=== PATIENT | male | born 1955 | race Caucasian/White ===

== ENCOUNTER 2018-03-31 14:35 | Inpatient (IN) | payer BC ==
[~2018-03-31] VITALS: Ht 160 cm; Wt 63.6 kg
[~2018-03-31 14:35] MED LIST: CARV6.2579 NGT; FLORANEX PO; FOLI-49 PO; FURO20TA3 PO; LOSA25TA2 PO; METR500T PO; MULTI PO; PANT40TA4 PO; SPIR25TA PO; THIA100T56 PO
--- NOTE | 2018-03-31 14:47 | ERD ---
ER Documentation Chief Complaint Chief Complaint HPI This is a 62-year-old bedbound trach to vent dependent full code male that prese nts to the emergency department by EMS from [facility]. Upon review of patient's previous medical records he was admitted to [facility] on March 08, 2018 for signs of alcohol withdrawal syndrome and anoxic brain injury. He was also treated that time for pneumonia. The medical records that I reviewed from the hospital indicated the patient has cardiomyopathy chronic ethanol abuse. [facility]. Just prior to arrival EMS was called as the patient appeared to have a significant amount of blood present within the oropharynx. Nurses after attempted suctioning with no improvement of his symptoms. Nursing staff did indicate that the patient has been picking at the inside of his mouth which they felt had started the bleeding. There is no coughing choking or gagging episode. The patient has not had any recent fever shaking or chills. ROS All systems reviewed and are negative except as per history of present illness. Medications Home Meds Reported Medications Cran/Vitc/Mannose/Inulin/Brom (Uti-Stat Liquid) 3,875 Mg/30 Ml Liquid, 3875 MG GTB DAILY 03/31/18 Ascorbic Acid* (Vitamin C*) 500 Mg Capsule.sa, 500 MG GTB DAILY, CAP 03/31/18 Zinc Sulfate* (Zinc Sulfate*) 220 Mg Tablet, 220 MG GTB DAILY, TAB 03/31/18 Acetaminophen* (Acetaminophen*) 650 Mg Tablet, 650 MG GTB Q4 PRN for MILD PAIN LEVEL 1-3, #30 TAB AND FEVER 03/31/18 Acetaminophen* (Acetaminophen*) 500 MG Extra Strength Tablet, 1000 MG GTB Q4 PRN for MODERATE PAIN LEVEL 4-6, TAB 03/31/18 Acetaminophen* (Acetaminophen*) 325 Mg Tablet, 650 MG GTB TRACH CHANGE PRN for PAIN, #30 TAB GIVE 30 MIN PRIOR TO CHANGE 03/31/18 Spironolactone* (Aldactone*) 25 Mg Tablet, 25 MG GTB DAILY, #30 TAB 03/31/18 Multivit/Ca Carb/B Cmplx/Fa* (Sofy-Sandoval*) 1 Tab Tab, 1 TAB GTB DAILY, TAB 03/31/18 Hydrocodone/Acetaminophen ([place] 5-325 Tablet) 1 Each Tablet, 1 EACH GTB BID, TAB 03/31/18 Midodrine* (Midodrine*) 5 Mg Tablet, 5 MG GTB BID, TAB HOLD FOR SBP ABOVE 110 03/31/18 Na Phos,M-B/Na Phos,Di-Ba (ENEMA [id number]) 133 Ml Enema, 133 ML RC EVERY TWO DAYS PRN for CONSTIPATION, ENEMA 03/31/18 Bisacodyl (Dulcolax) 10 Mg Supp.rect, 10 MG RC DAILY PRN for CONSTIPATION, SUPP.RECT 03/31/18 Carvedilol* (Carvedilol*) 25 Mg Tablet, 25 MG GTB BID, #60 TAB HOLD FOR SBP BELOW 100 OR HR BELOW 50 03/31/18 Albuterol Sulfate* (Albuterol Sulfate* Neb) 0.083%-3 Ml Neb, 2.5 MG NEB Q6 PRN for WHEEZING AND SOB, #30 VIAL 03/31/18 Albuterol Sulfate* (Albuterol Sulfate* Neb) 0.083%-3 Ml Neb, 2.5 MG NEB Q3H PRN for WHEEZING AND SOB, #30 VIAL 03/31/18 Lactobacillus Acidophilus/Pect (Acidophilus-Pectin Capsule) 1 Each Capsule, 1 EACH GTB DAILY, CAP 03/31/18 Discontinued Scripts Folic Acid* (Folic Acid*) 1 Mg Tablet, 1 MG PO DAILY for 30 Days, TAB 3 Refills Prov:GUILLERMO LUNDBERG 09/24/15 Multivitamins* (Theragran*) 1 Tab Tab, 1 TAB PO DAILY for 30 Days, TAB 3 Refills Prov:GUILLERMO LUNDBERG 09/24/15 Thiamine* (Vitamin B-1*) 100 Mg Tablet, 100 MG PO DAILY for 30 Days, TAB 3 Refills Prov:GUILLERMO LUNDBERG 09/24/15 Spironolactone* (Aldactone*) 25 Mg Tablet, 25 MG PO DAILY for 30 Days, TAB 3 Refills Prov:GUILLERMO LUNDBERG 09/24/15 Pantoprazole* (Pantoprazole*) 40 Mg Tablet.dr, 40 MG PO DAILY@06 for 30 Days Prov:GUILLERMO LUNDBERG 09/24/15 Metronidazole* (Flagyl*) 500 Mg Tablet, 500 MG PO Q8 for 8 Days, TAB Prov:GUILLERMO LUNDBERG 09/24/15 Losartan Potassium* (Cozaar*) 25 Mg Tablet, 25 MG PO BID for 30 Days, TAB 3 Refills Prov:GUILLERMO LUNDBERG 09/24/15 Lactobacillus Acidoph/Bulgaricus* (Floranex*) 1 Tab Chew, 1 TAB PO BID for 30 Days, TAB 3 Refills Prov:GUILLERMO LUNDBERG 09/24/15 Furosemide* (Furosemide*) 20 Mg Tablet, 20 MG PO DAILY for 30 Days, TAB 3 Refills Prov:GUILLERMO LUNDBERG 09/24/15 Carvedilol* (Carvedilol*) 6.25 Mg Tablet, 6.25 MG NGT BID for 30 Days, TAB 3 Refills Prov:GUILLERMO LUNDBERG 09/24/15 Allergies Allergies: Coded Allergies: No Known Allergy (Unverified , 03/31/18) PMhx/Soc History of Surgery: No Anesthesia Reaction: No Hx Neurological Disorder: No Hx Respiratory Disorders: No Hx Cardiac Disorders: Yes (htn) Hx Psychiatric Problems: No Hx Miscellaneous Medical Probl: Yes (see eval note) Hx Alcohol Use: Yes Hx Substance Use: Yes Hx Tobacco Use: No Physical Exam Vitals Vital Signs Date Temp Pulse Resp B/P (MAP) Pulse Ox O2 O2 Flow FiO2 Time Delivery Rate 03/31/18 122 31 160/87 100 17:48 (111) 03/31/18 115 30 100 50 17:32 03/31/18 123 26 100 50 15:29 03/31/18 98.9 106 18 94/63 (73) 98 14:38 Physical Exam Constitutional:Well-developed. Well-nourished. HEENT:Normocephalic. Atraumatic.Pupils were equal round reactive to light. Significant amount of bright red blood present within the oropharynx. Chapped lips that were actively bleeding..No tonsillar exudates. Neck: No nuchal rigidity. No lymphadenopathy. No posterior cervical spine tenderness or step-offs. Tracheostomy site clean dry and intact with no surrounding erythremia fluctuance or induration. Respiratory: Not using accessory muscles of respiration.Lungs were clear to auscultation bilaterally. No rhonchi. No rales. No wheezing. Cardiovascular: Regular rate regular rhythm.No murmurs. No rubs were appreciated.S1, S2 normal. Distal pulses are palpable 2+ bilaterally. GI: Abdomen was soft. Nontender. Non Distended. No pulsatile abdominal masses or bruits. No rebound. No guarding. Bowel sounds were present and normal. Muscle skeletal: Muscle atrophy of the bilateral lower extremities. Patient has limited range of motion of the right upper and lower extremity but was able to flex extend at the elbow and lift his right upper extremity against gravity. Patient has no movement of the bilateral lower extremities Skin: No petechia, no purpura. No lesions on the palms or the soles of the feet. No maculopapular rash. NEURO: Patient was alert. With open eyes in response to pain. Does not follow verbal command. Nonverbal and bedbound. Result Diagram: 03/31/18 1526 03/31/18 1526 Results 24 hrs Laboratory Tests Test 03/31/18 15:26 03/31/18 15:29 White Blood Count 9.7 10^3/ul Red Blood Count 2.59 10^6/ul Hemoglobin 7.3 g/dl Hematocrit 22.8 % Mean Corpuscular Volume 88.0 fl Mean Corpuscular Hemoglobin 28.2 pg Mean Corpuscular Hemoglobin Concent 32.0 g/dl Red Cell Distribution Width 14.7 % Platelet Count 255 10^3/UL Mean Platelet Volume 10.4 fl Immature Granulocytes % 1.000 % Neutrophils % 76.7 % Lymphocytes % 3.5 % Monocytes % 11.2 % Eosinophils % 7.3 % Basophils % 0.3 % Nucleated Red Blood Cells % 0.0 /100WBC Immature Granulocytes # 0.100 10^3/ul Neutrophils # 7.4 10^3/ul Lymphocytes # 0.3 10^3/ul Monocytes # 1.1 10^3/ul Eosinophils # 0.7 10^3/ul Basophils # 0.0 10^3/ul Nucleated Red Blood Cells # 0.0 10^3/ul Prothrombin Time 15.1 Sec Prothrombin Time Ratio 1.2 INR International Normalized Ratio 1.18 Activated Partial Thromboplast Time 41.1 Sec Sodium Level 136 mmol/L Potassium Level 5.0 mmol/L Chloride Level 106 mmol/L Carbon Dioxide Level 18 mmol/L Anion Gap 12 Blood Urea Nitrogen 85 mg/dl Creatinine 1.41 mg/dl Est Glomerular Filtrat Rate mL/min 51 mL/min Glucose Level 95 mg/dl Calcium Level 8.7 mg/dl Total Bilirubin 0.0 mg/dl Direct Bilirubin 0.00 mg/dl Indirect Bilirubin 0.0 mg/dl Aspartate Amino Transf (AST/SGOT) 60 IU/L Alanine Aminotransferase (ALT/SGPT) 13 IU/L Alkaline Phosphatase 90 IU/L Troponin I < 0.012 ng/ml Total Protein 8.2 g/dl Albumin 3.5 g/dl Globulin 4.70 g/dl Albumin/Globulin Ratio 0.74 Amylase Level 720 U/L Lipase 4891 U/L POC Venous Lactate 1.1 mmol/L Current Medications Medications Dose Sig/Epi Start Time Status Last (Trade) Ordered Route PRN Stop Time Admin Dose Reason Admin Lorazepam 1 mg ONCE ONCE 03/31/18 DC 03/31/18 (Ativan) IV 17:00 03/31/18 16:56 17:01 Lorazepam 2 mg ONCE ONCE 03/31/18 DC 03/31/18 (Ativan) IV 18:00 03/31/18 17:57 18:01 Sodium 1,000 ml @ Q1H STAT 03/31/18 DC 03/31/18 Chloride 1,000 mls/hr IV 17:51 03/31/18 18:03 18:50 Ondansetron 4 mg ER BRIDGE 03/31/18 HCl (Zofran PRN IV 18:00 04/01/18 Inj) NAUSEA AND/OR 17:59 VOMITING 650 mg ER BRIDGE 03/31/18 Acetaminophen PRN PO MILD 18:00 04/01/18 (Tylenol PAIN(1-3)OR 17:59 Tab) ELEVATED TEMP Sodium 1,000 ml @ Q1H STAT 03/31/18 DC Chloride 1,000 mls/hr IV 17:58 03/31/18 18:57 1,000 mg Q4 PRN PO 03/31/18 Acetaminophen MODERATE PAIN 18:00 (Tylenol LEVEL 4-6 Tab) 650 mg Q4 PRN 03/31/18 Acetaminophen GTB MILD 18:00 (Tylenol PAIN LEVEL Tab) 1-3 Albuterol 2.5 mg Q3H PRN 03/31/18 (Proventil NEB WHEEZING 18:00 0.083% (Neb)) AND SOB Albuterol 2.5 mg Q6 PRN 03/31/18 (Proventil NEB WHEEZING 18:00 0.083% (Neb)) AND SOB Ascorbic 500 mg DAILY GTB 04/01/18 Acid 09:00 (Vitamin C) Bisacodyl 10 mg DAILY PRN 03/31/18 (Dulcolax AL 18:00 Supp) CONSTIPATION Carvedilol 25 mg BID GTB 03/31/18 (Coreg) 21:00 Midodrine 5 mg BID GTB 03/31/18 (Proamatine) 21:00 Multivit/Ca 1 tab DAILY GTB 04/01/18 Carb/ B 09:00 Cmplx/FA/Pren at (Sofy-Sandoval) Zinc 220 mg DAILY GTB 04/01/18 Sulfate 09:00 (Zinc Sulfate) 1,000 ml @ Q24H IV 03/31/18 Dextrose/Sodi 40 mls/hr 18:01 um Chloride IV Flush 3 ml PER 03/31/18 (NS 3 ml) PROTOCOL IV 18:30 Ondansetron 4 mg Q6H PRN 03/31/18 HCl (Zofran IV NAUSEA 18:30 Inj) AND/OR VOMITING 650 mg Q6H PRN 03/31/18 Acetaminophen PO PAIN 18:30 (Tylenol LEVEL 1-3 OR Tab) FEVER 650 mg Q6H PRN 03/31/18 Acetaminophen [place] PAIN 18:30 (Tylenol LEVEL 1-3 OR Supp) FEVER Docusate 100 mg Q12H PRN 03/31/18 Sodium PO 18:30 (Colace) CONSTIPATION 40 mg DAILY@06 04/01/18 Pantoprazole IV 06:00 (Protonix Iv) Procedures/MDM This is a 8-year-old male with anoxic brain injury trach to vent dependent. The patient presented to the emergency department with a significant amount of blood present within the oropharynx. The patient had partial dentures that were removed on the lower aspect of the mouth by myself. It appeared that the metal had cut the lower gingiva mucosa over the region of his molars. After significant suctioning the bleeding had subsided. The patient however had multiple comorbidities with acute on chronic kidney failure. He showed signs of severe clinical dehydration was hypotensive. He received a total of 2 L boluses of normal saline and his blood pressure had significantly improved. The patient appeared very agitated did receive IV Ativan. This improved his tachycardia. The patient did not appear to have an infectious process at this time is chest radiograph was normal. However I did obtain blood cultures and urine cultures the patient has an indwelling Schwartz. He is receiving antibiotics intravenously through his right upper extremity PICC line at [facility] and the family states this was to treat a pneumonia. The patient will be admitted in serious condition under the care of Dr. Live. Dr. Darden kindly stated he would be willing to be consulted and see the patient upon admission if there is any further development of further bleeding of his gingival mucosa. Critical Care: Time: 40 minutes Treatments/Evaluations: Close monitoring and treatment of unstable vital signs, cardiorespiratory, and neurologic status, while maintaining tight balance of fluid, respiratory, and cardiac interventions. Time does not include performing any of the above billable procedures. Departure Diagnosis: Primary Impression: Active bleeding Additional Impressions: CKD (chronic kidney disease) Chronic kidney disease stage: unspecified stage Qualified Codes: N18.9 - Chronic kidney disease, unspecified Acute prerenal azotemia Condition: Serious YULIYA BEASLEY MD Mar 31, 2018 14:47
[2018-03-31] MEDS ORDERED: LACT1CAP4 GTB (16:35)
[2018-03-31] MEDS ORDERED: ALBU2.5V3 NEB ×2 (16:36)
[2018-03-31] MEDS ORDERED: BISA10SU55 RC (16:38)
[2018-03-31] MEDS ORDERED: CARV25TA79 GTB (16:38)
[2018-03-31] MEDS ORDERED: NA P133E10 RC (16:39)
[2018-03-31] MEDS ORDERED: MIDO5TAB GTB (16:40)
[2018-03-31] MEDS ORDERED: NEPH GTB (16:41)
[2018-03-31] MEDS ORDERED: HYDR-4011 GTB (16:41)
[2018-03-31] MEDS ORDERED: SPIR25TA GTB (16:42)
[2018-03-31] MEDS ORDERED: ACET-2047 GTB (16:45)
[2018-03-31] MEDS ORDERED: ACET325T45 GTB (16:45)
[2018-03-31] MEDS ORDERED: ACET-141 GTB (16:45)
[2018-03-31] MEDS ORDERED: ZINC220T GTB (16:46)
[2018-03-31] MEDS ORDERED: ASCO500C7 GTB (16:46)
[2018-03-31] MEDS ORDERED: CRAN3875 GTB (16:47)
[2018-03-31] MEDS ORDERED: LORAZEPAM 2 MG INJ IV ONE ×2 (17:00→18:00)
[2018-03-31] MEDS ORDERED: SOD CHLORIDE 0.9% 1,000 ML IV STA ×2 (17:51→17:58)
[2018-03-31] MEDS ORDERED: ALBUTEROL 0.083% (NEB) 2.5 MG/3 ML AMP NEB PRN (18:00)
[2018-03-31] MEDS ORDERED: ONDANSETRON 4 MG INJ IV PRN ×2 (18:00→18:30)
[2018-03-31] MEDS ORDERED: ACETAMINOPHEN 325 MG TAB PO PRN (18:00)
[2018-03-31] MEDS ORDERED: BISACODYL 10 MG SUPP PR PRN (18:00)
--- NOTE | 2018-03-31 18:06 | QN ---
Documentation Comment A/P VDRF ANEMIA CAREY MOUTH BLEEDING LOW EF NICMP PLAN PER ORDER GARFIELD MOREAU MD Mar 31, 2018 18:06
[2018-03-31] MEDS ORDERED: NACL 0.9% 3 ML SYG IV SCH (18:30)
[2018-03-31] MEDS ORDERED: DOCUSATE SODIUM 100 MG CAP PO PRN (18:30)
[2018-03-31] MEDS ORDERED: ACETAMINOPHEN 650 MG SUPP PR ONE (19:30)
[2018-03-31] MEDS ORDERED: MIDAZOLAM 1 MG/ML 2 ML INJ IV ONE (19:30)
--- NOTE | 2018-03-31 23:01 | HP ---
Date/Time of Note Date/Time of Note DATE: 03/31/18 TIME: 22:52 Assessment/Plan VTE Prophylaxis SCD applied (from Nsg): Yes SCD contraindicated: other Pharmacological prophylaxis: other Lines/Catheters IV Catheter Type (from Nrsg): Mid Line Assessment/Plan Hospital Course VDRF ANEMIA' CKD DILATED CARDIOMYOPATHY S/P MOUTH BLEEDING HX ALCOHOL ABUSE PLAN PRBC PER ORDER Result Diagram: 03/31/18 1526 03/31/18 1526 Results 24hrs Laboratory Tests Test 03/31/18 15:26 03/31/18 15:29 White Blood Count 9.7 # Red Blood Count 2.59 #L Hemoglobin 7.3 L Hematocrit 22.8 L Mean Corpuscular Volume 88.0 Mean Corpuscular Hemoglobin 28.2 L Mean Corpuscular Hemoglobin Concent 32.0 Red Cell Distribution Width 14.7 #H Platelet Count 255 Mean Platelet Volume 10.4 # Immature Granulocytes % 1.000 H Neutrophils % 76.7 Lymphocytes % 3.5 L Monocytes % 11.2 H Eosinophils % 7.3 H Basophils % 0.3 Nucleated Red Blood Cells % 0.0 Immature Granulocytes # 0.100 H Neutrophils # 7.4 Lymphocytes # 0.3 L Monocytes # 1.1 H Eosinophils # 0.7 H Basophils # 0.0 Nucleated Red Blood Cells # 0.0 Prothrombin Time 15.1 H Prothrombin Time Ratio 1.2 INR International Normalized Ratio 1.18 Activated Partial Thromboplast Time 41.1 H Sodium Level 136 Potassium Level 5.0 Chloride Level 106 Carbon Dioxide Level 18 L Anion Gap 12 Blood Urea Nitrogen 85 H Creatinine 1.41 H Est Glomerular Filtrat Rate mL/min 51 L Glucose Level 95 Calcium Level 8.7 Total Bilirubin 0.0 L Direct Bilirubin 0.00 Indirect Bilirubin 0.0 Aspartate Amino Transf (AST/SGOT) 60 H Alanine Aminotransferase (ALT/SGPT) 13 Alkaline Phosphatase 90 Troponin I < 0.012 Total Protein 8.2 H Albumin 3.5 Globulin 4.70 H Albumin/Globulin Ratio 0.74 Amylase Level 720 H Lipase 4891 H POC Venous Lactate 1.1 HPI/ROS Admit Date/Time Admit Date/Time Hx of Present Illness VENT DEPENDENT RES FAILURE SENT IN FOR MOUTH BLEEDING D./W FAMILY PT ENCEPHALOPATHIC ROS Subjective hx not possible: pt non-verbal PMH/Family/Social Past Medical History Medical History: congestive heart failure, coronary artery disease, hypertension, renal disease, other Medications Current Medications Ondansetron HCl (Zofran Inj) 4 mg ER BRIDGE PRN IV NAUSEA AND/OR VOMITING; Start 03/31/18 at 18:00; Stop 04/01/18 at 17:59 Acetaminophen (Tylenol Tab) 650 mg ER BRIDGE PRN PO MILD PAIN(1-3)OR ELEVATED TEMP; Start 03/31/18 at 18:00; Stop 04/01/18 at 17:59 Acetaminophen (Tylenol Tab) 1,000 mg Q4 PRN PO MODERATE PAIN LEVEL 4-6; Start 03/31/18 at 18:00 Acetaminophen (Tylenol Tab) 650 mg Q4 PRN GTB MILD PAIN LEVEL 1-3; Start 03/31/18 at 18:00 Albuterol (Proventil 0.083% (Neb)) 2.5 mg Q3H PRN NEB WHEEZING AND SOB; Start 03/31/18 at 18:00 Albuterol (Proventil 0.083% (Neb)) 2.5 mg Q6 PRN NEB WHEEZING AND SOB; Start 03/31/18 at 18:00 Ascorbic Acid (Vitamin C) 500 mg DAILY GTB ; Start 04/01/18 at 09:00 Bisacodyl (Dulcolax Supp) 10 mg DAILY PRN [place] CONSTIPATION; Start 03/31/18 at 18:00 Carvedilol (Coreg) 25 mg BID GTB ; Start 03/31/18 at 21:00 Midodrine (Proamatine) 5 mg BID GTB ; Start 03/31/18 at 21:00 Multivit/Ca Carb/ B Cmplx/FA/Prenat (Sofy-Sandoval) 1 tab DAILY GTB ; Start 04/01/18 at 09:00 Zinc Sulfate (Zinc Sulfate) 220 mg DAILY GTB ; Start 04/01/18 at 09:00 Dextrose/Sodium Chloride 1,000 ml @ 40 mls/hr Q24H IV ; Start 03/31/18 at 18:01 IV Flush (NS 3 ml) 3 ml PER PROTOCOL IV ; Start 03/31/18 at 18:30 Ondansetron HCl (Zofran Inj) 4 mg Q6H PRN IV NAUSEA AND/OR VOMITING; Start 03/31/18 at 18:30 Acetaminophen (Tylenol Tab) 650 mg Q6H PRN PO PAIN LEVEL 1-3 OR FEVER; Start 03/31/18 at 18:30 Acetaminophen (Tylenol Supp) 650 mg Q6H PRN [place] PAIN LEVEL 1-3 OR FEVER; Start 03/31/18 at 18:30 Docusate Sodium (Colace) 100 mg Q12H PRN PO CONSTIPATION; Start 03/31/18 at 18:30 Pantoprazole (Protonix Iv) 40 mg DAILY@06 IV ; Start 04/01/18 at 06:00 Coded Allergies: No Known Allergy (Unverified , 03/31/18) Past Surgical History Past Surgical Hx: no surgical history, other (PEG AND TRACHEOSTOMY) Family History Significant Family History: no pertinent family hx Social History Alcohol Use: other (HX) Smoking Status: Never smoker Exam/Review of Systems Vital Signs Vitals Vital Signs Date Temp Pulse Resp B/P (MAP) Pulse Ox O2 O2 Flow FiO2 Time Delivery Rate 03/31/18 117 30 100 40 21:11 03/31/18 147/90 [place] 20:46 (109) l Ventilato r 03/31/18 102.5 19:27 Exam Constitutional: non-verbal, other (MOUTH REDNESS+) Head: normocephalic Eyes: nl conjunctiva, EOMI Neck: supple, non-tender; No jvd, No masses, No thyromegaly Respiratory: clear to auscultation, normal air movement; No diminished breath sounds, No intercostal retraction Cardiovascular: regular rate and rhythm Gastrointestinal: soft, nl liver, spleen, non-tender, bowel sounds (+) Musculoskeletal: muscle weakness Extremities: cyanosis; No calf tenderness, No clubbing, No edema, No pitting pedal edema, No tenderness Neurological: lethargic GARFIELD MOREAU MD Mar 31, 2018 23:01
[2018-03-31] MEDS: ACETAMINOPHEN 325 MG TAB GTB PRN (23:41)
[2018-04-01] VITALS (32 sets, daily range): BP systolic 78–114; BP diastolic 50–85; PULSE 78–116; RESP 17–36; Ht 160 cm; Wt 63.6 kg
[2018-04-01] MEDS: MIDODRINE 5 MG TAB GTB SCH ×3 (01:04→21:42)
[2018-04-01] MEDS ORDERED: VANCOMYCIN 1 GM in SOD CHLORIDE 0.9% 250 ML IVPB ONE (01:30)
[2018-04-01] MEDS ORDERED: VANCOMYCIN 1 GM in 250 ML IVPB ONE (02:30)
[2018-04-01] MEDS: PANTOPRAZOLE 40 MG INJ IV SCH (05:46)
[2018-04-01] MEDS: DEXTROSE 5%-0.45% NACL 1,000 ML IV SCH ×3 (05:46→21:50)
[2018-04-01] MEDS ORDERED: CEFTRIAXONE 1 GM/50 ML (PMX) 50 ML IVPB SCH (09:00)
[2018-04-01] MEDS: MULTIVIT/CA CARB/B CMPLX/FA TAB GTB SCH (09:45)
[2018-04-01] MEDS: ZINC SULFATE 220 MG CAP GTB SCH (09:45)
[2018-04-01] MEDS ORDERED: INFLUENZA VIRUS VACCINE 0.5 ML (DISPENSING) IM* ONE (10:00)
[2018-04-01] MEDS: ASCORBIC ACID 500 MG TAB GTB SCH (10:30)
[2018-04-01] MEDS ORDERED: SOD CHLORIDE 0.9% 250 ML IV* ONE (12:45)
[2018-04-01] MEDS ORDERED: VANCOMYCIN IV PER PHARMACY XX SCH (13:00)
[2018-04-01] MEDS ORDERED: NA POLYST SULFON 15 GM/60 ML BTL PO ONE (13:00)
--- NOTE | 2018-04-01 13:05 | PN ---
Date/Time of Note Date/Time of Note DATE: 04/01/18 TIME: 12:58 Assessment/Plan VTE Prophylaxis [place] [facility] risk: 8 [place]CD [place] [facility] Yes Pharmacological prophylaxis: NA/contraindicated Pharm contraindication: low risk/ambulating Lines/Catheters [facility] PICC Line Central line still needed: Yes Urinary Cath still in place: Yes Reason Cath still needed: urinary retention Assessment/Plan Hospital Course 62 y/o with # Oral bleeding # Fevers with hx Pneumonia +UTI and ? Pancreatitis # Blood loss anemia due to #1 # VDRF # CKD #DILATED CARDIOMYOPATHY # HX ALCOHOL ABUSE Plan - prbc - panculture - iv abx with vanco/cefepime - PICC line infection? - id consult - dr jimenez ENT CALLED - pul consult> vent management - no blood thinners - npo/iv fluids - kayexate Result Diagram: 04/01/18 0555 04/01/18 0555 Results 24hrs Laboratory Tests Test 03/31/18 15:26 03/31/18 15:29 04/01/18 01:42 04/01/18 05:55 White Blood Count 9.7 # 11.4 H Red Blood Count 2.59 #L 2.45 L Hemoglobin 7.3 L 6.9 *L Hematocrit 22.8 L 21.8 L Mean Corpuscular 88.0 89.0 Volume Mean Corpuscular 28.2 L 28.2 L Hemoglobin Mean Corpuscular 32.0 31.7 L Hemoglobin Concent Red Cell 14.7 #H 14.6 H Distribution Width Platelet Count 255 238 Mean Platelet 10.4 # 10.3 Volume Immature 1.000 H 1.600 H Granulocytes % Neutrophils % 76.7 85.7 H Lymphocytes % 3.5 L 2.8 L Monocytes % 11.2 H 5.8 Eosinophils % 7.3 H 3.9 Basophils % 0.3 0.2 Nucleated Red 0.0 0.0 Blood Cells % Immature 0.100 H 0.180 H Granulocytes # Neutrophils # 7.4 9.8 H Lymphocytes # 0.3 L 0.3 L Monocytes # 1.1 H 0.7 Eosinophils # 0.7 H 0.4 Basophils # 0.0 0.0 Nucleated Red 0.0 0.0 Blood Cells # Prothrombin Time 15.1 H Prothrombin Time 1.2 Ratio INR International 1.18 Normalized Ratio Activated 41.[address] Time Sodium Level 136 139 Potassium Level 5.0 5.7 H Chloride Level 106 115 H Carbon Dioxide 18 L 16 L Level Anion Gap 12 8 Blood Urea 85 H 77 H Nitrogen Creatinine 1.41 H 1.29 H Est Glomerular 51 L 57 L Filtrat Rate mL/min Glucose Level 95 102 Calcium Level 8.7 8.5 Total Bilirubin 0.0 L 0.0 L Direct Bilirubin 0.00 0.00 Indirect Bilirubin 0.0 0.0 Aspartate Amino 60 H 63 H Transf (AST/SGOT) Alanine 13 13 Aminotransferase ( ALT/SGPT) Alkaline 90 83 Phosphatase Troponin I < 0.012 Total Protein 8.2 H 7.9 Albumin 3.5 3.3 Globulin 4.70 H 4.60 H Albumin/Globulin 0.74 0.71 Ratio Amylase Level 720 H Lipase 4891 H POC Venous Lactate 1.1 Urine Color YELLOW Urine Clarity SLIGHTLY CLOUDY A Urine pH 5.0 Urine Specific 1.011 [place] Urine Ketones NEGATIVE Urine Nitrite NEGATIVE Urine Bilirubin NEGATIVE Urine Urobilinogen NEGATIVE Urine Leukocyte NEGATIVE Esterase Urine Microscopic > 182 H RBC Urine Microscopic 17 H WBC Urine Bacteria FEW A Urine Mucus FEW A Urine Yeast MODERATE A (Budding) Urine Hemoglobin 3+ H Urine Glucose NEGATIVE Urine Total 1+ H Protein Segmented 74 Neutrophils % (Manual) Band Neutrophils % 17 H (Manual) Lymphocytes % 2 L (Manual) Monocytes % 2 (Manual) Eosinophils % 4 (Manual) Metamyelocytes % 1 H (manual) Neutrophils # 8.7 H (Manual) Band Neutrophils # 1.9 H Lymphocytes 0.2 L (Manual) Monocytes # 0.2 L (Manual) Metamyelocytes # 0.1 H Platelet Estimate NORMAL Giant Platelets 1 H Polychromasia 1+ Anisocytosis 1+ Microcytosis 1+ Spherocytes 1+ Hemoglobin A1c 5.9 Subjective 24 Hr Interval Summary Free Text/Dictation Pt is tachynic noted to have bloody drainage still from mouth fevers Exam/Review of Systems Vital Signs Vitals Vital Signs Date Temp Pulse Resp B/P (MAP) Pulse Ox O2 O2 Flow FiO2 Time Delivery Rate 04/01/18 100 12:56 04/01/18 98.3 27 114/75 100 11:19 (88) 04/01/18 30 11:15 04/01/18 Mechanical 02:45 Ventilator Intake and Output 03/31/18 03/31/18 04/01/18 1414:59 22:59 06:59 IntakeIntake Total 330 ml BalanceBalance 330 ml Exam Constitutional:Well-developed. Well-nourished., tachpnic HEENT:Normocephalic. Atraumatic.Pupils were equal round reactive to light. Significant amount of bright red blood present within the oropharynx. Chapped lips that were actively bleeding..+old dried blood around lips Neck: . Tracheostomy site clean dry and intact Respiratory: lungs clear Cardiovascular: tachycardic GI: Abdomen was soft. Nontender. Non Distended. No pulsatile abdominal masses or bruits. No rebound. No guarding. Bowel sounds were present and normal. Muscle skeletal: Muscle atrophy of the bilateral lower extremities. Patient has limited range of motion of the right upper and lower extremity but was able to flex extend at the elbow and lift his right upper extremity against gravity. Patient has no movement of the bilateral lower extremities Medications Medications Current Medications Ondansetron HCl (Zofran Inj) 4 mg ER BRIDGE PRN IV NAUSEA AND/OR VOMITING; Start 03/31/18 at 18:00; Stop 04/01/18 at 17:59 Acetaminophen (Tylenol Tab) 650 mg ER BRIDGE PRN PO MILD PAIN(1-3)OR ELEVATED TEMP; Start 03/31/18 at 18:00; Stop 04/01/18 at 17:59 Acetaminophen (Tylenol Tab) 1,000 mg Q4 PRN PO MODERATE PAIN LEVEL 4-6; Start 03/31/18 at 18:00 Acetaminophen (Tylenol Tab) 650 mg Q4 PRN GTB MILD PAIN LEVEL 1-3 Last administered on 03/31/18at 23:41; Admin Dose 650 MG; Start 03/31/18 at 18:00 Albuterol (Proventil 0.083% (Neb)) 2.5 mg Q3H PRN NEB WHEEZING AND SOB; Start 03/31/18 at 18:00 Albuterol (Proventil 0.083% (Neb)) 2.5 mg Q6 PRN NEB WHEEZING AND SOB; Start 03/31/18 at 18:00 Ascorbic Acid (Vitamin C) 500 mg DAILY GTB Last administered on 04/01/18at 10:30; Admin Dose 500 MG; Start 04/01/18 at 09:00 Bisacodyl (Dulcolax Supp) 10 mg DAILY PRN [place] CONSTIPATION; Start 03/31/18 at 18:00 Carvedilol (Coreg) 25 mg BID GTB Last administered on 04/01/18 09:46; Admin Dose 25 MG; Start 03/31/18 at 21:00 Midodrine (Proamatine) 5 mg BID GTB Last administered on 04/01/18 09:46; Admin Dose 5 MG; Start 03/31/18 at 21:00 Multivit/Ca Carb/ B Cmplx/FA/Prenat (Sofy-Sandoval) 1 tab DAILY GTB Last administered on 04/01/18 09:45; Admin Dose 1 TAB; Start 04/01/18 at 09:00 Zinc Sulfate (Zinc Sulfate) 220 mg DAILY GTB Last administered on 04/01/18at 09:45; Admin Dose 220 MG; Start 04/01/18 at 09:00 Dextrose/Sodium Chloride 1,000 ml @ 40 mls/hr Q24H IV Last administered on 04/01/18 05:46; Admin Dose 40 MLS/HR; Start 03/31/18 at 18:01 IV Flush (NS 3 ml) 3 ml PER PROTOCOL IV ; Start 03/31/18 at 18:30 Ondansetron HCl (Zofran Inj) 4 mg Q6H PRN IV NAUSEA AND/OR VOMITING; Start 03/31/18 at 18:30 Acetaminophen (Tylenol Tab) 650 mg Q6H PRN PO PAIN LEVEL 1-3 OR FEVER; Start 03/31/18 at 18:30 Acetaminophen (Tylenol Supp) 650 mg Q6H PRN [place] PAIN LEVEL 1-3 OR FEVER; Start 03/31/18 at 18:30 Docusate Sodium (Colace) 100 mg Q12H PRN [place] CONSTIPATION; Start 03/31/18 at 18:30 Pantoprazole (Protonix Iv) 40 mg DAILY@06 IV Last administered on 04/01/18at 05:46; Admin Dose 40 MG; Start 04/01/18 at 06:00 Vancomycin HCl (Vanco Iv Per Pharmacy) VANCOMYCIN PER PHARMACY PER PROTOCOL XX ; Start 04/01/18 at 13:00 Cefepime HCl 50 ml @ 100 mls/hr Q12 IVPB ; Start 04/01/18 at 21:00 Sodium Polystyrene Sulfonate (Kayexalate) 30 gm ONCE ONCE PO ; Start 04/01/18 at 13:00; Stop 04/01/18 at 13:01; Status TAMARA HUMPHREY MD Apr 01, 2018 13:05
[2018-04-01] MEDS ORDERED: ACETAMINOPHEN 325 MG TAB GTB ONE (13:30)
--- NOTE | 2018-04-01 14:59 | CONS ---
DATE OF ADMISSION: 03/31/2018 DATE OF CONSULTATION: 04/01/2018 TYPE OF CONSULTATION: Infectious disease. REASON FOR CONSULTATION: Antibiotic management. HISTORY OF PRESENT ILLNESS: Juan Manuel Penn is a 62-year-old male who comes in with numerous problem s and is being seen for antibiotic management. Past problems include: 1. Ventilator-dependent respiratory failure. 2. Status post tracheostomy. 3. The patient was admitted to [facility] on 03/08 for alcohol withdrawal syndrome. 4. Anoxic brain injury. 5. Pneumonia. 6. Cardiomyopathy. Patient is residing in [facility]. Patient appeared to have a sig nificant amount of blood present within the oropharynx and therefore he was sent to the Emergency [facility]. He has not had fever or chills. Nursing staff indicated that the patient had been picking of the inside of his mouth which they felt may have started the bleeding. On admission, white count 9.7, H and H 7.3 and 22.8, platelet count 255,000. BUN and creatinine 85/1 .4. PAST MEDICAL HISTORY: OPERATIONS: Status post tracheostomy. FAMILY HISTORY: Noncontributory. SOCIAL HISTORY: He does not smoke, drink or abused drugs although in the past he had alcohol abuse, substance abuse, but he does not smoke. ALLERGIES: None to penicillin, sulfa or foods. MEDICATIONS: Per chart. REVIEW OF SYSTEMS: Noncontributory. PHYSICAL EXAMINATION: GENERAL: The patient is well-developed, well-nourished male who is essentially nonverbal, in no acut e distress. VITAL SIGNS: Stable. He is afebrile. SKIN: Without generalized rash. HEENT: Within normal limits. NECK: Tracheostomy in place. Site is clean and dry. Lymph nodes, none palpable. CHEST: Decreased breath sounds at the bases. HEART: Without murmur or gallop. ABDOMEN: Soft and nontender, without organosplenomegaly or masses. EXTREMITIES: Without cyanosis, clubbing, or edema. He has muscle atrophy in lower extremities bilat erally. RECTAL AND GENITAL: Deferred. NEUROLOGIC: No focal neurological abnormality. The patient is nonverbal, does not follow verbal com mands and is bedbound. IMPRESSION AND PLAN: The patient is a 62-year-old male with anoxic brain damage and is ventilator de pendent. He had partial dentures that were removed from the lower aspect of the mouth. The metal massey d cut to the lower gingival mucosa over the region of his molars, bleeding subsided after suctioning; however, he has acute on chronic renal failure. He has clinical dehydration and hypotension. He r eceived 2 liters of normal saline. His chest x-ray was normal. Blood cultures were done. Urine cul tures were done. He is receiving antibiotics through a PICC line to treat the pneumonia. His chest x-ray currently is relatively clear. He has had fevers though currently he is afebrile. He has urin irena catheter in place for urinary retention. He was pancultured. He is placed on IV antibiotics wit h vancomycin and cefepime. His blood cultures are pending. White count is 11.4 today. We will awai t the results of his blood cultures, continue him on vancomycin and cefepime as per Dr. Rebollar. I wi ll dictate my findings to Dr. Moreau and Dr. Rebollar. We will await culture reports. Dictated By: FRANCK LOZANO MD, JD/MELISA Conf#: [id number] DID#: [id number] CC: GARFIELD MOREAU MD;*EndCC*
[2018-04-01] MEDS ORDERED: TOBRAMYCIN 80 MG INJ IV ONE (18:00)
[2018-04-01] MEDS ORDERED: SOD CHLORIDE 0.9% 250 ML IV ONE (18:00)
[2018-04-01] MEDS ORDERED: SOD CHLORIDE 0.9% 500 ML IV ONE (19:30)
[2018-04-01] MEDS ORDERED: NORepinephrine 8MG/250 ML (PMX 250 ML ONE (19:49)
[2018-04-01] MEDS ORDERED: TOBRAMYCIN 100 MG in SOD CHLORIDE 0.9% 50 ML IVPB SCH (20:00)
[2018-04-01] MEDS ORDERED: NORepinephrine 8MG/250 ML (PMX 250 ML IV SCH (21:00)
[2018-04-01] MEDS: LORAZEPAM 4 MG/ML VIAL IV PRN (21:44)
[2018-04-01] MEDS: ACETAMINOPHEN 650 MG SUPP PR PRN (21:44)
[2018-04-01] MEDS: CEFEPIME 1GM/50 ML (PMX) 50 ML IVPB SCH (21:44)
[2018-04-02] VITALS (41 sets, daily range): BP systolic 84–150; BP diastolic 62–98; PULSE 68–140; RESP 13–37
[2018-04-02] MEDS ORDERED: VANCOMYCIN 1.25 GM in SOD CHLORIDE 0.9% 250 ML IVPB SCH ×2
--- NOTE | 2018-04-02 00:03 | CONS ---
DATE OF ADMISSION: 03/31/2018 DATE OF CONSULTATION: 04/01/2018 SERVICE: Otolaryngology. REASON FOR CONSULTATION: Oral bleeding. CONSULTING PHYSICIAN: Dr. Reblolar. CHIEF COMPLAINT: Oral bleeding. HISTORY OF PRESENT ILLNESS: This is a 62-year-old gentleman status post tracheotomy with history of anoxic brain injury, pneumonia, and cardiomyopathy who has recently been treated for alcohol withdrawal syndrome and resides in [facility]. The patient was noted to have bleeding from the mouth and was sent to the emergency room for further assessment. In discussion with the family, they report that procedures were being done in regards to his dentures, and the lower partials produced a cut of the gingival mucosa. The bleeding has subsequently subsided. There is concern due to some bloody secretions in the tracheostomy that require further evaluation. Prior to my evaluation this evening, the patient was transferred to the intensive care unit due to hypotension. The patient is otherwise nonverbal and details are gathered in the patient's electronic medical record. PAST MEDICAL HISTORY: 1. Ventilator-dependent respiratory failure. 2. Anoxic brain injury. 3. Cardiomyopathy. 4. Pneumonia. 5. Chronic kidney disease. 6. Anemia. 7. History of alcohol abuse. PAST SURGICAL HISTORY: Tracheotomy. FAMILY HISTORY: No pertinent family history of head and neck carcinoma. SOCIAL HISTORY: Never smoked. Alcohol use. ALLERGIES: NO KNOWN ALLERGIES. MEDICATIONS: 1. Vancomycin. 2. Cefepime. 3. Norepinephrine. 4. Lorazepam. 5. Morphine. 6. Tobramycin 7. Pantoprazole 8. Carvedilol. 9. Midodrine. 10. Zofran. 11. Tylenol. 12. Colace. 13. Albuterol. 14. Bisacodyl. REVIEW OF SYSTEMS: Cannot be completed, non-verbal. PHYSICAL EXAMINATION: The patient underwent a physical examination as described below. The pertinent positive and negative findings are summarized after the description of the examination. Constitutional: The patient's developmental and nutritional status were assessed. The patient's voice quality was assessed. Head and Face: The head and face were inspected for deformities. The salivary glands were palpated. Facial strength was assessed bilaterally. Eyes: Extraocular movements and primary gaze alignment were assessed. Ears, Nose, Mouth & Throat: The external auditory canals and pinnae were examined. The nasal septum, mucosa, and turbinates were inspected by anterior rhinoscopy. The lips, teeth, and gums were examined for abnormalities. The oral mucosa, tongue, palate, tonsils, lateral and posterior pharynx were inspected for the presence of asymmetry or mucosal lesions. Neck: The tracheal position was noted, and the neck was palpated to determine if there were any asymmetries, abnormal neck masses, or thyromegaly. Respiratory: The nature of the breathing and chest expansion/symmetry was observed. Cardiovascular: The patient was examined to determine the presence of any edema or jugular venous distension. Abdomen: The contour of the abdomen was noted. Lymphatic: The patient was examined for supraclavicular lymphadenopathy. Musculoskeletal: The patient was inspected for the presence of skeletal deformities. Extremities: The extremities were examined for any clubbing or cyanosis. Skin: The skin was examined for inflammatory or neoplastic conditions. Neurologic: The patient's orientation, mood, and affect were noted. The cranial nerve functions were examined (II-VII, IX-XII) Pertinent positive and negative findings on physical examination: EARS: AU pinnae within normal limits. No otorrhea. External auditory canals clear. Tympanic membranes intact. NOSE: Grossly normal external appearance. Normal mucosa. No epistaxis or rhinorrhea. ORAL CAVITY/OROPHARYNX: Dry crusted blood mostly along the lower lip with a small amount along the upper lip and lower teeth. Poor dentition. Moist mucous membranes. Tongue midline. Uvula midline. No palate deviation. No mucosal lesions observed. NECK: Tracheostomy tube secured with soft ties and connected to the ventilator circuit. No obvious swelling or adenopathy. LABORATORY DATA: WBC 11.4, hemoglobin 6.9, hematocrit 21.8, platelet 238. Other lab values reviewed. DIAGNOSTIC IMAGING: Chest x-ray, 03/31/2018. Cardiomegaly, otherwise unremarkable chest x-ray. PROCEDURE: Tracheobronchoscopy through established tracheostomy. INDICATIONS: Tracheostomy dependence; bloody tracheostomy secretions. PROCEDURAL DETAIL: A fiberoptic bronchoscope was passed through the tracheotomy into the trachea. Abnormalities were noted. The kathy was visualized, followed by further insertion of the scope to the main stem bronchus level to evaluate the bronchi as well as the orifices of the subsegmental bronchi. Having completed this, the operation was completed and the scope withdrawn atraumatically. SURGEON: Meet Leon MD, S. ENDOSCOPIC FINDINGS: TRACHEOSTOMA: Well maintained, clean, dry, no granulation tissue. TRACHEA: Patent, no granulation tissue, trace bloody secretions. KATHY: Sharp, no lesion, minimal secretions. MAIN STEM BRONCHI: Free of obstruction, minimal secretions. COMPLICATIONS: None. ESTIMATED BLOOD LOSS: None. PROCEDURE NOTE: INDICATIONS: Bleeding from mouth, assess for occult bleeding source. PROCEDURAL DETAIL: The nasal cavity was decongested with 1% phenylephrine, and anesthesia was obtained with 2% topical tetracaine. A fiberoptic endoscope was introduced transnasally. The endoscope was later withdrawn and the patient tolerated the procedure well. SURGEON: Meet Leon MD, S PROCEDURE: Fiberoptic laryngoscopy. ENDOSCOPIC FINDINGS: NASOPHARYNX: Eustachian tube orifices clear. Nasopharynx clear. No bleeding. OROPHARYNX: Base of tongue, vallecula, and pharyngeal pool clear. HYPOPHARYNX: Post-cricoid, piriform sinuses, and posterior pharyngeal wall without apparent lesion. Moderate amount of secretions. No bleeding noted. SUPRAGLOTTIS: Arytenoid, A-E folds, and epiglottis with moderate amount of secretions. GLOTTIS: View was obstructed due to secretions in the supraglottis. COMPLICATIONS: None. ESTIMATED BLOOD LOSS: None. ASSESSMENT AND PLAN: This is a 62-year-old gentleman with history of tracheostomy dependence. He had recent bleeding from the mouth, which seems to be related to manipulation of his dentures. At the time of my evaluation, the bleeding has ceased. There is dried blood along the lip which can be slowly removed with topical ointment. Endoscopy is notable for trace bloody secretions in the trachea without any active bleeding. This is expected to clear with routine tracheostomy care and suctioning. I do not anticipate that surgical intervention will be required. Thank you for this consult. Please call with any questions or concerns. Dictated By: MEET LEON MD AF/NTS Conf#: [id number] DID#: [id number] CC: GARFIELD MOREAU MD;*EndCC* MTDD
[2018-04-02] MEDS: ALTEPLASE (CATHFLO) 2 MG INJ CATHETER PRN (03:01)
[2018-04-02] MEDS: PANTOPRAZOLE 40 MG INJ IV SCH (05:59)
[2018-04-02] MEDS: CEFEPIME 1GM/50 ML (PMX) 50 ML IVPB SCH ×2 (08:21→20:39)
[2018-04-02] MEDS: MIDODRINE 5 MG TAB GTB SCH ×2 (08:21→20:39)
[2018-04-02] MEDS: MULTIVIT/CA CARB/B CMPLX/FA TAB GTB SCH (08:21)
[2018-04-02] MEDS: ZINC SULFATE 220 MG CAP GTB SCH (08:21)
[2018-04-02] MEDS: ASCORBIC ACID 500 MG TAB GTB SCH (08:21)
--- NOTE | 2018-04-02 09:09 | CONS ---
Date/Time of Note Date/Time of Note DATE: 04/02/18 TIME: 09:04 Assessment/Plan Assessment/Plan Assessment/Plan Chest x-ray showing cardiomegaly with very minimal pulmonary vascular congestion. Ventilator setting; AC of 20, tidal volume 500, PEEP of 5, 30% FiO2. Assessment and recommendations; 1. Patient with history of cardiomyopathy admitted with hypotension. Possibly related to underlying cardia myopathy. Patient however started on empiric antimicrobial coverage. 2. Anemia. 3. History of alcohol abuse. 4. Mild UTI. 5. Chronic renal insufficiency. 6. Gingival bleeding with interval resolution. No active bleeding seen. 7. Metabolic acidosis. Likely compounded by chronic renal insufficiency with interval worsening. Continue current supportive care. Monitor for any active bleeding. Monitor H&H. Obtain follow-up chest x-ray 24 hours. Monitor renal function. 40 minutes of critical care time was spent evaluating the patient. Result Diagram: 04/02/18 0444 04/02/18 0444 Results 24hrs Laboratory Tests Test 04/01/18 13:00 04/01/18 18:05 04/02/18 04:44 04/02/18 04:49 Blood Gas Blood arterial Specimen Source Arterial Blood 04/01/2018 1:10:26 Date Drawn PM Arterial Blood 7.402 pH (Temp corrected) Arterial Blood 20.6 L pCO2 (Temp correct) Arterial Blood 117.4 H pO2 (Temp corrected) Arterial Blood 12.5 L HCO3 Arterial Blood -10.8 L Base Excess Arterial Blood 98.0 Oxygen Saturatio n Brain Test ACCEPTAB Arterial Blood Left Radial Gas Puncture Site Arterial 0.3 Blood Carboxyhem oglobin Arterial Blood 0.5 Methemoglobin Blood Gas A-a O2 72.3 H Differential Oxyhemoglobin 97.2 Percent Blood Gas 37.0 Temperature Blood Gas 20.0 Respiration Rate Blood Gas Actual 36 Respiration Rate Blood Gas VENT - AC Modality FiO2 30.0 Blood Gas Tidal 500.0 Volume Blood Gas Low 5.0 PEEP Setting Blood Gas TM Notified Whom Blood Gas 04/01/2018 1:20:04 Notified Time PM Lactic Acid 1.0 Level White Blood 12.8 H Count Red Blood Count 2.98 #L Hemoglobin 8.5 #L Hematocrit 27.0 #L Mean Corpuscular 90.6 Volume Mean Corpuscular 28.5 L Hemoglobin Mean Corpuscular 31.5 L Hemoglobin Lisset nt Red Cell 14.9 H Distribution Width Platelet Count 225 Mean Platelet 10.7 H Volume Immature 1.800 H Granulocytes % Neutrophils % 76.3 Lymphocytes % 5.8 L Monocytes % 12.2 H Eosinophils % 3.5 Basophils % 0.4 Nucleated Red 0.0 Blood Cells % Immature 0.230 H Granulocytes # Neutrophils # 9.8 H Lymphocytes # 0.7 L Monocytes # 1.6 H Eosinophils # 0.5 Basophils # 0.1 Nucleated Red 0.0 Blood Cells # Sodium Level 141 Potassium Level 5.2 H Chloride Level 116 H Carbon Dioxide 13 L Level Anion Gap 12 Blood Urea 98 H Nitrogen Creatinine 2.47 #H Est Glomerular 27 L Filtrat Rate mL/min Glucose Level 106 Calcium Level 8.2 L Phosphorus Level 4.8 Magnesium Level 2.2 Total Bilirubin 0.0 L Direct Bilirubin 0.00 Indirect 0.0 Bilirubin Aspartate Amino 61 H Transf (AST/SGOT ) Alanine 14 Aminotransferase (ALT/SGPT) Alkaline 75 Phosphatase Total Protein 7.2 Albumin 3.1 L Globulin 4.10 H Albumin/Globulin 0.75 Ratio Lab Scanned BLOOD TRANSFUSIO Report N Test 04/02/18 07:00 Blood Gas Blood arterial Specimen Source Arterial Blood 04/02/2018 7:10:48 Date Drawn AM Arterial Blood 7.335 L pH (Temp corrected) Arterial Blood 26.1 L pCO2 (Temp correct) Arterial Blood 114.5 H pO2 (Temp corrected) Arterial Blood 13.6 L HCO3 Arterial Blood -11.0 L Base Excess Arterial Blood 97.7 Oxygen Saturatio n Brain Test ACCEPTAB Arterial Blood Right Radial Gas Puncture Site Arterial 0.3 Blood Carboxyhem oglobin Arterial Blood 0.5 Methemoglobin Blood Gas A-a O2 68.7 H Differential Oxyhemoglobin 96.9 Percent Blood Gas 37.0 Temperature Blood Gas 20.0 Respiration Rate Blood Gas Actual 27 Respiration Rate Blood Gas VENT - AC Modality FiO2 30.0 Blood Gas Tidal 500.0 Volume Blood Gas Low 5.0 PEEP Setting Blood Gas TM Notified Whom Blood Gas 04/02/2018 7:34:28 Notified Time AM Consultation Date/Type/Reason Admit Date/Time Date of Consultation: Apr 02, 2018 Type of Consult Pulmonary/critical care History of presenting illness; Patient is a 62-year-old male who was admitted to the hospital with hypotension from assisted. Patient has history of advanced encephalopathy and VDR F and was unable to give any history by himself whatsoever. However after being fluid resuscitated patient's hemodynamics improved and patient did not require any pressor support. By the time I saw him in ICU, patient is on ventilator via tracheostomy and is unresponsive. Patient also did not appear to be in any distress. Past medical history; 1. Dilated cardiomyopathy. 2. Chronic encephalopathy. 3. VDR F. 4. G-tube placement. 5. Anemia. 6. History of alcohol abuse. 7. Renal insufficiency. Medications; reviewed. Allergies; none. Social history; patient has been a non-smoker. History of alcohol abuse. Family history, occupational history not available. Review of systems; unable to be obtained. General exam; elderly male, on ventilator via tracheostomy, unresponsive, currently in no distress. Past Medical History Medical History: congestive heart failure, coronary artery disease, hypertension, renal disease, other Medications Current Medications Acetaminophen (Tylenol Tab) 1,000 mg Q4 PRN PO MODERATE PAIN LEVEL 4-6; Start 03/31/18 at 18:00 Acetaminophen (Tylenol Tab) 650 mg Q4 PRN GTB MILD PAIN LEVEL 1-3 Last administered on 03/31/18at 23:41; Admin Dose 650 MG; Start 03/31/18 at 18:00 Albuterol (Proventil 0.083% (Neb)) 2.5 mg Q3H PRN NEB WHEEZING AND SOB; Start 03/31/18 at 18:00 Albuterol (Proventil 0.083% (Neb)) 2.5 mg Q6 PRN NEB WHEEZING AND SOB; Start 03/31/18 at 18:00 Ascorbic Acid (Vitamin C) 500 mg DAILY GTB Last administered on 04/02/18at 08:21; Admin Dose 500 MG; Start 04/01/18 at 09:00 Bisacodyl (Dulcolax Supp) 10 mg DAILY PRN ME CONSTIPATION; Start 03/31/18 at 18:00 Carvedilol (Coreg) 25 mg BID GTB Last administered on 04/01/18at 09:46; Admin Dose 25 MG; Start 03/31/18 at 21:00 Midodrine (Proamatine) 5 mg BID GTB Last administered on 04/02/18at 08:21; Admin Dose 5 MG; Start 03/31/18 at 21:00 Multivit/Ca Carb/ B Cmplx/FA/Prenat (Sofy-Sandoval) 1 tab DAILY GTB Last administered on 04/02/18 08:21; Admin Dose 1 TAB; Start 04/01/18 at 09:00 Zinc Sulfate (Zinc Sulfate) 220 mg DAILY GTB Last administered on 04/02/18 08:21; Admin Dose 220 MG; Start 04/01/18 at 09:00 Dextrose/Sodium Chloride 1,000 ml @ 70 mls/hr [id number] IV Last administered on 04/01/18 21:50; Admin Dose 70 MLS/HR; Start 03/31/18 at 18:01 IV Flush (NS 3 ml) 3 ml PER PROTOCOL IV ; Start 03/31/18 at 18:30 Ondansetron HCl (Zofran Inj) 4 mg Q6H PRN IV NAUSEA AND/OR VOMITING; Start 03/31/18 at 18:30 Acetaminophen (Tylenol Tab) 650 mg Q6H PRN PO PAIN LEVEL 1-3 OR FEVER; Start 03/31/18 at 18:30 Acetaminophen (Tylenol Supp) 650 mg Q6H PRN ME PAIN LEVEL 1-3 OR FEVER Last administered on 04/01/18at 21:44; Admin Dose 650 MG; Start 03/31/18 at 18:30 Docusate Sodium (Colace) 100 mg Q12H PRN PO CONSTIPATION; Start 03/31/18 at 18:30 Pantoprazole (Protonix Iv) 40 mg DAILY@06 IV Last administered on 04/02/18 05:59; Admin Dose 40 MG; Start 04/01/18 at 06:00 Vancomycin HCl (Vanco Iv Per Pharmacy) VANCOMYCIN PER PHARMACY PER PROTOCOL XX ; Start 04/01/18 at 13:00 Cefepime HCl 50 ml @ 100 mls/hr Q12 IVPB Last administered on 04/02/18 08:21; Admin Dose 100 MLS/HR; Start 04/01/18 at 21:00 Vancomycin HCl 1.25 gm/Sodium Chloride 250 ml @ 83.333 mls/ hr Q24H IVPB Last administered on 04/01/18at 23:59; Admin Dose 83.333 MLS/HR; Start 04/02/18 at 00:00 Norepinephrine 250 ml @ 1.875 mls/ hr TITRATE IV ; Start 04/01/18 at 21:00 Lorazepam (Ativan) 1 mg Q4H PRN IV restless, agitation, anxiety Last administered on 04/01/18at 21:44; Admin Dose 1 MG; Start 04/01/18 at 21:00 Morphine Sulfate (morphine SULFATE (PF)) 2 mg Q4H PRN IV PAIN LEVEL 6-10; Start 04/01/18 at 21:00 Alteplase, Recombinant (Cathflo (Activase)) 2 mg MAY REPEAT X1 PRN CATHETER IF CATHETER REMAINS OCCULUDED Last administered on 04/02/18at 03:01; Admin Dose 2 MG; Start 04/01/18 at 21:00 Allergies: Coded Allergies: No Known Allergy (Unverified , 03/31/18) Past Surgical History Past Surgical Hx: no surgical history, other (PEG AND TRACHEOSTOMY) Social History Alcohol Use: other (HX) Smoking Status: Never smoker Exam/Review of Systems Vital Signs Vitals Vital Signs Date Temp Pulse Resp B/P (MAP) Pulse Ox O2 O2 Flow FiO2 Time Delivery Rate 04/02/18 30 08:01 04/02/18 78 08:00 04/02/18 98.6 18 105/71 100 Mechanical 08:00 (82) Ventilator Intake and Output 04/01/18 04/01/18 04/02/18 1515:00 23:00 07:00 IntakeIntake Total 825 ml 740 ml OutputOutput Total 250 ml 675 ml BalanceBalance 575 ml 65 ml Exam H EENT exam; supple neck, positive JVD. No lymphadenopathy. Midline trachea. Tracheostomy in place. Insertion site is clean. Patient has fair dentition. There is excoriation involving right lower lip. No active bleeding seen. Pupils are small bilaterally. No neck masses. Chest exam; diminished but clear breath sounds. S1-S2 audible, no murmurs. Regular rhythm. Abdomen exam; soft, G-tube in place. Bowel sounds audible. No organomegaly. Extremity exam; no peripheral edema. CHIEF OF STAFF DOCTOR exam; patient remains unresponsive. Medications Medications Current Medications Acetaminophen (Tylenol Tab) 1,000 mg Q4 PRN PO MODERATE PAIN LEVEL 4-6; Start 03/31/18 at 18:00 Acetaminophen (Tylenol Tab) 650 mg Q4 PRN GTB MILD PAIN LEVEL 1-3 Last administered on 03/31/18 23:41; Admin Dose 650 MG; Start 03/31/18 at 18:00 Albuterol (Proventil 0.083% (Neb)) 2.5 mg Q3H PRN NEB WHEEZING AND SOB; Start 03/31/18 at 18:00 Albuterol (Proventil 0.083% (Neb)) 2.5 mg Q6 PRN NEB WHEEZING AND SOB; Start 03/31/18 at 18:00 Ascorbic Acid (Vitamin C) 500 mg DAILY GTB Last administered on 04/02/18 08:21; Admin Dose 500 MG; Start 04/01/18 at 09:00 Bisacodyl (Dulcolax Supp) 10 mg DAILY PRN ME CONSTIPATION; Start 03/31/18 at 18: 00 Carvedilol (Coreg) 25 mg BID GTB Last administered on 04/01/18 09:46; Admin Dose 25 MG; Start 03/31/18 at 21:00 Midodrine (Proamatine) 5 mg BID GTB Last administered on 04/02/18 08:21; Admin Dose 5 MG; Start 03/31/18 at 21:00 Multivit/Ca Carb/ B Cmplx/FA/Prenat (Sofy-Sandoval) 1 tab DAILY GTB Last a dministered on 04/02/18 08:21; Admin Dose 1 TAB; Start 04/01/18 at 09:00 Zinc Sulfate (Zinc Sulfate) 220 mg DAILY GTB Last administered on 04/02/18 08:21; Admin Dose 220 MG; Start 04/01/18 at 09:00 Dextrose/Sodium Chloride 1,000 ml @ 70 mls/hr [id number] IV Last administered on 04/01/18 21:50; Admin Dose 70 MLS/HR; Start 03/31/18 at 18:01 IV Flush (NS 3 ml) 3 ml PER PROTOCOL IV ; Start 03/31/18 at 18:30 Ondansetron HCl (Zofran Inj) 4 mg Q6H PRN IV NAUSEA AND/OR VOMITING; Start 03/31/18 at 18:30 Acetaminophen (Tylenol Tab) 650 mg Q6H PRN PO PAIN LEVEL 1-3 OR FEVER; Start 03/31/18 at 18:30 Acetaminophen (Tylenol Supp) 650 mg Q6H PRN ME PAIN LEVEL 1-3 OR FEVER Last administered on 04/01/18 21:44; Admin Dose 650 MG; Start 03/31/18 at 18:30 Docusate Sodium (Colace) 100 mg Q12H PRN PO CONSTIPATION; Start 03/31/18 at 18:30 Pantoprazole (Protonix Iv) 40 mg DAILY@06 IV Last administered on 04/02/18 05:59; Admin Dose 40 MG; Start 04/01/18 at 06:00 Vancomycin HCl (Vanco Iv Per Pharmacy) VANCOMYCIN PER PHARMACY PER PROTOCOL XX ; Start 04/01/18 at 13:00 Cefepime HCl 50 ml @ 100 mls/hr Q12 IVPB Last administered on 04/02/18 08:21; Admin Dose 100 MLS/HR; Start 04/01/18 at 21:00 Vancomycin HCl 1.25 gm/Sodium Chloride 250 ml @ 83.333 mls/ hr Q24H IVPB Last administered on 04/01/18at 23:59; Admin Dose 83.333 MLS/HR; Start 04/02/18 at 00:00 Norepinephrine 250 ml @ 1.875 mls/ hr TITRATE IV ; Start 04/01/18 at 21:00 Lorazepam (Ativan) 1 mg Q4H PRN IV restless, agitation, anxiety Last administered on 04/01/18at 21:44; Admin Dose 1 MG; Start 04/01/18 at 21:00 Morphine Sulfate (morphine SULFATE (PF)) 2 mg Q4H PRN IV PAIN LEVEL 6-10; Start 04/01/18 at 21:00 Alteplase, Recombinant (Cathflo (Activase)) 2 mg MAY REPEAT X1 PRN CATHETER IF CATHETER REMAINS OCCULUDED Last administered on 04/02/18 03:01; Admin Dose 2 MG; Start 04/01/18 at 21:00 DION MAGALLANES Apr 02, 2018 09:09
--- NOTE | 2018-04-02 10:18 | PN ---
Date/Time of Note Date/Time of Note DATE: 04/02/18 TIME: 10:14 Assessment/Plan VTE [place]axis [place] [facility] [place]: 10 [place] [facility] [place] Yes Pharmacological prophylaxis: NA/contraindicated Pharm contraindication: bleeding Lines/Catheters IV Catheter Type (from [facility]): PICC Line Central line still needed: Yes Urinary Cath still in place: Yes Reason Cath still needed: urinary retention Assessment/Plan Hospital Course 62 y/o with # Oral bleeding likely due to dentures # Sepsis with Fevers with hx Pneumonia +UTI and ? Pancreatitis +multiple wounds, ucx+ lisa # Blood loss anemia due to #1 # VDRF # CKD with worseing renal failure # Metabolic acidosis #DILATED CARDIOMYOPATHY # HX ALCOHOL ABUSE Plan - change fluids with bicarb - bld cx neg so far - iv abx with vanco/cefepime, add diflucan - f/u IDr recs - id consult - Pt seen with ENT> Bleeding stopped - pul consult> vent management - no blood thinners - npo/iv fluids - cw midodrine Result Diagram: 04/02/18 0444 04/02/18 0444 Results 24hrs Laboratory Tests Test 04/01/18 13:00 04/01/18 18:05 04/02/18 04:44 04/02/18 04:49 Blood Gas Blood arterial Specimen Source Arterial Blood 04/01/2018 1:10:26 Date Drawn PM Arterial Blood 7.402 pH (Temp corrected) Arterial Blood 20.6 L pCO2 (Temp correct) Arterial Blood 117.4 H pO2 (Temp corrected) Arterial Blood 12.5 L HCO3 Arterial Blood -10.8 L Base Excess Arterial Blood 98.0 Oxygen Saturatio n Brain Test ACCEPTAB Arterial Blood Left Radial Gas Puncture Site Arterial 0.3 Blood Carboxyhem oglobin Arterial Blood 0.5 Methemoglobin Blood Gas A-a O2 72.3 H Differential Oxyhemoglobin 97.2 Percent Blood Gas 37.0 Temperature Blood Gas 20.0 Respiration Rate Blood Gas Actual 36 Respiration Rate Blood Gas VENT - AC Modality FiO2 30.0 Blood Gas Tidal 500.0 Volume Blood Gas Low 5.0 PEEP Setting Blood Gas TM Notified Whom Blood Gas 04/01/2018 1:20:04 Notified Time PM Lactic Acid 1.0 Level White Blood 12.8 H Count Red Blood Count 2.98 #L Hemoglobin 8.5 #L Hematocrit 27.0 #L Mean Corpuscular 90.6 Volume Mean Corpuscular 28.5 L Hemoglobin Mean Corpuscular 31.5 L Hemoglobin Lisset nt Red Cell 14.9 H Distribution Width Platelet Count 225 Mean Platelet 10.7 H Volume Immature 1.800 H Granulocytes % Neutrophils % 76.3 Lymphocytes % 5.8 L Monocytes % 12.2 H Eosinophils % 3.5 Basophils % 0.4 Nucleated Red 0.0 Blood Cells % Immature 0.230 H Granulocytes # Neutrophils # 9.8 H Lymphocytes # 0.7 L Monocytes # 1.6 H Eosinophils # 0.5 Basophils # 0.1 Nucleated Red 0.0 Blood Cells # Sodium Level 141 Potassium Level 5.2 H Chloride Level 116 H Carbon Dioxide 13 L Level Anion Gap 12 Blood Urea 98 H Nitrogen Creatinine 2.47 #H Est Glomerular 27 L Filtrat Rate mL/min Glucose Level 106 Calcium Level 8.2 L Phosphorus Level 4.8 Magnesium Level 2.2 Total Bilirubin 0.0 L Direct Bilirubin 0.00 Indirect 0.0 Bilirubin Aspartate Amino 61 H Transf (AST/SGOT ) Alanine 14 Aminotransferase (ALT/SGPT) Alkaline 75 Phosphatase Total Protein 7.2 Albumin 3.1 L Globulin 4.10 H Albumin/Globulin 0.75 Ratio Lab Scanned BLOOD TRANSFUSIO Report N Test 04/02/18 07:00 Blood Gas Blood arterial Specimen Source Arterial Blood 04/02/2018 7:10:48 Date Drawn AM Arterial Blood 7.335 L pH (Temp corrected) Arterial Blood 26.1 L pCO2 (Temp correct) Arterial Blood 114.5 H pO2 (Temp corrected) Arterial Blood 13.6 L HCO3 Arterial Blood -11.0 L Base Excess Arterial Blood 97.7 Oxygen Saturatio n Brain Test ACCEPTAB Arterial Blood Right Radial Gas Puncture Site Arterial 0.3 Blood Carboxyhem oglobin Arterial Blood 0.5 Methemoglobin Blood Gas A-a O2 68.7 H Differential Oxyhemoglobin 96.9 Percent Blood Gas 37.0 Temperature Blood Gas 20.0 Respiration Rate Blood Gas Actual 27 Respiration Rate Blood Gas VENT - AC Modality FiO2 30.0 Blood Gas Tidal 500.0 Volume Blood Gas Low 5.0 PEEP Setting Blood Gas TM Notified Whom Blood Gas 04/02/2018 7:34:28 Notified Time AM Subjective 24 Hr Interval Summary Free Text/Dictation Pt was transferred toICU DUE to hypotension responded to fluids Cr worse hb stable Exam/Review of Systems Vital Signs Vitals Vital Signs Date Temp Pulse Resp B/P (MAP) Pulse Ox O2 O2 Flow FiO2 Time Delivery Rate 04/02/18 30 08:01 04/02/18 78 08:00 04/02/18 98.6 18 105/71 100 Mechanical 08:00 (82) Ventilator Intake and Output 04/01/18 04/01/18 04/02/18 1515:00 23:00 07:00 IntakeIntake Total 825 ml 740 ml OutputOutput Total 250 ml 675 ml BalanceBalance 575 ml 65 ml Exam Constitutional:Well-developed. Well-nourished., tachpnic HEENT:Normocephalic. Atraumatic.Pupils were equal round reactive to light. Significant amount of bright red blood present within the oropharynx. Chapped lips that were actively bleeding..+old dried blood around lips Neck: . Tracheostomy site clean dry and intact Respiratory: lungs clear Cardiovascular: tachycardic GI: Abdomen was soft. Nontender. Non Distended. No pulsatile abdominal masses or bruits. No rebound. No guarding. Bowel sounds were present and normal. Muscle skeletal: Muscle atrophy of the bilateral lower extremities. Patient has limited range of motion of the right upper and lower extremity but was able to flex extend at the elbow and lift his right upper extremity against gravity. Patient has no movement of the bilateral lower extremities multiple wounds rt PICC Medications Medications Current Medications Acetaminophen (Tylenol Tab) 1,000 mg Q4 PRN PO MODERATE PAIN LEVEL 4-6; Start 03/31/18 at 18:00 Acetaminophen (Tylenol Tab) 650 mg Q4 PRN GTB MILD PAIN LEVEL 1-3 Last administered on 03/31/18at 23:41; Admin Dose 650 MG; Start 03/31/18 at 18:00 Albuterol (Proventil 0.083% (Neb)) 2.5 mg Q3H PRN NEB WHEEZING AND SOB; Start 03/31/18 at 18:00 Albuterol (Proventil 0.083% (Neb)) 2.5 mg Q6 PRN NEB WHEEZING AND SOB; Start 03/31/18 at 18:00 Ascorbic Acid (Vitamin C) 500 mg DAILY GTB Last administered on 04/02/18at 08:21; Admin Dose 500 MG; Start 04/01/18 at 09:00 Bisacodyl (Dulcolax Supp) 10 mg DAILY PRN [place] CONSTIPATION; Start 03/31/18 at 18:00 Carvedilol (Coreg) 25 mg BID GTB Last administered on 04/01/18at 09:46; Admin Dose 25 MG; Start 03/31/18 at 21:00 Midodrine (Proamatine) 5 mg BID GTB Last administered on 04/02/18at 08:21; Admin Dose 5 MG; Start 03/31/18 at 21:00 Multivit/Ca Carb/ B Cmplx/FA/Prenat (Sofy-Sandoval) 1 tab DAILY GTB Last administered on 04/02/18at 08:21; Admin Dose 1 TAB; Start 04/01/18 at 09:00 Zinc Sulfate (Zinc Sulfate) 220 mg DAILY GTB Last administered on 04/02/18at 08:21; Admin Dose 220 MG; Start 04/01/18 at 09:00 IV Flush (NS 3 ml) 3 ml PER PROTOCOL IV ; Start 03/31/18 at 18:30 Ondansetron HCl (Zofran Inj) 4 mg Q6H PRN IV NAUSEA AND/OR VOMITING; Start 03/31/18 at 18:30 Acetaminophen (Tylenol Tab) 650 mg Q6H PRN PO PAIN LEVEL 1-3 OR FEVER; Start 03/31/18 at 18:30 Acetaminophen (Tylenol Supp) 650 mg Q6H PRN NE PAIN LEVEL 1-3 OR FEVER Last administered on 04/01/18at 21:44; Admin Dose 650 MG; Start 03/31/18 at 18:30 Docusate Sodium (Colace) 100 mg Q12H PRN PO CONSTIPATION; Start 03/31/18 at 18:30 Pantoprazole (Protonix Iv) 40 mg DAILY@06 IV Last administered on 04/02/18at 05:59; Admin Dose 40 MG; Start 04/01/18 at 06:00 Vancomycin HCl (Vanco Iv Per Pharmacy) VANCOMYCIN PER PHARMACY PER PROTOCOL XX ; Start 04/01/18 at 13:00 Cefepime HCl 50 ml @ 100 mls/hr Q12 IVPB Last administered on 04/02/18at 08:21; Admin Dose 100 MLS/HR; Start 04/01/18 at 21:00 Norepinephrine 250 ml @ 1.875 mls/ hr TITRATE IV ; Start 04/01/18 at 21:00 Lorazepam (Ativan) 1 mg Q4H PRN IV restless, agitation, anxiety Last administered on 04/01/18at 21:44; Admin Dose 1 MG; Start 04/01/18 at 21:00 Morphine Sulfate (morphine SULFATE (PF)) 2 mg Q4H PRN IV PAIN LEVEL 6-10; Start 04/01/18 at 21:00 Alteplase, Recombinant (Cathflo (Activase)) 2 mg MAY REPEAT X1 PRN CATHETER IF CATHETER REMAINS OCCULUDED Last administered on 04/02/18at 03:01; Admin Dose 2 MG; Start 04/01/18 at 21:00 TAMARA GRAJEDA MD Apr 02, 2018 10:18
[2018-04-02] MEDS: FLUCONAZOLE 200 MG (PMX) 100 ML IVPB SCH (11:39)
[2018-04-02] MEDS: SODIUM BICARBONATE (IV ADD) 100 MEQ in DEXTROSE 5% 1,000 ML IV SCH (11:39)
--- NOTE | 2018-04-02 12:25 | CONS ---
Date/Time of Note Date/Time of Note DATE: 04/02/18 TIME: 12:25 Assessment/Plan Assessment/Plan Hospital Course No acute events overnight patient is awake noncommunicative in no distress status post fever yesterday of 101.7 current temperature 97.9 pulse 99 respirations 20 blood pressure 115/98 saturation 100 on vent WBC 12.8 H&H 8.5 and 27 platelets 225 neutrophils 76.3 BUN 98 creatinine 2.47 potassium 5.2 Indwelling: Peg, Schwartz, right upper extremity PICC line, tracheostomy Microbiology: Blood cultures since admission negative, urine culture growing Breanne albicans Antimicrobials: Fluconazole, cefepime, vancomycin Diagnostics: Chest x-ray revealed no focal consolidation vascular congestion or pleural effusion no pneumothorax. Abdominal ultrasound revealed cholelithiasis no evidence of ascites Physical examination: Chronically ill-appearing elderly man who is noncommunicative in no distress. Head atraumatic normocephalic sclera nonicteric neck is supple tracheostomy present chest rise symmetrical breath sounds diminished bases heart: S1-S2. Abdomen soft bowel sounds present. Extremities without cyanosis. Skin: Patient has multiple pressure sores he has a dry blood on the right lower lip Assessment: 1. Sepsis, status post shock 2. Breanne albicans UTI 3. History of cardiomyopathy 4. Chronic respiratory failure 5. Status post gingival bleeding Plan: Patient is hemodynamically stable, continue present care, continue empiric antibiotics, vent management per pulmonary Result Diagram: 04/02/18 0444 04/02/18 0444 Results 24hrs Laboratory Tests Test 04/01/18 13:00 04/01/18 18:05 04/02/18 04:44 04/02/18 04:49 Blood Gas Blood arterial Specimen Source Arterial Blood 04/01/2018 1:10:26 Date Drawn PM Arterial Blood 7.402 pH (Temp corrected) Arterial Blood 20.6 L pCO2 (Temp correct) Arterial Blood 117.4 H pO2 (Temp corrected) Arterial Blood 12.5 L HCO3 Arterial Blood -10.8 L Base Excess Arterial Blood 98.0 Oxygen Saturatio n Brain Test ACCEPTAB Arterial Blood Left Radial Gas Puncture Site Arterial 0.3 Blood Carboxyhem oglobin Arterial Blood 0.5 Methemoglobin Blood Gas A-a O2 72.3 H Differential Oxyhemoglobin 97.2 Percent Blood Gas 37.0 Temperature Blood Gas 20.0 Respiration Rate Blood Gas Actual 36 Respiration Rate Blood Gas VENT - AC Modality FiO2 30.0 Blood Gas Tidal 500.0 Volume Blood Gas Low 5.0 PEEP Setting Blood Gas TM Notified Whom Blood Gas 04/01/2018 1:20:04 Notified Time PM Lactic Acid 1.0 Level White Blood 12.8 H Count Red Blood Count 2.98 #L Hemoglobin 8.5 #L Hematocrit 27.0 #L Mean Corpuscular 90.6 Volume Mean Corpuscular 28.5 L Hemoglobin Mean Corpuscular 31.5 L Hemoglobin Lisset nt Red Cell 14.9 H Distribution Width Platelet Count 225 Mean Platelet 10.7 H Volume Immature 1.800 H Granulocytes % Neutrophils % 76.3 Lymphocytes % 5.8 L Monocytes % 12.2 H Eosinophils % 3.5 Basophils % 0.4 Nucleated Red 0.0 Blood Cells % Immature 0.230 H Granulocytes # Neutrophils # 9.8 H Lymphocytes # 0.7 L Monocytes # 1.6 H Eosinophils # 0.5 Basophils # 0.1 Nucleated Red 0.0 Blood Cells # Sodium Level 141 Potassium Level 5.2 H Chloride Level 116 H Carbon Dioxide 13 L Level Anion Gap 12 Blood Urea 98 H Nitrogen Creatinine 2.47 #H Est Glomerular 27 L Filtrat Rate mL/min Glucose Level 106 Calcium Level 8.2 L Phosphorus Level 4.8 Magnesium Level 2.2 Total Bilirubin 0.0 L Direct Bilirubin 0.00 Indirect 0.0 Bilirubin Aspartate Amino 61 H Transf (AST/SGOT ) Alanine 14 Aminotransferase (ALT/SGPT) Alkaline 75 Phosphatase Total Protein 7.2 Albumin 3.1 L Globulin 4.10 H Albumin/Globulin 0.75 Ratio Lab Scanned BLOOD TRANSFUSIO Report N Test 04/02/18 07:00 Blood Gas Blood arterial Specimen Source Arterial Blood 04/02/2018 7:10:48 Date Drawn AM Arterial Blood 7.335 L pH (Temp corrected) Arterial Blood 26.1 L pCO2 (Temp correct) Arterial Blood 114.5 H pO2 (Temp corrected) Arterial Blood 13.6 L HCO3 Arterial Blood -11.0 L Base Excess Arterial Blood 97.7 Oxygen Saturatio n Brain Test ACCEPTAB Arterial Blood Right Radial Gas Puncture Site Arterial 0.3 Blood Carboxyhem oglobin Arterial Blood 0.5 Methemoglobin Blood Gas A-a O2 68.7 H Differential Oxyhemoglobin 96.9 Percent Blood Gas 37.0 Temperature Blood Gas 20.0 Respiration Rate Blood Gas Actual 27 Respiration Rate Blood Gas VENT - AC Modality FiO2 30.0 Blood Gas Tidal 500.0 Volume Blood Gas Low 5.0 PEEP Setting Blood Gas TM Notified Whom Blood Gas 04/02/2018 7:34:28 Notified Time AM Consultation Date/Type/Reason Admit Date/Time Mar 31, 2018 at 17:58 Initial Consult Date 04/02/18 Type of Consult id Exam/Review of Systems Vital Signs Vitals Vital Signs Date Temp Pulse Resp B/P (MAP) Pulse Ox O2 O2 Flow FiO2 Time Delivery Rate 04/02/18 97.9 99 21 115/98 100 Mechanical 12:00 (104) Ventilator 04/02/18 30 11:58 Intake and Output 04/01/18 04/01/18 04/02/18 1515:00 23:00 07:00 IntakeIntake Total 825 ml 740 ml OutputOutput Total 250 ml 775 ml BalanceBalance 575 ml -35 ml Medications Medications Current Medications Acetaminophen (Tylenol Tab) 1,000 mg Q4 PRN PO MODERATE PAIN LEVEL 4-6; Start 03/31/18 at 18:00 Acetaminophen (Tylenol Tab) 650 mg Q4 PRN GTB MILD PAIN LEVEL 1-3 Last administered on 03/31/18at 23:41; Admin Dose 650 MG; Start 03/31/18 at 18:00 Albuterol (Proventil 0.083% (Neb)) 2.5 mg Q3H PRN NEB WHEEZING AND SOB; Start 03/31/18 at 18:00 Albuterol (Proventil 0.083% (Neb)) 2.5 mg Q6 PRN NEB WHEEZING AND SOB; Start 03/31/18 at 18:00 Ascorbic Acid (Vitamin C) 500 mg DAILY GTB Last administered on 04/02/18at 08:21; Admin Dose 500 MG; Start 04/01/18 at 09:00 Bisacodyl (Dulcolax Supp) 10 mg DAILY PRN [place] CONSTIPATION; Start 03/31/18 at 18:00 Carvedilol (Coreg) 25 mg BID GTB Last administered on 04/01/18at 09:46; Admin Dose 25 MG; Start 03/31/18 at 21:00 Midodrine (Proamatine) 5 mg BID GTB Last administered on 04/02/18at 08:21; Admin Dose 5 MG; Start 03/31/18 at 21:00 Multivit/Ca Carb/ B Cmplx/FA/Prenat (Sofy-Sandoval) 1 tab DAILY GTB Last administered on 04/02/18 08:21; Admin Dose 1 TAB; Start 04/01/18 at 09:00 Zinc Sulfate (Zinc Sulfate) 220 mg DAILY GTB Last administered on 04/02/18 08:21; Admin Dose 220 MG; Start 04/01/18 at 09:00 IV Flush (NS 3 ml) 3 ml PER PROTOCOL IV ; Start 03/31/18 at 18:30 Ondansetron HCl (Zofran Inj) 4 mg Q6H PRN IV NAUSEA AND/OR VOMITING; Start 03/31/18 at 18:30 Acetaminophen (Tylenol Tab) 650 mg Q6H PRN PO PAIN LEVEL 1-3 OR FEVER; Start 03/31/18 at 18:30 Acetaminophen (Tylenol Supp) 650 mg Q6H PRN [place] PAIN LEVEL 1-3 OR FEVER Last administered on 04/01/18at 21:44; Admin Dose 650 MG; Start 03/31/18 at 18:30 Docusate Sodium (Colace) 100 mg Q12H PRN PO CONSTIPATION; Start 03/31/18 at 18:30 Pantoprazole (Protonix Iv) 40 mg DAILY@06 IV Last administered on 04/02/18at 05:59; Admin Dose 40 MG; Start 04/01/18 at 06:00 Vancomycin HCl (Vanco Iv Per Pharmacy) VANCOMYCIN PER PHARMACY PER PROTOCOL XX ; Start 04/01/18 at 13:00 Cefepime HCl 50 ml @ 100 mls/hr Q12 IVPB Last administered on 04/02/18 08:21; Admin Dose 100 MLS/HR; Start 04/01/18 at 21:00 Norepinephrine 250 ml @ 1.875 mls/ hr TITRATE IV ; Start 04/01/18 at 21:00 Lorazepam (Ativan) 1 mg Q4H PRN IV restless, agitation, anxiety Last ad ministered on 04/01/18at 21:44; Admin Dose 1 MG; Start 04/01/18 at 21:00 Morphine Sulfate (morphine SULFATE (PF)) 2 mg Q4H PRN IV PAIN LEVEL 6-10; Start 04/01/18 at 21:00 Alteplase, Recombinant (Cathflo (Activase)) 2 mg MAY REPEAT X1 PRN CATHETER IF CATHETER REMAINS OCCULUDED Last administered on 04/02/18at 03:01; Admin Dose 2 MG; Start 04/01/18 at 21:00 Sodium Bicarbonate 100 meq/Dextrose 1,000 ml @ 70 mls/hr [id number] IV Last administered on 04/02/18at 11:39; Admin Dose 70 MLS/HR; Start 04/02/18 at 11:30 Fluconazole 100 ml @ 100 mls/hr Q24H IVPB Last administered on 04/02/18at 11:39; Admin Dose 100 MLS/HR; Start 04/02/18 at 12:00 Miscellaneous Information (*Rx Drug Level Order Reminder*) VANCO RANDOM 04/03 @ 0,500 ONCE ONCE XX ; Start 04/03/18 at 05:00; Stop 04/03/18 at 05:01 RENÉ GARCIA NP Apr 02, 2018 12:25
[2018-04-02] MEDS: morphine SULFATE/PF (2 MG/2 ML) SYG IV PRN ×2 (14:26→20:39)
[2018-04-02] MEDS: LORAZEPAM 4 MG/ML VIAL IV PRN (17:50)
[2018-04-02] MEDS: ACETAMINOPHEN 650 MG SUPP PR PRN (20:38)
[2018-04-03] VITALS (31 sets, daily range): BP systolic 93–150; BP diastolic 63–98; PULSE 80–104; RESP 10–30
[2018-04-03] MEDS: ALTEPLASE (CATHFLO) 2 MG INJ CATHETER PRN ×2 (00:18→04:24)
[2018-04-03] MEDS: LORAZEPAM 4 MG/ML VIAL IV PRN ×4 (00:18→21:11)
[2018-04-03] MEDS: SODIUM BICARBONATE (IV ADD) 100 MEQ in DEXTROSE 5% 1,000 ML IV SCH (02:00)
[2018-04-03] MEDS: PANTOPRAZOLE 40 MG INJ IV SCH (05:57)
[2018-04-03] MEDS: ASCORBIC ACID 500 MG TAB GTB SCH (08:36)
[2018-04-03] MEDS: MIDODRINE 5 MG TAB GTB SCH ×2 (08:36→20:11)
[2018-04-03] MEDS: MULTIVIT/CA CARB/B CMPLX/FA TAB GTB SCH (08:36)
[2018-04-03] MEDS: ZINC SULFATE 220 MG CAP GTB SCH (08:36)
[2018-04-03] MEDS: CEFEPIME 1GM/50 ML (PMX) 50 ML IVPB SCH (08:37)
--- NOTE | 2018-04-03 09:14 | CONS ---
Date/Time of Note Date/Time of Note DATE: 04/03/18 TIME: 09:12 Assessment/Plan Assessment/Plan Assessment/Plan Chest x-ray was reviewed from today which is clear. Ventilator setting; AC of 20, tidal volume 500, PEEP of 5, 30% FiO2. Assessment recommendations; 1. Patient with history of VD RF and chronic encephalopathy admitted for anemia due to oral bleeding, there is no active bleeding seen. Patient currently get ting blood transfusion because of low hematocrit. 2. History of cirrhosis of liver. 3. History of alcohol abuse. 4. Mild UTI. 5. Interval resolution of metabolic acidosis. 6. Prerenal azotemia with continually improving renal function. 7. Currently no evidence of any ongoing infective process. Continue on supportive care. Discontinue antibiotics. Monitor H&H. Result Diagram: 04/03/18 0430 04/03/18 0430 Results 24hrs Laboratory Tests Test 04/02/18 13:56 04/03/18 04:30 Sodium Level 144 141 Potassium Level 4.9 4.2 Chloride Level 115 H 117 H Carbon Dioxide Level 15 L 18 L Anion Gap 14 H 6 # Blood Urea Nitrogen 90 H 76 H Creatinine 2.31 H 1.62 H Est Glomerular Filtrat Rate mL/min 29 L 44 L Glucose Level 104 108 Calcium Level 8.4 8.2 L White Blood Count 8.4 # Red Blood Count 2.44 L Hemoglobin 6.9 *L Hematocrit 21.9 L Mean Corpuscular Volume 89.8 Mean Corpuscular Hemoglobin 28.3 L Mean Corpuscular Hemoglobin Concent 31.5 L Red Cell Distribution Width 15.0 H Platelet Count 223 Mean Platelet Volume 9.9 Immature Granulocytes % 1.200 H Neutrophils % 79.3 H Lymphocytes % 3.1 L Monocytes % 7.5 Eosinophils % 8.5 H Basophils % 0.4 Nucleated Red Blood Cells % 0.0 Immature Granulocytes # 0.100 H Neutrophils # 6.7 Lymphocytes # 0.3 L Monocytes # 0.6 Eosinophils # 0.7 H Basophils # 0.0 Nucleated Red Blood Cells # 0.0 Phosphorus Level 3.5 Magnesium Level 1.9 Total Bilirubin 0.0 L Direct Bilirubin 0.00 Indirect Bilirubin 0.0 Aspartate Amino Transf (AST/SGOT) 67 H Alanine Aminotransferase (ALT/SGPT) 22 Alkaline Phosphatase 74 Total Protein 6.1 # Albumin 2.6 L Globulin 3.50 H Albumin/Globulin Ratio 0.74 Lipase 2066 H Random Vancomycin Level 16.4 Consultation Date/Type/Reason Admit Date/Time Mar 31, 2018 at 17:58 Initial Consult Date 04/02/18 Type of Consult Pulmonary/critical care History of presenting illness; Patient is a 62-year-old male who was admitted to the hospital with hypotension from snf. Patient has history of advanced encephalopathy and VDR F and was unable to give any history by himself whatsoever. However after being fluid resuscitated patient's hemodynamics improved and patient did not require any pressor support. By the time I saw him in ICU, patient is on ventilator via tracheostomy and is unresponsive. Patient also did not appear to be in any distress. Past medical history; 1. Dilated cardiomyopathy. 2. Chronic encephalopathy. 3. VDR F. 4. G-tube placement. 5. Anemia. 6. History of alcohol abuse. 7. Renal insufficiency. Medications; reviewed. Allergies; none. Social history; patient has been a non-smoker. History of alcohol abuse. Family history, occupational history not available. Review of systems; unable to be obtained. General exam; elderly male, on ventilator via tracheostomy, unresponsive, currently in no distress. 24 HR Interval Summary Free Text/Dictation Patient's condition remains critical but stable. Patient has remained hemodynamically stable. General exam; middle-aged male, on ventilator via tracheostomy, noncommunicative. Currently in no distress. Exam/Review of Systems Vital Signs Vitals Vital Signs Date Temp Pulse Resp B/P (MAP) Pulse Ox O2 O2 Flow FiO2 Time Delivery Rate 04/03/18 98.6 84 23 100/69 100 Mechanical 08:00 (79) Ventilator 04/03/18 30 04:37 Intake and Output 04/02/18 04/02/18 04/03/18 1515:00 23:00 07:00 IntakeIntake Total 410 ml 765 ml 715 ml OutputOutput Total 2100 ml 700 ml 520 ml BalanceBalance -1690 ml 65 ml 195 ml Exam H EENT exam; supple neck, no JVD. No lymphadenopathy. Midline trachea. No thyromegaly. There is crusting of blood around mouth. No active bleeding seen. Patient has fair dentition. No gingival bleeding seen. Tracheostomy in place. Insertion site is clean. Chest exam; diminished but clear breath sounds. S1-S2 audible, no murmurs. Regular rhythm. Abdomen exam; soft, no organomegaly. G-tube in place. Bowel sounds audible. Extremity exam; no peripheral edema or clubbing. 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 Medications Medications Current Medications Acetaminophen (Tylenol Tab) 1,000 mg Q4 PRN PO MODERATE PAIN LEVEL 4-6; Start 03/31/18 at 18:00 Acetaminophen (Tylenol Tab) 650 mg Q4 PRN GTB MILD PAIN LEVEL 1-3 Last administered on 03/31/18at 23:41; Admin Dose 650 MG; Start 03/31/18 at 18:00 Albuterol (Proventil 0.083% (Neb)) 2.5 mg Q3H PRN NEB WHEEZING AND SOB; Start 03/31/18 at 18:00 Albuterol (Proventil 0.083% (Neb)) 2.5 mg Q6 PRN NEB WHEEZING AND SOB; Start 03/31/18 at 18:00 Ascorbic Acid (Vitamin C) 500 mg DAILY GTB Last administered on 04/03/18 08:36; Admin Dose 500 MG; Start 04/01/18 at 09:00 Bisacodyl (Dulcolax Supp) 10 mg DAILY PRN [place] CONSTIPATION; Start 03/31/18 at 18:00 Carvedilol (Coreg) 25 mg BID GTB Last administered on 04/02/18at 20:39; Admin Dose 25 MG; Start 03/31/18 at 21:00 Midodrine (Proamatine) 5 mg BID GTB Last administered on 04/03/18 08:36; Admin Dose 5 MG; Start 03/31/18 at 21:00 Multivit/Ca Carb/ B Cmplx/FA/Prenat (Sofy-Sandoval) 1 tab DAILY GTB Last administered on 04/03/18 08:36; Admin Dose 1 TAB; Start 04/01/18 at 09:00 Zinc Sulfate (Zinc Sulfate) 220 mg DAILY GTB Last administered on 04/03/18 08:36; Admin Dose 220 MG; Start 04/01/18 at 09:00 IV Flush (NS 3 ml) 3 ml PER PROTOCOL IV ; Start 03/31/18 at 18:30 Ondansetron HCl (Zofran Inj) 4 mg Q6H PRN IV NAUSEA AND/OR VOMITING; Start 03/31/18 at 18:30 Acetaminophen (Tylenol Tab) 650 mg Q6H PRN PO PAIN LEVEL 1-3 OR FEVER; Start 03/31/18 at 18:30 Acetaminophen (Tylenol Supp) 650 mg Q6H PRN [place] PAIN LEVEL 1-3 OR FEVER Last administered on 04/02/18 20:38; Admin Dose 650 MG; Start 03/31/18 at 18:30 Docusate Sodium (Colace) 100 mg Q12H PRN PO CONSTIPATION; Start 03/31/18 at 18:30 Pantoprazole (Protonix Iv) 40 mg DAILY@06 IV Last administered on 04/03/18 05:57; Admin Dose 40 MG; Start 04/01/18 at 06:00 Vancomycin HCl (Vanco Iv Per Pharmacy) VANCOMYCIN PER PHARMACY PER PROTOCOL XX ; Start 04/01/18 at 13:00 Cefepime HCl 50 ml @ 100 mls/hr Q12 IVPB Last administered on 04/03/18 08:37; Admin Dose 100 MLS/HR; Start 04/01/18 at 21:00 Norepinephrine 250 ml @ 1.875 mls/ hr TITRATE IV ; Start 04/01/18 at 21:00 Lorazepam (Ativan) 1 mg Q4H PRN IV restless, agitation, anxiety Last administered on 04/03/18 00:18; Admin Dose 1 MG; Start 04/01/18 at 21:00 Morphine Sulfate (morphine SULFATE (PF)) 2 mg Q4H PRN IV PAIN LEVEL 6-10 Last administered on 04/02/18 20:39; Admin Dose 2 MG; Start 04/01/18 at 21:00 Alteplase, Recombinant (Cathflo (Activase)) 2 mg MAY REPEAT X1 PRN CATHETER IF CATHETER REMAINS OCCULUDED Last administered on 04/03/18 04:24; Admin Dose 2 MG; Start 04/01/18 at 21:00 Sodium Bicarbonate 100 meq/Dextrose 1,000 ml @ 70 mls/hr [id number] IV Last administered on 04/03/18 02:00; Admin Dose 70 MLS/HR; Start 04/02/18 at 11:30 Fluconazole 100 ml @ 100 mls/hr Q24H IVPB Last administered on 04/02/18 11:39; Admin Dose 100 MLS/HR; Start 04/02/18 at 12:00 Vancomycin HCl 250 ml @ 125 mls/hr Q24H IVPB ; Start 04/03/18 at 09:00 DION MAGALLANES Apr 03, 2018 09:14
--- NOTE | 2018-04-03 10:09 | PN ---
Date/Time of Note Date/Time of Note DATE: 04/03/18 TIME: 10:04 Assessment/Plan VTE Prophylaxis Risk score (from Ns)>0 risk: 8 SCD applied (from [facility] [place] Yes Pharmacological prophylaxis: NA/contraindicated Pharm contraindication: low risk/ambulating Lines/Catheters IV C[facility]ter Type (from [facility]): PICC Line Central line still needed: Yes Urinary Cath still in place: Yes Reason Cath still needed: urinary retention Assessment/Plan Hospital Course 62 y/o with # Oral gingival bleeding likely due to dentures, seen by ENT s/p endoscopy # Sepsis with Fevers with hx Pneumonia +UTI and ? Pancreatitis +multiple wounds, ucx+ lisa # Blood loss anemia due to #1 # VDRF # CKD with worseing renal failure # Metabolic acidosis #DILATED CARDIOMYOPATHY # HX ALCOHOL ABUSE # Multiple wounds > decub Plan - dec fluids - 1 unit blood today due to HB 6.9 - bld cx neg so far - wound culture - wound nurse to see ? debridement - iv abx with vanco/cefepime, cw diflucan, abx per ID - Cr improving - pul consult> vent management - no blood thinners due to anemia - GI prophylaxsis - cw midodrine Result Diagram: 04/03/18 04304/03/18 0430 Results 24hrs Laboratory Tests Test 04/02/18 13:56 04/03/18 04:30 Sodium Level 144 141 Potassium Level 4.9 4.2 Chloride Level 115 H 117 H Carbon Dioxide Level 15 L 18 L Anion Gap 14 H 6 # Blood Urea Nitrogen 90 H 76 H Creatinine 2.31 H 1.62 H Est Glomerular Filtrat Rate mL/min 29 L 44 L Glucose Level 104 108 Calcium Level 8.4 8.2 L White Blood Count 8.4 # Red Blood Count 2.44 L Hemoglobin 6.9 *L Hematocrit 21.9 L Mean Corpuscular Volume 89.8 Mean Corpuscular Hemoglobin 28.3 L Mean Corpuscular Hemoglobin Concent 31.5 L Red Cell Distribution Width 15.0 H Platelet Count 223 Mean Platelet Volume 9.9 Immature Granulocytes % 1.200 H Neutrophils % 79.3 H Lymphocytes % 3.1 L Monocytes % 7.5 Eosinophils % 8.5 H Basophils % 0.4 Nucleated Red Blood Cells % 0.0 Immature Granulocytes # 0.100 H Neutrophils # 6.7 Lymphocytes # 0.3 L Monocytes # 0.6 Eosinophils # 0.7 H Basophils # 0.0 Nucleated Red Blood Cells # 0.0 Phosphorus Level 3.5 Magnesium Level 1.9 Total Bilirubin 0.0 L Direct Bilirubin 0.00 Indirect Bilirubin 0.0 Aspartate Amino Transf (AST/SGOT) 67 H Alanine Aminotransferase (ALT/SGPT) 22 Alkaline Phosphatase 74 Total Protein 6.1 # Albumin 2.6 L Globulin 3.50 H Albumin/Globulin Ratio 0.74 Lipase 2066 H Random Vancomycin Level 16.4 Subjective 24 Hr Interval Summary Free Text/Dictation fevers of 103 yesterday SBP stable +gingival bleeding hb 6.9 Exam/Review of Systems Vital Signs Vitals Vital Signs Date Temp Pulse Resp B/P (MAP) Pulse Ox O2 O2 Flow FiO2 Time Delivery Rate 04/03/18 83 08:00 04/03/18 98.6 23 100/69 100 Mechanical 08:00 (79) Ventilator 04/03/18 30 04:37 Intake and Output 04/02/18 04/02/18 04/03/18 1515:00 23:00 07:00 IntakeIntake Total 410 ml 765 ml 715 ml OutputOutput Total 2100 ml 700 ml 520 ml BalanceBalance -1690 ml 65 ml 195 ml Exam Constitutional:Well-developed. Well-nourished., tachpnic HEENT:Normocephalic. Atraumatic.Pupils were equal round reactive to light. Significant amount of bright red blood present within the oropharynx. Chapped lips that were actively bleeding..+old dried blood around lips Neck: . Tracheostomy site clean dry and intact Respiratory: lungs clear Cardiovascular: tachycardic GI: Abdomen was soft. Nontender. Non Distended. No pulsatile abdominal masses or bruits. No rebound. No guarding. Bowel sounds were present and normal. Muscle skeletal: Muscle atrophy of the bilateral lower extremities. Patient has limited range of motion of the right upper and lower extremity but was able to flex extend at the elbow and lift his right upper extremity against gravity. Patient has no movement of the bilateral lower extremities multiple wounds rt PICC Medications Medications Current Medications Acetaminophen (Tylenol Tab) 1,000 mg Q4 PRN PO MODERATE PAIN LEVEL 4-6; Start 03/31/18 at 18:00 Acetaminophen (Tylenol Tab) 650 mg Q4 PRN GTB MILD PAIN LEVEL 1-3 Last administered on 03/31/18 23:41; Admin Dose 650 MG; Start 03/31/18 at 18:00 Albuterol (Proventil 0.083% (Neb)) 2.5 mg Q3H PRN NEB WHEEZING AND SOB; Start 03/31/18 at 18:00 Albuterol (Proventil 0.083% (Neb)) 2.5 mg Q6 PRN NEB WHEEZING AND SOB; Start 03/31/18 at 18:00 Ascorbic Acid (Vitamin C) 500 mg DAILY GTB Last administered on 04/03/18 08:36; Admin Dose 500 MG; Start 04/01/18 at 09:00 Bisacodyl (Dulcolax Supp) 10 mg DAILY PRN [place] CONSTIPATION; Start 03/31/18 at 18:00 Carvedilol (Coreg) 25 mg BID GTB Last administered on 04/03/18 09:53; Admin Dose 25 MG; Start 03/31/18 at 21:00 Midodrine (Proamatine) 5 mg BID GTB Last administered on 04/03/18 08:36; Admin Dose 5 MG; Start 03/31/18 at 21:00 Multivit/Ca Carb/ B Cmplx/FA/Prenat (Sofy-Sandoval) 1 tab DAILY GTB Last administered on 04/03/18 08:36; Admin Dose 1 TAB; Start 04/01/18 at 09:00 Zinc Sulfate (Zinc Sulfate) 220 mg DAILY GTB Last administered on 04/03/18 08:36; Admin Dose 220 MG; Start 04/01/18 at 09:00 IV Flush (NS 3 ml) 3 ml PER PROTOCOL IV ; Start 03/31/18 at 18:30 Ondansetron HCl (Zofran Inj) 4 mg Q6H PRN IV NAUSEA AND/OR VOMITING; Start 03/31/18 at 18:30 Acetaminophen (Tylenol Tab) 650 mg Q6H PRN PO PAIN LEVEL 1-3 OR FEVER; Start 03/31/18 at 18:30 Acetaminophen (Tylenol Supp) 650 mg Q6H PRN [place] PAIN LEVEL 1-3 OR FEVER Last administered on 04/02/18at 20:38; Admin Dose 650 MG; Start 03/31/18 at 18:30 Docusate Sodium (Colace) 100 mg Q12H PRN [place] CONSTIPATION; Start 03/31/18 at 18:30 Pantoprazole (Protonix Iv) 40 mg DAILY@06 IV Last administered on 04/03/18 05:57; Admin Dose 40 MG; Start 04/01/18 at 06:00 Vancomycin HCl (Vanco Iv Per Pharmacy) VANCOMYCIN PER PHARMACY PER PROTOCOL XX ; Start 04/01/18 at 13:00 Cefepime HCl 50 ml @ 100 mls/hr Q12 IVPB Last administered on 04/03/18at 08:37; Admin Dose 100 MLS/HR; Start 04/01/18 at 21:00 Norepinephrine 250 ml @ 1.875 mls/ hr TITRATE IV ; Start 04/01/18 at 21:00 Lorazepam (Ativan) 1 mg Q4H PRN IV restless, agitation, anxiety Last administered on 04/03/18 09:53; Admin Dose 1 MG; Start 04/01/18 at 21:00 Morphine Sulfate (morphine SULFATE (PF)) 2 mg Q4H PRN IV PAIN LEVEL 6-10 Last administered on 04/02/18 20:39; Admin Dose 2 MG; Start 04/01/18 at 21:00 Alteplase, Recombinant (Cathflo (Activase)) 2 mg MAY REPEAT X1 PRN CATHETER IF CATHETER REMAINS OCCULUDED Last administered on 04/03/18at 04:24; Admin Dose 2 MG; Start 04/01/18 at 21:00 Sodium Bicarbonate 100 meq/Dextrose 1,000 ml @ 70 mls/hr [id number] IV Last adm inistered on 04/03/18at 02:00; Admin Dose 70 MLS/HR; Start 04/02/18 at 11:30 Fluconazole 100 ml @ 100 mls/hr Q24H IVPB Last administered on 04/02/18 11:39; Admin Dose 100 MLS/HR; Start 04/02/18 at 12:00 Vancomycin HCl 250 ml @ 125 mls/hr Q24H IVPB ; Start 04/03/18 at 09:00 TAMARA GRAJEDA MD Apr 03, 2018 10:09
[2018-04-03] MEDS: VANCOMYCIN 1 GM 250 ML IVPB SCH (10:11)
[2018-04-03] MEDS ORDERED: COLLAGENASE 5 GM (UD JAR) TOP ONE (11:31)
[2018-04-03] MEDS: SODIUM BICARBONATE (IV ADD) 50 MEQ in DEXTROSE 5% 1,000 ML IV SCH (11:50)
--- NOTE | 2018-04-03 11:57 | RADRPT ---
Vent Rate: 88 bpm RR Interval: 0 msec ID Interval: 160 msec QRS Duration: 96 msec QT Interval: 388 msec QTC Interval: 469 msec P-R-T [place]: 56 - 20 - 61 degrees Normal sinus rhythm Minimal voltage criteria for LVH, may be normal variant T wave abnormality, consider lateral ischemia Prolonged QT Abnormal ECG Electronically Signed By: Arian Godoy [id number]
[2018-04-03] MEDS: FLUCONAZOLE 200 MG (PMX) 100 ML IVPB SCH (13:01)
[2018-04-03] MEDS: COLLAGENASE 5 GM (UD JAR) TOP SCH (13:02)
--- NOTE | 2018-04-03 15:43 | CONS ---
Date/Time of Note Date/Time of Note DATE: 04/03/18 TIME: 15:41 Assessment/Plan Assessment/Plan Hospital Course No acute changes overnight patient looks comfortable still with gingival bleeding, no fevers WBC 8.4 H&H 6.9 21.9 platelets 223 neutrophils 79.3 BUN 76 creatinine 1.62 Indwelling: Peg, Schwartz, right upper extremity PICC line, tracheostomy Microbiology: Blood cultures since admission negative, urine culture growing Breanne albicans Antimicrobials: Fluconazole, cefepime, vancomycin Diagnostics: Chest x-ray revealed no focal consolidation vascular congestion or pleural effusion no pneumothorax. Abdominal ultrasound revealed cholelithiasis no evidence of ascites Physical examination: Chronically ill-appearing elderly man who is noncommunicative in no distress. Head atraumatic normocephalic sclera n onicteric neck is supple tracheostomy present chest rise symmetrical breath sounds diminished bases heart: S1-S2. Abdomen soft bowel sounds present. Extremities without cyanosis. Skin: Patient has multiple pressure sores he has a dry blood on the right lower lip Assessment: 1. Sepsis, status post shock 2. Breanne albicans UTI 3. History of cardiomyopathy 4. Chronic respiratory failure 5. Ongoing gingival bleeding, s/p ENT eval Plan: Remains unchanged, hemodynamically stable, WBC trending down, will DC antibiotics in a.m. if patient remains stable, vent management per pulmonary Result Diagram: 04/03/18 0430 04/03/18 0430 Results 24hrs Laboratory Tests Test 04/03/18 04:30 White Blood Count 8.4 # Red Blood Count 2.44 L Hemoglobin 6.9 *L Hematocrit 21.9 L Mean Corpuscular Volume 89.8 Mean Corpuscular Hemoglobin 28.3 L Mean Corpuscular Hemoglobin Concent 31.5 L Red Cell Distribution Width 15.0 H Platelet Count 223 Mean Platelet Volume 9.9 Immature Granulocytes % 1.200 H Neutrophils % 79.3 H Lymphocytes % 3.1 L Monocytes % 7.5 Eosinophils % 8.5 H Basophils % 0.4 Nucleated Red Blood Cells % 0.0 Immature Granulocytes # 0.100 H Neutrophils # 6.7 Lymphocytes # 0.3 L Monocytes # 0.6 Eosinophils # 0.7 H Basophils # 0.0 Nucleated Red Blood Cells # 0.0 Sodium Level 141 Potassium Level 4.2 Chloride Level 117 H Carbon Dioxide Level 18 L Anion Gap 6 # Blood Urea Nitrogen 76 H Creatinine 1.62 H Est Glomerular Filtrat Rate mL/min 44 L Glucose Level 108 Calcium Level 8.2 L Phosphorus Level 3.5 Magnesium Level 1.9 Total Bilirubin 0.0 L Direct Bilirubin 0.00 Indirect Bilirubin 0.0 Aspartate Amino Transf (AST/SGOT) 67 H Alanine Aminotransferase (ALT/SGPT) 22 Alkaline Phosphatase 74 Total Protein 6.1 # Albumin 2.6 L Globulin 3.50 H Albumin/Globulin Ratio 0.74 Lipase 2066 H Random Vancomycin Level 16.4 Consultation Date/Type/Reason Admit Date/Time Mar 31, 2018 at 17:58 Initial Consult Date 04/02/18 Type of Consult id Exam/Review of Systems Vital Signs Vitals Vital Signs Date Temp Pulse Resp B/P (MAP) Pulse Ox O2 O2 Flow FiO2 Time Delivery Rate 04/03/18 103 23 100 30 15:00 04/03/18 98.4 126/79 Mechanical 12:00 (95) Ventilator Intake and Output 04/02/18 04/02/18 04/03/18 1515:00 23:00 07:00 IntakeIntake Total 410 ml 765 ml 820 ml OutputOutput Total 2100 ml 700 ml 555 ml BalanceBalance -1690 ml 65 ml 265 ml Medications Medications Current Medications Acetaminophen (Tylenol Tab) 1,000 mg Q4 PRN PO MODERATE PAIN LEVEL 4-6; Start 03/31/18 at 18:00 Acetaminophen (Tylenol Tab) 650 mg Q4 PRN GTB MILD PAIN LEVEL 1-3 Last administered on 03/31/18at 23:41; Admin Dose 650 MG; Start 03/31/18 at 18:00 Albuterol (Proventil 0.083% (Neb)) 2.5 mg Q3H PRN NEB WHEEZING AND SOB; Start 03/31/18 at 18:00 Albuterol (Proventil 0.083% (Neb)) 2.5 mg Q6 PRN NEB WHEEZING AND SOB; Start 03/31/18 at 18:00 Ascorbic Acid (Vitamin C) 500 mg DAILY GTB Last administered on 04/03/18at 08:36; Admin Dose 500 MG; Start 04/01/18 at 09:00 Bisacodyl (Dulcolax Supp) 10 mg DAILY PRN [place] CONSTIPATION; Start 03/31/18 at 18:00 Carvedilol (Coreg) 25 mg BID GTB Last administered on 04/03/18 09:53; Admin Dose 25 MG; Start 03/31/18 at 21:00 Midodrine (Proamatine) 5 mg BID GTB Last administered on 04/03/18 08:36; Admin Dose 5 MG; Start 03/31/18 at 21:00 Multivit/Ca Carb/ B Cmplx/FA/Prenat (Sofy-Sandoval) 1 tab DAILY GTB Last administered on 04/03/18 08:36; Admin Dose 1 TAB; Start 04/01/18 at 09:00 Zinc Sulfate (Zinc Sulfate) 220 mg DAILY GTB Last administered on 04/03/18 08:36; Admin Dose 220 MG; Start 04/01/18 at 09:00 IV Flush (NS 3 ml) 3 ml PER PROTOCOL IV ; Start 03/31/18 at 18:30 Ondansetron HCl (Zofran Inj) 4 mg Q6H PRN IV NAUSEA AND/OR VOMITING; Start 03/31/18 at 18:30 Acetaminophen (Tylenol Tab) 650 mg Q6H PRN PO PAIN LEVEL 1-3 OR FEVER; Start 03/31/18 at 18:30 Acetaminophen (Tylenol Supp) 650 mg Q6H PRN [place] PAIN LEVEL 1-3 OR FEVER Last administered on 04/02/18 20:38; Admin Dose 650 MG; Start 03/31/18 at 18:30 Docusate Sodium (Colace) 100 mg Q12H PRN PO CONSTIPATION; Start 03/31/18 at 18:30 Pantoprazole (Protonix Iv) 40 mg DAILY@06 IV Last administered on 04/03/18 05:57; Admin Dose 40 MG; Start 04/01/18 at 06:00 Vancomycin HCl (Vanco Iv Per Pharmacy) VANCOMYCIN PER PHARMACY PER PROTOCOL XX ; Start 04/01/18 at 13:00 Norepinephrine 250 ml @ 1.875 mls/ hr TITRATE IV ; Start 04/01/18 at 21:00 Lorazepam (Ativan) 1 mg Q4H PRN IV restless, agitation, anxiety Last administered on 04/03/18 09:53; Admin Dose 1 MG; Start 04/01/18 at 21:00 Morphine Sulfate (morphine SULFATE (PF)) 2 mg Q4H PRN IV PAIN LEVEL 6-10 Last administered on 1/8/19at 20:39; Admin Dose 2 MG; Start 04/01/18 at 21:00 Alteplase, Recombinant (Cathflo (Activase)) 2 mg MAY REPEAT X1 PRN CATHETER IF CATHETER REMAINS OCCULUDED Last administered on 04/03/18at 04:24; Admin Dose 2 MG; Start 04/01/18 at 21:00 Fluconazole 100 ml @ 100 mls/hr Q24H IVPB Last administered on 04/03/18at 13:01; Admin Dose 100 MLS/HR; Start 04/02/18 at 12:00 Vancomycin HCl 250 ml @ 125 mls/hr Q24H IVPB Last administered on 04/03/18at 10:11; Admin Dose 125 MLS/HR; Start 04/03/18 at 09:00 Sodium Bicarbonate 50 meq/Dextrose 1,050 ml @ 50 mls/hr Q21H IV Last administered on 04/03/18at 11:50; Admin Dose 50 MLS/HR; Start 04/03/18 at 10:11 Cefepime HCl 50 ml @ 100 mls/hr Q24H IVPB ; Start 04/04/18 at 09:00 Collagenase (Santyl) 1 applic DAILY TOP Last administered on 04/03/18at 13:02; Admin Dose 1 APPLIC; Start 04/03/18 at 12:00 RENÉ GARCIA NP Apr 03, 2018 15:43
[2018-04-03] MEDS: morphine SULFATE/PF (2 MG/2 ML) SYG IV PRN ×2 (15:44→20:11)
[2018-04-03] MEDS: BALSAM PERU/CASTOR OIL 60 GM TUBE TOP SCH (20:12)
[2018-04-04] VITALS (29 sets, daily range): BP systolic 90–137; BP diastolic 60–91; PULSE 82–151; RESP 17–30
[2018-04-04] MEDS: morphine SULFATE/PF (2 MG/2 ML) SYG IV PRN ×2 (00:25→11:20)
[2018-04-04] MEDS: LORAZEPAM 4 MG/ML VIAL IV PRN ×3 (01:27→21:53)
[2018-04-04] MEDS: PANTOPRAZOLE 40 MG INJ IV SCH (05:22)
[2018-04-04] MEDS: SODIUM BICARBONATE (IV ADD) 50 MEQ in DEXTROSE 5% 1,000 ML IV SCH (08:55)
[2018-04-04] MEDS: ASCORBIC ACID 500 MG TAB GTB SCH (08:58)
[2018-04-04] MEDS: MIDODRINE 5 MG TAB GTB SCH (08:58)
[2018-04-04] MEDS: MULTIVIT/CA CARB/B CMPLX/FA TAB GTB SCH (08:58)
[2018-04-04] MEDS: ZINC SULFATE 220 MG CAP GTB SCH (08:59)
[2018-04-04] MEDS ORDERED: CEFEPIME 1GM/50 ML (PMX) 50 ML IVPB SCH (09:00)
[2018-04-04] MEDS: BALSAM PERU/CASTOR OIL 60 GM TUBE TOP SCH (09:22)
--- NOTE | 2018-04-04 09:33 | CONS ---
Date/Time of Note Date/Time of Note DATE: 04/04/18 TIME: 09:31 Assessment/Plan Assessment/Plan Assessment/Plan Ventilator setting; AC of 20, tidal volume 500, PEEP of 5, 30% FiO2. Assessment and recommendations; 1. Patient with history of chronic encephalopathy and VDR F admitted for anemia due to gingival and lip bleeding. Status post ENT workup. Status post blood transfusion. 2. Improving leukocytosis. No obvious source of infection. Continue current supportive care. Consider stopping antibiotics. Result Diagram: 04/04/18 0420 04/04/18 0430 Results 24hrs Laboratory Tests Test 04/04/18 04:20 04/04/18 04:30 04/04/18 04:56 White Blood Count 6.4 # Red Blood Count 2.79 L Hemoglobin 7.9 L Hematocrit 24.3 L Mean Corpuscular Volume 87.1 Mean Corpuscular Hemoglobin 28.3 L Mean Corpuscular 32.5 Hemoglobin Concent Red Cell Distribution Width 15.5 H Platelet Count 211 Mean Platelet Volume 9.7 Immature Granulocytes % 0.800 H Neutrophils % 73.6 Lymphocytes % 5.9 L Monocytes % 11.9 H Eosinophils % 7.3 H Basophils % 0.5 Nucleated Red Blood Cells % 0.0 Immature Granulocytes # 0.050 H Neutrophils # 4.7 Lymphocytes # 0.4 L Monocytes # 0.8 Eosinophils # 0.5 Basophils # 0.0 Nucleated Red Blood Cells # 0.0 Sodium Level 145 H Potassium Level 3.9 Chloride Level 112 H Carbon Dioxide Level 20 L Anion Gap 13 # Blood Urea Nitrogen 55 H Creatinine 1.06 Est Glomerular Filtrat > 60 Rate mL/min Glucose Level 100 Calcium Level 8.0 L Phosphorus Level 2.7 Magnesium Level 1.7 Total Bilirubin 0.0 L Direct Bilirubin 0.00 Indirect Bilirubin 0.0 Aspartate Amino 66 H Transf (AST/SGOT) Alanine 21 Aminotransferase (ALT/SGPT) Alkaline Phosphatase 60 Total Protein 6.5 Albumin 2.7 L Globulin 3.80 H Albumin/Globulin Ratio 0.71 Lipase 2688 H Lab Scanned Report BLOOD TRANSFUSION Consultation Date/Type/Reason Admit Date/Time Mar 31, 2018 at 17:58 Initial Consult Date 04/02/18 Type of Consult Pulmonary/critical care History of presenting illness; Patient is a 62-year-old male who was admitted to the hospital with hypotension from fdc. Patient has history of advanced encephalopathy and VDR F and was unable to give any history by himself whatsoever. However after being fluid resuscitated patient's hemodynamics improved and patient did not require any pressor support. By the time I saw him in ICU, patient is on ventilator via tracheostomy and is unresponsive. Patient also did not appear to be in any distress. Past medical history; 1. Dilated cardiomyopathy. 2. Chronic encephalopathy. 3. VDR F. 4. G-tube placement. 5. Anemia. 6. History of alcohol abuse. 7. Renal insufficiency. Medications; reviewed. Allergies; none. Social history; patient has been a non-smoker. History of alcohol abuse. Family history, occupational history not available. Review of systems; unable to be obtained. General exam; elderly male, on ventilator via tracheostomy, unresponsive, currently in no distress. 24 HR Interval Summary Free Text/Dictation Patient's condition remains critical. Still having occasional gingival and lip bleeding. General exam; elderly male, on ventilator via tracheostomy, unresponsive due to underlying encephalopathy. Currently no distress. Exam/Review of Systems Vital Signs Vitals Vital Signs Date Temp Pulse Resp B/P (MAP) Pulse Ox O2 O2 Flow FiO2 Time Delivery Rate 04/04/18 96 08:00 04/04/18 20 113/84 100 Mechanical 07:00 (94) Ventilator 04/04/18 30 04:50 04/04/18 99.2 04:00 Intake and Output 04/03/18 04/03/18 04/04/18 1515:00 23:00 07:00 IntakeIntake Total 1130 ml 495 ml 175 ml OutputOutput Total 315 ml 550 ml 530 ml BalanceBalance 815 ml -55 ml -355 ml Exam H EENT exam; supple neck, no JVD. No lymphadenopathy. Midline trachea. No thyromegaly. There is crusting of blood around the lips. Patient has fair dentition. Tracheostomy in place. Insertion site is clean. Chest exam; diminished but clear breath sounds. S1-S2 audible, no murmurs. Regular rhythm. Abdomen exam; soft, no organomegaly. G-tube in place. Bowel sounds audible. Extremity exam; no peripheral edema or clubbing. FACILITIES COORDINATOR exam; patient remains noncommunicative. Medications Medications Current Medications Acetaminophen (Tylenol Tab) 1,000 mg Q4 PRN PO MODERATE PAIN LEVEL 4-6; Start 03/31/18 at 18:00 Acetaminophen (Tylenol Tab) 650 mg Q4 PRN GTB MILD PAIN LEVEL 1-3 Last administered on 03/31/18 23:41; Admin Dose 650 MG; Start 03/31/18 at 18:00 Albuterol (Proventil 0.083% (Neb)) 2.5 mg Q3H PRN NEB WHEEZING AND SOB; Start 03/31/18 at 18:00 Albuterol (Proventil 0.083% (Neb)) 2.5 mg Q6 PRN NEB WHEEZING AND SOB; Start 03/31/18 at 18:00 Ascorbic Acid (Vitamin C) 500 mg DAILY GTB Last administered on 04/04/18 08:58; Admin Dose 500 MG; Start 04/01/18 at 09:00 Bisacodyl (Dulcolax Supp) 10 mg DAILY PRN [place] CONSTIPATION; Start 03/31/18 at 18:00 Carvedilol (Coreg) 25 mg BID GTB Last administered on 04/04/18 08:59; Admin Dose 25 MG; Start 03/31/18 at 21:00 Midodrine (Proamatine) 5 mg BID GTB Last administered on 04/04/18 08:58; Admin Dose 5 MG; Start 03/31/18 at 21:00 Multivit/Ca Carb/ B Cmplx/FA/Prenat (Sofy-Sandoval) 1 tab DAILY GTB Last administered on 04/04/18 08:58; Admin Dose 1 TAB; Start 04/01/18 at 09:00 Zinc Sulfate (Zinc Sulfate) 220 mg DAILY GTB Last administered on 04/04/18 08:59; Admin Dose 220 MG; Start 04/01/18 at 09:00 IV Flush (NS 3 ml) 3 ml PER PROTOCOL IV ; Start 03/31/18 at 18:30 Ondansetron HCl (Zofran Inj) 4 mg Q6H PRN IV NAUSEA AND/OR VOMITING; Start 03/31/18 at 18:30 Acetaminophen (Tylenol Tab) 650 mg Q6H PRN PO PAIN LEVEL 1-3 OR FEVER; Start 03/31/18 at 18:30 Acetaminophen (Tylenol Supp) 650 mg Q6H PRN [place] PAIN LEVEL 1-3 OR FEVER Last administered on 1/8/19at 20:38; Admin Dose 650 MG; Start 03/31/18 at 18:30 Docusate Sodium (Colace) 100 mg Q12H PRN PO CONSTIPATION; Start 03/31/18 at 18:30 Pantoprazole (Protonix Iv) 40 mg DAILY@06 IV Last administered on 04/04/18 05:22; Admin Dose 40 MG; Start 04/01/18 at 06:00 Vancomycin HCl (Vanco Iv Per Pharmacy) VANCOMYCIN PER PHARMACY PER PROTOCOL XX ; Start 04/01/18 at 13:00 Norepinephrine 250 ml @ 1.875 mls/ hr TITRATE IV ; Start 04/01/18 at 21:00 Morphine Sulfate (morphine SULFATE (PF)) 2 mg Q4H PRN IV PAIN LEVEL 6-10 Last administered on 04/04/18 00:25; Admin Dose 2 MG; Start 04/01/18 at 21:00 Alteplase, Recombinant (Cathflo (Activase)) 2 mg MAY REPEAT X1 PRN CATHETER IF CATHETER REMAINS OCCULUDED Last administered on 04/03/18 04:24; Admin Dose 2 MG; Start 04/01/18 at 21:00 Fluconazole 100 ml @ 100 mls/hr Q24H IVPB Last administered on 04/03/18 13:01; Admin Dose 100 MLS/HR; Start 04/02/18 at 12:00 Vancomycin HCl 250 ml @ 125 mls/hr Q24H IVPB Last administered on 04/03/18 10:11; Admin Dose 125 MLS/HR; Start 04/03/18 at 09:00 Sodium Bicarbonate 50 meq/Dextrose 1,050 ml @ 50 mls/hr Q21H IV Last administered on 04/04/18 08:55; Admin Dose 50 MLS/HR; Start 04/03/18 at 10:11 Cefepime HCl 50 ml @ 100 mls/hr Q24H IVPB Last administered on 04/04/18 08:55; Admin Dose 100 MLS/HR; Start 04/04/18 at 09:00 Collagenase (Santyl) 1 applic DAILY TOP Last administered on 04/03/18 13:02; Admin Dose 1 APPLIC; Start 04/03/18 at 12:00 Lorazepam (Ativan) 2 mg Q4H PRN IV restless, agitation, anxiety Last administered on 1/10/19at 09:05; Admin Dose 2 MG; Start 04/03/18 at 17:00 DION MAGALLANES Apr 04, 2018 09:33
--- NOTE | 2018-04-04 10:21 | PN ---
Date/Time of Note Date/Time of Note DATE: 04/04/18 TIME: 10:21 Assessment/Plan VTE Prophylaxis Risk score (from Ns)>0 risk: 10 SCD applied (from [facility] [place]): Yes Pharmacological prophylaxis: NA/contraindicated Pharm contraindication: low risk/ambulating Lines/Catheters IV Catheter Type (from [facility]): PICC Line Central line still needed: Yes Urinary Cath still in place: Yes Reason Cath still needed: urinary retention Assessment/Plan Hospital Course 62 y/o with # Oral gingival bleeding likely due to dentures, seen by ENT s/p endoscopy # Sepsis with Fevers with hx Pneumonia +UTI and ? Pancreatitis +multiple wounds, ucx+ lisa # Blood loss anemia due to #1 # VDRF # CKD with worseing renal failure # Metabolic acidosis #DILATED CARDIOMYOPATHY # HX ALCOHOL ABUSE # Multiple wounds > decub Plan - change fluids - bld cx neg so far - wound culture - wound nurse to see no debridement - iv abx with vanco/cefepime, cw diflucan, abx per ID - Cr improving - pul consult> vent management - no blood thinners due to anemia - GI prophylaxsis - cw midodrine - montior oral bleeding transfer to tele Result Diagram: 04/04/18 0420 04/04/18 0430 Results 24hrs Laboratory Tests Test 04/04/18 04:20 04/04/18 04:30 04/04/18 04:56 White Blood Count 6.4 # Red Blood Count 2.79 L Hemoglobin 7.9 L Hematocrit 24.3 L Mean Corpuscular Volume 87.1 Mean Corpuscular Hemoglobin 28.3 L Mean Corpuscular 32.5 Hemoglobin Concent Red Cell Distribution Width 15.5 H Platelet Count 211 Mean Platelet Volume 9.7 Immature Granulocytes % 0.800 H Neutrophils % 73.6 Lymphocytes % 5.9 L Monocytes % 11.9 H Eosinophils % 7.3 H Basophils % 0.5 Nucleated Red Blood Cells % 0.0 Immature Granulocytes # 0.050 H Neutrophils # 4.7 Lymphocytes # 0.4 L Monocytes # 0.8 Eosinophils # 0.5 Basophils # 0.0 Nucleated Red Blood Cells # 0.0 Sodium Level 145 H Potassium Level 3.9 Chloride Level 112 H Carbon Dioxide Level 20 L Anion Gap 13 # Blood Urea Nitrogen 55 H Creatinine 1.06 Est Glomerular Filtrat > 60 Rate mL/min Glucose Level 100 Calcium Level 8.0 L Phosphorus Level 2.7 Magnesium Level 1.7 Total Bilirubin 0.0 L Direct Bilirubin 0.00 Indirect Bilirubin 0.0 Aspartate Amino 66 H Transf (AST/SGOT) Alanine 21 Aminotransferase (ALT/SGPT) Alkaline Phosphatase 60 Total Protein 6.5 Albumin 2.7 L Globulin 3.80 H Albumin/Globulin Ratio 0.71 Lipase 2688 H Lab Scanned Report BLOOD TRANSFUSION Subjective 24 Hr Interval Summary Free Text/Dictation bleeding noted from mouth/gingiva Exam/Review of Systems Vital Signs Vitals Vital Signs Date Temp Pulse Resp B/P (MAP) Pulse Ox O2 O2 Flow FiO2 Time Delivery Rate 04/04/18 96 08:00 04/04/18 20 113/84 100 Mechanical 07:00 (94) Ventilator 04/04/18 30 04:50 04/04/18 99.2 04:00 Intake and Output 04/03/18 04/03/18 04/04/18 1515:00 23:00 07:00 IntakeIntake Total 1130 ml 495 ml 175 ml OutputOutput Total 315 ml 550 ml 530 ml BalanceBalance 815 ml -55 ml -355 ml Exam Constitutional:Well-developed. Well-nourished., tachpnic HEENT:Normocephalic. Atraumatic.Pupils were equal round reactive to light. Significant amount of bright red blood present within the oropharynx. Chapped lips that were actively bleeding..+old dried blood around lips Neck: . Tracheostomy site clean dry and intact Respiratory: lungs clear Cardiovascular: tachycardic GI: Abdomen was soft. Nontender. Non Distended. No pulsatile abdominal masses or bruits. No rebound. No guarding. Bowel sounds were present and normal. Muscle skeletal: Muscle atrophy of the bilateral lower extremities. Patient has limited range of motion of the right upper and lower extremity but was able to flex extend at the elbow and lift his right upper extremity against gravity. Patient has no movement of the bilateral lower extremities multiple wounds rt PICC Medications Medications Current Medications Acetaminophen (Tylenol Tab) 1,000 mg Q4 PRN PO MODERATE PAIN LEVEL 4-6; Start 03/31/18 at 18:00 Acetaminophen (Tylenol Tab) 650 mg Q4 PRN GTB MILD PAIN LEVEL 1-3 Last administered on 03/31/18at 23:41; Admin Dose 650 MG; Start 03/31/18 at 18:00 Albuterol (Proventil 0.083% (Neb)) 2.5 mg Q3H PRN NEB WHEEZING AND SOB; Start 03/31/18 at 18:00 Albuterol (Proventil 0.083% (Neb)) 2.5 mg Q6 PRN NEB WHEEZING AND SOB; Start 03/31/18 at 18:00 Ascorbic Acid (Vitamin C) 500 mg DAILY GTB Last administered on 04/04/18 08:58; Admin Dose 500 MG; Start 04/01/18 at 09:00 Bisacodyl (Dulcolax Supp) 10 mg DAILY PRN [place] CONSTIPATION; Start 03/31/18 at 18:00 Carvedilol (Coreg) 25 mg BID GTB Last administered on 04/04/18 08:59; Admin Dose 25 MG; Start 03/31/18 at 21:00 Midodrine (Proamatine) 5 mg BID GTB Last administered on 04/04/18at 08:58; Admin Dose 5 MG; Start 03/31/18 at 21:00 Multivit/Ca Carb/ B Cmplx/FA/Prenat (Sofy-Sandoval) 1 tab DAILY GTB Last administered on 04/04/18 08:58; Admin Dose 1 TAB; Start 04/01/18 at 09:00 Zinc Sulfate (Zinc Sulfate) 220 mg DAILY GTB Last administered on 04/04/18 08:59; Admin Dose 220 MG; Start 04/01/18 at 09:00 IV Flush (NS 3 ml) 3 ml PER PROTOCOL IV ; Start 03/31/18 at 18:30 Ondansetron HCl (Zofran Inj) 4 mg Q6H PRN IV NAUSEA AND/OR VOMITING; Start 03/31/18 at 18:30 Acetaminophen (Tylenol Tab) 650 mg Q6H PRN PO PAIN LEVEL 1-3 OR FEVER; Start 03/31/18 at 18:30 Acetaminophen (Tylenol Supp) 650 mg Q6H PRN [place] PAIN LEVEL 1-3 OR FEVER Last administered on 04/02/18at 20:38; Admin Dose 650 MG; Start 03/31/18 at 18:30 Docusate Sodium (Colace) 100 mg Q12H PRN PO CONSTIPATION; Start 03/31/18 at 18:30 Pantoprazole (Protonix Iv) 40 mg DAILY@06 IV Last administered on 04/04/18 05:22; Admin Dose 40 MG; Start 04/01/18 at 06:00 Vancomycin HCl (Vanco Iv Per Pharmacy) VANCOMYCIN PER PHARMACY PER PROTOCOL XX ; Start 04/01/18 at 13:00 Norepinephrine 250 ml @ 1.875 mls/ hr TITRATE IV ; Start 04/01/18 at 21:00 Morphine Sulfate (morphine SULFATE (PF)) 2 mg Q4H PRN IV PAIN LEVEL 6-10 Last administered on 04/04/18at 00:25; Admin Dose 2 MG; Start 04/01/18 at 21:00 Alteplase, Recombinant (Cathflo (Activase)) 2 mg MAY REPEAT X1 PRN CATHETER IF CATHETER REMAINS OCCULUDED Last administered on 04/03/18at 04:24; Admin Dose 2 MG; Start 04/01/18 at 21:00 Fluconazole 100 ml @ 100 mls/hr Q24H IVPB Last administered on 04/03/18at 13:01; Admin Dose 100 MLS/HR; Start 04/02/18 at 12:00 Vancomycin HCl 250 ml @ 125 mls/hr Q24H IVPB Last administered on 04/03/18at 10:11; Admin Dose 125 MLS/HR; Start 04/03/18 at 09:00 Cefepime HCl 50 ml @ 100 mls/hr Q24H IVPB Last administered on 04/04/18at 08:55; Admin Dose 100 MLS/HR; Start 04/04/18 at 09:00 Collagenase (Santyl) 1 applic DAILY TOP Last administered on 04/03/18at 13:02; Admin Dose 1 APPLIC; Start 04/03/18 at 12:00 Lorazepam (Ativan) 2 mg Q4H PRN IV restless, agitation, anxiety Last administered on 04/04/18at 09:05; Admin Dose 2 MG; Start 04/03/18 at 17:00 Sodium Chloride 1,000 ml @ 50 mls/hr Q20H IV ; Start 04/04/18 at 10:00 TAMARA GRAJEDA MD Apr 04, 2018 10:21
[2018-04-04] MEDS: VANCOMYCIN 1 GM 250 ML IVPB SCH (10:30)
[2018-04-04] MEDS: SOD CHLORIDE 0.45% 1,000 ML IV SCH ×2 (10:33→16:42)
[2018-04-04] MEDS: COLLAGENASE 5 GM (UD JAR) TOP SCH (10:34)
[2018-04-04] MEDS: FLUCONAZOLE 200 MG (PMX) 100 ML IVPB SCH (11:50)
--- NOTE | 2018-04-04 15:01 | CONS ---
Date/Time of Note Date/Time of Note DATE: 04/04/18 TIME: 15:00 Assessment/Plan Assessment/Plan Hospital Course Transfer to telemetry. Looks comfortable afebrile. Sacral wound culture growing staph aureus preliminary WBC 6.4 platelets 211 neutrophils 73.6 BUN 55 creatinine 1.06 Indwelling: Peg, Schwartz, right upper extremity PICC line, tracheostomy Microbiology: Blood cultures since admission negative, urine culture growing Breanne albicans Antimicrobials: Fluconazole, cefepime, vancomycin Diagnostics: Chest x-ray revealed no focal consolidation vascular congestion or pleural effusion no pneumothorax. Abdominal ultrasound revealed cholelithiasis no evidence of ascites Physical examination: Chronically ill-appearing elderly man who is noncommunicative in no distress. Head atraumatic normocephalic sclera nonicteric neck is supple tracheostomy present chest rise symmetrical breath sounds diminished bases heart: S1-S2. Abdomen soft bowel sounds present. Extremities without cyanosis. Skin: Patient has multiple pressure sores he has a dry blood on the right lower lip Assessment: 1. Sepsis, status post shock 2. Breanne albicans UTI 3. History of cardiomyopathy 4. Chronic respiratory failure 5. Ongoing gingival bleeding, s/p ENT eval 6. Sacral decub Plan: Remains unchanged, hemodynamically stable, continue on current antibiotics and await for final wound cultures, vent management per pulmonary Result Diagram: 04/04/18 0420 04/04/18 0430 Results 24hrs Laboratory Tests Test 04/04/18 04:20 04/04/18 04:30 04/04/18 04:56 White Blood Count 6.4 # Red Blood Count 2.79 L Hemoglobin 7.9 L Hematocrit 24.3 L Mean Corpuscular Volume 87.1 Mean Corpuscular Hemoglobin 28.3 L Mean Corpuscular 32.5 Hemoglobin Concent Red Cell Distribution Width 15.5 H Platelet Count 211 Mean Platelet Volume 9.7 Immature Granulocytes % 0.800 H Neutrophils % 73.6 Lymphocytes % 5.9 L Monocytes % 11.9 H Eosinophils % 7.3 H Basophils % 0.5 Nucleated Red Blood Cells % 0.0 Immature Granulocytes # 0.050 H Neutrophils # 4.7 Lymphocytes # 0.4 L Monocytes # 0.8 Eosinophils # 0.5 Basophils # 0.0 Nucleated Red Blood Cells # 0.0 Sodium Level 145 H Potassium Level 3.9 Chloride Level 112 H Carbon Dioxide Level 20 L Anion Gap 13 # Blood Urea Nitrogen 55 H Creatinine 1.06 Est Glomerular Filtrat > 60 Rate mL/min Glucose Level 100 Calcium Level 8.0 L Phosphorus Level 2.7 Magnesium Level 1.7 Total Bilirubin 0.0 L Direct Bilirubin 0.00 Indirect Bilirubin 0.0 Aspartate Amino 66 H Transf (AST/SGOT) Alanine 21 Aminotransferase (ALT/SGPT) Alkaline Phosphatase 60 Total Protein 6.5 Albumin 2.7 L Globulin 3.80 H Albumin/Globulin Ratio 0.71 Lipase 2688 H Lab Scanned Report BLOOD TRANSFUSION Consultation Date/Type/Reason Admit Date/Time Mar 31, 2018 at 17:58 Initial Consult Date 04/02/18 Type of Consult id Exam/Review of Systems Vital Signs Vitals Vital Signs Date Temp Pulse Resp B/P (MAP) Pulse Ox O2 O2 Flow FiO2 Time Delivery Rate 04/04/18 88 30 100 30 13:49 04/04/18 118/77 Mechanical 12:00 (91) Ventilator 04/04/18 99.4 12:00 Intake and Output 04/03/18 04/03/18 04/04/18 1414:59 22:59 06:59 IntakeIntake Total 1150 ml 545 ml 210 ml OutputOutput Total 310 ml 535 ml 585 ml BalanceBalance 840 ml 10 ml -375 ml Medications Medications Current Medications Acetaminophen (Tylenol Tab) 1,000 mg Q4 PRN PO MODERATE PAIN LEVEL 4-6; Start 03/31/18 at 18:00 Acetaminophen (Tylenol Tab) 650 mg Q4 PRN GTB MILD PAIN LEVEL 1-3 Last administered on 03/31/18at 23:41; Admin Dose 650 MG; Start 03/31/18 at 18:00 Albuterol (Proventil 0.083% (Neb)) 2.5 mg Q3H PRN NEB WHEEZING AND SOB; Start 03/31/18 at 18:00 Albuterol (Proventil 0.083% (Neb)) 2.5 mg Q6 PRN NEB WHEEZING AND SOB; Start 03/31/18 at 18:00 Ascorbic Acid (Vitamin C) 500 mg DAILY GTB Last administered on 04/04/18at 08:58; Admin Dose 500 MG; Start 04/01/18 at 09:00 Bisacodyl (Dulcolax Supp) 10 mg DAILY PRN [place] CONSTIPATION; Start 03/31/18 at 18:00 Carvedilol (Coreg) 25 mg BID GTB Last administered on 04/04/18 08:59; Admin Dose 25 MG; Start 03/31/18 at 21:00 Midodrine (Proamatine) 5 mg BID GTB Last administered on 04/04/18at 08:58; Admin Dose 5 MG; Start 03/31/18 at 21:00 Multivit/Ca Carb/ B Cmplx/FA/Prenat (Sofy-Sandoval) 1 tab DAILY GTB Last administered on 04/04/18at 08:58; Admin Dose 1 TAB; Start 04/01/18 at 09:00 Zinc Sulfate (Zinc Sulfate) 220 mg DAILY GTB Last administered on 04/04/18 08:59; Admin Dose 220 MG; Start 04/01/18 at 09:00 IV Flush (NS 3 ml) 3 ml PER PROTOCOL IV ; Start 03/31/18 at 18:30 Ondansetron HCl (Zofran Inj) 4 mg Q6H PRN IV NAUSEA AND/OR VOMITING; Start 03/31/18 at 18:30 Acetaminophen (Tylenol Tab) 650 mg Q6H PRN PO PAIN LEVEL 1-3 OR FEVER; Start 03/31/18 at 18:30 Acetaminophen (Tylenol Supp) 650 mg Q6H PRN [place] PAIN LEVEL 1-3 OR FEVER Last administered on 04/02/18at 20:38; Admin Dose 650 MG; Start 03/31/18 at 18:30 Docusate Sodium (Colace) 100 mg Q12H PRN PO CONSTIPATION; Start 03/31/18 at 18:30 Pantoprazole (Protonix Iv) 40 mg DAILY@06 IV Last administered on 04/04/18at 05:22; Admin Dose 40 MG; Start 04/01/18 at 06:00 Vancomycin HCl (Vanco Iv Per Pharmacy) VANCOMYCIN PER PHARMACY PER PROTOCOL XX ; Start 04/01/18 at 13:00 Morphine Sulfate (morphine SULFATE (PF)) 2 mg Q4H PRN IV PAIN LEVEL 6-10 Last administered on 04/04/18at 11:20; Admin Dose 2 MG; Start 04/01/18 at 21:00 Alteplase, Recombinant (Cathflo (Activase)) 2 mg MAY REPEAT X1 PRN CATHETER IF CATHETER REMAINS OCCULUDED Last administered on 04/03/18at 04:24; Admin Dose 2 MG; Start 04/01/18 at 21:00 Fluconazole 100 ml @ 100 mls/hr Q24H IVPB Last administered on 04/04/18 11:50; Admin Dose 100 MLS/HR; Start 04/02/18 at 12:00 Vancomycin HCl 250 ml @ 125 mls/hr Q24H IVPB Last administered on 04/04/18 10:30; Admin Dose 125 MLS/HR; Start 04/03/18 at 09:00 Cefepime HCl 50 ml @ 100 mls/hr Q24H IVPB Last administered on 04/04/18 08:55; Admin Dose 100 MLS/HR; Start 04/04/18 at 09:00 Collagenase (Santyl) 1 applic DAILY TOP Last administered on 04/04/18 10:34; Admin Dose 1 APPLIC; Start 04/03/18 at 12:00 Lorazepam (Ativan) 2 mg Q4H PRN IV restless, agitation, anxiety Last administered on 04/04/18 09:05; Admin Dose 2 MG; Start 04/03/18 at 17:00 Sodium Chloride 1,000 ml @ 50 mls/hr Q20H IV Last administered on 04/04/18 10:33; Admin Dose 50 MLS/HR; Start 04/04/18 at 10:00 RENÉ GARCIA NP Apr 04, 2018 15:01
[2018-04-04] MEDS ORDERED: ALTEPLASE (CATHFLO) 2 MG INJ CATHETER ONE (15:30)
[2018-04-04] MEDS: ACETAMINOPHEN 325 MG TAB PO PRN (18:46)
[2018-04-04] MEDS: MEROPENEM 500MG/50 ML (PMX) 50 ML IVPB SCH (21:47)
[2018-04-04] MEDS: MIDODRINE 2.5 MG TAB GTB SCH (22:59)
[2018-04-04] MEDS ORDERED: morphine LIQ (10 MG/5 ML) CUP PO PRN (23:00)
[2018-04-05] VITALS (22 sets, daily range): BP systolic 97–146; BP diastolic 68–90; PULSE 78–107; RESP 16–32
[2018-04-05] MEDS: BALSAM PERU/CASTOR OIL 60 GM TUBE TOP SCH ×3 (00:56→22:46)
[2018-04-05] MEDS: PANTOPRAZOLE 40 MG INJ IV SCH (05:40)
[2018-04-05] MEDS: MEROPENEM 500MG/50 ML (PMX) 50 ML IVPB SCH ×3 (05:43→22:47)
[2018-04-05] MEDS: SOD CHLORIDE 0.45% 1,000 ML IV SCH ×2 (05:48→22:51)
[2018-04-05] MEDS: MIDODRINE 2.5 MG TAB GTB SCH ×2 (09:00→22:45)
[2018-04-05] MEDS: ASCORBIC ACID 500 MG TAB GTB SCH (09:20)
[2018-04-05] MEDS: ZINC SULFATE 220 MG CAP GTB SCH (09:20)
[2018-04-05] MEDS: MULTIVIT/CA CARB/B CMPLX/FA TAB GTB SCH (09:20)
[2018-04-05] MEDS: VANCOMYCIN 1 GM 250 ML IVPB SCH (09:23)
[2018-04-05] MEDS: COLLAGENASE 5 GM (UD JAR) TOP SCH (09:23)
[2018-04-05] MEDS: LORAZEPAM 2 MG INJ IV PRN ×2 (09:43→20:58)
--- NOTE | 2018-04-05 10:55 | CONS ---
Date/Time of Note Date/Time of Note DATE: 04/05/18 TIME: 10:53 Consult Date/Type/Reason Admit Date/Time Mar 31, 2018 at 17:58 Initial Consult Date 04/02/18 Type of Consultation: Pulmonary Subjective Patient stable this morning no respiratory distress Objective Vital Signs Date Temp Pulse Resp B/P (MAP) Pulse Ox O2 O2 Flow FiO2 Time Delivery Rate 04/05/18 102 08:06 04/05/18 101.2 16 146/90 100 07:51 (108) 04/05/18 30 05:35 04/04/18 [place] 12:00 l Ventilato r Intake and Output 04/04/18 04/04/18 04/05/18 1515:00 23:00 07:00 IntakeIntake Total 175 ml 250 ml OutputOutput Total 1500 ml 700 ml 1000 ml BalanceBalance -1325 ml -450 ml -1000 ml Exam PHYSICAL EXAMINATION GENERAL: Chronically ill-appearing gentleman on mechanical ventilation VITAL SIGNS: see below. HEENT: Pupils equal, round, and reactive to light. Tracheostomy site clean and i ntact. CARDIAC: S1, S2, 1/6 systolic ejection murmur CHEST: Diminished air entry bilaterally. ABDOMEN: Mildly distended. Bowel sounds present no guarding or rebound EXTREMITIES: No cyanosis, clubbing edema +1 NEUROLOGIC: Generalized weakness Results/Medications Result Diagram: 04/05/18 0626 04/05/18 0625 Results 24 hrs Laboratory Tests Test 04/05/18 06:25 04/05/18 06:26 Sodium Level 142 Potassium Level 3.8 Chloride Level 110 Carbon Dioxide Level 21 Anion Gap 11 Blood Urea Nitrogen 36 #H Creatinine 0.86 Est Glomerular Filtrat Rate mL/min > 60 Glucose Level 98 Calcium Level 8.0 L White Blood Count 8.0 # Red Blood Count 2.76 L Hemoglobin 7.8 L Hematocrit 24.2 L Mean Corpuscular Volume 87.7 Mean Corpuscular Hemoglobin 28.3 L Mean Corpuscular Hemoglobin Concent 32.2 Red Cell Distribution Width 15.1 H Platelet Count 214 Mean Platelet Volume 9.9 Immature Granulocytes % 1.100 H Neutrophils % 77.0 Lymphocytes % 5.7 L Monocytes % 12.2 H Eosinophils % 3.5 Basophils % 0.5 Nucleated Red Blood Cells % 0.0 Immature Granulocytes # 0.090 H Neutrophils # 6.1 Lymphocytes # 0.5 L Monocytes # 1.0 H Eosinophils # 0.3 Basophils # 0.0 Nucleated Red Blood Cells # 0.0 Phosphorus Level 2.2 L Magnesium Level 1.5 L Medications Current Medications Acetaminophen (Tylenol Tab) 1,000 mg Q4 PRN PO MODERATE PAIN LEVEL 4-6; Start 03/31/18 at 18:00 Acetaminophen (Tylenol Tab) 650 mg Q4 PRN GTB MILD PAIN LEVEL 1-3 Last administered on 03/31/18at 23:41; Admin Dose 650 MG; Start 03/31/18 at 18:00 Albuterol (Proventil 0.083% (Neb)) 2.5 mg Q3H PRN NEB WHEEZING AND SOB; Start 03/31/18 at 18:00 Albuterol (Proventil 0.083% (Neb)) 2.5 mg Q6 PRN NEB WHEEZING AND SOB; Start 03/31/18 at 18:00 Ascorbic Acid (Vitamin C) 500 mg DAILY GTB Last administered on 04/05/18 09:20; Admin Dose 500 MG; Start 04/01/18 at 09:00 Bisacodyl (Dulcolax Supp) 10 mg DAILY PRN [place] CONSTIPATION; Start 03/31/18 at 18:00 Carvedilol (Coreg) 25 mg BID GTB Last administered on 04/05/18 09:21; Admin Dose 25 MG; Start 03/31/18 at 21:00 Multivit/Ca Carb/ B Cmplx/FA/Prenat (Sofy-Sandoval) 1 tab DAILY GTB Last administered on 04/05/18 09:20; Admin Dose 1 TAB; Start 04/01/18 at 09:00 Zinc Sulfate (Zinc Sulfate) 220 mg DAILY GTB Last administered on 04/05/18 09:20; Admin Dose 220 MG; Start 04/01/18 at 09:00 IV Flush (NS 3 ml) 3 ml PER PROTOCOL IV ; Start 03/31/18 at 18:30 Ondansetron HCl (Zofran Inj) 4 mg Q6H PRN IV NAUSEA AND/OR VOMITING; Start 03/31/18 at 18:30 Acetaminophen (Tylenol Tab) 650 mg Q6H PRN PO PAIN LEVEL 1-3 OR FEVER Last administered on 04/04/18at 18:46; Admin Dose 650 MG; Start 03/31/18 at 18:30 Acetaminophen (Tylenol Supp) 650 mg Q6H PRN [place] PAIN LEVEL 1-3 OR FEVER Last administered on 04/02/18 20:38; Admin Dose 650 MG; Start 03/31/18 at 18:30 Docusate Sodium (Colace) 100 mg Q12H PRN PO CONSTIPATION; Start 03/31/18 at 18:30 Pantoprazole (Protonix Iv) 40 mg DAILY@06 IV Last administered on 04/05/18at 05:40; Admin Dose 40 MG; Start 04/01/18 at 06:00 Vancomycin HCl (Vanco Iv Per Pharmacy) VANCOMYCIN PER PHARMACY PER PROTOCOL XX ; Start 04/01/18 at 13:00 Alteplase, Recombinant (Cathflo (Activase)) 2 mg MAY REPEAT X1 PRN CATHETER IF CATHETER REMAINS OCCULUDED Last administered on 04/03/18 04:24; Admin Dose 2 MG; Start 04/01/18 at 21:00 Fluconazole 100 ml @ 100 mls/hr Q24H IVPB Last administered on 04/04/18at 11:50; Admin Dose 100 MLS/HR; Start 04/02/18 at 12:00 Vancomycin HCl 250 ml @ 125 mls/hr Q24H IVPB Last administered on 04/05/18 09:23; Admin Dose 125 MLS/HR; Start 04/03/18 at 09:00 Collagenase (Santyl) 1 applic DAILY TOP Last administered on 04/05/18at 09:23; Admin Dose 1 APPLIC; Start 04/03/18 at 12:00 Sodium Chloride 1,000 ml @ 50 mls/hr Q20H IV Last administered on 04/04/18 16:42; Admin Dose 50 MLS/HR; Start 04/04/18 at 10:00 Meropenem/Sodium Chloride 50 ml @ 100 mls/hr Q8 IVPB Last administered on 04/05/18 05:43; Admin Dose 100 MLS/HR; Start 04/04/18 at 22:00 Midodrine (Proamatine) 5 mg BID GTB Last administered on 04/04/18 22:59; Admin Dose 5 MG; Start 04/04/18 at 22:00 Morphine Sulfate (morphine) 6 mg Q4H PRN GTB SEVERE PAIN LEVEL 6-10; Start 04/04/18 at 23:00 Lorazepam (Ativan) 2 mg Q4H PRN IV restless, agitation, anxiety Last administered on 04/05/18at 09:43; Admin Dose 2 MG; Start 04/05/18 at 10:00 Assessment/Plan Chief Complaint/Hosp Course Assessment 1. Vent dependent respiratory failure 2. Anemia from upper airway bleed 3. Chronic encephalopathy 4. Dysphagia with G-tube Plan 1. Monitor H&H consider infusion of another unit 2. Continue mechanical ventilation 3. Feeding as tolerated 4. DVT and GI prophylaxis DC planning? SIR[facility]ISANO MD, [facility] Apr 05, 2018 10:55
[2018-04-05] MEDS: ACETAMINOPHEN 325 MG TAB PO PRN (11:57)
[2018-04-05] MEDS: FLUCONAZOLE 200 MG (PMX) 100 ML IVPB SCH (13:43)
--- NOTE | 2018-04-05 15:34 | CONS ---
Date/Time of Note Date/Time of Note DATE: 04/05/18 TIME: 15:32 Assessment/Plan Assessment/Plan Hospital Course Patient is noncommunicative withdraws to pain, family at bedside. He continues to spike fevers with a T-max of 102.2 WBC 8 H&H 7.8 and 24.2 platelets 214 neutrophils 77 BUN 36 creatinine 0.86 lipase 2688 Microbiology: Urine culture grew Breanne albicans blood cultures remain negative Neer swab positive for MRSA sacral wound culture growing MRSA Indwelling: Peg, Schwartz, right upper extremity PICC line, tracheostomy Antimicrobials: Fluconazole, Merrem, vancomycin Physical examination: Chronically ill-appearing elderly man who is noncommunicative in no distress. Head atraumatic normocephalic sclera nonicteric neck is supple tracheostomy present chest rise symmetrical breath sounds diminished bases heart: S1-S2. Abdomen soft bowel sounds present. Extremities without cyanosis. Skin: Patient has multiple pressure sores he has a dry blood on the right lower lip Assessment: 1. Sepsis with ongoing fevers 2. Acute pancreatitis rule out abscess 3. Breanne albicans UTI 4. History of cardiomyopathy 5. Chronic respiratory failure 6. Ongoing gingival bleeding, s/p ENT eval 6. MRSA infected sacral decub Plan: Clinically unchanged, with ongoing fevers, lipase trending down, but will keep him on current antibiotics and order CT abdomen pelvis and brain CT as family is concerned that he is not responsive as before Result Diagram: 04/05/18 0626 04/05/18 0625 Results 24hrs Laboratory Tests Test 04/05/18 06:25 04/05/18 06:26 Sodium Level 142 Potassium Level 3.8 Chloride Level 110 Carbon Dioxide Level 21 Anion Gap 11 Blood Urea Nitrogen 36 #H Creatinine 0.86 Est Glomerular Filtrat Rate mL/min > 60 Glucose Level 98 Calcium Level 8.0 L White Blood Count 8.0 # Red Blood Count 2.76 L Hemoglobin 7.8 L Hematocrit 24.2 L Mean Corpuscular Volume 87.7 Mean Corpuscular Hemoglobin 28.3 L Mean Corpuscular Hemoglobin Concent 32.2 Red Cell Distribution Width 15.1 H Platelet Count 214 Mean Platelet Volume 9.9 Immature Granulocytes % 1.100 H Neutrophils % 77.0 Lymphocytes % 5.7 L Monocytes % 12.2 H Eosinophils % 3.5 Basophils % 0.5 Nucleated Red Blood Cells % 0.0 Immature Granulocytes # 0.090 H Neutrophils # 6.1 Lymphocytes # 0.5 L Monocytes # 1.0 H Eosinophils # 0.3 Basophils # 0.0 Nucleated Red Blood Cells # 0.0 Phosphorus Level 2.2 L Magnesium Level 1.5 L Consultation Date/Type/Reason Admit Date/Time Mar 31, 2018 at 17:58 Initial Consult Date 04/02/18 Type of Consult id Exam/Review of Systems Vital Signs Vitals Vital Signs Date Temp Pulse Resp B/P (MAP) Pulse Ox O2 O2 Flow FiO2 Time Delivery Rate 04/05/18 99.0 12:45 04/05/18 96 12:00 04/05/18 22 97/68 (78) 100 11:52 04/05/18 30 08:00 04/04/18 Mechanical 12:00 Ventilator Intake and Output 04/04/18 04/04/18 04/05/18 1515:00 23:00 07:00 IntakeIntake Total 175 ml 250 ml OutputOutput Total 1500 ml 700 ml 1000 ml BalanceBalance -1325 ml -450 ml -1000 ml Medications Medications Current Medications Acetaminophen (Tylenol Tab) 1,000 mg Q4 PRN PO MODERATE PAIN LEVEL 4-6; Start 03/31/18 at 18:00 Acetaminophen (Tylenol Tab) 650 mg Q4 PRN GTB MILD PAIN LEVEL 1-3 Last administered on 03/31/18at 23:41; Admin Dose 650 MG; Start 03/31/18 at 18:00 Albuterol (Proventil 0.083% (Neb)) 2.5 mg Q3H PRN NEB WHEEZING AND SOB; Start 03/31/18 at 18:00 Albuterol (Proventil 0.083% (Neb)) 2.5 mg Q6 PRN NEB WHEEZING AND SOB; Start 03/31/18 at 18:00 Ascorbic Acid (Vitamin C) 500 mg DAILY GTB Last administered on 04/05/18at 09:20; Admin Dose 500 MG; Start 04/01/18 at 09:00 Bisacodyl (Dulcolax Supp) 10 mg DAILY PRN [place] CONSTIPATION; Start 03/31/18 at 18:00 Carvedilol (Coreg) 25 mg BID GTB Last administered on 04/05/18at 09:21; Admin Dose 25 MG; Start 03/31/18 at 21:00 Multivit/Ca Carb/ B Cmplx/FA/Prenat (Sofy-Sandoval) 1 tab DAILY GTB Last administered on 04/05/18 09:20; Admin Dose 1 TAB; Start 04/01/18 at 09:00 Zinc Sulfate (Zinc Sulfate) 220 mg DAILY GTB Last administered on 04/05/18 09:20; Admin Dose 220 MG; Start 04/01/18 at 09:00 IV Flush (NS 3 ml) 3 ml PER PROTOCOL IV ; Start 03/31/18 at 18:30 Ondansetron HCl (Zofran Inj) 4 mg Q6H PRN IV NAUSEA AND/OR VOMITING; Start 03/31/18 at 18:30 Acetaminophen (Tylenol Tab) 650 mg Q6H PRN PO PAIN LEVEL 1-3 OR FEVER Last administered on 04/05/18 11:57; Admin Dose 650 MG; Start 03/31/18 at 18:30 Acetaminophen (Tylenol Supp) 650 mg Q6H PRN [place] PAIN LEVEL 1-3 OR FEVER Last administered on 04/02/18at 20:38; Admin Dose 650 MG; Start 03/31/18 at 18:30 Docusate Sodium (Colace) 100 mg Q12H PRN [place] CONSTIPATION; Start 03/31/18 at 18:30 Pantoprazole (Protonix Iv) 40 mg DAILY@06 IV Last administered on 04/05/18at 05:40; Admin Dose 40 MG; Start 04/01/18 at 06:00 Vancomycin HCl (Vanco Iv Per Pharmacy) VANCOMYCIN PER PHARMACY PER PROTOCOL XX ; Start 04/01/18 at 13:00 Alteplase, Recombinant (Cathflo (Activase)) 2 mg MAY REPEAT X1 PRN CATHETER IF CATHETER REMAINS OCCULUDED Last administered on 04/03/18 04:24; Admin Dose 2 MG; Start 04/01/18 at 21:00 Fluconazole 100 ml @ 100 mls/hr Q24H IVPB Last administered on 04/05/18 13:4 3; Admin Dose 100 MLS/HR; Start 04/02/18 at 12:00 Vancomycin HCl 250 ml @ 125 mls/hr Q24H IVPB Last administered on 04/05/18 09:23; Admin Dose 125 MLS/HR; Start 04/03/18 at 09:00 Collagenase (Santyl) 1 applic DAILY TOP Last administered on 04/05/18 09:23; Admin Dose 1 APPLIC; Start 04/03/18 at 12:00 Sodium Chloride 1,000 ml @ 50 mls/hr Q20H IV Last administered on 04/04/18at 16:42; Admin Dose 50 MLS/HR; Start 04/04/18 at 10:00 Meropenem/Sodium Chloride 50 ml @ 100 mls/hr Q8 IVPB Last administered on 04/05/18 15:06; Admin Dose 100 MLS/HR; Start 04/04/18 at 22:00 Midodrine (Proamatine) 5 mg BID GTB Last administered on 04/04/18at 22:59; Admin Dose 5 MG; Start 04/04/18 at 22:00 Morphine Sulfate (morphine) 6 mg Q4H PRN GTB SEVERE PAIN LEVEL 6-10; Start 04/04/18 at 23:00 Lorazepam (Ativan) 2 mg Q4H PRN IV restless, agitation, anxiety Last administered on 04/05/18at 09:43; Admin Dose 2 MG; Start 04/05/18 at 10:00 RENÉ GARCIA NP Apr 05, 2018 15:34
--- NOTE | 2018-04-05 16:28 | PN ---
Date/Time of Note Date/Time of Note DATE: 04/05/18 TIME: 16:27 Assessment/Plan VTE Prophylaxis Risk score (from [facility] [place])>0 risk: 10 SCD applied (from [facility] [place]): Yes SCD contraindicated: bilateral LE trauma Pharmacological prophylaxis: NA/contraindicated, heparin Pharm contraindication: bleeding Lines/Catheters IV Catheter Type (from [facility] PICC Line Central line still needed: Yes Urinary Cath still in place: Yes Reason Cath still needed: urinary retention Assessment/Plan Hospital Course # Oral gingival bleeding likely due to dentures, seen by ENT s/p endoscopy # Sepsis with Fevers with hx Pneumonia +UTI and ? Pancreatitis +multiple wounds, ucx+ lisa # Blood loss anemia due to #1 # VDRF # CKD with worseing renal failure # Metabolic acidosis # DILATED CARDIOMYOPATHY # HX ALCOHOL ABUSE # Multiple wounds > decub # hypomagnesemia Assessment/Plan - bld cx neg so far - wound culture - wound nurse to see no debridement - iv abx with vanco/cefepime, cw diflucan, abx per ID - Cr improving - pul. consult> vent management - no blood thinners due to anemia - GI prophylaxsis - cw midodrine - monitor oral bleeding Result Diagram: 04/05/18 0626 04/05/18 0625 Results 24hrs Laboratory Tests Test 04/05/18 06:25 04/05/18 06:26 Sodium Level 142 Potassium Level 3.8 Chloride Level 110 Carbon Dioxide Level 21 Anion Gap 11 Blood Urea Nitrogen 36 #H Creatinine 0.86 Est Glomerular Filtrat Rate mL/min > 60 Glucose Level 98 Calcium Level 8.0 L White Blood Count 8.0 # Red Blood Count 2.76 L Hemoglobin 7.8 L Hematocrit 24.2 L Mean Corpuscular Volume 87.7 Mean Corpuscular Hemoglobin 28.3 L Mean Corpuscular Hemoglobin Concent 32.2 Red Cell Distribution Width 15.1 H Platelet Count 214 Mean Platelet Volume 9.9 Immature Granulocytes % 1.100 H Neutrophils % 77.0 Lymphocytes % 5.7 L Monocytes % 12.2 H Eosinophils % 3.5 Basophils % 0.5 Nucleated Red Blood Cells % 0.0 Immature Granulocytes # 0.090 H Neutrophils # 6.1 Lymphocytes # 0.5 L Monocytes # 1.0 H Eosinophils # 0.3 Basophils # 0.0 Nucleated Red Blood Cells # 0.0 Phosphorus Level 2.2 L Magnesium Level 1.5 L Subjective 24 Hr Interval Summary Subjective hx not possible: pt non-verbal Exam/Review of Systems Vital Signs Vitals Vital Signs Date Temp Pulse Resp B/P (MAP) Pulse Ox O2 O2 Flow FiO2 Time Delivery Rate 04/05/18 99.6 81 20 101/70 97 15:47 (80) 04/05/18 30 08:00 04/04/18 Mechanical 12:00 Ventilator Intake and Output 04/04/18 04/04/18 04/05/18 1515:00 23:00 07:00 IntakeIntake Total 175 ml 250 ml OutputOutput Total 1500 ml 700 ml 1000 ml BalanceBalance -1325 ml -450 ml -1000 ml Exam ENMT: other (trach) Neck: supple Respiratory: diminished breath sounds Cardiovascular: regular rate and rhythm Medications Medications Current Medications Acetaminophen (Tylenol Tab) 1,000 mg Q4 PRN PO MODERATE PAIN LEVEL 4-6; Start 03/31/18 at 18:00 Acetaminophen (Tylenol Tab) 650 mg Q4 PRN GTB MILD PAIN LEVEL 1-3 Last administered on 03/31/18at 23:41; Admin Dose 650 MG; Start 03/31/18 at 18:00 Albuterol (Proventil 0.083% (Neb)) 2.5 mg Q3H PRN NEB WHEEZING AND SOB; Start 03/31/18 at 18:00 Albuterol (Proventil 0.083% (Neb)) 2.5 mg Q6 PRN NEB WHEEZING AND SOB; Start 03/31/18 at 18:00 Ascorbic Acid (Vitamin C) 500 mg DAILY GTB Last administered on 04/05/18at 09:20; Admin Dose 500 MG; Start 04/01/18 at 09:00 Bisacodyl (Dulcolax Supp) 10 mg DAILY PRN [place] CONSTIPATION; Start 03/31/18 at 18:00 Carvedilol (Coreg) 25 mg BID GTB Last administered on 04/05/18at 09:21; Admin Dose 25 MG; Start 03/31/18 at 21:00 Multivit/Ca Carb/ B Cmplx/FA/Prenat (Sofy-Sandoval) 1 tab DAILY GTB Last administered on 04/05/18at 09:20; Admin Dose 1 TAB; Start 04/01/18 at 09:00 Zinc Sulfate (Zinc Sulfate) 220 mg DAILY GTB Last administered on 04/05/18 09:20; Admin Dose 220 MG; Start 04/01/18 at 09:00 IV Flush (NS 3 ml) 3 ml PER PROTOCOL IV ; Start 03/31/18 at 18:30 Ondansetron HCl (Zofran Inj) 4 mg Q6H PRN IV NAUSEA AND/OR VOMITING; Start 03/31/18 at 18:30 Acetaminophen (Tylenol Tab) 650 mg Q6H PRN PO PAIN LEVEL 1-3 OR FEVER Last administered on 04/05/18 11:57; Admin Dose 650 MG; Start 03/31/18 at 18:30 Acetaminophen (Tylenol Supp) 650 mg Q6H PRN [place] PAIN LEVEL 1-3 OR FEVER Last administered on 04/02/18at 20:38; Admin Dose 650 MG; Start 03/31/18 at 18:30 Docusate Sodium (Colace) 100 mg Q12H PRN PO CONSTIPATION; Start 03/31/18 at 18:30 Pantoprazole (Protonix Iv) 40 mg DAILY@06 IV Last administered on 04/05/18at 05:40; Admin Dose 40 MG; Start 04/01/18 at 06:00 Vancomycin HCl (Vanco Iv Per Pharmacy) VANCOMYCIN PER PHARMACY PER PROTOCOL XX ; Start 04/01/18 at 13:00 Alteplase, Recombinant (Cathflo (Activase)) 2 mg MAY REPEAT X1 PRN CATHETER IF CATHETER REMAINS OCCULUDED Last administered on 04/03/18at 04:24; Admin Dose 2 MG; Start 04/01/18 at 21:00 Fluconazole 100 ml @ 100 mls/hr Q24H IVPB Last administered on 04/05/18at 13:43; Admin Dose 100 MLS/HR; Start 04/02/18 at 12:00 Vancomycin HCl 250 ml @ 125 mls/hr Q24H IVPB Last administered on 04/05/18 09:23; Admin Dose 125 MLS/HR; Start 04/03/18 at 09:00 Collagenase (Santyl) 1 applic DAILY TOP Last administered on 04/05/18 09:23; Admin Dose 1 APPLIC; Start 04/03/18 at 12:00 Sodium Chloride 1,000 ml @ 50 mls/hr Q20H IV Last administered on 04/04/18at 16:42; Admin Dose 50 MLS/HR; Start 04/04/18 at 10:00 Meropenem/Sodium Chloride 50 ml @ 100 mls/hr Q8 IVPB Last administered on 04/05/18at 15:06; Admin Dose 100 MLS/HR; Start 04/04/18 at 22:00 Midodrine (Proamatine) 5 mg BID GTB Last administered on 04/04/18at 22:59; Admin Dose 5 MG; Start 04/04/18 at 22:00 Morphine Sulfate (morphine) 6 mg Q4H PRN GTB SEVERE PAIN LEVEL 6-10; Start 04/04/18 at 23:00 Lorazepam (Ativan) 2 mg Q4H PRN IV restless, agitation, anxiety Last administered on 04/05/18at 09:43; Admin Dose 2 MG; Start 04/05/18 at 10:00 Potassium Phosphate 30 mm/ Sodium Chloride 260 ml @ 65 mls/hr ONCE ONCE IVPB ; Start 04/05/18 at 16:30; Stop 04/05/18 at 20:29 Magnesium Sulfate 50 ml @ 25 mls/hr ONCE ONCE IVPB ; Start 04/05/18 at 16:30; Stop 04/05/18 at 18:29 LETITIA BLAKELY Apr 05, 2018 16:28
[2018-04-05] MEDS ORDERED: MAGNESIUM SULFATE 2 GM/50 ML 50 ML IVPB ONE (16:30)
[2018-04-05] MEDS ORDERED: POTASSIUM PHOSPHATE 30 MM in SOD CHLORIDE 0.9% 250 ML IVPB ONE (16:30)
[2018-04-05] MEDS ORDERED: IOHEXOL 300MG/ML 150 ML BTL ONE (20:47)
[2018-04-05] MEDS ORDERED: SOD CHLORIDE 0.9% 100 ML ONE (20:47)
[2018-04-06] VITALS (21 sets, daily range): BP systolic 112–135; BP diastolic 81–102; PULSE 75–107; RESP 18–29
[2018-04-06] MEDS: LORAZEPAM 2 MG INJ IV PRN (02:54)
[2018-04-06] MEDS: ACETAMINOPHEN 325 MG TAB PO PRN (03:55)
[2018-04-06] MEDS: PANTOPRAZOLE 40 MG INJ IV SCH (06:14)
[2018-04-06] MEDS: MEROPENEM 500MG/50 ML (PMX) 50 ML IVPB SCH ×3 (06:15→22:54)
[2018-04-06] MEDS: COLLAGENASE 5 GM (UD JAR) TOP SCH (10:27)
[2018-04-06] MEDS: MIDODRINE 2.5 MG TAB GTB SCH ×2 (10:29→21:34)
[2018-04-06] MEDS: ZINC SULFATE 220 MG CAP GTB SCH (10:29)
[2018-04-06] MEDS: ASCORBIC ACID 500 MG TAB GTB SCH (10:29)
[2018-04-06] MEDS: MULTIVIT/CA CARB/B CMPLX/FA TAB GTB SCH (10:29)
[2018-04-06] MEDS: BALSAM PERU/CASTOR OIL 60 GM TUBE TOP SCH ×2 (10:30→21:34)
[2018-04-06] MEDS: VANCOMYCIN 1 GM 250 ML IVPB SCH (10:30)
--- NOTE | 2018-04-06 12:40 | PN ---
Date/Time of Note Date/Time of Note DATE: 04/06/18 TIME: 12:39 Assessment/Plan VTE Prophylaxis Risk score (from [facility])>0 risk: 10 SCD applied (from [facility] [place]): Yes SCD contraindicated: other Pharmacological prophylaxis: NA/contraindicated Pharm contraindication: bleeding Lines/Catheters [facility] Central line still needed: Yes Urinary Cath still in place: Yes Reason Cath still needed: urinary retention Assessment/Plan Hospital Course # Oral gingival bleeding likely due to dentures, seen by ENT s/p endoscopy # Sepsis with Fevers with hx Pneumonia +UTI and ? Pancreatitis +multiple wounds, ucx+ lisa # Blood loss anemia due to #1 # VDRF # CKD with worseing renal failure # Metabolic acidosis # DILATED CARDIOMYOPATHY # HX ALCOHOL ABUSE # Multiple wounds > decub # hypomagnesemia Assessment/Plan - bld cx neg so far - wound culture - wound nurse to see no debridement - iv abx with vanco/cefepime, cw diflucan, abx per ID - Cr improving - pul. consult> vent management - no blood thinners due to anemia - GI prophylaxis - cw midodrine - monitor oral bleeding Result Diagram: 04/05/1862504/05/18624 Subjective 24 Hr Interval Summary Subjective hx not possible: pt non-verbal Psychological: confusion Exam/Review of Systems Vital Signs Vitals Vital Signs Date Temp Pulse Resp B/P (MAP) Pulse Ox O2 O2 Flow FiO2 Time Delivery Rate 04/06/18 97.9 107 18 112/102 100 Mechanical 11:10 (105) Ventilator 04/06/18 30 11:10 Intake and Output 04/05/18 04/05/18 04/06/18 1515:00 23:00 07:00 IntakeIntake Total 450 ml 550 ml OutputOutput Total 3400 ml BalanceBalance 450 ml -2850 ml Exam Constitutional: alert ENMT: other (dry blood around lips) Respiratory: crackles/rales, diminished breath sounds Cardiovascular: regular rate and rhythm Gastrointestinal: soft, other (g tube) Medications Medications Current Medications Acetaminophen (Tylenol Tab) 1,000 mg Q4 PRN PO MODERATE PAIN LEVEL 4-6; Start 03/31/18 at 18:00 Acetaminophen (Tylenol Tab) 650 mg Q4 PRN GTB MILD PAIN LEVEL 1-3 Last adm inistered on 03/31/18 23:41; Admin Dose 650 MG; Start 03/31/18 at 18:00 Albuterol (Proventil 0.083% (Neb)) 2.5 mg Q3H PRN NEB WHEEZING AND SOB; Start 03/31/18 at 18:00 Albuterol (Proventil 0.083% (Neb)) 2.5 mg Q6 PRN NEB WHEEZING AND SOB; Start 03/31/18 at 18:00 Ascorbic Acid (Vitamin C) 500 mg DAILY GTB Last administered on 04/06/18 10:29; Admin Dose 500 MG; Start 04/01/18 at 09:00 Bisacodyl (Dulcolax Supp) 10 mg DAILY PRN [place] CONSTIPATION; Start 03/31/18 at 18:00 Carvedilol (Coreg) 25 mg BID GTB Last administered on 04/06/18 10:29; Admin Dose 25 MG; Start 03/31/18 at 21:00 Multivit/Ca Carb/ B Cmplx/FA/Prenat (Sofy-Sandoval) 1 tab DAILY GTB Last administered on 04/06/18 10:29; Admin Dose 1 TAB; Start 04/01/18 at 09:00 Zinc Sulfate (Zinc Sulfate) 220 mg DAILY GTB Last administered on 04/06/18 10:29; Admin Dose 220 MG; Start 04/01/18 at 09:00 IV Flush (NS 3 ml) 3 ml PER PROTOCOL IV ; Start 03/31/18 at 18:30 Ondansetron HCl (Zofran Inj) 4 mg Q6H PRN IV NAUSEA AND/OR VOMITING; Start 03/31/18 at 18:30 Acetaminophen (Tylenol Tab) 650 mg Q6H PRN PO PAIN LEVEL 1-3 OR FEVER Last administered on 04/06/18at 03:55; Admin Dose 650 MG; Start 03/31/18 at 18:30 Acetaminophen (Tylenol Supp) 650 mg Q6H PRN [place] PAIN LEVEL 1-3 OR FEVER Last administered on 04/02/18at 20:38; Admin Dose 650 MG; Start 03/31/18 at 18:30 Docusate Sodium (Colace) 100 mg Q12H PRN PO CONSTIPATION; Start 03/31/18 at 18:30 Pantoprazole (Protonix Iv) 40 mg DAILY@06 IV Last administered on 04/06/18 06:14; Admin Dose 40 MG; Start 04/01/18 at 06:00 Vancomycin HCl (Vanco Iv Per Pharmacy) VANCOMYCIN PER PHARMACY PER PROTOCOL XX ; Start 04/01/18 at 13:00 Alteplase, Recombinant (Cathflo (Activase)) 2 mg MAY REPEAT X1 PRN CATHETER IF CATHETER REMAINS OCCULUDED Last administered on 04/03/18 04:24; Admin Dose 2 MG; Start 04/01/18 at 21:00 Fluconazole 100 ml @ 100 mls/hr Q24H IVPB Last administered on 04/05/18 13:43; Admin Dose 100 MLS/HR; Start 04/02/18 at 12:00 Vancomycin HCl 250 ml @ 125 mls/hr Q24H IVPB Last administered on 04/06/18at 10:30; Admin Dose 125 MLS/HR; Start 04/03/18 at 09:00 Collagenase (Santyl) 1 applic DAILY TOP Last administered on 04/06/18 10:27; Admin Dose 1 APPLIC; Start 04/03/18 at 12:00 Sodium Chloride 1,000 ml @ 50 mls/hr Q20H IV Last administered on 04/05/18 22:51; Admin Dose 50 MLS/HR; Start 04/04/18 at 10:00 Meropenem/Sodium Chloride 50 ml @ 100 mls/hr Q8 IVPB Last administered on 04/06/18 06:15; Admin Dose 100 MLS/HR; Start 04/04/18 at 22:00 Midodrine (Proamatine) 5 mg BID GTB Last administered on 04/06/18at 10:29; Admin Dose 5 MG; Start 04/04/18 at 22:00 Morphine Sulfate (morphine) 6 mg Q4H PRN GTB SEVERE PAIN LEVEL 6-10; Start 04/04/18 at 23:00 Lorazepam (Ativan) 2 mg Q4H PRN IV restless, agitation, anxiety Last administered on 04/06/18at 02:54; Admin Dose 2 MG; Start 04/05/18 at 10:00 Metronidazole (Flagyl) 500 mg Q8 NGT ; Start 04/06/18 at 14:00 LETITIA BLAKELY Apr 06, 2018 12:40
[2018-04-06] MEDS: FLUCONAZOLE 200 MG (PMX) 100 ML IVPB SCH (13:17)
--- NOTE | 2018-04-06 14:12 | CONS ---
Date/Time of Note Date/Time of Note DATE: 04/06/18 TIME: 14:10 Assessment/Plan Assessment/Plan Hospital Course No acute events overnight patient is noncommunicative in no distress, continues to spike fevers. No labs this morning Microbiology: Blood cultures remain negative. Urine culture positive for Breanne albicans. Endotracheal aspirate growing gram-negative rods. Sacral wound culture growing MRSA, Breanne albicans, enterococcus, gram-negative rods. Nares swab positive for MRSA CT of the abdomen and pelvis done yesterday revealed questionable enterocolitis. Cholelithiasis. Tiny bilateral pleural effusions with bibasilar airspace disease. Indwelling: Peg, Schwartz, right upper extremity PICC line, tracheostomy Antimicrobials: Fluconazole, Merrem, vancomycin Physical examination: Chronically ill-appearing elderly man who is noncommunicative in no distress. Head atraumatic normocephalic sclera non icteric neck is supple tracheostomy present chest rise symmetrical breath sounds diminished bases heart: S1-S2. Abdomen soft bowel sounds present. Extremities without cyanosis. Skin: Patient has multiple pressure sores he has a dry blood on the right lower lip Assessment: 1. Sepsis with ongoing fevers 2. Acute pancreatitis, CT of the abdomen revealed no abscess, no pseudocyst 3. Breanne albicans UTI 4. History of cardiomyopathy 5. Chronic respiratory failure 6. Ongoing gingival bleeding, s/p ENT eval 7. Sacral decub 8. MRSA nares colonization 9. Possible enterocolitis Plan: Clinically unchanged, fevers persist, we will will add empiric Flagyl, continue antibiotics, follow final cultures Result Diagram: 04/05/18 0626 04/05/18 0625 Consultation Date/Type/Reason Admit Date/Time Mar 31, 2018 at 17:58 Initial Consult Date 04/02/18 Type of Consult id Exam/Review of Systems Vital Signs Vitals Vital Signs Date Temp Pulse Resp B/P (MAP) Pulse Ox O2 O2 Flow FiO2 Time Delivery Rate 04/06/18 72 22 100 30 13:00 04/06/18 97.9 112/102 Mechanical 11:10 (105) Ventilator Intake and Output 04/05/18 04/05/18 04/06/18 1515:00 23:00 07:00 IntakeIntake Total 450 ml 550 ml OutputOutput Total 3400 ml BalanceBalance 450 ml -2850 ml Medications Medications Current Medications Acetaminophen (Tylenol Tab) 1,000 mg Q4 PRN PO MODERATE PAIN LEVEL 4-6; Start 03/31/18 at 18:00 Acetaminophen (Tylenol Tab) 650 mg Q4 PRN GTB MILD PAIN LEVEL 1-3 Last administ ered on 03/31/18 23:41; Admin Dose 650 MG; Start 03/31/18 at 18:00 Albuterol (Proventil 0.083% (Neb)) 2.5 mg Q3H PRN NEB WHEEZING AND SOB; Start 03/31/18 at 18:00 Albuterol (Proventil 0.083% (Neb)) 2.5 mg Q6 PRN NEB WHEEZING AND SOB; Start 03/31/18 at 18:00 Ascorbic Acid (Vitamin C) 500 mg DAILY GTB Last administered on 04/06/18 10:29; Admin Dose 500 MG; Start 04/01/18 at 09:00 Bisacodyl (Dulcolax Supp) 10 mg DAILY PRN [place] CONSTIPATION; Start 03/31/18 at 18:00 Carvedilol (Coreg) 25 mg BID GTB Last administered on 04/06/18 10:29; Admin Dose 25 MG; Start 03/31/18 at 21:00 Multivit/Ca Carb/ B Cmplx/FA/Prenat (Sofy-Sandoval) 1 tab DAILY GTB Last administered on 04/06/18 10:29; Admin Dose 1 TAB; Start 04/01/18 at 09:00 Zinc Sulfate (Zinc Sulfate) 220 mg DAILY GTB Last administered on 04/06/18 10 :29; Admin Dose 220 MG; Start 04/01/18 at 09:00 IV Flush (NS 3 ml) 3 ml PER PROTOCOL IV ; Start 03/31/18 at 18:30 Ondansetron HCl (Zofran Inj) 4 mg Q6H PRN IV NAUSEA AND/OR VOMITING; Start 03/31/18 at 18:30 Acetaminophen (Tylenol Tab) 650 mg Q6H PRN PO PAIN LEVEL 1-3 OR FEVER Last administered on 04/06/18 03:55; Admin Dose 650 MG; Start 03/31/18 at 18:30 Acetaminophen (Tylenol Supp) 650 mg Q6H PRN [place] PAIN LEVEL 1-3 OR FEVER Last administered on 04/02/18 20:38; Admin Dose 650 MG; Start 03/31/18 at 18:30 Docusate Sodium (Colace) 100 mg Q12H PRN PO CONSTIPATION; Start 03/31/18 at 18:30 Pantoprazole (Protonix Iv) 40 mg DAILY@06 IV Last administered on 04/06/18at 06:14; Admin Dose 40 MG; Start 04/01/18 at 06:00 Vancomycin HCl (Vanco Iv Per Pharmacy) VANCOMYCIN PER PHARMACY PER PROTOCOL XX ; Start 04/01/18 at 13:00 Alteplase, Recombinant (Cathflo (Activase)) 2 mg MAY REPEAT X1 PRN CATHETER IF CATHETER REMAINS OCCULUDED Last administered on 04/03/18at 04:24; Admin Dose 2 MG; Start 04/01/18 at 21:00 Fluconazole 100 ml @ 100 mls/hr Q24H IVPB Last administered on 04/06/18at 13:17; Admin Dose 100 MLS/HR; Start 04/02/18 at 12:00 Vancomycin HCl 250 ml @ 125 mls/hr Q24H IVPB Last administered on 04/06/18at 10:30; Admin Dose 125 MLS/HR; Start 04/03/18 at 09:00 Collagenase (Santyl) 1 applic DAILY TOP Last administered on 04/06/18at 10:27; Admin Dose 1 APPLIC; Start 04/03/18 at 12:00 Sodium Chloride 1,000 ml @ 50 mls/hr Q20H IV Last administered on 04/05/18at 22:51; Admin Dose 50 MLS/HR; Start 04/04/18 at 10:00 Meropenem/Sodium Chloride 50 ml @ 100 mls/hr Q8 IVPB Last administered on 04/06/18at 06:15; Admin Dose 100 MLS/HR; Start 04/04/18 at 22:00 Midodrine (Proamatine) 5 mg BID GTB Last administered on 04/06/18at 10:29; Admin Dose 5 MG; Start 04/04/18 at 22:00 Morphine Sulfate (morphine) 6 mg Q4H PRN GTB SEVERE PAIN LEVEL 6-10; Start 04/04/18 at 23:00 Lorazepam (Ativan) 2 mg Q4H PRN IV restless, agitation, anxiety Last administered on 04/06/18at 02:54; Admin Dose 2 MG; Start 04/05/18 at 10:00 Metronidazole (Flagyl) 500 mg Q8 NGT ; Start 04/06/18 at 14:00 Miscellaneous Information (*Rx Drug Level Order Reminder*) VANCOMYCIN TROUGH AT 0800 ONCE ONCE XX ; Start 04/07/18 at 08:00; Stop 04/07/18 at 08:01 RENÉ GARCIA NP Apr 06, 2018 14:12
[2018-04-06] MEDS: metroNIDAZOLE 500 MG TAB NGT SCH ×2 (15:38→21:44)
[2018-04-06] MEDS: SOD CHLORIDE 0.45% 1,000 ML IV SCH (22:00)
[2018-04-07] VITALS (24 sets, daily range): BP systolic 109–155; BP diastolic 72–94; PULSE 65–113; RESP 18–32
[2018-04-07] MEDS: PANTOPRAZOLE 40 MG INJ IV SCH (05:36)
[2018-04-07] MEDS: metroNIDAZOLE 500 MG TAB NGT SCH ×3 (05:36→22:09)
[2018-04-07] MEDS: MEROPENEM 500MG/50 ML (PMX) 50 ML IVPB SCH ×3 (05:36→22:09)
[2018-04-07] MEDS: SOD CHLORIDE 0.45% 1,000 ML IV SCH ×2 (06:02→17:38)
[2018-04-07] MEDS: ZINC SULFATE 220 MG CAP GTB SCH (08:35)
[2018-04-07] MEDS: MIDODRINE 2.5 MG TAB GTB SCH ×2 (08:35→20:51)
[2018-04-07] MEDS: COLLAGENASE 5 GM (UD JAR) TOP SCH (08:36)
[2018-04-07] MEDS: ASCORBIC ACID 500 MG TAB GTB SCH (08:36)
[2018-04-07] MEDS: VANCOMYCIN 1 GM 250 ML IVPB SCH (08:36)
[2018-04-07] MEDS: MULTIVIT/CA CARB/B CMPLX/FA TAB GTB SCH (08:36)
[2018-04-07] MEDS: BALSAM PERU/CASTOR OIL 60 GM TUBE TOP SCH ×2 (08:37→20:52)
--- NOTE | 2018-04-07 08:37 | CONS ---
Assessment/Plan Assessment/Plan Hospital Course 62 M c/ Hx of ETOH abuse c/b cirrhosis and dilated cardiomyopathy... and other comorbidities, admitted for evaluation of gingival bleeding..and fevers.... Neurology is consulted to evaluate chronic encephalopathy and assess prognosis for meaningful neurologic recovery.. The patient is unable to contribute a Hx; family is not presently available; EMR documentation is relatively sparse... D/C summary from his next most recent admission in 2016 notes an admission for hypoxic respiratory failure and severe ETOH w/d...which saw him discharged to home following extubation and clinical improvement... Interval Hx is lacking... It is, thus, currently impossible to provide any meaningful opinion regarding hi s chronic neurologic disease.. As an aside, he likely today has a superimposed acute toxic-metabolic on chronic encephalopathy.. Head CT shows only mild volume loss and some small vessel ischemic disease.. P: Clarify neurologic Hx when able MRI brain for further characterization in the interim.. EEG to assess waking background activity, and exclude subclinical seizure.. Add TSH, B12, ammonia level, RPR to exclude reversible causes of encephalopathy.. Continued medical management and supportive care per primary Limit sedating medications where possible PT/OT/ST as able Will follow Result Diagram: 04/05/18 0626 04/05/18 0625 Results 24hrs Laboratory Tests Test 04/07/18 07:54 White Blood Count Pending Red Blood Count Pending Hemoglobin Pending Hematocrit Pending Mean Corpuscular Volume Pending Mean Corpuscular Hemoglobin Pending Mean Corpuscular Hemoglobin Concent Pending Red Cell Distribution Width Pending Platelet Count Pending Mean Platelet Volume Pending Consultation Date/Type/Reason Admit Date/Time Mar 31, 2018 at 17:58 Type of Consult Neurology Reason for Consultation encephalopathy; prognosis.. Requesting Provider: TAMARA GRAJEDA MD Date/Time of Note DATE: 04/07/18 TIME: 08:21 Hx of Present Illness 62 M c/ reported hypoxic-ischemic encephalopathy and other comorbidities, admitted for evaluation of gingival bleeding... Neurology is consulted to evaluate chronic encephalopathy and assess prognosis for meaningful neurologic recovery.. The patient is unable to contribute a Hx; furthermore, EMR documentation is relatively sparse... It is elsewhere noted: This is a 62-year-old gentleman status post tracheotomy with history of anoxic brain injury, pneumonia, and cardiomyopathy who has recently been treated for alcohol withdrawal syndrome and resides in [facility]. The patient was noted to have bleeding from the mouth and was sent to the emergency room for further assessment. In discussion with the family, they report that procedures were being done in regards to his dentures, and the lower partials produced a cut of the gingival mucosa. The bleeding has subsequently subsided. There is concern due to some bloody secretions in the tracheostomy that require further evaluation. Prior to my evaluation this evening, the patient was transferred to the intensive care unit due to hypotension. The patient is otherwise nonverbal and details are gathered in the patient's electronic medical record. Subjective hx not possible: pt non-verbal Exam/Review of Systems Vital Signs Vitals Vital Signs Date Temp Pulse Resp B/P (MAP) Pulse Ox O2 O2 Flow FiO2 Time Delivery Rate 04/07/18 98 29 100 30 07:15 04/07/18 98.6 140/78 03:53 (98) 04/06/18 Mechanical 11:10 Ventilator Intake and Output 04/06/18 04/06/18 04/07/18 1515:00 23:00 07:00 IntakeIntake Total 970 ml 985 ml 1370 ml OutputOutput Total 1200 ml 950 ml 1400 ml BalanceBalance -230 ml 35 ml -30 ml Exam PE: Gen Appearance: No Apparent Distress; dried blood in mouth... HEENT: Trach Cardiovascular: Regular rate Abdomen: Soft Extremities: Dry NE: The patient was awake though nonverbal. Cranial nerve examination was limited by mental status. Pupils were equal and reactive to light. There was no afferent pupillary defect. Funduscopic examination was limited. Face was grossly symmetric, w/ present corneal and cough reflexes. Tone was normal. Muscle bulk was reduced. I did not see fasciculations. The patient withdrew to noxious stimulation x 4. Coordination and gait testing was limited by mental status. Arm and leg reflexes were within normal limits and symmetric. Maguire's sign was absent. Plantar responses were flexor. Medications Medications Current Medications Acetaminophen (Tylenol Tab) 1,000 mg Q4 PRN PO MODERATE PAIN LEVEL 4-6; Start 03/31/18 at 18:00 Acetaminophen (Tylenol Tab) 650 mg Q4 PRN GTB MILD PAIN LEVEL 1-3 Last administered on 03/31/18at 23:41; Admin Dose 650 MG; Start 03/31/18 at 18:00 Albuterol (Proventil 0.083% (Neb)) 2.5 mg Q3H PRN NEB WHEEZING AND SOB; Start 03/31/18 at 18:00 Albuterol (Proventil 0.083% (Neb)) 2.5 mg Q6 PRN NEB WHEEZING AND SOB; Start 03/31/18 at 18:00 Ascorbic Acid (Vitamin C) 500 mg DAILY GTB Last administered on 04/06/18 10:29; Admin Dose 500 MG; Start 04/01/18 at 09:00 Bisacodyl (Dulcolax Supp) 10 mg DAILY PRN [place] CONSTIPATION; Start 03/31/18 at 18:00 Carvedilol (Coreg) 25 mg BID GTB Last administered on 04/06/18 21:34; Admin Dose 25 MG; Start 03/31/18 at 21:00 Multivit/Ca Carb/ B Cmplx/FA/Prenat (Sofy-Sandoval) 1 tab DAILY GTB Last administered on 04/06/18 10:29; Admin Dose 1 TAB; Start 04/01/18 at 09:00 Zinc Sulfate (Zinc Sulfate) 220 mg DAILY GTB Last administered on 04/06/18 10:29; Admin Dose 220 MG; Start 04/01/18 at 09:00 IV Flush (NS 3 ml) 3 ml PER PROTOCOL IV ; Start 03/31/18 at 18:30 Ondansetron HCl (Zofran Inj) 4 mg Q6H PRN IV NAUSEA AND/OR VOMITING; Start 03/31/18 at 18:30 Acetaminophen (Tylenol Tab) 650 mg Q6H PRN PO PAIN LEVEL 1-3 OR FEVER Last administered on 04/06/18at 03:55; Admin Dose 650 MG; Start 03/31/18 at 18:30 Acetaminophen (Tylenol Supp) 650 mg Q6H PRN LA PAIN LEVEL 1-3 OR FEVER Last administered on 04/02/18 20:38; Admin Dose 650 MG; Start 03/31/18 at 18:30 Docusate Sodium (Colace) 100 mg Q12H PRN PO CONSTIPATION; Start 03/31/18 at 18:30 Pantoprazole (Protonix Iv) 40 mg DAILY@06 IV Last administered on 04/07/18at 05:36; Admin Dose 40 MG; Start 04/01/18 at 06:00 Vancomycin HCl (Vanco Iv Per Pharmacy) VANCOMYCIN PER PHARMACY PER PROTOCOL XX ; Start 04/01/18 at 13:00 Alteplase, Recombinant (Cathflo (Activase)) 2 mg MAY REPEAT X1 PRN CATHETER IF CATHETER REMAINS OCCULUDED Last administered on 04/03/18at 04:24; Admin Dose 2 MG; Start 04/01/18 at 21:00 Fluconazole 100 ml @ 100 mls/hr Q24H IVPB Last administered on 04/06/18at 13:17; Admin Dose 100 MLS/HR; Start 04/02/18 at 12:00 Vancomycin HCl 250 ml @ 125 mls/hr Q24H IVPB Last administered on 04/06/18 10:30; Admin Dose 125 MLS/HR; Start 04/03/18 at 09:00 Collagenase (Santyl) 1 applic DAILY TOP Last administered on 04/06/18at 10:27; Admin Dose 1 APPLIC; Start 04/03/18 at 12:00 Sodium Chloride 1,000 ml @ 50 mls/hr Q20H IV Last administered on 04/07/18at 06:02; Admin Dose 50 MLS/HR; Start 04/04/18 at 10:00 Meropenem/Sodium Chloride 50 ml @ 100 mls/hr Q8 IVPB Last administered on 04/07/18 05:36; Admin Dose 100 MLS/HR; Start 04/04/18 at 22:00 Midodrine (Proamatine) 5 mg BID GTB Last administered on 04/06/18at 21:34; Admin Dose 5 MG; Start 04/04/18 at 22:00 Morphine Sulfate (morphine) 6 mg Q4H PRN GTB SEVERE PAIN LEVEL 6-10; Start 04/04/18 at 23:00 Lorazepam (Ativan) 2 mg Q4H PRN IV restless, agitation, anxiety Last administered on 04/06/18at 02:54; Admin Dose 2 MG; Start 04/05/18 at 10:00 Metronidazole (Flagyl) 500 mg Q8 NGT Last administered on 04/07/18 05:36; Admin Dose 500 MG; Start 04/06/18 at 14:00 Past Medical History Medical History: congestive heart failure, coronary artery disease, hypertension, renal disease, other Medications Current Medications Acetaminophen (Tylenol Tab) 1,000 mg Q4 PRN PO MODERATE PAIN LEVEL 4-6; Start 03/31/18 at 18:00 Acetaminophen (Tylenol Tab) 650 mg Q4 PRN GTB MILD PAIN LEVEL 1-3 Last administered on 03/31/18at 23:41; Admin Dose 650 MG; Start 03/31/18 at 18:00 Albuterol (Proventil 0.083% (Neb)) 2.5 mg Q3H PRN NEB WHEEZING AND SOB; Start 03/31/18 at 18:00 Albuterol (Proventil 0.083% (Neb)) 2.5 mg Q6 PRN NEB WHEEZING AND SOB; Start 03/31/18 at 18:00 Ascorbic Acid (Vitamin C) 500 mg DAILY GTB Last administered on 04/06/18 10:2 9; Admin Dose 500 MG; Start 04/01/18 at 09:00 Bisacodyl (Dulcolax Supp) 10 mg DAILY PRN LA CONSTIPATION; Start 03/31/18 at 18:00 Carvedilol (Coreg) 25 mg BID GTB Last administered on 04/06/18at 21:34; Admin Dose 25 MG; Start 03/31/18 at 21:00 Multivit/Ca Carb/ B Cmplx/FA/Prenat (Sofy-Sandoval) 1 tab DAILY GTB Last administered on 04/06/18 10:29; Admin Dose 1 TAB; Start 04/01/18 at 09:00 Zinc Sulfate (Zinc Sulfate) 220 mg DAILY GTB Last administered on 04/06/18 10:29; Admin Dose 220 MG; Start 04/01/18 at 09:00 IV Flush (NS 3 ml) 3 ml PER PROTOCOL IV ; Start 03/31/18 at 18:30 Ondansetron HCl (Zofran Inj) 4 mg Q6H PRN IV NAUSEA AND/OR VOMITING; Start 03/31/18 at 18:30 Acetaminophen (Tylenol Tab) 650 mg Q6H PRN PO PAIN LEVEL 1-3 OR FEVER Last administered on 04/06/18 03:55; Admin Dose 650 MG; Start 03/31/18 at 18:30 Acetaminophen (Tylenol Supp) 650 mg Q6H PRN LA PAIN LEVEL 1-3 OR FEVER Last adm inistered on 04/02/18at 20:38; Admin Dose 650 MG; Start 03/31/18 at 18:30 Docusate Sodium (Colace) 100 mg Q12H PRN PO CONSTIPATION; Start 03/31/18 at 18:30 Pantoprazole (Protonix Iv) 40 mg DAILY@06 IV Last administered on 04/07/18at 05:36; Admin Dose 40 MG; Start 04/01/18 at 06:00 Vancomycin HCl (Vanco Iv Per Pharmacy) VANCOMYCIN PER PHARMACY PER PROTOCOL XX ; Start 04/01/18 at 13:00 Alteplase, Recombinant (Cathflo (Activase)) 2 mg MAY REPEAT X1 PRN CATHETER IF CATHETER REMAINS OCCULUDED Last administered on 04/03/18at 04:24; Admin Dose 2 MG; Start 04/01/18 at 21:00 Fluconazole 100 ml @ 100 mls/hr Q24H IVPB Last administered on 04/06/18at 13:17; Admin Dose 100 MLS/HR; Start 04/02/18 at 12:00 Vancomycin HCl 250 ml @ 125 mls/hr Q24H IVPB Last administered on 04/06/18at 10:30; Admin Dose 125 MLS/HR; Start 04/03/18 at 09:00 Collagenase (Santyl) 1 applic DAILY TOP Last administered on 04/06/18 10:27; Admin Dose 1 APPLIC; Start 04/03/18 at 12:00 Sodium Chloride 1,000 ml @ 50 mls/hr Q20H IV Last administered on 04/07/18 06:02; Admin Dose 50 MLS/HR; Start 04/04/18 at 10:00 Meropenem/Sodium Chloride 50 ml @ 100 mls/hr Q8 IVPB Last administered on 04/07/18at 05:36; Admin Dose 100 MLS/HR; Start 04/04/18 at 22:00 Midodrine (Proamatine) 5 mg BID GTB Last administered on 04/06/18at 21:34; Admin Dose 5 MG; Start 04/04/18 at 22:00 Morphine Sulfate (morphine) 6 mg Q4H PRN GTB SEVERE PAIN LEVEL 6-10; Start 04/04/18 at 23:00 Lorazepam (Ativan) 2 mg Q4H PRN IV restless, agitation, anxiety Last ad ministered on 04/06/18at 02:54; Admin Dose 2 MG; Start 04/05/18 at 10:00 Metronidazole (Flagyl) 500 mg Q8 NGT Last administered on 04/07/18at 05:36; Admin Dose 500 MG; Start 04/06/18 at 14:00 Allergies: Coded Allergies: No Known Allergy (Unverified , 03/31/18) Past Surgical History Past Surgical Hx: no surgical history, other (PEG AND TRACHEOSTOMY) Social History Alcohol Use: other (HX) Smoking Status: Never smoker MANDO PINO Apr 07, 2018 08:34
[2018-04-07] MEDS ORDERED: MAGNESIUM SULFATE 2 GM/50 ML 50 ML IVPB ONE (09:30)
[2018-04-07] MEDS: POTASSIUM CHLORIDE 100 ML IVPB SCH ×2 (11:40→12:15)
--- NOTE | 2018-04-07 11:49 | CONS ---
Date/Time of Note Date/Time of Note DATE: 04/07/18 TIME: 11:47 Assessment/Plan Assessment/Plan Assessment/Plan Ventilator setting; AC of 20, tidal volume 500, PEEP of 5, 30% FiO2. Assessment recommendations; 1. Patient with history of chronic severe encephalopathy and VDR F admitted for anemia from oral bleeding. No overt further bleeding noted. 2. Persistent anemia. 3. Multiple organisms isolated from sacral wound. Patient currently on appropriate antimicrobial regimen. 4. Severe anemia and thrombocytopenia. Continue current supportive care. Transfuse blood. Result Diagram: 04/07/18 0754 04/07/18 0754 Results 24hrs Laboratory Tests Test 04/07/18 07:54 04/07/18 10:00 White Blood Count 6.5 Red Blood Count 2.34 L Hemoglobin 6.6 *L Hematocrit 20.7 L Mean Corpuscular Volume 88.5 Mean Corpuscular Hemoglobin 28.2 L Mean Corpuscular Hemoglobin Concent 31.9 L Red Cell Distribution Width 15.3 H Platelet Count 170 # Mean Platelet Volume 10.3 Immature Granulocytes % 0.800 H Neutrophils % 76.1 Lymphocytes % 6.5 L Monocytes % 14.3 H Eosinophils % 1.7 Basophils % 0.6 Nucleated Red Blood Cells % 0.0 Immature Granulocytes # 0.050 H Neutrophils # 5.0 Lymphocytes # 0.4 L Monocytes # 0.9 Eosinophils # 0.1 Basophils # 0.0 Nucleated Red Blood Cells # 0.0 Sodium Level 137 Potassium Level 3.1 L Chloride Level 111 H Carbon Dioxide Level 19 L Anion Gap 7 Blood Urea Nitrogen 27 H Creatinine 0.76 Est Glomerular Filtrat Rate mL/min > 60 Glucose Level 96 Calcium Level 7.4 L Phosphorus Level 1.7 L Magnesium Level 1.6 L Vitamin B12 Level 653 Thyroid Stimulating Hormone (TSH) 3.730 Vancomycin Level Trough 16.1 Ammonia < 9 L Consultation Date/Type/Reason Admit Date/Time Mar 31, 2018 at 17:58 Initial Consult Date 04/02/18 Type of Consult Pulmonary/critical care History of presenting illness; Patient is a 62-year-old male who was admitted to the hospital with hypotension from group home. Patient has history of advanced encephalopathy and VDR F and was unable to give any history by himself whatsoever. However after being fluid resuscitated patient's hemodynamics improved and patient did not require any pressor support. By the time I saw him in ICU, patient is on ventilator via tracheostomy and is unresponsive. Patient also did not appear to be in any distress. Past medical history; 1. Dilated cardiomyopathy. 2. Chronic encephalopathy. 3. VDR F. 4. G-tube placement. 5. Anemia. 6. History of alcohol abuse. 7. Renal insufficiency. Medications; reviewed. Allergies; none. Social history; patient has been a non-smoker. History of alcohol abuse. Family history, occupational history not available. Review of systems; unable to be obtained. General exam; elderly male, on ventilator via tracheostomy, unresponsive, currently in no distress. Requesting Provider: TAMARA GRAJEDA MD 24 HR Interval Summary Free Text/Dictation Patient's condition is stable. Remains unresponsive due to chronic encephalopathy. No overt oral bleeding noted. Patient has remained hemodynamically stable. General exam; elderly male, on ventilator via tracheostomy, unresponsive, currently in no distress. Exam/Review of Systems Vital Signs Vitals Vital Signs Date Temp Pulse Resp B/P (MAP) Pulse Ox O2 O2 Flow FiO2 Time Delivery Rate 04/07/18 87 28 100 30 11:15 04/07/18 100.0 123/76 Mechanica 11:00 (92) l Ventilato r Intake and Output 04/06/18 04/06/18 04/07/18 1515:00 23:00 07:00 IntakeIntake Total 970 ml 985 ml 1370 ml OutputOutput Total 1200 ml 950 ml 1400 ml BalanceBalance -230 ml 35 ml -30 ml Exam H HEENT exam; supple neck, no JVD. No lymphadenopathy. Midline trachea. No thyromegaly. There is crusting of blood around the lips. Tracheostomy in place. Insertion site is clean. Chest exam; diminished but clear breath sounds. S1-S2 audible, no murmurs. Regular rhythm. Abdomen exam; soft, no organomegaly. G-tube in place. Bowel sounds audible. Extremity exam; no peripheral edema or clubbing. CERTIFIED DENTAL ASSISTANT exam; patient remains unresponsive. Medications Medications Current Medications Acetaminophen (Tylenol Tab) 1,000 mg Q4 PRN PO MODERATE PAIN LEVEL 4-6; Start 03/31/18 at 18:00 Acetaminophen (Tylenol Tab) 650 mg Q4 PRN GTB MILD PAIN LEVEL 1-3 Last adm inistered on 03/31/18at 23:41; Admin Dose 650 MG; Start 03/31/18 at 18:00 Albuterol (Proventil 0.083% (Neb)) 2.5 mg Q3H PRN NEB WHEEZING AND SOB; Start 03/31/18 at 18:00 Albuterol (Proventil 0.083% (Neb)) 2.5 mg Q6 PRN NEB WHEEZING AND SOB; Start 03/31/18 at 18:00 Ascorbic Acid (Vitamin C) 500 mg DAILY GTB Last administered on 04/07/18 08:36; Admin Dose 500 MG; Start 04/01/18 at 09:00 Bisacodyl (Dulcolax Supp) 10 mg DAILY PRN [place] CONSTIPATION; Start 03/31/18 at 18:00 Carvedilol (Coreg) 25 mg BID GTB Last administered on 04/07/18 08:35; Admin Dose 25 MG; Start 03/31/18 at 21:00 Multivit/Ca Carb/ B Cmplx/FA/Prenat (Sofy-Sandoval) 1 tab DAILY GTB Last administered on 04/07/18 08:36; Admin Dose 1 TAB; Start 04/01/18 at 09:00 Zinc Sulfate (Zinc Sulfate) 220 mg DAILY GTB Last administered on 04/07/18 08:35; Admin Dose 220 MG; Start 04/01/18 at 09:00 IV Flush (NS 3 ml) 3 ml PER PROTOCOL IV ; Start 03/31/18 at 18:30 Ondansetron HCl (Zofran Inj) 4 mg Q6H PRN IV NAUSEA AND/OR VOMITING; Start 03/31/18 at 18:30 Acetaminophen (Tylenol Tab) 650 mg Q6H PRN PO PAIN LEVEL 1-3 OR FEVER Last administered on 04/06/18 03:55; Admin Dose 650 MG; Start 03/31/18 at 18:30 Acetaminophen (Tylenol Supp) 650 mg Q6H PRN [place] PAIN LEVEL 1-3 OR FEVER Last administered on 04/02/18 20:38; Admin Dose 650 MG; Start 03/31/18 at 18:30 Docusate Sodium (Colace) 100 mg Q12H PRN PO CONSTIPATION; Start 03/31/18 at 18:30 Pantoprazole (Protonix Iv) 40 mg DAILY@06 IV Last administered on 04/07/18 05:36; Admin Dose 40 MG; Start 04/01/18 at 06:00 Vancomycin HCl (Vanco Iv Per Pharmacy) VANCOMYCIN PER PHARMACY PER PROTOCOL XX ; Start 04/01/18 at 13:00 Alteplase, Recombinant (Cathflo (Activase)) 2 mg MAY REPEAT X1 PRN CATHETER IF CATHETER REMAINS OCCULUDED Last administered on 04/03/18 04:24; Admin Dose 2 MG; Start 04/01/18 at 21:00 Fluconazole 100 ml @ 100 mls/hr Q24H IVPB Last administered on 04/06/18 13:17; Admin Dose 100 MLS/HR; Start 04/02/18 at 12:00 Vancomycin HCl 250 ml @ 125 mls/hr Q24H IVPB Last administered on 04/07/18 08:36; Admin Dose 125 MLS/HR; Start 04/03/18 at 09:00 Collagenase (Santyl) 1 applic DAILY TOP Last administered on 04/07/18 08:36; Admin Dose 1 APPLIC; Start 04/03/18 at 12:00 Sodium Chloride 1,000 ml @ 50 mls/hr Q20H IV Last administered on 04/07/18 06:02; Admin Dose 50 MLS/HR; Start 04/04/18 at 10:00 Meropenem/Sodium Chloride 50 ml @ 100 mls/hr Q8 IVPB Last administered on 04/07/18 05:36; Admin Dose 100 MLS/HR; Start 04/04/18 at 22:00 Midodrine (Proamatine) 5 mg BID GTB Last administered on 04/07/18 08:35; Admin Dose 5 MG; Start 04/04/18 at 22:00 Morphine Sulfate (morphine) 6 mg Q4H PRN GTB SEVERE PAIN LEVEL 6-10; Start 04/04/18 at 23:00 Lorazepam (Ativan) 2 mg Q4H PRN IV restless, agitation, anxiety Last administered on 04/06/18 02:54; Admin Dose 2 MG; Start 04/05/18 at 10:00 Metronidazole (Flagyl) 500 mg Q8 NGT Last administered on 04/07/18 05:36; Admin Dose 500 MG; Start 04/06/18 at 14:00 Potassium Chloride 100 ml @ 50 mls/hr Q2H IVPB Last administered on 04/07/18at 11:40; Admin Dose 50 MLS/HR; Start 04/07/18 at 11:00; Stop 04/07/18 at 14:59 DION MAGALLANES Apr 07, 2018 11:49
[2018-04-07] MEDS: ACETAMINOPHEN 500 MG TAB PO PRN (12:14)
[2018-04-07] MEDS: FLUCONAZOLE 200 MG (PMX) 100 ML IVPB SCH (12:14)
--- NOTE | 2018-04-07 13:40 | PN ---
Date/Time of Note Date/Time of Note DATE: 04/07/18 TIME: 13:39 Assessment/Plan VTE Prophylaxis Risk score (from Ns)>0 risk: 9 SCD applied (from [facility]): Yes SCD contraindicated: other Pharmacological prophylaxis: other Lines/Catheters IV Catheter Type (from [facility]): PICC Line Central line still needed: Yes Urinary Cath still in place: Yes Reason Cath still needed: other (indicate) Assessment/Plan Hospital Course # Oral gingival bleeding likely due to dentures, seen by ENT s/p endoscopy # Sepsis with Fevers with hx Pneumonia +UTI and ? Pancreatitis +multiple wounds, ucx+ lisa # Blood loss anemia due to #1 # VDRF # CKD with worseing renal failure # Metabolic acidosis # DILATED CARDIOMYOPATHY # HX ALCOHOL ABUSE # Multiple wounds > decub # hypomagnesemia plan kcl iv mg prbc wound care antibiotic Result Diagram: 04/07/18 0754 04/07/18 0754 Results 24hrs Laboratory Tests Test 04/07/18 07:54 04/07/18 10:00 White Blood Count 6.5 Red Blood Count 2.34 L Hemoglobin 6.6 *L Hematocrit 20.7 L Mean Corpuscular Volume 88.5 Mean Corpuscular Hemoglobin 28.2 L Mean Corpuscular Hemoglobin Concent 31.9 L Red Cell Distribution Width 15.3 H Platelet Count 170 # Mean Platelet Volume 10.3 Immature Granulocytes % 0.800 H Neutrophils % 76.1 Lymphocytes % 6.5 L Monocytes % 14.3 H Eosinophils % 1.7 Basophils % 0.6 Nucleated Red Blood Cells % 0.0 Immature Granulocytes # 0.050 H Neutrophils # 5.0 Lymphocytes # 0.4 L Monocytes # 0.9 Eosinophils # 0.1 Basophils # 0.0 Nucleated Red Blood Cells # 0.0 Sodium Level 137 Potassium Level 3.1 L Chloride Level 111 H Carbon Dioxide Level 19 L Anion Gap 7 Blood Urea Nitrogen 27 H Creatinine 0.76 Est Glomerular Filtrat Rate mL/min > 60 Glucose Level 96 Calcium Level 7.4 L Phosphorus Level 1.7 L Magnesium Level 1.6 L Vitamin B12 Level 653 Thyroid Stimulating Hormone (TSH) 3.730 Vancomycin Level Trough 16.1 Ammonia < 9 L Subjective 24 Hr Interval Summary Subjective hx not possible: pt non-verbal Exam/Review of Systems Vital Signs Vitals Vital Signs Date Temp Pulse Resp B/P (MAP) Pulse Ox O2 O2 Flow FiO2 Time Delivery Rate 04/07/18 80 29 100 30 13:20 04/07/18 101.7 12:14 04/07/18 123/76 Mechanica 11:00 (92) l Ventilato r Intake and Output 04/06/18 04/06/18 04/07/18 1515:00 23:00 07:00 IntakeIntake Total 970 ml 985 ml 1370 ml OutputOutput Total 1200 ml 950 ml 1400 ml BalanceBalance -230 ml 35 ml -30 ml Exam Respiratory: diminished breath sounds Cardiovascular: regular rate and rhythm Gastrointestinal: soft, bowel sounds (+) Extremities: edema (+) Medications Medications Current Medications Acetaminophen (Tylenol Tab) 1,000 mg Q4 PRN PO MODERATE PAIN LEVEL 4-6 Last administered on 04/07/18at 12:14; Admin Dose 1,000 MG; Start 03/31/18 at 18:00 Acetaminophen (Tylenol Tab) 650 mg Q4 PRN GTB MILD PAIN LEVEL 1-3 Last admi nistered on 03/31/18at 23:41; Admin Dose 650 MG; Start 03/31/18 at 18:00 Albuterol (Proventil 0.083% (Neb)) 2.5 mg Q3H PRN NEB WHEEZING AND SOB; Start 03/31/18 at 18:00 Albuterol (Proventil 0.083% (Neb)) 2.5 mg Q6 PRN NEB WHEEZING AND SOB; Start 03/31/18 at 18:00 Ascorbic Acid (Vitamin C) 500 mg DAILY GTB Last administered on 04/07/18at 08:36; Admin Dose 500 MG; Start 04/01/18 at 09:00 Bisacodyl (Dulcolax Supp) 10 mg DAILY PRN RI CONSTIPATION; Start 03/31/18 at 18:00 Carvedilol (Coreg) 25 mg BID GTB Last administered on 04/07/18at 08:35; Admin Dose 25 MG; Start 03/31/18 at 21:00 Multivit/Ca Carb/ B Cmplx/FA/Prenat (Sofy-Sandoval) 1 tab DAILY GTB Last administered on 04/07/18 08:36; Admin Dose 1 TAB; Start 04/01/18 at 09:00 Zinc Sulfate (Zinc Sulfate) 220 mg DAILY GTB Last administered on 04/07/18 08:35; Admin Dose 220 MG; Start 04/01/18 at 09:00 IV Flush (NS 3 ml) 3 ml PER PROTOCOL IV ; Start 03/31/18 at 18:30 Ondansetron HCl (Zofran Inj) 4 mg Q6H PRN IV NAUSEA AND/OR VOMITING; Start 03/31/18 at 18:30 Acetaminophen (Tylenol Tab) 650 mg Q6H PRN PO PAIN LEVEL 1-3 OR FEVER Last administered on 04/06/18 03:55; Admin Dose 650 MG; Start 03/31/18 at 18:30 Acetaminophen (Tylenol Supp) 650 mg Q6H PRN RI PAIN LEVEL 1-3 OR FEVER Last administered on 04/02/18 20:38; Admin Dose 650 MG; Start 03/31/18 at 18:30 Docusate Sodium (Colace) 100 mg Q12H PRN PO CONSTIPATION; Start 03/31/18 at 18:30 Pantoprazole (Protonix Iv) 40 mg DAILY@06 IV Last administered on 04/07/18 05:36; Admin Dose 40 MG; Start 04/01/18 at 06:00 Vancomycin HCl (Vanco Iv Per Pharmacy) VANCOMYCIN PER PHARMACY PER PROTOCOL XX ; Start 04/01/18 at 13:00 Alteplase, Recombinant (Cathflo (Activase)) 2 mg MAY REPEAT X1 PRN CATHETER IF CATHETER REMAINS OCCULUDED Last administered on 04/03/18 04:24; Admin Dose 2 MG; Start 04/01/18 at 21:00 Fluconazole 100 ml @ 100 mls/hr Q24H IVPB Last administered on 04/07/18 12:14; Admin Dose 100 MLS/HR; Start 04/02/18 at 12:00 Vancomycin HCl 250 ml @ 125 mls/hr Q24H IVPB Last administered on 04/07/18 08:36; Admin Dose 125 MLS/HR; Start 04/03/18 at 09:00 Collagenase (Santyl) 1 applic DAILY TOP Last administered on 04/07/18 08:36; Admin Dose 1 APPLIC; Start 04/03/18 at 12:00 Sodium Chloride 1,000 ml @ 50 mls/hr Q20H IV Last administered on 04/07/18 06:02; Admin Dose 50 MLS/HR; Start 04/04/18 at 10:00 Meropenem/Sodium Chloride 50 ml @ 100 mls/hr Q8 IVPB Last administered on 04/07/18at 05:36; Admin Dose 100 MLS/HR; Start 04/04/18 at 22:00 Midodrine (Proamatine) 5 mg BID GTB Last administered on 04/07/18at 08:35; Admin Dose 5 MG; Start 04/04/18 at 22:00 Morphine Sulfate (morphine) 6 mg Q4H PRN GTB SEVERE PAIN LEVEL 6-10; Start 04/04/18 at 23:00 Lorazepam (Ativan) 2 mg Q4H PRN IV restless, agitation, anxiety Last administered on 04/06/18at 02:54; Admin Dose 2 MG; Start 04/05/18 at 10:00 Metronidazole (Flagyl) 500 mg Q8 NGT Last administered on 04/07/18at 05:36; Admin Dose 500 MG; Start 04/06/18 at 14:00 Potassium Chloride 100 ml @ 50 mls/hr Q2H IVPB Last administered on 04/07/18at 12:15; Admin Dose 50 MLS/HR; Start 04/07/18 at 11:00; Stop 04/07/18 at 14:59 GARFIELD MOREAU MD Apr 07, 2018 13:40
[2018-04-08] VITALS (22 sets, daily range): BP systolic 96–161; BP diastolic 72–101; PULSE 75–109; RESP 16–33
[2018-04-08] MEDS: PANTOPRAZOLE 40 MG INJ IV SCH ×2 (06:04→18:16)
[2018-04-08] MEDS: MEROPENEM 500MG/50 ML (PMX) 50 ML IVPB SCH ×3 (06:04→22:24)
[2018-04-08] MEDS: metroNIDAZOLE 500 MG TAB NGT SCH ×3 (06:04→21:34)
--- NOTE | 2018-04-08 07:18 | CONS ---
Date/Time of Note Date/Time of Note DATE: 04/08/18 TIME: 07:15 Assessment/Plan Assessment/Plan Hospital Course 62 male with excessively bleeding gingival tissue and severe anemia 1. Severe acute on chronic anemia likely due to blood loss from #2 2. Excessive bleeding from gingival tissue 3. Chronic liver disease, alcohol related 4. Mild coagulopathy 5. Pancreatitis -lipid panel -CBD 6mm 6. Chronic kidney disease 7. Encephalopathy secondary to anoxic brain injury 8. 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 Peña Result Diagram: 04/08/18 0553 04/08/18 0553 Results 24hrs Laboratory Tests Test 04/07/18 07:54 04/07/18 10:00 04/08/18 05:53 White Blood Count 6.5 7.4 Red Blood Count 2.34 L 3.50 #L Hemoglobin 6.6 *L 9.8 #L Hematocrit 20.7 L 30.0 #L Mean Corpuscular Volume 88.5 85.7 Mean Corpuscular Hemoglobin 28.2 L 28.0 L Mean Corpuscular Hemoglobin Concent 31.9 L 32.7 Red Cell Distribution Width 15.3 H 15.2 H Platelet Count 170 # 186 Mean Platelet Volume 10.3 10.5 H Immature Granulocytes % 0.800 H 0.500 H Neutrophils % 76.1 79.1 H Lymphocytes % 6.5 L 5.7 L Monocytes % 14.3 H 12.6 H Eosinophils % 1.7 1.2 Basophils % 0.6 0.9 Nucleated Red Blood Cells % 0.0 0.0 Immature Granulocytes # 0.050 H 0.040 H Neutrophils # 5.0 5.9 Lymphocytes # 0.4 L 0.4 L Monocytes # 0.9 0.9 Eosinophils # 0.1 0.1 Basophils # 0.0 0.1 Nucleated Red Blood Cells # 0.0 0.0 Sodium Level 137 143 Potassium Level 3.1 L 3.7 Chloride Level 111 H 117 H Carbon Dioxide Level 19 L 17 L Anion Gap 7 9 Blood Urea Nitrogen 27 H 28 H Creatinine 0.76 0.80 Est Glomerular Filtrat Rate mL/min > 60 > 60 Glucose Level 96 103 Calcium Level 7.4 L 8.2 L Phosphorus Level 1.7 L Magnesium Level 1.6 L 2.1 Vitamin B12 Level 653 Thyroid Stimulating Hormone (TSH) 3.730 Vancomycin Level Trough 16.1 Rapid Plasma Reagin NONREACTIVE Ammonia < 9 L Total Bilirubin 0.0 L Direct Bilirubin 0.00 Indirect Bilirubin 0.0 Aspartate Amino Transf (AST/SGOT) 57 H Alanine Aminotransferase (ALT/SGPT) 20 Alkaline Phosphatase 78 Total Protein 6.8 Albumin 2.8 L Globulin 4.00 H Albumin/Globulin Ratio 0.70 Consultation Date/Type/Reason Admit Date/Time Mar 31, 2018 at 17:58 Hx of Present Illness 62 yo male with alcoholic liver cirrhosis, acute on chronic renal failure, cardiomyopathy, alcohol withdrawal syndrome, anoxic brain damage, VDRF presented from [facility] for anemia and excessive gingival bleeding and hypotension. Pt was transferred to ICU with hypotension which alleviated with fluid resuscitation. Pt continues to have anemia with hgb yesterday 6.6, given 2 unit PRBC and hgb today is 9.8. Pt was having procedures for dentures and the lower denture produced a cut on the gingival mucosa which has not stopped bleeding. Pt is non verbal, unable to get HPI from patient. His lips have black blood on lips which when cleaned up shows fresh blood from gums in mouth. Per RN pt had large brown bm last night with no melena or hematochezia noted. Tolerating tube feeds at 35cc with no residuals, coffee ground or blood. G tube site is clean and dry. Hemodynamically stable. In 08/2015 pt had EGD which showed a duodenal ulcer. Hgb 6.6 (prbc)-> 9.8, INR 1.2, AST 57, lipase 4891->2066->2688, amylase 720, RPR non reactive CT abdomen: Bibasilar air space disease is seen with suggestion of tiny bilateral pleural effusions. The heart is enlarged. No pericardial effusion is seen. The liver is normal in size and contour. A 9 mm low attenuation lesion in the right hepatic lobe is seen which may represent a cyst. No other focal liver lesions or intrahepatic biliary dilatation is seen. Multiple gallstones are seen. The spleen, pancreas, and adrenal glands are unremarkable in appearance. The kidneys are normal in size and contour enhance normally. A 4 mm nonobstructing calculus in the left kidney is seen. Bilateral renal cysts are seen. No evidence of hydronephrosis or nephrolithiasis is seen. The stomach is unremarkable. Fluid-filled segments of distal small bowel is seen. The right hemicolon and transverse colon is fluid-filled and slightly distended. The remainder the large bowel is stool-filled. The remainder of the small bowel is unremarkable in course and caliber. No inflammatory changes in the periappendiceal region is seen. No enlarged lymph nodes or fluid collections are seen. The aorta is normal in caliber. Vascular calcifications are seen. CT pelvis: No pelvic mass, adenopathy, or focal fluid collection is seen. There is no free fluid. The urinary bladder is decompressed by Schwartz catheter. A small fat containing right inguinal hernia is seen. The pelvic organs are unremarkable. No osseous lesions are seen. IMPRESSION: 1. Findings which may represent enterocolitis as described above. 2. Cholelithiasis. 3. Suggestion of tiny bilateral pleural effusions with bibasilar air space disease. Past Medical History Medical History: congestive heart failure, coronary artery disease, hypertension, renal disease, other Medications Current Medications Acetaminophen (Tylenol Tab) 1,000 mg Q4 PRN PO MODERATE PAIN LEVEL 4-6 Last administered on 04/07/18at 12:14; Admin Dose 1,000 MG; Start 03/31/18 at 18:00 Acetaminophen (Tylenol Tab) 650 mg Q4 PRN GTB MILD PAIN LEVEL 1-3 Last administered on 03/31/18at 23:41; Admin Dose 650 MG; Start 03/31/18 at 18:00 Albuterol (Proventil 0.083% (Neb)) 2.5 mg Q3H PRN NEB WHEEZING AND SOB; Start 03/31/18 at 18:00 Albuterol (Proventil 0.083% (Neb)) 2.5 mg Q6 PRN NEB WHEEZING AND SOB; Start 03/31/18 at 18:00 Ascorbic Acid (Vitamin C) 500 mg DAILY GTB Last administered on 04/07/18at 08:36; Admin Dose 500 MG; Start 04/01/18 at 09:00 Bisacodyl (Dulcolax Supp) 10 mg DAILY PRN GA CONSTIPATION; Start 03/31/18 at 18:00 Carvedilol (Coreg) 25 mg BID GTB Last administered on 04/07/18at 20:51; Admin Dose 25 MG; Start 03/31/18 at 21:00 Multivit/Ca Carb/ B Cmplx/FA/Prenat (Sofy-Sandoval) 1 tab DAILY GTB Last administered on 04/07/18at 08:36; Admin Dose 1 TAB; Start 04/01/18 at 09:00 Zinc Sulfate (Zinc Sulfate) 220 mg DAILY GTB Last administered on 04/07/18at 08:35; Admin Dose 220 MG; Start 04/01/18 at 09:00 IV Flush (NS 3 ml) 3 ml PER PROTOCOL IV ; Start 03/31/18 at 18:30 Ondansetron HCl (Zofran Inj) 4 mg Q6H PRN IV NAUSEA AND/OR VOMITING; Start 03/31/18 at 18:30 Acetaminophen (Tylenol Tab) 650 mg Q6H PRN PO PAIN LEVEL 1-3 OR FEVER Last administered on 04/06/18at 03:55; Admin Dose 650 MG; Start 03/31/18 at 18:30 Acetaminophen (Tylenol Supp) 650 mg Q6H PRN GA PAIN LEVEL 1-3 OR FEVER Last administered on 04/02/18at 20:38; Admin Dose 650 MG; Start 03/31/18 at 18:30 Docusate Sodium (Colace) 100 mg Q12H PRN PO CONSTIPATION; Start 03/31/18 at 18:30 Pantoprazole (Protonix Iv) 40 mg DAILY@06 IV Last administered on 04/08/18at 06:04; Admin Dose 40 MG; Start 04/01/18 at 06:00 Vancomycin HCl (Vanco Iv Per Pharmacy) VANCOMYCIN PER PHARMACY PER PROTOCOL XX ; Start 04/01/18 at 13:00 Alteplase, Recombinant (Cathflo (Activase)) 2 mg MAY REPEAT X1 PRN CATHETER IF CATHETER REMAINS OCCULUDED Last administered on 04/03/18at 04:24; Admin Dose 2 MG; Start 04/01/18 at 21:00 Fluconazole 100 ml @ 100 mls/hr Q24H IVPB Last administered on 04/07/18at 12:14; Admin Dose 100 MLS/HR; Start 04/02/18 at 12:00 Vancomycin HCl 250 ml @ 125 mls/hr Q24H IVPB Last administered on 04/07/18at 08:36; Admin Dose 125 MLS/HR; Start 04/03/18 at 09:00 Collagenase (Santyl) 1 applic DAILY TOP Last administered on 04/07/18at 08:36; Admin Dose 1 APPLIC; Start 04/03/18 at 12:00 Sodium Chloride 1,000 ml @ 50 mls/hr Q20H IV Last administered on 04/07/18at 06:02; Admin Dose 50 MLS/HR; Start 04/04/18 at 10:00 Meropenem/Sodium Chloride 50 ml @ 100 mls/hr Q8 IVPB Last administered on 04/08/18at 06:04; Admin Dose 100 MLS/HR; Start 04/04/18 at 22:00 Midodrine (Proamatine) 5 mg BID GTB Last administered on 04/07/18at 20:51; Admin Dose 5 MG; Start 04/04/18 at 22:00 Morphine Sulfate (morphine) 6 mg Q4H PRN GTB SEVERE PAIN LEVEL 6-10; Start 04/04/18 at 23:00 Lorazepam (Ativan) 2 mg Q4H PRN IV restless, agitation, anxiety Last administered on 04/06/18at 02:54; Admin Dose 2 MG; Start 04/05/18 at 10:00 Metronidazole (Flagyl) 500 mg Q8 NGT Last administered on 04/08/18at 06:04; Admin Dose 500 MG; Start 04/06/18 at 14:00 Allergies: Coded Allergies: No Known Allergy (Unverified , 03/31/18) Past Surgical History Past Surgical Hx: no surgical history, other (PEG AND TRACHEOSTOMY) Social History Alcohol Use: other (HX) Smoking Status: Never smoker Exam/Review of Systems Vital Signs Vitals Vital Signs Date Temp Pulse Resp B/P (MAP) Pulse Ox O2 O2 Flow FiO2 Time Delivery Rate 04/08/18 88 31 99 30 05:53 04/08/18 98.5 143/94 Mechanical 04:05 (110) Ventilator Intake and Output 04/07/18 04/07/18 04/08/18 1515:00 23:00 07:00 IntakeIntake Total 550 ml 520 ml 650 ml OutputOutput Total 1300 ml 1000 ml BalanceBalance 550 ml -780 ml -350 ml Exam Constitutional: alert, oriented Psych: no complaints Head: normocephalic Eyes: nl sclera, PERRL ENMT: mucosa pink and moist Respiratory: diminished breath sounds Cardiovascular: regular rate and rhythm Gastrointestinal: soft, other (No non verbal cues to pain during palpitation, g tube site clean and dry) Neurological: other (encephalopathy) Medications Medications Current Medications Acetaminophen (Tylenol Tab) 1,000 mg Q4 PRN PO MODERATE PAIN LEVEL 4-6 Last administered on 04/07/18 12:14; Admin Dose 1,000 MG; Start 03/31/18 at 18:00 Acetaminophen (Tylenol Tab) 650 mg Q4 PRN GTB MILD PAIN LEVEL 1-3 Last administered on 03/31/18at 23:41; Admin Dose 650 MG; Start 03/31/18 at 18:00 Albuterol (Proventil 0.083% (Neb)) 2.5 mg Q3H PRN NEB WHEEZING AND SOB; Start 03/31/18 at 18:00 Albuterol (Proventil 0.083% (Neb)) 2.5 mg Q6 PRN NEB WHEEZING AND SOB; Start 03/31/18 at 18:00 Ascorbic Acid (Vitamin C) 500 mg DAILY GTB Last administered on 04/07/18at 08:36; Admin Dose 500 MG; Start 04/01/18 at 09:00 Bisacodyl (Dulcolax Supp) 10 mg DAILY PRN GA CONSTIPATION; Start 03/31/18 at 18:00 Carvedilol (Coreg) 25 mg BID GTB Last administered on 04/07/18at 20:51; Admin Dose 25 MG; Start 03/31/18 at 21:00 Multivit/Ca Carb/ B Cmplx/FA/Prenat (Sofy-Sandoval) 1 tab DAILY GTB Last administered on 04/07/18at 08:36; Admin Dose 1 TAB; Start 04/01/18 at 09:00 Zinc Sulfate (Zinc Sulfate) 220 mg DAILY GTB Last administered on 04/07/18 08:35; Admin Dose 220 MG; Start 04/01/18 at 09:00 IV Flush (NS 3 ml) 3 ml PER PROTOCOL IV ; Start 03/31/18 at 18:30 Ondansetron HCl (Zofran Inj) 4 mg Q6H PRN IV NAUSEA AND/OR VOMITING; Start 03/31/18 at 18:30 Acetaminophen (Tylenol Tab) 650 mg Q6H PRN PO PAIN LEVEL 1-3 OR FEVER Last administered on 04/06/18 03:55; Admin Dose 650 MG; Start 03/31/18 at 18:30 Acetaminophen (Tylenol Supp) 650 mg Q6H PRN GA PAIN LEVEL 1-3 OR FEVER Last administered on 04/02/18 20:38; Admin Dose 650 MG; Start 03/31/18 at 18:30 Docusate Sodium (Colace) 100 mg Q12H PRN PO CONSTIPATION; Start 03/31/18 at 18:30 Pantoprazole (Protonix Iv) 40 mg DAILY@06 IV Last administered on 04/08/18 06:04; Admin Dose 40 MG; Start 04/01/18 at 06:00 Vancomycin HCl (Vanco Iv Per Pharmacy) VANCOMYCIN PER PHARMACY PER PROTOCOL XX ; Start 04/01/18 at 13:00 Alteplase, Recombinant (Cathflo (Activase)) 2 mg MAY REPEAT X1 PRN CATHETER IF CATHETER REMAINS OCCULUDED Last administered on 04/03/18 04:24; Admin Dose 2 MG; Start 04/01/18 at 21:00 Fluconazole 100 ml @ 100 mls/hr Q24H IVPB Last administered on 04/07/18 12:14; Admin Dose 100 MLS/HR; Start 04/02/18 at 12:00 Vancomycin HCl 250 ml @ 125 mls/hr Q24H IVPB Last administered on 04/07/18 08:36; Admin Dose 125 MLS/HR; Start 04/03/18 at 09:00 Collagenase (Santyl) 1 applic DAILY TOP Last administered on 04/07/18 08:36; Admin Dose 1 APPLIC; Start 04/03/18 at 12:00 Sodium Chloride 1,000 ml @ 50 mls/hr Q20H IV Last administered on 04/07/18at 0 6:02; Admin Dose 50 MLS/HR; Start 04/04/18 at 10:00 Meropenem/Sodium Chloride 50 ml @ 100 mls/hr Q8 IVPB Last administered on 04/08/18 06:04; Admin Dose 100 MLS/HR; Start 04/04/18 at 22:00 Midodrine (Proamatine) 5 mg BID GTB Last administered on 04/07/18 20:51; Admin Dose 5 MG; Start 1/10/19 at 22:00 Morphine Sulfate (morphine) 6 mg Q4H PRN GTB SEVERE PAIN LEVEL 6-10; Start 04/04/18 at 23:00 Lorazepam (Ativan) 2 mg Q4H PRN IV restless, agitation, anxiety Last administered on 04/06/18at 02:54; Admin Dose 2 MG; Start 04/05/18 at 10:00 Metronidazole (Flagyl) 500 mg Q8 NGT Last administered on 04/08/18at 06:04; Admin Dose 500 MG; Start 04/06/18 at 14:00 QI CHRISTIANSON Apr 08, 2018 07:18
[2018-04-08] MEDS ORDERED: VITAMIN A & D 5 GM OINT PACKET TOP ONE (08:19)
[2018-04-08] MEDS ORDERED: BISACODYL 10 MG SUPP PR ONE (08:30)
[2018-04-08] MEDS: COLLAGENASE 5 GM (UD JAR) TOP SCH (08:55)
[2018-04-08] MEDS: MIDODRINE 2.5 MG TAB GTB SCH (08:55)
[2018-04-08] MEDS: MULTIVIT/CA CARB/B CMPLX/FA TAB GTB SCH (08:56)
[2018-04-08] MEDS: ASCORBIC ACID 500 MG TAB GTB SCH (08:56)
[2018-04-08] MEDS: POLYETHYLENE GLYCOL 17 GM PACKET GTB SCH (08:56)
[2018-04-08] MEDS: ZINC SULFATE 220 MG CAP GTB SCH (08:56)
[2018-04-08] MEDS: VANCOMYCIN 1 GM 250 ML IVPB SCH (08:57)
[2018-04-08] MEDS: BALSAM PERU/CASTOR OIL 60 GM TUBE TOP SCH ×2 (08:57→21:35)
[2018-04-08] MEDS: LORAZEPAM 2 MG INJ IV PRN (10:05)
--- NOTE | 2018-04-08 11:19 | PN ---
Date/Time of Note Date/Time of Note DATE: 04/08/18 TIME: 11:13 Assessment/Plan VTE Prophylaxis [place] [facility] [place]0 risk: 8 SCD applied (from [facility] [place] Yes Pharmacological prophylaxis: NA/contraindicated Pharm contraindication: low risk/ambulating, bleeding Lines/Catheters IV C[facility]ter Type (from [facility]): PICC Line Central line still needed: Yes Urinary Cath still in place: Yes Reason Cath still needed: urinary retention Assessment/Plan Hospital Course 62 y/o with # Oral gingival bleeding likely due to dentures, seen by ENT s/p endoscopy # Sepsis with Fevers with hx Pneumonia +UTI and ? Pancreatitis +multiple wounds, ucx+ lisa, wound cx+ MRSA/ pseudomonas, +resp culture +pseudomonas # Blood loss anemia due to oral gingival bleeding # VDRF # CKD with worsening renal failure> improved # Metabolic acidosis #DILATED CARDIOMYOPATHY # HX ALCOHOL ABUSE # Multiple wounds > decub # Pancreatitis # Enterocoltiis on CT Plan - NPO per GI - mrcp - hold midodrine - increase coreg - iv abx with vanco/meropenam/fllagyl - no blood thinners due to anemia - GI prophylaxsis - montior oral bleeding Result Diagram: 04/08/18 0553 04/08/18 0553 Results 24hrs Laboratory Tests Test 04/08/18 05:53 White Blood Count 7.4 Red Blood Count 3.50 #L Hemoglobin 9.8 #L Hematocrit 30.0 #L Mean Corpuscular Volume 85.7 Mean Corpuscular Hemoglobin 28.0 L Mean Corpuscular Hemoglobin Concent 32.7 Red Cell Distribution Width 15.2 H Platelet Count 186 Mean Platelet Volume 10.5 H Immature Granulocytes % 0.500 H Neutrophils % 79.1 H Lymphocytes % 5.7 L Monocytes % 12.6 H Eosinophils % 1.2 Basophils % 0.9 Nucleated Red Blood Cells % 0.0 Immature Granulocytes # 0.040 H Neutrophils # 5.9 Lymphocytes # 0.4 L Monocytes # 0.9 Eosinophils # 0.1 Basophils # 0.1 Nucleated Red Blood Cells # 0.0 Absolute Reticulocyte Count 0.038 Percent Reticulocyte Count 1.1 Sodium Level 143 Potassium Level 3.7 Chloride Level 117 H Carbon Dioxide Level 17 L Anion Gap 9 Blood Urea Nitrogen 28 H Creatinine 0.80 Est Glomerular Filtrat Rate mL/min > 60 Glucose Level 103 Calcium Level 8.2 L Magnesium Level 2.1 Iron Level 17 L Total Iron Binding Capacity 161 L Percent Iron Saturation 11 L Ferritin 951.0 H Total Bilirubin 0.0 L Direct Bilirubin 0.00 Indirect Bilirubin 0.0 Aspartate Amino Transf (AST/SGOT) 57 H Alanine Aminotransferase (ALT/SGPT) 20 Alkaline Phosphatase 78 Total Protein 6.8 Albumin 2.8 L Globulin 4.00 H Albumin/Globulin Ratio 0.70 Triglycerides Level 127 Cholesterol Level 75 L LDL Cholesterol, Calculated 38 HDL Cholesterol 12 L Cholesterol/HDL Ratio 6.2 Folate > 20.0 H Subjective 24 Hr Interval Summary Free Text/Dictation Fevers 101.7 yesterday SBP high received [address] a+p enterocolitis Exam/Review of Systems Vital Signs Vitals Vital Signs Date Temp Pulse Resp B/P (MAP) Pulse Ox O2 O2 Flow FiO2 Time Delivery Rate 04/08/18 98.6 98 17 161/101 100 08:13 (121) 04/08/18 Nasal 08:00 Cannula 04/08/18 30 08:00 Intake and Output 04/07/18 04/07/18 04/08/18 1515:00 23:00 07:00 IntakeIntake Total 550 ml 520 ml 650 ml OutputOutput Total 1300 ml 1000 ml BalanceBalance 550 ml -780 ml -350 ml Exam Constitutional:Well-developed. Well-nourished., tachpnic HEENT:Normocephalic. Atraumatic.Pupils were equal round reactive to light. Significant amount of bright red blood present within the oropharynx. Chapped lips that were actively bleeding..+old dried blood around lips Neck: . Tracheostomy site clean dry and intact Respiratory: lungs clear Cardiovascular: tachycardic GI: Abdomen was soft. Nontender. Non Distended. No pulsatile abdominal masses or bruits. No rebound. No guarding. Bowel sounds were present and normal. Muscle skeletal: Muscle atrophy of the bilateral lower extremities. Patient has limited range of motion of the right upper and lower extremity but was able to flex extend at the elbow and lift his right upper extremity against gravity. P atient has no movement of the bilateral lower extremities multiple wounds rt PICC Medications Medications Current Medications Acetaminophen (Tylenol Tab) 1,000 mg Q4 PRN PO MODERATE PAIN LEVEL 4-6 Last administered on 04/07/18at 12:14; Admin Dose 1,000 MG; Start 03/31/18 at 18:00 Acetaminophen (Tylenol Tab) 650 mg Q4 PRN GTB MILD PAIN LEVEL 1-3 Last administered on 03/31/18at 23:41; Admin Dose 650 MG; Start 03/31/18 at 18:00 Albuterol (Proventil 0.083% (Neb)) 2.5 mg Q3H PRN NEB WHEEZING AND SOB; Start 03/31/18 at 18:00 Albuterol (Proventil 0.083% (Neb)) 2.5 mg Q6 PRN NEB WHEEZING AND SOB; Start 03/31/18 at 18:00 Ascorbic Acid (Vitamin C) 500 mg DAILY GTB Last administered on 04/08/18at 08:56; Admin Dose 500 MG; Start 04/01/18 at 09:00 Bisacodyl (Dulcolax Supp) 10 mg DAILY PRN [place] CONSTIPATION; Start 03/31/18 at 18:00 Multivit/Ca Carb/ B Cmplx/FA/Prenat (Sofy-Sandoval) 1 tab DAILY GTB Last administered on 04/08/18at 08:56; Admin Dose 1 TAB; Start 04/01/18 at 09:00 Zinc Sulfate (Zinc Sulfate) 220 mg DAILY GTB Last administered on 04/08/18at 08:56; Admin Dose 220 MG; Start 04/01/18 at 09:00 IV Flush (NS 3 ml) 3 ml PER PROTOCOL IV ; Start 03/31/18 at 18:30 Ondansetron HCl (Zofran Inj) 4 mg Q6H PRN IV NAUSEA AND/OR VOMITING; Start 03/31/18 at 18:30 Acetaminophen (Tylenol Tab) 650 mg Q6H PRN PO PAIN LEVEL 1-3 OR FEVER Last administered on 04/06/18at 03:55; Admin Dose 650 MG; Start 03/31/18 at 18:30 Acetaminophen (Tylenol Supp) 650 mg Q6H PRN [place] PAIN LEVEL 1-3 OR FEVER Last administered on 04/02/18at 20:38; Admin Dose 650 MG; Start 03/31/18 at 18:30 Docusate Sodium (Colace) 100 mg Q12H PRN PO CONSTIPATION; Start 03/31/18 at 18:30 Vancomycin HCl (Vanco Iv Per Pharmacy) VANCOMYCIN PER PHARMACY PER PROTOCOL XX ; Start 04/01/18 at 13:00 Alteplase, Recombinant (Cathflo (Activase)) 2 mg MAY REPEAT X1 PRN CATHETER IF CATHETER REMAINS OCCULUDED Last administered on 04/03/18at 04:24; Admin Dose 2 MG; Start 04/01/18 at 21:00 Fluconazole 100 ml @ 100 mls/hr Q24H IVPB Last administered on 04/07/18at 12:14; Admin Dose 100 MLS/HR; Start 04/02/18 at 12:00 Vancomycin HCl 250 ml @ 125 mls/hr Q24H IVPB Last administered on 04/08/18 08:57; Admin Dose 125 MLS/HR; Start 04/03/18 at 09:00 Collagenase (Santyl) 1 applic DAILY TOP Last administered on 04/08/18at 08:55; Admin Dose 1 APPLIC; Start 04/03/18 at 12:00 Sodium Chloride 1,000 ml @ 50 mls/hr Q20H IV Last administered on 04/07/18 06:02; Admin Dose 50 MLS/HR; Start 04/04/18 at 10:00 Meropenem/Sodium Chloride 50 ml @ 100 mls/hr Q8 IVPB Last administered on 04/08/18 06:04; Admin Dose 100 MLS/HR; Start 04/04/18 at 22:00 Morphine Sulfate (morphine) 6 mg Q4H PRN GTB SEVERE PAIN LEVEL 6-10; Start 04/04/18 at 23:00 Lorazepam (Ativan) 2 mg Q4H PRN IV restless, agitation, anxiety Last admin istered on 04/08/18at 10:05; Admin Dose 2 MG; Start 04/05/18 at 10:00 Metronidazole (Flagyl) 500 mg Q8 NGT Last administered on 04/08/18at 06:04; Admin Dose 500 MG; Start 04/06/18 at 14:00 Pantoprazole (Protonix Iv) 40 mg BID@06,18 IV ; Start 04/08/18 at 18:00 Polyethylene Glycol (Miralax) 17 gm DAILY GTB Last administered on 04/08/18at 08:56; Admin Dose 17 GM; Start 04/08/18 at 09:00 Carvedilol (Coreg) 50 mg BID GTB ; Start 04/08/18 at 21:00 TAMARA GRAJEDA MD Apr 08, 2018 11:19
--- NOTE | 2018-04-08 11:28 | CONS ---
Date/Time of Note Date/Time of Note DATE: 04/08/18 TIME: 11:26 Consult Date/Type/Reason Admit Date/Time Mar 31, 2018 at 17:58 Initial Consult Date 04/02/18 Type of Consultation: Pulmonary Requesting Provider: TAMARA GRAJEDA MD Subjective Remains stable, no distress. Objective Vital Signs Date Temp Pulse Resp B/P (MAP) Pulse Ox O2 O2 Flow FiO2 Time Delivery Rate 04/08/18 98.6 98 17 161/101 100 08:13 (121) 04/08/18 Nasal 08:00 Cannula 04/08/18 30 08:00 Intake and Output 04/07/18 04/07/18 04/08/18 1515:00 23:00 07:00 IntakeIntake Total 550 ml 520 ml 650 ml OutputOutput Total 1300 ml 1000 ml BalanceBalance 550 ml -780 ml -350 ml Exam PHYSICAL EXAMINATION GENERAL: Chronically ill-appearing gentleman on mechanical ventilation VITAL SIGNS: see below. HEENT: Pupils equal, round, and reactive to light. Tracheostomy site clean and intact. CARDIAC: S1, S2, 1/6 systolic ejection murmur CHEST: Diminished air entry bilaterally. ABDOMEN: Mildly distended. Bowel sounds present no guarding or rebound EXTREMITIES: No cyanosis, clubbing edema +1 NEUROLOGIC: Generalized weakness Results/Medications Result Diagram: 04/08/18 0553 04/08/18 0553 Results 24 hrs Laboratory Tests Test 04/08/18 05:53 White Blood Count 7.4 Red Blood Count 3.50 #L Hemoglobin 9.8 #L Hematocrit 30.0 #L Mean Corpuscular Volume 85.7 Mean Corpuscular Hemoglobin 28.0 L Mean Corpuscular Hemoglobin Concent 32.7 Red Cell Distribution Width 15.2 H Platelet Count 186 Mean Platelet Volume 10.5 H Immature Granulocytes % 0.500 H Neutrophils % 79.1 H Lymphocytes % 5.7 L Monocytes % 12.6 H Eosinophils % 1.2 Basophils % 0.9 Nucleated Red Blood Cells % 0.0 Immature Granulocytes # 0.040 H Neutrophils # 5.9 Lymphocytes # 0.4 L Monocytes # 0.9 Eosinophils # 0.1 Basophils # 0.1 Nucleated Red Blood Cells # 0.0 Absolute Reticulocyte Count 0.038 Percent Reticulocyte Count 1.1 Sodium Level 143 Potassium Level 3.7 Chloride Level 117 H Carbon Dioxide Level 17 L Anion Gap 9 Blood Urea Nitrogen 28 H Creatinine 0.80 Est Glomerular Filtrat Rate mL/min > 60 Glucose Level 103 Calcium Level 8.2 L Magnesium Level 2.1 Iron Level 17 L Total Iron Binding Capacity 161 L Percent Iron Saturation 11 L Ferritin 951.0 H Total Bilirubin 0.0 L Direct Bilirubin 0.00 Indirect Bilirubin 0.0 Aspartate Amino Transf (AST/SGOT) 57 H Alanine Aminotransferase (ALT/SGPT) 20 Alkaline Phosphatase 78 Total Protein 6.8 Albumin 2.8 L Globulin 4.00 H Albumin/Globulin Ratio 0.70 Triglycerides Level 127 Cholesterol Level 75 L LDL Cholesterol, Calculated 38 HDL Cholesterol 12 L Cholesterol/HDL Ratio 6.2 Folate > 20.0 H Medications Current Medications Acetaminophen (Tylenol Tab) 1,000 mg Q4 PRN PO MODERATE PAIN LEVEL 4-6 Last administered on 04/07/18at 12:14; Admin Dose 1,000 MG; Start 03/31/18 at 18:00 Acetaminophen (Tylenol Tab) 650 mg Q4 PRN GTB MILD PAIN LEVEL 1-3 Last adminis tered on 03/31/18at 23:41; Admin Dose 650 MG; Start 03/31/18 at 18:00 Albuterol (Proventil 0.083% (Neb)) 2.5 mg Q3H PRN NEB WHEEZING AND SOB; Start 03/31/18 at 18:00 Albuterol (Proventil 0.083% (Neb)) 2.5 mg Q6 PRN NEB WHEEZING AND SOB; Start 03/31/18 at 18:00 Ascorbic Acid (Vitamin C) 500 mg DAILY GTB Last administered on 04/08/18at 08:56; Admin Dose 500 MG; Start 04/01/18 at 09:00 Bisacodyl (Dulcolax Supp) 10 mg DAILY PRN [place] CONSTIPATION; Start 03/31/18 at 18:00 Multivit/Ca Carb/ B Cmplx/FA/Prenat (Sofy-Sandoval) 1 tab DAILY GTB Last administered on 04/08/18at 08:56; Admin Dose 1 TAB; Start 04/01/18 at 09:00 Zinc Sulfate (Zinc Sulfate) 220 mg DAILY GTB Last administered on 04/08/18 08:56; Admin Dose 220 MG; Start 04/01/18 at 09:00 IV Flush (NS 3 ml) 3 ml PER PROTOCOL IV ; Start 03/31/18 at 18:30 Ondansetron HCl (Zofran Inj) 4 mg Q6H PRN IV NAUSEA AND/OR VOMITING; Start 03/31/18 at 18:30 Acetaminophen (Tylenol Tab) 650 mg Q6H PRN PO PAIN LEVEL 1-3 OR FEVER Last administered on 04/06/18at 03:55; Admin Dose 650 MG; Start 03/31/18 at 18:30 Acetaminophen (Tylenol Supp) 650 mg Q6H PRN [place] PAIN LEVEL 1-3 OR FEVER Last administered on 04/02/18at 20:38; Admin Dose 650 MG; Start 03/31/18 at 18:30 Docusate Sodium (Colace) 100 mg Q12H PRN PO CONSTIPATION; Start 03/31/18 at 18:30 Vancomycin HCl (Vanco Iv Per Pharmacy) VANCOMYCIN PER PHARMACY PER PROTOCOL XX ; Start 04/01/18 at 13:00 Alteplase, Recombinant (Cathflo (Activase)) 2 mg MAY REPEAT X1 PRN CATHETER IF CATHETER REMAINS OCCULUDED Last administered on 04/03/18at 04:24; Admin Dose 2 MG; Start 04/01/18 at 21:00 Fluconazole 100 ml @ 100 mls/hr Q24H IVPB Last administered on 04/07/18at 12:14; Admin Dose 100 MLS/HR; Start 04/02/18 at 12:00 Vancomycin HCl 250 ml @ 125 mls/hr Q24H IVPB Last administered on 04/08/18at 08:57; Admin Dose 125 MLS/HR; Start 04/03/18 at 09:00 Collagenase (Santyl) 1 applic DAILY TOP Last administered on 04/08/18at 08:55; Admin Dose 1 APPLIC; Start 04/03/18 at 12:00 Meropenem/Sodium Chloride 50 ml @ 100 mls/hr Q8 IVPB Last administered on 04/08/18 06:04; Admin Dose 100 MLS/HR; Start 04/04/18 at 22:00 Morphine Sulfate (morphine) 6 mg Q4H PRN GTB SEVERE PAIN LEVEL 6-10; Start 04/04/18 at 23:00 Lorazepam (Ativan) 2 mg Q4H PRN IV restless, agitation, anxiety Last administered on 04/08/18 10:05; Admin Dose 2 MG; Start 04/05/18 at 10:00 Metronidazole (Flagyl) 500 mg Q8 NGT Last administered on 04/08/18at 06:04; Admin Dose 500 MG; Start 04/06/18 at 14:00 Pantoprazole (Protonix Iv) 40 mg BID@06,18 IV ; Start 04/08/18 at 18:00 Polyethylene Glycol (Miralax) 17 gm DAILY GTB Last administered on 04/08/18at 08:56; Admin Dose 17 GM; Start 04/08/18 at 09:00 Carvedilol (Coreg) 50 mg BID GTB ; Start 04/08/18 at 21:00 Dextrose/Sodium Chloride 1,000 ml @ 40 mls/hr Q24H IV ; Start 04/08/18 at 11:30 Assessment/Plan Chief Complaint/Hosp Course Assessment 1. Vent dependent respiratory failure 2. Anemia from upper airway bleed 3. Chronic encephalopathy 4. Dysphagia with G-tube Plan 1. Monitor H&H consider infusion of another unit 2. Continue mechanical ventilation 3. NPO, MRCP pending. 4. DVT and GI prophylaxis SIRIA PISANO MD, [facility] Apr 08, 2018 11:28
[2018-04-08] MEDS: DEXTROSE 5%-0.45% NACL 1,000 ML IV SCH (11:36)
[2018-04-08] MEDS: FLUCONAZOLE 200 MG (PMX) 100 ML IVPB SCH (11:36)
[2018-04-08] MEDS: ACETAMINOPHEN 325 MG TAB GTB PRN (12:26)
--- NOTE | 2018-04-08 15:25 | CONS ---
Date/Time of Note Date/Time of Note DATE: 04/08/18 TIME: 15:23 Assessment/Plan Assessment/Plan Hospital Course No acute changes overnight, patient continues to spike fevers with a T-max of 101.2. WBC today 7.4 neutrophils 79.1 BUN 28 creatinine 0.80 Microbiology: Blood cultures remain negative. Urine culture positive for Breanne albicans. Endotracheal aspirate growing gram-negative rods. Sacral wound culture growing MRSA, Breanne albicans, enterococcus, gram-negative rods. Nares swab positive for MRSA CT of the abdomen and pelvis revealed questionable enterocolitis. Cholelithiasis. Tiny bilateral pleural effusions with bibasilar airspace disease. Indwelling: Peg, Schwartz, right upper extremity PICC line, tracheostomy Antimicrobials: Flagyl meropenem vancomycin fluconazole Physical examination: Chronically ill-appearing elderly man who is noncommunicative in no distress. Head atraumatic normocephalic sclera nonicteric neck is supple tracheostomy present chest rise symmetrical breath sounds diminished bases heart: S1-S2. Abdomen soft bowel sounds present. Extremities without cyanosis. Skin: Patient has multiple pressure sores he has a dry blood on the right lower lip Assessment: 1. Sepsis with ongoing fevers 2. Acute pancreatitis, CT of the abdomen revealed no abscess, no pseudocyst 3. Breanne albicans UTI 4. History of cardiomyopathy 5. Chronic respiratory failure 6. Ongoing gingival bleeding, s/p ENT eval 7. Sacral decub 8. MRSA nares colonization 9. Possible enterocolitis Plan: Clinically unchanged, fevers persist, will repeat blood and urine cultures, continue antibiotics, pending EEG, add tobramycin inhalation, procalcitonin level Result Diagram: 04/08/18 0553 04/08/18 0553 Results 24hrs Laboratory Tests Test 04/08/18 05:53 White Blood Count 7.4 Red Blood Count 3.50 #L Hemoglobin 9.8 #L Hematocrit 30.0 #L Mean Corpuscular Volume 85.7 Mean Corpuscular Hemoglobin 28.0 L Mean Corpuscular Hemoglobin Concent 32.7 Red Cell Distribution Width 15.2 H Platelet Count 186 Mean Platelet Volume 10.5 H Immature Granulocytes % 0.500 H Neutrophils % 79.1 H Lymphocytes % 5.7 L Monocytes % 12.6 H Eosinophils % 1.2 Basophils % 0.9 Nucleated Red Blood Cells % 0.0 Immature Granulocytes # 0.040 H Neutrophils # 5.9 Lymphocytes # 0.4 L Monocytes # 0.9 Eosinophils # 0.1 Basophils # 0.1 Nucleated Red Blood Cells # 0.0 Absolute Reticulocyte Count 0.038 Percent Reticulocyte Count 1.1 Sodium Level 143 Potassium Level 3.7 Chloride Level 117 H Carbon Dioxide Level 17 L Anion Gap 9 Blood Urea Nitrogen 28 H Creatinine 0.80 Est Glomerular Filtrat Rate mL/min > 60 Glucose Level 103 Calcium Level 8.2 L Magnesium Level 2.1 Iron Level 17 L Total Iron Binding Capacity 161 L Percent Iron Saturation 11 L Ferritin 951.0 H Total Bilirubin 0.0 L Direct Bilirubin 0.00 Indirect Bilirubin 0.0 Aspartate Amino Transf (AST/SGOT) 57 H Alanine Aminotransferase (ALT/SGPT) 20 Alkaline Phosphatase 78 Total Protein 6.8 Albumin 2.8 L Globulin 4.00 H Albumin/Globulin Ratio 0.70 Triglycerides Level 127 Cholesterol Level 75 L LDL Cholesterol, Calculated 38 HDL Cholesterol 12 L Cholesterol/HDL Ratio 6.2 Folate > 20.0 H Consultation Date/Type/Reason Admit Date/Time Mar 31, 2018 at 17:58 Initial Consult Date 04/02/18 Type of Consult id Requesting Provider: TAMARA GRAJEDA MD Exam/Review of Systems Vital Signs Vitals Vital Signs Date Temp Pulse Resp B/P (MAP) Pulse Ox O2 O2 Flow FiO2 Time Delivery Rate 04/08/18 98.9 14:31 04/08/18 89 33 100 30 13:26 04/08/18 96/72 (80) Mechanical 12:17 Ventilator Trach Collar Intake and Output 04/07/18 04/07/18 04/08/18 1515:00 23:00 07:00 IntakeIntake Total 550 ml 520 ml 650 ml OutputOutput Total 1300 ml 1000 ml BalanceBalance 550 ml -780 ml -350 ml Medications Medications Current Medications Acetaminophen (Tylenol Tab) 1,000 mg Q4 PRN PO MODERATE PAIN LEVEL 4-6 Last administered on 04/07/18at 12:14; Admin Dose 1,000 MG; Start 03/31/18 at 18:00 Acetaminophen (Tylenol Tab) 650 mg Q4 PRN GTB MILD PAIN LEVEL 1-3 Last admin istered on 04/08/18at 12:26; Admin Dose 650 MG; Start 03/31/18 at 18:00 Albuterol (Proventil 0.083% (Neb)) 2.5 mg Q3H PRN NEB WHEEZING AND SOB; Start 03/31/18 at 18:00 Albuterol (Proventil 0.083% (Neb)) 2.5 mg Q6 PRN NEB WHEEZING AND SOB; Start 03/31/18 at 18:00 Ascorbic Acid (Vitamin C) 500 mg DAILY GTB Last administered on 04/08/18at 08:56; Admin Dose 500 MG; Start 04/01/18 at 09:00 Bisacodyl (Dulcolax Supp) 10 mg DAILY PRN [place] CONSTIPATION; Start 03/31/18 at 18:00 Multivit/Ca Carb/ B Cmplx/FA/Prenat (Sofy-Sandoval) 1 tab DAILY GTB Last administered on 04/08/18at 08:56; Admin Dose 1 TAB; Start 04/01/18 at 09:00 Zinc Sulfate (Zinc Sulfate) 220 mg DAILY GTB Last administered on 04/08/18at 08:56; Admin Dose 220 MG; Start 04/01/18 at 09:00 IV Flush (NS 3 ml) 3 ml PER PROTOCOL IV ; Start 03/31/18 at 18:30 Ondansetron HCl (Zofran Inj) 4 mg Q6H PRN IV NAUSEA AND/OR VOMITING; Start 03/31/18 at 18:30 Acetaminophen (Tylenol Tab) 650 mg Q6H PRN PO PAIN LEVEL 1-3 OR FEVER Last administered on 04/06/18at 03:55; Admin Dose 650 MG; Start 03/31/18 at 18:30 Acetaminophen (Tylenol Supp) 650 mg Q6H PRN [place] PAIN LEVEL 1-3 OR FEVER Last administered on 04/02/18at 20:38; Admin Dose 650 MG; Start 03/31/18 at 18:30 Docusate Sodium (Colace) 100 mg Q12H PRN PO CONSTIPATION; Start 03/31/18 at 18:30 Vancomycin HCl (Vanco Iv Per Pharmacy) VANCOMYCIN PER PHARMACY PER PROTOCOL XX ; Start 04/01/18 at 13:00 Alteplase, Recombinant (Cathflo (Activase)) 2 mg MAY REPEAT X1 PRN CATHETER IF CATHETER REMAINS OCCULUDED Last administered on 04/03/18at 04:24; Admin Dose 2 MG; Start 04/01/18 at 21:00 Fluconazole 100 ml @ 100 mls/hr Q24H IVPB Last administered on 04/08/18 11:36; Admin Dose 100 MLS/HR; Start 04/02/18 at 12:00 Vancomycin HCl 250 ml @ 125 mls/hr Q24H IVPB Last administered on 04/08/18 08:57; Admin Dose 125 MLS/HR; Start 04/03/18 at 09:00 Collagenase (Santyl) 1 applic DAILY TOP Last administered on 04/08/18 08:55; Admin Dose 1 APPLIC; Start 04/03/18 at 12:00 Meropenem/Sodium Chloride 50 ml @ 100 mls/hr Q8 IVPB Last administered on 04/08/18 14:28; Admin Dose 100 MLS/HR; Start 04/04/18 at 22:00 Morphine Sulfate (morphine) 6 mg Q4H PRN GTB SEVERE PAIN LEVEL 6-10; Start 04/04/18 at 23:00 Lorazepam (Ativan) 2 mg Q4H PRN IV restless, agitation, anxiety Last administered on 04/08/18 10:05; Admin Dose 2 MG; Start 04/05/18 at 10:00 Metronidazole (Flagyl) 500 mg Q8 NGT Last administered on 04/08/18 14:28; Admin Dose 500 MG; Start 04/06/18 at 14:00 Pantoprazole (Protonix Iv) 40 mg BID@06,18 IV ; Start 04/08/18 at 18:00 Polyethylene Glycol (Miralax) 17 gm DAILY GTB Last administered on 04/08/18 08:56; Admin Dose 17 GM; Start 04/08/18 at 09:00 Carvedilol (Coreg) 50 mg BID GTB ; Start 04/08/18 at 21:00 Dextrose/Sodium Chloride 1,000 ml @ 40 mls/hr Q24H IV Last administered on 04/08/18 11:36; Admin Dose 40 MLS/HR; Start 04/08/18 at 11:30 RENÉ GARCIA NP Apr 08, 2018 15:25
--- NOTE | 2018-04-08 16:21 | CONS ---
Assessment/Plan Assessment/Plan Hospital Course 62 M c/ Hx of ETOH abuse c/b cirrhosis and dilated cardiomyopathy... and other comorbidities, admitted for evaluation of gingival bleeding..and fevers.... Neurology is consulted to evaluate chronic encephalopathy and assess prognosis for meaningful neurologic recovery.. The patient and family are unable to contribute a Hx; EMR documentation is relatively sparse... D/C summary from his next most recent admission in 2016 notes an admission for hypoxic respiratory failure and severe ETOH w/d...which saw him discharged to home following extubation and clinical improvement... Interval Hx is lacking... It is, thus, currently impossible to provide any meaningful opinion regarding his chronic neurologic disease.. As an aside, he likely today has a superimposed acute toxic-metabolic on chronic encephalopathy.. Head CT shows only mild volume loss and some small vessel ischemic disease.. MRI brain is concerning for a subacute cerebellar infarction, though it is limited by motion.. P: Clarify neurologic Hx when able; await records from [facility] for secondary stroke prevention when medically able (ie severe anemia and gingival hemorrhage are solved..); LDL is at goal... Await EEG.. Continued medical management and supportive care per primary Limit sedating medications where possible PT/OT/ST as able Will follow Result Diagram: 04/08/18 0553 04/08/18 0553 Results 24hrs Laboratory Tests Test 04/08/18 05:53 White Blood Count 7.4 Red Blood Count 3.50 #L Hemoglobin 9.8 #L Hematocrit 30.0 #L Mean Corpuscular Volume 85.7 Mean Corpuscular Hemoglobin 28.0 L Mean Corpuscular Hemoglobin Concent 32.7 Red Cell Distribution Width 15.2 H Platelet Count 186 Mean Platelet Volume 10.5 H Immature Granulocytes % 0.500 H Neutrophils % 79.1 H Lymphocytes % 5.7 L Monocytes % 12.6 H Eosinophils % 1.2 Basophils % 0.9 Nucleated Red Blood Cells % 0.0 Immature Granulocytes # 0.040 H Neutrophils # 5.9 Lymphocytes # 0.4 L Monocytes # 0.9 Eosinophils # 0.1 Basophils # 0.1 Nucleated Red Blood Cells # 0.0 Absolute Reticulocyte Count 0.038 Percent Reticulocyte Count 1.1 Sodium Level 143 Potassium Level 3.7 Chloride Level 117 H Carbon Dioxide Level 17 L Anion Gap 9 Blood Urea Nitrogen 28 H Creatinine 0.80 Est Glomerular Filtrat Rate mL/min > 60 Glucose Level 103 Calcium Level 8.2 L Magnesium Level 2.1 Iron Level 17 L Total Iron Binding Capacity 161 L Percent Iron Saturation 11 L Ferritin 951.0 H Total Bilirubin 0.0 L Direct Bilirubin 0.00 Indirect Bilirubin 0.0 Aspartate Amino Transf (AST/SGOT) 57 H Alanine Aminotransferase (ALT/SGPT) 20 Alkaline Phosphatase 78 Total Protein 6.8 Albumin 2.8 L Globulin 4.00 H Albumin/Globulin Ratio 0.70 Triglycerides Level 127 Cholesterol Level 75 L LDL Cholesterol, Calculated 38 HDL Cholesterol 12 L Cholesterol/HDL Ratio 6.2 Lipase 3025 H Folate > 20.0 H Consultation Date/Type/Reason Admit Date/Time Mar 31, 2018 at 17:58 Type of Consult Neurology Requesting Provider: TAMARA GRAJEDA MD Date/Time of Note DATE: 04/08/18 TIME: 16:21 24 HR Interval Summary Free Text/Dictation Continues telemetry monitoring. No acute events or changes in pt condition reported. Pt's family is unable to provide a clear history at this time. Subjective hx not possible: pt non-verbal Exam Vital Signs Vitals Vital Signs Date Temp Pulse Resp B/P (MAP) Pulse Ox O2 O2 Flow FiO2 Time Delivery Rate 04/08/18 85 21 100 30 15:50 04/08/18 98.9 14:31 04/08/18 96/72 (80) Mechanical 12:17 Ventilator Trach Collar Intake and Output 04/07/18 04/07/18 04/08/18 1515:00 23:00 07:00 IntakeIntake Total 550 ml 520 ml 650 ml OutputOutput Total 1300 ml 1000 ml BalanceBalance 550 ml -780 ml -350 ml Exam PE: Gen Appearance: No Apparent Distress; dried blood in mouth... HEENT: Trach Cardiovascular: Regular rate Respiratory: Tachypneic Abdomen: Soft Extremities: Dry NE: The patient was awake though nonverbal. Unable to fix or follow commands. Cranial nerve examination was limited by mental status. Pupils were equal and reactive to light. There was no afferent pupillary defect. Funduscopic examination was limited. Face was grossly symmetric, w/ present corneal and cough reflexes. Tone was normal. Muscle bulk was reduced. I did not see fasciculations. The patient was moving his extremities spontaneously, BUE symmetrically and BLE (L<R) Coordination and gait testing was limited by mental status. Arm and leg reflexes were within normal limits and symmetric. Maguire's sign was absent. Plantar responses were flexor. ANURAG PRESSLEY NP Apr 08, 2018 16:21 MANDO PINO Apr 09, 2018 06:57
[2018-04-08] MEDS ORDERED: TOBRAMYCIN/0.25NS 300 MG/5 ML INHAL NEB SCH (20:00)
[2018-04-09] VITALS (19 sets, daily range): BP systolic 124–157; BP diastolic 83–98; PULSE 76–95; RESP 19–30
[2018-04-09] MEDS: metroNIDAZOLE 500 MG TAB NGT SCH ×3 (06:02→21:20)
[2018-04-09] MEDS: MEROPENEM 500MG/50 ML (PMX) 50 ML IVPB SCH ×3 (06:03→21:51)
[2018-04-09] MEDS: PANTOPRAZOLE 40 MG INJ IV SCH ×2 (06:03→17:21)
--- NOTE | 2018-04-09 07:51 | PN ---
Date/Time of Note Date/Time of Note DATE: 04/09/18 TIME: 07:46 Assessment/Plan VTE Prophylaxis Risk score (from Ns)>0 risk: 8 SCD applied (from Ns): Yes Pharmacological prophylaxis: NA/contraindicated Pharm contraindication: bleeding Lines/Catheters IV Catheter Type (from Nrsg): PICC Line Central line still needed: Yes Urinary Cath still in place: Yes Reason Cath still needed: terminal illness/intractable pain Assessment/Plan Hospital Course 62 male with excessively bleeding gingival tissue and severe anemia 1. Severe acute on chronic anemia likely due to blood loss from #2 2. Excessive bleeding from gingival tissue 3. Chronic liver disease, alcohol related 4. Mild coagulopathy 5. Pancreatitis -lipid panel wnl -CBD 6mm, MRCP scheduled for today -monitor lipase and amylase and LFTs -lipase today has gone down from yesterday 6. Chronic kidney disease 7. Encephalopathy secondary to anoxic brain injury 8. H/o duodenal ulcer Plan: MRCP pending today Continue NPO x medications and no tube feeds Monitor lipase and amylase Monitor LFTs Bowel regimen Monitor HH and replace with PRBC as needed PPI BID Pt examined and plan of care discussed with Dr. Peña Result Diagram: 04/09/18 0606 04/09/18 0606 Results 24hrs Laboratory Tests Test 04/08/18 17:00 04/09/18 06:06 Stool Occult Blood NEGATIVE White Blood Count 6.6 Red Blood Count 3.22 L Hemoglobin 9.2 L Hematocrit 28.2 L Mean Corpuscular Volume 87.6 Mean Corpuscular Hemoglobin 28.6 L Mean Corpuscular Hemoglobin Concent 32.6 Red Cell Distribution Width 15.7 H Platelet Count 187 Mean Platelet Volume 10.6 H Immature Granulocytes % 0.500 H Neutrophils % 74.1 Lymphocytes % 7.2 L Monocytes % 15.1 H Eosinophils % 2.0 Basophils % 1.1 Nucleated Red Blood Cells % 0.0 Immature Granulocytes # 0.030 Neutrophils # 4.9 Lymphocytes # 0.5 L Monocytes # 1.0 H Eosinophils # 0.1 Basophils # 0.1 Nucleated Red Blood Cells # 0.0 Sodium Level 145 H Potassium Level 4.1 Chloride Level 117 H Carbon Dioxide Level 18 L Anion Gap 10 Blood Urea Nitrogen 26 H Creatinine 0.80 Est Glomerular Filtrat Rate mL/min > 60 Glucose Level 85 Calcium Level 8.2 L Phosphorus Level 2.5 Magnesium Level 1.9 Total Bilirubin 0.1 L Direct Bilirubin 0.00 Indirect Bilirubin 0.1 Aspartate Amino Transf (AST/SGOT) 58 H Alanine Aminotransferase (ALT/SGPT) 19 Alkaline Phosphatase 67 Total Protein 6.3 Albumin 2.7 L Amylase Level 475 H Lipase 2786 H Subjective 24 Hr Interval Summary Free Text/Dictation Bleeding from gingival tissue appears to have slowed down. No non verbal cues to pain when abd palpated. HGB stable. Hemodynamically stable. Exam/Review of Systems Vital Signs Vitals Vital Signs Date Temp Pulse Resp B/P (MAP) Pulse Ox O2 O2 Flow FiO2 Time Delivery Rate 04/09/18 78 21 99 05:31 04/09/18 98.5 137/93 04:00 (108) 04/09/18 30 03:13 04/09/18 Mechanical 00:00 Ventilator Intake and Output 04/08/18 04/08/18 04/09/18 1515:00 23:00 07:00 IntakeIntake Total 850 ml 350 ml 200 ml OutputOutput Total 630 ml BalanceBalance 850 ml -280 ml 200 ml Exam Eyes: PERRL ENMT: other (black old blood crusted on lips, less than yesterday, no active bleeding noted in mouth) Respiratory: diminished breath sounds Gastrointestinal: soft, other (No non verbal cues to pain during palpitation) Extremities: normal pulses Medications Medications Current Medications Acetaminophen (Tylenol Tab) 1,000 mg Q4 PRN PO MODERATE PAIN LEVEL 4-6 Last administered on 04/07/18at 12:14; Admin Dose 1,000 MG; Start 03/31/18 at 18:00 Acetaminophen (Tylenol Tab) 650 mg Q4 PRN GTB MILD PAIN LEVEL 1-3 Last administered on 04/08/18at 12:26; Admin Dose 650 MG; Start 03/31/18 at 18:00 Albuterol (Proventil 0.083% (Neb)) 2.5 mg Q3H PRN NEB WHEEZING AND SOB; Start 03/31/18 at 18:00 Albuterol (Proventil 0.083% (Neb)) 2.5 mg Q6 PRN NEB WHEEZING AND SOB; Start 03/31/18 at 18:00 Ascorbic Acid (Vitamin C) 500 mg DAILY GTB Last administered on 04/08/18at 08:56; Admin Dose 500 MG; Start 04/01/18 at 09:00 Bisacodyl (Dulcolax Supp) 10 mg DAILY PRN MA CONSTIPATION; Start 03/31/18 at 18:00 Multivit/Ca Carb/ B Cmplx/FA/Prenat (Sofy-Sandoval) 1 tab DAILY GTB Last administered on 04/08/18 08:56; Admin Dose 1 TAB; Start 04/01/18 at 09:00 Zinc Sulfate (Zinc Sulfate) 220 mg DAILY GTB Last administered on 04/08/18 08:56; Admin Dose 220 MG; Start 04/01/18 at 09:00 IV Flush (NS 3 ml) 3 ml PER PROTOCOL IV ; Start 03/31/18 at 18:30 Ondansetron HCl (Zofran Inj) 4 mg Q6H PRN IV NAUSEA AND/OR VOMITING; Start 03/31/18 at 18:30 Acetaminophen (Tylenol Tab) 650 mg Q6H PRN PO PAIN LEVEL 1-3 OR FEVER Last a dministered on 04/06/18at 03:55; Admin Dose 650 MG; Start 03/31/18 at 18:30 Acetaminophen (Tylenol Supp) 650 mg Q6H PRN MA PAIN LEVEL 1-3 OR FEVER Last administered on 04/02/18 20:38; Admin Dose 650 MG; Start 03/31/18 at 18:30 Docusate Sodium (Colace) 100 mg Q12H PRN PO CONSTIPATION; Start 03/31/18 at 18:30 Vancomycin HCl (Vanco Iv Per Pharmacy) VANCOMYCIN PER PHARMACY PER PROTOCOL XX ; Start 04/01/18 at 13:00 Alteplase, Recombinant (Cathflo (Activase)) 2 mg MAY REPEAT X1 PRN CATHETER IF CATHETER REMAINS OCCULUDED Last administered on 04/03/18 04:24; Admin Dose 2 MG; Start 04/01/18 at 21:00 Fluconazole 100 ml @ 100 mls/hr Q24H IVPB Last administered on 04/08/18 11:36; Admin Dose 100 MLS/HR; Start 04/02/18 at 12:00 Vancomycin HCl 250 ml @ 125 mls/hr Q24H IVPB Last administered on 04/08/18 08:57; Admin Dose 125 MLS/HR; Start 04/03/18 at 09:00 Collagenase (Santyl) 1 applic DAILY TOP Last administered on 04/08/18 08:55; Admin Dose 1 APPLIC; Start 04/03/18 at 12:00 Meropenem/Sodium Chloride 50 ml @ 100 mls/hr Q8 IVPB Last administered on 04/09/18 06:03; Admin Dose 100 MLS/HR; Start 04/04/18 at 22:00 Morphine Sulfate (morphine) 6 mg Q4H PRN GTB SEVERE PAIN LEVEL 6-10; Start 04/04/18 at 23:00 Lorazepam (Ativan) 2 mg Q4H PRN IV restless, agitation, anxiety Last administered on 04/08/18 10:05; Admin Dose 2 MG; Start 04/05/18 at 10:00 Metronidazole (Flagyl) 500 mg Q8 NGT Last administered on 04/09/18at 06:02; Admin Dose 500 MG; Start 04/06/18 at 14:00 Pantoprazole (Protonix Iv) 40 mg BID@06,18 IV Last administered on 04/09/18 06:03; Admin Dose 40 MG; Start 04/08/18 at 18:00 Polyethylene Glycol (Miralax) 17 gm DAILY GTB Last administered on 04/08/18 08:56; Admin Dose 17 GM; Start 04/08/18 at 09:00 Carvedilol (Coreg) 50 mg BID GTB Last administered on 04/08/18at 21:35; Admin Dose 50 MG; Start 04/08/18 at 21:00 Dextrose/Sodium Chloride 1,000 ml @ 40 mls/hr Q24H IV Last administered on 04/08/18 11:36; Admin Dose 40 MLS/HR; Start 04/08/18 at 11:30 Tobramycin Sulfate/Sodium Chloride (Joey Inhal) 300 mg BID RESP THERAPY NEB ; Start 04/09/18 at 09:00 QI CHRISTIANSON Apr 09, 2018 07:51
[2018-04-09] MEDS: TOBRAMYCIN/0.25NS 300 MG/5 ML INHAL NEB SCH ×2 (09:00→21:30)
[2018-04-09] MEDS: POLYETHYLENE GLYCOL 17 GM PACKET GTB SCH (09:07)
[2018-04-09] MEDS: VANCOMYCIN 1 GM 250 ML IVPB SCH (09:08)
[2018-04-09] MEDS: ZINC SULFATE 220 MG CAP GTB SCH (09:08)
[2018-04-09] MEDS: MULTIVIT/CA CARB/B CMPLX/FA TAB GTB SCH (09:09)
[2018-04-09] MEDS: ASCORBIC ACID 500 MG TAB GTB SCH (09:09)
[2018-04-09] MEDS: ACETAMINOPHEN 325 MG TAB GTB PRN (09:09)
[2018-04-09] MEDS: BALSAM PERU/CASTOR OIL 60 GM TUBE TOP SCH ×2 (09:10→21:21)
[2018-04-09] MEDS: COLLAGENASE 5 GM (UD JAR) TOP SCH (09:10)
[2018-04-09] MEDS: DEXTROSE 5%-0.45% NACL 1,000 ML IV SCH (11:13)
--- NOTE | 2018-04-09 11:14 | EEG ---
EEG NOTE Report Details DATE OF TEST: 04/08/18 HISTORY: The patient is a 62-year-old M who presents with altered mental status. This EEG is requested to rule out nonconvulsive status epilepticus. SEDATION: None. CONDITIONS OF RECORDING: This EEG was recorded digitally on the Anne Fogarty machine, using the International 10-20 System of electrodes plus anterior temporals and [place]. STATES SAMPLED: Lethargic. FINDINGS: The background is grossly continuous and symmetric... predominated by polymorphic delta activity.. The normal [id number] frequency-amplitude gradient was absent. Photic stimulation does not elicit any definite driving responses or epileptiform discharges. Hyperventilation was not performed. No asymmetries, focal abnormalities or epileptiform discharges were seen. IMPRESSION: Abnormal electroencephalogram due to: severe diffuse slowing. COMMENT: The slowing of the background indicates severe, diffuse cortical dysfunction of nonspecific etiology. Clinical correlation is advised. MANDO PINO Apr 09, 2018 11:14
--- NOTE | 2018-04-09 12:34 | PN ---
Date/Time of Note Date/Time of Note DATE: 04/09/18 TIME: 12:31 Assessment/Plan VTE Prophylaxis Risk score (from Ns)>0 risk: 8 SCD applied (from [facility] [place]): Yes Pharmacological prophylaxis: NA/contraindicated Pharm contraindication: low risk/ambulating Lines/Catheters IV Catheter Type (from [facility]): PICC Line Central line still needed: Yes Urinary Cath still in place: Yes Reason Cath still needed: urinary retention Assessment/Plan Hospital Course 62 y/o with # Oral gingival bleeding likely due to dentures, seen by ENT s/p endoscopy # Sepsis with Fevers with hx Pneumonia +UTI and ? Pancreatitis +multiple wounds, ucx+ lisa, wound cx+ MRSA/ pseudomonas, +resp culture +pseudomonas # Blood loss anemia due to oral gingival bleeding # VDRF # CKD with worsening renal failure>resolved # Metabolic acidosis #DILATED CARDIOMYOPATHY # HX ALCOHOL ABUSE # Multiple wounds > decub # Pancreatitis with elevated Lipase # Enterocoltiis on CT # AMS due to Metabolic encephalopathy with . Possible subacute infarct in the left cerebellar hemisphere and cerebellar peduncle Plan - NPO per GI - mrcpt today - hold midodrine - cwcoreg - iv abx with vanco/meropenam/fllagyl, added tobramycin - no blood thinners due to anemia - GI prophylaxsis - monitor oral bleeding - Pending neuro recs - PT/OT/Speech Spoke to at bedside Result Diagram: 04/09/18 0606 04/09/18 0606 Results 24hrs Laboratory Tests Test 04/08/18 17:00 04/09/18 06:06 Stool Occult Blood NEGATIVE White Blood Count 6.6 Red Blood Count 3.22 L Hemoglobin 9.2 L Hematocrit 28.2 L Mean Corpuscular Volume 87.6 Mean Corpuscular Hemoglobin 28.6 L Mean Corpuscular Hemoglobin Concent 32.6 Red Cell Distribution Width 15.7 H Platelet Count 187 Mean Platelet Volume 10.6 H Immature Granulocytes % 0.500 H Neutrophils % 74.1 Lymphocytes % 7.2 L Monocytes % 15.1 H Eosinophils % 2.0 Basophils % 1.1 Nucleated Red Blood Cells % 0.0 Immature Granulocytes # 0.030 Neutrophils # 4.9 Lymphocytes # 0.5 L Monocytes # 1.0 H Eosinophils # 0.1 Basophils # 0.1 Nucleated Red Blood Cells # 0.0 Sodium Level 145 H Potassium Level 4.1 Chloride Level 117 H Carbon Dioxide Level 18 L Anion Gap 10 Blood Urea Nitrogen 26 H Creatinine 0.80 Est Glomerular Filtrat Rate mL/min > 60 Glucose Level 85 Calcium Level 8.2 L Phosphorus Level 2.5 Magnesium Level 1.9 Total Bilirubin 0.1 L Direct Bilirubin 0.00 Indirect Bilirubin 0.1 Aspartate Amino Transf (AST/SGOT) 58 H Alanine Aminotransferase (ALT/SGPT) 19 Alkaline Phosphatase 67 Total Protein 6.3 Albumin 2.7 L Amylase Level 475 H Lipase 2786 H Subjective 24 Hr Interval Summary Free Text/Dictation MRCP pending today Lipase elevated, feeding held Pt tries to follows some commands low grade fevers Exam/Review of Systems Vital Signs Vitals Vital Signs Date Temp Pulse Resp B/P (MAP) Pulse Ox O2 O2 Flow FiO2 Time Delivery Rate 04/09/18 91 30 96 30 11:35 04/09/18 Nasal 08:45 Cannula 04/09/18 100.2 140/98 07:48 (112) Intake and Output 04/08/18 04/08/18 04/09/18 1515:00 23:00 07:00 IntakeIntake Total 850 ml 350 ml 200 ml OutputOutput Total 630 ml BalanceBalance 850 ml -280 ml 200 ml Exam onstitutional:Well-developed. Well-nourished., tachpnic, opens eyes, tries to follows commands HEENT:Normocephalic. Atraumatic.Pupils were equal round reactive to light. Significant amount of bright red blood present within the oropharynx. Chapped lips that were actively bleeding..+old dried blood around lips Neck: . Tracheostomy site clean dry and intact Respiratory: lungs clear Cardiovascular: tachycardic GI: Abdomen was soft. Nontender. Non Distended. No pulsatile abdominal masses or bruits. No rebound. No guarding. Bowel sounds were present and normal. Muscle skeletal: Muscle atrophy of the bilateral lower extremities. Patient has limited range of motion of the right upper and lower extremity but was able to flex extend at the elbow and lift his right upper extremity against gravity. Patient has no movement of the bilateral lower extremities multiple wounds rt PICC Medications Medications Current Medications Acetaminophen (Tylenol Tab) 1,000 mg Q4 PRN PO MODERATE PAIN LEVEL 4-6 Last ad ministered on 04/07/18at 12:14; Admin Dose 1,000 MG; Start 1/6/19 at 18:00 Acetaminophen (Tylenol Tab) 650 mg Q4 PRN GTB MILD PAIN LEVEL 1-3 Last administered on 04/09/18at 09:09; Admin Dose 650 MG; Start 03/31/18 at 18:00 Albuterol (Proventil 0.083% (Neb)) 2.5 mg Q3H PRN NEB WHEEZING AND SOB; Start 03/31/18 at 18:00 Albuterol (Proventil 0.083% (Neb)) 2.5 mg Q6 PRN NEB WHEEZING AND SOB; Start 03/31/18 at 18:00 Ascorbic Acid (Vitamin C) 500 mg DAILY GTB Last administered on 04/09/18at 09:09; Admin Dose 500 MG; Start 04/01/18 at 09:00 Bisacodyl (Dulcolax Supp) 10 mg DAILY PRN [place] CONSTIPATION; Start 03/31/18 at 18:00 Multivit/Ca Carb/ B Cmplx/FA/Prenat (Sofy-Sandoval) 1 tab DAILY GTB Last administer ed on 04/09/18at 09:09; Admin Dose 1 TAB; Start 04/01/18 at 09:00 Zinc Sulfate (Zinc Sulfate) 220 mg DAILY GTB Last administered on 04/09/18at 09:08; Admin Dose 220 MG; Start 04/01/18 at 09:00 IV Flush (NS 3 ml) 3 ml PER PROTOCOL IV ; Start 03/31/18 at 18:30 Ondansetron HCl (Zofran Inj) 4 mg Q6H PRN IV NAUSEA AND/OR VOMITING; Start 03/31/18 at 18:30 Acetaminophen (Tylenol Tab) 650 mg Q6H PRN PO PAIN LEVEL 1-3 OR FEVER Last administered on 04/06/18at 03:55; Admin Dose 650 MG; Start 03/31/18 at 18:30 Acetaminophen (Tylenol Supp) 650 mg Q6H PRN GA PAIN LEVEL 1-3 OR FEVER Last administered on 04/02/18at 20:38; Admin Dose 650 MG; Start 03/31/18 at 18:30 Docusate Sodium (Colace) 100 mg Q12H PRN PO CONSTIPATION; Start 03/31/18 at 18:30 Vancomycin HCl (Vanco Iv Per Pharmacy) VANCOMYCIN PER PHARMACY PER PROTOCOL XX ; Start 04/01/18 at 13:00 Alteplase, Recombinant (Cathflo (Activase)) 2 mg MAY REPEAT X1 PRN CATHETER IF CATHETER REMAINS OCCULUDED Last administered on 04/03/18 04:24; Admin Dose 2 MG; Start 04/01/18 at 21:00 Fluconazole 100 ml @ 100 mls/hr Q24H IVPB Last administered on 04/08/18 11:36; Admin Dose 100 MLS/HR; Start 04/02/18 at 12:00 Vancomycin HCl 250 ml @ 125 mls/hr Q24H IVPB Last administered on 04/09/18 09:08; Admin Dose 125 MLS/HR; Start 04/03/18 at 09:00 Collagenase (Santyl) 1 applic DAILY TOP Last administered on 04/09/18 09:10; Admin Dose 1 APPLIC; Start 04/03/18 at 12:00 Meropenem/Sodium Chloride 50 ml @ 100 mls/hr Q8 IVPB Last administered on 04/09/18 06:03; Admin Dose 100 MLS/HR; Start 04/04/18 at 22:00 Morphine Sulfate (morphine) 6 mg Q4H PRN GTB SEVERE PAIN LEVEL 6-10; Start 04/04/18 at 23:00 Lorazepam (Ativan) 2 mg Q4H PRN IV restless, agitation, anxiety Last administered on 04/08/18at 10:05; Admin Dose 2 MG; Start 04/05/18 at 10:00 Metronidazole (Flagyl) 500 mg Q8 NGT Last administered on 04/09/18 06:02; Admin Dose 500 MG; Start 04/06/18 at 14:00 Pantoprazole (Protonix Iv) 40 mg BID@06,18 IV Last administered on 04/09/18 06:03; Admin Dose 40 MG; Start 04/08/18 at 18:00 Polyethylene Glycol (Miralax) 17 gm DAILY GTB Last administered on 04/09/18 09:07; Admin Dose 17 GM; Start 04/08/18 at 09:00 Carvedilol (Coreg) 50 mg BID GTB Last administered on 04/09/18 09:09; Admin Dose 50 MG; Start 04/08/18 at 21:00 Dextrose/Sodium Chloride 1,000 ml @ 40 mls/hr Q24H IV Last administered on 04/08/18at 11:36; Admin Dose 40 MLS/HR; Start 04/08/18 at 11:30 Tobramycin Sulfate/Sodium Chloride (Joey Inhal) 300 mg BID RESP THERAPY NEB Last administered on 04/09/18at 09:00; Admin Dose 300 MG; Start 04/09/18 at 09:00 TAMARA GRAJEDA MD Apr 09, 2018 12:34
[2018-04-09] MEDS: FLUCONAZOLE 200 MG (PMX) 100 ML IVPB SCH (12:51)
--- NOTE | 2018-04-09 13:27 | CONS ---
Assessment/Plan Assessment/Plan Hospital Course 62 M c/ Hx of methamphetamine/ETOH abuse c/b cirrhosis and dilated cardiomyopathy... and other comorbidities, admitted for evaluation of gingival bleeding..and fevers.... Neurology is consulted to evaluate chronic encephalopathy and assess prognosis for meaningful neurologic recovery.. The patient and family are unable to contribute a Hx; EMR documentation is relatively sparse... D/C summary from his next most recent admission in 2016 notes an admission for hypoxic respiratory failure and severe ETOH w/d...which saw him discharged to home following extubation and clinical improvement... Interval Hx is limited... It is, thus, currently impossible to provide any meaningful opinion regarding his chronic neurologic disease.. As an aside, he likely today has a superimposed acute toxic-metabolic on chronic encephalopathy.. Head CT shows only mild volume loss and some small vessel ischemic disease.. MRI brain is concerning for a subacute cerebellar infarction, though it is limited by motion.. EEG is notable for severe diffuse slowing but is without epileptiform activity. P: Clarify neurologic Hx when able Start asa for secondary stroke prevention when medically able (ie severe anemia and gingival hemorrhage are solved..); LDL is at goal... Continued medical management and supportive care per primary Limit sedating medications where possible PT/OT/ST as able Will follow Result Diagram: 04/09/18 0606 04/09/18 0606 Results 24hrs Laboratory Tests Test 04/08/18 17:00 04/09/18 06:06 Stool Occult Blood NEGATIVE White Blood Count 6.6 Red Blood Count 3.22 L Hemoglobin 9.2 L Hematocrit 28.2 L Mean Corpuscular Volume 87.6 Mean Corpuscular Hemoglobin 28.6 L Mean Corpuscular Hemoglobin Concent 32.6 Red Cell Distribution Width 15.7 H Platelet Count 187 Mean Platelet Volume 10.6 H Immature Granulocytes % 0.500 H Neutrophils % 74.1 Lymphocytes % 7.2 L Monocytes % 15.1 H Eosinophils % 2.0 Basophils % 1.1 Nucleated Red Blood Cells % 0.0 Immature Granulocytes # 0.030 Neutrophils # 4.9 Lymphocytes # 0.5 L Monocytes # 1.0 H Eosinophils # 0.1 Basophils # 0.1 Nucleated Red Blood Cells # 0.0 Sodium Level 145 H Potassium Level 4.1 Chloride Level 117 H Carbon Dioxide Level 18 L Anion Gap 10 Blood Urea Nitrogen 26 H Creatinine 0.80 Est Glomerular Filtrat Rate mL/min > 60 Glucose Level 85 Calcium Level 8.2 L Phosphorus Level 2.5 Magnesium Level 1.9 Total Bilirubin 0.1 L Direct Bilirubin 0.00 Indirect Bilirubin 0.1 Aspartate Amino Transf (AST/SGOT) 58 H Alanine Aminotransferase (ALT/SGPT) 19 Alkaline Phosphatase 67 Total Protein 6.3 Albumin 2.7 L Amylase Level 475 H Lipase 2786 H Consultation Date/Type/Reason Admit Date/Time Mar 31, 2018 at 17:58 Type of Consult Neurology Requesting Provider: TAMARA GRAJEDA MD Date/Time of Note DATE: 04/09/18 TIME: 13:27 24 HR Interval Summary Free Text/Dictation Continues telemetry monitoring. No acute events or changes in pt condition reported today. Exam Vital Signs Vitals Vital Signs Date Temp Pulse Resp B/P (MAP) Pulse Ox O2 O2 Flow FiO2 Time Delivery Rate 04/09/18 30 12:00 04/09/18 91 30 96 11:35 04/09/18 Nasal 08:45 Cannula 04/09/18 100.2 140/98 07:48 (112) Intake and Output 04/08/18 04/08/18 04/09/18 1515:00 23:00 07:00 IntakeIntake Total 850 ml 350 ml 200 ml OutputOutput Total 630 ml BalanceBalance 850 ml -280 ml 200 ml Exam PE: Gen Appearance: No Apparent Distress; dried blood in mouth... HEENT: Trach Cardiovascular: Regular rate Respiratory: Tachypneic Abdomen: Soft Extremities: Dry NE: The patient was awake though nonverbal. Unable to fix or follow commands. Cranial nerve examination was limited by mental status. Pupils were equal and reactive to light. There was no afferent pupillary defect. Funduscopic examination was limited. Face was grossly symmetric, w/ present corneal and cough reflexes. Tone was normal. Muscle bulk was reduced. I did not see fasciculations. The patient was moving his extremities spontaneously, BUE symmetrically and BLE (L<R) Coordination and gait testing was limited by mental status. Arm and leg reflexes were within normal limits and symmetric. Maguire's sign was absent. Plantar responses were flexor. ANURAG PRESSLEY NP Apr 09, 2018 13:27
--- NOTE | 2018-04-09 14:08 | CONS ---
Date/Time of Note Date/Time of Note DATE: 04/09/18 TIME: 14:08 Consult Date/Type/Reason Admit Date/Time Mar 31, 2018 at 17:58 Initial Consult Date 04/02/18 Type of Consultation: Pulmonary Requesting Provider: TAMARA GRAJEDA MD Subjective MRCP today Objective Vital Signs Date Temp Pulse Resp B/P (MAP) Pulse Ox O2 O2 Flow FiO2 Time Delivery Rate 04/09/18 82 27 100 30 13:30 04/09/18 99.1 124/83 Mechanical 12:00 (97) Ventilator Intake and Output 04/08/18 04/08/18 04/09/18 1414:59 22:59 06:59 IntakeIntake Total 850 ml 350 ml 200 ml OutputOutput Total 630 ml BalanceBalance 850 ml -280 ml 200 ml Exam PHYSICAL EXAMINATION GENERAL: Chronically ill-appearing gentleman on mechanical ventilation VITAL SIGNS: see below. HEENT: Pupils equal, round, and reactive to light. Tracheostomy site clean and intact. CARDIAC: S1, S2, 1/6 systolic ejection murmur CHEST: Diminished air entry bilaterally. ABDOMEN: Mildly distended. Bowel sounds present no guarding or rebound EXTREMITIES: No cyanosis, clubbing edema +1 NEUROLOGIC: Generalized weakness Results/Medications Result Diagram: 04/09/18 0606 04/09/18 0606 Results 24 hrs Laboratory Tests Test 04/08/18 17:00 04/09/18 06:06 Stool Occult Blood NEGATIVE White Blood Count 6.6 Red Blood Count 3.22 L Hemoglobin 9.2 L Hematocrit 28.2 L Mean Corpuscular Volume 87.6 Mean Corpuscular Hemoglobin 28.6 L Mean Corpuscular Hemoglobin Concent 32.6 Red Cell Distribution Width 15.7 H Platelet Count 187 Mean Platelet Volume 10.6 H Immature Granulocytes % 0.500 H Neutrophils % 74.1 Lymphocytes % 7.2 L Monocytes % 15.1 H Eosinophils % 2.0 Basophils % 1.1 Nucleated Red Blood Cells % 0.0 Immature Granulocytes # 0.030 Neutrophils # 4.9 Lymphocytes # 0.5 L Monocytes # 1.0 H Eosinophils # 0.1 Basophils # 0.1 Nucleated Red Blood Cells # 0.0 Sodium Level 145 H Potassium Level 4.1 Chloride Level 117 H Carbon Dioxide Level 18 L Anion Gap 10 Blood Urea Nitrogen 26 H Creatinine 0.80 Est Glomerular Filtrat Rate mL/min > 60 Glucose Level 85 Calcium Level 8.2 L Phosphorus Level 2.5 Magnesium Level 1.9 Total Bilirubin 0.1 L Direct Bilirubin 0.00 Indirect Bilirubin 0.1 Aspartate Amino Transf (AST/SGOT) 58 H Alanine Aminotransferase (ALT/SGPT) 19 Alkaline Phosphatase 67 Total Protein 6.3 Albumin 2.7 L Amylase Level 475 H Lipase 2786 H Medications Current Medications Acetaminophen (Tylenol Tab) 1,000 mg Q4 PRN PO MODERATE PAIN LEVEL 4-6 Last administered on 04/07/18at 12:14; Admin Dose 1,000 MG; Start 03/31/18 at 18:00 Acetaminophen (Tylenol Tab) 650 mg Q4 PRN GTB MILD PAIN LEVEL 1-3 Last administered on 04/09/18 09:09; Admin Dose 650 MG; Start 03/31/18 at 18:00 Albuterol (Proventil 0.083% (Neb)) 2.5 mg Q3H PRN NEB WHEEZING AND SOB; Start 03/31/18 at 18:00 Albuterol (Proventil 0.083% (Neb)) 2.5 mg Q6 PRN NEB WHEEZING AND SOB; Start 03/31/18 at 18:00 Ascorbic Acid (Vitamin C) 500 mg DAILY GTB Last administered on 04/09/18 09:09; Admin Dose 500 MG; Start 04/01/18 at 09:00 Bisacodyl (Dulcolax Supp) 10 mg DAILY PRN [place] CONSTIPATION; Start 03/31/18 at 18:00 Multivit/Ca Carb/ B Cmplx/FA/Prenat (Sofy-Sandoval) 1 tab DAILY GTB Last administered on 04/09/18at 09:09; Admin Dose 1 TAB; Start 04/01/18 at 09:00 Zinc Sulfate (Zinc Sulfate) 220 mg DAILY GTB Last administered on 04/09/18 09:08; Admin Dose 220 MG; Start 04/01/18 at 09:00 IV Flush (NS 3 ml) 3 ml PER PROTOCOL IV ; Start 03/31/18 at 18:30 Ondansetron HCl (Zofran Inj) 4 mg Q6H PRN IV NAUSEA AND/OR VOMITING; Start 03/31/18 at 18:30 Acetaminophen (Tylenol Tab) 650 mg Q6H PRN PO PAIN LEVEL 1-3 OR FEVER Last administered on 04/06/18 03:55; Admin Dose 650 MG; Start 03/31/18 at 18:30 Acetaminophen (Tylenol Supp) 650 mg Q6H PRN [place] PAIN LEVEL 1-3 OR FEVER Last administered on 04/02/18at 20:38; Admin Dose 650 MG; Start 03/31/18 at 18:30 Docusate Sodium (Colace) 100 mg Q12H PRN PO CONSTIPATION; Start 03/31/18 at 18:30 Vancomycin HCl (Vanco Iv Per Pharmacy) VANCOMYCIN PER PHARMACY PER PROTOCOL XX ; Start 04/01/18 at 13:00 Alteplase, Recombinant (Cathflo (Activase)) 2 mg MAY REPEAT X1 PRN CATHETER IF CATHETER REMAINS OCCULUDED Last administered on 04/03/18 04:24; Admin Dose 2 MG; Start 04/01/18 at 21:00 Fluconazole 100 ml @ 100 mls/hr Q24H IVPB Last administered on 04/09/18 12:51; Admin Dose 100 MLS/HR; Start 04/02/18 at 12:00 Vancomycin HCl 250 ml @ 125 mls/hr Q24H IVPB Last administered on 04/09/18 09:08; Admin Dose 125 MLS/HR; Start 04/03/18 at 09:00 Collagenase (Santyl) 1 applic DAILY TOP Last administered on 04/09/18 09:10; Admin Dose 1 APPLIC; Start 04/03/18 at 12:00 Meropenem/Sodium Chloride 50 ml @ 100 mls/hr Q8 IVPB Last administered on 04/09/18 06:03; Admin Dose 100 MLS/HR; Start 04/04/18 at 22:00 Morphine Sulfate (morphine) 6 mg Q4H PRN GTB SEVERE PAIN LEVEL 6-10; Start 04/04/18 at 23:00 Lorazepam (Ativan) 2 mg Q4H PRN IV restless, agitation, anxiety Last administered on 04/08/18 10:05; Admin Dose 2 MG; Start 04/05/18 at 10:00 Metronidazole (Flagyl) 500 mg Q8 NGT Last administered on 04/09/18 06:02; Admin Dose 500 MG; Start 04/06/18 at 14:00 Pantoprazole (Protonix Iv) 40 mg BID@06,18 IV Last administered on 04/09/18at 06:03; Admin Dose 40 MG; Start 04/08/18 at 18:00 Polyethylene Glycol (Miralax) 17 gm DAILY GTB Last administered on 04/09/18at 09:07; Admin Dose 17 GM; Start 04/08/18 at 09:00 Carvedilol (Coreg) 50 mg BID GTB Last administered on 04/09/18at 09:09; Admin Dose 50 MG; Start 04/08/18 at 21:00 Dextrose/Sodium Chloride 1,000 ml @ 40 mls/hr Q24H IV Last administered on 04/08/18at 11:36; Admin Dose 40 MLS/HR; Start 04/08/18 at 11:30 Tobramycin Sulfate/Sodium Chloride (Joey Inhal) 300 mg BID RESP THERAPY NEB Last administered on 04/09/18at 09:00; Admin Dose 300 MG; Start 04/09/18 at 09:00 Miscellaneous Information (*Rx Drug Level Order Reminder*) VANCOMYCIN TROUGH AT 0800 ONCE ONCE XX ; Start 04/10/18 at 08:00; Stop 04/10/18 at 08:01 Assessment/Plan Chief Complaint/Hosp Course Assessment 1. Vent dependent respiratory failure 2. Anemia from upper airway bleed 3. Chronic encephalopathy 4. Dysphagia with G-tube Plan 1. Monitor H&H consider infusion of another unit 2. Continue mechanical ventilation 3. NPO, MRCP pending. 4. DVT and GI prophylaxis SIRIA PISANO MD, [facility] Apr 09, 2018 14:08
--- NOTE | 2018-04-09 15:33 | CONS ---
Date/Time of Note Date/Time of Note DATE: 04/09/18 TIME: 15:32 Assessment/Plan Assessment/Plan Hospital Course No acute changes overnight, looks comfortable, afebrile Microbiology: Blood cultures remain negative. Urine culture positive for Breanne albicans. Endotracheal aspirate growing gram-negative rods. Sacral w ound culture growing MRSA, Breanne albicans, enterococcus, gram-negative rods. Nares swab positive for MRSA CT of the abdomen and pelvis revealed questionable enterocolitis. Cholelithiasis. Tiny bilateral pleural effusions with bibasilar airspace disease. Indwelling: Peg, Schwartz, right upper extremity PICC line, tracheostomy Antimicrobials: Flagyl meropenem vancomycin fluconazole, tobramycin inhalation Physical examination: Chronically ill-appearing elderly man who is noncommunicative in no distress. Head atraumatic normocephalic sclera nonicteric neck is supple tracheostomy present chest rise symmetrical breath sounds diminished bases heart: S1-S2. Abdomen soft bowel sounds present. Extremities without cyanosis. Skin: Patient has multiple pressure sores he has a dry blood on the right lower lip Assessment: 1. Sepsis with ongoing fevers 2. Acute pancreatitis, CT of the abdomen revealed no abscess, no pseudocyst, Lipase 2786 today 3. Breanne albicans UTI 4. History of cardiomyopathy 5. Chronic respiratory failure 6. Ongoing gingival bleeding, s/p ENT eval 7. Sacral decub 8. MRSA nares colonization 9. Possible enterocolitis Plan: Clinically unchanged, continue antibiotics, pending procalcitonin level Result Diagram: 04/09/18 0606 04/09/18 0606 Results 24hrs Laboratory Tests Test 04/08/18 17:00 04/09/18 06:06 Stool Occult Blood NEGATIVE White Blood Count 6.6 Red Blood Count 3.22 L Hemoglobin 9.2 L Hematocrit 28.2 L Mean Corpuscular Volume 87.6 Mean Corpuscular Hemoglobin 28.6 L Mean Corpuscular Hemoglobin Concent 32.6 Red Cell Distribution Width 15.7 H Platelet Count 187 Mean Platelet Volume 10.6 H Immature Granulocytes % 0.500 H Neutrophils % 74.1 Lymphocytes % 7.2 L Monocytes % 15.1 H Eosinophils % 2.0 Basophils % 1.1 Nucleated Red Blood Cells % 0.0 Immature Granulocytes # 0.030 Neutrophils # 4.9 Lymphocytes # 0.5 L Monocytes # 1.0 H Eosinophils # 0.1 Basophils # 0.1 Nucleated Red Blood Cells # 0.0 Sodium Level 145 H Potassium Level 4.1 Chloride Level 117 H Carbon Dioxide Level 18 L Anion Gap 10 Blood Urea Nitrogen 26 H Creatinine 0.80 Est Glomerular Filtrat Rate mL/min > 60 Glucose Level 85 Calcium Level 8.2 L Phosphorus Level 2.5 Magnesium Level 1.9 Total Bilirubin 0.1 L Direct Bilirubin 0.00 Indirect Bilirubin 0.1 Aspartate Amino Transf (AST/SGOT) 58 H Alanine Aminotransferase (ALT/SGPT) 19 Alkaline Phosphatase 67 Total Protein 6.3 Albumin 2.7 L Amylase Level 475 H Lipase 2786 H Consultation Date/Type/Reason Admit Date/Time Mar 31, 2018 at 17:58 Initial Consult Date 04/02/18 Type of Consult id Requesting Provider: TAMARA GRAJEDA MD Exam/Review of Systems Vital Signs Vitals Vital Signs Date Temp Pulse Resp B/P (MAP) Pulse Ox O2 O2 Flow FiO2 Time Delivery Rate 04/09/18 77 25 100 30 15:23 04/09/18 99.1 124/83 Mechanical 12:00 (97) Ventilator Intake and Output 04/08/18 04/08/18 04/09/18 1515:00 23:00 07:00 IntakeIntake Total 850 ml 350 ml 200 ml OutputOutput Total 630 ml BalanceBalance 850 ml -280 ml 200 ml Medications Medications Current Medications Acetaminophen (Tylenol Tab) 1,000 mg Q4 PRN PO MODERATE PAIN LEVEL 4-6 Last administered on 04/07/18at 12:14; Admin Dose 1,000 MG; Start 03/31/18 at 18:00 Acetaminophen (Tylenol Tab) 650 mg Q4 PRN GTB MILD PAIN LEVEL 1-3 Last administered on 04/09/18at 09:09; Admin Dose 650 MG; Start 03/31/18 at 18:00 Albuterol (Proventil 0.083% (Neb)) 2.5 mg Q3H PRN NEB WHEEZING AND SOB; Start 03/31/18 at 18:00 Albuterol (Proventil 0.083% (Neb)) 2.5 mg Q6 PRN NEB WHEEZING AND SOB; Start 03/31/18 at 18:00 Ascorbic Acid (Vitamin C) 500 mg DAILY GTB Last administered on 04/09/18at 09:09; Admin Dose 500 MG; Start 04/01/18 at 09:00 Bisacodyl (Dulcolax Supp) 10 mg DAILY PRN [place] CONSTIPATION; Start 03/31/18 at 18:00 Multivit/Ca Carb/ B Cmplx/FA/Prenat (Sofy-Sandoval) 1 tab DAILY GTB Last administered on 04/09/18 09:09; Admin Dose 1 TAB; Start 04/01/18 at 09:00 Zinc Sulfate (Zinc Sulfate) 220 mg DAILY GTB Last administered on 04/09/18at 09:08; Admin Dose 220 MG; Start 04/01/18 at 09:00 IV Flush (NS 3 ml) 3 ml PER PROTOCOL IV ; Start 03/31/18 at 18:30 Ondansetron HCl (Zofran Inj) 4 mg Q6H PRN IV NAUSEA AND/OR VOMITING; Start 03/31/18 at 18:30 Acetaminophen (Tylenol Tab) 650 mg Q6H PRN PO PAIN LEVEL 1-3 OR FEVER Last administered on 04/06/18at 03:55; Admin Dose 650 MG; Start 03/31/18 at 18:30 Acetaminophen (Tylenol Supp) 650 mg Q6H PRN [place] PAIN LEVEL 1-3 OR FEVER Last administered on 04/02/18at 20:38; Admin Dose 650 MG; Start 03/31/18 at 18:30 Docusate Sodium (Colace) 100 mg Q12H PRN PO CONSTIPATION; Start 03/31/18 at 18:30 Vancomycin HCl (Vanco Iv Per Pharmacy) VANCOMYCIN PER PHARMACY PER PROTOCOL XX ; Start 04/01/18 at 13:00 Alteplase, Recombinant (Cathflo (Activase)) 2 mg MAY REPEAT X1 PRN CATHETER IF CATHETER REMAINS OCCULUDED Last administered on 04/03/18at 04:24; Admin Dose 2 MG; Start 04/01/18 at 21:00 Fluconazole 100 ml @ 100 mls/hr Q24H IVPB Last administered on 04/09/18at 12:51; Admin Dose 100 MLS/HR; Start 04/02/18 at 12:00 Vancomycin HCl 250 ml @ 125 mls/hr Q24H IVPB Last administered on 04/09/18at 09:08; Admin Dose 125 MLS/HR; Start 04/03/18 at 09:00 Collagenase (Santyl) 1 applic DAILY TOP Last administered on 04/09/18 09:10; Admin Dose 1 APPLIC; Start 04/03/18 at 12:00 Meropenem/Sodium Chloride 50 ml @ 100 mls/hr Q8 IVPB Last administered on 04/09/18 14:08; Admin Dose 100 MLS/HR; Start 04/04/18 at 22:00 Morphine Sulfate (morphine) 6 mg Q4H PRN GTB SEVERE PAIN LEVEL 6-10; Start 04/04/18 at 23:00 Lorazepam (Ativan) 2 mg Q4H PRN IV restless, agitation, anxiety Last administered on 04/08/18at 10:05; Admin Dose 2 MG; Start 04/05/18 at 10:00 Metronidazole (Flagyl) 500 mg Q8 NGT Last administered on 04/09/18 14:08; Admin Dose 500 MG; Start 04/06/18 at 14:00 Pantoprazole (Protonix Iv) 40 mg BID@06,18 IV Last administered on 04/09/18 06:03; Admin Dose 40 MG; Start 04/08/18 at 18:00 Polyethylene Glycol (Miralax) 17 gm DAILY GTB Last administered on 04/09/18 09:07; Admin Dose 17 GM; Start 04/08/18 at 09:00 Carvedilol (Coreg) 50 mg BID GTB Last administered on 04/09/18 09:09; Admin Dose 50 MG; Start 04/08/18 at 21:00 Dextrose/Sodium Chloride 1,000 ml @ 40 mls/hr Q24H IV Last administered on 04/08/18at 11:36; Admin Dose 40 MLS/HR; Start 04/08/18 at 11:30 Tobramycin Sulfate/Sodium Chloride (Joey Inhal) 300 mg BID RESP THERAPY NEB Last administered on 04/09/18 09:00; Admin Dose 300 MG; Start 04/09/18 at 09:00 Miscellaneous Information (*Rx Drug Level Order Reminder*) VANCOMYCIN TROUGH AT 0800 ONCE ONCE XX ; Start 04/10/18 at 08:00; Stop 04/10/18 at 08:01 RENÉ GARCIA NP Apr 09, 2018 15:33
[2018-04-10] VITALS (24 sets, daily range): BP systolic 114–156; BP diastolic 77–104; PULSE 57–93; RESP 14–31
[2018-04-10] MEDS ORDERED: VITAMIN A & D 5 GM OINT PACKET TOP ONE ×2 (05:09→20:41)
[2018-04-10] MEDS: metroNIDAZOLE 500 MG TAB NGT SCH ×3 (05:11→21:28)
[2018-04-10] MEDS: PANTOPRAZOLE 40 MG INJ IV SCH ×2 (05:11→18:26)
[2018-04-10] MEDS: DEXTROSE 5%-0.45% NACL 1,000 ML IV SCH ×2 (05:11→19:01)
[2018-04-10] MEDS: MEROPENEM 500MG/50 ML (PMX) 50 ML IVPB SCH ×3 (05:11→21:29)
[2018-04-10] MEDS: TOBRAMYCIN/0.25NS 300 MG/5 ML INHAL NEB SCH ×2 (08:18→20:00)
[2018-04-10] MEDS: POLYETHYLENE GLYCOL 17 GM PACKET GTB SCH ×2 (09:00→09:29)
[2018-04-10] MEDS: ASCORBIC ACID 500 MG TAB GTB SCH (09:29)
[2018-04-10] MEDS: COLLAGENASE 5 GM (UD JAR) TOP SCH (09:29)
[2018-04-10] MEDS: ZINC SULFATE 220 MG CAP GTB SCH (09:29)
[2018-04-10] MEDS: MULTIVIT/CA CARB/B CMPLX/FA TAB GTB SCH (09:29)
[2018-04-10] MEDS: VANCOMYCIN 1 GM 250 ML IVPB SCH (09:30)
[2018-04-10] MEDS: BALSAM PERU/CASTOR OIL 60 GM TUBE TOP SCH ×2 (09:31→21:29)
--- NOTE | 2018-04-10 10:02 | CONS ---
Date/Time of Note Date/Time of Note DATE: 04/10/18 TIME: 09:26 Assessment/Plan Assessment/Plan Hospital Course a/p hyperamylasemia,drifting down, benign abdomen nl lft's except minimal ast elevation US: CBD 6 mm, gb stones MRCP pending Result Diagram: 04/10/18 0524 04/10/18 0524 Results 24hrs Laboratory Tests Test 04/10/18 05:24 04/10/18 07:53 White Blood Count 7.0 Red Blood Count 3.35 L Hemoglobin 9.4 L Hematocrit 29.2 L Mean Corpuscular Volume 87.2 Mean Corpuscular Hemoglobin 28.1 L Mean Corpuscular Hemoglobin Concent 32.2 Red Cell Distribution Width 15.5 H Platelet Count 203 Mean Platelet Volume 10.5 H Immature Granulocytes % 0.600 H Neutrophils % 76.3 Lymphocytes % 6.1 L Monocytes % 14.5 H Eosinophils % 1.4 Basophils % 1.1 Nucleated Red Blood Cells % 0.0 Immature Granulocytes # 0.040 H Neutrophils # 5.4 Lymphocytes # 0.4 L Monocytes # 1.0 H Eosinophils # 0.1 Basophils # 0.1 Nucleated Red Blood Cells # 0.0 Sodium Level 147 H Potassium Level 3.5 Chloride Level 117 H Carbon Dioxide Level 16 L Anion Gap 14 H Blood Urea Nitrogen 21 H Creatinine 0.81 Est Glomerular Filtrat Rate mL/min > 60 Glucose Level 83 Calcium Level 8.4 Total Bilirubin 0.1 L Direct Bilirubin 0.00 Indirect Bilirubin 0.1 Aspartate Amino Transf (AST/SGOT) 47 H Alanine Aminotransferase (ALT/SGPT) 20 Alkaline Phosphatase 67 Total Protein 6.8 Albumin 2.8 L Globulin 4.00 H Albumin/Globulin Ratio 0.70 Amylase Level 425 H Lipase 1964 H Vancomycin Level Trough 14.4 Consultation Date/Type/Reason Admit Date/Time Mar 31, 2018 at 17:58 Initial Consult Date 04/02/18 Reason for Consultation GI follow up pt non verbal no BM reported today ENT: bleeding gums, ? herpetic lesions lips abd: active BS, soft a Hematology - 72 Hrs Test 04/08/18 05:53 04/09/18 06:06 04/10/18 05:24 Hematocrit 30.0 % (42.0-52.0) 28.2 % (42.0-52.0) 29.2 % (42.0-52.0) #L L L Hemoglobin 9.8 9.2 9.4 g/dl (14.0-18.0) g/dl (14.0-18.0) g/dl (14.0-18.0) #L L L Mean Corpuscular 28.0 pg (29.0-33.0) 28.6 28.1 Hemoglobin L pg (29.0-33.0) L pg (29.0-33.0) L Mean Corpuscular 32.7 32.6 32.2 Hemoglobin Concent g/dl (32.0-37.0) g/dl (32.0-37.0) g/dl (32.0-37.0) Mean Corpuscular 85.7 87.6 87.2 Volume fl (82.0-101.0) fl (82.0-101.0) fl (82.0-101.0) Mean Platelet 10.5 fl (7.4-10.4) 10.6 fl (7.4-10.4) 10.5 fl (7.4-10.4) Volume H H H Platelet Count 186 187 203 10^3/UL (140-415) 10^3/UL (140-415) 10^3/UL (140-415) Red Blood Count 3.50 3.22 3.35 10^6/ul (4.70-6.10) 10^6/ul (4.70-6.10 10^6/ul (4.70-6.10 #L ) L ) L Red Cell 15.2 % (11.5-14.5) 15.7 % (11.5-14.5) 15.5 % (11.5-14.5) Distribution Width H H H White Blood Count 7.4 6.6 7.0 10^3/ul (4.8-10.8) 10^3/ul (4.8-10.8) 10^3/ul (4.8-10.8) Chemistry Test 04/07/18 10:00 04/08/18 05:53 04/09/18 06:06 04/10/18 05:24 Ammonia < 9 umol/l (9-30) L Sodium Level 143 145 147 mmol/L (135-14 mmol/L (135-14 mmol/L (135-14 4) 4) H 4) H Potassium 3.7 4.1 3.5 Level mmol/L (3.5-5. mmol/L (3.5-5. mmol/L (3.5-5. 1) 1) 1) Chloride Level 117 117 117 mmol/L (97-110 mmol/L (97-110 mmol/L (97-110 ) H ) H ) H Carbon Dioxide 17 18 16 Level mmol/L (21-31) mmol/L (21-31) mmol/L (21-31) L L L Anion Gap 9 (5-13) 10 (5-13) 14 (5-13) H Blood Urea 28 26 21 Nitrogen mg/dl (7-20) mg/dl (7-20) mg/dl (7-20) H H H Creatinine 0.80 0.80 0.81 mg/dl (0.61-1. mg/dl (0.61-1. mg/dl (0.61-1. 24) 24) 24) Est Glomerular > 60 > 60 > 60 Filtrat mL/min (>60) mL/min (>60) mL/min (>60) Rate mL/min Glucose Level 103 85 83 mg/dl (70-220) mg/dl (70-220) mg/dl (70-220) Calcium Level 8.2 8.2 8.4 mg/dl (8.4-10. mg/dl (8.4-10. mg/dl (8.4-10. 2) L 2) L 2) Magnesium 2.1 1.9 Level mg/dl (1.7-2.5 mg/dl (1.7-2.5 ) ) Iron Level 17 ug/dl (35-150) L Total Iron 161 Binding ug/dl (241-421 Capacity ) L Percent Iron 11 % Saturation SAT (22-52) L Ferritin 951.0 ng/ml (11.1-26 4.0) H Total 0.0 0.1 0.1 Bilirubin mg/dl (0.2-1.3 mg/dl (0.2-1.3 mg/dl (0.2-1.3 ) L ) L ) L Direct 0.00 0.00 0.00 Bilirubin mg/dl (0.00-0. mg/dl (0.00-0. mg/dl (0.00-0. 20) 20) 20) Indirect 0.0 0.1 0.1 Bilirubin mg/dl (0-1.1) mg/dl (0-1.1) mg/dl (0-1.1) Aspartate Amino 57 58 47 Transf (AST/SGO IU/L (15-46) IU/L (15-46) IU/L (15-46) T) H H H Alanine 20 19 20 Aminotransferas IU/L (13-69) IU/L (13-69) IU/L (13-69) e (ALT/SGPT) Alkaline 78 67 67 Phosphatase IU/L (42-121) IU/L (42-121) IU/L (42-121) Total Protein 6.8 6.3 6.8 g/dl (6.1-8.1) g/dl (6.1-8.1) g/dl (6.1-8.1) Albumin 2.8 2.7 2.8 g/dl (3.3-4.9) g/dl (3.3-4.9) g/dl (3.3-4.9) L L L Globulin 4.00 4.00 g/dl (1.3-3.2) g/dl (1.3-3.2) H H Albumin/Globuli 0.70 0.70 n Ratio Triglycerides 127 Level mg/dl (0-149) Cholesterol 75 Level mg/dl (100-200 ) L LDL 38 mg/dl Cholesterol, Calculated HDL 12 Cholesterol mg/dl (30-78) L Cholesterol/HDL 6.2 RATIO Ratio Lipase 3025 2786 1964 U/L (23-300) U/L (23-300) U/L (23-300) H H H Folate > 20.0 ng/ml (2.8-20. 0) H Phosphorus 2.5 Level mg/dl (2.5-4.9 ) Amylase Level 475 425 U/L (11-123) U/L (11-123) H H Requesting Provider: TAMARA GRAJEDA MD Exam/Review of Systems Vital Signs Vitals Vital Signs Date Temp Pulse Resp B/P (MAP) Pulse Ox O2 O2 Flow FiO2 Time Delivery Rate 04/10/18 89 09:07 04/10/18 98.2 16 145/96 100 Mechanical 08:00 (112) Ventilator 04/10/18 30 06:17 Intake and Output 04/09/18 04/09/18 04/10/18 1515:00 23:00 07:00 IntakeIntake Total 850 ml 690 ml OutputOutput Total 420 ml 650 ml BalanceBalance 430 ml 40 ml Medications Medications Current Medications Acetaminophen (Tylenol Tab) 1,000 mg Q4 PRN PO MODERATE PAIN LEVEL 4-6 Last administered on 04/07/18 12:14; Admin Dose 1,000 MG; Start 03/31/18 at 18:00 Acetaminophen (Tylenol Tab) 650 mg Q4 PRN GTB MILD PAIN LEVEL 1-3 Last administered on 04/09/18at 09:09; Admin Dose 650 MG; Start 03/31/18 at 18:00 Albuterol (Proventil 0.083% (Neb)) 2.5 mg Q3H PRN NEB WHEEZING AND SOB; Start 03/31/18 at 18:00 Albuterol (Proventil 0.083% (Neb)) 2.5 mg Q6 PRN NEB WHEEZING AND SOB; Start 03/31/18 at 18:00 Ascorbic Acid (Vitamin C) 500 mg DAILY GTB Last administered on 04/09/18at 09:09; Admin Dose 500 MG; Start 04/01/18 at 09:00 Bisacodyl (Dulcolax Supp) 10 mg DAILY PRN [place] CONSTIPATION; Start 03/31/18 at 18:00 Multivit/Ca Carb/ B Cmplx/FA/Prenat (Sofy-Sandoval) 1 tab DAILY GTB Last administered on 04/09/18at 09:09; Admin Dose 1 TAB; Start 04/01/18 at 09:00 Zinc Sulfate (Zinc Sulfate) 220 mg DAILY GTB Last administered on 04/09/18at 09:08; Admin Dose 220 MG; Start 04/01/18 at 09:00 IV Flush (NS 3 ml) 3 ml PER PROTOCOL IV ; Start 03/31/18 at 18:30 Ondansetron HCl (Zofran Inj) 4 mg Q6H PRN IV NAUSEA AND/OR VOMITING; Start 03/31/18 at 18:30 Acetaminophen (Tylenol Tab) 650 mg Q6H PRN PO PAIN LEVEL 1-3 OR FEVER Last administered on 04/06/18 03:55; Admin Dose 650 MG; Start 03/31/18 at 18:30 Acetaminophen (Tylenol Supp) 650 mg Q6H PRN [place] PAIN LEVEL 1-3 OR FEVER Last adm inistered on 04/02/18at 20:38; Admin Dose 650 MG; Start 03/31/18 at 18:30 Docusate Sodium (Colace) 100 mg Q12H PRN PO CONSTIPATION; Start 03/31/18 at 18:30 Vancomycin HCl (Vanco Iv Per Pharmacy) VANCOMYCIN PER PHARMACY PER PROTOCOL XX ; Start 04/01/18 at 13:00 Alteplase, Recombinant (Cathflo (Activase)) 2 mg MAY REPEAT X1 PRN CATHETER IF CATHETER REMAINS OCCULUDED Last administered on 04/03/18 04:24; Admin Dose 2 MG; Start 04/01/18 at 21:00 Fluconazole 100 ml @ 100 mls/hr Q24H IVPB Last administered on 04/09/18 12:51; Admin Dose 100 MLS/HR; Start 04/02/18 at 12:00 Vancomycin HCl 250 ml @ 125 mls/hr Q24H IVPB Last administered on 04/09/18 09:08; Admin Dose 125 MLS/HR; Start 04/03/18 at 09:00 Collagenase (Santyl) 1 applic DAILY TOP Last administered on 04/09/18 09:10; Admin Dose 1 APPLIC; Start 04/03/18 at 12:00 Meropenem/Sodium Chloride 50 ml @ 100 mls/hr Q8 IVPB Last administered on 05:11; Admin Dose 100 MLS/HR; Start 04/04/18 at 22:00 Morphine Sulfate (morphine) 6 mg Q4H PRN GTB SEVERE PAIN LEVEL 6-10; Start 04/04/18 at 23:00 Lorazepam (Ativan) 2 mg Q4H PRN IV restless, agitation, anxiety Last administered on 04/08/18 10:05; Admin Dose 2 MG; Start 04/05/18 at 10:00 Metronidazole (Flagyl) 500 mg Q8 NGT Last administered on 04/10/18 05:11; Admin Dose 500 MG; Start 04/06/18 at 14:00 Pantoprazole (Protonix Iv) 40 mg BID@06,18 IV Last administered on 04/10/18at 05:11; Admin Dose 40 MG; Start 04/08/18 at 18:00 Polyethylene Glycol (Miralax) 17 gm DAILY GTB Last administered on 04/09/18at 09:07; Admin Dose 17 GM; Start 04/08/18 at 09:00 Carvedilol (Coreg) 50 mg BID GTB Last administered on 04/09/18at 21:20; Admin Dose 50 MG; Start 04/08/18 at 21:00 Dextrose/Sodium Chloride 1,000 ml @ 40 mls/hr Q24H IV Last administered on 04/10/18at 05:11; Admin Dose 40 MLS/HR; Start 04/08/18 at 11:30 Tobramycin Sulfate/Sodium Chloride (Joey Inhal) 300 mg BID RESP THERAPY NEB Last administered on 04/10/18at 08:18; Admin Dose 300 MG; Start 04/09/18 at 09:00 KASSANDRA OROZCO MD Apr 10, 2018 09:55
--- NOTE | 2018-04-10 11:10 | CONS ---
Date/Time of Note Date/Time of Note DATE: 04/10/18 TIME: 11:09 Assessment/Plan Assessment/Plan Hospital Course No acute changes overnight, all noted, no fevers Microbiology: Blood cultures remain negative. Urine culture positive for Breanne albicans. Endotracheal aspirate growing gram-negative rods. Sacral wound culture growing MRSA, Breanne albicans, enterococcus, gram-negative rods. Nares swab positive for MRSA CT of the abdomen and pelvis revealed questionable enterocolitis. Cholelithiasis. Tiny bilateral pleural effusions with bibasilar airspace disease. Indwelling: Peg, Schwartz, right upper extremity PICC line, tracheostomy Antimicrobials: Flagyl, meropenem, vancomycin, fluconazole, tobramycin inha lation Physical examination: Chronically ill-appearing elderly man who is noncommunicative in no distress. Head atraumatic normocephalic sclera nonicteric neck is supple tracheostomy present chest rise symmetrical breath sounds diminished bases heart: S1-S2. Abdomen soft bowel sounds present. Ex tremities without cyanosis. Skin: Patient has multiple pressure sores he has a dry blood on the right lower lip Assessment: 1. Sepsis with ongoing fevers 2. Acute pancreatitis, CT of the abdomen revealed no abscess, no pseudocyst, [id number] today 3. Breanne albicans UTI 4. History of cardiomyopathy 5. Chronic respiratory failure 6. S/p gingival bleeding 7. Sacral decub 8. MRSA nares colonization 9. Possible enterocolitis Plan: Clinically unchanged, continue antibiotics, pending MRCP, f/u procalcitonin level Result Diagram: 04/10/18 0524 04/10/18 0524 Results 24hrs Laboratory Tests Test 04/10/18 05:24 04/10/18 07:53 White Blood Count 7.0 Red Blood Count 3.35 L Hemoglobin 9.4 L Hematocrit 29.2 L Mean Corpuscular Volume 87.2 Mean Corpuscular Hemoglobin 28.1 L Mean Corpuscular Hemoglobin Concent 32.2 Red Cell Distribution Width 15.5 H Platelet Count 203 Mean Platelet Volume 10.5 H Immature Granulocytes % 0.600 H Neutrophils % 76.3 Lymphocytes % 6.1 L Monocytes % 14.5 H Eosinophils % 1.4 Basophils % 1.1 Nucleated Red Blood Cells % 0.0 Immature Granulocytes # 0.040 H Neutrophils # 5.4 Lymphocytes # 0.4 L Monocytes # 1.0 H Eosinophils # 0.1 Basophils # 0.1 Nucleated Red Blood Cells # 0.0 Sodium Level 147 H Potassium Level 3.5 Chloride Level 117 H Carbon Dioxide Level 16 L Anion Gap 14 H Blood Urea Nitrogen 21 H Creatinine 0.81 Est Glomerular Filtrat Rate mL/min > 60 Glucose Level 83 Calcium Level 8.4 Total Bilirubin 0.1 L Direct Bilirubin 0.00 Indirect Bilirubin 0.1 Aspartate Amino Transf (AST/SGOT) 47 H Alanine Aminotransferase (ALT/SGPT) 20 Alkaline Phosphatase 67 Total Protein 6.8 Albumin 2.8 L Globulin 4.00 H Albumin/Globulin Ratio 0.70 Amylase Level 425 H Lipase 1964 H Vancomycin Level Trough 14.4 Consultation Date/Type/Reason Admit Date/Time Mar 31, 2018 at 17:58 Initial Consult Date 04/02/18 Type of Consult id Requesting Provider: TAMARA GRAJEDA MD Exam/Review of Systems Vital Signs Vitals Vital Signs Date Temp Pulse Resp B/P (MAP) Pulse Ox O2 O2 Flow FiO2 Time Delivery Rate 04/10/18 89 09:07 04/10/18 98.2 16 145/96 100 Mechanical 08:00 (112) Ventilator 04/10/18 30 06:17 Intake and Output 04/09/18 04/09/18 04/10/18 1515:00 23:00 07:00 IntakeIntake Total 850 ml 690 ml OutputOutput Total 420 ml 650 ml BalanceBalance 430 ml 40 ml Medications Medications Current Medications Acetaminophen (Tylenol Tab) 1,000 mg Q4 PRN PO MODERATE PAIN LEVEL 4-6 Last administered on 04/07/18at 12:14; Admin Dose 1,000 MG; Start 03/31/18 at 18:00 Acetaminophen (Tylenol Tab) 650 mg Q4 PRN GTB MILD PAIN LEVEL 1-3 Last administered on 04/09/18at 09:09; Admin Dose 650 MG; Start 03/31/18 at 18:00 Albuterol (Proventil 0.083% (Neb)) 2.5 mg Q3H PRN NEB WHEEZING AND SOB; Start 03/31/18 at 18:00 Albuterol (Proventil 0.083% (Neb)) 2.5 mg Q6 PRN NEB WHEEZING AND SOB; Start 03/31/18 at 18:00 Ascorbic Acid (Vitamin C) 500 mg DAILY GTB Last administered on 04/10/18 09:29; Admin Dose 500 MG; Start 04/01/18 at 09:00 Bisacodyl (Dulcolax Supp) 10 mg DAILY PRN [place] CONSTIPATION; Start 03/31/18 at 18:00 Multivit/Ca Carb/ B Cmplx/FA/Prenat (Sofy-Sandoval) 1 tab DAILY GTB Last administered on 04/10/18 09:29; Admin Dose 1 TAB; Start 04/01/18 at 09:00 Zinc Sulfate (Zinc Sulfate) 220 mg DAILY GTB Last administered on 04/10/18 09:29; Admin Dose 220 MG; Start 04/01/18 at 09:00 IV Flush (NS 3 ml) 3 ml PER PROTOCOL IV ; Start 03/31/18 at 18:30 Ondansetron HCl (Zofran Inj) 4 mg Q6H PRN IV NAUSEA AND/OR VOMITING; Start 03/31/18 at 18:30 Acetaminophen (Tylenol Tab) 650 mg Q6H PRN PO PAIN LEVEL 1-3 OR FEVER Last administered on 04/06/18 03:55; Admin Dose 650 MG; Start 03/31/18 at 18:30 Acetaminophen (Tylenol Supp) 650 mg Q6H PRN [place] PAIN LEVEL 1-3 OR FEVER Last administered on 04/02/18 20:38; Admin Dose 650 MG; Start 03/31/18 at 18:30 Docusate Sodium (Colace) 100 mg Q12H PRN PO CONSTIPATION; Start 03/31/18 at 18:30 Vancomycin HCl (Vanco Iv Per Pharmacy) VANCOMYCIN PER PHARMACY PER PROTOCOL XX ; Start 04/01/18 at 13:00 Alteplase, Recombinant (Cathflo (Activase)) 2 mg MAY REPEAT X1 PRN CATHETER IF CATHETER REMAINS OCCULUDED Last administered on 04/03/18 04:24; Admin Dose 2 MG; Start 04/01/18 at 21:00 Fluconazole 100 ml @ 100 mls/hr Q24H IVPB Last administered on 04/09/18 12:51; Admin Dose 100 MLS/HR; Start 04/02/18 at 12:00 Vancomycin HCl 250 ml @ 125 mls/hr Q24H IVPB Last administered on 04/10/18 09:30; Admin Dose 125 MLS/HR; Start 04/03/18 at 09:00 Collagenase (Santyl) 1 applic DAILY TOP Last administered on 04/10/18 09:29; Admin Dose 1 APPLIC; Start 04/03/18 at 12:00 Meropenem/Sodium Chloride 50 ml @ 100 mls/hr Q8 IVPB Last administered on 04/10/18 05:11; Admin Dose 100 MLS/HR; Start 04/04/18 at 22:00 Morphine Sulfate (morphine) 6 mg Q4H PRN GTB SEVERE PAIN LEVEL 6-10; Start 04/04/18 at 23:00 Lorazepam (Ativan) 2 mg Q4H PRN IV restless, agitation, anxiety Last administered on 04/08/18 10:05; Admin Dose 2 MG; Start 04/05/18 at 10:00 Metronidazole (Flagyl) 500 mg Q8 NGT Last administered on 04/10/18 05:11; Admin Dose 500 MG; Start 04/06/18 at 14:00 Pantoprazole (Protonix Iv) 40 mg BID@06,18 IV Last administered on 04/10/18 05:11; Admin Dose 40 MG; Start 04/08/18 at 18:00 Polyethylene Glycol (Miralax) 17 gm DAILY GTB Last administered on 04/10/18 09:29; Admin Dose 17 GM; Start 04/08/18 at 09:00 Carvedilol (Coreg) 50 mg BID GTB Last administered on 04/10/18 09:31; Admin Dose 50 MG; Start 04/08/18 at 21:00 Dextrose/Sodium Chloride 1,000 ml @ 40 mls/hr Q24H IV Last administered on 04/10/18 05:11; Admin Dose 40 MLS/HR; Start 04/08/18 at 11:30 Tobramycin Sulfate/Sodium Chloride (Joey Inhal) 300 mg BID RESP THERAPY NEB Last administered on 04/10/18 08:18; Admin Dose 300 MG; Start 04/09/18 at 09:00 RENÉ GARCIA NP Apr 10, 2018 11:10
[2018-04-10] MEDS: FLUCONAZOLE 200 MG (PMX) 100 ML IVPB SCH (12:42)
--- NOTE | 2018-04-10 12:46 | CONS ---
Date/Time of Note Date/Time of Note DATE: 04/10/18 TIME: 12:46 Consult Date/Type/Reason Admit Date/Time Mar 31, 2018 at 17:58 Initial Consult Date 04/02/18 Type of Consultation: Pulmonary Requesting Provider: TAMARA GRAJEDA MD Objective Vital Signs Date Temp Pulse Resp B/P (MAP) Pulse Ox O2 O2 Flow FiO2 Time Delivery Rate 04/10/18 98.7 79 14 114/80 100 Mechanical 12:24 (91) Ventilator 04/10/18 30 06:17 Intake and Output 04/09/18 04/09/18 04/10/18 1414:59 22:59 06:59 IntakeIntake Total 850 ml 690 ml OutputOutput Total 420 ml 650 ml BalanceBalance 430 ml 40 ml Exam PHYSICAL EXAMINATION GENERAL: Chronically ill-appearing gentleman on mechanical ventilation VITAL SIGNS: see below. HEENT: Pupils equal, round, and reactive to light. Tracheostomy site clean and intact. CARDIAC: S1, S2, 1/6 systolic ejection murmur CHEST: Diminished air entry bilaterally. ABDOMEN: Mildly distended. Bowel sounds present no guarding or rebound EXTREMITIES: No cyanosis, clubbing edema +1 NEUROLOGIC: Generalized weakness Results/Medications Result Diagram: 04/10/18 0524 04/10/18 0524 Results 24 hrs Laboratory Tests Test 04/10/18 05:24 04/10/18 07:53 White Blood Count 7.0 Red Blood Count 3.35 L Hemoglobin 9.4 L Hematocrit 29.2 L Mean Corpuscular Volume 87.2 Mean Corpuscular Hemoglobin 28.1 L Mean Corpuscular Hemoglobin Concent 32.2 Red Cell Distribution Width 15.5 H Platelet Count 203 Mean Platelet Volume 10.5 H Immature Granulocytes % 0.600 H Neutrophils % 76.3 Lymphocytes % 6.1 L Monocytes % 14.5 H Eosinophils % 1.4 Basophils % 1.1 Nucleated Red Blood Cells % 0.0 Immature Granulocytes # 0.040 H Neutrophils # 5.4 Lymphocytes # 0.4 L Monocytes # 1.0 H Eosinophils # 0.1 Basophils # 0.1 Nucleated Red Blood Cells # 0.0 Sodium Level 147 H Potassium Level 3.5 Chloride Level 117 H Carbon Dioxide Level 16 L Anion Gap 14 H Blood Urea Nitrogen 21 H Creatinine 0.81 Est Glomerular Filtrat Rate mL/min > 60 Glucose Level 83 Calcium Level 8.4 Total Bilirubin 0.1 L Direct Bilirubin 0.00 Indirect Bilirubin 0.1 Aspartate Amino Transf (AST/SGOT) 47 H Alanine Aminotransferase (ALT/SGPT) 20 Alkaline Phosphatase 67 Total Protein 6.8 Albumin 2.8 L Globulin 4.00 H Albumin/Globulin Ratio 0.70 Amylase Level 425 H Lipase 1964 H Vancomycin Level Trough 14.4 Medications Current Medications Acetaminophen (Tylenol Tab) 1,000 mg Q4 PRN PO MODERATE PAIN LEVEL 4-6 Last administered on 04/07/18 12:14; Admin Dose 1,000 MG; Start 03/31/18 at 18:00 Acetaminophen (Tylenol Tab) 650 mg Q4 PRN GTB MILD PAIN LEVEL 1-3 Last administered on 04/09/18 09:09; Admin Dose 650 MG; Start 03/31/18 at 18:00 Albuterol (Proventil 0.083% (Neb)) 2.5 mg Q3H PRN NEB WHEEZING AND SOB; Start 03/31/18 at 18:00 Albuterol (Proventil 0.083% (Neb)) 2.5 mg Q6 PRN NEB WHEEZING AND SOB; Start 03/31/18 at 18:00 Ascorbic Acid (Vitamin C) 500 mg DAILY GTB Last administered on 04/10/18 09:29; Admin Dose 500 MG; Start 04/01/18 at 09:00 Bisacodyl (Dulcolax Supp) 10 mg DAILY PRN [place] CONSTIPATION; Start 03/31/18 at 18:00 Multivit/Ca Carb/ B Cmplx/FA/Prenat (Sofy-Sandoval) 1 tab DAILY GTB Last administered on 04/10/18 09:29; Admin Dose 1 TAB; Start 04/01/18 at 09:00 Zinc Sulfate (Zinc Sulfate) 220 mg DAILY GTB Last administered on 04/10/18 09:29; Admin Dose 220 MG; Start 04/01/18 at 09:00 IV Flush (NS 3 ml) 3 ml PER PROTOCOL IV ; Start 03/31/18 at 18:30 Ondansetron HCl (Zofran Inj) 4 mg Q6H PRN IV NAUSEA AND/OR VOMITING; Start 03/31/18 at 18:30 Acetaminophen (Tylenol Tab) 650 mg Q6H PRN PO PAIN LEVEL 1-3 OR FEVER Last administered on 04/06/18 03:55; Admin Dose 650 MG; Start 03/31/18 at 18:30 Acetaminophen (Tylenol Supp) 650 mg Q6H PRN [place] PAIN LEVEL 1-3 OR FEVER Last administered on 04/02/18 20:38; Admin Dose 650 MG; Start 03/31/18 at 18:30 Docusate Sodium (Colace) 100 mg Q12H PRN PO CONSTIPATION; Start 03/31/18 at 18:30 Vancomycin HCl (Vanco Iv Per Pharmacy) VANCOMYCIN PER PHARMACY PER PROTOCOL XX ; Start 04/01/18 at 13:00 Alteplase, Recombinant (Cathflo (Activase)) 2 mg MAY REPEAT X1 PRN CATHETER IF CATHETER REMAINS OCCULUDED Last administered on 04/03/18 04:24; Admin Dose 2 MG; Start 04/01/18 at 21:00 Fluconazole 100 ml @ 100 mls/hr Q24H IVPB Last administered on 04/10/18 12:42; Admin Dose 100 MLS/HR; Start 04/02/18 at 12:00 Vancomycin HCl 250 ml @ 125 mls/hr Q24H IVPB Last administered on 04/10/18 09:30; Admin Dose 125 MLS/HR; Start 04/03/18 at 09:00 Collagenase (Santyl) 1 applic DAILY TOP Last administered on 04/10/18 09:29; Admin Dose 1 APPLIC; Start 04/03/18 at 12:00 Meropenem/Sodium Chloride 50 ml @ 100 mls/hr Q8 IVPB Last administered on 04/10/18 05:11; Admin Dose 100 MLS/HR; Start 04/04/18 at 22:00 Morphine Sulfate (morphine) 6 mg Q4H PRN GTB SEVERE PAIN LEVEL 6-10; Start 04/04/18 at 23:00 Lorazepam (Ativan) 2 mg Q4H PRN IV restless, agitation, anxiety Last administered on 04/08/18 10:05; Admin Dose 2 MG; Start 04/05/18 at 10:00 Metronidazole (Flagyl) 500 mg Q8 NGT Last administered on 04/10/18 05:11; Admin Dose 500 MG; Start 04/06/18 at 14:00 Pantoprazole (Protonix Iv) 40 mg BID@06,18 IV Last administered on 04/10/18 05:11; Admin Dose 40 MG; Start 04/08/18 at 18:00 Polyethylene Glycol (Miralax) 17 gm DAILY GTB Last administered on 04/10/18 09:29; Admin Dose 17 GM; Start 04/08/18 at 09:00 Carvedilol (Coreg) 50 mg BID GTB Last administered on 04/10/18 09:31; Admin Dose 50 MG; Start 04/08/18 at 21:00 Dextrose/Sodium Chloride 1,000 ml @ 40 mls/hr Q24H IV Last administered on 04/10/18 05:11; Admin Dose 40 MLS/HR; Start 04/08/18 at 11:30 Tobramycin Sulfate/Sodium Chloride (Joey Inhal) 300 mg BID RESP THERAPY NEB Last administered on 04/10/18 08:18; Admin Dose 300 MG; Start 04/09/18 at 09:00 Assessment/Plan Chief Complaint/Hosp Course Assessment 1. Vent dependent respiratory failure 2. Anemia from upper airway bleed 3. Chronic encephalopathy 4. Dysphagia with G-tube Plan 1. Monitor H&H 2. Continue mechanical ventilation 3. GI recs 4. DVT and GI prophylaxis SIRIA PISANO MD, [facility] Apr 10, 2018 12:46
--- NOTE | 2018-04-10 13:04 | PN ---
Date/Time of Note Date/Time of Note DATE: 04/10/18 TIME: 13:04 Assessment/Plan VTE Prophylaxis Risk score (from Ns)>0 risk: 8 SCD applied (from [facility] [place]): Yes Pharmacological prophylaxis: NA/contraindicated Pharm contraindication: low risk/ambulating Lines/Catheters IV Catheter Type (from [facility]): PICC Line Central line still needed: Yes Urinary Cath still in place: Yes Reason Cath still needed: urinary retention Assessment/Plan Hospital Course 62 y/o with # Oral gingival bleeding likely due to dentures, seen by ENT s/p endoscopy # Sepsis with Fevers with hx Pneumonia +UTI and ? Pancreatitis +multiple wounds, ucx+ lisa, wound cx+ MRSA/ pseudomonas, +resp culture +pseudomonas # Blood loss anemia due to oral gingival bleeding # VDRF # CKD with worsening renal failure>resolved # Metabolic acidosis #DILATED CARDIOMYOPATHY # HX ALCOHOL ABUSE # Multiple wounds > decub # Pancreatitis with elevated Lipase # Enterocoltiis on CT # AMS due to Metabolic encephalopathy with . Possible subacute infarct in the left cerebellar hemisphere and cerebellar peduncle Plan - NPO per GI - mrcp pening - FWF for hyperndatremia - iv fluids - hold midodrine - cwcoreg - iv abx with vanco/meropenam/fllagyl, tobramycin/ diflucan per ID? - no blood thinners due to anemia - GI prophylaxsis - monitor oral bleeding - Pending neuro recs - PT/OT/Speech Result Diagram: 04/10/18 0524 04/10/18 0524 Results 24hrs Laboratory Tests Test 04/10/18 05:24 04/10/18 07:53 White Blood Count 7.0 Red Blood Count 3.35 L Hemoglobin 9.4 L Hematocrit 29.2 L Mean Corpuscular Volume 87.2 Mean Corpuscular Hemoglobin 28.1 L Mean Corpuscular Hemoglobin Concent 32.2 Red Cell Distribution Width 15.5 H Platelet Count 203 Mean Platelet Volume 10.5 H Immature Granulocytes % 0.600 H Neutrophils % 76.3 Lymphocytes % 6.1 L Monocytes % 14.5 H Eosinophils % 1.4 Basophils % 1.1 Nucleated Red Blood Cells % 0.0 Immature Granulocytes # 0.040 H Neutrophils # 5.4 Lymphocytes # 0.4 L Monocytes # 1.0 H Eosinophils # 0.1 Basophils # 0.1 Nucleated Red Blood Cells # 0.0 Sodium Level 147 H Potassium Level 3.5 Chloride Level 117 H Carbon Dioxide Level 16 L Anion Gap 14 H Blood Urea Nitrogen 21 H Creatinine 0.81 Est Glomerular Filtrat Rate mL/min > 60 Glucose Level 83 Calcium Level 8.4 Total Bilirubin 0.1 L Direct Bilirubin 0.00 Indirect Bilirubin 0.1 Aspartate Amino Transf (AST/SGOT) 47 H Alanine Aminotransferase (ALT/SGPT) 20 Alkaline Phosphatase 67 Total Protein 6.8 Albumin 2.8 L Globulin 4.00 H Albumin/Globulin Ratio 0.70 Amylase Level 425 H Lipase 1964 H Vancomycin Level Trough 14.4 Subjective 24 Hr Interval Summary Free Text/Dictation Fevers 100.2 yesterday still NPO as lipase elevated Exam/Review of Systems Vital Signs Vitals Vital Signs Date Temp Pulse Resp B/P (MAP) Pulse Ox O2 O2 Flow FiO2 Time Delivery Rate 04/10/18 77 12:51 04/10/18 98.7 14 114/80 100 Mechanical 12:24 (91) Ventilator 04/10/18 30 06:17 Intake and Output 04/09/18 04/09/18 04/10/18 1515:00 23:00 07:00 IntakeIntake Total 850 ml 690 ml OutputOutput Total 420 ml 650 ml BalanceBalance 430 ml 40 ml Exam onstitutional:Well-developed. Well-nourished., tachpnic, opens eyes, tries to follows commands HEENT:Normocephalic. Atraumatic.Pupils were equal round reactive to light. Significant amount of bright red blood present within the oropharynx. Chapped lips that were actively bleeding..+old dried blood around lips Neck: . Tracheostomy site clean dry and intact Respiratory: lungs clear Cardiovascular: tachycardic GI: Abdomen was soft. Nontender. Non Distended. No pulsatile abdominal masses or bruits. No rebound. No guarding. Bowel sounds were present and normal. Muscle skeletal: Muscle atrophy of the bilateral lower extremities. Patient has limited range of motion of the right upper and lower extremity but was able to flex extend at the elbow and lift his right upper extremity against gravity. Patient has no movement of the bilateral lower extremities multiple wounds rt PICC Medications Medications Current Medications Acetaminophen (Tylenol Tab) 1,000 mg Q4 PRN PO MODERATE PAIN LEVEL 4-6 Last administered on 04/07/18at 12:14; Admin Dose 1,000 MG; Start 03/31/18 at 18:00 Acetaminophen (Tylenol Tab) 650 mg Q4 PRN GTB MILD PAIN LEVEL 1-3 Last administered on 04/09/18at 09:09; Admin Dose 650 MG; Start 03/31/18 at 18:00 Albuterol (Proventil 0.083% (Neb)) 2.5 mg Q3H PRN NEB WHEEZING AND SOB; Start 03/31/18 at 18:00 Albuterol (Proventil 0.083% (Neb)) 2.5 mg Q6 PRN NEB WHEEZING AND SOB; Start 03/31/18 at 18:00 Ascorbic Acid (Vitamin C) 500 mg DAILY GTB Last administered on 04/10/18at 09:29; Admin Dose 500 MG; Start 04/01/18 at 09:00 Bisacodyl (Dulcolax Supp) 10 mg DAILY PRN [place] CONSTIPATION; Start 03/31/18 at 18:00 Multivit/Ca Carb/ B Cmplx/FA/Prenat (Sofy-Sandoval) 1 tab DAILY GTB Last administered on 04/10/18at 09:29; Admin Dose 1 TAB; Start 04/01/18 at 09:00 Zinc Sulfate (Zinc Sulfate) 220 mg DAILY GTB Last administered on 04/10/18at 09:29; Admin Dose 220 MG; Start 04/01/18 at 09:00 IV Flush (NS 3 ml) 3 ml PER PROTOCOL IV ; Start 03/31/18 at 18:30 Ondansetron HCl (Zofran Inj) 4 mg Q6H PRN IV NAUSEA AND/OR VOMITING; Start 03/31/18 at 18:30 Acetaminophen (Tylenol Tab) 650 mg Q6H PRN PO PAIN LEVEL 1-3 OR FEVER Last administered on 04/06/18at 03:55; Admin Dose 650 MG; Start 03/31/18 at 18:30 Acetaminophen (Tylenol Supp) 650 mg Q6H PRN [place] PAIN LEVEL 1-3 OR FEVER Last administered on 04/02/18at 20:38; Admin Dose 650 MG; Start 03/31/18 at 18:30 Docusate Sodium (Colace) 100 mg Q12H PRN PO CONSTIPATION; Start 03/31/18 at 18:30 Vancomycin HCl (Vanco Iv Per Pharmacy) VANCOMYCIN PER PHARMACY PER PROTOCOL XX ; Start 04/01/18 at 13:00 Alteplase, Recombinant (Cathflo (Activase)) 2 mg MAY REPEAT X1 PRN CATHETER IF CATHETER REMAINS OCCULUDED Last administered on 04/03/18 04:24; Admin Dose 2 MG; Start 04/01/18 at 21:00 Fluconazole 100 ml @ 100 mls/hr Q24H IVPB Last administered on 04/10/18 12:42; Admin Dose 100 MLS/HR; Start 04/02/18 at 12:00 Vancomycin HCl 250 ml @ 125 mls/hr Q24H IVPB Last administered on 04/10/18 09:30; Admin Dose 125 MLS/HR; Start 04/03/18 at 09:00 Collagenase (Santyl) 1 applic DAILY TOP Last administered on 04/10/18 09:29; Admin Dose 1 APPLIC; Start 04/03/18 at 12:00 Meropenem/Sodium Chloride 50 ml @ 100 mls/hr Q8 IVPB Last administered on 04/10/18 05:11; Admin Dose 100 MLS/HR; Start 04/04/18 at 22:00 Morphine Sulfate (morphine) 6 mg Q4H PRN GTB SEVERE PAIN LEVEL 6-10; Start 04/04/18 at 23:00 Lorazepam (Ativan) 2 mg Q4H PRN IV restless, agitation, anxiety Last administered on 04/08/18at 10:05; Admin Dose 2 MG; Start 04/05/18 at 10:00 Metronidazole (Flagyl) 500 mg Q8 NGT Last administered on 04/10/18 05:11; Admin Dose 500 MG; Start 04/06/18 at 14:00 Pantoprazole (Protonix Iv) 40 mg BID@06,18 IV Last administered on 04/10/18 05:11; Admin Dose 40 MG; Start 04/08/18 at 18:00 Polyethylene Glycol (Miralax) 17 gm DAILY GTB Last administered on 04/10/18 09:29; Admin Dose 17 GM; Start 04/08/18 at 09:00 Carvedilol (Coreg) 50 mg BID GTB Last administered on 04/10/18 09:31; Admin Dose 50 MG; Start 04/08/18 at 21:00 Dextrose/Sodium Chloride 1,000 ml @ 40 mls/hr Q24H IV Last administered on 04/10/18at 05:11; Admin Dose 40 MLS/HR; Start 04/08/18 at 11:30 Tobramycin Sulfate/Sodium Chloride (Joey Inhal) 300 mg BID RESP THERAPY NEB Last administered on 04/10/18at 08:18; Admin Dose 300 MG; Start 04/09/18 at 09:00 TAMARA GRAJEDA MD Apr 10, 2018 13:04
--- NOTE | 2018-04-10 14:34 | CONS ---
Assessment/Plan Assessment/Plan Hospital Course 62 M c/ Hx of methamphetamine/ETOH abuse c/b cirrhosis and dilated cardiomyopathy... and other comorbidities, admitted for evaluation of gingival bleeding..and fevers.... Neurology is consulted to evaluate chronic encephalopathy and assess prognosis for meaningful neurologic recovery.. The patient and family are unable to contribute a Hx; EMR documentation is relatively sparse... D/C summary from his next most recent admission in 2016 notes an admission for hypoxic respiratory failure and severe ETOH w/d...which saw him discharged to home following extubation and clinical improvement... Interval Hx is limited... It is, thus, currently impossible to provide any meaningful opinion regarding his chronic neurologic disease.. As an aside, he likely today has a superimposed acute toxic-metabolic on chronic encephalopathy.. Head CT shows only mild volume loss and some small vessel ischemic disease.. MRI brain is concerning for a subacute cerebellar infarction, though it is limited by motion.. EEG is notable for severe diffuse slowing but is without epileptiform activity. P: Clarify neurologic Hx when able Start asa for secondary stroke prevention when medically able (ie severe anemia and gingival hemorrhage are solved..); LDL is at goal... Continued medical management and supportive care per primary Limit sedating medications where possible PT/OT/ST as able Will follow Result Diagram: 04/10/18 0524 04/10/18 0524 Results 24hrs Laboratory Tests Test 04/10/18 05:24 04/10/18 07:53 White Blood Count 7.0 Red Blood Count 3.35 L Hemoglobin 9.4 L Hematocrit 29.2 L Mean Corpuscular Volume 87.2 Mean Corpuscular Hemoglobin 28.1 L Mean Corpuscular Hemoglobin Concent 32.2 Red Cell Distribution Width 15.5 H Platelet Count 203 Mean Platelet Volume 10.5 H Immature Granulocytes % 0.600 H Neutrophils % 76.3 Lymphocytes % 6.1 L Monocytes % 14.5 H Eosinophils % 1.4 Basophils % 1.1 Nucleated Red Blood Cells % 0.0 Immature Granulocytes # 0.040 H Neutrophils # 5.4 Lymphocytes # 0.4 L Monocytes # 1.0 H Eosinophils # 0.1 Basophils # 0.1 Nucleated Red Blood Cells # 0.0 Sodium Level 147 H Potassium Level 3.5 Chloride Level 117 H Carbon Dioxide Level 16 L Anion Gap 14 H Blood Urea Nitrogen 21 H Creatinine 0.81 Est Glomerular Filtrat Rate mL/min > 60 Glucose Level 83 Calcium Level 8.4 Total Bilirubin 0.1 L Direct Bilirubin 0.00 Indirect Bilirubin 0.1 Aspartate Amino Transf (AST/SGOT) 47 H Alanine Aminotransferase (ALT/SGPT) 20 Alkaline Phosphatase 67 Total Protein 6.8 Albumin 2.8 L Globulin 4.00 H Albumin/Globulin Ratio 0.70 Amylase Level 425 H Lipase 1964 H Vancomycin Level Trough 14.4 Consultation Date/Type/Reason Admit Date/Time Mar 31, 2018 at 17:58 Type of Consult Neurology Requesting Provider: TAMARA GRAJEDA MD Date/Time of Note DATE: 04/10/18 TIME: 14:34 24 HR Interval Summary Free Text/Dictation Continues telemetry monitoring. No acute events reported today. Family at bedside stated that the pt had c/o feeling hungry earlier. Exam Vital Signs Vitals Vital Signs Date Temp Pulse Resp B/P (MAP) Pulse Ox O2 O2 Flow FiO2 Time Delivery Rate 04/10/18 77 12:51 04/10/18 98.7 14 114/80 100 Mechanical 12:24 (91) Ventilator 04/10/18 30 06:17 Intake and Output 04/09/18 04/09/18 04/10/18 1515:00 23:00 07:00 IntakeIntake Total 850 ml 690 ml OutputOutput Total 420 ml 650 ml BalanceBalance 430 ml 40 ml Exam PE: Gen Appearance: No Apparent Distress; dried blood in mouth... HEENT: Trach Cardiovascular: Regular rate Respiratory: Tachypneic Abdomen: Soft Extremities: Dry NE: The patient was lethargic and nonverbal. Opens eyes to noxious stimuli. Unable to fix or follow commands. Cranial nerve examination was limited by mental status. Pupils were equal and reactive to light. There was no afferent pupillary defect. Funduscopic examination was limited. Face was grossly symmetric, w/ present corneal and cough reflexes. Tone was normal. Muscle bulk was reduced. I did not see fasciculations. The patient was moving his extremities spontaneously, BUE symmetrically and BLE (L<R) Coordination and gait testing was limited by mental status. Arm and leg reflexes were within normal limits and symmetric. Maguire's sign was absent. Plantar responses were flexor. ANURAG PRESSLEY NP Apr 10, 2018 14:34 MANDO PINO Apr 11, 2018 06:14
[2018-04-11] VITALS (23 sets, daily range): BP systolic 150–159; BP diastolic 88–92; PULSE 59–83; RESP 16–28
[2018-04-11] MEDS: TOBRAMYCIN/0.25NS 300 MG/5 ML INHAL NEB SCH ×3 (00:08→19:42)
[2018-04-11] MEDS: PANTOPRAZOLE 40 MG INJ IV SCH ×2 (05:43→18:03)
[2018-04-11] MEDS: metroNIDAZOLE 500 MG TAB NGT SCH (05:44)
[2018-04-11] MEDS: MEROPENEM 500MG/50 ML (PMX) 50 ML IVPB SCH (05:44)
--- NOTE | 2018-04-11 08:13 | CONS ---
Date/Time of Note Date/Time of Note DATE: 04/11/18 TIME: 08:07 Assessment/Plan Assessment/Plan Assessment/Plan 1:gingival bleeding inactive 2 Hyperamylasemia asymptomatic, CT negative for evidence of inflammation abd soft non tender, good BS lipase not ordered this am. I reordered it. lft's normal MRCP ordered previously, will query why not done. aftre lipase result returns, i would resume feedings Result Diagram: 04/11/18 0632 04/11/18 0632 Results 24hrs Laboratory Tests Test 04/11/18 06:32 04/11/18 07:46 White Blood Count 5.1 # Red Blood Count 3.48 L Hemoglobin 9.8 L Hematocrit 30.2 L Mean Corpuscular Volume 86.8 Mean Corpuscular Hemoglobin 28.2 L Mean Corpuscular Hemoglobin Concent 32.5 Red Cell Distribution Width 15.8 H Platelet Count 209 Mean Platelet Volume 10.4 Immature Granulocytes % 0.600 H Neutrophils % 71.7 Lymphocytes % 7.1 L Monocytes % 17.6 H Eosinophils % 1.8 Basophils % 1.2 Nucleated Red Blood Cells % 0.0 Immature Granulocytes # 0.030 Neutrophils # 3.7 Lymphocytes # 0.4 L Monocytes # 0.9 Eosinophils # 0.1 Basophils # 0.1 Nucleated Red Blood Cells # 0.0 Sodium Level 143 Potassium Level 3.5 Chloride Level 119 H Carbon Dioxide Level 16 L Anion Gap 8 Blood Urea Nitrogen 21 H Creatinine 0.87 Est Glomerular Filtrat Rate mL/min > 60 Glucose Level 87 Calcium Level 8.6 Phosphorus Level 2.6 Magnesium Level 1.8 Total Bilirubin 0.1 L Direct Bilirubin 0.00 Indirect Bilirubin 0.1 Aspartate Amino Transf (AST/SGOT) 42 Alanine Aminotransferase (ALT/SGPT) 15 Alkaline Phosphatase 68 Total Protein 6.5 Albumin 2.7 L Globulin 3.80 H Albumin/Globulin Ratio 0.71 Lab Scanned Report BLOOD TRANSFUSION Consultation Date/Type/Reason Admit Date/Time Mar 31, 2018 at 17:58 Initial Consult Date 04/02/18 Type of Consult consult follow up Reason for Consultation Hyperamylasemia Requesting Provider: TAMARA GRAJEDA MD Exam/Review of Systems Vital Signs Vitals Vital Signs Date Temp Pulse Resp B/P (MAP) Pulse Ox O2 O2 Flow FiO2 Time Delivery Rate 04/11/18 16 150/88 100 Mechanical 07:28 (108) Ventilator 04/11/18 98.6 81 07:21 04/11/18 30 05:52 Intake and Output 04/10/18 04/10/18 04/11/18 1414:59 22:59 06:59 IntakeIntake Total 1360 ml 200 ml OutputOutput Total 750 ml 300 ml BalanceBalance 610 ml -100 ml Medications Medications Current Medications Acetaminophen (Tylenol Tab) 1,000 mg Q4 PRN PO MODERATE PAIN LEVEL 4-6 Last administered on 04/07/18at 12:14; Admin Dose 1,000 MG; Start 03/31/18 at 18:00 Acetaminophen (Tylenol Tab) 650 mg Q4 PRN GTB MILD PAIN LEVEL 1-3 Last administered on 04/09/18at 09:09; Admin Dose 650 MG; Start 03/31/18 at 18:00 Albuterol (Proventil 0.083% (Neb)) 2.5 mg Q3H PRN NEB WHEEZING AND SOB; Start 03/31/18 at 18:00 Albuterol (Proventil 0.083% (Neb)) 2.5 mg Q6 PRN NEB WHEEZING AND SOB; Start 03/31/18 at 18:00 Ascorbic Acid (Vitamin C) 500 mg DAILY GTB Last administered on 04/10/18at 09:29; Admin Dose 500 MG; Start 04/01/18 at 09:00 Bisacodyl (Dulcolax Supp) 10 mg DAILY PRN [place] CONSTIPATION; Start 03/31/18 at 18:00 Multivit/Ca Carb/ B Cmplx/FA/Prenat (Sofy-Sandoval) 1 tab DAILY GTB Last administered on 04/10/18at 09:29; Admin Dose 1 TAB; Start 04/01/18 at 09:00 Zinc Sulfate (Zinc Sulfate) 220 mg DAILY GTB Last administered on 04/10/18at 09:29; Admin Dose 220 MG; Start 04/01/18 at 09:00 IV Flush (NS 3 ml) 3 ml PER PROTOCOL IV ; Start 03/31/18 at 18:30 Ondansetron HCl (Zofran Inj) 4 mg Q6H PRN IV NAUSEA AND/OR VOMITING; Start 03/31/18 at 18:30 Acetaminophen (Tylenol Tab) 650 mg Q6H PRN PO PAIN LEVEL 1-3 OR FEVER Last administered on 04/06/18 03:55; Admin Dose 650 MG; Start 03/31/18 at 18:30 Acetaminophen (Tylenol Supp) 650 mg Q6H PRN [place] PAIN LEVEL 1-3 OR FEVER Last administered on 04/02/18at 20:38; Admin Dose 650 MG; Start 03/31/18 at 18:30 Docusate Sodium (Colace) 100 mg Q12H PRN PO CONSTIPATION; Start 03/31/18 at 18:30 Vancomycin HCl (Vanco Iv Per Pharmacy) VANCOMYCIN PER PHARMACY PER PROTOCOL XX ; Start 04/01/18 at 13:00 Alteplase, Recombinant (Cathflo (Activase)) 2 mg MAY REPEAT X1 PRN CATHETER IF CATHETER REMAINS OCCULUDED Last administered on 04/03/18 04:24; Admin Dose 2 MG; Start 04/01/18 at 21:00 Fluconazole 100 ml @ 100 mls/hr Q24H IVPB Last administered on 04/10/18 12:42; Admin Dose 100 MLS/HR; Start 04/02/18 at 12:00 Vancomycin HCl 250 ml @ 125 mls/hr Q24H IVPB Last administered on 04/10/18 09:30; Admin Dose 125 MLS/HR; Start 04/03/18 at 09:00 Collagenase (Santyl) 1 applic DAILY TOP Last administered on 04/10/18 09:29; Admin Dose 1 APPLIC; Start 04/03/18 at 12:00 Meropenem/Sodium Chloride 50 ml @ 100 mls/hr Q8 IVPB Last administered on 04/11/18 05:44; Admin Dose 100 MLS/HR; Start 04/04/18 at 22:00 Morphine Sulfate (morphine) 6 mg Q4H PRN GTB SEVERE PAIN LEVEL 6-10; Start 04/04/18 at 23:00 Lorazepam (Ativan) 2 mg Q4H PRN IV restless, agitation, anxiety Last administe red on 04/08/18at 10:05; Admin Dose 2 MG; Start 04/05/18 at 10:00 Metronidazole (Flagyl) 500 mg Q8 NGT Last administered on 04/11/18 05:44; Admin Dose 500 MG; Start 04/06/18 at 14:00 Pantoprazole (Protonix Iv) 40 mg BID@06,18 IV Last administered on 04/11/18at 05:43; Admin Dose 40 MG; Start 04/08/18 at 18:00 Polyethylene Glycol (Miralax) 17 gm DAILY GTB Last administered on 04/09/18at 09:07; Admin Dose 17 GM; Start 04/08/18 at 09:00 Carvedilol (Coreg) 50 mg BID GTB Last administered on 04/10/18at 21:28; Admin Dose 50 MG; Start 04/08/18 at 21:00 Dextrose/Sodium Chloride 1,000 ml @ 70 mls/hr [id number] IV Last administered on 04/10/18at 19:01; Admin Dose 70 MLS/HR; Start 04/08/18 at 11:30 Tobramycin Sulfate/Sodium Chloride (Joey Inhal) 300 mg BID RESP THERAPY NEB Last administered on 04/11/18at 00:08; Admin Dose 300 MG; Start 04/09/18 at 09:00 KASSANDRA OROZCO MD Apr 11, 2018 08:13
--- NOTE | 2018-04-11 08:23 | QN ---
Documentation Comment 182 pages of medical records reviewed from recent hospitalization at [facility], [place], beginning 03/08/18... Unfortunately, physician documentation within is sparse...and a discharge summary is absent. However, it is apparent that Juan Manuel presented while ETOH intoxicated with c/o ams/agitation..following a ETOH/drug detox admission at [place] days earlier.. His UDS on admission was negative, though he had a reported Hx of meth abuse and a serum ETOH level of 54.. He was quickly found to be hypoxic (arterial po2 42) due to multilobar pneumonia...and intubated for acute respiratory failure.. He was noted to be in protracted coma following intubation..which led to a neurology consultation by Dr. Victoria...and subsequent evaluation that included EEG and LP. EEG report is not available; CSF supported a traumatic tap, but is otherwise unremarkable.. He was ultimately trached, peg'd and discharged to a facility for continued care. There is no history of audra cardiac arrest noted.. MANDO PINO Apr 11, 2018 08:23
[2018-04-11] MEDS: BALSAM PERU/CASTOR OIL 60 GM TUBE TOP SCH ×2 (08:56→21:00)
[2018-04-11] MEDS: COLLAGENASE 5 GM (UD JAR) TOP SCH (08:57)
[2018-04-11] MEDS: ASCORBIC ACID 500 MG TAB GTB SCH (09:00)
[2018-04-11] MEDS: MULTIVIT/CA CARB/B CMPLX/FA TAB GTB SCH (09:00)
[2018-04-11] MEDS: POLYETHYLENE GLYCOL 17 GM PACKET GTB SCH (09:00)
[2018-04-11] MEDS: ZINC SULFATE 220 MG CAP GTB SCH (09:00)
[2018-04-11] MEDS: VANCOMYCIN 1 GM 250 ML IVPB SCH (09:06)
--- NOTE | 2018-04-11 10:41 | CONS ---
Date/Time of Note Date/Time of Note DATE: 04/11/18 TIME: 10:40 Consult Date/Type/Reason Admit Date/Time Mar 31, 2018 at 17:58 Initial Consult Date 04/02/18 Type of Consultation: Pulmonary Requesting Provider: TAMARA GRAJEDA MD Subjective comfortable, no resp distress. Objective Vital Signs Date Temp Pulse Resp B/P (MAP) Pulse Ox O2 O2 Flow FiO2 Time Delivery Rate 04/11/18 76 08:46 04/11/18 16 150/88 100 Mechanical 07:28 (108) Ventilator 04/11/18 98.6 07:21 04/11/18 30 05:52 Intake and Output 04/10/18 04/10/18 04/11/18 1414:59 22:59 06:59 IntakeIntake Total 1360 ml 200 ml OutputOutput Total 750 ml 300 ml BalanceBalance 610 ml -100 ml Results/Medications Result Diagram: 04/11/18 0632 04/11/18 0632 Results 24 hrs Laboratory Tests Test 04/11/18 06:32 04/11/18 07:46 White Blood Count 5.1 # Red Blood Count 3.48 L Hemoglobin 9.8 L Hematocrit 30.2 L Mean Corpuscular Volume 86.8 Mean Corpuscular Hemoglobin 28.2 L Mean Corpuscular Hemoglobin Concent 32.5 Red Cell Distribution Width 15.8 H Platelet Count 209 Mean Platelet Volume 10.4 Immature Granulocytes % 0.600 H Neutrophils % 71.7 Lymphocytes % 7.1 L Monocytes % 17.6 H Eosinophils % 1.8 Basophils % 1.2 Nucleated Red Blood Cells % 0.0 Immature Granulocytes # 0.030 Neutrophils # 3.7 Lymphocytes # 0.4 L Monocytes # 0.9 Eosinophils # 0.1 Basophils # 0.1 Nucleated Red Blood Cells # 0.0 Sodium Level 143 Potassium Level 3.5 Chloride Level 119 H Carbon Dioxide Level 16 L Anion Gap 8 Blood Urea Nitrogen 21 H Creatinine 0.87 Est Glomerular Filtrat Rate mL/min > 60 Glucose Level 87 Calcium Level 8.6 Phosphorus Level 2.6 Magnesium Level 1.8 Total Bilirubin 0.1 L Direct Bilirubin 0.00 Indirect Bilirubin 0.1 Aspartate Amino Transf (AST/SGOT) 42 Alanine Aminotransferase (ALT/SGPT) 15 Alkaline Phosphatase 68 Total Protein 6.5 Albumin 2.7 L Globulin 3.80 H Albumin/Globulin Ratio 0.71 Lab Scanned Report BLOOD TRANSFUSION Medications Current Medications Acetaminophen (Tylenol Tab) 1,000 mg Q4 PRN PO MODERATE PAIN LEVEL 4-6 Last administered on 04/07/18 12:14; Admin Dose 1,000 MG; Start 03/31/18 at 18:00 Acetaminophen (Tylenol Tab) 650 mg Q4 PRN GTB MILD PAIN LEVEL 1-3 Last administered on 04/09/18 09:09; Admin Dose 650 MG; Start 03/31/18 at 18:00 Albuterol (Proventil 0.083% (Neb)) 2.5 mg Q3H PRN NEB WHEEZING AND SOB; Start 03/31/18 at 18:00 Albuterol (Proventil 0.083% (Neb)) 2.5 mg Q6 PRN NEB WHEEZING AND SOB; Start 03/31/18 at 18:00 Ascorbic Acid (Vitamin C) 500 mg DAILY GTB Last administered on 04/10/18 09:29; Admin Dose 500 MG; Start 04/01/18 at 09:00 Bisacodyl (Dulcolax Supp) 10 mg DAILY PRN [place] CONSTIPATION; Start 03/31/18 at 18:00 Multivit/Ca Carb/ B Cmplx/FA/Prenat (Sofy-Sandoval) 1 tab DAILY GTB Last administered on 04/10/18 09:29; Admin Dose 1 TAB; Start 04/01/18 at 09:00 Zinc Sulfate (Zinc Sulfate) 220 mg DAILY GTB Last administered on 04/10/18 09:29; Admin Dose 220 MG; Start 04/01/18 at 09:00 IV Flush (NS 3 ml) 3 ml PER PROTOCOL IV ; Start 03/31/18 at 18:30 Ondansetron HCl (Zofran Inj) 4 mg Q6H PRN IV NAUSEA AND/OR VOMITING; Start 03/31/18 at 18:30 Acetaminophen (Tylenol Tab) 650 mg Q6H PRN PO PAIN LEVEL 1-3 OR FEVER Last administered on 04/06/18at 03:55; Admin Dose 650 MG; Start 03/31/18 at 18:30 Acetaminophen (Tylenol Supp) 650 mg Q6H PRN NE PAIN LEVEL 1-3 OR FEVER Last administered on 04/02/18 20:38; Admin Dose 650 MG; Start 03/31/18 at 18:30 Docusate Sodium (Colace) 100 mg Q12H PRN PO CONSTIPATION; Start 03/31/18 at 18:30 Vancomycin HCl (Vanco Iv Per Pharmacy) VANCOMYCIN PER PHARMACY PER PROTOCOL XX ; Start 04/01/18 at 13:00 Alteplase, Recombinant (Cathflo (Activase)) 2 mg MAY REPEAT X1 PRN CATHETER IF CATHETER REMAINS OCCULUDED Last administered on 04/03/18at 04:24; Admin Dose 2 MG; Start 04/01/18 at 21:00 Fluconazole 100 ml @ 100 mls/hr Q24H IVPB Last administered on 04/10/18at 12:42; Admin Dose 100 MLS/HR; Start 04/02/18 at 12:00 Vancomycin HCl 250 ml @ 125 mls/hr Q24H IVPB Last administered on 04/11/18at 09:06; Admin Dose 125 MLS/HR; Start 04/03/18 at 09:00 Collagenase (Santyl) 1 applic DAILY TOP Last administered on 04/11/18at 08:57; Admin Dose 1 APPLIC; Start 04/03/18 at 12:00 Meropenem/Sodium Chloride 50 ml @ 100 mls/hr Q8 IVPB Last administered on 04/11/18 05:44; Admin Dose 100 MLS/HR; Start 04/04/18 at 22:00 Morphine Sulfate (morphine) 6 mg Q4H PRN GTB SEVERE PAIN LEVEL 6-10; Start 04/04/18 at 23:00 Lorazepam (Ativan) 2 mg Q4H PRN IV restless, agitation, anxiety Last administered on 04/08/18at 10:05; Admin Dose 2 MG; Start 04/05/18 at 10:00 Metronidazole (Flagyl) 500 mg Q8 NGT Last administered on 04/11/18at 05:44; Admin Dose 500 MG; Start 04/06/18 at 14:00 Pantoprazole (Protonix Iv) 40 mg BID@06,18 IV Last administered on 04/11/18at 05:43; Admin Dose 40 MG; Start 04/08/18 at 18:00 Polyethylene Glycol (Miralax) 17 gm DAILY GTB Last administered on 04/09/18at 09:07; Admin Dose 17 GM; Start 04/08/18 at 09:00 Carvedilol (Coreg) 50 mg BID GTB Last administered on 04/10/18at 21:28; Admin Dose 50 MG; Start 04/08/18 at 21:00 Dextrose/Sodium Chloride 1,000 ml @ 70 mls/hr [id number] IV Last administered on 04/10/18at 19:01; Admin Dose 70 MLS/HR; Start 04/08/18 at 11:30 Tobramycin Sulfate/Sodium Chloride (Joey Inhal) 300 mg BID RESP THERAPY NEB Last administered on 04/11/18at 09:36; Admin Dose 300 MG; Start 04/09/18 at 09:00 Assessment/Plan Chief Complaint/Hosp Course Assessment 1. Vent dependent respiratory failure 2. Anemia from upper airway bleed 3. Chronic encephalopathy 4. Dysphagia with G-tube Plan 1. Monitor H&H 2. Continue mechanical ventilation 3. GI recs 4. DVT and GI prophylaxis SIRIA PISANO MD, [facility] Apr 11, 2018 10:41
[2018-04-11] MEDS: FLUCONAZOLE 200 MG (PMX) 100 ML IVPB SCH (12:37)
--- NOTE | 2018-04-11 12:39 | PN ---
Date/Time of Note Date/Time of Note DATE: 04/11/18 TIME: 12:36 Assessment/Plan VTE Prophylaxis Risk score (from Ns)>0 risk: 6 SCD applied (from Ns): Yes Pharmacological prophylaxis: NA/contraindicated Pharm contraindication: low risk/ambulating Lines/Catheters IV Catheter Type (from [facility]): PICC Line Central line still needed: Yes Urinary Cath still in place: Yes Reason Cath still needed: urinary retention Assessment/Plan Hospital Course 62 y/o with # Oral gingival bleeding likely due to dentures, seen by ENT s/p endoscopy # Sepsis with Fevers with hx Pneumonia +UTI and ? Pancreatitis +multiple wounds, ucx+ lisa, wound cx+ MRSA/ pseudomonas, +resp culture +pseudomonas # Blood loss anemia due to oral gingival bleeding # VDRF # CKD with worsening renal failure>resolved # Metabolic acidosis #DILATED CARDIOMYOPATHY # HX ALCOHOL ABUSE # Multiple wounds > decub # Pancreatitis with elevated Lipase # Enterocoltiis on CT # AMS due to Metabolic encephalopathy with . Possible subacute infarct in the left cerebellar hemisphere and cerebellar peduncle> much improved Plan - NPO per GI - mrcp pending> done today - [facility] for hypernatremia - iv fluids - cwcoreg - iv abx with vanco/meropenam/fllagyl, tobramycin/ diflucan per ID? taper abx per ID - no blood thinners due to anemia - GI prophylaxsis - monitor oral bleeding - Pending neuro recs - PT/OT/Speech Dispo pending MRCP and tapering off abx Result Diagram: 04/11/18 0632 04/11/18 0632 Results 24hrs Laboratory Tests Test 04/11/18 06:32 04/11/18 07:46 White Blood Count 5.1 # Red Blood Count 3.48 L Hemoglobin 9.8 L Hematocrit 30.2 L Mean Corpuscular Volume 86.8 Mean Corpuscular Hemoglobin 28.2 L Mean Corpuscular Hemoglobin Concent 32.5 Red Cell Distribution Width 15.8 H Platelet Count 209 Mean Platelet Volume 10.4 Immature Granulocytes % 0.600 H Neutrophils % 71.7 Lymphocytes % 7.1 L Monocytes % 17.6 H Eosinophils % 1.8 Basophils % 1.2 Nucleated Red Blood Cells % 0.0 Immature Granulocytes # 0.030 Neutrophils # 3.7 Lymphocytes # 0.4 L Monocytes # 0.9 Eosinophils # 0.1 Basophils # 0.1 Nucleated Red Blood Cells # 0.0 Sodium Level 143 Potassium Level 3.5 Chloride Level 119 H Carbon Dioxide Level 16 L Anion Gap 8 Blood Urea Nitrogen 21 H Creatinine 0.87 Est Glomerular Filtrat Rate mL/min > 60 Glucose Level 87 Calcium Level 8.6 Phosphorus Level 2.6 Magnesium Level 1.8 Total Bilirubin 0.1 L Direct Bilirubin 0.00 Indirect Bilirubin 0.1 Aspartate Amino Transf (AST/SGOT) 42 Alanine Aminotransferase (ALT/SGPT) 15 Alkaline Phosphatase 68 Total Protein 6.5 Albumin 2.7 L Globulin 3.80 H Albumin/Globulin Ratio 0.71 Lab Scanned Report BLOOD TRANSFUSION Subjective 24 Hr Interval Summary Free Text/Dictation no fevers pt much more awake Exam/Review of Systems Vital Signs Vitals Vital Signs Date Temp Pulse Resp B/P (MAP) Pulse Ox O2 O2 Flow FiO2 Time Delivery Rate 04/11/18 77 12:24 04/11/18 97.7 18 151/89 100 Nasal 11:52 (109) Cannula 04/11/18 30 05:52 Intake and Output 04/10/18 04/10/18 04/11/18 1515:00 23:00 07:00 IntakeIntake Total 1360 ml 200 ml OutputOutput Total 750 ml 300 ml BalanceBalance 610 ml -100 ml Exam onstitutional:Well-developed. Well-nourished., HEENT:Normocephalic. Atraumatic.Pupils were equal round reactive to light. ..+old dried blood around lips Neck: . Tracheostomy site clean dry and intact Respiratory: lungs clear Cardiovascular: tachycardic GI: Abdomen was soft. Nontender. Non Distended. No pulsatile abdominal masses or bruits. No rebound. No guarding. Bowel sounds were present and normal. Muscle skeletal: Muscle atrophy of the bilateral lower extremities. Patient has limited range of motion of the right upper and lower extremity but was able to flex extend at the elbow and lift his right upper extremity against gravity. Patient has no movement of the bilateral lower extremities multiple wounds rt PICC Medications Medications Current Medications Acetaminophen (Tylenol Tab) 1,000 mg Q4 PRN PO MODERATE PAIN LEVEL 4-6 Last administered on 04/07/18at 12:14; Admin Dose 1,000 MG; Start 03/31/18 at 18:00 Acetaminophen (Tylenol Tab) 650 mg Q4 PRN GTB MILD PAIN LEVEL 1-3 Last administered on 04/09/18 09:09; Admin Dose 650 MG; Start 03/31/18 at 18:00 Albuterol (Proventil 0.083% (Neb)) 2.5 mg Q3H PRN NEB WHEEZING AND SOB; Start 03/31/18 at 18:00 Albuterol (Proventil 0.083% (Neb)) 2.5 mg Q6 PRN NEB WHEEZING AND SOB; Start 03/31/18 at 18:00 Ascorbic Acid (Vitamin C) 500 mg DAILY GTB Last administered on 04/10/18 09:29; Admin Dose 500 MG; Start 04/01/18 at 09:00 Bisacodyl (Dulcolax Supp) 10 mg DAILY PRN [place] CONSTIPATION; Start 03/31/18 at 18:00 Multivit/Ca Carb/ B Cmplx/FA/Prenat (Sofy-Sandoval) 1 tab DAILY GTB Last administered on 04/10/18 09:29; Admin Dose 1 TAB; Start 04/01/18 at 09:00 Zinc Sulfate (Zinc Sulfate) 220 mg DAILY GTB Last administered on 04/10/18 09:29; Admin Dose 220 MG; Start 04/01/18 at 09:00 IV Flush (NS 3 ml) 3 ml PER PROTOCOL IV ; Start 03/31/18 at 18:30 Ondansetron HCl (Zofran Inj) 4 mg Q6H PRN IV NAUSEA AND/OR VOMITING; Start 03/31/18 at 18:30 Acetaminophen (Tylenol Tab) 650 mg Q6H PRN PO PAIN LEVEL 1-3 OR FEVER Last ad ministered on 04/06/18at 03:55; Admin Dose 650 MG; Start 03/31/18 at 18:30 Acetaminophen (Tylenol Supp) 650 mg Q6H PRN [place] PAIN LEVEL 1-3 OR FEVER Last administered on 04/02/18at 20:38; Admin Dose 650 MG; Start 03/31/18 at 18:30 Docusate Sodium (Colace) 100 mg Q12H PRN PO CONSTIPATION; Start 03/31/18 at 18:30 Vancomycin HCl (Vanco Iv Per Pharmacy) VANCOMYCIN PER PHARMACY PER PROTOCOL XX ; Start 04/01/18 at 13:00 Alteplase, Recombinant (Cathflo (Activase)) 2 mg MAY REPEAT X1 PRN CATHETER IF CATHETER REMAINS OCCULUDED Last administered on 04/03/18 04:24; Admin Dose 2 MG; Start 04/01/18 at 21:00 Fluconazole 100 ml @ 100 mls/hr Q24H IVPB Last administered on 04/10/18at 12:42; Admin Dose 100 MLS/HR; Start 04/02/18 at 12:00 Vancomycin HCl 250 ml @ 125 mls/hr Q24H IVPB Last administered on 04/11/18at 0 9:06; Admin Dose 125 MLS/HR; Start 04/03/18 at 09:00 Collagenase (Santyl) 1 applic DAILY TOP Last administered on 04/11/18at 08:57; Admin Dose 1 APPLIC; Start 04/03/18 at 12:00 Meropenem/Sodium Chloride 50 ml @ 100 mls/hr Q8 IVPB Last administered on 04/11/18 05:44; Admin Dose 100 MLS/HR; Start 04/04/18 at 22:00 Morphine Sulfate (morphine) 6 mg Q4H PRN GTB SEVERE PAIN LEVEL 6-10; Start 04/04/18 at 23:00 Lorazepam (Ativan) 2 mg Q4H PRN IV restless, agitation, anxiety Last administered on 04/08/18at 10:05; Admin Dose 2 MG; Start 04/05/18 at 10:00 Metronidazole (Flagyl) 500 mg Q8 NGT Last administered on 04/11/18at 05:44; Admin Dose 500 MG; Start 04/06/18 at 14:00 Pantoprazole (Protonix Iv) 40 mg BID@06,18 IV Last administered on 04/11/18at 05:43; Admin Dose 40 MG; Start 04/08/18 at 18:00 Polyethylene Glycol (Miralax) 17 gm DAILY GTB Last administered on 04/09/18 09:07; Admin Dose 17 GM; Start 04/08/18 at 09:00 Carvedilol (Coreg) 50 mg BID GTB Last administered on 04/10/18 21:28; Admin Dose 50 MG; Start 04/08/18 at 21:00 Dextrose/Sodium Chloride 1,000 ml @ 70 mls/hr [id number] IV Last administered on 1/16/19at 19:01; Admin Dose 70 MLS/HR; Start 04/08/18 at 11:30 Tobramycin Sulfate/Sodium Chloride (Joey Inhal) 300 mg BID RESP THERAPY NEB Last administered on 04/11/18at 09:36; Admin Dose 300 MG; Start 04/09/18 at 09:00 TAMARA GRAJEDA MD Apr 11, 2018 12:39
--- NOTE | 2018-04-11 12:53 | CONS ---
Date/Time of Note Date/Time of Note DATE: 04/11/18 TIME: 11:52 Assessment/Plan Assessment/Plan Hospital Course No acute changes overnight, no fevers Microbiology: Blood cultures remain negative. Urine culture positive for Breanne albicans. Endotracheal aspirate growing gram-negative rods. Sacral wound culture growing MRSA, Breanne albicans, enterococcus, gram-negative rods. Nares swab positive for MRSA CT of the abdomen and pelvis revealed questionable enterocolitis. Cholelithiasis. Tiny bilateral pleural effusions with bibasilar airspace disease. Indwelling: Peg, Schwartz, right upper extremity PICC line, tracheostomy Antimicrobials: Flagyl, meropenem, vancomycin, fluconazole, tobramycin inhalation Physical examination: Chronically ill-appearing elderly man who is noncommunicative in no distress. Head atraumatic normocephalic sclera nonicteric neck is supple tracheostomy present chest rise symmetrical breath sounds diminished bases heart: S1-S2. Abdomen soft bowel sounds present. Extremities without cyanosis. Skin: Patient has multiple pressure sores he has a dry blood on the right lower lip Assessment: 1. Sepsis with ongoing fevers 2. Acute pancreatitis, CT of the abdomen revealed no abscess, no pseudocyst 3. S/p Breanne albicans UTI 4. History of cardiomyopathy 5. Chronic respiratory failure 6. S/p gingival bleeding 7. Sacral decub 8. MRSA nares colonization 9. Possible enterocolitis and sinusitis Plan: Clinically unchanged, afebrile for 48 hrs, will dc abx, keep on Tobra INH Result Diagram: 04/11/18 0632 04/11/18 0632 Results 24hrs Laboratory Tests Test 04/11/18 06:32 04/11/18 07:46 White Blood Count 5.1 # Red Blood Count 3.48 L Hemoglobin 9.8 L Hematocrit 30.2 L Mean Corpuscular Volume 86.8 Mean Corpuscular Hemoglobin 28.2 L Mean Corpuscular Hemoglobin Concent 32.5 Red Cell Distribution Width 15.8 H Platelet Count 209 Mean Platelet Volume 10.4 Immature Granulocytes % 0.600 H Neutrophils % 71.7 Lymphocytes % 7.1 L Monocytes % 17.6 H Eosinophils % 1.8 Basophils % 1.2 Nucleated Red Blood Cells % 0.0 Immature Granulocytes # 0.030 Neutrophils # 3.7 Lymphocytes # 0.4 L Monocytes # 0.9 Eosinophils # 0.1 Basophils # 0.1 Nucleated Red Blood Cells # 0.0 Sodium Level 143 Potassium Level 3.5 Chloride Level 119 H Carbon Dioxide Level 16 L Anion Gap 8 Blood Urea Nitrogen 21 H Creatinine 0.87 Est Glomerular Filtrat Rate mL/min > 60 Glucose Level 87 Calcium Level 8.6 Phosphorus Level 2.6 Magnesium Level 1.8 Total Bilirubin 0.1 L Direct Bilirubin 0.00 Indirect Bilirubin 0.1 Aspartate Amino Transf (AST/SGOT) 42 Alanine Aminotransferase (ALT/SGPT) 15 Alkaline Phosphatase 68 Total Protein 6.5 Albumin 2.7 L Globulin 3.80 H Albumin/Globulin Ratio 0.71 Lab Scanned Report BLOOD TRANSFUSION Consultation Date/Type/Reason Admit Date/Time Mar 31, 2018 at 17:58 Initial Consult Date 04/02/18 Type of Consult id Requesting Provider: TAMARA GRAJEDA MD Exam/Review of Systems Vital Signs Vitals Vital Signs Date Temp Pulse Resp B/P (MAP) Pulse Ox O2 O2 Flow FiO2 Time Delivery Rate 04/11/18 76 08:46 04/11/18 16 150/88 100 Mechanical 07:28 (108) Ventilator 04/11/18 98.6 07:21 04/11/18 30 05:52 Intake and Output 04/10/18 04/10/18 04/11/18 1515:00 23:00 07:00 IntakeIntake Total 1360 ml 200 ml OutputOutput Total 750 ml 300 ml BalanceBalance 610 ml -100 ml Medications Medications Current Medications Acetaminophen (Tylenol Tab) 1,000 mg Q4 PRN PO MODERATE PAIN LEVEL 4-6 Last administered on 04/07/18at 12:14; Admin Dose 1,000 MG; Start 03/31/18 at 18:00 Acetaminophen (Tylenol Tab) 650 mg Q4 PRN GTB MILD PAIN LEVEL 1-3 Last administered on 04/09/18at 09:09; Admin Dose 650 MG; Start 03/31/18 at 18:00 Albuterol (Proventil 0.083% (Neb)) 2.5 mg Q3H PRN NEB WHEEZING AND SOB; Start 03/31/18 at 18:00 Albuterol (Proventil 0.083% (Neb)) 2.5 mg Q6 PRN NEB WHEEZING AND SOB; Start 03/31/18 at 18:00 Ascorbic Acid (Vitamin C) 500 mg DAILY GTB Last administered on 04/10/18 09:29; Admin Dose 500 MG; Start 04/01/18 at 09:00 Bisacodyl (Dulcolax Supp) 10 mg DAILY PRN OR CONSTIPATION; Start 03/31/18 at 18:00 Multivit/Ca Carb/ B Cmplx/FA/Prenat (Sofy-Sandoval) 1 tab DAILY GTB Last administered on 04/10/18 09:29; Admin Dose 1 TAB; Start 04/01/18 at 09:00 Zinc Sulfate (Zinc Sulfate) 220 mg DAILY GTB Last administered on 04/10/18 09:29; Admin Dose 220 MG; Start 04/01/18 at 09:00 IV Flush (NS 3 ml) 3 ml PER PROTOCOL IV ; Start 03/31/18 at 18:30 Ondansetron HCl (Zofran Inj) 4 mg Q6H PRN IV NAUSEA AND/OR VOMITING; Start 03/31/18 at 18:30 Acetaminophen (Tylenol Tab) 650 mg Q6H PRN PO PAIN LEVEL 1-3 OR FEVER Last administered on 04/06/18 03:55; Admin Dose 650 MG; Start 03/31/18 at 18:30 Acetaminophen (Tylenol Supp) 650 mg Q6H PRN OR PAIN LEVEL 1-3 OR FEVER Last administered on 04/02/18 20:38; Admin Dose 650 MG; Start 03/31/18 at 18:30 Docusate Sodium (Colace) 100 mg Q12H PRN PO CONSTIPATION; Start 03/31/18 at 18:30 Vancomycin HCl (Vanco Iv Per Pharmacy) VANCOMYCIN PER PHARMACY PER PROTOCOL XX ; Start 04/01/18 at 13:00 Alteplase, Recombinant (Cathflo (Activase)) 2 mg MAY REPEAT X1 PRN CATHETER IF CATHETER REMAINS OCCULUDED Last administered on 04/03/18at 04:24; Admin Dose 2 MG; Start 04/01/18 at 21:00 Fluconazole 100 ml @ 100 mls/hr Q24H IVPB Last administered on 04/10/18at 12:42; Admin Dose 100 MLS/HR; Start 04/02/18 at 12:00 Vancomycin HCl 250 ml @ 125 mls/hr Q24H IVPB Last administered on 04/11/18at 09:06; Admin Dose 125 MLS/HR; Start 04/03/18 at 09:00 Collagenase (Santyl) 1 applic DAILY TOP Last administered on 04/11/18 08:57; Admin Dose 1 APPLIC; Start 04/03/18 at 12:00 Meropenem/Sodium Chloride 50 ml @ 100 mls/hr Q8 IVPB Last administered on 04/11/18 05:44; Admin Dose 100 MLS/HR; Start 04/04/18 at 22:00 Morphine Sulfate (morphine) 6 mg Q4H PRN GTB SEVERE PAIN LEVEL 6-10; Start 04/04/18 at 23:00 Lorazepam (Ativan) 2 mg Q4H PRN IV restless, agitation, anxiety Last administered on 04/08/18 10:05; Admin Dose 2 MG; Start 04/05/18 at 10:00 Metronidazole (Flagyl) 500 mg Q8 NGT Last administered on 04/11/18 05:44; Admin Dose 500 MG; Start 04/06/18 at 14:00 Pantoprazole (Protonix Iv) 40 mg BID@06,18 IV Last administered on 04/11/18 05:43; Admin Dose 40 MG; Start 04/08/18 at 18:00 Polyethylene Glycol (Miralax) 17 gm DAILY GTB Last administered on 04/09/18 09:07; Admin Dose 17 GM; Start 04/08/18 at 09:00 Carvedilol (Coreg) 50 mg BID GTB Last administered on 04/10/18 21:28; Admin Dose 50 MG; Start 04/08/18 at 21:00 Dextrose/Sodium Chloride 1,000 ml @ 70 mls/hr [id number] IV Last administered on 04/10/18 19:01; Admin Dose 70 MLS/HR; Start 04/08/18 at 11:30 Tobramycin Sulfate/Sodium Chloride (Joey Inhal) 300 mg BID RESP THERAPY NEB Last administered on 04/11/18 09:36; Admin Dose 300 MG; Start 04/09/18 at 09:00 RENÉ GARCIA NP Apr 11, 2018 12:02
--- NOTE | 2018-04-11 14:05 | CONS ---
Assessment/Plan Assessment/Plan Hospital Course 62 M c/ Hx of methamphetamine/ETOH abuse c/b cirrhosis and dilated cardiomyopathy... and other comorbidities, admitted for evaluation of gingival bleeding..and fevers.... Neurology is consulted to evaluate chronic encephalopathy and assess prognosis for meaningful neurologic recovery.. Per OSH Records reviewed: On 02/2018 he was admitted to [facility] for severe EtOH intoxication, ams and agitation...following a ETOH/drug detox admission at [facility] days earlier.. He was then found to be severely hypoxic d/t multilobar PNA and subsequently intubated for acute respiratory failure. He was protractedly comatose following intubation, prompting an LP that was inconclusive and an EEG (with a missing report). He was ultimately trached, peg'd and discharged to a facility for continued c are. There is no indication of cardiac arrest, or prolonged hypoxic cerebral injury.. His prognosis for meaningful neurologic recovery is, thus, guarded (ie wholly dependent on medical improvement). As an aside, he likely today has a superimposed acute toxic-metabolic on chronic encephalopathy.. MRI brain is concerning for a subacute cerebellar infarction, though it is limi jose by motion.. EEG is notable for severe diffuse slowing but is without epileptiform activity. P: Start asa for secondary stroke prevention when medically able (ie severe anemia and gingival hemorrhage are solved..); LDL is at goal... Continued medical management and supportive care per primary Limit sedating medications where possible PT/OT/ST as able Will follow Result Diagram: 04/11/18 0632 04/11/18 0632 Results 24hrs Laboratory Tests Test 04/11/18 06:32 04/11/18 07:46 White Blood Count 5.1 # Red Blood Count 3.48 L Hemoglobin 9.8 L Hematocrit 30.2 L Mean Corpuscular Volume 86.8 Mean Corpuscular Hemoglobin 28.2 L Mean Corpuscular Hemoglobin Concent 32.5 Red Cell Distribution Width 15.8 H Platelet Count 209 Mean Platelet Volume 10.4 Immature Granulocytes % 0.600 H Neutrophils % 71.7 Lymphocytes % 7.1 L Monocytes % 17.6 H Eosinophils % 1.8 Basophils % 1.2 Nucleated Red Blood Cells % 0.0 Immature Granulocytes # 0.030 Neutrophils # 3.7 Lymphocytes # 0.4 L Monocytes # 0.9 Eosinophils # 0.1 Basophils # 0.1 Nucleated Red Blood Cells # 0.0 Sodium Level 143 Potassium Level 3.5 Chloride Level 119 H Carbon Dioxide Level 16 L Anion Gap 8 Blood Urea Nitrogen 21 H Creatinine 0.87 Est Glomerular Filtrat Rate mL/min > 60 Glucose Level 87 Calcium Level 8.6 Phosphorus Level 2.6 Magnesium Level 1.8 Total Bilirubin 0.1 L Direct Bilirubin 0.00 Indirect Bilirubin 0.1 Aspartate Amino Transf (AST/SGOT) 42 Alanine Aminotransferase (ALT/SGPT) 15 Alkaline Phosphatase 68 Total Protein 6.5 Albumin 2.7 L Globulin 3.80 H Albumin/Globulin Ratio 0.71 Lab Scanned Report BLOOD TRANSFUSION Consultation Date/Type/Reason Admit Date/Time Mar 31, 2018 at 17:58 Type of Consult Neurology Requesting Provider: TAMARA GRAJEDA MD Date/Time of Note DATE: 04/11/18 TIME: 14:05 24 HR Interval Summary Free Text/Dictation Continues telemetry monitoring. No acute events or changes in pt condition reported. Exam Vital Signs Vitals Vital Signs Date Temp Pulse Resp B/P (MAP) Pulse Ox O2 O2 Flow FiO2 Time Delivery Rate 04/11/18 77 12:24 04/11/18 97.7 18 151/89 100 Nasal 11:52 (109) Cannula 04/11/18 30 05:52 Intake and Output 04/10/18 04/10/18 04/11/18 1515:00 23:00 07:00 IntakeIntake Total 1360 ml 200 ml OutputOutput Total 750 ml 300 ml BalanceBalance 610 ml -100 ml Exam PE: Gen Appearance: No Apparent Distress; dried blood around lower lip HEENT: Trach Cardiovascular: Regular rate Respiratory: Tachypneic Abdomen: Soft Extremities: Dry NE: The patient was lethargic and nonverbal. Opens eyes to voice. Tries to mouth words occasionally. Able to fix; follows simple appendicular commands for family. Cranial nerve examination was limited by mental status. Pupils were equal and reactive to light. There was no afferent pupillary defect. Funduscopic examinat ion was limited. Face was grossly symmetric, w/ present corneal and cough reflexes. Tone was normal. Muscle bulk was reduced. I did not see fasciculations. The patient was moving his extremities spontaneously, BUE symmetrically and BLE (L<R) Coordination and gait testing was limited by mental status. Arm and leg reflexes were within normal limits and symmetric. Maguire's sign was absent. Plantar responses were flexor. ANURAG PRESSLEY NP Apr 11, 2018 14:05 MANDO PINO Apr 13, 2018 07:57
[2018-04-11] MEDS: DEXTROSE 5%-0.45% NACL 1,000 ML IV SCH (18:01)
[2018-04-11] MEDS: morphine LIQ (10 MG/5 ML) CUP GTB PRN (21:03)
[2018-04-11] MEDS: LORAZEPAM 2 MG INJ IV PRN (22:15)
[2018-04-12] VITALS (27 sets, daily range): BP systolic 107–170; BP diastolic 71–116; PULSE 66–101; RESP 16–32
[2018-04-12] MEDS: DEXTROSE 5%-0.45% NACL 1,000 ML IV SCH ×2 (01:47→08:47)
[2018-04-12] MEDS: PANTOPRAZOLE 40 MG INJ IV SCH ×2 (06:15→17:56)
--- NOTE | 2018-04-12 08:59 | CONS ---
Date/Time of Note Date/Time of Note DATE: 04/12/18 TIME: 08:51 Assessment/Plan Assessment/Plan Hospital Course 62 male with excessively bleeding gingival tissue and severe anemia 1. Severe acute on chronic anemia likely due to blood loss from #2 2. Excessive bleeding from gingival tissue 3. Chronic liver disease, alcohol related 4. Mild coagulopathy 5. Pancreatitis -lipid panel wnl -CBD 6mm, LFT wnl -monitor lipase and amylase and LFTs 6. Chronic kidney disease -BUN/lean coach wnl 7. Encephalopathy secondary to anoxic brain injury 8. H/o duodenal ulcer Plan: MRCP stat C diff Increase IVF to 125cc/hr Continue NPO x medications and no tube feeds Monitor lipase and amylase Monitor LFTs Bowel regimen Monitor HH and replace with PRBC as needed PPI BID Pt examined and plan of care discussed with Dr. Peña Result Diagram: 04/12/18 0544 04/12/18 0544 Results 24hrs Laboratory Tests Test 04/12/18 05:44 04/12/18 06:56 White Blood Count 5.9 Red Blood Count 3.59 L Hemoglobin 10.0 L Hematocrit 31.5 L Mean Corpuscular Volume 87.7 Mean Corpuscular Hemoglobin 27.9 L Mean Corpuscular Hemoglobin Concent 31.7 L Red Cell Distribution Width 15.8 H Platelet Count 216 Mean Platelet Volume 10.3 Immature Granulocytes % 0.500 H Neutrophils % 66.3 Lymphocytes % 8.7 L Monocytes % 19.5 H Eosinophils % 3.6 Basophils % 1.4 Nucleated Red Blood Cells % 0.0 Immature Granulocytes # 0.030 Neutrophils # 3.9 Lymphocytes # 0.5 L Monocytes # 1.2 H Eosinophils # 0.2 Basophils # 0.1 Nucleated Red Blood Cells # 0.0 Sodium Level 143 Potassium Level 3.3 L Chloride Level 116 H Carbon Dioxide Level 19 L Anion Gap 8 Blood Urea Nitrogen 16 Creatinine 0.82 Est Glomerular Filtrat Rate mL/min > 60 Glucose Level 98 Calcium Level 8.4 Phosphorus Level 2.8 Magnesium Level 1.8 Total Bilirubin 0.0 L Direct Bilirubin 0.00 Indirect Bilirubin 0.0 Aspartate Amino Transf (AST/SGOT) 42 Alanine Aminotransferase (ALT/SGPT) 16 Alkaline Phosphatase 62 Total Protein 6.2 Albumin 2.6 L Globulin 3.60 H Albumin/Globulin Ratio 0.72 Amylase Level 966 H Lipase 6028 H Lab Scanned Report REFERENCE LAB Consultation Date/Type/Reason Admit Date/Time Mar 31, 2018 at 17:58 Initial Consult Date 04/02/18 Requesting Provider: TAMARA GRAJEDA MD 24 HR Interval Summary Free Text/Dictation Pt agitated overnight, restrained. Currently no non verbal cues to pain when abdomen palpated. BM yesterday wnl. Lipase and amylase jumped up to 6028 and amylase 966. IVF 70. BUN/cloth piecer 16/0.82. Exam/Review of Systems Vital Signs Vitals Vital Signs Date Temp Pulse Resp B/P (MAP) Pulse Ox O2 O2 Flow FiO2 Time Delivery Rate 04/12/18 67 08:45 04/12/18 98.2 16 107/74 100 Mechanical 08:16 (85) Ventilator 04/12/18 30 05:51 Intake and Output 04/11/18 04/11/18 04/12/18 1515:00 23:00 07:00 IntakeIntake Total 250 ml 600 ml 500 ml OutputOutput Total 600 ml BalanceBalance 250 ml 0 ml 500 ml Exam ENMT: other (small amount of dark dried blood on lower right side of lip) Respiratory: diminished breath sounds Cardiovascular: regular rate and rhythm Gastrointestinal: soft, other (no non verbal cues to pain when abdomen palpated) Medications Medications Current Medications Acetaminophen (Tylenol Tab) 1,000 mg Q4 PRN PO MODERATE PAIN LEVEL 4-6 Last administered on 04/07/18at 12:14; Admin Dose 1,000 MG; Start 03/31/18 at 18:00 Acetaminophen (Tylenol Tab) 650 mg Q4 PRN GTB MILD PAIN LEVEL 1-3 Last administered on 04/09/18at 09:09; Admin Dose 650 MG; Start 03/31/18 at 18:00 Albuterol (Proventil 0.083% (Neb)) 2.5 mg Q3H PRN NEB WHEEZING AND SOB; Start 03/31/18 at 18:00 Albuterol (Proventil 0.083% (Neb)) 2.5 mg Q6 PRN NEB WHEEZING AND SOB; Start 03/31/18 at 18:00 Ascorbic Acid (Vitamin C) 500 mg DAILY GTB Last administered on 04/10/18at 09:29; Admin Dose 500 MG; Start 04/01/18 at 09:00 Bisacodyl (Dulcolax Supp) 10 mg DAILY PRN [place] CONSTIPATION; Start 03/31/18 at 18:00 Multivit/Ca Carb/ B Cmplx/FA/Prenat (Sofy-Sandoval) 1 tab DAILY GTB Last administered on 04/10/18 09:29; Admin Dose 1 TAB; Start 04/01/18 at 09:00 Zinc Sulfate (Zinc Sulfate) 220 mg DAILY GTB Last administered on 04/10/18 09:29; Admin Dose 220 MG; Start 04/01/18 at 09:00 IV Flush (NS 3 ml) 3 ml PER PROTOCOL IV ; Start 03/31/18 at 18:30 Ondansetron HCl (Zofran Inj) 4 mg Q6H PRN IV NAUSEA AND/OR VOMITING; Start 03/31/18 at 18:30 Acetaminophen (Tylenol Tab) 650 mg Q6H PRN PO PAIN LEVEL 1-3 OR FEVER Last administered on 04/06/18 03:55; Admin Dose 650 MG; Start 03/31/18 at 18:30 Acetaminophen (Tylenol Supp) 650 mg Q6H PRN [place] PAIN LEVEL 1-3 OR FEVER Last administered on 04/02/18 20:38; Admin Dose 650 MG; Start 03/31/18 at 18:30 Docusate Sodium (Colace) 100 mg Q12H PRN PO CONSTIPATION; Start 03/31/18 at 18:30 Alteplase, Recombinant (Cathflo (Activase)) 2 mg MAY REPEAT X1 PRN CATHETER IF CATHETER REMAINS OCCULUDED Last administered on 04/03/18 04:24; Admin Dose 2 MG; Start 04/01/18 at 21:00 Collagenase (Santyl) 1 applic DAILY TOP Last administered on 04/11/18 08:57; Admin Dose 1 APPLIC; Start 04/03/18 at 12:00 Morphine Sulfate (morphine) 6 mg Q4H PRN GTB SEVERE PAIN LEVEL 6-10 Last administered on 04/11/18 21:03; Admin Dose 6 MG; Start 04/04/18 at 23:00 Lorazepam (Ativan) 2 mg Q4H PRN IV restless, agitation, anxiety Last adminis tered on 04/11/18 22:15; Admin Dose 2 MG; Start 04/05/18 at 10:00 Pantoprazole (Protonix Iv) 40 mg BID@06,18 IV Last administered on 04/12/18at 06:15; Admin Dose 40 MG; Start 04/08/18 at 18:00 Polyethylene Glycol (Miralax) 17 gm DAILY GTB Last administered on 04/09/18at 09:07; Admin Dose 17 GM; Start 04/08/18 at 09:00 Carvedilol (Coreg) 50 mg BID GTB Last administered on 04/11/18at 20:58; Admin D ose 50 MG; Start 04/08/18 at 21:00 Dextrose/Sodium Chloride 1,000 ml @ 70 mls/hr [id number] IV Last administered on 04/12/18 08:47; Admin Dose 70 MLS/HR; Start 04/08/18 at 11:30 Tobramycin Sulfate/Sodium Chloride (Joey Inhal) 300 mg BID RESP THERAPY NEB Last administered on 04/11/18 19:42; Admin Dose 300 MG; Start 04/09/18 at 09:00 QI CHRISTIANSON Apr 12, 2018 08:59
[2018-04-12] MEDS: ZINC SULFATE 220 MG CAP GTB SCH (09:00)
[2018-04-12] MEDS: TOBRAMYCIN/0.25NS 300 MG/5 ML INHAL NEB SCH ×2 (09:00→20:29)
[2018-04-12] MEDS: MULTIVIT/CA CARB/B CMPLX/FA TAB GTB SCH (09:00)
[2018-04-12] MEDS: ASCORBIC ACID 500 MG TAB GTB SCH (09:00)
[2018-04-12] MEDS: POLYETHYLENE GLYCOL 17 GM PACKET GTB SCH (09:00)
[2018-04-12] MEDS: BALSAM PERU/CASTOR OIL 60 GM TUBE TOP SCH ×2 (09:01→21:11)
[2018-04-12] MEDS: COLLAGENASE 5 GM (UD JAR) TOP SCH (09:01)
[2018-04-12] MEDS: LACTATED RINGER'S 1,000 ML IV SCH ×3 (09:32→21:04)
--- NOTE | 2018-04-12 12:28 | CONS ---
Date/Time of Note Date/Time of Note DATE: 04/12/18 TIME: 12:27 Consult Date/Type/Reason Admit Date/Time Mar 31, 2018 at 17:58 Initial Consult Date 04/02/18 Type of Consultation: Pulmonary Requesting Provider: TAMARA GRAJEDA MD Subjective Comfortable, no resp disress. Objective Vital Signs Date Temp Pulse Resp B/P (MAP) Pulse Ox O2 O2 Flow FiO2 Time Delivery Rate 04/12/18 98.5 67 16 125/80 100 Mechanical 12:03 (95) Ventilator 04/12/18 30 11:22 Intake and Output 04/11/18 04/11/18 04/12/18 1515:00 23:00 07:00 IntakeIntake Total 250 ml 600 ml 500 ml OutputOutput Total 600 ml BalanceBalance 250 ml 0 ml 500 ml Exam PHYSICAL EXAMINATION GENERAL: Chronically ill-appearing gentleman VITAL SIGNS: see below. HEENT: Pupils equal, round, and reactive to light. CARDIAC: S1, S2, 1/6 systolic ejection murmur CHEST: Diminished air entry bilaterally. ABDOMEN: Mildly distended. Bowel sounds present no guarding or rebound EXTREMITIES: No cyanosis, clubbing edema +1 NEUROLOGIC: Generalized weakness Results/Medications Result Diagram: 04/12/18 0544 04/12/18 0544 Results 24 hrs Laboratory Tests Test 04/12/18 05:44 04/12/18 06:56 White Blood Count 5.9 Red Blood Count 3.59 L Hemoglobin 10.0 L Hematocrit 31.5 L Mean Corpuscular Volume 87.7 Mean Corpuscular Hemoglobin 27.9 L Mean Corpuscular Hemoglobin Concent 31.7 L Red Cell Distribution Width 15.8 H Platelet Count 216 Mean Platelet Volume 10.3 Immature Granulocytes % 0.500 H Neutrophils % 66.3 Lymphocytes % 8.7 L Monocytes % 19.5 H Eosinophils % 3.6 Basophils % 1.4 Nucleated Red Blood Cells % 0.0 Immature Granulocytes # 0.030 Neutrophils # 3.9 Lymphocytes # 0.5 L Monocytes # 1.2 H Eosinophils # 0.2 Basophils # 0.1 Nucleated Red Blood Cells # 0.0 Sodium Level 143 Potassium Level 3.3 L Chloride Level 116 H Carbon Dioxide Level 19 L Anion Gap 8 Blood Urea Nitrogen 16 Creatinine 0.82 Est Glomerular Filtrat Rate mL/min > 60 Glucose Level 98 Calcium Level 8.4 Phosphorus Level 2.8 Magnesium Level 1.8 Total Bilirubin 0.0 L Direct Bilirubin 0.00 Indirect Bilirubin 0.0 Aspartate Amino Transf (AST/SGOT) 42 Alanine Aminotransferase (ALT/SGPT) 16 Alkaline Phosphatase 62 Total Protein 6.2 Albumin 2.6 L Globulin 3.60 H Albumin/Globulin Ratio 0.72 Amylase Level 966 H Lipase 6028 H Lab Scanned Report REFERENCE LAB Medications Current Medications Acetaminophen (Tylenol Tab) 1,000 mg Q4 PRN PO MODERATE PAIN LEVEL 4-6 Last administered on 04/07/18at 12:14; Admin Dose 1,000 MG; Start 03/31/18 at 18:00 Acetaminophen (Tylenol Tab) 650 mg Q4 PRN GTB MILD PAIN LEVEL 1-3 Last administered on 04/09/18 09:09; Admin Dose 650 MG; Start 03/31/18 at 18:00 Albuterol (Proventil 0.083% (Neb)) 2.5 mg Q3H PRN NEB WHEEZING AND SOB; Start 03/31/18 at 18:00 Albuterol (Proventil 0.083% (Neb)) 2.5 mg Q6 PRN NEB WHEEZING AND SOB; Start 03/31/18 at 18:00 Ascorbic Acid (Vitamin C) 500 mg DAILY GTB Last administered on 04/12/18at 09:00; Admin Dose 500 MG; Start 04/01/18 at 09:00 Bisacodyl (Dulcolax Supp) 10 mg DAILY PRN [place] CONSTIPATION; Start 03/31/18 at 18:00 Multivit/Ca Carb/ B Cmplx/FA/Prenat (Sofy-Sandoval) 1 tab DAILY GTB Last administered on 04/12/18at 09:00; Admin Dose 1 TAB; Start 04/01/18 at 09:00 Zinc Sulfate (Zinc Sulfate) 220 mg DAILY GTB Last administered on 04/12/18at 09:00; Admin Dose 220 MG; Start 04/01/18 at 09:00 IV Flush (NS 3 ml) 3 ml PER PROTOCOL IV ; Start 03/31/18 at 18:30 Ondansetron HCl (Zofran Inj) 4 mg Q6H PRN IV NAUSEA AND/OR VOMITING; Start 03/31/18 at 18:30 Acetaminophen (Tylenol Tab) 650 mg Q6H PRN PO PAIN LEVEL 1-3 OR FEVER Last a dministered on 04/06/18 03:55; Admin Dose 650 MG; Start 03/31/18 at 18:30 Acetaminophen (Tylenol Supp) 650 mg Q6H PRN DE PAIN LEVEL 1-3 OR FEVER Last administered on 04/02/18 20:38; Admin Dose 650 MG; Start 03/31/18 at 18:30 Docusate Sodium (Colace) 100 mg Q12H PRN PO CONSTIPATION; Start 03/31/18 at 18:30 Alteplase, Recombinant (Cathflo (Activase)) 2 mg MAY REPEAT X1 PRN CATHETER IF CATHETER REMAINS OCCULUDED Last administered on 04/03/18 04:24; Admin Dose 2 MG; Start 04/01/18 at 21:00 Collagenase (Santyl) 1 applic DAILY TOP Last administered on 04/12/18 09:01; Admin Dose 1 APPLIC; Start 04/03/18 at 12:00 Morphine Sulfate (morphine) 6 mg Q4H PRN GTB SEVERE PAIN LEVEL 6-10 Last administered on 04/11/18 21:03; Admin Dose 6 MG; Start 04/04/18 at 23:00 Lorazepam (Ativan) 2 mg Q4H PRN IV restless, agitation, anxiety Last administered on 04/11/18 22:15; Admin Dose 2 MG; Start 04/05/18 at 10:00 Pantoprazole (Protonix Iv) 40 mg BID@06,18 IV Last administered on 04/12/18 06:15; Admin Dose 40 MG; Start 04/08/18 at 18:00 Polyethylene Glycol (Miralax) 17 gm DAILY GTB Last administered on 04/09/18 09:07; Admin Dose 17 GM; Start 04/08/18 at 09:00 Carvedilol (Coreg) 50 mg BID GTB Last administered on 04/12/18 09:00; Admin Dose 50 MG; Start 04/08/18 at 21:00 Dextrose/Sodium Chloride 1,000 ml @ 70 mls/hr [id number] IV Last administered on 04/12/18 08:47; Admin Dose 70 MLS/HR; Start 04/08/18 at 11:30 Tobramycin Sulfate/Sodium Chloride (Joey Inhal) 300 mg BID RESP THERAPY NEB Last administered on 1/17/19at 19:42; Admin Dose 300 MG; Start 04/09/18 at 09:00 Lactated Ringer's 1,000 ml @ 125 mls/hr Q8H IV Last administered on 04/12/18at 09:32; Admin Dose 125 MLS/HR; Start 04/12/18 at 09:00 Assessment/Plan Chief Complaint/Hosp Course Assessment 1. Vent dependent respiratory failure 2. Anemia from upper airway bleed 3. Chronic encephalopathy 4. Dysphagia with G-tube Plan 1. Monitor H&H 2. Continue mechanical ventilation 3. GI recs 4. DVT and GI prophylaxis dc planning ? SIRIA PISANO MD, [facility] Apr 12, 2018 12:28
--- NOTE | 2018-04-12 13:12 | PN ---
Date/Time of Note Date/Time of Note DATE: 04/12/18 TIME: 13:10 Assessment/Plan VTE Prophylaxis Risk score (from Ns)>0 risk: 8 SCD applied (from [facility]): Yes Pharmacological prophylaxis: NA/contraindicated Pharm contraindication: bleeding Lines/Catheters IV Catheter Type (from [facility]): PICC Line Central line still needed: Yes Urinary Cath still in place: Yes Reason Cath still needed: urinary retention Assessment/Plan Hospital Course # Oral gingival bleeding likely due to dentures, seen by ENT s/p endoscopy # Sepsis with Fevers with hx Pneumonia +UTI and ? Pancreatitis +multiple wounds, ucx+ lisa # Blood loss anemia due to #1 # VDRF # CKD with worseing renal failure # Metabolic acidosis # DILATED CARDIOMYOPATHY # HX ALCOHOL ABUSE # Multiple wounds > decub # hypomagnesemia Assessment/Plan - NPO per GI - mrcp pending> done today - [facility] for hypernatremia - iv fluids - cwcoreg - iv abx with vanco/meropenam/fllagyl, tobramycin/ diflucan per ID? taper abx per ID - no blood thinners due to anemia - GI prophylaxsis - monitor oral bleeding - Pending neuro recs - PT/OT/Speech -Dispo pending MRCP and tapering off abx Result Diagram: 04/12/18 0544 04/12/18 0544 Results 24hrs Laboratory Tests Test 04/12/18 05:44 04/12/18 06:56 White Blood Count 5.9 Red Blood Count 3.59 L Hemoglobin 10.0 L Hematocrit 31.5 L Mean Corpuscular Volume 87.7 Mean Corpuscular Hemoglobin 27.9 L Mean Corpuscular Hemoglobin Concent 31.7 L Red Cell Distribution Width 15.8 H Platelet Count 216 Mean Platelet Volume 10.3 Immature Granulocytes % 0.500 H Neutrophils % 66.3 Lymphocytes % 8.7 L Monocytes % 19.5 H Eosinophils % 3.6 Basophils % 1.4 Nucleated Red Blood Cells % 0.0 Immature Granulocytes # 0.030 Neutrophils # 3.9 Lymphocytes # 0.5 L Monocytes # 1.2 H Eosinophils # 0.2 Basophils # 0.1 Nucleated Red Blood Cells # 0.0 Sodium Level 143 Potassium Level 3.3 L Chloride Level 116 H Carbon Dioxide Level 19 L Anion Gap 8 Blood Urea Nitrogen 16 Creatinine 0.82 Est Glomerular Filtrat Rate mL/min > 60 Glucose Level 98 Calcium Level 8.4 Phosphorus Level 2.8 Magnesium Level 1.8 Total Bilirubin 0.0 L Direct Bilirubin 0.00 Indirect Bilirubin 0.0 Aspartate Amino Transf (AST/SGOT) 42 Alanine Aminotransferase (ALT/SGPT) 16 Alkaline Phosphatase 62 Total Protein 6.2 Albumin 2.6 L Globulin 3.60 H Albumin/Globulin Ratio 0.72 Amylase Level 966 H Lipase 6028 H Lab Scanned Report REFERENCE LAB Subjective 24 Hr Interval Summary Subjective hx not possible: pt non-verbal Exam/Review of Systems Vital Signs Vitals Vital Signs Date Temp Pulse Resp B/P (MAP) Pulse Ox O2 O2 Flow FiO2 Time Delivery Rate 04/12/18 98.5 67 16 125/80 100 Mechanical 12:03 (95) Ventilator 04/12/18 30 11:22 Intake and Output 04/11/18 04/11/18 04/12/18 1515:00 23:00 07:00 IntakeIntake Total 250 ml 600 ml 500 ml OutputOutput Total 600 ml BalanceBalance 250 ml 0 ml 500 ml Exam Constitutional: alert Cardiovascular: regular rate and rhythm Gastrointestinal: soft, other (GT) Medications Medications Current Medications Acetaminophen (Tylenol Tab) 1,000 mg Q4 PRN PO MODERATE PAIN LEVEL 4-6 Last administered on 04/07/18at 12:14; Admin Dose 1,000 MG; Start 03/31/18 at 18:00 Acetaminophen (Tylenol Tab) 650 mg Q4 PRN GTB MILD PAIN LEVEL 1-3 Last administered on 04/09/18at 09:09; Admin Dose 650 MG; Start 03/31/18 at 18:00 Albuterol (Proventil 0.083% (Neb)) 2.5 mg Q3H PRN NEB WHEEZING AND SOB; Start 03/31/18 at 18:00 Albuterol (Proventil 0.083% (Neb)) 2.5 mg Q6 PRN NEB WHEEZING AND SOB; Start 03/31/18 at 18:00 Ascorbic Acid (Vitamin C) 500 mg DAILY GTB Last administered on 04/12/18at 09:00; Admin Dose 500 MG; Start 04/01/18 at 09:00 Bisacodyl (Dulcolax Supp) 10 mg DAILY PRN [place] CONSTIPATION; Start 03/31/18 at 18:00 Multivit/Ca Carb/ B Cmplx/FA/Prenat (Sofy-Sandoval) 1 tab DAILY GTB Last administered on 04/12/18 09:00; Admin Dose 1 TAB; Start 04/01/18 at 09:00 Zinc Sulfate (Zinc Sulfate) 220 mg DAILY GTB Last administered on 04/12/18 09:00; Admin Dose 220 MG; Start 04/01/18 at 09:00 IV Flush (NS 3 ml) 3 ml PER PROTOCOL IV ; Start 03/31/18 at 18:30 Ondansetron HCl (Zofran Inj) 4 mg Q6H PRN IV NAUSEA AND/OR VOMITING; Start 03/31/18 at 18:30 Acetaminophen (Tylenol Tab) 650 mg Q6H PRN PO PAIN LEVEL 1-3 OR FEVER Last administered on 04/06/18 03:55; Admin Dose 650 MG; Start 03/31/18 at 18:30 Acetaminophen (Tylenol Supp) 650 mg Q6H PRN ID PAIN LEVEL 1-3 OR FEVER Last administered on 04/02/18 20:38; Admin Dose 650 MG; Start 03/31/18 at 18:30 Docusate Sodium (Colace) 100 mg Q12H PRN PO CONSTIPATION; Start 03/31/18 at 18:30 Alteplase, Recombinant (Cathflo (Activase)) 2 mg MAY REPEAT X1 PRN CATHETER IF CATHETER REMAINS OCCULUDED Last administered on 04/03/18 04:24; Admin Dose 2 MG; Start 04/01/18 at 21:00 Collagenase (Santyl) 1 applic DAILY TOP Last administered on 04/12/18 09:01; Admin Dose 1 APPLIC; Start 04/03/18 at 12:00 Morphine Sulfate (morphine) 6 mg Q4H PRN GTB SEVERE PAIN LEVEL 6-10 Last administered on 04/11/18 21:03; Admin Dose 6 MG; Start 04/04/18 at 23:00 Lorazepam (Ativan) 2 mg Q4H PRN IV restless, agitation, anxiety Last administered on 04/11/18 22:15; Admin Dose 2 MG; Start 04/05/18 at 10:00 Pantoprazole (Protonix Iv) 40 mg BID@,18 IV Last administered on 04/12/18 06:15; Admin Dose 40 MG; Start 04/08/18 at 18:00 Polyethylene Glycol (Miralax) 17 gm DAILY GTB Last administered on 04/09/18at 09:07; Admin Dose 17 GM; Start 04/08/18 at 09:00 Carvedilol (Coreg) 50 mg BID GTB Last administered on 04/12/18at 09:00; Admin Dose 50 MG; Start 04/08/18 at 21:00 Dextrose/Sodium Chloride 1,000 ml @ 70 mls/hr [id number] IV Last administered on 04/12/18at 08:47; Admin Dose 70 MLS/HR; Start 04/08/18 at 11:30 Tobramycin Sulfate/Sodium Chloride (Joey Inhal) 300 mg BID RESP THERAPY NEB Last administered on 04/11/18at 19:42; Admin Dose 300 MG; Start 04/09/18 at 09:00 Lactated Ringer's 1,000 ml @ 125 mls/hr Q8H IV Last administered on 04/12/18 09:32; Admin Dose 125 MLS/HR; Start 04/12/18 at 09:00 LETITIA BLAKELY Apr 12, 2018 13:12
--- NOTE | 2018-04-12 13:57 | CONS ---
Assessment/Plan Assessment/Plan Hospital Course 62 M c/ Hx of methamphetamine/ETOH abuse c/b cirrhosis and dilated cardiomyopathy... and other comorbidities, admitted for evaluation of gingival bleeding..and fevers.... Neurology is consulted to evaluate chronic encephalopathy and assess prognosis for meaningful neurologic recovery.. Per OSH Records reviewed: On 02/2018 he was admitted to [facility] for severe EtOH intoxication, ams and agitation...following a ETOH/drug detox admission at [place] days earlier.. He was then found to be severely hypoxic d/t multilobar PNA and subsequently intubated for acute respiratory failure. He was protractedly comatose following intubation, prompting an LP that was inconclusive and an EEG (with a missing report). He was ultimately trached, peg'd and discharged to a facility for continued c are. There is no indication of cardiac arrest, or prolonged hypoxic cerebral injury.. His prognosis for meaningful neurologic recovery is, thus, guarded (ie wholly dependent on medical improvement). As an aside, he likely today has a superimposed acute toxic-metabolic on chronic encephalopathy.. MRI brain is concerning for a subacute cerebellar infarction, though it is limi jose by motion.. EEG is notable for severe diffuse slowing but is without epileptiform activity. P: Start asa for secondary stroke prevention when medically able (ie severe anemia and gingival hemorrhage are solved..); LDL is at goal... Continued medical management and supportive care per primary Limit sedating medications where possible PT/OT/ST as able Will follow Result Diagram: 04/12/18 0544 04/12/18 0544 Results 24hrs Laboratory Tests Test 04/12/18 05:44 04/12/18 06:56 White Blood Count 5.9 Red Blood Count 3.59 L Hemoglobin 10.0 L Hematocrit 31.5 L Mean Corpuscular Volume 87.7 Mean Corpuscular Hemoglobin 27.9 L Mean Corpuscular Hemoglobin Concent 31.7 L Red Cell Distribution Width 15.8 H Platelet Count 216 Mean Platelet Volume 10.3 Immature Granulocytes % 0.500 H Neutrophils % 66.3 Lymphocytes % 8.7 L Monocytes % 19.5 H Eosinophils % 3.6 Basophils % 1.4 Nucleated Red Blood Cells % 0.0 Immature Granulocytes # 0.030 Neutrophils # 3.9 Lymphocytes # 0.5 L Monocytes # 1.2 H Eosinophils # 0.2 Basophils # 0.1 Nucleated Red Blood Cells # 0.0 Sodium Level 143 Potassium Level 3.3 L Chloride Level 116 H Carbon Dioxide Level 19 L Anion Gap 8 Blood Urea Nitrogen 16 Creatinine 0.82 Est Glomerular Filtrat Rate mL/min > 60 Glucose Level 98 Calcium Level 8.4 Phosphorus Level 2.8 Magnesium Level 1.8 Total Bilirubin 0.0 L Direct Bilirubin 0.00 Indirect Bilirubin 0.0 Aspartate Amino Transf (AST/SGOT) 42 Alanine Aminotransferase (ALT/SGPT) 16 Alkaline Phosphatase 62 Total Protein 6.2 Albumin 2.6 L Globulin 3.60 H Albumin/Globulin Ratio 0.72 Amylase Level 966 H Lipase 6028 H Lab Scanned Report REFERENCE LAB Consultation Date/Type/Reason Admit Date/Time Mar 31, 2018 at 17:58 Type of Consult Neurology Requesting Provider: TAMARA GRAJEDA MD Date/Time of Note DATE: 04/12/18 TIME: 13:56 24 HR Interval Summary Free Text/Dictation Continues telemetry monitoring. No acute events reported. Subjective hx not possible: pt non-verbal Exam Vital Signs Vitals Vital Signs Date Temp Pulse Resp B/P (MAP) Pulse Ox O2 O2 Flow FiO2 Time Delivery Rate 04/12/18 69 13:54 04/12/18 97.5 165/89 100 Mechanical 13:52 (114) Ventilator 04/12/18 20 30 13:29 Intake and Output 04/11/18 04/11/18 04/12/18 1515:00 23:00 07:00 IntakeIntake Total 250 ml 600 ml 500 ml OutputOutput Total 600 ml BalanceBalance 250 ml 0 ml 500 ml Exam PE: Gen Appearance: No Apparent Distress; dried blood around lower lip HEENT: Trach Cardiovascular: Regular rate Respiratory: Tachypneic Abdomen: Soft Extremities: Dry NE: The patient was awake and alert, though nonverbal d/t trach. Tries to mouth words occasionally. Able to fix; follows simple axial and appendicular commands. Cranial nerve examination was limited by mental status. Pupils were equal and reactive to light. There was no afferent pupillary defect. Funduscopic examination was limited. Face was grossly symmetric, w/ present corneal and cough reflexes. Tone was normal. Muscle bulk was reduced. I did not see fasciculations. The patient was moving his extremities spontaneously, BUE symmetrically and BLE (L<R) Coordination and gait testing was limited by mental status. Arm and leg reflexes were within normal limits and symmetric. Maguire's sign was absent. Plantar responses were flexor. ANURAG PRESSLEY NP Apr 12, 2018 13:57 MANDO PINO Apr 13, 2018 07:58
--- NOTE | 2018-04-12 15:02 | CONS ---
Date/Time of Note Date/Time of Note DATE: 04/12/18 TIME: 15:01 Assessment/Plan Assessment/Plan Hospital Course No acute changes overnight, no fevers Microbiology: Blood cultures remain negative. Urine culture positive for Breanne albicans. Endotracheal aspirate growing gram-negative rods. Sacral wound culture growing MRSA, Breanne albicans, enterococcus, gram-negative rods. Nares swab positive for MRSA CT of the abdomen and pelvis revealed questionable enterocolitis. Cholelithiasis. Tiny bilateral pleural effusions with bibasilar airspace disease. Indwelling: Peg, Schwartz, right upper extremity PICC line, tracheostomy Antimicrobials: Tobramycin inhalation Physical examination: Chronically ill-appearing elderly man who is noncommunicative in no distress. Head atraumatic normocephalic sclera nonicteri c neck is supple tracheostomy present chest rise symmetrical breath sounds diminished bases heart: S1-S2. Abdomen soft bowel sounds present. Extremities without cyanosis. Skin: Patient has multiple pressure sores he has a dry blood on the right lower lip Assessment: 1. Sepsis with ongoing fevers 2. Acute pancreatitis, CT of the abdomen revealed no abscess, no pseudocyst 3. S/p Breanne albicans UTI 4. History of cardiomyopathy 5. Chronic respiratory failure 6. S/p gingival bleeding 7. Sacral decub 8. MRSA nares colonization 9. Possible enterocolitis and sinusitis Plan: Clinically unchanged, afebrile, continue Tobra INH for 3 more days Result Diagram: 04/12/18 0544 04/12/18 0544 Results 24hrs Laboratory Tests Test 04/12/18 05:44 04/12/18 06:56 White Blood Count 5.9 Red Blood Count 3.59 L Hemoglobin 10.0 L Hematocrit 31.5 L Mean Corpuscular Volume 87.7 Mean Corpuscular Hemoglobin 27.9 L Mean Corpuscular Hemoglobin Concent 31.7 L Red Cell Distribution Width 15.8 H Platelet Count 216 Mean Platelet Volume 10.3 Immature Granulocytes % 0.500 H Neutrophils % 66.3 Lymphocytes % 8.7 L Monocytes % 19.5 H Eosinophils % 3.6 Basophils % 1.4 Nucleated Red Blood Cells % 0.0 Immature Granulocytes # 0.030 Neutrophils # 3.9 Lymphocytes # 0.5 L Monocytes # 1.2 H Eosinophils # 0.2 Basophils # 0.1 Nucleated Red Blood Cells # 0.0 Sodium Level 143 Potassium Level 3.3 L Chloride Level 116 H Carbon Dioxide Level 19 L Anion Gap 8 Blood Urea Nitrogen 16 Creatinine 0.82 Est Glomerular Filtrat Rate mL/min > 60 Glucose Level 98 Calcium Level 8.4 Phosphorus Level 2.8 Magnesium Level 1.8 Total Bilirubin 0.0 L Direct Bilirubin 0.00 Indirect Bilirubin 0.0 Aspartate Amino Transf (AST/SGOT) 42 Alanine Aminotransferase (ALT/SGPT) 16 Alkaline Phosphatase 62 Total Protein 6.2 Albumin 2.6 L Globulin 3.60 H Albumin/Globulin Ratio 0.72 Amylase Level 966 H Lipase 6028 H Lab Scanned Report REFERENCE LAB Consultation Date/Type/Reason Admit Date/Time Mar 31, 2018 at 17:58 Initial Consult Date 04/02/18 Type of Consult id Requesting Provider: TAMARA GRAJEDA MD Exam/Review of Systems Vital Signs Vitals Vital Signs Date Temp Pulse Resp B/P (MAP) Pulse Ox O2 O2 Flow FiO2 Time Delivery Rate 04/12/18 69 13:54 04/12/18 97.5 165/89 100 Mechanical 13:52 (114) Ventilator 04/12/18 20 30 13:29 Intake and Output 04/11/18 04/11/18 04/12/18 1515:00 23:00 07:00 IntakeIntake Total 250 ml 600 ml 500 ml OutputOutput Total 600 ml BalanceBalance 250 ml 0 ml 500 ml Medications Medications Current Medications Acetaminophen (Tylenol Tab) 1,000 mg Q4 PRN PO MODERATE PAIN LEVEL 4-6 Last administered on 04/07/18at 12:14; Admin Dose 1,000 MG; Start 03/31/18 at 18:00 Acetaminophen (Tylenol Tab) 650 mg Q4 PRN GTB MILD PAIN LEVEL 1-3 Last administered on 04/09/18at 09:09; Admin Dose 650 MG; Start 03/31/18 at 18:00 Albuterol (Proventil 0.083% (Neb)) 2.5 mg Q3H PRN NEB WHEEZING AND SOB; Start 03/31/18 at 18:00 Albuterol (Proventil 0.083% (Neb)) 2.5 mg Q6 PRN NEB WHEEZING AND SOB; Start 03/31/18 at 18:00 Ascorbic Acid (Vitamin C) 500 mg DAILY GTB Last administered on 04/12/18at 09:00; Admin Dose 500 MG; Start 04/01/18 at 09:00 Bisacodyl (Dulcolax Supp) 10 mg DAILY PRN [place] CONSTIPATION; Start 03/31/18 at 18:00 Multivit/Ca Carb/ B Cmplx/FA/Prenat (Sofy-Sandoval) 1 tab DAILY GTB Last administered on 04/12/18at 09:00; Admin Dose 1 TAB; Start 04/01/18 at 09:00 Zinc Sulfate (Zinc Sulfate) 220 mg DAILY GTB Last administered on 04/12/18at 09:00; Admin Dose 220 MG; Start 04/01/18 at 09:00 IV Flush (NS 3 ml) 3 ml PER PROTOCOL IV ; Start 03/31/18 at 18:30 Ondansetron HCl (Zofran Inj) 4 mg Q6H PRN IV NAUSEA AND/OR VOMITING; Start 03/31/18 at 18:30 Acetaminophen (Tylenol Tab) 650 mg Q6H PRN PO PAIN LEVEL 1-3 OR FEVER Last administered on 04/06/18at 03:55; Admin Dose 650 MG; Start 03/31/18 at 18:30 Acetaminophen (Tylenol Supp) 650 mg Q6H PRN [place] PAIN LEVEL 1-3 OR FEVER Last administered on 04/02/18 20:38; Admin Dose 650 MG; Start 03/31/18 at 18:30 Docusate Sodium (Colace) 100 mg Q12H PRN PO CONSTIPATION; Start 03/31/18 at 18:30 Alteplase, Recombinant (Cathflo (Activase)) 2 mg MAY REPEAT X1 PRN CATHETER IF CATHETER REMAINS OCCULUDED Last administered on 04/03/18at 04:24; Admin Dose 2 MG; Start 04/01/18 at 21:00 Collagenase (Santyl) 1 applic DAILY TOP Last administered on 04/12/18 09:01; Admin Dose 1 APPLIC; Start 04/03/18 at 12:00 Morphine Sulfate (morphine) 6 mg Q4H PRN GTB SEVERE PAIN LEVEL 6-10 Last administered on 04/11/18 21:03; Admin Dose 6 MG; Start 04/04/18 at 23:00 Lorazepam (Ativan) 2 mg Q4H PRN IV restless, agitation, anxiety Last administered on 04/11/18at 22:15; Admin Dose 2 MG; Start 04/05/18 at 10:00 Pantoprazole (Protonix Iv) 40 mg BID@06,18 IV Last administered on 04/12/18at 06:15; Admin Dose 40 MG; Start 04/08/18 at 18:00 Polyethylene Glycol (Miralax) 17 gm DAILY GTB Last administered on 04/09/18at 09:07; Admin Dose 17 GM; Start 04/08/18 at 09:00 Carvedilol (Coreg) 50 mg BID GTB Last administered on 04/12/18at 09:00; Admin Dose 50 MG; Start 04/08/18 at 21:00 Dextrose/Sodium Chloride 1,000 ml @ 70 mls/hr [id number] IV Last administered on 04/12/18at 08:47; Admin Dose 70 MLS/HR; Start 04/08/18 at 11:30 Tobramycin Sulfate/Sodium Chloride (Joey Inhal) 300 mg BID RESP THERAPY NEB Last administered on 04/11/18at 19:42; Admin Dose 300 MG; Start 04/09/18 at 09:00 Lactated Ringer's 1,000 ml @ 125 mls/hr Q8H IV Last administered on 04/12/18at 09:32; Admin Dose 125 MLS/HR; Start 04/12/18 at 09:00 Potassium Chloride 100 ml @ 50 mls/hr Q2H IVPB ; Start 04/12/18 at 16:00; Stop 04/12/18 at 19:59 RENÉ GARCIA NP Apr 12, 2018 15:02
[2018-04-12] MEDS: POTASSIUM CHLORIDE 100 ML IVPB SCH ×2 (17:50→21:06)
[2018-04-12] MEDS: LORAZEPAM 2 MG INJ IV PRN (18:44)
[2018-04-12] MEDS: morphine LIQ (10 MG/5 ML) CUP GTB PRN (21:10)
[2018-04-13] VITALS (25 sets, daily range): BP systolic 112–152; BP diastolic 62–91; PULSE 64–97; RESP 16–24
[2018-04-13] MEDS: LACTATED RINGER'S 1,000 ML IV SCH ×4 (01:00→17:49)
[2018-04-13] MEDS: PANTOPRAZOLE 40 MG INJ IV SCH ×2 (05:23→17:49)
[2018-04-13] MEDS: LORAZEPAM 2 MG INJ IV PRN (05:23)
--- NOTE | 2018-04-13 07:51 | CONS ---
Date/Time of Note Date/Time of Note DATE: 04/13/18 TIME: 07:50 Assessment/Plan Assessment/Plan Assessment/Plan Assessment/Plan Assessment/Plan Hospital Course 62 male with excessively bleeding gingival tissue and severe anemia 1. Severe acute on chronic anemia likely due to blood loss from #2 2. Excessive bleeding from gingival tissue 3. Chronic liver disease, alcohol related 4. Mild coagulopathy 5. Pancreatitis -lipid panel wnl -CBD 6mm, LFT wnl -monitor lipase and amylase and LFTs 6. Chronic kidney disease -BUN/manager paper wnl 7. Encephalopathy secondary to anoxic brain injury 8. H/o duodenal ulcer Plan: MRCP stat C diff Increase IVF to 125cc/hr resume feeding Monitor lipase and amylase Monitor LFTs Bowel regimen Monitor HH and replace with PRBC as needed PPI BID Result Diagram: 04/13/1862404/13/18624 Results 24hrs Laboratory Tests Test 04/13/18 06:25 White Blood Count 6.2 Red Blood Count 3.36 L Hemoglobin 9.4 L Hematocrit 29.3 L Mean Corpuscular Volume 87.2 Mean Corpuscular Hemoglobin 28.0 L Mean Corpuscular Hemoglobin Concent 32.1 Red Cell Distribution Width 15.5 H Platelet Count 197 Mean Platelet Volume 10.7 H Immature Granulocytes % 0.800 H Neutrophils % 73.1 Lymphocytes % 6.4 L Monocytes % 15.4 H Eosinophils % 2.7 Basophils % 1.6 Nucleated Red Blood Cells % 0.0 Immature Granulocytes # 0.050 H Neutrophils # 4.6 Lymphocytes # 0.4 L Monocytes # 1.0 H Eosinophils # 0.2 Basophils # 0.1 Nucleated Red Blood Cells # 0.0 Sodium Level 139 Potassium Level 3.8 Chloride Level 114 H Carbon Dioxide Level 18 L Anion Gap 7 Blood Urea Nitrogen 14 Creatinine 0.74 Est Glomerular Filtrat Rate mL/min > 60 Glucose Level 82 Calcium Level 8.1 L Total Bilirubin 0.1 L Direct Bilirubin 0.00 Indirect Bilirubin 0.1 Aspartate Amino Transf (AST/SGOT) 46 Alanine Aminotransferase (ALT/SGPT) 17 Alkaline Phosphatase 61 Total Protein 6.4 Albumin 2.6 L Globulin 3.80 H Albumin/Globulin Ratio 0.68 Lipase 697 H Consultation Date/Type/Reason Admit Date/Time Mar 31, 2018 at 17:58 Initial Consult Date 04/02/18 Requesting Provider: TAMARA GRAJEDA MD 24 HR Interval Summary Constitutional: no complaints, improved Exam/Review of Systems Vital Signs Vitals Vital Signs Date Temp Pulse Resp B/P (MAP) Pulse Ox O2 O2 Flow FiO2 Time Delivery Rate 04/13/18 98.2 86 19 125/91 96 07:43 (102) 04/13/18 30 05:46 04/12/18 Mechanical 18:08 Ventilator Intake and Output 04/12/18 04/12/18 04/13/18 1515:00 23:00 07:00 IntakeIntake Total 400 ml 1200 ml 1000 ml OutputOutput Total 500 ml 800 ml 1300 ml BalanceBalance -100 ml 400 ml -300 ml Exam Respiratory: diminished breath sounds Cardiovascular: regular rate and rhythm Gastrointestinal: soft, nl liver, spleen, non-tender Musculoskeletal: nl extremities to inspection, nl gait and stance Extremities: normal pulses Medications Medications Current Medications Acetaminophen (Tylenol Tab) 1,000 mg Q4 PRN PO MODERATE PAIN LEVEL 4-6 Last administered on 04/07/18at 12:14; Admin Dose 1,000 MG; Start 03/31/18 at 18:00 Acetaminophen (Tylenol Tab) 650 mg Q4 PRN GTB MILD PAIN LEVEL 1-3 Last administered on 04/09/18at 09:09; Admin Dose 650 MG; Start 03/31/18 at 18:00 Albuterol (Proventil 0.083% (Neb)) 2.5 mg Q3H PRN NEB WHEEZING AND SOB; Start 03/31/18 at 18:00 Albuterol (Proventil 0.083% (Neb)) 2.5 mg Q6 PRN NEB WHEEZING AND SOB; Start 03/31/18 at 18:00 Ascorbic Acid (Vitamin C) 500 mg DAILY GTB Last administered on 04/12/18at 09:00; Admin Dose 500 MG; Start 04/01/18 at 09:00 Bisacodyl (Dulcolax Supp) 10 mg DAILY PRN [place] CONSTIPATION; Start 03/31/18 at 18:00 Multivit/Ca Carb/ B Cmplx/FA/Prenat (Sofy-Sandoval) 1 tab DAILY GTB Last administered on 04/12/18at 09:00; Admin Dose 1 TAB; Start 04/01/18 at 09:00 Zinc Sulfate (Zinc Sulfate) 220 mg DAILY GTB Last administered on 04/12/18 09:00; Admin Dose 220 MG; Start 04/01/18 at 09:00 IV Flush (NS 3 ml) 3 ml PER PROTOCOL IV ; Start 03/31/18 at 18:30 Ondansetron HCl (Zofran Inj) 4 mg Q6H PRN IV NAUSEA AND/OR VOMITING; Start 03/31/18 at 18:30 Acetaminophen (Tylenol Tab) 650 mg Q6H PRN PO PAIN LEVEL 1-3 OR FEVER Last administered on 04/06/18 03:55; Admin Dose 650 MG; Start 03/31/18 at 18:30 Acetaminophen (Tylenol Supp) 650 mg Q6H PRN [place] PAIN LEVEL 1-3 OR FEVER Last administered on 04/02/18 20:38; Admin Dose 650 MG; Start 03/31/18 at 18:30 Docusate Sodium (Colace) 100 mg Q12H PRN PO CONSTIPATION; Start 03/31/18 at 18:30 Alteplase, Recombinant (Cathflo (Activase)) 2 mg MAY REPEAT X1 PRN CATHETER IF CATHETER REMAINS OCCULUDED Last administered on 04/03/18 04:24; Admin Dose 2 MG; Start 04/01/18 at 21:00 Collagenase (Santyl) 1 applic DAILY TOP Last administered on 04/12/18 09:01; Admin Dose 1 APPLIC; Start 04/03/18 at 12:00 Morphine Sulfate (morphine) 6 mg Q4H PRN GTB SEVERE PAIN LEVEL 6-10 Last administered on 04/12/18 21:10; Admin Dose 6 MG; Start 04/04/18 at 23:00 Lorazepam (Ativan) 2 mg Q4H PRN IV restless, agitation, anxiety Last administered on 04/13/18 05:23; Admin Dose 2 MG; Start 04/05/18 at 10:00 Pantoprazole (Protonix Iv) 40 mg BID@06,18 IV Last administered on 04/13/18 05:23; Admin Dose 40 MG; Start 04/08/18 at 18:00 Polyethylene Glycol (Miralax) 17 gm DAILY GTB Last administered on 04/09/18 09:07; Admin Dose 17 GM; Start 04/08/18 at 09:00 Carvedilol (Coreg) 50 mg BID GTB Last administered on 1/18/19at 21:09; Admin Dose 50 MG; Start 04/08/18 at 21:00 Tobramycin Sulfate/Sodium Chloride (Joey Inhal) 300 mg BID RESP THERAPY NEB Last administered on 04/12/18at 20:29; Admin Dose 300 MG; Start 04/09/18 at 09:00 Lactated Ringer's 1,000 ml @ 125 mls/hr Q8H IV Last administered on 04/13/18 05:58; Admin Dose 125 MLS/HR; Start 04/12/18 at 09:00 RASHEEDA MEJIA MD Apr 13, 2018 07:51
[2018-04-13] MEDS: ASCORBIC ACID 500 MG TAB GTB SCH (08:43)
[2018-04-13] MEDS: POLYETHYLENE GLYCOL 17 GM PACKET GTB SCH (08:43)
[2018-04-13] MEDS: ZINC SULFATE 220 MG CAP GTB SCH (08:43)
[2018-04-13] MEDS: COLLAGENASE 5 GM (UD JAR) TOP SCH (08:43)
[2018-04-13] MEDS: MULTIVIT/CA CARB/B CMPLX/FA TAB GTB SCH (08:43)
[2018-04-13] MEDS: BALSAM PERU/CASTOR OIL 60 GM TUBE TOP SCH ×2 (08:44→20:57)
[2018-04-13] MEDS: TOBRAMYCIN/0.25NS 300 MG/5 ML INHAL NEB SCH ×2 (09:00→20:00)
--- NOTE | 2018-04-13 12:09 | CONS ---
Date/Time of Note Date/Time of Note DATE: 04/13/18 TIME: 12:03 Assessment/Plan Assessment/Plan Result Diagram: 04/13/18 0625 04/13/18 0625 Results 24hrs Laboratory Tests Test 04/13/18 06:25 White Blood Count 6.2 Red Blood Count 3.36 L Hemoglobin 9.4 L Hematocrit 29.3 L Mean Corpuscular Volume 87.2 Mean Corpuscular Hemoglobin 28.0 L Mean Corpuscular Hemoglobin Concent 32.1 Red Cell Distribution Width 15.5 H Platelet Count 197 Mean Platelet Volume 10.7 H Immature Granulocytes % 0.800 H Neutrophils % 73.1 Lymphocytes % 6.4 L Monocytes % 15.4 H Eosinophils % 2.7 Basophils % 1.6 Nucleated Red Blood Cells % 0.0 Immature Granulocytes # 0.050 H Neutrophils # 4.6 Lymphocytes # 0.4 L Monocytes # 1.0 H Eosinophils # 0.2 Basophils # 0.1 Nucleated Red Blood Cells # 0.0 Sodium Level 139 Potassium Level 3.8 Chloride Level 114 H Carbon Dioxide Level 18 L Anion Gap 7 Blood Urea Nitrogen 14 Creatinine 0.74 Est Glomerular Filtrat Rate mL/min > 60 Glucose Level 82 Calcium Level 8.1 L Total Bilirubin 0.1 L Direct Bilirubin 0.00 Indirect Bilirubin 0.1 Aspartate Amino Transf (AST/SGOT) 46 Alanine Aminotransferase (ALT/SGPT) 17 Alkaline Phosphatase 61 Total Protein 6.4 Albumin 2.6 L Globulin 3.80 H Albumin/Globulin Ratio 0.68 Lipase 697 H Consultation Date/Type/Reason Admit Date/Time Mar 31, 2018 at 17:58 Initial Consult Date SUBJECTIVE: Pt is awake, no fevers. Nonverbal with trach to vent. No acute distress. VS: stable. T: 98.4 LABS: Reviewed. WBC- 6.2 Microbiology: Blood cultures remain negative. Urine culture positive for Breanne albicans. Endotracheal aspirate growing gram-negative rods. Sacral wound culture growing MRSA, Breanne albicans, enterococcus, gram-negative rods. Nares swab positive for MRSA CT of the abdomen and pelvis revealed questionable enterocolitis. Cholelithiasis. Tiny bilateral pleural effusions with bibasilar airspace disease. Indwelling: Peg, Schwartz, right upper extremity PICC line, tracheostomy Antimicrobials: Tobramycin inhalation Physical examination: GEN: Chronically ill-appearing elderly man who is noncommunicative in no distress. HENT: Head atraumatic normocephalic, sclera nonicteric, neck is supple, tracheostomy present. PULM: chest rise symmetrical, breath sounds diminished bases Heart: S1-S2. Abdomen soft bowel sounds present. Extremities without cyanosis. S kin: Patient has multiple pressure sores he has a dry blood on the right lower lip Assessment: 1. Sepsis with ongoing fevers. Fevers resolved. 2. Acute pancreatitis, CT of the abdomen revealed no abscess, no pseudocyst 3. S/p Breanne albicans UTI 4. History of cardiomyopathy 5. Chronic respiratory failure 6. S/p gingival bleeding 7. Sacral decub 8. MRSA nares colonization 9. Possible enterocolitis and sinusitis Plan: Clinically unchanged. Afebrile. Will continue Tobra INH for 3 more days. Pending MRCP. GI following. Requesting Provider: TAMARA GRAJEDA MD Exam/Review of Systems Vital Signs Vitals Vital Signs Date Temp Pulse Resp B/P (MAP) Pulse Ox O2 O2 Flow FiO2 Time Delivery Rate 04/13/18 98.4 81 20 115/86 100 10:08 (96) 04/13/18 30 08:00 04/12/18 Mechanical 18:08 Ventilator Intake and Output 04/12/18 04/12/18 04/13/18 1414:59 22:59 06:59 IntakeIntake Total 400 ml 1200 ml 1000 ml OutputOutput Total 500 ml 800 ml 1300 ml BalanceBalance -100 ml 400 ml -300 ml Medications Medications Current Medications Acetaminophen (Tylenol Tab) 1,000 mg Q4 PRN PO MODERATE PAIN LEVEL 4-6 Last administered on 04/07/18at 12:14; Admin Dose 1,000 MG; Start 03/31/18 at 18:00 Acetaminophen (Tylenol Tab) 650 mg Q4 PRN GTB MILD PAIN LEVEL 1-3 Last administered on 04/09/18at 09:09; Admin Dose 650 MG; Start 03/31/18 at 18:00 Albuterol (Proventil 0.083% (Neb)) 2.5 mg Q3H PRN NEB WHEEZING AND SOB; Start 03/31/18 at 18:00 Albuterol (Proventil 0.083% (Neb)) 2.5 mg Q6 PRN NEB WHEEZING AND SOB; Start 03/31/18 at 18:00 Ascorbic Acid (Vitamin C) 500 mg DAILY GTB Last administered on 04/13/18 08:43; Admin Dose 500 MG; Start 04/01/18 at 09:00 Bisacodyl (Dulcolax Supp) 10 mg DAILY PRN [place] CONSTIPATION; Start 03/31/18 at 18:00 Multivit/Ca Carb/ B Cmplx/FA/Prenat (Sofy-Sandoval) 1 tab DAILY GTB Last administered on 04/13/18 08:43; Admin Dose 1 TAB; Start 04/01/18 at 09:00 Zinc Sulfate (Zinc Sulfate) 220 mg DAILY GTB Last administered on 04/13/18 08:43; Admin Dose 220 MG; Start 04/01/18 at 09:00 IV Flush (NS 3 ml) 3 ml PER PROTOCOL IV ; Start 03/31/18 at 18:30 Ondansetron HCl (Zofran Inj) 4 mg Q6H PRN IV NAUSEA AND/OR VOMITING; Start 03/31/18 at 18:30 Acetaminophen (Tylenol Tab) 650 mg Q6H PRN PO PAIN LEVEL 1-3 OR FEVER Last administered on 04/06/18 03:55; Admin Dose 650 MG; Start 03/31/18 at 18:30 Acetaminophen (Tylenol Supp) 650 mg Q6H PRN [place] PAIN LEVEL 1-3 OR FEVER Last administered on 04/02/18 20:38; Admin Dose 650 MG; Start 03/31/18 at 18:30 Docusate Sodium (Colace) 100 mg Q12H PRN PO CONSTIPATION; Start 03/31/18 at 18:30 Alteplase, Recombinant (Cathflo (Activase)) 2 mg MAY REPEAT X1 PRN CATHETER IF CATHETER REMAINS OCCULUDED Last administered on 04/03/18 04:24; Admin Dose 2 MG; Start 04/01/18 at 21:00 Collagenase (Santyl) 1 applic DAILY TOP Last administered on 04/13/18 08:43; Admin Dose 1 APPLIC; Start 04/03/18 at 12:00 Morphine Sulfate (morphine) 6 mg Q4H PRN GTB SEVERE PAIN LEVEL 6-10 Last administered on 04/12/18 21:10; Admin Dose 6 MG; Start 04/04/18 at 23:00 Lorazepam (Ativan) 2 mg Q4H PRN IV restless, agitation, anxiety Last administered on 04/13/18 05:23; Admin Dose 2 MG; Start 04/05/18 at 10:00 Pantoprazole (Protonix Iv) 40 mg BID@06,18 IV Last administered on 04/13/18at 05:23; Admin Dose 40 MG; Start 04/08/18 at 18:00 Polyethylene Glycol (Miralax) 17 gm DAILY GTB Last administered on 04/13/18at 08:43; Admin Dose 17 GM; Start 04/08/18 at 09:00 Carvedilol (Coreg) 50 mg BID GTB Last administered on 04/13/18at 08:44; Admin Dose 50 MG; Start 04/08/18 at 21:00 Tobramycin Sulfate/Sodium Chloride (Joey Inhal) 300 mg BID RESP THERAPY NEB Last administered on 04/12/18at 20:29; Admin Dose 300 MG; Start 04/09/18 at 09:00 Lactated Ringer's 1,000 ml @ 125 mls/hr Q8H IV Last administered on 04/13/18at 05:58; Admin Dose 125 MLS/HR; Start 04/12/18 at 09:00 KELECHI BISHOP Apr 13, 2018 12:09
--- NOTE | 2018-04-13 13:06 | PN ---
Date/Time of Note Date/Time of Note DATE: 04/13/18 TIME: 13:06 Assessment/Plan VTE Prophylaxis Risk score (from [facility] [place])>0 risk: 8 SCD applied (from [facility] [place]): Yes Pharmacological prophylaxis: NA/contraindicated Pharm contraindication: bleeding Lines/Catheters IV Catheter Type (from [facility]): PICC Line Central line still needed: Yes Urinary Cath still in place: Yes Reason Cath still needed: urinary retention Assessment/Plan Hospital Course # Oral gingival bleeding likely due to dentures, seen by ENT s/p endoscopy # Sepsis with Fevers with hx Pneumonia +UTI and ? Pancreatitis +multiple wounds, ucx+ lisa # Blood loss anemia due to #1 # VDRF # CKD with worseing renal failure # Metabolic acidosis # DILATED CARDIOMYOPATHY # HX ALCOHOL ABUSE # Multiple wounds > decub # hypomagnesemia Assessment/Plan - NPO per GI - mrcp could not be done per radiology due to vent management - c.w iv fluids - cw coreg - iv abx with tobramycin - no blood thinners due to anemia - GI prophylaxis - monitor oral bleeding, not seen lately - Pending neuro recs - PT/OT/Speech Result Diagram: 04/13/18 0625 04/13/18 0625 Results 24hrs Laboratory Tests Test 04/13/18 06:25 White Blood Count 6.2 Red Blood Count 3.36 L Hemoglobin 9.4 L Hematocrit 29.3 L Mean Corpuscular Volume 87.2 Mean Corpuscular Hemoglobin 28.0 L Mean Corpuscular Hemoglobin Concent 32.1 Red Cell Distribution Width 15.5 H Platelet Count 197 Mean Platelet Volume 10.7 H Immature Granulocytes % 0.800 H Neutrophils % 73.1 Lymphocytes % 6.4 L Monocytes % 15.4 H Eosinophils % 2.7 Basophils % 1.6 Nucleated Red Blood Cells % 0.0 Immature Granulocytes # 0.050 H Neutrophils # 4.6 Lymphocytes # 0.4 L Monocytes # 1.0 H Eosinophils # 0.2 Basophils # 0.1 Nucleated Red Blood Cells # 0.0 Sodium Level 139 Potassium Level 3.8 Chloride Level 114 H Carbon Dioxide Level 18 L Anion Gap 7 Blood Urea Nitrogen 14 Creatinine 0.74 Est Glomerular Filtrat Rate mL/min > 60 Glucose Level 82 Calcium Level 8.1 L Total Bilirubin 0.1 L Direct Bilirubin 0.00 Indirect Bilirubin 0.1 Aspartate Amino Transf (AST/SGOT) 46 Alanine Aminotransferase (ALT/SGPT) 17 Alkaline Phosphatase 61 Total Protein 6.4 Albumin 2.6 L Globulin 3.80 H Albumin/Globulin Ratio 0.68 Lipase 697 H Subjective 24 Hr Interval Summary Subjective hx not possible: pt non-verbal Psychological: confusion Exam/Review of Systems Vital Signs Vitals Vital Signs Date Temp Pulse Resp B/P (MAP) Pulse Ox O2 O2 Flow FiO2 Time Delivery Rate 04/13/18 98.1 80 19 113/87 100 12:05 (96) 04/13/18 30 08:00 04/12/18 Mechanical 18:08 Ventilator Intake and Output 04/12/18 04/12/18 04/13/18 1414:59 22:59 06:59 IntakeIntake Total 400 ml 1200 ml 1000 ml OutputOutput Total 500 ml 800 ml 1300 ml BalanceBalance -100 ml 400 ml -300 ml Exam Head: normocephalic Eyes: nl conjunctiva ENMT: other (tracheostomy) Neck: supple Respiratory: diminished breath sounds Cardiovascular: regular rate and rhythm Gastrointestinal: soft, other (G tube) Medications Medications Current Medications Acetaminophen (Tylenol Tab) 1,000 mg Q4 PRN PO MODERATE PAIN LEVEL 4-6 Last administered on 04/07/18at 12:14; Admin Dose 1,000 MG; Start 03/31/18 at 18:00 Acetaminophen (Tylenol Tab) 650 mg Q4 PRN GTB MILD PAIN LEVEL 1-3 Last administered on 04/09/18at 09:09; Admin Dose 650 MG; Start 03/31/18 at 18:00 Albuterol (Proventil 0.083% (Neb)) 2.5 mg Q3H PRN NEB WHEEZING AND SOB; Start 03/31/18 at 18:00 Albuterol (Proventil 0.083% (Neb)) 2.5 mg Q6 PRN NEB WHEEZING AND SOB; Start 03/31/18 at 18:00 Ascorbic Acid (Vitamin C) 500 mg DAILY GTB Last administered on 04/13/18at 08:43; Admin Dose 500 MG; Start 04/01/18 at 09:00 Bisacodyl (Dulcolax Supp) 10 mg DAILY PRN [place] CONSTIPATION; Start 03/31/18 at 18:00 Multivit/Ca Carb/ B Cmplx/FA/Prenat (Sofy-Sandoval) 1 tab DAILY GTB Last administered on 04/13/18 08:43; Admin Dose 1 TAB; Start 04/01/18 at 09:00 Zinc Sulfate (Zinc Sulfate) 220 mg DAILY GTB Last administered on 04/13/18 08:43; Admin Dose 220 MG; Start 04/01/18 at 09:00 IV Flush (NS 3 ml) 3 ml PER PROTOCOL IV ; Start 03/31/18 at 18:30 Ondansetron HCl (Zofran Inj) 4 mg Q6H PRN IV NAUSEA AND/OR VOMITING; Start 03/31/18 at 18:30 Acetaminophen (Tylenol Tab) 650 mg Q6H PRN PO PAIN LEVEL 1-3 OR FEVER Last administered on 04/06/18 03:55; Admin Dose 650 MG; Start 03/31/18 at 18:30 Acetaminophen (Tylenol Supp) 650 mg Q6H PRN [place] PAIN LEVEL 1-3 OR FEVER Last administered on 04/02/18 20:38; Admin Dose 650 MG; Start 03/31/18 at 18:30 Docusate Sodium (Colace) 100 mg Q12H PRN PO CONSTIPATION; Start 03/31/18 at 18:30 Alteplase, Recombinant (Cathflo (Activase)) 2 mg MAY REPEAT X1 PRN CATHETER IF CATHETER REMAINS OCCULUDED Last administered on 04/03/18 04:24; Admin Dose 2 MG; Start 04/01/18 at 21:00 Collagenase (Santyl) 1 applic DAILY TOP Last administered on 04/13/18 08:43; Admin Dose 1 APPLIC; Start 04/03/18 at 12:00 Morphine Sulfate (morphine) 6 mg Q4H PRN GTB SEVERE PAIN LEVEL 6-10 Last administered on 04/12/18 21:10; Admin Dose 6 MG; Start 04/04/18 at 23:00 Lorazepam (Ativan) 2 mg Q4H PRN IV restless, agitation, anxiety Last administered on 04/13/18 05:23; Admin Dose 2 MG; Start 04/05/18 at 10:00 Pantoprazole (Protonix Iv) 40 mg BID@06,18 IV Last administered on 04/13/18 05:23; Admin Dose 40 MG; Start 04/08/18 at 18:00 Polyethylene Glycol (Miralax) 17 gm DAILY GTB Last administered on 04/13/18 08:43; Admin Dose 17 GM; Start 04/08/18 at 09:00 Carvedilol (Coreg) 50 mg BID GTB Last administered on 04/13/18at 08:44; Admin Dose 50 MG; Start 04/08/18 at 21:00 Tobramycin Sulfate/Sodium Chloride (Joey Inhal) 300 mg BID RESP THERAPY NEB Last administered on 04/12/18at 20:29; Admin Dose 300 MG; Start 04/09/18 at 09:00 Lactated Ringer's 1,000 ml @ 125 mls/hr Q8H IV Last administered on 04/13/18at 05:58; Admin Dose 125 MLS/HR; Start 04/12/18 at 09:00 LETITIA BLAKELY Apr 13, 2018 13:06
[2018-04-14] VITALS (28 sets, daily range): BP systolic 135–166; BP diastolic 77–99; PULSE 67–91; RESP 16–30
[2018-04-14] MEDS: LACTATED RINGER'S 1,000 ML IV SCH ×3 (02:36→23:40)
[2018-04-14] MEDS: PANTOPRAZOLE 40 MG INJ IV SCH ×2 (05:45→17:29)
--- NOTE | 2018-04-14 08:42 | CONS ---
Assessment/Plan Assessment/Plan Hospital Course 62 M c/ Hx of methamphetamine/ETOH abuse c/b cirrhosis and dilated cardiomyopathy... and other comorbidities, admitted for evaluation of gingival bleeding..and fevers.... Neurology is consulted to evaluate encephalopathy and assess prognosis for meaningful neurologic recovery.. Of note, review of OSH records is notable for the absence of prior cardiac arrest... The clinical picture suggests an acute toxic-metabolic (?on chronic) encephalopathy...which has shown significant improvement.. MRI brain is concerning for a subacute cerebellar infarction, though it is limited by motion.. EEG is without epileptiform activity. His prognosis for meaningful neurologic recovery is guarded (ie wholly dependent on medical improvement)... P: Start asa for secondary stroke prevention when medically able (ie severe anemia and gingival hemorrhage are solved..); LDL is at goal... Limit sedating medications where possible PT/OT/ST as able Continued medical management and supportive care per primary Will follow Result Diagram: 04/14/18 0638 04/14/18 0638 Results 24hrs Laboratory Tests Test 04/14/18 06:38 White Blood Count 5.0 Red Blood Count 2.93 L Hemoglobin 8.2 L Hematocrit 25.4 L Mean Corpuscular Volume 86.7 Mean Corpuscular Hemoglobin 28.0 L Mean Corpuscular Hemoglobin Concent 32.3 Red Cell Distribution Width 15.4 H Platelet Count 183 Mean Platelet Volume 10.1 Immature Granulocytes % 1.000 H Neutrophils % 75.4 Lymphocytes % 6.8 L Monocytes % 12.0 H Eosinophils % 3.8 Basophils % 1.0 Nucleated Red Blood Cells % 0.0 Immature Granulocytes # 0.050 H Neutrophils # 3.8 Lymphocytes # 0.3 L Monocytes # 0.6 Eosinophils # 0.2 Basophils # 0.1 Nucleated Red Blood Cells # 0.0 Sodium Level 139 Potassium Level 3.3 L Chloride Level 112 H Carbon Dioxide Level 17 L Anion Gap 10 Blood Urea Nitrogen 14 Creatinine 0.73 Est Glomerular Filtrat Rate mL/min > 60 Glucose Level 76 Calcium Level 8.4 Amylase Level 201 H Lipase 574 H Consultation Date/Type/Reason Admit Date/Time Mar 31, 2018 at 17:58 Type of Consult Neurology Reason for Consultation encephalopathy; prognosis.. Requesting Provider: TAMARA GRAJEDA MD Date/Time of Note DATE: 04/14/18 TIME: 08:37 24 HR Interval Summary Free Text/Dictation Continues acute care Subjective hx not possible: other (trach) Exam Vital Signs Vitals Vital Signs Date Temp Pulse Resp B/P (MAP) Pulse Ox O2 O2 Flow FiO2 Time Delivery Rate 04/14/18 91 08:25 04/14/18 97.5 24 162/99 100 Mechanical 08:00 (120) Ventilator 04/14/18 30 05:53 Intake and Output 04/13/18 04/13/18 04/14/18 1515:00 23:00 07:00 OutputOutput Total 650 ml 800 ml BalanceBalance -650 ml -800 ml Exam PE: Gen Appearance: No Apparent Distress HEENT: Trach Cardiovascular: Regular rate Abdomen: Soft Extremities: Dry NE: The patient was alert, increasingly verbal despite trach...able to follow simple commands.. Cranial nerve examination was limited by mental status. Pupils were equal and reactive to light. There was no afferent pupillary defect. Funduscopic examination was limited. Face was grossly symmetric, w/ present corneal and cough reflexes. Tone was normal. Muscle bulk was normal. I did not see fasciculations. The patient moved his limbs grossly symmetrically. Coordination and gait testing was limited by mental status. Arm and leg reflexes were within normal limits and symmetric. Maguire's sign was absent. Plantar responses were flexor. MANDO PINO Apr 14, 2018 08:42
[2018-04-14] MEDS: TOBRAMYCIN/0.25NS 300 MG/5 ML INHAL NEB SCH ×2 (09:00→20:23)
[2018-04-14] MEDS: ZINC SULFATE 220 MG CAP GTB SCH (10:06)
[2018-04-14] MEDS: MULTIVIT/CA CARB/B CMPLX/FA TAB GTB SCH (10:11)
[2018-04-14] MEDS: POLYETHYLENE GLYCOL 17 GM PACKET GTB SCH (10:12)
[2018-04-14] MEDS: ASCORBIC ACID 500 MG TAB GTB SCH (10:13)
[2018-04-14] MEDS: COLLAGENASE 5 GM (UD JAR) TOP SCH (10:14)
[2018-04-14] MEDS: BALSAM PERU/CASTOR OIL 60 GM TUBE TOP SCH ×2 (10:15→21:36)
--- NOTE | 2018-04-14 11:00 | CONS ---
Date/Time of Note Date/Time of Note DATE: 04/14/18 TIME: 10:55 Assessment/Plan Assessment/Plan Hospital Course 62 male with excessively bleeding gingival tissue and severe anemia 1. Severe acute on chronic anemia likely due to blood loss from #2 2. Excessive bleeding from gingival tissue 3. Chronic liver disease, alcohol related 4. Mild coagulopathy 5. Pancreatitis -lipid panel wnl -trending downward -CBD 6mm, LFT wnl -monitor lipase and amylase and LFTs 6. Chronic kidney disease -BUN/court supervisor wnl 7. Encephalopathy secondary to anoxic brain injury 8. H/o duodenal ulcer 9. Possible enterocolitis noted on CT 1.11 Plan: Ok to restart tube feeds C diff and stool cultures, ova and parasite continue IVF to 125cc/hr Monitor lipase and amylase Monitor LFTs Bowel regimen Monitor HH and replace with PRBC as needed PPI BID Pt examined and plan of care discussed with Dr. Peña Result Diagram: 04/14/18 0638 04/14/18 0638 Results 24hrs Laboratory Tests Test 04/14/18 06:38 White Blood Count 5.0 Red Blood Count 2.93 L Hemoglobin 8.2 L Hematocrit 25.4 L Mean Corpuscular Volume 86.7 Mean Corpuscular Hemoglobin 28.0 L Mean Corpuscular Hemoglobin Concent 32.3 Red Cell Distribution Width 15.4 H Platelet Count 183 Mean Platelet Volume 10.1 Immature Granulocytes % 1.000 H Neutrophils % 75.4 Lymphocytes % 6.8 L Monocytes % 12.0 H Eosinophils % 3.8 Basophils % 1.0 Nucleated Red Blood Cells % 0.0 Immature Granulocytes # 0.050 H Neutrophils # 3.8 Lymphocytes # 0.3 L Monocytes # 0.6 Eosinophils # 0.2 Basophils # 0.1 Nucleated Red Blood Cells # 0.0 Sodium Level 139 Potassium Level 3.3 L Chloride Level 112 H Carbon Dioxide Level 17 L Anion Gap 10 Blood Urea Nitrogen 14 Creatinine 0.73 Est Glomerular Filtrat Rate mL/min > 60 Glucose Level 76 Calcium Level 8.4 Amylase Level 201 H Lipase 574 H Consultation Date/Type/Reason Admit Date/Time Mar 31, 2018 at 17:58 Hx of Present Illness Pt has been having smears no full bm. Pt's bowel regimen had been on hold for diarrhea. Past Medical History Medical History: congestive heart failure, coronary artery disease, hypertension, renal disease, other Medications Current Medications Acetaminophen (Tylenol Tab) 1,000 mg Q4 PRN PO MODERATE PAIN LEVEL 4-6 Last administered on 04/07/18 12:14; Admin Dose 1,000 MG; Start 03/31/18 at 18:00 Acetaminophen (Tylenol Tab) 650 mg Q4 PRN GTB MILD PAIN LEVEL 1-3 Last administered on 04/09/18 09:09; Admin Dose 650 MG; Start 03/31/18 at 18:00 Albuterol (Proventil 0.083% (Neb)) 2.5 mg Q3H PRN NEB WHEEZING AND SOB; Start 03/31/18 at 18:00 Albuterol (Proventil 0.083% (Neb)) 2.5 mg Q6 PRN NEB WHEEZING AND SOB; Start 03/31/18 at 18:00 Ascorbic Acid (Vitamin C) 500 mg DAILY GTB Last administered on 04/14/18at 10:13; Admin Dose 500 MG; Start 04/01/18 at 09:00 Bisacodyl (Dulcolax Supp) 10 mg DAILY PRN [place] CONSTIPATION; Start 03/31/18 at 18:00 Multivit/Ca Carb/ B Cmplx/FA/Prenat (Sofy-Sandoval) 1 tab DAILY GTB Last admi nistered on 04/14/18at 10:11; Admin Dose 1 TAB; Start 04/01/18 at 09:00 Zinc Sulfate (Zinc Sulfate) 220 mg DAILY GTB Last administered on 04/14/18at 10:06; Admin Dose 220 MG; Start 04/01/18 at 09:00 IV Flush (NS 3 ml) 3 ml PER PROTOCOL IV ; Start 03/31/18 at 18:30 Ondansetron HCl (Zofran Inj) 4 mg Q6H PRN IV NAUSEA AND/OR VOMITING; Start 03/31/18 at 18:30 Acetaminophen (Tylenol Tab) 650 mg Q6H PRN PO PAIN LEVEL 1-3 OR FEVER Last administered on 04/06/18at 03:55; Admin Dose 650 MG; Start 03/31/18 at 18:30 Acetaminophen (Tylenol Supp) 650 mg Q6H PRN AR PAIN LEVEL 1-3 OR FEVER Last administered on 04/02/18at 20:38; Admin Dose 650 MG; Start 03/31/18 at 18:30 Docusate Sodium (Colace) 100 mg Q12H PRN PO CONSTIPATION; Start 03/31/18 at 18:30 Alteplase, Recombinant (Cathflo (Activase)) 2 mg MAY REPEAT X1 PRN CATHETER IF CATHETER REMAINS OCCULUDED Last administered on 04/03/18at 04:24; Admin Dose 2 MG; Start 04/01/18 at 21:00 Collagenase (Santyl) 1 applic DAILY TOP Last administered on 04/14/18 10:14; Admin Dose 1 APPLIC; Start 04/03/18 at 12:00 Morphine Sulfate (morphine) 6 mg Q4H PRN GTB SEVERE PAIN LEVEL 6-10 Last administered on 04/12/18 21:10; Admin Dose 6 MG; Start 04/04/18 at 23:00 Lorazepam (Ativan) 2 mg Q4H PRN IV restless, agitation, anxiety Last administered on 04/13/18 05:23; Admin Dose 2 MG; Start 04/05/18 at 10:00 Pantoprazole (Protonix Iv) 40 mg BID@06,18 IV Last administered on 04/14/18at 05:45; Admin Dose 40 MG; Start 04/08/18 at 18:00 Polyethylene Glycol (Miralax) 17 gm DAILY GTB Last administered on 04/14/18 10:12; Admin Dose 17 GM; Start 04/08/18 at 09:00 Carvedilol (Coreg) 50 mg BID GTB Last administered on 04/14/18 10:12; Admin Dose 50 MG; Start 04/08/18 at 21:00 Tobramycin Sulfate/Sodium Chloride (Joey Inhal) 300 mg BID RESP THERAPY NEB Last administered on 04/12/18 20:29; Admin Dose 300 MG; Start 04/09/18 at 09:00 Lactated Ringer's 1,000 ml @ 125 mls/hr Q8H IV Last administered on 04/14/18 10:14; Admin Dose 125 MLS/HR; Start 04/12/18 at 09:00 Allergies: Coded Allergies: No Known Allergy (Unverified , 04/13/18) Past Surgical History Past Surgical Hx: no surgical history, other (PEG AND TRACHEOSTOMY) Social History Alcohol Use: other (HX) Smoking Status: Never smoker Exam/Review of Systems Vital Signs Vitals Vital Signs Date Temp Pulse Resp B/P (MAP) Pulse Ox O2 O2 Flow FiO2 Time Delivery Rate 04/14/18 98.0 80 22 163/97 100 Mechanical 10:16 (119) Ventilator 04/14/18 30 05:53 Intake and Output 04/13/18 04/13/18 04/14/18 1515:00 23:00 07:00 OutputOutput Total 650 ml 800 ml BalanceBalance -650 ml -800 ml Exam Gastrointestinal: soft, other (no non verbal cues to pain during palpitation, pos bowel sounds) Medications Medications Current Medications Acetaminophen (Tylenol Tab) 1,000 mg Q4 PRN PO MODERATE PAIN LEVEL 4-6 Last administered on 04/07/18at 12:14; Admin Dose 1,000 MG; Start 03/31/18 at 18:00 Acetaminophen (Tylenol Tab) 650 mg Q4 PRN GTB MILD PAIN LEVEL 1-3 Last administered on 04/09/18at 09:09; Admin Dose 650 MG; Start 03/31/18 at 18:00 Albuterol (Proventil 0.083% (Neb)) 2.5 mg Q3H PRN NEB WHEEZING AND SOB; Start 03/31/18 at 18:00 Albuterol (Proventil 0.083% (Neb)) 2.5 mg Q6 PRN NEB WHEEZING AND SOB; Start 03/31/18 at 18:00 Ascorbic Acid (Vitamin C) 500 mg DAILY GTB Last administered on 04/14/18at 1 0:13; Admin Dose 500 MG; Start 04/01/18 at 09:00 Bisacodyl (Dulcolax Supp) 10 mg DAILY PRN [place] CONSTIPATION; Start 03/31/18 at 18:00 Multivit/Ca Carb/ B Cmplx/FA/Prenat (Sofy-Sandoval) 1 tab DAILY GTB Last administered on 04/14/18at 10:11; Admin Dose 1 TAB; Start 04/01/18 at 09:00 Zinc Sulfate (Zinc Sulfate) 220 mg DAILY GTB Last administered on 04/14/18at 10:06; Admin Dose 220 MG; Start 04/01/18 at 09:00 IV Flush (NS 3 ml) 3 ml PER PROTOCOL IV ; Start 03/31/18 at 18:30 Ondansetron HCl (Zofran Inj) 4 mg Q6H PRN IV NAUSEA AND/OR VOMITING; Start 03/31/18 at 18:30 Acetaminophen (Tylenol Tab) 650 mg Q6H PRN PO PAIN LEVEL 1-3 OR FEVER Last administered on 04/06/18at 03:55; Admin Dose 650 MG; Start 03/31/18 at 18:30 Acetaminophen (Tylenol Supp) 650 mg Q6H PRN AR PAIN LEVEL 1-3 OR FEVER Last administered on 04/02/18 20:38; Admin Dose 650 MG; Start 03/31/18 at 18:30 Docusate Sodium (Colace) 100 mg Q12H PRN PO CONSTIPATION; Start 03/31/18 at 18:30 Alteplase, Recombinant (Cathflo (Activase)) 2 mg MAY REPEAT X1 PRN CATHETER IF CATHETER REMAINS OCCULUDED Last administered on 04/03/18 04:24; Admin Dose 2 MG; Start 04/01/18 at 21:00 Collagenase (Santyl) 1 applic DAILY TOP Last administered on 04/14/18 10:14; Admin Dose 1 APPLIC; Start 04/03/18 at 12:00 Morphine Sulfate (morphine) 6 mg Q4H PRN GTB SEVERE PAIN LEVEL 6-10 Last administered on 04/12/18 21:10; Admin Dose 6 MG; Start 04/04/18 at 23:00 Lorazepam (Ativan) 2 mg Q4H PRN IV restless, agitation, anxiety Last administered on 04/13/18 05:23; Admin Dose 2 MG; Start 04/05/18 at 10:00 Pantoprazole (Protonix Iv) 40 mg BID@06,18 IV Last administered on 04/14/18at 05:45; Admin Dose 40 MG; Start 04/08/18 at 18:00 Polyethylene Glycol (Miralax) 17 gm DAILY GTB Last administered on 04/14/18 10:12; Admin Dose 17 GM; Start 04/08/18 at 09:00 Carvedilol (Coreg) 50 mg BID GTB Last administered on 04/14/18 10:12; Admin Dose 50 MG; Start 04/08/18 at 21:00 Tobramycin Sulfate/Sodium Chloride (Joey Inhal) 300 mg BID RESP THERAPY NEB Last administered on 04/12/18 20:29; Admin Dose 300 MG; Start 04/09/18 at 09:00 Lactated Ringer's 1,000 ml @ 125 mls/hr Q8H IV Last administered on 04/14/18at 10:14; Admin Dose 125 MLS/HR; Start 04/12/18 at 09:00 QI CHRISTIANSON Apr 14, 2018 11:00
--- NOTE | 2018-04-14 12:20 | PN ---
Date/Time of Note Date/Time of Note DATE: 04/14/18 TIME: 12:20 Assessment/Plan VTE Prophylaxis Risk score (from [facility])>0 risk: 7 [place]CD applied [place] [facility] [place] Yes Pharmacological prophylaxis: NA/contraindicated Pharm contraindication: bleeding Lines/Catheters IV Catheter Type (from [facility]): PICC Line Central line still needed: Yes Urinary Cath still in place: Yes Reason Cath still needed: urinary retention Assessment/Plan Hospital Course # Oral gingival bleeding likely due to dentures, seen by ENT s/p endoscopy # Sepsis with Fevers with hx Pneumonia +UTI and ? Pancreatitis +multiple wounds, ucx+ lisa # Blood loss anemia due to #1 # VDRF # CKD with worseing renal failure # Metabolic acidosis # DILATED CARDIOMYOPATHY # HX ALCOHOL ABUSE # Multiple wounds > decub # hypomagnesemia Assessment/Plan -Dr Peña started tube feed - mrcp could not be done per radiology due to vent management - c.w decreased iv fluids - cw coreg - iv abx with tobramycin - no blood thinners due to anemia - GI prophylaxis - monitor oral bleeding, not seen lately - Pending neuro recs - PT/OT/Speech Result Diagram: 04/14/18 0638 04/14/18 0638 Results 24hrs Laboratory Tests Test 04/14/18 06:38 White Blood Count 5.0 Red Blood Count 2.93 L Hemoglobin 8.2 L Hematocrit 25.4 L Mean Corpuscular Volume 86.7 Mean Corpuscular Hemoglobin 28.0 L Mean Corpuscular Hemoglobin Concent 32.3 Red Cell Distribution Width 15.4 H Platelet Count 183 Mean Platelet Volume 10.1 Immature Granulocytes % 1.000 H Neutrophils % 75.4 Lymphocytes % 6.8 L Monocytes % 12.0 H Eosinophils % 3.8 Basophils % 1.0 Nucleated Red Blood Cells % 0.0 Immature Granulocytes # 0.050 H Neutrophils # 3.8 Lymphocytes # 0.3 L Monocytes # 0.6 Eosinophils # 0.2 Basophils # 0.1 Nucleated Red Blood Cells # 0.0 Sodium Level 139 Potassium Level 3.3 L Chloride Level 112 H Carbon Dioxide Level 17 L Anion Gap 10 Blood Urea Nitrogen 14 Creatinine 0.73 Est Glomerular Filtrat Rate mL/min > 60 Glucose Level 76 Calcium Level 8.4 Amylase Level 201 H Lipase 574 H Subjective 24 Hr Interval Summary Subjective hx not possible: pt non-verbal Exam/Review of Systems Vital Signs Vitals Vital Signs Date Temp Pulse Resp B/P (MAP) Pulse Ox O2 O2 Flow FiO2 Time Delivery Rate 04/14/18 72 24 100 30 11:27 04/14/18 98.0 163/97 Mechanical 10:16 (119) Ventilator Intake and Output 04/13/18 04/13/18 04/14/18 1515:00 23:00 07:00 OutputOutput Total 650 ml 800 ml BalanceBalance -650 ml -800 ml Exam Head: normocephalic Neck: supple, other (tracheostomy) Respiratory: crackles/rales, diminished breath sounds Cardiovascular: regular rate and rhythm Gastrointestinal: soft, surgical scars, other (GT) Genitourinary - Male: other (mullins) Neurological: confused Medications Medications Current Medications Acetaminophen (Tylenol Tab) 1,000 mg Q4 PRN PO MODERATE PAIN LEVEL 4-6 Last administered on 04/07/18at 12:14; Admin Dose 1,000 MG; Start 03/31/18 at 18:00 Acetaminophen (Tylenol Tab) 650 mg Q4 PRN GTB MILD PAIN LEVEL 1-3 Last administered on 04/09/18at 09:09; Admin Dose 650 MG; Start 03/31/18 at 18:00 Albuterol (Proventil 0.083% (Neb)) 2.5 mg Q3H PRN NEB WHEEZING AND SOB; Start 03/31/18 at 18:00 Albuterol (Proventil 0.083% (Neb)) 2.5 mg Q6 PRN NEB WHEEZING AND SOB; Start 03/31/18 at 18:00 Ascorbic Acid (Vitamin C) 500 mg DAILY GTB Last administered on 04/14/18at 10:13; Admin Dose 500 MG; Start 04/01/18 at 09:00 Bisacodyl (Dulcolax Supp) 10 mg DAILY PRN [place] CONSTIPATION; Start 03/31/18 at 18:00 Multivit/Ca Carb/ B Cmplx/FA/Prenat (Sofy-Sandoval) 1 tab DAILY GTB Last administered on 04/14/18at 10:11; Admin Dose 1 TAB; Start 04/01/18 at 09:00 Zinc Sulfate (Zinc Sulfate) 220 mg DAILY GTB Last administered on 04/14/18at 10:06; Admin Dose 220 MG; Start 04/01/18 at 09:00 IV Flush (NS 3 ml) 3 ml PER PROTOCOL IV ; Start 03/31/18 at 18:30 Ondansetron HCl (Zofran Inj) 4 mg Q6H PRN IV NAUSEA AND/OR VOMITING; Start 03/31/18 at 18:30 Acetaminophen (Tylenol Tab) 650 mg Q6H PRN PO PAIN LEVEL 1-3 OR FEVER Last administered on 04/06/18at 03:55; Admin Dose 650 MG; Start 03/31/18 at 18:30 Acetaminophen (Tylenol Supp) 650 mg Q6H PRN SC PAIN LEVEL 1-3 OR FEVER Last administered on 04/02/18 20:38; Admin Dose 650 MG; Start 03/31/18 at 18:30 Docusate Sodium (Colace) 100 mg Q12H PRN PO CONSTIPATION; Start 03/31/18 at 18:30 Alteplase, Recombinant (Cathflo (Activase)) 2 mg MAY REPEAT X1 PRN CATHETER IF CATHETER REMAINS OCCULUDED Last administered on 04/03/18at 04:24; Admin Dose 2 MG; Start 04/01/18 at 21:00 Collagenase (Santyl) 1 applic DAILY TOP Last administered on 04/14/18 10:14; Admin Dose 1 APPLIC; Start 04/03/18 at 12:00 Morphine Sulfate (morphine) 6 mg Q4H PRN GTB SEVERE PAIN LEVEL 6-10 Last administered on 04/12/18 21:10; Admin Dose 6 MG; Start 04/04/18 at 23:00 Lorazepam (Ativan) 2 mg Q4H PRN IV restless, agitation, anxiety Last administered on 04/13/18 05:23; Admin Dose 2 MG; Start 04/05/18 at 10:00 Pantoprazole (Protonix Iv) 40 mg BID@06,18 IV Last administered on 04/14/18 05:45; Admin Dose 40 MG; Start 04/08/18 at 18:00 Polyethylene Glycol (Miralax) 17 gm DAILY GTB Last administered on 04/14/18 10:12; Admin Dose 17 GM; Start 04/08/18 at 09:00 Carvedilol (Coreg) 50 mg BID GTB Last administered on 04/14/18 10:12; Admin Dose 50 MG; Start 04/08/18 at 21:00 Tobramycin Sulfate/Sodium Chloride (Joey Inhal) 300 mg BID RESP THERAPY NEB Last administered on 04/12/18at 20:29; Admin Dose 300 MG; Start 04/09/18 at 09:00 Lactated Ringer's 1,000 ml @ 125 mls/hr Q8H IV Last administered on 04/14/18at 10:14; Admin Dose 125 MLS/HR; Start 04/12/18 at 09:00 LETITIA BLAKELY Apr 14, 2018 12:20
--- NOTE | 2018-04-14 12:43 | CONS ---
Date/Time of Note Date/Time of Note DATE: 04/14/18 TIME: 12:43 Assessment/Plan Assessment/Plan Hospital Course ID INITIAL NOTE CURRENT ABX: DAY #= Tobra INH S/P Vanco, Cefepime-> Merrem x 12+ days S/P DIFLUCAN S/P FLAGYL 04/14/18 0638 04/14/18 0638 24H INTERVAL SUMMARY * 62 yo M, noncommunicative on the Vent, No fevers, VSS = CHART REVIEWED HAS COMPLETED COURSE ABX * Patient is confused and restless on the Vent, he requires soft wrist restraints to prevent him from pulling out tubes/lines * Spouse is present who speaks [place]an -- I used my cell phone [employer] TRANSLATE DONALDO to give her an update on the ABX treatment plan. Advised her he has completed about 2 weeks IV ABX and now OFF -- we are continuing the topical Tobra INH to attempt to decolonize TRACH. ID team will round every day on her spouse to make sure he does not develop any new infection. Spouse thanked me for using the [place]an language translation application told me "Very good -- Thank you" and gave me the "Thumbs up" sign. * CT of the abdomen and pelvis revealed questionable enterocolitis. Cholelithiasis. Tiny bilateral pleural effusions with bibasilar airspace disease. * Indwelling: Peg, Schwartz, right upper extremity PICC line, tracheostomy MICRO * MICRO: * Blood cultures remain negative. * Urine culture positive for Breanne albicans. * Endotracheal aspirate growing gram-negative rods. * Sacral wound culture growing MRSA, Breanne albicans, enterococcus, gram- negative rods. * Nares swab positive for MRSA PHYSICAL EXAMINATION: GENERAL: Afebrile, VSS HEENT: AT, NC, anicteric, moist oral membranes NECK: Supple, trach midline CHEST: Equal chest rise bilaterally, without dyspnea on observation HEART: Pulse RRR ABDOMEN: Soft EXTREMITIES: Warm, dry SKIN: No rash, no diaphoresis ID ASSESSMENT 62 yo M admit with: 1. s/p Sepsis with ongoing fevers=> RESOLVED 2. Acute pancreatitis, CT of the abdomen revealed no abscess, no pseudocyst 3. Possible enterocolitis per CT => s/p ABX including Flagyl 4. Chronic respiratory failure 5. Hx of cardiomyopathy 6. S/p gingival bleeding 7. Sinusitis = s/p ABX treatment 8. S/p Breanne albicans UTI = s/p Diflucan 9. Sacral decub (+)MRSA Nares -> s/p Vanco IV ABX ALLERGIES: NKDA INVASIVES: PICC, Trach, Peg, FC CURRENT ABX: DAY #= Tobra INH S/P Vanco, Cefepime-> Merrem x 12+ days S/P DIFLUCAN S/P FLAGYL ID RECOMMENDATIONS/PLAN: Continue Tobra INH over the weekend to off-load Trach pathogens Monitor OFF systemic ABX for recurrent sepsis * Spouse is present who speaks [place] -- I used my cell phone [employer] TRANSLATE DONALDO to give her an update on the ABX treatment plan. Advised her he has completed about 2 weeks IV ABX and now OFF -- we are continuing the topical Tobra INH to attempt to decolonize TRACH. ID team will round every day on her spouse to make sure he does not develop any new infection. Spouse thanked me for using the [place]an language translation application told me "Very good -- Thank you" and gave me the "Thumbs up" sign. . Result Diagram: 04/14/18 0638 04/14/1838 Results 24hrs Laboratory Tests Test 04/14/18 06:38 White Blood Count 5.0 Red Blood Count 2.93 L Hemoglobin 8.2 L Hematocrit 25.4 L Mean Corpuscular Volume 86.7 Mean Corpuscular Hemoglobin 28.0 L Mean Corpuscular Hemoglobin Concent 32.3 Red Cell Distribution Width 15.4 H Platelet Count 183 Mean Platelet Volume 10.1 Immature Granulocytes % 1.000 H Neutrophils % 75.4 Lymphocytes % 6.8 L Monocytes % 12.0 H Eosinophils % 3.8 Basophils % 1.0 Nucleated Red Blood Cells % 0.0 Immature Granulocytes # 0.050 H Neutrophils # 3.8 Lymphocytes # 0.3 L Monocytes # 0.6 Eosinophils # 0.2 Basophils # 0.1 Nucleated Red Blood Cells # 0.0 Sodium Level 139 Potassium Level 3.3 L Chloride Level 112 H Carbon Dioxide Level 17 L Anion Gap 10 Blood Urea Nitrogen 14 Creatinine 0.73 Est Glomerular Filtrat Rate mL/min > 60 Glucose Level 76 Calcium Level 8.4 Amylase Level 201 H Lipase 574 H Consultation Date/Type/Reason Admit Date/Time Mar 31, 2018 at 17:58 Initial Consult Date 04/02/18 Requesting Provider: TAMARA GRAJEDA MD Exam/Review of Systems Vital Signs Vitals Vital Signs Date Temp Pulse Resp B/P (MAP) Pulse Ox O2 O2 Flow FiO2 Time Delivery Rate 04/14/18 73 12:36 04/14/18 24 100 30 11:27 04/14/18 98.0 163/97 Mechanical 10:16 (119) Ventilator Intake and Output 04/13/18 04/13/18 04/14/18 1515:00 23:00 07:00 OutputOutput Total 650 ml 800 ml BalanceBalance -650 ml -800 ml Medications Medications Current Medications Acetaminophen (Tylenol Tab) 1,000 mg Q4 PRN PO MODERATE PAIN LEVEL 4-6 Last administered on 04/07/18at 12:14; Admin Dose 1,000 MG; Start 03/31/18 at 18:00 Acetaminophen (Tylenol Tab) 650 mg Q4 PRN GTB MILD PAIN LEVEL 1-3 Last administered on 04/09/18at 09:09; Admin Dose 650 MG; Start 03/31/18 at 18:00 Albuterol (Proventil 0.083% (Neb)) 2.5 mg Q3H PRN NEB WHEEZING AND SOB; Start 03/31/18 at 18:00 Albuterol (Proventil 0.083% (Neb)) 2.5 mg Q6 PRN NEB WHEEZING AND SOB; Start 03/31/18 at 18:00 Ascorbic Acid (Vitamin C) 500 mg DAILY GTB Last administered on 04/14/18at 10:13; Admin Dose 500 MG; Start 04/01/18 at 09:00 Bisacodyl (Dulcolax Supp) 10 mg DAILY PRN [place] CONSTIPATION; Start 03/31/18 at 18:00 Multivit/Ca Carb/ B Cmplx/FA/Prenat (Sofy-Sandoval) 1 tab DAILY GTB Last administered on 04/14/18at 10:11; Admin Dose 1 TAB; Start 04/01/18 at 09:00 Zinc Sulfate (Zinc Sulfate) 220 mg DAILY GTB Last administered on 04/14/18at 10:06; Admin Dose 220 MG; Start 04/01/18 at 09:00 IV Flush (NS 3 ml) 3 ml PER PROTOCOL IV ; Start 03/31/18 at 18:30 Ondansetron HCl (Zofran Inj) 4 mg Q6H PRN IV NAUSEA AND/OR VOMITING; Start 03/31/18 at 18:30 Acetaminophen (Tylenol Tab) 650 mg Q6H PRN PO PAIN LEVEL 1-3 OR FEVER Last administered on 04/06/18 03:55; Admin Dose 650 MG; Start 03/31/18 at 18:30 Acetaminophen (Tylenol Supp) 650 mg Q6H PRN NC PAIN LEVEL 1-3 OR FEVER Last administered on 04/02/18 20:38; Admin Dose 650 MG; Start 03/31/18 at 18:30 Docusate Sodium (Colace) 100 mg Q12H PRN PO CONSTIPATION; Start 03/31/18 at 18:30 Alteplase, Recombinant (Cathflo (Activase)) 2 mg MAY REPEAT X1 PRN CATHETER IF CATHETER REMAINS OCCULUDED Last administered on 04/03/18 04:24; Admin Dose 2 MG; Start 04/01/18 at 21:00 Collagenase (Santyl) 1 applic DAILY TOP Last administered on 04/14/18 10:14; Admin Dose 1 APPLIC; Start 04/03/18 at 12:00 Morphine Sulfate (morphine) 6 mg Q4H PRN GTB SEVERE PAIN LEVEL 6-10 Last administered on 04/12/18 21:10; Admin Dose 6 MG; Start 04/04/18 at 23:00 Lorazepam (Ativan) 2 mg Q4H PRN IV restless, agitation, anxiety Last administered on 04/13/18 05:23; Admin Dose 2 MG; Start 04/05/18 at 10:00 Pantoprazole (Protonix Iv) 40 mg BID@06,18 IV Last administered on 04/14/18 05:45; Admin Dose 40 MG; Start 04/08/18 at 18:00 Polyethylene Glycol (Miralax) 17 gm DAILY GTB Last administered on 04/14/18 10:12; Admin Dose 17 GM; Start 04/08/18 at 09:00 Carvedilol (Coreg) 50 mg BID GTB Last administered on 04/14/18 10:12; Admin Dose 50 MG; Start 04/08/18 at 21:00 Tobramycin Sulfate/Sodium Chloride (Joey Inhal) 300 mg BID RESP THERAPY NEB Last administered on 04/12/18 20:29; Admin Dose 300 MG; Start 04/09/18 at 09:00 Lactated Ringer's 1,000 ml @ 50 mls/hr Q20H IV Last administered on 04/14/18at 10:14; Admin Dose 125 MLS/HR; Start 04/12/18 at 09:00 Potassium Chloride (Potassium Chloride Pwd/Soln) 40 meq ONCE ONCE PO ; Start 04/14/18 at 13:00; Stop 04/14/18 at 13:01 ODIN ALBERTS NP Apr 14, 2018 12:43
[2018-04-14] MEDS ORDERED: POTASSIUM CHLORIDE 20 MEQ POWDER FOR ORAL SOLN PO ONE (13:00)
[2018-04-14] MEDS: LORAZEPAM 2 MG INJ IV PRN (22:33)
[2018-04-15] VITALS (29 sets, daily range): BP systolic 122–163; BP diastolic 66–100; PULSE 64–97; RESP 16–26
[2018-04-15] MEDS: LORAZEPAM 2 MG INJ IV PRN (02:46)
[2018-04-15] MEDS: PANTOPRAZOLE 40 MG INJ IV SCH ×2 (05:53→17:11)
--- NOTE | 2018-04-15 08:41 | CONS ---
Date/Time of Note Date/Time of Note DATE: 04/15/18 TIME: 08:38 Assessment/Plan Assessment/Plan Hospital Course 62 male with excessively bleeding gingival tissue and severe anemia 1. Severe acute on chronic anemia likely due to blood loss from #2 -improved 2. Excessive bleeding from gingival tissue -improved 3. Chronic liver disease, alcohol related 4. Mild coagulopathy 5. Pancreatitis -lipid panel wnl -CBD 6mm, LFT wnl -monitor lipase and amylase and LFTs -Radiology will not do MRCP because of vent -pt was restarted on tube feeds 04/14 and lipase and amylase went up 6. Chronic kidney disease -BUN/millinery blocker wnl 7. Encephalopathy secondary to anoxic brain injury 8. H/o duodenal ulcer 9. Possible enterocolitis noted on CT 1.11 Plan: C diff and stool cultures, ova and parasite pending continue IVF to 50cc/hr Monitor lipase and amylase closely Monitor LFTs Bowel regimen Monitor HH and replace with PRBC as needed PPI BID Pt examined and plan of care discussed with Dr. Peña Result Diagram: 04/15/18 0547 04/15/18 0547 Results 24hrs Laboratory Tests Test 04/15/18 05:47 White Blood Count 4.6 L Red Blood Count 2.93 L Hemoglobin 8.1 L Hematocrit 24.9 L Mean Corpuscular Volume 85.0 Mean Corpuscular Hemoglobin 27.6 L Mean Corpuscular Hemoglobin Concent 32.5 Red Cell Distribution Width 15.2 H Platelet Count 184 Mean Platelet Volume 10.4 Immature Granulocytes % 0.400 Neutrophils % 76.8 Lymphocytes % 6.7 L Monocytes % 11.7 H Eosinophils % 3.5 Basophils % 0.9 Nucleated Red Blood Cells % 0.0 Immature Granulocytes # 0.020 Neutrophils # 3.6 Lymphocytes # 0.3 L Monocytes # 0.5 Eosinophils # 0.2 Basophils # 0.0 Nucleated Red Blood Cells # 0.0 Sodium Level 137 Potassium Level 3.3 L Chloride Level 109 Carbon Dioxide Level 19 L Anion Gap 9 Blood Urea Nitrogen 12 Creatinine 0.69 Est Glomerular Filtrat Rate mL/min > 60 Glucose Level 103 Calcium Level 8.1 L Total Bilirubin 0.1 L Direct Bilirubin 0.00 Indirect Bilirubin 0.1 Aspartate Amino Transf (AST/SGOT) 36 Alanine Aminotransferase (ALT/SGPT) 18 Alkaline Phosphatase 61 Total Protein 5.9 L Albumin 2.3 L Globulin 3.60 H Albumin/Globulin Ratio 0.63 Amylase Level 243 H Lipase 1025 H Consultation Date/Type/Reason Admit Date/Time Mar 31, 2018 at 17:58 Initial Consult Date 04/02/18 Requesting Provider: TAMARA GRAJEDA MD 24 HR Interval Summary Free Text/Dictation Tolerating tube feeds at 35 cc. LR at 50cc. BM yesterday brown and soft. Sent for cx. Lipase and amylase have jumped up. Exam/Review of Systems Vital Signs Vitals Vital Signs Date Temp Pulse Resp B/P (MAP) Pulse Ox O2 O2 Flow FiO2 Time Delivery Rate 04/15/18 100.2 94 23 140/95 100 08:20 (110) 04/15/18 30 07:15 04/15/18 Ambu Bag 06:00 Mechanica l Ventilato r Trach Collar Intake and Output 04/14/18 04/14/18 04/15/18 1515:00 23:00 07:00 IntakeIntake Total 775 ml 525 ml OutputOutput Total 900 ml 1200 ml BalanceBalance -125 ml -675 ml Exam Gastrointestinal: soft, non-tender (no non verbal cues to pain. bowel sounds pos) Medications Medications Current Medications Acetaminophen (Tylenol Tab) 1,000 mg Q4 PRN PO MODERATE PAIN LEVEL 4-6 Last administered on 04/07/18at 12:14; Admin Dose 1,000 MG; Start 03/31/18 at 18:00 Acetaminophen (Tylenol Tab) 650 mg Q4 PRN GTB MILD PAIN LEVEL 1-3 Last administered on 04/09/18at 09:09; Admin Dose 650 MG; Start 03/31/18 at 18:00 Albuterol (Proventil 0.083% (Neb)) 2.5 mg Q3H PRN NEB WHEEZING AND SOB; Start 03/31/18 at 18:00 Albuterol (Proventil 0.083% (Neb)) 2.5 mg Q6 PRN NEB WHEEZING AND SOB; Start 03/31/18 at 18:00 Ascorbic Acid (Vitamin C) 500 mg DAILY GTB Last administered on 04/14/18at 10: 13; Admin Dose 500 MG; Start 04/01/18 at 09:00 Bisacodyl (Dulcolax Supp) 10 mg DAILY PRN [place] CONSTIPATION; Start 03/31/18 at 18:00 Multivit/Ca Carb/ B Cmplx/FA/Prenat (Sofy-Sandoval) 1 tab DAILY GTB Last a dministered on 04/14/18 10:11; Admin Dose 1 TAB; Start 04/01/18 at 09:00 Zinc Sulfate (Zinc Sulfate) 220 mg DAILY GTB Last administered on 04/14/18 10:06; Admin Dose 220 MG; Start 04/01/18 at 09:00 IV Flush (NS 3 ml) 3 ml PER PROTOCOL IV ; Start 03/31/18 at 18:30 Ondansetron HCl (Zofran Inj) 4 mg Q6H PRN IV NAUSEA AND/OR VOMITING; Start 03/31/18 at 18:30 Acetaminophen (Tylenol Tab) 650 mg Q6H PRN PO PAIN LEVEL 1-3 OR FEVER Last administered on 04/06/18 03:55; Admin Dose 650 MG; Start 03/31/18 at 18:30 Acetaminophen (Tylenol Supp) 650 mg Q6H PRN RI PAIN LEVEL 1-3 OR FEVER Last administered on 04/02/18 20:38; Admin Dose 650 MG; Start 03/31/18 at 18:30 Docusate Sodium (Colace) 100 mg Q12H PRN PO CONSTIPATION; Start 03/31/18 at 18:30 Alteplase, Recombinant (Cathflo (Activase)) 2 mg MAY REPEAT X1 PRN CATHETER IF CATHETER REMAINS OCCULUDED Last administered on 04/03/18 04:24; Admin Dose 2 MG; Start 04/01/18 at 21:00 Collagenase (Santyl) 1 applic DAILY TOP Last administered on 04/14/18 10:14; Admin Dose 1 APPLIC; Start 04/03/18 at 12:00 Morphine Sulfate (morphine) 6 mg Q4H PRN GTB SEVERE PAIN LEVEL 6-10 Last administered on 04/12/18 21:10; Admin Dose 6 MG; Start 04/04/18 at 23:00 Lorazepam (Ativan) 2 mg Q4H PRN IV restless, agitation, anxiety Last administered on 04/15/18 02:46; Admin Dose 2 MG; Start 04/05/18 at 10:00 Pantoprazole (Protonix Iv) 40 mg BID@18 IV Last administered on 1/21/19at 05:53; Admin Dose 40 MG; Start 04/08/18 at 18:00 Polyethylene Glycol (Miralax) 17 gm DAILY GTB Last administered on 04/14/18 10:12; Admin Dose 17 GM; Start 04/08/18 at 09:00 Carvedilol (Coreg) 50 mg BID GTB Last administered on 04/14/18at 21:36; Admin Dose 50 MG; Start 04/08/18 at 21:00 Tobramycin Sulfate/Sodium Chloride (Joey Inhal) 300 mg BID RESP THERAPY NEB Last administered on 04/14/18at 20:23; Admin Dose 300 MG; Start 04/09/18 at 09:00 Lactated Ringer's 1,000 ml @ 50 mls/hr Q20H IV Last administered on 04/14/18 10:14; Admin Dose 125 MLS/HR; Start 04/12/18 at 09:00 QI CHRISTIANSON Apr 15, 2018 08:41
[2018-04-15] MEDS: ACETAMINOPHEN 325 MG TAB GTB PRN (09:04)
[2018-04-15] MEDS: POLYETHYLENE GLYCOL 17 GM PACKET GTB SCH (09:04)
[2018-04-15] MEDS: COLLAGENASE 5 GM (UD JAR) TOP SCH (09:04)
[2018-04-15] MEDS: ASCORBIC ACID 500 MG TAB GTB SCH (09:05)
[2018-04-15] MEDS: ZINC SULFATE 220 MG CAP GTB SCH (09:05)
[2018-04-15] MEDS: BALSAM PERU/CASTOR OIL 60 GM TUBE TOP SCH ×2 (09:05→21:56)
[2018-04-15] MEDS: MULTIVIT/CA CARB/B CMPLX/FA TAB GTB SCH (09:05)
[2018-04-15] MEDS: TOBRAMYCIN/0.25NS 300 MG/5 ML INHAL NEB SCH (09:09)
[2018-04-15] MEDS ORDERED: POTASSIUM CHLORIDE (SR) 20 MEQ TAB PO STA (10:06)
--- NOTE | 2018-04-15 12:08 | PN ---
Date/Time of Note Date/Time of Note DATE: 04/15/18 TIME: 12:05 Assessment/Plan VTE Prophylaxis Risk score (from [facility]0 risk: 9 SCD applied (from [facility]): Yes Pharmacological prophylaxis: NA/contraindicated Pharm contraindication: low risk/ambulating Lines/Catheters IV Catheter Type (from [facility]): PICC Line Central line still needed: Yes Urinary Cath still in place: Yes Reason Cath still needed: urinary retention Assessment/Plan Hospital Course 62 y/o with # Oral gingival bleeding likely due to dentures, seen by ENT s/p endoscopy # Sepsis with Fevers with hx Pneumonia +UTI and ? Pancreatitis +multiple wounds, ucx+ lisa, wound cx+ MRSA/ pseudomonas, +resp culture +pseudomonas # Blood loss anemia due to oral gingival bleeding # VDRF # CKD with worsening renal failure>resolved # Metabolic acidosis #DILATED CARDIOMYOPATHY # HX ALCOHOL ABUSE # Multiple wounds > decub # Pancreatitis with elevated Lipase # Enterocoltiis on CT # AMS due to Metabolic encephalopathy with . Possible subacute infarct in the left cerebellar hemisphere and cerebellar peduncle> much improved Plan - feeding started - ? off tobramycin - mrcp pending> could not be done due to artifact issues -- dc fluids -abx per ID - no blood thinners due to anemia - GI prophylaxsis - monitor oral bleeding - PT/OT/Speech DC planning spoke to does not wnat him to go back to [facility] due to wounds Result Diagram: 04/15/18 0547 04/15/18 0547 Results 24hrs Laboratory Tests Test 04/15/18 05:47 White Blood Count 4.6 L Red Blood Count 2.93 L Hemoglobin 8.1 L Hematocrit 24.9 L Mean Corpuscular Volume 85.0 Mean Corpuscular Hemoglobin 27.6 L Mean Corpuscular Hemoglobin Concent 32.5 Red Cell Distribution Width 15.2 H Platelet Count 184 Mean Platelet Volume 10.4 Immature Granulocytes % 0.400 Neutrophils % 76.8 Lymphocytes % 6.7 L Monocytes % 11.7 H Eosinophils % 3.5 Basophils % 0.9 Nucleated Red Blood Cells % 0.0 Immature Granulocytes # 0.020 Neutrophils # 3.6 Lymphocytes # 0.3 L Monocytes # 0.5 Eosinophils # 0.2 Basophils # 0.0 Nucleated Red Blood Cells # 0.0 Sodium Level 137 Potassium Level 3.3 L Chloride Level 109 Carbon Dioxide Level 19 L Anion Gap 9 Blood Urea Nitrogen 12 Creatinine 0.69 Est Glomerular Filtrat Rate mL/min > 60 Glucose Level 103 Calcium Level 8.1 L Total Bilirubin 0.1 L Direct Bilirubin 0.00 Indirect Bilirubin 0.1 Aspartate Amino Transf (AST/SGOT) 36 Alanine Aminotransferase (ALT/SGPT) 18 Alkaline Phosphatase 61 Total Protein 5.9 L Albumin 2.3 L Globulin 3.60 H Albumin/Globulin Ratio 0.63 Amylase Level 243 H Lipase 1025 H Subjective 24 Hr Interval Summary Free Text/Dictation low grade fevers this am on feeding Exam/Review of Systems Vital Signs Vitals Vital Signs Date Temp Pulse Resp B/P (MAP) Pulse Ox O2 O2 Flow FiO2 Time Delivery Rate 04/15/18 92 23 100 30 11:00 04/15/18 157/100 10:28 (119) 04/15/18 98.2 Mechanical 10:12 Ventilator Intake and Output 04/14/18 04/14/18 04/15/18 1515:00 23:00 07:00 IntakeIntake Total 775 ml 525 ml OutputOutput Total 900 ml 1200 ml BalanceBalance -125 ml -675 ml Exam Head: normocephalic Neck: supple, other (tracheostomy) Respiratory: diminished breath sounds Cardiovascular: regular rate and rhythm Gastrointestinal: soft, surgical scars, other (GT) Genitourinary - Male: other (mullins) Neurological: responds to questions Medications Medications Current Medications Acetaminophen (Tylenol Tab) 1,000 mg Q4 PRN PO MODERATE PAIN LEVEL 4-6 Last administered on 04/07/18at 12:14; Admin Dose 1,000 MG; Start 03/31/18 at 18:00 Acetaminophen (Tylenol Tab) 650 mg Q4 PRN GTB MILD PAIN LEVEL 1-3 Last administered on 04/15/18at 09:04; Admin Dose 650 MG; Start 03/31/18 at 18:00 Albuterol (Proventil 0.083% (Neb)) 2.5 mg Q3H PRN NEB WHEEZING AND SOB; Start 03/31/18 at 18:00 Albuterol (Proventil 0.083% (Neb)) 2.5 mg Q6 PRN NEB WHEEZING AND SOB; Start 03/31/18 at 18:00 Ascorbic Acid (Vitamin C) 500 mg DAILY GTB Last administered on 04/15/18at 09: 05; Admin Dose 500 MG; Start 04/01/18 at 09:00 Bisacodyl (Dulcolax Supp) 10 mg DAILY PRN [place] CONSTIPATION; Start 03/31/18 at 18:00 Multivit/Ca Carb/ B Cmplx/FA/Prenat (Sofy-Sandoval) 1 tab DAILY GTB Last a dministered on 04/15/18 09:05; Admin Dose 1 TAB; Start 04/01/18 at 09:00 Zinc Sulfate (Zinc Sulfate) 220 mg DAILY GTB Last administered on 04/15/18 09:05; Admin Dose 220 MG; Start 04/01/18 at 09:00 IV Flush (NS 3 ml) 3 ml PER PROTOCOL IV ; Start 03/31/18 at 18:30 Ondansetron HCl (Zofran Inj) 4 mg Q6H PRN IV NAUSEA AND/OR VOMITING; Start 03/31/18 at 18:30 Acetaminophen (Tylenol Tab) 650 mg Q6H PRN PO PAIN LEVEL 1-3 OR FEVER Last administered on 04/06/18 03:55; Admin Dose 650 MG; Start 03/31/18 at 18:30 Acetaminophen (Tylenol Supp) 650 mg Q6H PRN LA PAIN LEVEL 1-3 OR FEVER Last administered on 04/02/18 20:38; Admin Dose 650 MG; Start 03/31/18 at 18:30 Docusate Sodium (Colace) 100 mg Q12H PRN PO CONSTIPATION; Start 03/31/18 at 18:30 Alteplase, Recombinant (Cathflo (Activase)) 2 mg MAY REPEAT X1 PRN CATHETER IF CATHETER REMAINS OCCULUDED Last administered on 04/03/18 04:24; Admin Dose 2 MG; Start 04/01/18 at 21:00 Collagenase (Santyl) 1 applic DAILY TOP Last administered on 04/15/18 09:04; Admin Dose 1 APPLIC; Start 04/03/18 at 12:00 Morphine Sulfate (morphine) 6 mg Q4H PRN GTB SEVERE PAIN LEVEL 6-10 Last administered on 04/12/18 21:10; Admin Dose 6 MG; Start 04/04/18 at 23:00 Lorazepam (Ativan) 2 mg Q4H PRN IV restless, agitation, anxiety Last administered on 1/21/19at 02:46; Admin Dose 2 MG; Start 04/05/18 at 10:00 Pantoprazole (Protonix Iv) 40 mg BID@06,18 IV Last administered on 04/15/18 05:53; Admin Dose 40 MG; Start 04/08/18 at 18:00 Polyethylene Glycol (Miralax) 17 gm DAILY GTB Last administered on 04/15/18 09:04; Admin Dose 17 GM; Start 04/08/18 at 09:00 Carvedilol (Coreg) 50 mg BID GTB Last administered on 04/15/18at 09:05; Admin Dose 50 MG; Start 04/08/18 at 21:00 Tobramycin Sulfate/Sodium Chloride (Joey Inhal) 300 mg BID RESP THERAPY NEB Last administered on 04/15/18 09:09; Admin Dose 300 MG; Start 04/09/18 at 09:00 Lactated Ringer's 1,000 ml @ 50 mls/hr Q20H IV Last administered on 04/14/18at 10:14; Admin Dose 125 MLS/HR; Start 04/12/18 at 09:00 TAMARA GRAJEDA MD Apr 15, 2018 12:08
--- NOTE | 2018-04-15 12:33 | CONS ---
Date/Time of Note Date/Time of Note DATE: 04/15/18 TIME: 12:27 Assessment/Plan Assessment/Plan Hospital Course ID INITIAL NOTE CURRENT ABX: DAY #= Tobra INH S/P Vanco, Cefepime-> Merrem x 12+ days S/P DIFLUCAN S/P FLAGYL 04/15/18 0547 04/15/18 0547 24H INTERVAL SUMMARY * Clinically stable -- DC PLANNING D/W DR. GRAJEDA * 62 yo M, noncommunicative on the Vent, No fevers, VSS = CHART REVIEWED HAS COMPLETED COURSE ABX * Patient is confused and restless on the Vent, he requires soft wrist restraints to prevent him from pulling out tubes/lines * SIRS w/hx of pancreatitis == low grade temp OFF ABX MICRO * MICRO: * Blood cultures remain negative. * Urine culture positive for Breanne albicans. * Endotracheal aspirate growing gram-negative rods. * Sacral wound culture growing MRSA, Breanne albicans, enterococcus, gram- negative rods. * Nares swab positive for MRSA PHYSICAL EXAMINATION: GENERAL: Afebrile, VSS HEENT: AT, NC, anicteric, moist oral membranes NECK: Supple, trach midline CHEST: Equal chest rise bilaterally, without dyspnea on observation HEART: Pulse RRR ABDOMEN: Soft EXTREMITIES: Warm, dry SKIN: No rash, no diaphoresis ID ASSESSMENT 62 yo M admit with: 1. s/p Sepsis with ongoing fevers=> RESOLVED 2. Acute pancreatitis, CT of the abdomen revealed no abscess, no pseudocyst 3. Possible enterocolitis per CT => s/p ABX including Flagyl 4. Chronic respiratory failure 5. Hx of cardiomyopathy 6. S/p gingival bleeding 7. Sinusitis = s/p ABX treatment 8. S/p Breanne albicans UTI = s/p Diflucan 9. Sacral decub (+)MRSA Nares -> s/p Vanco IV ABX ALLERGIES: NKDA INVASIVES: PICC, Trach, Peg, FC CURRENT ABX: DAY #= Tobra INH S/P Vanco, Cefepime-> Merrem x 12+ days S/P DIFLUCAN S/P FLAGYL ID RECOMMENDATIONS/PLAN: Continue Tobra INH over the weekend to off-load Trach pathogens TNS to SNF DC planning in process - Will Rx Doxycycline + Bactroban for MRSA nares decolonization May DC SNF OFF ISOLATION w/Tx for MRSA Nares . Result Diagram: 04/15/18 0547 04/15/18 0547 Results 24hrs Laboratory Tests Test 04/15/18 05:47 White Blood Count 4.6 L Red Blood Count 2.93 L Hemoglobin 8.1 L Hematocrit 24.9 L Mean Corpuscular Volume 85.0 Mean Corpuscular Hemoglobin 27.6 L Mean Corpuscular Hemoglobin Concent 32.5 Red Cell Distribution Width 15.2 H Platelet Count 184 Mean Platelet Volume 10.4 Immature Granulocytes % 0.400 Neutrophils % 76.8 Lymphocytes % 6.7 L Monocytes % 11.7 H Eosinophils % 3.5 Basophils % 0.9 Nucleated Red Blood Cells % 0.0 Immature Granulocytes # 0.020 Neutrophils # 3.6 Lymphocytes # 0.3 L Monocytes # 0.5 Eosinophils # 0.2 Basophils # 0.0 Nucleated Red Blood Cells # 0.0 Sodium Level 137 Potassium Level 3.3 L Chloride Level 109 Carbon Dioxide Level 19 L Anion Gap 9 Blood Urea Nitrogen 12 Creatinine 0.69 Est Glomerular Filtrat Rate mL/min > 60 Glucose Level 103 Calcium Level 8.1 L Total Bilirubin 0.1 L Direct Bilirubin 0.00 Indirect Bilirubin 0.1 Aspartate Amino Transf (AST/SGOT) 36 Alanine Aminotransferase (ALT/SGPT) 18 Alkaline Phosphatase 61 Total Protein 5.9 L Albumin 2.3 L Globulin 3.60 H Albumin/Globulin Ratio 0.63 Amylase Level 243 H Lipase 1025 H Consultation Date/Type/Reason Admit Date/Time Mar 31, 2018 at 17:58 Initial Consult Date 04/02/18 Requesting Provider: TAMARA GRAJEDA MD Exam/Review of Systems Vital Signs Vitals Vital Signs Date Temp Pulse Resp B/P (MAP) Pulse Ox O2 O2 Flow FiO2 Time Delivery Rate 04/15/18 98.4 89 23 122/88 100 12:05 (99) 04/15/18 30 11:00 04/15/18 Mechanical 10:12 Ventilator Intake and Output 04/14/18 04/14/18 04/15/18 1515:00 23:00 07:00 IntakeIntake Total 775 ml 525 ml OutputOutput Total 900 ml 1200 ml BalanceBalance -125 ml -675 ml Medications Medications Current Medications Acetaminophen (Tylenol Tab) 1,000 mg Q4 PRN PO MODERATE PAIN LEVEL 4-6 Last administered on 04/07/18at 12:14; Admin Dose 1,000 MG; Start 03/31/18 at 18:00 Acetaminophen (Tylenol Tab) 650 mg Q4 PRN GTB MILD PAIN LEVEL 1-3 Last administered on 04/15/18 09:04; Admin Dose 650 MG; Start 03/31/18 at 18:00 Albuterol (Proventil 0.083% (Neb)) 2.5 mg Q3H PRN NEB WHEEZING AND SOB; Start 03/31/18 at 18:00 Albuterol (Proventil 0.083% (Neb)) 2.5 mg Q6 PRN NEB WHEEZING AND SOB; Start 03/31/18 at 18:00 Ascorbic Acid (Vitamin C) 500 mg DAILY GTB Last administered on 04/15/18at 09:05; Admin Dose 500 MG; Start 04/01/18 at 09:00 Bisacodyl (Dulcolax Supp) 10 mg DAILY PRN [place] CONSTIPATION; Start 03/31/18 at 18:00 Multivit/Ca Carb/ B Cmplx/FA/Prenat (Sofy-Sandoval) 1 tab DAILY GTB Last administered on 04/15/18at 09:05; Admin Dose 1 TAB; Start 04/01/18 at 09:00 Zinc Sulfate (Zinc Sulfate) 220 mg DAILY GTB Last administered on 04/15/18at 09:05; Admin Dose 220 MG; Start 04/01/18 at 09:00 IV Flush (NS 3 ml) 3 ml PER PROTOCOL IV ; Start 03/31/18 at 18:30 Ondansetron HCl (Zofran Inj) 4 mg Q6H PRN IV NAUSEA AND/OR VOMITING; Start 03/31/18 at 18:30 Acetaminophen (Tylenol Tab) 650 mg Q6H PRN PO PAIN LEVEL 1-3 OR FEVER Last a dministered on 04/06/18at 03:55; Admin Dose 650 MG; Start 03/31/18 at 18:30 Acetaminophen (Tylenol Supp) 650 mg Q6H PRN [place] PAIN LEVEL 1-3 OR FEVER Last administered on 04/02/18at 20:38; Admin Dose 650 MG; Start 03/31/18 at 18:30 Docusate Sodium (Colace) 100 mg Q12H PRN PO CONSTIPATION; Start 03/31/18 at 18:30 Alteplase, Recombinant (Cathflo (Activase)) 2 mg MAY REPEAT X1 PRN CATHETER IF CATHETER REMAINS OCCULUDED Last administered on 04/03/18 04:24; Admin Dose 2 MG; Start 04/01/18 at 21:00 Collagenase (Santyl) 1 applic DAILY TOP Last administered on 04/15/18 09:04; Admin Dose 1 APPLIC; Start 04/03/18 at 12:00 Morphine Sulfate (morphine) 6 mg Q4H PRN GTB SEVERE PAIN LEVEL 6-10 Last administered on 04/12/18 21:10; Admin Dose 6 MG; Start 04/04/18 at 23:00 Lorazepam (Ativan) 2 mg Q4H PRN IV restless, agitation, anxiety Last administered on 04/15/18at 02:46; Admin Dose 2 MG; Start 04/05/18 at 10:00 Pantoprazole (Protonix Iv) 40 mg BID@06,18 IV Last administered on 04/15/18 05:53; Admin Dose 40 MG; Start 04/08/18 at 18:00 Polyethylene Glycol (Miralax) 17 gm DAILY GTB Last administered on 04/15/18 09:04; Admin Dose 17 GM; Start 04/08/18 at 09:00 Carvedilol (Coreg) 50 mg BID GTB Last administered on 04/15/18 09:05; Admin Dose 50 MG; Start 04/08/18 at 21:00 Tobramycin Sulfate/Sodium Chloride (Joey Inhal) 300 mg BID RESP THERAPY NEB Last administered on 04/15/18 09:09; Admin Dose 300 MG; Start 04/09/18 at 09:00 Aspirin (Halfprin) 81 mg DAILY PO ; Start 04/15/18 at 12:30; Status ODIN HUGGINS NP Apr 15, 2018 12:33
[2018-04-15] MEDS: ASPIRIN (EC) 81 MG TAB PO SCH (12:56)
--- NOTE | 2018-04-15 14:05 | CONS ---
Date/Time of Note Date/Time of Note DATE: 04/15/18 TIME: 14:04 Consult Date/Type/Reason Admit Date/Time Mar 31, 2018 at 17:58 Initial Consult Date 04/02/18 Type of Consultation: Pulmonary Requesting Provider: TAMARA GRAJEDA MD Subjective Patient stable no new events Objective Vital Signs Date Temp Pulse Resp B/P (MAP) Pulse Ox O2 O2 Flow FiO2 Time Delivery Rate 04/15/18 80 20 100 30 13:10 04/15/18 98.6 129/84 Mechanical 12:29 (99) Ventilator Intake and Output 04/14/18 04/14/18 04/15/18 1515:00 23:00 07:00 IntakeIntake Total 775 ml 525 ml OutputOutput Total 900 ml 1200 ml BalanceBalance -125 ml -675 ml Exam GENERAL: Chronically ill-appearing gentleman on mechanical ventilation VITAL SIGNS: per chart NECK: Supple. No JVD or lymphadenopathy. Trach site clean CARDIAC EXAM: S1, S2. No added sounds or murmurs. CHEST: clear bilaterally, No added sounds, rales or wheezes ABDOMEN: Soft, nontender. No guarding or rebound. EXTREMITIES: No cyanosis, clubbing or edema. NEUROLOGIC: Generalized weakness. No focal deficits. Results/Medications Result Diagram: 04/15/18 0547 04/15/18 0547 Results 24 hrs Laboratory Tests Test 04/15/18 05:47 White Blood Count 4.6 L Red Blood Count 2.93 L Hemoglobin 8.1 L Hematocrit 24.9 L Mean Corpuscular Volume 85.0 Mean Corpuscular Hemoglobin 27.6 L Mean Corpuscular Hemoglobin Concent 32.5 Red Cell Distribution Width 15.2 H Platelet Count 184 Mean Platelet Volume 10.4 Immature Granulocytes % 0.400 Neutrophils % 76.8 Lymphocytes % 6.7 L Monocytes % 11.7 H Eosinophils % 3.5 Basophils % 0.9 Nucleated Red Blood Cells % 0.0 Immature Granulocytes # 0.020 Neutrophils # 3.6 Lymphocytes # 0.3 L Monocytes # 0.5 Eosinophils # 0.2 Basophils # 0.0 Nucleated Red Blood Cells # 0.0 Sodium Level 137 Potassium Level 3.3 L Chloride Level 109 Carbon Dioxide Level 19 L Anion Gap 9 Blood Urea Nitrogen 12 Creatinine 0.69 Est Glomerular Filtrat Rate mL/min > 60 Glucose Level 103 Calcium Level 8.1 L Total Bilirubin 0.1 L Direct Bilirubin 0.00 Indirect Bilirubin 0.1 Aspartate Amino Transf (AST/SGOT) 36 Alanine Aminotransferase (ALT/SGPT) 18 Alkaline Phosphatase 61 Total Protein 5.9 L Albumin 2.3 L Globulin 3.60 H Albumin/Globulin Ratio 0.63 Amylase Level 243 H Lipase 1025 H Medications Current Medications Acetaminophen (Tylenol Tab) 1,000 mg Q4 PRN PO MODERATE PAIN LEVEL 4-6 Last administered on 04/07/18 12:14; Admin Dose 1,000 MG; Start 03/31/18 at 18:00 Acetaminophen (Tylenol Tab) 650 mg Q4 PRN GTB MILD PAIN LEVEL 1-3 Last administered on 04/15/18 09:04; Admin Dose 650 MG; Start 03/31/18 at 18:00 Albuterol (Proventil 0.083% (Neb)) 2.5 mg Q3H PRN NEB WHEEZING AND SOB; Start 03/31/18 at 18:00 Albuterol (Proventil 0.083% (Neb)) 2.5 mg Q6 PRN NEB WHEEZING AND SOB; Start 03/31/18 at 18:00 Ascorbic Acid (Vitamin C) 500 mg DAILY GTB Last administered on 04/15/18at 09:05; Admin Dose 500 MG; Start 04/01/18 at 09:00 Bisacodyl (Dulcolax Supp) 10 mg DAILY PRN [place] CONSTIPATION; Start 03/31/18 at 18:00 Multivit/Ca Carb/ B Cmplx/FA/Prenat (Sofy-Sandoval) 1 tab DAILY GTB Last administered on 04/15/18at 09:05; Admin Dose 1 TAB; Start 04/01/18 at 09:00 Zinc Sulfate (Zinc Sulfate) 220 mg DAILY GTB Last administered on 04/15/18at 09:05; Admin Dose 220 MG; Start 04/01/18 at 09:00 IV Flush (NS 3 ml) 3 ml PER PROTOCOL IV ; Start 03/31/18 at 18:30 Ondansetron HCl (Zofran Inj) 4 mg Q6H PRN IV NAUSEA AND/OR VOMITING; Start 03/31/18 at 18:30 Acetaminophen (Tylenol Tab) 650 mg Q6H PRN PO PAIN LEVEL 1-3 OR FEVER Last administered on 04/06/18 03:55; Admin Dose 650 MG; Start 03/31/18 at 18:30 Acetaminophen (Tylenol Supp) 650 mg Q6H PRN ID PAIN LEVEL 1-3 OR FEVER Last administered on 04/02/18 20:38; Admin Dose 650 MG; Start 03/31/18 at 18:30 Docusate Sodium (Colace) 100 mg Q12H PRN PO CONSTIPATION; Start 03/31/18 at 18:30 Alteplase, Recombinant (Cathflo (Activase)) 2 mg MAY REPEAT X1 PRN CATHETER IF CATHETER REMAINS OCCULUDED Last administered on 04/03/18 04:24; Admin Dose 2 MG; Start 04/01/18 at 21:00 Collagenase (Santyl) 1 applic DAILY TOP Last administered on 04/15/18 09:04; Admin Dose 1 APPLIC; Start 04/03/18 at 12:00 Morphine Sulfate (morphine) 6 mg Q4H PRN GTB SEVERE PAIN LEVEL 6-10 Last administered on 04/12/18 21:10; Admin Dose 6 MG; Start 04/04/18 at 23:00 Lorazepam (Ativan) 2 mg Q4H PRN IV restless, agitation, anxiety Last administered on 04/15/18 02:46; Admin Dose 2 MG; Start 04/05/18 at 10:00 Pantoprazole (Protonix Iv) 40 mg BID@06,18 IV Last administered on 04/15/18 05:53; Admin Dose 40 MG; Start 04/08/18 at 18:00 Polyethylene Glycol (Miralax) 17 gm DAILY GTB Last administered on 04/15/18 09:04; Admin Dose 17 GM; Start 04/08/18 at 09:00 Carvedilol (Coreg) 50 mg BID GTB Last administered on 04/15/18 09:05; Admin Dose 50 MG; Start 04/08/18 at 21:00 Tobramycin Sulfate/Sodium Chloride (Joey Inhal) 300 mg BID RESP THERAPY NEB Last administered on 04/15/18 09:09; Admin Dose 300 MG; Start 04/09/18 at 09:00 Aspirin (Halfprin) 81 mg DAILY PO Last administered on 04/15/18 12:56; Admin Dose 81 MG; Start 04/15/18 at 12:30 Miscellaneous Information (* Miscellaneous Pharmacy Order) 100 ea ONCE XX ; Start 04/15/18 at 12:30; Status UNV Assessment/Plan Chief Complaint/Hosp Course Assessment 1. Vent dependent respiratory failure 2. Anemia from upper airway bleed 3. Chronic encephalopathy 4. Dysphagia with G-tube Plan 1. Monitor H&H 2. Continue mechanical ventilation 3. GI recs 4. DVT and GI prophylaxis dc planning ? SIRIA PISANO MD, [facility] Apr 15, 2018 14:05
--- NOTE | 2018-04-15 16:43 | CONS ---
Assessment/Plan Assessment/Plan Hospital Course 62 M c/ Hx of methamphetamine/ETOH abuse c/b cirrhosis and dilated cardiomyopathy... and other comorbidities, admitted for evaluation of gingival bleeding..and fevers.... Neurology is consulted to evaluate encephalopathy and assess prognosis for meaningful neurologic recovery.. Of note, review of OSH records is notable for the absence of prior cardiac arrest... The clinical picture suggests an acute toxic-metabolic (?on chronic) encephalopathy...which has shown significant improvement.. MRI brain is concerning for a subacute cerebellar infarction, though it is limited by motion.. EEG is without epileptiform activity. His prognosis for meaningful neurologic recovery is guarded (ie wholly dependent on medical improvement)... P: Cont asa for secondary stroke prevention as medically able; LDL is at goal.. Limit sedating medications where possible PT/OT/ST as able Continued medical management and supportive care per primary Will follow Result Diagram: 04/15/18 0547 04/15/18 0547 Results 24hrs Laboratory Tests Test 04/15/18 05:47 White Blood Count 4.6 L Red Blood Count 2.93 L Hemoglobin 8.1 L Hematocrit 24.9 L Mean Corpuscular Volume 85.0 Mean Corpuscular Hemoglobin 27.6 L Mean Corpuscular Hemoglobin Concent 32.5 Red Cell Distribution Width 15.2 H Platelet Count 184 Mean Platelet Volume 10.4 Immature Granulocytes % 0.400 Neutrophils % 76.8 Lymphocytes % 6.7 L Monocytes % 11.7 H Eosinophils % 3.5 Basophils % 0.9 Nucleated Red Blood Cells % 0.0 Immature Granulocytes # 0.020 Neutrophils # 3.6 Lymphocytes # 0.3 L Monocytes # 0.5 Eosinophils # 0.2 Basophils # 0.0 Nucleated Red Blood Cells # 0.0 Sodium Level 137 Potassium Level 3.3 L Chloride Level 109 Carbon Dioxide Level 19 L Anion Gap 9 Blood Urea Nitrogen 12 Creatinine 0.69 Est Glomerular Filtrat Rate mL/min > 60 Glucose Level 103 Calcium Level 8.1 L Total Bilirubin 0.1 L Direct Bilirubin 0.00 Indirect Bilirubin 0.1 Aspartate Amino Transf (AST/SGOT) 36 Alanine Aminotransferase (ALT/SGPT) 18 Alkaline Phosphatase 61 Total Protein 5.9 L Albumin 2.3 L Globulin 3.60 H Albumin/Globulin Ratio 0.63 Amylase Level 243 H Lipase 1025 H Consultation Date/Type/Reason Admit Date/Time Mar 31, 2018 at 17:58 Type of Consult Neurology Requesting Provider: TAMARA GRAJEDA MD Date/Time of Note DATE: 04/15/18 TIME: 16:43 24 HR Interval Summary Free Text/Dictation Continues telemetry monitoring. No acute events or changes in pt condition reported. Subjective hx not possible: pt non-verbal Exam Vital Signs Vitals Vital Signs Date Temp Pulse Resp B/P (MAP) Pulse Ox O2 O2 Flow FiO2 Time Delivery Rate 04/15/18 76 16 100 30 15:15 04/15/18 98.3 144/66 Mechanical 14:32 (92) Ventilator Intake and Output 04/14/18 04/14/18 04/15/18 1515:00 23:00 07:00 IntakeIntake Total 775 ml 525 ml OutputOutput Total 900 ml 1200 ml BalanceBalance -125 ml -675 ml Exam PE: Gen Appearance: No Apparent Distress HEENT: Trach Cardiovascular: Regular rate Abdomen: Soft Extremities: Dry NE: The patient was alert, increasingly verbal despite trach...able to follow simple commands.. Cranial nerve examination was limited by mental status. Pupils were equal and reactive to light. There was no afferent pupillary defect. Funduscopic examination was limited. Face was grossly symmetric, w/ present corneal and coug h reflexes. Tone was normal. Muscle bulk was normal. I did not see fasciculations. The patient moved his limbs grossly symmetrically. Coordination and gait testing was limited by mental status. Arm and leg reflexes were within normal limits and symmetric. Maguire's sign was absent. Plantar responses were flexor. ANURAG PRESSLEY NP Apr 15, 2018 16:43 MANDO PINO Apr 15, 2018 19:45
[2018-04-16] VITALS (26 sets, daily range): BP systolic 135–154; BP diastolic 91–112; PULSE 72–116; RESP 16–28
[2018-04-16] MEDS: PANTOPRAZOLE 40 MG INJ IV SCH ×2 (06:09→17:44)
[2018-04-16] MEDS: MULTIVIT/CA CARB/B CMPLX/FA TAB GTB SCH (09:11)
[2018-04-16] MEDS: ASPIRIN (EC) 81 MG TAB PO SCH (09:11)
[2018-04-16] MEDS: POLYETHYLENE GLYCOL 17 GM PACKET GTB SCH (09:11)
[2018-04-16] MEDS: COLLAGENASE 5 GM (UD JAR) TOP SCH (09:11)
[2018-04-16] MEDS: ZINC SULFATE 220 MG CAP GTB SCH (09:11)
[2018-04-16] MEDS: ASCORBIC ACID 500 MG TAB GTB SCH (09:11)
[2018-04-16] MEDS: BALSAM PERU/CASTOR OIL 60 GM TUBE TOP SCH ×2 (09:12→21:48)
[2018-04-16] MEDS ORDERED: MUPIROCIN 2% 22 GM OINT TOP SCH (09:30)
--- NOTE | 2018-04-16 11:33 | CONS ---
Date/Time of Note Date/Time of Note DATE: 04/16/18 TIME: 11:32 Consult Date/Type/Reason Admit Date/Time Mar 31, 2018 at 17:58 Initial Consult Date 04/02/18 Type of Consultation: Pulmonary Requesting Provider: TAMARA GRAJEDA MD Subjective Somnolent Objective Vital Signs Date Temp Pulse Resp B/P (MAP) Pulse Ox O2 O2 Flow FiO2 Time Delivery Rate 04/16/18 98.7 99 20 140/103 99 Mechanical 10:00 (115) Ventilator 04/16/18 30 09:10 Intake and Output 04/15/18 04/15/18 04/16/18 1515:00 23:00 07:00 IntakeIntake Total 950 ml 520 ml OutputOutput Total 800 ml 600 ml BalanceBalance 150 ml -80 ml Exam GENERAL: Chronically ill-appearing gentleman on mechanical ventilation VITAL SIGNS: per chart NECK: Supple. No JVD or lymphadenopathy. Trach site clean CARDIAC EXAM: S1, S2. No added sounds or murmurs. CHEST: clear bilaterally, No added sounds, rales or wheezes ABDOMEN: Soft, nontender. No guarding or rebound. EXTREMITIES: No cyanosis, clubbing or edema. NEUROLOGIC: Generalized weakness. No focal deficits. Results/Medications Result Diagram: 04/16/18 0622 04/15/18 0547 Results 24 hrs Laboratory Tests Test 04/16/18 06:22 White Blood Count 5.4 Red Blood Count 3.15 L Hemoglobin 8.9 L Hematocrit 26.8 L Mean Corpuscular Volume 85.1 Mean Corpuscular Hemoglobin 28.3 L Mean Corpuscular Hemoglobin Concent 33.2 Red Cell Distribution Width 15.3 H Platelet Count 189 Mean Platelet Volume 10.6 H Immature Granulocytes % 0.600 H Neutrophils % 73.3 Lymphocytes % 9.2 L Monocytes % 13.1 H Eosinophils % 3.1 Basophils % 0.7 Nucleated Red Blood Cells % 0.0 Immature Granulocytes # 0.030 Neutrophils # 4.0 Lymphocytes # 0.5 L Monocytes # 0.7 Eosinophils # 0.2 Basophils # 0.0 Nucleated Red Blood Cells # 0.0 Amylase Level 400 #H Lipase 3161 H Medications Current Medications Acetaminophen (Tylenol Tab) 1,000 mg Q4 PRN PO MODERATE PAIN LEVEL 4-6 Last administered on 04/07/18at 12:14; Admin Dose 1,000 MG; Start 1/6/19 at 18:00 Acetaminophen (Tylenol Tab) 650 mg Q4 PRN GTB MILD PAIN LEVEL 1-3 Last administered on 04/15/18at 09:04; Admin Dose 650 MG; Start 03/31/18 at 18:00 Albuterol (Proventil 0.083% (Neb)) 2.5 mg Q3H PRN NEB WHEEZING AND SOB; Start 03/31/18 at 18:00 Albuterol (Proventil 0.083% (Neb)) 2.5 mg Q6 PRN NEB WHEEZING AND SOB; Start 03/31/18 at 18:00 Ascorbic Acid (Vitamin C) 500 mg DAILY GTB Last administered on 04/16/18at 09:11; Admin Dose 500 MG; Start 04/01/18 at 09:00 Bisacodyl (Dulcolax Supp) 10 mg DAILY PRN [place] CONSTIPATION; Start 03/31/18 at 18:00 Multivit/Ca Carb/ B Cmplx/FA/Prenat (Sofy-Sandoval) 1 tab DAILY GTB Last admi nistered on 04/16/18at 09:11; Admin Dose 1 TAB; Start 04/01/18 at 09:00 Zinc Sulfate (Zinc Sulfate) 220 mg DAILY GTB Last administered on 04/16/18at 09:11; Admin Dose 220 MG; Start 04/01/18 at 09:00 IV Flush (NS 3 ml) 3 ml PER PROTOCOL IV ; Start 03/31/18 at 18:30 Ondansetron HCl (Zofran Inj) 4 mg Q6H PRN IV NAUSEA AND/OR VOMITING; Start 03/31/18 at 18:30 Acetaminophen (Tylenol Tab) 650 mg Q6H PRN PO PAIN LEVEL 1-3 OR FEVER Last administered on 04/06/18at 03:55; Admin Dose 650 MG; Start 03/31/18 at 18:30 Acetaminophen (Tylenol Supp) 650 mg Q6H PRN [place] PAIN LEVEL 1-3 OR FEVER Last administered on 04/02/18at 20:38; Admin Dose 650 MG; Start 03/31/18 at 18:30 Docusate Sodium (Colace) 100 mg Q12H PRN PO CONSTIPATION; Start 03/31/18 at 18:30 Alteplase, Recombinant (Cathflo (Activase)) 2 mg MAY REPEAT X1 PRN CATHETER IF CATHETER REMAINS OCCULUDED Last administered on 04/03/18 04:24; Admin Dose 2 MG; Start 04/01/18 at 21:00 Collagenase (Santyl) 1 applic DAILY TOP Last administered on 04/16/18 09:11; Admin Dose 1 APPLIC; Start 04/03/18 at 12:00 Morphine Sulfate (morphine) 6 mg Q4H PRN GTB SEVERE PAIN LEVEL 6-10 Last administered on 04/12/18 21:10; Admin Dose 6 MG; Start 04/04/18 at 23:00 Lorazepam (Ativan) 2 mg Q4H PRN IV restless, agitation, anxiety Last administered on 04/15/18at 02:46; Admin Dose 2 MG; Start 04/05/18 at 10:00 Pantoprazole (Protonix Iv) 40 mg BID@06,18 IV Last administered on 04/16/18at 06:09; Admin Dose 40 MG; Start 04/08/18 at 18:00 Polyethylene Glycol (Miralax) 17 gm DAILY GTB Last administered on 04/16/18 09:11; Admin Dose 17 GM; Start 04/08/18 at 09:00 Carvedilol (Coreg) 50 mg BID GTB Last administered on 04/16/18 09:13; Admin Dose 50 MG; Start 04/08/18 at 21:00 Aspirin (Halfprin) 81 mg DAILY PO Last administered on 04/16/18 09:11; Admin Dose 81 MG; Start 04/15/18 at 12:30 Assessment/Plan Chief Complaint/Hosp Course Assessment 1. Vent dependent respiratory failure 2. Anemia from upper airway bleed 3. Chronic encephalopathy 4. Dysphagia with G-tube Plan 1. Monitor H&H 2. Continue mechanical ventilation 3. GI recs 4. DVT and GI prophylaxis dc planning ? [facility], [facility] Apr 16, 2018 11:33
--- NOTE | 2018-04-16 13:15 | PN ---
Date/Time of Note Date/Time of Note DATE: 04/16/18 TIME: 13:15 Assessment/Plan VTE Prophylaxis Risk score (from Ns)>0 risk: 5 SCD applied (from Ns): Yes Pharmacological prophylaxis: NA/contraindicated Pharm contraindication: low risk/ambulating Lines/Catheters IV Catheter Type (from [facility]): PICC Line Central line still needed: Yes Urinary Cath still in place: Yes Reason Cath still needed: urinary retention Assessment/Plan Hospital Course 62 y/o with # Oral gingival bleeding likely due to dentures, seen by ENT s/p endoscopy # Sepsis with Fevers with hx Pneumonia +UTI and ? Pancreatitis +multiple wounds, ucx+ lisa, wound cx+ MRSA/ pseudomonas, +resp culture +pseudomonas # Blood loss anemia due to oral gingival bleeding # VDRF # CKD with worsening renal failure>resolved # Metabolic acidosis #DILATED CARDIOMYOPATHY # HX ALCOHOL ABUSE # Multiple wounds > decub # Pancreatitis with elevated Lipase # Enterocoltiis on CT # AMS due to Metabolic encephalopathy with . Possible subacute infarct in the left cerebellar hemisphere and cerebellar peduncle> much improved Plan - feeding started - ? off tobramycin - mrcp pending> could not be done due to artifact issues -- dc fluids - cx neg so far - no blood thinners due to anemia - GI prophylaxsis - monitor oral bleeding - PT/OT/Speech DC planning spoke to does not wnat him to go back to [facility] due to wounds, will go tto different rehab> spoke to CM WORKING ON DC Result Diagram: 04/16/18 0622 04/15/18 0547 Results 24hrs Laboratory Tests Test 04/16/18 06:22 White Blood Count 5.4 Red Blood Count 3.15 L Hemoglobin 8.9 L Hematocrit 26.8 L Mean Corpuscular Volume 85.1 Mean Corpuscular Hemoglobin 28.3 L Mean Corpuscular Hemoglobin Concent 33.2 Red Cell Distribution Width 15.3 H Platelet Count 189 Mean Platelet Volume 10.6 H Immature Granulocytes % 0.600 H Neutrophils % 73.3 Lymphocytes % 9.2 L Monocytes % 13.1 H Eosinophils % 3.1 Basophils % 0.7 Nucleated Red Blood Cells % 0.0 Immature Granulocytes # 0.030 Neutrophils # 4.0 Lymphocytes # 0.5 L Monocytes # 0.7 Eosinophils # 0.2 Basophils # 0.0 Nucleated Red Blood Cells # 0.0 Amylase Level 400 #H Lipase 3161 H Subjective 24 Hr Interval Summary Free Text/Dictation no fevers dc restraints Exam/Review of Systems Vital Signs Vitals Vital Signs Date Temp Pulse Resp B/P (MAP) Pulse Ox O2 O2 Flow FiO2 Time Delivery Rate 04/16/18 91 12:45 04/16/18 98.0 18 142/99 99 12:42 (113) 04/16/18 30 12:12 04/16/18 Mechanical 10:00 Ventilator Intake and Output 04/15/18 04/15/18 04/16/18 1515:00 23:00 07:00 IntakeIntake Total 950 ml 520 ml OutputOutput Total 800 ml 600 ml BalanceBalance 150 ml -80 ml Exam ead: normocephalic Neck: supple, other (tracheostomy) Respiratory: diminished breath sounds Cardiovascular: regular rate and rhythm Gastrointestinal: soft, surgical scars, other (GT) Genitourinary - Male: other (mullins) Neurological: responds to questions Medications Medications Current Medications Acetaminophen (Tylenol Tab) 1,000 mg Q4 PRN PO MODERATE PAIN LEVEL 4-6 Last administered on 04/07/18at 12:14; Admin Dose 1,000 MG; Start 03/31/18 at 18:00 Acetaminophen (Tylenol Tab) 650 mg Q4 PRN GTB MILD PAIN LEVEL 1-3 Last administered on 04/15/18at 09:04; Admin Dose 650 MG; Start 03/31/18 at 18:00 Albuterol (Proventil 0.083% (Neb)) 2.5 mg Q3H PRN NEB WHEEZING AND SOB; Start 03/31/18 at 18:00 Albuterol (Proventil 0.083% (Neb)) 2.5 mg Q6 PRN NEB WHEEZING AND SOB; Start 03/31/18 at 18:00 Ascorbic Acid (Vitamin C) 500 mg DAILY GTB Last administered on 04/16/18at 09:11; Admin Dose 500 MG; Start 04/01/18 at 09:00 Bisacodyl (Dulcolax Supp) 10 mg DAILY PRN [place] CONSTIPATION; Start 03/31/18 at 18:00 Multivit/Ca Carb/ B Cmplx/FA/Prenat (Sofy-Sandoval) 1 tab DAILY GTB Last administered on 04/16/18at 09:11; Admin Dose 1 TAB; Start 04/01/18 at 09:00 Zinc Sulfate (Zinc Sulfate) 220 mg DAILY GTB Last administered on 04/16/18 09:11; Admin Dose 220 MG; Start 04/01/18 at 09:00 IV Flush (NS 3 ml) 3 ml PER PROTOCOL IV ; Start 03/31/18 at 18:30 Ondansetron HCl (Zofran Inj) 4 mg Q6H PRN IV NAUSEA AND/OR VOMITING; Start 03/31/18 at 18:30 Acetaminophen (Tylenol Tab) 650 mg Q6H PRN PO PAIN LEVEL 1-3 OR FEVER Last administered on 04/06/18 03:55; Admin Dose 650 MG; Start 03/31/18 at 18:30 Acetaminophen (Tylenol Supp) 650 mg Q6H PRN [place] PAIN LEVEL 1-3 OR FEVER Last administered on 04/02/18at 20:38; Admin Dose 650 MG; Start 03/31/18 at 18:30 Docusate Sodium (Colace) 100 mg Q12H PRN PO CONSTIPATION; Start 03/31/18 at 18:30 Alteplase, Recombinant (Cathflo (Activase)) 2 mg MAY REPEAT X1 PRN CATHETER IF CATHETER REMAINS OCCULUDED Last administered on 04/03/18 04:24; Admin Dose 2 MG; Start 04/01/18 at 21:00 Collagenase (Santyl) 1 applic DAILY TOP Last administered on 04/16/18 09:11; Admin Dose 1 APPLIC; Start 04/03/18 at 12:00 Morphine Sulfate (morphine) 6 mg Q4H PRN GTB SEVERE PAIN LEVEL 6-10 Last administered on 04/12/18 21:10; Admin Dose 6 MG; Start 04/04/18 at 23:00 Lorazepam (Ativan) 2 mg Q4H PRN IV restless, agitation, anxiety Last ad ministered on 04/15/18 02:46; Admin Dose 2 MG; Start 04/05/18 at 10:00 Pantoprazole (Protonix Iv) 40 mg BID@06,18 IV Last administered on 04/16/18 06:09; Admin Dose 40 MG; Start 04/08/18 at 18:00 Polyethylene Glycol (Miralax) 17 gm DAILY GTB Last administered on 04/16/18 09:11; Admin Dose 17 GM; Start 04/08/18 at 09:00 Carvedilol (Coreg) 50 mg BID GTB Last administered on 04/16/18at 09:13; Admin Dose 50 MG; Start 04/08/18 at 21:00 Aspirin (Halfprin) 81 mg DAILY PO Last administered on 04/16/18at 09:11; Admin Dose 81 MG; Start 04/15/18 at 12:30 TAMARA GRAJEDA MD Apr 16, 2018 13:15
--- NOTE | 2018-04-16 13:54 | CONS ---
Assessment/Plan Assessment/Plan Hospital Course No changes, remains afebrile, noncommunicative, in no distress Microbiology: Blood cultures remain negative. Urine culture grew Breanne albicans. Sacral wound culture grew MRSA, Breanne albicans, enterococcus, gram- negative rods. Nares swab positive for MRSA CT of the abdomen and pelvis revealed questionable enterocolitis. Cholelithiasis. Tiny bilateral pleural effusions with bibasilar airspace dise ase. Indwelling: Peg, Schwartz, right upper extremity PICC line, tracheostomy Antimicrobials: Tobramycin inhalation Physical examination: Chronically ill-appearing elderly man who is noncommunicative in no distress. Head atraumatic normocephalic sclera nonicteric neck is supple tracheostomy present chest rise symmetrical breath sounds diminished bases heart: S1-S2. Abdomen soft bowel sounds present. Extremities without cyanosis. Skin: Patient has multiple pressure sores he has a dry blood on the right lower lip Assessment: 1. S/p sepsis with ongoing fevers 2. Acute pancreatitis, CT of the abdomen revealed no abscess, no pseudocyst 3. S/p Breanne albicans UTI 4. History of cardiomyopathy 5. Chronic respiratory failure 6. S/p gingival bleeding 7. Sacral decub 8. MRSA nares colonization 9. Possible enterocolitis and sinusitis Plan: Clinically unchanged, stable, dc Tobra INH Result Diagram: 04/16/18 0622 04/15/18 0547 Results 24hrs Laboratory Tests Test 04/16/18 06:22 White Blood Count 5.4 Red Blood Count 3.15 L Hemoglobin 8.9 L Hematocrit 26.8 L Mean Corpuscular Volume 85.1 Mean Corpuscular Hemoglobin 28.3 L Mean Corpuscular Hemoglobin Concent 33.2 Red Cell Distribution Width 15.3 H Platelet Count 189 Mean Platelet Volume 10.6 H Immature Granulocytes % 0.600 H Neutrophils % 73.3 Lymphocytes % 9.2 L Monocytes % 13.1 H Eosinophils % 3.1 Basophils % 0.7 Nucleated Red Blood Cells % 0.0 Immature Granulocytes # 0.030 Neutrophils # 4.0 Lymphocytes # 0.5 L Monocytes # 0.7 Eosinophils # 0.2 Basophils # 0.0 Nucleated Red Blood Cells # 0.0 Amylase Level 400 #H Lipase 3161 H Consultation Date/Type/Reason Admit Date/Time Mar 31, 2018 at 17:58 Initial Consult Date 04/02/18 Type of Consult id Requesting Provider: TAMARA GRAJEDA MD Exam/Review of Systems Vital Signs Vitals Vital Signs Date Temp Pulse Resp B/P (MAP) Pulse Ox O2 O2 Flow FiO2 Time Delivery Rate 04/16/18 92 19 100 30 13:00 04/16/18 98.0 142/99 12:42 (113) 04/16/18 Mechanical 10:00 Ventilator Intake and Output 04/15/18 04/15/18 04/16/18 1515:00 23:00 07:00 IntakeIntake Total 950 ml 520 ml OutputOutput Total 800 ml 600 ml BalanceBalance 150 ml -80 ml Medications Medications Current Medications Acetaminophen (Tylenol Tab) 1,000 mg Q4 PRN PO MODERATE PAIN LEVEL 4-6 Last administered on 04/07/18at 12:14; Admin Dose 1,000 MG; Start 03/31/18 at 18:00 Acetaminophen (Tylenol Tab) 650 mg Q4 PRN GTB MILD PAIN LEVEL 1-3 Last administered on 04/15/18at 09:04; Admin Dose 650 MG; Start 03/31/18 at 18:00 Albuterol (Proventil 0.083% (Neb)) 2.5 mg Q3H PRN NEB WHEEZING AND SOB; Start 03/31/18 at 18:00 Albuterol (Proventil 0.083% (Neb)) 2.5 mg Q6 PRN NEB WHEEZING AND SOB; Start 03/31/18 at 18:00 Ascorbic Acid (Vitamin C) 500 mg DAILY GTB Last administered on 04/16/18at 09:11; Admin Dose 500 MG; Start 04/01/18 at 09:00 Bisacodyl (Dulcolax Supp) 10 mg DAILY PRN [place] CONSTIPATION; Start 03/31/18 at 18:00 Multivit/Ca Carb/ B Cmplx/FA/Prenat (Sofy-Sandoval) 1 tab DAILY GTB Last administered on 04/16/18at 09:11; Admin Dose 1 TAB; Start 04/01/18 at 09:00 Zinc Sulfate (Zinc Sulfate) 220 mg DAILY GTB Last administered on 04/16/18at 09:11; Admin Dose 220 MG; Start 04/01/18 at 09:00 IV Flush (NS 3 ml) 3 ml PER PROTOCOL IV ; Start 03/31/18 at 18:30 Ondansetron HCl (Zofran Inj) 4 mg Q6H PRN IV NAUSEA AND/OR VOMITING; Start 03/31/18 at 18:30 Acetaminophen (Tylenol Tab) 650 mg Q6H PRN PO PAIN LEVEL 1-3 OR FEVER Last administered on 04/06/18 03:55; Admin Dose 650 MG; Start 03/31/18 at 18:30 Acetaminophen (Tylenol Supp) 650 mg Q6H PRN DE PAIN LEVEL 1-3 OR FEVER Last administered on 04/02/18 20:38; Admin Dose 650 MG; Start 03/31/18 at 18:30 Docusate Sodium (Colace) 100 mg Q12H PRN PO CONSTIPATION; Start 03/31/18 at 18:30 Alteplase, Recombinant (Cathflo (Activase)) 2 mg MAY REPEAT X1 PRN CATHETER IF CATHETER REMAINS OCCULUDED Last administered on 04/03/18 04:24; Admin Dose 2 MG; Start 04/01/18 at 21:00 Collagenase (Santyl) 1 applic DAILY TOP Last administered on 04/16/18 09:11; Admin Dose 1 APPLIC; Start 04/03/18 at 12:00 Morphine Sulfate (morphine) 6 mg Q4H PRN GTB SEVERE PAIN LEVEL 6-10 Last administered on 04/12/18 21:10; Admin Dose 6 MG; Start 04/04/18 at 23:00 Lorazepam (Ativan) 2 mg Q4H PRN IV restless, agitation, anxiety Last administered on 04/15/18 02:46; Admin Dose 2 MG; Start 04/05/18 at 10:00 Pantoprazole (Protonix Iv) 40 mg BID@06,18 IV Last administered on 04/16/18 06:09; Admin Dose 40 MG; Start 04/08/18 at 18:00 Polyethylene Glycol (Miralax) 17 gm DAILY GTB Last administered on 04/16/18 09:11; Admin Dose 17 GM; Start 04/08/18 at 09:00 Carvedilol (Coreg) 50 mg BID GTB Last administered on 04/16/18 09:13; Admin Dose 50 MG; Start 04/08/18 at 21:00 Aspirin (Halfprin) 81 mg DAILY PO Last administered on 04/16/18 09:11; Admin Dose 81 MG; Start 04/15/18 at 12:30 Date/Time of Note Date/Time of Note DATE: 04/16/18 TIME: 13:53 RENÉ GARCIA NP Apr 16, 2018 13:54
--- NOTE | 2018-04-16 16:08 | CONS ---
Assessment/Plan Assessment/Plan Hospital Course 62 M c/ Hx of methamphetamine/ETOH abuse c/b cirrhosis and dilated cardiomyopathy... and other comorbidities, admitted for evaluation of gingival bleeding..and fevers.... Neurology is consulted to evaluate encephalopathy and assess prognosis for meaningful neurologic recovery.. Of note, review of OSH records is notable for the absence of prior cardiac arrest... The clinical picture suggests an acute toxic-metabolic (?on chronic) encephalopathy...which has shown significant improvement.. MRI brain is concerning for a subacute cerebellar infarction, though it is limited by motion.. EEG is without epileptiform activity. His prognosis for meaningful neurologic recovery is guarded (ie wholly dependent on medical improvement)... P: asa for secondary stroke prevention when medically able (ie severe anemia and gingival hemorrhage are solved..); LDL is at goal... Limit sedating medications where possible PT/OT/ST as able Continued medical management and supportive care per primary Will sign off. Please call with Qs Result Diagram: 04/16/18 0622 04/15/18 0547 Results 24hrs Laboratory Tests Test 04/16/18 06:22 White Blood Count 5.4 Red Blood Count 3.15 L Hemoglobin 8.9 L Hematocrit 26.8 L Mean Corpuscular Volume 85.1 Mean Corpuscular Hemoglobin 28.3 L Mean Corpuscular Hemoglobin Concent 33.2 Red Cell Distribution Width 15.3 H Platelet Count 189 Mean Platelet Volume 10.6 H Immature Granulocytes % 0.600 H Neutrophils % 73.3 Lymphocytes % 9.2 L Monocytes % 13.1 H Eosinophils % 3.1 Basophils % 0.7 Nucleated Red Blood Cells % 0.0 Immature Granulocytes # 0.030 Neutrophils # 4.0 Lymphocytes # 0.5 L Monocytes # 0.7 Eosinophils # 0.2 Basophils # 0.0 Nucleated Red Blood Cells # 0.0 Amylase Level 400 #H Lipase 3161 H Consultation Date/Type/Reason Admit Date/Time Mar 31, 2018 at 17:58 Type of Consult Neurology Requesting Provider: TAMARA GRAJEDA MD Date/Time of Note DATE: 04/16/18 TIME: 16:08 24 HR Interval Summary Free Text/Dictation Continues telemetry monitoring. Pt has c/o abdominal pain today Exam Vital Signs Vitals Vital Signs Date Temp Pulse Resp B/P (MAP) Pulse Ox O2 O2 Flow FiO2 Time Delivery Rate 04/16/18 30 16:02 04/16/18 93 28 100 15:10 04/16/18 98.0 142/99 12:42 (113) 04/16/18 Mechanical 10:00 Ventilator Intake and Output 04/15/18 04/15/18 04/16/18 1515:00 23:00 07:00 IntakeIntake Total 950 ml 520 ml OutputOutput Total 800 ml 600 ml BalanceBalance 150 ml -80 ml Exam PE: Gen Appearance: No Apparent Distress HEENT: Trach Cardiovascular: Regular rate Abdomen: Soft Extremities: Dry NE: The patient was alert, increasingly verbal despite trach...able to follow simple commands.. Cranial nerve examination was limited by mental status. Pupils were equal and reactive to light. There was no afferent pupillary defect. Funduscopic examination was limited. Face was grossly symmetric, w/ present corneal and cough reflexes. Tone was normal. Muscle bulk was normal. I did not see fasciculations. The patient moved his limbs grossly symmetrically. Coordination and gait testing was limited by mental status. Arm and leg reflexes were within normal limits and symmetric. Maguire's sign was absent. Plantar responses were flexor. ANURAG PRESSLEY NP Apr 16, 2018 16:08
[2018-04-16] MEDS: morphine LIQ (10 MG/5 ML) CUP GTB PRN (16:23)
[2018-04-17] VITALS (23 sets, daily range): BP systolic 127–160; BP diastolic 85–98; PULSE 74–92; RESP 17–31
[2018-04-17] MEDS: PANTOPRAZOLE 40 MG INJ IV SCH ×2 (06:04→17:20)
--- NOTE | 2018-04-17 08:18 | CONS ---
Assessment/Plan Assessment/Plan Hospital Course hx encephalopathy hx substance abuse anemia probably from bleeding gums, stable pancreatitis lft's nl, lipase trending down unable to MRCP CT: no evidence of biliary obstruction, no pancreatic mass. CA 19-9 elevated( not very sensitive or specific unless very high which it is not stool no melenic per RN PE: abd soft NT will check IgG4 Result Diagram: 04/17/18 0545 04/17/18 0545 Results 24hrs Laboratory Tests Test 04/16/18 16:55 04/17/18 05:45 CA 19-9 Antigen 47.5 H White Blood Count 5.9 Red Blood Count 2.96 L Hemoglobin 8.4 L Hematocrit 25.6 L Mean Corpuscular Volume 86.5 Mean Corpuscular Hemoglobin 28.4 L Mean Corpuscular Hemoglobin Concent 32.8 Red Cell Distribution Width 15.4 H Platelet Count 176 Mean Platelet Volume 10.3 Immature Granulocytes % 0.300 Neutrophils % 74.7 Lymphocytes % 9.0 L Monocytes % 12.1 H Eosinophils % 3.2 Basophils % 0.7 Nucleated Red Blood Cells % 0.0 Immature Granulocytes # 0.020 Neutrophils # 4.4 Lymphocytes # 0.5 L Monocytes # 0.7 Eosinophils # 0.2 Basophils # 0.0 Nucleated Red Blood Cells # 0.0 Sodium Level 141 Potassium Level 3.7 Chloride Level 111 H Carbon Dioxide Level 22 Anion Gap 8 Blood Urea Nitrogen 18 Creatinine 0.78 Est Glomerular Filtrat Rate mL/min > 60 Glucose Level 102 Calcium Level 8.3 L Phosphorus Level 2.5 Magnesium Level 1.8 Lipase 1751 H Consultation Date/Type/Reason Admit Date/Time Mar 31, 2018 at 17:58 Initial Consult Date 04/02/18 Type of Consult consult follow up Requesting Provider: TAMARA GRAJEDA MD Exam/Review of Systems Vital Signs Vitals Vital Signs Date Temp Pulse Resp B/P (MAP) Pulse Ox O2 O2 Flow FiO2 Time Delivery Rate 04/17/18 99.3 19 144/96 100 08:01 (112) 04/17/18 82 30 07:30 04/16/18 Mechanical 10:00 Ventilator Intake and Output 04/16/18 04/16/18 04/17/18 1414:59 22:59 06:59 IntakeIntake Total 520 ml 520 ml OutputOutput Total 900 ml 700 ml BalanceBalance -380 ml -180 ml Medications Medications Current Medications Acetaminophen (Tylenol Tab) 1,000 mg Q4 PRN PO MODERATE PAIN LEVEL 4-6 Last administered on 04/07/18 12:14; Admin Dose 1,000 MG; Start 03/31/18 at 18:00 Acetaminophen (Tylenol Tab) 650 mg Q4 PRN GTB MILD PAIN LEVEL 1-3 Last administered on 04/15/18 09:04; Admin Dose 650 MG; Start 03/31/18 at 18:00 Albuterol (Proventil 0.083% (Neb)) 2.5 mg Q3H PRN NEB WHEEZING AND SOB; Start 03/31/18 at 18:00 Albuterol (Proventil 0.083% (Neb)) 2.5 mg Q6 PRN NEB WHEEZING AND SOB; Start 03/31/18 at 18:00 Ascorbic Acid (Vitamin C) 500 mg DAILY GTB Last administered on 04/16/18at 09:11; Admin Dose 500 MG; Start 04/01/18 at 09:00 Bisacodyl (Dulcolax Supp) 10 mg DAILY PRN [place] CONSTIPATION; Start 03/31/18 at 18: 00 Multivit/Ca Carb/ B Cmplx/FA/Prenat (Sofy-Sandoval) 1 tab DAILY GTB Last administered on 04/16/18at 09:11; Admin Dose 1 TAB; Start 04/01/18 at 09:00 Zinc Sulfate (Zinc Sulfate) 220 mg DAILY GTB Last administered on 04/16/18at 09:11; Admin Dose 220 MG; Start 04/01/18 at 09:00 IV Flush (NS 3 ml) 3 ml PER PROTOCOL IV ; Start 03/31/18 at 18:30 Ondansetron HCl (Zofran Inj) 4 mg Q6H PRN IV NAUSEA AND/OR VOMITING; Start 03/31/18 at 18:30 Acetaminophen (Tylenol Tab) 650 mg Q6H PRN PO PAIN LEVEL 1-3 OR FEVER Last administered on 04/06/18at 03:55; Admin Dose 650 MG; Start 03/31/18 at 18:30 Acetaminophen (Tylenol Supp) 650 mg Q6H PRN [place] PAIN LEVEL 1-3 OR FEVER Last administered on 04/02/18at 20:38; Admin Dose 650 MG; Start 03/31/18 at 18:30 Docusate Sodium (Colace) 100 mg Q12H PRN PO CONSTIPATION; Start 03/31/18 at 18:30 Alteplase, Recombinant (Cathflo (Activase)) 2 mg MAY REPEAT X1 PRN CATHETER IF CATHETER REMAINS OCCULUDED Last administered on 04/03/18 04:24; Admin Dose 2 MG; Start 04/01/18 at 21:00 Collagenase (Santyl) 1 applic DAILY TOP Last administered on 04/16/18 09:11; Admin Dose 1 APPLIC; Start 04/03/18 at 12:00 Morphine Sulfate (morphine) 6 mg Q4H PRN GTB SEVERE PAIN LEVEL 6-10 Last admin istered on 04/16/18 16:23; Admin Dose 6 MG; Start 04/04/18 at 23:00 Lorazepam (Ativan) 2 mg Q4H PRN IV restless, agitation, anxiety Last administered on 04/15/18at 02:46; Admin Dose 2 MG; Start 04/05/18 at 10:00 Pantoprazole (Protonix Iv) 40 mg BID@06,18 IV Last administered on 04/17/18 06:04; Admin Dose 40 MG; Start 04/08/18 at 18:00 Polyethylene Glycol (Miralax) 17 gm DAILY GTB Last administered on 04/16/18 09:11; Admin Dose 17 GM; Start 04/08/18 at 09:00 Carvedilol (Coreg) 50 mg BID GTB Last administered on 04/16/18at 21:48; Admin Dose 50 MG; Start 04/08/18 at 21:00 Aspirin (Halfprin) 81 mg DAILY PO Last administered on 04/16/18 09:11; Admin Dose 81 MG; Start 04/15/18 at 12:30 Date/Time of Note Date/Time of Note DATE: 04/17/18 TIME: 08:13 KASSANDRA OROZCO MD Apr 17, 2018 08:18
[2018-04-17] MEDS: BALSAM PERU/CASTOR OIL 60 GM TUBE TOP SCH ×2 (08:54→21:15)
[2018-04-17] MEDS: ZINC SULFATE 220 MG CAP GTB SCH (08:55)
[2018-04-17] MEDS: COLLAGENASE 5 GM (UD JAR) TOP SCH (08:55)
[2018-04-17] MEDS: MULTIVIT/CA CARB/B CMPLX/FA TAB GTB SCH (08:55)
[2018-04-17] MEDS: POLYETHYLENE GLYCOL 17 GM PACKET GTB SCH (08:55)
[2018-04-17] MEDS: ASCORBIC ACID 500 MG TAB GTB SCH (08:56)
[2018-04-17] MEDS: ASPIRIN (EC) 81 MG TAB PO SCH (08:56)
[2018-04-17] MEDS: ACETAMINOPHEN 325 MG TAB GTB PRN (12:47)
--- NOTE | 2018-04-17 12:58 | PN ---
Date/Time of Note Date/Time of Note DATE: 04/17/18 TIME: 12:55 Assessment/Plan VTE Prophylaxis Risk score (from Ns)>0 risk: 8 SCD applied (from [facility]): Yes Pharmacological prophylaxis: NA/contraindicated Pharm contraindication: bleeding Lines/Catheters IV Catheter Type (from Nrs): PICC Line Central line still needed: Yes Urinary Cath still in place: Yes Reason Cath still needed: urinary retention Assessment/Plan Hospital Course # Oral gingival bleeding likely due to dentures, seen by ENT s/p endoscopy # Sepsis with Fevers with hx Pneumonia +UTI and ? Pancreatitis +multiple wounds, ucx+ lisa # Blood loss anemia due to #1 # VDRF # CKD with worseing renal failure # Metabolic acidosis # DILATED CARDIOMYOPATHY # HX ALCOHOL ABUSE # Multiple wounds > decub # hypomagnesemia Assessment/Plan -temp trending up -panculture - c/w feeding - ? off tobramycin - mrcp could not be done due to artifact issues -- off restraints, pt can be dc back to SNF is less than 24 h of restraints - cx neg so far - no blood thinners due to anemia - GI prophylaxis - monitor oral bleeding - PT/OT/Speech Result Diagram: 04/17/18 0545 04/17/18 0545 Results 24hrs Laboratory Tests Test 04/16/18 16:55 04/17/18 05:45 CA 19-9 Antigen 47.5 H White Blood Count 5.9 Red Blood Count 2.96 L Hemoglobin 8.4 L Hematocrit 25.6 L Mean Corpuscular Volume 86.5 Mean Corpuscular Hemoglobin 28.4 L Mean Corpuscular Hemoglobin Concent 32.8 Red Cell Distribution Width 15.4 H Platelet Count 176 Mean Platelet Volume 10.3 Immature Granulocytes % 0.300 Neutrophils % 74.7 Lymphocytes % 9.0 L Monocytes % 12.1 H Eosinophils % 3.2 Basophils % 0.7 Nucleated Red Blood Cells % 0.0 Immature Granulocytes # 0.020 Neutrophils # 4.4 Lymphocytes # 0.5 L Monocytes # 0.7 Eosinophils # 0.2 Basophils # 0.0 Nucleated Red Blood Cells # 0.0 Sodium Level 141 Potassium Level 3.7 Chloride Level 111 H Carbon Dioxide Level 22 Anion Gap 8 Blood Urea Nitrogen 18 Creatinine 0.78 Est Glomerular Filtrat Rate mL/min > 60 Glucose Level 102 Calcium Level 8.3 L Phosphorus Level 2.5 Magnesium Level 1.8 Lipase 1751 H Subjective 24 Hr Interval Summary Subjective hx not possible: pt non-verbal Exam/Review of Systems Vital Signs Vitals Vital Signs Date Temp Pulse Resp B/P (MAP) Pulse Ox O2 O2 Flow FiO2 Time Delivery Rate 04/17/18 100.5 12:47 04/17/18 90 12:33 04/17/18 21 100 30 12:18 04/17/18 152/97 Room Air 11:47 (115) Intake and Output 04/16/18 04/16/18 04/17/18 1414:59 22:59 06:59 IntakeIntake Total 520 ml 520 ml OutputOutput Total 900 ml 700 ml BalanceBalance -380 ml -180 ml Exam Eyes: nl conjunctiva ENMT: nl external ears & nose Neck: supple, other (tracheostomy) Respiratory: crackles/rales, diminished breath sounds Cardiovascular: regular rate and rhythm Gastrointestinal: soft, other (GT) Neurological: confused Medications Medications Current Medications Acetaminophen (Tylenol Tab) 1,000 mg Q4 PRN PO MODERATE PAIN LEVEL 4-6 Last administered on 04/07/18at 12:14; Admin Dose 1,000 MG; Start 03/31/18 at 18:00 Acetaminophen (Tylenol Tab) 650 mg Q4 PRN GTB MILD PAIN LEVEL 1-3 Last administered on 04/17/18at 12:47; Admin Dose 650 MG; Start 03/31/18 at 18:00 Albuterol (Proventil 0.083% (Neb)) 2.5 mg Q3H PRN NEB WHEEZING AND SOB; Start 03/31/18 at 18:00 Albuterol (Proventil 0.083% (Neb)) 2.5 mg Q6 PRN NEB WHEEZING AND SOB; Start 03/31/18 at 18:00 Ascorbic Acid (Vitamin C) 500 mg DAILY GTB Last administered on 04/17/18at 08:56; Admin Dose 500 MG; Start 04/01/18 at 09:00 Bisacodyl (Dulcolax Supp) 10 mg DAILY PRN [place] CONSTIPATION; Start 03/31/18 at 18:00 Multivit/Ca Carb/ B Cmplx/FA/Prenat (Sofy-Sandoval) 1 tab DAILY GTB Last administered on 04/17/18at 08:55; Admin Dose 1 TAB; Start 04/01/18 at 09:00 Zinc Sulfate (Zinc Sulfate) 220 mg DAILY GTB Last administered on 04/17/18 08:55; Admin Dose 220 MG; Start 04/01/18 at 09:00 IV Flush (NS 3 ml) 3 ml PER PROTOCOL IV ; Start 03/31/18 at 18:30 Ondansetron HCl (Zofran Inj) 4 mg Q6H PRN IV NAUSEA AND/OR VOMITING; Start 03/31/18 at 18:30 Acetaminophen (Tylenol Tab) 650 mg Q6H PRN PO PAIN LEVEL 1-3 OR FEVER Last administered on 04/06/18 03:55; Admin Dose 650 MG; Start 03/31/18 at 18:30 Acetaminophen (Tylenol Supp) 650 mg Q6H PRN [place] PAIN LEVEL 1-3 OR FEVER Last adm inistered on 04/02/18 20:38; Admin Dose 650 MG; Start 03/31/18 at 18:30 Docusate Sodium (Colace) 100 mg Q12H PRN [place] CONSTIPATION; Start 03/31/18 at 18:30 Alteplase, Recombinant (Cathflo (Activase)) 2 mg MAY REPEAT X1 PRN CATHETER IF CATHETER REMAINS OCCULUDED Last administered on 04/03/18 04:24; Admin Dose 2 MG; Start 04/01/18 at 21:00 Collagenase (Santyl) 1 applic DAILY TOP Last administered on 04/17/18 08:55; Admin Dose 1 APPLIC; Start 04/03/18 at 12:00 Morphine Sulfate (morphine) 6 mg Q4H PRN GTB SEVERE PAIN LEVEL 6-10 Last administered on 04/16/18 16:23; Admin Dose 6 MG; Start 04/04/18 at 23:00 Lorazepam (Ativan) 2 mg Q4H PRN IV restless, agitation, anxiety Last administered on 04/15/18 02:46; Admin Dose 2 MG; Start 04/05/18 at 10:00 Pantoprazole (Protonix Iv) 40 mg BID@06,18 IV Last administered on 04/17/18 06:04; Admin Dose 40 MG; Start 04/08/18 at 18:00 Polyethylene Glycol (Miralax) 17 gm DAILY GTB Last administered on 04/17/18 08:55; Admin Dose 17 GM; Start 04/08/18 at 09:00 Carvedilol (Coreg) 50 mg BID GTB Last administered on 04/17/18at 08:56; Admin Dose 50 MG; Start 04/08/18 at 21:00 Aspirin (Halfprin) 81 mg DAILY PO Last administered on 04/17/18at 08:56; Admin Dose 81 MG; Start 04/15/18 at 12:30 LETITIA BLAKELY Apr 17, 2018 12:58
--- NOTE | 2018-04-17 14:27 | CONS ---
Assessment/Plan Assessment/Plan Hospital Course No changes, looks comfortable Microbiology: Blood cultures remain negative. Urine culture grew Breanne alb icans. Sacral wound culture grew MRSA, Breanne albicans, enterococcus, gram- negative rods. Nares swab positive for MRSA CT of the abdomen and pelvis revealed questionable enterocolitis. Cholelithia sis. Tiny bilateral pleural effusions with bibasilar airspace disease. Indwelling: Peg, Schwartz, right upper extremity PICC line, tracheostomy Antimicrobials: none Physical examination: Chronically ill-appearing elderly man who is noncommunicative in no distress. Head atraumatic normocephalic sclera nonicteric neck is supple tracheostomy present chest rise symmetrical breath sounds diminished bases heart: S1-S2. Abdomen soft bowel sounds present. Extremities without cyanosis. Skin: Patient has multiple pressure sores he has a dry blood on the right lower lip Assessment: 1. S/p sepsis with ongoing fevers 2. Acute pancreatitis, CT of the abdomen revealed no abscess, no pseudocyst 3. S/p Breanne albicans UTI 4. History of cardiomyopathy 5. Chronic respiratory failure 6. S/p gingival bleeding 7. Sacral decub 8. MRSA nares colonization 9. Possible enterocolitis and sinusitis Plan: Clinically unchanged, stable off abx, will reculture prn T 101 Result Diagram: 04/17/18 0545 04/17/18 0545 Results 24hrs Laboratory Tests Test 04/16/18 16:55 04/17/18 05:45 CA 19-9 Antigen 47.5 H White Blood Count 5.9 Red Blood Count 2.96 L Hemoglobin 8.4 L Hematocrit 25.6 L Mean Corpuscular Volume 86.5 Mean Corpuscular Hemoglobin 28.4 L Mean Corpuscular Hemoglobin Concent 32.8 Red Cell Distribution Width 15.4 H Platelet Count 176 Mean Platelet Volume 10.3 Immature Granulocytes % 0.300 Neutrophils % 74.7 Lymphocytes % 9.0 L Monocytes % 12.1 H Eosinophils % 3.2 Basophils % 0.7 Nucleated Red Blood Cells % 0.0 Immature Granulocytes # 0.020 Neutrophils # 4.4 Lymphocytes # 0.5 L Monocytes # 0.7 Eosinophils # 0.2 Basophils # 0.0 Nucleated Red Blood Cells # 0.0 Sodium Level 141 Potassium Level 3.7 Chloride Level 111 H Carbon Dioxide Level 22 Anion Gap 8 Blood Urea Nitrogen 18 Creatinine 0.78 Est Glomerular Filtrat Rate mL/min > 60 Glucose Level 102 Calcium Level 8.3 L Phosphorus Level 2.5 Magnesium Level 1.8 Lipase 1751 H Consultation Date/Type/Reason Admit Date/Time Mar 31, 2018 at 17:58 Initial Consult Date 04/02/18 Type of Consult id Requesting Provider: TAMARA GRAJEDA MD Exam/Review of Systems Vital Signs Vitals Vital Signs Date Temp Pulse Resp B/P (MAP) Pulse Ox O2 O2 Flow FiO2 Time Delivery Rate 04/17/18 99.2 13:33 04/17/18 90 12:33 04/17/18 21 100 30 12:18 04/17/18 152/97 Room Air 11:47 (115) Intake and Output 04/16/18 04/16/18 04/17/18 1515:00 23:00 07:00 IntakeIntake Total 520 ml 520 ml OutputOutput Total 900 ml 700 ml BalanceBalance -380 ml -180 ml Medications Medications Current Medications Acetaminophen (Tylenol Tab) 1,000 mg Q4 PRN PO MODERATE PAIN LEVEL 4-6 Last administered on 04/07/18at 12:14; Admin Dose 1,000 MG; Start 03/31/18 at 18:00 Acetaminophen (Tylenol Tab) 650 mg Q4 PRN GTB MILD PAIN LEVEL 1-3 Last administered on 04/17/18at 12:47; Admin Dose 650 MG; Start 03/31/18 at 18:00 Albuterol (Proventil 0.083% (Neb)) 2.5 mg Q3H PRN NEB WHEEZING AND SOB; Start 03/31/18 at 18:00 Albuterol (Proventil 0.083% (Neb)) 2.5 mg Q6 PRN NEB WHEEZING AND SOB; Start 03/31/18 at 18:00 Ascorbic Acid (Vitamin C) 500 mg DAILY GTB Last administered on 04/17/18at 08:56; Admin Dose 500 MG; Start 04/01/18 at 09:00 Bisacodyl (Dulcolax Supp) 10 mg DAILY PRN [place] CONSTIPATION; Start 03/31/18 at 18:00 Multivit/Ca Carb/ B Cmplx/FA/Prenat (Sofy-Sandoval) 1 tab DAILY GTB Last administered on 04/17/18at 08:55; Admin Dose 1 TAB; Start 04/01/18 at 09:00 Zinc Sulfate (Zinc Sulfate) 220 mg DAILY GTB Last administered on 04/17/18 08:55; Admin Dose 220 MG; Start 04/01/18 at 09:00 IV Flush (NS 3 ml) 3 ml PER PROTOCOL IV ; Start 03/31/18 at 18:30 Ondansetron HCl (Zofran Inj) 4 mg Q6H PRN IV NAUSEA AND/OR VOMITING; Start 03/31/18 at 18:30 Acetaminophen (Tylenol Tab) 650 mg Q6H PRN PO PAIN LEVEL 1-3 OR FEVER Last administered on 04/06/18 03:55; Admin Dose 650 MG; Start 03/31/18 at 18:30 Acetaminophen (Tylenol Supp) 650 mg Q6H PRN [place] PAIN LEVEL 1-3 OR FEVER Last administered on 04/02/18at 20:38; Admin Dose 650 MG; Start 03/31/18 at 18:30 Docusate Sodium (Colace) 100 mg Q12H PRN [place] CONSTIPATION; Start 03/31/18 at 18:30 Alteplase, Recombinant (Cathflo (Activase)) 2 mg MAY REPEAT X1 PRN CATHETER IF CATHETER REMAINS OCCULUDED Last administered on 04/03/18 04:24; Admin Dose 2 MG; Start 04/01/18 at 21:00 Collagenase (Santyl) 1 applic DAILY TOP Last administered on 04/17/18 08:55; Admin Dose 1 APPLIC; Start 04/03/18 at 12:00 Morphine Sulfate (morphine) 6 mg Q4H PRN GTB SEVERE PAIN LEVEL 6-10 Last administered on 04/16/18 16:23; Admin Dose 6 MG; Start 04/04/18 at 23:00 Lorazepam (Ativan) 2 mg Q4H PRN IV restless, agitation, anxiety Last administered on 04/15/18 02:46; Admin Dose 2 MG; Start 04/05/18 at 10:00 Pantoprazole (Protonix Iv) 40 mg BID@06,18 IV Last administered on 04/17/18 06:04; Admin Dose 40 MG; Start 04/08/18 at 18:00 Polyethylene Glycol (Miralax) 17 gm DAILY GTB Last administered on 04/17/18 08:55; Admin Dose 17 GM; Start 04/08/18 at 09:00 Carvedilol (Coreg) 50 mg BID GTB Last administered on 04/17/18at 08:56; Admin Dose 50 MG; Start 04/08/18 at 21:00 Aspirin (Halfprin) 81 mg DAILY PO Last administered on 04/17/18at 08:56; Admin Dose 81 MG; Start 04/15/18 at 12:30 Date/Time of Note Date/Time of Note DATE: 04/17/18 TIME: 14:26 RENÉ GARCIA NP Apr 17, 2018 14:27
--- NOTE | 2018-04-17 15:01 | CONS ---
Date/Time of Note Date/Time of Note DATE: 04/17/18 TIME: 15:00 Consult Date/Type/Reason Admit Date/Time Mar 31, 2018 at 17:58 Initial Consult Date 04/02/18 Type of Consultation: Pulmonary Requesting Provider: TAMARA GRAJEDA MD Subjective Remains febrile. Objective Vital Signs Date Temp Pulse Resp B/P (MAP) Pulse Ox O2 O2 Flow FiO2 Time Delivery Rate 04/17/18 69 17 100 30 14:53 04/17/18 99.2 13:33 04/17/18 152/97 Room Air 11:47 (115) Intake and Output 04/16/18 04/16/18 04/17/18 1515:00 23:00 07:00 IntakeIntake Total 520 ml 520 ml OutputOutput Total 900 ml 700 ml BalanceBalance -380 ml -180 ml Exam GENERAL: Chronically ill-appearing gentleman on mechanical ventilation VITAL SIGNS: per chart NECK: Supple. No JVD or lymphadenopathy. Trach site clean CARDIAC EXAM: S1, S2. No added sounds or murmurs. CHEST: clear bilaterally, No added sounds, rales or wheezes ABDOMEN: Soft, nontender. No guarding or rebound. EXTREMITIES: No cyanosis, clubbing or edema. NEUROLOGIC: Generalized weakness. No focal deficits. Results/Medications Result Diagram: 04/17/18 0545 04/17/18 0545 Results 24 hrs Laboratory Tests Test 04/16/18 16:55 04/17/18 05:45 CA 19-9 Antigen 47.5 H White Blood Count 5.9 Red Blood Count 2.96 L Hemoglobin 8.4 L Hematocrit 25.6 L Mean Corpuscular Volume 86.5 Mean Corpuscular Hemoglobin 28.4 L Mean Corpuscular Hemoglobin Concent 32.8 Red Cell Distribution Width 15.4 H Platelet Count 176 Mean Platelet Volume 10.3 Immature Granulocytes % 0.300 Neutrophils % 74.7 Lymphocytes % 9.0 L Monocytes % 12.1 H Eosinophils % 3.2 Basophils % 0.7 Nucleated Red Blood Cells % 0.0 Immature Granulocytes # 0.020 Neutrophils # 4.4 Lymphocytes # 0.5 L Monocytes # 0.7 Eosinophils # 0.2 Basophils # 0.0 Nucleated Red Blood Cells # 0.0 Sodium Level 141 Potassium Level 3.7 Chloride Level 111 H Carbon Dioxide Level 22 Anion Gap 8 Blood Urea Nitrogen 18 Creatinine 0.78 Est Glomerular Filtrat Rate mL/min > 60 Glucose Level 102 Calcium Level 8.3 L Phosphorus Level 2.5 Magnesium Level 1.8 Lipase 1751 H Medications Current Medications Acetaminophen (Tylenol Tab) 1,000 mg Q4 PRN PO MODERATE PAIN LEVEL 4-6 Last administered on 04/07/18 12:14; Admin Dose 1,000 MG; Start 03/31/18 at 18:00 Acetaminophen (Tylenol Tab) 650 mg Q4 PRN GTB MILD PAIN LEVEL 1-3 Last administered on 04/17/18 12:47; Admin Dose 650 MG; Start 03/31/18 at 18:00 Albuterol (Proventil 0.083% (Neb)) 2.5 mg Q3H PRN NEB WHEEZING AND SOB; Start 03/31/18 at 18:00 Albuterol (Proventil 0.083% (Neb)) 2.5 mg Q6 PRN NEB WHEEZING AND SOB; Start 03/31/18 at 18:00 Ascorbic Acid (Vitamin C) 500 mg DAILY GTB Last administered on 04/17/18 08:56; Admin Dose 500 MG; Start 04/01/18 at 09:00 Bisacodyl (Dulcolax Supp) 10 mg DAILY PRN [place] CONSTIPATION; Start 03/31/18 at 18:00 Multivit/Ca Carb/ B Cmplx/FA/Prenat (Sofy-Sandoval) 1 tab DAILY GTB Last administered on 04/17/18 08:55; Admin Dose 1 TAB; Start 04/01/18 at 09:00 Zinc Sulfate (Zinc Sulfate) 220 mg DAILY GTB Last administered on 04/17/18 08:55; Admin Dose 220 MG; Start 04/01/18 at 09:00 IV Flush (NS 3 ml) 3 ml PER PROTOCOL IV ; Start 03/31/18 at 18:30 Ondansetron HCl (Zofran Inj) 4 mg Q6H PRN IV NAUSEA AND/OR VOMITING; Start 03/31/18 at 18:30 Acetaminophen (Tylenol Tab) 650 mg Q6H PRN PO PAIN LEVEL 1-3 OR FEVER Last administered on 04/06/18 03:55; Admin Dose 650 MG; Start 03/31/18 at 18:30 Acetaminophen (Tylenol Supp) 650 mg Q6H PRN [place] PAIN LEVEL 1-3 OR FEVER Last administered on 04/02/18 20:38; Admin Dose 650 MG; Start 03/31/18 at 18:30 Docusate Sodium (Colace) 100 mg Q12H PRN PO CONSTIPATION; Start 03/31/18 at 18:30 Alteplase, Recombinant (Cathflo (Activase)) 2 mg MAY REPEAT X1 PRN CATHETER IF CATHETER REMAINS OCCULUDED Last administered on 04/03/18 04:24; Admin Dose 2 MG; Start 04/01/18 at 21:00 Collagenase (Santyl) 1 applic DAILY TOP Last administered on 04/17/18 08:55; Admin Dose 1 APPLIC; Start 04/03/18 at 12:00 Morphine Sulfate (morphine) 6 mg Q4H PRN GTB SEVERE PAIN LEVEL 6-10 Last administered on 04/16/18 16:23; Admin Dose 6 MG; Start 04/04/18 at 23:00 Lorazepam (Ativan) 2 mg Q4H PRN IV restless, agitation, anxiety Last administered on 04/15/18 02:46; Admin Dose 2 MG; Start 04/05/18 at 10:00 Pantoprazole (Protonix Iv) 40 mg BID@06,18 IV Last administered on 04/17/18 06:04; Admin Dose 40 MG; Start 04/08/18 at 18:00 Polyethylene Glycol (Miralax) 17 gm DAILY GTB Last administered on 04/17/18 08:55; Admin Dose 17 GM; Start 04/08/18 at 09:00 Carvedilol (Coreg) 50 mg BID GTB Last administered on 04/17/18 08:56; Admin Dose 50 MG; Start 04/08/18 at 21:00 Aspirin (Halfprin) 81 mg DAILY PO Last administered on 04/17/18 08:56; Admin Dose 81 MG; Start 04/15/18 at 12:30 Assessment/Plan Chief Complaint/Hosp Course Assessment 1. Vent dependent respiratory failure 2. Anemia from upper airway bleed 3. Chronic encephalopathy 4. Dysphagia with G-tube 5. Ongoing fevers Plan 1. Monitor H&H 2. Continue mechanical ventilation 3. GI recs 4. DVT and GI prophylaxis 5. Continue support sepsis workup [facility]IR[facility] PISANO MD, [facility] Apr 17, 2018 15:01
[2018-04-17] MEDS: LORAZEPAM 2 MG INJ IV PRN (21:48)
[2018-04-17] MEDS: morphine LIQ (10 MG/5 ML) CUP GTB PRN (23:47)
[2018-04-18] VITALS (24 sets, daily range): BP systolic 116–151; BP diastolic 82–91; PULSE 78–96; RESP 16–26
[2018-04-18] MEDS: PANTOPRAZOLE 40 MG INJ IV SCH (05:53)
[2018-04-18] MEDS: MULTIVIT/CA CARB/B CMPLX/FA TAB GTB SCH (08:35)
[2018-04-18] MEDS: POLYETHYLENE GLYCOL 17 GM PACKET GTB SCH (08:35)
[2018-04-18] MEDS: ZINC SULFATE 220 MG CAP GTB SCH (08:35)
[2018-04-18] MEDS: COLLAGENASE 5 GM (UD JAR) TOP SCH (08:37)
[2018-04-18] MEDS: ASPIRIN (EC) 81 MG TAB PO SCH (08:37)
[2018-04-18] MEDS: ASCORBIC ACID 500 MG TAB GTB SCH (08:37)
[2018-04-18] MEDS: BALSAM PERU/CASTOR OIL 60 GM TUBE TOP SCH ×2 (08:37→20:22)
--- NOTE | 2018-04-18 09:29 | CONS ---
Assessment/Plan Assessment/Plan Hospital Course 62 male with excessively bleeding gingival tissue and severe anemia 1. Severe acute on chronic anemia likely due to blood loss from #2 -improved 2. Excessive bleeding from gingival tissue -improved 3. Chronic liver disease, alcohol related 4. Mild coagulopathy 5. Pancreatitis -lipid panel wnl -CBD 6mm, LFT wnl -monitor lipase and amylase and LFTs -Radiology will not do MRCP because of vent 6. 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 Encephalopathy secondary to anoxic brain injury 8. H/o duodenal ulcer 9. Possible enterocolitis noted on CT 1.11 10. Pseudomonas in stool per microbiology but pt is asymptomatic, no diarrhea, no fevers. -neg o/p and c diff Plan: continue IVF to 50cc/hr and Tube feeds Monitor LFTs, lipase Bowel regimen Monitor HH and replace with PRBC as needed PPI BID Pt examined and plan of care discussed with Dr. Peña Result Diagram: 04/17/18 0545 04/17/18 0545 Consultation Date/Type/Reason Admit Date/Time Mar 31, 2018 at 17:58 Initial Consult Date 04/02/18 Requesting Provider: TAMARA GRAJEDA MD 24 HR Interval Summary Free Text/Dictation No labs this am. No active bleeding noted for mouth. Exam/Review of Systems Vital Signs Vitals Vital Signs Date Temp Pulse Resp B/P (MAP) Pulse Ox O2 O2 Flow FiO2 Time Delivery Rate 04/18/18 85 22 100 30 09:12 04/18/18 98.8 121/84 07:51 (96) 04/17/18 Room Air 16:06 Intake and Output 04/17/18 04/17/18 04/18/18 1515:00 23:00 07:00 IntakeIntake Total 580 ml 565 ml OutputOutput Total 90 ml 600 ml BalanceBalance 490 ml -35 ml Medications Medications Current Medications Acetaminophen (Tylenol Tab) 1,000 mg Q4 PRN PO MODERATE PAIN LEVEL 4-6 Last administered on 04/07/18at 12:14; Admin Dose 1,000 MG; Start 03/31/18 at 18:00 Acetaminophen (Tylenol Tab) 650 mg Q4 PRN GTB MILD PAIN LEVEL 1-3 Last administered on 04/17/18at 12:47; Admin Dose 650 MG; Start 03/31/18 at 18:00 Albuterol (Proventil 0.083% (Neb)) 2.5 mg Q3H PRN NEB WHEEZING AND SOB; Start 03/31/18 at 18:00 Albuterol (Proventil 0.083% (Neb)) 2.5 mg Q6 PRN NEB WHEEZING AND SOB; Start 03/31/18 at 18:00 Ascorbic Acid (Vitamin C) 500 mg DAILY GTB Last administered on 04/18/18 08:37; Admin Dose 500 MG; Start 04/01/18 at 09:00 Bisacodyl (Dulcolax Supp) 10 mg DAILY PRN [place] CONSTIPATION; Start 03/31/18 at 18:00 Multivit/Ca Carb/ B Cmplx/FA/Prenat (Sofy-Sandoval) 1 tab DAILY GTB Last admi nistered on 04/18/18 08:35; Admin Dose 1 TAB; Start 04/01/18 at 09:00 Zinc Sulfate (Zinc Sulfate) 220 mg DAILY GTB Last administered on 04/18/18 08:35; Admin Dose 220 MG; Start 04/01/18 at 09:00 IV Flush (NS 3 ml) 3 ml PER PROTOCOL IV ; Start 03/31/18 at 18:30 Ondansetron HCl (Zofran Inj) 4 mg Q6H PRN IV NAUSEA AND/OR VOMITING; Start 03/31/18 at 18:30 Acetaminophen (Tylenol Tab) 650 mg Q6H PRN PO PAIN LEVEL 1-3 OR FEVER Last administered on 04/06/18 03:55; Admin Dose 650 MG; Start 03/31/18 at 18:30 Acetaminophen (Tylenol Supp) 650 mg Q6H PRN [place] PAIN LEVEL 1-3 OR FEVER Last administered on 04/02/18at 20:38; Admin Dose 650 MG; Start 03/31/18 at 18:30 Docusate Sodium (Colace) 100 mg Q12H PRN PO CONSTIPATION; Start 03/31/18 at 18:30 Alteplase, Recombinant (Cathflo (Activase)) 2 mg MAY REPEAT X1 PRN CATHETER IF CATHETER REMAINS OCCULUDED Last administered on 04/03/18 04:24; Admin Dose 2 MG; Start 04/01/18 at 21:00 Collagenase (Santyl) 1 applic DAILY TOP Last administered on 04/18/18 08:37; Admin Dose 1 APPLIC; Start 04/03/18 at 12:00 Morphine Sulfate (morphine) 6 mg Q4H PRN GTB SEVERE PAIN LEVEL 6-10 Last administered on 04/17/18 23:47; Admin Dose 6 MG; Start 04/04/18 at 23:00 Lorazepam (Ativan) 2 mg Q4H PRN IV restless, agitation, anxiety Last administered on 04/17/18 21:48; Admin Dose 2 MG; Start 04/05/18 at 10:00 Pantoprazole (Protonix Iv) 40 mg BID@06,18 IV Last administered on 04/18/18at 05:53; Admin Dose 40 MG; Start 04/08/18 at 18:00 Polyethylene Glycol (Miralax) 17 gm DAILY GTB Last administered on 04/18/18 08:35; Admin Dose 17 GM; Start 04/08/18 at 09:00 Carvedilol (Coreg) 50 mg BID GTB Last administered on 04/18/18 08:37; Admin Dose 50 MG; Start 04/08/18 at 21:00 Aspirin (Halfprin) 81 mg DAILY PO Last administered on 04/18/18 08:37; Admin Dose 81 MG; Start 04/15/18 at 12:30 Date/Time of Note Date/Time of Note DATE: 04/18/18 TIME: 09:23 QI CHRISTIANSON Apr 18, 2018 09:29
--- NOTE | 2018-04-18 11:33 | CONS ---
Date/Time of Note Date/Time of Note DATE: 04/18/18 TIME: 11:30 Consult Date/Type/Reason Admit Date/Time Mar 31, 2018 at 17:58 Initial Consult Date 04/02/18 Type of Consultation: Pulmonary Requesting Provider: TAMARA GRAJEDA MD Subjective GENERAL: Chronically ill gentleman comfortable at rest no acute distress VITAL SIGNS: per chart NECK: Supple. No JVD or lymphadenopathy. Trach vent. CARDIAC EXAM: S1, S2. No added sounds or murmurs. CHEST: clear bilaterally, No added sounds, rales or wheezes ABDOMEN: Soft, nontender. No guarding or rebound. EXTREMITIES: No cyanosis, clubbing edema +1 NEUROLOGIC: Generalized weakness. Objective Vital Signs Date Temp Pulse Resp B/P (MAP) Pulse Ox O2 O2 Flow FiO2 Time Delivery Rate 04/18/18 89 18 98 30 11:09 04/18/18 98.8 121/84 07:51 (96) 04/17/18 Room Air 16:06 Intake and Output 04/17/18 04/17/18 04/18/18 1515:00 23:00 07:00 IntakeIntake Total 580 ml 565 ml OutputOutput Total 90 ml 600 ml BalanceBalance 490 ml -35 ml Results/Medications Result Diagram: 04/17/18 0545 04/17/18 0545 Medications Current Medications Acetaminophen (Tylenol Tab) 1,000 mg Q4 PRN PO MODERATE PAIN LEVEL 4-6 Last administered on 04/07/18at 12:14; Admin Dose 1,000 MG; Start 03/31/18 at 18:00 Acetaminophen (Tylenol Tab) 650 mg Q4 PRN GTB MILD PAIN LEVEL 1-3 Last administered on 04/17/18at 12:47; Admin Dose 650 MG; Start 03/31/18 at 18:00 Albuterol (Proventil 0.083% (Neb)) 2.5 mg Q3H PRN NEB WHEEZING AND SOB; Start 03/31/18 at 18:00 Albuterol (Proventil 0.083% (Neb)) 2.5 mg Q6 PRN NEB WHEEZING AND SOB; Start 03/31/18 at 18:00 Ascorbic Acid (Vitamin C) 500 mg DAILY GTB Last administered on 04/18/18at 08:37; Admin Dose 500 MG; Start 04/01/18 at 09:00 Bisacodyl (Dulcolax Supp) 10 mg DAILY PRN PA CONSTIPATION; Start 03/31/18 at 18:00 Multivit/Ca Carb/ B Cmplx/FA/Prenat (Sofy-Sandoval) 1 tab DAILY GTB Last administered on 04/18/18 08:35; Admin Dose 1 TAB; Start 04/01/18 at 09:00 Zinc Sulfate (Zinc Sulfate) 220 mg DAILY GTB Last administered on 04/18/18 08:35; Admin Dose 220 MG; Start 04/01/18 at 09:00 IV Flush (NS 3 ml) 3 ml PER PROTOCOL IV ; Start 03/31/18 at 18:30 Ondansetron HCl (Zofran Inj) 4 mg Q6H PRN IV NAUSEA AND/OR VOMITING; Start 03/31/18 at 18:30 Acetaminophen (Tylenol Tab) 650 mg Q6H PRN PO PAIN LEVEL 1-3 OR FEVER Last administered on 04/06/18 03:55; Admin Dose 650 MG; Start 03/31/18 at 18:30 Acetaminophen (Tylenol Supp) 650 mg Q6H PRN PA PAIN LEVEL 1-3 OR FEVER Last administered on 04/02/18 20:38; Admin Dose 650 MG; Start 03/31/18 at 18:30 Docusate Sodium (Colace) 100 mg Q12H PRN PO CONSTIPATION; Start 03/31/18 at 18:30 Alteplase, Recombinant (Cathflo (Activase)) 2 mg MAY REPEAT X1 PRN CATHETER IF CATHETER REMAINS OCCULUDED Last administered on 04/03/18 04:24; Admin Dose 2 MG; Start 04/01/18 at 21:00 Collagenase (Santyl) 1 applic DAILY TOP Last administered on 04/18/18 08:37; Admin Dose 1 APPLIC; Start 04/03/18 at 12:00 Morphine Sulfate (morphine) 6 mg Q4H PRN GTB SEVERE PAIN LEVEL 6-10 Last administered on 04/17/18 23:47; Admin Dose 6 MG; Start 04/04/18 at 23:00 Lorazepam (Ativan) 2 mg Q4H PRN IV restless, agitation, anxiety Last administered on 04/17/18 21:48; Admin Dose 2 MG; Start 04/05/18 at 10:00 Pantoprazole (Protonix Iv) 40 mg BID@06,18 IV Last administered on 04/18/18at 05:53; Admin Dose 40 MG; Start 04/08/18 at 18:00 Polyethylene Glycol (Miralax) 17 gm DAILY GTB Last administered on 04/18/18at 08:35; Admin Dose 17 GM; Start 04/08/18 at 09:00 Carvedilol (Coreg) 50 mg BID GTB Last administered on 04/18/18at 08:37; Admin Dose 50 MG; Start 04/08/18 at 21:00 Aspirin (Halfprin) 81 mg DAILY PO Last administered on 04/18/18at 08:37; Admin Dose 81 MG; Start 04/15/18 at 12:30 Assessment/Plan Chief Complaint/Hosp Course Assessment 1. Vent dependent respiratory failure 2. Anemia from upper airway bleed 3. Chronic encephalopathy 4. Dysphagia with G-tube 5. Afebrile now. Plan 1. Monitor H&H 2. Continue mechanical ventilation 3. GI recs 4. DVT and GI prophylaxis 5. Continue support sepsis workup SIRIA PISANO MD, [facility] Apr 18, 2018 11:33
--- NOTE | 2018-04-18 12:00 | DS ---
Date/Time of Note Date/Time of Note DATE: 04/18/18 TIME: 11:57 Discharge Summary Admission/Discharge Info Admit Date/Time Mar 31, 2018 at 17:58 Discharge Date/Time Hospital Course # Oral gingival bleeding likely due to dentures, seen by ENT s/p endoscopy # Sepsis with Fevers with hx Pneumonia +UTI and ? Pancreatitis +multiple wounds, ucx+ lisa # Blood loss anemia due to #1 # VDRF # CKD with worseing renal failure # Metabolic acidosis # DILATED CARDIOMYOPATHY # HX ALCOHOL ABUSE # Multiple wounds > decub # hypomagnesemia -temp again today -panculture - c/w feeding - ? off tobramycin - mrcp could not be done due to artifact issues -- off restraints, pt can be dc back to SNF is less than 24 h of restraints - cx neg so far - no blood thinners due to anemia - GI prophylaxis - monitor oral bleeding - PT/OT/Speech Home Meds Reported Medications Cran/Vitc/Mannose/Inulin/Brom (Uti-Stat Liquid) 3,875 Mg/30 Ml Liquid, 3875 MG GTB DAILY 03/31/18 Ascorbic Acid* (Vitamin C*) 500 Mg Capsule.sa, 500 MG GTB DAILY, CAP 03/31/18 Zinc Sulfate* (Zinc Sulfate*) 220 Mg Tablet, 220 MG GTB DAILY, TAB 03/31/18 Acetaminophen* (Acetaminophen*) 650 Mg Tablet, 650 MG GTB Q4 PRN for MILD PAIN LEVEL 1-3, #30 TAB AND FEVER 03/31/18 Acetaminophen* (Acetaminophen*) 500 MG Extra Strength Tablet, 1000 MG GTB Q4 PRN for MODERATE PAIN LEVEL 4-6, TAB 03/31/18 Acetaminophen* (Acetaminophen*) 325 Mg Tablet, 650 MG GTB TRACH CHANGE PRN for PAIN, #30 TAB GIVE 30 MIN PRIOR TO CHANGE 03/31/18 Spironolactone* (Aldactone*) 25 Mg Tablet, 25 MG GTB DAILY, #30 TAB 03/31/18 Multivit/Ca Carb/B Cmplx/Fa* (Sofy-Sandoval*) 1 Tab Tab, 1 TAB GTB DAILY, TAB 03/31/18 Hydrocodone/Acetaminophen ([place] 5-325 Tablet) 1 Each Tablet, 1 EACH GTB BID, TAB 03/31/18 Midodrine* (Midodrine*) 5 Mg Tablet, 5 MG GTB BID, TAB HOLD FOR SBP ABOVE 110 03/31/18 Na Phos,M-B/Na Phos,Di-Ba (ENEMA [id number]) 133 Ml Enema, 133 ML RC EVERY TWO DAYS PRN for CONSTIPATION, ENEMA 03/31/18 Bisacodyl (Dulcolax) 10 Mg Supp.rect, 10 MG RC DAILY PRN for CONSTIPATION, SUPP.RECT 03/31/18 Carvedilol* (Carvedilol*) 25 Mg Tablet, 25 MG GTB BID, #60 TAB HOLD FOR SBP BELOW 100 OR HR BELOW 50 03/31/18 Albuterol Sulfate* (Albuterol Sulfate* Neb) 0.083%-3 Ml Neb, 2.5 MG NEB Q6 PRN for WHEEZING AND SOB, #30 VIAL 03/31/18 Albuterol Sulfate* (Albuterol Sulfate* Neb) 0.083%-3 Ml Neb, 2.5 MG NEB Q3H PRN for WHEEZING AND SOB, #30 VIAL 03/31/18 Lactobacillus Acidophilus/Pect (Acidophilus-Pectin Capsule) 1 Each Capsule, 1 EACH GTB DAILY, CAP 03/31/18 Primary Care Provider Mart Lewis Pending Labs Microbiology Date/Time Source Procedure Growth Status 04/17/18 13:00 Schwartz Catheter Urine Culture - Preliminary NO GROWTH Resulted AFTER 24 HOURS LETITIA BLAKELY Apr 18, 2018 12:00
--- NOTE | 2018-04-18 12:03 | PN ---
Date/Time of Note Date/Time of Note DATE: 04/18/18 TIME: 12:00 Assessment/Plan VTE Prophylaxis Risk score (from Ns)>0 risk: 7 SCD applied (from Ns): Yes Pharmacological prophylaxis: NA/contraindicated Pharm contraindication: surgical contra Lines/Catheters IV Catheter Type (from Nrsg): Saline Lock Urinary Cath still in place: Yes Reason Cath still needed: urinary retention Assessment/Plan Hospital Course # Oral gingival bleeding likely due to dentures, seen by ENT s/p endoscopy # Sepsis with Fevers with hx Pneumonia +UTI and ? Pancreatitis +multiple wounds, ucx+ lisa # Blood loss anemia due to #1, resolved # VDRF # CKD , resolved # Metabolic acidosis # DILATED CARDIOMYOPATHY # HX ALCOHOL ABUSE # Multiple wounds > decub # hypomagnesemia Assessment/Plan -temp again -bl cul. pending -chest Xray positive for lower infiltrates/pneumonia/congestion - c/w feeding - ? off tobramycin - mrcp could not be done due to artifact issues -- off restraints, pt can be dc back to SNF is less than 48 h of restraints - cx neg so far - no blood thinners due to anemia - GI prophylaxis - monitor oral bleeding - PT/OT/Speech -c/w contact isolation MRSA -d/c planning Result Diagram: 04/17/18 0545 04/17/18 0545 Subjective 24 Hr Interval Summary Free Text/Dictation per pt is not recognizing her Exam/Review of Systems Exam Vitals Vital Signs Date Temp Pulse Resp B/P (MAP) Pulse Ox O2 O2 Flow FiO2 Time Delivery Rate 04/18/18 89 18 98 30 11:09 04/18/18 98.8 121/84 07:51 (96) 04/17/18 Room Air 16:06 Intake and Output 04/17/18 04/17/18 04/18/18 1515:00 23:00 07:00 IntakeIntake Total 580 ml 565 ml OutputOutput Total 90 ml 600 ml BalanceBalance 490 ml -35 ml Constitutional: non-verbal, frail Respiratory: diminished breath sounds Cardiovascular: regular rate and rhythm Gastrointestinal: soft, other (GT) Neurological: confused LETITIA BLAKELY Apr 18, 2018 12:03
--- NOTE | 2018-04-18 12:15 | CONS ---
Assessment/Plan Assessment/Plan Hospital Course (Demo Recall) No changes, looks comfortable, afebrile Microbiology: Blood cultures remain negative. Urine culture grew Breanne albicans. Sacral wound culture grew MRSA, Breanne albicans, enterococcus, gram- negative rods. Nares swab positive for MRSA CT of the abdomen and pelvis revealed questionable enterocolitis. Cholelithiasis. Tiny bilateral pleural effusions with bibasilar airspace disease. Indwelling: Peg, Schwartz, right upper extremity PICC line, tracheostomy Antimicrobials: none Physical examination: Chronically ill-appearing elderly man who is noncommunicative in no distress. Head atraumatic normocephalic sclera nonicteric neck is supple tracheostomy present chest rise symmetrical breath sounds diminished bases heart: S1-S2. Abdomen soft bowel sounds present. Extremities without cyanosis. Skin: Patient has multiple pressure sores he has a dry blood on the right lower lip Assessment: 1. S/p sepsis 2. Acute pancreatitis, CT of the abdomen revealed no abscess, no pseudocyst 3. S/p Breanne albicans UTI 4. History of cardiomyopathy 5. Chronic respiratory failure 6. S/p gingival bleeding 7. Sacral decub 8. MRSA nares colonization 9. Possible enterocolitis and sinusitis Plan: Clinically unchanged, stable off abx, will reculture prn T 101 Consultation Date/Type/Reason Admit Date/Time Mar 31, 2018 at 17:58 Initial Consult Date 04/02/18 Type of Consult id Requesting Provider: TAMARA GRAJEDA MD Date/Time of Note DATE: 04/18/18 TIME: 12:13 Exam/Review of Systems Exam Vitals Vital Signs Date Temp Pulse Resp B/P (MAP) Pulse Ox O2 O2 Flow FiO2 Time Delivery Rate 04/18/18 98.8 85 16 116/82 100 12:08 (93) 04/18/18 30 11:09 04/17/18 Room Air 16:06 Intake and Output 04/17/18 04/17/18 04/18/18 1515:00 23:00 07:00 IntakeIntake Total 580 ml 565 ml OutputOutput Total 90 ml 600 ml BalanceBalance 490 ml -35 ml Results Result Diagram: 04/17/18 0545 04/17/18 0545 RENÉ GARCIA NP Apr 18, 2018 12:15
[2018-04-18] MEDS: ACETAMINOPHEN 325 MG TAB GTB PRN (13:07)
[2018-04-18] MEDS: LANSOPRAZOLE 30 MG CAP PO SCH (18:16)
[2018-04-18] MEDS: LORAZEPAM 2 MG INJ IV PRN (20:21)
[2018-04-19] VITALS (23 sets, daily range): BP systolic 124–151; BP diastolic 80–90; PULSE 79–98; RESP 16–28
[2018-04-19] MEDS: ACETAMINOPHEN 325 MG TAB GTB PRN ×2 (00:58→21:01)
[2018-04-19] MEDS: LANSOPRAZOLE 30 MG CAP PO SCH ×2 (05:56→18:15)
--- NOTE | 2018-04-19 07:12 | CONS ---
Assessment/Plan Assessment/Plan Hospital Course (Demo Recall) 62 male with excessively bleeding gingival tissue and severe anemia 1. Severe acute on chronic anemia likely due to blood loss from #2 -improved 2. Excessive bleeding from gingival tissue -improved 3. Chronic liver disease, alcohol related 4. Mild coagulopathy 5. Pancreatitis -lipid panel wnl -CBD 6mm, LFT wnl -monitor lipase and amylase and LFTs -Radiology will not do MRCP because of vent 6. Chronic kidney disease -BUN/rn perinatal wnl 7. Encephalopathy secondary to anoxic brain injury 8. H/o duodenal ulcer 9. Possible enterocolitis noted on CT 1.11 10. Pseudomonas in stool per microbiology but pt is asymptomatic, no diarrhea, no fevers. -neg o/p and c diff Plan: Continue supportive care. Monitor LFTs, lipase Bowel regimen Monitor HH and replace with PRBC as needed PPI BID Pt examined and plan of care discussed with Dr. Peña Consultation Date/Type/Reason Admit Date/Time Mar 31, 2018 at 17:58 Initial Consult Date 04/02/18 Requesting Provider: TAMARA GRAEJDA MD Date/Time of Note DATE: 04/19/18 TIME: 07:11 24 HR Interval Summary Free Text/Dictation T max 100 degrees F 04/19 no diarrhea. hgb stable. No non verbal cues to pain while palpating abdomen. Tolerating tube feeds. Exam/Review of Systems Exam Vitals Vital Signs Date Temp Pulse Resp B/P (MAP) Pulse Ox O2 O2 Flow FiO2 Time Delivery Rate 04/19/18 82 28 100 30 05:12 04/19/18 98.6 151/83 Mechanical 04:58 (105) Ventilator Intake and Output 04/18/18 04/18/18 04/19/18 1515:00 23:00 07:00 IntakeIntake Total 620 ml 560 ml OutputOutput Total 500 ml 600 ml BalanceBalance 120 ml -40 ml ENMT: other (no active bleeding noted from gums) Gastrointestinal: soft, non-tender (no non verbal cues to pain during palpitation) Results Result Diagram: 04/19/18 0612 04/17/18 0545 Results 24hrs Laboratory Tests Test 04/19/18 06:12 White Blood Count 5.6 Red Blood Count 2.96 L Hemoglobin 8.3 L Hematocrit 25.7 L Mean Corpuscular Volume 86.8 Mean Corpuscular Hemoglobin 28.0 L Mean Corpuscular Hemoglobin Concent 32.3 Red Cell Distribution Width 15.2 H Platelet Count 165 Mean Platelet Volume 10.6 H Immature Granulocytes % 0.700 H Neutrophils % 73.9 Lymphocytes % 7.7 L Monocytes % 13.9 H Eosinophils % 3.1 Basophils % 0.7 Nucleated Red Blood Cells % 0.0 Immature Granulocytes # 0.040 H Neutrophils # 4.1 Lymphocytes # 0.4 L Monocytes # 0.8 Eosinophils # 0.2 Basophils # 0.0 Nucleated Red Blood Cells # 0.0 QI CHRISTIANSON Apr 19, 2018 07:12
[2018-04-19] MEDS: MULTIVIT/CA CARB/B CMPLX/FA TAB GTB SCH (08:27)
[2018-04-19] MEDS: POLYETHYLENE GLYCOL 17 GM PACKET GTB SCH (08:27)
[2018-04-19] MEDS: ASCORBIC ACID 500 MG TAB GTB SCH (08:28)
[2018-04-19] MEDS: ASPIRIN (EC) 81 MG TAB PO SCH (08:28)
[2018-04-19] MEDS: COLLAGENASE 5 GM (UD JAR) TOP SCH (08:28)
[2018-04-19] MEDS: ZINC SULFATE 220 MG CAP GTB SCH (08:28)
[2018-04-19] MEDS: BALSAM PERU/CASTOR OIL 60 GM TUBE TOP SCH ×2 (08:28→21:13)
[2018-04-19] MEDS: LORAZEPAM 2 MG INJ IV PRN ×2 (08:29→22:36)
[2018-04-19] MEDS ORDERED: POTASSIUM CHLORIDE 20 MEQ POWDER FOR ORAL SOLN GTB ONE (10:30)
--- NOTE | 2018-04-19 10:33 | DS ---
Date/Time of Note Date/Time of Note DATE: 04/19/18 TIME: 10:29 Discharge Summary Admission/Discharge Info Admit Date/Time Mar 31, 2018 at 17:58 Discharge Date/Time Discharge Diagnosis Oral gingival bleeding, pancreatitis Patient Condition: Stable Consults dr Bourgeois,ID neurology dr Bhatti, Dr Orona/Thomas, pulmonology Hospital Course Juan Manuel Penn is a 62-year-old male who comes in with numerous problems and is being seen for antibiotic management. His medical problems include: 1. Ventilator-dependent respiratory failure. 2. Status post tracheostomy. 3. The patient was admitted to [facility] on 03/08 for alcohol withdrawal syndrome. 4. Anoxic brain injury. 5. Pneumonia. 6. Cardiomyopathy. Patient is residing in [facility]. Patient appeared to have a significant amount of blood present within the oropharynx and therefore he was sent to the Emergency Room. He has not had fever or chills. Nursing staff indicated that the patient had been picking of the inside of his mouth which they felt may have started the bleeding. On admission, white count 9.7, H and H 7.3 and 22.8, platelet count 255,000. BUN and creatinine 85/1.4. PAST MEDICAL HISTORY: OPERATIONS: Status post tracheostomy. Ds: # Oral gingival bleeding likely due to dentures, was seen by ENT s/p endoscopy # Sepsis with Fevers with hx Pneumonia +UTI and ? Pancreatitis +multiple wounds, ucx+ lisa # Blood loss anemia due to #1, resolved # VDRF # CKD , resolved # Metabolic acidosis # DILATED CARDIOMYOPATHY # HX ALCOHOL ABUSE # Multiple wounds > decub # hypomagnesemia During hospitalization the bleeding was stopped and Pt sepsis was managed with a/b per Dr Bourgeois team. We monitor H&H. Neurocheck was a challenge due to pt nonverbal status, so dr Bhatti was called to manage and check. His ventilator support and treatment was provide by dr Orona. dr Peña managed patient acute pancreatitis more likely secondary to chronic liver disease, alcohol related. The lipid panel was wnl, CBD 6mm, LFT wnl. Their team monitored lipas e, amylase and LFTs. Dr Peña requested MRCP but radiology did not perform it due to ventilator. Pt was restarted on tube feeds 04/14/18 and lipase and amylase went up slightly. Pt was off restraints for 24 hours and cleared by all specialists to be d/c SNF. Discharge Ds: 1. S/p sepsis 2. Acute pancreatitis, CT of the abdomen revealed no abscess, no pseudocyst 3. S/p Lisa albicans UTI 4. History of cardiomyopathy 5. Chronic respiratory failure 6. S/p gingival bleeding 7. Sacral decub 8. MRSA nares colonization 9. Possible enterocolitis and sinusitis Home Meds Reported Medications Cran/Vitc/Mannose/Inulin/Brom (Uti-Stat Liquid) 3,875 Mg/30 Ml Liquid, 3875 MG GTB DAILY 03/31/18 Ascorbic Acid* (Vitamin C*) 500 Mg Capsule.sa, 500 MG GTB DAILY, CAP 03/31/18 Zinc Sulfate* (Zinc Sulfate*) 220 Mg Tablet, 220 MG GTB DAILY, TAB 03/31/18 Acetaminophen* (Acetaminophen*) 650 Mg Tablet, 650 MG GTB Q4 PRN for MILD PAIN LEVEL 1-3, #30 TAB AND FEVER 03/31/18 Acetaminophen* (Acetaminophen*) 500 MG Extra Strength Tablet, 1000 MG GTB Q4 PRN for MODERATE PAIN LEVEL 4-6, TAB 03/31/18 Acetaminophen* (Acetaminophen*) 325 Mg Tablet, 650 MG GTB TRACH CHANGE PRN for PAIN, #30 TAB GIVE 30 MIN PRIOR TO CHANGE 03/31/18 Spironolactone* (Aldactone*) 25 Mg Tablet, 25 MG GTB DAILY, #30 TAB 03/31/18 Multivit/Ca Carb/B Cmplx/Fa* (Sofy-Sandoval*) 1 Tab Tab, 1 TAB GTB DAILY, TAB 03/31/18 Hydrocodone/Acetaminophen ([place] 5-325 Tablet) 1 Each Tablet, 1 EACH GTB BID, TAB 03/31/18 Midodrine* (Midodrine*) 5 Mg Tablet, 5 MG GTB BID, TAB HOLD FOR SBP ABOVE 110 03/31/18 Na Phos,M-B/Na Phos,Di-Ba (ENEMA [id number]) 133 Ml Enema, 133 ML RC EVERY TWO DAYS PRN for CONSTIPATION, ENEMA 03/31/18 Bisacodyl (Dulcolax) 10 Mg Supp.rect, 10 MG RC DAILY PRN for CONSTIPATION, SUPP.RECT 03/31/18 Carvedilol* (Carvedilol*) 25 Mg Tablet, 25 MG GTB BID, #60 TAB HOLD FOR SBP BELOW 100 OR HR BELOW 50 03/31/18 Albuterol Sulfate* (Albuterol Sulfate* Neb) 0.083%-3 Ml Neb, 2.5 MG NEB Q6 PRN for WHEEZING AND SOB, #30 VIAL 03/31/18 Albuterol Sulfate* (Albuterol Sulfate* Neb) 0.083%-3 Ml Neb, 2.5 MG NEB Q3H PRN for WHEEZING AND SOB, #30 VIAL 03/31/18 Lactobacillus Acidophilus/Pect (Acidophilus-Pectin Capsule) 1 Each Capsule, 1 EACH GTB DAILY, CAP 03/31/18 Follow-up Plan SNF care Primary Care Provider Mart Lewis Time spent on discharge: < 30 minutes Pending Labs Laboratory Tests Test 04/19/18 06:12 04/19/18 06:13 White Blood Count 5.6 10^3/ul (4.8-10.8) Red Blood Count 2.96 10^6/ul (4.70-6.10) Hemoglobin 8.3 g/dl (14.0-18.0) Hematocrit 25.7 % (42.0-52.0) Mean Corpuscular Volume 86.8 fl (82.0-101.0) Mean Corpuscular Hemoglobin 28.0 pg (29.0-33.0) Mean Corpuscular 32.3 g/dl (32.0-37.0) Hemoglobin Concent Red Cell Distribution Width 15.2 % (11.5-14.5) Platelet Count 165 10^3/UL (140-415) Mean Platelet Volume 10.6 fl (7.4-10.4) Immature Granulocytes % 0.700 % (0.001-0.429) Neutrophils % 73.9 % (39.0-77.0) Lymphocytes % 7.7 % (15.0-51.0) Monocytes % 13.9 % (0.0-11.0) Eosinophils % 3.1 % (0.0-7.0) Basophils % 0.7 % (0.0-2.0) Nucleated Red Blood Cells % 0.0 /100WBC (0.0-0.0) Immature Granulocytes # 0.040 10^3/ul (0.0-0.031) Neutrophils # 4.1 10^3/ul (1.6-7.5) Lymphocytes # 0.4 10^3/ul (0.8-2.9) Monocytes # 0.8 10^3/ul (0.3-0.9) Eosinophils # 0.2 10^3/ul (0.0-0.5) Basophils # 0.0 10^3/ul (0.0-0.1) Nucleated Red Blood Cells # 0.0 10^3/ul (0.0-0.0) Sodium Level 141 mmol/L (135-144) Potassium Level 3.4 mmol/L (3.5-5.1) Chloride Level 109 mmol/L (97-110) Carbon Dioxide Level 24 mmol/L (21-31) Anion Gap 8 (5-13) Blood Urea Nitrogen 22 mg/dl (7-20) Creatinine 0.79 mg/dl (0.61-1.24) Est Glomerular Filtrat > 60 mL/min (>60) Rate mL/min Glucose Level 95 mg/dl (70-220) Calcium Level 8.7 mg/dl (8.4-10.2) Lipase 1961 U/L (23-300) LETITIA BLAKELY Apr 19, 2018 10:33
--- NOTE | 2018-04-19 11:07 | CONS ---
Assessment/Plan Assessment/Plan Hospital Course (Demo Recall) No changes, looks comfortable, afebrile Microbiology: Blood cultures remain negative. Urine culture grew Breanne albicans. Sacral wound culture grew MRSA, Breanne albicans, enterococcus, gram- negative rods. Nares swab positive for MRSA CT of the abdomen and pelvis revealed questionable enterocolitis. Cholelithiasis. Tiny bilateral pleural effusions with bibasilar airspace disease. Indwelling: Peg, Schwartz, right upper extremity PICC line, tracheostomy Antimicrobials: none Physical examination: Chronically ill-appearing elderly man who is noncommunicative in no distress. Head atraumatic normocephalic sclera nonicteric neck is supple tracheostomy present chest rise symmetrical breath sounds diminished bases heart: S1-S2. Abdomen soft bowel sounds present. Extremities without cyanosis. Skin: Patient has multiple pressure sores he has a dry blood on the right lower lip Assessment: 1. S/p sepsis 2. Acute pancreatitis, CT of the abdomen revealed no abscess, no pseudocyst 3. S/p Breanne albicans UTI 4. History of cardiomyopathy 5. Chronic respiratory failure 6. S/p gingival bleeding 7. Sacral decub 8. MRSA nares colonization 9. Possible enterocolitis and sinusitis Plan: Clinically unchanged, stable off abx, pending dc to SNF Consultation Date/Type/Reason Admit Date/Time Mar 31, 2018 at 17:58 Initial Consult Date 04/02/18 Type of Consult id Requesting Provider: TAMARA GRAJEDA MD Date/Time of Note DATE: 04/19/18 TIME: 11:06 Exam/Review of Systems Exam Vitals Vital Signs Date Temp Pulse Resp B/P (MAP) Pulse Ox O2 O2 Flow FiO2 Time Delivery Rate 04/19/18 82 27 100 30 10:47 04/19/18 97.6 151/82 Mechanical 07:50 (105) Ventilator Intake and Output 04/18/18 04/18/18 04/19/18 1515:00 23:00 07:00 IntakeIntake Total 620 ml 560 ml OutputOutput Total 500 ml 600 ml BalanceBalance 120 ml -40 ml Results Result Diagram: 04/19/18 0612 04/19/18 0613 Results 24hrs Laboratory Tests Test 04/19/18 06:12 04/19/18 06:13 White Blood Count 5.6 Red Blood Count 2.96 L Hemoglobin 8.3 L Hematocrit 25.7 L Mean Corpuscular Volume 86.8 Mean Corpuscular Hemoglobin 28.0 L Mean Corpuscular Hemoglobin Concent 32.3 Red Cell Distribution Width 15.2 H Platelet Count 165 Mean Platelet Volume 10.6 H Immature Granulocytes % 0.700 H Neutrophils % 73.9 Lymphocytes % 7.7 L Monocytes % 13.9 H Eosinophils % 3.1 Basophils % 0.7 Nucleated Red Blood Cells % 0.0 Immature Granulocytes # 0.040 H Neutrophils # 4.1 Lymphocytes # 0.4 L Monocytes # 0.8 Eosinophils # 0.2 Basophils # 0.0 Nucleated Red Blood Cells # 0.0 Sodium Level 141 Potassium Level 3.4 L Chloride Level 109 Carbon Dioxide Level 24 Anion Gap 8 Blood Urea Nitrogen 22 H Creatinine 0.79 Est Glomerular Filtrat Rate mL/min > 60 Glucose Level 95 Calcium Level 8.7 Lipase 1961 H RENÉ GARCIA NP Apr 19, 2018 11:07
--- NOTE | 2018-04-19 12:50 | CONS ---
Consult Date/Type/Reason Admit Date/Time Mar 31, 2018 at 17:58 Initial Consult Date 04/02/18 Type of Consult Pulmonary Requesting Provider: TAMARA GRAJEDA MD Date/Time of Note DATE: 04/19/18 TIME: 12:49 Objective Vital Signs Date Temp Pulse Resp B/P (MAP) Pulse Ox O2 O2 Flow FiO2 Time Delivery Rate 04/19/18 98.3 82 18 131/82 100 Mechanical 11:37 (98) Ventilator 04/19/18 30 10:47 Intake and Output 04/18/18 04/18/18 04/19/18 1515:00 23:00 07:00 IntakeIntake Total 620 ml 560 ml OutputOutput Total 500 ml 600 ml BalanceBalance 120 ml -40 ml Exam GENERAL: Well-nourished well-developed gentleman comfortable at rest VITAL SIGNS: per chart NECK: Supple. No JVD or lymphadenopathy. CARDIAC EXAM: S1, S2. No added sounds or murmurs. CHEST: clear bilaterally, No added sounds, rales or wheezes ABDOMEN: Soft, nontender. No guarding or rebound. EXTREMITIES: No cyanosis, clubbing or edema. NEUROLOGIC: Generalized weakness. No focal deficits. Vent Setting Ventilator Support Mode: AC Fraction of Inspired Oxygen pe: 30 Positive End Expiratory Pressu: 5.0 Results/Medications Result Diagram: 04/19/18 0612 04/19/18 0613 Results 24 hrs Laboratory Tests Test 04/19/18 06:12 04/19/18 06:13 White Blood Count 5.6 Red Blood Count 2.96 L Hemoglobin 8.3 L Hematocrit 25.7 L Mean Corpuscular Volume 86.8 Mean Corpuscular Hemoglobin 28.0 L Mean Corpuscular Hemoglobin Concent 32.3 Red Cell Distribution Width 15.2 H Platelet Count 165 Mean Platelet Volume 10.6 H Immature Granulocytes % 0.700 H Neutrophils % 73.9 Lymphocytes % 7.7 L Monocytes % 13.9 H Eosinophils % 3.1 Basophils % 0.7 Nucleated Red Blood Cells % 0.0 Immature Granulocytes # 0.040 H Neutrophils # 4.1 Lymphocytes # 0.4 L Monocytes # 0.8 Eosinophils # 0.2 Basophils # 0.0 Nucleated Red Blood Cells # 0.0 Sodium Level 141 Potassium Level 3.4 L Chloride Level 109 Carbon Dioxide Level 24 Anion Gap 8 Blood Urea Nitrogen 22 H Creatinine 0.79 Est Glomerular Filtrat Rate mL/min > 60 Glucose Level 95 Calcium Level 8.7 Lipase 1961 H Medications Current Medications Acetaminophen (Tylenol Tab) 1,000 mg Q4 PRN PO MODERATE PAIN LEVEL 4-6 Last administered on 04/07/18 12:14; Admin Dose 1,000 MG; Start 03/31/18 at 18:00 Acetaminophen (Tylenol Tab) 650 mg Q4 PRN GTB MILD PAIN LEVEL 1-3 Last administered on 04/19/18 00:58; Admin Dose 650 MG; Start 03/31/18 at 18:00 Albuterol (Proventil 0.083% (Neb)) 2.5 mg Q3H PRN NEB WHEEZING AND SOB; Start 03/31/18 at 18:00 Albuterol (Proventil 0.083% (Neb)) 2.5 mg Q6 PRN NEB WHEEZING AND SOB; Start 03/31/18 at 18:00 Ascorbic Acid (Vitamin C) 500 mg DAILY GTB Last administered on 04/19/18 08:28; Admin Dose 500 MG; Start 04/01/18 at 09:00 Bisacodyl (Dulcolax Supp) 10 mg DAILY PRN [place] CONSTIPATION; Start 03/31/18 at 18:00 Multivit/Ca Carb/ B Cmplx/FA/Prenat (Sofy-Sandoval) 1 tab DAILY GTB Last administered on 04/19/18 08:27; Admin Dose 1 TAB; Start 04/01/18 at 09:00 Zinc Sulfate (Zinc Sulfate) 220 mg DAILY GTB Last administered on 04/19/18 08:28; Admin Dose 220 MG; Start 04/01/18 at 09:00 IV Flush (NS 3 ml) 3 ml PER PROTOCOL IV ; Start 03/31/18 at 18:30 Ondansetron HCl (Zofran Inj) 4 mg Q6H PRN IV NAUSEA AND/OR VOMITING; Start 03/31/18 at 18:30 Acetaminophen (Tylenol Tab) 650 mg Q6H PRN PO PAIN LEVEL 1-3 OR FEVER Last administered on 04/06/18 03:55; Admin Dose 650 MG; Start 03/31/18 at 18:30 Acetaminophen (Tylenol Supp) 650 mg Q6H PRN [place] PAIN LEVEL 1-3 OR FEVER Last administered on 04/02/18 20:38; Admin Dose 650 MG; Start 03/31/18 at 18:30 Docusate Sodium (Colace) 100 mg Q12H PRN PO CONSTIPATION; Start 03/31/18 at 18: 30 Alteplase, Recombinant (Cathflo (Activase)) 2 mg MAY REPEAT X1 PRN CATHETER IF CATHETER REMAINS OCCULUDED Last administered on 04/03/18 04:24; Admin Dose 2 MG; Start 04/01/18 at 21:00 Collagenase (Santyl) 1 applic DAILY TOP Last administered on 04/19/18 08:28; Admin Dose 1 APPLIC; Start 04/03/18 at 12:00 Morphine Sulfate (morphine) 6 mg Q4H PRN GTB SEVERE PAIN LEVEL 6-10 Last administered on 04/17/18 23:47; Admin Dose 6 MG; Start 04/04/18 at 23:00 Lorazepam (Ativan) 2 mg Q4H PRN IV restless, agitation, anxiety Last administered on 04/19/18 08:29; Admin Dose 2 MG; Start 04/05/18 at 10:00 Polyethylene Glycol (Miralax) 17 gm DAILY GTB Last administered on 04/19/18 08:27; Admin Dose 17 GM; Start 04/08/18 at 09:00 Carvedilol (Coreg) 50 mg BID GTB Last administered on 04/19/18 08:28; Admin Dose 50 MG; Start 04/08/18 at 21:00 Aspirin (Halfprin) 81 mg DAILY PO Last administered on 04/19/18 08:28; Admin Dose 81 MG; Start 04/15/18 at 12:30 Lansoprazole (Prevacid) 30 mg BID@0600,1800 PO Last administered on 04/19/18 05:56; Admin Dose 30 MG; Start 04/18/18 at 18:00 Assessment/Plan Hospital Course (Demo Recall) Assessment 1. Vent dependent respiratory failure 2. Anemia from upper airway bleed 3. Chronic encephalopathy 4. Dysphagia with G-tube 5. Afebrile now. Plan 1. Monitor H&H 2. Continue mechanical ventilation 3. GI recs 4. DVT and GI prophylaxis agree with dc planning. SIRIA PISANO MD, [facility] Apr 19, 2018 12:50
[2018-04-20] VITALS (21 sets, daily range): BP systolic 99–139; BP diastolic 56–94; PULSE 80–104; RESP 17–28
[2018-04-20] MEDS: LANSOPRAZOLE 30 MG CAP PO SCH ×2 (06:33→21:48)
[2018-04-20] MEDS: ZINC SULFATE 220 MG CAP GTB SCH (09:18)
[2018-04-20] MEDS: ASCORBIC ACID 500 MG TAB GTB SCH (09:19)
[2018-04-20] MEDS: ASPIRIN (EC) 81 MG TAB PO SCH (09:19)
[2018-04-20] MEDS: MULTIVIT/CA CARB/B CMPLX/FA TAB GTB SCH (09:19)
[2018-04-20] MEDS: BALSAM PERU/CASTOR OIL 60 GM TUBE TOP SCH ×2 (09:20→21:48)
[2018-04-20] MEDS: ACETAMINOPHEN 325 MG TAB GTB PRN (09:20)
[2018-04-20] MEDS: POLYETHYLENE GLYCOL 17 GM PACKET GTB SCH (09:20)
[2018-04-20] MEDS: COLLAGENASE 5 GM (UD JAR) TOP SCH (09:21)
--- NOTE | 2018-04-20 11:08 | PN ---
Date/Time of Note Date/Time of Note DATE: 04/20/18 TIME: 11:06 Assessment/Plan VTE Prophylaxis Risk score (from Ns)>0 risk: 6 SCD applied (from Ns): Yes Pharmacological prophylaxis: NA/contraindicated Pharm contraindication: surgical contra Lines/Catheters [facility] Saline Lock Urinary Cath still in place: Yes Reason Cath still needed: urinary retention Assessment/Plan Hospital Course Juan Manuel Penn is a 62-year-old male who comes in with numerous problems and is being seen for antibiotic management. His medical problems include: 1. Ventilator-dependent respiratory failure. 2. Status post tracheostomy. 3. The patient was admitted to [facility] on 03/08 for alcohol withdrawal syndrome. 4. Anoxic brain injury. 5. Pneumonia. 6. Cardiomyopathy. Patient is residing in [facility]. Patient appeared to have a significant amount of blood present within the oropharynx and therefore he was sent to the Emergency Room. He has not had fever or chills. Nursing staff indicated that the patient had been picking of the inside of his mouth which they felt may have started the bleeding. On admission, white count 9.7, H and H 7.3 and 22.8, platelet count 255,000. BUN and creatinine 85/1.4. PAST MEDICAL HISTORY: OPERATIONS: Status post tracheostomy. Ds: # Oral gingival bleeding likely due to dentures, was seen by ENT s/p endoscopy # Sepsis with Fevers with hx Pneumonia +UTI and ? Pancreatitis +multiple wounds, ucx+ lisa # Blood loss anemia due to #1, resolved # VDRF # CKD , resolved # Metabolic acidosis # DILATED CARDIOMYOPATHY # HX ALCOHOL ABUSE # Multiple wounds > decub # hypomagnesemia During hospitalization the bleeding was stopped and Pt sepsis was managed with a/b per Dr Bourgeois team. We monitor H&H. Neurocheck was a challenge due to pt nonverbal status, so dr Bhatti was called to manage and check. His ventilator support and treatment was provide by dr [place]ron[place]. dr Peña managed patient acute pancreatitis more likely secondary to chronic liver disease, alcohol related. The lipid panel was wnl, CBD 6mm, LFT wnl. Their team monitored lipase, amylase and LFTs. Dr Peña requested MRCP but radiology did not perform it due to ventilator. Pt was restarted on tube feeds 04/14/18 and lipase and a mylase went up slightly. Pt was off restraints for 24 hours and cleared by all specialists to be d/c SNF. Discharge Ds: 1. S/p sepsis 2. Acute pancreatitis, CT of the abdomen revealed no abscess, no pseudocyst 3. S/p Lisa albicans UTI 4. History of cardiomyopathy 5. Chronic respiratory failure 6. S/p gingival bleeding 7. Sacral decub 8. MRSA nares colonization 9. Possible enterocolitis and sinusitis Assessment/Plan -bl cul. negative -chest Xray positive for lower infiltrates/pneumonia/congestion - c/w feeding --d/c pending due to placement -- off restraints - no blood thinners due to anemia - GI prophylaxis - monitor oral bleeding - PT/OT/Speech -c/w contact isolation MRSA Result Diagram: 04/19/1861104/19/18612 Subjective 24 Hr Interval Summary Subjective hx not possible: pt non-verbal Exam/Review of Systems Exam Vitals Vital Signs Date Temp Pulse Resp B/P (MAP) Pulse Ox O2 O2 Flow FiO2 Time Delivery Rate 04/20/18 100.3 09:20 04/20/18 80 08:56 04/20/18 30 08:30 04/20/18 18 123/94 99 [place] 07:50 (104) l Ventilato r Intake and Output 04/19/18 04/19/18 04/20/18 1515:00 23:00 07:00 IntakeIntake Total 1010 ml 912 ml OutputOutput Total 650 ml 650 ml BalanceBalance 360 ml 262 ml Constitutional: alert Head: normocephalic Neck: other (tracheostomy) Cardiovascular: regular rate and rhythm Gastrointestinal: soft, other (GT) Extremities: normal pulses Medications Medication Current Medications Acetaminophen (Tylenol Tab) 1,000 mg Q4 PRN PO MODERATE PAIN LEVEL 4-6 Last administered on 04/07/18at 12:14; Admin Dose 1,000 MG; Start 03/31/18 at 18:00 Acetaminophen (Tylenol Tab) 650 mg Q4 PRN GTB MILD PAIN LEVEL 1-3 Last administered on 04/20/18at 09:20; Admin Dose 650 MG; Start 03/31/18 at 18:00 Albuterol (Proventil 0.083% (Neb)) 2.5 mg Q3H PRN NEB WHEEZING AND SOB; Start 03/31/18 at 18:00 Albuterol (Proventil 0.083% (Neb)) 2.5 mg Q6 PRN NEB WHEEZING AND SOB; Start 03/31/18 at 18:00 Ascorbic Acid (Vitamin C) 500 mg DAILY GTB Last administered on 04/20/18at 09:19; Admin Dose 500 MG; Start 04/01/18 at 09:00 Bisacodyl (Dulcolax Supp) 10 mg DAILY PRN [place] CONSTIPATION; Start 03/31/18 at 18:00 Multivit/Ca Carb/ B Cmplx/FA/Prenat (Sofy-Sandoval) 1 tab DAILY GTB Last administered on 04/20/18at 09:19; Admin Dose 1 TAB; Start 04/01/18 at 09:00 Zinc Sulfate (Zinc Sulfate) 220 mg DAILY GTB Last administered on 04/20/18at 09:18; Admin Dose 220 MG; Start 04/01/18 at 09:00 IV Flush (NS 3 ml) 3 ml PER PROTOCOL IV ; Start 03/31/18 at 18:30 Ondansetron HCl (Zofran Inj) 4 mg Q6H PRN IV NAUSEA AND/OR VOMITING; Start 03/31/18 at 18:30 Acetaminophen (Tylenol Tab) 650 mg Q6H PRN PO PAIN LEVEL 1-3 OR FEVER Last administered on 04/06/18at 03:55; Admin Dose 650 MG; Start 03/31/18 at 18:30 Acetaminophen (Tylenol Supp) 650 mg Q6H PRN [place] PAIN LEVEL 1-3 OR FEVER Last administered on 04/02/18at 20:38; Admin Dose 650 MG; Start 03/31/18 at 18:30 Docusate Sodium (Colace) 100 mg Q12H PRN PO CONSTIPATION; Start 03/31/18 at 18:30 Alteplase, Recombinant (Cathflo (Activase)) 2 mg MAY REPEAT X1 PRN CATHETER IF CATHETER REMAINS OCCULUDED Last administered on 04/03/18at 04:24; Admin Dose 2 MG; Start 04/01/18 at 21:00 Collagenase (Santyl) 1 applic DAILY TOP Last administered on 04/20/18at 09:21; Admin Dose 1 APPLIC; Start 04/03/18 at 12:00 Morphine Sulfate (morphine) 6 mg Q4H PRN GTB SEVERE PAIN LEVEL 6-10 Last administered on 04/17/18at 23:47; Admin Dose 6 MG; Start 04/04/18 at 23:00 Lorazepam (Ativan) 2 mg Q4H PRN IV restless, agitation, anxiety Last administered on 04/19/18at 22:36; Admin Dose 2 MG; Start 04/05/18 at 10:00 Polyethylene Glycol (Miralax) 17 gm DAILY GTB Last administered on 04/20/18at 0 9:20; Admin Dose 17 GM; Start 04/08/18 at 09:00 Carvedilol (Coreg) 50 mg BID GTB Last administered on 04/20/18at 09:19; Admin Dose 50 MG; Start 04/08/18 at 21:00 Aspirin (Halfprin) 81 mg DAILY PO Last administered on 04/20/18at 09:19; Admin Dose 81 MG; Start 04/15/18 at 12:30 Lansoprazole (Prevacid) 30 mg BID@0600,1800 PO Last administered on 04/20/18at 06:33; Admin Dose 30 MG; Start 04/18/18 at 18:00 LETITIA BLAKELY Apr 20, 2018 11:08
--- NOTE | 2018-04-20 14:11 | CONS ---
Assessment/Plan Assessment/Plan Hospital Course (Demo Recall) Spiked fever this morning status post blood cultures sent. Looks comfortable currently afebrile Indwelling: Peg, Schwartz, tracheostomy Antimicrobials: none Physical examination: Chronically ill-appearing elderly man who is noncommunicative in no distress. Head atraumatic normocephalic sclera nonicteric neck is supple tracheostomy present chest rise symmetrical breath sounds diminished bases heart: S1-S2. Abdomen soft bowel sounds present. Extremities without cyanosis. Skin: Patient has multiple pressure sores he has a dry blood on the right lower lip Assessment: 1. Ongoing fevers possibly recurrent sepsis 2. Acute pancreatitis, CT of the abdomen revealed no abscess, no pseudocyst 3. S/p Breanne albicans UTI 4. History of cardiomyopathy 5. Chronic respiratory failure 6. S/p gingival bleeding 7. Sacral decub 8. MRSA nares colonization 9. Possible enterocolitis and sinusitis Plan: Clinically stable, status post blood cultures this morning, will order urine culture and chest x-ray, start vancomycin and meropenem Consultation Date/Type/Reason Admit Date/Time Mar 31, 2018 at 17:58 Initial Consult Date 04/02/18 Type of Consult id Requesting Provider: TAMARA GRAJEDA MD Date/Time of Note DATE: 04/20/18 TIME: 14:10 Exam/Review of Systems Exam Vitals Vital Signs Date Temp Pulse Resp B/P (MAP) Pulse Ox O2 O2 Flow FiO2 Time Delivery Rate 04/20/18 76 25 100 30 13:31 04/20/18 98.7 11:25 04/20/18 99/56 (70) Mechanical 11:05 Ventilator Intake and Output 04/19/18 04/19/18 04/20/18 1515:00 23:00 07:00 IntakeIntake Total 1010 ml 912 ml OutputOutput Total 650 ml 650 ml BalanceBalance 360 ml 262 ml Results Result Diagram: 04/19/1812 04/19/18 06 Medications Medication Current Medications Acetaminophen (Tylenol Tab) 1,000 mg Q4 PRN PO MODERATE PAIN LEVEL 4-6 Last administered on 04/07/18at 12:14; Admin Dose 1,000 MG; Start 03/31/18 at 18:00 Acetaminophen (Tylenol Tab) 650 mg Q4 PRN GTB MILD PAIN LEVEL 1-3 Last administered on 04/20/18 09:20; Admin Dose 650 MG; Start 03/31/18 at 18:00 Albuterol (Proventil 0.083% (Neb)) 2.5 mg Q3H PRN NEB WHEEZING AND SOB; Start 03/31/18 at 18:00 Albuterol (Proventil 0.083% (Neb)) 2.5 mg Q6 PRN NEB WHEEZING AND SOB; Start 03/31/18 at 18:00 Ascorbic Acid (Vitamin C) 500 mg DAILY GTB Last administered on 04/20/18at 09:1 9; Admin Dose 500 MG; Start 04/01/18 at 09:00 Bisacodyl (Dulcolax Supp) 10 mg DAILY PRN [place] CONSTIPATION; Start 03/31/18 at 18:00 Multivit/Ca Carb/ B Cmplx/FA/Prenat (Sofy-Sandoval) 1 tab DAILY GTB Last ad ministered on 04/20/18at 09:19; Admin Dose 1 TAB; Start 04/01/18 at 09:00 Zinc Sulfate (Zinc Sulfate) 220 mg DAILY GTB Last administered on 04/20/18at 09:18; Admin Dose 220 MG; Start 04/01/18 at 09:00 IV Flush (NS 3 ml) 3 ml PER PROTOCOL IV ; Start 03/31/18 at 18:30 Ondansetron HCl (Zofran Inj) 4 mg Q6H PRN IV NAUSEA AND/OR VOMITING; Start 03/31/18 at 18:30 Acetaminophen (Tylenol Tab) 650 mg Q6H PRN PO PAIN LEVEL 1-3 OR FEVER Last administered on 04/06/18at 03:55; Admin Dose 650 MG; Start 03/31/18 at 18:30 Acetaminophen (Tylenol Supp) 650 mg Q6H PRN [place] PAIN LEVEL 1-3 OR FEVER Last administered on 04/02/18at 20:38; Admin Dose 650 MG; Start 03/31/18 at 18:30 Docusate Sodium (Colace) 100 mg Q12H PRN PO CONSTIPATION; Start 03/31/18 at 18:30 Alteplase, Recombinant (Cathflo (Activase)) 2 mg MAY REPEAT X1 PRN CATHETER IF CATHETER REMAINS OCCULUDED Last administered on 04/03/18at 04:24; Admin Dose 2 MG; Start 04/01/18 at 21:00 Collagenase (Santyl) 1 applic DAILY TOP Last administered on 04/20/18 09:21; Admin Dose 1 APPLIC; Start 04/03/18 at 12:00 Morphine Sulfate (morphine) 6 mg Q4H PRN GTB SEVERE PAIN LEVEL 6-10 Last administered on 04/17/18 23:47; Admin Dose 6 MG; Start 04/04/18 at 23:00 Lorazepam (Ativan) 2 mg Q4H PRN IV restless, agitation, anxiety Last administered on 04/19/18at 22:36; Admin Dose 2 MG; Start 04/05/18 at 10:00 Polyethylene Glycol (Miralax) 17 gm DAILY GTB Last administered on 04/20/18 09:20; Admin Dose 17 GM; Start 04/08/18 at 09:00 Carvedilol (Coreg) 50 mg BID GTB Last administered on 04/20/18 09:19; Admin Dose 50 MG; Start 04/08/18 at 21:00 Aspirin (Halfprin) 81 mg DAILY PO Last administered on 04/20/18 09:19; Admin Dose 81 MG; Start 04/15/18 at 12:30 Lansoprazole (Prevacid) 30 mg BID@0600,1800 PO Last administered on 04/20/18at 06:33; Admin Dose 30 MG; Start 04/18/18 at 18:00 RENÉ GARCIA NP Apr 20, 2018 14:11
[2018-04-20] MEDS ORDERED: VANCOMYCIN IV PER PHARMACY XX SCH (14:30)
[2018-04-20] MEDS ORDERED: VANCOMYCIN HCL 1.25 GM in SOD CHLORIDE 0.9% 250 ML IVPB ONE (15:30)
[2018-04-20] MEDS: MEROPENEM 1 GM/50ML(PMX) 50 ML IVPB SCH ×2 (17:45→21:46)
--- NOTE | 2018-04-20 18:01 | CONS ---
Assessment/Plan Assessment/Plan Assessment/Plan (Daily) 62 male with excessively bleeding gingival tissue and severe anemia 1. Severe acute on chronic anemia likely due to blood loss from #2 -improved 2. Excessive bleeding from gingival tissue -improved 3. Chronic liver disease, alcohol related 4. Mild coagulopathy 5. Pancreatitis -lipid panel wnl -CBD 6mm, LFT wnl -monitor lipase and amylase and LFTs -Radiology will not do MRCP because of vent 6. 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 Encephalopathy secondary to anoxic brain injury 8. H/o duodenal ulcer 9. Possible enterocolitis noted on CT 1.11 10. Pseudomonas in stool per microbiology but pt is asymptomatic, no diarrhea, no fevers. -neg o/p and c diff Plan: Continue supportive care. Monitor LFTs, lipase Bowel regimen Monitor HH and replace with PRBC as needed PPI daily Patient's pancreas is totally normal based on the CAT scan. I do not think so patient has pancreatitis. Will stop doing lipase level We will just send for CA 199 Consultation Date/Type/Reason Admit Date/Time Mar 31, 2018 at 17:58 Initial Consult Date 04/02/18 Requesting Provider: TAMARA GRAJEDA MD Date/Time of Note DATE: 04/20/18 TIME: 18:00 24 HR Interval Summary Constitutional: no complaints Exam/Review of Systems Exam Vitals Vital Signs Date Temp Pulse Resp B/P (MAP) Pulse Ox O2 O2 Flow FiO2 Time Delivery Rate 04/20/18 85 23 100 30 17:44 04/20/18 98.9 121/78 Mechanical 15:50 (92) Ventilator Intake and Output 04/19/18 04/19/18 04/20/18 1515:00 23:00 07:00 IntakeIntake Total 1010 ml 912 ml OutputOutput Total 650 ml 650 ml BalanceBalance 360 ml 262 ml Eyes: nl conjunctiva ENMT: No nl external ears & nose, No nl lips & teeth, No nl nasal mucosa & septum, No mucosa pink and moist, No intubated, No tympanic membranes, No other Results Result Diagram: 04/19/1861104/19/18612 Medications Medication Current Medications Acetaminophen (Tylenol Tab) 1,000 mg Q4 PRN PO MODERATE PAIN LEVEL 4-6 Last administered on 04/07/18at 12:14; Admin Dose 1,000 MG; Start 03/31/18 at 18:00 Acetaminophen (Tylenol Tab) 650 mg Q4 PRN GTB MILD PAIN LEVEL 1-3 Last administered on 04/20/18at 09:20; Admin Dose 650 MG; Start 03/31/18 at 18:00 Albuterol (Proventil 0.083% (Neb)) 2.5 mg Q3H PRN NEB WHEEZING AND SOB; Start 03/31/18 at 18:00 Albuterol (Proventil 0.083% (Neb)) 2.5 mg Q6 PRN NEB WHEEZING AND SOB; Start 03/31/18 at 18:00 Ascorbic Acid (Vitamin C) 500 mg DAILY GTB Last administered on 04/20/18at 09:19; Admin Dose 500 MG; Start 04/01/18 at 09:00 Bisacodyl (Dulcolax Supp) 10 mg DAILY PRN [place] CONSTIPATION; Start 03/31/18 at 18:00 Multivit/Ca Carb/ B Cmplx/FA/Prenat (Sofy-Sandoval) 1 tab DAILY GTB Last administered on 04/20/18at 09:19; Admin Dose 1 TAB; Start 04/01/18 at 09:00 Zinc Sulfate (Zinc Sulfate) 220 mg DAILY GTB Last administered on 04/20/18at 09:18; Admin Dose 220 MG; Start 04/01/18 at 09:00 IV Flush (NS 3 ml) 3 ml PER PROTOCOL IV ; Start 03/31/18 at 18:30 Ondansetron HCl (Zofran Inj) 4 mg Q6H PRN IV NAUSEA AND/OR VOMITING; Start 03/31/18 at 18:30 Acetaminophen (Tylenol Tab) 650 mg Q6H PRN PO PAIN LEVEL 1-3 OR FEVER Last administered on 04/06/18at 03:55; Admin Dose 650 MG; Start 03/31/18 at 18:30 Acetaminophen (Tylenol Supp) 650 mg Q6H PRN [place] PAIN LEVEL 1-3 OR FEVER Last administered on 04/02/18at 20:38; Admin Dose 650 MG; Start 03/31/18 at 18:30 Docusate Sodium (Colace) 100 mg Q12H PRN PO CONSTIPATION; Start 03/31/18 at 18:30 Alteplase, Recombinant (Cathflo (Activase)) 2 mg MAY REPEAT X1 PRN CATHETER IF CATHETER REMAINS OCCULUDED Last administered on 04/03/18 04:24; Admin Dose 2 MG; Start 04/01/18 at 21:00 Collagenase (Santyl) 1 applic DAILY TOP Last administered on 04/20/18 09:21; Admin Dose 1 APPLIC; Start 04/03/18 at 12:00 Morphine Sulfate (morphine) 6 mg Q4H PRN GTB SEVERE PAIN LEVEL 6-10 Last administered on 04/17/18 23:47; Admin Dose 6 MG; Start 04/04/18 at 23:00 Lorazepam (Ativan) 2 mg Q4H PRN IV restless, agitation, anxiety Last administered on 04/19/18 22:36; Admin Dose 2 MG; Start 04/05/18 at 10:00 Polyethylene Glycol (Miralax) 17 gm DAILY GTB Last administered on 04/20/18 09:20; Admin Dose 17 GM; Start 04/08/18 at 09:00 Carvedilol (Coreg) 50 mg BID GTB Last administered on 04/20/18 09:19; Admin Dose 50 MG; Start 04/08/18 at 21:00 Aspirin (Halfprin) 81 mg DAILY PO Last administered on 04/20/18 09:19; Admin Dose 81 MG; Start 04/15/18 at 12:30 Lansoprazole (Prevacid) 30 mg BID@0600,1800 PO Last administered on 04/20/18 06:33; Admin Dose 30 MG; Start 04/18/18 at 18:00 Vancomycin HCl (Vanco Iv Per Pharmacy) VANCOMYCIN PER PHARMACY PER PROTOCOL XX ; Start 04/20/18 at 14:30 Meropenem/Sodium Chloride 50 ml @ 100 mls/hr Q12 IVPB Last administered on 04/20/18at 17:45; Admin Dose 100 MLS/HR; Start 04/20/18 at 14:30 Vancomycin HCl 1.25 gm/Sodium Chloride 250 ml @ 83.333 mls/ hr LOADING DOSE ONCE IVPB ; Start 04/20/18 at 15:30; Stop 04/20/18 at 18:29 Vancomycin HCl 250 ml @ 125 mls/hr Q24H IVPB ; Start 04/21/18 at 15:00 RASHEEDA MEJIA MD Apr 20, 2018 18:01
[2018-04-21] VITALS (23 sets, daily range): BP systolic 101–154; BP diastolic 66–94; PULSE 77–98; RESP 16–32
[2018-04-21] MEDS: POLYETHYLENE GLYCOL 17 GM PACKET GTB SCH (09:00)
[2018-04-21] MEDS ORDERED: SOD CHLORIDE 0.9% 500 ML IV ONE (09:00)
[2018-04-21] MEDS: MEROPENEM 1 GM/50ML(PMX) 50 ML IVPB SCH ×2 (09:16→20:41)
[2018-04-21] MEDS: ASCORBIC ACID 500 MG TAB GTB SCH (09:17)
[2018-04-21] MEDS: MULTIVIT/CA CARB/B CMPLX/FA TAB GTB SCH (09:17)
[2018-04-21] MEDS: ASPIRIN (EC) 81 MG TAB PO SCH (09:17)
[2018-04-21] MEDS: ZINC SULFATE 220 MG CAP GTB SCH (09:17)
[2018-04-21] MEDS: BALSAM PERU/CASTOR OIL 60 GM TUBE TOP SCH ×2 (09:18→20:47)
[2018-04-21] MEDS: COLLAGENASE 5 GM (UD JAR) TOP SCH (09:18)
--- NOTE | 2018-04-21 12:04 | CONS ---
Assessment/Plan Assessment/Plan Assessment/Plan (Daily) Ventilator setting; AC of 16, tidal volume 500, PEEP of 5, 30% FiO2. Chest x-ray was reviewed from yesterday which is fairly clear. Assessment recommendations; 1 patient with history of chronic encephalopathy and VDR F admitted for significant gingival bleeding with interval resolution. 2. Sacral ulcer, currently on appropriate antimicrobial regimen. 3. Anemia and thrombocytopenia. Continue current supportive care. Antibiotics per ID recommendations. Perform CPAP trial in daytime as tolerated. I did have a detailed discussion with the patient's at bedside and answered all her questions. Consultation Date/Type/Reason Admit Date/Time Mar 31, 2018 at 17:58 Initial Consult Date 04/02/18 Type of Consult Pulmonary/critical care History of presenting illness; Patient is a 62-year-old male who was admitted to the hospital with hypotension from shelter. Patient has history of advanced encephalopathy and VDR F and was unable to give any history by himself whatsoever. However after being fluid resuscitated patient's hemodynamics improved and patient did not require any pressor support. By the time I saw him in ICU, patient is on ventilator via tracheostomy and is unresponsive. Patient also did not appear to be in any distress. Past medical history; 1. Dilated cardiomyopathy. 2. Chronic encephalopathy. 3. VDR F. 4. G-tube placement. 5. Anemia. 6. History of alcohol abuse. 7. Renal insufficiency. Medications; reviewed. Allergies; none. Social history; patient has been a non-smoker. History of alcohol abuse. Family history, occupational history not available. Review of systems; unable to be obtained. General exam; elderly male, on ventilator via tracheostomy, unresponsive, currently in no distress. Requesting Provider: TAMARA GRAJEDA MD Date/Time of Note DATE: 04/21/18 TIME: 12:01 24 HR Interval Summary Free Text/Dictation Patient's condition is stable. Due to chronic severe encephalopathy, patient remains noncommunicative. No further gingival bleeding noted. General exam; elderly male, on ventilator via tracheostomy, unresponsive, currently no distress. Exam/Review of Systems Exam Vitals Vital Signs Date Temp Pulse Resp B/P (MAP) Pulse Ox O2 O2 Flow FiO2 Time Delivery Rate 04/21/18 78 11:01 04/21/18 30 08:00 04/21/18 99.0 18 101/66 100 Mechanical 07:50 (78) Ventilator Intake and Output 04/20/18 04/20/18 04/21/18 1414:59 22:59 06:59 IntakeIntake Total 800 ml OutputOutput Total 550 ml 650 ml BalanceBalance -550 ml 150 ml Exam H EENT exam; supple neck, no JVD. No lymphadenopathy. Midline trachea. No thyromegaly. There is mild crusting of blood around the lips. No active bleeding seen. Patient has carious teeth. Chest exam; clear to auscultation. S1-S2 audible, no murmurs. Regular rhythm. Abdomen exam; soft, G-tube in place. No organomegaly. Nondistended. Bowel sounds audible. Extremity exam; no peripheral edema. PROJECT DESIGNER exam; patient remains noncommunicative. Results Result Diagram: 04/19/1861104/19/18612 Results 24hrs Laboratory Tests Test 04/21/18 06:54 04/21/18 09:30 CA 19-9 Antigen 50.2 H Urine Color YELLOW Urine Clarity SLIGHTLY CLOUDY A Urine pH 6.0 Urine Specific [place] 1.017 Urine Ketones NEGATIVE Urine Nitrite NEGATIVE Urine Bilirubin NEGATIVE Urine Urobilinogen 1+ H Urine Leukocyte Esterase 2+ H Urine Microscopic RBC 42 H Urine Microscopic WBC 110 H Urine Mucus FEW A Urine Hemoglobin 1+ H Urine Glucose NEGATIVE Urine Total Protein 1+ H Medications Medication Current Medications Acetaminophen (Tylenol Tab) 1,000 mg Q4 PRN PO MODERATE PAIN LEVEL 4-6 Last administered on 04/07/18at 12:14; Admin Dose 1,000 MG; Start 03/31/18 at 18:00 Acetaminophen (Tylenol Tab) 650 mg Q4 PRN GTB MILD PAIN LEVEL 1-3 Last administered on 04/20/18at 09:20; Admin Dose 650 MG; Start 03/31/18 at 18:00 Albuterol (Proventil 0.083% (Neb)) 2.5 mg Q3H PRN NEB WHEEZING AND SOB; Start 03/31/18 at 18:00 Albuterol (Proventil 0.083% (Neb)) 2.5 mg Q6 PRN NEB WHEEZING AND SOB; Start 03/31/18 at 18:00 Ascorbic Acid (Vitamin C) 500 mg DAILY GTB Last administered on 04/21/18at 09:17; Admin Dose 500 MG; Start 04/01/18 at 09:00 Bisacodyl (Dulcolax Supp) 10 mg DAILY PRN [place] CONSTIPATION; Start 03/31/18 at 18:00 Multivit/Ca Carb/ B Cmplx/FA/Prenat (Sofy-Sandoval) 1 tab DAILY GTB Last administered on 04/21/18 09:17; Admin Dose 1 TAB; Start 04/01/18 at 09:00 Zinc Sulfate (Zinc Sulfate) 220 mg DAILY GTB Last administered on 04/21/18 09:17; Admin Dose 220 MG; Start 04/01/18 at 09:00 IV Flush (NS 3 ml) 3 ml PER PROTOCOL IV ; Start 03/31/18 at 18:30 Ondansetron HCl (Zofran Inj) 4 mg Q6H PRN IV NAUSEA AND/OR VOMITING; Start 03/31/18 at 18:30 Acetaminophen (Tylenol Tab) 650 mg Q6H PRN PO PAIN LEVEL 1-3 OR FEVER Last administered on 04/06/18 03:55; Admin Dose 650 MG; Start 03/31/18 at 18:30 Acetaminophen (Tylenol Supp) 650 mg Q6H PRN [place] PAIN LEVEL 1-3 OR FEVER Last administered on 04/02/18 20:38; Admin Dose 650 MG; Start 03/31/18 at 18:30 Docusate Sodium (Colace) 100 mg Q12H PRN PO CONSTIPATION; Start 03/31/18 at 18:30 Alteplase, Recombinant (Cathflo (Activase)) 2 mg MAY REPEAT X1 PRN CATHETER IF CATHETER REMAINS OCCULUDED Last administered on 04/03/18 04:24; Admin Dose 2 MG; Start 04/01/18 at 21:00 Collagenase (Santyl) 1 applic DAILY TOP Last administered on 04/21/18 09:18; Admin Dose 1 APPLIC; Start 04/03/18 at 12:00 Morphine Sulfate (morphine) 6 mg Q4H PRN GTB SEVERE PAIN LEVEL 6-10 Last administered on 04/17/18 23:47; Admin Dose 6 MG; Start 04/04/18 at 23:00 Lorazepam (Ativan) 2 mg Q4H PRN IV restless, agitation, anxiety Last adm inistered on 04/19/18 22:36; Admin Dose 2 MG; Start 04/05/18 at 10:00 Polyethylene Glycol (Miralax) 17 gm DAILY GTB Last administered on 04/20/18 09:20; Admin Dose 17 GM; Start 04/08/18 at 09:00 Carvedilol (Coreg) 50 mg BID GTB Last administered on 04/20/18at 21:48; Admin Dose 50 MG; Start 04/08/18 at 21:00 Aspirin (Halfprin) 81 mg DAILY PO Last administered on 04/21/18 09:17; Admin Dose 81 MG; Start 04/15/18 at 12:30 Vancomycin HCl (Vanco Iv Per Pharmacy) VANCOMYCIN PER PHARMACY PER PROTOCOL XX ; Start 04/20/18 at 14:30 Meropenem/Sodium Chloride 50 ml @ 100 mls/hr Q12 IVPB Last administered on 04/21/18at 09:16; Admin Dose 100 MLS/HR; Start 04/20/18 at 14:30 Vancomycin HCl 250 ml @ 125 mls/hr Q24H IVPB ; Start 04/21/18 at 15:00 Lansoprazole (Prevacid) 30 mg HS PO Last administered on 04/20/18at 21:48; Admin Dose 30 MG; Start 04/20/18 at 21:00 DION MAGALLANES Apr 21, 2018 12:03
--- NOTE | 2018-04-21 12:47 | PN ---
Date/Time of Note Date/Time of Note DATE: 04/21/18 TIME: 12:45 Assessment/Plan VTE Prophylaxis Risk score (from Ns)>0 risk: 5 SCD applied (from Ns): Yes Pharmacological prophylaxis: NA/contraindicated Pharm contraindication: surgical contra Lines/Catheters [facility] [place] Urinary Cath still in place: Yes Reason Cath still needed: urinary retention Assessment/Plan Hospital Course # UTI # Oral gingival bleeding likely due to dentures, was seen by ENT s/p endoscopy # Sepsis with Fevers with hx Pneumonia +UTI and ? Pancreatitis +multiple wounds, ucx+ lisa # Blood loss anemia due to #1, resolved # VDRF # CKD , resolved # Metabolic acidosis # DILATED CARDIOMYOPATHY # HX ALCOHOL ABUSE # Multiple wounds > decub # hypomagnesemia # low grade fever Assessment/Plan -bl cul. negative -chest Xray positive for lower infiltrates/pneumonia/congestion - c/w feeding -c/w Vanco and Meropenem --d/c pending due to placement -- off restraints - no blood thinners due to anemia - GI prophylaxis - monitor oral bleeding - PT/OT/Speech -c/w contact isolation MRSA Result Diagram: 04/19/18 0612 04/19/18 0613 Results 24hrs Laboratory Tests Test 04/21/18 06:54 04/21/18 09:30 CA 19-9 Antigen 50.2 H Urine Color YELLOW Urine Clarity SLIGHTLY CLOUDY A Urine pH 6.0 Urine Specific [place] 1.017 Urine Ketones NEGATIVE Urine Nitrite NEGATIVE Urine Bilirubin NEGATIVE Urine Urobilinogen 1+ H Urine Leukocyte Esterase 2+ H Urine Microscopic RBC 42 H Urine Microscopic WBC 110 H Urine Mucus FEW A Urine Hemoglobin 1+ H Urine Glucose NEGATIVE Urine Total Protein 1+ H Subjective 24 Hr Interval Summary Subjective hx not possible: pt non-verbal Exam/Review of Systems Exam Vitals Vital Signs Date Temp Pulse Resp B/P (MAP) Pulse Ox O2 O2 Flow FiO2 Time Delivery Rate 04/21/18 30 12:17 04/21/18 99.3 90 18 115/78 100 Mechanical 11:45 (90) Ventilator Intake and Output 04/20/18 04/20/18 04/21/18 1515:00 23:00 07:00 IntakeIntake Total 800 ml OutputOutput Total 550 ml 650 ml BalanceBalance -550 ml 150 ml Constitutional: frail Eyes: nl conjunctiva ENMT: nl external ears & nose, other (tracheostomy) Neck: supple Respiratory: clear to auscultation Cardiovascular: regular rate and rhythm Gastrointestinal: soft, other (Gt) Musculoskeletal: muscle weakness Results Results 24hrs Laboratory Tests Test 04/21/18 06:54 04/21/18 09:30 CA 19-9 Antigen 50.2 H Urine Color YELLOW Urine Clarity SLIGHTLY CLOUDY A Urine pH 6.0 Urine Specific [place] 1.017 Urine Ketones NEGATIVE Urine Nitrite NEGATIVE Urine Bilirubin NEGATIVE Urine Urobilinogen 1+ H Urine Leukocyte Esterase 2+ H Urine Microscopic RBC 42 H Urine Microscopic WBC 110 H Urine Mucus FEW A Urine Hemoglobin 1+ H Urine Glucose NEGATIVE Urine Total Protein 1+ H Medications Medication Current Medications Acetaminophen (Tylenol Tab) 1,000 mg Q4 PRN PO MODERATE PAIN LEVEL 4-6 Last administered on 04/07/18 12:14; Admin Dose 1,000 MG; Start 03/31/18 at 18:00 Acetaminophen (Tylenol Tab) 650 mg Q4 PRN GTB MILD PAIN LEVEL 1-3 Last administered on 04/20/18 09:20; Admin Dose 650 MG; Start 03/31/18 at 18:00 Albuterol (Proventil 0.083% (Neb)) 2.5 mg Q3H PRN NEB WHEEZING AND SOB; Start 03/31/18 at 18:00 Albuterol (Proventil 0.083% (Neb)) 2.5 mg Q6 PRN NEB WHEEZING AND SOB; Start 03/31/18 at 18:00 Ascorbic Acid (Vitamin C) 500 mg DAILY GTB Last administered on 04/21/18at 09:17; Admin Dose 500 MG; Start 04/01/18 at 09:00 Bisacodyl (Dulcolax Supp) 10 mg DAILY PRN [place] CONSTIPATION; Start 03/31/18 at 18:00 Multivit/Ca Carb/ B Cmplx/FA/Prenat (Sofy-Sandoval) 1 tab DAILY GTB Last administered on 04/21/18 09:17; Admin Dose 1 TAB; Start 04/01/18 at 09:00 Zinc Sulfate (Zinc Sulfate) 220 mg DAILY GTB Last administered on 04/21/18 09:17; Admin Dose 220 MG; Start 04/01/18 at 09:00 IV Flush (NS 3 ml) 3 ml PER PROTOCOL IV ; Start 03/31/18 at 18:30 Ondansetron HCl (Zofran Inj) 4 mg Q6H PRN IV NAUSEA AND/OR VOMITING; Start 03/31/18 at 18:30 Acetaminophen (Tylenol Tab) 650 mg Q6H PRN PO PAIN LEVEL 1-3 OR FEVER Last administered on 04/06/18 03:55; Admin Dose 650 MG; Start 03/31/18 at 18:30 Acetaminophen (Tylenol Supp) 650 mg Q6H PRN [place] PAIN LEVEL 1-3 OR FEVER Last administered on 04/02/18 20:38; Admin Dose 650 MG; Start 03/31/18 at 18:30 Docusate Sodium (Colace) 100 mg Q12H PRN PO CONSTIPATION; Start 03/31/18 at 18:30 Alteplase, Recombinant (Cathflo (Activase)) 2 mg MAY REPEAT X1 PRN CATHETER IF CATHETER REMAINS OCCULUDED Last administered on 04/03/18 04:24; Admin Dose 2 MG; Start 04/01/18 at 21:00 Collagenase (Santyl) 1 applic DAILY TOP Last administered on 04/21/18 09:18; Admin Dose 1 APPLIC; Start 04/03/18 at 12:00 Morphine Sulfate (morphine) 6 mg Q4H PRN GTB SEVERE PAIN LEVEL 6-10 Last ad ministered on 04/17/18 23:47; Admin Dose 6 MG; Start 04/04/18 at 23:00 Lorazepam (Ativan) 2 mg Q4H PRN IV restless, agitation, anxiety Last administered on 04/19/18 22:36; Admin Dose 2 MG; Start 04/05/18 at 10:00 Polyethylene Glycol (Miralax) 17 gm DAILY GTB Last administered on 04/20/18 09:20; Admin Dose 17 GM; Start 04/08/18 at 09:00 Carvedilol (Coreg) 50 mg BID GTB Last administered on 04/20/18 21:48; Admin Dose 50 MG; Start 04/08/18 at 21:00 Aspirin (Halfprin) 81 mg DAILY PO Last administered on 04/21/18 09:17; Admin Dose 81 MG; Start 04/15/18 at 12:30 Vancomycin HCl (Vanco Iv Per Pharmacy) VANCOMYCIN PER PHARMACY PER PROTOCOL XX ; Start 04/20/18 at 14:30 Meropenem/Sodium Chloride 50 ml @ 100 mls/hr Q12 IVPB Last administered on 04/21/18at 09:16; Admin Dose 100 MLS/HR; Start 04/20/18 at 14:30 Vancomycin HCl 250 ml @ 125 mls/hr Q24H IVPB ; Start 04/21/18 at 15:00 Lansoprazole (Prevacid) 30 mg HS PO Last administered on 04/20/18at 21:48; Admin Dose 30 MG; Start 04/20/18 at 21:00 LETITIA BLAKELY Apr 21, 2018 12:47
--- NOTE | 2018-04-21 13:58 | CONS ---
Assessment/Plan Assessment/Plan Hospital Course (Demo Recall) Patient continues to spike fever with a T-max of 104.1 last night. Currently afebrile in no distress. No labs this morning. Indwelling: Trach PEG Schwartz. Antimicrobials: Patient was started on Vanco and Merrem yesterday. Urinalysis was grossly positive for leukocyte Estrace WBC Microbiology: Blood cultures remain negative, urine culture pending Chest x-ray done yesterday revealed cardiomegaly and thoracic aortic atherosclerosis no focal dense pulmonary parenchymal opacification and general appearance of the chest is improved Physical examination: Chronically ill-appearing elderly man who is noncommunicative in no distress. Head atraumatic normocephalic sclera nonicteric neck is supple tracheostomy present chest rise symmetrical breath sounds diminished bases heart: S1-S2. Abdomen soft bowel sounds present. Extremities without cyanosis. Skin: Patient has multiple pressure sores he has a dry blood on the right lower lip Assessment: 1. Ongoing fevers possibly secondary to urinary tract infection 2. Acute pancreatitis, CT of the abdomen revealed no abscess, no pseudocyst 3. S/p Breanne albicans UTI 4. History of cardiomyopathy 5. Chronic respiratory failure 6. S/p gingival bleeding 7. Sacral decub 8. MRSA nares colonization 9. Possible enterocolitis and sinusitis Plan: Clinically stable, so far blood cultures negative, chest x-ray improved, patient was started on broad-spectrum antibiotics and still febrile, we will add fluconazole to the regimen but will ask staff to change Schwartz catheter and await for urine culture Discussed with RN Consultation Date/Type/Reason Admit Date/Time Mar 31, 2018 at 17:58 Initial Consult Date 04/02/18 Type of Consult id Requesting Provider: TAMARA GRAJEDA MD Date/Time of Note DATE: 04/21/18 TIME: 13:54 Exam/Review of Systems Exam Vitals Vital Signs Date Temp Pulse Resp B/P (MAP) Pulse Ox O2 O2 Flow FiO2 Time Delivery Rate 04/21/18 79 18 96 30 13:38 04/21/18 99.3 115/78 Mechanical 11:45 (90) Ventilator Intake and Output 04/20/18 04/20/18 04/21/18 1515:00 23:00 07:00 IntakeIntake Total 800 ml OutputOutput Total 550 ml 650 ml BalanceBalance -550 ml 150 ml Results Result Diagram: 04/19/18 0612 04/19/18 0613 Results 24hrs Laboratory Tests Test 04/21/18 06:54 04/21/18 09:30 CA 19-9 Antigen 50.2 H Urine Color YELLOW Urine Clarity SLIGHTLY CLOUDY A Urine pH 6.0 Urine Specific [place] 1.017 Urine Ketones NEGATIVE Urine Nitrite NEGATIVE Urine Bilirubin NEGATIVE Urine Urobilinogen 1+ H Urine Leukocyte Esterase 2+ H Urine Microscopic RBC 42 H Urine Microscopic WBC 110 H Urine Mucus FEW A Urine Hemoglobin 1+ H Urine Glucose NEGATIVE Urine Total Protein 1+ H Medications Medication Current Medications Acetaminophen (Tylenol Tab) 1,000 mg Q4 PRN PO MODERATE PAIN LEVEL 4-6 Last administered on 04/07/18 12:14; Admin Dose 1,000 MG; Start 03/31/18 at 18:00 Acetaminophen (Tylenol Tab) 650 mg Q4 PRN GTB MILD PAIN LEVEL 1-3 Last administered on 04/20/18at 09:20; Admin Dose 650 MG; Start 03/31/18 at 18:00 Albuterol (Proventil 0.083% (Neb)) 2.5 mg Q3H PRN NEB WHEEZING AND SOB; Start 03/31/18 at 18:00 Albuterol (Proventil 0.083% (Neb)) 2.5 mg Q6 PRN NEB WHEEZING AND SOB; Start 03/31/18 at 18:00 Ascorbic Acid (Vitamin C) 500 mg DAILY GTB Last administered on 04/21/18at 09:17; Admin Dose 500 MG; Start 04/01/18 at 09:00 Bisacodyl (Dulcolax Supp) 10 mg DAILY PRN [place] CONSTIPATION; Start 03/31/18 at 18:00 Multivit/Ca Carb/ B Cmplx/FA/Prenat (Sofy-Sandoval) 1 tab DAILY GTB Last administered on 04/21/18at 09:17; Admin Dose 1 TAB; Start 04/01/18 at 09:00 Zinc Sulfate (Zinc Sulfate) 220 mg DAILY GTB Last administered on 04/21/18 09:17; Admin Dose 220 MG; Start 04/01/18 at 09:00 IV Flush (NS 3 ml) 3 ml PER PROTOCOL IV ; Start 03/31/18 at 18:30 Ondansetron HCl (Zofran Inj) 4 mg Q6H PRN IV NAUSEA AND/OR VOMITING; Start 03/31/18 at 18:30 Acetaminophen (Tylenol Tab) 650 mg Q6H PRN PO PAIN LEVEL 1-3 OR FEVER Last administered on 04/06/18 03:55; Admin Dose 650 MG; Start 03/31/18 at 18:30 Acetaminophen (Tylenol Supp) 650 mg Q6H PRN [place] PAIN LEVEL 1-3 OR FEVER Last administered on 04/02/18 20:38; Admin Dose 650 MG; Start 03/31/18 at 18:30 Docusate Sodium (Colace) 100 mg Q12H PRN PO CONSTIPATION; Start 03/31/18 at 18:30 Alteplase, Recombinant (Cathflo (Activase)) 2 mg MAY REPEAT X1 PRN CATHETER IF CATHETER REMAINS OCCULUDED Last administered on 04/03/18 04:24; Admin Dose 2 MG; Start 04/01/18 at 21:00 Collagenase (Santyl) 1 applic DAILY TOP Last administered on 04/21/18 09:18; Admin Dose 1 APPLIC; Start 04/03/18 at 12:00 Morphine Sulfate (morphine) 6 mg Q4H PRN GTB SEVERE PAIN LEVEL 6-10 Last administered on 04/17/18 23:47; Admin Dose 6 MG; Start 04/04/18 at 23:00 Lorazepam (Ativan) 2 mg Q4H PRN IV restless, agitation, anxiety Last administered on 04/19/18 22:36; Admin Dose 2 MG; Start 04/05/18 at 10:00 Polyethylene Glycol (Miralax) 17 gm DAILY GTB Last administered on 04/20/18at 0 9:20; Admin Dose 17 GM; Start 04/08/18 at 09:00 Carvedilol (Coreg) 50 mg BID GTB Last administered on 04/20/18 21:48; Admin Dose 50 MG; Start 04/08/18 at 21:00 Aspirin (Halfprin) 81 mg DAILY PO Last administered on 04/21/18 09:17; Admin Dose 81 MG; Start 04/15/18 at 12:30 Vancomycin HCl (Vanco Iv Per Pharmacy) VANCOMYCIN PER PHARMACY PER PROTOCOL XX ; Start 04/20/18 at 14:30 Meropenem/Sodium Chloride 50 ml @ 100 mls/hr Q12 IVPB Last administered on 1/27/19at 09:16; Admin Dose 100 MLS/HR; Start 04/20/18 at 14:30 Vancomycin HCl 250 ml @ 125 mls/hr Q24H IVPB ; Start 04/21/18 at 15:00 Lansoprazole (Prevacid) 30 mg HS PO Last administered on 04/20/18at 21:48; Admin Dose 30 MG; Start 04/20/18 at 21:00 RENÉ GARCIA NP Apr 21, 2018 13:58
--- NOTE | 2018-04-21 14:47 | CONS ---
DATE OF ADMISSION: 03/31/2018 DATE OF CONSULTATION: TYPE OF CONSULTATION: Gastroenterology. HISTORY OF PRESENT ILLNESS: The patient is a 62-year-old male with a history of a dilated cardiomyop athy, alcohol abuse, status post tracheostomy and PEG, has no complaint. Again, the patient is nonve rbal. I spoke to the bitumastic applier who said no abdominal pain, no nausea, no vomiting. OBJECTIVE: GENERAL: The patient is comfortable. He is on vent. ABDOMEN: Benign, tolerating G-tube feeding. EXTREMITIES: No edema. CENTRAL NERVOUS SYSTEM: Does not communicate. IMPRESSION: 1. Dilated cardiomyopathy. 2. Chronic vent-dependent respiratory failure. 3. Chronic encephalopathy. 4. PEG, status post G-tube placement. 5. History of alcohol abuse. 6. Anemia. 7. Elevation of lipase with normal CAT scan and abdominal pain cannot be judged because of his menta l status. 8. Mild elevation of [place] 19-9. PLAN: At this point is to continue feeding. The patient is not a candidate for MRCP, so we cannot e valuate the biliary system or the pancreatic duct. If there is a concern, then we will have to proce ed straight with ERCP. This hospital does not have EUS for me to evaluate. Dictated By: RASHEEDA SOLORZANO/NTS Conf#: [id number] DID#: [id number] CC: GARFIELD MOREAU MD; MACY WAY MD;*EndCC*
[2018-04-21] MEDS ORDERED: VANCOMYCIN 1 GM 250 ML IVPB SCH (15:00)
[2018-04-21] MEDS: FLUCONAZOLE 100 MG TAB PO SCH (15:19)
[2018-04-21] MEDS: LANSOPRAZOLE 30 MG CAP PO SCH (20:44)
[2018-04-22] VITALS (22 sets, daily range): BP systolic 106–153; BP diastolic 72–95; PULSE 73–99; RESP 16–28
[2018-04-22] MEDS: ACETAMINOPHEN 650 MG SUPP PR PRN (00:12)
[2018-04-22] MEDS: LORAZEPAM 2 MG INJ IV PRN ×2 (00:47→13:07)
[2018-04-22] MEDS: COLLAGENASE 5 GM (UD JAR) TOP SCH (09:07)
[2018-04-22] MEDS: FLUCONAZOLE 100 MG TAB PO SCH (09:07)
[2018-04-22] MEDS: ASPIRIN (EC) 81 MG TAB PO SCH (09:07)
[2018-04-22] MEDS: ZINC SULFATE 220 MG CAP GTB SCH (09:07)
[2018-04-22] MEDS: MEROPENEM 1 GM/50ML(PMX) 50 ML IVPB SCH (09:07)
[2018-04-22] MEDS: POLYETHYLENE GLYCOL 17 GM PACKET GTB SCH (09:07)
[2018-04-22] MEDS: MULTIVIT/CA CARB/B CMPLX/FA TAB GTB SCH (09:07)
[2018-04-22] MEDS: ASCORBIC ACID 500 MG TAB GTB SCH (09:07)
[2018-04-22] MEDS: BALSAM PERU/CASTOR OIL 60 GM TUBE TOP SCH ×2 (09:08→21:05)
[2018-04-22] MEDS: ACETAMINOPHEN 325 MG TAB PO PRN (09:18)
--- NOTE | 2018-04-22 09:29 | CONS ---
Assessment/Plan Assessment/Plan Assessment/Plan (Daily) Chest x-ray was reviewed from yesterday which is showing a very minimal left lower lobe infiltrate. Ventilator setting; patient is currently on CPAP pressure support of 10 and 30% FiO2. Assessment recommendations; 1. Patient with history of VD RF and chronic encephalopathy admitted for bleeding from gums. Patient has remained stable for the last 2 days without any further bleeding noted. 2. Mild anemia. 3. Left lower lobe pneumonia, patient currently on appropriate antimicrobial regimen. 4. Patient handling CPAP mode fairly well and daytime. Continue current supportive care. Antibiotics per ID recommendations. Continue CPAP as tolerated. Patient to be given a T-piece trial in 48 hours. Consultation Date/Type/Reason Admit Date/Time Mar 31, 2018 at 17:58 Initial Consult Date 04/02/18 Type of Consult Pulmonary/critical care History of presenting illness; Patient is a 62-year-old male who was admitted to the hospital with hypotension from longterm. Patient has history of advanced encephalopathy and VDR F and was unable to give any history by himself whatsoever. However after being fluid resuscitated patient's hemodynamics improved and patient did not require any pressor support. By the time I saw him in ICU, patient is on ventilator via tracheostomy and is unresponsive. Patient also did not appear to be in any distress. Past medical history; 1. Dilated cardiomyopathy. 2. Chronic encephalopathy. 3. VDR F. 4. G-tube placement. 5. Anemia. 6. History of alcohol abuse. 7. Renal insufficiency. Medications; reviewed. Allergies; none. Social history; patient has been a non-smoker. History of alcohol abuse. Family history, occupational history not available. Review of systems; unable to be obtained. General exam; elderly male, on ventilator via tracheostomy, unresponsive, currently in no distress. Requesting Provider: TAMARA GRAJEDA MD Date/Time of Note DATE: 04/22/18 TIME: 09:26 24 HR Interval Summary Free Text/Dictation Patient's condition is stable. Pending CPAP mode very well. Has remained hemo dynamically stable. General exam; elderly male, on ventilator via tracheostomy, unresponsive, curr ently in no distress. Exam/Review of Systems Exam Vitals Vital Signs Date Temp Pulse Resp B/P (MAP) Pulse Ox O2 O2 Flow FiO2 Time Delivery Rate 04/22/18 101.0 09:18 04/22/18 86 24 100 30 08:23 04/22/18 144/95 08:10 (111) 04/21/18 Mechanica 15:50 l Ventilato r Intake and Output 04/21/18 04/21/18 04/22/18 1515:00 23:00 07:00 IntakeIntake Total 50 ml 300 ml 900 ml OutputOutput Total 550 ml 800 ml BalanceBalance 50 ml -250 ml 100 ml Exam HEENT exam; supple neck, no JVD. No lymphadenopathy. Midline trachea. No thyromegaly. No acute bleeding noted from gingiva. Patient is having multiple carious teeth. Tracheostomy in place. Chest exam; diminished but clear breath sounds. S1-S2 audible, no murmurs. Regular rhythm. Abdomen exam; soft, G-tube in place. No organomegaly. Bowel sounds audible. Extremity exam; no peripheral edema. DIRECTOR ECONOMIC exam; patient remains unresponsive. Results Result Diagram: 04/22/18 0607 04/22/18 0607 Results 24hrs Laboratory Tests Test 04/21/18 09:30 04/22/18 06:07 Urine Color YELLOW Urine Clarity SLIGHTLY CLOUDY A Urine pH 6.0 Urine Specific [place] 1.017 Urine Ketones NEGATIVE Urine Nitrite NEGATIVE Urine Bilirubin NEGATIVE Urine Urobilinogen 1+ H Urine Leukocyte Esterase 2+ H Urine Microscopic RBC 42 H Urine Microscopic WBC 110 H Urine Mucus FEW A Urine Hemoglobin 1+ H Urine Glucose NEGATIVE Urine Total Protein 1+ H White Blood Count 6.2 Red Blood Count 2.84 L Hemoglobin 7.9 L Hematocrit 24.9 L Mean Corpuscular Volume 87.7 Mean Corpuscular Hemoglobin 27.8 L Mean Corpuscular Hemoglobin Concent 31.7 L Red Cell Distribution Width 15.2 H Platelet Count 172 Mean Platelet Volume 10.6 H Immature Granulocytes % 0.600 H Neutrophils % 76.4 Lymphocytes % 6.1 L Monocytes % 11.8 H Eosinophils % 4.5 Basophils % 0.6 Nucleated Red Blood Cells % 0.0 Immature Granulocytes # 0.040 H Neutrophils # 4.7 Lymphocytes # 0.4 L Monocytes # 0.7 Eosinophils # 0.3 Basophils # 0.0 Nucleated Red Blood Cells # 0.0 Sodium Level 144 Potassium Level 4.0 Chloride Level 107 Carbon Dioxide Level 25 Anion Gap 12 Blood Urea Nitrogen 28 H Creatinine 0.79 Est Glomerular Filtrat Rate mL/min > 60 Glucose Level 89 Calcium Level 8.4 Medications Medication Current Medications Acetaminophen (Tylenol Tab) 1,000 mg Q4 PRN PO MODERATE PAIN LEVEL 4-6 Last administered on 04/07/18 12:14; Admin Dose 1,000 MG; Start 03/31/18 at 18:00 Acetaminophen (Tylenol Tab) 650 mg Q4 PRN GTB MILD PAIN LEVEL 1-3 Last administered on 04/20/18 09:20; Admin Dose 650 MG; Start 03/31/18 at 18:00 Albuterol (Proventil 0.083% (Neb)) 2.5 mg Q3H PRN NEB WHEEZING AND SOB; Start 03/31/18 at 18:00 Albuterol (Proventil 0.083% (Neb)) 2.5 mg Q6 PRN NEB WHEEZING AND SOB; Start 03/31/18 at 18:00 Ascorbic Acid (Vitamin C) 500 mg DAILY GTB Last administered on 04/22/18 09:07; Admin Dose 500 MG; Start 04/01/18 at 09:00 Bisacodyl (Dulcolax Supp) 10 mg DAILY PRN [place] CONSTIPATION; Start 03/31/18 at 18:00 Multivit/Ca Carb/ B Cmplx/FA/Prenat (Sofy-Sandoval) 1 tab DAILY GTB Last administered on 04/22/18 09:07; Admin Dose 1 TAB; Start 04/01/18 at 09:00 Zinc Sulfate (Zinc Sulfate) 220 mg DAILY GTB Last administered on 04/22/18 09:07; Admin Dose 220 MG; Start 04/01/18 at 09:00 IV Flush (NS 3 ml) 3 ml PER PROTOCOL IV ; Start 03/31/18 at 18:30 Ondansetron HCl (Zofran Inj) 4 mg Q6H PRN IV NAUSEA AND/OR VOMITING; Start 03/31/18 at 18:30 Acetaminophen (Tylenol Tab) 650 mg Q6H PRN PO PAIN LEVEL 1-3 OR FEVER Last administered on 04/22/18 09:18; Admin Dose 650 MG; Start 03/31/18 at 18:30 Acetaminophen (Tylenol Supp) 650 mg Q6H PRN [place] PAIN LEVEL 1-3 OR FEVER Last administered on 04/22/18 00:12; Admin Dose 650 MG; Start 03/31/18 at 18:30 Docusate Sodium (Colace) 100 mg Q12H PRN PO CONSTIPATION; Start 03/31/18 at 18:30 Alteplase, Recombinant (Cathflo (Activase)) 2 mg MAY REPEAT X1 PRN CATHETER IF CATHETER REMAINS OCCULUDED Last administered on 04/03/18 04:24; Admin Dose 2 MG; Start 04/01/18 at 21:00 Collagenase (Santyl) 1 applic DAILY TOP Last administered on 04/22/18 09:07; Admin Dose 1 APPLIC; Start 04/03/18 at 12:00 Morphine Sulfate (morphine) 6 mg Q4H PRN GTB SEVERE PAIN LEVEL 6-10 Last administered on 04/17/18 23:47; Admin Dose 6 MG; Start 04/04/18 at 23:00 Lorazepam (Ativan) 2 mg Q4H PRN IV restless, agitation, anxiety Last administered on 04/22/18 00:47; Admin Dose 2 MG; Start 04/05/18 at 10:00 Polyethylene Glycol (Miralax) 17 gm DAILY GTB Last administered on 04/22/18 09:07; Admin Dose 17 GM; Start 04/08/18 at 09:00 Carvedilol (Coreg) 50 mg BID GTB Last administered on 04/22/18 09:07; Admin Dose 50 MG; Start 04/08/18 at 21:00 Aspirin (Halfprin) 81 mg DAILY PO Last administered on 04/22/18 09:07; Admin Dose 81 MG; Start 04/15/18 at 12:30 Vancomycin HCl (Vanco Iv Per Pharmacy) VANCOMYCIN PER PHARMACY PER PROTOCOL XX ; Start 04/20/18 at 14:30 Meropenem/Sodium Chloride 50 ml @ 100 mls/hr Q12 IVPB Last administered on 04/22/18 09:07; Admin Dose 100 MLS/HR; Start 04/20/18 at 14:30 Vancomycin HCl 250 ml @ 125 mls/hr Q24H IVPB Last administered on 04/21/18 15:19; Admin Dose 125 MLS/HR; Start 04/21/18 at 15:00 Lansoprazole (Prevacid) 30 mg HS PO Last administered on 04/21/18 20:44; Admin Dose 30 MG; Start 04/20/18 at 21:00 Fluconazole (Diflucan) 100 mg DAILY PO Last administered on 04/22/18at 09:07; Admin Dose 100 MG; Start 04/21/18 at 14:00 DION MAGALLANES Apr 22, 2018 09:29
[2018-04-22] MEDS ORDERED: AMIKACIN IV PER PHARMACY XX SCH (11:30)
--- NOTE | 2018-04-22 12:17 | PN ---
Date/Time of Note Date/Time of Note DATE: 04/22/18 TIME: 12:17 Assessment/Plan VTE Prophylaxis Risk score (from Ns)>0 risk: 7 SCD applied (from Ns): Yes Pharmacological prophylaxis: NA/contraindicated Pharm contraindication: anticoag not tolerated Lines/Catheters IV Catheter Type (from Nrs): Saline Lock Urinary Cath still in place: Yes Reason Cath still needed: urinary retention Assessment/Plan Hospital Course # UTI # Oral gingival bleeding likely due to dentures, was seen by ENT s/p endoscopy # Sepsis with Fevers with hx Pneumonia +UTI and ? Pancreatitis +multiple wounds, ucx+ lisa # Blood loss anemia due to #1, resolved # VDRF # CKD , resolved # Metabolic acidosis # DILATED CARDIOMYOPATHY # HX ALCOHOL ABUSE # Multiple wounds > decub # hypomagnesemia # low grade fever Assessment/Plan ID work to find a source of infection -consults are appreciated -anticoagulants are not tolerated -c/w GT feeding Result Diagram: 04/22/18 0607 04/22/18 0607 Results 24hrs Laboratory Tests Test 04/22/18 06:07 White Blood Count 6.2 Red Blood Count 2.84 L Hemoglobin 7.9 L Hematocrit 24.9 L Mean Corpuscular Volume 87.7 Mean Corpuscular Hemoglobin 27.8 L Mean Corpuscular Hemoglobin Concent 31.7 L Red Cell Distribution Width 15.2 H Platelet Count 172 Mean Platelet Volume 10.6 H Immature Granulocytes % 0.600 H Neutrophils % 76.4 Lymphocytes % 6.1 L Monocytes % 11.8 H Eosinophils % 4.5 Basophils % 0.6 Nucleated Red Blood Cells % 0.0 Immature Granulocytes # 0.040 H Neutrophils # 4.7 Lymphocytes # 0.4 L Monocytes # 0.7 Eosinophils # 0.3 Basophils # 0.0 Nucleated Red Blood Cells # 0.0 Sodium Level 144 Potassium Level 4.0 Chloride Level 107 Carbon Dioxide Level 25 Anion Gap 12 Blood Urea Nitrogen 28 H Creatinine 0.79 Est Glomerular Filtrat Rate mL/min > 60 Glucose Level 89 Calcium Level 8.4 Subjective 24 Hr Interval Summary Subjective hx not possible: pt non-verbal Exam/Review of Systems Exam Vitals Vital Signs Date Temp Pulse Resp B/P (MAP) Pulse Ox O2 O2 Flow FiO2 Time Delivery Rate 04/22/18 98.4 83 18 106/72 100 Mechanical 11:41 (83) Ventilator 04/22/18 30 11:19 Intake and Output 04/21/18 04/21/18 04/22/18 1515:00 23:00 07:00 IntakeIntake Total 50 ml 300 ml 900 ml OutputOutput Total 550 ml 800 ml BalanceBalance 50 ml -250 ml 100 ml Exam lethargic Head: normocephalic Eyes: nl conjunctiva ENMT: other (tracheostomy) Neck: supple Respiratory: diminished breath sounds Cardiovascular: regular rate and rhythm Gastrointestinal: other (G tube) Results Results 24hrs Laboratory Tests Test 04/22/18 06:07 White Blood Count 6.2 Red Blood Count 2.84 L Hemoglobin 7.9 L Hematocrit 24.9 L Mean Corpuscular Volume 87.7 Mean Corpuscular Hemoglobin 27.8 L Mean Corpuscular Hemoglobin Concent 31.7 L Red Cell Distribution Width 15.2 H Platelet Count 172 Mean Platelet Volume 10.6 H Immature Granulocytes % 0.600 H Neutrophils % 76.4 Lymphocytes % 6.1 L Monocytes % 11.8 H Eosinophils % 4.5 Basophils % 0.6 Nucleated Red Blood Cells % 0.0 Immature Granulocytes # 0.040 H Neutrophils # 4.7 Lymphocytes # 0.4 L Monocytes # 0.7 Eosinophils # 0.3 Basophils # 0.0 Nucleated Red Blood Cells # 0.0 Sodium Level 144 Potassium Level 4.0 Chloride Level 107 Carbon Dioxide Level 25 Anion Gap 12 Blood Urea Nitrogen 28 H Creatinine 0.79 Est Glomerular Filtrat Rate mL/min > 60 Glucose Level 89 Calcium Level 8.4 Medications Medication Current Medications Acetaminophen (Tylenol Tab) 1,000 mg Q4 PRN PO MODERATE PAIN LEVEL 4-6 Last administered on 04/07/18at 12:14; Admin Dose 1,000 MG; Start 03/31/18 at 18:00 Acetaminophen (Tylenol Tab) 650 mg Q4 PRN GTB MILD PAIN LEVEL 1-3 Last administered on 04/20/18at 09:20; Admin Dose 650 MG; Start 03/31/18 at 18:00 Albuterol (Proventil 0.083% (Neb)) 2.5 mg Q3H PRN NEB WHEEZING AND SOB; Start 03/31/18 at 18:00 Albuterol (Proventil 0.083% (Neb)) 2.5 mg Q6 PRN NEB WHEEZING AND SOB; Start 03/31/18 at 18:00 Ascorbic Acid (Vitamin C) 500 mg DAILY GTB Last administered on 04/22/18 09:07; Admin Dose 500 MG; Start 04/01/18 at 09:00 Bisacodyl (Dulcolax Supp) 10 mg DAILY PRN [place] CONSTIPATION; Start 03/31/18 at 18:00 Multivit/Ca Carb/ B Cmplx/FA/Prenat (Sofy-Sandoval) 1 tab DAILY GTB Last administered on 04/22/18 09:07; Admin Dose 1 TAB; Start 04/01/18 at 09:00 Zinc Sulfate (Zinc Sulfate) 220 mg DAILY GTB Last administered on 04/22/18 09:07; Admin Dose 220 MG; Start 04/01/18 at 09:00 IV Flush (NS 3 ml) 3 ml PER PROTOCOL IV ; Start 03/31/18 at 18:30 Ondansetron HCl (Zofran Inj) 4 mg Q6H PRN IV NAUSEA AND/OR VOMITING; Start 03/31/18 at 18:30 Acetaminophen (Tylenol Tab) 650 mg Q6H PRN PO PAIN LEVEL 1-3 OR FEVER Last administered on 04/22/18 09:18; Admin Dose 650 MG; Start 03/31/18 at 18:30 Acetaminophen (Tylenol Supp) 650 mg Q6H PRN [place] PAIN LEVEL 1-3 OR FEVER Last administered on 04/22/18 00:12; Admin Dose 650 MG; Start 03/31/18 at 18:30 Docusate Sodium (Colace) 100 mg Q12H PRN PO CONSTIPATION; Start 03/31/18 at 18: 30 Alteplase, Recombinant (Cathflo (Activase)) 2 mg MAY REPEAT X1 PRN CATHETER IF CATHETER REMAINS OCCULUDED Last administered on 04/03/18 04:24; Admin Dose 2 MG; Start 04/01/18 at 21:00 Collagenase (Santyl) 1 applic DAILY TOP Last administered on 04/22/18 09:07; Admin Dose 1 APPLIC; Start 04/03/18 at 12:00 Morphine Sulfate (morphine) 6 mg Q4H PRN GTB SEVERE PAIN LEVEL 6-10 Last administered on 04/17/18 23:47; Admin Dose 6 MG; Start 04/04/18 at 23:00 Lorazepam (Ativan) 2 mg Q4H PRN IV restless, agitation, anxiety Last administered on 04/22/18at 00:47; Admin Dose 2 MG; Start 04/05/18 at 10:00 Polyethylene Glycol (Miralax) 17 gm DAILY GTB Last administered on 04/22/18at 09:07; Admin Dose 17 GM; Start 04/08/18 at 09:00 Carvedilol (Coreg) 50 mg BID GTB Last administered on 04/22/18at 09:07; Admin Dose 50 MG; Start 04/08/18 at 21:00 Aspirin (Halfprin) 81 mg DAILY PO Last administered on 04/22/18 09:07; Admin Dose 81 MG; Start 04/15/18 at 12:30 Lansoprazole (Prevacid) 30 mg HS PO Last administered on 04/21/18at 20:44; Admin Dose 30 MG; Start 04/20/18 at 21:00 Fluconazole (Diflucan) 100 mg DAILY PO Last administered on 04/22/18at 09:07; Admin Dose 100 MG; Start 04/21/18 at 14:00 Amikacin Sulfate (Amikacin Iv Per Pharmacy) AMIKACIN PER PHARMACY NOTE XX ; Start 04/22/18 at 11:30 Amikacin Sulfate 850 mg/Sodium Chloride 253.4 ml @ 250 mls/hr Q24H IVPB ; Start 04/22/18 at 13:00 Miscellaneous Information (*Rx Drug Level Order Reminder*) AMIKACIN RANDOM LEVEL ON... ONCE ONCE XX ; Start 04/22/18 at 23:00; Stop 04/22/18 at 23:01 LETITIA BLAKELY Apr 22, 2018 12:17
[2018-04-22] MEDS: AMIKACIN IVPB SCH (14:12)
[2018-04-22] MEDS: SOD CHLORIDE 0.9% IVPB SCH (14:12)
[2018-04-22] MEDS: ALBUTEROL 0.083% (NEB) 2.5 MG/3 ML AMP NEB PRN (14:23)
--- NOTE | 2018-04-22 15:50 | CONS ---
Assessment/Plan Assessment/Plan Hospital Course (Demo Recall) Patient continues to spike fevers, urine culture sent on April 20 growing Breanne albicans and gram-negative rods, blood cultures remain negative Antimicrobials: Amikacin, fluconazole, status post Vanco Merrem Indwelling: Trach PEG Schwartz. Microbiology: Blood cultures remain negative, urine culture pending Chest x-ray done yesterday revealed cardiomegaly and thoracic aortic atheroscle rosis no focal dense pulmonary parenchymal opacification and general appearance of the chest is improved Physical examination: Chronically ill-appearing elderly man who is noncommunicative in no distress. Head atraumatic normocephalic sclera nonicteric neck is supple tracheostomy present chest rise symmetrical breath sounds diminished bases heart: S1-S2. Abdomen soft bowel sounds present. Extre mities without cyanosis. Skin: Patient has multiple pressure sores he has a dry blood on the right lower lip Assessment: 1. Ongoing fevers possibly secondary to urinary tract infection rule out other etiologies 2. Acute pancreatitis, CT of the abdomen revealed no abscess, no pseudocyst 3. S/p Breanne albicans UTI 4. History of cardiomyopathy 5. Chronic respiratory failure 6. S/p gingival bleeding 7. Sacral decub 8. MRSA nares colonization 9. Possible enterocolitis and sinusitis Plan: Clinically unchanged, still febrile on broad-spectrum coverage, antibiotics were changed this morning, will order CT of the abdomen pelvis and chest Consultation Date/Type/Reason Admit Date/Time Mar 31, 2018 at 17:58 Initial Consult Date 04/02/18 Type of Consult id Requesting Provider: TAMARA GRAJEDA MD Date/Time of Note DATE: 04/22/18 TIME: 15:49 Exam/Review of Systems Exam Vitals Vital Signs Date Temp Pulse Resp B/P (MAP) Pulse Ox O2 O2 Flow FiO2 Time Delivery Rate 04/22/18 88 24 98 30 15:25 04/22/18 98.4 106/72 Mechanical 11:41 (83) Ventilator Intake and Output 04/21/18 04/21/18 04/22/18 1515:00 23:00 07:00 IntakeIntake Total 50 ml 300 ml 900 ml OutputOutput Total 550 ml 800 ml BalanceBalance 50 ml -250 ml 100 ml Results Result Diagram: 04/22/18 0607 04/22/18 0607 Results 24hrs Laboratory Tests Test 04/22/18 06:07 White Blood Count 6.2 Red Blood Count 2.84 L Hemoglobin 7.9 L Hematocrit 24.9 L Mean Corpuscular Volume 87.7 Mean Corpuscular Hemoglobin 27.8 L Mean Corpuscular Hemoglobin Concent 31.7 L Red Cell Distribution Width 15.2 H Platelet Count 172 Mean Platelet Volume 10.6 H Immature Granulocytes % 0.600 H Neutrophils % 76.4 Lymphocytes % 6.1 L Monocytes % 11.8 H Eosinophils % 4.5 Basophils % 0.6 Nucleated Red Blood Cells % 0.0 Immature Granulocytes # 0.040 H Neutrophils # 4.7 Lymphocytes # 0.4 L Monocytes # 0.7 Eosinophils # 0.3 Basophils # 0.0 Nucleated Red Blood Cells # 0.0 Sodium Level 144 Potassium Level 4.0 Chloride Level 107 Carbon Dioxide Level 25 Anion Gap 12 Blood Urea Nitrogen 28 H Creatinine 0.79 Est Glomerular Filtrat Rate mL/min > 60 Glucose Level 89 Calcium Level 8.4 Medications Medication Current Medications Acetaminophen (Tylenol Tab) 1,000 mg Q4 PRN PO MODERATE PAIN LEVEL 4-6 Last administered on 04/07/18at 12:14; Admin Dose 1,000 MG; Start 03/31/18 at 18:00 Acetaminophen (Tylenol Tab) 650 mg Q4 PRN GTB MILD PAIN LEVEL 1-3 Last administered on 04/20/18 09:20; Admin Dose 650 MG; Start 03/31/18 at 18:00 Albuterol (Proventil 0.083% (Neb)) 2.5 mg Q3H PRN NEB WHEEZING AND SOB Last administered on 04/22/18 14:23; Admin Dose 2.5 MG; Start 03/31/18 at 18:00 Albuterol (Proventil 0.083% (Neb)) 2.5 mg Q6 PRN NEB WHEEZING AND SOB; Start 03/31/18 at 18:00 Ascorbic Acid (Vitamin C) 500 mg DAILY GTB Last administered on 04/22/18at 09:07; Admin Dose 500 MG; Start 04/01/18 at 09:00 Bisacodyl (Dulcolax Supp) 10 mg DAILY PRN [place] CONSTIPATION; Start 03/31/18 at 18:00 Multivit/Ca Carb/ B Cmplx/FA/Prenat (Sofy-Sandoval) 1 tab DAILY GTB Last administered on 04/22/18 09:07; Admin Dose 1 TAB; Start 04/01/18 at 09:00 Zinc Sulfate (Zinc Sulfate) 220 mg DAILY GTB Last administered on 04/22/18 09:07; Admin Dose 220 MG; Start 04/01/18 at 09:00 IV Flush (NS 3 ml) 3 ml PER PROTOCOL IV ; Start 03/31/18 at 18:30 Ondansetron HCl (Zofran Inj) 4 mg Q6H PRN IV NAUSEA AND/OR VOMITING; Start 03/31/18 at 18:30 Acetaminophen (Tylenol Tab) 650 mg Q6H PRN PO PAIN LEVEL 1-3 OR FEVER Last administered on 04/22/18 09:18; Admin Dose 650 MG; Start 03/31/18 at 18:30 Acetaminophen (Tylenol Supp) 650 mg Q6H PRN [place] PAIN LEVEL 1-3 OR FEVER Last administered on 04/22/18 00:12; Admin Dose 650 MG; Start 03/31/18 at 18:30 Docusate Sodium (Colace) 100 mg Q12H PRN PO CONSTIPATION; Start 03/31/18 at 18:30 Alteplase, Recombinant (Cathflo (Activase)) 2 mg MAY REPEAT X1 PRN CATHETER IF CATHETER REMAINS OCCULUDED Last administered on 04/03/18 04:24; Admin Dose 2 MG; Start 04/01/18 at 21:00 Collagenase (Santyl) 1 applic DAILY TOP Last administered on 04/22/18 09:07; Admin Dose 1 APPLIC; Start 04/03/18 at 12:00 Morphine Sulfate (morphine) 6 mg Q4H PRN GTB SEVERE PAIN LEVEL 6-10 Last administered on 04/17/18 23:47; Admin Dose 6 MG; Start 04/04/18 at 23:00 Polyethylene Glycol (Miralax) 17 gm DAILY GTB Last administered on 04/22/18 09:07; Admin Dose 17 GM; Start 04/08/18 at 09:00 Carvedilol (Coreg) 50 mg BID GTB Last administered on 04/22/18 09:07; Admin Dose 50 MG; Start 04/08/18 at 21:00 Aspirin (Halfprin) 81 mg DAILY PO Last administered on 04/22/18 09:07; Admin Dose 81 MG; Start 04/15/18 at 12:30 Lansoprazole (Prevacid) 30 mg HS PO Last administered on 04/21/18at 20:44; Admin Dose 30 MG; Start 04/20/18 at 21:00 Fluconazole (Diflucan) 100 mg DAILY PO Last administered on 04/22/18at 09:07; Admin Dose 100 MG; Start 04/21/18 at 14:00 Amikacin Sulfate (Amikacin Iv Per Pharmacy) AMIKACIN PER PHARMACY NOTE XX ; Start 04/22/18 at 11:30 Amikacin Sulfate 850 mg/Sodium Chloride 253.4 ml @ 250 mls/hr Q24H IVPB Last administered on 04/22/18at 14:12; Admin Dose 250 MLS/HR; Start 04/22/18 at 13:00 Miscellaneous Information (*Rx Drug Level Order Reminder*) AMIKACIN RANDOM LEVEL ON... ONCE ONCE XX ; Start 04/22/18 at 23:00; Stop 04/22/18 at 23:01 Lorazepam (Ativan) 1 mg Q4H PRN IV restless, agitation, anxiety Last administered on 04/22/18at 13:07; Admin Dose 1 MG; Start 04/22/18 at 14:00 RENÉ GARCIA NP Apr 22, 2018 15:50
[2018-04-22] MEDS ORDERED: IOHEXOL 300MG/ML 150 ML BTL ONE (16:25)
--- NOTE | 2018-04-22 17:31 | CONS ---
DATE OF ADMISSION: 03/31/2018 DATE OF CONSULTATION: TYPE OF CONSULTATION: Gastroenterology. HISTORY OF PRESENT ILLNESS: The patient is a 62-year-old male, ventilator-dependent respiratory fail ure, status post PEG, encephalopathy and now developed a fever as per the staff. The patient has per sistent amylase, lipase elevation. Last CAT scan of the abdomen was negative. OBJECTIVE: GENERAL: The patient is encephalopathic, nonverbal. ABDOMEN: Soft, tolerating feeding as per the . No abdominal pain, but it is difficult to evalua te that part. EXTREMITIES: No edema. CENTRAL NERVOUS SYSTEM: Obtunded. LUNGS: The patient is on vent. IMPRESSION: 1. High amylase, lipase. Etiology is unclear. Rule out bile duct stone, rule out pancreatic pathol ogy. MRCP cannot be done. 2. Ongoing fever. 3. Urinary tract infection. 4. Cardiomyopathy. 5. Ventilator-dependent respiratory failure. 6. Gingival bleeding. 7. . PLAN: CAT scan of the abdomen and pelvis has been ordered. We will look at it and after that we rex l decide whether patient needs further workup in the form of ERCP or not. Dictated By: RASHEEDA SOLORZANO/NTS Conf#: [id number] DID#: [id number] CC: GARFIELD MOREAU MD;*EndCC*
[2018-04-22] MEDS: LANSOPRAZOLE 30 MG CAP PO SCH (21:06)
[2018-04-23] VITALS (23 sets, daily range): BP systolic 102–140; BP diastolic 73–89; PULSE 76–99; RESP 16–26
[2018-04-23] MEDS: ASPIRIN (EC) 81 MG TAB PO SCH (09:02)
[2018-04-23] MEDS: POLYETHYLENE GLYCOL 17 GM PACKET GTB SCH (09:02)
[2018-04-23] MEDS: MULTIVIT/CA CARB/B CMPLX/FA TAB GTB SCH (09:02)
[2018-04-23] MEDS: ASCORBIC ACID 500 MG TAB GTB SCH (09:02)
[2018-04-23] MEDS: ACETAMINOPHEN 325 MG TAB GTB PRN (09:02)
[2018-04-23] MEDS: FLUCONAZOLE 100 MG TAB PO SCH (09:02)
[2018-04-23] MEDS: ZINC SULFATE 220 MG CAP GTB SCH (09:02)
[2018-04-23] MEDS: COLLAGENASE 5 GM (UD JAR) TOP SCH (09:03)
[2018-04-23] MEDS: BALSAM PERU/CASTOR OIL 60 GM TUBE TOP SCH ×2 (09:03→21:24)
--- NOTE | 2018-04-23 09:58 | CONS ---
Assessment/Plan Assessment/Plan Assessment/Plan (Daily) Ventilator setting; AC of 16, tidal volume 500, PEEP of 5, 30% FiO2. Assessment and recommendations; 1. Patient admitted with gingival bleeding with stable hematocrit now no further bleeding noted. 2. VDR F and encephalopathy. 3. Failure to be weaned from ventilator. 4. Scant left lower lobe pneumonia. Continue current supportive care. Consider discharge. Consultation Date/Type/Reason Admit Date/Time Mar 31, 2018 at 17:58 Initial Consult Date 04/02/18 Type of Consult Pulmonary/critical care History of presenting illness; Patient is a 62-year-old male who was admitted to the hospital with hypotension from [facility]. Patient has history of advanced encephalopathy and VDR F and was unable to give any history by himself whatsoever. However after being fluid resuscitated patient's hemodynamics improved and patient did not require any pressor support. By the time I saw him in ICU, patient is on ventilator via tracheostomy and is unresponsive. Patient also did not appear to be in any distress. Past medical history; 1. Dilated cardiomyopathy. 2. Chronic encephalopathy. 3. VDR F. 4. G-tube placement. 5. Anemia. 6. History of alcohol abuse. 7. Renal insufficiency. Medications; reviewed. Allergies; none. Social history; patient has been a non-smoker. History of alcohol abuse. Family history, occupational history not available. Review of systems; unable to be obtained. General exam; elderly male, on ventilator via tracheostomy, unresponsive, currently in no distress. Requesting Provider: TAMARA GRAJEDA MD Date/Time of Note DATE: 04/23/18 TIME: 09:56 24 HR Interval Summary Free Text/Dictation Patient's condition is stable. Remains noncommunicative. Has remained hemodynamically stable. General exam; elderly male, on ventilator via tracheostomy, noncommunicative. Currently in no distress. Exam/Review of Systems Exam Vitals Vital Signs Date Temp Pulse Resp B/P (MAP) Pulse Ox O2 O2 Flow FiO2 Time Delivery Rate 04/23/18 99.9 09:02 04/23/18 92 08:40 04/23/18 16 114/83 100 07:55 (93) 04/23/18 30 07:39 04/22/18 Mechanical 11:41 Ventilator Intake and Output 04/22/18 04/22/18 04/23/18 1414:59 22:59 06:59 IntakeIntake Total 1180 ml 1080 ml OutputOutput Total 750 ml 1200 ml BalanceBalance 430 ml -120 ml Exam H EENT exam; supple neck, no JVD. No lymphadenopathy. Midline trachea. No thyromegaly. Patient is edentulous. Tracheostomy in place. Chest exam; clear to auscultation. S1-S2 audible, no murmurs. Regular rhythm. Abdomen exam; soft, G-tube in place. Nondistended. No organomegaly. Bowel sounds audible. Extremity exam; no peripheral edema or clubbing. CONTRACTING SUPPORT SPECIALIST exam; patient remains unresponsive to any commands. Results Result Diagram: 04/23/18 0735 04/22/18 0607 Results 24hrs Laboratory Tests Test 04/23/18 07:35 White Blood Count 6.4 Red Blood Count 2.85 L Hemoglobin 8.0 L Hematocrit 24.9 L Mean Corpuscular Volume 87.4 Mean Corpuscular Hemoglobin 28.1 L Mean Corpuscular Hemoglobin Concent 32.1 Red Cell Distribution Width 15.0 H Platelet Count 184 Mean Platelet Volume 10.9 H Immature Granulocytes % 0.800 H Neutrophils % 70.9 Lymphocytes % 12.9 L Monocytes % 12.6 H Eosinophils % 2.2 Basophils % 0.6 Nucleated Red Blood Cells % 0.0 Immature Granulocytes # 0.050 H Neutrophils # 4.5 Lymphocytes # 0.8 Monocytes # 0.8 Eosinophils # 0.1 Basophils # 0.0 Nucleated Red Blood Cells # 0.0 Medications Medication Current Medications Acetaminophen (Tylenol Tab) 1,000 mg Q4 PRN PO MODERATE PAIN LEVEL 4-6 Last administered on 04/07/18at 12:14; Admin Dose 1,000 MG; Start 03/31/18 at 18:00 Acetaminophen (Tylenol Tab) 650 mg Q4 PRN GTB MILD PAIN LEVEL 1-3 Last administered on 04/23/18at 09:02; Admin Dose 650 MG; Start 03/31/18 at 18:00 Albuterol (Proventil 0.083% (Neb)) 2.5 mg Q3H PRN NEB WHEEZING AND SOB Last administered on 04/22/18at 14:23; Admin Dose 2.5 MG; Start 03/31/18 at 18:00 Albuterol (Proventil 0.083% (Neb)) 2.5 mg Q6 PRN NEB WHEEZING AND SOB; Start 03/31/18 at 18:00 Ascorbic Acid (Vitamin C) 500 mg DAILY GTB Last administered on 04/23/18 09:02; Admin Dose 500 MG; Start 04/01/18 at 09:00 Bisacodyl (Dulcolax Supp) 10 mg DAILY PRN [place] CONSTIPATION; Start 03/31/18 at 18:00 Multivit/Ca Carb/ B Cmplx/FA/Prenat (Sofy-Sandoval) 1 tab DAILY GTB Last administered on 04/23/18 09:02; Admin Dose 1 TAB; Start 04/01/18 at 09:00 Zinc Sulfate (Zinc Sulfate) 220 mg DAILY GTB Last administered on 04/23/18 09:02; Admin Dose 220 MG; Start 04/01/18 at 09:00 IV Flush (NS 3 ml) 3 ml PER PROTOCOL IV ; Start 03/31/18 at 18:30 Ondansetron HCl (Zofran Inj) 4 mg Q6H PRN IV NAUSEA AND/OR VOMITING; Start 03/31/18 at 18:30 Acetaminophen (Tylenol Tab) 650 mg Q6H PRN PO PAIN LEVEL 1-3 OR FEVER Last administered on 04/22/18 09:18; Admin Dose 650 MG; Start 03/31/18 at 18:30 Acetaminophen (Tylenol Supp) 650 mg Q6H PRN [place] PAIN LEVEL 1-3 OR FEVER Last administered on 04/22/18 00:12; Admin Dose 650 MG; Start 03/31/18 at 18:30 Docusate Sodium (Colace) 100 mg Q12H PRN PO CONSTIPATION; Start 03/31/18 at 18:30 Alteplase, Recombinant (Cathflo (Activase)) 2 mg MAY REPEAT X1 PRN CATHETER IF CATHETER REMAINS OCCULUDED Last administered on 04/03/18 04:24; Admin Dose 2 MG; Start 04/01/18 at 21:00 Collagenase (Santyl) 1 applic DAILY TOP Last administered on 04/23/18 09:03; Admin Dose 1 APPLIC; Start 04/03/18 at 12:00 Morphine Sulfate (morphine) 6 mg Q4H PRN GTB SEVERE PAIN LEVEL 6-10 Last administered on 04/17/18at 23:47; Admin Dose 6 MG; Start 04/04/18 at 23:00 Polyethylene Glycol (Miralax) 17 gm DAILY GTB Last administered on 04/23/18 09:02; Admin Dose 17 GM; Start 04/08/18 at 09:00 Carvedilol (Coreg) 50 mg BID GTB Last administered on 04/23/18 09:02; Admin Dose 50 MG; Start 04/08/18 at 21:00 Aspirin (Halfprin) 81 mg DAILY PO Last administered on 04/23/18 09:02; Admin Dose 81 MG; Start 04/15/18 at 12:30 Lansoprazole (Prevacid) 30 mg HS PO Last administered on 04/22/18 21:06; Admin Dose 30 MG; Start 04/20/18 at 21:00 Fluconazole (Diflucan) 100 mg DAILY PO Last administered on 04/23/18 09:02; Admin Dose 100 MG; Start 04/21/18 at 14:00 Amikacin Sulfate (Amikacin Iv Per Pharmacy) AMIKACIN PER PHARMACY NOTE XX ; Start 04/22/18 at 11:30 Amikacin Sulfate 850 mg/Sodium Chloride 253.4 ml @ 250 mls/hr Q24H IVPB Last administered on 04/22/18 14:12; Admin Dose 250 MLS/HR; Start 04/22/18 at 13:00 Lorazepam (Ativan) 1 mg Q4H PRN IV restless, agitation, anxiety Last administered on 04/22/18at 13:07; Admin Dose 1 MG; Start 04/22/18 at 14:00 Miscellaneous Information (*Rx Drug Level Order Reminder*) AMIKACIN TROUGH ON 24/04... ONCE ONCE XX ; Start 04/24/18 at 12:00; Stop 04/24/18 at 12:01 DION MAGALLANES Apr 23, 2018 09:58
--- NOTE | 2018-04-23 10:01 | CONS ---
Assessment/Plan Assessment/Plan Hospital Course (Demo Recall) No events, low grade temps Antimicrobials: Amikacin, fluconazole status post Vanco Merrem Indwelling: Trach PEG Schwartz. Microbiology: Blood cultures remain negative, urine culture + GNR/C alb Physical examination: Chronically ill-appearing elderly man who is noncommunicative in no distress. Head atraumatic normocephalic sclera nonicteric neck is supple tracheostomy present chest rise symmetrical breath sounds diminished bases heart: S1-S2. Abdomen soft bowel sounds present. Ex tremities without cyanosis. Skin: Patient has multiple pressure sores he has a dry blood on the right lower lip Assessment: 1. Ongoing fevers secondary to urinary tract infection and HCAP 2. VDRF 3. Dysphagia 4. Chronic encephalopathy 5. History of cardiomyopathy 6. Sacral decub 7. MRSA nares colonization Plan: Clinically stable, CT abd/chest noted, continue abx, f/u final urine cx, pulmonary toilet Consultation Date/Type/Reason Admit Date/Time Mar 31, 2018 at 17:58 Initial Consult Date 04/02/18 Type of Consult id Requesting Provider: TAMARA GRAJEDA MD Date/Time of Note DATE: 04/23/18 TIME: 09:58 Exam/Review of Systems Exam Vitals Vital Signs Date Temp Pulse Resp B/P (MAP) Pulse Ox O2 O2 Flow FiO2 Time Delivery Rate 04/23/18 99.9 09:02 04/23/18 92 08:40 04/23/18 16 114/83 100 07:55 (93) 04/23/18 30 07:39 04/22/18 Mechanical 11:41 Ventilator Intake and Output 04/22/18 04/22/18 04/23/18 1515:00 23:00 07:00 IntakeIntake Total 1180 ml 1080 ml OutputOutput Total 750 ml 1200 ml BalanceBalance 430 ml -120 ml Results Result Diagram: 04/23/18 0735 04/22/18 0607 Results 24hrs Laboratory Tests Test 04/23/18 07:35 White Blood Count 6.4 Red Blood Count 2.85 L Hemoglobin 8.0 L Hematocrit 24.9 L Mean Corpuscular Volume 87.4 Mean Corpuscular Hemoglobin 28.1 L Mean Corpuscular Hemoglobin Concent 32.1 Red Cell Distribution Width 15.0 H Platelet Count 184 Mean Platelet Volume 10.9 H Immature Granulocytes % 0.800 H Neutrophils % 70.9 Lymphocytes % 12.9 L Monocytes % 12.6 H Eosinophils % 2.2 Basophils % 0.6 Nucleated Red Blood Cells % 0.0 Immature Granulocytes # 0.050 H Neutrophils # 4.5 Lymphocytes # 0.8 Monocytes # 0.8 Eosinophils # 0.1 Basophils # 0.0 Nucleated Red Blood Cells # 0.0 Medications Medication Current Medications Acetaminophen (Tylenol Tab) 1,000 mg Q4 PRN PO MODERATE PAIN LEVEL 4-6 Last administered on 04/07/18 12:14; Admin Dose 1,000 MG; Start 03/31/18 at 18:00 Acetaminophen (Tylenol Tab) 650 mg Q4 PRN GTB MILD PAIN LEVEL 1-3 Last administered on 04/23/18 09:02; Admin Dose 650 MG; Start 03/31/18 at 18:00 Albuterol (Proventil 0.083% (Neb)) 2.5 mg Q3H PRN NEB WHEEZING AND SOB Last administered on 04/22/18 14:23; Admin Dose 2.5 MG; Start 03/31/18 at 18:00 Albuterol (Proventil 0.083% (Neb)) 2.5 mg Q6 PRN NEB WHEEZING AND SOB; Start 03/31/18 at 18:00 Ascorbic Acid (Vitamin C) 500 mg DAILY GTB Last administered on 04/23/18 09:02; Admin Dose 500 MG; Start 04/01/18 at 09:00 Bisacodyl (Dulcolax Supp) 10 mg DAILY PRN [place] CONSTIPATION; Start 03/31/18 at 18:00 Multivit/Ca Carb/ B Cmplx/FA/Prenat (Sofy-Sandoval) 1 tab DAILY GTB Last administered on 04/23/18 09:02; Admin Dose 1 TAB; Start 04/01/18 at 09:00 Zinc Sulfate (Zinc Sulfate) 220 mg DAILY GTB Last administered on 04/23/18 09:02; Admin Dose 220 MG; Start 04/01/18 at 09:00 IV Flush (NS 3 ml) 3 ml PER PROTOCOL IV ; Start 03/31/18 at 18:30 Ondansetron HCl (Zofran Inj) 4 mg Q6H PRN IV NAUSEA AND/OR VOMITING; Start 03/31/18 at 18:30 Acetaminophen (Tylenol Tab) 650 mg Q6H PRN PO PAIN LEVEL 1-3 OR FEVER Last administered on 04/22/18 09:18; Admin Dose 650 MG; Start 03/31/18 at 18:30 Acetaminophen (Tylenol Supp) 650 mg Q6H PRN [place] PAIN LEVEL 1-3 OR FEVER Last administered on 04/22/18 00:12; Admin Dose 650 MG; Start 03/31/18 at 18:30 Docusate Sodium (Colace) 100 mg Q12H PRN PO CONSTIPATION; Start 03/31/18 at 18:30 Alteplase, Recombinant (Cathflo (Activase)) 2 mg MAY REPEAT X1 PRN CATHETER IF CATHETER REMAINS OCCULUDED Last administered on 04/03/18 04:24; Admin Dose 2 MG; Start 04/01/18 at 21:00 Collagenase (Santyl) 1 applic DAILY TOP Last administered on 04/23/18 09:03; Admin Dose 1 APPLIC; Start 04/03/18 at 12:00 Morphine Sulfate (morphine) 6 mg Q4H PRN GTB SEVERE PAIN LEVEL 6-10 Last administered on 04/17/18 23:47; Admin Dose 6 MG; Start 04/04/18 at 23:00 Polyethylene Glycol (Miralax) 17 gm DAILY GTB Last administered on 04/23/18 09:02; Admin Dose 17 GM; Start 04/08/18 at 09:00 Carvedilol (Coreg) 50 mg BID GTB Last administered on 04/23/18 09:02; Admin Dose 50 MG; Start 04/08/18 at 21:00 Aspirin (Halfprin) 81 mg DAILY PO Last administered on 04/23/18 09:02; Admin Dose 81 MG; Start 04/15/18 at 12:30 Lansoprazole (Prevacid) 30 mg HS PO Last administered on 04/22/18 21:06; Admin Dose 30 MG; Start 04/20/18 at 21:00 Fluconazole (Diflucan) 100 mg DAILY PO Last administered on 04/23/18 09:02; A dmin Dose 100 MG; Start 04/21/18 at 14:00 Amikacin Sulfate (Amikacin Iv Per Pharmacy) AMIKACIN PER PHARMACY NOTE XX ; Start 04/22/18 at 11:30 Amikacin Sulfate 850 mg/Sodium Chloride 253.4 ml @ 250 mls/hr Q24H IVPB Last administered on 04/22/18at 14:12; Admin Dose 250 MLS/HR; Start 04/22/18 at 13:00 Lorazepam (Ativan) 1 mg Q4H PRN IV restless, agitation, anxiety Last administered on 04/22/18at 13:07; Admin Dose 1 MG; Start 04/22/18 at 14:00 Miscellaneous Information (*Rx Drug Level Order Reminder*) AMIKACIN TROUGH ON ... ONCE ONCE XX ; Start 04/24/18 at 12:00; Stop 04/24/18 at 12:01 RENÉ GARCIA NP Apr 23, 2018 10:01
[2018-04-23] MEDS: AMIKACIN IVPB SCH (12:39)
[2018-04-23] MEDS: SOD CHLORIDE 0.9% IVPB SCH (12:39)
--- NOTE | 2018-04-23 13:29 | CONS ---
Assessment/Plan Assessment/Plan Assessment/Plan (Daily) .High amylase, lipase. Etiology is unclear. Rule out bile duct stone, rule out pancreatic pathology. MRCP cannot be done. 2. Ongoing fever low grade( patchy infiltrate on cxr, urine: pseudomonas, lisa 3. Urinary tract infection. 4. Cardiomyopathy. 5. Ventilator-dependent respiratory failure. 6. Gingival bleeding. incative todays exam repeat ca19-9, lipase, MRCP if becomes alert/off ventilator Consultation Date/Type/Reason Admit Date/Time Mar 31, 2018 at 17:58 Initial Consult Date 04/02/18 Type of Consult consult follow up Requesting Provider: TAMARA GRAJEDA MD Date/Time of Note DATE: 04/23/18 TIME: 13:21 24 HR Interval Summary Free Text/Dictation pt with encepahalopathy, now ventilatory dependenat seen intially by gi for bleed, determined to be gingival, hyperamylasemia, etiology unknown. Recent CT negative CA 19-9 aprox 50 Exam/Review of Systems Exam Vitals Vital Signs Date Temp Pulse Resp B/P (MAP) Pulse Ox O2 O2 Flow FiO2 Time Delivery Rate 04/23/18 86 12:33 04/23/18 23 100 30 11:50 04/23/18 99.0 11:14 04/23/18 102/73 10:53 (83) 04/22/18 Mechanical 11:41 Ventilator Intake and Output 04/22/18 04/22/18 04/23/18 1515:00 23:00 07:00 IntakeIntake Total 1180 ml 1080 ml OutputOutput Total 750 ml 1200 ml BalanceBalance 430 ml -120 ml Exam not responsive to commands tracheostomy abd: gt tube site: clear and dry abd soft good BS Results Result Diagram: 04/23/18 0735 04/22/18 0607 Results 24hrs Laboratory Tests Test 04/23/18 07:35 04/23/18 12:27 White Blood Count 6.4 Red Blood Count 2.85 L Hemoglobin 8.0 L Hematocrit 24.9 L Mean Corpuscular Volume 87.4 Mean Corpuscular Hemoglobin 28.1 L Mean Corpuscular Hemoglobin Concent 32.1 Red Cell Distribution Width 15.0 H Platelet Count 184 Mean Platelet Volume 10.9 H Immature Granulocytes % 0.800 H Neutrophils % 70.9 Lymphocytes % 12.9 L Monocytes % 12.6 H Eosinophils % 2.2 Basophils % 0.6 Nucleated Red Blood Cells % 0.0 Immature Granulocytes # 0.050 H Neutrophils # 4.5 Lymphocytes # 0.8 Monocytes # 0.8 Eosinophils # 0.1 Basophils # 0.0 Nucleated Red Blood Cells # 0.0 Lab Scanned Report REFERENCE LAB Medications Medication Current Medications Acetaminophen (Tylenol Tab) 1,000 mg Q4 PRN PO MODERATE PAIN LEVEL 4-6 Last administered on 04/07/18 12:14; Admin Dose 1,000 MG; Start 03/31/18 at 18:00 Acetaminophen (Tylenol Tab) 650 mg Q4 PRN GTB MILD PAIN LEVEL 1-3 Last administered on 04/23/18 09:02; Admin Dose 650 MG; Start 03/31/18 at 18:00 Albuterol (Proventil 0.083% (Neb)) 2.5 mg Q3H PRN NEB WHEEZING AND SOB Last administered on 04/22/18 14:23; Admin Dose 2.5 MG; Start 03/31/18 at 18:00 Albuterol (Proventil 0.083% (Neb)) 2.5 mg Q6 PRN NEB WHEEZING AND SOB; Start 03/31/18 at 18:00 Ascorbic Acid (Vitamin C) 500 mg DAILY GTB Last administered on 04/23/18 09:02; Admin Dose 500 MG; Start 04/01/18 at 09:00 Bisacodyl (Dulcolax Supp) 10 mg DAILY PRN [place] CONSTIPATION; Start 03/31/18 at 18:00 Multivit/Ca Carb/ B Cmplx/FA/Prenat (Sofy-Sandoval) 1 tab DAILY GTB Last administer ed on 04/23/18 09:02; Admin Dose 1 TAB; Start 04/01/18 at 09:00 Zinc Sulfate (Zinc Sulfate) 220 mg DAILY GTB Last administered on 04/23/18 09:02; Admin Dose 220 MG; Start 04/01/18 at 09:00 IV Flush (NS 3 ml) 3 ml PER PROTOCOL IV ; Start 03/31/18 at 18:30 Ondansetron HCl (Zofran Inj) 4 mg Q6H PRN IV NAUSEA AND/OR VOMITING; Start 03/31/18 at 18:30 Acetaminophen (Tylenol Tab) 650 mg Q6H PRN PO PAIN LEVEL 1-3 OR FEVER Last administered on 04/22/18 09:18; Admin Dose 650 MG; Start 03/31/18 at 18:30 Acetaminophen (Tylenol Supp) 650 mg Q6H PRN [place] PAIN LEVEL 1-3 OR FEVER Last administered on 04/22/18 00:12; Admin Dose 650 MG; Start 03/31/18 at 18:30 Docusate Sodium (Colace) 100 mg Q12H PRN PO CONSTIPATION; Start 03/31/18 at 18:30 Alteplase, Recombinant (Cathflo (Activase)) 2 mg MAY REPEAT X1 PRN CATHETER IF CATHETER REMAINS OCCULUDED Last administered on 04/03/18 04:24; Admin Dose 2 MG; Start 04/01/18 at 21:00 Collagenase (Santyl) 1 applic DAILY TOP Last administered on 04/23/18 09:03; Admin Dose 1 APPLIC; Start 04/03/18 at 12:00 Morphine Sulfate (morphine) 6 mg Q4H PRN GTB SEVERE PAIN LEVEL 6-10 Last administered on 04/17/18 23:47; Admin Dose 6 MG; Start 04/04/18 at 23:00 Polyethylene Glycol (Miralax) 17 gm DAILY GTB Last administered on 04/23/18 09:02; Admin Dose 17 GM; Start 04/08/18 at 09:00 Carvedilol (Coreg) 50 mg BID GTB Last administered on 04/23/18 09:02; Admin Dose 50 MG; Start 04/08/18 at 21:00 Aspirin (Halfprin) 81 mg DAILY PO Last administered on 04/23/18 09:02; Admin Dose 81 MG; Start 04/15/18 at 12:30 Lansoprazole (Prevacid) 30 mg HS PO Last administered on 04/22/18 21:06; Admin Dose 30 MG; Start 04/20/18 at 21:00 Fluconazole (Diflucan) 100 mg DAILY PO Last administered on 04/23/18 09:02; Admin Dose 100 MG; Start 04/21/18 at 14:00 Amikacin Sulfate (Amikacin Iv Per Pharmacy) AMIKACIN PER PHARMACY NOTE XX ; Start 04/22/18 at 11:30 Amikacin Sulfate 850 mg/Sodium Chloride 253.4 ml @ 250 mls/hr Q24H IVPB Last administered on 04/23/18at 12:39; Admin Dose 250 MLS/HR; Start 04/22/18 at 13:00 Lorazepam (Ativan) 1 mg Q4H PRN IV restless, agitation, anxiety Last administered on 04/22/18at 13:07; Admin Dose 1 MG; Start 04/22/18 at 14:00 Miscellaneous Information (*Rx Drug Level Order Reminder*) AMIKACIN TROUGH ON ... ONCE ONCE XX ; Start 04/24/18 at 12:00; Stop 04/24/18 at 12:01 KASSANDRA OROZCO MD Apr 23, 2018 13:29
[2018-04-23] MEDS: LORAZEPAM 2 MG INJ IV PRN (13:51)
--- NOTE | 2018-04-23 17:28 | PN ---
Date/Time of Note Date/Time of Note DATE: 04/23/18 TIME: 17:25 Assessment/Plan VTE Prophylaxis Risk score (from Ns)>0 risk: 7 SCD applied (from [facility]): Yes Pharmacological prophylaxis: NA/contraindicated Pharm contraindication: low risk/ambulating Lines/Catheters IV Catheter Type (from [facility]): Peripheral IV Urinary Cath still in place: Yes Reason Cath still needed: urinary retention Assessment/Plan Hospital Course 62 y/o with # Oral gingival bleeding likely due to dentures, seen by ENT s/p endoscopy # Sepsis with Fevers with hx Pneumonia +UTI and ? Pancreatitis +multiple wounds, ucx+ lisa, wound cx+ MRSA/ pseudomonas, +resp culture +pseudomonas # Blood loss anemia due to oral gingival bleeding # VDRF # CKD with worsening renal failure>resolved # Metabolic acidosis #DILATED CARDIOMYOPATHY # HX ALCOHOL ABUSE # Multiple wounds > decub # Pancreatitis with elevated Lipase # Enterocoltiis on CT # AMS due to Metabolic encephalopathy with . Possible subacute infarct in the left cerebellar hemisphere and cerebellar peduncle> much improved #Ongoing fevers likely secondary to UTI/hcap Plan -On amikacin/fluconazole - no blood thinners due to anemia/bleeding from the trach - ativan prn - GI prophylaxsis - monitor oral bleeding - PT/OT/Speech Result Diagram: 04/23/18 0735 04/22/18 0607 Results 24hrs Laboratory Tests Test 04/23/18 07:35 04/23/18 12:27 04/23/18 13:57 White Blood Count 6.4 Red Blood Count 2.85 L Hemoglobin 8.0 L Hematocrit 24.9 L Mean Corpuscular Volume 87.4 Mean Corpuscular Hemoglobin 28.1 L Mean Corpuscular 32.1 Hemoglobin Concent Red Cell Distribution Width 15.0 H Platelet Count 184 Mean Platelet Volume 10.9 H Immature Granulocytes % 0.800 H Neutrophils % 70.9 Lymphocytes % 12.9 L Monocytes % 12.6 H Eosinophils % 2.2 Basophils % 0.6 Nucleated Red Blood Cells % 0.0 Immature Granulocytes # 0.050 H Neutrophils # 4.5 Lymphocytes # 0.8 Monocytes # 0.8 Eosinophils # 0.1 Basophils # 0.0 Nucleated Red Blood Cells # 0.0 Lab Scanned Report REFERENCE LAB Total Bilirubin 0.0 L Direct Bilirubin 0.00 Indirect Bilirubin 0.0 Aspartate Amino Transf (AST/SGOT) 82 H Alanine 23 Aminotransferase (ALT/SGPT) Alkaline Phosphatase 86 Total Protein 6.4 Albumin 2.7 L Lipase 3637 H CA 19-9 Antigen 51.5 H Subjective 24 Hr Interval Summary Free Text/Dictation Low-grade fevers Culture positive for MDR O Pseudomonas Exam/Review of Systems Exam Vitals Vital Signs Date Temp Pulse Resp B/P (MAP) Pulse Ox O2 O2 Flow FiO2 Time Delivery Rate 04/23/18 99 16:30 04/23/18 97.9 16 120/84 100 15:08 (96) 04/23/18 30 13:15 04/22/18 Mechanical 11:41 Ventilator Intake and Output 04/22/18 04/22/18 04/23/18 1414:59 22:59 06:59 IntakeIntake Total 1180 ml 1080 ml OutputOutput Total 750 ml 1200 ml BalanceBalance 430 ml -120 ml Exam agitated Head: normocephalic Eyes: nl conjunctiva ENMT: other (tracheostomy) Neck: supple Respiratory: diminished breath sounds Cardiovascular: regular rate and rhythm Gastrointestinal: other (G tube) Results Results 24hrs Laboratory Tests Test 04/23/18 07:35 04/23/18 12:27 04/23/18 13:57 White Blood Count 6.4 Red Blood Count 2.85 L Hemoglobin 8.0 L Hematocrit 24.9 L Mean Corpuscular Volume 87.4 Mean Corpuscular Hemoglobin 28.1 L Mean Corpuscular 32.1 Hemoglobin Concent Red Cell Distribution Width 15.0 H Platelet Count 184 Mean Platelet Volume 10.9 H Immature Granulocytes % 0.800 H Neutrophils % 70.9 Lymphocytes % 12.9 L Monocytes % 12.6 H Eosinophils % 2.2 Basophils % 0.6 Nucleated Red Blood Cells % 0.0 Immature Granulocytes # 0.050 H Neutrophils # 4.5 Lymphocytes # 0.8 Monocytes # 0.8 Eosinophils # 0.1 Basophils # 0.0 Nucleated Red Blood Cells # 0.0 Lab Scanned Report REFERENCE LAB Total Bilirubin 0.0 L Direct Bilirubin 0.00 Indirect Bilirubin 0.0 Aspartate Amino Transf (AST/SGOT) 82 H Alanine 23 Aminotransferase (ALT/SGPT) Alkaline Phosphatase 86 Total Protein 6.4 Albumin 2.7 L Lipase 3637 H CA 19-9 Antigen 51.5 H Medications Medication Current Medications Acetaminophen (Tylenol Tab) 1,000 mg Q4 PRN PO MODERATE PAIN LEVEL 4-6 Last administered on 04/07/18 12:14; Admin Dose 1,000 MG; Start 03/31/18 at 18:00 Acetaminophen (Tylenol Tab) 650 mg Q4 PRN GTB MILD PAIN LEVEL 1-3 Last administered on 04/23/18 09:02; Admin Dose 650 MG; Start 03/31/18 at 18:00 Albuterol (Proventil 0.083% (Neb)) 2.5 mg Q3H PRN NEB WHEEZING AND SOB Last administered on 04/22/18 14:23; Admin Dose 2.5 MG; Start 03/31/18 at 18:00 Albuterol (Proventil 0.083% (Neb)) 2.5 mg Q6 PRN NEB WHEEZING AND SOB; Start 03/31/18 at 18:00 Ascorbic Acid (Vitamin C) 500 mg DAILY GTB Last administered on 04/23/18 09:02; Admin Dose 500 MG; Start 04/01/18 at 09:00 Bisacodyl (Dulcolax Supp) 10 mg DAILY PRN ME CONSTIPATION; Start 03/31/18 at 18:00 Multivit/Ca Carb/ B Cmplx/FA/Prenat (Sofy-Sandoval) 1 tab DAILY GTB Last administered on 04/23/18 09:02; Admin Dose 1 TAB; Start 04/01/18 at 09:00 Zinc Sulfate (Zinc Sulfate) 220 mg DAILY GTB Last administered on 04/23/18 09:02; Admin Dose 220 MG; Start 04/01/18 at 09:00 IV Flush (NS 3 ml) 3 ml PER PROTOCOL IV ; Start 03/31/18 at 18:30 Ondansetron HCl (Zofran Inj) 4 mg Q6H PRN IV NAUSEA AND/OR VOMITING; Start 03/31/18 at 18:30 Acetaminophen (Tylenol Tab) 650 mg Q6H PRN PO PAIN LEVEL 1-3 OR FEVER Last adm inistered on 04/22/18 09:18; Admin Dose 650 MG; Start 03/31/18 at 18:30 Acetaminophen (Tylenol Supp) 650 mg Q6H PRN ME PAIN LEVEL 1-3 OR FEVER Last administered on 04/22/18 00:12; Admin Dose 650 MG; Start 03/31/18 at 18:30 Docusate Sodium (Colace) 100 mg Q12H PRN PO CONSTIPATION; Start 03/31/18 at 18:30 Alteplase, Recombinant (Cathflo (Activase)) 2 mg MAY REPEAT X1 PRN CATHETER IF CATHETER REMAINS OCCULUDED Last administered on 04/03/18 04:24; Admin Dose 2 MG; Start 04/01/18 at 21:00 Collagenase (Santyl) 1 applic DAILY TOP Last administered on 04/23/18 09:03; Admin Dose 1 APPLIC; Start 04/03/18 at 12:00 Morphine Sulfate (morphine) 6 mg Q4H PRN GTB SEVERE PAIN LEVEL 6-10 Last administered on 04/17/18 23:47; Admin Dose 6 MG; Start 04/04/18 at 23:00 Polyethylene Glycol (Miralax) 17 gm DAILY GTB Last administered on 04/23/18 09:02; Admin Dose 17 GM; Start 04/08/18 at 09:00 Carvedilol (Coreg) 50 mg BID GTB Last administered on 04/23/18 09:02; Admin Dose 50 MG; Start 04/08/18 at 21:00 Aspirin (Halfprin) 81 mg DAILY PO Last administered on 04/23/18 09:02; Admin Dose 81 MG; Start 04/15/18 at 12:30 Lansoprazole (Prevacid) 30 mg HS PO Last administered on 04/22/18 21:06; Admin Dose 30 MG; Start 04/20/18 at 21:00 Fluconazole (Diflucan) 100 mg DAILY PO Last administered on 04/23/18 09:02; Admin Dose 100 MG; Start 04/21/18 at 14:00 Amikacin Sulfate (Amikacin Iv Per Pharmacy) AMIKACIN PER PHARMACY NOTE XX ; Start 04/22/18 at 11:30 Amikacin Sulfate 850 mg/Sodium Chloride 253.4 ml @ 250 mls/hr Q24H IVPB Last administered on 04/23/18 12:39; Admin Dose 250 MLS/HR; Start 04/22/18 at 13:00 Lorazepam (Ativan) 1 mg Q4H PRN IV restless, agitation, anxiety Last administered on 04/23/18 13:51; Admin Dose 1 MG; Start 04/22/18 at 14:00 Miscellaneous Information (*Rx Drug Level Order Reminder*) AMIKACIN TROUGH ON ... ONCE ONCE XX ; Start 04/24/18 at 12:00; Stop 04/24/18 at 12:01 TAMARA GRAJEDA MD Apr 23, 2018 17:28
[2018-04-23] MEDS: LANSOPRAZOLE 30 MG CAP PO SCH (21:25)
[2018-04-24] VITALS (23 sets, daily range): BP systolic 103–140; BP diastolic 68–92; PULSE 78–98; RESP 16–26
[2018-04-24] MEDS: MULTIVIT/CA CARB/B CMPLX/FA TAB GTB SCH (09:32)
[2018-04-24] MEDS: ZINC SULFATE 220 MG CAP GTB SCH (09:32)
[2018-04-24] MEDS: ASPIRIN (EC) 81 MG TAB PO SCH (09:33)
[2018-04-24] MEDS: FLUCONAZOLE 100 MG TAB PO SCH (09:33)
[2018-04-24] MEDS: POLYETHYLENE GLYCOL 17 GM PACKET GTB SCH (09:33)
[2018-04-24] MEDS: BALSAM PERU/CASTOR OIL 60 GM TUBE TOP SCH ×2 (09:33→21:24)
[2018-04-24] MEDS: ASCORBIC ACID 500 MG TAB GTB SCH (09:33)
[2018-04-24] MEDS: COLLAGENASE 5 GM (UD JAR) TOP SCH (09:34)
--- NOTE | 2018-04-24 12:17 | PN ---
Date/Time of Note Date/Time of Note DATE: 04/24/18 TIME: 12:15 Assessment/Plan VTE Prophylaxis Risk score (from Ns)>0 risk: 7 SCD applied (from Ns): Yes Pharmacological prophylaxis: NA/contraindicated Pharm contraindication: low risk/ambulating Lines/Catheters IV Catheter Type (from Nrs): Saline Lock Urinary Cath still in place: Yes Reason Cath still needed: urinary retention Assessment/Plan Hospital Course 62 y/o with # Oral gingival bleeding likely due to dentures, seen by ENT s/p endoscopy # Sepsis with Fevers with hx Pneumonia +UTI and ? Pancreatitis +multiple wounds, ucx+ lisa, wound cx+ MRSA/ pseudomonas, +resp culture +pseudomonas # Blood loss anemia due to oral gingival bleeding # VDRF # CKD with worsening renal failure>resolved # Metabolic acidosis #DILATED CARDIOMYOPATHY # HX ALCOHOL ABUSE # Multiple wounds > decub # Pancreatitis with elevated Lipase # Enterocoltiis on CT # AMS due to Metabolic encephalopathy with . Possible subacute infarct in the left cerebellar hemisphere and cerebellar peduncle> much improved #Ongoing fevers likely secondary to UTI/hcap now improved Plan -On amikacin/fluconazole -per ID will need amikacin for 7 more days - no blood thinners due to anemia/bleeding from the trach - ativan prn - GI prophylaxsis - monitor oral bleeding ? Any utility of monitoring lipase since patient is asymptomatic - PT/OT/Speech Patient will need subacute who can take amikacin, talk to adult protective caseworker Result Diagram: 04/23/18 0735 04/24/18 0639 Results 24hrs Laboratory Tests Test 04/23/18 12:27 04/23/18 13:57 04/24/18 06:39 Lab Scanned Report REFERENCE LAB Total Bilirubin 0.0 L Direct Bilirubin 0.00 Indirect Bilirubin 0.0 Aspartate Amino Transf (AST/SGOT) 82 H Alanine 23 Aminotransferase (ALT/SGPT) Alkaline Phosphatase 86 Total Protein 6.4 Albumin 2.7 L Lipase 3637 H CA 19-9 Antigen 51.5 H Blood Urea Nitrogen 31 H Creatinine 0.83 Subjective 24 Hr Interval Summary Free Text/Dictation No fevers. no New events. Exam/Review of Systems Exam Vitals Vital Signs Date Temp Pulse Resp B/P (MAP) Pulse Ox O2 O2 Flow FiO2 Time Delivery Rate 04/24/18 99.0 81 16 103/68 100 Mechanical 12:01 (80) Ventilator 1/30/19 30 11:28 Intake and Output 04/23/18 04/23/18 04/24/18 1515:00 23:00 07:00 IntakeIntake Total 880 ml 1130 ml OutputOutput Total 950 ml 900 ml BalanceBalance -70 ml 230 ml Exam Not agitated today Head: normocephalic Eyes: nl conjunctiva ENMT: other (tracheostomy) Neck: supple Respiratory: diminished breath sounds Cardiovascular: regular rate and rhythm Gastrointestinal: other (G tube) Results Results 24hrs Laboratory Tests Test 04/23/18 12:27 04/23/18 13:57 04/24/18 06:39 Lab Scanned Report REFERENCE LAB Total Bilirubin 0.0 L Direct Bilirubin 0.00 Indirect Bilirubin 0.0 Aspartate Amino Transf (AST/SGOT) 82 H Alanine 23 Aminotransferase (ALT/SGPT) Alkaline Phosphatase 86 Total Protein 6.4 Albumin 2.7 L Lipase 3637 H CA 19-9 Antigen 51.5 H Blood Urea Nitrogen 31 H Creatinine 0.83 Medications Medication Current Medications Acetaminophen (Tylenol Tab) 1,000 mg Q4 PRN PO MODERATE PAIN LEVEL 4-6 Last administered on 04/07/18at 12:14; Admin Dose 1,000 MG; Start 03/31/18 at 18:00 Acetaminophen (Tylenol Tab) 650 mg Q4 PRN GTB MILD PAIN LEVEL 1-3 Last administered on 04/23/18at 09:02; Admin Dose 650 MG; Start 03/31/18 at 18:00 Albuterol (Proventil 0.083% (Neb)) 2.5 mg Q3H PRN NEB WHEEZING AND SOB Last administered on 04/22/18at 14:23; Admin Dose 2.5 MG; Start 03/31/18 at 18:00 Albuterol (Proventil 0.083% (Neb)) 2.5 mg Q6 PRN NEB WHEEZING AND SOB; Start 03/31/18 at 18:00 Ascorbic Acid (Vitamin C) 500 mg DAILY GTB Last administered on 04/24/18at 09:33; Admin Dose 500 MG; Start 04/01/18 at 09:00 Bisacodyl (Dulcolax Supp) 10 mg DAILY PRN [place] CONSTIPATION; Start 03/31/18 at 18:00 Multivit/Ca Carb/ B Cmplx/FA/Prenat (Sofy-Sandoval) 1 tab DAILY GTB Last administered on 04/24/18 09:32; Admin Dose 1 TAB; Start 04/01/18 at 09:00 Zinc Sulfate (Zinc Sulfate) 220 mg DAILY GTB Last administered on 04/24/18 09:32; Admin Dose 220 MG; Start 04/01/18 at 09:00 IV Flush (NS 3 ml) 3 ml PER PROTOCOL IV ; Start 03/31/18 at 18:30 Ondansetron HCl (Zofran Inj) 4 mg Q6H PRN IV NAUSEA AND/OR VOMITING; Start 03/31/18 at 18:30 Acetaminophen (Tylenol Tab) 650 mg Q6H PRN PO PAIN LEVEL 1-3 OR FEVER Last administered on 04/22/18 09:18; Admin Dose 650 MG; Start 03/31/18 at 18:30 Acetaminophen (Tylenol Supp) 650 mg Q6H PRN NE PAIN LEVEL 1-3 OR FEVER Last administered on 04/22/18 00:12; Admin Dose 650 MG; Start 03/31/18 at 18:30 Docusate Sodium (Colace) 100 mg Q12H PRN PO CONSTIPATION; Start 03/31/18 at 18:30 Alteplase, Recombinant (Cathflo (Activase)) 2 mg MAY REPEAT X1 PRN CATHETER IF CATHETER REMAINS OCCULUDED Last administered on 04/03/18 04:24; Admin Dose 2 MG; Start 04/01/18 at 21:00 Collagenase (Santyl) 1 applic DAILY TOP Last administered on 04/24/18 09:34; Admin Dose 1 APPLIC; Start 04/03/18 at 12:00 Morphine Sulfate (morphine) 6 mg Q4H PRN GTB SEVERE PAIN LEVEL 6-10 Last administered on 04/17/18 23:47; Admin Dose 6 MG; Start 04/04/18 at 23:00 Polyethylene Glycol (Miralax) 17 gm DAILY GTB Last administered on 04/24/18 09:33; Admin Dose 17 GM; Start 04/08/18 at 09:00 Carvedilol (Coreg) 50 mg BID GTB Last administered on 04/24/18 09:33; Admin Dose 50 MG; Start 04/08/18 at 21:00 Aspirin (Halfprin) 81 mg DAILY PO Last administered on 04/24/18 09:33; Admin Dose 81 MG; Start 04/15/18 at 12:30 Lansoprazole (Prevacid) 30 mg HS PO Last administered on 04/23/18 21:25; Admin Dose 30 MG; Start 04/20/18 at 21:00 Fluconazole (Diflucan) 100 mg DAILY PO Last administered on 04/24/18 09:33; Admin Dose 100 MG; Start 04/21/18 at 14:00 Amikacin Sulfate (Amikacin Iv Per Pharmacy) AMIKACIN PER PHARMACY NOTE XX ; Start 04/22/18 at 11:30 Amikacin Sulfate 850 mg/Sodium Chloride 253.4 ml @ 250 mls/hr Q24H IVPB Last administered on 04/23/18 12:39; Admin Dose 250 MLS/HR; Start 04/22/18 at 13:00 Lorazepam (Ativan) 1 mg Q4H PRN IV restless, agitation, anxiety Last administered on 04/23/18 13:51; Admin Dose 1 MG; Start 04/22/18 at 14:00 TAMARA GRAJEDA MD Apr 24, 2018 12:17
[2018-04-24] MEDS: SOD CHLORIDE 0.9% IVPB SCH (13:11)
[2018-04-24] MEDS: AMIKACIN IVPB SCH (13:11)
--- NOTE | 2018-04-24 15:14 | CONS ---
Assessment/Plan Assessment/Plan Hospital Course (Demo Recall) No events, looks the same Antimicrobials: Amikacin, fluconazole status post Vanco Merrem Indwelling: Trach PEG Schwartz. Microbiology: Blood cultures remain negative, urine culture + Pseudomonas/C alb Physical examination: Chronically ill-appearing elderly man who is noncommunicative in no distress. Head atraumatic normocephalic sclera nonicteric neck is supple tracheostomy present chest rise symmetrical breath sounds diminished bases heart: S1-S2. Abdomen soft bowel sounds present. Extremities without cyanosis. Skin: Patient has multiple pressure sores he has a dry blood on the right lower lip Assessment: 1. Ongoing fevers secondary to urinary tract infection and HCAP 2. VDRF 3. Dysphagia 4. Chronic encephalopathy 5. History of cardiomyopathy 6. Sacral decub 7. MRSA nares colonization 8. Elevated amylase and lipase of unclear etiology Plan: Clinically unchanged, continue abx, pulmonary toilet, GI recommendations noted ==> needs MRCP which cannot be done Consultation Date/Type/Reason Admit Date/Time Mar 31, 2018 at 17:58 Initial Consult Date 04/02/18 Type of Consult id Requesting Provider: TAMARA GRAJEDA MD Date/Time of Note DATE: 04/24/18 TIME: 15:12 Exam/Review of Systems Exam Vitals Vital Signs Date Temp Pulse Resp B/P (MAP) Pulse Ox O2 O2 Flow FiO2 Time Delivery Rate 04/24/18 82 18 100 30 13:39 04/24/18 99.0 103/68 Mechanical 12:01 (80) Ventilator Intake and Output 04/23/18 04/23/18 04/24/18 1515:00 23:00 07:00 IntakeIntake Total 880 ml 1130 ml OutputOutput Total 950 ml 900 ml BalanceBalance -70 ml 230 ml Results Result Diagram: 04/23/18 0735 04/24/18 0639 Results 24hrs Laboratory Tests Test 04/24/18 06:39 Blood Urea Nitrogen 31 H Creatinine 0.83 Medications Medication Current Medications Acetaminophen (Tylenol Tab) 1,000 mg Q4 PRN PO MODERATE PAIN LEVEL 4-6 Last a dministered on 04/07/18at 12:14; Admin Dose 1,000 MG; Start 03/31/18 at 18:00 Acetaminophen (Tylenol Tab) 650 mg Q4 PRN GTB MILD PAIN LEVEL 1-3 Last administered on 04/23/18 09:02; Admin Dose 650 MG; Start 03/31/18 at 18:00 Albuterol (Proventil 0.083% (Neb)) 2.5 mg Q3H PRN NEB WHEEZING AND SOB Last administered on 04/22/18 14:23; Admin Dose 2.5 MG; Start 03/31/18 at 18:00 Albuterol (Proventil 0.083% (Neb)) 2.5 mg Q6 PRN NEB WHEEZING AND SOB; Start 03/31/18 at 18:00 Ascorbic Acid (Vitamin C) 500 mg DAILY GTB Last administered on 04/24/18 09:33; Admin Dose 500 MG; Start 04/01/18 at 09:00 Bisacodyl (Dulcolax Supp) 10 mg DAILY PRN MS CONSTIPATION; Start 03/31/18 at 18:00 Multivit/Ca Carb/ B Cmplx/FA/Prenat (Sofy-Sandoval) 1 tab DAILY GTB Last administered on 04/24/18 09:32; Admin Dose 1 TAB; Start 04/01/18 at 09:00 Zinc Sulfate (Zinc Sulfate) 220 mg DAILY GTB Last administered on 04/24/18 09 :32; Admin Dose 220 MG; Start 04/01/18 at 09:00 IV Flush (NS 3 ml) 3 ml PER PROTOCOL IV ; Start 03/31/18 at 18:30 Ondansetron HCl (Zofran Inj) 4 mg Q6H PRN IV NAUSEA AND/OR VOMITING; Start 03/31/18 at 18:30 Acetaminophen (Tylenol Tab) 650 mg Q6H PRN PO PAIN LEVEL 1-3 OR FEVER Last administered on 04/22/18 09:18; Admin Dose 650 MG; Start 03/31/18 at 18:30 Acetaminophen (Tylenol Supp) 650 mg Q6H PRN MS PAIN LEVEL 1-3 OR FEVER Last administered on 04/22/18 00:12; Admin Dose 650 MG; Start 03/31/18 at 18:30 Docusate Sodium (Colace) 100 mg Q12H PRN PO CONSTIPATION; Start 03/31/18 at 18:30 Alteplase, Recombinant (Cathflo (Activase)) 2 mg MAY REPEAT X1 PRN CATHETER IF CATHETER REMAINS OCCULUDED Last administered on 04/03/18 04:24; Admin Dose 2 MG; Start 04/01/18 at 21:00 Collagenase (Santyl) 1 applic DAILY TOP Last administered on 04/24/18 09:34; Admin Dose 1 APPLIC; Start 04/03/18 at 12:00 Morphine Sulfate (morphine) 6 mg Q4H PRN GTB SEVERE PAIN LEVEL 6-10 Last administered on 04/17/18 23:47; Admin Dose 6 MG; Start 04/04/18 at 23:00 Polyethylene Glycol (Miralax) 17 gm DAILY GTB Last administered on 04/24/18 09:33; Admin Dose 17 GM; Start 04/08/18 at 09:00 Carvedilol (Coreg) 50 mg BID GTB Last administered on 04/24/18 09:33; Admin Dose 50 MG; Start 04/08/18 at 21:00 Aspirin (Halfprin) 81 mg DAILY PO Last administered on 04/24/18 09:33; Admin Dose 81 MG; Start 04/15/18 at 12:30 Lansoprazole (Prevacid) 30 mg HS PO Last administered on 04/23/18 21:25; Admin Dose 30 MG; Start 04/20/18 at 21:00 Fluconazole (Diflucan) 100 mg DAILY PO Last administered on 04/24/18 09:33; Admin Dose 100 MG; Start 04/21/18 at 14:00 Amikacin Sulfate (Amikacin Iv Per Pharmacy) AMIKACIN PER PHARMACY NOTE XX ; Start 04/22/18 at 11:30 Amikacin Sulfate 850 mg/Sodium Chloride 253.4 ml @ 250 mls/hr Q24H IVPB Last administered on 04/24/18 13:11; Admin Dose 250 MLS/HR; Start 04/22/18 at 13:00 Lorazepam (Ativan) 1 mg Q4H PRN IV restless, agitation, anxiety Last administered on 04/23/18 13:51; Admin Dose 1 MG; Start 04/22/18 at 14:00 RENÉ GARCIA NP Apr 24, 2018 15:14
--- NOTE | 2018-04-24 15:43 | CONS ---
DATE OF ADMISSION: 03/31/2018 DATE OF CONSULTATION: TYPE OF CONSULTATION: Gastroenterology. HISTORY OF PRESENT ILLNESS: The patient is a 62-year-old male with ischemic cardiomyopathy, encephal opathy, has a persistent elevated lipase around 3000. The patient is not in a position to give histo ry that he has abdominal pain and CAT scan was negative for any kind of pancreatitis. MRCP could not be done. OBJECTIVE: GENERAL: The patient is on vent. VITAL SIGNS: Stable. ABDOMEN: Benign. He is on G-tube feeding. LUNGS: The patient has diminished air entry. EXTREMITIES: No edema. CENTRAL NERVOUS SYSTEM: Does not communicate. IMPRESSION: 1. High lipase level, mildly elevated CA19-9. Etiology is unclear. Rule out bile duct stone. Rule out intrinsic pancreatic pathology. 2. Multiple wounds. 3. Anemia secondary to gingival bleeding. 4. Dilated cardiomyopathy. 5. History of alcohol abuse. 6. Encephalopathy. PLAN: Continue present care. We will discuss with the family. I educated them regarding the risks of the procedure and if they are in agreement, we will proceed with ERCP. I would review patient's 2 D echo for ejection fraction prior to the procedure. Dictated By: RASHEEDA MEJIA MD PJ/NTS Conf#: [id number] DID#: [id number] CC: GARFIELD MOREAU MD; MACY WAY MD;*End*
[2018-04-24] MEDS: LANSOPRAZOLE 30 MG CAP PO SCH (21:23)
[2018-04-25] VITALS (20 sets, daily range): BP systolic 92–132; BP diastolic 61–95; PULSE 72–94; RESP 13–28
[2018-04-25] MEDS: POLYETHYLENE GLYCOL 17 GM PACKET GTB SCH (09:00)
[2018-04-25] MEDS: ASCORBIC ACID 500 MG TAB GTB SCH (09:24)
[2018-04-25] MEDS: COLLAGENASE 5 GM (UD JAR) TOP SCH (09:24)
[2018-04-25] MEDS: ACETAMINOPHEN 325 MG TAB GTB PRN (09:24)
[2018-04-25] MEDS: BALSAM PERU/CASTOR OIL 60 GM TUBE TOP SCH ×2 (09:24→21:33)
[2018-04-25] MEDS: FLUCONAZOLE 100 MG TAB PO SCH (09:24)
[2018-04-25] MEDS: ASPIRIN (EC) 81 MG TAB PO SCH (09:24)
[2018-04-25] MEDS: ZINC SULFATE 220 MG CAP GTB SCH (09:24)
[2018-04-25] MEDS: MULTIVIT/CA CARB/B CMPLX/FA TAB GTB SCH (09:24)
--- NOTE | 2018-04-25 14:13 | CONS ---
Assessment/Plan Assessment/Plan Hospital Course (Demo Recall) No events, on/off low grade temps, nad Antimicrobials: Amikacin, fluconazole status post Vanco Merrem Indwelling: Trach PEG Schwartz. Microbiology: Blood cultures remain negative, urine culture + Pseudomonas/C alb Physical examination: Chronically ill-appearing elderly man who is nonco mmunicative in no distress. Head atraumatic normocephalic sclera nonicteric neck is supple tracheostomy present chest rise symmetrical breath sounds diminished bases heart: S1-S2. Abdomen soft bowel sounds present. Extremities without cyanosis. Skin: Patient has multiple pressure sores he has a dry blood on the right lower lip Assessment: 1. Sepsis secondary to urinary tract infection and HCAP 2. VDRF 3. Dysphagia 4. Chronic encephalopathy 5. History of cardiomyopathy 6. Sacral decub 7. MRSA nares colonization 8. Elevated amylase and lipase of unclear etiology Plan: Clinically unchanged, continue abx Consultation Date/Type/Reason Admit Date/Time Mar 31, 2018 at 17:58 Initial Consult Date 04/02/18 Type of Consult id Requesting Provider: TAMARA GRAJEDA MD Date/Time of Note DATE: 04/25/18 TIME: 14:12 Exam/Review of Systems Exam Vitals Vital Signs Date Temp Pulse Resp B/P (MAP) Pulse Ox O2 O2 Flow FiO2 Time Delivery Rate 04/25/18 82 12:58 04/25/18 98.2 19 92/61 (71) 98 12:00 04/25/18 30 11:10 04/24/18 Mechanical 16:08 Ventilator Intake and Output 04/24/18 04/24/18 04/25/18 1414:59 22:59 06:59 IntakeIntake Total 250 ml 900 ml 930 ml OutputOutput Total 600 ml 700 ml BalanceBalance 250 ml 300 ml 230 ml Results Result Diagram: 04/25/18 0637 04/25/18 0637 Results 24hrs Laboratory Tests Test 04/25/18 06:37 White Blood Count 6.2 Red Blood Count 2.89 L Hemoglobin 8.0 L Hematocrit 25.3 L Mean Corpuscular Volume 87.5 Mean Corpuscular Hemoglobin 27.7 L Mean Corpuscular Hemoglobin Concent 31.6 L Red Cell Distribution Width 14.8 H Platelet Count 174 Mean Platelet Volume 10.3 Immature Granulocytes % 0.600 H Neutrophils % 75.4 Lymphocytes % 11.2 L Monocytes % 11.5 H Eosinophils % 1.0 Basophils % 0.3 Nucleated Red Blood Cells % 0.0 Immature Granulocytes # 0.040 H Neutrophils # 4.7 Lymphocytes # 0.7 L Monocytes # 0.7 Eosinophils # 0.1 Basophils # 0.0 Nucleated Red Blood Cells # 0.0 Sodium Level 142 Potassium Level 4.3 Chloride Level 109 Carbon Dioxide Level 21 Anion Gap 12 Blood Urea Nitrogen 35 H Creatinine 0.88 Est Glomerular Filtrat Rate mL/min > 60 Glucose Level 97 Calcium Level 8.5 Phosphorus Level 2.8 Magnesium Level 2.1 Medications Medication Current Medications Acetaminophen (Tylenol Tab) 1,000 mg Q4 PRN PO MODERATE PAIN LEVEL 4-6 Last administered on 04/07/18 12:14; Admin Dose 1,000 MG; Start 03/31/18 at 18:00 Acetaminophen (Tylenol Tab) 650 mg Q4 PRN GTB MILD PAIN LEVEL 1-3 Last administered on 04/25/18 09:24; Admin Dose 650 MG; Start 03/31/18 at 18:00 Albuterol (Proventil 0.083% (Neb)) 2.5 mg Q3H PRN NEB WHEEZING AND SOB Last administered on 04/22/18 14:23; Admin Dose 2.5 MG; Start 03/31/18 at 18:00 Albuterol (Proventil 0.083% (Neb)) 2.5 mg Q6 PRN NEB WHEEZING AND SOB; Start 03/31/18 at 18:00 Ascorbic Acid (Vitamin C) 500 mg DAILY GTB Last administered on 04/25/18 09:24; Admin Dose 500 MG; Start 04/01/18 at 09:00 Bisacodyl (Dulcolax Supp) 10 mg DAILY PRN [place] CONSTIPATION; Start 03/31/18 at 18:00 Multivit/Ca Carb/ B Cmplx/FA/Prenat (Sofy-Sandoval) 1 tab DAILY GTB Last administered on 04/25/18 09:24; Admin Dose 1 TAB; Start 04/01/18 at 09:00 Zinc Sulfate (Zinc Sulfate) 220 mg DAILY GTB Last administered on 04/25/18 09:24; Admin Dose 220 MG; Start 04/01/18 at 09:00 IV Flush (NS 3 ml) 3 ml PER PROTOCOL IV ; Start 03/31/18 at 18:30 Ondansetron HCl (Zofran Inj) 4 mg Q6H PRN IV NAUSEA AND/OR VOMITING; Start 03/31/18 at 18:30 Acetaminophen (Tylenol Tab) 650 mg Q6H PRN PO PAIN LEVEL 1-3 OR FEVER Last administered on 04/22/18 09:18; Admin Dose 650 MG; Start 03/31/18 at 18:30 Acetaminophen (Tylenol Supp) 650 mg Q6H PRN ID PAIN LEVEL 1-3 OR FEVER Last administered on 04/22/18 00:12; Admin Dose 650 MG; Start 03/31/18 at 18:30 Docusate Sodium (Colace) 100 mg Q12H PRN PO CONSTIPATION; Start 03/31/18 at 18:30 Alteplase, Recombinant (Cathflo (Activase)) 2 mg MAY REPEAT X1 PRN CATHETER IF CATHETER REMAINS OCCULUDED Last administered on 04/03/18 04:24; Admin Dose 2 MG; Start 04/01/18 at 21:00 Collagenase (Santyl) 1 applic DAILY TOP Last administered on 04/25/18 09:24; Admin Dose 1 APPLIC; Start 04/03/18 at 12:00 Morphine Sulfate (morphine) 6 mg Q4H PRN GTB SEVERE PAIN LEVEL 6-10 Last administered on 04/17/18 23:47; Admin Dose 6 MG; Start 04/04/18 at 23:00 Polyethylene Glycol (Miralax) 17 gm DAILY GTB Last administered on 04/24/18 09:33; Admin Dose 17 GM; Start 04/08/18 at 09:00 Carvedilol (Coreg) 50 mg BID GTB Last administered on 04/25/18 09:25; Admin Dose 50 MG; Start 04/08/18 at 21:00 Aspirin (Halfprin) 81 mg DAILY PO Last administered on 04/25/18 09:24; Admin Dose 81 MG; Start 04/15/18 at 12:30 Lansoprazole (Prevacid) 30 mg HS PO Last administered on 04/24/18 21:23; Admin Dose 30 MG; Start 04/20/18 at 21:00 Fluconazole (Diflucan) 100 mg DAILY PO Last administered on 04/25/18 09:24; Admin Dose 100 MG; Start 04/21/18 at 14:00 Amikacin Sulfate (Amikacin Iv Per Pharmacy) AMIKACIN PER PHARMACY NOTE XX ; Start 04/22/18 at 11:30 Lorazepam (Ativan) 1 mg Q4H PRN IV restless, agitation, anxiety Last administered on 04/23/18at 13:51; Admin Dose 1 MG; Start 04/22/18 at 14:00 Amikacin Sulfate 850 mg/Sodium Chloride 253.4 ml @ 250 mls/hr Q72H IVPB ; Start 04/27/18 at 13:00 RENÉ GARCIA NP Apr 25, 2018 14:13
--- NOTE | 2018-04-25 16:37 | PN ---
Date/Time of Note Date/Time of Note DATE: 04/25/18 TIME: 16:34 Assessment/Plan VTE Prophylaxis Risk score (from Ns)>0 risk: 6 SCD applied (from Ns): Yes Pharmacological prophylaxis: NA/contraindicated Pharm contraindication: low risk/ambulating Lines/Catheters [facility] Saline Lock Urinary Cath still in place: Yes Reason Cath still needed: urinary retention Assessment/Plan Hospital Course 62 y/o with # Oral gingival bleeding likely due to dentures, seen by ENT s/p endoscopy # Sepsis with Fevers with hx Pneumonia +UTI and ? Pancreatitis +multiple wounds, ucx+ lisa, wound cx+ MRSA/ pseudomonas, +resp culture +pseudomonas # Blood loss anemia due to oral gingival bleeding # VDRF # CKD with worsening renal failure>resolved # Metabolic acidosis #DILATED CARDIOMYOPATHY # HX ALCOHOL ABUSE # Multiple wounds > decub # Pancreatitis with elevated Lipase # Enterocoltiis on CT # AMS due to Metabolic encephalopathy with . Possible subacute infarct in the left cerebellar hemisphere and cerebellar peduncle> much improved #Ongoing fevers likely secondary to UTI/hcap now improved Plan -On amikacin/fluconazole -per ID will need amikacin for 6 more days - no blood thinners due to anemia/bleeding from the trach - ativan prn - GI prophylaxsis - monitor oral bleeding ? Any utility of monitoring lipase since patient is asymptomatic - PT/OT/Speech Patient will need subacute who can take amikacin, talk to foster care case manager Result Diagram: 04/25/18 0637 04/25/18 0637 Results 24hrs Laboratory Tests Test 04/25/18 06:37 White Blood Count 6.2 Red Blood Count 2.89 L Hemoglobin 8.0 L Hematocrit 25.3 L Mean Corpuscular Volume 87.5 Mean Corpuscular Hemoglobin 27.7 L Mean Corpuscular Hemoglobin Concent 31.6 L Red Cell Distribution Width 14.8 H Platelet Count 174 Mean Platelet Volume 10.3 Immature Granulocytes % 0.600 H Neutrophils % 75.4 Lymphocytes % 11.2 L Monocytes % 11.5 H Eosinophils % 1.0 Basophils % 0.3 Nucleated Red Blood Cells % 0.0 Immature Granulocytes # 0.040 H Neutrophils # 4.7 Lymphocytes # 0.7 L Monocytes # 0.7 Eosinophils # 0.1 Basophils # 0.0 Nucleated Red Blood Cells # 0.0 Sodium Level 142 Potassium Level 4.3 Chloride Level 109 Carbon Dioxide Level 21 Anion Gap 12 Blood Urea Nitrogen 35 H Creatinine 0.88 Est Glomerular Filtrat Rate mL/min > 60 Glucose Level 97 Calcium Level 8.5 Phosphorus Level 2.8 Magnesium Level 2.1 Subjective 24 Hr Interval Summary Free Text/Dictation Patient is awake alert. ? ERCP No fevers Exam/Review of Systems Exam Vitals Vital Signs Date Temp Pulse Resp B/P (MAP) Pulse Ox O2 O2 Flow FiO2 Time Delivery Rate 04/25/18 74 16 98 30 15:10 04/25/18 98.2 92/61 (71) 12:00 04/24/18 Mechanical 16:08 Ventilator Intake and Output 04/24/18 04/24/18 04/25/18 1515:00 23:00 07:00 IntakeIntake Total 250 ml 900 ml 930 ml OutputOutput Total 600 ml 700 ml BalanceBalance 250 ml 300 ml 230 ml Results Results 24hrs Laboratory Tests Test 04/25/18 06:37 White Blood Count 6.2 Red Blood Count 2.89 L Hemoglobin 8.0 L Hematocrit 25.3 L Mean Corpuscular Volume 87.5 Mean Corpuscular Hemoglobin 27.7 L Mean Corpuscular Hemoglobin Concent 31.6 L Red Cell Distribution Width 14.8 H Platelet Count 174 Mean Platelet Volume 10.3 Immature Granulocytes % 0.600 H Neutrophils % 75.4 Lymphocytes % 11.2 L Monocytes % 11.5 H Eosinophils % 1.0 Basophils % 0.3 Nucleated Red Blood Cells % 0.0 Immature Granulocytes # 0.040 H Neutrophils # 4.7 Lymphocytes # 0.7 L Monocytes # 0.7 Eosinophils # 0.1 Basophils # 0.0 Nucleated Red Blood Cells # 0.0 Sodium Level 142 Potassium Level 4.3 Chloride Level 109 Carbon Dioxide Level 21 Anion Gap 12 Blood Urea Nitrogen 35 H Creatinine 0.88 Est Glomerular Filtrat Rate mL/min > 60 Glucose Level 97 Calcium Level 8.5 Phosphorus Level 2.8 Magnesium Level 2.1 Medications Medication Current Medications Acetaminophen (Tylenol Tab) 1,000 mg Q4 PRN PO MODERATE PAIN LEVEL 4-6 Last administered on 04/07/18at 12:14; Admin Dose 1,000 MG; Start 03/31/18 at 18:00 Acetaminophen (Tylenol Tab) 650 mg Q4 PRN GTB MILD PAIN LEVEL 1-3 Last administered on 04/25/18 09:24; Admin Dose 650 MG; Start 03/31/18 at 18:00 Albuterol (Proventil 0.083% (Neb)) 2.5 mg Q3H PRN NEB WHEEZING AND SOB Last administered on 04/22/18 14:23; Admin Dose 2.5 MG; Start 03/31/18 at 18:00 Albuterol (Proventil 0.083% (Neb)) 2.5 mg Q6 PRN NEB WHEEZING AND SOB; Start 03/31/18 at 18:00 Ascorbic Acid (Vitamin C) 500 mg DAILY GTB Last administered on 04/25/18 09:24; Admin Dose 500 MG; Start 04/01/18 at 09:00 Bisacodyl (Dulcolax Supp) 10 mg DAILY PRN [place] CONSTIPATION; Start 03/31/18 at 18:00 Multivit/Ca Carb/ B Cmplx/FA/Prenat (Sofy-Sandoval) 1 tab DAILY GTB Last administered on 04/25/18 09:24; Admin Dose 1 TAB; Start 04/01/18 at 09:00 Zinc Sulfate (Zinc Sulfate) 220 mg DAILY GTB Last administered on 04/25/18 09:24; Admin Dose 220 MG; Start 04/01/18 at 09:00 IV Flush (NS 3 ml) 3 ml PER PROTOCOL IV ; Start 03/31/18 at 18:30 Ondansetron HCl (Zofran Inj) 4 mg Q6H PRN IV NAUSEA AND/OR VOMITING; Start 03/31/18 at 18:30 Acetaminophen (Tylenol Tab) 650 mg Q6H PRN PO PAIN LEVEL 1-3 OR FEVER Last administered on 04/22/18 09:18; Admin Dose 650 MG; Start 03/31/18 at 18:30 Acetaminophen (Tylenol Supp) 650 mg Q6H PRN AR PAIN LEVEL 1-3 OR FEVER Last administered on 04/22/18 00:12; Admin Dose 650 MG; Start 03/31/18 at 18:30 Docusate Sodium (Colace) 100 mg Q12H PRN PO CONSTIPATION; Start 03/31/18 at 18:30 Alteplase, Recombinant (Cathflo (Activase)) 2 mg MAY REPEAT X1 PRN CATHETER IF CATHETER REMAINS OCCULUDED Last administered on 04/03/18 04:24; Admin Dose 2 MG; Start 04/01/18 at 21:00 Collagenase (Santyl) 1 applic DAILY TOP Last administered on 04/25/18 09:24; Admin Dose 1 APPLIC; Start 04/03/18 at 12:00 Morphine Sulfate (morphine) 6 mg Q4H PRN GTB SEVERE PAIN LEVEL 6-10 Last administered on 04/17/18 23:47; Admin Dose 6 MG; Start 04/04/18 at 23:00 Polyethylene Glycol (Miralax) 17 gm DAILY GTB Last administered on 04/24/18 09:33; Admin Dose 17 GM; Start 04/08/18 at 09:00 Carvedilol (Coreg) 50 mg BID GTB Last administered on 04/25/18 09:25; Admin Dose 50 MG; Start 04/08/18 at 21:00 Aspirin (Halfprin) 81 mg DAILY PO Last administered on 04/25/18 09:24; Admin Dose 81 MG; Start 04/15/18 at 12:30 Lansoprazole (Prevacid) 30 mg HS PO Last administered on 04/24/18 21:23; Admin Dose 30 MG; Start 04/20/18 at 21:00 Fluconazole (Diflucan) 100 mg DAILY PO Last administered on 04/25/18 09:24; Admin Dose 100 MG; Start 04/21/18 at 14:00 Amikacin Sulfate (Amikacin Iv Per Pharmacy) AMIKACIN PER PHARMACY NOTE XX ; Start 04/22/18 at 11:30 Lorazepam (Ativan) 1 mg Q4H PRN IV restless, agitation, anxiety Last administered on 04/23/18 13:51; Admin Dose 1 MG; Start 04/22/18 at 14:00 Amikacin Sulfate 850 mg/Sodium Chloride 253.4 ml @ 250 mls/hr Q72H IVPB ; Start 04/27/18 at 13:00 TAMARA GRAJEDA MD Apr 25, 2018 16:37
[2018-04-25] MEDS: LANSOPRAZOLE 30 MG CAP PO SCH (21:34)
[2018-04-26] VITALS (22 sets, daily range): BP systolic 106–130; BP diastolic 72–88; PULSE 72–94; RESP 17–29
[2018-04-26] MEDS: ACETAMINOPHEN 325 MG TAB GTB PRN ×3 (00:23→15:30)
[2018-04-26] MEDS: LORAZEPAM 2 MG INJ IV PRN (02:22)
[2018-04-26] MEDS: ZINC SULFATE 220 MG CAP GTB SCH (07:47)
[2018-04-26] MEDS: ASPIRIN (EC) 81 MG TAB PO SCH (07:47)
[2018-04-26] MEDS: COLLAGENASE 5 GM (UD JAR) TOP SCH (07:47)
[2018-04-26] MEDS: ASCORBIC ACID 500 MG TAB GTB SCH (07:47)
[2018-04-26] MEDS: MULTIVIT/CA CARB/B CMPLX/FA TAB GTB SCH (07:47)
[2018-04-26] MEDS: FLUCONAZOLE 100 MG TAB PO SCH (07:48)
[2018-04-26] MEDS: BALSAM PERU/CASTOR OIL 60 GM TUBE TOP SCH ×2 (07:48→20:37)
[2018-04-26] MEDS: POLYETHYLENE GLYCOL 17 GM PACKET GTB SCH (07:48)
--- NOTE | 2018-04-26 08:46 | CONS ---
Assessment/Plan Assessment/Plan Hospital Course (Demo Recall) 62 male with excessively bleeding gingival tissue and severe anemia 1. Severe acute on chronic anemia likely due to blood loss from gingival bleeding 3. Chronic liver disease, alcohol related 4. Mild coagulopathy 5. Elevated lipase with mildly elevated CA 19-9 -on CT scan pancreas is normal -lipid panel wnl -CBD 6mm, LFT wnl -Radiology will not do MRCP because of vent 6. Chronic kidney disease -BUN/vice president of academic affairs wnl 7. Encephalopathy secondary to anoxic brain injury 8. H/o duodenal ulcer Plan: Consider ERCP if patient's family agrees Cardiology clearance will be needed Continue supportive care. Bowel regimen Monitor HH and replace with PRBC as needed PPI BID Pt examined and plan of care discussed with Dr. Peña Consultation Date/Type/Reason Admit Date/Time Mar 31, 2018 at 17:58 Initial Consult Date 04/02/18 Requesting Provider: TAMARA GRAJEDA MD Date/Time of Note DATE: 04/26/18 TIME: 08:40 24 HR Interval Summary Free Text/Dictation No acute changes. Tmax 102.1, alleviated with Tylenol. tolerating tube feeds. BM 04/26. Exam/Review of Systems Exam Vitals Vital Signs Date Temp Pulse Resp B/P (MAP) Pulse Ox O2 O2 Flow FiO2 Time Delivery Rate 04/26/18 99.2 79 19 115/80 100 Trach 07:35 (92) Collar 04/26/18 30 04:55 Intake and Output 04/25/18 04/25/18 04/26/18 1515:00 23:00 07:00 IntakeIntake Total 250 ml 1080 ml 880 ml OutputOutput Total 600 ml 1550 ml BalanceBalance 250 ml 480 ml -670 ml ENMT: other (dried blood on lower lip) Gastrointestinal: other (benign, unremarkable, no non verbal cues to pain) Neurological: other (non communicative) Results Result Diagram: 04/25/18 0637 04/25/18 0637 Results 24hrs Laboratory Tests Test 04/26/18 08:38 Lab Scanned Report REFERENCE LAB Medications Medication Current Medications Acetaminophen (Tylenol Tab) 1,000 mg Q4 PRN PO MODERATE PAIN LEVEL 4-6 Last administered on 04/07/18at 12:14; Admin Dose 1,000 MG; Start 03/31/18 at 18:00 Acetaminophen (Tylenol Tab) 650 mg Q4 PRN GTB MILD PAIN LEVEL 1-3 Last adminis tered on 04/26/18 07:47; Admin Dose 650 MG; Start 03/31/18 at 18:00 Albuterol (Proventil 0.083% (Neb)) 2.5 mg Q3H PRN NEB WHEEZING AND SOB Last administered on 04/22/18at 14:23; Admin Dose 2.5 MG; Start 03/31/18 at 18:00 Albuterol (Proventil 0.083% (Neb)) 2.5 mg Q6 PRN NEB WHEEZING AND SOB; Start 03/31/18 at 18:00 Ascorbic Acid (Vitamin C) 500 mg DAILY GTB Last administered on 04/26/18 07:47; Admin Dose 500 MG; Start 04/01/18 at 09:00 Bisacodyl (Dulcolax Supp) 10 mg DAILY PRN [place] CONSTIPATION; Start 03/31/18 at 18:00 Multivit/Ca Carb/ B Cmplx/FA/Prenat (Sofy-Sandoval) 1 tab DAILY GTB Last administer ed on 04/26/18 07:47; Admin Dose 1 TAB; Start 04/01/18 at 09:00 Zinc Sulfate (Zinc Sulfate) 220 mg DAILY GTB Last administered on 04/26/18 07:47; Admin Dose 220 MG; Start 04/01/18 at 09:00 IV Flush (NS 3 ml) 3 ml PER PROTOCOL IV ; Start 03/31/18 at 18:30 Ondansetron HCl (Zofran Inj) 4 mg Q6H PRN IV NAUSEA AND/OR VOMITING; Start 03/31/18 at 18:30 Acetaminophen (Tylenol Tab) 650 mg Q6H PRN PO PAIN LEVEL 1-3 OR FEVER Last administered on 04/22/18at 09:18; Admin Dose 650 MG; Start 03/31/18 at 18:30 Acetaminophen (Tylenol Supp) 650 mg Q6H PRN [place] PAIN LEVEL 1-3 OR FEVER Last administered on 04/22/18at 00:12; Admin Dose 650 MG; Start 03/31/18 at 18:30 Docusate Sodium (Colace) 100 mg Q12H PRN PO CONSTIPATION; Start 03/31/18 at 18:30 Alteplase, Recombinant (Cathflo (Activase)) 2 mg MAY REPEAT X1 PRN CATHETER IF CATHETER REMAINS OCCULUDED Last administered on 04/03/18 04:24; Admin Dose 2 MG; Start 04/01/18 at 21:00 Collagenase (Santyl) 1 applic DAILY TOP Last administered on 04/26/18 07:47; Admin Dose 1 APPLIC; Start 04/03/18 at 12:00 Morphine Sulfate (morphine) 6 mg Q4H PRN GTB SEVERE PAIN LEVEL 6-10 Last administered on 04/17/18 23:47; Admin Dose 6 MG; Start 04/04/18 at 23:00 Polyethylene Glycol (Miralax) 17 gm DAILY GTB Last administered on 04/24/18 09:33; Admin Dose 17 GM; Start 04/08/18 at 09:00 Carvedilol (Coreg) 50 mg BID GTB Last administered on 04/26/18 07:48; Admin Dose 50 MG; Start 04/08/18 at 21:00 Aspirin (Halfprin) 81 mg DAILY PO Last administered on 04/26/18 07:47; Admin Dose 81 MG; Start 04/15/18 at 12:30 Lansoprazole (Prevacid) 30 mg HS PO Last administered on 04/25/18 21:34; Admin Dose 30 MG; Start 04/20/18 at 21:00 Fluconazole (Diflucan) 100 mg DAILY PO Last administered on 04/26/18 07:48; Admin Dose 100 MG; Start 04/21/18 at 14:00 Amikacin Sulfate (Amikacin Iv Per Pharmacy) AMIKACIN PER PHARMACY NOTE XX ; Start 04/22/18 at 11:30 Lorazepam (Ativan) 1 mg Q4H PRN IV restless, agitation, anxiety Last administered on 04/26/18 02:22; Admin Dose 1 MG; Start 04/22/18 at 14:00 Amikacin Sulfate 850 mg/Sodium Chloride 253.4 ml @ 250 mls/hr Q72H IVPB ; Start 04/27/18 at 13:00 QI CHRISTIANSON Apr 26, 2018 08:46
--- NOTE | 2018-04-26 12:52 | PN ---
Date/Time of Note Date/Time of Note DATE: 04/26/18 TIME: 12:50 Assessment/Plan VTE Prophylaxis Risk score (from Ns)>0 risk: 6 SCD applied (from Ns): Yes Pharmacological prophylaxis: NA/contraindicated Pharm contraindication: bleeding, thrombocytopenia, anticoag not tolerated Lines/Catheters [facility] Peripheral IV Urinary Cath still in place: Yes Reason Cath still needed: urinary retention Assessment/Plan Hospital Course # UTI # Oral gingival bleeding likely due to dentures, was seen by ENT s/p endoscopy # Sepsis with Fevers with hx Pneumonia +UTI and ? Pancreatitis +multiple wounds, ucx+ lisa # Blood loss anemia due to #1, resolved # VDRF # CKD , resolved # Metabolic acidosis # DILATED CARDIOMYOPATHY # HX ALCOHOL ABUSE # Multiple wounds > decub # hypomagnesemia # low grade fever Assessment/Plan -On amikacin/fluconazole -per ID will need amikacin for 6 more days - no blood thinners due to anemia/bleeding from the trach - ativan prn - GI prophylaxsis - monitor oral bleeding ? Any utility of monitoring lipase since patient is asymptomatic - PT/OT/Speech -Patient will need subacute who can take amikacin, talk to immigration case manager Result Diagram: 04/25/18 0637 04/25/18 0637 Results 24hrs Laboratory Tests Test 04/26/18 08:38 Lab Scanned Report REFERENCE LAB Subjective 24 Hr Interval Summary Subjective hx not possible: pt non-verbal Exam/Review of Systems Exam Vitals Vital Signs Date Temp Pulse Resp B/P (MAP) Pulse Ox O2 O2 Flow FiO2 Time Delivery Rate 04/26/18 97.9 77 23 130/88 99 Trach 11:32 (102) Collar 04/26/18 30 11:20 Intake and Output 04/25/18 04/25/18 04/26/18 1515:00 23:00 07:00 IntakeIntake Total 250 ml 1080 ml 880 ml OutputOutput Total 600 ml 1550 ml BalanceBalance 250 ml 480 ml -670 ml Constitutional: alert ENMT: other (TRACH) Neck: supple Respiratory: diminished breath sounds Cardiovascular: regular rate and rhythm Gastrointestinal: soft Genitourinary - Male: other (MOSS) Results Results 24hrs Laboratory Tests Test 04/26/18 08:38 Lab Scanned Report REFERENCE LAB Medications Medication Current Medications Acetaminophen (Tylenol Tab) 1,000 mg Q4 PRN PO MODERATE PAIN LEVEL 4-6 Last administered on 04/07/18 12:14; Admin Dose 1,000 MG; Start 03/31/18 at 18:00 Acetaminophen (Tylenol Tab) 650 mg Q4 PRN GTB MILD PAIN LEVEL 1-3 Last administered on 04/26/18 07:47; Admin Dose 650 MG; Start 03/31/18 at 18:00 Albuterol (Proventil 0.083% (Neb)) 2.5 mg Q3H PRN NEB WHEEZING AND SOB Last administered on 04/22/18 14:23; Admin Dose 2.5 MG; Start 03/31/18 at 18:00 Albuterol (Proventil 0.083% (Neb)) 2.5 mg Q6 PRN NEB WHEEZING AND SOB; Start 03/31/18 at 18:00 Ascorbic Acid (Vitamin C) 500 mg DAILY GTB Last administered on 04/26/18 07:47; Admin Dose 500 MG; Start 04/01/18 at 09:00 Bisacodyl (Dulcolax Supp) 10 mg DAILY PRN [place] CONSTIPATION; Start 03/31/18 at 18:00 Multivit/Ca Carb/ B Cmplx/FA/Prenat (Sofy-Sandoval) 1 tab DAILY GTB Last administered on 04/26/18 07:47; Admin Dose 1 TAB; Start 04/01/18 at 09:00 Zinc Sulfate (Zinc Sulfate) 220 mg DAILY GTB Last administered on 04/26/18 07:47; Admin Dose 220 MG; Start 04/01/18 at 09:00 IV Flush (NS 3 ml) 3 ml PER PROTOCOL IV ; Start 03/31/18 at 18:30 Ondansetron HCl (Zofran Inj) 4 mg Q6H PRN IV NAUSEA AND/OR VOMITING; Start 03/31/18 at 18:30 Acetaminophen (Tylenol Tab) 650 mg Q6H PRN PO PAIN LEVEL 1-3 OR FEVER Last administered on 04/22/18 09:18; Admin Dose 650 MG; Start 03/31/18 at 18:30 Acetaminophen (Tylenol Supp) 650 mg Q6H PRN [place] PAIN LEVEL 1-3 OR FEVER Last administered on 04/22/18 00:12; Admin Dose 650 MG; Start 03/31/18 at 18:30 Docusate Sodium (Colace) 100 mg Q12H PRN PO CONSTIPATION; Start 03/31/18 at 18:30 Alteplase, Recombinant (Cathflo (Activase)) 2 mg MAY REPEAT X1 PRN CATHETER IF CATHETER REMAINS OCCULUDED Last administered on 04/03/18 04:24; Admin Dose 2 MG; Start 04/01/18 at 21:00 Collagenase (Santyl) 1 applic DAILY TOP Last administered on 04/26/18 07:47; Admin Dose 1 APPLIC; Start 04/03/18 at 12:00 Morphine Sulfate (morphine) 6 mg Q4H PRN GTB SEVERE PAIN LEVEL 6-10 Last administered on 04/17/18 23:47; Admin Dose 6 MG; Start 04/04/18 at 23:00 Polyethylene Glycol (Miralax) 17 gm DAILY GTB Last administered on 04/24/18 09:33; Admin Dose 17 GM; Start 04/08/18 at 09:00 Carvedilol (Coreg) 50 mg BID GTB Last administered on 04/26/18 07:48; Admin Dose 50 MG; Start 04/08/18 at 21:00 Aspirin (Halfprin) 81 mg DAILY PO Last administered on 04/26/18 07:47; Admin Dose 81 MG; Start 04/15/18 at 12:30 Lansoprazole (Prevacid) 30 mg HS PO Last administered on 04/25/18 21:34; Admin Dose 30 MG; Start 04/20/18 at 21:00 Fluconazole (Diflucan) 100 mg DAILY PO Last administered on 04/26/18 07:48; Admin Dose 100 MG; Start 04/21/18 at 14:00 Amikacin Sulfate (Amikacin Iv Per Pharmacy) AMIKACIN PER PHARMACY NOTE XX ; Start 04/22/18 at 11:30 Lorazepam (Ativan) 1 mg Q4H PRN IV restless, agitation, anxiety Last administered on 04/26/18at 02:22; Admin Dose 1 MG; Start 04/22/18 at 14:00 Amikacin Sulfate 850 mg/Sodium Chloride 253.4 ml @ 250 mls/hr Q72H IVPB ; Start 04/27/18 at 13:00 LETITIA BLAKELY Apr 26, 2018 12:52
--- NOTE | 2018-04-26 15:58 | CONS ---
Assessment/Plan Assessment/Plan Hospital Course (Demo Recall) No events, s/p T 102 Antimicrobials: Amikacin, fluconazole status post Vanco Merrem Indwelling: Trach PEG Schwartz. Microbiology: Blood cultures negative, urine culture + Pseudomonas/C alb Physical examination: Chronically ill-appearing elderly man who is noncommunicative in no distress. Head atraumatic normocephalic sclera nonicteric neck is supple tracheostomy present chest rise symmetrical breath sounds diminished bases heart: S1-S2. Abdomen soft bowel sounds present. Extremities without cyanosis. Skin: Patient has multiple pressure sores he has a dry blood on the right lower lip Assessment: 1. Sepsis secondary to urinary tract infection and HCAP 2. Ongoing fevers, cant r/o malignancy given elevated CA19 and lipase 2. VDRF 3. Dysphagia 4. Chronic encephalopathy 5. History of cardiomyopathy 6. Sacral decub 7. MRSA nares colonization 8. Elevated amylase and lipase of unclear etiology Plan: Clinically unchanged, continue abx, GI rec-s Consultation Date/Type/Reason Admit Date/Time Mar 31, 2018 at 17:58 Initial Consult Date 04/02/18 Type of Consult id Requesting Provider: TAMARA GRAJEDA MD Date/Time of Note DATE: 04/26/18 TIME: 15:55 Exam/Review of Systems Exam Vitals Vital Signs Date Temp Pulse Resp B/P (MAP) Pulse Ox O2 O2 Flow FiO2 Time Delivery Rate 04/26/18 100.8 15:30 04/26/18 76 25 125/77 98 Trach 15:19 (93) Collar 04/26/18 30 13:15 Intake and Output 04/25/18 04/25/18 04/26/18 1515:00 23:00 07:00 IntakeIntake Total 250 ml 1080 ml 880 ml OutputOutput Total 600 ml 1550 ml BalanceBalance 250 ml 480 ml -670 ml Results Result Diagram: 04/25/18 0637 04/25/18 0637 Results 24hrs Laboratory Tests Test 04/26/18 08:38 Lab Scanned Report REFERENCE LAB Medications Medication Current Medications Acetaminophen (Tylenol Tab) 1,000 mg Q4 PRN PO MODERATE PAIN LEVEL 4-6 Last administered on 04/07/18at 12:14; Admin Dose 1,000 MG; Start 03/31/18 at 18:00 Acetaminophen (Tylenol Tab) 650 mg Q4 PRN GTB MILD PAIN LEVEL 1-3 Last administered on 04/26/18 15:30; Admin Dose 650 MG; Start 03/31/18 at 18:00 Albuterol (Proventil 0.083% (Neb)) 2.5 mg Q3H PRN NEB WHEEZING AND SOB Last administered on 04/22/18 14:23; Admin Dose 2.5 MG; Start 03/31/18 at 18:00 Albuterol (Proventil 0.083% (Neb)) 2.5 mg Q6 PRN NEB WHEEZING AND SOB; Start 03/31/18 at 18:00 Ascorbic Acid (Vitamin C) 500 mg DAILY GTB Last administered on 04/26/18 07:47; Admin Dose 500 MG; Start 04/01/18 at 09:00 Bisacodyl (Dulcolax Supp) 10 mg DAILY PRN [place] CONSTIPATION; Start 03/31/18 at 18:00 Multivit/Ca Carb/ B Cmplx/FA/Prenat (Sofy-Sandoval) 1 tab DAILY GTB Last administered on 04/26/18 07:47; Admin Dose 1 TAB; Start 04/01/18 at 09:00 Zinc Sulfate (Zinc Sulfate) 220 mg DAILY GTB Last administered on 04/26/18 07:47; Admin Dose 220 MG; Start 04/01/18 at 09:00 IV Flush (NS 3 ml) 3 ml PER PROTOCOL IV ; Start 03/31/18 at 18:30 Ondansetron HCl (Zofran Inj) 4 mg Q6H PRN IV NAUSEA AND/OR VOMITING; Start 03/31/18 at 18:30 Acetaminophen (Tylenol Tab) 650 mg Q6H PRN PO PAIN LEVEL 1-3 OR FEVER Last administered on 04/22/18 09:18; Admin Dose 650 MG; Start 03/31/18 at 18:30 Acetaminophen (Tylenol Supp) 650 mg Q6H PRN [place] PAIN LEVEL 1-3 OR FEVER Last administered on 04/22/18at 00:12; Admin Dose 650 MG; Start 03/31/18 at 18:30 Docusate Sodium (Colace) 100 mg Q12H PRN PO CONSTIPATION; Start 03/31/18 at 18:30 Alteplase, Recombinant (Cathflo (Activase)) 2 mg MAY REPEAT X1 PRN CATHETER IF CATHETER REMAINS OCCULUDED Last administered on 04/03/18 04:24; Admin Dose 2 MG; Start 04/01/18 at 21:00 Collagenase (Santyl) 1 applic DAILY TOP Last administered on 04/26/18 07:47; Admin Dose 1 APPLIC; Start 04/03/18 at 12:00 Morphine Sulfate (morphine) 6 mg Q4H PRN GTB SEVERE PAIN LEVEL 6-10 Last administered on 04/17/18 23:47; Admin Dose 6 MG; Start 04/04/18 at 23:00 Polyethylene Glycol (Miralax) 17 gm DAILY GTB Last administered on 04/24/18 09:33; Admin Dose 17 GM; Start 04/08/18 at 09:00 Carvedilol (Coreg) 50 mg BID GTB Last administered on 04/26/18 07:48; Admin Dose 50 MG; Start 04/08/18 at 21:00 Aspirin (Halfprin) 81 mg DAILY PO Last administered on 04/26/18 07:47; Admin Dose 81 MG; Start 04/15/18 at 12:30 Lansoprazole (Prevacid) 30 mg HS PO Last administered on 04/25/18 21:34; Admin Dose 30 MG; Start 04/20/18 at 21:00 Fluconazole (Diflucan) 100 mg DAILY PO Last administered on 04/26/18 07:48; Admin Dose 100 MG; Start 04/21/18 at 14:00 Amikacin Sulfate (Amikacin Iv Per Pharmacy) AMIKACIN PER PHARMACY NOTE XX ; Start 04/22/18 at 11:30 Lorazepam (Ativan) 1 mg Q4H PRN IV restless, agitation, anxiety Last administered on 04/26/18 02:22; Admin Dose 1 MG; Start 04/22/18 at 14:00 Amikacin Sulfate 850 mg/Sodium Chloride 253.4 ml @ 250 mls/hr Q72H IVPB ; Start 04/27/18 at 13:00 RENÉ GARCIA NP Apr 26, 2018 15:58
[2018-04-26] MEDS: LANSOPRAZOLE 30 MG CAP PO SCH (20:36)
[2018-04-27] VITALS (23 sets, daily range): BP systolic 95–120; BP diastolic 73–83; PULSE 78–99; RESP 17–29
[2018-04-27] MEDS: ACETAMINOPHEN 325 MG TAB GTB PRN (02:50)
[2018-04-27] MEDS: LORAZEPAM 2 MG INJ IV PRN (04:49)
[2018-04-27] MEDS: BALSAM PERU/CASTOR OIL 60 GM TUBE TOP SCH ×2 (09:00→21:30)
[2018-04-27] MEDS: COLLAGENASE 5 GM (UD JAR) TOP SCH (09:00)
[2018-04-27] MEDS: POLYETHYLENE GLYCOL 17 GM PACKET GTB SCH (09:00)
[2018-04-27] MEDS: MULTIVIT/CA CARB/B CMPLX/FA TAB GTB SCH (09:59)
[2018-04-27] MEDS: FLUCONAZOLE 100 MG TAB PO SCH (09:59)
[2018-04-27] MEDS: ASPIRIN 81 MG TAB PO SCH (10:00)
[2018-04-27] MEDS: ASCORBIC ACID 500 MG TAB GTB SCH (10:00)
[2018-04-27] MEDS: ZINC SULFATE 220 MG CAP GTB SCH (10:00)
--- NOTE | 2018-04-27 11:06 | CONS ---
Assessment/Plan Assessment/Plan Hospital Course (Demo Recall) ID PROGRESS NOTE CURRENT ABX: DAY # => Amikacin + Diflucan s/p Vanco IV + Merrem 04/25/18 0637 04/25/18 0637 24H INTERVAL SUMMARY * Non-communicative on the Vent, VSS, TMax today 100.0 MICRO/OTHER * MICRO: * Blood cultures remain negative. * Urine culture positive for Breanne albicans. * Endotracheal aspirate growing gram-negative rods. * Sacral wound culture growing MRSA, Breanne albicans, enterococcus, gram- negative rods. * Nares swab positive for MRSA * 04/20 + 04/21/18 PENILE DISCHARGE GENITAL CULTURE Final Organism 1 BREANNE ALBICANS QUANTITY SCANT GROWTH Organism 2 PSEUDOMONAS AERUGINOSA QUANTITY SCANT GROWTH P.AERUG P.AERUG M.I.C. RX M.I.C. RX --------- --- --------- --- AMIKACIN <=2 S AZTREONAM I CEFEPIME >=64 R CEFTAZIDIME >=64 R CIPROFLOXACIN >=4 R GENTAMICIN <=1 S LEVOFLOXACIN >=8 R MEROPENEM >32 R TOBRAMYCIN <=1 S PIPERACILLIN/TAZOBACTAM >=128 R PHYSICAL EXAMINATION: GENERAL: Afebrile, VSS HEENT: AT, NC, anicteric NECK: Supple, trach(+) -- secure CHEST: Equal chest rise bilaterally, without dyspnea on observation HEART: Pulse RRR ABDOMEN: Soft / NT EXTREMITIES: Warm, dry SKIN: No rash, no diaphoresis ID ASSESSMENT 62 yo M admit with: 1. s/p Sepsis === SIRS w/ ongoing fevers=> cant r/o malignancy given elevated CA19 and lipase 2. Possible acute pancreatitis, CT of the abdomen revealed no abscess, no pseudocyst * -on CT scan pancreas is normal * -lipid panel wnl * -CBD 6mm, LFT wnl * -Radiology will not do MRCP because of vent 3. Possible enterocolitis per CT => s/p ABX including Flagyl 4. Chronic respiratory failure 5. Hx of cardiomyopathy 6. S/p gingival bleeding w/resultant blood loss anemia 7. Sinusitis = s/p ABX treatment 8. Complex UTI w/penile discharge (+)PSAR * s/p Breanne albicans UTI = s/p Diflucan 9. Sacral decub (+)MRSA Nares -> s/p Vanco IV ABX ALLERGIES: NKDA INVASIVES: PICC, Trach, Peg, FC CURRENT ABX: DAY #Amikacin + Diflucan s/p Vanco IV + Merrem ID RECOMMENDATIONS/PLAN: 1. Continue current ABX over the weekend . Consultation Date/Type/Reason Admit Date/Time Mar 31, 2018 at 17:58 Initial Consult Date 04/02/18 Requesting Provider: TAMARA GRAJEDA MD Date/Time of Note DATE: 04/27/18 TIME: 11:06 Exam/Review of Systems Exam Vitals Vital Signs Date Temp Pulse Resp B/P (MAP) Pulse Ox O2 O2 Flow FiO2 Time Delivery Rate 04/27/18 81 08:00 04/27/18 99.3 17 108/78 100 Trach 07:19 (88) Collar 04/27/18 30 05:21 Intake and Output 04/26/18 04/26/18 04/27/18 1515:00 23:00 07:00 IntakeIntake Total 1080 ml 1130 ml OutputOutput Total 550 ml 750 ml BalanceBalance 530 ml 380 ml Results Result Diagram: 04/25/1837 04/25/1837 Medications Medication Current Medications Acetaminophen (Tylenol Tab) 1,000 mg Q4 PRN PO MODERATE PAIN LEVEL 4-6 Last administered on 04/07/18at 12:14; Admin Dose 1,000 MG; Start 03/31/18 at 18:00 Acetaminophen (Tylenol Tab) 650 mg Q4 PRN GTB MILD PAIN LEVEL 1-3 Last administered on 04/27/18at 02:50; Admin Dose 650 MG; Start 03/31/18 at 18:00 Albuterol (Proventil 0.083% (Neb)) 2.5 mg Q3H PRN NEB WHEEZING AND SOB Last administered on 04/22/18at 14:23; Admin Dose 2.5 MG; Start 03/31/18 at 18:00 Albuterol (Proventil 0.083% (Neb)) 2.5 mg Q6 PRN NEB WHEEZING AND SOB; Start 03/31/18 at 18:00 Ascorbic Acid (Vitamin C) 500 mg DAILY GTB Last administered on 04/27/18 10:00; Admin Dose 500 MG; Start 04/01/18 at 09:00 Bisacodyl (Dulcolax Supp) 10 mg DAILY PRN [place] CONSTIPATION; Start 03/31/18 at 18:00 Multivit/Ca Carb/ B Cmplx/FA/Prenat (Sofy-Sandoval) 1 tab DAILY GTB Last administered on 04/27/18 09:59; Admin Dose 1 TAB; Start 04/01/18 at 09:00 Zinc Sulfate (Zinc Sulfate) 220 mg DAILY GTB Last administered on 04/27/18 10:00; Admin Dose 220 MG; Start 04/01/18 at 09:00 IV Flush (NS 3 ml) 3 ml PER PROTOCOL IV ; Start 03/31/18 at 18:30 Ondansetron HCl (Zofran Inj) 4 mg Q6H PRN IV NAUSEA AND/OR VOMITING; Start at 18:30 Acetaminophen (Tylenol Tab) 650 mg Q6H PRN PO PAIN LEVEL 1-3 OR FEVER Last administered on 04/22/18 09:18; Admin Dose 650 MG; Start 03/31/18 at 18:30 Acetaminophen (Tylenol Supp) 650 mg Q6H PRN [place] PAIN LEVEL 1-3 OR FEVER Last administered on 04/22/18 00:12; Admin Dose 650 MG; Start 03/31/18 at 18:30 Docusate Sodium (Colace) 100 mg Q12H PRN PO CONSTIPATION; Start 03/31/18 at 18:30 Alteplase, Recombinant (Cathflo (Activase)) 2 mg MAY REPEAT X1 PRN CATHETER IF CATHETER REMAINS OCCULUDED Last administered on 04/03/18 04:24; Admin Dose 2 MG; Start 04/01/18 at 21:00 Collagenase (Santyl) 1 applic DAILY TOP Last administered on 04/27/18 09:00; Admin Dose 1 APPLIC; Start 04/03/18 at 12:00 Morphine Sulfate (morphine) 6 mg Q4H PRN GTB SEVERE PAIN LEVEL 6-10 Last administered on 04/17/18 23:47; Admin Dose 6 MG; Start 04/04/18 at 23:00 Polyethylene Glycol (Miralax) 17 gm DAILY GTB Last administered on 04/24/18 09:33; Admin Dose 17 GM; Start 04/08/18 at 09:00 Carvedilol (Coreg) 50 mg BID GTB Last administered on 04/27/18 09:59; Admin Dose 50 MG; Start 04/08/18 at 21:00 Lansoprazole (Prevacid) 30 mg HS PO Last administered on 04/26/18 20:36; Admin Dose 30 MG; Start 04/20/18 at 21:00 Fluconazole (Diflucan) 100 mg DAILY PO Last administered on 04/27/18 09:59; Admin Dose 100 MG; Start 04/21/18 at 14:00 Amikacin Sulfate (Amikacin Iv Per Pharmacy) AMIKACIN PER PHARMACY NOTE XX ; Start 04/22/18 at 11:30 Lorazepam (Ativan) 1 mg Q4H PRN IV restless, agitation, anxiety Last a dministered on 04/27/18 04:49; Admin Dose 1 MG; Start 04/22/18 at 14:00 Amikacin Sulfate 850 mg/Sodium Chloride 253.4 ml @ 250 mls/hr Q72H IVPB ; Start 04/27/18 at 13:00 Aspirin (Aspirin) 81 mg DAILY PO Last administered on 04/27/18 10:00; Admin Dose 81 MG; Start 04/27/18 at 09:00 ODIN ALBERTS NP Apr 27, 2018 11:06
--- NOTE | 2018-04-27 11:20 | CONS ---
Assessment/Plan Assessment/Plan Assessment/Plan (Daily) 62 male with excessively bleeding gingival tissue and severe anemia 1. Severe acute on chronic anemia likely due to blood loss from gingival bleeding 3. Chronic liver disease, alcohol related 4. Mild coagulopathy 5. Elevated lipase with mildly elevated CA 19-9 -on CT scan pancreas is normal -lipid panel wnl -CBD 6mm, LFT wnl -Radiology will not do MRCP because of vent 6. 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 Encephalopathy secondary to anoxic brain injury 8. H/o duodenal ulcer Plan: Consider ERCP if patient's family agrees. Given patient's overall condition I would defer ERCP unless the patient is symptomatic Cardiology clearance will be needed Continue supportive care. Bowel regimen Monitor HH and replace with PRBC as needed Consultation Date/Type/Reason Admit Date/Time Mar 31, 2018 at 17:58 Initial Consult Date 04/02/18 Requesting Provider: TAMARA GRAJEDA MD Date/Time of Note DATE: 04/27/18 TIME: 11:19 24 HR Interval Summary Free Text/Dictation Vision is no abdominal pain no nausea no vomiting as per the staff and Constitutional: no complaints Exam/Review of Systems Exam Vitals Vital Signs Date Temp Pulse Resp B/P (MAP) Pulse Ox O2 O2 Flow FiO2 Time Delivery Rate 04/27/18 81 08:00 04/27/18 99.3 17 108/78 100 Trach 07:19 (88) Collar 04/27/18 30 05:21 Intake and Output 04/26/18 04/26/18 04/27/18 1515:00 23:00 07:00 IntakeIntake Total 1080 ml 1130 ml OutputOutput Total 550 ml 750 ml BalanceBalance 530 ml 380 ml Eyes: nl conjunctiva, EOMI, nl lids, nl sclera, PERRL ENMT: nl external ears & nose Respiratory: diminished breath sounds Gastrointestinal: soft, nl liver, spleen, non-tender Musculoskeletal: nl extremities to inspection, nl gait and stance Results Result Diagram: 04/25/1837 04/25/18 0637 Medications Medication Current Medications Acetaminophen (Tylenol Tab) 1,000 mg Q4 PRN PO MODERATE PAIN LEVEL 4-6 Last administered on 04/07/18at 12:14; Admin Dose 1,000 MG; Start 03/31/18 at 18:00 Acetaminophen (Tylenol Tab) 650 mg Q4 PRN GTB MILD PAIN LEVEL 1-3 Last administered on 04/27/18at 02:50; Admin Dose 650 MG; Start 03/31/18 at 18:00 Albuterol (Proventil 0.083% (Neb)) 2.5 mg Q3H PRN NEB WHEEZING AND SOB Last administered on 04/22/18at 14:23; Admin Dose 2.5 MG; Start 03/31/18 at 18:00 Albuterol (Proventil 0.083% (Neb)) 2.5 mg Q6 PRN NEB WHEEZING AND SOB; Start 03/31/18 at 18:00 Ascorbic Acid (Vitamin C) 500 mg DAILY GTB Last administered on 04/27/18at 10:00; Admin Dose 500 MG; Start 04/01/18 at 09:00 Bisacodyl (Dulcolax Supp) 10 mg DAILY PRN [place] CONSTIPATION; Start 03/31/18 at 18:00 Multivit/Ca Carb/ B Cmplx/FA/Prenat (Sofy-Sandoval) 1 tab DAILY GTB Last administered on 04/27/18at 09:59; Admin Dose 1 TAB; Start 04/01/18 at 09:00 Zinc Sulfate (Zinc Sulfate) 220 mg DAILY GTB Last administered on 04/27/18at 10:00; Admin Dose 220 MG; Start 04/01/18 at 09:00 IV Flush (NS 3 ml) 3 ml PER PROTOCOL IV ; Start 03/31/18 at 18:30 Ondansetron HCl (Zofran Inj) 4 mg Q6H PRN IV NAUSEA AND/OR VOMITING; Start 03/31/18 at 18:30 Acetaminophen (Tylenol Tab) 650 mg Q6H PRN PO PAIN LEVEL 1-3 OR FEVER Last administered on 04/22/18at 09:18; Admin Dose 650 MG; Start 03/31/18 at 18:30 Acetaminophen (Tylenol Supp) 650 mg Q6H PRN [place] PAIN LEVEL 1-3 OR FEVER Last administered on 04/22/18at 00:12; Admin Dose 650 MG; Start 03/31/18 at 18:30 Docusate Sodium (Colace) 100 mg Q12H PRN PO CONSTIPATION; Start 03/31/18 at 18:30 Alteplase, Recombinant (Cathflo (Activase)) 2 mg MAY REPEAT X1 PRN CATHETER IF CATHETER REMAINS OCCULUDED Last administered on 04/03/18 04:24; Admin Dose 2 MG; Start 04/01/18 at 21:00 Collagenase (Santyl) 1 applic DAILY TOP Last administered on 04/27/18 09:00; Admin Dose 1 APPLIC; Start 04/03/18 at 12:00 Morphine Sulfate (morphine) 6 mg Q4H PRN GTB SEVERE PAIN LEVEL 6-10 Last administered on 04/17/18 23:47; Admin Dose 6 MG; Start 04/04/18 at 23:00 Polyethylene Glycol (Miralax) 17 gm DAILY GTB Last administered on 04/24/18 09:33; Admin Dose 17 GM; Start 04/08/18 at 09:00 Carvedilol (Coreg) 50 mg BID GTB Last administered on 04/27/18 09:59; Admin Dose 50 MG; Start 04/08/18 at 21:00 Lansoprazole (Prevacid) 30 mg HS PO Last administered on 04/26/18 20:36; Admin Dose 30 MG; Start 04/20/18 at 21:00 Fluconazole (Diflucan) 100 mg DAILY PO Last administered on 04/27/18 09:59; Admin Dose 100 MG; Start 04/21/18 at 14:00 Amikacin Sulfate (Amikacin Iv Per Pharmacy) AMIKACIN PER PHARMACY NOTE XX ; Start 04/22/18 at 11:30 Lorazepam (Ativan) 1 mg Q4H PRN IV restless, agitation, anxiety Last adminis tered on 04/27/18 04:49; Admin Dose 1 MG; Start 04/22/18 at 14:00 Amikacin Sulfate 850 mg/Sodium Chloride 253.4 ml @ 250 mls/hr Q72H IVPB ; Start 04/27/18 at 13:00 Aspirin (Aspirin) 81 mg DAILY PO Last administered on 04/27/18 10:00; Admin Dose 81 MG; Start 04/27/18 at 09:00 RASHEEDA MEJIA MD Apr 27, 2018 11:20
--- NOTE | 2018-04-27 13:11 | PN ---
Date/Time of Note Date/Time of Note DATE: 04/27/18 TIME: 13:08 Assessment/Plan VTE Prophylaxis Risk score (from Ns)>0 risk: 6 [place] [facility] [place] contraindicated: other Pharmacological prophylaxis: NA/contraindicated Pharm contraindication: anticoag not tolerated Lines/Catheters IV [facility] Peripheral IV Urinary Cath still in place: Yes Reason Cath still needed: urinary retention Assessment/Plan Hospital Course # UTI # Oral gingival bleeding likely due to dentures, was seen by ENT s/p endoscopy # Sepsis with Fevers with hx Pneumonia +UTI and ? Pancreatitis +multiple wounds, ucx+ lisa # Blood loss anemia due to #1, resolved # VDRF # CKD , resolved # Metabolic acidosis # DILATED CARDIOMYOPATHY # HX ALCOHOL ABUSE # Multiple wounds > decub # hypomagnesemia # low grade fever Assessment/Plan -On amikacin/fluconazole -per Dr Peña, he needs ERCP, cardiac clearance is needed -cardiac consult called, dr Chao -per ID will need amikacin for 6 more days - no blood thinners due to anemia/bleeding from the trach - ativan prn - GI prophylaxis - monitor oral bleeding ? Any utility of monitoring lipase since patient is asymptomatic - PT/OT/Speech Result Diagram: 04/25/1837 04/25/18 0637 Subjective 24 Hr Interval Summary Subjective hx not possible: pt non-verbal Exam/Review of Systems Exam Vitals Vital Signs Date Temp Pulse Resp B/P (MAP) Pulse Ox O2 O2 Flow FiO2 Time Delivery Rate 04/27/18 87 25 100 30 11:25 04/27/18 100.0 115/76 Trach 11:21 (89) Collar Intake and Output 04/26/18 04/26/18 04/27/18 1515:00 23:00 07:00 IntakeIntake Total 1080 ml 1130 ml OutputOutput Total 550 ml 750 ml BalanceBalance 530 ml 380 ml Exam lethargic Constitutional: non-verbal, frail ENMT: other (oral bleeding) Respiratory: diminished breath sounds Cardiovascular: regular rate and rhythm Gastrointestinal: soft, other (GT) Genitourinary - Male: other Medications Medication Current Medications Acetaminophen (Tylenol Tab) 1,000 mg Q4 PRN PO MODERATE PAIN LEVEL 4-6 Last administered on 04/07/18at 12:14; Admin Dose 1,000 MG; Start 03/31/18 at 18:00 Acetaminophen (Tylenol Tab) 650 mg Q4 PRN GTB MILD PAIN LEVEL 1-3 Last administered on 04/27/18 02:50; Admin Dose 650 MG; Start 03/31/18 at 18:00 Albuterol (Proventil 0.083% (Neb)) 2.5 mg Q3H PRN NEB WHEEZING AND SOB Last administered on 04/22/18 14:23; Admin Dose 2.5 MG; Start 03/31/18 at 18:00 Albuterol (Proventil 0.083% (Neb)) 2.5 mg Q6 PRN NEB WHEEZING AND SOB; Start 03/31/18 at 18:00 Ascorbic Acid (Vitamin C) 500 mg DAILY GTB Last administered on 04/27/18 10:00; Admin Dose 500 MG; Start 04/01/18 at 09:00 Bisacodyl (Dulcolax Supp) 10 mg DAILY PRN [place] CONSTIPATION; Start 03/31/18 at 18:00 Multivit/Ca Carb/ B Cmplx/FA/Prenat (Sofy-Sandoval) 1 tab DAILY GTB Last administered on 04/27/18 09:59; Admin Dose 1 TAB; Start 04/01/18 at 09:00 Zinc Sulfate (Zinc Sulfate) 220 mg DAILY GTB Last administered on 04/27/18 10:00; Admin Dose 220 MG; Start 04/01/18 at 09:00 IV Flush (NS 3 ml) 3 ml PER PROTOCOL IV ; Start 03/31/18 at 18:30 Ondansetron HCl (Zofran Inj) 4 mg Q6H PRN IV NAUSEA AND/OR VOMITING; Start 03/31/18 at 18:30 Acetaminophen (Tylenol Tab) 650 mg Q6H PRN PO PAIN LEVEL 1-3 OR FEVER Last administered on 04/22/18 09:18; Admin Dose 650 MG; Start 03/31/18 at 18:30 Acetaminophen (Tylenol Supp) 650 mg Q6H PRN IN PAIN LEVEL 1-3 OR FEVER Last administered on 04/22/18at 00:12; Admin Dose 650 MG; Start 03/31/18 at 18:30 Docusate Sodium (Colace) 100 mg Q12H PRN PO CONSTIPATION; Start 03/31/18 at 18:30 Alteplase, Recombinant (Cathflo (Activase)) 2 mg MAY REPEAT X1 PRN CATHETER IF CATHETER REMAINS OCCULUDED Last administered on 04/03/18 04:24; Admin Dose 2 MG; Start 04/01/18 at 21:00 Collagenase (Santyl) 1 applic DAILY TOP Last administered on 04/27/18 09:00; Admin Dose 1 APPLIC; Start 04/03/18 at 12:00 Morphine Sulfate (morphine) 6 mg Q4H PRN GTB SEVERE PAIN LEVEL 6-10 Last administered on 04/17/18 23:47; Admin Dose 6 MG; Start 04/04/18 at 23:00 Polyethylene Glycol (Miralax) 17 gm DAILY GTB Last administered on 04/27/18 09:00; Admin Dose 17 GM; Start 04/08/18 at 09:00 Carvedilol (Coreg) 50 mg BID GTB Last administered on 04/27/18 09:59; Admin Dose 50 MG; Start 04/08/18 at 21:00 Lansoprazole (Prevacid) 30 mg HS PO Last administered on 04/26/18 20:36; Admin Dose 30 MG; Start 04/20/18 at 21:00 Fluconazole (Diflucan) 100 mg DAILY PO Last administered on 04/27/18 09:59; Admin Dose 100 MG; Start 04/21/18 at 14:00 Amikacin Sulfate (Amikacin Iv Per Pharmacy) AMIKACIN PER PHARMACY NOTE XX ; Start 04/22/18 at 11:30 Lorazepam (Ativan) 1 mg Q4H PRN IV restless, agitation, anxiety Last administered on 04/27/18 04:49; Admin Dose 1 MG; Start 04/22/18 at 14:00 Amikacin Sulfate 850 mg/Sodium Chloride 253.4 ml @ 250 mls/hr Q72H IVPB ; Start 04/27/18 at 13:00 Aspirin (Aspirin) 81 mg DAILY PO Last administered on 04/27/18 10:00; Admin Dose 81 MG; Start 04/27/18 at 09:00 LETITIA BLAKELY Apr 27, 2018 13:11
[2018-04-27] MEDS: AMIKACIN IVPB SCH (13:40)
[2018-04-27] MEDS: SOD CHLORIDE 0.9% IVPB SCH (13:40)
[2018-04-27] MEDS: LANSOPRAZOLE 30 MG CAP PO SCH (21:31)
[2018-04-28] VITALS (21 sets, daily range): BP systolic 87–115; BP diastolic 58–76; PULSE 67–98; RESP 19–30
[2018-04-28] MEDS: ACETAMINOPHEN 325 MG TAB GTB PRN ×2 (04:04→15:43)
[2018-04-28] MEDS: ASCORBIC ACID 500 MG TAB GTB SCH (09:00)
[2018-04-28] MEDS: ZINC SULFATE 220 MG CAP GTB SCH (09:00)
[2018-04-28] MEDS: FLUCONAZOLE 100 MG TAB PO SCH (09:00)
[2018-04-28] MEDS: ASPIRIN 81 MG TAB PO SCH (09:00)
[2018-04-28] MEDS: POLYETHYLENE GLYCOL 17 GM PACKET GTB SCH (09:00)
[2018-04-28] MEDS: COLLAGENASE 5 GM (UD JAR) TOP SCH (09:00)
[2018-04-28] MEDS: MULTIVIT/CA CARB/B CMPLX/FA TAB GTB SCH (09:00)
[2018-04-28] MEDS: BALSAM PERU/CASTOR OIL 60 GM TUBE TOP SCH ×2 (09:00→22:06)
--- NOTE | 2018-04-28 14:30 | CONS ---
Assessment/Plan Assessment/Plan Assessment/Plan (Daily) Assessment/Plan (Daily) 62 male with excessively bleeding gingival tissue and severe anemia 1. Severe acute on chronic anemia likely due to blood loss from gingival bleeding no evidence of active GI bleeding 3. Chronic liver disease, alcohol related 4. Mild coagulopathy 5. Elevated lipase with mildly elevated CA 19-9 -on CT scan pancreas is normal -lipid panel wnl -CBD 6mm, LFT wnl -Radiology will not do MRCP because of vent 6. Chronic kidney disease -BUN/certified mortician wnl 7. Encephalopathy secondary to anoxic brain injury 8. H/o duodenal ulcer Plan: Consider ERCP if patient's family agrees. Given patient's overall condition I would defer ERCP unless the patient is symptomatic Cardiology clearance will be needed Continue supportive care. Bowel regimen Monitor HH and replace with PRBC as needed Consultation Date/Type/Reason Admit Date/Time Mar 31, 2018 at 17:58 Initial Consult Date 04/02/18 Requesting Provider: TAMARA GRAJEDA MD Date/Time of Note DATE: 04/28/18 TIME: 14:28 24 HR Interval Summary Free Text/Dictation S. There is no evidence of GI bleeding no melanotic stool, no hematochezia, and G-tube aspirate was negative for blood Constitutional: disoriented Exam/Review of Systems Exam Vitals Vital Signs Date Temp Pulse Resp B/P (MAP) Pulse Ox O2 O2 Flow FiO2 Time Delivery Rate 04/28/18 81 30 98 30 13:10 04/28/18 98.6 110/73 11:55 (85) 04/27/18 Trach 15:09 Collar Intake and Output 04/27/18 04/27/18 04/28/18 1515:00 23:00 07:00 IntakeIntake Total 1130 ml OutputOutput Total 1000 ml BalanceBalance 130 ml Constitutional: non-verbal ENMT: nl external ears & nose, nl lips & teeth, nl nasal mucosa & septum Respiratory: diminished breath sounds Gastrointestinal: soft, nl liver, spleen, non-tender Musculoskeletal: nl extremities to inspection, nl gait and stance Results Result Diagram: 04/28/18 0540 04/28/18 0540 Results 24hrs Laboratory Tests Test 04/28/18 05:40 White Blood Count 7.9 # Red Blood Count 2.51 L Hemoglobin 6.9 *L Hematocrit 21.9 L Mean Corpuscular Volume 87.3 Mean Corpuscular Hemoglobin 27.5 L Mean Corpuscular Hemoglobin Concent 31.5 L Red Cell Distribution Width 14.7 H Platelet Count 195 Mean Platelet Volume 10.1 Immature Granulocytes % 0.800 H Neutrophils % 78.4 H Lymphocytes % 10.3 L Monocytes % 9.1 Eosinophils % 1.3 Basophils % 0.1 Nucleated Red Blood Cells % 0.0 Immature Granulocytes # 0.060 H Neutrophils # 6.2 Lymphocytes # 0.8 Monocytes # 0.7 Eosinophils # 0.1 Basophils # 0.0 Nucleated Red Blood Cells # 0.0 Sodium Level 136 Potassium Level 4.4 Chloride Level 105 Carbon Dioxide Level 22 Anion Gap 9 Blood Urea Nitrogen 46 H Creatinine 0.99 Est Glomerular Filtrat Rate mL/min > 60 Glucose Level 109 Calcium Level 8.3 L Total Bilirubin 0.0 L Direct Bilirubin 0.00 Indirect Bilirubin 0.0 Aspartate Amino Transf (AST/SGOT) 84 H Alanine Aminotransferase (ALT/SGPT) 22 Alkaline Phosphatase 87 Total Protein 6.7 Albumin 2.8 L Globulin 3.90 H Albumin/Globulin Ratio 0.71 Medications Medication Current Medications Acetaminophen (Tylenol Tab) 1,000 mg Q4 PRN PO MODERATE PAIN LEVEL 4-6 Last administered on 04/07/18at 12:14; Admin Dose 1,000 MG; Start 03/31/18 at 18:00 Acetaminophen (Tylenol Tab) 650 mg Q4 PRN GTB MILD PAIN LEVEL 1-3 Last administered on 04/28/18at 04:04; Admin Dose 650 MG; Start 03/31/18 at 18:00 Albuterol (Proventil 0.083% (Neb)) 2.5 mg Q3H PRN NEB WHEEZING AND SOB Last administered on 04/22/18at 14:23; Admin Dose 2.5 MG; Start 03/31/18 at 18:00 Albuterol (Proventil 0.083% (Neb)) 2.5 mg Q6 PRN NEB WHEEZING AND SOB; Start 03/31/18 at 18:00 Ascorbic Acid (Vitamin C) 500 mg DAILY GTB Last administered on 04/28/18at 09:00; Admin Dose 500 MG; Start 04/01/18 at 09:00 Bisacodyl (Dulcolax Supp) 10 mg DAILY PRN [place] CONSTIPATION; Start 03/31/18 at 18:00 Multivit/Ca Carb/ B Cmplx/FA/Prenat (Sofy-Sandoval) 1 tab DAILY GTB Last administered on 04/28/18 09:00; Admin Dose 1 TAB; Start 04/01/18 at 09:00 Zinc Sulfate (Zinc Sulfate) 220 mg DAILY GTB Last administered on 04/28/18 09:00; Admin Dose 220 MG; Start 04/01/18 at 09:00 IV Flush (NS 3 ml) 3 ml PER PROTOCOL IV ; Start 03/31/18 at 18:30 Ondansetron HCl (Zofran Inj) 4 mg Q6H PRN IV NAUSEA AND/OR VOMITING; Start 03/31/18 at 18:30 Acetaminophen (Tylenol Tab) 650 mg Q6H PRN PO PAIN LEVEL 1-3 OR FEVER Last administered on 04/22/18 09:18; Admin Dose 650 MG; Start 03/31/18 at 18:30 Acetaminophen (Tylenol Supp) 650 mg Q6H PRN PA PAIN LEVEL 1-3 OR FEVER Last administered on 04/22/18 00:12; Admin Dose 650 MG; Start 03/31/18 at 18:30 Docusate Sodium (Colace) 100 mg Q12H PRN PO CONSTIPATION; Start 03/31/18 at 18:30 Alteplase, Recombinant (Cathflo (Activase)) 2 mg MAY REPEAT X1 PRN CATHETER IF CATHETER REMAINS OCCULUDED Last administered on 04/03/18 04:24; Admin Dose 2 MG; Start 04/01/18 at 21:00 Collagenase (Santyl) 1 applic DAILY TOP Last administered on 04/28/18 09:00; Admin Dose 1 APPLIC; Start 04/03/18 at 12:00 Morphine Sulfate (morphine) 6 mg Q4H PRN GTB SEVERE PAIN LEVEL 6-10 Last administered on 04/17/18 23:47; Admin Dose 6 MG; Start 04/04/18 at 23:00 Polyethylene Glycol (Miralax) 17 gm DAILY GTB Last administered on 04/28/18 09:00; Admin Dose 17 GM; Start 04/08/18 at 09:00 Carvedilol (Coreg) 50 mg BID GTB Last administered on 04/27/18 21:31; Admin Dose 50 MG; Start 04/08/18 at 21:00 Lansoprazole (Prevacid) 30 mg HS PO Last administered on 04/27/18 21:31; Admin Dose 30 MG; Start 04/20/18 at 21:00 Fluconazole (Diflucan) 100 mg DAILY PO Last administered on 04/28/18 09:00; Admin Dose 100 MG; Start 04/21/18 at 14:00 Amikacin Sulfate (Amikacin Iv Per Pharmacy) AMIKACIN PER PHARMACY NOTE XX ; Start 04/22/18 at 11:30 Lorazepam (Ativan) 1 mg Q4H PRN IV restless, agitation, anxiety Last administered on 04/27/18 04:49; Admin Dose 1 MG; Start 04/22/18 at 14:00 Amikacin Sulfate 850 mg/Sodium Chloride 253.4 ml @ 250 mls/hr Q72H IVPB Last administered on 04/27/18 13:40; Admin Dose 250 MLS/HR; Start 04/27/18 at 13:00 Aspirin (Aspirin) 81 mg DAILY PO Last administered on 04/28/18 09:00; Admin Dose 81 MG; Start 04/27/18 at 09:00 RASHEEDA MEJIA MD Apr 28, 2018 14:30
--- NOTE | 2018-04-28 14:31 | CONS ---
Assessment/Plan Assessment/Plan Hospital Course (Demo Recall) ID PROGRESS NOTE CURRENT ABX: DAY # => Amikacin + Diflucan + Doxy #1 s/p Vanco IV + Merrem 04/28/18 0540 04/28/18 0540 24H INTERVAL SUMMARY * Confused -- Non-communicative on the Vent, VSS, TMax > 101.4 yesterday * He has hx of (+)MRSA Nares colonization w/CT CXT findings of PNA -- will add Doxycyline * CT CHEST: There is patchy ground-glass opacification in the right middle lobe and anterior right upper lobe, with peribronchial/tree in bud nodules in the right lower lobe. Peribronchial opacification in the left upper lobe and left lower lobe with atelectasis/consolidation in the left lower lobe. MICRO/OTHER * MICRO: * Blood cultures remain negative. * Urine culture positive for Breanne albicans. * Endotracheal aspirate growing gram-negative rods. * Sacral wound culture growing MRSA, Breanne albicans, enterococcus, gram- negative rods. * Nares swab positive for MRSA * 04/20 + 04/21/18 PENILE DISCHARGE GENITAL CULTURE Final Organism 1 BREANNE ALBICANS QUANTITY SCANT GROWTH Organism 2 PSEUDOMONAS AERUGINOSA QUANTITY SCANT GROWTH P.AERUG P.AERUG M.I.C. RX M.I.C. RX --------- --- --------- --- AMIKACIN <=2 S AZTREONAM I CEFEPIME >=64 R CEFTAZIDIME >=64 R CIPROFLOXACIN >=4 R GENTAMICIN <=1 S LEVOFLOXACIN >=8 R MEROPENEM >32 R TOBRAMYCIN <=1 S PIPERACILLIN/TAZOBACTAM >=128 R PHYSICAL EXAMINATION: GENERAL: Afebrile, VSS HEENT: AT, NC, anicteric NECK: Supple, trach(+) -- secure CHEST: Equal chest rise bilaterally, without dyspnea on observation HEART: Pulse RRR ABDOMEN: Soft / NT EXTREMITIES: Warm, dry SKIN: No rash, no diaphoresis ID ASSESSMENT 62 yo M admit with: 1. s/p Sepsis === SIRS w/ ongoing fevers=> cant r/o malignancy given elevated CA19 and lipase 2. Possible acute pancreatitis, CT of the abdomen revealed no abscess, no pseudocyst * -on CT scan pancreas is normal * -lipid panel wnl * -CBD 6mm, LFT wnl * -Radiology will not do MRCP because of vent * Possible enterocolitis per CT => s/p ABX including Flagyl 3. HCAP -- Hx of (+)MRSA * CT PULMONARY FINDINGS: There is patchy ground-glass opacification in the right middle lobe and anterior right upper lobe, with peribronchial/tree in bud nodules in the right lower lobe. Peribronchial opacification in the left upper lobe and left lower lobe with atelectasis/consolidation in the left lower lobe. 4. Chronic respiratory failure 5. Hx of cardiomyopathy 6. S/p gingival bleeding w/resultant blood loss anemia 7. Sinusitis = s/p ABX treatment 8. Complex UTI w/penile discharge (+)PSAR * s/p Breanne albicans UTI = s/p Diflucan 9. Sacral decub (+)MRSA Nares -> s/p Vanco IV ABX ALLERGIES: NKDA INVASIVES: PICC, Trach, Peg, FC CURRENT ABX: DAY #Amikacin + Diflucan + Doxy s/p Vanco IV + Merrem ID RECOMMENDATIONS/PLAN: 1. Adding Doxy as he has hx of MRSA nares and PNA process on CT + still spiking fevers 2. Continue Amikacin/Diflucan . . Consultation Date/Type/Reason Admit Date/Time Mar 31, 2018 at 17:58 Initial Consult Date 04/02/18 Requesting Provider: TAMARA GRAJEDA MD Date/Time of Note DATE: 04/28/18 TIME: 14:28 Exam/Review of Systems Exam Vitals Vital Signs Date Temp Pulse Resp B/P (MAP) Pulse Ox O2 O2 Flow FiO2 Time Delivery Rate 04/28/18 81 30 98 30 13:10 04/28/18 98.6 110/73 11:55 (85) 04/27/18 Trach 15:09 Collar Intake and Output 04/27/18 04/27/18 04/28/18 1515:00 23:00 07:00 IntakeIntake Total 1130 ml OutputOutput Total 1000 ml BalanceBalance 130 ml Results Result Diagram: 04/28/18 0540 04/28/18 0540 Results 24hrs Laboratory Tests Test 04/28/18 05:40 White Blood Count 7.9 # Red Blood Count 2.51 L Hemoglobin 6.9 *L Hematocrit 21.9 L Mean Corpuscular Volume 87.3 Mean Corpuscular Hemoglobin 27.5 L Mean Corpuscular Hemoglobin Concent 31.5 L Red Cell Distribution Width 14.7 H Platelet Count 195 Mean Platelet Volume 10.1 Immature Granulocytes % 0.800 H Neutrophils % 78.4 H Lymphocytes % 10.3 L Monocytes % 9.1 Eosinophils % 1.3 Basophils % 0.1 Nucleated Red Blood Cells % 0.0 Immature Granulocytes # 0.060 H Neutrophils # 6.2 Lymphocytes # 0.8 Monocytes # 0.7 Eosinophils # 0.1 Basophils # 0.0 Nucleated Red Blood Cells # 0.0 Sodium Level 136 Potassium Level 4.4 Chloride Level 105 Carbon Dioxide Level 22 Anion Gap 9 Blood Urea Nitrogen 46 H Creatinine 0.99 Est Glomerular Filtrat Rate mL/min > 60 Glucose Level 109 Calcium Level 8.3 L Total Bilirubin 0.0 L Direct Bilirubin 0.00 Indirect Bilirubin 0.0 Aspartate Amino Transf (AST/SGOT) 84 H Alanine Aminotransferase (ALT/SGPT) 22 Alkaline Phosphatase 87 Total Protein 6.7 Albumin 2.8 L Globulin 3.90 H Albumin/Globulin Ratio 0.71 Medications Medication Current Medications Acetaminophen (Tylenol Tab) 1,000 mg Q4 PRN PO MODERATE PAIN LEVEL 4-6 Last administered on 04/07/18at 12:14; Admin Dose 1,000 MG; Start 03/31/18 at 18:00 Acetaminophen (Tylenol Tab) 650 mg Q4 PRN GTB MILD PAIN LEVEL 1-3 Last administered on 04/28/18at 04:04; Admin Dose 650 MG; Start 03/31/18 at 18:00 Albuterol (Proventil 0.083% (Neb)) 2.5 mg Q3H PRN NEB WHEEZING AND SOB Last administered on 04/22/18at 14:23; Admin Dose 2.5 MG; Start 03/31/18 at 18:00 Albuterol (Proventil 0.083% (Neb)) 2.5 mg Q6 PRN NEB WHEEZING AND SOB; Start 03/31/18 at 18:00 Ascorbic Acid (Vitamin C) 500 mg DAILY GTB Last administered on 04/28/18 09:00; Admin Dose 500 MG; Start 04/01/18 at 09:00 Bisacodyl (Dulcolax Supp) 10 mg DAILY PRN [place] CONSTIPATION; Start 03/31/18 at 18:00 Multivit/Ca Carb/ B Cmplx/FA/Prenat (Sofy-Sandoval) 1 tab DAILY GTB Last administered on 04/28/18 09:00; Admin Dose 1 TAB; Start 04/01/18 at 09:00 Zinc Sulfate (Zinc Sulfate) 220 mg DAILY GTB Last administered on 04/28/18 09:00; Admin Dose 220 MG; Start 04/01/18 at 09:00 IV Flush (NS 3 ml) 3 ml PER PROTOCOL IV ; Start 03/31/18 at 18:30 Ondansetron HCl (Zofran Inj) 4 mg Q6H PRN IV NAUSEA AND/OR VOMITING; Start 03/31/18 at 18:30 Acetaminophen (Tylenol Tab) 650 mg Q6H PRN PO PAIN LEVEL 1-3 OR FEVER Last administered on 04/22/18 09:18; Admin Dose 650 MG; Start 03/31/18 at 18:30 Acetaminophen (Tylenol Supp) 650 mg Q6H PRN [place] PAIN LEVEL 1-3 OR FEVER Last administered on 04/22/18 00:12; Admin Dose 650 MG; Start 03/31/18 at 18:30 Docusate Sodium (Colace) 100 mg Q12H PRN PO CONSTIPATION; Start 03/31/18 at 18:30 Alteplase, Recombinant (Cathflo (Activase)) 2 mg MAY REPEAT X1 PRN CATHETER IF CATHETER REMAINS OCCULUDED Last administered on 04/03/18 04:24; Admin Dose 2 MG; Start 04/01/18 at 21:00 Collagenase (Santyl) 1 applic DAILY TOP Last administered on 04/28/18 09:00; Admin Dose 1 APPLIC; Start 04/03/18 at 12:00 Morphine Sulfate (morphine) 6 mg Q4H PRN GTB SEVERE PAIN LEVEL 6-10 Last administered on 04/17/18 23:47; Admin Dose 6 MG; Start 04/04/18 at 23:00 Polyethylene Glycol (Miralax) 17 gm DAILY GTB Last administered on 04/28/18 09:00; Admin Dose 17 GM; Start 04/08/18 at 09:00 Carvedilol (Coreg) 50 mg BID GTB Last administered on 04/27/18 21:31; Admin Dose 50 MG; Start 04/08/18 at 21:00 Lansoprazole (Prevacid) 30 mg HS PO Last administered on 04/27/18 21:31; Admin Dose 30 MG; Start 04/20/18 at 21:00 Fluconazole (Diflucan) 100 mg DAILY PO Last administered on 04/28/18 09:00; Admin Dose 100 MG; Start 04/21/18 at 14:00 Amikacin Sulfate (Amikacin Iv Per Pharmacy) AMIKACIN PER PHARMACY NOTE XX ; Start 04/22/18 at 11:30 Lorazepam (Ativan) 1 mg Q4H PRN IV restless, agitation, anxiety Last administered on 04/27/18 04:49; Admin Dose 1 MG; Start 04/22/18 at 14:00 Amikacin Sulfate 850 mg/Sodium Chloride 253.4 ml @ 250 mls/hr Q72H IVPB Last administered on 04/27/18 13:40; Admin Dose 250 MLS/HR; Start 04/27/18 at 13:00 Aspirin (Aspirin) 81 mg DAILY PO Last administered on 04/28/18 09:00; Admin Dose 81 MG; Start 04/27/18 at 09:00 ODIN ALBERTS NP Apr 28, 2018 14:31
--- NOTE | 2018-04-28 15:18 | PN ---
Date/Time of Note Date/Time of Note DATE: 04/28/18 TIME: 15:16 Assessment/Plan VTE Prophylaxis Risk score (from Ns)>0 risk: 6 SCD applied (from Ns): Yes SCD contraindicated: other Pharmacological prophylaxis: other Lines/Catheters IV C[facility]ter Type (from [facility]): Peripheral IV Urinary Cath still in place: Yes Reason Cath still needed: other (indicate) Assessment/Plan Hospital Course # UTI # Oral gingival bleeding likely due to dentures, was seen by ENT s/p endoscopy # Sepsis with Fevers with hx Pneumonia +UTI and ? Pancreatitis +multiple wounds, ucx+ lisa # anemia will need prbc # VDRF # CKD , resolved # Metabolic acidosis hx # DILATED CARDIOMYOPATHY # HX ALCOHOL ABUSE # Multiple wounds > decub plan wound care Result Diagram: 04/28/18 0540 04/28/18 0540 Results 24hrs Laboratory Tests Test 04/28/18 05:40 White Blood Count 7.9 # Red Blood Count 2.51 L Hemoglobin 6.9 *L Hematocrit 21.9 L Mean Corpuscular Volume 87.3 Mean Corpuscular Hemoglobin 27.5 L Mean Corpuscular Hemoglobin Concent 31.5 L Red Cell Distribution Width 14.7 H Platelet Count 195 Mean Platelet Volume 10.1 Immature Granulocytes % 0.800 H Neutrophils % 78.4 H Lymphocytes % 10.3 L Monocytes % 9.1 Eosinophils % 1.3 Basophils % 0.1 Nucleated Red Blood Cells % 0.0 Immature Granulocytes # 0.060 H Neutrophils # 6.2 Lymphocytes # 0.8 Monocytes # 0.7 Eosinophils # 0.1 Basophils # 0.0 Nucleated Red Blood Cells # 0.0 Sodium Level 136 Potassium Level 4.4 Chloride Level 105 Carbon Dioxide Level 22 Anion Gap 9 Blood Urea Nitrogen 46 H Creatinine 0.99 Est Glomerular Filtrat Rate mL/min > 60 Glucose Level 109 Calcium Level 8.3 L Total Bilirubin 0.0 L Direct Bilirubin 0.00 Indirect Bilirubin 0.0 Aspartate Amino Transf (AST/SGOT) 84 H Alanine Aminotransferase (ALT/SGPT) 22 Alkaline Phosphatase 87 Total Protein 6.7 Albumin 2.8 L Globulin 3.90 H Albumin/Globulin Ratio 0.71 Subjective 24 Hr Interval Summary Subjective hx not possible: other (d/w family,encephalopathic) Exam/Review of Systems Exam Vitals Vital Signs Date Temp Pulse Resp B/P (MAP) Pulse Ox O2 O2 Flow FiO2 Time Delivery Rate 04/28/18 81 30 98 30 13:10 04/28/18 98.6 110/73 11:55 (85) 04/27/18 Trach 15:09 Collar Intake and Output 04/27/18 04/27/18 04/28/18 1515:00 23:00 07:00 IntakeIntake Total 1130 ml OutputOutput Total 1000 ml BalanceBalance 130 ml Neck: supple Respiratory: clear to auscultation Cardiovascular: regular rate and rhythm Gastrointestinal: soft, bowel sounds (+) Extremities: No edema Results Results 24hrs Laboratory Tests Test 04/28/18 05:40 White Blood Count 7.9 # Red Blood Count 2.51 L Hemoglobin 6.9 *L Hematocrit 21.9 L Mean Corpuscular Volume 87.3 Mean Corpuscular Hemoglobin 27.5 L Mean Corpuscular Hemoglobin Concent 31.5 L Red Cell Distribution Width 14.7 H Platelet Count 195 Mean Platelet Volume 10.1 Immature Granulocytes % 0.800 H Neutrophils % 78.4 H Lymphocytes % 10.3 L Monocytes % 9.1 Eosinophils % 1.3 Basophils % 0.1 Nucleated Red Blood Cells % 0.0 Immature Granulocytes # 0.060 H Neutrophils # 6.2 Lymphocytes # 0.8 Monocytes # 0.7 Eosinophils # 0.1 Basophils # 0.0 Nucleated Red Blood Cells # 0.0 Sodium Level 136 Potassium Level 4.4 Chloride Level 105 Carbon Dioxide Level 22 Anion Gap 9 Blood Urea Nitrogen 46 H Creatinine 0.99 Est Glomerular Filtrat Rate mL/min > 60 Glucose Level 109 Calcium Level 8.3 L Total Bilirubin 0.0 L Direct Bilirubin 0.00 Indirect Bilirubin 0.0 Aspartate Amino Transf (AST/SGOT) 84 H Alanine Aminotransferase (ALT/SGPT) 22 Alkaline Phosphatase 87 Total Protein 6.7 Albumin 2.8 L Globulin 3.90 H Albumin/Globulin Ratio 0.71 Medications Medication Current Medications Acetaminophen (Tylenol Tab) 1,000 mg Q4 PRN PO MODERATE PAIN LEVEL 4-6 Last a dministered on 04/07/18at 12:14; Admin Dose 1,000 MG; Start 03/31/18 at 18:00 Acetaminophen (Tylenol Tab) 650 mg Q4 PRN GTB MILD PAIN LEVEL 1-3 Last administered on 04/28/18at 04:04; Admin Dose 650 MG; Start 03/31/18 at 18:00 Albuterol (Proventil 0.083% (Neb)) 2.5 mg Q3H PRN NEB WHEEZING AND SOB Last a dministered on 04/22/18at 14:23; Admin Dose 2.5 MG; Start 03/31/18 at 18:00 Albuterol (Proventil 0.083% (Neb)) 2.5 mg Q6 PRN NEB WHEEZING AND SOB; Start 03/31/18 at 18:00 Ascorbic Acid (Vitamin C) 500 mg DAILY GTB Last administered on 04/28/18 09:00; Admin Dose 500 MG; Start 04/01/18 at 09:00 Bisacodyl (Dulcolax Supp) 10 mg DAILY PRN [place] CONSTIPATION; Start 03/31/18 at 18:00 Multivit/Ca Carb/ B Cmplx/FA/Prenat (Sofy-Sandoval) 1 tab DAILY GTB Last administered on 04/28/18 09:00; Admin Dose 1 TAB; Start 04/01/18 at 09:00 Zinc Sulfate (Zinc Sulfate) 220 mg DAILY GTB Last administered on 04/28/18 09:00; Admin Dose 220 MG; Start 04/01/18 at 09:00 IV Flush (NS 3 ml) 3 ml PER PROTOCOL IV ; Start 03/31/18 at 18:30 Ondansetron HCl (Zofran Inj) 4 mg Q6H PRN IV NAUSEA AND/OR VOMITING; Start 03/31/18 at 18:30 Acetaminophen (Tylenol Tab) 650 mg Q6H PRN PO PAIN LEVEL 1-3 OR FEVER Last administered on 04/22/18 09:18; Admin Dose 650 MG; Start 03/31/18 at 18:30 Acetaminophen (Tylenol Supp) 650 mg Q6H PRN NE PAIN LEVEL 1-3 OR FEVER Last administered on 04/22/18 00:12; Admin Dose 650 MG; Start 03/31/18 at 18:30 Docusate Sodium (Colace) 100 mg Q12H PRN PO CONSTIPATION; Start 03/31/18 at 18:30 Alteplase, Recombinant (Cathflo (Activase)) 2 mg MAY REPEAT X1 PRN CATHETER IF CATHETER REMAINS OCCULUDED Last administered on 04/03/18at 04:24; Admin Dose 2 MG; Start 04/01/18 at 21:00 Collagenase (Santyl) 1 applic DAILY TOP Last administered on 04/28/18 09:00; Admin Dose 1 APPLIC; Start 04/03/18 at 12:00 Morphine Sulfate (morphine) 6 mg Q4H PRN GTB SEVERE PAIN LEVEL 6-10 Last administered on 04/17/18 23:47; Admin Dose 6 MG; Start 04/04/18 at 23:00 Polyethylene Glycol (Miralax) 17 gm DAILY GTB Last administered on 04/28/18 09:00; Admin Dose 17 GM; Start 04/08/18 at 09:00 Carvedilol (Coreg) 50 mg BID GTB Last administered on 04/27/18 21:31; Admin Dose 50 MG; Start 04/08/18 at 21:00 Lansoprazole (Prevacid) 30 mg HS PO Last administered on 04/27/18 21:31; Admin Dose 30 MG; Start 04/20/18 at 21:00 Fluconazole (Diflucan) 100 mg DAILY PO Last administered on 04/28/18 09:00; Admin Dose 100 MG; Start 04/21/18 at 14:00 Amikacin Sulfate (Amikacin Iv Per Pharmacy) AMIKACIN PER PHARMACY NOTE XX ; Start 04/22/18 at 11:30 Lorazepam (Ativan) 1 mg Q4H PRN IV restless, agitation, anxiety Last administered on 04/27/18 04:49; Admin Dose 1 MG; Start 04/22/18 at 14:00 Amikacin Sulfate 850 mg/Sodium Chloride 253.4 ml @ 250 mls/hr Q72H IVPB Last administered on 04/27/18 13:40; Admin Dose 250 MLS/HR; Start 04/27/18 at 13:00 Aspirin (Aspirin) 81 mg DAILY PO Last administered on 04/28/18 09:00; Admin Dose 81 MG; Start 04/27/18 at 09:00 Doxycycline Hyclate 100 mg/ Sodium Chloride 250 ml @ 250 mls/hr Q12 IVPB ; Start 04/28/18 at 15:30 GARFIELD MOREAU MD Apr 28, 2018 15:18
[2018-04-28] MEDS: DOXYCYCLINE 100 MG in SOD CHLORIDE 0.9% 250 ML IVPB SCH (15:30)
[2018-04-28] MEDS: LANSOPRAZOLE 30 MG CAP PO SCH (22:04)
[2018-04-28] MEDS: LORAZEPAM 2 MG INJ IV PRN (22:22)
[2018-04-29] VITALS (20 sets, daily range): BP systolic 92–139; BP diastolic 62–93; PULSE 89–103; RESP 18–29
[2018-04-29] MEDS: DOXYCYCLINE 100 MG in SOD CHLORIDE 0.9% 250 ML IVPB SCH ×3 (00:33→21:30)
--- NOTE | 2018-04-29 07:38 | CONS ---
Assessment/Plan Assessment/Plan Hospital Course (Demo Recall) 62 male with excessively bleeding gingival tissue and severe anemia 1. Severe acute on chronic anemia likely due to blood loss from gingival bleeding -over weekend drop in hgb to 6.9, s/p 2 units PRBC hgb up to 8.3 3. Chronic liver disease, alcohol related 4. Mild coagulopathy 5. Elevated lipase with mildly elevated CA 19-9 -on CT scan pancreas is normal -lipid panel wnl -CBD 6mm, LFT wnl -Radiology will not do MRCP because of vent 6. Chronic kidney disease -BUN/recruiter coordinator wnl 7. Encephalopathy secondary to anoxic brain injury 8. H/o duodenal ulcer 9. Complex UTI with lisa albicans, s/p diflucan Plan: per Dr. Peña he would recommend deferring ERCP unless pt is symptomatic given his condition. If family wants ERCP, cardiology clearance will be needed. Continue supportive care. Bowel regimen Monitor HH and replace with PRBC as needed PPI BID Pt examined and plan of care discussed with Dr. Peña Consultation Date/Type/Reason Admit Date/Time Mar 31, 2018 at 17:58 Initial Consult Date 04/02/18 Requesting Provider: TAMARA GRAJEDA MD Date/Time of Note DATE: 04/29/18 TIME: 07:36 24 HR Interval Summary Free Text/Dictation On 04/27, pt had drop in hgb to 6.9 was given 2 units PRBC with increase of hgb to 8.3 on 04/28. There is noted blood in trach which appears to be from suctioning and small amount of blood at corner of mouth with old blood on lower lip and corner of mouth. He is tolerating tube feeds. No evidence of abd pain or GI bleeding per director part RN. Exam/Review of Systems Exam Vitals Vital Signs Date Temp Pulse Resp B/P (MAP) Pulse Ox O2 O2 Flow FiO2 Time Delivery Rate 04/29/18 80 20 99 30 06:13 04/29/18 98.3 113/75 04:00 (88) 04/27/18 Trach 15:09 Collar Intake and Output 04/28/18 04/28/18 04/29/18 1515:00 23:00 07:00 IntakeIntake Total 1130 ml OutputOutput Total 800 ml BalanceBalance 330 ml Respiratory: diminished breath sounds Cardiovascular: regular rate and rhythm Gastrointestinal: soft, rebound or guarding Results Result Diagram: 04/29/18 0539 04/28/18 0540 Results 24hrs Laboratory Tests Test 04/29/18 05:39 White Blood Count 7.5 Red Blood Count 3.01 L Hemoglobin 8.4 #L Hematocrit 26.3 #L Mean Corpuscular Volume 87.4 Mean Corpuscular Hemoglobin 27.9 L Mean Corpuscular Hemoglobin Concent 31.9 L Red Cell Distribution Width 14.7 H Platelet Count 200 Mean Platelet Volume 10.6 H Immature Granulocytes % 0.500 H Neutrophils % 73.8 Lymphocytes % 10.9 L Monocytes % 12.3 H Eosinophils % 2.1 Basophils % 0.4 Nucleated Red Blood Cells % 0.0 Immature Granulocytes # 0.040 H Neutrophils # 5.5 Lymphocytes # 0.8 Monocytes # 0.9 Eosinophils # 0.2 Basophils # 0.0 Nucleated Red Blood Cells # 0.0 Medications Medication Current Medications Acetaminophen (Tylenol Tab) 1,000 mg Q4 PRN PO MODERATE PAIN LEVEL 4-6 Last administered on 04/07/18at 12:14; Admin Dose 1,000 MG; Start 03/31/18 at 18:00 Acetaminophen (Tylenol Tab) 650 mg Q4 PRN GTB MILD PAIN LEVEL 1-3 Last administered on 04/28/18at 15:43; Admin Dose 650 MG; Start 03/31/18 at 18:00 Albuterol (Proventil 0.083% (Neb)) 2.5 mg Q3H PRN NEB WHEEZING AND SOB Last administered on 04/22/18at 14:23; Admin Dose 2.5 MG; Start 03/31/18 at 18:00 Albuterol (Proventil 0.083% (Neb)) 2.5 mg Q6 PRN NEB WHEEZING AND SOB; Start 03/31/18 at 18:00 Ascorbic Acid (Vitamin C) 500 mg DAILY GTB Last administered on 04/28/18at 09:00; Admin Dose 500 MG; Start 04/01/18 at 09:00 Bisacodyl (Dulcolax Supp) 10 mg DAILY PRN MA CONSTIPATION; Start 03/31/18 at 18:00 Multivit/Ca Carb/ B Cmplx/FA/Prenat (Sofy-Sandoval) 1 tab DAILY GTB Last administered on 04/28/18 09:00; Admin Dose 1 TAB; Start 04/01/18 at 09:00 Zinc Sulfate (Zinc Sulfate) 220 mg DAILY GTB Last administered on 04/28/18 09:00; Admin Dose 220 MG; Start 04/01/18 at 09:00 IV Flush (NS 3 ml) 3 ml PER PROTOCOL IV ; Start 03/31/18 at 18:30 Ondansetron HCl (Zofran Inj) 4 mg Q6H PRN IV NAUSEA AND/OR VOMITING; Start 03/31/18 at 18:30 Acetaminophen (Tylenol Tab) 650 mg Q6H PRN PO PAIN LEVEL 1-3 OR FEVER Last administered on 04/22/18 09:18; Admin Dose 650 MG; Start 03/31/18 at 18:30 Acetaminophen (Tylenol Supp) 650 mg Q6H PRN MA PAIN LEVEL 1-3 OR FEVER Last administered on 04/22/18 00:12; Admin Dose 650 MG; Start 03/31/18 at 18:30 Docusate Sodium (Colace) 100 mg Q12H PRN PO CONSTIPATION; Start 03/31/18 at 18:30 Alteplase, Recombinant (Cathflo (Activase)) 2 mg MAY REPEAT X1 PRN CATHETER IF CATHETER REMAINS OCCULUDED Last administered on 04/03/18 04:24; Admin Dose 2 MG; Start 04/01/18 at 21:00 Collagenase (Santyl) 1 applic DAILY TOP Last administered on 04/28/18 09:00; Admin Dose 1 APPLIC; Start 04/03/18 at 12:00 Morphine Sulfate (morphine) 6 mg Q4H PRN GTB SEVERE PAIN LEVEL 6-10 Last administered on 04/17/18at 23:47; Admin Dose 6 MG; Start 04/04/18 at 23:00 Polyethylene Glycol (Miralax) 17 gm DAILY GTB Last administered on 04/28/18 09:00; Admin Dose 17 GM; Start 04/08/18 at 09:00 Carvedilol (Coreg) 50 mg BID GTB Last administered on 04/28/18 22:06; Admin Dose 50 MG; Start 04/08/18 at 21:00 Lansoprazole (Prevacid) 30 mg HS PO Last administered on 04/28/18 22:04; Admin Dose 30 MG; Start 04/20/18 at 21:00 Fluconazole (Diflucan) 100 mg DAILY PO Last administered on 04/28/18 09:00; Admin Dose 100 MG; Start 04/21/18 at 14:00 Amikacin Sulfate (Amikacin Iv Per Pharmacy) AMIKACIN PER PHARMACY NOTE XX ; Start 04/22/18 at 11:30 Lorazepam (Ativan) 1 mg Q4H PRN IV restless, agitation, anxiety Last administered on 04/28/18at 22:22; Admin Dose 1 MG; Start 04/22/18 at 14:00 Amikacin Sulfate 850 mg/Sodium Chloride 253.4 ml @ 250 mls/hr Q72H IVPB Last administered on 04/27/18at 13:40; Admin Dose 250 MLS/HR; Start 04/27/18 at 13:00 Aspirin (Aspirin) 81 mg DAILY PO Last administered on 04/28/18at 09:00; Admin Dose 81 MG; Start 04/27/18 at 09:00 Doxycycline Hyclate 100 mg/ Sodium Chloride 250 ml @ 250 mls/hr Q12 IVPB Last administered on 04/29/18at 00:33; Admin Dose 250 MLS/HR; Start 04/28/18 at 15:30 QI CHRISTIANSON Apr 29, 2018 07:38
[2018-04-29] MEDS: COLLAGENASE 5 GM (UD JAR) TOP SCH (08:39)
[2018-04-29] MEDS: POLYETHYLENE GLYCOL 17 GM PACKET GTB SCH (08:39)
[2018-04-29] MEDS: BALSAM PERU/CASTOR OIL 60 GM TUBE TOP SCH ×2 (08:39→21:25)
[2018-04-29] MEDS: ASPIRIN 81 MG TAB PO SCH (08:55)
[2018-04-29] MEDS: MULTIVIT/CA CARB/B CMPLX/FA TAB GTB SCH (08:55)
[2018-04-29] MEDS: FLUCONAZOLE 100 MG TAB PO SCH (08:55)
[2018-04-29] MEDS: ASCORBIC ACID 500 MG TAB GTB SCH (08:55)
[2018-04-29] MEDS: ZINC SULFATE 220 MG CAP GTB SCH (08:55)
--- NOTE | 2018-04-29 13:36 | CONS ---
Assessment/Plan Assessment/Plan Hospital Course (Demo Recall) No events, spi, Tm 101.5 Antimicrobials: Amikacin, fluconazole, Doxycycline Indwelling: Trach PEG Schwartz. Microbiology: urine culture + Pseudomonas/C alb Physical examination: Chronically ill-appearing elderly man who is noncommunicative in no distress. Head atraumatic normocephalic sclera nonicteric neck is supple tracheostomy present chest rise symmetrical breath sounds diminished bases heart: S1-S2. Abdomen soft bowel sounds present. Extremities without cyanosis. Skin: Patient has multiple pressure sores he has a dry blood on the right lower lip Assessment: 1. Sepsis secondary to urinary tract infection and HCAP 2. Ongoing fevers, cant r/o malignancy given elevated CA19 and lipase 2. VDRF 3. Dysphagia 4. Chronic encephalopathy 5. History of cardiomyopathy 6. Sacral decub 7. MRSA nares colonization 8. Elevated amylase and lipase of unclear etiology Plan: Clinically unchanged, continue abx, repeat cx's, cxr Consultation Date/Type/Reason Admit Date/Time Mar 31, 2018 at 17:58 Initial Consult Date 04/02/18 Type of Consult id Requesting Provider: TAMARA GRAJEDA MD Date/Time of Note DATE: 04/29/18 TIME: 13:35 Exam/Review of Systems Exam Vitals Vital Signs Date Temp Pulse Resp B/P (MAP) Pulse Ox O2 O2 Flow FiO2 Time Delivery Rate 04/29/18 87 21 100 30 13:00 04/29/18 Mechanical 12:16 Ventilator 04/29/18 98.8 115/62 12:08 (79) Intake and Output 04/28/18 04/28/18 04/29/18 1515:00 23:00 07:00 IntakeIntake Total 1130 ml OutputOutput Total 800 ml BalanceBalance 330 ml Results Result Diagram: 04/29/18 0539 04/28/18 0540 Results 24hrs Laboratory Tests Test 04/29/18 05:39 04/29/18 08:14 White Blood Count 7.5 Red Blood Count 3.01 L Hemoglobin 8.4 #L Hematocrit 26.3 #L Mean Corpuscular Volume 87.4 Mean Corpuscular Hemoglobin 27.9 L Mean Corpuscular Hemoglobin Concent 31.9 L Red Cell Distribution Width 14.7 H Platelet Count 200 Mean Platelet Volume 10.6 H Immature Granulocytes % 0.500 H Neutrophils % 73.8 Lymphocytes % 10.9 L Monocytes % 12.3 H Eosinophils % 2.1 Basophils % 0.4 Nucleated Red Blood Cells % 0.0 Immature Granulocytes # 0.040 H Neutrophils # 5.5 Lymphocytes # 0.8 Monocytes # 0.9 Eosinophils # 0.2 Basophils # 0.0 Nucleated Red Blood Cells # 0.0 Lab Scanned Report BLOOD TRANSFUSION Medications Medication Current Medications Acetaminophen (Tylenol Tab) 1,000 mg Q4 PRN PO MODERATE PAIN LEVEL 4-6 Last administered on 04/07/18 12:14; Admin Dose 1,000 MG; Start 03/31/18 at 18:00 Acetaminophen (Tylenol Tab) 650 mg Q4 PRN GTB MILD PAIN LEVEL 1-3 Last administered on 04/28/18 15:43; Admin Dose 650 MG; Start 03/31/18 at 18:00 Albuterol (Proventil 0.083% (Neb)) 2.5 mg Q3H PRN NEB WHEEZING AND SOB Last administered on 04/22/18 14:23; Admin Dose 2.5 MG; Start 03/31/18 at 18:00 Albuterol (Proventil 0.083% (Neb)) 2.5 mg Q6 PRN NEB WHEEZING AND SOB; Start 03/31/18 at 18:00 Ascorbic Acid (Vitamin C) 500 mg DAILY GTB Last administered on 04/29/18 08:55; Admin Dose 500 MG; Start 04/01/18 at 09:00 Bisacodyl (Dulcolax Supp) 10 mg DAILY PRN ME CONSTIPATION; Start 03/31/18 at 18 :00 Multivit/Ca Carb/ B Cmplx/FA/Prenat (Sofy-Sandoval) 1 tab DAILY GTB Last administered on 04/29/18 08:55; Admin Dose 1 TAB; Start 04/01/18 at 09:00 Zinc Sulfate (Zinc Sulfate) 220 mg DAILY GTB Last administered on 04/29/18 08:55; Admin Dose 220 MG; Start 04/01/18 at 09:00 IV Flush (NS 3 ml) 3 ml PER PROTOCOL IV ; Start 03/31/18 at 18:30 Ondansetron HCl (Zofran Inj) 4 mg Q6H PRN IV NAUSEA AND/OR VOMITING; Start 03/31/18 at 18:30 Acetaminophen (Tylenol Tab) 650 mg Q6H PRN PO PAIN LEVEL 1-3 OR FEVER Last administered on 04/22/18 09:18; Admin Dose 650 MG; Start 03/31/18 at 18:30 Acetaminophen (Tylenol Supp) 650 mg Q6H PRN ME PAIN LEVEL 1-3 OR FEVER Last administered on 04/22/18 00:12; Admin Dose 650 MG; Start 03/31/18 at 18:30 Docusate Sodium (Colace) 100 mg Q12H PRN PO CONSTIPATION; Start 03/31/18 at 18:30 Alteplase, Recombinant (Cathflo (Activase)) 2 mg MAY REPEAT X1 PRN CATHETER IF CATHETER REMAINS OCCULUDED Last administered on 04/03/18 04:24; Admin Dose 2 MG; Start 04/01/18 at 21:00 Collagenase (Santyl) 1 applic DAILY TOP Last administered on 04/28/18 09:00; Admin Dose 1 APPLIC; Start 04/03/18 at 12:00 Morphine Sulfate (morphine) 6 mg Q4H PRN GTB SEVERE PAIN LEVEL 6-10 Last admini stered on 04/17/18 23:47; Admin Dose 6 MG; Start 04/04/18 at 23:00 Polyethylene Glycol (Miralax) 17 gm DAILY GTB Last administered on 04/28/18 09:00; Admin Dose 17 GM; Start 04/08/18 at 09:00 Carvedilol (Coreg) 50 mg BID GTB Last administered on 04/29/18 08:56; Admin Dose 50 MG; Start 04/08/18 at 21:00 Lansoprazole (Prevacid) 30 mg HS PO Last administered on 04/28/18 22:04; Admin Dose 30 MG; Start 04/20/18 at 21:00 Fluconazole (Diflucan) 100 mg DAILY PO Last administered on 04/29/18 08:55; Admin Dose 100 MG; Start 04/21/18 at 14:00 Amikacin Sulfate (Amikacin Iv Per Pharmacy) AMIKACIN PER PHARMACY NOTE XX ; Start 04/22/18 at 11:30 Amikacin Sulfate 850 mg/Sodium Chloride 253.4 ml @ 250 mls/hr Q72H IVPB Last administered on 04/27/18 13:40; Admin Dose 250 MLS/HR; Start 04/27/18 at 13:00 Aspirin (Aspirin) 81 mg DAILY PO Last administered on 04/29/18at 08:55; Admin Dose 81 MG; Start 04/27/18 at 09:00 Doxycycline Hyclate 100 mg/ Sodium Chloride 250 ml @ 250 mls/hr Q12 IVPB Last administered on 04/29/18at 08:55; Admin Dose 250 MLS/HR; Start 04/28/18 at 15:30 RENÉ GARCIA NP Apr 29, 2018 13:36
[2018-04-29] MEDS: ACETAMINOPHEN 500 MG TAB PO PRN ×2 (18:58→21:25)
--- NOTE | 2018-04-29 20:46 | CONS ---
Assessment/Plan Assessment/Plan Hospital Course (Demo Recall) 1. Decubitus pressure ulcers with necrotic debris -Offload -Nutritional optimization -Vitamin C -Short-term zinc -Debridement as needed 2. 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 Dilated cardiomyopathy with congestive heart failure and coronary artery disease with history of hypertension however initially presented with hypotension -Cardiac optimization -Judicious fluid management -Electrolyte optimization 4. Chronic renal disease -Judicious fluid management -Minimize nephrotoxic agents if possible 5. Dysphagia on tube feeds 6. Anemia without evidence of acute blood loss -Monitor 7. Ventilator dependent respiratory failure -Ventilator management and pulmonary toilet 8. Fevers -Workup and treatment in process Thank you very much for consulting me in this patient's care, Consultation Date/Type/Reason Admit Date/Time Mar 31, 2018 at 17:58 Date of Consultation: Apr 29, 2018 Type of Consult General surgical Reason for Consultation Decubitus pressure ulcers with necrotic debris Requesting Provider: TAMARA GRAJEDA MD Date/Time of Note DATE: 04/29/18 TIME: 20:36 Hx of Present Illness Juan Manuel St is a 62-year-old male with significant comorbidities who was admitted to the hospital with hypotension from detention. Patient has history of advanced encephalopathy and VDRF and was unable to give any history b y himself whatsoever. There was no fevers on admission however most recently he has had fevers. No cough. No seizure. No blood per mouth or rectum. He is found to have decubitus pressure ulcers with necrotic wounds. Surgical consult is obtained further evaluation and treatment. 12 point review of system of chart and are negative unless otherwise addressed Past Medical History Dilated cardiomyopathy. Congestive heart failure Coronary artery disease Hypertension however admitted with hypotension Chronic renal disease Chronic encephalopathy. VDRF Dysphagia Anemia. History of alcohol abuse. History of crystal meth abuse Functional quadriplegia UTI history Metabolic acidosis history Home Meds Reported Medications Cran/Vitc/Mannose/Inulin/Brom (Uti-Stat Liquid) 3,875 Mg/30 Ml Liquid, 3875 MG GTB DAILY 03/31/18 Ascorbic Acid* (Vitamin C*) 500 Mg Capsule.sa, 500 MG GTB DAILY, CAP 03/31/18 Zinc Sulfate* (Zinc Sulfate*) 220 Mg Tablet, 220 MG GTB DAILY, TAB 03/31/18 Acetaminophen* (Acetaminophen*) 650 Mg Tablet, 650 MG GTB Q4 PRN for MILD PAIN LEVEL 1-3, #30 TAB AND FEVER 03/31/18 Acetaminophen* (Acetaminophen*) 500 MG Extra Strength Tablet, 1000 MG GTB Q4 PRN for MODERATE PAIN LEVEL 4-6, TAB 03/31/18 Acetaminophen* (Acetaminophen*) 325 Mg Tablet, 650 MG GTB TRACH CHANGE PRN for PAIN, #30 TAB GIVE 30 MIN PRIOR TO CHANGE 03/31/18 Spironolactone* (Aldactone*) 25 Mg Tablet, 25 MG GTB DAILY, #30 TAB 03/31/18 Multivit/Ca Carb/B Cmplx/Fa* (Sofy-Sandoavl*) 1 Tab Tab, 1 TAB GTB DAILY, TAB 03/31/18 Hydrocodone/Acetaminophen (Hankamer 5-325 Tablet) 1 Each Tablet, 1 EACH GTB BID, TAB 03/31/18 Midodrine* (Midodrine*) 5 Mg Tablet, 5 MG GTB BID, TAB HOLD FOR SBP ABOVE 110 03/31/18 Na Phos,M-B/Na Phos,Di-Ba (ENEMA [id number]) 133 Ml Enema, 133 ML RC EVERY TWO DAYS PRN for CONSTIPATION, ENEMA 03/31/18 Bisacodyl (Dulcolax) 10 Mg Supp.rect, 10 MG RC DAILY PRN for CONSTIPATION, SUPP.RECT 03/31/18 Carvedilol* (Carvedilol*) 25 Mg Tablet, 25 MG GTB BID, #60 TAB HOLD FOR SBP BELOW 100 OR HR BELOW 50 03/31/18 Albuterol Sulfate* (Albuterol Sulfate* Neb) 0.083%-3 Ml Neb, 2.5 MG NEB Q6 PRN for WHEEZING AND SOB, #30 VIAL 03/31/18 Albuterol Sulfate* (Albuterol Sulfate* Neb) 0.083%-3 Ml Neb, 2.5 MG NEB Q3H PRN for WHEEZING AND SOB, #30 VIAL 03/31/18 Lactobacillus Acidophilus/Pect (Acidophilus-Pectin Capsule) 1 Each Capsule, 1 EACH GTB DAILY, CAP 03/31/18 Medications Current Medications Acetaminophen (Tylenol Tab) 1,000 mg Q4 PRN PO MODERATE PAIN LEVEL 4-6 Last administered on 2/4/19at 18:58; Admin Dose 1,000 MG; Start 03/31/18 at 18:00 Acetaminophen (Tylenol Tab) 650 mg Q4 PRN GTB MILD PAIN LEVEL 1-3 Last administered on 04/28/18 15:43; Admin Dose 650 MG; Start 03/31/18 at 18:00 Albuterol (Proventil 0.083% (Neb)) 2.5 mg Q3H PRN NEB WHEEZING AND SOB Last administered on 04/22/18 14:23; Admin Dose 2.5 MG; Start 03/31/18 at 18:00 Albuterol (Proventil 0.083% (Neb)) 2.5 mg Q6 PRN NEB WHEEZING AND SOB; Start 03/31/18 at 18:00 Ascorbic Acid (Vitamin C) 500 mg DAILY GTB Last administered on 04/29/18 08:55; Admin Dose 500 MG; Start 04/01/18 at 09:00 Bisacodyl (Dulcolax Supp) 10 mg DAILY PRN [place] CONSTIPATION; Start 03/31/18 at 18:00 Multivit/Ca Carb/ B Cmplx/FA/Prenat (Sofy-Sandoval) 1 tab DAILY GTB Last administered on 04/29/18 08:55; Admin Dose 1 TAB; Start 04/01/18 at 09:00 Zinc Sulfate (Zinc Sulfate) 220 mg DAILY GTB Last administered on 04/29/18 08:55; Admin Dose 220 MG; Start 04/01/18 at 09:00 IV Flush (NS 3 ml) 3 ml PER PROTOCOL IV ; Start 03/31/18 at 18:30 Ondansetron HCl (Zofran Inj) 4 mg Q6H PRN IV NAUSEA AND/OR VOMITING; Start 03/31/18 at 18:30 Acetaminophen (Tylenol Tab) 650 mg Q6H PRN PO PAIN LEVEL 1-3 OR FEVER Last administered on 04/22/18 09:18; Admin Dose 650 MG; Start 03/31/18 at 18:30 Acetaminophen (Tylenol Supp) 650 mg Q6H PRN [place] PAIN LEVEL 1-3 OR FEVER Last administered on 04/22/18 00:12; Admin Dose 650 MG; Start 03/31/18 at 18:30 Docusate Sodium (Colace) 100 mg Q12H PRN PO CONSTIPATION; Start 03/31/18 at 18:30 Alteplase, Recombinant (Cathflo (Activase)) 2 mg MAY REPEAT X1 PRN CATHETER IF CATHETER REMAINS OCCULUDED Last administered on 04/03/18 04:24; Admin Dose 2 MG; Start 04/01/18 at 21:00 Collagenase (Santyl) 1 applic DAILY TOP Last administered on 04/28/18 09:00; Admin Dose 1 APPLIC; Start 04/03/18 at 12:00 Morphine Sulfate (morphine) 6 mg Q4H PRN GTB SEVERE PAIN LEVEL 6-10 Last administered on 04/17/18 23:47; Admin Dose 6 MG; Start 04/04/18 at 23:00 Polyethylene Glycol (Miralax) 17 gm DAILY GTB Last administered on 04/28/18 09:00; Admin Dose 17 GM; Start 04/08/18 at 09:00 Carvedilol (Coreg) 50 mg BID GTB Last administered on 04/29/18 08:56; Admin Dose 50 MG; Start 04/08/18 at 21:00 Lansoprazole (Prevacid) 30 mg HS PO Last administered on 04/28/18 22:04; Admin Dose 30 MG; Start 04/20/18 at 21:00 Fluconazole (Diflucan) 100 mg DAILY PO Last administered on 04/29/18 08:55; Admin Dose 100 MG; Start 04/21/18 at 14:00 Amikacin Sulfate (Amikacin Iv Per Pharmacy) AMIKACIN PER PHARMACY NOTE XX ; Start 04/22/18 at 11:30 Amikacin Sulfate 850 mg/Sodium Chloride 253.4 ml @ 250 mls/hr Q72H IVPB Last administered on 04/27/18 13:40; Admin Dose 250 MLS/HR; Start 04/27/18 at 13:00 Aspirin (Aspirin) 81 mg DAILY PO Last administered on 04/29/18 08:55; Admin Dose 81 MG; Start 04/27/18 at 09:00 Doxycycline Hyclate 100 mg/ Sodium Chloride 250 ml @ 250 mls/hr Q12 IVPB Last administered on 04/29/18 08:55; Admin Dose 250 MLS/HR; Start 04/28/18 at 15:30 Miscellaneous Information (*Rx Drug Level Order Reminder*) AMIKACIN TR LEVEL PRIOR... ONCE ONCE XX ; Start 04/30/18 at 12:00; Stop 04/30/18 at 12:01 Allergies: Coded Allergies: No Known Allergy (Unverified , 04/13/18) Past Surgical History PEG Trach Past Surgical Hx: other (PEG AND TRACHEOSTOMY) Family History Significant Family History: no pertinent family hx Social History No current alcohol drug or tobacco use Alcohol Use: other (HX) Smoking Status: Never smoker Exam/Review of Systems Exam Vitals Vital Signs Date Temp Pulse Resp B/P (MAP) Pulse Ox O2 O2 Flow FiO2 Time Delivery Rate 04/29/18 30 20:00 04/29/18 84 25 99 19:45 04/29/18 100.6 19:34 04/29/18 129/93 16:24 (105) 04/29/18 [employer] 16:15 l Ventilato r Intake and Output 04/28/18 04/28/18 04/29/18 1515:00 23:00 07:00 IntakeIntake Total 1130 ml OutputOutput Total 800 ml BalanceBalance 330 ml Constitutional: No alert, No oriented Psych: confusion; No nl mood/affect Head: normocephalic Eyes: nl conjunctiva, PERRL; No icteric ENMT: nl lips & teeth, mucosa pink and moist Neck: supple, jvd (Minimal), other (Trach in place) Respiratory: No congested cough, No labored breathing, No wheezing Cardiovascular: regular rate and rhythm; No edema Gastrointestinal: soft, non-tender, other (PEG); No distended, No rebound or guarding Genitourinary - Male: nl penis Musculoskeletal: No nl gait and stance, No joint tenderness Extremities: edema; No calf tenderness, No tenderness Neurological: No nl mental status, No nl speech, No nl strength Skin: rash or lesions (Bilateral bladder pressure decubitus wounds with necrotic debris. Lower extremity wounds.), ecchymosis; No nl turgor, No diaphoresis Lymph: No nl lymph nodes Results Result Diagram: 04/29/18 0539 04/28/18 0540 Results 24hrs Laboratory Tests Test 04/29/18 05:39 04/29/18 08:14 White Blood Count 7.5 Red Blood Count 3.01 L Hemoglobin 8.4 #L Hematocrit 26.3 #L Mean Corpuscular Volume 87.4 Mean Corpuscular Hemoglobin 27.9 L Mean Corpuscular Hemoglobin Concent 31.9 L Red Cell Distribution Width 14.7 H Platelet Count 200 Mean Platelet Volume 10.6 H Immature Granulocytes % 0.500 H Neutrophils % 73.8 Lymphocytes % 10.9 L Monocytes % 12.3 H Eosinophils % 2.1 Basophils % 0.4 Nucleated Red Blood Cells % 0.0 Immature Granulocytes # 0.040 H Neutrophils # 5.5 Lymphocytes # 0.8 Monocytes # 0.9 Eosinophils # 0.2 Basophils # 0.0 Nucleated Red Blood Cells # 0.0 Lab Scanned Report BLOOD TRANSFUSION Medications Medication Current Medications Acetaminophen (Tylenol Tab) 1,000 mg Q4 PRN PO MODERATE PAIN LEVEL 4-6 Last administered on 04/29/18 18:58; Admin Dose 1,000 MG; Start 03/31/18 at 18:00 Acetaminophen (Tylenol Tab) 650 mg Q4 PRN GTB MILD PAIN LEVEL 1-3 Last administered on 04/28/18 15:43; Admin Dose 650 MG; Start 03/31/18 at 18:00 Albuterol (Proventil 0.083% (Neb)) 2.5 mg Q3H PRN NEB WHEEZING AND SOB Last administered on 04/22/18 14:23; Admin Dose 2.5 MG; Start 03/31/18 at 18:00 Albuterol (Proventil 0.083% (Neb)) 2.5 mg Q6 PRN NEB WHEEZING AND SOB; Start 03/31/18 at 18:00 Ascorbic Acid (Vitamin C) 500 mg DAILY GTB Last administered on 04/29/18 08:55; Admin Dose 500 MG; Start 04/01/18 at 09:00 Bisacodyl (Dulcolax Supp) 10 mg DAILY PRN [place] CONSTIPATION; Start 03/31/18 at 18:00 Multivit/Ca Carb/ B Cmplx/FA/Prenat (Sofy-Sandoval) 1 tab DAILY GTB Last administered on 04/29/18 08:55; Admin Dose 1 TAB; Start 04/01/18 at 09:00 Zinc Sulfate (Zinc Sulfate) 220 mg DAILY GTB Last administered on 04/29/18 08:55; Admin Dose 220 MG; Start 04/01/18 at 09:00 IV Flush (NS 3 ml) 3 ml PER PROTOCOL IV ; Start 03/31/18 at 18:30 Ondansetron HCl (Zofran Inj) 4 mg Q6H PRN IV NAUSEA AND/OR VOMITING; Start 03/31/18 at 18:30 Acetaminophen (Tylenol Tab) 650 mg Q6H PRN PO PAIN LEVEL 1-3 OR FEVER Last administered on 04/22/18 09:18; Admin Dose 650 MG; Start 03/31/18 at 18:30 Acetaminophen (Tylenol Supp) 650 mg Q6H PRN [place] PAIN LEVEL 1-3 OR FEVER Last administered on 04/22/18 00:12; Admin Dose 650 MG; Start 03/31/18 at 18:30 Docusate Sodium (Colace) 100 mg Q12H PRN PO CONSTIPATION; Start 03/31/18 at 18:30 Alteplase, Recombinant (Cathflo (Activase)) 2 mg MAY REPEAT X1 PRN CATHETER IF CATHETER REMAINS OCCULUDED Last administered on 04/03/18 04:24; Admin Dose 2 MG; Start 04/01/18 at 21:00 Collagenase (Santyl) 1 applic DAILY TOP Last administered on 04/28/18 09:00; Admin Dose 1 APPLIC; Start 04/03/18 at 12:00 Morphine Sulfate (morphine) 6 mg Q4H PRN GTB SEVERE PAIN LEVEL 6-10 Last administered on 04/17/18 23:47; Admin Dose 6 MG; Start 04/04/18 at 23:00 Polyethylene Glycol (Miralax) 17 gm DAILY GTB Last administered on 04/28/18 09:00; Admin Dose 17 GM; Start 04/08/18 at 09:00 Carvedilol (Coreg) 50 mg BID GTB Last administered on 04/29/18 08:56; Admin Dose 50 MG; Start 04/08/18 at 21:00 Lansoprazole (Prevacid) 30 mg HS PO Last administered on 04/28/18 22:04; Admin Dose 30 MG; Start 04/20/18 at 21:00 Fluconazole (Diflucan) 100 mg DAILY PO Last administered on 04/29/18 08:55; Admin Dose 100 MG; Start 04/21/18 at 14:00 Amikacin Sulfate (Amikacin Iv Per Pharmacy) AMIKACIN PER PHARMACY NOTE XX ; Start 04/22/18 at 11:30 Amikacin Sulfate 850 mg/Sodium Chloride 253.4 ml @ 250 mls/hr Q72H IVPB Last administered on 04/27/18at 13:40; Admin Dose 250 MLS/HR; Start 04/27/18 at 13:00 Aspirin (Aspirin) 81 mg DAILY PO Last administered on 04/29/18at 08:55; Admin Dose 81 MG; Start 04/27/18 at 09:00 Doxycycline Hyclate 100 mg/ Sodium Chloride 250 ml @ 250 mls/hr Q12 IVPB Last administered on 04/29/18at 08:55; Admin Dose 250 MLS/HR; Start 04/28/18 at 15:30 Miscellaneous Information (*Rx Drug Level Order Reminder*) AMIKACIN TR LEVEL PRIOR... ONCE ONCE XX ; Start 04/30/18 at 12:00; Stop 04/30/18 at 12:01 ANTONIO CAMPBELL MD Apr 29, 2018 20:46
[2018-04-29] MEDS: LANSOPRAZOLE 30 MG CAP PO SCH (21:25)
--- NOTE | 2018-04-29 21:30 | PN ---
Date/Time of Note Date/Time of Note DATE: 04/29/18 TIME: 21:26 Assessment/Plan VTE Prophylaxis Risk score (from Ns)>0 risk: 7 SCD applied (from Ns): Yes Pharmacological prophylaxis: NA/contraindicated Pharm contraindication: low risk/ambulating Lines/Catheters [facility] Peripheral IV Urinary Cath still in place: Yes Reason Cath still needed: urinary retention Assessment/Plan Hospital Course 62 y/o with # Oral gingival bleeding likely due to dentures, seen by ENT s/p endoscopy # Sepsis with Fevers with hx Pneumonia +UTI and ? Pancreatitis +multiple wounds, ucx+ lisa, wound cx+ MRSA/ pseudomonas, +resp culture +pseudomonas # Blood loss anemia due to oral gingival bleeding # VDRF # CKD with worsening renal failure>resolved # Metabolic acidosis #DILATED CARDIOMYOPATHY # HX ALCOHOL ABUSE # Multiple wounds > decub # Pancreatitis with elevated Lipase # Enterocoltiis on CT # AMS due to Metabolic encephalopathy with . Possible subacute infarct in the left cerebellar hemisphere and cerebellar peduncle> much improved #Ongoing fevers likely secondary to UTI/hcap now improved> again with fevers Plan -On amikacin/doxy again - Dr Melvin consult for decub debridement - Will consult Dr Peña for ERCP with high Lipase and elevated CA 19.9 - Per request > dc ativan - GI prophylaxsis - monitor oral bleeding - labs am - PT/OT/Speech Result Diagram: 04/29/18 0539 04/28/18 0540 Results 24hrs Laboratory Tests Test 04/29/18 05:39 04/29/18 08:14 White Blood Count 7.5 Red Blood Count 3.01 L Hemoglobin 8.4 #L Hematocrit 26.3 #L Mean Corpuscular Volume 87.4 Mean Corpuscular Hemoglobin 27.9 L Mean Corpuscular Hemoglobin Concent 31.9 L Red Cell Distribution Width 14.7 H Platelet Count 200 Mean Platelet Volume 10.6 H Immature Granulocytes % 0.500 H Neutrophils % 73.8 Lymphocytes % 10.9 L Monocytes % 12.3 H Eosinophils % 2.1 Basophils % 0.4 Nucleated Red Blood Cells % 0.0 Immature Granulocytes # 0.040 H Neutrophils # 5.5 Lymphocytes # 0.8 Monocytes # 0.9 Eosinophils # 0.2 Basophils # 0.0 Nucleated Red Blood Cells # 0.0 Lab Scanned Report BLOOD TRANSFUSION Subjective 24 Hr Interval Summary Free Text/Dictation Continue to have fevers lethargic Exam/Review of Systems Exam Vitals Vital Signs Date Temp Pulse Resp B/P (MAP) Pulse Ox O2 O2 Flow FiO2 Time Delivery Rate 04/29/18 30 20:00 04/29/18 84 25 99 19:45 04/29/18 100.6 19:34 04/29/18 129/93 16:24 (105) 04/29/18 [employer] 16:15 l Ventilato r Intake and Output 04/28/18 04/28/18 04/29/18 1515:00 23:00 07:00 IntakeIntake Total 1130 ml OutputOutput Total 800 ml BalanceBalance 330 ml Exam Trach oral bleeding stopped neck: supple Respiratory: clear to auscultation Cardiovascular: regular rate and rhythm Gastrointestinal: soft, bowel sounds (+) Extremities: No edema +decub ulcers Results Results 24hrs Laboratory Tests Test 04/29/18 05:39 04/29/18 08:14 White Blood Count 7.5 Red Blood Count 3.01 L Hemoglobin 8.4 #L Hematocrit 26.3 #L Mean Corpuscular Volume 87.4 Mean Corpuscular Hemoglobin 27.9 L Mean Corpuscular Hemoglobin Concent 31.9 L Red Cell Distribution Width 14.7 H Platelet Count 200 Mean Platelet Volume 10.6 H Immature Granulocytes % 0.500 H Neutrophils % 73.8 Lymphocytes % 10.9 L Monocytes % 12.3 H Eosinophils % 2.1 Basophils % 0.4 Nucleated Red Blood Cells % 0.0 Immature Granulocytes # 0.040 H Neutrophils # 5.5 Lymphocytes # 0.8 Monocytes # 0.9 Eosinophils # 0.2 Basophils # 0.0 Nucleated Red Blood Cells # 0.0 Lab Scanned Report BLOOD TRANSFUSION Medications Medication Current Medications Acetaminophen (Tylenol Tab) 1,000 mg Q4 PRN PO MODERATE PAIN LEVEL 4-6 Last administered on 04/29/18at 18:58; Admin Dose 1,000 MG; Start 03/31/18 at 18:00 Acetaminophen (Tylenol Tab) 650 mg Q4 PRN GTB MILD PAIN LEVEL 1-3 Last administered on 04/28/18at 15:43; Admin Dose 650 MG; Start 03/31/18 at 18:00 Albuterol (Proventil 0.083% (Neb)) 2.5 mg Q3H PRN NEB WHEEZING AND SOB Last administered on 04/22/18 14:23; Admin Dose 2.5 MG; Start 03/31/18 at 18:00 Albuterol (Proventil 0.083% (Neb)) 2.5 mg Q6 PRN NEB WHEEZING AND SOB; Start 03/31/18 at 18:00 Ascorbic Acid (Vitamin C) 500 mg DAILY GTB Last administered on 04/29/18 08:55; Admin Dose 500 MG; Start 04/01/18 at 09:00 Bisacodyl (Dulcolax Supp) 10 mg DAILY PRN [place] CONSTIPATION; Start 03/31/18 at 18:00 Multivit/Ca Carb/ B Cmplx/FA/Prenat (Sofy-Sandoval) 1 tab DAILY GTB Last administered on 04/29/18 08:55; Admin Dose 1 TAB; Start 04/01/18 at 09:00 Zinc Sulfate (Zinc Sulfate) 220 mg DAILY GTB Last administered on 04/29/18 08:55; Admin Dose 220 MG; Start 04/01/18 at 09:00 IV Flush (NS 3 ml) 3 ml PER PROTOCOL IV ; Start 03/31/18 at 18:30 Ondansetron HCl (Zofran Inj) 4 mg Q6H PRN IV NAUSEA AND/OR VOMITING; Start 03/31/18 at 18:30 Acetaminophen (Tylenol Tab) 650 mg Q6H PRN PO PAIN LEVEL 1-3 OR FEVER Last administered on 04/22/18 09:18; Admin Dose 650 MG; Start 03/31/18 at 18:30 Acetaminophen (Tylenol Supp) 650 mg Q6H PRN MS PAIN LEVEL 1-3 OR FEVER Last administered on 04/22/18 00:12; Admin Dose 650 MG; Start 03/31/18 at 18:30 Docusate Sodium (Colace) 100 mg Q12H PRN PO CONSTIPATION; Start 03/31/18 at 18:30 Alteplase, Recombinant (Cathflo (Activase)) 2 mg MAY REPEAT X1 PRN CATHETER IF CATHETER REMAINS OCCULUDED Last administered on 04/03/18 04:24; Admin Dose 2 MG; Start 04/01/18 at 21:00 Collagenase (Santyl) 1 applic DAILY TOP Last administered on 2/3/19at 09:00; Admin Dose 1 APPLIC; Start 04/03/18 at 12:00 Morphine Sulfate (morphine) 6 mg Q4H PRN GTB SEVERE PAIN LEVEL 6-10 Last administered on 04/17/18 23:47; Admin Dose 6 MG; Start 04/04/18 at 23:00 Polyethylene Glycol (Miralax) 17 gm DAILY GTB Last administered on 04/28/18 09:00; Admin Dose 17 GM; Start 04/08/18 at 09:00 Carvedilol (Coreg) 50 mg BID GTB Last administered on 04/29/18 08:56; Admin Dose 50 MG; Start 04/08/18 at 21:00 Lansoprazole (Prevacid) 30 mg HS PO Last administered on 04/28/18 22:04; Admin Dose 30 MG; Start 04/20/18 at 21:00 Fluconazole (Diflucan) 100 mg DAILY PO Last administered on 04/29/18 08:55; Admin Dose 100 MG; Start 04/21/18 at 14:00 Amikacin Sulfate (Amikacin Iv Per Pharmacy) AMIKACIN PER PHARMACY NOTE XX ; Start 04/22/18 at 11:30 Amikacin Sulfate 850 mg/Sodium Chloride 253.4 ml @ 250 mls/hr Q72H IVPB Last administered on 04/27/18 13:40; Admin Dose 250 MLS/HR; Start 04/27/18 at 13:00 Aspirin (Aspirin) 81 mg DAILY PO Last administered on 04/29/18 08:55; Admin Dose 81 MG; Start 04/27/18 at 09:00 Doxycycline Hyclate 100 mg/ Sodium Chloride 250 ml @ 250 mls/hr Q12 IVPB Last administered on 04/29/18 08:55; Admin Dose 250 MLS/HR; Start 04/28/18 at 15:30 Miscellaneous Information (*Rx Drug Level Order Reminder*) AMIKACIN TR LEVEL PRIOR... ONCE ONCE XX ; Start 04/30/18 at 12:00; Stop 04/30/18 at 12:01 TAMARA GRAJEDA MD Apr 29, 2018 21:30
[2018-04-29] MEDS ORDERED: SOD CHLORIDE 0.9% 500 ML IV ONE (23:30)
[2018-04-30] VITALS (32 sets, daily range): BP systolic 94–135; BP diastolic 64–96; PULSE 68–98; RESP 17–30
[2018-04-30] MEDS: ALBUTEROL 0.083% (NEB) 2.5 MG/3 ML AMP NEB PRN (02:28)
[2018-04-30] MEDS ORDERED: EPHEDrine SULFATE 50 MG/5 ML SYG ONE (07:00)
[2018-04-30] MEDS ORDERED: SEVOFLURANE 15 MIN ONE (07:00)
[2018-04-30] MEDS: ACETAMINOPHEN 650 MG SUPP PR PRN (07:36)
[2018-04-30] MEDS: MULTIVIT/CA CARB/B CMPLX/FA TAB GTB SCH (07:37)
[2018-04-30] MEDS: POLYETHYLENE GLYCOL 17 GM PACKET GTB SCH (07:37)
[2018-04-30] MEDS: ZINC SULFATE 220 MG CAP GTB SCH (07:37)
[2018-04-30] MEDS: FLUCONAZOLE 100 MG TAB PO SCH ×2 (07:37→09:37)
[2018-04-30] MEDS: ASCORBIC ACID 500 MG TAB GTB SCH (07:37)
[2018-04-30] MEDS: ASPIRIN 81 MG TAB PO SCH (07:37)
[2018-04-30] MEDS: COLLAGENASE 5 GM (UD JAR) TOP SCH (07:38)
[2018-04-30] MEDS: BALSAM PERU/CASTOR OIL 60 GM TUBE TOP SCH ×2 (07:38→21:13)
--- NOTE | 2018-04-30 08:38 | CONS ---
Assessment/Plan Assessment/Plan Hospital Course (Demo Recall) 62 male with excessively bleeding gingival tissue and severe anemia 1. Severe acute on chronic anemia likely due to blood loss from gingival bleeding -over weekend drop in hgb to 6.9, s/p 2 units PRBC hgb up to 8.3 3. Chronic liver disease, alcohol related 4. Mild coagulopathy 5. Elevated lipase with mildly elevated CA 19-9 -on CT scan pancreas is normal -lipid panel wnl -CBD 6mm, LFT wnl -Radiology will not do MRCP because of vent 6. 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 Encephalopathy secondary to anoxic brain injury 8. H/o duodenal ulcer 9. Complex UTI with lisa albicans, s/p diflucan Plan: ERCP this afternoon, INR 1.18, Consent signed. No anti coagulants given today. Tmax 102. hemodynamically stable. Pt examined and plan of care discussed with Dr. Peña Consultation Date/Type/Reason Admit Date/Time Mar 31, 2018 at 17:58 Initial Consult Date 04/02/18 Requesting Provider: TAMARA GRAJEDA MD Date/Time of Note DATE: 04/30/18 TIME: 08:34 Exam/Review of Systems Exam Vitals Vital Signs Date Temp Pulse Resp B/P (MAP) Pulse Ox O2 O2 Flow FiO2 Time Delivery Rate 04/30/18 100.3 08:25 04/30/18 [employer] 07:41 l Ventilato r 04/30/18 96 20 132/81 99 07:22 (98) 04/30/18 30 06:01 Intake and Output 04/29/18 04/29/18 04/30/18 1515:00 23:00 07:00 IntakeIntake Total 250 ml 1230 ml 250 ml OutputOutput Total 1400 ml 950 ml BalanceBalance 250 ml -170 ml -700 ml Results Result Diagram: 04/29/18 0539 04/28/18 0540 Results 24hrs Laboratory Tests Test 04/29/18 23:06 04/29/18 23:30 Bedside Glucose 117 Lactic Acid Level 0.9 Medications Medication Current Medications Acetaminophen (Tylenol Tab) 1,000 mg Q4 PRN PO MODERATE PAIN LEVEL 4-6 Last administered on 04/29/18at 21:25; Admin Dose 1,000 MG; Start 03/31/18 at 18:00 Acetaminophen (Tylenol Tab) 650 mg Q4 PRN GTB MILD PAIN LEVEL 1-3 Last administered on 04/28/18 15:43; Admin Dose 650 MG; Start 03/31/18 at 18:00 Albuterol (Proventil 0.083% (Neb)) 2.5 mg Q3H PRN NEB WHEEZING AND SOB Last administered on 04/30/18 02:28; Admin Dose 2.5 MG; Start 03/31/18 at 18:00 Albuterol (Proventil 0.083% (Neb)) 2.5 mg Q6 PRN NEB WHEEZING AND SOB; Start 03/31/18 at 18:00 Ascorbic Acid (Vitamin C) 500 mg DAILY GTB Last administered on 04/29/18 08:55; Admin Dose 500 MG; Start 04/01/18 at 09:00 Bisacodyl (Dulcolax Supp) 10 mg DAILY PRN [place] CONSTIPATION; Start 03/31/18 at 18:00 Multivit/Ca Carb/ B Cmplx/FA/Prenat (Sofy-Sandoval) 1 tab DAILY GTB Last administered on 04/29/18 08:55; Admin Dose 1 TAB; Start 04/01/18 at 09:00 Zinc Sulfate (Zinc Sulfate) 220 mg DAILY GTB Last administered on 04/29/18 08 :55; Admin Dose 220 MG; Start 04/01/18 at 09:00 IV Flush (NS 3 ml) 3 ml PER PROTOCOL IV ; Start 03/31/18 at 18:30 Ondansetron HCl (Zofran Inj) 4 mg Q6H PRN IV NAUSEA AND/OR VOMITING; Start 03/31/18 at 18:30 Acetaminophen (Tylenol Tab) 650 mg Q6H PRN PO PAIN LEVEL 1-3 OR FEVER Last administered on 04/22/18 09:18; Admin Dose 650 MG; Start 03/31/18 at 18:30 Acetaminophen (Tylenol Supp) 650 mg Q6H PRN [place] PAIN LEVEL 1-3 OR FEVER Last administered on 04/30/18 07:36; Admin Dose 650 MG; Start 03/31/18 at 18:30 Docusate Sodium (Colace) 100 mg Q12H PRN PO CONSTIPATION; Start 03/31/18 at 18:30 Alteplase, Recombinant (Cathflo (Activase)) 2 mg MAY REPEAT X1 PRN CATHETER IF CATHETER REMAINS OCCULUDED Last administered on 04/03/18 04:24; Admin Dose 2 MG; Start 04/01/18 at 21:00 Collagenase (Santyl) 1 applic DAILY TOP Last administered on 04/28/18 09:00; Admin Dose 1 APPLIC; Start 04/03/18 at 12:00 Morphine Sulfate (morphine) 6 mg Q4H PRN GTB SEVERE PAIN LEVEL 6-10 Last administered on 04/17/18 23:47; Admin Dose 6 MG; Start 04/04/18 at 23:00 Polyethylene Glycol (Miralax) 17 gm DAILY GTB Last administered on 04/28/18 09:00; Admin Dose 17 GM; Start 04/08/18 at 09:00 Carvedilol (Coreg) 50 mg BID GTB Last administered on 04/29/18 08:56; Admin Dose 50 MG; Start 04/08/18 at 21:00 Lansoprazole (Prevacid) 30 mg HS PO Last administered on 04/29/18 21:25; Admin Dose 30 MG; Start 04/20/18 at 21:00 Fluconazole (Diflucan) 100 mg DAILY PO Last administered on 04/29/18 08:55; Admin Dose 100 MG; Start 04/21/18 at 14:00 Amikacin Sulfate (Amikacin Iv Per Pharmacy) AMIKACIN PER PHARMACY NOTE XX ; Start 04/22/18 at 11:30 Amikacin Sulfate 850 mg/Sodium Chloride 253.4 ml @ 250 mls/hr Q72H IVPB Last administered on 04/27/18 13:40; Admin Dose 250 MLS/HR; Start 04/27/18 at 13:00 Aspirin (Aspirin) 81 mg DAILY PO Last administered on 04/29/18 08:55; Admin Dose 81 MG; Start 04/27/18 at 09:00 Doxycycline Hyclate 100 mg/ Sodium Chloride 250 ml @ 250 mls/hr Q12 IVPB Last administered on 04/29/18 21:30; Admin Dose 250 MLS/HR; Start 04/28/18 at 15:30 Miscellaneous Information (*Rx Drug Level Order Reminder*) AMIKACIN TR LEVEL PRIOR... ONCE ONCE XX ; Start 04/30/18 at 12:00; Stop 04/30/18 at 12:01 QI CHRISTIANSON Apr 30, 2018 08:38
[2018-04-30] MEDS: DOXYCYCLINE 100 MG in SOD CHLORIDE 0.9% 250 ML IVPB SCH ×2 (09:37→21:12)
[2018-04-30] MEDS ORDERED: LIDOCAINE 1%/EPI (MDV) 50 ML INJ INJ ONE (10:00)
[2018-04-30] MEDS ORDERED: MAGNESIUM SULFATE 2 GM/50 ML 50 ML IVPB ONE (10:30)
[2018-04-30] MEDS ORDERED: LIDOCAINE 1%/EPI (1:100,000) (MDV) 20 ML INJ SCH ×3 (11:00→12:30)
[2018-04-30] MEDS ORDERED: SILVER NITRATE SWAB TOP ONE (11:00)
[2018-04-30] MEDS ORDERED: LIDOCAINE 1%/EPI 30 ML INJ INJ SCH (12:00)
--- NOTE | 2018-04-30 12:09 | PN ---
Date/Time of Note Date/Time of Note DATE: 04/30/18 TIME: 12:04 Assessment/Plan Lines/Catheters IV Catheter Type (from [facility]): Saline Lock Schwartz in Place (from [facility]): Yes Assessment/Plan Chief Complaint/Hosp Course 1. Decubitus pressure ulcers with necrotic debris -Offload -Nutritional optimization -Vitamin C -Short-term zinc -Debridement today 2. 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 Dilated cardiomyopathy with congestive heart failure and coronary artery disease with history of hypertension however initially presented with hypotension -Cardiac optimization -Judicious fluid management -Electrolyte optimization 4. Chronic renal disease -Judicious fluid management -Minimize nephrotoxic agents if possible 5. Dysphagia on tube feeds 6. Anemia: egd today -Monitor 7. Ventilator dependent respiratory failure -Ventilator management and pulmonary toilet 8. Fevers -Workup and treatment in process Thank you. Patient seen and examined in collaboration with Dr. Chet Melvin. Subjective 24 Hr Interval Summary Fever. No labored breathing, congested cough, arrhythmia, vomiting, hematuria. Pending EGD today. Exam/Review of Systems Vital Signs Vitals Vital Signs Date Temp Pulse Resp B/P (MAP) Pulse Ox O2 O2 Flow FiO2 Time Delivery Rate 04/30/18 30 08:33 04/30/18 100.3 08:25 04/30/18 91 08:01 04/30/18 Mechanica 07:41 l Ventilato r 04/30/18 20 132/81 99 07:22 (98) Intake and Output 04/29/18 04/29/18 04/30/18 1515:00 23:00 07:00 IntakeIntake Total 250 ml 1230 ml 250 ml OutputOutput Total 1400 ml 950 ml BalanceBalance 250 ml -170 ml -700 ml Exam Free Text/Dictation Constitutional: No alert, No oriented Psych: confusion; No nl mood/affect Head: normocephalic Eyes: nl conjunctiva, PERRL; No icteric ENMT: nl lips & teeth, mucosa pink and dry; dried blood Neck: supple, jvd (Minimal), other (Trach in place) Respiratory: No congested cough, No labored breathing, No wheezing Cardiovascular: regular rate and rhythm; No edema Gastrointestinal: soft, non-tender, other (PEG); No distended, No rebound or guarding Genitourinary - Male: nl penis Musculoskeletal: No nl gait and stance, No joint tenderness Extremities: edema; No calf tenderness, No tenderness Neurological: No nl mental status, No nl speech, No nl strength Skin: rash or lesions (Bilateral bladder pressure decubitus wounds with necrotic debris. Lower extremity wounds.), ecchymosis; No nl turgor, No diaphoresis Lymph: No nl lymph nodes Results Result Diagram: 04/30/18 0844 04/30/18 0844 AURE ENRIQUEZ NP Apr 30, 2018 12:09
--- NOTE | 2018-04-30 12:19 | PN ---
Date/Time of Note Date/Time of Note DATE: 04/30/18 TIME: 12:18 Assessment/Plan VTE Prophylaxis Risk score (from Ns)>0 risk: 7 SCD applied (from Ns): Yes Pharmacological prophylaxis: NA/contraindicated Pharm contraindication: low risk/ambulating Lines/Catheters IV Catheter Type (from [facility]): Saline Lock Urinary Cath still in place: Yes Reason Cath still needed: urinary retention Assessment/Plan Hospital Course 62 y/o with # Oral gingival bleeding likely due to dentures, seen by ENT s/p endoscopy # Sepsis with Fevers with hx Pneumonia +UTI and ? Pancreatitis +multiple wounds, ucx+ lisa, wound cx+ MRSA/ pseudomonas, +resp culture +pseudomonas # Blood loss anemia due to oral gingival bleeding # VDRF # CKD with worsening renal failure>resolved # Metabolic acidosis #DILATED CARDIOMYOPATHY # HX ALCOHOL ABUSE # Multiple wounds > decub # Pancreatitis with elevated Lipase # Enterocoltiis on CT # AMS due to Metabolic encephalopathy with . Possible subacute infarct in the left cerebellar hemisphere and cerebellar peduncle> much improved #Ongoing fevers likely secondary to UTI/hcap now improved> again with fevers Plan -On amikacin/doxy / fluonazole - Dr Melvin consult for decub debridement> today - ERCP - Still ongoing fevers - 1:1 sitte - vtac> cards consult> replete Mg - Per request > dc ativan - GI prophylaxsis - monitor oral bleeding - labs am - PT/OT/Speech Result Diagram: 04/30/18 0844 04/30/18 0844 Results 24hrs Laboratory Tests Test 04/29/18 23:06 04/29/18 23:30 04/30/18 08:44 Bedside Glucose 117 Lactic Acid Level 0.9 White Blood Count 7.9 Red Blood Count 3.00 L Hemoglobin 8.5 L Hematocrit 26.5 L Mean Corpuscular Volume 88.3 Mean Corpuscular Hemoglobin 28.3 L Mean Corpuscular Hemoglobin Concent 32.1 Red Cell Distribution Width 15.2 H Platelet Count 213 Mean Platelet Volume 10.8 H Immature Granulocytes % 0.600 H Neutrophils % 80.6 H Segmented Neutrophils % (Manual) 69 Band Neutrophils % (Manual) 13 H Lymphocytes % 8.0 L Lymphocytes % (Manual) 9 L Monocytes % 8.9 Monocytes % (Manual) 8 Eosinophils % 1.5 Basophils % 0.4 Metamyelocytes % (manual) 1 H Nucleated Red Blood Cells % 1 H Immature Granulocytes # 0.050 H Neutrophils # 6.4 Neutrophils # (Manual) 5.5 Band Neutrophils # 1.0 H Lymphocytes (Manual) 0.7 L Lymphocytes # 0.6 L Monocytes # 0.7 Monocytes # (Manual) 0.6 Eosinophils # 0.1 Basophils # 0.0 Metamyelocytes # 0.0 Nucleated Red Blood Cells # 0.0 Platelet Estimate NORMAL Polychromasia 1+ Poikilocytosis 1+ Anisocytosis 1+ Microcytosis 1+ Sodium Level 139 Potassium Level 4.7 Chloride Level 112 H Carbon Dioxide Level 21 Anion Gap 6 Blood Urea Nitrogen 46 H Creatinine 1.03 Est Glomerular Filtrat Rate mL/min > 60 Glucose Level 85 Calcium Level 8.3 L Phosphorus Level 3.5 Magnesium Level 1.9 Subjective 24 Hr Interval Summary Free Text/Dictation vtac non sustained today debridement today ERCP ? Spoke to at bed side Exam/Review of Systems Exam Vitals Vital Signs Date Temp Pulse Resp B/P (MAP) Pulse Ox O2 O2 Flow FiO2 Time Delivery Rate 04/30/18 30 08:33 04/30/18 100.3 08:25 04/30/18 91 08:01 04/30/18 Mechanica 07:41 l Ventilato r 04/30/18 20 132/81 99 07:22 (98) Intake and Output 04/29/18 04/29/18 04/30/18 1515:00 23:00 07:00 IntakeIntake Total 250 ml 1230 ml 250 ml OutputOutput Total 1400 ml 950 ml BalanceBalance 250 ml -170 ml -700 ml Exam on restraints Head: normocephalic Eyes: nl conjunctiva ENMT: other (tracheostomy) Neck: supple Respiratory: diminished breath sounds Cardiovascular: regular rate and rhythm Gastrointestinal: other (G tube) Results Results 24hrs Laboratory Tests Test 04/29/18 23:06 04/29/18 23:30 04/30/18 08:44 Bedside Glucose 117 Lactic Acid Level 0.9 White Blood Count 7.9 Red Blood Count 3.00 L Hemoglobin 8.5 L Hematocrit 26.5 L Mean Corpuscular Volume 88.3 Mean Corpuscular Hemoglobin 28.3 L Mean Corpuscular Hemoglobin Concent 32.1 Red Cell Distribution Width 15.2 H Platelet Count 213 Mean Platelet Volume 10.8 H Immature Granulocytes % 0.600 H Neutrophils % 80.6 H Segmented Neutrophils % (Manual) 69 Band Neutrophils % (Manual) 13 H Lymphocytes % 8.0 L Lymphocytes % (Manual) 9 L Monocytes % 8.9 Monocytes % (Manual) 8 Eosinophils % 1.5 Basophils % 0.4 Metamyelocytes % (manual) 1 H Nucleated Red Blood Cells % 1 H Immature Granulocytes # 0.050 H Neutrophils # 6.4 Neutrophils # (Manual) 5.5 Band Neutrophils # 1.0 H Lymphocytes (Manual) 0.7 L Lymphocytes # 0.6 L Monocytes # 0.7 Monocytes # (Manual) 0.6 Eosinophils # 0.1 Basophils # 0.0 Metamyelocytes # 0.0 Nucleated Red Blood Cells # 0.0 Platelet Estimate NORMAL Polychromasia 1+ Poikilocytosis 1+ Anisocytosis 1+ Microcytosis 1+ Sodium Level 139 Potassium Level 4.7 Chloride Level 112 H Carbon Dioxide Level 21 Anion Gap 6 Blood Urea Nitrogen 46 H Creatinine 1.03 Est Glomerular Filtrat Rate mL/min > 60 Glucose Level 85 Calcium Level 8.3 L Phosphorus Level 3.5 Magnesium Level 1.9 Medications Medication Current Medications Acetaminophen (Tylenol Tab) 1,000 mg Q4 PRN PO MODERATE PAIN LEVEL 4-6 Last administered on 04/29/18at 21:25; Admin Dose 1,000 MG; Start 03/31/18 at 18:00 Acetaminophen (Tylenol Tab) 650 mg Q4 PRN GTB MILD PAIN LEVEL 1-3 Last administered on 04/28/18at 15:43; Admin Dose 650 MG; Start 03/31/18 at 18:00 Albuterol (Proventil 0.083% (Neb)) 2.5 mg Q3H PRN NEB WHEEZING AND SOB Last administered on 04/30/18 02:28; Admin Dose 2.5 MG; Start 03/31/18 at 18:00 Albuterol (Proventil 0.083% (Neb)) 2.5 mg Q6 PRN NEB WHEEZING AND SOB; Start 03/31/18 at 18:00 Ascorbic Acid (Vitamin C) 500 mg DAILY GTB Last administered on 04/29/18at 08:55; Admin Dose 500 MG; Start 04/01/18 at 09:00 Bisacodyl (Dulcolax Supp) 10 mg DAILY PRN [place] CONSTIPATION; Start 03/31/18 at 18:00 Multivit/Ca Carb/ B Cmplx/FA/Prenat (Sofy-Sandoval) 1 tab DAILY GTB Last administered on 04/29/18 08:55; Admin Dose 1 TAB; Start 04/01/18 at 09:00 Zinc Sulfate (Zinc Sulfate) 220 mg DAILY GTB Last administered on 04/29/18 08:55; Admin Dose 220 MG; Start 04/01/18 at 09:00 IV Flush (NS 3 ml) 3 ml PER PROTOCOL IV ; Start 03/31/18 at 18:30 Ondansetron HCl (Zofran Inj) 4 mg Q6H PRN IV NAUSEA AND/OR VOMITING; Start 03/31/18 at 18:30 Acetaminophen (Tylenol Tab) 650 mg Q6H PRN PO PAIN LEVEL 1-3 OR FEVER Last administered on 04/22/18 09:18; Admin Dose 650 MG; Start 03/31/18 at 18:30 Acetaminophen (Tylenol Supp) 650 mg Q6H PRN [place] PAIN LEVEL 1-3 OR FEVER Last administered on 04/30/18 07:36; Admin Dose 650 MG; Start 03/31/18 at 18:30 Docusate Sodium (Colace) 100 mg Q12H PRN PO CONSTIPATION; Start 03/31/18 at 18:30 Alteplase, Recombinant (Cathflo (Activase)) 2 mg MAY REPEAT X1 PRN CATHETER IF CATHETER REMAINS OCCULUDED Last administered on 04/03/18 04:24; Admin Dose 2 MG; Start 04/01/18 at 21:00 Collagenase (Santyl) 1 applic DAILY TOP Last administered on 04/28/18 09:00; Admin Dose 1 APPLIC; Start 04/03/18 at 12:00 Morphine Sulfate (morphine) 6 mg Q4H PRN GTB SEVERE PAIN LEVEL 6-10 Last administered on 04/17/18 23:47; Admin Dose 6 MG; Start 04/04/18 at 23:00 Polyethylene Glycol (Miralax) 17 gm DAILY GTB Last administered on 04/28/18 09:00; Admin Dose 17 GM; Start 04/08/18 at 09:00 Carvedilol (Coreg) 50 mg BID GTB Last administered on 04/30/18 09:38; Admin Dose 50 MG; Start 04/08/18 at 21:00 Lansoprazole (Prevacid) 30 mg HS PO Last administered on 04/29/18at 21:25; Admin Dose 30 MG; Start 04/20/18 at 21:00 Fluconazole (Diflucan) 100 mg DAILY PO Last administered on 04/30/18at 09:37; Admin Dose 100 MG; Start 04/21/18 at 14:00 Amikacin Sulfate (Amikacin Iv Per Pharmacy) AMIKACIN PER PHARMACY NOTE XX ; Start 04/22/18 at 11:30 Amikacin Sulfate 850 mg/Sodium Chloride 253.4 ml @ 250 mls/hr Q72H IVPB Last administered on 04/27/18 13:40; Admin Dose 250 MLS/HR; Start 04/27/18 at 13:00 Aspirin (Aspirin) 81 mg DAILY PO Last administered on 04/29/18 08:55; Admin Dose 81 MG; Start 04/27/18 at 09:00 Doxycycline Hyclate 100 mg/ Sodium Chloride 250 ml @ 250 mls/hr Q12 IVPB Last administered on 04/30/18at 09:37; Admin Dose 250 MLS/HR; Start 04/28/18 at 15:30 Magnesium Sulfate 50 ml @ 25 mls/hr ONCE ONCE IVPB ; Start 04/30/18 at 10:30; Stop 04/30/18 at 12:29 Lidocaine/ Epinephrine (Xylocaine 1%/ Epi (Mdv) 20 ml) 40 ml ONCE INJ ; Start 04/30/18 at 12:30; Stop 04/30/18 at 16:00 TAMARA GRAJEDA MD Apr 30, 2018 12:18
--- NOTE | 2018-04-30 14:48 | CONS ---
Assessment/Plan Assessment/Plan Hospital Course (Demo Recall) Spiking fevers, in no distress, lethargic Antimicrobials: Amikacin, fluconazole, Doxycycline Indwelling: Trach PEG Schwartz. Microbiology: urine culture + Pseudomonas/C alb Physical examination: Chronically ill-appearing elderly man who is noncommunicative in no distress. Head atraumatic normocephalic sclera nonicteric neck is supple tracheostomy present chest rise symmetrical breath sounds diminished bases heart: S1-S2. Abdomen soft bowel sounds present. Extremities without cyanosis. Skin: Patient has multiple pressure sores he has a dry blood on the right lower lip Assessment: 1. Sepsis secondary to urinary tract infection and HCAP 2. Ongoing fevers, cant r/o malignancy given elevated CA19 and lipase 2. VDRF 3. Dysphagia 4. Chronic encephalopathy 5. History of cardiomyopathy 6. Sacral decub 7. MRSA nares colonization 8. Elevated amylase and lipase of unclear etiology Plan: Clinically unchanged, repeat cx's negative, scheduled far sacral wound debridement and ERCP, continue abx Consultation Date/Type/Reason Admit Date/Time Mar 31, 2018 at 17:58 Initial Consult Date 04/02/18 Type of Consult id Requesting Provider: TAMARA GRAJEDA MD Date/Time of Note DATE: 04/30/18 TIME: 14:47 Exam/Review of Systems Exam Vitals Vital Signs Date Temp Pulse Resp B/P (MAP) Pulse Ox O2 O2 Flow FiO2 Time Delivery Rate 04/30/18 Mechanica 13:27 l Ventilato r 04/30/18 30 13:26 04/30/18 76 12:01 04/30/18 100.3 08:25 04/30/18 20 132/81 99 07:22 (98) Intake and Output 04/29/18 04/29/18 04/30/18 1515:00 23:00 07:00 IntakeIntake Total 250 ml 1230 ml 250 ml OutputOutput Total 1400 ml 950 ml BalanceBalance 250 ml -170 ml -700 ml Results Result Diagram: 04/30/18 0844 04/30/18 0844 Results 24hrs Laboratory Tests Test 04/29/18 23:06 04/29/18 23:30 04/30/18 08:44 Bedside Glucose 117 Lactic Acid Level 0.9 White Blood Count 7.9 Red Blood Count 3.00 L Hemoglobin 8.5 L Hematocrit 26.5 L Mean Corpuscular Volume 88.3 Mean Corpuscular Hemoglobin 28.3 L Mean Corpuscular Hemoglobin Concent 32.1 Red Cell Distribution Width 15.2 H Platelet Count 213 Mean Platelet Volume 10.8 H Immature Granulocytes % 0.600 H Neutrophils % 80.6 H Segmented Neutrophils % (Manual) 69 Band Neutrophils % (Manual) 13 H Lymphocytes % 8.0 L Lymphocytes % (Manual) 9 L Monocytes % 8.9 Monocytes % (Manual) 8 Eosinophils % 1.5 Basophils % 0.4 Metamyelocytes % (manual) 1 H Nucleated Red Blood Cells % 1 H Immature Granulocytes # 0.050 H Neutrophils # 6.4 Neutrophils # (Manual) 5.5 Band Neutrophils # 1.0 H Lymphocytes (Manual) 0.7 L Lymphocytes # 0.6 L Monocytes # 0.7 Monocytes # (Manual) 0.6 Eosinophils # 0.1 Basophils # 0.0 Metamyelocytes # 0.0 Nucleated Red Blood Cells # 0.0 Platelet Estimate NORMAL Polychromasia 1+ Poikilocytosis 1+ Anisocytosis 1+ Microcytosis 1+ Sodium Level 139 Potassium Level 4.7 Chloride Level 112 H Carbon Dioxide Level 21 Anion Gap 6 Blood Urea Nitrogen 46 H Creatinine 1.03 Est Glomerular Filtrat Rate mL/min > 60 Glucose Level 85 Calcium Level 8.3 L Phosphorus Level 3.5 Magnesium Level 1.9 Medications Medication Current Medications Acetaminophen (Tylenol Tab) 1,000 mg Q4 PRN PO MODERATE PAIN LEVEL 4-6 Last administered on 04/29/18 21:25; Admin Dose 1,000 MG; Start 03/31/18 at 18:00 Acetaminophen (Tylenol Tab) 650 mg Q4 PRN GTB MILD PAIN LEVEL 1-3 Last administered on 04/28/18 15:43; Admin Dose 650 MG; Start 03/31/18 at 18:00 Albuterol (Proventil 0.083% (Neb)) 2.5 mg Q3H PRN NEB WHEEZING AND SOB Last administered on 04/30/18 02:28; Admin Dose 2.5 MG; Start 03/31/18 at 18:00 Albuterol (Proventil 0.083% (Neb)) 2.5 mg Q6 PRN NEB WHEEZING AND SOB; Start 03/31/18 at 18:00 Ascorbic Acid (Vitamin C) 500 mg DAILY GTB Last administered on 04/29/18 08:55; Admin Dose 500 MG; Start 04/01/18 at 09:00 Bisacodyl (Dulcolax Supp) 10 mg DAILY PRN [place] CONSTIPATION; Start 03/31/18 at 18:00 Multivit/Ca Carb/ B Cmplx/FA/Prenat (Sofy-Sandoval) 1 tab DAILY GTB Last administered on 04/29/18 08:55; Admin Dose 1 TAB; Start 04/01/18 at 09:00 Zinc Sulfate (Zinc Sulfate) 220 mg DAILY GTB Last administered on 04/29/18 08:55; Admin Dose 220 MG; Start 04/01/18 at 09:00 IV Flush (NS 3 ml) 3 ml PER PROTOCOL IV ; Start 03/31/18 at 18:30 Ondansetron HCl (Zofran Inj) 4 mg Q6H PRN IV NAUSEA AND/OR VOMITING; Start 03/31/18 at 18:30 Acetaminophen (Tylenol Tab) 650 mg Q6H PRN PO PAIN LEVEL 1-3 OR FEVER Last administered on 04/22/18 09:18; Admin Dose 650 MG; Start 03/31/18 at 18:30 Acetaminophen (Tylenol Supp) 650 mg Q6H PRN [place] PAIN LEVEL 1-3 OR FEVER Last administered on 04/30/18 07:36; Admin Dose 650 MG; Start 03/31/18 at 18:30 Docusate Sodium (Colace) 100 mg Q12H PRN PO CONSTIPATION; Start 03/31/18 at 18:30 Alteplase, Recombinant (Cathflo (Activase)) 2 mg MAY REPEAT X1 PRN CATHETER IF CATHETER REMAINS OCCULUDED Last administered on 04/03/18 04:24; Admin Dose 2 MG; Start 04/01/18 at 21:00 Collagenase (Santyl) 1 applic DAILY TOP Last administered on 04/28/18 09:00; Admin Dose 1 APPLIC; Start 04/03/18 at 12:00 Morphine Sulfate (morphine) 6 mg Q4H PRN GTB SEVERE PAIN LEVEL 6-10 Last administered on 04/17/18 23:47; Admin Dose 6 MG; Start 04/04/18 at 23:00 Polyethylene Glycol (Miralax) 17 gm DAILY GTB Last administered on 04/28/18 09:00; Admin Dose 17 GM; Start 04/08/18 at 09:00 Carvedilol (Coreg) 50 mg BID GTB Last administered on 04/30/18 09:38; Admin Dose 50 MG; Start 04/08/18 at 21:00 Lansoprazole (Prevacid) 30 mg HS PO Last administered on 04/29/18 21:25; Admin Dose 30 MG; Start 04/20/18 at 21:00 Fluconazole (Diflucan) 100 mg DAILY PO Last administered on 04/30/18 09:37; Admin Dose 100 MG; Start 04/21/18 at 14:00 Amikacin Sulfate (Amikacin Iv Per Pharmacy) AMIKACIN PER PHARMACY NOTE XX ; Start 04/22/18 at 11:30 Amikacin Sulfate 850 mg/Sodium Chloride 253.4 ml @ 250 mls/hr Q72H IVPB Last administered on 04/27/18 13:40; Admin Dose 250 MLS/HR; Start 04/27/18 at 13:00 Aspirin (Aspirin) 81 mg DAILY PO Last administered on 04/29/18 08:55; Admin Dose 81 MG; Start 04/27/18 at 09:00 Doxycycline Hyclate 100 mg/ Sodium Chloride 250 ml @ 250 mls/hr Q12 IVPB Last administered on 04/30/18 09:37; Admin Dose 250 MLS/HR; Start 04/28/18 at 15:30 Lidocaine/ Epinephrine (Xylocaine 1%/ Epi (Mdv) 20 ml) 40 ml ONCE INJ ; Start 04/30/18 at 12:30; Stop 04/30/18 at 16:00 RENÉ GARCIA NP Apr 30, 2018 14:48
[2018-04-30] MEDS: SOD CHLORIDE 0.9% IVPB SCH (15:03)
[2018-04-30] MEDS: AMIKACIN IVPB SCH (15:03)
--- NOTE | 2018-04-30 16:51 | OPR ---
Date/Time of Note Date/Time of Note DATE: 04/30/18 TIME: 16:47 Operative Report Procedure Date: Apr 30, 2018 Preoperative Diagnosis Sacral stage IV decubitus pressure ulcer with necrotic debris Postoperative Diagnosis Same, 8 x 8 cm Operation/Procedure Performed Excisional debridement of sacral subcutaneous, fascia. 8 x 8 cm Surgeon Antonio Campbell MD Materials Technician Noemi Pepe, ZARA Anesthesia Type: other (None) Estimated Blood Loss: 0 - 10 ml's Transfusion none Specimen None Grafts/Implants none Tubes/Drains None Complications none Pt Condition Post Procedure: stable Disposition: other (In his own room) Indications Per consult. Risk, alternatives, benefits as usual and customary discussed with and she agrees to proceed Procedure Description Patient was in his own bed. Placed in lateral decubitus position. All pressure points were well-padded. Patient is already on antibiotics. Timeout was performed. He was prepped and draped in usual sterile fashion. Using electrocautery skin, subcutaneous, and fascia were excised down to healthier tissue. Hemostasis was obtained. Wound was irrigated and packed with Betadine soaked Kerlix. Dry dressing was applied. Patient tolerated procedure well. ANTONIO CAMPBELL MD Apr 30, 2018 16:51
--- NOTE | 2018-04-30 17:08 | PREAC ---
Date/Time of Note Date/Time of Note DATE: 04/30/18 TIME: 17:00 Anesthesia Eval and Record Evaluation Time Pre-Procedure Interview DATE: 04/30/18 TIME: 17:00 Age 62 Sex male NPO: 8 hrs Preoperative diagnosis elevated lipase, mildly elevated CA19-9. Etiology is unclear. Rule out bile duct stone. Rule out intrinsic pancreatic pathology. Planned procedure ERCP Past Medical History Past Medical History: Includes Cardio: HTN (history of ), CAD, CHF Pulm: Other (s/p trach on vent, pneumonia) Neuro: CVA Hepatic: Alcohol abuse GI: Other (dysphagia s/p PEG) Surgery & Anesthesia Issues No known issue Meds Anticoagulation: No Beta Delmer within 24 hr: Yes Reason Beta Delmer not given: Bradycarida, Hypotension Reported Medications Cran/Vitc/Mannose/Inulin/Brom (Uti-Stat Liquid) 3,875 Mg/30 Ml Liquid, 3875 MG GTB DAILY 03/31/18 Ascorbic Acid* (Vitamin C*) 500 Mg Capsule.sa, 500 MG GTB DAILY, CAP 03/31/18 Zinc Sulfate* (Zinc Sulfate*) 220 Mg Tablet, 220 MG GTB DAILY, TAB 03/31/18 Acetaminophen* (Acetaminophen*) 650 Mg Tablet, 650 MG GTB Q4 PRN for MILD PAIN LEVEL 1-3, #30 TAB AND FEVER 03/31/18 Acetaminophen* (Acetaminophen*) 500 MG Extra Strength Tablet, 1000 MG GTB Q4 PRN for MODERATE PAIN LEVEL 4-6, TAB 03/31/18 Acetaminophen* (Acetaminophen*) 325 Mg Tablet, 650 MG GTB TRACH CHANGE PRN for PAIN, #30 TAB GIVE 30 MIN PRIOR TO CHANGE 03/31/18 Spironolactone* (Aldactone*) 25 Mg Tablet, 25 MG GTB DAILY, #30 TAB 03/31/18 Multivit/Ca Carb/B Cmplx/Fa* (Sofy-Sandoval*) 1 Tab Tab, 1 TAB GTB DAILY, TAB 03/31/18 Hydrocodone/Acetaminophen ([place] 5-325 Tablet) 1 Each Tablet, 1 EACH GTB BID, TAB 03/31/18 Midodrine* (Midodrine*) 5 Mg Tablet, 5 MG GTB BID, TAB HOLD FOR SBP ABOVE 110 03/31/18 Na Phos,M-B/Na Phos,Di-Ba (ENEMA [id number]) 133 Ml Enema, 133 ML RC EVERY TWO DAYS PRN for CONSTIPATION, ENEMA 03/31/18 Bisacodyl (Dulcolax) 10 Mg Supp.rect, 10 MG RC DAILY PRN for CONSTIPATION, SUPP.RECT 03/31/18 Carvedilol* (Carvedilol*) 25 Mg Tablet, 25 MG GTB BID, #60 TAB HOLD FOR SBP BELOW 100 OR HR BELOW 50 03/31/18 Albuterol Sulfate* (Albuterol Sulfate* Neb) 0.083%-3 Ml Neb, 2.5 MG NEB Q6 PRN for WHEEZING AND SOB, #30 VIAL 03/31/18 Albuterol Sulfate* (Albuterol Sulfate* Neb) 0.083%-3 Ml Neb, 2.5 MG NEB Q3H PRN for WHEEZING AND SOB, #30 VIAL 03/31/18 Lactobacillus Acidophilus/Pect (Acidophilus-Pectin Capsule) 1 Each Capsule, 1 EACH GTB DAILY, CAP 03/31/18 Current Medications Acetaminophen (Tylenol Tab) 1,000 mg Q4 PRN PO MODERATE PAIN LEVEL 4-6 Last administered on 04/29/18at 21:25; Admin Dose 1,000 MG; Start 03/31/18 at 18:00 Acetaminophen (Tylenol Tab) 650 mg Q4 PRN GTB MILD PAIN LEVEL 1-3 Last administered on 04/28/18at 15:43; Admin Dose 650 MG; Start 03/31/18 at 18:00 Albuterol (Proventil 0.083% (Neb)) 2.5 mg Q3H PRN NEB WHEEZING AND SOB Last administered on 04/30/18at 02:28; Admin Dose 2.5 MG; Start 03/31/18 at 18:00 Albuterol (Proventil 0.083% (Neb)) 2.5 mg Q6 PRN NEB WHEEZING AND SOB; Start 03/31/18 at 18:00 Ascorbic Acid (Vitamin C) 500 mg DAILY GTB Last administered on 04/29/18at 08:55; Admin Dose 500 MG; Start 04/01/18 at 09:00 Bisacodyl (Dulcolax Supp) 10 mg DAILY PRN [place] CONSTIPATION; Start 03/31/18 at 18:00 Multivit/Ca Carb/ B Cmplx/FA/Prenat (Sofy-Sandoval) 1 tab DAILY GTB Last administered on 04/29/18 08:55; Admin Dose 1 TAB; Start 04/01/18 at 09:00 Zinc Sulfate (Zinc Sulfate) 220 mg DAILY GTB Last administered on 04/29/18 08:55; Admin Dose 220 MG; Start 04/01/18 at 09:00 IV Flush (NS 3 ml) 3 ml PER PROTOCOL IV ; Start 03/31/18 at 18:30 Ondansetron HCl (Zofran Inj) 4 mg Q6H PRN IV NAUSEA AND/OR VOMITING; Start 03/31/18 at 18:30 Acetaminophen (Tylenol Tab) 650 mg Q6H PRN PO PAIN LEVEL 1-3 OR FEVER Last administered on 04/22/18 09:18; Admin Dose 650 MG; Start 03/31/18 at 18:30 Acetaminophen (Tylenol Supp) 650 mg Q6H PRN [place] PAIN LEVEL 1-3 OR FEVER Last administered on 04/30/18 07:36; Admin Dose 650 MG; Start 03/31/18 at 18:30 Docusate Sodium (Colace) 100 mg Q12H PRN PO CONSTIPATION; Start 03/31/18 at 18:30 Alteplase, Recombinant (Cathflo (Activase)) 2 mg MAY REPEAT X1 PRN CATHETER IF CATHETER REMAINS OCCULUDED Last administered on 04/03/18 04:24; Admin Dose 2 MG; Start 04/01/18 at 21:00 Collagenase (Santyl) 1 applic DAILY TOP Last administered on 04/28/18 09:00; Admin Dose 1 APPLIC; Start 04/03/18 at 12:00 Morphine Sulfate (morphine) 6 mg Q4H PRN GTB SEVERE PAIN LEVEL 6-10 Last administered on 04/17/18 23:47; Admin Dose 6 MG; Start 04/04/18 at 23:00 Polyethylene Glycol (Miralax) 17 gm DAILY GTB Last administered on 04/28/18 09:00; Admin Dose 17 GM; Start 04/08/18 at 09:00 Carvedilol (Coreg) 50 mg BID GTB Last administered on 04/30/18 09:38; Admin Dose 50 MG; Start 04/08/18 at 21:00 Lansoprazole (Prevacid) 30 mg HS PO Last administered on 04/29/18 21:25; Admin Dose 30 MG; Start 04/20/18 at 21:00 Fluconazole (Diflucan) 100 mg DAILY PO Last administered on 04/30/18at 09:37; Admin Dose 100 MG; Start 04/21/18 at 14:00 Amikacin Sulfate (Amikacin Iv Per Pharmacy) AMIKACIN PER PHARMACY NOTE XX ; Start 04/22/18 at 11:30 Amikacin Sulfate 850 mg/Sodium Chloride 253.4 ml @ 250 mls/hr Q72H IVPB Last administered on 04/30/18at 15:03; Admin Dose 250 MLS/HR; Start 04/27/18 at 13:00 Aspirin (Aspirin) 81 mg DAILY PO Last administered on 04/29/18 08:55; Admin Dose 81 MG; Start 04/27/18 at 09:00 Doxycycline Hyclate 100 mg/ Sodium Chloride 250 ml @ 250 mls/hr Q12 IVPB Last administered on 04/30/18 09:37; Admin Dose 250 MLS/HR; Start 04/28/18 at 15:30 Meds reviewed: Yes Allergies Coded Allergies: No Known Allergy (Unverified , 04/30/18) Allergies Reviewed: Yes Labs/Studies Labs Reviewed: Reviewed by anesthesiologist Result Diagram: 04/30/18 0844 04/30/18 0844 Laboratory Tests 04/30/18 08:44 test: N/A Pre-procedure Exam Last vitals Vital Signs Date Temp Pulse Resp B/P (MAP) Pulse Ox O2 O2 Flow FiO2 Time Delivery Rate 04/30/18 Mechanical 16:18 Ventilator 04/30/18 30 16:18 04/30/18 99.3 92 18 135/85 99 16:15 (102) Airway: Adequate mouth opening, Adequate thyromental dist Mallampati: Mallampati II Teeth: Normal Lung: Normal Heart: Normal ASA Physical Status ASA physical status: 3 Emergency: None Planned Anesthetic General/MAC: Other (trach) Planned Pain Management Parenteral pain med Pre-operative Attestations Prior to commencing anesthesia and surgery, the patient was re-evaluated, there was verification of: *The patient's identity *The results of appropriate recent lab work and preoperative vital signs *The above evaluation not changing prior to induction *Anesthetic plan, risk benefits, alternative and complications discussed with patient/family; questions answered; patient/family understands, accepts and wishes to proceed. JOHN HOWARD MD Apr 30, 2018 17:08
[2018-04-30] MEDS ORDERED: HYDROmorphONE 1 MG/5 ML IV SYRINGE IV PRN ×2 (17:30)
[2018-04-30] MEDS ORDERED: FENTAnyl 50 MCG/ML VIAL IV PRN (17:30)
[2018-04-30] MEDS ORDERED: ONDANSETRON 4 MG INJ IV PRN (17:30)
[2018-04-30] MEDS ORDERED: INDOMETHACIN 50 MG SUPP PR ONE ×2 (18:30→20:18)
[2018-04-30] MEDS ORDERED: ROCURONIUM 50 MG INJ ONE (18:32)
[2018-04-30] MEDS ORDERED: ALBUTEROL 0.083% (NEB) 2.5 MG/3 ML AMP NEB PRN (19:00)
[2018-04-30] MEDS ORDERED: GLUCAGON 1 MG INJ ONE (19:14)
--- NOTE | 2018-04-30 20:10 | PAC ---
Date/Time of Note Date/Time of Note DATE: 04/30/18 TIME: 20:09 Post-Anesthesia Notes Post-Anesthesia Note Last documented vital signs Vital Signs Date Temp Pulse Resp B/P (MAP) Pulse Ox O2 O2 Flow FiO2 Time Delivery Rate 04/30/18 83 26 99 30 17:25 04/30/18 Mechanical 16:18 Ventilator 04/30/18 99.3 135/85 16:15 (102) Activity: WNL Respiratory function: WNL Cardiovascular function: WNL Mental status: Baseline Pain reasonably controlled: Yes Hydration appropriate: Yes Nausea/Vomiting absent: Yes Comments BP: 96/70 HR: 69 RR: 15 T: 98 SaO2: 97% JOHN HOWARD MD Apr 30, 2018 20:10
[2018-04-30] MEDS: LANSOPRAZOLE 30 MG CAP PO SCH (21:12)
[2018-05-01] VITALS (21 sets, daily range): BP systolic 106–141; BP diastolic 73–102; PULSE 54–92; RESP 16–28
[2018-05-01] MEDS ORDERED: SOD CHLORIDE 0.9% 500 ML IV ONE
--- NOTE | 2018-05-01 00:52 | GILP ---
DATE OF PROCEDURE: PROCEDURE PERFORMED: Endoscopic retrograde cholangio-pancreatography with precut sphincterotomy. INDICATION: A 62-year-old male undergoing this procedure for possible biliary pancreatitis. The pur pose is to evaluate the biliary system and perform therapeutic endoscopy. INFORMED CONSENT: The risk of the procedure, related and unrelated complications, anesthetic risks, and alternatives were discussed. Informed consent was obtained. DESCRIPTION OF PROCEDURE: The patient was brought to the OR room #2, placed in a supine position, wa s given Ancef and Indocin prior to the procedure. ERCP scope passed with much ease into esophagus an d advanced further down into stomach and duodenum. The ampulla was identified. The ampulla appeared to be stenosed, could not even engage with a normal sphincterotome, so we used a thin sphincterotome , we could engage that, but deeper cannulation was not possible, so we did some precut hoping that de eper cannulation will be possible. Despite precutting, a deeper cannulation was not possible, so I d ecided to terminate the procedure. IMPRESSION: 1. 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 2. Precut sphincterotomy done. PLAN: Monitor LFT. Allow the swelling to subside and repeat the procedure in a prone position inste ad of supine after a full 5 days. Dictated By: RASHEEDA SOLORZANO/MELISA Conf#: [id number] DID#: [id number] CC: GARFIELD MOREAU MD;*End*
--- NOTE | 2018-05-01 07:19 | CONS ---
Assessment/Plan Assessment/Plan Hospital Course (Demo Recall) 62 male with excessively bleeding gingival tissue and severe anemia 1. Severe acute on chronic anemia likely due to blood loss from gingival bleeding -over weekend drop in hgb to 6.9, s/p 2 units PRBC hgb up to 8.3 3. Chronic liver disease, alcohol related 4. Mild coagulopathy 5. Elevated lipase with mildly elevated CA 19-9 -on CT scan pancreas is normal -lipid panel wnl -CBD 6mm, LFT wnl -Radiology will not do MRCP because of vent 6. Chronic kidney disease -BUN/staff research scientist wnl 7. Encephalopathy secondary to anoxic brain injury 8. H/o duodenal ulcer 9. Complex UTI with lisa albicans, s/p diflucan 10. 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 Peña Consultation Date/Type/Reason Admit Date/Time Mar 31, 2018 at 17:58 Initial Consult Date 04/02/18 Requesting Provider: TAMARA GRAJEDA MD Date/Time of Note DATE: 05/01/18 TIME: 07:13 24 HR Interval Summary Free Text/Dictation Pt stable. No acute changes. ERCP done yesterday found ampullary stenosis, repeat ERCP in 5 days once swelling subsides. Pt had large bm, loose, brown/yellow. No evidence of GI bleeding. Tolerating tube feeds. Afebrile. Pending am labs Exam/Review of Systems Exam Vitals Vital Signs Date Temp Pulse Resp B/P (MAP) Pulse Ox O2 O2 Flow FiO2 Time Delivery Rate 05/01/18 59 21 99 30 05:33 05/01/18 98.1 141/81 04:00 (101) 04/30/18 Mechanical 20:36 Ventilator Trach Collar Intake and Output 04/30/18 04/30/18 05/01/18 1515:00 23:00 07:00 IntakeIntake Total 300 ml 300 ml 1390 ml OutputOutput Total 800 ml 600 ml BalanceBalance 300 ml -500 ml 790 ml Eyes: nl sclera, PERRL Respiratory: diminished breath sounds Cardiovascular: regular rate and rhythm Gastrointestinal: soft Results Result Diagram: 04/30/18 0844 04/30/18 0844 Results 24hrs Laboratory Tests Test 04/30/18 08:44 White Blood Count 7.9 Red Blood Count 3.00 L Hemoglobin 8.5 L Hematocrit 26.5 L Mean Corpuscular Volume 88.3 Mean Corpuscular Hemoglobin 28.3 L Mean Corpuscular Hemoglobin Concent 32.1 Red Cell Distribution Width 15.2 H Platelet Count 213 Mean Platelet Volume 10.8 H Immature Granulocytes % 0.600 H Neutrophils % 80.6 H Segmented Neutrophils % (Manual) 69 Band Neutrophils % (Manual) 13 H Lymphocytes % 8.0 L Lymphocytes % (Manual) 9 L Monocytes % 8.9 Monocytes % (Manual) 8 Eosinophils % 1.5 Basophils % 0.4 Metamyelocytes % (manual) 1 H Nucleated Red Blood Cells % 1 H Immature Granulocytes # 0.050 H Neutrophils # 6.4 Neutrophils # (Manual) 5.5 Band Neutrophils # 1.0 H Lymphocytes (Manual) 0.7 L Lymphocytes # 0.6 L Monocytes # 0.7 Monocytes # (Manual) 0.6 Eosinophils # 0.1 Basophils # 0.0 Metamyelocytes # 0.0 Nucleated Red Blood Cells # 0.0 Platelet Estimate NORMAL Polychromasia 1+ Poikilocytosis 1+ Anisocytosis 1+ Microcytosis 1+ Sodium Level 139 Potassium Level 4.7 Chloride Level 112 H Carbon Dioxide Level 21 Anion Gap 6 Blood Urea Nitrogen 46 H Creatinine 1.03 Est Glomerular Filtrat Rate mL/min > 60 Glucose Level 85 Calcium Level 8.3 L Phosphorus Level 3.5 Magnesium Level 1.9 Medications Medication Current Medications Acetaminophen (Tylenol Tab) 1,000 mg Q4 PRN PO MODERATE PAIN LEVEL 4-6 Last administered on 04/29/18at 21:25; Admin Dose 1,000 MG; Start 03/31/18 at 18:00 Acetaminophen (Tylenol Tab) 650 mg Q4 PRN GTB MILD PAIN LEVEL 1-3 Last administered on 04/28/18at 15:43; Admin Dose 650 MG; Start 03/31/18 at 18:00 Albuterol (Proventil 0.083% (Neb)) 2.5 mg Q6 PRN NEB WHEEZING AND SOB; Start 03/31/18 at 18:00 Ascorbic Acid (Vitamin C) 500 mg DAILY GTB Last administered on 04/29/18at 08:55; Admin Dose 500 MG; Start 04/01/18 at 09:00 Bisacodyl (Dulcolax Supp) 10 mg DAILY PRN [place] CONSTIPATION; Start 03/31/18 at 18:00 Multivit/Ca Carb/ B Cmplx/FA/Prenat (Sofy-Sandoval) 1 tab DAILY GTB Last administered on 04/29/18 08:55; Admin Dose 1 TAB; Start 04/01/18 at 09:00 Zinc Sulfate (Zinc Sulfate) 220 mg DAILY GTB Last administered on 04/29/18 08:55; Admin Dose 220 MG; Start 04/01/18 at 09:00 IV Flush (NS 3 ml) 3 ml PER PROTOCOL IV ; Start 03/31/18 at 18:30 Ondansetron HCl (Zofran Inj) 4 mg Q6H PRN IV NAUSEA AND/OR VOMITING; Start 03/31/18 at 18:30 Acetaminophen (Tylenol Tab) 650 mg Q6H PRN PO PAIN LEVEL 1-3 OR FEVER Last administered on 04/22/18 09:18; Admin Dose 650 MG; Start 03/31/18 at 18:30 Acetaminophen (Tylenol Supp) 650 mg Q6H PRN [place] PAIN LEVEL 1-3 OR FEVER Last administered on 04/30/18 07:36; Admin Dose 650 MG; Start 03/31/18 at 18:30 Docusate Sodium (Colace) 100 mg Q12H PRN PO CONSTIPATION; Start 03/31/18 at 18:30 Alteplase, Recombinant (Cathflo (Activase)) 2 mg MAY REPEAT X1 PRN CATHETER IF CATHETER REMAINS OCCULUDED Last administered on 04/03/18 04:24; Admin Dose 2 MG; Start 04/01/18 at 21:00 Collagenase (Santyl) 1 applic DAILY TOP Last administered on 04/28/18 09:00; Admin Dose 1 APPLIC; Start 04/03/18 at 12:00 Morphine Sulfate (morphine) 6 mg Q4H PRN GTB SEVERE PAIN LEVEL 6-10 Last administered on 04/17/18 23:47; Admin Dose 6 MG; Start 04/04/18 at 23:00 Polyethylene Glycol (Miralax) 17 gm DAILY GTB Last administered on 04/28/18 09:00; Admin Dose 17 GM; Start 04/08/18 at 09:00 Carvedilol (Coreg) 50 mg BID GTB Last administered on 04/30/18 09:38; Admin Dose 50 MG; Start 04/08/18 at 21:00 Lansoprazole (Prevacid) 30 mg HS PO Last administered on 04/30/18 21:12; Admin Dose 30 MG; Start 04/20/18 at 21:00 Fluconazole (Diflucan) 100 mg DAILY PO Last administered on 04/30/18 09:37; Admin Dose 100 MG; Start 04/21/18 at 14:00 Amikacin Sulfate (Amikacin Iv Per Pharmacy) AMIKACIN PER PHARMACY NOTE XX ; Start 04/22/18 at 11:30 Amikacin Sulfate 850 mg/Sodium Chloride 253.4 ml @ 250 mls/hr Q72H IVPB Last administered on 04/30/18 15:03; Admin Dose 250 MLS/HR; Start 04/27/18 at 13:00 Aspirin (Aspirin) 81 mg DAILY PO Last administered on 04/29/18 08:55; Admin Dose 81 MG; Start 04/27/18 at 09:00 Doxycycline Hyclate 100 mg/ Sodium Chloride 250 ml @ 250 mls/hr Q12 IVPB Last administered on 04/30/18 21:12; Admin Dose 250 MLS/HR; Start 04/28/18 at 15:30 Albuterol (Proventil 0.083% (Neb)) 2.5 mg Q3H RESP THERAPY PRN NEB WHEEZING AND SOB; Start 04/30/18 at 19:00 QI CHRISTIANSON May 01, 2018 07:19
[2018-05-01] MEDS: COLLAGENASE 5 GM (UD JAR) TOP SCH (08:52)
[2018-05-01] MEDS: ASPIRIN 81 MG TAB PO SCH (08:52)
[2018-05-01] MEDS: POLYETHYLENE GLYCOL 17 GM PACKET GTB SCH (08:52)
[2018-05-01] MEDS: MULTIVIT/CA CARB/B CMPLX/FA TAB GTB SCH (08:53)
[2018-05-01] MEDS: ZINC SULFATE 220 MG CAP GTB SCH (08:54)
[2018-05-01] MEDS: FLUCONAZOLE 100 MG TAB PO SCH (08:54)
[2018-05-01] MEDS: ASCORBIC ACID 500 MG TAB GTB SCH (08:54)
[2018-05-01] MEDS: BALSAM PERU/CASTOR OIL 60 GM TUBE TOP SCH ×2 (08:55→21:00)
[2018-05-01] MEDS: DOXYCYCLINE 100 MG in SOD CHLORIDE 0.9% 250 ML IVPB SCH ×2 (08:55→21:09)
--- NOTE | 2018-05-01 11:48 | CONS ---
Assessment/Plan Assessment/Plan Hospital Course (Demo Recall) All noted, looks comfortable, afebrile Antimicrobials: Amikacin, fluconazole, Doxycycline Indwelling: Trach PEG Schwartz. Microbiology: urine culture + Pseudomonas/C alb Physical examination: Chronically ill-appearing elderly man who is noncommunicative in no distress. Head atraumatic normocephalic sclera nonicteric neck is supple tracheostomy present chest rise symmetrical breath sounds diminished bases heart: S1-S2. Abdomen soft bowel sounds present. Extremities without cyanosis. Skin: Patient has multiple pressure sores he has a dry blood on the right lower lip Assessment: 1. Sepsis secondary to urinary tract infection and HCAP 2. 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 VDRF 3. Dysphagia 4. Chronic encephalopathy 5. History of cardiomyopathy 6. Sacral decub, s/p debridement 04/30/18 7. MRSA nares colonization 8. Elevated amylase and lipase of unclear etiology Plan: Clinically unchanged, repeat urine cx + C alb, continue abx, local wound care, GI rec-s noted==> plan for repeat ERCP, monitor renal f-n Consultation Date/Type/Reason Admit Date/Time Mar 31, 2018 at 17:58 Initial Consult Date 04/02/18 Type of Consult id Requesting Provider: TAMARA GRAJEDA MD Date/Time of Note DATE: 05/01/18 TIME: 11:46 Exam/Review of Systems Exam Vitals Vital Signs Date Temp Pulse Resp B/P (MAP) Pulse Ox O2 O2 Flow FiO2 Time Delivery Rate 05/01/18 68 22 100 30 09:10 05/01/18 98.0 132/102 08:20 (112) 04/30/18 Mechanical 20:36 Ventilator Trach Collar Intake and Output 04/30/18 04/30/18 05/01/18 1515:00 23:00 07:00 IntakeIntake Total 300 ml 300 ml 1390 ml OutputOutput Total 800 ml 600 ml BalanceBalance 300 ml -500 ml 790 ml Results Result Diagram: 05/01/18 0730 05/01/18 0730 Results 24hrs Laboratory Tests Test 05/01/18 07:30 White Blood Count 7.7 Red Blood Count 2.83 L Hemoglobin 8.0 L Hematocrit 25.3 L Mean Corpuscular Volume 89.4 Mean Corpuscular Hemoglobin 28.3 L Mean Corpuscular Hemoglobin Concent 31.6 L Red Cell Distribution Width 15.3 H Platelet Count 210 Mean Platelet Volume 10.5 H Immature Granulocytes % 0.900 H Neutrophils % 80.1 H Lymphocytes % 6.0 L Monocytes % 9.6 Eosinophils % 3.0 Basophils % 0.4 Nucleated Red Blood Cells % 0.0 Immature Granulocytes # 0.070 H Neutrophils # 6.2 Lymphocytes # 0.5 L Monocytes # 0.7 Eosinophils # 0.2 Basophils # 0.0 Nucleated Red Blood Cells # 0.0 Sodium Level 141 Potassium Level 4.5 Chloride Level 113 H Carbon Dioxide Level 18 L Anion Gap 10 Blood Urea Nitrogen 50 H Creatinine 1.23 Est Glomerular Filtrat Rate mL/min > 60 Glucose Level 109 Calcium Level 8.6 Phosphorus Level 4.3 Magnesium Level 2.8 H Total Bilirubin 0.0 L Direct Bilirubin 0.00 Indirect Bilirubin 0.0 Aspartate Amino Transf (AST/SGOT) 81 H Alanine Aminotransferase (ALT/SGPT) 28 Alkaline Phosphatase 88 Total Protein 6.6 Albumin 2.8 L Globulin 3.80 H Albumin/Globulin Ratio 0.73 Medications Medication Current Medications Acetaminophen (Tylenol Tab) 1,000 mg Q4 PRN PO MODERATE PAIN LEVEL 4-6 Last administered on 04/29/18at 21:25; Admin Dose 1,000 MG; Start 03/31/18 at 18:00 Acetaminophen (Tylenol Tab) 650 mg Q4 PRN GTB MILD PAIN LEVEL 1-3 Last administered on 04/28/18at 15:43; Admin Dose 650 MG; Start 03/31/18 at 18:00 Albuterol (Proventil 0.083% (Neb)) 2.5 mg Q6 PRN NEB WHEEZING AND SOB; Start 03/31/18 at 18:00 Ascorbic Acid (Vitamin C) 500 mg DAILY GTB Last administered on 05/01/18 08:54; Admin Dose 500 MG; Start 04/01/18 at 09:00 Bisacodyl (Dulcolax Supp) 10 mg DAILY PRN [place] CONSTIPATION; Start 03/31/18 at 18:00 Multivit/Ca Carb/ B Cmplx/FA/Prenat (Sofy-Sandoval) 1 tab DAILY GTB Last administered on 05/01/18at 08:53; Admin Dose 1 TAB; Start 04/01/18 at 09:00 Zinc Sulfate (Zinc Sulfate) 220 mg DAILY GTB Last administered on 05/01/18 08:54; Admin Dose 220 MG; Start 04/01/18 at 09:00 IV Flush (NS 3 ml) 3 ml PER PROTOCOL IV ; Start 03/31/18 at 18:30 Ondansetron HCl (Zofran Inj) 4 mg Q6H PRN IV NAUSEA AND/OR VOMITING; Start 03/31/18 at 18:30 Acetaminophen (Tylenol Tab) 650 mg Q6H PRN PO PAIN LEVEL 1-3 OR FEVER Last administered on 04/22/18 09:18; Admin Dose 650 MG; Start 03/31/18 at 18:30 Acetaminophen (Tylenol Supp) 650 mg Q6H PRN [place] PAIN LEVEL 1-3 OR FEVER Last administered on 04/30/18 07:36; Admin Dose 650 MG; Start 03/31/18 at 18:30 Docusate Sodium (Colace) 100 mg Q12H PRN PO CONSTIPATION; Start 03/31/18 at 18:30 Alteplase, Recombinant (Cathflo (Activase)) 2 mg MAY REPEAT X1 PRN CATHETER IF CATHETER REMAINS OCCULUDED Last administered on 04/03/18 04:24; Admin Dose 2 MG; Start 04/01/18 at 21:00 Collagenase (Santyl) 1 applic DAILY TOP Last administered on 05/01/18 08:52; Admin Dose 1 APPLIC; Start 04/03/18 at 12:00 Morphine Sulfate (morphine) 6 mg Q4H PRN GTB SEVERE PAIN LEVEL 6-10 Last administered on 04/17/18at 23:47; Admin Dose 6 MG; Start 04/04/18 at 23:00 Polyethylene Glycol (Miralax) 17 gm DAILY GTB Last administered on 05/01/18 08:52; Admin Dose 17 GM; Start 04/08/18 at 09:00 Carvedilol (Coreg) 50 mg BID GTB Last administered on 05/01/18 08:53; Admin Dose 50 MG; Start 04/08/18 at 21:00 Lansoprazole (Prevacid) 30 mg HS PO Last administered on 04/30/18 21:12; Admin Dose 30 MG; Start 04/20/18 at 21:00 Fluconazole (Diflucan) 100 mg DAILY PO Last administered on 05/01/18 08:54; Admin Dose 100 MG; Start 04/21/18 at 14:00 Amikacin Sulfate (Amikacin Iv Per Pharmacy) AMIKACIN PER PHARMACY NOTE XX ; Start 04/22/18 at 11:30 Amikacin Sulfate 850 mg/Sodium Chloride 253.4 ml @ 250 mls/hr Q72H IVPB Last administered on 04/30/18at 15:03; Admin Dose 250 MLS/HR; Start 04/27/18 at 13:00 Aspirin (Aspirin) 81 mg DAILY PO Last administered on 05/01/18 08:52; Admin Dose 81 MG; Start 04/27/18 at 09:00 Doxycycline Hyclate 100 mg/ Sodium Chloride 250 ml @ 250 mls/hr Q12 IVPB Last administered on 05/01/18 08:55; Admin Dose 250 MLS/HR; Start 04/28/18 at 15:30 Albuterol (Proventil 0.083% (Neb)) 2.5 mg Q3H RESP THERAPY PRN NEB WHEEZING AND SOB; Start 04/30/18 at 19:00 Miscellaneous Information (*Order Clarification Bulletin) MEDICATION REQUIRES CLARIFICATI... Q8H XX ; Start 05/01/18 at 09:30 RENÉ GARCIA NP May 01, 2018 11:48
--- NOTE | 2018-05-01 13:25 | PN ---
Date/Time of Note Date/Time of Note DATE: 05/01/18 TIME: 13:25 Assessment/Plan VTE Prophylaxis Risk score (from Ns)>0 risk: 0 SCD applied (from Ns): Yes Pharmacological prophylaxis: NA/contraindicated Pharm contraindication: low risk/ambulating Lines/Catheters IV Catheter Type (from [facility]): Saline Lock Urinary Cath still in place: Yes Reason Cath still needed: urinary retention Assessment/Plan Hospital Course 62 y/o with # Oral gingival bleeding likely due to dentures, seen by ENT s/p endoscopy # Sepsis with Fevers with hx Pneumonia +UTI and ? Pancreatitis +multiple wounds, ucx+ lisa, wound cx+ MRSA/ pseudomonas, +resp culture +pseudomonas # Blood loss anemia due to oral gingival bleeding # VDRF # CKD with worsening renal failure>resolved # Metabolic acidosis #DILATED CARDIOMYOPATHY # HX ALCOHOL ABUSE # Multiple wounds > decub # Pancreatitis with elevated Lipase # Enterocoltiis on CT # AMS due to Metabolic encephalopathy with . Possible subacute infarct in the left cerebellar hemisphere and cerebellar peduncle> much improved #Ongoing fevers likely secondary to UTI/hcap now improved> again with fevers Plan -On amikacin/doxy / fluonazole - s/p debridement - repeat ERCP in 5 days - family wants comference> Dr Bedolla consulted - Per request > laura ativan - GI prophylaxsis - monitor oral bleeding - labs am - PT/OT/Speech Result Diagram: 05/01/18 0730 05/01/18 0730 Results 24hrs Laboratory Tests Test 05/01/18 07:30 05/01/18 11:51 White Blood Count 7.7 Red Blood Count 2.83 L Hemoglobin 8.0 L Hematocrit 25.3 L Mean Corpuscular Volume 89.4 Mean Corpuscular Hemoglobin 28.3 L Mean Corpuscular Hemoglobin Concent 31.6 L Red Cell Distribution Width 15.3 H Platelet Count 210 Mean Platelet Volume 10.5 H Immature Granulocytes % 0.900 H Neutrophils % 80.1 H Lymphocytes % 6.0 L Monocytes % 9.6 Eosinophils % 3.0 Basophils % 0.4 Nucleated Red Blood Cells % 0.0 Immature Granulocytes # 0.070 H Neutrophils # 6.2 Lymphocytes # 0.5 L Monocytes # 0.7 Eosinophils # 0.2 Basophils # 0.0 Nucleated Red Blood Cells # 0.0 Sodium Level 141 Potassium Level 4.5 Chloride Level 113 H Carbon Dioxide Level 18 L Anion Gap 10 Blood Urea Nitrogen 50 H Creatinine 1.23 Est Glomerular Filtrat Rate mL/min > 60 Glucose Level 109 Calcium Level 8.6 Phosphorus Level 4.3 Magnesium Level 2.8 H Total Bilirubin 0.0 L Direct Bilirubin 0.00 Indirect Bilirubin 0.0 Aspartate Amino Transf (AST/SGOT) 81 H Alanine Aminotransferase (ALT/SGPT) 28 Alkaline Phosphatase 88 Total Protein 6.6 Albumin 2.8 L Globulin 3.80 H Albumin/Globulin Ratio 0.73 Lab Scanned Report REFERENCE LAB Subjective 24 Hr Interval Summary Free Text/Dictation s/p debridement yesterday ERCP could not be completed spoke to Exam/Review of Systems Exam Vitals Vital Signs Date Temp Pulse Resp B/P (MAP) Pulse Ox O2 O2 Flow FiO2 Time Delivery Rate 05/01/18 99.1 73 19 139/97 97 12:09 (111) 05/01/18 30 12:00 04/30/18 Mechanical 20:36 Ventilator Trach Collar Intake and Output 04/30/18 04/30/18 05/01/18 1515:00 23:00 07:00 IntakeIntake Total 300 ml 300 ml 1390 ml OutputOutput Total 800 ml 600 ml BalanceBalance 300 ml -500 ml 790 ml Exam offrestraints Head: normocephalic Eyes: nl conjunctiva ENMT: other (tracheostomy) Neck: supple Respiratory: diminished breath sounds Cardiovascular: regular rate and rhythm Gastrointestinal: other (G tube) Results Results 24hrs Laboratory Tests Test 05/01/18 07:30 05/01/18 11:51 White Blood Count 7.7 Red Blood Count 2.83 L Hemoglobin 8.0 L Hematocrit 25.3 L Mean Corpuscular Volume 89.4 Mean Corpuscular Hemoglobin 28.3 L Mean Corpuscular Hemoglobin Concent 31.6 L Red Cell Distribution Width 15.3 H Platelet Count 210 Mean Platelet Volume 10.5 H Immature Granulocytes % 0.900 H Neutrophils % 80.1 H Lymphocytes % 6.0 L Monocytes % 9.6 Eosinophils % 3.0 Basophils % 0.4 Nucleated Red Blood Cells % 0.0 Immature Granulocytes # 0.070 H Neutrophils # 6.2 Lymphocytes # 0.5 L Monocytes # 0.7 Eosinophils # 0.2 Basophils # 0.0 Nucleated Red Blood Cells # 0.0 Sodium Level 141 Potassium Level 4.5 Chloride Level 113 H Carbon Dioxide Level 18 L Anion Gap 10 Blood Urea Nitrogen 50 H Creatinine 1.23 Est Glomerular Filtrat Rate mL/min > 60 Glucose Level 109 Calcium Level 8.6 Phosphorus Level 4.3 Magnesium Level 2.8 H Total Bilirubin 0.0 L Direct Bilirubin 0.00 Indirect Bilirubin 0.0 Aspartate Amino Transf (AST/SGOT) 81 H Alanine Aminotransferase (ALT/SGPT) 28 Alkaline Phosphatase 88 Total Protein 6.6 Albumin 2.8 L Globulin 3.80 H Albumin/Globulin Ratio 0.73 Lab Scanned Report REFERENCE LAB Medications Medication Current Medications Acetaminophen (Tylenol Tab) 1,000 mg Q4 PRN PO MODERATE PAIN LEVEL 4-6 Last administered on 04/29/18 21:25; Admin Dose 1,000 MG; Start 03/31/18 at 18:00 Acetaminophen (Tylenol Tab) 650 mg Q4 PRN GTB MILD PAIN LEVEL 1-3 Last administered on 04/28/18 15:43; Admin Dose 650 MG; Start 03/31/18 at 18:00 Albuterol (Proventil 0.083% (Neb)) 2.5 mg Q6 PRN NEB WHEEZING AND SOB; Start 03/31/18 at 18:00 Ascorbic Acid (Vitamin C) 500 mg DAILY GTB Last administered on 05/01/18 08:54; Admin Dose 500 MG; Start 04/01/18 at 09:00 Bisacodyl (Dulcolax Supp) 10 mg DAILY PRN [place] CONSTIPATION; Start 03/31/18 at 18:00 Multivit/Ca Carb/ B Cmplx/FA/Prenat (Sofy-Sandoval) 1 tab DAILY GTB Last administered on 05/01/18at 08:53; Admin Dose 1 TAB; Start 04/01/18 at 09:00 Zinc Sulfate (Zinc Sulfate) 220 mg DAILY GTB Last administered on 05/01/18 08:54; Admin Dose 220 MG; Start 04/01/18 at 09:00 IV Flush (NS 3 ml) 3 ml PER PROTOCOL IV ; Start 03/31/18 at 18:30 Ondansetron HCl (Zofran Inj) 4 mg Q6H PRN IV NAUSEA AND/OR VOMITING; Start 03/31/18 at 18:30 Acetaminophen (Tylenol Tab) 650 mg Q6H PRN PO PAIN LEVEL 1-3 OR FEVER Last administered on 04/22/18 09:18; Admin Dose 650 MG; Start 03/31/18 at 18:30 Acetaminophen (Tylenol Supp) 650 mg Q6H PRN [place] PAIN LEVEL 1-3 OR FEVER Last administered on 04/30/18 07:36; Admin Dose 650 MG; Start 03/31/18 at 18:30 Docusate Sodium (Colace) 100 mg Q12H PRN PO CONSTIPATION; Start 03/31/18 at 18:30 Alteplase, Recombinant (Cathflo (Activase)) 2 mg MAY REPEAT X1 PRN CATHETER IF CATHETER REMAINS OCCULUDED Last administered on 04/03/18 04:24; Admin Dose 2 MG; Start 04/01/18 at 21:00 Collagenase (Santyl) 1 applic DAILY TOP Last administered on 05/01/18 08:52; Admin Dose 1 APPLIC; Start 04/03/18 at 12:00 Morphine Sulfate (morphine) 6 mg Q4H PRN GTB SEVERE PAIN LEVEL 6-10 Last administered on 04/17/18 23:47; Admin Dose 6 MG; Start 04/04/18 at 23:00 Polyethylene Glycol (Miralax) 17 gm DAILY GTB Last administered on 05/01/18 08:52; Admin Dose 17 GM; Start 04/08/18 at 09:00 Carvedilol (Coreg) 50 mg BID GTB Last administered on 05/01/18 08:53; Admin Dose 50 MG; Start 04/08/18 at 21:00 Lansoprazole (Prevacid) 30 mg HS PO Last administered on 04/30/18 21:12; Admin Dose 30 MG; Start 04/20/18 at 21:00 Fluconazole (Diflucan) 100 mg DAILY PO Last administered on 05/01/18 08:54; Admin Dose 100 MG; Start 04/21/18 at 14:00 Amikacin Sulfate (Amikacin Iv Per Pharmacy) AMIKACIN PER PHARMACY NOTE XX ; Start 04/22/18 at 11:30 Amikacin Sulfate 850 mg/Sodium Chloride 253.4 ml @ 250 mls/hr Q72H IVPB Last administered on 04/30/18 15:03; Admin Dose 250 MLS/HR; Start 04/27/18 at 13:00 Aspirin (Aspirin) 81 mg DAILY PO Last administered on 05/01/18at 08:52; Admin Dose 81 MG; Start 04/27/18 at 09:00 Doxycycline Hyclate 100 mg/ Sodium Chloride 250 ml @ 250 mls/hr Q12 IVPB Last administered on 05/01/18at 08:55; Admin Dose 250 MLS/HR; Start 04/28/18 at 15:30 Albuterol (Proventil 0.083% (Neb)) 2.5 mg Q3H RESP THERAPY PRN NEB WHEEZING AND SOB; Start 04/30/18 at 19:00 Miscellaneous Information (*Order Clarification Bulletin) MEDICATION REQUIRES CLARIFICATI... Q8H XX ; Start 05/01/18 at 09:30 TAMARA GRAJEDA MD May 01, 2018 13:25
--- NOTE | 2018-05-01 19:02 | PN ---
Date/Time of Note Date/Time of Note DATE: 05/01/18 TIME: 18:54 Assessment/Plan Lines/Catheters IV Catheter Type (from [facility]): Saline Lock Schwartz in Place (from [facility]): Yes Assessment/Plan Chief Complaint/Hosp Course 1. Decubitus pressure ulcers with necrosis s/p exc milena 04/30 -Local care -Offload -Nutritional optimization -Vitamin C -Short-term zinc -Debridement prn 2. 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 Dilated cardiomyopathy with congestive heart failure and coronary artery disease with history of hypertension however initially presented with hypotension -Cardiac optimization -Judicious fluid management -Electrolyte optimization 4. Chronic renal disease -Judicious fluid management -Minimize nephrotoxic agents if possible 5. Dysphagia on tube feeds 6. Anemia s/p ercp 04/30 -Monitor 7. Ventilator dependent respiratory failure -Ventilator management and pulmonary toilet 8. Abnormal lipase and ca19-9 s/p ercp 04/30 with stricture and sphincterotomy Thank you, Subjective 24 Hr Interval Summary Fever improved. s/p ERCP 04/30. s/p Excisional debridement of sacrum 04/30. No labored breathing, congested cough, arrhythmia, vomiting, hematuria. Exam/Review of Systems Vital Signs Vitals Vital Signs Date Temp Pulse Resp B/P (MAP) Pulse Ox O2 O2 Flow FiO2 Time Delivery Rate 05/01/18 84 24 100 30 17:30 05/01/18 97.8 140/92 16:23 (108) 04/30/18 Mechanical 20:36 Ventilator Trach Collar Intake and Output 04/30/18 04/30/18 05/01/18 1515:00 23:00 07:00 IntakeIntake Total 300 ml 300 ml 1390 ml OutputOutput Total 800 ml 600 ml BalanceBalance 300 ml -500 ml 790 ml Exam Free Text/Dictation Constitutional: No alert, No oriented Psych: confusion; No nl mood/affect Head: normocephalic Eyes: nl conjunctiva, PERRL; No icteric ENMT: nl lips & teeth, mucosa pink and dry; dried blood Neck: supple, jvd (Minimal), other (Trach in place) Respiratory: No congested cough, No labored breathing, No wheezing Cardiovascular: regular rate and rhythm; No edema Gastrointestinal: soft, non-tender, other (PEG); No distended, No rebound or guarding Genitourinary - Male: nl penis Musculoskeletal: No nl gait and stance, No joint tenderness Extremities: edema; No calf tenderness, No tenderness Neurological: No nl mental status, No nl speech, No nl strength Skin: rash or lesions (Bilateral bladder pressure decubitus wounds with dressing. Lower extremity wounds.), ecchymosis; No nl turgor, No diaphoresis Lymph: No nl lymph nodes Results Result Diagram: 05/01/18 0730 05/01/18 0730 ANTONIO CAMPBELL MD May 01, 2018 19:02
[2018-05-01] MEDS: LANSOPRAZOLE 30 MG CAP PO SCH (21:07)
[2018-05-01] MEDS: ACETAMINOPHEN 325 MG TAB PO PRN (21:10)
[2018-05-01] MEDS: morphine LIQ (10 MG/5 ML) CUP GTB PRN (22:57)
[2018-05-02] VITALS (22 sets, daily range): BP systolic 101–129; BP diastolic 70–92; PULSE 67–85; RESP 16–31
--- NOTE | 2018-05-02 07:26 | CONS ---
Assessment/Plan Assessment/Plan Hospital Course (Demo Recall) 62 male with excessively bleeding gingival tissue and severe anemia 1. Severe acute on chronic anemia likely due to blood loss from gingival bleeding 3. Chronic liver disease, alcohol related 4. Mild coagulopathy 5. Elevated lipase with mildly elevated CA 19-9 -on CT scan pancreas is normal -lipid panel wnl -CBD 6mm, LFT wnl -Radiology will not do MRCP because of vent 6. Chronic kidney disease -BUN/developmental education instructor wnl 7. Encephalopathy secondary to anoxic brain injury 8. H/o duodenal ulcer 9. Complex UTI with lisa albicans, s/p diflucan 10. 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 Peña Consultation Date/Type/Reason Admit Date/Time Mar 31, 2018 at 17:58 Initial Consult Date 04/02/18 Requesting Provider: TAMARA GRAJEDA MD Date/Time of Note DATE: 05/02/18 TIME: 07:24 24 HR Interval Summary Free Text/Dictation No acute events overnight. Afebrile. Episodes of tachypnea in high 20s. BM last night. No evidence of GI bleeding Exam/Review of Systems Exam Vitals Vital Signs Date Temp Pulse Resp B/P (MAP) Pulse Ox O2 O2 Flow FiO2 Time Delivery Rate 05/02/18 84 26 100 30 05:37 05/02/18 98.5 113/79 03:49 (90) 04/30/18 Mechanical 20:36 Ventilator Trach Collar Intake and Output 05/01/18 05/01/18 05/02/18 1414:59 22:59 06:59 IntakeIntake Total 250 ml 930 ml OutputOutput Total 400 ml BalanceBalance 250 ml 530 ml Results Result Diagram: 05/01/18 0730 05/01/18 0730 Results 24hrs Laboratory Tests Test 05/01/18 07:30 05/01/18 11:51 White Blood Count 7.7 Red Blood Count 2.83 L Hemoglobin 8.0 L Hematocrit 25.3 L Mean Corpuscular Volume 89.4 Mean Corpuscular Hemoglobin 28.3 L Mean Corpuscular Hemoglobin Concent 31.6 L Red Cell Distribution Width 15.3 H Platelet Count 210 Mean Platelet Volume 10.5 H Immature Granulocytes % 0.900 H Neutrophils % 80.1 H Lymphocytes % 6.0 L Monocytes % 9.6 Eosinophils % 3.0 Basophils % 0.4 Nucleated Red Blood Cells % 0.0 Immature Granulocytes # 0.070 H Neutrophils # 6.2 Lymphocytes # 0.5 L Monocytes # 0.7 Eosinophils # 0.2 Basophils # 0.0 Nucleated Red Blood Cells # 0.0 Sodium Level 141 Potassium Level 4.5 Chloride Level 113 H Carbon Dioxide Level 18 L Anion Gap 10 Blood Urea Nitrogen 50 H Creatinine 1.23 Est Glomerular Filtrat Rate mL/min > 60 Glucose Level 109 Calcium Level 8.6 Phosphorus Level 4.3 Magnesium Level 2.8 H Total Bilirubin 0.0 L Direct Bilirubin 0.00 Indirect Bilirubin 0.0 Aspartate Amino Transf (AST/SGOT) 81 H Alanine Aminotransferase (ALT/SGPT) 28 Alkaline Phosphatase 88 Total Protein 6.6 Albumin 2.8 L Globulin 3.80 H Albumin/Globulin Ratio 0.73 Lab Scanned Report REFERENCE LAB Medications Medication Current Medications Acetaminophen (Tylenol Tab) 1,000 mg Q4 PRN PO MODERATE PAIN LEVEL 4-6 Last administered on 04/29/18 21:25; Admin Dose 1,000 MG; Start 03/31/18 at 18:00 Acetaminophen (Tylenol Tab) 650 mg Q4 PRN GTB MILD PAIN LEVEL 1-3 Last administered on 04/28/18 15:43; Admin Dose 650 MG; Start 03/31/18 at 18:00 Albuterol (Proventil 0.083% (Neb)) 2.5 mg Q6 PRN NEB WHEEZING AND SOB; Start 03/31/18 at 18:00 Ascorbic Acid (Vitamin C) 500 mg DAILY GTB Last administered on 05/01/18 08:54; Admin Dose 500 MG; Start 04/01/18 at 09:00 Bisacodyl (Dulcolax Supp) 10 mg DAILY PRN [place] CONSTIPATION; Start 03/31/18 at 18:00 Multivit/Ca Carb/ B Cmplx/FA/Prenat (Sofy-Sandoval) 1 tab DAILY GTB Last administered on 05/01/18 08:53; Admin Dose 1 TAB; Start 04/01/18 at 09:00 Zinc Sulfate (Zinc Sulfate) 220 mg DAILY GTB Last administered on 2/6/19at 08:54; Admin Dose 220 MG; Start 04/01/18 at 09:00 IV Flush (NS 3 ml) 3 ml PER PROTOCOL IV ; Start 03/31/18 at 18:30 Ondansetron HCl (Zofran Inj) 4 mg Q6H PRN IV NAUSEA AND/OR VOMITING; Start 03/31/18 at 18:30 Acetaminophen (Tylenol Tab) 650 mg Q6H PRN PO PAIN LEVEL 1-3 OR FEVER Last administered on 05/01/18 21:10; Admin Dose 650 MG; Start 03/31/18 at 18:30 Acetaminophen (Tylenol Supp) 650 mg Q6H PRN PA PAIN LEVEL 1-3 OR FEVER Last ad ministered on 04/30/18 07:36; Admin Dose 650 MG; Start 03/31/18 at 18:30 Docusate Sodium (Colace) 100 mg Q12H PRN PO CONSTIPATION; Start 03/31/18 at 18:30 Alteplase, Recombinant (Cathflo (Activase)) 2 mg MAY REPEAT X1 PRN CATHETER IF CATHETER REMAINS OCCULUDED Last administered on 04/03/18at 04:24; Admin Dose 2 MG; Start 04/01/18 at 21:00 Collagenase (Santyl) 1 applic DAILY TOP Last administered on 05/01/18 08:52; Admin Dose 1 APPLIC; Start 04/03/18 at 12:00 Morphine Sulfate (morphine) 6 mg Q4H PRN GTB SEVERE PAIN LEVEL 6-10 Last administered on 05/01/18 22:57; Admin Dose 6 MG; Start 04/04/18 at 23:00 Polyethylene Glycol (Miralax) 17 gm DAILY GTB Last administered on 05/01/18 08:52; Admin Dose 17 GM; Start 04/08/18 at 09:00 Carvedilol (Coreg) 50 mg BID GTB Last administered on 05/01/18 21:08; Admin Dose 50 MG; Start 04/08/18 at 21:00 Lansoprazole (Prevacid) 30 mg HS PO Last administered on 05/01/18 21:07; Admin Dose 30 MG; Start 04/20/18 at 21:00 Fluconazole (Diflucan) 100 mg DAILY PO Last administered on 05/01/18 08:54; Admin Dose 100 MG; Start 04/21/18 at 14:00 Amikacin Sulfate (Amikacin Iv Per Pharmacy) AMIKACIN PER PHARMACY NOTE XX ; Start 04/22/18 at 11:30 Amikacin Sulfate 850 mg/Sodium Chloride 253.4 ml @ 250 mls/hr Q72H IVPB Last administered on 04/30/18at 15:03; Admin Dose 250 MLS/HR; Start 04/27/18 at 13:00 Aspirin (Aspirin) 81 mg DAILY PO Last administered on 05/01/18at 08:52; Admin Dose 81 MG; Start 04/27/18 at 09:00 Doxycycline Hyclate 100 mg/ Sodium Chloride 250 ml @ 250 mls/hr Q12 IVPB Last administered on 05/01/18at 21:09; Admin Dose 250 MLS/HR; Start 04/28/18 at 15:30 Albuterol (Proventil 0.083% (Neb)) 2.5 mg Q3H RESP THERAPY PRN NEB WHEEZING AND SOB; Start 04/30/18 at 19:00 Miscellaneous Information (*Order Clarification Bulletin) MEDICATION REQUIRES CLARIFICATI... Q8H XX ; Start 05/01/18 at 09:30 QI CHRISTIANSON May 02, 2018 07:26
[2018-05-02] MEDS: FLUCONAZOLE 100 MG TAB PO SCH (08:20)
[2018-05-02] MEDS: ASPIRIN 81 MG TAB PO SCH (08:20)
[2018-05-02] MEDS: MULTIVIT/CA CARB/B CMPLX/FA TAB GTB SCH (08:20)
[2018-05-02] MEDS: ASCORBIC ACID 500 MG TAB GTB SCH (08:20)
[2018-05-02] MEDS: ZINC SULFATE 220 MG CAP GTB SCH (08:20)
[2018-05-02] MEDS: COLLAGENASE 5 GM (UD JAR) TOP SCH (08:20)
[2018-05-02] MEDS: POLYETHYLENE GLYCOL 17 GM PACKET GTB SCH (08:21)
[2018-05-02] MEDS: DOXYCYCLINE 100 MG in SOD CHLORIDE 0.9% 250 ML IVPB SCH (08:22)
[2018-05-02] MEDS: BALSAM PERU/CASTOR OIL 60 GM TUBE TOP SCH ×2 (08:22→21:26)
[2018-05-02] MEDS: ACETAMINOPHEN 325 MG TAB PO PRN (08:23)
[2018-05-02] MEDS: MEROPENEM 1 GM/50ML(PMX) 50 ML IVPB SCH ×3 (10:07→21:25)
--- NOTE | 2018-05-02 10:30 | PN ---
Date/Time of Note Date/Time of Note DATE: 05/02/18 TIME: 10:30 Assessment/Plan VTE Prophylaxis Risk score (from Ns)>0 risk: 4 SCD applied (from Ns): Yes Pharmacological prophylaxis: NA/contraindicated Pharm contraindication: low risk/ambulating Lines/Catheters IV Catheter Type (from [facility]): Saline Lock Urinary Cath still in place: Yes Reason Cath still needed: urinary retention Assessment/Plan Hospital Course 62 y/o with # Oral gingival bleeding likely due to dentures, seen by ENT s/p endoscopy # Sepsis with Fevers with hx Pneumonia +UTI and ? Pancreatitis +multiple wounds, ucx+ lisa, wound cx+ MRSA/ pseudomonas, +resp culture +pseudomonas # Blood loss anemia due to oral gingival bleeding # VDRF # CKD with worsening renal failure>resolved # Metabolic acidosis #DILATED CARDIOMYOPATHY # HX ALCOHOL ABUSE # Multiple wounds > decub # Pancreatitis with elevated Lipase # Enterocoltiis on CT # AMS due to Metabolic encephalopathy with . Possible subacute infarct in the left cerebellar hemisphere and cerebellar peduncle> much improved #Ongoing fevers likely secondary to UTI/hcap now improved> again with fevers Plan - continues to have fevers of 102 added meropenem per ID today, cw amikacin/fluocnazole - s/p debridement, follow-up with cultures - repeat ERCP in 4 days - Palliative care consuly - Per request > dc ativan - GI prophylaxsis - monitor oral bleeding - labs am - PT/OT/Speech Result Diagram: 05/02/18 0817 05/01/18 0730 Results 24hrs Laboratory Tests Test 05/01/18 11:51 05/02/18 08:17 Lab Scanned Report REFERENCE LAB White Blood Count 5.5 # Red Blood Count 3.18 L Hemoglobin 8.9 L Hematocrit 28.5 L Mean Corpuscular Volume 89.6 Mean Corpuscular Hemoglobin 28.0 L Mean Corpuscular Hemoglobin Concent 31.2 L Red Cell Distribution Width 15.4 H Platelet Count 221 Mean Platelet Volume 10.3 Immature Granulocytes % 0.500 H Neutrophils % 76.3 Lymphocytes % 9.5 L Monocytes % 10.6 Eosinophils % 2.7 Basophils % 0.4 Nucleated Red Blood Cells % 0.0 Immature Granulocytes # 0.030 Neutrophils # 4.2 Lymphocytes # 0.5 L Monocytes # 0.6 Eosinophils # 0.2 Basophils # 0.0 Nucleated Red Blood Cells # 0.0 Total Bilirubin 0.0 L Direct Bilirubin 0.00 Indirect Bilirubin 0.0 Aspartate Amino Transf (AST/SGOT) 121 H Alanine Aminotransferase (ALT/SGPT) 32 Alkaline Phosphatase 349 #H Total Protein 6.8 Albumin 2.9 L Subjective 24 Hr Interval Summary Free Text/Dictation had fever of 102 yesterday Exam/Review of Systems Exam Vitals Vital Signs Date Temp Pulse Resp B/P (MAP) Pulse Ox O2 O2 Flow FiO2 Time Delivery Rate 05/02/18 78 19 100 30 09:42 05/02/18 99.0 09:08 05/02/18 115/92 Trach 07:54 (100) Collar Intake and Output 05/01/18 05/01/18 05/02/18 1515:00 23:00 07:00 IntakeIntake Total 250 ml 930 ml OutputOutput Total 400 ml BalanceBalance 250 ml 530 ml Exam ffrestraints Head: normocephalic Eyes: nl conjunctiva ENMT: other (tracheostomy) Neck: supple Respiratory: diminished breath sounds Cardiovascular: regular rate and rhythm Gastrointestinal: other (G tube) Results Results 24hrs Laboratory Tests Test 05/01/18 11:51 05/02/18 08:17 Lab Scanned Report REFERENCE LAB White Blood Count 5.5 # Red Blood Count 3.18 L Hemoglobin 8.9 L Hematocrit 28.5 L Mean Corpuscular Volume 89.6 Mean Corpuscular Hemoglobin 28.0 L Mean Corpuscular Hemoglobin Concent 31.2 L Red Cell Distribution Width 15.4 H Platelet Count 221 Mean Platelet Volume 10.3 Immature Granulocytes % 0.500 H Neutrophils % 76.3 Lymphocytes % 9.5 L Monocytes % 10.6 Eosinophils % 2.7 Basophils % 0.4 Nucleated Red Blood Cells % 0.0 Immature Granulocytes # 0.030 Neutrophils # 4.2 Lymphocytes # 0.5 L Monocytes # 0.6 Eosinophils # 0.2 Basophils # 0.0 Nucleated Red Blood Cells # 0.0 Total Bilirubin 0.0 L Direct Bilirubin 0.00 Indirect Bilirubin 0.0 Aspartate Amino Transf (AST/SGOT) 121 H Alanine Aminotransferase (ALT/SGPT) 32 Alkaline Phosphatase 349 #H Total Protein 6.8 Albumin 2.9 L Medications Medication Current Medications Acetaminophen (Tylenol Tab) 1,000 mg Q4 PRN PO MODERATE PAIN LEVEL 4-6 Last administered on 04/29/18 21:25; Admin Dose 1,000 MG; Start 03/31/18 at 18:00 Acetaminophen (Tylenol Tab) 650 mg Q4 PRN GTB MILD PAIN LEVEL 1-3 Last administered on 04/28/18 15:43; Admin Dose 650 MG; Start 03/31/18 at 18:00 Albuterol (Proventil 0.083% (Neb)) 2.5 mg Q6 PRN NEB WHEEZING AND SOB; Start 03/31/18 at 18:00 Ascorbic Acid (Vitamin C) 500 mg DAILY GTB Last administered on 05/02/18 08:20; Admin Dose 500 MG; Start 04/01/18 at 09:00 Bisacodyl (Dulcolax Supp) 10 mg DAILY PRN [place] CONSTIPATION; Start 03/31/18 at 18:00 Multivit/Ca Carb/ B Cmplx/FA/Prenat (Sofy-Sandoval) 1 tab DAILY GTB Last administered on 05/02/18 08:20; Admin Dose 1 TAB; Start 04/01/18 at 09:00 Zinc Sulfate (Zinc Sulfate) 220 mg DAILY GTB Last administered on 05/02/18 08:20; Admin Dose 220 MG; Start 04/01/18 at 09:00 IV Flush (NS 3 ml) 3 ml PER PROTOCOL IV ; Start 03/31/18 at 18:30 Ondansetron HCl (Zofran Inj) 4 mg Q6H PRN IV NAUSEA AND/OR VOMITING; Start 03/31/18 at 18:30 Acetaminophen (Tylenol Tab) 650 mg Q6H PRN PO PAIN LEVEL 1-3 OR FEVER Last administered on 05/02/18 08:23; Admin Dose 650 MG; Start 03/31/18 at 18:30 Acetaminophen (Tylenol Supp) 650 mg Q6H PRN [place] PAIN LEVEL 1-3 OR FEVER Last administered on 04/30/18 07:36; Admin Dose 650 MG; Start 03/31/18 at 18:30 Docusate Sodium (Colace) 100 mg Q12H PRN PO CONSTIPATION; Start 03/31/18 at 18:30 Alteplase, Recombinant (Cathflo (Activase)) 2 mg MAY REPEAT X1 PRN CATHETER IF CATHETER REMAINS OCCULUDED Last administered on 04/03/18 04:24; Admin Dose 2 MG; Start 04/01/18 at 21:00 Collagenase (Santyl) 1 applic DAILY TOP Last administered on 05/02/18 08:20; Admin Dose 1 APPLIC; Start 04/03/18 at 12:00 Morphine Sulfate (morphine) 6 mg Q4H PRN GTB SEVERE PAIN LEVEL 6-10 Last administered on 05/01/18 22:57; Admin Dose 6 MG; Start 04/04/18 at 23:00 Polyethylene Glycol (Miralax) 17 gm DAILY GTB Last administered on 05/02/18 08:21; Admin Dose 17 GM; Start 04/08/18 at 09:00 Carvedilol (Coreg) 50 mg BID GTB Last administered on 05/02/18 08:21; Admin Dose 50 MG; Start 04/08/18 at 21:00 Lansoprazole (Prevacid) 30 mg HS PO Last administered on 05/01/18 21:07; Admin Dose 30 MG; Start 04/20/18 at 21:00 Fluconazole (Diflucan) 100 mg DAILY PO Last administered on 05/02/18 08:20; Admin Dose 100 MG; Start 04/21/18 at 14:00 Amikacin Sulfate (Amikacin Iv Per Pharmacy) AMIKACIN PER PHARMACY NOTE XX ; Start 04/22/18 at 11:30 Aspirin (Aspirin) 81 mg DAILY PO Last administered on 05/02/18 08:20; Admin Dose 81 MG; Start 04/27/18 at 09:00 Albuterol (Proventil 0.083% (Neb)) 2.5 mg Q3H RESP THERAPY PRN NEB WHEEZING AND SOB; Start 04/30/18 at 19:00 Miscellaneous Information (*Order Clarification Bulletin) MEDICATION REQUIRES CLARIFICATI... Q8H XX ; Start 05/01/18 at 09:30 Meropenem/Sodium Chloride 50 ml @ 100 mls/hr Q8 IVPB Last administered on 05/02/18 10:07; Admin Dose 100 MLS/HR; Start 05/02/18 at 10:00 TAMARA GRAJEDA MD May 02, 2018 10:30
--- NOTE | 2018-05-02 10:34 | PN ---
Date/Time of Note Date/Time of Note DATE: 05/02/18 TIME: 10:31 Assessment/Plan Lines/Catheters IV Catheter Type (from [facility]): Saline Lock Schwartz in Place (from [facility]): Yes Assessment/Plan Chief Complaint/Hosp Course 1. Decubitus pressure ulcers with necrosis s/p exc milena 04/30 -Local care -Offload -Nutritional optimization -Vitamin C -Short-term zinc -Debridement prn 2. 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 Dilated cardiomyopathy with congestive heart failure and coronary artery disease with history of hypertension however initially presented with hypotension -Cardiac optimization -Judicious fluid management -Electrolyte optimization 4. Chronic renal disease -Judicious fluid management -Minimize nephrotoxic agents if possible 5. Dysphagia on tube feeds 6. Anemia s/p ercp 04/30 -Monitor 7. Ventilator dependent respiratory failure -Ventilator management and pulmonary toilet 8. Abnormal lipase and ca19-9 s/p ercp 04/30 with stricture and sphincterotomy -repeat ercp per gi -trend Thank you. Patient seen and examined in collaboration with Dr. Chet Melvin. Subjective 24 Hr Interval Summary Fevers. No labored breathing, congested cough, vomiting, diarrhea, sz, rash. Exam/Review of Systems Vital Signs Vitals Vital Signs Date Temp Pulse Resp B/P (MAP) Pulse Ox O2 O2 Flow FiO2 Time Delivery Rate 05/02/18 78 19 100 30 09:42 05/02/18 99.0 09:08 05/02/18 115/92 Trach 07:54 (100) Collar Intake and Output 05/01/18 05/01/18 05/02/18 1515:00 23:00 07:00 IntakeIntake Total 250 ml 930 ml OutputOutput Total 400 ml BalanceBalance 250 ml 530 ml Exam Free Text/Dictation Constitutional: No alert, No oriented Psych: confusion; No nl mood/affect Head: normocephalic Eyes: nl conjunctiva, PERRL; No icteric ENMT: nl lips & teeth, mucosa pink and dry; dried blood Neck: supple, jvd (Minimal), other (Trach in place) Respiratory: No congested cough, No labored breathing, No wheezing Cardiovascular: regular rate and rhythm; No edema Gastrointestinal: soft, non-tender, other (PEG); No distended, No rebound or guarding Genitourinary - Male: nl penis Musculoskeletal: No nl gait and stance, No joint tenderness Extremities: edema; No calf tenderness, No tenderness Neurological: No nl mental status, No nl speech, No nl strength Skin: rash or lesions (bilat buttock pressure decubitus wounds with dressing. Lower extremity wounds.), ecchymosis; No nl turgor, No diaphoresis Lymph: No nl lymph nodes Results Result Diagram: 05/02/18 0817 05/01/18 0730 AURE ENRIQUEZ NP May 02, 2018 10:34
--- NOTE | 2018-05-02 10:49 | CONS ---
Assessment/Plan Assessment/Plan Assessment/Plan (Daily) Sepsis syndrome Alcoholic liver disease with thickened stigmata including Fluid and electrolyte abnormalities Tonic kidney disease Vent ventilator dependent respiratory failure Alcoholic liver disease Cardiomyopathy Pancreatitis Altered mental state Diagnosis extremely poor and patient qualifies for outpatient hospice services I will contact social work service and asked to schedule a family conference. If there are no family members were available at this gentleman should be presented to bioethics. Consultation Date/Type/Reason Admit Date/Time Mar 31, 2018 at 17:58 Date/Time of Note DATE: 05/02/18 TIME: 10:46 Hx of Present Illness This is a 62-year-old gentleman who was brought in from [facility] unit w ith a history of PEG trach area presented with respiratory failure history of cardiomyopathy alcohol abuse. Patient was started on broad-spectrum IV antibiotic coverage treated for anemia presumably with transfusions but that is difficult to tell from patient's voluminous medical records. Treated for urinary tract infection and alcohol substance abuse and possible withdrawal. History of chronic renal insufficiency the patient presented with gingival eating robotic acidosis. He has long-standing history of alcohol abuse he was transferred from [facility] after he was found to be altered. Sepsis syndrome was treated while in-house, ventilator dependent respiratory failure was attended to by appropriate care by pulmonary medicine, patient had a history of dilated cardiomyopathy which is aggressively treated multiple sacral decubiti, fluid and electrolyte abnormalities she remains altered and encephalopathic patient is a full code patient's overall prognosis is extremely poor he still remains encephalopathic with chronic kidney disease which is worsening possible subacute infarct in left cerebral hemisphere and cerebral cerebellar peduncle has a overall severity of all his medical problems I have asked to see patient evaluate and speak to family members concerning ongoing goals of care grossly patient meets criteria for outpatient hospice services. But it is to be determined based on family's wishes. Unable to give a coherent past medical history or review of systems Past Medical History Medical History: congestive heart failure, diabetes, GERD, hepatitis, pancreatitis, peptic ulcer disease, renal disease, urinary tract infection Home Meds Reported Medications Cran/Vitc/Mannose/Inulin/Brom (Uti-Stat Liquid) 3,875 Mg/30 Ml Liquid, 3875 MG GTB DAILY 03/31/18 Ascorbic Acid* (Vitamin C*) 500 Mg Capsule.sa, 500 MG GTB DAILY, CAP 03/31/18 Zinc Sulfate* (Zinc Sulfate*) 220 Mg Tablet, 220 MG GTB DAILY, TAB 03/31/18 Acetaminophen* (Acetaminophen*) 650 Mg Tablet, 650 MG GTB Q4 PRN for MILD PAIN LEVEL 1-3, #30 TAB AND FEVER 03/31/18 Acetaminophen* (Acetaminophen*) 500 MG Extra Strength Tablet, 1000 MG GTB Q4 PRN for MODERATE PAIN LEVEL 4-6, TAB 03/31/18 Acetaminophen* (Acetaminophen*) 325 Mg Tablet, 650 MG GTB TRACH CHANGE PRN for PAIN, #30 TAB GIVE 30 MIN PRIOR TO CHANGE 03/31/18 Spironolactone* (Aldactone*) 25 Mg Tablet, 25 MG GTB DAILY, #30 TAB 03/31/18 Multivit/Ca Carb/B Cmplx/Fa* (Sofy-Sandoval*) 1 Tab Tab, 1 TAB GTB DAILY, TAB 03/31/18 Hydrocodone/Acetaminophen (Golden 5-325 Tablet) 1 Each Tablet, 1 EACH GTB BID, TAB 03/31/18 Midodrine* (Midodrine*) 5 Mg Tablet, 5 MG GTB BID, TAB HOLD FOR SBP ABOVE 110 03/31/18 Na Phos,M-B/Na Phos,Di-Ba (ENEMA KOAVZ-EY-LUT) 133 Ml Enema, 133 ML RC EVERY TWO DAYS PRN for CONSTIPATION, ENEMA 03/31/18 Bisacodyl (Dulcolax) 10 Mg Supp.rect, 10 MG RC DAILY PRN for CONSTIPATION, SUPP.RECT 03/31/18 Carvedilol* (Carvedilol*) 25 Mg Tablet, 25 MG GTB BID, #60 TAB HOLD FOR SBP BELOW 100 OR HR BELOW 50 03/31/18 Albuterol Sulfate* (Albuterol Sulfate* Neb) 0.083%-3 Ml Neb, 2.5 MG NEB Q6 PRN for WHEEZING AND SOB, #30 VIAL 03/31/18 Albuterol Sulfate* (Albuterol Sulfate* Neb) 0.083%-3 Ml Neb, 2.5 MG NEB Q3H PRN for WHEEZING AND SOB, #30 VIAL 03/31/18 Lactobacillus Acidophilus/Pect (Acidophilus-Pectin Capsule) 1 Each Capsule, 1 EACH GTB DAILY, CAP 03/31/18 Medications Current Medications Acetaminophen (Tylenol Tab) 1,000 mg Q4 PRN PO MODERATE PAIN LEVEL 4-6 Last administered on 04/29/18 21:25; Admin Dose 1,000 MG; Start 03/31/18 at 18:00 Acetaminophen (Tylenol Tab) 650 mg Q4 PRN GTB MILD PAIN LEVEL 1-3 Last adminis tered on 04/28/18 15:43; Admin Dose 650 MG; Start 03/31/18 at 18:00 Albuterol (Proventil 0.083% (Neb)) 2.5 mg Q6 PRN NEB WHEEZING AND SOB; Start 03/31/18 at 18:00 Ascorbic Acid (Vitamin C) 500 mg DAILY GTB Last administered on 05/02/18 08:20; Admin Dose 500 MG; Start 04/01/18 at 09:00 Bisacodyl (Dulcolax Supp) 10 mg DAILY PRN IN CONSTIPATION; Start 03/31/18 at 18:00 Multivit/Ca Carb/ B Cmplx/FA/Prenat (Sofy-Sandoval) 1 tab DAILY GTB Last administered on 05/02/18 08:20; Admin Dose 1 TAB; Start 04/01/18 at 09:00 Zinc Sulfate (Zinc Sulfate) 220 mg DAILY GTB Last administered on 05/02/18 08:20; Admin Dose 220 MG; Start 04/01/18 at 09:00 IV Flush (NS 3 ml) 3 ml PER PROTOCOL IV ; Start 03/31/18 at 18:30 Ondansetron HCl (Zofran Inj) 4 mg Q6H PRN IV NAUSEA AND/OR VOMITING; Start 03/31/18 at 18:30 Acetaminophen (Tylenol Tab) 650 mg Q6H PRN PO PAIN LEVEL 1-3 OR FEVER Last administered on 05/02/18 08:23; Admin Dose 650 MG; Start 03/31/18 at 18:30 Acetaminophen (Tylenol Supp) 650 mg Q6H PRN IN PAIN LEVEL 1-3 OR FEVER Last administered on 04/30/18 07:36; Admin Dose 650 MG; Start 03/31/18 at 18:30 Docusate Sodium (Colace) 100 mg Q12H PRN PO CONSTIPATION; Start 03/31/18 at 18:30 Alteplase, Recombinant (Cathflo (Activase)) 2 mg MAY REPEAT X1 PRN CATHETER IF CATHETER REMAINS OCCULUDED Last administered on 04/03/18 04:24; Admin Dose 2 MG; Start 04/01/18 at 21:00 Collagenase (Santyl) 1 applic DAILY TOP Last administered on 05/02/18 08:20; Admin Dose 1 APPLIC; Start 04/03/18 at 12:00 Morphine Sulfate (morphine) 6 mg Q4H PRN GTB SEVERE PAIN LEVEL 6-10 Last administered on 05/01/18 22:57; Admin Dose 6 MG; Start 04/04/18 at 23:00 Polyethylene Glycol (Miralax) 17 gm DAILY GTB Last administered on 05/02/18 08:21; Admin Dose 17 GM; Start 04/08/18 at 09:00 Carvedilol (Coreg) 50 mg BID GTB Last administered on 05/02/18 08:21; Admin Dose 50 MG; Start 04/08/18 at 21:00 Lansoprazole (Prevacid) 30 mg HS PO Last administered on 05/01/18 21:07; Admin Dose 30 MG; Start 04/20/18 at 21:00 Fluconazole (Diflucan) 100 mg DAILY PO Last administered on 05/02/18 08:20; Admin Dose 100 MG; Start 04/21/18 at 14:00 Amikacin Sulfate (Amikacin Iv Per Pharmacy) AMIKACIN PER PHARMACY NOTE XX ; Start 04/22/18 at 11:30 Aspirin (Aspirin) 81 mg DAILY PO Last administered on 05/02/18 08:20; Admin Dose 81 MG; Start 04/27/18 at 09:00 Albuterol (Proventil 0.083% (Neb)) 2.5 mg Q3H RESP THERAPY PRN NEB WHEEZING AND SOB; Start 04/30/18 at 19:00 Miscellaneous Information (*Order Clarification Bulletin) MEDICATION REQUIRES CLARIFICATI... Q8H XX ; Start 05/01/18 at 09:30 Meropenem/Sodium Chloride 50 ml @ 100 mls/hr Q8 IVPB Last administered on 05/02/18 10:07; Admin Dose 100 MLS/HR; Start 05/02/18 at 10:00 Allergies: Coded Allergies: No Known Allergy (Unverified , 04/30/18) Past Surgical History Past Surgical Hx: other (Known) Social History Alcohol Use: occasionally Smoking Status: Unknown if ever smoked Exam/Review of Systems Exam Vitals Vital Signs Date Temp Pulse Resp B/P (MAP) Pulse Ox O2 O2 Flow FiO2 Time Delivery Rate 05/02/18 78 19 100 30 09:42 05/02/18 99.0 09:08 05/02/18 115/92 Trach 07:54 (100) Collar Intake and Output 05/01/18 05/01/18 05/02/18 1515:00 23:00 07:00 IntakeIntake Total 250 ml 930 ml OutputOutput Total 400 ml BalanceBalance 250 ml 530 ml Constitutional: non-verbal, distress, frail Psych: anxiety Head: normocephalic, atraumatic Eyes: nl conjunctiva, EOMI, nl lids, nl sclera, PERRL; No icteric, No fundi, disc, No other ENMT: nl external ears & nose, nl lips & teeth, nl nasal mucosa & septum; No mucosa pink and moist, No intubated, No tympanic membranes, No other Respiratory: clear to auscultation, normal air movement; No congested cough, No crackles/rales, No diminished breath sounds, No intercostal retraction, No labored breathing, No respirations, No tactile fremitus, No wheezing, No other Cardiovascular: regular rate and rhythm, nl pulses; No bruits, No diastolic murmur, No edema, No gallop, No irregular rhythm, No jugular venous distention (JVD), No murmurs/extra sounds, No rub, No systolic murmur, No S3, No S4, No other Gastrointestinal: other (Abdomen grossly benign active bowel sounds throughout all 4 quadrants without rebound or peritoneal signs without organomegaly masses) Neurological: other (Oriented x0 cranial nerves II through XII grossly intact motor sensory findings to not move purposefully spends a simple tactile stimulation to the cephalic sluggish bilaterally) Results Result Diagram: 05/02/18 0817 05/01/18 0730 Results 24hrs Laboratory Tests Test 05/01/18 11:51 05/02/18 08:17 Lab Scanned Report REFERENCE LAB White Blood Count 5.5 # Red Blood Count 3.18 L Hemoglobin 8.9 L Hematocrit 28.5 L Mean Corpuscular Volume 89.6 Mean Corpuscular Hemoglobin 28.0 L Mean Corpuscular Hemoglobin Concent 31.2 L Red Cell Distribution Width 15.4 H Platelet Count 221 Mean Platelet Volume 10.3 Immature Granulocytes % 0.500 H Neutrophils % 76.3 Lymphocytes % 9.5 L Monocytes % 10.6 Eosinophils % 2.7 Basophils % 0.4 Nucleated Red Blood Cells % 0.0 Immature Granulocytes # 0.030 Neutrophils # 4.2 Lymphocytes # 0.5 L Monocytes # 0.6 Eosinophils # 0.2 Basophils # 0.0 Nucleated Red Blood Cells # 0.0 Total Bilirubin 0.0 L Direct Bilirubin 0.00 Indirect Bilirubin 0.0 Aspartate Amino Transf (AST/SGOT) 121 H Alanine Aminotransferase (ALT/SGPT) 32 Alkaline Phosphatase 349 #H Total Protein 6.8 Albumin 2.9 L Medications Medication Current Medications Acetaminophen (Tylenol Tab) 1,000 mg Q4 PRN PO MODERATE PAIN LEVEL 4-6 Last administered on 04/29/18 21:25; Admin Dose 1,000 MG; Start 03/31/18 at 18:00 Acetaminophen (Tylenol Tab) 650 mg Q4 PRN GTB MILD PAIN LEVEL 1-3 Last administered on 04/28/18 15:43; Admin Dose 650 MG; Start 03/31/18 at 18:00 Albuterol (Proventil 0.083% (Neb)) 2.5 mg Q6 PRN NEB WHEEZING AND SOB; Start 03/31/18 at 18:00 Ascorbic Acid (Vitamin C) 500 mg DAILY GTB Last administered on 05/02/18 08:20; Admin Dose 500 MG; Start 04/01/18 at 09:00 Bisacodyl (Dulcolax Supp) 10 mg DAILY PRN IN CONSTIPATION; Start 03/31/18 at 18:00 Multivit/Ca Carb/ B Cmplx/FA/Prenat (Sofy-Sandoval) 1 tab DAILY GTB Last administered on 05/02/18 08:20; Admin Dose 1 TAB; Start 04/01/18 at 09:00 Zinc Sulfate (Zinc Sulfate) 220 mg DAILY GTB Last administered on 05/02/18 08:20; Admin Dose 220 MG; Start 04/01/18 at 09:00 IV Flush (NS 3 ml) 3 ml PER PROTOCOL IV ; Start 03/31/18 at 18:30 Ondansetron HCl (Zofran Inj) 4 mg Q6H PRN IV NAUSEA AND/OR VOMITING; Start 03/31/18 at 18:30 Acetaminophen (Tylenol Tab) 650 mg Q6H PRN PO PAIN LEVEL 1-3 OR FEVER Last administered on 05/02/18 08:23; Admin Dose 650 MG; Start 03/31/18 at 18:30 Acetaminophen (Tylenol Supp) 650 mg Q6H PRN IN PAIN LEVEL 1-3 OR FEVER Last administered on 04/30/18 07:36; Admin Dose 650 MG; Start 03/31/18 at 18:30 Docusate Sodium (Colace) 100 mg Q12H PRN PO CONSTIPATION; Start 03/31/18 at 18:30 Alteplase, Recombinant (Cathflo (Activase)) 2 mg MAY REPEAT X1 PRN CATHETER IF CATHETER REMAINS OCCULUDED Last administered on 04/03/18 04:24; Admin Dose 2 MG; Start 04/01/18 at 21:00 Collagenase (Santyl) 1 applic DAILY TOP Last administered on 05/02/18 08:20; Admin Dose 1 APPLIC; Start 04/03/18 at 12:00 Morphine Sulfate (morphine) 6 mg Q4H PRN GTB SEVERE PAIN LEVEL 6-10 Last administered on 05/01/18 22:57; Admin Dose 6 MG; Start 04/04/18 at 23:00 Polyethylene Glycol (Miralax) 17 gm DAILY GTB Last administered on 05/02/18 08:21; Admin Dose 17 GM; Start 04/08/18 at 09:00 Carvedilol (Coreg) 50 mg BID GTB Last administered on 05/02/18 08:21; Admin Dose 50 MG; Start 04/08/18 at 21:00 Lansoprazole (Prevacid) 30 mg HS PO Last administered on 05/01/18 21:07; Admin Dose 30 MG; Start 04/20/18 at 21:00 Fluconazole (Diflucan) 100 mg DAILY PO Last administered on 05/02/18 08:20; Admin Dose 100 MG; Start 04/21/18 at 14:00 Amikacin Sulfate (Amikacin Iv Per Pharmacy) AMIKACIN PER PHARMACY NOTE XX ; Start 04/22/18 at 11:30 Aspirin (Aspirin) 81 mg DAILY PO Last administered on 05/02/18 08:20; Admin Dose 81 MG; Start 04/27/18 at 09:00 Albuterol (Proventil 0.083% (Neb)) 2.5 mg Q3H RESP THERAPY PRN NEB WHEEZING AND SOB; Start 04/30/18 at 19:00 Miscellaneous Information (*Order Clarification Bulletin) MEDICATION REQUIRES CLARIFICATI... Q8H XX ; Start 05/01/18 at 09:30 Meropenem/Sodium Chloride 50 ml @ 100 mls/hr Q8 IVPB Last administered on 05/02/18at 10:07; Admin Dose 100 MLS/HR; Start 05/02/18 at 10:00 DASH ESCALANTE May 02, 2018 10:49
--- NOTE | 2018-05-02 14:19 | CONS ---
Assessment/Plan Assessment/Plan Hospital Course (Demo Recall) + fevers Antimicrobials: Merrem fluconazole Indwelling: Trach PEG Schwartz. Microbiology: urine culture + Pseudomonas/C alb Physical examination: Chronically ill-appearing elderly man who is noncommunicative in no distress. Head atraumatic normocephalic sclera nonicteric neck is supple tracheostomy present chest rise symmetrical breath sounds diminished bases heart: S1-S2. Abdomen soft bowel sounds present. Extremities without cyanosis. Skin: Patient has multiple pressure sores he has a dry blood on the right lower lip Assessment: 1. Sepsis secondary to urinary tract infection and HCAP 2. 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 VDRF 3. Dysphagia 4. Chronic encephalopathy 5. History of cardiomyopathy 6. Sacral decub, s/p debridement 04/30/18 7. MRSA nares colonization 8. Elevated amylase and lipase of unclear etiology Plan: Clinically unchanged, with ongoing fevers, suspect malignancy, abx changed to Merrem, consider hematology eval Consultation Date/Type/Reason Admit Date/Time Mar 31, 2018 at 17:58 Initial Consult Date 04/02/18 Type of Consult id Requesting Provider: TAMARA GRAJEDA MD Date/Time of Note DATE: 05/02/18 TIME: 14:17 Exam/Review of Systems Exam Vitals Vital Signs Date Temp Pulse Resp B/P (MAP) Pulse Ox O2 O2 Flow FiO2 Time Delivery Rate 05/02/18 69 12:36 05/02/18 100 30 11:44 05/02/18 97.7 101/70 Trach 11:22 (80) Collar Intake and Output 05/01/18 05/01/18 05/02/18 1515:00 23:00 07:00 IntakeIntake Total 250 ml 930 ml OutputOutput Total 400 ml BalanceBalance 250 ml 530 ml Results Result Diagram: 05/02/18 0817 05/01/18 0730 Results 24hrs Laboratory Tests Test 05/02/18 08:17 White Blood Count 5.5 # Red Blood Count 3.18 L Hemoglobin 8.9 L Hematocrit 28.5 L Mean Corpuscular Volume 89.6 Mean Corpuscular Hemoglobin 28.0 L Mean Corpuscular Hemoglobin Concent 31.2 L Red Cell Distribution Width 15.4 H Platelet Count 221 Mean Platelet Volume 10.3 Immature Granulocytes % 0.500 H Neutrophils % 76.3 Lymphocytes % 9.5 L Monocytes % 10.6 Eosinophils % 2.7 Basophils % 0.4 Nucleated Red Blood Cells % 0.0 Immature Granulocytes # 0.030 Neutrophils # 4.2 Lymphocytes # 0.5 L Monocytes # 0.6 Eosinophils # 0.2 Basophils # 0.0 Nucleated Red Blood Cells # 0.0 Total Bilirubin 0.0 L Direct Bilirubin 0.00 Indirect Bilirubin 0.0 Aspartate Amino Transf (AST/SGOT) 121 H Alanine Aminotransferase (ALT/SGPT) 32 Alkaline Phosphatase 349 #H Total Protein 6.8 Albumin 2.9 L Medications Medication Current Medications Acetaminophen (Tylenol Tab) 1,000 mg Q4 PRN PO MODERATE PAIN LEVEL 4-6 Last administered on 04/29/18 21:25; Admin Dose 1,000 MG; Start 03/31/18 at 18:00 Acetaminophen (Tylenol Tab) 650 mg Q4 PRN GTB MILD PAIN LEVEL 1-3 Last administered on 04/28/18 15:43; Admin Dose 650 MG; Start 03/31/18 at 18:00 Albuterol (Proventil 0.083% (Neb)) 2.5 mg Q6 PRN NEB WHEEZING AND SOB; Start 03/31/18 at 18:00 Ascorbic Acid (Vitamin C) 500 mg DAILY GTB Last administered on 05/02/18 08:20; Admin Dose 500 MG; Start 04/01/18 at 09:00 Bisacodyl (Dulcolax Supp) 10 mg DAILY PRN LA CONSTIPATION; Start 03/31/18 at 18:00 Multivit/Ca Carb/ B Cmplx/FA/Prenat (Sofy-Sandoval) 1 tab DAILY GTB Last administered on 05/02/18 08:20; Admin Dose 1 TAB; Start 04/01/18 at 09:00 Zinc Sulfate (Zinc Sulfate) 220 mg DAILY GTB Last administered on 05/02/18 08:20; Admin Dose 220 MG; Start 04/01/18 at 09:00 IV Flush (NS 3 ml) 3 ml PER PROTOCOL IV ; Start 03/31/18 at 18:30 Ondansetron HCl (Zofran Inj) 4 mg Q6H PRN IV NAUSEA AND/OR VOMITING; Start 03/31/18 at 18:30 Acetaminophen (Tylenol Tab) 650 mg Q6H PRN PO PAIN LEVEL 1-3 OR FEVER Last administered on 05/02/18 08:23; Admin Dose 650 MG; Start 03/31/18 at 18:30 Acetaminophen (Tylenol Supp) 650 mg Q6H PRN LA PAIN LEVEL 1-3 OR FEVER Last administered on 04/30/18 07:36; Admin Dose 650 MG; Start 03/31/18 at 18:30 Docusate Sodium (Colace) 100 mg Q12H PRN PO CONSTIPATION; Start 03/31/18 at 18:30 Alteplase, Recombinant (Cathflo (Activase)) 2 mg MAY REPEAT X1 PRN CATHETER IF CATHETER REMAINS OCCULUDED Last administered on 04/03/18 04:24; Admin Dose 2 MG; Start 04/01/18 at 21:00 Collagenase (Santyl) 1 applic DAILY TOP Last administered on 05/02/18 08:20; Admin Dose 1 APPLIC; Start 04/03/18 at 12:00 Morphine Sulfate (morphine) 6 mg Q4H PRN GTB SEVERE PAIN LEVEL 6-10 Last administered on 05/01/18 22:57; Admin Dose 6 MG; Start 04/04/18 at 23:00 Polyethylene Glycol (Miralax) 17 gm DAILY GTB Last administered on 05/02/18 08:21; Admin Dose 17 GM; Start 04/08/18 at 09:00 Carvedilol (Coreg) 50 mg BID GTB Last administered on 05/02/18 08:21; Admin Dose 50 MG; Start 04/08/18 at 21:00 Lansoprazole (Prevacid) 30 mg HS PO Last administered on 05/01/18 21:07; Admin Dose 30 MG; Start 04/20/18 at 21:00 Fluconazole (Diflucan) 100 mg DAILY PO Last administered on 05/02/18 08:20; Admin Dose 100 MG; Start 04/21/18 at 14:00 Amikacin Sulfate (Amikacin Iv Per Pharmacy) AMIKACIN PER PHARMACY NOTE XX ; S tart 04/22/18 at 11:30 Aspirin (Aspirin) 81 mg DAILY PO Last administered on 05/02/18 08:20; Admin D ose 81 MG; Start 04/27/18 at 09:00 Albuterol (Proventil 0.083% (Neb)) 2.5 mg Q3H RESP THERAPY PRN NEB WHEEZING AND SOB; Start 04/30/18 at 19:00 Miscellaneous Information (*Order Clarification Bulletin) MEDICATION REQUIRES CLARIFICATI... Q8H XX ; Start 05/01/18 at 09:30 Meropenem/Sodium Chloride 50 ml @ 100 mls/hr Q8 IVPB Last administered on 05/02/18at 10:07; Admin Dose 100 MLS/HR; Start 05/02/18 at 10:00 RENÉ GARCIA NP May 02, 2018 14:19
[2018-05-02] MEDS: LANSOPRAZOLE 30 MG CAP PO SCH (21:24)
[2018-05-03] VITALS (22 sets, daily range): BP systolic 95–135; BP diastolic 55–83; PULSE 79–94; RESP 19–32
[2018-05-03] MEDS: MEROPENEM 1 GM/50ML(PMX) 50 ML IVPB SCH ×3 (05:25→21:06)
--- NOTE | 2018-05-03 09:11 | CONS ---
Assessment/Plan Assessment/Plan Hospital Course (Demo Recall) 62 male with excessively bleeding gingival tissue and severe anemia 1. Severe acute on chronic anemia likely due to blood loss from gingival bleeding 3. Chronic liver disease, alcohol related 4. Mild coagulopathy 5. Elevated lipase with mildly elevated CA 19-9 -on CT scan pancreas is normal -lipid panel wnl -CBD 6mm, LFT wnl -Radiology will not do MRCP because of vent 6. Chronic kidney disease -BUN/harbor master wnl 7. Encephalopathy secondary to anoxic brain injury 8. H/o duodenal ulcer 9. Complex UTI with lisa albicans, s/p diflucan 10. 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 Persistent fevers -etiology- carcinoma? 12. Abnormal LFTs -liver disease -trending down Plan: Monitor LFT and WBC Repeat ERCP on Sunday Monitor closely for GI bleeding and HH, FOB Continue abx Pt examined and plan of care discussed with Dr. Peña Consultation Date/Type/Reason Admit Date/Time Mar 31, 2018 at 17:58 Initial Consult Date 04/02/18 Requesting Provider: TAMARA GRAJEDA MD Date/Time of Note DATE: 05/03/18 TIME: 08:56 24 HR Interval Summary Free Text/Dictation Continues to fevers. WBC wnl. hgb dropped to 7.8. No evidence of GI bleeding . Exam/Review of Systems Exam Vitals Vital Signs Date Temp Pulse Resp B/P (MAP) Pulse Ox O2 O2 Flow FiO2 Time Delivery Rate 05/03/18 98.6 89 19 111/75 97 08:15 (87) 05/03/18 30 04:55 05/02/18 Trach 15:03 Collar Intake and Output 05/02/18 05/02/18 05/03/18 1515:00 23:00 07:00 IntakeIntake Total 475 ml 930 ml 850 ml OutputOutput Total 600 ml 900 ml 800 ml BalanceBalance -125 ml 30 ml 50 ml ENMT: other (small amount of dried blood on lips) Gastrointestinal: soft, other (no non verbal cues of pain during palpitation. Pos bowel sounds) Results Result Diagram: 05/03/18 0459 05/03/18 0459 Results 24hrs Laboratory Tests Test 05/03/18 04:59 White Blood Count 6.2 Red Blood Count 2.79 L Hemoglobin 7.8 L Hematocrit 25.2 L Mean Corpuscular Volume 90.3 Mean Corpuscular Hemoglobin 28.0 L Mean Corpuscular Hemoglobin Concent 31.0 L Red Cell Distribution Width 15.7 H Platelet Count 242 Mean Platelet Volume 10.2 Immature Granulocytes % 0.500 H Neutrophils % 80.5 H Lymphocytes % 7.1 L Monocytes % 8.7 Eosinophils % 2.7 Basophils % 0.5 Nucleated Red Blood Cells % 0.0 Immature Granulocytes # 0.030 Neutrophils # 5.0 Lymphocytes # 0.4 L Monocytes # 0.5 Eosinophils # 0.2 Basophils # 0.0 Nucleated Red Blood Cells # 0.0 Sodium Level 139 Potassium Level 4.7 Chloride Level 110 Carbon Dioxide Level 21 Anion Gap 8 Blood Urea Nitrogen 38 #H Creatinine 0.94 Est Glomerular Filtrat Rate mL/min > 60 Glucose Level 104 Calcium Level 8.5 Total Bilirubin 0.0 L Direct Bilirubin 0.00 Indirect Bilirubin 0.0 Aspartate Amino Transf (AST/SGOT) 98 H Alanine Aminotransferase (ALT/SGPT) 35 Alkaline Phosphatase 303 H Total Protein 6.9 Albumin 2.9 L Globulin 4.00 H Albumin/Globulin Ratio 0.72 Medications Medication Current Medications Ascorbic Acid (Vitamin C) 500 mg DAILY GTB Last administered on 05/02/18 08:20; Admin Dose 500 MG; Start 04/01/18 at 09:00 Multivit/Ca Carb/ B Cmplx/FA/Prenat (Sofy-Sandoval) 1 tab DAILY GTB Last administered on 05/02/18 08:20; Admin Dose 1 TAB; Start 04/01/18 at 09:00 Zinc Sulfate (Zinc Sulfate) 220 mg DAILY GTB Last administered on 05/02/18 08:20; Admin Dose 220 MG; Start 04/01/18 at 09:00 Alteplase, Recombinant (Cathflo (Activase)) 2 mg MAY REPEAT X1 PRN CATHETER IF CATHETER REMAINS OCCULUDED Last administered on 04/03/18at 04:24; Admin Dose 2 MG; Start 04/01/18 at 21:00 Collagenase (Santyl) 1 applic DAILY TOP Last administered on 05/02/18 08:20; Admin Dose 1 APPLIC; Start 04/03/18 at 12:00 Morphine Sulfate (morphine) 6 mg Q4H PRN GTB SEVERE PAIN LEVEL 6-10 Last administered on 05/01/18 22:57; Admin Dose 6 MG; Start 04/04/18 at 23:00 Polyethylene Glycol (Miralax) 17 gm DAILY GTB Last administered on 05/02/18 08:21; Admin Dose 17 GM; Start 04/08/18 at 09:00 Carvedilol (Coreg) 50 mg BID GTB Last administered on 05/02/18 21:25; Admin Do se 50 MG; Start 04/08/18 at 21:00 Lansoprazole (Prevacid) 30 mg HS PO Last administered on 05/02/18 21:24; Admin Dose 30 MG; Start 04/20/18 at 21:00 Fluconazole (Diflucan) 100 mg DAILY PO Last administered on 05/02/18 08:20; Admin Dose 100 MG; Start 04/21/18 at 14:00 Aspirin (Aspirin) 81 mg DAILY PO Last administered on 05/02/18 08:20; Admin Dose 81 MG; Start 04/27/18 at 09:00 Albuterol (Proventil 0.083% (Neb)) 2.5 mg Q3H RESP THERAPY PRN NEB WHEEZING AND SOB; Start 04/30/18 at 19:00 Miscellaneous Information (*Order Clarification Bulletin) MEDICATION REQUIRES CLARIFICATI... Q8H XX ; Start 05/01/18 at 09:30 Meropenem/Sodium Chloride 50 ml @ 100 mls/hr Q8 IVPB Last administered on 05/03/18 05:25; Admin Dose 100 MLS/HR; Start 05/02/18 at 10:00 QI CHRISTIANSON May 03, 2018 09:07
[2018-05-03] MEDS: FLUCONAZOLE 100 MG TAB PO SCH (09:36)
[2018-05-03] MEDS: ASPIRIN 81 MG TAB PO SCH (09:37)
[2018-05-03] MEDS: BALSAM PERU/CASTOR OIL 60 GM TUBE TOP SCH ×2 (09:38→21:07)
[2018-05-03] MEDS: POLYETHYLENE GLYCOL 17 GM PACKET GTB SCH (09:38)
--- NOTE | 2018-05-03 11:23 | PN ---
Date/Time of Note Date/Time of Note DATE: 05/03/18 TIME: 11:21 Assessment/Plan Lines/Catheters IV Catheter Type (from [facility]): Saline Lock Schwartz in Place (from Nrs): Yes Assessment/Plan Chief Complaint/Hosp Course 1. Decubitus pressure ulcers with necrosis s/p exc milena 04/30 -Local care -Offload -Nutritional optimization -Vitamin C -Short-term zinc -Debridement prn 2. 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 Dilated cardiomyopathy with congestive heart failure and coronary artery disease with history of hypertension however initially presented with hypotension -Cardiac optimization -Judicious fluid management -Electrolyte optimization 4. Chronic renal disease -Judicious fluid management -Minimize nephrotoxic agents if possible 5. Dysphagia on tube feeds 6. Anemia s/p ercp 04/30 -Monitor 7. Ventilator dependent respiratory failure -Ventilator management and pulmonary toilet 8. Abnormal lipase and ca19-9 s/p ercp 04/30 with stricture and sphincterotomy -repeat ercp per gi pending -trend 9. Poor quality of life -family meeting with palliative pending Thank you. Patient seen and examined in collaboration with Dr. Chet Melvin. Subjective 24 Hr Interval Summary Appears comfortable. Nonverbal indicators of pain not present. No fevers, congested cough, acute bleeding, vomiting, diarrhea, sz, rash, excessive wound drainage or odor. Exam/Review of Systems Vital Signs Vitals Vital Signs Date Temp Pulse Resp B/P (MAP) Pulse Ox O2 O2 Flow FiO2 Time Delivery Rate 05/03/18 94 09:37 05/03/18 32 96 30 09:26 05/03/18 98.6 111/75 08:15 (87) 05/02/18 Trach 15:03 Collar Intake and Output 05/02/18 05/02/18 05/03/18 1515:00 23:00 07:00 IntakeIntake Total 475 ml 930 ml 850 ml OutputOutput Total 600 ml 900 ml 800 ml BalanceBalance -125 ml 30 ml 50 ml Exam Free Text/Dictation Constitutional: No alert, No oriented Psych: confusion; No nl mood/affect Head: normocephalic Eyes: nl conjunctiva, PERRL; No icteric ENMT: nl lips & teeth, mucosa pink and dry; dried blood Neck: supple, jvd (Minimal), other (Trach in place) Respiratory: No congested cough, No labored breathing, No wheezing Cardiovascular: regular rate and rhythm; No edema Gastrointestinal: soft, non-tender, other (PEG); No distended, No rebound or guarding Genitourinary - Male: nl penis Musculoskeletal: No nl gait and stance, No joint tenderness Extremities: edema; No calf tenderness, No tenderness Neurological: No nl mental status, No nl speech, No nl strength Skin: rash or lesions (bilat buttock pressure decubitus wounds with dressing. Lower extremity wounds.), ecchymosis; No nl turgor, No diaphoresis Lymph: No nl lymph nodes Results Result Diagram: 05/03/18 0459 05/03/18 0459 AURE ENRIQUEZ NP May 03, 2018 11:23
--- NOTE | 2018-05-03 11:38 | CONS ---
Assessment/Plan Assessment/Plan Hospital Course (Demo Recall) No acute events, had been afebrile, looks comfortable Antimicrobials: Merrem fluconazole Indwelling: Trach PEG Schwartz. Microbiology: urine culture + Pseudomonas/C alb Physical examination: Chronically ill-appearing elderly man who is noncommunicative in no distress. Head atraumatic normocephalic sclera nonicteric neck is supple tracheostomy present chest rise symmetrical breath sounds diminished bases heart: S1-S2. Abdomen soft bowel sounds present. Extremities without cyanosis. Skin: Patient has multiple pressure sores he has a dry blood on the right lower lip Assessment: 1. Sepsis secondary to urinary tract infection and HCAP 2. 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 VDRF 3. Dysphagia 4. Chronic encephalopathy 5. History of cardiomyopathy 6. Sacral decub, s/p debridement 04/30/18 7. MRSA nares colonization 8. Elevated amylase and lipase of unclear etiology Plan: Clinically unchanged, continue abx, consider hematology eval given ongoing fevers Consultation Date/Type/Reason Admit Date/Time Mar 31, 2018 at 17:58 Initial Consult Date 04/02/18 Type of Consult id Requesting Provider: TAMARA GRAJEDA MD Date/Time of Note DATE: 05/03/18 TIME: 11:37 Exam/Review of Systems Exam Vitals Vital Signs Date Temp Pulse Resp B/P (MAP) Pulse Ox O2 O2 Flow FiO2 Time Delivery Rate 05/03/18 94 09:37 05/03/18 32 96 30 09:26 05/03/18 98.6 111/75 08:15 (87) 05/02/18 Trach 15:03 Collar Intake and Output 05/02/18 05/02/18 05/03/18 1515:00 23:00 07:00 IntakeIntake Total 475 ml 930 ml 850 ml OutputOutput Total 600 ml 900 ml 800 ml BalanceBalance -125 ml 30 ml 50 ml Results Result Diagram: 05/03/18 0459 05/03/18 0459 Results 24hrs Laboratory Tests Test 05/03/18 04:59 White Blood Count 6.2 Red Blood Count 2.79 L Hemoglobin 7.8 L Hematocrit 25.2 L Mean Corpuscular Volume 90.3 Mean Corpuscular Hemoglobin 28.0 L Mean Corpuscular Hemoglobin Concent 31.0 L Red Cell Distribution Width 15.7 H Platelet Count 242 Mean Platelet Volume 10.2 Immature Granulocytes % 0.500 H Neutrophils % 80.5 H Lymphocytes % 7.1 L Monocytes % 8.7 Eosinophils % 2.7 Basophils % 0.5 Nucleated Red Blood Cells % 0.0 Immature Granulocytes # 0.030 Neutrophils # 5.0 Lymphocytes # 0.4 L Monocytes # 0.5 Eosinophils # 0.2 Basophils # 0.0 Nucleated Red Blood Cells # 0.0 Sodium Level 139 Potassium Level 4.7 Chloride Level 110 Carbon Dioxide Level 21 Anion Gap 8 Blood Urea Nitrogen 38 #H Creatinine 0.94 Est Glomerular Filtrat Rate mL/min > 60 Glucose Level 104 Calcium Level 8.5 Total Bilirubin 0.0 L Direct Bilirubin 0.00 Indirect Bilirubin 0.0 Aspartate Amino Transf (AST/SGOT) 98 H Alanine Aminotransferase (ALT/SGPT) 35 Alkaline Phosphatase 303 H Total Protein 6.9 Albumin 2.9 L Globulin 4.00 H Albumin/Globulin Ratio 0.72 Random Amikacin Level <2.5 L Medications Medication Current Medications Alteplase, Recombinant (Cathflo (Activase)) 2 mg MAY REPEAT X1 PRN CATHETER IF CATHETER REMAINS OCCULUDED Last administered on 04/03/18 04:24; Admin Dose 2 MG; Start 04/01/18 at 21:00 Collagenase (Santyl) 1 applic DAILY TOP Last administered on 05/02/18 08:20; Admin Dose 1 APPLIC; Start 04/03/18 at 12:00 Morphine Sulfate (morphine) 6 mg Q4H PRN GTB SEVERE PAIN LEVEL 6-10 Last administered on 05/01/18 22:57; Admin Dose 6 MG; Start 04/04/18 at 23:00 Polyethylene Glycol (Miralax) 17 gm DAILY GTB Last administered on 05/03/18 09:38; Admin Dose 17 GM; Start 04/08/18 at 09:00 Carvedilol (Coreg) 50 mg BID GTB Last administered on 05/03/18 09:37; Admin Dose 50 MG; Start 04/08/18 at 21:00 Lansoprazole (Prevacid) 30 mg HS PO Last administered on 05/02/18 21:24; Admin Dose 30 MG; Start 04/20/18 at 21:00 Fluconazole (Diflucan) 100 mg DAILY PO Last administered on 05/03/18at 09:36; Admin Dose 100 MG; Start 04/21/18 at 14:00 Aspirin (Aspirin) 81 mg DAILY PO Last administered on 05/03/18at 09:37; Admin Dose 81 MG; Start 04/27/18 at 09:00 Albuterol (Proventil 0.083% (Neb)) 2.5 mg Q3H RESP THERAPY PRN NEB WHEEZING AND SOB; Start 04/30/18 at 19:00 Miscellaneous Information (*Order Clarification Bulletin) MEDICATION REQUIRES CLARIFICATI... Q8H XX ; Start 05/01/18 at 09:30 Meropenem/Sodium Chloride 50 ml @ 100 mls/hr Q8 IVPB Last administered on 05/03/18at 05:25; Admin Dose 100 MLS/HR; Start 05/02/18 at 10:00 RENÉ GARCIA NP May 03, 2018 11:38
--- NOTE | 2018-05-03 14:43 | PN ---
Date/Time of Note Date/Time of Note DATE: 05/03/18 TIME: 14:43 Assessment/Plan VTE Prophylaxis Risk score (from Ns)>0 risk: 6 SCD applied (from Ns): Yes Pharmacological prophylaxis: NA/contraindicated Pharm contraindication: low risk/ambulating Lines/Catheters [facility] Saline Lock Urinary Cath still in place: Yes Reason Cath still needed: urinary retention Assessment/Plan Hospital Course 62 y/o with # Oral gingival bleeding likely due to dentures, seen by ENT s/p endoscopy # Sepsis with Fevers with hx Pneumonia +UTI and ? Pancreatitis +multiple wounds, ucx+ lisa, wound cx+ MRSA/ pseudomonas, +resp culture +pseudomonas # Blood loss anemia due to oral gingival bleeding # VDRF # CKD with worsening renal failure>resolved # Metabolic acidosis #DILATED CARDIOMYOPATHY # HX ALCOHOL ABUSE # Multiple wounds > decub # Pancreatitis with elevated Lipase # Enterocoltiis on CT # AMS due to Metabolic encephalopathy with . Possible subacute infarct in the left cerebellar hemisphere and cerebellar peduncle> much improved #Ongoing fevers likely secondary to UTI/hcap now improved> again with fevers Plan - abx oer ID - s/p debridement, follow-up with cultures - repeat ERCP Per GI - Family meeting today - GI prophylaxsis - monitor oral bleeding - labs am - PT/OT/Speech Result Diagram: 05/03/1845805/03/189 Results 24hrs Laboratory Tests Test 05/03/18 04:59 White Blood Count 6.2 Red Blood Count 2.79 L Hemoglobin 7.8 L Hematocrit 25.2 L Mean Corpuscular Volume 90.3 Mean Corpuscular Hemoglobin 28.0 L Mean Corpuscular Hemoglobin Concent 31.0 L Red Cell Distribution Width 15.7 H Platelet Count 242 Mean Platelet Volume 10.2 Immature Granulocytes % 0.500 H Neutrophils % 80.5 H Lymphocytes % 7.1 L Monocytes % 8.7 Eosinophils % 2.7 Basophils % 0.5 Nucleated Red Blood Cells % 0.0 Immature Granulocytes # 0.030 Neutrophils # 5.0 Lymphocytes # 0.4 L Monocytes # 0.5 Eosinophils # 0.2 Basophils # 0.0 Nucleated Red Blood Cells # 0.0 Sodium Level 139 Potassium Level 4.7 Chloride Level 110 Carbon Dioxide Level 21 Anion Gap 8 Blood Urea Nitrogen 38 #H Creatinine 0.94 Est Glomerular Filtrat Rate mL/min > 60 Glucose Level 104 Calcium Level 8.5 Total Bilirubin 0.0 L Direct Bilirubin 0.00 Indirect Bilirubin 0.0 Aspartate Amino Transf (AST/SGOT) 98 H Alanine Aminotransferase (ALT/SGPT) 35 Alkaline Phosphatase 303 H Total Protein 6.9 Albumin 2.9 L Globulin 4.00 H Albumin/Globulin Ratio 0.72 Random Amikacin Level <2.5 L Subjective 24 Hr Interval Summary Free Text/Dictation continues to have fevers ERCP next week hypotensive Exam/Review of Systems Exam Vitals Vital Signs Date Temp Pulse Resp B/P (MAP) Pulse Ox O2 O2 Flow FiO2 Time Delivery Rate 05/03/18 86 13:21 05/03/18 29 100 30 13:15 05/03/18 98.4 95/66 (76) 12:06 05/02/18 Trach 15:03 Collar Intake and Output 05/02/18 05/02/18 05/03/18 1515:00 23:00 07:00 IntakeIntake Total 475 ml 930 ml 850 ml OutputOutput Total 600 ml 900 ml 800 ml BalanceBalance -125 ml 30 ml 50 ml Exam ffrestraints Head: normocephalic, does not respond to commands Eyes: nl conjunctiva ENMT: other (tracheostomy) Neck: supple Respiratory: diminished breath sounds Cardiovascular: regular rate and rhythm Gastrointestinal: other (G tube) Results Results 24hrs Laboratory Tests Test 05/03/18 04:59 White Blood Count 6.2 Red Blood Count 2.79 L Hemoglobin 7.8 L Hematocrit 25.2 L Mean Corpuscular Volume 90.3 Mean Corpuscular Hemoglobin 28.0 L Mean Corpuscular Hemoglobin Concent 31.0 L Red Cell Distribution Width 15.7 H Platelet Count 242 Mean Platelet Volume 10.2 Immature Granulocytes % 0.500 H Neutrophils % 80.5 H Lymphocytes % 7.1 L Monocytes % 8.7 Eosinophils % 2.7 Basophils % 0.5 Nucleated Red Blood Cells % 0.0 Immature Granulocytes # 0.030 Neutrophils # 5.0 Lymphocytes # 0.4 L Monocytes # 0.5 Eosinophils # 0.2 Basophils # 0.0 Nucleated Red Blood Cells # 0.0 Sodium Level 139 Potassium Level 4.7 Chloride Level 110 Carbon Dioxide Level 21 Anion Gap 8 Blood Urea Nitrogen 38 #H Creatinine 0.94 Est Glomerular Filtrat Rate mL/min > 60 Glucose Level 104 Calcium Level 8.5 Total Bilirubin 0.0 L Direct Bilirubin 0.00 Indirect Bilirubin 0.0 Aspartate Amino Transf (AST/SGOT) 98 H Alanine Aminotransferase (ALT/SGPT) 35 Alkaline Phosphatase 303 H Total Protein 6.9 Albumin 2.9 L Globulin 4.00 H Albumin/Globulin Ratio 0.72 Random Amikacin Level <2.5 L Medications Medication Current Medications Alteplase, Recombinant (Cathflo (Activase)) 2 mg MAY REPEAT X1 PRN CATHETER IF CATHETER REMAINS OCCULUDED Last administered on 04/03/18 04:24; Admin Dose 2 MG; Start 04/01/18 at 21:00 Collagenase (Santyl) 1 applic DAILY TOP Last administered on 05/02/18 08:20; Admin Dose 1 APPLIC; Start 04/03/18 at 12:00 Morphine Sulfate (morphine) 6 mg Q4H PRN GTB SEVERE PAIN LEVEL 6-10 Last administered on 05/01/18 22:57; Admin Dose 6 MG; Start 04/04/18 at 23:00 Polyethylene Glycol (Miralax) 17 gm DAILY GTB Last administered on 05/03/18 09:38; Admin Dose 17 GM; Start 04/08/18 at 09:00 Carvedilol (Coreg) 50 mg BID GTB Last administered on 05/03/18 09:37; Admin Dose 50 MG; Start 04/08/18 at 21:00 Lansoprazole (Prevacid) 30 mg HS PO Last administered on 05/02/18 21:24; Admin Dose 30 MG; Start 04/20/18 at 21:00 Fluconazole (Diflucan) 100 mg DAILY PO Last administered on 05/03/18 09:36; Admin Dose 100 MG; Start 04/21/18 at 14:00 Aspirin (Aspirin) 81 mg DAILY PO Last administered on 05/03/18 09:37; Admin Dose 81 MG; Start 04/27/18 at 09:00 Albuterol (Proventil 0.083% (Neb)) 2.5 mg Q3H RESP THERAPY PRN NEB WHEEZING AND SOB; Start 04/30/18 at 19:00 Miscellaneous Information (*Order Clarification Bulletin) MEDICATION REQUIRES CLARIFICATI... Q8H XX ; Start 05/01/18 at 09:30 Meropenem/Sodium Chloride 50 ml @ 100 mls/hr Q8 IVPB Last administered on 05/03/18at 05:25; Admin Dose 100 MLS/HR; Start 05/02/18 at 10:00 Miscellaneous Information (*Order Clarification Bulletin) MEDICATION REQUIRES CLARIFICATI... Q8H XX ; Start 05/03/18 at 12:30 TAMARA GRAJEDA MD May 03, 2018 14:43
--- NOTE | 2018-05-03 15:18 | PREAC ---
Date/Time of Note Date/Time of Note DATE: 05/03/18 TIME: 15:16 Anesthesia Eval and Record Evaluation Time Pre-Procedure Interview DATE: 05/03/18 TIME: 15:16 Age 62 Sex male NPO: 8 hrs Preoperative diagnosis Rule out bile duct stone. Rule out intrinsic pancreatic pathology. Planned procedure ERCP Past Medical History Past Medical History: Includes Cardio: HTN, CAD, CHF Neuro: CVA Hepatic: Alcohol abuse Surgery & Anesthesia Issues No known issue Meds Anticoagulation: No Beta Delmer within 24 hr: Yes Reported Medications Cran/Vitc/Mannose/Inulin/Brom (Uti-Stat Liquid) 3,875 Mg/30 Ml Liquid, 3875 MG GTB DAILY 03/31/18 Ascorbic Acid* (Vitamin C*) 500 Mg Capsule.sa, 500 MG GTB DAILY, CAP 03/31/18 Zinc Sulfate* (Zinc Sulfate*) 220 Mg Tablet, 220 MG GTB DAILY, TAB 03/31/18 Acetaminophen* (Acetaminophen*) 650 Mg Tablet, 650 MG GTB Q4 PRN for MILD PAIN LEVEL 1-3, #30 TAB AND FEVER 03/31/18 Acetaminophen* (Acetaminophen*) 500 MG Extra Strength Tablet, 1000 MG GTB Q4 PRN for MODERATE PAIN LEVEL 4-6, TAB 03/31/18 Acetaminophen* (Acetaminophen*) 325 Mg Tablet, 650 MG GTB TRACH CHANGE PRN for PAIN, #30 TAB GIVE 30 MIN PRIOR TO CHANGE 03/31/18 Spironolactone* (Aldactone*) 25 Mg Tablet, 25 MG GTB DAILY, #30 TAB 03/31/18 Multivit/Ca Carb/B Cmplx/Fa* (Sofy-Sandoval*) 1 Tab Tab, 1 TAB GTB DAILY, TAB 03/31/18 Hydrocodone/Acetaminophen ([place] 5-325 Tablet) 1 Each Tablet, 1 EACH GTB BID, TAB 03/31/18 Midodrine* (Midodrine*) 5 Mg Tablet, 5 MG GTB BID, TAB HOLD FOR SBP ABOVE 110 03/31/18 Na Phos,M-B/Na Phos,Di-Ba (ENEMA [id number]) 133 Ml Enema, 133 ML RC EVERY TWO DAYS PRN for CONSTIPATION, ENEMA 03/31/18 Bisacodyl (Dulcolax) 10 Mg Supp.rect, 10 MG RC DAILY PRN for CONSTIPATION, SUPP.RECT 03/31/18 Carvedilol* (Carvedilol*) 25 Mg Tablet, 25 MG GTB BID, #60 TAB HOLD FOR SBP BELOW 100 OR HR BELOW 50 03/31/18 Albuterol Sulfate* (Albuterol Sulfate* Neb) 0.083%-3 Ml Neb, 2.5 MG NEB Q6 PRN for WHEEZING AND SOB, #30 VIAL 03/31/18 Albuterol Sulfate* (Albuterol Sulfate* Neb) 0.083%-3 Ml Neb, 2.5 MG NEB Q3H PRN for WHEEZING AND SOB, #30 VIAL 03/31/18 Lactobacillus Acidophilus/Pect (Acidophilus-Pectin Capsule) 1 Each Capsule, 1 EACH GTB DAILY, CAP 03/31/18 Current Medications Alteplase, Recombinant (Cathflo (Activase)) 2 mg MAY REPEAT X1 PRN CATHETER IF CATHETER REMAINS OCCULUDED Last administered on 04/03/18 04:24; Admin Dose 2 MG; Start 04/01/18 at 21:00 Collagenase (Santyl) 1 applic DAILY TOP Last administered on 05/02/18 08:20; Admin Dose 1 APPLIC; Start 04/03/18 at 12:00 Morphine Sulfate (morphine) 6 mg Q4H PRN GTB SEVERE PAIN LEVEL 6-10 Last administered on 05/01/18 22:57; Admin Dose 6 MG; Start 04/04/18 at 23:00 Polyethylene Glycol (Miralax) 17 gm DAILY GTB Last administered on 05/03/18 09:38; Admin Dose 17 GM; Start 04/08/18 at 09:00 Carvedilol (Coreg) 50 mg BID GTB Last administered on 05/03/18 09:37; Admin Dose 50 MG; Start 04/08/18 at 21:00 Lansoprazole (Prevacid) 30 mg HS PO Last administered on 05/02/18 21:24; Admin Dose 30 MG; Start 04/20/18 at 21:00 Fluconazole (Diflucan) 100 mg DAILY PO Last administered on 05/03/18 09:36; Admin Dose 100 MG; Start 04/21/18 at 14:00 Aspirin (Aspirin) 81 mg DAILY PO Last administered on 05/03/18 09:37; Admin Dose 81 MG; Start 04/27/18 at 09:00 Albuterol (Proventil 0.083% (Neb)) 2.5 mg Q3H RESP THERAPY PRN NEB WHEEZING AND SOB; Start 04/30/18 at 19:00 Miscellaneous Information (*Order Clarification Bulletin) MEDICATION REQUIRES CLARIFICATI... Q8H XX ; Start 05/01/18 at 09:30 Meropenem/Sodium Chloride 50 ml @ 100 mls/hr Q8 IVPB Last administered on 05/03/18at 05:25; Admin Dose 100 MLS/HR; Start 05/02/18 at 10:00 Miscellaneous Information (*Order Clarification Bulletin) MEDICATION REQUIRES CLARIFICATI... Q8H XX ; Start 05/03/18 at 12:30 Meds reviewed: Yes Allergies Coded Allergies: No Known Allergy (Unverified , 04/30/18) Allergies Reviewed: Yes Labs/Studies Labs Reviewed: Reviewed by anesthesiologist Result Diagram: 05/03/18 0459 05/03/18 0459 Laboratory Tests 05/03/18 04:59 test: N/A Pre-procedure Exam Last vitals Vital Signs Date Temp Pulse Resp B/P (MAP) Pulse Ox O2 O2 Flow FiO2 Time Delivery Rate 05/03/18 86 13:21 05/03/18 29 100 30 13:15 05/03/18 98.4 95/66 (76) 12:06 05/02/18 Trach 15:03 Collar Airway: Adequate mouth opening Mallampati: Mallampati II Teeth: Normal Lung: Normal Heart: Normal ASA Physical Status ASA physical status: 3 Emergency: None Planned Anesthetic General/MAC: ETT Pre-operative Attestations Prior to commencing anesthesia and surgery, the patient was re-evaluated, there was verification of: *The patient's identity *The results of appropriate recent lab work and preoperative vital signs *The above evaluation not changing prior to induction *Anesthetic plan, risk benefits, alternative and complications discussed with patient/family; questions answered; patient/family understands, accepts and wishes to proceed. BOLIVAR FOX May 03, 2018 15:18
[2018-05-03] MEDS: COLLAGENASE 5 GM (UD JAR) TOP SCH (15:46)
[2018-05-03] MEDS: SOD CHLORIDE 0.9% 1,000 ML IV SCH ×2 (15:47→21:46)
[2018-05-03] MEDS ORDERED: SOD CHLORIDE 0.9% 500 ML IV ONE (16:00)
--- NOTE | 2018-05-03 16:35 | CONS ---
Assessment/Plan Assessment/Plan Hospital Course 62 M c/ Hx of methamphetamine/ETOH abuse c/b cirrhosis and dilated cardiomyopathy... and other comorbidities, admitted for evaluation of gingival bleeding..and fevers.... Neurology is again consulted to evaluate encephalopathy and assess prognosis for meaningful neurologic recovery.. The clinical picture again suggests an acute toxic-metabolic (?on chronic) encephalopathy... Recent MRI brain is concerning for a subacute cerebellar infarction, though it is limited by motion.. Recent EEG is without epileptiform activity. His prognosis for meaningful neurologic recovery is guarded (ie wholly dependent on medical improvement)... P: Re[eat Head CT for surveillance asa for secondary stroke prevention as medically able (severe anemia noted...); LDL is at goal... Limit sedating medications where possible PT/OT/ST as able Continued medical management and supportive care per primary Will follow Consultation Date/Type/Reason Admit Date/Time Mar 31, 2018 at 17:58 Type of Consult Neurology Requesting Provider: TAMARA GRAJEDA MD Date/Time of Note DATE: 05/03/18 TIME: 16:34 24 HR Interval Summary Free Text/Dictation Continues telemetry monitoring. Reportedly increasingly encephalopathic. Family meeting held earlier today. Pt unable to fully contribute at this time. Subjective hx not possible: pt non-verbal Exam Vital Signs Vitals Vital Signs Date Temp Pulse Resp B/P (MAP) Pulse Ox O2 O2 Flow FiO2 Time Delivery Rate 05/03/18 86 26 100 30 15:36 05/03/18 98.5 110/74 15:16 (86) 05/02/18 Trach 15:03 Collar Intake and Output 05/02/18 05/02/18 05/03/18 1515:00 23:00 07:00 IntakeIntake Total 475 ml 930 ml 850 ml OutputOutput Total 600 ml 900 ml 800 ml BalanceBalance -125 ml 30 ml 50 ml Exam PE: Gen Appearance: No Apparent Distress HEENT: Trach Cardiovascular: Regular rate Abdomen: Soft Extremities: Dry NE: The patient was lethargic, though arousable to voice. Nonverbal. Intermittently able to follow simple appendicular commands.. Cranial nerve examination was limited by mental status. Pupils were equal and reactive to light. There was no afferent pupillary defect. Funduscopic examination was limited. Face was grossly symmetric, w/ present corneal and cough reflexes. Tone was normal. Muscle bulk was normal. I did not see fasciculations. The patient moved his limbs grossly symmetrically. Coordination and gait testing was limited by mental status. Arm and leg reflexes were within normal limits and symmetric. Maguire's sign was absent. Plantar responses were flexor. ANURAG PRESSLEY NP May 03, 2018 16:35 MANDO PINO May 03, 2018 20:08
[2018-05-03] MEDS: LANSOPRAZOLE 30 MG CAP PO SCH (21:06)
[2018-05-04] VITALS (22 sets, daily range): BP systolic 102–152; BP diastolic 72–87; PULSE 66–89; RESP 20–30
[2018-05-04] MEDS: SOD CHLORIDE 0.9% 1,000 ML IV SCH (05:45)
[2018-05-04] MEDS: MEROPENEM 1 GM/50ML(PMX) 50 ML IVPB SCH (05:46)
[2018-05-04] MEDS: COLLAGENASE 5 GM (UD JAR) TOP SCH (08:25)
[2018-05-04] MEDS: FLUCONAZOLE 100 MG TAB PO SCH (08:25)
[2018-05-04] MEDS: ASPIRIN 81 MG TAB PO SCH (08:25)
[2018-05-04] MEDS: POLYETHYLENE GLYCOL 17 GM PACKET GTB SCH (08:25)
[2018-05-04] MEDS: BALSAM PERU/CASTOR OIL 60 GM TUBE TOP SCH ×2 (08:26→21:00)
[2018-05-04] MEDS ORDERED: VITAMIN A & D 5 GM OINT PACKET TOP ONE (09:24)
[2018-05-04] MEDS ORDERED: ACETAMINOPHEN 650 MG SUPP PR PRN (09:30)
[2018-05-04] MEDS: ZINC SULFATE 220 MG CAP GTB SCH (09:53)
[2018-05-04] MEDS: MULTIVIT/CA CARB/B CMPLX/FA TAB GTB SCH (09:53)
[2018-05-04] MEDS: ACETAMINOPHEN 650MG/20.3ML CUP GTB PRN (09:53)
[2018-05-04] MEDS: ASCORBIC ACID 500 MG TAB GTB SCH (09:53)
--- NOTE | 2018-05-04 12:27 | CONS ---
Assessment/Plan Assessment/Plan Hospital Course (Demo Recall) No acute events, looks comfortable Antimicrobials: Merrem fluconazole Indwelling: Trach PEG Schwartz. Microbiology: urine culture + Pseudomonas/C alb Physical examination: Chronically ill-appearing elderly man who is noncommunicative in no distress. Head atraumatic normocephalic sclera n onicteric neck is supple tracheostomy present chest rise symmetrical breath sounds diminished bases heart: S1-S2. Abdomen soft bowel sounds present. Extremities without cyanosis. Skin: Patient has multiple pressure sores he has a dry blood on the right lower lip Assessment: 1. Sepsis secondary to urinary tract infection and HCAP 2. 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 VDRF 3. Dysphagia 4. Chronic encephalopathy 5. History of cardiomyopathy 6. Sacral decub, s/p debridement 04/30/18 7. MRSA nares colonization 8. Elevated amylase and lipase of unclear etiology Plan: Clinically unchanged, fevers continued, pt had been on abx for more than 2 weeks, dc Merrem, consider hematology eval for possible underlying malignancy, will order wbc labeled nuclear scan Consultation Date/Type/Reason Admit Date/Time Mar 31, 2018 at 17:58 Initial Consult Date 04/02/18 Type of Consult id Requesting Provider: TAMARA GRAJEDA MD Date/Time of Note DATE: 05/04/18 TIME: 12:26 Exam/Review of Systems Exam Vitals Vital Signs Date Temp Pulse Resp B/P (MAP) Pulse Ox O2 O2 Flow FiO2 Time Delivery Rate 05/04/18 99.4 87 22 102/72 99 Mechanical 11:34 (82) Ventilator 05/04/18 30 11:12 Intake and Output 05/03/18 05/03/18 05/04/18 1414:59 22:59 06:59 IntakeIntake Total 750 ml 880 ml OutputOutput Total 600 ml 1350 ml BalanceBalance 150 ml -470 ml Results Result Diagram: 05/04/18 0802 05/04/18 0806 Results 24hrs Laboratory Tests Test 05/04/18 08:02 05/04/18 08:06 05/04/18 11:38 White Blood Count 7.0 Red Blood Count 2.73 L Hemoglobin 7.6 L Hematocrit 24.0 L Mean Corpuscular Volume 87.9 Mean Corpuscular Hemoglobin 27.8 L Mean Corpuscular Hemoglobin Concent 31.7 L Red Cell Distribution Width 15.8 H Platelet Count 219 Mean Platelet Volume 10.5 H Immature Granulocytes % 0.600 H Neutrophils % 75.6 Lymphocytes % 10.7 L Monocytes % 10.4 Eosinophils % 2.3 Basophils % 0.4 Nucleated Red Blood Cells % 0.0 Immature Granulocytes # 0.040 H Neutrophils # 5.3 Lymphocytes # 0.8 Monocytes # 0.7 Eosinophils # 0.2 Basophils # 0.0 Nucleated Red Blood Cells # 0.0 Sodium Level 138 Potassium Level 4.7 Chloride Level 111 H Carbon Dioxide Level 19 L Anion Gap 8 Blood Urea Nitrogen 41 H Creatinine 0.87 Est Glomerular Filtrat Rate mL/min > 60 Glucose Level 107 Calcium Level 8.0 L Total Bilirubin 0.0 L Direct Bilirubin 0.00 Indirect Bilirubin 0.0 Aspartate Amino Transf (AST/SGOT) 107 H Alanine Aminotransferase (ALT/SGPT) 42 Alkaline Phosphatase 215 H Total Protein 6.6 Albumin 2.7 L Globulin 3.90 H Albumin/Globulin Ratio 0.69 Amylase Level 534 H Lipase 3337 H Lab Scanned Report REFERENCE LAB Medications Medication Current Medications Collagenase (Santyl) 1 applic DAILY TOP Last administered on 05/04/18 08:25; Admin Dose 1 APPLIC; Start 04/03/18 at 12:00 Morphine Sulfate (morphine) 6 mg Q4H PRN GTB SEVERE PAIN LEVEL 6-10 Last administered on 05/01/18 22:57; Admin Dose 6 MG; Start 04/04/18 at 23:00 Polyethylene Glycol (Miralax) 17 gm DAILY GTB Last administered on 05/04/18 08:25; Admin Dose 17 GM; Start 04/08/18 at 09:00 Carvedilol (Coreg) 50 mg BID GTB Last administered on 05/04/18 08:25; Admin Dose 50 MG; Start 04/08/18 at 21:00 Lansoprazole (Prevacid) 30 mg HS PO Last administered on 05/03/18 21:06; Admin Dose 30 MG; Start 04/20/18 at 21:00 Fluconazole (Diflucan) 100 mg DAILY PO Last administered on 05/04/18 08:25; Admin Dose 100 MG; Start 04/21/18 at 14:00 Aspirin (Aspirin) 81 mg DAILY PO Last administered on 05/04/18 08:25; Admin Dose 81 MG; Start 04/27/18 at 09:00 Albuterol (Proventil 0.083% (Neb)) 2.5 mg Q3H RESP THERAPY PRN NEB WHEEZING AND SOB; Start 04/30/18 at 19:00 Meropenem/Sodium Chloride 50 ml @ 100 mls/hr Q8 IVPB Last administered on 05/04/18 05:46; Admin Dose 100 MLS/HR; Start 05/02/18 at 10:00 Sodium Chloride 1,000 ml @ 70 mls/hr [id number] IV Last administered on 05/03/18 21:46; Admin Dose 70 MLS/HR; Start 05/03/18 at 16:00 Ascorbic Acid (Vitamin C) 500 mg DAILY GTB Last administered on 05/04/18 09:53; Admin Dose 500 MG; Start 05/04/18 at 09:30 Zinc Sulfate (Zinc Sulfate) 220 mg DAILY GTB Last administered on 05/04/18 09:53; Admin Dose 220 MG; Start 05/04/18 at 09:30 Multivit/Ca Carb/ B Cmplx/FA/Prenat (Sofy-Sandoval) 1 tab DAILY GTB Last administered on 05/04/18 09:53; Admin Dose 1 TAB; Start 05/04/18 at 09:30 Acetaminophen (Tylenol Liquid) 650 mg Q4H PRN GTB MILD PAIN(1-3)OR ELEVATED TEMP Last administered on 05/04/18 09:53; Admin Dose 650 MG; Start 05/04/18 at 09:30 Acetaminophen (Tylenol Supp) 650 mg Q6H PRN [place] temp over 101; Start 05/04/18 at 09:30 RENÉ GARCIA NP May 04, 2018 12:27
--- NOTE | 2018-05-04 13:43 | CONS ---
Assessment/Plan Assessment/Plan Hospital Course 62 M c/ Hx of methamphetamine/ETOH abuse c/b cirrhosis and dilated cardiomyopathy... and other comorbidities, admitted for evaluation of gingival bleeding..and fevers.... Neurology is again consulted to evaluate encephalopathy and assess prognosis for meaningful neurologic recovery.. The clinical picture again suggests an acute toxic-metabolic (?on chronic) encephalopathy... Recent MRI brain is concerning for a subacute cerebellar infarction, though it is limited by motion.. Recent EEG is without epileptiform activity. His prognosis for meaningful neurologic recovery is guarded (ie wholly dependent on medical improvement)... P: Await repeat Head CT for surveillance asa for secondary stroke prevention as medically able (severe anemia noted...); LDL is at goal... Limit sedating medications where possible PT/OT/ST as able Continued medical management and supportive care per primary Will follow Consultation Date/Type/Reason Admit Date/Time Mar 31, 2018 at 17:58 Type of Consult Neurology Requesting Provider: TAMARA GRAJEDA MD Date/Time of Note DATE: 05/04/18 TIME: 13:43 Exam Vital Signs Vitals Vital Signs Date Temp Pulse Resp B/P (MAP) Pulse Ox O2 O2 Flow FiO2 Time Delivery Rate 05/04/18 75 12:26 05/04/18 99.4 22 102/72 99 Mechanical 11:34 (82) Ventilator 05/04/18 30 11:12 Intake and Output 05/03/18 05/03/18 05/04/18 1414:59 22:59 06:59 IntakeIntake Total 750 ml 880 ml OutputOutput Total 600 ml 1350 ml BalanceBalance 150 ml -470 ml Exam PE: Gen Appearance: No Apparent Distress HEENT: Trach Cardiovascular: Regular rate Abdomen: Soft Extremities: Dry NE: The patient was lethargic, though arousable to voice. Nonverbal. Unable to follow simple commands today. Cranial nerve examination was limited by mental status. Pupils were equal and reactive to light. There was no afferent pupillary defect. Funduscopic examination was limited. Face was grossly symmetric, w/ present corneal and cough reflexes. Tone was normal. Muscle bulk was normal. I did not see fasciculations. The patient moved his upper extremities symmetrically. Withdrew lower extremities to noxious stimuli.. Coordination and gait testing was limited by mental status. Arm and leg reflexes were within normal limits and symmetric. Maguire's sign was absent. Plantar responses were flexor. ANURAG PRESSLEY NP May 04, 2018 13:43
--- NOTE | 2018-05-04 14:03 | CONS ---
Assessment/Plan Assessment/Plan Assessment/Plan (Daily) Hospital Course (Demo Recall) 62 male with excessively bleeding gingival tissue and severe anemia 1. Severe acute on chronic anemia likely due to blood loss from gingival bleeding 3. Chronic liver disease, alcohol related 4. Mild coagulopathy 5. Elevated lipase with mildly elevated CA 19-9 -on CT scan pancreas is normal -lipid panel wnl -CBD 6mm, LFT wnl -Radiology will not do MRCP because of vent 6. Chronic kidney disease -BUN/arborer wnl 7. Encephalopathy secondary to anoxic brain injury 8. H/o duodenal ulcer 9. Complex UTI with lisa albicans, s/p diflucan 10. 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 Persistent fevers -etiology- carcinoma? 12. Abnormal LFTs -liver disease -trending down 13. Pyrexia etiology is unclear WBC scan has been ordered Plan: Monitor LFT and WBC Repeat ERCP on Sunday Monitor closely for GI bleeding and HH, FOB Continue abx Consultation Date/Type/Reason Admit Date/Time Mar 31, 2018 at 17:58 Initial Consult Date 04/02/18 Requesting Provider: TAMARA GRAJEDA MD Date/Time of Note DATE: 05/04/18 TIME: 14:02 24 HR Interval Summary Subjective hx not possible: pt non-verbal Exam/Review of Systems Exam Vitals Vital Signs Date Temp Pulse Resp B/P (MAP) Pulse Ox O2 O2 Flow FiO2 Time Delivery Rate 05/04/18 75 12:26 05/04/18 99.4 22 102/72 99 Mechanical 11:34 (82) Ventilator 05/04/18 30 11:12 Intake and Output 05/03/18 05/03/18 05/04/18 1515:00 23:00 07:00 IntakeIntake Total 750 ml 880 ml OutputOutput Total 600 ml 1350 ml BalanceBalance 150 ml -470 ml Respiratory: diminished breath sounds Cardiovascular: regular rate and rhythm Musculoskeletal: nl extremities to inspection, nl gait and stance Results Result Diagram: 05/04/18 0802 05/04/18 0806 Results 24hrs Laboratory Tests Test 05/04/18 08:02 05/04/18 08:06 05/04/18 11:38 White Blood Count 7.0 Red Blood Count 2.73 L Hemoglobin 7.6 L Hematocrit 24.0 L Mean Corpuscular Volume 87.9 Mean Corpuscular Hemoglobin 27.8 L Mean Corpuscular Hemoglobin Concent 31.7 L Red Cell Distribution Width 15.8 H Platelet Count 219 Mean Platelet Volume 10.5 H Immature Granulocytes % 0.600 H Neutrophils % 75.6 Lymphocytes % 10.7 L Monocytes % 10.4 Eosinophils % 2.3 Basophils % 0.4 Nucleated Red Blood Cells % 0.0 Immature Granulocytes # 0.040 H Neutrophils # 5.3 Lymphocytes # 0.8 Monocytes # 0.7 Eosinophils # 0.2 Basophils # 0.0 Nucleated Red Blood Cells # 0.0 Sodium Level 138 Potassium Level 4.7 Chloride Level 111 H Carbon Dioxide Level 19 L Anion Gap 8 Blood Urea Nitrogen 41 H Creatinine 0.87 Est Glomerular Filtrat Rate mL/min > 60 Glucose Level 107 Calcium Level 8.0 L Total Bilirubin 0.0 L Direct Bilirubin 0.00 Indirect Bilirubin 0.0 Aspartate Amino Transf (AST/SGOT) 107 H Alanine Aminotransferase (ALT/SGPT) 42 Alkaline Phosphatase 215 H Total Protein 6.6 Albumin 2.7 L Globulin 3.90 H Albumin/Globulin Ratio 0.69 Amylase Level 534 H Lipase 3337 H Lab Scanned Report REFERENCE LAB Medications Medication Current Medications Collagenase (Santyl) 1 applic DAILY TOP Last administered on 05/04/18 08:25; Admin Dose 1 APPLIC; Start 04/03/18 at 12:00 Morphine Sulfate (morphine) 6 mg Q4H PRN GTB SEVERE PAIN LEVEL 6-10 Last administered on 05/01/18 22:57; Admin Dose 6 MG; Start 04/04/18 at 23:00 Polyethylene Glycol (Miralax) 17 gm DAILY GTB Last administered on 05/04/18 08:25; Admin Dose 17 GM; Start 04/08/18 at 09:00 Carvedilol (Coreg) 50 mg BID GTB Last administered on 05/04/18 08:25; Admin Dose 50 MG; Start 04/08/18 at 21:00 Lansoprazole (Prevacid) 30 mg HS PO Last administered on 05/03/18 21:06; Admin Dose 30 MG; Start 04/20/18 at 21:00 Fluconazole (Diflucan) 100 mg DAILY PO Last administered on 05/04/18 08:25; Admin Dose 100 MG; Start 04/21/18 at 14:00 Aspirin (Aspirin) 81 mg DAILY PO Last administered on 05/04/18 08:25; Admin Dose 81 MG; Start 04/27/18 at 09:00 Albuterol (Proventil 0.083% (Neb)) 2.5 mg Q3H RESP THERAPY PRN NEB WHEEZING AND SOB; Start 04/30/18 at 19:00 Sodium Chloride 1,000 ml @ 70 mls/hr [id number] IV Last administered on 05/03/18 21:46; Admin Dose 70 MLS/HR; Start 05/03/18 at 16:00 Ascorbic Acid (Vitamin C) 500 mg DAILY GTB Last administered on 05/04/18 09:53; Admin Dose 500 MG; Start 05/04/18 at 09:30 Zinc Sulfate (Zinc Sulfate) 220 mg DAILY GTB Last administered on 05/04/18 09:53; Admin Dose 220 MG; Start 05/04/18 at 09:30 Multivit/Ca Carb/ B Cmplx/FA/Prenat (Sofy-Sandoval) 1 tab DAILY GTB Last administered on 05/04/18 09:53; Admin Dose 1 TAB; Start 05/04/18 at 09:30 Acetaminophen (Tylenol Liquid) 650 mg Q4H PRN GTB MILD PAIN(1-3)OR ELEVATED TEMP Last administered on 05/04/18 09:53; Admin Dose 650 MG; Start 05/04/18 at 09:30 Acetaminophen (Tylenol Supp) 650 mg Q6H PRN [place] temp over 101; Start 05/04/18 at 09:30 RASHEEDA MEJIA MD May 04, 2018 14:03
[2018-05-04] MEDS ORDERED: POLYETHYLENE GLYCOL 17 GM PACKET GTB PRN (16:00)
--- NOTE | 2018-05-04 16:25 | PN ---
Date/Time of Note Date/Time of Note DATE: 05/04/18 TIME: 16:25 Assessment/Plan VTE Prophylaxis Risk score (from Ns)>0 risk: 7 SCD applied (from Ns): Yes Pharmacological prophylaxis: NA/contraindicated Pharm contraindication: low risk/ambulating Lines/Catheters [facility] Peripheral IV Urinary Cath still in place: Yes Reason Cath still needed: urinary retention Assessment/Plan Hospital Course 62 y/o with # Oral gingival bleeding likely due to dentures, seen by ENT s/p endoscopy # Sepsis with Fevers with hx Pneumonia +UTI and ? Pancreatitis +multiple wounds, ucx+ lisa, wound cx+ MRSA/ pseudomonas, +resp culture +pseudomonas # Blood loss anemia due to oral gingival bleeding # VDRF # CKD with worsening renal failure>resolved # Metabolic acidosis #DILATED CARDIOMYOPATHY # HX ALCOHOL ABUSE # Multiple wounds > decub # Pancreatitis with elevated Lipase # Enterocoltiis on CT # AMS due to Metabolic encephalopathy with . Possible subacute infarct in the left cerebellar hemisphere and cerebellar peduncle> much improved> now again AMS? encephalopathy #Ongoing fevers likely secondary to UTI/hcap now improved> again with fevers Plan - abx oer ID> adjusted - reculture - reconsulted neuro - CT head - s/p debridement, follow-up with cultures - repeat ERCP Per GI on Sunday - Family meeting discussed goals of care, will let us know - GI prophylaxsis - monitor oral bleeding - labs am - PT/OT/Speech Result Diagram: 05/04/18 0802 05/04/18 0806 Results 24hrs Laboratory Tests Test 05/04/18 08:02 05/04/18 08:06 05/04/18 11:38 White Blood Count 7.0 Red Blood Count 2.73 L Hemoglobin 7.6 L Hematocrit 24.0 L Mean Corpuscular Volume 87.9 Mean Corpuscular Hemoglobin 27.8 L Mean Corpuscular Hemoglobin Concent 31.7 L Red Cell Distribution Width 15.8 H Platelet Count 219 Mean Platelet Volume 10.5 H Immature Granulocytes % 0.600 H Neutrophils % 75.6 Lymphocytes % 10.7 L Monocytes % 10.4 Eosinophils % 2.3 Basophils % 0.4 Nucleated Red Blood Cells % 0.0 Immature Granulocytes # 0.040 H Neutrophils # 5.3 Lymphocytes # 0.8 Monocytes # 0.7 Eosinophils # 0.2 Basophils # 0.0 Nucleated Red Blood Cells # 0.0 Sodium Level 138 Potassium Level 4.7 Chloride Level 111 H Carbon Dioxide Level 19 L Anion Gap 8 Blood Urea Nitrogen 41 H Creatinine 0.87 Est Glomerular Filtrat Rate mL/min > 60 Glucose Level 107 Calcium Level 8.0 L Total Bilirubin 0.0 L Direct Bilirubin 0.00 Indirect Bilirubin 0.0 Aspartate Amino Transf (AST/SGOT) 107 H Alanine Aminotransferase (ALT/SGPT) 42 Alkaline Phosphatase 215 H Total Protein 6.6 Albumin 2.7 L Globulin 3.90 H Albumin/Globulin Ratio 0.69 Amylase Level 534 H Lipase 3337 H Lab Scanned Report REFERENCE LAB Subjective 24 Hr Interval Summary Free Text/Dictation Fevers Pt remains altered Exam/Review of Systems Exam Vitals Vital Signs Date Temp Pulse Resp B/P (MAP) Pulse Ox O2 O2 Flow FiO2 Time Delivery Rate 05/04/18 97.1 68 22 128/87 100 Room Air 15:41 (101) 05/04/18 30 15:10 Intake and Output 05/03/18 05/03/18 05/04/18 1414:59 22:59 06:59 IntakeIntake Total 750 ml 880 ml OutputOutput Total 600 ml 1350 ml BalanceBalance 150 ml -470 ml Exam ffrestraints Head: normocephalic, does not respond to commands Eyes: nl conjunctiva ENMT: other (tracheostomy) Neck: supple Respiratory: diminished breath sounds Cardiovascular: regular rate and rhythm Gastrointestinal: other (G tube) Results Results 24hrs Laboratory Tests Test 05/04/18 08:02 05/04/18 08:06 05/04/18 11:38 White Blood Count 7.0 Red Blood Count 2.73 L Hemoglobin 7.6 L Hematocrit 24.0 L Mean Corpuscular Volume 87.9 Mean Corpuscular Hemoglobin 27.8 L Mean Corpuscular Hemoglobin Concent 31.7 L Red Cell Distribution Width 15.8 H Platelet Count 219 Mean Platelet Volume 10.5 H Immature Granulocytes % 0.600 H Neutrophils % 75.6 Lymphocytes % 10.7 L Monocytes % 10.4 Eosinophils % 2.3 Basophils % 0.4 Nucleated Red Blood Cells % 0.0 Immature Granulocytes # 0.040 H Neutrophils # 5.3 Lymphocytes # 0.8 Monocytes # 0.7 Eosinophils # 0.2 Basophils # 0.0 Nucleated Red Blood Cells # 0.0 Sodium Level 138 Potassium Level 4.7 Chloride Level 111 H Carbon Dioxide Level 19 L Anion Gap 8 Blood Urea Nitrogen 41 H Creatinine 0.87 Est Glomerular Filtrat Rate mL/min > 60 Glucose Level 107 Calcium Level 8.0 L Total Bilirubin 0.0 L Direct Bilirubin 0.00 Indirect Bilirubin 0.0 Aspartate Amino Transf (AST/SGOT) 107 H Alanine Aminotransferase (ALT/SGPT) 42 Alkaline Phosphatase 215 H Total Protein 6.6 Albumin 2.7 L Globulin 3.90 H Albumin/Globulin Ratio 0.69 Amylase Level 534 H Lipase 3337 H Lab Scanned Report REFERENCE LAB Medications Medication Current Medications Collagenase (Santyl) 1 applic DAILY TOP Last administered on 05/04/18 08:25; Admin Dose 1 APPLIC; Start 04/03/18 at 12:00 Morphine Sulfate (morphine) 6 mg Q4H PRN GTB SEVERE PAIN LEVEL 6-10 Last adm inistered on 05/01/18 22:57; Admin Dose 6 MG; Start 04/04/18 at 23:00 Carvedilol (Coreg) 50 mg BID GTB Last administered on 05/04/18 08:25; Admin Dose 50 MG; Start 04/08/18 at 21:00 Lansoprazole (Prevacid) 30 mg HS PO Last administered on 05/03/18 21:06; Admin Dose 30 MG; Start 04/20/18 at 21:00 Fluconazole (Diflucan) 100 mg DAILY PO Last administered on 05/04/18 08:25; Admin Dose 100 MG; Start 04/21/18 at 14:00 Aspirin (Aspirin) 81 mg DAILY PO Last administered on 05/04/18 08:25; Admin Dose 81 MG; Start 04/27/18 at 09:00 Albuterol (Proventil 0.083% (Neb)) 2.5 mg Q3H RESP THERAPY PRN NEB WHEEZING AND SOB; Start 04/30/18 at 19:00 Sodium Chloride 1,000 ml @ 70 mls/hr [id number] IV Last administered on 05/03/18 21:46; Admin Dose 70 MLS/HR; Start 05/03/18 at 16:00 Ascorbic Acid (Vitamin C) 500 mg DAILY GTB Last administered on 05/04/18 09:53; Admin Dose 500 MG; Start 05/04/18 at 09:30 Zinc Sulfate (Zinc Sulfate) 220 mg DAILY GTB Last administered on 05/04/18 09:53; Admin Dose 220 MG; Start 05/04/18 at 09:30 Multivit/Ca Carb/ B Cmplx/FA/Prenat (Sofy-Sandoval) 1 tab DAILY GTB Last administer ed on 05/04/18 09:53; Admin Dose 1 TAB; Start 05/04/18 at 09:30 Acetaminophen (Tylenol Liquid) 650 mg Q4H PRN GTB MILD PAIN(1-3)OR ELEVATED TEMP Last administered on 05/04/18 09:53; Admin Dose 650 MG; Start 05/04/18 at 09:30 Acetaminophen (Tylenol Supp) 650 mg Q6H PRN [place] temp over 101; Start 05/04/18 at 09:30 Polyethylene Glycol (Miralax) 17 gm DAILY PRN GTB constipation; Start 05/04/18 at 16:00 TAMARA GRAJEDA MD May 04, 2018 16:25
--- NOTE | 2018-05-04 17:17 | PN ---
Date/Time of Note Date/Time of Note DATE: 05/04/18 TIME: 17:15 Assessment/Plan Lines/Catheters IV Catheter Type (from [facility]): Peripheral IV Schwartz in Place (from [facility]): Yes Assessment/Plan Chief Complaint/Hosp Course 1. Decubitus pressure ulcers with necrosis s/p exc milena 04/30 -Local care -Offload -Nutritional optimization -Vitamin C -Short-term zinc -Debridement prn 2. 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 Dilated cardiomyopathy with congestive heart failure and coronary artery disease with history of hypertension -Cardiac optimization -Judicious fluid management -Electrolyte optimization 4. Chronic renal disease -Judicious fluid management -Minimize nephrotoxic agents if possible 5. Dysphagia on tube feeds 6. Anemia -Monitor 7. Ventilator dependent respiratory failure -Ventilator management and pulmonary toilet 8. Abnormal lipase and ca19-9 s/p ercp 04/30 with stricture and sphincterotomy -repeat ercp per gi pending Sunday -trend 9. Poor quality of life -family meeting with palliative pending Thank you. Patient seen and examined in collaboration with Dr. Chet Melvin. Subjective 24 Hr Interval Summary Fevers. Lipase continues to be elevated. No labored breathing, congested cough, vomiting, diarrhea, seizure, rash. Appears comfortable. Nonverbal indicators of pain not present. Exam/Review of Systems Vital Signs Vitals Vital Signs Date Temp Pulse Resp B/P (MAP) Pulse Ox O2 O2 Flow FiO2 Time Delivery Rate 05/05/18 76 28 96 13:15 05/05/18 30 11:10 05/05/18 98.9 113/72 Mechanical 11:00 (86) Ventilator Intake and Output 05/04/18 05/04/18 05/05/18 1515:00 23:00 07:00 IntakeIntake Total 2070 ml 1280 ml OutputOutput Total 1050 ml 1500 ml BalanceBalance 1020 ml -220 ml Exam Free Text/Dictation Constitutional: No alert, No oriented Psych: confusion; No nl mood/affect Head: normocephalic Eyes: nl conjunctiva, PERRL; No icteric ENMT: nl lips & teeth, mucosa pink and dry; dried blood Neck: supple, jvd (Minimal), other (Trach in place) Respiratory: No congested cough, No labored breathing, No wheezing Cardiovascular: regular rate and rhythm; No edema Gastrointestinal: soft, non-tender, other (PEG); No distended, No rebound or guarding Genitourinary - Male: nl penis Musculoskeletal: No nl gait and stance, No joint tenderness Extremities: edema; No calf tenderness, No tenderness Neurological: No nl mental status, No nl speech, No nl strength Skin: rash or lesions (bilat buttock pressure decubitus wounds with dressing. Lower extremity wounds.), ecchymosis; No nl turgor, No diaphoresis Lymph: No nl lymph nodes Results Result Diagram: 05/04/18 0802 05/04/18 0806 AURE ENRIQUEZ NP May 04, 2018 17:17
[2018-05-04] MEDS: LANSOPRAZOLE 30 MG CAP PO SCH (22:29)
[2018-05-04] MEDS ORDERED: hydrALAzine 20 MG INJ IV PRN (22:30)
[2018-05-05] VITALS (24 sets, daily range): BP systolic 102–158; BP diastolic 70–90; PULSE 74–95; RESP 20–30
[2018-05-05] MEDS: ASPIRIN 81 MG TAB PO SCH ×2 (08:14→15:00)
[2018-05-05] MEDS: COLLAGENASE 5 GM (UD JAR) TOP SCH (08:14)
[2018-05-05] MEDS: ASCORBIC ACID 500 MG TAB GTB SCH (08:14)
[2018-05-05] MEDS: FLUCONAZOLE 100 MG TAB PO SCH (08:14)
[2018-05-05] MEDS: MULTIVIT/CA CARB/B CMPLX/FA TAB GTB SCH (08:14)
[2018-05-05] MEDS: ZINC SULFATE 220 MG CAP GTB SCH (08:14)
[2018-05-05] MEDS: BALSAM PERU/CASTOR OIL 60 GM TUBE TOP SCH ×2 (08:15→22:10)
--- NOTE | 2018-05-05 10:08 | CONS ---
Assessment/Plan Assessment/Plan Hospital Course 62 M c/ Hx of methamphetamine/ETOH abuse c/b cirrhosis and dilated cardiomyopathy... and other comorbidities, admitted for evaluation of gingival bleeding..and fevers.... Neurology is again consulted to evaluate encephalopathy and assess prognosis for meaningful neurologic recovery.. The clinical picture again suggests an acute toxic-metabolic (?on chronic) encephalopathy... Recent MRI brain is concerning for a subacute cerebellar infarction, though it is limited by motion.. Recent EEG is without epileptiform activity. His prognosis for meaningful neurologic recovery is guarded (ie wholly dependent on medical improvement)... P: Repeat Head CT for surveillance when medically able asa for secondary stroke prevention as medically able (severe anemia noted...); LDL is at goal... Limit sedating medications where possible PT/OT/ST as able Continued medical management and supportive care per primary Will follow Consultation Date/Type/Reason Admit Date/Time Mar 31, 2018 at 17:58 Type of Consult Neurology Reason for Consultation encephalopathy; prognosis.. Requesting Provider: TAMARA GRAJEDA MD Date/Time of Note DATE: 05/05/18 TIME: 10:06 Exam Vital Signs Vitals Vital Signs Date Temp Pulse Resp B/P (MAP) Pulse Ox O2 O2 Flow FiO2 Time Delivery Rate 05/05/18 30 09:08 05/05/18 91 28 94 09:00 05/05/18 98.8 110/70 07:27 (83) 05/04/18 Room Air 15:41 Intake and Output 05/04/18 05/04/18 05/05/18 1515:00 23:00 07:00 IntakeIntake Total 2070 ml 1280 ml OutputOutput Total 1050 ml 1500 ml BalanceBalance 1020 ml -220 ml Exam PE: Gen Appearance: No Apparent Distress HEENT: Trach Cardiovascular: Regular rate Abdomen: Soft Extremities: Dry NE: The patient was lethargic nonverbal. Cranial nerve examination was limited by mental status. Pupils were equal and reactive to light. There was no afferent pupillary defect. Funduscopic examination was limited. Face was grossly symmetric, w/ present corneal and cough reflexes. Tone was normal. Muscle bulk was reduced. I did not see fasciculations. The patient withdrew to noxious stimulation x 4. Coordination and gait testing was limited by mental status. Arm and leg reflexes were within normal limits and symmetric. Maguire's sign was absent. Plantar responses were flexor. MANDO PINO May 05, 2018 10:08
--- NOTE | 2018-05-05 11:30 | PN ---
LETITIA BLAKELY 05/05/18 1129: Date/Time of Note Date/Time of Note DATE: 05/05/18 TIME: 11:28 Assessment/Plan VTE [place] [facility] [place]: 7 [place] [facility] [place] Yes Pharmacological prophylaxis: NA/contraindicated Pharm contraindication: anticoag not tolerated Lines/Catheters IV Catheter Type (from [facility]): Peripheral IV Urinary Cath still in place: Yes Reason Cath still needed: urinary retention Assessment/Plan Hospital Course # UTI # Oral gingival bleeding likely due to dentures, was seen by ENT s/p endoscopy # Sepsis with Fevers with hx Pneumonia +UTI and ? Pancreatitis +multiple wounds, ucx+ lisa # Blood loss anemia due to #1, resolved # VDRF # CKD , resolved # Metabolic acidosis # DILATED CARDIOMYOPATHY # HX ALCOHOL ABUSE # Multiple wounds > decub # hypomagnesemia # low grade fever. stable today Assessment/Plan - abx per ID - s/p debridement, follow-up with cultures - repeat ERCP Per GI - Family meeting today - GI prophylaxis. - monitor oral bleeding - labs am - PT/OT/Speech Result Diagram: 05/04/18 0802 05/04/18 0806 Results 24hrs Laboratory Tests Test 05/04/18 11:38 Lab Scanned Report REFERENCE LAB Subjective 24 Hr Interval Summary Subjective hx not possible: pt non-verbal Exam/Review of Systems Exam Vitals Vital Signs Date Temp Pulse Resp B/P (MAP) Pulse Ox O2 O2 Flow FiO2 Time Delivery Rate 05/05/18 30 09:08 05/05/18 91 28 94 09:00 05/05/18 98.8 110/70 07:27 (83) 05/04/18 Room Air 15:41 Intake and Output 05/04/18 05/04/18 05/05/18 1515:00 23:00 07:00 IntakeIntake Total 2070 ml 1280 ml OutputOutput Total 1050 ml 1500 ml BalanceBalance 1020 ml -220 ml Constitutional: non-verbal ENMT: other (trach) Neck: supple Respiratory: diminished breath sounds Cardiovascular: regular rate and rhythm Gastrointestinal: soft Results Result Diagram: 05/04/18 0802 05/04/18 0806 Results 24hrs Laboratory Tests Test 05/04/18 11:38 Lab Scanned Report REFERENCE LAB Medications Medication Current Medications Collagenase (Santyl) 1 applic DAILY TOP Last administered on 05/05/18 08:14; Admin Dose 1 APPLIC; Start 04/03/18 at 12:00 Morphine Sulfate (morphine) 6 mg Q4H PRN GTB SEVERE PAIN LEVEL 6-10 Last administered on 05/01/18 22:57; Admin Dose 6 MG; Start 04/04/18 at 23:00 Carvedilol (Coreg) 50 mg BID GTB Last administered on 05/05/18 08:15; Admin Dose 50 MG; Start 04/08/18 at 21:00 Lansoprazole (Prevacid) 30 mg HS PO Last administered on 05/04/18 22:29; Admin Dose 30 MG; Start 04/20/18 at 21:00 Fluconazole (Diflucan) 100 mg DAILY PO Last administered on 05/05/18 08:14; Admin Dose 100 MG; Start 04/21/18 at 14:00 Aspirin (Aspirin) 81 mg DAILY PO Last administered on 05/05/18 08:14; Admin Dose 81 MG; Start 04/27/18 at 09:00 Albuterol (Proventil 0.083% (Neb)) 2.5 mg Q3H RESP THERAPY PRN NEB WHEEZING AND SOB; Start 04/30/18 at 19:00 Ascorbic Acid (Vitamin C) 500 mg DAILY GTB Last administered on 05/05/18 08:14; Admin Dose 500 MG; Start 05/04/18 at 09:30 Zinc Sulfate (Zinc Sulfate) 220 mg DAILY GTB Last administered on 05/05/18 08:14; Admin Dose 220 MG; Start 05/04/18 at 09:30 Multivit/Ca Carb/ B Cmplx/FA/Prenat (Sofy-Sandoval) 1 tab DAILY GTB Last admi nistered on 05/05/18 08:14; Admin Dose 1 TAB; Start 05/04/18 at 09:30 Acetaminophen (Tylenol Liquid) 650 mg Q4H PRN GTB MILD PAIN(1-3)OR ELEVATED TEMP Last administered on 05/04/18 09:53; Admin Dose 650 MG; Start 05/04/18 at 09:30 Acetaminophen (Tylenol Supp) 650 mg Q6H PRN OR temp over 101; Start 05/04/18 at 09:30 Polyethylene Glycol (Miralax) 17 gm DAILY PRN GTB constipation; Start 05/04/18 at 16:00 Hydralazine HCl (Apresoline) 5 mg Q6H PRN IV ELEVATED BLOOD PRESSURE; Start 05/04/18 at 22:30 TAMARA GRAJEDA MD 05/05/18 1629: Assessment/Plan Assessment/Plan Assessment/Plan SEEN ADN EXAMINED ct HEAD NEW acute INFARCT Discussed with neurology> ASA/statin ? ERCP Dr Diana reviewed images > no neurosurgical intervention needed discussed with family at bedside Result Diagram: 05/04/18 0802 05/04/18 0806 LETITIA BLAKELY May 05, 2018 11:29 TAMRAA GRAJEDA MD May 05, 2018 16:29
--- NOTE | 2018-05-05 14:08 | PN ---
Date/Time of Note Date/Time of Note DATE: 05/05/18 TIME: 14:05 Assessment/Plan Lines/Catheters IV Catheter Type (from [facility]): Peripheral IV Schwartz in Place (from [facility]): Yes Assessment/Plan Chief Complaint/Hosp Course 1. Decubitus pressure ulcers with necrosis s/p exc milena 04/30 -cont Local care -Offload -Nutritional optimization -Vitamin C -Short-term zinc -Debridement prn 2. 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 Dilated cardiomyopathy with congestive heart failure and coronary artery disease with history of hypertension -Cardiac optimization -Judicious fluid management -Electrolyte optimization 4. Chronic renal disease -Judicious fluid management -Minimize nephrotoxic agents if possible 5. Dysphagia on tube feeds 6. Anemia -Monitor 7. Ventilator dependent respiratory failure -Ventilator management and pulmonary toilet 8. Abnormal lipase and ca19-9 s/p ercp 04/30 with stricture and sphincterotomy -repeat ercp per gi pending Sunday -trend 9. Poor quality of life -family meeting with palliative pending Thank you. Patient seen and examined in collaboration with Dr. Chet Melvin. Subjective 24 Hr Interval Summary No fevers, congested cough, acute bleeding, labored breathing, dysrhythmias, sz, rash, new wounds noted. +bowel function Exam/Review of Systems Vital Signs Vitals Vital Signs Date Temp Pulse Resp B/P (MAP) Pulse Ox O2 O2 Flow FiO2 Time Delivery Rate 05/05/18 76 28 96 13:15 05/05/18 30 11:10 05/05/18 98.9 113/72 Mechanical 11:00 (86) Ventilator Intake and Output 05/04/18 05/04/18 05/05/18 1515:00 23:00 07:00 IntakeIntake Total 2070 ml 1280 ml OutputOutput Total 1050 ml 1500 ml BalanceBalance 1020 ml -220 ml Exam Free Text/Dictation Constitutional: No alert, No oriented Psych: confusion; No nl mood/affect Head: normocephalic Eyes: nl conjunctiva, PERRL; No icteric ENMT: nl lips & teeth, mucosa pink and dry; dried blood Neck: supple, jvd (Minimal), other (Trach in place) Respiratory: No congested cough, No labored breathing, No wheezing Cardiovascular: regular rate and rhythm; No edema Gastrointestinal: soft, non-tender, other (PEG); No distended, No rebound or guarding Genitourinary - Male: nl penis Musculoskeletal: No nl gait and stance, No joint tenderness Extremities: edema; No calf tenderness, No tenderness Neurological: No nl mental status, No nl speech, No nl strength Skin: rash or lesions (bilat buttock pressure decubitus wounds with dressing. Lower extremity wounds.), ecchymosis; No nl turgor, No diaphoresis Lymph: No nl lymph nodes Results Result Diagram: 05/04/1880105/04/18805 AURE ENRIQUEZ NP May 05, 2018 14:08
--- NOTE | 2018-05-05 14:17 | CONS ---
Consultation Date/Type/Reason Admit Date/Time Mar 31, 2018 at 17:58 Initial Consult Date SUBJECTIVE: Pt is sleepy, no fevers. Nonverbal with trach to vent. No acute distress. VS: stable. T: 98.9 LABS: Reviewed. CT of BRAIN: IMPRESSION: Acute non-hemorrhagic infarct right temporal operculum, external capsule and extending into the frontal white matter. Acute to subacute non-hemorrhagic infarct central left cerebellar hemisphere. No intracranial hemorrhage or mass. Underlying mild to moderate atrophy. Microbiology: urine culture + Pseudomonas/C alb CT of the abdomen and pelvis revealed questionable enterocolitis. Cholelithiasis. Tiny bilateral pleural effusions with bibasilar airspace disease. Indwelling: Peg, Schwartz, tracheostomy Antimicrobials: fluconazole , S/P Merrem Physical examination: GEN: Chronically ill-appearing elderly man who is noncommunicative in no distress. HENT: Head atraumatic normocephalic, sclera nonicteric, neck is supple, tracheostomy present. PULM: chest rise symmetrical, breath sounds diminished bases Heart: S1-S2. Abdomen soft bowel sounds present. Extremities without cyanosis. S kin: Patient has multiple pressure sores he has a dry blood on the right lower lip Assessment: 1. Sepsis secondary to urinary tract infection and HCAP 2. 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 VDRF 3. Dysphagia 4. Chronic encephalopathy 5. History of cardiomyopathy 6. Sacral decub, s/p debridement 04/30/18 7. MRSA nares colonization 8. Elevated amylase and lipase of unclear etiology 9. Acute CVA ?neuro following. Plan: Clinically unchanged. GI following. WBC labeled nuclear scan. Neuro recommendations and CT of brain noted. Continue Diflucan. Plan: Clinically unchanged, fevers continue, pt had been on abx for more than 2 weeks, dc Merrem, consider consider hematology eval for possible underlying malignancy, Requesting Provider: TAMARA GRAJEDA MD Date/Time of Note DATE: 05/05/18 TIME: 14:12 Exam/Review of Systems Exam Vitals Vital Signs Date Temp Pulse Resp B/P (MAP) Pulse Ox O2 O2 Flow FiO2 Time Delivery Rate 05/05/18 76 28 96 13:15 05/05/18 30 11:10 05/05/18 98.9 113/72 Mechanical 11:00 (86) Ventilator Intake and Output 05/04/18 05/04/18 05/05/18 1414:59 22:59 06:59 IntakeIntake Total 2070 ml 1280 ml OutputOutput Total 1050 ml 1500 ml BalanceBalance 1020 ml -220 ml Results Result Diagram: 05/04/18 0802 05/04/18 0806 Medications Medication Current Medications Collagenase (Santyl) 1 applic DAILY TOP Last administered on 05/05/18 08:14; A dmin Dose 1 APPLIC; Start 04/03/18 at 12:00 Morphine Sulfate (morphine) 6 mg Q4H PRN GTB SEVERE PAIN LEVEL 6-10 Last administered on 05/01/18 22:57; Admin Dose 6 MG; Start 04/04/18 at 23:00 Carvedilol (Coreg) 50 mg BID GTB Last administered on 05/05/18 08:15; Admin Dose 50 MG; Start 04/08/18 at 21:00 Lansoprazole (Prevacid) 30 mg HS PO Last administered on 05/04/18 22:29; Admin Dose 30 MG; Start 04/20/18 at 21:00 Fluconazole (Diflucan) 100 mg DAILY PO Last administered on 05/05/18 08:14; Ad min Dose 100 MG; Start 04/21/18 at 14:00 Aspirin (Aspirin) 81 mg DAILY PO Last administered on 05/05/18 08:14; Admin Dose 81 MG; Start 04/27/18 at 09:00 Albuterol (Proventil 0.083% (Neb)) 2.5 mg Q3H RESP THERAPY PRN NEB WHEEZING AND SOB; Start 04/30/18 at 19:00 Ascorbic Acid (Vitamin C) 500 mg DAILY GTB Last administered on 05/05/18 08:14; Admin Dose 500 MG; Start 05/04/18 at 09:30 Zinc Sulfate (Zinc Sulfate) 220 mg DAILY GTB Last administered on 05/05/18 08:14; Admin Dose 220 MG; Start 05/04/18 at 09:30 Multivit/Ca Carb/ B Cmplx/FA/Prenat (Sofy-Sandoval) 1 tab DAILY GTB Last administered on 05/05/18 08:14; Admin Dose 1 TAB; Start 05/04/18 at 09:30 Acetaminophen (Tylenol Liquid) 650 mg Q4H PRN GTB MILD PAIN(1-3)OR ELEVATED TEMP Last administered on 05/04/18at 09:53; Admin Dose 650 MG; Start 05/04/18 at 09:30 Acetaminophen (Tylenol Supp) 650 mg Q6H PRN [place] temp over 101; Start 05/04/18 at 09:30 Polyethylene Glycol (Miralax) 17 gm DAILY PRN GTB constipation; Start 05/04/18 at 16:00 Hydralazine HCl (Apresoline) 5 mg Q6H PRN IV ELEVATED BLOOD PRESSURE; Start 05/04/18 at 22:30 KELECHI BISHOP May 05, 2018 14:17
--- NOTE | 2018-05-05 17:03 | CONS ---
Assessment/Plan Assessment/Plan Assessment/Plan (Daily) Hospital Course (Demo Recall) 62 male with excessively bleeding gingival tissue and severe anemia 1. Severe acute on chronic anemia likely due to blood loss from gingival bleeding 3. Chronic liver disease, alcohol related 4. Mild coagulopathy 5. Elevated lipase with mildly elevated CA 19-9 -on CT scan pancreas is normal -lipid panel wnl -CBD 6mm, LFT wnl -Radiology will not do MRCP because of vent 6. 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 Encephalopathy secondary to anoxic brain injury 8. H/o duodenal ulcer 9. Complex UTI with lisa albicans, s/p diflucan 10. 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 Persistent fevers -etiology- carcinoma? 12. Abnormal LFTs -liver disease -trending down 13. Pyrexia etiology is unclear WBC scan has been ordered #14 Acute stroke if Plan: Monitor LFT and WBC Repeat ERCP on Sunday Monitor closely for GI bleeding and HH, FOB Continue abx Will defer ERCP get the neurology consult Consultation Date/Type/Reason Admit Date/Time Mar 31, 2018 at 17:58 Initial Consult Date 04/02/18 Requesting Provider: TAMARA GRAJEDA MD Date/Time of Note DATE: 05/05/18 TIME: 17:02 24 HR Interval Summary Free Text/Dictation Patient developed a stroke. Exam/Review of Systems Exam Vitals Vital Signs Date Temp Pulse Resp B/P (MAP) Pulse Ox O2 O2 Flow FiO2 Time Delivery Rate 05/05/18 77 16:29 05/05/18 98.7 28 137/75 100 16:28 (95) 05/05/18 30 15:10 05/05/18 Mechanical 11:00 Ventilator Intake and Output 05/04/18 05/04/18 05/05/18 1515:00 23:00 07:00 IntakeIntake Total 2070 ml 1280 ml OutputOutput Total 1050 ml 1500 ml BalanceBalance 1020 ml -220 ml Eyes: nl conjunctiva, EOMI, nl lids, nl sclera, PERRL Cardiovascular: No regular rate and rhythm, No nl pulses, No bruits, No diastolic murmur, No edema, No gallop, No irregular rhythm, No jugular venous distention (JVD), No murmurs/extra sounds, No rub, No systolic murmur, No S3, No S4, No other Gastrointestinal: nl liver, spleen Results Result Diagram: 05/04/1802 05/04/1806 Medications Medication Current Medications Collagenase (Santyl) 1 applic DAILY TOP Last administered on 05/05/18 08:14; Admin Dose 1 APPLIC; Start 04/03/18 at 12:00 Morphine Sulfate (morphine) 6 mg Q4H PRN GTB SEVERE PAIN LEVEL 6-10 Last administered on 05/01/18 22:57; Admin Dose 6 MG; Start 04/04/18 at 23:00 Carvedilol (Coreg) 50 mg BID GTB Last administered on 05/05/18 08:15; Admin Dose 50 MG; Start 04/08/18 at 21:00 Lansoprazole (Prevacid) 30 mg HS PO Last administered on 05/04/18 22:29; Admin Dose 30 MG; Start 04/20/18 at 21:00 Fluconazole (Diflucan) 100 mg DAILY PO Last administered on 05/05/18 08:14; Admin Dose 100 MG; Start 04/21/18 at 14:00 Albuterol (Proventil 0.083% (Neb)) 2.5 mg Q3H RESP THERAPY PRN NEB WHEEZING AND SOB; Start 04/30/18 at 19:00 Ascorbic Acid (Vitamin C) 500 mg DAILY GTB Last administered on 05/05/18 08:14; Admin Dose 500 MG; Start 05/04/18 at 09:30 Zinc Sulfate (Zinc Sulfate) 220 mg DAILY GTB Last administered on 05/05/18 08:14; Admin Dose 220 MG; Start 05/04/18 at 09:30 Multivit/Ca Carb/ B Cmplx/FA/Prenat (Sofy-Sandoval) 1 tab DAILY GTB Last administered on 05/05/18 08:14; Admin Dose 1 TAB; Start 05/04/18 at 09:30 Acetaminophen (Tylenol Liquid) 650 mg Q4H PRN GTB MILD PAIN(1-3)OR ELEVATED TEMP Last administered on 05/04/18 09:53; Admin Dose 650 MG; Start 05/04/18 at 09:30 Acetaminophen (Tylenol Supp) 650 mg Q6H PRN [place] temp over 101; Start 2/9/19 at 09:30 Polyethylene Glycol (Miralax) 17 gm DAILY PRN GTB constipation; Start 05/04/18 at 16:00 Hydralazine HCl (Apresoline) 5 mg Q6H PRN IV ELEVATED BLOOD PRESSURE; Start 05/04/18 at 22:30 Aspirin (Aspirin) 81 mg DAILY PO ; Start 05/05/18 at 15:00 RASHEEDA MEJIA MD May 05, 2018 17:03
[2018-05-05] MEDS: LANSOPRAZOLE 30 MG CAP PO SCH (22:08)
[2018-05-06] VITALS (25 sets, daily range): BP systolic 93–110; BP diastolic 65–76; PULSE 75–89; RESP 18–32
--- NOTE | 2018-05-06 08:32 | CONS ---
Assessment/Plan Assessment/Plan Hospital Course (Demo Recall) 62 male with excessively bleeding gingival tissue and severe anemia 1. Severe acute on chronic anemia likely due to blood loss from gingival bleeding 3. Chronic liver disease, alcohol related 4. Mild coagulopathy 5. Elevated lipase with mildly elevated CA 19-9 -on CT scan pancreas is normal -lipid panel wnl -CBD 6mm, LFT wnl -Radiology will not do MRCP because of vent 6. 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 Encephalopathy secondary to anoxic brain injury 8. H/o duodenal ulcer 9. Complex UTI with lisa albicans, s/p diflucan 10. 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 Persistent fevers -etiology- carcinoma? 12. Abnormal LFTs -liver disease -trending down 13. Acute non hemorrhagic infarcts noted on Brain CT Plan: ERCP on hold for newly found brain infarcts Monitor LFT and WBC Monitor closely for GI bleeding and HH, Continue abx Pt examined and plan of care discussed with Dr. Peña Consultation Date/Type/Reason Admit Date/Time Mar 31, 2018 at 17:58 Initial Consult Date 04/02/18 Requesting Provider: TAMARA GRAJEDA MD Date/Time of Note DATE: 05/06/18 TIME: 08:28 24 HR Interval Summary Free Text/Dictation CT of brain showed acute non hemorrhagic infarct in rt temporal operculum, external capsule and extending into the frontal white matter and acute non hemorrhagic infarct in centeral left cerebellar hemisphere Exam/Review of Systems Exam Vitals Vital Signs Date Temp Pulse Resp B/P (MAP) Pulse Ox O2 O2 Flow FiO2 Time Delivery Rate 05/06/18 99.2 86 18 100/68 100 Mechanical 07:55 (79) Ventilator 05/06/18 30 04:50 Intake and Output 05/05/18 05/05/18 05/06/18 1414:59 22:59 06:59 IntakeIntake Total 0 ml 780 ml 1780 ml OutputOutput Total 950 ml 800 ml BalanceBalance 0 ml -170 ml 980 ml Head: normocephalic ENMT: mucosa pink and moist Respiratory: diminished breath sounds Gastrointestinal: soft Results Result Diagram: 05/06/18 0558 05/04/18 0806 Results 24hrs Laboratory Tests Test 05/06/18 05:58 White Blood Count 6.0 Red Blood Count 2.99 L Hemoglobin 8.5 L Hematocrit 27.1 L Mean Corpuscular Volume 90.6 Mean Corpuscular Hemoglobin 28.4 L Mean Corpuscular Hemoglobin Concent 31.4 L Red Cell Distribution Width 15.5 H Platelet Count 198 Mean Platelet Volume 10.5 H Immature Granulocytes % 0.700 H Neutrophils % 75.9 Lymphocytes % 10.3 L Monocytes % 10.3 Eosinophils % 2.3 Basophils % 0.5 Nucleated Red Blood Cells % 0.0 Immature Granulocytes # 0.040 H Neutrophils # 4.6 Lymphocytes # 0.6 L Monocytes # 0.6 Eosinophils # 0.1 Basophils # 0.0 Nucleated Red Blood Cells # 0.0 Prothrombin Time 13.9 Prothrombin Time Ratio 1.1 INR International Normalized Ratio 1.06 Activated Partial Thromboplast Time 32.3 Medications Medication Current Medications Collagenase (Santyl) 1 applic DAILY TOP Last administered on 05/05/18 08:14; Admin Dose 1 APPLIC; Start 04/03/18 at 12:00 Morphine Sulfate (morphine) 6 mg Q4H PRN GTB SEVERE PAIN LEVEL 6-10 Last administered on 05/01/18 22:57; Admin Dose 6 MG; Start 04/04/18 at 23:00 Carvedilol (Coreg) 50 mg BID GTB Last administered on 05/05/18 22:09; Admin Dose 50 MG; Start 04/08/18 at 21:00 Lansoprazole (Prevacid) 30 mg HS PO Last administered on 05/05/18 22:08; Admin Dose 30 MG; Start 04/20/18 at 21:00 Fluconazole (Diflucan) 100 mg DAILY PO Last administered on 05/05/18 08:14; Admin Dose 100 MG; Start 04/21/18 at 14:00 Albuterol (Proventil 0.083% (Neb)) 2.5 mg Q3H RESP THERAPY PRN NEB WHEEZING AND SOB; Start 04/30/18 at 19:00 Ascorbic Acid (Vitamin C) 500 mg DAILY GTB Last administered on 05/05/18 08:14; Admin Dose 500 MG; Start 05/04/18 at 09:30 Zinc Sulfate (Zinc Sulfate) 220 mg DAILY GTB Last administered on 05/05/18 08:14; Admin Dose 220 MG; Start 05/04/18 at 09:30 Multivit/Ca Carb/ B Cmplx/FA/Prenat (Sofy-Sanodval) 1 tab DAILY GTB Last administered on 05/05/18at 08:14; Admin Dose 1 TAB; Start 05/04/18 at 09:30 Acetaminophen (Tylenol Liquid) 650 mg Q4H PRN GTB MILD PAIN(1-3)OR ELEVATED TEMP Last administered on 05/04/18at 09:53; Admin Dose 650 MG; Start 05/04/18 at 09:30 Acetaminophen (Tylenol Supp) [address] temp over 101; Start 05/04/18 at 09:30 Polyethylene Glycol (Miralax) 17 gm DAILY PRN GTB constipation; Start 05/04/18 at 16:00 Hydralazine HCl (Apresoline) 5 mg Q6H PRN IV ELEVATED BLOOD PRESSURE; Start 05/04/18 at 22:30 Aspirin (Aspirin) 81 mg DAILY PO ; Start 05/05/18 at 15:00 QI CHRISTIANSON May 06, 2018 08:32
[2018-05-06] MEDS: MULTIVIT/CA CARB/B CMPLX/FA TAB GTB SCH (09:33)
[2018-05-06] MEDS: ZINC SULFATE 220 MG CAP GTB SCH (09:35)
[2018-05-06] MEDS: ASPIRIN 81 MG TAB PO SCH (09:36)
[2018-05-06] MEDS: BALSAM PERU/CASTOR OIL 60 GM TUBE TOP SCH ×2 (09:36→21:12)
[2018-05-06] MEDS: COLLAGENASE 5 GM (UD JAR) TOP SCH (09:36)
[2018-05-06] MEDS: FLUCONAZOLE 100 MG TAB PO SCH (09:36)
[2018-05-06] MEDS: ASCORBIC ACID 500 MG TAB GTB SCH (09:36)
--- NOTE | 2018-05-06 11:27 | CONS ---
Assessment/Plan Assessment/Plan Hospital Course (Demo Recall) No acute events, looks comfortable Antimicrobials: Merrem fluconazole Indwelling: Trach PEG Schwartz. Microbiology: sputum culture + Pseudomonas Physical examination: Chronically ill-appearing elderly man who is noncommunicative in no distress. Head atraumatic normocephalic sclera nonic teric neck is supple tracheostomy present chest rise symmetrical breath sounds diminished bases heart: S1-S2. Abdomen soft bowel sounds present. Extremities without cyanosis. Skin: Patient has multiple pressure sores he has a dry blood on the right lower lip Assessment: 1. S/p sepsis secondary to urinary tract infection and HCAP 2. 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 VDRF 3. Dysphagia 4. Chronic encephalopathy 5. History of cardiomyopathy 6. Sacral decub, s/p debridement 04/30/18 7. MRSA nares colonization 8. Elevated amylase and lipase of unclear etiology Plan: Clinically unchanged, completed abx, pending wbc labeled nuclear scan Consultation Date/Type/Reason Admit Date/Time Mar 31, 2018 at 17:58 Initial Consult Date 04/02/18 Type of Consult id Requesting Provider: TAMARA GRAJEDA MD Date/Time of Note DATE: 05/06/18 TIME: 11:26 Exam/Review of Systems Exam Vitals Vital Signs Date Temp Pulse Resp B/P (MAP) Pulse Ox O2 O2 Flow FiO2 Time Delivery Rate 05/06/18 83 11:10 05/06/18 110/76 09:30 (87) 05/06/18 99.2 18 100 Mechanical 07:55 Ventilator 05/06/18 30 04:50 Intake and Output 05/05/18 05/05/18 05/06/18 1414:59 22:59 06:59 IntakeIntake Total 0 ml 780 ml 1780 ml OutputOutput Total 950 ml 800 ml BalanceBalance 0 ml -170 ml 980 ml Results Result Diagram: 05/06/18 0558 05/04/18 0806 Results 24hrs Laboratory Tests Test 05/06/18 05:58 White Blood Count 6.0 Red Blood Count 2.99 L Hemoglobin 8.5 L Hematocrit 27.1 L Mean Corpuscular Volume 90.6 Mean Corpuscular Hemoglobin 28.4 L Mean Corpuscular Hemoglobin Concent 31.4 L Red Cell Distribution Width 15.5 H Platelet Count 198 Mean Platelet Volume 10.5 H Immature Granulocytes % 0.700 H Neutrophils % 75.9 Lymphocytes % 10.3 L Monocytes % 10.3 Eosinophils % 2.3 Basophils % 0.5 Nucleated Red Blood Cells % 0.0 Immature Granulocytes # 0.040 H Neutrophils # 4.6 Lymphocytes # 0.6 L Monocytes # 0.6 Eosinophils # 0.1 Basophils # 0.0 Nucleated Red Blood Cells # 0.0 Prothrombin Time 13.9 Prothrombin Time Ratio 1.1 INR International Normalized Ratio 1.06 Activated Partial Thromboplast Time 32.3 Medications Medication Current Medications Collagenase (Santyl) 1 applic DAILY TOP Last administered on 05/06/18 09:36; Admin Dose 1 APPLIC; Start 04/03/18 at 12:00 Morphine Sulfate (morphine) 6 mg Q4H PRN GTB SEVERE PAIN LEVEL 6-10 Last administered on 05/01/18 22:57; Admin Dose 6 MG; Start 04/04/18 at 23:00 Carvedilol (Coreg) 50 mg BID GTB Last administered on 05/06/18 09:34; Admin Dose 50 MG; Start 04/08/18 at 21:00 Lansoprazole (Prevacid) 30 mg HS PO Last administered on 05/05/18 22:08; Admin Dose 30 MG; Start 04/20/18 at 21:00 Fluconazole (Diflucan) 100 mg DAILY PO Last administered on 05/06/18 09:36; Admin Dose 100 MG; Start 04/21/18 at 14:00 Albuterol (Proventil 0.083% (Neb)) 2.5 mg Q3H RESP THERAPY PRN NEB WHEEZING AND SOB; Start 04/30/18 at 19:00 Ascorbic Acid (Vitamin C) 500 mg DAILY GTB Last administered on 05/06/18 09:36; Admin Dose 500 MG; Start 05/04/18 at 09:30 Zinc Sulfate (Zinc Sulfate) 220 mg DAILY GTB Last administered on 05/06/18 09:35; Admin Dose 220 MG; Start 05/04/18 at 09:30 Multivit/Ca Carb/ B Cmplx/FA/Prenat (Sofy-Sandoval) 1 tab DAILY GTB Last admin istered on 05/06/18 09:33; Admin Dose 1 TAB; Start 05/04/18 at 09:30 Acetaminophen (Tylenol Liquid) 650 mg Q4H PRN GTB MILD PAIN(1-3)OR ELEVATED TEMP Last administered on 05/04/18at 09:53; Admin Dose 650 MG; Start 05/04/18 at 09:30 Acetaminophen (Tylenol Supp) 650 mg Q6H PRN [place] temp over 101; Start 05/04/18 at 09:30 Polyethylene Glycol (Miralax) 17 gm DAILY PRN GTB constipation; Start 05/04/18 at 16:00 Hydralazine HCl (Apresoline) 5 mg Q6H PRN IV ELEVATED BLOOD PRESSURE; Start 05/04/18 at 22:30 Aspirin (Aspirin) 81 mg DAILY PO Last administered on 05/06/18at 09:36; Admin Dose 81 MG; Start 05/05/18 at 15:00 RENÉ GARCIA NP May 06, 2018 11:27
--- NOTE | 2018-05-06 13:14 | PN ---
Date/Time of Note Date/Time of Note DATE: 05/06/18 TIME: 13:11 Assessment/Plan Lines/Catheters IV Catheter Type (from Nrs): Peripheral IV Schwartz in Place (from Nrs): Yes Assessment/Plan Chief Complaint/Hosp Course 1. Decubitus pressure ulcers with necrosis s/p exc milena 04/30 -cont Local care -Offload -Nutritional optimization -Vitamin C -Short-term zinc -Debridement prn 2. 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 Dilated cardiomyopathy with congestive heart failure and coronary artery disease with history of hypertension -Cardiac optimization -Judicious fluid management -Electrolyte optimization 4. Chronic renal disease -Judicious fluid management -Minimize nephrotoxic agents if possible 5. Dysphagia on tube feeds 6. Anemia -Monitor 7. Ventilator dependent respiratory failure -Ventilator management and pulmonary toilet 8. Abnormal lipase and ca19-9 s/p ercp 04/30 with stricture and sphincterotomy -repeat ercp per gi held 04/27 acute strokes -trend 9. Poor quality of life -family meeting with palliative pending Thank you. Patient seen and examined in collaboration with Dr. Chet Melvin. Subjective 24 Hr Interval Summary Appears comfortable. Nonverbal indicators of pain not present. No fevers, labored breathing, congested cough, dysrhythmias, v/d/hematuria. Exam/Review of Systems Vital Signs Vitals Vital Signs Date Temp Pulse Resp B/P (MAP) Pulse Ox O2 O2 Flow FiO2 Time Delivery Rate 05/06/18 30 12:43 05/06/18 98.5 82 18 101/67 97 Mechanical 11:40 (78) Ventilator Intake and Output 05/05/18 05/05/18 05/06/18 1515:00 23:00 07:00 IntakeIntake Total 0 ml 780 ml 1780 ml OutputOutput Total 950 ml 800 ml BalanceBalance 0 ml -170 ml 980 ml Exam Free Text/Dictation Constitutional: No alert, No oriented Psych: confusion; No nl mood/affect Head: normocephalic Eyes: nl conjunctiva, PERRL; No icteric ENMT: nl lips & teeth, mucosa pink and dry; dried blood Neck: supple, jvd (Minimal), other (Trach in place) Respiratory: No congested cough, No labored breathing, No wheezing Cardiovascular: regular rate and rhythm; No edema Gastrointestinal: soft, non-tender, other (PEG); No distended, No rebound or guarding Genitourinary - Male: nl penis Musculoskeletal: No nl gait and stance, No joint tenderness Extremities: edema; No calf tenderness, No tenderness Neurological: No nl mental status, No nl speech, No nl strength Skin: rash or lesions (bilat buttock pressure decubitus wounds packed, Lower extremity wounds.), ecchymosis; No nl turgor, No diaphoresis Lymph: No nl lymph nodes Results Result Diagram: 05/06/18 0558 05/04/18 0806 AURE ENRIQUEZ NP May 06, 2018 13:14
--- NOTE | 2018-05-06 13:49 | CONS ---
Assessment/Plan Assessment/Plan Hospital Course 62 M c/ Hx of methamphetamine/ETOH abuse c/b cirrhosis and dilated cardiomyopathy... and other comorbidities, admitted for evaluation of gingival bleeding..and fevers.... Neurology is again consulted to evaluate encephalopathy and assess prognosis for meaningful neurologic recovery.. The clinical picture again suggests an acute toxic-metabolic (?on chronic) encephalopathy. Repeat Head CT shows a new R temporal infarction..which may be a contributor.. Recent MRI brain was notable for a subacute cerebellar infarction, though it is limited by motion.. Recent EEG was without epileptiform activity. His prognosis for meaningful neurologic recovery remains guarded. P: Repeat EEG to exclude subclinical seizure Agree w/ asa daily for secondary stroke prevention, as medically able (severe anemia noted...); LDL is at goal... Limit sedating medications where possible PT/OT/ST as able Continued medical management and supportive care per primary Will follow Consultation Date/Type/Reason Admit Date/Time Mar 31, 2018 at 17:58 Type of Consult Neurology Reason for Consultation encephalopathy; prognosis.. Requesting Provider: TAMARA GRAJEDA MD Date/Time of Note DATE: 05/06/18 TIME: 13:44 24 HR Interval Summary Free Text/Dictation Continue acute care Exam Vital Signs Vitals Vital Signs Date Temp Pulse Resp B/P (MAP) Pulse Ox O2 O2 Flow FiO2 Time Delivery Rate 05/06/18 30 12:43 05/06/18 98.5 82 18 101/67 97 Mechanical 11:40 (78) Ventilator Intake and Output 05/05/18 05/05/18 05/06/18 1515:00 23:00 07:00 IntakeIntake Total 0 ml 780 ml 1780 ml OutputOutput Total 950 ml 800 ml BalanceBalance 0 ml -170 ml 980 ml Exam PE: Gen Appearance: No Apparent Distress HEENT: Trach Cardiovascular: Regular rate Abdomen: Soft Extremities: Dry NE: The patient was lethargic and nonverbal. Cranial nerve examination was limited by mental status. Pupils were equal and reactive to light. There was no afferent pupillary defect. Funduscopic examination was limited. Face was grossly symmetric, w/ present corneal and cough reflexes. Tone was normal. Muscle bulk was normal. I did not see fasciculations. The patient withdrew to noxious stimulation x 4. Coordination and gait testing was limited by mental status. Arm and leg reflexes were within normal limits and symmetric. Maguire's sign was absent. Plantar responses were flexor. MANDO PINO May 06, 2018 13:49
--- NOTE | 2018-05-06 13:58 | PN ---
Date/Time of Note Date/Time of Note DATE: 05/06/18 TIME: 13:55 Assessment/Plan VTE Prophylaxis Risk score (from Ns)>0 risk: 5 SCD applied (from Ns): Yes Pharmacological prophylaxis: NA/contraindicated Pharm contraindication: low risk/ambulating Lines/Catheters [facility] Peripheral IV Urinary Cath still in place: Yes Reason Cath still needed: urinary retention Assessment/Plan Hospital Course 62 y/o with # Oral gingival bleeding likely due to dentures, seen by ENT s/p endoscopy # Sepsis with Fevers with hx Pneumonia +UTI and ? Pancreatitis +multiple wounds, ucx+ lisa, wound cx+ MRSA/ pseudomonas, +resp culture +pseudomonas # Blood loss anemia due to oral gingival bleeding # VDRF # CKD with worsening renal failure>resolved # Metabolic acidosis #DILATED CARDIOMYOPATHY # HX ALCOHOL ABUSE # Multiple wounds > decub # Pancreatitis with elevated Lipase # Enterocoltiis on CT # AMS due to Metabolic encephalopathy with . Possible subacute infarct in the left cerebellar hemisphere and cerebellar peduncle> much improved> now again AMS? encephalopathy> now with new stroke on 05/05/18 #Ongoing fevers likely secondary to UTI/hcap now improved> again with fevers> +psedomonas in sputum Plan - cw asa/statin - echo pending - abx oer ID> adjusted - WBC scan - fu neuro recs - ERCP cancelled due to new stroke - Family meeting discussed goals of care, will let us know, rediscussed again today - GI prophylaxsis - monitor oral bleeding - labs am - PT/OT/Speech Result Diagram: 05/06/18 0558 05/04/18 0806 Results 24hrs Laboratory Tests Test 05/06/18 05:58 White Blood Count 6.0 Red Blood Count 2.99 L Hemoglobin 8.5 L Hematocrit 27.1 L Mean Corpuscular Volume 90.6 Mean Corpuscular Hemoglobin 28.4 L Mean Corpuscular Hemoglobin Concent 31.4 L Red Cell Distribution Width 15.5 H Platelet Count 198 Mean Platelet Volume 10.5 H Immature Granulocytes % 0.700 H Neutrophils % 75.9 Lymphocytes % 10.3 L Monocytes % 10.3 Eosinophils % 2.3 Basophils % 0.5 Nucleated Red Blood Cells % 0.0 Immature Granulocytes # 0.040 H Neutrophils # 4.6 Lymphocytes # 0.6 L Monocytes # 0.6 Eosinophils # 0.1 Basophils # 0.0 Nucleated Red Blood Cells # 0.0 Prothrombin Time 13.9 Prothrombin Time Ratio 1.1 INR International Normalized Ratio 1.06 Activated Partial Thromboplast Time 32.3 Subjective 24 Hr Interval Summary Free Text/Dictation sputum cx+pseudomonas Exam/Review of Systems Exam Vitals Vital Signs Date Temp Pulse Resp B/P (MAP) Pulse Ox O2 O2 Flow FiO2 Time Delivery Rate 05/06/18 30 12:43 05/06/18 98.5 82 18 101/67 97 Mechanical 11:40 (78) Ventilator Intake and Output 05/05/18 05/05/18 05/06/18 1515:00 23:00 07:00 IntakeIntake Total 0 ml 780 ml 1780 ml OutputOutput Total 950 ml 800 ml BalanceBalance 0 ml -170 ml 980 ml Exam Constitutional: non-verbal, respond to painful stimuli, does not follow commands ENMT: other (trach) Neck: supple Respiratory: diminished breath sounds Cardiovascular: regular rate and rhythm Gastrointestinal: soft Results Results 24hrs Laboratory Tests Test 05/06/18 05:58 White Blood Count 6.0 Red Blood Count 2.99 L Hemoglobin 8.5 L Hematocrit 27.1 L Mean Corpuscular Volume 90.6 Mean Corpuscular Hemoglobin 28.4 L Mean Corpuscular Hemoglobin Concent 31.4 L Red Cell Distribution Width 15.5 H Platelet Count 198 Mean Platelet Volume 10.5 H Immature Granulocytes % 0.700 H Neutrophils % 75.9 Lymphocytes % 10.3 L Monocytes % 10.3 Eosinophils % 2.3 Basophils % 0.5 Nucleated Red Blood Cells % 0.0 Immature Granulocytes # 0.040 H Neutrophils # 4.6 Lymphocytes # 0.6 L Monocytes # 0.6 Eosinophils # 0.1 Basophils # 0.0 Nucleated Red Blood Cells # 0.0 Prothrombin Time 13.9 Prothrombin Time Ratio 1.1 INR International Normalized Ratio 1.06 Activated Partial Thromboplast Time 32.3 Medications Medication Current Medications Collagenase (Santyl) 1 applic DAILY TOP Last administered on 05/06/18at 09:36; Admin Dose 1 APPLIC; Start 04/03/18 at 12:00 Morphine Sulfate (morphine) 6 mg Q4H PRN GTB SEVERE PAIN LEVEL 6-10 Last administered on 05/01/18at 22:57; Admin Dose 6 MG; Start 04/04/18 at 23:00 Carvedilol (Coreg) 50 mg BID GTB Last administered on 05/06/18 09:34; Admin Dose 50 MG; Start 04/08/18 at 21:00 Lansoprazole (Prevacid) 30 mg HS PO Last administered on 05/05/18 22:08; Admin Dose 30 MG; Start 04/20/18 at 21:00 Fluconazole (Diflucan) 100 mg DAILY PO Last administered on 05/06/18 09:36; Admin Dose 100 MG; Start 04/21/18 at 14:00 Albuterol (Proventil 0.083% (Neb)) 2.5 mg Q3H RESP THERAPY PRN NEB WHEEZING AND SOB; Start 04/30/18 at 19:00 Ascorbic Acid (Vitamin C) 500 mg DAILY GTB Last administered on 05/06/18 09:36; Admin Dose 500 MG; Start 05/04/18 at 09:30 Zinc Sulfate (Zinc Sulfate) 220 mg DAILY GTB Last administered on 05/06/18 09:35; Admin Dose 220 MG; Start 05/04/18 at 09:30 Multivit/Ca Carb/ B Cmplx/FA/Prenat (Sofy-Sandoval) 1 tab DAILY GTB Last administered on 05/06/18 09:33; Admin Dose 1 TAB; Start 05/04/18 at 09:30 Acetaminophen (Tylenol Liquid) 650 mg Q4H PRN GTB MILD PAIN(1-3)OR ELEVATED TEMP Last administered on 05/04/18 09:53; Admin Dose 650 MG; Start 05/04/18 at 09:30 Acetaminophen (Tylenol Supp) 650 mg Q6H PRN [place] temp over 101; Start 05/04/18 at 09:30 Polyethylene Glycol (Miralax) 17 gm DAILY PRN GTB constipation; Start 05/04/18 at 16:00 Hydralazine HCl (Apresoline) 5 mg Q6H PRN IV ELEVATED BLOOD PRESSURE; Start 05/04/18 at 22:30 Aspirin (Aspirin) 81 mg DAILY PO Last administered on 05/06/18 09:36; Admin Dose 81 MG; Start 05/05/18 at 15:00 TAMARA GRAJEDA MD May 06, 2018 13:58
--- NOTE | 2018-05-06 16:58 | RADRPT ---
Echocardiogram Report Patient Name: Pepe STEELE ID: [id number] : 1955 (62y 5m)Study Date: 05/06/2018 7:38:10 AM Gender: MAccession #: [id number] Tech: Bob Lloyd GISELLE Location: 532 Ref.Physician: TAMARA GRAJEDA Height(Cm): BSA: Weight(Kg): Quality: AdequateAccount #: Procedures: Echocardiographic Report: Transthoracic echocardiogram with complete 2D, M-Mode, and doppler examination. Indications: Embolus. Measurements: 2D/M Mode Doppler Measurement Value Normal Range Measurement Value Normal Range LVIDd 2D 4.0 [ 4.2 - 5.8 ] cm AV Peak Santhosh 1.3 [ 100.0 - 170.0 ] cm/sec LVIDs 2D 3.3 [ 2.5 - 4.0 ] cm AV Peak PG 7.0 [ 2.0 - 9.0 ] mmHg LVPWd 2D 1.2 [ 0.6 - 1.0 ] cm AI Peak PG 28.0 mmHg IVSd 2D 1.2 [ 0.6 - 1.0 ] cm AI Peak Santhosh 2.7 cm/sec AoR Diam 2D 3.1 [ 2.6 - 3.4 ] cm AI PHT 623.0 msec EDV 2D 67.9 [ 62.0 - 150.0 ] ml LVOT Peak Santhosh 1.0 [ 70.0 - 110.0 ] cm/sec ESV 2D 44.1 [ 21.0 - 61.0 ] ml LVOT Peak PG 4.0 [ 2.0 - 6.0 ] mmHg EF 2D 35.1 [ 52.0 - 72.0 ] percent MV E Peak Santhosh 0.7 [ 60.0 - 130.0 ] cm/sec LA Dimen 2D 2.0 [ 3.0 - 4.0 ] cm MV A Peak Santhosh 0.9 [ 100.0 - 120.0 ] cm/sec MV E/A 0.8 [ 0.8 - 1.5 ] ratio MV Decel Time 176 [ 104 - 258 ] msec Lat E` Santhosh 0.0 [ 10.0 - 15.0 ] cm/sec Lateral E/E` 14.9 [ 1.0 - 2.0 ] ratio MV E/A 0.8 [ 0.8 - 1.5 ] ratio Findings: Left Ventricle: Normal left ventricular cavity size. Mild concentric left ventricular hypertrophy. Moderate global left ventricular systolic dysfunction. Ejection fraction is visually estimated at 30-35 %. Right Ventricle: Normal right ventricular size. Normal right ventricular systolic function. Left Atrium: The left atrium is normal in size. Right Atrium: The right atrium is normal in size. Mitral Valve: Mitral valve leaflets appear mildly thickened. Mild mitral annular calcification. Mild to moderate mitral valve regurgitation. The regurgitation jet is eccentrically directed which may underestimate the severity of mitral regurgitation. Aortic Valve: No hemodynamically significant aortic stenosis by doppler. Aortic cusps appear mildly calcified. Mild aortic valve regurgitation. Tricuspid Valve: Normal appearance of the tricuspid valve. Unable to obtain RVSP due to minimal presence of tricuspid regurgitation. Pulmonic Valve: Normal pulmonic valve appearance. Pericardium: Normal pericardium with no significant pericardial effusion. Aorta: Normal aortic root. IVC: Inferior vena cava without respiratory collapse, however, patient on ventilator. Conclusions: Normal left ventricular cavity size. Mild concentric left ventricular hypertrophy. Moderate global left ventricular systolic dysfunction. Ejection fraction is visually estimated at 30-35 %. Mitral valve leaflets appear mildly thickened. Mild mitral annular calcification. Mild to moderate mitral valve regurgitation. The regurgitation jet is eccentrically directed which may underestimate the severity of mitral regurgitation. No hemodynamically significant aortic stenosis by doppler. Aortic cusps appear mildly calcified. Mild aortic valve regurgitation. Normal appearance of the tricuspid valve. Unable to obtain RVSP due to minimal presence of tricuspid regurgitation. Electronically Signed By: Florian Chao 2018-05-06 16:56:45 PST
[2018-05-06] MEDS: LANSOPRAZOLE 30 MG CAP PO SCH (21:12)
[2018-05-06] MEDS: ATORVASTATIN 10 MG TAB PO SCH (21:12)
[2018-05-07] VITALS (22 sets, daily range): BP systolic 72–132; BP diastolic 51–96; PULSE 72–101; RESP 17–33
--- NOTE | 2018-05-07 07:57 | CONS ---
Assessment/Plan Assessment/Plan Hospital Course (Demo Recall) 62 male with excessively bleeding gingival tissue and severe anemia 1. Severe acute on chronic anemia likely due to blood loss from gingival bleeding 3. Chronic liver disease, alcohol related 4. Mild coagulopathy 5. Elevated lipase with mildly elevated CA 19-9 -on CT scan pancreas is normal -lipid panel wnl -CBD 6mm, LFT wnl -Radiology will not do MRCP because of vent 6. Chronic kidney disease -BUN/sausage stringer wnl 7. Encephalopathy secondary to anoxic brain injury -acute on chronic? -Ct shows acute ischemic infarct, pt is on ASA 8. H/o duodenal ulcer 9. Complex UTI with lisa albicans, s/p diflucan -RESOLVED 10. 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 Persistent fevers 12. Abnormal LFTs -liver disease -trending down 13. Acute non hemorrhagic infarcts noted on Brain CT Plan: ERCP on hold for newly found brain infarcts Monitor LFT and WBC Monitor closely for GI bleeding and HH, Continue abx Pt examined and plan of care discussed with Dr. Peña Consultation Date/Type/Reason Admit Date/Time Mar 31, 2018 at 17:58 Initial Consult Date 04/02/18 Requesting Provider: TAMARA GRAJEDA MD Date/Time of Note DATE: 05/07/18 TIME: 07:55 24 HR Interval Summary Free Text/Dictation No acute changes. Tolerating tube feeds. BM soft, brown. Exam/Review of Systems Exam Vitals Vital Signs Date Temp Pulse Resp B/P (MAP) Pulse Ox O2 O2 Flow FiO2 Time Delivery Rate 05/07/18 100.3 93 28 102/51 98 Trach 07:30 (68) Collar 05/07/18 30 05:15 Intake and Output 05/06/18 05/06/18 05/07/18 1515:00 23:00 07:00 IntakeIntake Total 930 ml OutputOutput Total 950 ml 950 ml BalanceBalance -950 ml -20 ml Eyes: PERRL Respiratory: diminished breath sounds Cardiovascular: regular rate and rhythm Gastrointestinal: soft Results Result Diagram: 05/06/18 0558 05/04/18 0806 Medications Medication Current Medications Collagenase (Santyl) 1 applic DAILY TOP Last administered on 05/06/18at 09:36; Admin Dose 1 APPLIC; Start 04/03/18 at 12:00 Lansoprazole (Prevacid) 30 mg HS PO Last administered on 05/06/18 21:12; Admin Dose 30 MG; Start 04/20/18 at 21:00 Fluconazole (Diflucan) 100 mg DAILY PO Last administered on 05/06/18 09:36; Admin Dose 100 MG; Start 04/21/18 at 14:00 Albuterol (Proventil 0.083% (Neb)) 2.5 mg Q3H RESP THERAPY PRN NEB WHEEZING AND SOB; Start 04/30/18 at 19:00 Ascorbic Acid (Vitamin C) 500 mg DAILY GTB Last administered on 05/06/18 09:36; Admin Dose 500 MG; Start 05/04/18 at 09:30 Zinc Sulfate (Zinc Sulfate) 220 mg DAILY GTB Last administered on 05/06/18 09:35; Admin Dose 220 MG; Start 05/04/18 at 09:30 Multivit/Ca Carb/ B Cmplx/FA/Prenat (Sofy-Sandoval) 1 tab DAILY GTB Last administered on 05/06/18 09:33; Admin Dose 1 TAB; Start 05/04/18 at 09:30 Acetaminophen (Tylenol Liquid) 650 mg Q4H PRN GTB MILD PAIN(1-3)OR ELEVATED TEMP Last administered on 05/04/18 09:53; Admin Dose 650 MG; Start 05/04/18 at 09:30 Acetaminophen (Tylenol Supp) 650 mg Q6H PRN [place] temp over 101; Start 05/04/18 at 09:30 Polyethylene Glycol (Miralax) 17 gm DAILY PRN GTB constipation; Start 05/04/18 at 16:00 Hydralazine HCl (Apresoline) 5 mg Q6H PRN IV ELEVATED BLOOD PRESSURE; Start 05/04/18 at 22:30 Aspirin (Aspirin) 81 mg DAILY PO Last administered on 05/06/18 09:36; Admin Dose 81 MG; Start 05/05/18 at 15:00 Atorvastatin Calcium (Lipitor) 10 mg HS PO Last administered on 05/06/18 21:12; Admin Dose 10 MG; Start 05/06/18 at 21:00 QI CHRISTIANSON May 07, 2018 07:57
[2018-05-07] MEDS: MULTIVIT/CA CARB/B CMPLX/FA TAB GTB SCH (08:57)
[2018-05-07] MEDS: FLUCONAZOLE 100 MG TAB PO SCH (08:57)
[2018-05-07] MEDS: COLLAGENASE 5 GM (UD JAR) TOP SCH (08:58)
[2018-05-07] MEDS: ASPIRIN 81 MG TAB PO SCH (08:58)
[2018-05-07] MEDS: ZINC SULFATE 220 MG CAP GTB SCH (08:58)
[2018-05-07] MEDS: ASCORBIC ACID 500 MG TAB GTB SCH (08:58)
[2018-05-07] MEDS: BALSAM PERU/CASTOR OIL 60 GM TUBE TOP SCH ×2 (09:01→20:06)
--- NOTE | 2018-05-07 09:05 | CONS ---
Assessment/Plan Assessment/Plan Assessment/Plan (Daily) Long conversation with patient's grandson son and [id number] this morning. I explained to them patient's current medical condition and Dr. Rebollar recently. Emphasized the patient has no quality of life at this point having a recent stroke, ventilator dependent pegged altered mental status and generally no quality of life and suffering. Explained that patient is now vegetative in any event that he survives this hospitalization will be bedbound and in a subacute unit for the rest of his life. Also explained to them there is no chance that patient will return to his baseline cognitive abilities ever. We discussed family's mormonism believes, spiritual believes, existential believes, there were hopeful that he would improve but do not want in the suffer further. The patient's son has change the CODE STATUS to DO NOT RESUSCITATE. And I have scheduled family conference on at 11 AM May 09. Patient made it very clear that he feels that other family members should have a say in pursuing end-of-life care, comfort measures, hospice care. He made it very clear also that he is in between doing the best for his father and having to respect to opinions of other family members. Plan as outlined above. Consultation Date/Type/Reason Admit Date/Time Mar 31, 2018 at 17:58 Date/Time of Note DATE: 05/07/18 TIME: 09:01 Past Medical History Medical History: congestive heart failure, diabetes, GERD, hepatitis, pancreatitis, peptic ulcer disease, renal disease, urinary tract infection Home Meds Reported Medications Cran/Vitc/Mannose/Inulin/Brom (Uti-Stat Liquid) 3,875 Mg/30 Ml Liquid, 3875 MG GTB DAILY 03/31/18 Ascorbic Acid* (Vitamin C*) 500 Mg Capsule.sa, 500 MG GTB DAILY, CAP 03/31/18 Zinc Sulfate* (Zinc Sulfate*) 220 Mg Tablet, 220 MG GTB DAILY, TAB 03/31/18 Acetaminophen* (Acetaminophen*) 650 Mg Tablet, 650 MG GTB Q4 PRN for MILD PAIN LEVEL 1-3, #30 TAB AND FEVER 03/31/18 Acetaminophen* (Acetaminophen*) 500 MG Extra Strength Tablet, 1000 MG GTB Q4 PRN for MODERATE PAIN LEVEL 4-6, TAB 03/31/18 Acetaminophen* (Acetaminophen*) 325 Mg Tablet, 650 MG GTB TRACH CHANGE PRN for PAIN, #30 TAB GIVE 30 MIN PRIOR TO CHANGE 03/31/18 Spironolactone* (Aldactone*) 25 Mg Tablet, 25 MG GTB DAILY, #30 TAB 03/31/18 Multivit/Ca Carb/B Cmplx/Fa* (Sofy-Sandoval*) 1 Tab Tab, 1 TAB GTB DAILY, TAB 03/31/18 Hydrocodone/Acetaminophen (Cade 5-325 Tablet) 1 Each Tablet, 1 EACH GTB BID, TAB 03/31/18 Midodrine* (Midodrine*) 5 Mg Tablet, 5 MG GTB BID, TAB HOLD FOR SBP ABOVE 110 03/31/18 Na Phos,M-B/Na Phos,Di-Ba (ENEMA [id number]) 133 Ml Enema, 133 ML RC EVERY TWO DAYS PRN for CONSTIPATION, ENEMA 03/31/18 Bisacodyl (Dulcolax) 10 Mg Supp.rect, 10 MG RC DAILY PRN for CONSTIPATION, SUPP.RECT 03/31/18 Carvedilol* (Carvedilol*) 25 Mg Tablet, 25 MG GTB BID, #60 TAB HOLD FOR SBP BELOW 100 OR HR BELOW 50 03/31/18 Albuterol Sulfate* (Albuterol Sulfate* Neb) 0.083%-3 Ml Neb, 2.5 MG NEB Q6 PRN for WHEEZING AND SOB, #30 VIAL 03/31/18 Albuterol Sulfate* (Albuterol Sulfate* Neb) 0.083%-3 Ml Neb, 2.5 MG NEB Q3H PRN for WHEEZING AND SOB, #30 VIAL 03/31/18 Lactobacillus Acidophilus/Pect (Acidophilus-Pectin Capsule) 1 Each Capsule, 1 EACH GTB DAILY, CAP 03/31/18 Medications Current Medications Collagenase (Santyl) 1 applic DAILY TOP Last administered on 05/06/18at 09:36; Admin Dose 1 APPLIC; Start 04/03/18 at 12:00 Lansoprazole (Prevacid) 30 mg HS PO Last administered on 05/06/18at 21:12; Admin Dose 30 MG; Start 04/20/18 at 21:00 Fluconazole (Diflucan) 100 mg DAILY PO Last administered on 05/06/18at 09:36; Admin Dose 100 MG; Start 04/21/18 at 14:00 Albuterol (Proventil 0.083% (Neb)) 2.5 mg Q3H RESP THERAPY PRN NEB WHEEZING AND SOB; Start 04/30/18 at 19:00 Ascorbic Acid (Vitamin C) 500 mg DAILY GTB Last administered on 05/06/18at 09:36; Admin Dose 500 MG; Start 05/04/18 at 09:30 Zinc Sulfate (Zinc Sulfate) 220 mg DAILY GTB Last administered on 05/06/18at 09:35; Admin Dose 220 MG; Start 05/04/18 at 09:30 Multivit/Ca Carb/ B Cmplx/FA/Prenat (Sofy-Sandoval) 1 tab DAILY GTB Last administered on 05/06/18 09:33; Admin Dose 1 TAB; Start 05/04/18 at 09:30 Acetaminophen (Tylenol Liquid) 650 mg Q4H PRN GTB MILD PAIN(1-3)OR ELEVATED TEMP Last administered on 05/04/18at 09:53; Admin Dose 650 MG; Start 05/04/18 at 09:30 Acetaminophen (Tylenol Supp) 650 mg Q6H PRN [place] temp over 101; Start 05/04/18 at 09:30 Polyethylene Glycol (Miralax) 17 gm DAILY PRN GTB constipation; Start 05/04/18 at 16:00 Hydralazine HCl (Apresoline) 5 mg Q6H PRN IV ELEVATED BLOOD PRESSURE; Start 05/04/18 at 22:30 Aspirin (Aspirin) 81 mg DAILY PO Last administered on 05/06/18at 09:36; Admin Dose 81 MG; Start 05/05/18 at 15:00 Atorvastatin Calcium (Lipitor) 10 mg HS PO Last administered on 05/06/18at 21:12; Admin Dose 10 MG; Start 05/06/18 at 21:00 Allergies: Coded Allergies: No Known Allergy (Unverified , 04/30/18) Past Surgical History Past Surgical Hx: other (Known) Social History Alcohol Use: occasionally Smoking Status: Unknown if ever smoked Exam/Review of Systems Exam Vitals Vital Signs Date Temp Pulse Resp B/P (MAP) Pulse Ox O2 O2 Flow FiO2 Time Delivery Rate 05/07/18 100.3 93 28 102/51 98 Trach 07:30 (68) Collar 05/07/18 30 05:15 Intake and Output 205/06/18 05/07/18 1515:00 23:00 07:00 IntakeIntake Total 930 ml OutputOutput Total 950 ml 950 ml BalanceBalance -950 ml -20 ml Results Result Diagram: 05/06/18 0558 05/04/18 0806 Results 24hrs Laboratory Tests Test 05/07/18 07:21 Sodium Level 135 Potassium Level 4.6 Chloride Level 111 H Carbon Dioxide Level 19 L Anion Gap 5 Blood Urea Nitrogen 47 H Creatinine 1.00 Est Glomerular Filtrat Rate mL/min > 60 Glucose Level 102 Calcium Level 8.3 L Medications Medication Current Medications Collagenase (Santyl) 1 applic DAILY TOP Last administered on 05/06/18 09:36; Admin Dose 1 APPLIC; Start 04/03/18 at 12:00 Lansoprazole (Prevacid) 30 mg HS PO Last administered on 05/06/18 21:12; Admin Dose 30 MG; Start 04/20/18 at 21:00 Fluconazole (Diflucan) 100 mg DAILY PO Last administered on 05/06/18 09:36; Admin Dose 100 MG; Start 04/21/18 at 14:00 Albuterol (Proventil 0.083% (Neb)) 2.5 mg Q3H RESP THERAPY PRN NEB WHEEZING AND SOB; Start 04/30/18 at 19:00 Ascorbic Acid (Vitamin C) 500 mg DAILY GTB Last administered on 05/06/18 09:36; Admin Dose 500 MG; Start 05/04/18 at 09:30 Zinc Sulfate (Zinc Sulfate) 220 mg DAILY GTB Last administered on 05/06/18 09:35; Admin Dose 220 MG; Start 05/04/18 at 09:30 Multivit/Ca Carb/ B Cmplx/FA/Prenat (Sofy-Sandoval) 1 tab DAILY GTB Last administered on 05/06/18 09:33; Admin Dose 1 TAB; Start 05/04/18 at 09:30 Acetaminophen (Tylenol Liquid) 650 mg Q4H PRN GTB MILD PAIN(1-3)OR ELEVATED TEMP Last administered on 05/04/18 09:53; Admin Dose 650 MG; Start 05/04/18 at 09:30 Acetaminophen (Tylenol Supp) 650 mg Q6H PRN [place] temp over 101; Start 05/04/18 at 09:30 Polyethylene Glycol (Miralax) 17 gm DAILY PRN GTB constipation; Start 05/04/18 at 16:00 Hydralazine HCl (Apresoline) 5 mg Q6H PRN IV ELEVATED BLOOD PRESSURE; Start 05/04/18 at 22:30 Aspirin (Aspirin) 81 mg DAILY PO Last administered on 05/06/18at 09:36; Admin Dose 81 MG; Start 05/05/18 at 15:00 Atorvastatin Calcium (Lipitor) 10 mg HS PO Last administered on 05/06/18at 21:12; Admin Dose 10 MG; Start 05/06/18 at 21:00 DASH ESCALANTE May 07, 2018 09:05
--- NOTE | 2018-05-07 10:54 | PN ---
Date/Time of Note Date/Time of Note DATE: 05/07/18 TIME: 10:51 Assessment/Plan Lines/Catheters IV Catheter Type (from Nrs): Saline Lock Schwartz in Place (from Nrs): Yes Assessment/Plan Chief Complaint/Hosp Course 1. Decubitus pressure ulcers with necrosis s/p exc milena 04/30 -cont Local care -Offload -Nutritional optimization -Vitamin C -Short-term zinc -Further debridement prn 2. Functional quadriplegia with history of stroke secondary to drug and alcohol abuse, chronic encephalopathy with acute nonhemorrhagic infarcts seen on recent ct -per neuro -Medical optimization as above -Family meeting regarding goals of care 3. Dilated cardiomyopathy with congestive heart failure and coronary artery disease with history of hypertension -Cardiac optimization -Judicious fluid management -Electrolyte optimization 4. Chronic renal disease -Judicious fluid management -Minimize nephrotoxic agents if possible 5. Dysphagia on tube feeds 6. Anemia -Monitor 7. Ventilator dependent respiratory failure -Ventilator management and pulmonary toilet 8. Abnormal lipase and ca19-9 s/p ercp 04/30 with stricture and sphincterotomy -repeat ercp per gi held 04/27 acute strokes -trend 9. Poor quality of life -family meeting with palliative pending Thank you. Patient seen and examined in collaboration with Dr. Chet Melvin. Subjective 24 Hr Interval Summary No overnight events. Appears comfortable. Nonverbal indicators of pain not present. Low-grade fever. No congested cough, labored breathing, vomiting, jean rrhea, seizure, rash. CODE STATUS changed to DNR. Exam/Review of Systems Vital Signs Vitals Vital Signs Date Temp Pulse Resp B/P (MAP) Pulse Ox O2 O2 Flow FiO2 Time Delivery Rate 05/07/18 97 08:00 05/07/18 100.3 28 102/51 98 Trach 07:30 (68) Collar 05/07/18 30 05:15 Intake and Output 05/06/18 05/06/18 05/07/18 1414:59 22:59 06:59 IntakeIntake Total 930 ml OutputOutput Total 950 ml 950 ml BalanceBalance -950 ml -20 ml Exam Free Text/Dictation Constitutional: No alert, No oriented Psych: confusion; No nl mood/affect Head: normocephalic Eyes: nl conjunctiva, PERRL; No icteric ENMT: nl lips & teeth, mucosa pink and dry, Neck: supple, jvd (Minimal), other (Trach in place) Respiratory: No congested cough, No labored breathing, No wheezing Cardiovascular: regular rate and rhythm; No edema Gastrointestinal: soft, non-tender, other (PEG); No distended, No rebound or guarding Genitourinary - Male: nl penis Musculoskeletal: No nl gait and stance, No joint tenderness Extremities: edema; No calf tenderness, No tenderness Neurological: No nl mental status, No nl speech, No nl strength Skin: rash or lesions (bilat buttock pressure decubitus wounds packed, Lower extremity wounds.), ecchymosis; No nl turgor, No diaphoresis Lymph: No nl lymph nodes Results Result Diagram: 05/06/18 0558 05/07/18 0721 AURE ENRIQUEZ NP May 07, 2018 10:54
--- NOTE | 2018-05-07 11:12 | CONS ---
Assessment/Plan Assessment/Plan Hospital Course (Demo Recall) No acute events, looks comfortable Antimicrobials: Diflucan Indwelling: Trach PEG Schwartz. Microbiology: sputum culture + Pseudomonas Physical examination: Chronically ill-appearing elderly man who is noncommunicative in no distress. Head atraumatic normocephalic sclera nonicteric neck is supple tracheostomy present chest rise symmetrical breath sounds diminished bases heart: S1-S2. Abdomen soft bowel sounds present. Extremities without cyanosis. Skin: Patient has multiple pressure sores he has a dry blood on the right lower lip Assessment: 1. S/p sepsis secondary to urinary tract infection and HCAP 2. 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 VDRF 3. Dysphagia 4. Chronic encephalopathy 5. History of cardiomyopathy 6. Sacral decub, s/p debridement 04/30/18 7. MRSA nares colonization 8. Elevated amylase and lipase of unclear etiology Plan: Clinically unchanged, off abx, pending wbc labeled nuclear scan, neurology rec-s noted, ongoing discussions with family re goals of care Consultation Date/Type/Reason Admit Date/Time Mar 31, 2018 at 17:58 Initial Consult Date 04/02/18 Type of Consult id Requesting Provider: TAMARA GRAJEDA MD Date/Time of Note DATE: 05/07/18 TIME: 11:11 Exam/Review of Systems Exam Vitals Vital Signs Date Temp Pulse Resp B/P (MAP) Pulse Ox O2 O2 Flow FiO2 Time Delivery Rate 05/07/18 99.9 101 33 110/96 96 Trach 10:59 (101) Collar 05/07/18 30 05:15 Intake and Output 05/06/18 05/06/18 05/07/18 1515:00 23:00 07:00 IntakeIntake Total 930 ml OutputOutput Total 950 ml 950 ml BalanceBalance -950 ml -20 ml Results Result Diagram: 05/06/18 0558 05/07/18 0721 Results 24hrs Laboratory Tests Test 05/07/18 07:21 Sodium Level 135 Potassium Level 4.6 Chloride Level 111 H Carbon Dioxide Level 19 L Anion Gap 5 Blood Urea Nitrogen 47 H Creatinine 1.00 Est Glomerular Filtrat Rate mL/min > 60 Glucose Level 102 Calcium Level 8.3 L Medications Medication Current Medications Collagenase (Santyl) 1 applic DAILY TOP Last administered on 05/07/18 08:58; Admin Dose 1 APPLIC; Start 04/03/18 at 12:00 Lansoprazole (Prevacid) 30 mg HS PO Last administered on 05/06/18 21:12; Admin Dose 30 MG; Start 04/20/18 at 21:00 Fluconazole (Diflucan) 100 mg DAILY PO Last administered on 05/07/18 08:57; Admin Dose 100 MG; Start 04/21/18 at 14:00 Albuterol (Proventil 0.083% (Neb)) 2.5 mg Q3H RESP THERAPY PRN NEB WHEEZING AND SOB; Start 04/30/18 at 19:00 Ascorbic Acid (Vitamin C) 500 mg DAILY GTB Last administered on 05/07/18 08:58; Admin Dose 500 MG; Start 05/04/18 at 09:30 Zinc Sulfate (Zinc Sulfate) 220 mg DAILY GTB Last administered on 05/07/18 08:58; Admin Dose 220 MG; Start 05/04/18 at 09:30 Multivit/Ca Carb/ B Cmplx/FA/Prenat (Sofy-Sandoval) 1 tab DAILY GTB Last administered on 05/07/18 08:57; Admin Dose 1 TAB; Start 05/04/18 at 09:30 Acetaminophen (Tylenol Liquid) 650 mg Q4H PRN GTB MILD PAIN(1-3)OR ELEVATED TEMP Last administered on 05/04/18 09:53; Admin Dose 650 MG; Start 05/04/18 at 09:30 Acetaminophen (Tylenol Supp) 650 mg Q6H PRN [place] temp over 101; Start 05/04/18 at 09:30 Polyethylene Glycol (Miralax) 17 gm DAILY PRN GTB constipation; Start 05/04/18 at 16:00 Hydralazine HCl (Apresoline) 5 mg Q6H PRN IV ELEVATED BLOOD PRESSURE; Start 05/04/18 at 22:30 Aspirin (Aspirin) 81 mg DAILY PO Last administered on 05/07/18 08:58; Admin Dose 81 MG; Start 05/05/18 at 15:00 Atorvastatin Calcium (Lipitor) 10 mg HS PO Last administered on 05/06/18 21:12; Admin Dose 10 MG; Start 05/06/18 at 21:00 RENÉ GARCIA NP May 07, 2018 11:12
--- NOTE | 2018-05-07 13:25 | PN ---
Date/Time of Note Date/Time of Note DATE: 05/07/18 TIME: 13:25 Assessment/Plan VTE Prophylaxis Risk score (from Ns)>0 risk: 5 SCD applied (from Ns): Yes Pharmacological prophylaxis: NA/contraindicated Pharm contraindication: low risk/ambulating Lines/Catheters IV Catheter Type (from Nrsg): Saline Lock Urinary Cath still in place: Yes Reason Cath still needed: urinary retention Assessment/Plan Hospital Course 62 y/o with # Oral gingival bleeding likely due to dentures, seen by ENT s/p endoscopy # Sepsis with Fevers with hx Pneumonia +UTI and ? Pancreatitis +multiple wounds, ucx+ lisa, wound cx+ MRSA/ pseudomonas, +resp culture +pseudomonas # Blood loss anemia due to oral gingival bleeding # VDRF # CKD with worsening renal failure>resolved # Metabolic acidosis #DILATED CARDIOMYOPATHY # HX ALCOHOL ABUSE # Multiple wounds > decub # Pancreatitis with elevated Lipase # Enterocoltiis on CT # AMS due to Metabolic encephalopathy with . Possible subacute infarct in the left cerebellar hemisphere and cerebellar peduncle> much improved> now again AMS? encephalopathy> now with new stroke on 05/05/18 #Ongoing fevers likely secondary to UTI/hcap now improved> again with fevers> +psedomonas in sputum Plan - cw asa/statin - echo pending - abx oer ID> adjusted - WBC scan - fu neuro recs - ERCP cancelled due to new stroke - Family meeting discussed goals of care, will let us know, rediscussed again today - GI prophylaxsis - monitor oral bleeding - labs am - PT/OT/Speech Result Diagram: 05/06/18 0558 05/07/18 0721 Results 24hrs Laboratory Tests Test 05/07/18 07:21 Sodium Level 135 Potassium Level 4.6 Chloride Level 111 H Carbon Dioxide Level 19 L Anion Gap 5 Blood Urea Nitrogen 47 H Creatinine 1.00 Est Glomerular Filtrat Rate mL/min > 60 Glucose Level 102 Calcium Level 8.3 L Exam/Review of Systems Exam Vitals Vital Signs Date Temp Pulse Resp B/P (MAP) Pulse Ox O2 O2 Flow FiO2 Time Delivery Rate 05/07/18 99 32 100 30 11:19 05/07/18 99.9 110/96 Trach 10:59 (101) Collar Intake and Output 05/06/18 05/06/18 05/07/18 1515:00 23:00 07:00 IntakeIntake Total 930 ml OutputOutput Total 950 ml 950 ml BalanceBalance -950 ml -20 ml Results Results 24hrs Laboratory Tests Test 05/07/18 07:21 Sodium Level 135 Potassium Level 4.6 Chloride Level 111 H Carbon Dioxide Level 19 L Anion Gap 5 Blood Urea Nitrogen 47 H Creatinine 1.00 Est Glomerular Filtrat Rate mL/min > 60 Glucose Level 102 Calcium Level 8.3 L Medications Medication Current Medications Collagenase (Santyl) 1 applic DAILY TOP Last administered on 05/07/18 08:58; Admin Dose 1 APPLIC; Start 04/03/18 at 12:00 Lansoprazole (Prevacid) 30 mg HS PO Last administered on 05/06/18 21:12; Admin Dose 30 MG; Start 04/20/18 at 21:00 Fluconazole (Diflucan) 100 mg DAILY PO Last administered on 05/07/18 08:57; Admin Dose 100 MG; Start 04/21/18 at 14:00 Albuterol (Proventil 0.083% (Neb)) 2.5 mg Q3H RESP THERAPY PRN NEB WHEEZING AND SOB; Start 04/30/18 at 19:00 Ascorbic Acid (Vitamin C) 500 mg DAILY GTB Last administered on 05/07/18 08:58; Admin Dose 500 MG; Start 05/04/18 at 09:30 Zinc Sulfate (Zinc Sulfate) 220 mg DAILY GTB Last administered on 05/07/18 08:58; Admin Dose 220 MG; Start 05/04/18 at 09:30 Multivit/Ca Carb/ B Cmplx/FA/Prenat (Sofy-Sandoval) 1 tab DAILY GTB Last administered on 05/07/18 08:57; Admin Dose 1 TAB; Start 05/04/18 at 09:30 Acetaminophen (Tylenol Liquid) 650 mg Q4H PRN GTB MILD PAIN(1-3)OR ELEVATED TEMP Last administered on 05/04/18 09:53; Admin Dose 650 MG; Start 05/04/18 at 09:30 Acetaminophen (Tylenol Supp) 650 mg Q6H PRN [place] temp over 101; Start 05/04/18 at 09:30 Polyethylene Glycol (Miralax) 17 gm DAILY PRN GTB constipation; Start 05/04/18 at 16:00 Hydralazine HCl (Apresoline) 5 mg Q6H PRN IV ELEVATED BLOOD PRESSURE; Start 05/04/18 at 22:30 Aspirin (Aspirin) 81 mg DAILY PO Last administered on 05/07/18at 08:58; Admin Dose 81 MG; Start 05/05/18 at 15:00 Atorvastatin Calcium (Lipitor) 10 mg HS PO Last administered on 05/06/18at 21:12; Admin Dose 10 MG; Start 05/06/18 at 21:00 TAMARA GRAJEDA MD May 07, 2018 13:25
[2018-05-07] MEDS: SOD CHLORIDE 0.9% 1,000 ML IV SCH (13:38)
[2018-05-07] MEDS: ACETAMINOPHEN 650MG/20.3ML CUP GTB PRN (13:48)
--- NOTE | 2018-05-07 15:23 | CONS ---
Assessment/Plan Assessment/Plan Hospital Course 62 M c/ Hx of methamphetamine/ETOH abuse c/b cirrhosis and dilated cardiomyopathy... and other comorbidities, admitted for evaluation of gingival bleeding..and fevers.... Neurology is again consulted to evaluate encephalopathy and assess prognosis for meaningful neurologic recovery.. The clinical picture again suggests an acute toxic-metabolic (?on chronic) encephalopathy. Repeat Head CT shows a new R temporal infarction..which may be a contributor.. Recent MRI brain was notable for a subacute cerebellar infarction, though it is limited by motion.. Recent EEG was without epileptiform activity. His prognosis for meaningful neurologic recovery remains guarded. P: Agree w/ asa daily for secondary stroke prevention, as medically able (severe anemia noted...); LDL is at goal... Limit sedating medications where possible PT/OT/ST as able Continued medical management and supportive care per primary Will follow Consultation Date/Type/Reason Admit Date/Time Mar 31, 2018 at 17:58 Type of Consult Neurology Requesting Provider: TAMARA GRAJEDA MD Date/Time of Note DATE: 05/07/18 TIME: 15:23 24 HR Interval Summary Free Text/Dictation Continues telemetry monitoring. Pt reportedly with low SBP in the 70s and low grade temps. Subjective hx not possible: pt non-verbal Exam Vital Signs Vitals Vital Signs Date Temp Pulse Resp B/P (MAP) Pulse Ox O2 O2 Flow FiO2 Time Delivery Rate 05/07/18 99.9 13:48 05/07/18 94 12:00 05/07/18 32 100 30 11:19 05/07/18 110/96 Trach 10:59 (101) Collar Intake and Output 05/06/18 05/06/18 05/07/18 1515:00 23:00 07:00 IntakeIntake Total 930 ml OutputOutput Total 950 ml 950 ml BalanceBalance -950 ml -20 ml Exam PE: Gen Appearance: Profusely diaphoretic HEENT: Trach Cardiovascular: Regular rate Abdomen: Soft; has PEG Extremities: Dry NE: The patient was obtunded and nonverbal. Grimaced to noxious stimuli. Cranial nerve examination was limited by mental status. Pupils were equal and reactive to light. There was no afferent pupillary defect. Funduscopic examination was limited. Face was grossly symmetric, w/ present corneal and cough reflexes. Tone was normal. Muscle bulk was normal. I did not see fasciculations. The patient withdrew to noxious stimulation x 4. Coordination and gait testing was limited by mental status. Arm and leg reflexes were within normal limits and symmetric. Maguire's sign was absent. Plantar responses were flexor. ANURAG PRESSLEY NP May 07, 2018 15:23 MANDO PINO May 07, 2018 19:40
[2018-05-07] MEDS ORDERED: SOD CHLORIDE 0.9% 500 ML IV ONE (15:30)
[2018-05-07] MEDS: LANSOPRAZOLE 30 MG CAP PO SCH (20:05)
[2018-05-07] MEDS: ATORVASTATIN 10 MG TAB PO SCH (20:05)
[2018-05-08] VITALS (18 sets, daily range): BP systolic 100–137; BP diastolic 73–99; PULSE 84–97; RESP 16–32
[2018-05-08] MEDS: SOD CHLORIDE 0.9% 1,000 ML IV SCH ×3 (03:10→18:09)
--- NOTE | 2018-05-08 07:28 | CONS ---
Assessment/Plan Assessment/Plan Hospital Course (Demo Recall) 62 male with excessively bleeding gingival tissue and severe anemia 1. Severe acute on chronic anemia likely due to blood loss from gingival bleeding 3. Chronic liver disease, alcohol related 4. Mild coagulopathy 5. Elevated lipase with mildly elevated CA 19-9 -on CT scan pancreas is normal -lipid panel wnl -CBD 6mm, LFT wnl -Radiology will not do MRCP because of vent 6. Chronic kidney disease -BUN/structures mechanic wnl 7. Encephalopathy secondary to anoxic brain injury -acute on chronic? -Ct shows acute ischemic infarct, pt is on ASA 8. H/o duodenal ulcer 9. Complex UTI with lisa albicans, s/p diflucan -RESOLVED 10. 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 Persistent fevers -Pseudomonas aeruginosa in sputum 05/03 12. Abnormal LFTs -liver disease -trending down 13. Acute non hemorrhagic infarcts noted on Brain CT Plan: Family meeting tomorrow with Dr. Pelayo ERCP on hold for newly found brain infarcts Monitor LFT and WBC Monitor closely for GI bleeding and HH, Continue abx Pt examined and plan of care discussed with Dr. Peña Consultation Date/Type/Reason Admit Date/Time Mar 31, 2018 at 17:58 Initial Consult Date 04/02/18 Requesting Provider: TAMARA GRAJEDA MD Date/Time of Note DATE: 05/08/18 TIME: 07:26 24 HR Interval Summary Free Text/Dictation No acute changes. Frequent suctioning. Family meeting tomorrow with Dr. Pelayo. Afebrile overnight Exam/Review of Systems Exam Vitals Vital Signs Date Temp Pulse Resp B/P (MAP) Pulse Ox O2 O2 Flow FiO2 Time Delivery Rate 05/08/18 92 27 99 30 05:59 05/08/18 98.3 137/99 04:00 (112) 05/07/18 Trach 15:23 Collar Intake and Output 05/07/18 05/07/18 05/08/18 1515:00 23:00 07:00 IntakeIntake Total 2155 ml OutputOutput Total 580 ml 550 ml BalanceBalance -580 ml 1605 ml Respiratory: congested cough, diminished breath sounds Cardiovascular: regular rate and rhythm Gastrointestinal: soft Results Result Diagram: 05/06/18 0558 05/07/18 0721 Results 24hrs Laboratory Tests Test 05/07/18 15:28 Bedside Glucose 126 Medications Medication Current Medications Collagenase (Santyl) 1 applic DAILY TOP Last administered on 05/07/18 08:58; Admin Dose 1 APPLIC; Start 04/03/18 at 12:00 Lansoprazole (Prevacid) 30 mg HS PO Last administered on 05/07/18 20:05; Admin Dose 30 MG; Start 04/20/18 at 21:00 Fluconazole (Diflucan) 100 mg DAILY PO Last administered on 05/07/18 08:57; Admin Dose 100 MG; Start 04/21/18 at 14:00 Albuterol (Proventil 0.083% (Neb)) 2.5 mg Q3H RESP THERAPY PRN NEB WHEEZING AND SOB; Start 04/30/18 at 19:00 Ascorbic Acid (Vitamin C) 500 mg DAILY GTB Last administered on 05/07/18 08:58; Admin Dose 500 MG; Start 05/04/18 at 09:30 Zinc Sulfate (Zinc Sulfate) 220 mg DAILY GTB Last administered on 05/07/18 08:58; Admin Dose 220 MG; Start 05/04/18 at 09:30 Multivit/Ca Carb/ B Cmplx/FA/Prenat (Sofy-Sandoval) 1 tab DAILY GTB Last administered on 05/07/18 08:57; Admin Dose 1 TAB; Start 05/04/18 at 09:30 Acetaminophen (Tylenol Liquid) 650 mg Q4H PRN GTB MILD PAIN(1-3)OR ELEVATED TEMP Last administered on 05/07/18 13:48; Admin Dose 650 MG; Start 05/04/18 at 09:30 Acetaminophen (Tylenol Supp) 650 mg Q6H PRN [place] temp over 101; Start 05/04/18 at 09:30 Polyethylene Glycol (Miralax) 17 gm DAILY PRN GTB constipation; Start 05/04/18 at 16:00 Hydralazine HCl (Apresoline) 5 mg Q6H PRN IV ELEVATED BLOOD PRESSURE; Start 05/04/18 at 22:30 Aspirin (Aspirin) 81 mg DAILY PO Last administered on 05/07/18 08:58; Admin Dose 81 MG; Start 05/05/18 at 15:00 Atorvastatin Calcium (Lipitor) 10 mg HS PO Last administered on 2/12/19at 20:05; Admin Dose 10 MG; Start 05/06/18 at 21:00 Sodium Chloride 1,000 ml @ 75 mls/hr [id number] IV Last administered on 05/08/18at 03:10; Admin Dose 75 MLS/HR; Start 05/07/18 at 13:30 QI CHRISTIANSON May 08, 2018 07:28
[2018-05-08] MEDS: ZINC SULFATE 220 MG CAP GTB SCH (09:16)
[2018-05-08] MEDS: MULTIVIT/CA CARB/B CMPLX/FA TAB GTB SCH (09:16)
[2018-05-08] MEDS: BALSAM PERU/CASTOR OIL 60 GM TUBE TOP SCH ×2 (09:17→21:52)
[2018-05-08] MEDS: ASPIRIN 81 MG TAB PO SCH (09:17)
[2018-05-08] MEDS: ASCORBIC ACID 500 MG TAB GTB SCH (09:17)
[2018-05-08] MEDS: FLUCONAZOLE 100 MG TAB PO SCH (09:17)
[2018-05-08] MEDS: COLLAGENASE 5 GM (UD JAR) TOP SCH (09:17)
--- NOTE | 2018-05-08 12:32 | CONS ---
Assessment/Plan Assessment/Plan Hospital Course (Demo Recall) No acute events, looks comfortable Antimicrobials: Diflucan Indwelling: Trach PEG Schwartz. Microbiology: sputum culture + Pseudomonas Physical examination: Chronically ill-appearing elderly man who is noncommunicative in no distress. Head atraumatic normocephalic sclera nonicteric neck is supple tracheostomy present chest rise symmetrical breath sounds diminished bases heart: S1-S2. Abdomen soft bowel sounds present. Extremities without cyanosis. Skin: Patient has multiple pressure sores he has a dry blood on the right lower lip Assessment: 1. S/p sepsis secondary to urinary tract infection and HCAP 2. 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 VDRF 3. Dysphagia 4. Chronic encephalopathy 5. History of cardiomyopathy 6. Sacral decub, s/p debridement 04/30/18 7. MRSA nares colonization 8. Elevated amylase and lipase of unclear etiology Plan: Clinically unchanged, off abx, pending wbc labeled nuclear scan Consultation Date/Type/Reason Admit Date/Time Mar 31, 2018 at 17:58 Initial Consult Date 04/02/18 Type of Consult id Requesting Provider: TAMARA GRAJEDA MD Date/Time of Note DATE: 05/08/18 TIME: 12:32 Exam/Review of Systems Exam Vitals Vital Signs Date Temp Pulse Resp B/P (MAP) Pulse Ox O2 O2 Flow FiO2 Time Delivery Rate 05/08/18 84 31 100 30 11:45 05/08/18 98.4 125/88 11:43 (100) 05/07/18 Trach 15:23 Collar Intake and Output 05/07/18 05/07/18 05/08/18 1414:59 22:59 06:59 IntakeIntake Total 2155 ml OutputOutput Total 580 ml 550 ml BalanceBalance -580 ml 1605 ml Results Result Diagram: 05/06/18 0558 05/07/18 0721 Results 24hrs Laboratory Tests Test 05/07/18 15:28 Bedside Glucose 126 Medications Medication Current Medications Collagenase (Santyl) 1 applic DAILY TOP Last administered on 05/08/18at 09:17; Admin Dose 1 APPLIC; Start 04/03/18 at 12:00 Lansoprazole (Prevacid) 30 mg HS PO Last administered on 05/07/18at 20:05; Admin Dose 30 MG; Start 04/20/18 at 21:00 Fluconazole (Diflucan) 100 mg DAILY PO Last administered on 05/08/18 09:17; Admin Dose 100 MG; Start 04/21/18 at 14:00 Albuterol (Proventil 0.083% (Neb)) 2.5 mg Q3H RESP THERAPY PRN NEB WHEEZING AND SOB; Start 04/30/18 at 19:00 Ascorbic Acid (Vitamin C) 500 mg DAILY GTB Last administered on 05/08/18 09:17; Admin Dose 500 MG; Start 05/04/18 at 09:30 Zinc Sulfate (Zinc Sulfate) 220 mg DAILY GTB Last administered on 05/08/18 09:16; Admin Dose 220 MG; Start 05/04/18 at 09:30 Multivit/Ca Carb/ B Cmplx/FA/Prenat (Sofy-Sandoval) 1 tab DAILY GTB Last administered on 05/08/18 09:16; Admin Dose 1 TAB; Start 05/04/18 at 09:30 Acetaminophen (Tylenol Liquid) 650 mg Q4H PRN GTB MILD PAIN(1-3)OR ELEVATED TEMP Last administered on 05/07/18 13:48; Admin Dose 650 MG; Start 05/04/18 at 09:30 Acetaminophen (Tylenol Supp) 650 mg Q6H PRN [place] temp over 101; Start 05/04/18 at 09:30 Polyethylene Glycol (Miralax) 17 gm DAILY PRN GTB constipation; Start 05/04/18 at 16:00 Hydralazine HCl (Apresoline) 5 mg Q6H PRN IV ELEVATED BLOOD PRESSURE; Start 05/04/18 at 22:30 Aspirin (Aspirin) 81 mg DAILY PO Last administered on 05/08/18 09:17; Admin Dose 81 MG; Start 05/05/18 at 15:00 Atorvastatin Calcium (Lipitor) 10 mg HS PO Last administered on 05/07/18 20:05; Admin Dose 10 MG; Start 05/06/18 at 21:00 Sodium Chloride 1,000 ml @ 75 mls/hr [id number] IV Last administered on 05/08/18 03:10; Admin Dose 75 MLS/HR; Start 05/07/18 at 13:30 RENÉ GARCIA RULES EXAMINER May 08, 2018 12:32
--- NOTE | 2018-05-08 13:39 | CONS ---
Assessment/Plan Assessment/Plan Hospital Course 62 M c/ Hx of methamphetamine/ETOH abuse c/b cirrhosis and dilated cardiomyopathy... and other comorbidities, admitted for evaluation of gingival bleeding..and fevers.... Neurology is again consulted to evaluate encephalopathy and assess prognosis for meaningful neurologic recovery.. The clinical picture again suggests an acute toxic-metabolic (?on chronic) encephalopathy. Repeat Head CT shows a new R temporal infarction..which may be a contributor.. Recent MRI brain was notable for a subacute cerebellar infarction, though it is limited by motion.. Recent EEG was without epileptiform activity. His prognosis for meaningful neurologic recovery remains guarded. P: Agree w/ asa daily for secondary stroke prevention, as medically able (severe anemia noted...); LDL is at goal... Limit sedating medications where possible PT/OT/ST as able Continued medical management and supportive care per primary Will follow Consultation Date/Type/Reason Admit Date/Time Mar 31, 2018 at 17:58 Type of Consult Neurology Reason for Consultation encephalopathy; prognosis.. Requesting Provider: TAMARA GRAJEDA MD Date/Time of Note DATE: 05/08/18 TIME: 13:38 24 HR Interval Summary Free Text/Dictation Continues acute care Exam Vital Signs Vitals Vital Signs Date Temp Pulse Resp B/P (MAP) Pulse Ox O2 O2 Flow FiO2 Time Delivery Rate 05/08/18 84 31 100 30 11:45 05/08/18 98.4 125/88 11:43 (100) 05/07/18 Trach 15:23 Collar Intake and Output 05/07/18 05/07/18 05/08/18 1414:59 22:59 06:59 IntakeIntake Total 2155 ml OutputOutput Total 580 ml 550 ml BalanceBalance -580 ml 1605 ml Exam PE: Gen Appearance: No Apparent Distress HEENT: Trach Cardiovascular: Regular rate Abdomen: Soft Extremities: Dry NE: The patient was lethargic and nonverbal. Cranial nerve examination was limited by mental status. Pupils were equal and reactive to light. There was no afferent pupillary defect. Funduscopic examination was limited. Face was grossly symmetric, w/ present corneal and cough reflexes. Tone was increased. Muscle bulk was reduced. I did not see fasciculations. The patient withdrew to noxious stimulation x 4..and moved his left arm spontaneously... Coordination and gait testing was limited by mental status. Arm and leg reflexes were symmetric. Maguire's sign was absent. Plantar responses were flexor. MANDO PINO May 08, 2018 13:39
--- NOTE | 2018-05-08 15:34 | PN ---
Date/Time of Note Date/Time of Note DATE: 05/08/18 TIME: 15:32 Assessment/Plan VTE Prophylaxis Risk score (from Ns)>0 risk: 9 SCD applied (from Ns): Yes Pharmacological prophylaxis: NA/contraindicated Pharm contraindication: low risk/ambulating Lines/Catheters IV [facility]ter [facility]from [facility] Saline Lock Urinary Cath still in place: Yes Reason Cath still needed: urinary retention Assessment/Plan Hospital Course 62 y/o with # Oral gingival bleeding likely due to dentures, seen by ENT s/p endoscopy # Sepsis with Fevers with hx Pneumonia +UTI and ? Pancreatitis +multiple wounds, ucx+ lisa, wound cx+ MRSA/ pseudomonas, +resp culture +pseudomonas # Blood loss anemia due to oral gingival bleeding # VDRF # CKD with worsening renal failure>resolved # Metabolic acidosis #DILATED CARDIOMYOPATHY # HX ALCOHOL ABUSE # Multiple wounds > decub # Pancreatitis with elevated Lipase # Enterocoltiis on CT # AMS due to Metabolic encephalopathy with . Possible subacute infarct in the left cerebellar hemisphere and cerebellar peduncle> much improved> now again AMS? encephalopathy> now with new stroke on 05/05/18 #Ongoing fevers likely secondary to UTI/hcap now improved> again with fevers> +psedomonas in sputum Plan - cw asa/statin - echo pending - off abx - iv fludis for hypotension - WBC scan - fu neuro recs - ERCP cancelled due to new stroke - Family meeting discussed goals of care, again tmw - GI prophylaxsis - monitor oral bleeding - labs am - PT/OT/Speech Result Diagram: 05/06/18 0558 05/07/18 0721 Subjective 24 Hr Interval Summary Free Text/Dictation SBP better today. No fevers wBC scan pending Exam/Review of Systems Exam Vitals Vital Signs Date Temp Pulse Resp B/P (MAP) Pulse Ox O2 O2 Flow FiO2 Time Delivery Rate 05/08/18 84 28 100 30 13:38 05/08/18 98.4 125/88 11:43 (100) 05/07/18 Trach 15:23 Collar Intake and Output 05/07/18 05/07/18 05/08/18 1414:59 22:59 06:59 IntakeIntake Total 2155 ml OutputOutput Total 580 ml 550 ml BalanceBalance -580 ml 1605 ml Exam Exam Constitutional: non-verbal, respond to painful stimuli, does not follow commands ENMT: other (trach) Neck: supple Respiratory: diminished breath sounds Cardiovascular: regular rate and rhythm Gastrointestinal: soft Medications Medication Current Medications Collagenase (Santyl) 1 applic DAILY TOP Last administered on 05/08/18 09:17; Admin Dose 1 APPLIC; Start 04/03/18 at 12:00 Lansoprazole (Prevacid) 30 mg HS PO Last administered on 05/07/18 20:05; Admin Dose 30 MG; Start 04/20/18 at 21:00 Fluconazole (Diflucan) 100 mg DAILY PO Last administered on 05/08/18 09:17; Admin Dose 100 MG; Start 04/21/18 at 14:00 Albuterol (Proventil 0.083% (Neb)) 2.5 mg Q3H RESP THERAPY PRN NEB WHEEZING AND SOB; Start 04/30/18 at 19:00 Ascorbic Acid (Vitamin C) 500 mg DAILY GTB Last administered on 05/08/18 09:17; Admin Dose 500 MG; Start 05/04/18 at 09:30 Zinc Sulfate (Zinc Sulfate) 220 mg DAILY GTB Last administered on 05/08/18 09:16; Admin Dose 220 MG; Start 05/04/18 at 09:30 Multivit/Ca Carb/ B Cmplx/FA/Prenat (Sofy-Sandoval) 1 tab DAILY GTB Last administered on 05/08/18 09:16; Admin Dose 1 TAB; Start 05/04/18 at 09:30 Acetaminophen (Tylenol Liquid) 650 mg Q4H PRN GTB MILD PAIN(1-3)OR ELEVATED TEMP Last administered on 05/07/18 13:48; Admin Dose 650 MG; Start 05/04/18 at 09:30 Acetaminophen (Tylenol Supp) 650 mg Q6H PRN [place] temp over 101; Start 05/04/18 at 09:30 Polyethylene Glycol (Miralax) 17 gm DAILY PRN GTB constipation; Start 05/04/18 at 16:00 Hydralazine HCl (Apresoline) 5 mg Q6H PRN IV ELEVATED BLOOD PRESSURE; Start 05/04/18 at 22:30 Aspirin (Aspirin) 81 mg DAILY PO Last administered on 05/08/18 09:17; Admin Dose 81 MG; Start 05/05/18 at 15:00 Atorvastatin Calcium (Lipitor) 10 mg HS PO Last administered on 05/07/18at 20:05; Admin Dose 10 MG; Start 05/06/18 at 21:00 Sodium Chloride 1,000 ml @ 75 mls/hr [id number] IV Last administered on 05/08/18at 03:10; Admin Dose 75 MLS/HR; Start 05/07/18 at 13:30 TAMARA GRAJEDA MD May 08, 2018 15:33
--- NOTE | 2018-05-08 20:11 | PN ---
Date/Time of Note Date/Time of Note DATE: 05/08/18 TIME: 20:03 Assessment/Plan Lines/Catheters IV Catheter Type (from Nrs): Saline Lock Schwartz in Place (from Nrs): Yes Assessment/Plan Chief Complaint/Hosp Course 1. Decubitus pressure ulcers with necrosis s/p exc milena 04/30 -cont Local care -Offload -Nutritional optimization -Vitamin C -Short-term zinc -Further debridement prn 2. Functional quadriplegia with history of stroke secondary to drug and alcohol abuse, chronic encephalopathy with acute nonhemorrhagic infarcts seen on recent ct -per neuro -Medical optimization as above -Family meeting regarding goals of care 3. Dilated cardiomyopathy with congestive heart failure and coronary artery disease with history of hypertension -Cardiac optimization -Judicious fluid management -Electrolyte optimization 4. Chronic renal disease -Judicious fluid management -Minimize nephrotoxic agents if possible 5. Dysphagia on tube feeds 6. Anemia -Monitor 7. Ventilator dependent respiratory failure -Ventilator management and pulmonary toilet 8. Abnormal lipase and ca19-9 s/p ercp 04/30 with stricture and sphincterotomy -repeat ercp per gi held 04/27 acute strokes -trend 9. Poor quality of life -family meeting with palliative pending Tomorrow Thank you. Patient seen and examined in collaboration with Dr. Chet Melvin. Subjective 24 Hr Interval Summary No fevers, congested cough, vomiting, diarrhea, sz, rash. Appears comfortable on vent, nonverbal indicators of pain not present. Exam/Review of Systems Vital Signs Vitals Vital Signs Date Temp Pulse Resp B/P (MAP) Pulse Ox O2 O2 Flow FiO2 Time Delivery Rate 05/08/18 82 30 100 30 17:10 05/08/18 98.4 125/88 11:43 (100) 05/07/18 Trach 15:23 Collar Intake and Output 05/07/18 05/07/18 05/08/18 1515:00 23:00 07:00 IntakeIntake Total 2155 ml OutputOutput Total 580 ml 550 ml BalanceBalance -580 ml 1605 ml Exam Free Text/Dictation Constitutional: No alert, No oriented Psych: confusion; No nl mood/affect Head: normocephalic Eyes: nl conjunctiva, PERRL; No icteric ENMT: nl lips & teeth, mucosa pink and dry, Neck: supple, jvd (Minimal), other (Trach in place) Respiratory: No congested cough, No labored breathing, No wheezing Cardiovascular: regular rate and rhythm; No edema Gastrointestinal: soft, non-tender, other (PEG); No distended, No rebound or guarding Genitourinary - Male: nl penis Musculoskeletal: No nl gait and stance, No joint tenderness Extremities: edema; No calf tenderness, No tenderness Neurological: No nl mental status, No nl speech, No nl strength Skin: rash or lesions (bilat buttock pressure decubitus wounds packed, Lower extremity wounds.), ecchymosis; No nl turgor, No diaphoresis Lymph: No nl lymph nodes Results Result Diagram: 05/06/18 0558 05/07/18 0721 AURE ENRIQUEZ NP May 08, 2018 20:11
[2018-05-08] MEDS: ATORVASTATIN 10 MG TAB PO SCH (21:52)
[2018-05-08] MEDS: LANSOPRAZOLE 30 MG CAP PO SCH (21:52)
[2018-05-09] VITALS (23 sets, daily range): BP systolic 102–137; BP diastolic 75–93; PULSE 86–102; RESP 16–31
[2018-05-09] MEDS: SOD CHLORIDE 0.9% 1,000 ML IV SCH ×2 (06:35→21:34)
[2018-05-09] MEDS: ASCORBIC ACID 500 MG TAB GTB SCH (09:07)
[2018-05-09] MEDS: MULTIVIT/CA CARB/B CMPLX/FA TAB GTB SCH (09:07)
[2018-05-09] MEDS: FLUCONAZOLE 100 MG TAB PO SCH (09:07)
[2018-05-09] MEDS: BALSAM PERU/CASTOR OIL 60 GM TUBE TOP SCH ×2 (09:07→21:36)
[2018-05-09] MEDS: COLLAGENASE 5 GM (UD JAR) TOP SCH (09:07)
[2018-05-09] MEDS: ASPIRIN 81 MG TAB PO SCH (09:07)
[2018-05-09] MEDS: ZINC SULFATE 220 MG CAP GTB SCH (09:07)
--- NOTE | 2018-05-09 10:57 | PN ---
Date/Time of Note Date/Time of Note DATE: 05/09/18 TIME: 10:54 Assessment/Plan Lines/Catheters IV Catheter Type (from Nrs): Saline Lock Schwartz in Place (from Nrs): Yes Assessment/Plan Chief Complaint/Hosp Course 1. Decubitus pressure ulcers with necrosis s/p exc milena 04/30 -cont Local care -Offload -Nutritional optimization -Vitamin C -Short-term zinc -Further debridement prn 2. Functional quadriplegia with history of stroke secondary to drug and alcohol abuse, chronic encephalopathy with acute nonhemorrhagic infarcts seen on recent ct -per neuro -Medical optimization as above -Family meeting regarding goals of care 3. Dilated cardiomyopathy with congestive heart failure and coronary artery disease with history of hypertension -Cardiac optimization -Judicious fluid management -Electrolyte optimization 4. Chronic renal disease -Judicious fluid management -Minimize nephrotoxic agents if possible 5. Dysphagia on tube feeds 6. Anemia -Monitor 7. Ventilator dependent respiratory failure -Ventilator management and pulmonary toilet 8. Abnormal lipase and ca19-9 s/p ercp 04/30 with stricture and sphincterotomy -repeat ercp per gi held 04/27 acute strokes -trend 9. Poor quality of life -family meeting with palliative pending Today Thank you. Patient seen and examined in collaboration with Dr. Chet Melvin. Subjective 24 Hr Interval Summary Family meeting pending today. No fevers, labored breathing, congested cough, arrhythmias, v/d/hematuria. Appears comfortable. Nonverbal indicators of pain not present. Exam/Review of Systems Vital Signs Vitals Vital Signs Date Temp Pulse Resp B/P (MAP) Pulse Ox O2 O2 Flow FiO2 Time Delivery Rate 05/09/18 87 20 100 30 09:13 05/09/18 98.6 135/89 07:57 (104) 05/07/18 Trach 15:23 Collar Intake and Output 05/08/18 05/08/18 05/09/18 1515:00 23:00 07:00 IntakeIntake Total 1930 ml 605 ml OutputOutput Total 1900 ml 600 ml BalanceBalance 30 ml 5 ml Exam Free Text/Dictation Constitutional: No alert, No oriented Psych: confusion; No nl mood/affect Head: normocephalic Eyes: nl conjunctiva, PERRL; No icteric ENMT: nl lips & teeth, mucosa pink and dry, Neck: supple, jvd (Minimal), other (Trach in place) Respiratory: No congested cough, No labored breathing, No wheezing Cardiovascular: regular rate and rhythm; No edema Gastrointestinal: soft, non-tender, other (PEG); No distended, No rebound or guarding Genitourinary - Male: nl penis Musculoskeletal: No nl gait and stance, No joint tenderness Extremities: edema; No calf tenderness, No tenderness Neurological: No nl mental status, No nl speech, No nl strength Skin: rash or lesions (bilat buttock pressure decubitus wounds packed, Lower extremity wounds), ecchymosis; No nl turgor, No diaphoresis Lymph: No nl lymph nodes Results Result Diagram: 05/06/18 0558 05/07/18 0721 AURE ENRIQUEZ NP May 09, 2018 10:57
--- NOTE | 2018-05-09 11:27 | CONS ---
Assessment/Plan Assessment/Plan Hospital Course (Demo Recall) No acute events, s/p low grade temp, urine cx + GNR Antimicrobials: Diflucan Indwelling: Trach PEG Schwartz. Microbiology: sputum culture + Pseudomonas Physical examination: Chronically ill-appearing elderly man who is noncommunicative in no distress. Head atraumatic normocephalic sclera nonicteric neck is supple tracheostomy present chest rise symmetrical breath sounds diminished bases heart: S1-S2. Abdomen soft bowel sounds present. Extremities without cyanosis. Skin: Patient has multiple pressure sores he has a dry blood on the right lower lip Assessment: 1. S/p sepsis secondary to urinary tract infection and HCAP 2. 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 VDRF 3. Dysphagia 4. Chronic encephalopathy 5. History of cardiomyopathy 6. Sacral decub, s/p debridement 04/30/18 7. MRSA nares colonization 8. Elevated amylase and lipase of unclear etiology Plan: Clinically unchanged, will add Cefepime, await for final cx, pending wbc labeled nuclear scan Consultation Date/Type/Reason Admit Date/Time Mar 31, 2018 at 17:58 Initial Consult Date 04/02/18 Type of Consult id Requesting Provider: TAMARA GRAJEDA MD Date/Time of Note DATE: 05/09/18 TIME: 11:26 Exam/Review of Systems Exam Vitals Vital Signs Date Temp Pulse Resp B/P (MAP) Pulse Ox O2 O2 Flow FiO2 Time Delivery Rate 05/09/18 98.6 86 16 106/75 100 11:21 (85) 05/09/18 30 10:58 05/07/18 Trach 15:23 Collar Intake and Output 05/08/18 05/08/18 05/09/18 1515:00 23:00 07:00 IntakeIntake Total 1930 ml 605 ml OutputOutput Total 1900 ml 600 ml BalanceBalance 30 ml 5 ml Results Result Diagram: 05/06/18 0558 05/07/18 0721 Medications Medication Current Medications Collagenase (Santyl) 1 applic DAILY TOP Last administered on 05/09/18at 09:07; Admin Dose 1 APPLIC; Start 04/03/18 at 12:00 Lansoprazole (Prevacid) 30 mg HS PO Last administered on 2/13/19at 21:52; Admin Dose 30 MG; Start 04/20/18 at 21:00 Fluconazole (Diflucan) 100 mg DAILY PO Last administered on 05/09/18 09:07; Admin Dose 100 MG; Start 04/21/18 at 14:00 Albuterol (Proventil 0.083% (Neb)) 2.5 mg Q3H RESP THERAPY PRN NEB WHEEZING AND SOB; Start 04/30/18 at 19:00 Ascorbic Acid (Vitamin C) 500 mg DAILY GTB Last administered on 05/09/18 09:07; Admin Dose 500 MG; Start 05/04/18 at 09:30 Zinc Sulfate (Zinc Sulfate) 220 mg DAILY GTB Last administered on 05/09/18 09:07; Admin Dose 220 MG; Start 05/04/18 at 09:30 Multivit/Ca Carb/ B Cmplx/FA/Prenat (Sofy-Sandoval) 1 tab DAILY GTB Last administered on 05/09/18 09:07; Admin Dose 1 TAB; Start 05/04/18 at 09:30 Acetaminophen (Tylenol Liquid) 650 mg Q4H PRN GTB MILD PAIN(1-3)OR ELEVATED TEMP Last administered on 05/07/18 13:48; Admin Dose 650 MG; Start 05/04/18 at 09:30 Acetaminophen (Tylenol Supp) 650 mg Q6H PRN [place] temp over 101; Start 05/04/18 at 09:30 Polyethylene Glycol (Miralax) 17 gm DAILY PRN GTB constipation; Start 05/04/18 at 16:00 Hydralazine HCl (Apresoline) 5 mg Q6H PRN IV ELEVATED BLOOD PRESSURE; Start 05/04/18 at 22:30 Aspirin (Aspirin) 81 mg DAILY PO Last administered on 05/09/18 09:07; Admin Dose 81 MG; Start 05/05/18 at 15:00 Atorvastatin Calcium (Lipitor) 10 mg HS PO Last administered on 05/08/18 21:52; Admin Dose 10 MG; Start 05/06/18 at 21:00 Sodium Chloride 1,000 ml @ 75 mls/hr [id number] IV Last administered on 05/09/18 06:35; Admin Dose 75 MLS/HR; Start 05/07/18 at 13:30 Cefepime HCl 50 ml @ 100 mls/hr Q12 IVPB ; Start 05/09/18 at 11:30 RENÉ GARCIA NP May 09, 2018 11:27
[2018-05-09] MEDS: CEFEPIME 1GM/50 ML (PMX) 50 ML IVPB SCH ×2 (12:03→21:33)
--- NOTE | 2018-05-09 12:21 | CONS ---
Assessment/Plan Assessment/Plan Assessment/Plan (Daily) 62 male with excessively bleeding gingival tissue and severe anemia 1. Severe acute on chronic anemia likely due to blood loss from gingival bleeding 3. Chronic liver disease, alcohol related 4. Mild coagulopathy 5. Elevated lipase with mildly elevated CA 19-9 -on CT scan pancreas is normal -lipid panel wnl -CBD 6mm, LFT wnl -Radiology will not do MRCP because of vent 6. Chronic kidney disease -BUN/materials planning analyst wnl 7. Encephalopathy secondary to anoxic brain injury -acute on chronic? -Ct shows acute ischemic infarct, pt is on ASA 8. H/o duodenal ulcer 9. Complex UTI with lisa albicans, s/p diflucan -RESOLVED 10. 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 Persistent fevers 12. Abnormal LFTs -liver disease -trending down 13. Acute non hemorrhagic infarcts noted on Brain CT Plan: ERCP on hold for newly found brain infarcts Monitor LFT and WBC Monitor closely for GI bleeding and HH, Continue abx Consultation Date/Type/Reason Admit Date/Time Mar 31, 2018 at 17:58 Initial Consult Date 04/02/18 Requesting Provider: TAMARA GRAJEDA MD Date/Time of Note DATE: 05/09/18 TIME: 12:20 24 HR Interval Summary Subjective hx not possible: pt non-verbal Exam/Review of Systems Exam Vitals Vital Signs Date Temp Pulse Resp B/P (MAP) Pulse Ox O2 O2 Flow FiO2 Time Delivery Rate 05/09/18 98.6 86 16 106/75 100 11:21 (85) 05/09/18 30 10:58 05/07/18 Trach 15:23 Collar Intake and Output 05/08/18 05/08/18 05/09/18 1515:00 23:00 07:00 IntakeIntake Total 1930 ml 605 ml OutputOutput Total 1900 ml 600 ml BalanceBalance 30 ml 5 ml Cardiovascular: regular rate and rhythm Extremities: normal pulses Results Result Diagram: 05/06/18 0558 05/07/18 0721 Medications Medication Current Medications Collagenase (Santyl) 1 applic DAILY TOP Last administered on 05/09/18at 09:07; Admin Dose 1 APPLIC; Start 04/03/18 at 12:00 Lansoprazole (Prevacid) 30 mg HS PO Last administered on 05/08/18at 21:52; Admin Dose 30 MG; Start 04/20/18 at 21:00 Fluconazole (Diflucan) 100 mg DAILY PO Last administered on 05/09/18 09:07; Ad min Dose 100 MG; Start 04/21/18 at 14:00 Albuterol (Proventil 0.083% (Neb)) 2.5 mg Q3H RESP THERAPY PRN NEB WHEEZING AND SOB; Start 04/30/18 at 19:00 Ascorbic Acid (Vitamin C) 500 mg DAILY GTB Last administered on 05/09/18 09:07; Admin Dose 500 MG; Start 05/04/18 at 09:30 Zinc Sulfate (Zinc Sulfate) 220 mg DAILY GTB Last administered on 05/09/18 09:07; Admin Dose 220 MG; Start 05/04/18 at 09:30 Multivit/Ca Carb/ B Cmplx/FA/Prenat (Sofy-Sandoval) 1 tab DAILY GTB Last administered on 05/09/18 09:07; Admin Dose 1 TAB; Start 05/04/18 at 09:30 Acetaminophen (Tylenol Liquid) 650 mg Q4H PRN GTB MILD PAIN(1-3)OR ELEVATED TEMP Last administered on 05/07/18 13:48; Admin Dose 650 MG; Start 05/04/18 at 09:30 Acetaminophen (Tylenol Supp) 650 mg Q6H PRN [place] temp over 101; Start 05/04/18 at 09:30 Polyethylene Glycol (Miralax) 17 gm DAILY PRN GTB constipation; Start 05/04/18 at 16:00 Hydralazine HCl (Apresoline) 5 mg Q6H PRN IV ELEVATED BLOOD PRESSURE; Start 05/04/18 at 22:30 Aspirin (Aspirin) 81 mg DAILY PO Last administered on 05/09/18 09:07; Admin Dose 81 MG; Start 05/05/18 at 15:00 Atorvastatin Calcium (Lipitor) 10 mg HS PO Last administered on 05/08/18 21:52; Admin Dose 10 MG; Start 05/06/18 at 21:00 Sodium Chloride 1,000 ml @ 75 mls/hr [id number] IV Last administered on 05/09/18 06:35; Admin Dose 75 MLS/HR; Start 05/07/18 at 13:30 Cefepime HCl 50 ml @ 100 mls/hr Q12 IVPB Last administered on 05/09/18at 12:03; Admin Dose 100 MLS/HR; Start 05/09/18 at 11:30 RASHEEDA MEJIA MD May 09, 2018 12:21
--- NOTE | 2018-05-09 14:04 | CONS ---
Assessment/Plan Assessment/Plan Hospital Course 62 M c/ Hx of methamphetamine/ETOH abuse c/b cirrhosis and dilated cardiomyopathy... and other comorbidities, admitted for evaluation of gingival bleeding..and fevers.... Neurology is again consulted to evaluate encephalopathy and assess prognosis for meaningful neurologic recovery.. The clinical picture again suggests an acute toxic-metabolic (?on chronic) encephalopathy. Repeat Head CT shows a new R temporal infarction..which may be a contributor.. Recent MRI brain was notable for a subacute cerebellar infarction, though it is limited by motion.. Recent EEG was without epileptiform activity. His prognosis for meaningful neurologic recovery remains guarded. P: Agree w/ asa daily for secondary stroke prevention, as medically able (severe anemia noted...); LDL is at goal... Limit sedating medications where possible PT/OT/ST as able Continued medical management and supportive care per primary Will follow Consultation Date/Type/Reason Admit Date/Time Mar 31, 2018 at 17:58 Type of Consult Neurology Requesting Provider: TAMARA GRAJEDA MD Date/Time of Note DATE: 05/09/18 TIME: 14:04 24 HR Interval Summary Free Text/Dictation Continues telemetry monitoring. No acute events reported. Pt remains unable to contribute at this time. Subjective hx not possible: pt non-verbal Exam Vital Signs Vitals Vital Signs Date Temp Pulse Resp B/P (MAP) Pulse Ox O2 O2 Flow FiO2 Time Delivery Rate 05/09/18 94 23 98 30 13:07 05/09/18 98.6 106/75 11:21 (85) 05/07/18 Trach 15:23 Collar Intake and Output 05/08/18 05/08/18 05/09/18 1515:00 23:00 07:00 IntakeIntake Total 1930 ml 605 ml OutputOutput Total 1900 ml 600 ml BalanceBalance 30 ml 5 ml Exam PE: Gen Appearance: No Apparent Distress HEENT: Trach Cardiovascular: Regular rate Abdomen: Soft Extremities: Dry NE: The patient was lethargic and nonverbal. Cranial nerve examination was limited by mental status. Pupils were equal and reactive to light. There was no afferent pupillary defect. Funduscopic examination was limited. Face was grossly symmetric, w/ present corneal and coug h reflexes. Tone was increased. Muscle bulk was reduced. I did not see fasciculations. The patient withdrew to noxious stimulation x 4..and moved his left arm spontaneously... Coordination and gait testing was limited by mental status. Arm and leg reflexes were symmetric. Maguire's sign was absent. Plantar responses were flexor. ANURAG PRESSLEY NP May 09, 2018 14:04
[2018-05-09] MEDS: SODIUM HYPOCHLORITE (1/40) 1 APPLIC BTL IRR SCH ×2 (14:59→21:34)
--- NOTE | 2018-05-09 17:23 | PN ---
Date/Time of Note Date/Time of Note DATE: 05/09/18 TIME: 17:21 Assessment/Plan VTE Prophylaxis Risk score (from Ns)>0 risk: 9 SCD applied (from Ns): Yes Pharmacological prophylaxis: NA/contraindicated Pharm contraindication: low risk/ambulating Lines/Catheters IV C[facility] Type (from [facility] Peripheral IV Urinary Cath still in place: Yes Reason Cath still needed: urinary retention Assessment/Plan Hospital Course 62 y/o with # Oral gingival bleeding likely due to dentures, seen by ENT s/p endoscopy # Sepsis with Fevers with hx Pneumonia +UTI and ? Pancreatitis +multiple wounds, ucx+ lisa, wound cx+ MRSA/ pseudomonas, +resp culture +pseudomonas # Blood loss anemia due to oral gingival bleeding # VDRF # CKD with worsening renal failure>resolved # Metabolic acidosis #DILATED CARDIOMYOPATHY # HX ALCOHOL ABUSE # Multiple wounds > decub # Pancreatitis with elevated Lipase # Enterocoltiis on CT # AMS due to Metabolic encephalopathy with . Possible subacute infarct in the left cerebellar hemisphere and cerebellar peduncle> much improved> now again AMS? encephalopathy> now with new stroke on 05/05/18 #Ongoing fevers likely secondary to UTI/hcap now improved> again with fevers> +psedomonas in sputum has again gram-negative in the urine Plan - cw asa/statin --Started on cefepime/flconazole - iv fludis for hypotension - WBC scan - fu neuro recs - ERCP cancelled due to new stroke - Family meeting discussed goals of care, again with Dr. Anthony - GI prophylaxsis - monitor oral bleeding - labs am - PT/OT/Speech Result Diagram: 05/06/18 0558 05/07/18 0721 Subjective 24 Hr Interval Summary Free Text/Dictation Oozing noted from the mouth in the a.m. now is resolved Started on cefepime per ID, u culture again positive Exam/Review of Systems Exam Vitals Vital Signs Date Temp Pulse Resp B/P (MAP) Pulse Ox O2 O2 Flow FiO2 Time Delivery Rate 05/09/18 92 26 99 30 16:41 05/09/18 98.7 124/89 15:43 (101) 05/07/18 Trach 15:23 Collar Intake and Output 05/08/18 05/08/18 05/09/18 1515:00 23:00 07:00 IntakeIntake Total 1930 ml 605 ml OutputOutput Total 1900 ml 600 ml BalanceBalance 30 ml 5 ml Exam Exam Constitutional: non-verbal, respond to painful stimuli, does not follow commands ENMT: other (trach) Neck: supple Respiratory: diminished breath sounds Cardiovascular: regular rate and rhythm Gastrointestinal: soft Does not follow any commands Medications Medication Current Medications Collagenase (Santyl) 1 applic DAILY TOP Last administered on 05/09/18 09:07; Admin Dose 1 APPLIC; Start 04/03/18 at 12:00 Lansoprazole (Prevacid) 30 mg HS PO Last administered on 05/08/18 21:52; Admin Dose 30 MG; Start 04/20/18 at 21:00 Fluconazole (Diflucan) 100 mg DAILY PO Last administered on 05/09/18 09:07; Admin Dose 100 MG; Start 04/21/18 at 14:00 Albuterol (Proventil 0.083% (Neb)) 2.5 mg Q3H RESP THERAPY PRN NEB WHEEZING AND SOB; Start 04/30/18 at 19:00 Ascorbic Acid (Vitamin C) 500 mg DAILY GTB Last administered on 05/09/18 09:07; Admin Dose 500 MG; Start 05/04/18 at 09:30 Zinc Sulfate (Zinc Sulfate) 220 mg DAILY GTB Last administered on 05/09/18 09:07; Admin Dose 220 MG; Start 05/04/18 at 09:30 Multivit/Ca Carb/ B Cmplx/FA/Prenat (Sofy-Sandoval) 1 tab DAILY GTB Last administered on 05/09/18 09:07; Admin Dose 1 TAB; Start 05/04/18 at 09:30 Acetaminophen (Tylenol Liquid) 650 mg Q4H PRN GTB MILD PAIN(1-3)OR ELEVATED TEMP Last administered on 05/07/18 13:48; Admin Dose 650 MG; Start 05/04/18 at 09:30 Acetaminophen (Tylenol Supp) 650 mg Q6H PRN [place] temp over 101; Start 05/04/18 at 09:30 Polyethylene Glycol (Miralax) 17 gm DAILY PRN GTB constipation; Start 05/04/18 at 16:00 Hydralazine HCl (Apresoline) 5 mg Q6H PRN IV ELEVATED BLOOD PRESSURE; Start 05/04/18 at 22:30 Aspirin (Aspirin) 81 mg DAILY PO Last administered on 05/09/18 09:07; Admin Dose 81 MG; Start 05/05/18 at 15:00 Atorvastatin Calcium (Lipitor) 10 mg HS PO Last administered on 05/08/18 21:52; Admin Dose 10 MG; Start 05/06/18 at 21:00 Sodium Chloride 1,000 ml @ 75 mls/hr [id number] IV Last administered on 05/09/18 06:35; Admin Dose 75 MLS/HR; Start 05/07/18 at 13:30 Cefepime HCl 50 ml @ 100 mls/hr Q12 IVPB Last administered on 05/09/18 12:03; Admin Dose 100 MLS/HR; Start 05/09/18 at 11:30 Sodium Hypochlorite (Dakin'S (Dilute 140)) 1 applic BID IRR Last administered on 05/09/18 14:59; Admin Dose 1 APPLIC; Start 05/09/18 at 15:00 TAMARA GRAJEDA MD May 09, 2018 17:23
[2018-05-09] MEDS ORDERED: SODIUM HYPOCHLORITE (1/40) 1 APPLIC BTL IRR SCH (21:00)
[2018-05-09] MEDS: LANSOPRAZOLE 30 MG CAP PO SCH (21:34)
[2018-05-09] MEDS: ATORVASTATIN 10 MG TAB PO SCH (21:34)
[2018-05-10] VITALS (24 sets, daily range): BP systolic 108–162; BP diastolic 72–103; PULSE 90–102; RESP 20–32
--- NOTE | 2018-05-10 08:15 | CONS ---
Assessment/Plan Assessment/Plan Assessment/Plan (Daily) Discussion with family members 2 brothers with patient and son. Patient's is out of town. Overall agreement amongst first and second-degree family members are to discontinue with this level of care and allow patient to comfortable end of life with a compassionate extubation without any further suffering. However she his spouse is out of town for the next 5 years days and family members assured me that there will try and contact her as they have been given permission to make summary decision on patient's behalf. Patient remains neurologically unchanged, and I have told family members that he has had numerous strokes sometimes simply after his hip replacement. In the event that patient's does not give permission for comfort care I would discuss transfer to [place] with Dr. Orona. Consultation Date/Type/Reason Admit Date/Time Mar 31, 2018 at 17:58 Date/Time of Note DATE: 05/10/18 TIME: 08:12 Past Medical History Medical History: congestive heart failure, diabetes, GERD, hepatitis, pancreatitis, peptic ulcer disease, renal disease, urinary tract infection Home Meds Reported Medications Cran/Vitc/Mannose/Inulin/Brom (Uti-Stat Liquid) 3,875 Mg/30 Ml Liquid, 3875 MG GTB DAILY 03/31/18 Ascorbic Acid* (Vitamin C*) 500 Mg Capsule.sa, 500 MG GTB DAILY, CAP 03/31/18 Zinc Sulfate* (Zinc Sulfate*) 220 Mg Tablet, 220 MG GTB DAILY, TAB 03/31/18 Acetaminophen* (Acetaminophen*) 650 Mg Tablet, 650 MG GTB Q4 PRN for MILD PAIN LEVEL 1-3, #30 TAB AND FEVER 03/31/18 Acetaminophen* (Acetaminophen*) 500 MG Extra Strength Tablet, 1000 MG GTB Q4 PRN for MODERATE PAIN LEVEL 4-6, TAB 03/31/18 Acetaminophen* (Acetaminophen*) 325 Mg Tablet, 650 MG GTB TRACH CHANGE PRN for PAIN, #30 TAB GIVE 30 MIN PRIOR TO CHANGE 03/31/18 Spironolactone* (Aldactone*) 25 Mg Tablet, 25 MG GTB DAILY, #30 TAB 03/31/18 Multivit/Ca Carb/B Cmplx/Fa* (Sofy-Sandoval*) 1 Tab Tab, 1 TAB GTB DAILY, TAB 03/31/18 Hydrocodone/Acetaminophen (Osborne 5-325 Tablet) 1 Each Tablet, 1 EACH GTB BID, TAB 03/31/18 Midodrine* (Midodrine*) 5 Mg Tablet, 5 MG GTB BID, TAB HOLD FOR SBP ABOVE 110 03/31/18 Na Phos,M-B/Na Phos,Di-Ba (ENEMA [id number]) 133 Ml Enema, 133 ML RC EVERY TWO DAYS PRN for CONSTIPATION, ENEMA 03/31/18 Bisacodyl (Dulcolax) 10 Mg Supp.rect, 10 MG RC DAILY PRN for CONSTIPATION, SUPP.RECT 03/31/18 Carvedilol* (Carvedilol*) 25 Mg Tablet, 25 MG GTB BID, #60 TAB HOLD FOR SBP BELOW 100 OR HR BELOW 50 03/31/18 Albuterol Sulfate* (Albuterol Sulfate* Neb) 0.083%-3 Ml Neb, 2.5 MG NEB Q6 PRN for WHEEZING AND SOB, #30 VIAL 03/31/18 Albuterol Sulfate* (Albuterol Sulfate* Neb) 0.083%-3 Ml Neb, 2.5 MG NEB Q3H PRN for WHEEZING AND SOB, #30 VIAL 03/31/18 Lactobacillus Acidophilus/Pect (Acidophilus-Pectin Capsule) 1 Each Capsule, 1 EACH GTB DAILY, CAP 03/31/18 Medications Current Medications Collagenase (Santyl) 1 applic DAILY TOP Last administered on 05/09/18at 09:07; Admin Dose 1 APPLIC; Start 04/03/18 at 12:00 Lansoprazole (Prevacid) 30 mg HS PO Last administered on 05/09/18at 21:34; Admin Dose 30 MG; Start 04/20/18 at 21:00 Fluconazole (Diflucan) 100 mg DAILY PO Last administered on 05/09/18at 09:07; Admin Dose 100 MG; Start 04/21/18 at 14:00 Albuterol (Proventil 0.083% (Neb)) 2.5 mg Q3H RESP THERAPY PRN NEB WHEEZING AND SOB; Start 04/30/18 at 19:00 Ascorbic Acid (Vitamin C) 500 mg DAILY GTB Last administered on 05/09/18at 09:07; Admin Dose 500 MG; Start 05/04/18 at 09:30 Zinc Sulfate (Zinc Sulfate) 220 mg DAILY GTB Last administered on 05/09/18 09:07; Admin Dose 220 MG; Start 05/04/18 at 09:30 Multivit/Ca Carb/ B Cmplx/FA/Prenat (Sofy-Sandoval) 1 tab DAILY GTB Last administered on 05/09/18 09:07; Admin Dose 1 TAB; Start 05/04/18 at 09:30 Acetaminophen (Tylenol Liquid) 650 mg Q4H PRN GTB MILD PAIN(1-3)OR ELEVATED TEMP Last administered on 05/07/18 13:48; Admin Dose 650 MG; Start 05/04/18 at 09:30 Acetaminophen (Tylenol Supp) 650 mg Q6H PRN [place] temp over 101; Start 05/04/18 at 09:30 Polyethylene Glycol (Miralax) 17 gm DAILY PRN GTB constipation; Start 05/04/18 at 16:00 Hydralazine HCl (Apresoline) 5 mg Q6H PRN IV ELEVATED BLOOD PRESSURE; Start 05/04/18 at 22:30 Aspirin (Aspirin) 81 mg DAILY PO Last administered on 05/09/18 09:07; Admin Dose 81 MG; Start 05/05/18 at 15:00 Atorvastatin Calcium (Lipitor) 10 mg HS PO Last administered on 05/09/18 21:34; Admin Dose 10 MG; Start 05/06/18 at 21:00 Sodium Chloride 1,000 ml @ 75 mls/hr [id number] IV Last administered on 05/09/18 21:34; Admin Dose 75 MLS/HR; Start 05/07/18 at 13:30 Cefepime HCl 50 ml @ 100 mls/hr Q12 IVPB Last administered on 05/09/18 21:33; Admin Dose 100 MLS/HR; Start 05/09/18 at 11:30 Sodium Hypochlorite (Dakin'S (Dilute )) 1 applic BID IRR Last administered on 05/09/18 21:34; Admin Dose 1 APPLIC; Start 05/09/18 at 15:00 Allergies: Coded Allergies: No Known Allergy (Unverified , 04/30/18) Past Surgical History Past Surgical Hx: other (Known) Social History Alcohol Use: occasionally Smoking Status: Unknown if ever smoked Exam/Review of Systems Exam Vitals Vital Signs Date Temp Pulse Resp B/P (MAP) Pulse Ox O2 O2 Flow FiO2 Time Delivery Rate 05/10/18 98.0 100 25 139/90 100 07:45 (106) 05/10/18 30 05:19 05/07/18 Trach 15:23 Collar Intake and Output 05/09/18 05/09/18 05/10/18 1515:00 23:00 07:00 IntakeIntake Total 465 ml 670 ml OutputOutput Total 850 ml 900 ml BalanceBalance -385 ml -230 ml Results Result Diagram: 05/06/18 0558 05/07/18 0721 Medications Medication Current Medications Collagenase (Santyl) 1 applic DAILY TOP Last administered on 05/09/18 09:07; Admin Dose 1 APPLIC; Start 04/03/18 at 12:00 Lansoprazole (Prevacid) 30 mg HS PO Last administered on 05/09/18 21:34; Admin Dose 30 MG; Start 04/20/18 at 21:00 Fluconazole (Diflucan) 100 mg DAILY PO Last administered on 05/09/18 09:07; Admin Dose 100 MG; Start 04/21/18 at 14:00 Albuterol (Proventil 0.083% (Neb)) 2.5 mg Q3H RESP THERAPY PRN NEB WHEEZING AND SOB; Start 04/30/18 at 19:00 Ascorbic Acid (Vitamin C) 500 mg DAILY GTB Last administered on 05/09/18 09:07; Admin Dose 500 MG; Start 05/04/18 at 09:30 Zinc Sulfate (Zinc Sulfate) 220 mg DAILY GTB Last administered on 05/09/18 09:07; Admin Dose 220 MG; Start 05/04/18 at 09:30 Multivit/Ca Carb/ B Cmplx/FA/Prenat (Sofy-Sandoval) 1 tab DAILY GTB Last administered on 05/09/18 09:07; Admin Dose 1 TAB; Start 05/04/18 at 09:30 Acetaminophen (Tylenol Liquid) 650 mg Q4H PRN GTB MILD PAIN(1-3)OR ELEVATED TEMP Last administered on 05/07/18 13:48; Admin Dose 650 MG; Start 05/04/18 at 09:30 Acetaminophen (Tylenol Supp) 650 mg Q6H PRN [place] temp over 101; Start 05/04/18 at 09:30 Polyethylene Glycol (Miralax) 17 gm DAILY PRN GTB constipation; Start 05/04/18 at 16:00 Hydralazine HCl (Apresoline) 5 mg Q6H PRN IV ELEVATED BLOOD PRESSURE; Start 05/04/18 at 22:30 Aspirin (Aspirin) 81 mg DAILY PO Last administered on 05/09/18at 09:07; Admin Dose 81 MG; Start 05/05/18 at 15:00 Atorvastatin Calcium (Lipitor) 10 mg HS PO Last administered on 05/09/18at 21:34; Admin Dose 10 MG; Start 05/06/18 at 21:00 Sodium Chloride 1,000 ml @ 75 mls/hr [id number] IV Last administered on 05/09/18 21:34; Admin Dose 75 MLS/HR; Start 05/07/18 at 13:30 Cefepime HCl 50 ml @ 100 mls/hr Q12 IVPB Last administered on 05/09/18at 21:33; Admin Dose 100 MLS/HR; Start 05/09/18 at 11:30 Sodium Hypochlorite (Dakin'S (Dilute 40)) 1 applic BID IRR Last administered on 05/09/18at 21:34; Admin Dose 1 APPLIC; Start 05/09/18 at 15:00 DASH ESCALANTE May 10, 2018 08:15
--- NOTE | 2018-05-10 08:45 | PN ---
Date/Time of Note Date/Time of Note DATE: 05/10/18 TIME: 08:41 Assessment/Plan Lines/Catheters IV Catheter Type (from Nrs): Peripheral IV Schwartz in Place (from Nrs): Yes Assessment/Plan Chief Complaint/Hosp Course 1. Decubitus pressure ulcers with necrosis s/p exc milena 04/30 -cont Local care -Offload -Nutritional optimization -Vitamin C -Short-term zinc -further debridement prn if family chooses to continue with present level of care 2. Functional quadriplegia with history of stroke secondary to drug and alcohol abuse, chronic encephalopathy with acute nonhemorrhagic infarcts seen on recent ct -per neuro -Medical optimization as above -pending final decision re goals of care 3. Poor quality of life -s/p family meeting >pending final decision re goals of care 4. Chronic renal disease -Judicious fluid management -Minimize nephrotoxic agents if possible 5. Dysphagia on tube feeds 6. Anemia -Monitor 7. Ventilator dependent respiratory failure -Ventilator management and pulmonary toilet 8. Abnormal lipase and ca19-9 s/p ercp 04/30 with stricture and sphincterotomy -repeat ercp per gi held 04/27 acute strokes -trend 9. Dilated cardiomyopathy with congestive heart failure and coronary artery disease with history of hypertension -Cardiac optimization -Judicious fluid management -Electrolyte optimization Thank you. Patient seen and examined in collaboration with Dr. Chet Melvin. Subjective 24 Hr Interval Summary S/p family meeting yesterday. Awaiting patient's for final decision regarding level of care. Intermittent tachycardia/tachypnea. Appears comfortable. Nonverbal indicators of pain not present. No fevers, congested cough, vomiting, diarrhea, sz, rash, wound drainage/odor. Exam/Review of Systems Vital Signs Vitals Vital Signs Date Temp Pulse Resp B/P (MAP) Pulse Ox O2 O2 Flow FiO2 Time Delivery Rate 05/10/18 98.0 100 25 139/90 100 07:45 (106) 05/10/18 30 05:19 05/07/18 Trach 15:23 Collar Intake and Output 05/09/18 05/09/18 05/10/18 1515:00 23:00 07:00 IntakeIntake Total 465 ml 670 ml OutputOutput Total 850 ml 900 ml BalanceBalance -385 ml -230 ml Exam Free Text/Dictation Constitutional: No alert, No oriented Psych: confusion; No nl mood/affect Head: normocephalic Eyes: nl conjunctiva, PERRL; No icteric ENMT: nl lips & teeth, mucosa pink and dry, Neck: supple, jvd (Minimal), other (Trach in place) Respiratory: No congested cough, No labored breathing, No wheezing Cardiovascular: regular rate and rhythm; No edema Gastrointestinal: soft, non-tender, other (PEG); No distended, No rebound or guarding Genitourinary - Male: nl penis Musculoskeletal: No nl gait and stance, No joint tenderness Extremities: edema; No calf tenderness, No tenderness Neurological: No nl mental status, No nl speech, No nl strength Skin: rash or lesions (bilat buttock pressure decubitus wounds min debris/slough, granulating; Lower extremity wounds), ecchymosis; No nl turgor, No diaphoresis Lymph: No nl lymph nodes Results Result Diagram: 05/10/18 0753 05/07/18 0721 AURE ENRIQUEZ NP May 10, 2018 08:45
[2018-05-10] MEDS: COLLAGENASE 5 GM (UD JAR) TOP SCH (09:40)
[2018-05-10] MEDS: ASPIRIN 81 MG TAB PO SCH (09:40)
[2018-05-10] MEDS: FLUCONAZOLE 100 MG TAB PO SCH (09:40)
[2018-05-10] MEDS: CEFEPIME 1GM/50 ML (PMX) 50 ML IVPB SCH (09:40)
[2018-05-10] MEDS: MULTIVIT/CA CARB/B CMPLX/FA TAB GTB SCH (09:40)
[2018-05-10] MEDS: ZINC SULFATE 220 MG CAP GTB SCH (09:40)
[2018-05-10] MEDS: ASCORBIC ACID 500 MG TAB GTB SCH (09:40)
[2018-05-10] MEDS: SOD CHLORIDE 0.9% 1,000 ML IV SCH ×2 (09:40→22:15)
[2018-05-10] MEDS: BALSAM PERU/CASTOR OIL 60 GM TUBE TOP SCH ×2 (09:41→21:00)
[2018-05-10] MEDS: SODIUM HYPOCHLORITE (1/40) 1 APPLIC BTL IRR SCH ×2 (09:41→21:54)
--- NOTE | 2018-05-10 11:02 | CONS ---
Assessment/Plan Assessment/Plan Hospital Course (Demo Recall) No acute events, looks comfortable, urine cx + PSA Antimicrobials: Diflucan Indwelling: Trach PEG Schwartz. Microbiology: sputum culture + Pseudomonas Physical examination: Chronically ill-appearing elderly man who is noncommunicative in no distress. Head atraumatic normocephalic sclera nonicteric neck is supple tracheostomy present chest rise symmetrical breath sounds diminished bases heart: S1-S2. Abdomen soft bowel sounds present. Extremities without cyanosis. Skin: Patient has multiple pressure sores he has a dry blood on the right lower lip Assessment: 1. S/p sepsis secondary to urinary tract infection and HCAP 2. 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 VDRF 3. Dysphagia 4. Chronic encephalopathy 5. History of cardiomyopathy 6. Sacral decub, s/p debridement 04/30/18 7. MRSA nares colonization 8. Elevated amylase and lipase of unclear etiology Plan: Clinically unchanged, wbc labeled nuclear scan negative, change abx to Amikacin ==> short course for mild UTI Consultation Date/Type/Reason Admit Date/Time Mar 31, 2018 at 17:58 Initial Consult Date 04/02/18 Type of Consult id Requesting Provider: TAMARA GRAJEDA MD Date/Time of Note DATE: 05/10/18 TIME: 11:00 Exam/Review of Systems Exam Vitals Vital Signs Date Temp Pulse Resp B/P (MAP) Pulse Ox O2 O2 Flow FiO2 Time Delivery Rate 05/10/18 105 29 100 30 09:50 05/10/18 98.0 139/90 07:45 (106) 05/07/18 Trach 15:23 Collar Intake and Output 05/09/18 05/09/18 05/10/18 1515:00 23:00 07:00 IntakeIntake Total 465 ml 670 ml OutputOutput Total 850 ml 900 ml BalanceBalance -385 ml -230 ml Results Result Diagram: 05/10/18 0753 05/10/18 0724 Results 24hrs Laboratory Tests Test 05/10/18 07:24 05/10/18 07:32 05/10/18 07:53 Sodium Level 139 Potassium Level 4.0 Chloride Level 115 H Carbon Dioxide Level 17 L Anion Gap 7 Blood Urea Nitrogen 29 H Creatinine 0.78 Est Glomerular Filtrat Rate mL/min > 60 Glucose Level 102 Calcium Level 8.4 Phosphorus Level 2.5 Magnesium Level 1.9 White Blood Count 6.8 Red Blood Count 2.58 L Hemoglobin 7.3 L Hematocrit 22.7 L Mean Corpuscular Volume 88.0 Mean Corpuscular Hemoglobin 28.3 L Mean Corpuscular Hemoglobin Concent 32.2 Red Cell Distribution Width 15.9 H Platelet Count 199 Mean Platelet Volume 10.5 H Immature Granulocytes % 0.700 H Neutrophils % 77.8 H Lymphocytes % 7.9 L Monocytes % 10.0 Eosinophils % 3.2 Basophils % 0.4 Nucleated Red Blood Cells % 0.0 Immature Granulocytes # 0.050 H Neutrophils # 5.3 Lymphocytes # 0.5 L Monocytes # 0.7 Eosinophils # 0.2 Basophils # 0.0 Nucleated Red Blood Cells # 0.0 Medications Medication Current Medications Collagenase (Santyl) 1 applic DAILY TOP Last administered on 05/10/18 09:40; Admin Dose 1 APPLIC; Start 04/03/18 at 12:00 Lansoprazole (Prevacid) 30 mg HS PO Last administered on 05/09/18 21:34; Admin Dose 30 MG; Start 04/20/18 at 21:00 Fluconazole (Diflucan) 100 mg DAILY PO Last administered on 05/10/18 09:40; Admin Dose 100 MG; Start 04/21/18 at 14:00 Albuterol (Proventil 0.083% (Neb)) 2.5 mg Q3H RESP THERAPY PRN NEB WHEEZING AND SOB; Start 04/30/18 at 19:00 Ascorbic Acid (Vitamin C) 500 mg DAILY GTB Last administered on 05/10/18 09:40; Admin Dose 500 MG; Start 05/04/18 at 09:30 Zinc Sulfate (Zinc Sulfate) 220 mg DAILY GTB Last administered on 05/10/18 09 :40; Admin Dose 220 MG; Start 05/04/18 at 09:30 Multivit/Ca Carb/ B Cmplx/FA/Prenat (Sofy-Sandoval) 1 tab DAILY GTB Last administered on 05/10/18 09:40; Admin Dose 1 TAB; Start 05/04/18 at 09:30 Acetaminophen (Tylenol Liquid) 650 mg Q4H PRN GTB MILD PAIN(1-3)OR ELEVATED TEMP Last administered on 05/07/18 13:48; Admin Dose 650 MG; Start 05/04/18 at 09:30 Acetaminophen (Tylenol Supp) 650 mg Q6H PRN [place] temp over 101; Start 05/04/18 at 09:30 Polyethylene Glycol (Miralax) 17 gm DAILY PRN GTB constipation; Start 05/04/18 at 16:00 Hydralazine HCl (Apresoline) 5 mg Q6H PRN IV ELEVATED BLOOD PRESSURE; Start 05/04/18 at 22:30 Aspirin (Aspirin) 81 mg DAILY PO Last administered on 05/10/18 09:40; Admin D ose 81 MG; Start 05/05/18 at 15:00 Atorvastatin Calcium (Lipitor) 10 mg HS PO Last administered on 05/09/18 21:34; Admin Dose 10 MG; Start 05/06/18 at 21:00 Sodium Chloride 1,000 ml @ 75 mls/hr [id number] IV Last administered on 05/10/18 09:40; Admin Dose 75 MLS/HR; Start 05/07/18 at 13:30 Cefepime HCl 50 ml @ 100 mls/hr Q12 IVPB Last administered on 05/10/18 09:40; Admin Dose 100 MLS/HR; Start 05/09/18 at 11:30 Sodium Hypochlorite (Dakin'S (Dilute )) 1 applic BID IRR Last administered on 05/10/18 09:41; Admin Dose 1 APPLIC; Start 05/09/18 at 15:00 RENÉ GARCIA NP May 10, 2018 11:02
--- NOTE | 2018-05-10 11:47 | CONS ---
Assessment/Plan Assessment/Plan Assessment/Plan (Daily) Assessment/Plan (Daily) 62 male with excessively bleeding gingival tissue and severe anemia 1. Severe acute on chronic anemia likely due to blood loss from gingival bleeding 3. Chronic liver disease, alcohol related 4. Mild coagulopathy 5. Elevated lipase with mildly elevated CA 19-9 -on CT scan pancreas is normal -lipid panel wnl -CBD 6mm, LFT wnl -Radiology will not do MRCP because of vent 6. 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 Encephalopathy secondary to anoxic brain injury -acute on chronic? -Ct shows acute ischemic infarct, pt is on ASA 8. H/o duodenal ulcer 9. Complex UTI with lisa albicans, s/p diflucan -RESOLVED 10. 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 Persistent fevers 12. Abnormal LFTs -liver disease -trending down 13. Acute non hemorrhagic infarcts noted on Brain CT Plan: ERCP on hold for newly found brain infarcts Monitor LFT and WBC Monitor closely for GI bleeding and HH, at this point there is no evidence of active GI bleeding Patient's WBC scan is negative Transfuse 1 unit of packed cell RBC Consultation Date/Type/Reason Admit Date/Time Mar 31, 2018 at 17:58 Initial Consult Date 04/02/18 Requesting Provider: TAMARA GRAJEDA MD Date/Time of Note DATE: 05/10/18 TIME: 11:46 24 HR Interval Summary Subjective hx not possible: pt non-verbal Constitutional: disoriented Exam/Review of Systems Exam Vitals Vital Signs Date Temp Pulse Resp B/P (MAP) Pulse Ox O2 O2 Flow FiO2 Time Delivery Rate 05/10/18 98.0 94 25 108/79 100 11:37 (89) 05/10/18 30 11:10 05/07/18 Trach 15:23 Collar Intake and Output 05/09/18 05/09/18 05/10/18 1414:59 22:59 06:59 IntakeIntake Total 465 ml 670 ml OutputOutput Total 850 ml 900 ml BalanceBalance -385 ml -230 ml Respiratory: diminished breath sounds Cardiovascular: regular rate and rhythm, nl pulses Gastrointestinal: soft, nl liver, spleen, non-tender Extremities: normal pulses Results Result Diagram: 05/10/18 0753 05/10/18 0724 Results 24hrs Laboratory Tests Test 05/10/18 07:24 05/10/18 07:32 05/10/18 07:53 Sodium Level 139 Potassium Level 4.0 Chloride Level 115 H Carbon Dioxide Level 17 L Anion Gap 7 Blood Urea Nitrogen 29 H Creatinine 0.78 Est Glomerular Filtrat Rate mL/min > 60 Glucose Level 102 Calcium Level 8.4 Phosphorus Level 2.5 Magnesium Level 1.9 White Blood Count 6.8 Red Blood Count 2.58 L Hemoglobin 7.3 L Hematocrit 22.7 L Mean Corpuscular Volume 88.0 Mean Corpuscular Hemoglobin 28.3 L Mean Corpuscular Hemoglobin Concent 32.2 Red Cell Distribution Width 15.9 H Platelet Count 199 Mean Platelet Volume 10.5 H Immature Granulocytes % 0.700 H Neutrophils % 77.8 H Lymphocytes % 7.9 L Monocytes % 10.0 Eosinophils % 3.2 Basophils % 0.4 Nucleated Red Blood Cells % 0.0 Immature Granulocytes # 0.050 H Neutrophils # 5.3 Lymphocytes # 0.5 L Monocytes # 0.7 Eosinophils # 0.2 Basophils # 0.0 Nucleated Red Blood Cells # 0.0 Medications Medication Current Medications Collagenase (Santyl) 1 applic DAILY TOP Last administered on 05/10/18 09:40; Admin Dose 1 APPLIC; Start 04/03/18 at 12:00 Lansoprazole (Prevacid) 30 mg HS PO Last administered on 05/09/18 21:34; Admin Dose 30 MG; Start 04/20/18 at 21:00 Fluconazole (Diflucan) 100 mg DAILY PO Last administered on 05/10/18 09:40; Admin Dose 100 MG; Start 04/21/18 at 14:00 Albuterol (Proventil 0.083% (Neb)) 2.5 mg Q3H RESP THERAPY PRN NEB WHEEZING AND SOB; Start 04/30/18 at 19:00 Ascorbic Acid (Vitamin C) 500 mg DAILY GTB Last administered on 05/10/18 09:40; Admin Dose 500 MG; Start 05/04/18 at 09:30 Zinc Sulfate (Zinc Sulfate) 220 mg DAILY GTB Last administered on 05/10/18 09:40; Admin Dose 220 MG; Start 05/04/18 at 09:30 Multivit/Ca Carb/ B Cmplx/FA/Prenat (Sofy-Sandoval) 1 tab DAILY GTB Last administered on 05/10/18 09:40; Admin Dose 1 TAB; Start 05/04/18 at 09:30 Acetaminophen (Tylenol Liquid) 650 mg Q4H PRN GTB MILD PAIN(1-3)OR ELEVATED TEMP Last administered on 05/07/18 13:48; Admin Dose 650 MG; Start 05/04/18 at 09:30 Acetaminophen (Tylenol Supp) 650 mg Q6H PRN [place] temp over 101; Start 05/04/18 at 09:30 Polyethylene Glycol (Miralax) 17 gm DAILY PRN GTB constipation; Start 05/04/18 at 16:00 Hydralazine HCl (Apresoline) 5 mg Q6H PRN IV ELEVATED BLOOD PRESSURE; Start 05/04/18 at 22:30 Aspirin (Aspirin) 81 mg DAILY PO Last administered on 05/10/18 09:40; Admin Dose 81 MG; Start 05/05/18 at 15:00 Atorvastatin Calcium (Lipitor) 10 mg HS PO Last administered on 05/09/18 21:34; Admin Dose 10 MG; Start 05/06/18 at 21:00 Sodium Chloride 1,000 ml @ 75 mls/hr [id number] IV Last administered on 05/10/18 09:40; Admin Dose 75 MLS/HR; Start 05/07/18 at 13:30 Sodium Hypochlorite (Dakin'S (Dilute )) 1 applic BID IRR Last administered on 05/10/18 09:41; Admin Dose 1 APPLIC; Start 05/09/18 at 15:00 Amikacin Sulfate (Amikacin Iv Per Pharmacy) AMIKACIN PER PHARMACY NOTE XX ; Start 05/15/18 at 11:30 RASHEEDA MEJIA MD May 10, 2018 11:47
--- NOTE | 2018-05-10 13:27 | CONS ---
Assessment/Plan Assessment/Plan Hospital Course 62 M c/ Hx of methamphetamine/ETOH abuse c/b cirrhosis and dilated cardiomyopathy... and other comorbidities, admitted for evaluation of gingival bleeding..and fevers.... Neurology is again consulted to evaluate encephalopathy and assess prognosis for meaningful neurologic recovery.. The clinical picture again suggests an acute toxic-metabolic (?on chronic) encephalopathy. Repeat Head CT shows a new R temporal infarction..which may be a contributor.. Recent MRI brain was notable for a subacute cerebellar infarction, though it is limited by motion.. Recent EEG was without epileptiform activity. His prognosis for meaningful neurologic recovery remains guarded. P: Agree w/ asa daily for secondary stroke prevention, as medically able (severe anemia noted...); LDL is at goal... Limit sedating medications where possible PT/OT/ST as able Continued medical management and supportive care per primary Will follow Consultation Date/Type/Reason Admit Date/Time Mar 31, 2018 at 17:58 Type of Consult Neurology Requesting Provider: TAMARA GRAJEDA MD Date/Time of Note DATE: 05/10/18 TIME: 13:27 24 HR Interval Summary Free Text/Dictation Continues telemetry monitoring. No acute events or changes in pt condition reported. Pt remains unable to meaningfully contribute Subjective hx not possible: pt non-verbal Exam Vital Signs Vitals Vital Signs Date Temp Pulse Resp B/P (MAP) Pulse Ox O2 O2 Flow FiO2 Time Delivery Rate 05/10/18 101 13:26 05/10/18 98.0 25 108/79 100 11:37 (89) 05/10/18 30 11:10 05/07/18 Trach 15:23 Collar Intake and Output 05/09/18 05/09/18 05/10/18 1515:00 23:00 07:00 IntakeIntake Total 465 ml 670 ml OutputOutput Total 850 ml 900 ml BalanceBalance -385 ml -230 ml Exam PE: Gen Appearance: No Apparent Distress HEENT: Trach Cardiovascular: Regular rate Abdomen: Soft Extremities: Dry NE: The patient was lethargic and nonverbal. Cranial nerve examination was limited by mental status. Pupils were equal and reactive to light. There was no afferent pupillary defect. Funduscopic examination was limited. Face was grossly symmetric, w/ present corneal and cough reflexes. Tone was increased. Muscle bulk was reduced. I did not see fasciculations. The patient withdrew to noxious stimulation x 4..and moved his left arm spontaneously... Coordination and gait testing was limited by mental status. Arm and leg reflexes were symmetric. Maguire's sign was absent. Plantar responses were flexor. ANURAG PRESSLEY NP May 10, 2018 13:27
--- NOTE | 2018-05-10 14:32 | PN ---
Date/Time of Note Date/Time of Note DATE: 05/10/18 TIME: 14:30 Assessment/Plan VTE Prophylaxis Risk score (from [facility]0 risk: 8 SCD applied (from [facility]): Yes Pharmacological prophylaxis: NA/contraindicated Pharm contraindication: anticoag not tolerated Lines/Catheters IV C[facility]ter Type [facility]from [facility] Peripheral IV Urinary Cath still in place: Yes Reason Cath still needed: urinary retention Assessment/Plan Hospital Course # UTI # Oral gingival bleeding likely due to dentures, was seen by ENT s/p endoscopy # Sepsis with Fevers with hx Pneumonia +UTI and ? Pancreatitis +multiple wounds, ucx+ lisa # Blood loss anemia due to #1, resolved # VDRF # CKD , resolved # Metabolic acidosis # DILATED CARDIOMYOPATHY # HX ALCOHOL ABUSE # Multiple wounds > decub # hypomagnesemia # low grade fever. stable today Assessment/Plan - cw asa/statin --c/w on cefepime/fluconazole - iv fluids for hypotension - WBC scan - fu neuro recs - ERCP cancelled due to new stroke - Family meeting discussed goals of care, again with Dr. Anthony - GI prophylaxis - monitor oral bleeding - labs am - PT/OT/Speech Result Diagram: 05/10/18 0753 05/10/18 0724 Results 24hrs Laboratory Tests Test 05/10/18 07:24 05/10/18 07:32 05/10/18 07:53 Sodium Level 139 Potassium Level 4.0 Chloride Level 115 H Carbon Dioxide Level 17 L Anion Gap 7 Blood Urea Nitrogen 29 H Creatinine 0.78 Est Glomerular Filtrat Rate mL/min > 60 Glucose Level 102 Calcium Level 8.4 Phosphorus Level 2.5 Magnesium Level 1.9 White Blood Count 6.8 Red Blood Count 2.58 L Hemoglobin 7.3 L Hematocrit 22.7 L Mean Corpuscular Volume 88.0 Mean Corpuscular Hemoglobin 28.3 L Mean Corpuscular Hemoglobin Concent 32.2 Red Cell Distribution Width 15.9 H Platelet Count 199 Mean Platelet Volume 10.5 H Immature Granulocytes % 0.700 H Neutrophils % 77.8 H Lymphocytes % 7.9 L Monocytes % 10.0 Eosinophils % 3.2 Basophils % 0.4 Nucleated Red Blood Cells % 0.0 Immature Granulocytes # 0.050 H Neutrophils # 5.3 Lymphocytes # 0.5 L Monocytes # 0.7 Eosinophils # 0.2 Basophils # 0.0 Nucleated Red Blood Cells # 0.0 Subjective 24 Hr Interval Summary Subjective hx not possible: pt non-verbal Exam/Review of Systems Exam Vitals Vital Signs Date Temp Pulse Resp B/P (MAP) Pulse Ox O2 O2 Flow FiO2 Time Delivery Rate 05/10/18 101 13:26 05/10/18 23 99 30 13:10 05/10/18 98.0 108/79 11:37 (89) 05/07/18 Trach 15:23 Collar Intake and Output 05/09/18 05/09/18 05/10/18 1515:00 23:00 07:00 IntakeIntake Total 465 ml 670 ml OutputOutput Total 850 ml 900 ml BalanceBalance -385 ml -230 ml Constitutional: frail Head: normocephalic ENMT: other (tracheostomy) Neck: supple Cardiovascular: regular rate and rhythm Musculoskeletal: muscle weakness Results Results 24hrs Laboratory Tests Test 05/10/18 07:24 05/10/18 07:32 05/10/18 07:53 Sodium Level 139 Potassium Level 4.0 Chloride Level 115 H Carbon Dioxide Level 17 L Anion Gap 7 Blood Urea Nitrogen 29 H Creatinine 0.78 Est Glomerular Filtrat Rate mL/min > 60 Glucose Level 102 Calcium Level 8.4 Phosphorus Level 2.5 Magnesium Level 1.9 White Blood Count 6.8 Red Blood Count 2.58 L Hemoglobin 7.3 L Hematocrit 22.7 L Mean Corpuscular Volume 88.0 Mean Corpuscular Hemoglobin 28.3 L Mean Corpuscular Hemoglobin Concent 32.2 Red Cell Distribution Width 15.9 H Platelet Count 199 Mean Platelet Volume 10.5 H Immature Granulocytes % 0.700 H Neutrophils % 77.8 H Lymphocytes % 7.9 L Monocytes % 10.0 Eosinophils % 3.2 Basophils % 0.4 Nucleated Red Blood Cells % 0.0 Immature Granulocytes # 0.050 H Neutrophils # 5.3 Lymphocytes # 0.5 L Monocytes # 0.7 Eosinophils # 0.2 Basophils # 0.0 Nucleated Red Blood Cells # 0.0 Medications Medication Current Medications Collagenase (Santyl) 1 applic DAILY TOP Last administered on 05/10/18at 09:40; Admin Dose 1 APPLIC; Start 04/03/18 at 12:00 Lansoprazole (Prevacid) 30 mg HS PO Last administered on 05/09/18at 21:34; Admin Dose 30 MG; Start 04/20/18 at 21:00 Fluconazole (Diflucan) 100 mg DAILY PO Last administered on 05/10/18 09:40; Admin Dose 100 MG; Start 04/21/18 at 14:00 Albuterol (Proventil 0.083% (Neb)) 2.5 mg Q3H RESP THERAPY PRN NEB WHEEZING AND SOB; Start 04/30/18 at 19:00 Ascorbic Acid (Vitamin C) 500 mg DAILY GTB Last administered on 05/10/18 09:40; Admin Dose 500 MG; Start 05/04/18 at 09:30 Zinc Sulfate (Zinc Sulfate) 220 mg DAILY GTB Last administered on 05/10/18 09:40; Admin Dose 220 MG; Start 05/04/18 at 09:30 Multivit/Ca Carb/ B Cmplx/FA/Prenat (Sofy-Sandoval) 1 tab DAILY GTB Last adm inistered on 05/10/18 09:40; Admin Dose 1 TAB; Start 05/04/18 at 09:30 Acetaminophen (Tylenol Liquid) 650 mg Q4H PRN GTB MILD PAIN(1-3)OR ELEVATED TEMP Last administered on 05/07/18 13:48; Admin Dose 650 MG; Start 05/04/18 at 09:30 Acetaminophen (Tylenol Supp) 650 mg Q6H PRN [place] temp over 101; Start 05/04/18 at 09:30 Polyethylene Glycol (Miralax) 17 gm DAILY PRN GTB constipation; Start 05/04/18 at 16:00 Hydralazine HCl (Apresoline) 5 mg Q6H PRN IV ELEVATED BLOOD PRESSURE; Start 05/04/18 at 22:30 Aspirin (Aspirin) 81 mg DAILY PO Last administered on 05/10/18 09:40; Admin Dose 81 MG; Start 05/05/18 at 15:00 Atorvastatin Calcium (Lipitor) 10 mg HS PO Last administered on 05/09/18 21:34; Admin Dose 10 MG; Start 05/06/18 at 21:00 Sodium Chloride 1,000 ml @ 75 mls/hr [id number] IV Last administered on 05/10/18 09:40; Admin Dose 75 MLS/HR; Start 05/07/18 at 13:30 Sodium Hypochlorite (Dakin'S (Dilute )) 1 applic BID IRR Last administered on 05/10/18at 09:41; Admin Dose 1 APPLIC; Start 05/09/18 at 15:00 Amikacin Sulfate (Amikacin Iv Per Pharmacy) AMIKACIN PER PHARMACY NOTE XX ; Start 05/15/18 at 11:30 Amikacin Sulfate 850 mg/Sodium Chloride 253.4 ml @ 250 mls/hr Q72H IVPB ; Start 05/10/18 at 15:00 LETITIA BLAKELY May 10, 2018 14:32
[2018-05-10] MEDS: SOD CHLORIDE 0.9% IVPB SCH (16:07)
[2018-05-10] MEDS: AMIKACIN IVPB SCH (16:07)
[2018-05-10] MEDS: ATORVASTATIN 10 MG TAB PO SCH (21:54)
[2018-05-10] MEDS: LANSOPRAZOLE 30 MG CAP PO SCH (21:54)
[2018-05-11] VITALS (25 sets, daily range): BP systolic 96–156; BP diastolic 68–106; PULSE 67–116; RESP 16–35
[2018-05-11] MEDS: SOD CHLORIDE 0.9% 1,000 ML IV SCH (01:33)
[2018-05-11] MEDS: ACETAMINOPHEN 650MG/20.3ML CUP GTB PRN ×2 (02:50→20:35)
[2018-05-11] MEDS: COLLAGENASE 5 GM (UD JAR) TOP SCH (09:09)
[2018-05-11] MEDS: MULTIVIT/CA CARB/B CMPLX/FA TAB GTB SCH (09:09)
[2018-05-11] MEDS: ASCORBIC ACID 500 MG TAB GTB SCH (09:09)
[2018-05-11] MEDS: SODIUM HYPOCHLORITE (1/40) 1 APPLIC BTL IRR SCH ×2 (09:09→20:40)
[2018-05-11] MEDS: ZINC SULFATE 220 MG CAP GTB SCH (09:09)
[2018-05-11] MEDS: FLUCONAZOLE 100 MG TAB PO SCH (09:09)
[2018-05-11] MEDS: BALSAM PERU/CASTOR OIL 60 GM TUBE TOP SCH ×2 (09:09→20:40)
[2018-05-11] MEDS: ASPIRIN 81 MG TAB PO SCH (09:09)
--- NOTE | 2018-05-11 10:59 | CONS ---
Assessment/Plan Assessment/Plan Hospital Course 62 M c/ Hx of methamphetamine/ETOH abuse c/b cirrhosis and dilated cardiomyopathy... and other comorbidities, admitted for evaluation of gingival bleeding..and fevers.... Neurology is again consulted to evaluate encephalopathy and assess prognosis for meaningful neurologic recovery.. The clinical picture again suggests an acute toxic-metabolic (?on chronic) encephalopathy. Repeat Head CT shows a new R temporal infarction..which may be a contributor.. Recent MRI brain was notable for a subacute cerebellar infarction, though it is limited by motion.. Recent EEG was without epileptiform activity. His prognosis for meaningful neurologic recovery remains guarded. P: Agree w/ asa daily for secondary stroke prevention, as medically able (severe anemia noted...); LDL is at goal... Limit sedating medications where possible PT/OT/ST as able Continued medical management and supportive care per primary Will follow Consultation Date/Type/Reason Admit Date/Time Mar 31, 2018 at 17:58 Type of Consult Neurology Reason for Consultation encephalopathy; prognosis.. Requesting Provider: TAMARA GRAJEDA MD Date/Time of Note DATE: 05/11/18 TIME: 10:59 24 HR Interval Summary Free Text/Dictation Continues acute care Subjective hx not possible: pt non-verbal Exam Vital Signs Vitals Vital Signs Date Temp Pulse Resp B/P (MAP) Pulse Ox O2 O2 Flow FiO2 Time Delivery Rate 05/11/18 77 21 100 30 09:42 05/11/18 97.7 105/68 Mechanical 08:03 (80) Ventilator Intake and Output 05/10/18 05/10/18 05/11/18 1515:00 23:00 07:00 IntakeIntake Total 993.4 ml 1650 ml OutputOutput Total 1000 ml 1000 ml BalanceBalance -6.6 ml 650 ml Exam Comprehensive completed; stable for prior MANDO PINO May 11, 2018 10:59
--- NOTE | 2018-05-11 13:53 | PN ---
Date/Time of Note Date/Time of Note DATE: 05/11/18 TIME: 13:53 Assessment/Plan VTE Prophylaxis Risk score (from Ns)>0 risk: 5 SCD applied (from Ns): Yes Pharmacological prophylaxis: NA/contraindicated Pharm contraindication: anticoag not tolerated Lines/Catheters IV Catheter Type (from Nrs): Peripheral IV Urinary Cath still in place: Yes Reason Cath still needed: urinary retention Assessment/Plan Hospital Course # UTI # Oral gingival bleeding likely due to dentures, was seen by ENT s/p endoscopy # Sepsis with Fevers with hx Pneumonia +UTI and ? Pancreatitis +multiple wounds, ucx+ lisa # Blood loss anemia due to #1, resolved # VDRF # CKD , resolved # Metabolic acidosis # DILATED CARDIOMYOPATHY # HX ALCOHOL ABUSE # Multiple wounds > decub # hypomagnesemia, esolved # low grade fever. stable today Assessment/Plan -s/p blood transfusion today -oncology consult dr Levi, called - pain medication -cw asa/statin --c/w on cefepime/fluconazole - iv fluids for hypotension - WBC scan - fu neuro recs - ERCP cancelled due to new stroke - Family meeting discussed goals of care, again with Dr. Anthony - GI prophylaxis - monitor oral bleeding - labs am - PT/OT/Speech -DNR Result Diagram: 05/11/18 0611 05/11/18 0611 Results 24hrs Laboratory Tests Test 05/11/18 06:11 White Blood Count 5.9 Red Blood Count 2.40 L Hemoglobin 6.8 *L Hematocrit 21.5 L Mean Corpuscular Volume 89.6 Mean Corpuscular Hemoglobin 28.3 L Mean Corpuscular Hemoglobin Concent 31.6 L Red Cell Distribution Width 16.0 H Platelet Count 180 Mean Platelet Volume 10.5 H Immature Granulocytes % 0.700 H Neutrophils % 76.0 Lymphocytes % 7.7 L Monocytes % 11.4 H Eosinophils % 3.7 Basophils % 0.5 Nucleated Red Blood Cells % 0.0 Immature Granulocytes # 0.040 H Neutrophils # 4.5 Lymphocytes # 0.5 L Monocytes # 0.7 Eosinophils # 0.2 Basophils # 0.0 Nucleated Red Blood Cells # 0.0 Sodium Level 141 Potassium Level 3.5 Chloride Level 117 H Carbon Dioxide Level 16 L Anion Gap 8 Blood Urea Nitrogen 27 H Creatinine 0.73 Est Glomerular Filtrat Rate mL/min > 60 Glucose Level 93 Calcium Level 8.4 Subjective 24 Hr Interval Summary Subjective hx not possible: pt non-verbal Exam/Review of Systems Exam Vitals Vital Signs Date Temp Pulse Resp B/P (MAP) Pulse Ox O2 O2 Flow FiO2 Time Delivery Rate 05/11/18 97.5 67 19 109/75 100 Mechanical 11:42 (86) Ventilator 05/11/18 30 11:35 Intake and Output 05/10/18 05/10/18 05/11/18 1515:00 23:00 07:00 IntakeIntake Total 993.4 ml 1650 ml OutputOutput Total 1000 ml 1000 ml BalanceBalance -6.6 ml 650 ml Constitutional: frail ENMT: other (tracheostomy) Cardiovascular: regular rate and rhythm Gastrointestinal: soft Genitourinary - Male: other (mullins) Results Results 24hrs Laboratory Tests Test 05/11/18 06:11 White Blood Count 5.9 Red Blood Count 2.40 L Hemoglobin 6.8 *L Hematocrit 21.5 L Mean Corpuscular Volume 89.6 Mean Corpuscular Hemoglobin 28.3 L Mean Corpuscular Hemoglobin Concent 31.6 L Red Cell Distribution Width 16.0 H Platelet Count 180 Mean Platelet Volume 10.5 H Immature Granulocytes % 0.700 H Neutrophils % 76.0 Lymphocytes % 7.7 L Monocytes % 11.4 H Eosinophils % 3.7 Basophils % 0.5 Nucleated Red Blood Cells % 0.0 Immature Granulocytes # 0.040 H Neutrophils # 4.5 Lymphocytes # 0.5 L Monocytes # 0.7 Eosinophils # 0.2 Basophils # 0.0 Nucleated Red Blood Cells # 0.0 Sodium Level 141 Potassium Level 3.5 Chloride Level 117 H Carbon Dioxide Level 16 L Anion Gap 8 Blood Urea Nitrogen 27 H Creatinine 0.73 Est Glomerular Filtrat Rate mL/min > 60 Glucose Level 93 Calcium Level 8.4 Medications Medication Current Medications Collagenase (Santyl) 1 applic DAILY TOP Last administered on 05/11/18at 09:09; Admin Dose 1 APPLIC; Start 04/03/18 at 12:00 Lansoprazole (Prevacid) 30 mg HS PO Last administered on 05/10/18at 21:54; Admin Dose 30 MG; Start 04/20/18 at 21:00 Fluconazole (Diflucan) 100 mg DAILY PO Last administered on 05/11/18at 09:09; Admin Dose 100 MG; Start 04/21/18 at 14:00 Albuterol (Proventil 0.083% (Neb)) 2.5 mg Q3H RESP THERAPY PRN NEB WHEEZING AND SOB; Start 04/30/18 at 19:00 Ascorbic Acid (Vitamin C) 500 mg DAILY GTB Last administered on 05/11/18 09:09; Admin Dose 500 MG; Start 05/04/18 at 09:30 Zinc Sulfate (Zinc Sulfate) 220 mg DAILY GTB Last administered on 05/11/18 09:09; Admin Dose 220 MG; Start 05/04/18 at 09:30 Multivit/Ca Carb/ B Cmplx/FA/Prenat (Sofy-Sandoval) 1 tab DAILY GTB Last administered on 05/11/18 09:09; Admin Dose 1 TAB; Start 05/04/18 at 09:30 Acetaminophen (Tylenol Liquid) 650 mg Q4H PRN GTB MILD PAIN(1-3)OR ELEVATED TEMP Last administered on 05/11/18 02:50; Admin Dose 650 MG; Start 05/04/18 at 09:30 Acetaminophen (Tylenol Supp) 650 mg Q6H PRN [place] temp over 101; Start 05/04/18 at 09:30 Polyethylene Glycol (Miralax) 17 gm DAILY PRN GTB constipation; Start 05/04/18 at 16:00 Hydralazine HCl (Apresoline) 5 mg Q6H PRN IV ELEVATED BLOOD PRESSURE; Start 05/04/18 at 22:30 Aspirin (Aspirin) 81 mg DAILY PO Last administered on 05/11/18 09:09; Admin Dose 81 MG; Start 05/05/18 at 15:00 Atorvastatin Calcium (Lipitor) 10 mg HS PO Last administered on 05/10/18 21:54; Admin Dose 10 MG; Start 05/06/18 at 21:00 Sodium Chloride 1,000 ml @ 75 mls/hr [id number] IV Last administered on 05/11/18 01:33; Admin Dose 75 MLS/HR; Start 05/07/18 at 13:30 Sodium Hypochlorite (Dakin'S (Dilute 40)) 1 applic BID IRR Last administered on 05/11/18 09:09; Admin Dose 1 APPLIC; Start 05/09/18 at 15:00 Amikacin Sulfate (Amikacin Iv Per Pharmacy) AMIKACIN PER PHARMACY NOTE XX ; Start 05/15/18 at 11:30 Amikacin Sulfate 850 mg/Sodium Chloride 253.4 ml @ 250 mls/hr Q72H IVPB Last administered on 05/10/18at 16:07; Admin Dose 250 MLS/HR; Start 05/10/18 at 15:00 LETITIA BLAKELY May 11, 2018 13:53
--- NOTE | 2018-05-11 14:33 | CONS ---
Assessment/Plan Assessment/Plan Assessment/Plan (Daily) Assessment/Plan (Daily) 62 male with excessively bleeding gingival tissue and severe anemia 1. Severe acute on chronic anemia likely due to blood loss from gingival bleeding 3. Chronic liver disease, alcohol related 4. Mild coagulopathy 5. Elevated lipase with mildly elevated CA 19-9 -on CT scan pancreas is normal -lipid panel wnl -CBD 6mm, LFT wnl -Radiology will not do MRCP because of vent 6. 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 Encephalopathy secondary to anoxic brain injury -acute on chronic? -Ct shows acute ischemic infarct, pt is on ASA 8. H/o duodenal ulcer 9. Complex UTI with lisa albicans, s/p diflucan -RESOLVED 10. 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 Persistent fevers 12. Abnormal LFTs -liver disease -trending down 13. Acute non hemorrhagic infarcts noted on Brain CT Plan: ERCP on hold for newly found brain infarcts Monitor LFT and WBC Monitor closely for GI bleeding and HH, at this point there is no evidence of active GI bleeding Patient's WBC scan is negative Transfuse 1 unit of packed cell RBC Consultation Date/Type/Reason Admit Date/Time Mar 31, 2018 at 17:58 Initial Consult Date 04/02/18 Requesting Provider: TAMARA GRAJEDA MD Date/Time of Note DATE: 05/11/18 TIME: 14:32 24 HR Interval Summary Subjective hx not possible: pt non-verbal Exam/Review of Systems Exam Vitals Vital Signs Date Temp Pulse Resp B/P (MAP) Pulse Ox O2 O2 Flow FiO2 Time Delivery Rate 05/11/18 85 29 100 30 13:20 05/11/18 97.5 109/75 Mechanical 11:42 (86) Ventilator Intake and Output 05/10/18 05/10/18 05/11/18 1515:00 23:00 07:00 IntakeIntake Total 993.4 ml 1650 ml OutputOutput Total 1000 ml 1000 ml BalanceBalance -6.6 ml 650 ml Constitutional: non-verbal Neck: No supple, No non-tender, No jvd, No bruits, No masses, No thyromegaly, No nuchal rigidity, No other Cardiovascular: regular rate and rhythm, nl pulses Results Result Diagram: 05/11/18 0611 05/11/18 0611 Results 24hrs Laboratory Tests Test 05/11/18 06:11 White Blood Count 5.9 Red Blood Count 2.40 L Hemoglobin 6.8 *L Hematocrit 21.5 L Mean Corpuscular Volume 89.6 Mean Corpuscular Hemoglobin 28.3 L Mean Corpuscular Hemoglobin Concent 31.6 L Red Cell Distribution Width 16.0 H Platelet Count 180 Mean Platelet Volume 10.5 H Immature Granulocytes % 0.700 H Neutrophils % 76.0 Lymphocytes % 7.7 L Monocytes % 11.4 H Eosinophils % 3.7 Basophils % 0.5 Nucleated Red Blood Cells % 0.0 Immature Granulocytes # 0.040 H Neutrophils # 4.5 Lymphocytes # 0.5 L Monocytes # 0.7 Eosinophils # 0.2 Basophils # 0.0 Nucleated Red Blood Cells # 0.0 Sodium Level 141 Potassium Level 3.5 Chloride Level 117 H Carbon Dioxide Level 16 L Anion Gap 8 Blood Urea Nitrogen 27 H Creatinine 0.73 Est Glomerular Filtrat Rate mL/min > 60 Glucose Level 93 Calcium Level 8.4 Medications Medication Current Medications Collagenase (Santyl) 1 applic DAILY TOP Last administered on 05/11/18 09:09; Admin Dose 1 APPLIC; Start 04/03/18 at 12:00 Lansoprazole (Prevacid) 30 mg HS PO Last administered on 05/10/18 21:54; Admin Dose 30 MG; Start 04/20/18 at 21:00 Fluconazole (Diflucan) 100 mg DAILY PO Last administered on 05/11/18 09:09; Admin Dose 100 MG; Start 04/21/18 at 14:00 Albuterol (Proventil 0.083% (Neb)) 2.5 mg Q3H RESP THERAPY PRN NEB WHEEZING AND SOB; Start 04/30/18 at 19:00 Ascorbic Acid (Vitamin C) 500 mg DAILY GTB Last administered on 05/11/18 09:09; Admin Dose 500 MG; Start 05/04/18 at 09:30 Zinc Sulfate (Zinc Sulfate) 220 mg DAILY GTB Last administered on 05/11/18 09:09; Admin Dose 220 MG; Start 05/04/18 at 09:30 Multivit/Ca Carb/ B Cmplx/FA/Prenat (Sofy-Sandoval) 1 tab DAILY GTB Last administered on 05/11/18 09:09; Admin Dose 1 TAB; Start 05/04/18 at 09:30 Acetaminophen (Tylenol Liquid) 650 mg Q4H PRN GTB MILD PAIN(1-3)OR ELEVATED TE MP Last administered on 05/11/18at 02:50; Admin Dose 650 MG; Start 05/04/18 at 09:30 Acetaminophen (Tylenol Supp) 650 mg Q6H PRN [place] temp over 101; Start 05/04/18 at 09:30 Polyethylene Glycol (Miralax) 17 gm DAILY PRN GTB constipation; Start 05/04/18 at 16:00 Hydralazine HCl (Apresoline) 5 mg Q6H PRN IV ELEVATED BLOOD PRESSURE; Start 05/04/18 at 22:30 Aspirin (Aspirin) 81 mg DAILY PO Last administered on 05/11/18at 09:09; Admin Dose 81 MG; Start 05/05/18 at 15:00 Atorvastatin Calcium (Lipitor) 10 mg HS PO Last administered on 05/10/18at 21:54; Admin Dose 10 MG; Start 05/06/18 at 21:00 Sodium Chloride 1,000 ml @ 75 mls/hr [id number] IV Last administered on 05/11/18at 01:33; Admin Dose 75 MLS/HR; Start 05/07/18 at 13:30 Sodium Hypochlorite (Dakin'S (Dilute 40)) 1 applic BID IRR Last administered on 05/11/18at 09:09; Admin Dose 1 APPLIC; Start 05/09/18 at 15:00 Amikacin Sulfate (Amikacin Iv Per Pharmacy) AMIKACIN PER PHARMACY NOTE XX ; Start 05/15/18 at 11:30 Amikacin Sulfate 850 mg/Sodium Chloride 253.4 ml @ 250 mls/hr Q72H IVPB Last administered on 05/10/18at 16:07; Admin Dose 250 MLS/HR; Start 05/10/18 at 15:00 Morphine Sulfate (morphine) 5 mg Q4H PRN GTB SEVERE PAIN LEVEL 7-10; Start 05/11/18 at 14:00 RASHEEDA MEJIA MD May 11, 2018 14:32
--- NOTE | 2018-05-11 17:51 | CONS ---
Assessment/Plan Assessment/Plan Hospital Course (Demo Recall) ID PROGRESS NOTE CURRENT ABX: DAY # => Amikacin + Diflucan s/p Cefepime s/p Doxy s/p Vanco IV + Merrem 24H INTERVAL SUMMARY * Confused -- Non-communicative on the Vent, VSS, TMax > afebrile x 72H MICRO/OTHER * MICRO: * 05/07/18 URINE CX (+)PSAR * 05/03/18 TRACH (+)PSAR * 04/29/18 Urine (+)yeast * Blood cultures remain negative. * Urine culture positive for Breanne albicans. * Endotracheal aspirate growing gram-negative rods. * Sacral wound culture growing MRSA, Breanne albicans, enterococcus, gram- negative rods. * Nares swab positive for MRSA * 04/20 + 04/21/18 PENILE DISCHARGE GENITAL CULTURE Final Organism 1 BREANNE ALBICANS QUANTITY SCANT GROWTH Organism 2 PSEUDOMONAS AERUGINOSA QUANTITY SCANT GROWTH P.AERUG P.AERUG M.I.C. RX M.I.C. RX --------- --- --------- --- AMIKACIN <=2 S AZTREONAM I CEFEPIME >=64 R CEFTAZIDIME >=64 R CIPROFLOXACIN >=4 R GENTAMICIN <=1 S LEVOFLOXACIN >=8 R MEROPENEM >32 R TOBRAMYCIN <=1 S PIPERACILLIN/TAZOBACTAM >=128 R PHYSICAL EXAMINATION: GENERAL: Afebrile, VSS HEENT: AT, NC, anicteric NECK: Supple, trach(+) -- secure CHEST: Equal chest rise bilaterally, without dyspnea on observation HEART: Pulse RRR ABDOMEN: Soft / NT EXTREMITIES: Warm, dry SKIN: No rash, no diaphoresis ID ASSESSMENT 62 yo M admit with: 1. s/p Sepsis === SIRS w/ ongoing fevers=> cant r/o malignancy given elevated CA19 and lipase * (+)PSAR UTI 2. Possible acute pancreatitis, CT of the abdomen revealed no abscess, no pseudocyst * -on CT scan pancreas is normal * -lipid panel wnl * -CBD 6mm, LFT wnl * -Radiology will not do MRCP because of vent * Possible enterocolitis per CT => s/p ABX including Flagyl 3. HCAP -- Hx of (+)MRSA * CT PULMONARY FINDINGS: There is patchy ground-glass opacification in the right middle lobe and anterior right upper lobe, with peribronchial/tree in bud nodules in the right lower lobe. Peribronchial opacification in the left upper lobe and left lower lobe with atelectasis/consolidation in the left lower lobe. 4. Chronic respiratory failure 5. Hx of cardiomyopathy 6. S/p gingival bleeding w/resultant blood loss anemia 7. Sinusitis = s/p ABX treatment 8. Complex UTI w/penile discharge (+)PSAR * s/p Breanne albicans UTI = s/p Diflucan 9. Sacral decub (+)MRSA Nares -> s/p Vanco IV ABX ALLERGIES: NKDA INVASIVES: PICC, Trach, Peg, FC CURRENT ABX: DAY #Amikacin + Diflucan s/p Cefepime s/p Doxy s/p Vanco IV + Merrem ID RECOMMENDATIONS/PLAN: 1. Continue Amikacin/Diflucan -- will follow up tomorrow . . Consultation Date/Type/Reason Admit Date/Time Mar 31, 2018 at 17:58 Initial Consult Date 04/02/18 Requesting Provider: TAMARA GRAJEDA MD Date/Time of Note DATE: 05/11/18 TIME: 17:46 Exam/Review of Systems Exam Vitals Vital Signs Date Temp Pulse Resp B/P (MAP) Pulse Ox O2 O2 Flow FiO2 Time Delivery Rate 05/11/18 98 30 100 30 17:21 05/11/18 98.5 154/98 Mechanical 16:15 (116) Ventilator Intake and Output 05/10/18 05/10/18 05/11/18 1515:00 23:00 07:00 IntakeIntake Total 993.4 ml 1650 ml OutputOutput Total 1000 ml 1000 ml BalanceBalance -6.6 ml 650 ml Results Result Diagram: 05/11/18 0611 05/11/18 0611 Results 24hrs Laboratory Tests Test 05/11/18 06:11 White Blood Count 5.9 Red Blood Count 2.40 L Hemoglobin 6.8 *L Hematocrit 21.5 L Mean Corpuscular Volume 89.6 Mean Corpuscular Hemoglobin 28.3 L Mean Corpuscular Hemoglobin Concent 31.6 L Red Cell Distribution Width 16.0 H Platelet Count 180 Mean Platelet Volume 10.5 H Immature Granulocytes % 0.700 H Neutrophils % 76.0 Lymphocytes % 7.7 L Monocytes % 11.4 H Eosinophils % 3.7 Basophils % 0.5 Nucleated Red Blood Cells % 0.0 Immature Granulocytes # 0.040 H Neutrophils # 4.5 Lymphocytes # 0.5 L Monocytes # 0.7 Eosinophils # 0.2 Basophils # 0.0 Nucleated Red Blood Cells # 0.0 Sodium Level 141 Potassium Level 3.5 Chloride Level 117 H Carbon Dioxide Level 16 L Anion Gap 8 Blood Urea Nitrogen 27 H Creatinine 0.73 Est Glomerular Filtrat Rate mL/min > 60 Glucose Level 93 Calcium Level 8.4 Medications Medication Current Medications Collagenase (Santyl) 1 applic DAILY TOP Last administered on 05/11/18 09:09; Admin Dose 1 APPLIC; Start 04/03/18 at 12:00 Lansoprazole (Prevacid) 30 mg HS PO Last administered on 05/10/18 21:54; Admin Dose 30 MG; Start 04/20/18 at 21:00 Fluconazole (Diflucan) 100 mg DAILY PO Last administered on 05/11/18 09:09; Admin Dose 100 MG; Start 04/21/18 at 14:00 Albuterol (Proventil 0.083% (Neb)) 2.5 mg Q3H RESP THERAPY PRN NEB WHEEZING AND SOB; Start 04/30/18 at 19:00 Ascorbic Acid (Vitamin C) 500 mg DAILY GTB Last administered on 05/11/18 09:09; Admin Dose 500 MG; Start 05/04/18 at 09:30 Zinc Sulfate (Zinc Sulfate) 220 mg DAILY GTB Last administered on 05/11/18 09:09; Admin Dose 220 MG; Start 05/04/18 at 09:30 Multivit/Ca Carb/ B Cmplx/FA/Prenat (Sofy-Sandoval) 1 tab DAILY GTB Last administered on 05/11/18 09:09; Admin Dose 1 TAB; Start 05/04/18 at 09:30 Acetaminophen (Tylenol Liquid) 650 mg Q4H PRN GTB MILD PAIN(1-3)OR ELEVATED TEMP Last administered on 05/11/18at 02:50; Admin Dose 650 MG; Start 05/04/18 at 09:30 Acetaminophen (Tylenol Supp) 650 mg Q6H PRN [place] temp over 101; Start 05/04/18 at 09:30 Polyethylene Glycol (Miralax) 17 gm DAILY PRN GTB constipation; Start 05/04/18 at 16:00 Hydralazine HCl (Apresoline) 5 mg Q6H PRN IV ELEVATED BLOOD PRESSURE; Start 05/04/18 at 22:30 Aspirin (Aspirin) 81 mg DAILY PO Last administered on 05/11/18 09:09; Admin Dose 81 MG; Start 05/05/18 at 15:00 Atorvastatin Calcium (Lipitor) 10 mg HS PO Last administered on 05/10/18at 21:54; Admin Dose 10 MG; Start 05/06/18 at 21:00 Sodium Chloride 1,000 ml @ 75 mls/hr [id number] IV Last administered on 05/11/18at 01:33; Admin Dose 75 MLS/HR; Start 05/07/18 at 13:30 Sodium Hypochlorite (Dakin'S (Dilute 40)) 1 applic BID IRR Last administered on 05/11/18at 09:09; Admin Dose 1 APPLIC; Start 05/09/18 at 15:00 Amikacin Sulfate (Amikacin Iv Per Pharmacy) AMIKACIN PER PHARMACY NOTE XX ; Start 05/15/18 at 11:30 Amikacin Sulfate 850 mg/Sodium Chloride 253.4 ml @ 250 mls/hr Q72H IVPB Last administered on 05/10/18 16:07; Admin Dose 250 MLS/HR; Start 05/10/18 at 15:00 Morphine Sulfate (morphine) 5 mg Q4H PRN GTB SEVERE PAIN LEVEL 7-10; Start 05/11/18 at 14:00 ODIN ALBERST NP May 11, 2018 17:51
[2018-05-11] MEDS: morphine LIQ (10 MG/5 ML) CUP GTB PRN (20:36)
[2018-05-11] MEDS: LANSOPRAZOLE 30 MG CAP PO SCH (20:37)
[2018-05-11] MEDS: ATORVASTATIN 10 MG TAB PO SCH (20:37)
[2018-05-12] VITALS (23 sets, daily range): BP systolic 96–140; BP diastolic 69–99; PULSE 92–114; RESP 20–29
[2018-05-12] MEDS: SOD CHLORIDE 0.9% 1,000 ML IV SCH ×2 (01:28→13:46)
[2018-05-12] MEDS: BALSAM PERU/CASTOR OIL 60 GM TUBE TOP SCH ×2 (08:32→20:30)
[2018-05-12] MEDS: ASCORBIC ACID 500 MG TAB GTB SCH (08:33)
[2018-05-12] MEDS: MULTIVIT/CA CARB/B CMPLX/FA TAB GTB SCH (08:33)
[2018-05-12] MEDS: ZINC SULFATE 220 MG CAP GTB SCH (08:33)
[2018-05-12] MEDS: ASPIRIN 81 MG TAB PO SCH (08:33)
[2018-05-12] MEDS: FLUCONAZOLE 100 MG TAB PO SCH (08:33)
[2018-05-12] MEDS: COLLAGENASE 5 GM (UD JAR) TOP SCH (08:33)
[2018-05-12] MEDS: SODIUM HYPOCHLORITE (1/40) 1 APPLIC BTL IRR SCH ×2 (08:33→20:30)
--- NOTE | 2018-05-12 12:34 | CONS ---
Assessment/Plan Assessment/Plan Hospital Course 62 M c/ Hx of methamphetamine/ETOH abuse c/b cirrhosis and dilated cardiomyopathy... and other comorbidities, admitted for evaluation of gingival bleeding..and fevers.... Neurology is again consulted to evaluate encephalopathy and assess prognosis for meaningful neurologic recovery.. The clinical picture again suggests an acute toxic-metabolic (?on chronic) encephalopathy. Repeat Head CT shows a new R temporal infarction..which may be a contributor.. Recent MRI brain was notable for a subacute cerebellar infarction, though it is limited by motion.. Recent EEG was without epileptiform activity. His prognosis for meaningful neurologic recovery remains guarded. P: Agree w/ asa daily for secondary stroke prevention, as medically able (severe anemia noted...); LDL is at goal... Limit sedating medications where possible PT/OT/ST as able Continued medical management and supportive care per primary Will follow Consultation Date/Type/Reason Admit Date/Time Mar 31, 2018 at 17:58 Type of Consult Neurology Reason for Consultation encephalopathy; prognosis.. Requesting Provider: TAMARA GRAJEDA MD Date/Time of Note DATE: 05/12/18 TIME: 12:34 24 HR Interval Summary Free Text/Dictation Continues acute care Exam Vital Signs Vitals Vital Signs Date Temp Pulse Resp B/P (MAP) Pulse Ox O2 O2 Flow FiO2 Time Delivery Rate 05/12/18 98.8 110 23 136/97 100 Mechanical 11:08 (110) Ventilator 05/12/18 30 08:00 Intake and Output 05/11/18 05/11/18 05/12/18 1515:00 23:00 07:00 IntakeIntake Total 1010 ml 1670 ml OutputOutput Total 400 ml 700 ml BalanceBalance 610 ml 970 ml Exam Comprehensive: stable from prior MANDO PINO May 12, 2018 12:34
--- NOTE | 2018-05-12 14:34 | CONS ---
Assessment/Plan Assessment/Plan Hospital Course (Demo Recall) ID PROGRESS NOTE CURRENT ABX: DAY # => Amikacin#3 + Diflucan s/p Cefepime s/p Doxy s/p Vanco IV + Merrem 05/12/1861705/12/18617 24H INTERVAL SUMMARY * Awake, alert, VSS, NAD, TMax > afebrile x 96H == clinically improved on ABX * Non-communicative w/ Trach to vent, Fi02 30% VSS, MICRO/OTHER * MICRO: * 05/07/18 URINE CX (+)PSAR * 05/03/18 TRACH (+)PSAR * 04/29/18 Urine (+)yeast * Blood cultures remain negative. * Urine culture positive for Breanne albicans. * Endotracheal aspirate growing gram-negative rods. * Sacral wound culture growing MRSA, Breanne albicans, enterococcus, gram- negative rods. * Nares swab positive for MRSA * 04/20 + 04/21/18 PENILE DISCHARGE GENITAL CULTURE Final Organism 1 BREANNE ALBICANS QUANTITY SCANT GROWTH Organism 2 PSEUDOMONAS AERUGINOSA QUANTITY SCANT GROWTH P.AERUG P.AERUG M.I.C. RX M.I.C. RX --------- --- --------- --- AMIKACIN <=2 S AZTREONAM I CEFEPIME >=64 R CEFTAZIDIME >=64 R CIPROFLOXACIN >=4 R GENTAMICIN <=1 S LEVOFLOXACIN >=8 R MEROPENEM >32 R TOBRAMYCIN <=1 S PIPERACILLIN/TAZOBACTAM >=128 R PHYSICAL EXAMINATION: GENERAL: Afebrile, VSS HEENT: AT, NC, anicteric NECK: Supple, trach(+) -- secure CHEST: Equal chest rise bilaterally, without dyspnea on observation HEART: Pulse RRR ABDOMEN: Soft / NT EXTREMITIES: Warm, dry SKIN: No rash, no diaphoresis ID ASSESSMENT 62 yo M admit with: 1. s/p Sepsis === SIRS w/ ongoing fevers=> cant r/o malignancy given elevated CA19 and lipase * (+)PSAR UTI 2. Possible acute pancreatitis, CT of the abdomen revealed no abscess, no pseudocyst * -on CT scan pancreas is normal * -lipid panel wnl * -CBD 6mm, LFT wnl * -Radiology will not do MRCP because of vent * Possible enterocolitis per CT => s/p ABX including Flagyl 3. HCAP -- Hx of (+)MRSA * CT PULMONARY FINDINGS: There is patchy ground-glass opacification in the right middle lobe and anterior right upper lobe, with peribronchial/tree in bud nodules in the right lower lobe. Peribronchial opacification in the left upper lobe and left lower lobe with atelectasis/consolidation in the left lower l obe. 4. Chronic respiratory failure 5. Hx of cardiomyopathy 6. S/p gingival bleeding w/resultant blood loss anemia 7. Sinusitis = s/p ABX treatment 8. Complex UTI w/penile discharge (+)PSAR * s/p Breanne albicans UTI = s/p Diflucan 9. Sacral decub (+)MRSA Nares -> s/p Vanco IV ABX ALLERGIES: NKDA INVASIVES: PICC, Trach, Peg, FC CURRENT ABX: DAY #Amikacin #3 + Diflucan s/p Cefepime s/p Doxy s/p Vanco IV + Merrem ID RECOMMENDATIONS/PLAN: 1. Continue Amikacin/Diflucan --anticipate 7-10 days for MDRO PSAR . Consultation Date/Type/Reason Admit Date/Time Mar 31, 2018 at 17:58 Initial Consult Date 04/02/18 Requesting Provider: TAMARA GRAJEDA MD Date/Time of Note DATE: 05/12/18 TIME: 14:31 Exam/Review of Systems Exam Vitals Vital Signs Date Temp Pulse Resp B/P (MAP) Pulse Ox O2 O2 Flow FiO2 Time Delivery Rate 05/12/18 97 12:00 05/12/18 98.8 23 136/97 100 Mechanical 11:08 (110) Ventilator 05/12/18 30 08:00 Intake and Output 05/11/18 05/11/18 05/12/18 1414:59 22:59 06:59 IntakeIntake Total 1010 ml 1670 ml OutputOutput Total 400 ml 700 ml BalanceBalance 610 ml 970 ml Results Result Diagram: 05/12/1818 05/12/1818 Results 24hrs Laboratory Tests Test 05/12/18 06:18 White Blood Count 6.9 Red Blood Count 2.75 L Hemoglobin 7.8 L Hematocrit 24.0 L Mean Corpuscular Volume 87.3 Mean Corpuscular Hemoglobin 28.4 L Mean Corpuscular Hemoglobin Concent 32.5 Red Cell Distribution Width 15.8 H Platelet Count 186 Mean Platelet Volume 10.2 Immature Granulocytes % 1.000 H Neutrophils % 79.0 H Lymphocytes % 7.2 L Monocytes % 8.4 Eosinophils % 4.0 Basophils % 0.4 Nucleated Red Blood Cells % 0.0 Immature Granulocytes # 0.070 H Neutrophils # 5.5 Lymphocytes # 0.5 L Monocytes # 0.6 Eosinophils # 0.3 Basophils # 0.0 Nucleated Red Blood Cells # 0.0 Sodium Level 142 Potassium Level 3.4 L Chloride Level 113 H Carbon Dioxide Level 17 L Anion Gap 12 Blood Urea Nitrogen 24 H Creatinine 0.72 Est Glomerular Filtrat Rate mL/min > 60 Glucose Level 100 Calcium Level 8.4 Medications Medication Current Medications Collagenase (Santyl) 1 applic DAILY TOP Last administered on 05/12/18at 08:33; Admin Dose 1 APPLIC; Start 04/03/18 at 12:00 Lansoprazole (Prevacid) 30 mg HS PO Last administered on 05/11/18at 20:37; Admin Dose 30 MG; Start 04/20/18 at 21:00 Fluconazole (Diflucan) 100 mg DAILY PO Last administered on 05/12/18at 08:33; Admin Dose 100 MG; Start 04/21/18 at 14:00 Albuterol (Proventil 0.083% (Neb)) 2.5 mg Q3H RESP THERAPY PRN NEB WHEEZING AND SOB; Start 04/30/18 at 19:00 Ascorbic Acid (Vitamin C) 500 mg DAILY GTB Last administered on 05/12/18at 08:33; Admin Dose 500 MG; Start 05/04/18 at 09:30 Zinc Sulfate (Zinc Sulfate) 220 mg DAILY GTB Last administered on 05/12/18at 08:33; Admin Dose 220 MG; Start 05/04/18 at 09:30 Multivit/Ca Carb/ B Cmplx/FA/Prenat (Sofy-Sandoval) 1 tab DAILY GTB Last administered on 05/12/18 08:33; Admin Dose 1 TAB; Start 05/04/18 at 09:30 Acetaminophen (Tylenol Liquid) 650 mg Q4H PRN GTB MILD PAIN(1-3)OR ELEVATED TEMP Last administered on 05/11/18 20:35; Admin Dose 650 MG; Start 05/04/18 at 09:30 Acetaminophen (Tylenol Supp) 650 mg Q6H PRN [place] temp over 101; Start 05/04/18 at 09:30 Polyethylene Glycol (Miralax) 17 gm DAILY PRN GTB constipation; Start 05/04/18 at 16:00 Hydralazine HCl (Apresoline) 5 mg Q6H PRN IV ELEVATED BLOOD PRESSURE; Start 05/04/18 at 22:30 Aspirin (Aspirin) 81 mg DAILY PO Last administered on 05/12/18 08:33; Admin Dose 81 MG; Start 05/05/18 at 15:00 Atorvastatin Calcium (Lipitor) 10 mg HS PO Last administered on 05/11/18 20:37; Admin Dose 10 MG; Start 05/06/18 at 21:00 Sodium Chloride 1,000 ml @ 75 mls/hr [id number] IV Last administered on 05/12/18 13:46; Admin Dose 75 MLS/HR; Start 05/07/18 at 13:30 Sodium Hypochlorite (Dakin'S (Dilute )) 1 applic BID IRR Last administered on 05/12/18 08:33; Admin Dose 1 APPLIC; Start 05/09/18 at 15:00 Amikacin Sulfate (Amikacin Iv Per Pharmacy) AMIKACIN PER PHARMACY NOTE XX ; Start 05/15/18 at 11:30 Amikacin Sulfate 850 mg/Sodium Chloride 253.4 ml @ 250 mls/hr Q72H IVPB Last administered on 05/10/18 16:07; Admin Dose 250 MLS/HR; Start 05/10/18 at 15:00 Morphine Sulfate (morphine) 5 mg Q4H PRN GTB SEVERE PAIN LEVEL 7-10 Last administered on 05/11/18 20:36; Admin Dose 5 MG; Start 05/11/18 at 14:00 ODIN ALBERTS NP May 12, 2018 14:34
--- NOTE | 2018-05-12 18:26 | PN ---
Date/Time of Note Date/Time of Note DATE: 05/12/18 TIME: 18:25 Assessment/Plan VTE Prophylaxis Risk score (from Ns)>0 risk: 5 SCD applied (from Ns): Yes SCD contraindicated: other Pharmacological prophylaxis: other Pharm contraindication: other Lines/Catheters IV Catheter Type (from [facility]): Peripheral IV Urinary Cath still in place: Yes Reason Cath still needed: other (indicate) Assessment/Plan Hospital Course # UTI # Oral gingival bleeding likely due to dentures, was seen by ENT s/p endoscopy # Sepsis with Fevers with hx Pneumonia +UTI and ? Pancreatitis +multiple wounds, ucx+ lisa # Blood loss anemia due to #1, resolved # VDRF # CKD , resolved # Metabolic acidosis # DILATED CARDIOMYOPATHY # HX ALCOHOL ABUSE # Multiple wounds > decub # hypomagnesemia, esolved # low grade fever. stable today ANEMIA PLAN HEMATOLOGY CONSULT Result Diagram: 05/12/18 0618 05/12/18 0618 Results 24hrs Laboratory Tests Test 05/12/18 06:18 White Blood Count 6.9 Red Blood Count 2.75 L Hemoglobin 7.8 L Hematocrit 24.0 L Mean Corpuscular Volume 87.3 Mean Corpuscular Hemoglobin 28.4 L Mean Corpuscular Hemoglobin Concent 32.5 Red Cell Distribution Width 15.8 H Platelet Count 186 Mean Platelet Volume 10.2 Immature Granulocytes % 1.000 H Neutrophils % 79.0 H Lymphocytes % 7.2 L Monocytes % 8.4 Eosinophils % 4.0 Basophils % 0.4 Nucleated Red Blood Cells % 0.0 Immature Granulocytes # 0.070 H Neutrophils # 5.5 Lymphocytes # 0.5 L Monocytes # 0.6 Eosinophils # 0.3 Basophils # 0.0 Nucleated Red Blood Cells # 0.0 Sodium Level 142 Potassium Level 3.4 L Chloride Level 113 H Carbon Dioxide Level 17 L Anion Gap 12 Blood Urea Nitrogen 24 H Creatinine 0.72 Est Glomerular Filtrat Rate mL/min > 60 Glucose Level 100 Calcium Level 8.4 Subjective 24 Hr Interval Summary Subjective hx not possible: pt non-verbal Exam/Review of Systems Exam Vitals Vital Signs Date Temp Pulse Resp B/P (MAP) Pulse Ox O2 O2 Flow FiO2 Time Delivery Rate 05/12/18 98 29 97 30 17:30 05/12/18 99.1 134/94 Mechanical 15:55 (107) Ventilator Intake and Output 05/11/18 05/11/18 05/12/18 1515:00 23:00 07:00 IntakeIntake Total 1010 ml 1670 ml OutputOutput Total 400 ml 700 ml BalanceBalance 610 ml 970 ml Neck: supple Respiratory: clear to auscultation Cardiovascular: regular rate and rhythm Gastrointestinal: soft Musculoskeletal: nl extremities to inspection Extremities: normal pulses Results Results 24hrs Laboratory Tests Test 05/12/18 06:18 White Blood Count 6.9 Red Blood Count 2.75 L Hemoglobin 7.8 L Hematocrit 24.0 L Mean Corpuscular Volume 87.3 Mean Corpuscular Hemoglobin 28.4 L Mean Corpuscular Hemoglobin Concent 32.5 Red Cell Distribution Width 15.8 H Platelet Count 186 Mean Platelet Volume 10.2 Immature Granulocytes % 1.000 H Neutrophils % 79.0 H Lymphocytes % 7.2 L Monocytes % 8.4 Eosinophils % 4.0 Basophils % 0.4 Nucleated Red Blood Cells % 0.0 Immature Granulocytes # 0.070 H Neutrophils # 5.5 Lymphocytes # 0.5 L Monocytes # 0.6 Eosinophils # 0.3 Basophils # 0.0 Nucleated Red Blood Cells # 0.0 Sodium Level 142 Potassium Level 3.4 L Chloride Level 113 H Carbon Dioxide Level 17 L Anion Gap 12 Blood Urea Nitrogen 24 H Creatinine 0.72 Est Glomerular Filtrat Rate mL/min > 60 Glucose Level 100 Calcium Level 8.4 Medications Medication Current Medications Collagenase (Santyl) 1 applic DAILY TOP Last administered on 05/12/18at 08:33; Admin Dose 1 APPLIC; Start 04/03/18 at 12:00 Lansoprazole (Prevacid) 30 mg HS PO Last administered on 05/11/18at 20:37; Admin Dose 30 MG; Start 04/20/18 at 21:00 Fluconazole (Diflucan) 100 mg DAILY PO Last administered on 05/12/18at 08:33; Admin Dose 100 MG; Start 04/21/18 at 14:00 Albuterol (Proventil 0.083% (Neb)) 2.5 mg Q3H RESP THERAPY PRN NEB WHEEZING AND SOB; Start 04/30/18 at 19:00 Ascorbic Acid (Vitamin C) 500 mg DAILY GTB Last administered on 05/12/18at 08:33; Admin Dose 500 MG; Start 05/04/18 at 09:30 Zinc Sulfate (Zinc Sulfate) 220 mg DAILY GTB Last administered on 05/12/18 08:33; Admin Dose 220 MG; Start 05/04/18 at 09:30 Multivit/Ca Carb/ B Cmplx/FA/Prenat (Sofy-Sandoval) 1 tab DAILY GTB Last administered on 05/12/18 08:33; Admin Dose 1 TAB; Start 05/04/18 at 09:30 Acetaminophen (Tylenol Liquid) 650 mg Q4H PRN GTB MILD PAIN(1-3)OR ELEVATED TEMP Last administered on 05/11/18 20:35; Admin Dose 650 MG; Start 05/04/18 at 09:30 Acetaminophen (Tylenol Supp) 650 mg Q6H PRN [place] temp over 101; Start 05/04/18 at 09:30 Polyethylene Glycol (Miralax) 17 gm DAILY PRN GTB constipation; Start 05/04/18 at 16:00 Hydralazine HCl (Apresoline) 5 mg Q6H PRN IV ELEVATED BLOOD PRESSURE; Start 05/04/18 at 22:30 Aspirin (Aspirin) 81 mg DAILY PO Last administered on 05/12/18 08:33; Admin Dose 81 MG; Start 05/05/18 at 15:00 Atorvastatin Calcium (Lipitor) 10 mg HS PO Last administered on 05/11/18 20:37; Admin Dose 10 MG; Start 05/06/18 at 21:00 Sodium Chloride 1,000 ml @ 75 mls/hr [id number] IV Last administered on 05/12/18 13:46; Admin Dose 75 MLS/HR; Start 05/07/18 at 13:30 Sodium Hypochlorite (Dakin'S (Dilute )) 1 applic BID IRR Last administered on 05/12/18 08:33; Admin Dose 1 APPLIC; Start 05/09/18 at 15:00 Amikacin Sulfate (Amikacin Iv Per Pharmacy) AMIKACIN PER PHARMACY NOTE XX ; Start 05/15/18 at 11:30 Amikacin Sulfate 850 mg/Sodium Chloride 253.4 ml @ 250 mls/hr Q72H IVPB Last administered on 05/10/18 16:07; Admin Dose 250 MLS/HR; Start 05/10/18 at 15:00 Morphine Sulfate (morphine) 5 mg Q4H PRN GTB SEVERE PAIN LEVEL 7-10 Last administered on 05/11/18at 20:36; Admin Dose 5 MG; Start 05/11/18 at 14:00 Miscellaneous Information (*Rx Drug Level Order Reminder*) AMIKACIN TR LEVEL PRIOR... ONCE ONCE XX ; Start 05/13/18 at 14:00; Stop 05/13/18 at 14:01 GARFIELD MORAEU MD May 12, 2018 18:26
--- NOTE | 2018-05-12 18:39 | CONS ---
Assessment/Plan Assessment/Plan Assessment/Plan (Daily) Assessment/Plan (Daily) 62 male with excessively bleeding gingival tissue and severe anemia 1. Severe acute on chronic anemia likely due to blood loss from gingival bleeding 3. Chronic liver disease, alcohol related 4. Mild coagulopathy 5. Elevated lipase with mildly elevated CA 19-9 -on CT scan pancreas is normal -lipid panel wnl -CBD 6mm, LFT wnl -Radiology will not do MRCP because of vent 6. 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 Encephalopathy secondary to anoxic brain injury -acute on chronic? -Ct shows acute ischemic infarct, pt is on ASA 8. H/o duodenal ulcer 9. Complex UTI with lisa albicans, s/p diflucan -RESOLVED 10. 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 Persistent fevers 12. Abnormal LFTs -liver disease -trending down 13. Acute non hemorrhagic infarcts noted on Brain CT Plan: ERCP on hold for newly found brain infarcts Monitor LFT and WBC Monitor closely for GI bleeding and HH, at this point there is no evidence of active GI bleeding Patient's WBC scan is negative Transfuse 1 unit of packed cell RBC Consultation Date/Type/Reason Admit Date/Time Mar 31, 2018 at 17:58 Initial Consult Date 04/02/18 Requesting Provider: TAMARA GRAJEDA MD Date/Time of Note DATE: 05/12/18 TIME: 18:38 24 HR Interval Summary Subjective hx not possible: pt non-verbal Exam/Review of Systems Exam Vitals Vital Signs Date Temp Pulse Resp B/P (MAP) Pulse Ox O2 O2 Flow FiO2 Time Delivery Rate 05/12/18 98 29 97 30 17:30 05/12/18 99.1 134/94 Mechanical 15:55 (107) Ventilator Intake and Output 05/11/18 05/11/18 05/12/18 1414:59 22:59 06:59 IntakeIntake Total 1010 ml 1670 ml OutputOutput Total 400 ml 700 ml BalanceBalance 610 ml 970 ml Gastrointestinal: soft, nl liver, spleen, non-tender Musculoskeletal: nl extremities to inspection, nl gait and stance Results Result Diagram: 05/12/18 0618 05/12/18 0618 Results 24hrs Laboratory Tests Test 05/12/18 06:18 White Blood Count 6.9 Red Blood Count 2.75 L Hemoglobin 7.8 L Hematocrit 24.0 L Mean Corpuscular Volume 87.3 Mean Corpuscular Hemoglobin 28.4 L Mean Corpuscular Hemoglobin Concent 32.5 Red Cell Distribution Width 15.8 H Platelet Count 186 Mean Platelet Volume 10.2 Immature Granulocytes % 1.000 H Neutrophils % 79.0 H Lymphocytes % 7.2 L Monocytes % 8.4 Eosinophils % 4.0 Basophils % 0.4 Nucleated Red Blood Cells % 0.0 Immature Granulocytes # 0.070 H Neutrophils # 5.5 Lymphocytes # 0.5 L Monocytes # 0.6 Eosinophils # 0.3 Basophils # 0.0 Nucleated Red Blood Cells # 0.0 Sodium Level 142 Potassium Level 3.4 L Chloride Level 113 H Carbon Dioxide Level 17 L Anion Gap 12 Blood Urea Nitrogen 24 H Creatinine 0.72 Est Glomerular Filtrat Rate mL/min > 60 Glucose Level 100 Calcium Level 8.4 Medications Medication Current Medications Collagenase (Santyl) 1 applic DAILY TOP Last administered on 05/12/18 08:33; Admin Dose 1 APPLIC; Start 04/03/18 at 12:00 Lansoprazole (Prevacid) 30 mg HS PO Last administered on 05/11/18at 20:37; Admin Dose 30 MG; Start 04/20/18 at 21:00 Fluconazole (Diflucan) 100 mg DAILY PO Last administered on 05/12/18 08:33; Admin Dose 100 MG; Start 04/21/18 at 14:00 Albuterol (Proventil 0.083% (Neb)) 2.5 mg Q3H RESP THERAPY PRN NEB WHEEZING AND SOB; Start 04/30/18 at 19:00 Ascorbic Acid (Vitamin C) 500 mg DAILY GTB Last administered on 05/12/18 08:33; Admin Dose 500 MG; Start 05/04/18 at 09:30 Zinc Sulfate (Zinc Sulfate) 220 mg DAILY GTB Last administered on 05/12/18 08:33; Admin Dose 220 MG; Start 05/04/18 at 09:30 Multivit/Ca Carb/ B Cmplx/FA/Prenat (Sofy-Sandoval) 1 tab DAILY GTB Last administered on 05/12/18 08:33; Admin Dose 1 TAB; Start 05/04/18 at 09:30 Acetaminophen (Tylenol Liquid) 650 mg Q4H PRN GTB MILD PAIN(1-3)OR ELEVATED TEMP Last administered on 05/11/18at 20:35; Admin Dose 650 MG; Start 05/04/18 at 09:30 Acetaminophen (Tylenol Supp) 650 mg Q6H PRN [place] temp over 101; Start 05/04/18 at 09:30 Polyethylene Glycol (Miralax) 17 gm DAILY PRN GTB constipation; Start 05/04/18 at 16:00 Hydralazine HCl (Apresoline) 5 mg Q6H PRN IV ELEVATED BLOOD PRESSURE; Start 05/04/18 at 22:30 Aspirin (Aspirin) 81 mg DAILY PO Last administered on 05/12/18 08:33; Admin Dose 81 MG; Start 05/05/18 at 15:00 Atorvastatin Calcium (Lipitor) 10 mg HS PO Last administered on 05/11/18at 20:37; Admin Dose 10 MG; Start 05/06/18 at 21:00 Sodium Chloride 1,000 ml @ 75 mls/hr [id number] IV Last administered on 05/12/18at 13:46; Admin Dose 75 MLS/HR; Start 05/07/18 at 13:30 Sodium Hypochlorite (Dakin'S (Dilute )) 1 applic BID IRR Last administered on 05/12/18 08:33; Admin Dose 1 APPLIC; Start 05/09/18 at 15:00 Amikacin Sulfate (Amikacin Iv Per Pharmacy) AMIKACIN PER PHARMACY NOTE XX ; Start 05/15/18 at 11:30 Amikacin Sulfate 850 mg/Sodium Chloride 253.4 ml @ 250 mls/hr Q72H IVPB Last administered on 05/10/18at 16:07; Admin Dose 250 MLS/HR; Start 05/10/18 at 15:00 Morphine Sulfate (morphine) 5 mg Q4H PRN GTB SEVERE PAIN LEVEL 7-10 Last administered on 05/11/18at 20:36; Admin Dose 5 MG; Start 05/11/18 at 14:00 Miscellaneous Information (*Rx Drug Level Order Reminder*) AMIKACIN TR LEVEL PRIOR... ONCE ONCE XX ; Start 05/13/18 at 14:00; Stop 05/13/18 at 14:01 Potassium Chloride 100 ml @ 50 mls/hr Q2H IVPB ; Start 05/12/18 at 18:30; Stop 05/12/18 at 22:29 RASHEEDA MEJIA MD May 12, 2018 18:39
[2018-05-12] MEDS: POTASSIUM CHLORIDE 100 ML IVPB SCH ×2 (18:53→21:06)
[2018-05-12] MEDS: morphine LIQ (10 MG/5 ML) CUP GTB PRN (20:29)
[2018-05-12] MEDS: ACETAMINOPHEN 650MG/20.3ML CUP GTB PRN (20:29)
[2018-05-12] MEDS: ATORVASTATIN 10 MG TAB PO SCH (20:29)
[2018-05-12] MEDS: LANSOPRAZOLE 30 MG CAP PO SCH (20:29)
[2018-05-13] VITALS (22 sets, daily range): BP systolic 103–158; BP diastolic 78–110; PULSE 95–117; RESP 19–33
[2018-05-13] MEDS: SOD CHLORIDE 0.9% 1,000 ML IV SCH ×2 (03:35→07:27)
[2018-05-13] MEDS: ASCORBIC ACID 500 MG TAB GTB SCH (08:42)
[2018-05-13] MEDS: ZINC SULFATE 220 MG CAP GTB SCH (08:42)
[2018-05-13] MEDS: MULTIVIT/CA CARB/B CMPLX/FA TAB GTB SCH (08:42)
[2018-05-13] MEDS: BALSAM PERU/CASTOR OIL 60 GM TUBE TOP SCH ×2 (08:42→21:08)
[2018-05-13] MEDS: FLUCONAZOLE 100 MG TAB PO SCH (08:42)
[2018-05-13] MEDS: COLLAGENASE 5 GM (UD JAR) TOP SCH (08:42)
[2018-05-13] MEDS: ASPIRIN 81 MG TAB PO SCH (08:42)
[2018-05-13] MEDS: SODIUM HYPOCHLORITE (1/40) 1 APPLIC BTL IRR SCH ×2 (08:43→21:08)
[2018-05-13] MEDS: morphine LIQ (10 MG/5 ML) CUP GTB PRN (08:51)
--- NOTE | 2018-05-13 09:09 | CONS ---
Assessment/Plan Assessment/Plan Hospital Course (Demo Recall) 62 male with excessively bleeding gingival tissue and severe anemia 1. Severe acute on chronic anemia likely due to blood loss from gingival bleeding 3. Chronic liver disease, alcohol related 4. Mild coagulopathy 5. Elevated lipase with mildly elevated CA 19-9 -on CT scan pancreas is normal -lipid panel wnl -CBD 6mm, LFT wnl -Radiology will not do MRCP because of vent 6. Chronic kidney disease -BUN/rinkman wnl 7. Encephalopathy secondary to anoxic brain injury -acute on chronic? -Ct shows acute ischemic infarct, pt is on ASA 8. H/o duodenal ulcer 9. Complex UTI with lisa albicans, s/p diflucan -RESOLVED 10. 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 Persistent fevers -resolved 12. Abnormal LFTs -liver disease -trending down 13. Acute non hemorrhagic infarcts noted on Brain CT Plan: Dr Pelayo met with two family members, spouse was out of town. Family members will speak with pt's spouse regarding hospice care but for now, ERCP on hold until returns on Sunday. Monitor LFT and WBC Monitor closely for GI bleeding and HH, Pt examined and plan of care discussed with Dr. Peña Consultation Date/Type/Reason Admit Date/Time Mar 31, 2018 at 17:58 Initial Consult Date 04/02/18 Requesting Provider: TAMARA GRAJEDA MD Date/Time of Note DATE: 05/13/18 TIME: 09:03 24 HR Interval Summary Free Text/Dictation NO evidence of GI bleeding. BM yesterday. tolerating tube feeds. No acute changes Exam/Review of Systems Exam Vitals Vital Signs Date Temp Pulse Resp B/P (MAP) Pulse Ox O2 O2 Flow FiO2 Time Delivery Rate 05/13/18 98.3 110 32 158/110 100 07:41 (126) 05/13/18 30 07:15 05/12/18 Mechanical 15:55 Ventilator Intake and Output 05/12/18 05/12/18 05/13/18 1515:00 23:00 07:00 IntakeIntake Total 770 ml 790 ml OutputOutput Total 600 ml 1000 ml BalanceBalance 170 ml -210 ml Constitutional: alert Head: normocephalic Respiratory: diminished breath sounds Cardiovascular: other (sinus tachycardia) Gastrointestinal: soft, non-tender Neurological: other (un communicative) Results Result Diagram: 05/12/1818 05/12/18 0618 Results 24hrs Laboratory Tests Test 05/13/18 08:10 Lab Scanned Report BLOOD TRANSFUSION Medications Medication Current Medications Collagenase (Santyl) 1 applic DAILY TOP Last administered on 05/13/18 08:42; Admin Dose 1 APPLIC; Start 04/03/18 at 12:00 Lansoprazole (Prevacid) 30 mg HS PO Last administered on 05/12/18 20:29; Admin Dose 30 MG; Start 04/20/18 at 21:00 Fluconazole (Diflucan) 100 mg DAILY PO Last administered on 05/13/18 08:42; Admin Dose 100 MG; Start 04/21/18 at 14:00 Albuterol (Proventil 0.083% (Neb)) 2.5 mg Q3H RESP THERAPY PRN NEB WHEEZING AND SOB; Start 04/30/18 at 19:00 Ascorbic Acid (Vitamin C) 500 mg DAILY GTB Last administered on 05/13/18 08:42; Admin Dose 500 MG; Start 05/04/18 at 09:30 Zinc Sulfate (Zinc Sulfate) 220 mg DAILY GTB Last administered on 05/13/18 08:42; Admin Dose 220 MG; Start 05/04/18 at 09:30 Multivit/Ca Carb/ B Cmplx/FA/Prenat (Sofy-Sandoval) 1 tab DAILY GTB Last administered on 05/13/18 08:42; Admin Dose 1 TAB; Start 05/04/18 at 09:30 Acetaminophen (Tylenol Liquid) 650 mg Q4H PRN GTB MILD PAIN(1-3)OR ELEVATED TEMP Last administered on 05/12/18 20:29; Admin Dose 650 MG; Start 05/04/18 at 09:30 Acetaminophen (Tylenol Supp) 650 mg Q6H PRN [place] temp over 101; Start 05/04/18 at 09:30 Polyethylene Glycol (Miralax) 17 gm DAILY PRN GTB constipation; Start 05/04/18 at 16:00 Hydralazine HCl (Apresoline) 5 mg Q6H PRN IV ELEVATED BLOOD PRESSURE; Start at 22:30 Aspirin (Aspirin) 81 mg DAILY PO Last administered on 05/13/18 08:42; Admin Dose 81 MG; Start 05/05/18 at 15:00 Atorvastatin Calcium (Lipitor) 10 mg HS PO Last administered on 05/12/18 20:29; Admin Dose 10 MG; Start 05/06/18 at 21:00 Sodium Chloride 1,000 ml @ 75 mls/hr [id number] IV Last administered on 05/13/18 07:27; Admin Dose 75 MLS/HR; Start 05/07/18 at 13:30 Sodium Hypochlorite (Dakin'S (Dilute )) 1 applic BID IRR Last administered on 05/13/18at 08:43; Admin Dose 1 APPLIC; Start 05/09/18 at 15:00 Amikacin Sulfate (Amikacin Iv Per Pharmacy) AMIKACIN PER PHARMACY NOTE XX ; Start 05/15/18 at 11:30 Amikacin Sulfate 850 mg/Sodium Chloride 253.4 ml @ 250 mls/hr Q72H IVPB Last administered on 05/10/18at 16:07; Admin Dose 250 MLS/HR; Start 05/10/18 at 15:00 Morphine Sulfate (morphine) 5 mg Q4H PRN GTB SEVERE PAIN LEVEL 7-10 Last administered on 05/13/18at 08:51; Admin Dose 5 MG; Start 05/11/18 at 14:00 Miscellaneous Information (*Rx Drug Level Order Reminder*) AMIKACIN TR LEVEL PRIOR... ONCE ONCE XX ; Start 05/13/18 at 14:00; Stop 05/13/18 at 14:01 QI CHRISTIANSON May 13, 2018 09:09
--- NOTE | 2018-05-13 12:51 | CONS ---
Assessment/Plan Assessment/Plan Hospital Course (Demo Recall) ID PROGRESS NOTE CURRENT ABX: DAY # => Amikacin#4 + Diflucan s/p Cefepime s/p Doxy s/p Vanco IV + Merrem 05/12/1861705/12/18617 24H INTERVAL SUMMARY * RN called me yesterday for TMax of 100.4 after patient had no fevers 96H prior - I gave verbal order for repeat blood, urine, only if TMax >101.5. No evidence of true fever spike -- no low grade temps recorded after single episode of TMax 100.4 yesterday -- VSS, hemodynamics were stable during the time of call and also today. The patient is currently in treatment for MDRO PSAR UTI. He also has numerous wound and invasives which all likely contributing to SIRs. * 05/07/18 WBC SCAN: IMPRESSION: No definite abnormal focal areas of increased activity. * Patient is awake, alert, VSS, NAD * Non-communicative w/ Trach to vent, Fi02 30% VSS, MICRO/OTHER * MICRO: * 05/07/18 URINE CX (+)PSAR URINE CULTURE Final Organism 1 PSEUDOMONAS AERUGINOSA COLONY COUNT 10,000 - 20,000 CFU/ml * 05/03/18 TRACH (+)PSAR * 04/29/18 Urine (+)yeast * Blood cultures remain negative. * Urine culture positive for Breanne albicans. * Endotracheal aspirate growing gram-negative rods. * Sacral wound culture growing MRSA, Breanne albicans, enterococcus, gram- negative rods. * Nares swab positive for MRSA * 04/20 + 04/21/18 PENILE DISCHARGE GENITAL CULTURE Final Organism 1 BREANNE ALBICANS QUANTITY SCANT GROWTH Organism 2 PSEUDOMONAS AERUGINOSA QUANTITY SCANT GROWTH P.AERUG P.AERUG M.I.C. RX M.I.C. RX --------- --- --------- --- AMIKACIN <=2 S AZTREONAM I CEFEPIME >=64 R CEFTAZIDIME >=64 R CIPROFLOXACIN >=4 R GENTAMICIN <=1 S LEVOFLOXACIN >=8 R MEROPENEM >32 R TOBRAMYCIN <=1 S PIPERACILLIN/TAZOBACTAM >=128 R PHYSICAL EXAMINATION: GENERAL: Afebrile, VSS HEENT: AT, NC, anicteric NECK: Supple, trach(+) -- secure CHEST: Equal chest rise bilaterally, without dyspnea on observation HEART: Pulse RRR ABDOMEN: Soft / NT EXTREMITIES: Warm, dry SKIN: No rash, no diaphoresis ID ASSESSMENT 62 yo M admit with: 1. s/p Sepsis === SIRS w/ ongoing fevers=> cant r/o malignancy given elevated CA19 and lipase * (+)PSAR UTI + PSAR PNA 2. Possible acute pancreatitis, CT of the abdomen revealed no abscess, no pseudocyst * -on CT scan pancreas is normal * -lipid panel wnl * -CBD 6mm, LFT wnl * -Radiology will not do MRCP because of vent * Possible enterocolitis per CT => s/p ABX including Flagyl 3. HCAP -- (+)PSAR w/Hx of (+)MRSA * CT PULMONARY FINDINGS: There is patchy ground-glass opacification in the right middle lobe and anterior right upper lobe, with peribronchial/tree in bud nodules in the right lower lobe. Peribronchial opacification in the left upper lobe and left lower lobe with atelectasis/consolidation in the left lower lobe. 4. Chronic respiratory failure 5. Hx of cardiomyopathy 6. S/p gingival bleeding w/resultant blood loss anemia 7. Sinusitis = s/p ABX treatment 8. Complex UTI w/penile discharge (+)PSAR * s/p Breanne albicans UTI = s/p Diflucan 9. Sacral decub - polymicrobial pathogens -- has been treated w/prolonged course of ABX (+)MRSA Nares -> s/p Vanco IV ABX ALLERGIES: NKDA INVASIVES: PICC, Trach, Peg, FC CURRENT ABX: DAY => Amikacin#4 + Diflucan s/p Cefepime s/p Doxy s/p Vanco IV + Merrem ID RECOMMENDATIONS/PLAN: 1. Continue Amikacin/Diflucan --anticipate 10-14 days for persistent MDRO PSAR UTI / VAP 2. Repeat MRSA nares screen --see if it was eradicated w/prior Rx Vanco IV . Consultation Date/Type/Reason Admit Date/Time Mar 31, 2018 at 17:58 Initial Consult Date 04/02/18 Requesting Provider: TAMARA GRAJEDA MD Date/Time of Note DATE: 05/13/18 TIME: 12:39 Exam/Review of Systems Exam Vitals Vital Signs Date Temp Pulse Resp B/P (MAP) Pulse Ox O2 O2 Flow FiO2 Time Delivery Rate 05/13/18 97.3 113 26 132/100 98 12:01 (111) 05/13/18 30 09:10 05/12/18 Mechanical 15:55 Ventilator Intake and Output 05/12/18 05/12/18 05/13/18 1515:00 23:00 07:00 IntakeIntake Total 770 ml 790 ml OutputOutput Total 600 ml 1000 ml BalanceBalance 170 ml -210 ml Results Result Diagram: 05/12/1818 05/12/18 0618 Results 24hrs Laboratory Tests Test 05/13/18 08:10 Lab Scanned Report BLOOD TRANSFUSION Medications Medication Current Medications Collagenase (Santyl) 1 applic DAILY TOP Last administered on 05/13/18at 08:42; Admin Dose 1 APPLIC; Start 04/03/18 at 12:00 Lansoprazole (Prevacid) 30 mg HS PO Last administered on 05/12/18at 20:29; Admin Dose 30 MG; Start 04/20/18 at 21:00 Fluconazole (Diflucan) 100 mg DAILY PO Last administered on 05/13/18at 08:42; Admin Dose 100 MG; Start 04/21/18 at 14:00 Albuterol (Proventil 0.083% (Neb)) 2.5 mg Q3H RESP THERAPY PRN NEB WHEEZING AND SOB; Start 04/30/18 at 19:00 Ascorbic Acid (Vitamin C) 500 mg DAILY GTB Last administered on 05/13/18at 08:42; Admin Dose 500 MG; Start 05/04/18 at 09:30 Zinc Sulfate (Zinc Sulfate) 220 mg DAILY GTB Last administered on 05/13/18at 08:42; Admin Dose 220 MG; Start 05/04/18 at 09:30 Multivit/Ca Carb/ B Cmplx/FA/Prenat (Sofy-Sandoval) 1 tab DAILY GTB Last administered on 05/13/18 08:42; Admin Dose 1 TAB; Start 05/04/18 at 09:30 Acetaminophen (Tylenol Liquid) 650 mg Q4H PRN GTB MILD PAIN(1-3)OR ELEVATED TEMP Last administered on 05/12/18 20:29; Admin Dose 650 MG; Start 05/04/18 at 09:30 Acetaminophen (Tylenol Supp) 650 mg Q6H PRN [place] temp over 101; Start 05/04/18 at 09:30 Polyethylene Glycol (Miralax) 17 gm DAILY PRN GTB constipation; Start 05/04/18 at 16:00 Hydralazine HCl (Apresoline) 5 mg Q6H PRN IV ELEVATED BLOOD PRESSURE; Start 05/04/18 at 22:30 Aspirin (Aspirin) 81 mg DAILY PO Last administered on 05/13/18 08:42; Admin Dose 81 MG; Start 05/05/18 at 15:00 Atorvastatin Calcium (Lipitor) 10 mg HS PO Last administered on 05/12/18 20:29; Admin Dose 10 MG; Start 05/06/18 at 21:00 Sodium Chloride 1,000 ml @ 75 mls/hr [id number] IV Last administered on 05/13/18 07:27; Admin Dose 75 MLS/HR; Start 05/07/18 at 13:30 Sodium Hypochlorite (Dakin'S (Dilute )) 1 applic BID IRR Last administered on 05/13/18 08:43; Admin Dose 1 APPLIC; Start 05/09/18 at 15:00 Amikacin Sulfate (Amikacin Iv Per Pharmacy) AMIKACIN PER PHARMACY NOTE XX ; Start 05/15/18 at 11:30 Amikacin Sulfate 850 mg/Sodium Chloride 253.4 ml @ 250 mls/hr Q72H IVPB Last administered on 05/10/18 16:07; Admin Dose 250 MLS/HR; Start 05/10/18 at 15:00 Morphine Sulfate (morphine) 5 mg Q4H PRN GTB SEVERE PAIN LEVEL 7-10 Last administered on 05/13/18 08:51; Admin Dose 5 MG; Start 05/11/18 at 14:00 Miscellaneous Information (*Rx Drug Level Order Reminder*) AMIKACIN TR LEVEL PRIOR... ONCE ONCE XX ; Start 05/13/18 at 14:00; Stop 05/13/18 at 14:01 ODIN ALBERTS NP May 13, 2018 12:50
--- NOTE | 2018-05-13 12:59 | PN ---
Date/Time of Note Date/Time of Note DATE: 05/13/18 TIME: 12:56 Assessment/Plan VTE Prophylaxis Risk score (from Ns)>0 risk: 6 SCD applied (from Ns): Yes Pharmacological prophylaxis: NA/contraindicated Pharm contraindication: low risk/ambulating Lines/Catheters IV Catheter Type (from Nrsg): Peripheral IV Urinary Cath still in place: Yes Reason Cath still needed: urinary retention Assessment/Plan Hospital Course 62 y/o with # Oral gingival bleeding likely due to dentures, seen by ENT s/p endoscopy # Sepsis with Fevers with hx Pneumonia +UTI and ? Pancreatitis +multiple wounds, ucx+ lisa, wound cx+ MRSA/ pseudomonas, +resp culture +pseudomonas # Blood loss anemia due to oral gingival bleeding # VDRF # CKD with worsening renal failure>resolved # Metabolic acidosis #DILATED CARDIOMYOPATHY # HX ALCOHOL ABUSE # Multiple wounds > decub # Pancreatitis with elevated Lipase # Enterocoltiis on CT # AMS due to Metabolic encephalopathy with . Possible subacute infarct in the left cerebellar hemisphere and cerebellar peduncle> much improved> now again AMS? encephalopathy> now with new stroke on 05/05/18 #Ongoing fevers likely secondary to UTI/hcap now improved> again with fevers> +psedomonas in sputum has again gram-negative in the urine Plan - hold ASA due to anemia -on amikacin/diflucan - WBC scan neg - fu neuro recs - ERCP cancelled due to new stroke - Family meeting discussed goals of care, again with Dr. Anthony / family coming back - Heme consult fo anemia? r/o malignancy - GI prophylaxsis - monitor oral bleeding - labs am - hydralzine prn - Result Diagram: 05/12/18 0618 05/12/18 0618 Results 24hrs Laboratory Tests Test 05/13/18 08:10 Lab Scanned Report BLOOD TRANSFUSION Subjective 24 Hr Interval Summary Free Text/Dictation Intermittent tachycardic SBP elevated Exam/Review of Systems Exam Vitals Vital Signs Date Temp Pulse Resp B/P (MAP) Pulse Ox O2 O2 Flow FiO2 Time Delivery Rate 05/13/18 97.3 113 26 132/100 98 12:01 (111) 05/13/18 30 09:10 05/12/18 Mechanical 15:55 Ventilator Intake and Output 05/12/18 05/12/18 05/13/18 1515:00 23:00 07:00 IntakeIntake Total 770 ml 790 ml OutputOutput Total 600 ml 1000 ml BalanceBalance 170 ml -210 ml Exam Constitutional: frail ENMT: other (tracheostomy) Cardiovascular: regular rate and rhythm Gastrointestinal: soft Genitourinary - Male: other (mullins) Results Results 24hrs Laboratory Tests Test 05/13/18 08:10 Lab Scanned Report BLOOD TRANSFUSION Medications Medication Current Medications Collagenase (Santyl) 1 applic DAILY TOP Last administered on 05/13/18 08:42; Admin Dose 1 APPLIC; Start 04/03/18 at 12:00 Lansoprazole (Prevacid) 30 mg HS PO Last administered on 05/12/18 20:29; Admin Dose 30 MG; Start 04/20/18 at 21:00 Fluconazole (Diflucan) 100 mg DAILY PO Last administered on 05/13/18 08:42; Admin Dose 100 MG; Start 04/21/18 at 14:00 Albuterol (Proventil 0.083% (Neb)) 2.5 mg Q3H RESP THERAPY PRN NEB WHEEZING AND SOB; Start 04/30/18 at 19:00 Ascorbic Acid (Vitamin C) 500 mg DAILY GTB Last administered on 05/13/18 08:42; Admin Dose 500 MG; Start 05/04/18 at 09:30 Zinc Sulfate (Zinc Sulfate) 220 mg DAILY GTB Last administered on 05/13/18 08:42; Admin Dose 220 MG; Start 05/04/18 at 09:30 Multivit/Ca Carb/ B Cmplx/FA/Prenat (Sofy-Sandoval) 1 tab DAILY GTB Last administered on 05/13/18 08:42; Admin Dose 1 TAB; Start 05/04/18 at 09:30 Acetaminophen (Tylenol Liquid) 650 mg Q4H PRN GTB MILD PAIN(1-3)OR ELEVATED TEMP Last administered on 05/12/18 20:29; Admin Dose 650 MG; Start 05/04/18 at 09:30 Acetaminophen (Tylenol Supp) 650 mg Q6H PRN [place] temp over 101; Start 05/04/18 at 09:30 Polyethylene Glycol (Miralax) 17 gm DAILY PRN GTB constipation; Start 05/04/18 at 16:00 Hydralazine HCl (Apresoline) 5 mg Q6H PRN IV ELEVATED BLOOD PRESSURE; Start 05/04/18 at 22:30 Aspirin (Aspirin) 81 mg DAILY PO Last administered on 05/13/18 08:42; Admin Dose 81 MG; Start 05/05/18 at 15:00 Atorvastatin Calcium (Lipitor) 10 mg HS PO Last administered on 05/12/18 20:29; Admin Dose 10 MG; Start 05/06/18 at 21:00 Sodium Chloride 1,000 ml @ 75 mls/hr [id number] IV Last administered on 05/13/18 07:27; Admin Dose 75 MLS/HR; Start 05/07/18 at 13:30 Sodium Hypochlorite (Dakin'S (Dilute )) 1 applic BID IRR Last administered on 05/13/18 08:43; Admin Dose 1 APPLIC; Start 05/09/18 at 15:00 Amikacin Sulfate (Amikacin Iv Per Pharmacy) AMIKACIN PER PHARMACY NOTE XX ; Start 05/15/18 at 11:30 Amikacin Sulfate 850 mg/Sodium Chloride 253.4 ml @ 250 mls/hr Q72H IVPB Last administered on 05/10/18 16:07; Admin Dose 250 MLS/HR; Start 05/10/18 at 15:00 Morphine Sulfate (morphine) 5 mg Q4H PRN GTB SEVERE PAIN LEVEL 7-10 Last administered on 05/13/18 08:51; Admin Dose 5 MG; Start 05/11/18 at 14:00 Miscellaneous Information (*Rx Drug Level Order Reminder*) AMIKACIN TR LEVEL PRIOR... ONCE ONCE XX ; Start 05/13/18 at 14:00; Stop 05/13/18 at 14:01 TAMARA GRAJEDA MD May 13, 2018 12:59
--- NOTE | 2018-05-13 14:59 | CONS ---
Assessment/Plan Assessment/Plan Hospital Course (Demo Recall) 62 yo with multiple medical problems and very complicated hospital course with multiple infectious complications on antibiotics, cardiomyopathy, ETOH abuse history, pancreatitis, Encephalopathy secondary to anoxic brain injury. We are asked to see for anemia and elevated Ca 19-9 #PANCREATITIS this is likely what is causing the elevated ca 19-9. 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 being follwed by Dr Peña # anemia I suspect his anemia is due to anemia of chronic disease/inflammation he had iron studies about 1 mo in hospital showing a very elevated ferritin, repeat iron studies now to get a more up to date status repeat b12 also check SPEP and light chains transfuse if hgb <7 1 u prbcs transfuse plt if ,10K or actively bleeding Consultation Date/Type/Reason Admit Date/Time Mar 31, 2018 at 17:58 Date/Time of Note DATE: 05/13/18 TIME: 14:55 Hx of Present Illness Unfortunate 62 male with very complicated hospital course with Sepsis with Fevers with hx Pneumonia +UTI and, he has Pancreatitis, lisa in urine culture. wound cx+ MRSA/ pseudomonas, +resp culture +pseudomonas, dilated cardiomyopathy, h/o alcohol abuse, and oncgoing fevers due to UTI and HCAP. We are asked to see for anemia and elevated Ca 19-9 His iron studies are c/w anemia of chronic inflammation/chronic disease as ferritin is quite elevated. He has no B12 deficiency, Ca 19-9 is only 51. most recent Hgb is 8.3, WBC 7.2, Plt 199K Constitutional: no complaints, improved Eyes: no complaints Genitourinary: no complaints Musculoskeletal: no complaints Skin: no complaints Neurologic: no complaints Past Medical History Medical History: congestive heart failure, diabetes, GERD, hepatitis, pancreatitis, peptic ulcer disease, renal disease, urinary tract infection Home Meds Reported Medications Cran/Vitc/Mannose/Inulin/Brom (Uti-Stat Liquid) 3,875 Mg/30 Ml Liquid, 3875 MG GTB DAILY 03/31/18 Ascorbic Acid* (Vitamin C*) 500 Mg Capsule.sa, 500 MG GTB DAILY, CAP 03/31/18 Zinc Sulfate* (Zinc Sulfate*) 220 Mg Tablet, 220 MG GTB DAILY, TAB 03/31/18 Acetaminophen* (Acetaminophen*) 650 Mg Tablet, 650 MG GTB Q4 PRN for MILD PAIN LEVEL 1-3, #30 TAB AND FEVER 03/31/18 Acetaminophen* (Acetaminophen*) 500 MG Extra Strength Tablet, 1000 MG GTB Q4 PRN for MODERATE PAIN LEVEL 4-6, TAB 03/31/18 Acetaminophen* (Acetaminophen*) 325 Mg Tablet, 650 MG GTB TRACH CHANGE PRN for PAIN, #30 TAB GIVE 30 MIN PRIOR TO CHANGE 03/31/18 Spironolactone* (Aldactone*) 25 Mg Tablet, 25 MG GTB DAILY, #30 TAB 03/31/18 Multivit/Ca Carb/B Cmplx/Fa* (Sofy-Sandoval*) 1 Tab Tab, 1 TAB GTB DAILY, TAB 03/31/18 Hydrocodone/Acetaminophen ([place] 5-325 Tablet) 1 Each Tablet, 1 EACH GTB BID, TAB 03/31/18 Midodrine* (Midodrine*) 5 Mg Tablet, 5 MG GTB BID, TAB HOLD FOR SBP ABOVE 110 03/31/18 Na Phos,M-B/Na Phos,Di-Ba (ENEMA [id number]) 133 Ml Enema, 133 ML RC EVERY TWO DAYS PRN for CONSTIPATION, ENEMA 03/31/18 Bisacodyl (Dulcolax) 10 Mg Supp.rect, 10 MG RC DAILY PRN for CONSTIPATION, SUPP.RECT 03/31/18 Carvedilol* (Carvedilol*) 25 Mg Tablet, 25 MG GTB BID, #60 TAB HOLD FOR SBP BELOW 100 OR HR BELOW 50 03/31/18 Albuterol Sulfate* (Albuterol Sulfate* Neb) 0.083%-3 Ml Neb, 2.5 MG NEB Q6 PRN for WHEEZING AND SOB, #30 VIAL 03/31/18 Albuterol Sulfate* (Albuterol Sulfate* Neb) 0.083%-3 Ml Neb, 2.5 MG NEB Q3H PRN for WHEEZING AND SOB, #30 VIAL 03/31/18 Lactobacillus Acidophilus/Pect (Acidophilus-Pectin Capsule) 1 Each Capsule, 1 EACH GTB DAILY, CAP 03/31/18 Medications Current Medications Collagenase (Santyl) 1 applic DAILY TOP Last administered on 05/13/18at 08:42; Admin Dose 1 APPLIC; Start 04/03/18 at 12:00 Lansoprazole (Prevacid) 30 mg HS PO Last administered on 05/12/18 20:29; Admin Dose 30 MG; Start 04/20/18 at 21:00 Fluconazole (Diflucan) 100 mg DAILY PO Last administered on 05/13/18 08:42; Admin Dose 100 MG; Start 04/21/18 at 14:00 Albuterol (Proventil 0.083% (Neb)) 2.5 mg Q3H RESP THERAPY PRN NEB WHEEZING AND SOB; Start 04/30/18 at 19:00 Ascorbic Acid (Vitamin C) 500 mg DAILY GTB Last administered on 05/13/18 08:42; Admin Dose 500 MG; Start 05/04/18 at 09:30 Zinc Sulfate (Zinc Sulfate) 220 mg DAILY GTB Last administered on 05/13/18 08:42; Admin Dose 220 MG; Start 05/04/18 at 09:30 Multivit/Ca Carb/ B Cmplx/FA/Prenat (Sofy-Sandoval) 1 tab DAILY GTB Last administered on 05/13/18 08:42; Admin Dose 1 TAB; Start 05/04/18 at 09:30 Acetaminophen (Tylenol Liquid) 650 mg Q4H PRN GTB MILD PAIN(1-3)OR ELEVATED TEMP Last administered on 05/12/18 20:29; Admin Dose 650 MG; Start 05/04/18 at 09:30 Acetaminophen (Tylenol Supp) 650 mg Q6H PRN [place] temp over 101; Start 05/04/18 at 09:30 Polyethylene Glycol (Miralax) 17 gm DAILY PRN GTB constipation; Start 05/04/18 at 16:00 Hydralazine HCl (Apresoline) 5 mg Q6H PRN IV ELEVATED BLOOD PRESSURE; Start 05/04/18 at 22:30 Aspirin (Aspirin) 81 mg DAILY PO Last administered on 05/13/18 08:42; Admin Dose 81 MG; Start 05/05/18 at 15:00 Atorvastatin Calcium (Lipitor) 10 mg HS PO Last administered on 05/12/18 20:29; Admin Dose 10 MG; Start 05/06/18 at 21:00 Sodium Hypochlorite (Dakin'S (Dilute )) 1 applic BID IRR Last administered on 05/13/18at 08:43; Admin Dose 1 APPLIC; Start 05/09/18 at 15:00 Amikacin Sulfate (Amikacin Iv Per Pharmacy) AMIKACIN PER PHARMACY NOTE XX ; Start 05/15/18 at 11:30 Amikacin Sulfate 850 mg/Sodium Chloride 253.4 ml @ 250 mls/hr Q72H IVPB Last administered on 05/10/18at 16:07; Admin Dose 250 MLS/HR; Start 05/10/18 at 15:00 Morphine Sulfate (morphine) 5 mg Q4H PRN GTB SEVERE PAIN LEVEL 7-10 Last administered on 05/13/18at 08:51; Admin Dose 5 MG; Start 05/11/18 at 14:00 Allergies: Coded Allergies: No Known Allergy (Unverified , 04/30/18) Past Surgical History Past Surgical Hx: other (Known) Social History Alcohol Use: occasionally Smoking Status: Unknown if ever smoked Exam/Review of Systems Exam Vitals Vital Signs Date Temp Pulse Resp B/P (MAP) Pulse Ox O2 O2 Flow FiO2 Time Delivery Rate 05/13/18 116 27 30 13:10 05/13/18 97.3 132/100 98 12:01 (111) 05/12/18 Mechanical 15:55 Ventilator Intake and Output 05/12/18 05/12/18 05/13/18 1515:00 23:00 07:00 IntakeIntake Total 770 ml 790 ml OutputOutput Total 600 ml 1000 ml BalanceBalance 170 ml -210 ml Head: atraumatic Eyes: nl conjunctiva, EOMI, nl lids, nl sclera, PERRL Neck: supple, non-tender Musculoskeletal: nl extremities to inspection, nl gait and stance Results Result Diagram: 05/13/18 1344 05/12/18 0618 Results 24hrs Laboratory Tests Test 05/13/18 08:10 05/13/18 13:44 Lab Scanned Report BLOOD TRANSFUSION White Blood Count 7.2 Red Blood Count 2.97 L Hemoglobin 8.3 L Hematocrit 25.8 L Mean Corpuscular Volume 86.9 Mean Corpuscular Hemoglobin 27.9 L Mean Corpuscular Hemoglobin Concent 32.2 Red Cell Distribution Width 16.2 H Platelet Count 199 Mean Platelet Volume 10.2 Immature Granulocytes % 0.600 H Neutrophils % 85.9 H Lymphocytes % 5.8 L Monocytes % 7.3 Eosinophils % 0.1 Basophils % 0.3 Nucleated Red Blood Cells % 0.0 Immature Granulocytes # 0.040 H Neutrophils # 6.2 Lymphocytes # 0.4 L Monocytes # 0.5 Eosinophils # 0.0 Basophils # 0.0 Nucleated Red Blood Cells # 0.0 Medications Medication Current Medications Collagenase (Santyl) 1 applic DAILY TOP Last administered on 05/13/18 08:42; Admin Dose 1 APPLIC; Start 04/03/18 at 12:00 Lansoprazole (Prevacid) 30 mg HS PO Last administered on 05/12/18 20:29; Admin Dose 30 MG; Start 04/20/18 at 21:00 Fluconazole (Diflucan) 100 mg DAILY PO Last administered on 05/13/18 08:42; Admin Dose 100 MG; Start 04/21/18 at 14:00 Albuterol (Proventil 0.083% (Neb)) 2.5 mg Q3H RESP THERAPY PRN NEB WHEEZING AND SOB; Start 04/30/18 at 19:00 Ascorbic Acid (Vitamin C) 500 mg DAILY GTB Last administered on 05/13/18 08:42; Admin Dose 500 MG; Start 05/04/18 at 09:30 Zinc Sulfate (Zinc Sulfate) 220 mg DAILY GTB Last administered on 05/13/18 08:42; Admin Dose 220 MG; Start 05/04/18 at 09:30 Multivit/Ca Carb/ B Cmplx/FA/Prenat (Sofy-Sandoval) 1 tab DAILY GTB Last administered on 05/13/18 08:42; Admin Dose 1 TAB; Start 05/04/18 at 09:30 Acetaminophen (Tylenol Liquid) 650 mg Q4H PRN GTB MILD PAIN(1-3)OR ELEVATED TE MP Last administered on 05/12/18 20:29; Admin Dose 650 MG; Start 05/04/18 at 09:30 Acetaminophen (Tylenol Supp) 650 mg Q6H PRN [place] temp over 101; Start 05/04/18 at 09:30 Polyethylene Glycol (Miralax) 17 gm DAILY PRN GTB constipation; Start 05/04/18 at 16:00 Hydralazine HCl (Apresoline) 5 mg Q6H PRN IV ELEVATED BLOOD PRESSURE; Start 05/04/18 at 22:30 Aspirin (Aspirin) 81 mg DAILY PO Last administered on 05/13/18 08:42; Admin Dose 81 MG; Start 05/05/18 at 15:00 Atorvastatin Calcium (Lipitor) 10 mg HS PO Last administered on 05/12/18 20:29; Admin Dose 10 MG; Start 05/06/18 at 21:00 Sodium Hypochlorite (Dakin'S (Dilute )) 1 applic BID IRR Last administered on 05/13/18 08:43; Admin Dose 1 APPLIC; Start 05/09/18 at 15:00 Amikacin Sulfate (Amikacin Iv Per Pharmacy) AMIKACIN PER PHARMACY NOTE XX ; Start 05/15/18 at 11:30 Amikacin Sulfate 850 mg/Sodium Chloride 253.4 ml @ 250 mls/hr Q72H IVPB Last administered on 05/10/18 16:07; Admin Dose 250 MLS/HR; Start 05/10/18 at 15:00 Morphine Sulfate (morphine) 5 mg Q4H PRN GTB SEVERE PAIN LEVEL 7-10 Last administered on 05/13/18 08:51; Admin Dose 5 MG; Start 05/11/18 at 14:00 JEY GRIJALVA May 13, 2018 14:59
--- NOTE | 2018-05-13 15:22 | CONS ---
Assessment/Plan Assessment/Plan Hospital Course 62 M c/ Hx of methamphetamine/ETOH abuse c/b cirrhosis and dilated cardiomyopathy... and other comorbidities, admitted for evaluation of gingival bleeding..and fevers.... Neurology is again consulted to evaluate encephalopathy and assess prognosis for meaningful neurologic recovery.. The clinical picture again suggests an acute toxic-metabolic (?on chronic) encephalopathy. Repeat Head CT shows a new R temporal infarction..which may be a contributor.. Recent MRI brain was notable for a subacute cerebellar infarction, though it is limited by motion.. Recent EEG was without epileptiform activity. His prognosis for meaningful neurologic recovery remains guarded. P: Agree w/ asa daily for secondary stroke prevention, as medically able (severe anemia noted...); LDL is at goal... Limit sedating medications where possible PT/OT/ST as able Continued medical management and supportive care per primary Will follow Consultation Date/Type/Reason Admit Date/Time Mar 31, 2018 at 17:58 Type of Consult Neurology Requesting Provider: TAMARA GRAJEDA MD Date/Time of Note DATE: 05/13/18 TIME: 15:22 24 HR Interval Summary Free Text/Dictation Continues telemetry monitoring. No acute events or changes in pt condition reported. Subjective hx not possible: pt non-verbal Exam Vital Signs Vitals Vital Signs Date Temp Pulse Resp B/P (MAP) Pulse Ox O2 O2 Flow FiO2 Time Delivery Rate 05/13/18 114 27 100 30 15:18 05/13/18 97.3 132/100 12:01 (111) 05/12/18 Mechanical 15:55 Ventilator Intake and Output 05/12/18 05/12/18 05/13/18 1414:59 22:59 06:59 IntakeIntake Total 770 ml 790 ml OutputOutput Total 600 ml 1000 ml BalanceBalance 170 ml -210 ml Exam PE: Gen Appearance: No Apparent Distress HEENT: Trach Cardiovascular: Regular rate Abdomen: Soft Extremities: Dry NE: The patient was lethargic and nonverbal. Cranial nerve examination was limited by mental status. Pupils were equal and reactive to light. There was no afferent pupillary defect. Funduscopic examination was limited. Face was grossly symmetric, w/ present corneal and cough reflexes. Tone was increased. Muscle bulk was reduced. I did not see fasciculations. The patient withdrew to noxious stimulation x 4..and moved his left arm spontaneously... Coordination and gait testing was limited by mental status. Arm and leg reflexes were symmetric. Maguire's sign was absent. Plantar responses were flexor. ANURAG PRESSLEY NP May 13, 2018 15:22
[2018-05-13] MEDS: AMIKACIN IVPB SCH (17:51)
[2018-05-13] MEDS: SOD CHLORIDE 0.9% IVPB SCH (17:51)
[2018-05-13] MEDS: ATORVASTATIN 10 MG TAB PO SCH (21:06)
[2018-05-13] MEDS: LANSOPRAZOLE 30 MG CAP PO SCH (21:07)
[2018-05-14] VITALS (22 sets, daily range): BP systolic 111–143; BP diastolic 84–100; PULSE 80–130; RESP 23–32
[2018-05-14] MEDS: ACETAMINOPHEN 650MG/20.3ML CUP GTB PRN ×2 (07:39→20:28)
--- NOTE | 2018-05-14 08:09 | CONS ---
Assessment/Plan Assessment/Plan Hospital Course (Demo Recall) 62 male with excessively bleeding gingival tissue and severe anemia 1. Severe acute on chronic anemia likely due to blood loss from gingival bleeding -improved 3. Chronic liver disease, alcohol related 4. Mild coagulopathy 5. Elevated lipase with mildly elevated CA 19-9 -on CT scan pancreas is normal -lipid panel wnl -CBD 6mm, LFT wnl -Radiology will not do MRCP because of vent 6. Chronic kidney disease -BUN/assistant commissioner wnl 7. Encephalopathy secondary to anoxic brain injury -acute on chronic? -Ct shows acute ischemic infarct, pt is on ASA 8. H/o duodenal ulcer 9. Complex UTI with lisa albicans, s/p diflucan -RESOLVED 10. 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 Persistent fevers -99.2 this am 12. Abnormal LFTs -liver disease -trending down 13. Acute non hemorrhagic infarcts noted on Brain CT Plan: Dr Pelayo met with two family members, spouse was out of town. Family members will speak with pt's spouse regarding hospice care but for now, ERCP on hold until returns on Sunday. If decides to continue care we will plan on repeat ERCP toward end of week. Monitor LFT and WBC Monitor closely for GI bleeding and HH, Pt examined and plan of care discussed with Dr. Pñea Consultation Date/Type/Reason Admit Date/Time Mar 31, 2018 at 17:58 Initial Consult Date 04/02/18 Requesting Provider: TAMARA GRAJEDA MD Date/Time of Note DATE: 05/14/18 TIME: 08:01 24 HR Interval Summary Free Text/Dictation Tachycardic in 120s. Temp 99.9. Does not appear to be in pain. Tylenol given. Tolerating tube feeds at 35cc/hr. Last bm 05/12. Actively bleeding from gums per RN. Exam/Review of Systems Exam Vitals Vital Signs Date Temp Pulse Resp B/P (MAP) Pulse Ox O2 O2 Flow FiO2 Time Delivery Rate 05/14/18 99.9 07:39 05/14/18 123 31 100 30 05:29 05/14/18 126/88 03:47 (101) 05/12/18 Mechanical 15:55 Ventilator Intake and Output 05/13/18 05/13/18 05/14/18 1515:00 23:00 07:00 IntakeIntake Total 943.4 ml 690 ml OutputOutput Total 1000 ml 800 ml BalanceBalance -56.6 ml -110 ml Constitutional: alert ENMT: other (small amount of red blood in mouth) Respiratory: diminished breath sounds Cardiovascular: other (sinus tachycardia) Gastrointestinal: soft, non-tender Neurological: unresponsive (non communicative) Results Result Diagram: 05/13/18 1344 05/12/18 0618 Results 24hrs Laboratory Tests Test 05/13/18 08:10 05/13/18 13:44 05/13/18 16:44 Lab Scanned Report BLOOD TRANSFUSION White Blood Count 7.2 Red Blood Count 2.97 L Hemoglobin 8.3 L Hematocrit 25.8 L Mean Corpuscular Volume 86.9 Mean Corpuscular Hemoglobin 27.9 L Mean Corpuscular 32.2 Hemoglobin Concent Red Cell Distribution Width 16.2 H Platelet Count 199 Mean Platelet Volume 10.2 Immature Granulocytes % 0.600 H Neutrophils % 85.9 H Segmented Neutrophils 81 H % (Manual) Band Neutrophils % (Manual) 8 H Lymphocytes % 5.8 L Lymphocytes % (Manual) 1 L Monocytes % 7.3 Monocytes % (Manual) 5 Eosinophils % 0.1 Eosinophils % (Manual) 3 Basophils % 0.3 Basophils % (Manual) 2 Nucleated Red Blood Cells % 0.0 Immature Granulocytes # 0.040 H Neutrophils # 6.2 Neutrophils # (Manual) 5.9 Band Neutrophils # 0.5 Lymphocytes (Manual) 0.0 L Lymphocytes # 0.4 L Monocytes # 0.5 Monocytes # (Manual) 0.3 Eosinophils # 0.0 Basophils # 0.0 Basophils # (Manual) 0.1 H Nucleated Red Blood Cells # 0.0 Platelet Estimate NORMAL Iron Level 27 L Total Iron Binding Capacity 175 L Percent Iron Saturation 15 L Ferritin 1600.0 H Vitamin B12 Level > 1000 H Medications Medication Current Medications Collagenase (Santyl) 1 applic DAILY TOP Last administered on 05/13/18at 08:42; Admin Dose 1 APPLIC; Start 04/03/18 at 12:00 Lansoprazole (Prevacid) 30 mg HS PO Last administered on 05/13/18at 21:07; Admin Dose 30 MG; Start 04/20/18 at 21:00 Fluconazole (Diflucan) 100 mg DAILY PO Last administered on 05/13/18at 08:42; Admin Dose 100 MG; Start 04/21/18 at 14:00 Albuterol (Proventil 0.083% (Neb)) 2.5 mg Q3H RESP THERAPY PRN NEB WHEEZING AND SOB; Start 04/30/18 at 19:00 Ascorbic Acid (Vitamin C) 500 mg DAILY GTB Last administered on 05/13/18 08:42; Admin Dose 500 MG; Start 05/04/18 at 09:30 Zinc Sulfate (Zinc Sulfate) 220 mg DAILY GTB Last administered on 05/13/18 08:42; Admin Dose 220 MG; Start 05/04/18 at 09:30 Multivit/Ca Carb/ B Cmplx/FA/Prenat (Sofy-Sandoval) 1 tab DAILY GTB Last administered on 05/13/18 08:42; Admin Dose 1 TAB; Start 05/04/18 at 09:30 Acetaminophen (Tylenol Liquid) 650 mg Q4H PRN GTB MILD PAIN(1-3)OR ELEVATED TEMP Last administered on 05/14/18 07:39; Admin Dose 650 MG; Start 05/04/18 at 09:30 Acetaminophen (Tylenol Supp) 650 mg Q6H PRN [place] temp over 101; Start 05/04/18 at 09:30 Polyethylene Glycol (Miralax) 17 gm DAILY PRN GTB constipation; Start 05/04/18 at 16:00 Hydralazine HCl (Apresoline) 5 mg Q6H PRN IV ELEVATED BLOOD PRESSURE; Start 05/04/18 at 22:30 Aspirin (Aspirin) 81 mg DAILY PO Last administered on 05/13/18 08:42; Admin Dose 81 MG; Start 05/05/18 at 15:00 Atorvastatin Calcium (Lipitor) 10 mg HS PO Last administered on 05/13/18 21:06; Admin Dose 10 MG; Start 05/06/18 at 21:00 Sodium Hypochlorite (Dakin'S (Dilute )) 1 applic BID IRR Last administered on 05/13/18 21:08; Admin Dose 1 APPLIC; Start 05/09/18 at 15:00 Amikacin Sulfate (Amikacin Iv Per Pharmacy) AMIKACIN PER PHARMACY NOTE XX ; Sta rt 05/15/18 at 11:30 Amikacin Sulfate 850 mg/Sodium Chloride 253.4 ml @ 250 mls/hr Q72H IVPB Last a dministered on 05/13/18 17:51; Admin Dose 250 MLS/HR; Start 05/10/18 at 15:00 Morphine Sulfate (morphine) 5 mg Q4H PRN GTB SEVERE PAIN LEVEL 7-10 Last administered on 05/13/18 08:51; Admin Dose 5 MG; Start 05/11/18 at 14:00 QI CHRISTIANSON May 14, 2018 08:09
[2018-05-14] MEDS: ASPIRIN 81 MG TAB PO SCH (09:02)
[2018-05-14] MEDS: ASCORBIC ACID 500 MG TAB GTB SCH (09:03)
[2018-05-14] MEDS: BALSAM PERU/CASTOR OIL 60 GM TUBE TOP SCH ×2 (09:03→20:29)
[2018-05-14] MEDS: ZINC SULFATE 220 MG CAP GTB SCH (09:03)
[2018-05-14] MEDS: FLUCONAZOLE 100 MG TAB PO SCH (09:03)
[2018-05-14] MEDS: COLLAGENASE 5 GM (UD JAR) TOP SCH (09:03)
[2018-05-14] MEDS: MULTIVIT/CA CARB/B CMPLX/FA TAB GTB SCH (09:03)
[2018-05-14] MEDS: SODIUM HYPOCHLORITE (1/40) 1 APPLIC BTL IRR SCH ×2 (09:03→20:29)
--- NOTE | 2018-05-14 11:31 | PN ---
Date/Time of Note Date/Time of Note DATE: 05/14/18 TIME: 11:28 Assessment/Plan Lines/Catheters IV Catheter Type (from Nrs): Peripheral IV Schwartz in Place (from Nrs): Yes Assessment/Plan Chief Complaint/Hosp Course 1. Decubitus pressure ulcers with necrosis s/p exc milena 04/30 -cont Local care -Offload -Nutritional optimization -Vitamin C -Short-term zinc -further debridement prn if family chooses to continue with present level of care- to return on Sunday 2. Functional quadriplegia with history of stroke secondary to drug and alcohol abuse, chronic encephalopathy with acute nonhemorrhagic infarcts seen on recent ct -per neuro -Medical optimization as above -pending final decision re goals of care 3. Poor quality of life -s/p family meeting >pending final decision re goals of care- to return on Sunday 4. Chronic renal disease -Judicious fluid management -Minimize nephrotoxic agents if possible 5. Dysphagia on tube feeds 6. Anemia -Monitor 7. Ventilator dependent respiratory failure -Ventilator management and pulmonary toilet 8. Abnormal lipase and ca19-9 s/p ercp 04/30 with stricture and sphincterotomy -repeat ercp per gi held 04/27 acute strokes -trend 9. Dilated cardiomyopathy with congestive heart failure and coronary artery d isease with history of hypertension -Cardiac optimization -Judicious fluid management -Electrolyte optimization Thank you. Patient seen and examined in collaboration with Dr. Chet Melvin. Subjective 24 Hr Interval Summary Min temp. Intermittent tachycardia. No labored breathing, congested cough, arrhythmias, vomiting, diarrhea, hematuria. Exam/Review of Systems Vital Signs Vitals Vital Signs Date Temp Pulse Resp B/P (MAP) Pulse Ox O2 O2 Flow FiO2 Time Delivery Rate 05/14/18 130 09:12 05/14/18 99.7 09:02 05/14/18 30 08:30 05/14/18 32 121/90 97 07:57 (100) 05/12/18 Mechanical 15:55 Ventilator Intake and Output 05/13/18 05/13/18 05/14/18 1414:59 22:59 06:59 IntakeIntake Total 943.4 ml 690 ml OutputOutput Total 1000 ml 800 ml BalanceBalance -56.6 ml -110 ml Exam Free Text/Dictation Constitutional: No alert, No oriented Psych: confusion; No nl mood/affect Head: normocephalic Eyes: nl conjunctiva, PERRL; No icteric ENMT: nl lips & teeth, mucosa pink and dry, Neck: supple, jvd (Minimal), other (Trach in place) Respiratory: No congested cough, No labored breathing, No wheezing Cardiovascular: regular rate and rhythm; No edema Gastrointestinal: soft, non-tender, other (PEG); No distended, No rebound or guarding Genitourinary - Male: nl penis Musculoskeletal: No nl gait and stance, No joint tenderness Extremities: edema; No calf tenderness, No tenderness Neurological: No nl mental status, No nl speech, No nl strength Skin: rash or lesions (bilat buttock pressure decubitus wounds min debris/slough, granulating; Lower extremity wounds), ecchymosis; No nl turgor, No diaphoresis Lymph: No nl lymph nodes Results Result Diagram: 05/14/18 0751 05/14/18 0751 AURE ENRIQUEZ NP May 14, 2018 11:31
--- NOTE | 2018-05-14 15:15 | PN ---
Date/Time of Note Date/Time of Note DATE: 05/14/18 TIME: 15:13 Assessment/Plan VTE Prophylaxis Risk score (from Ns)>0 risk: 6 SCD applied (from Ns): Yes Pharmacological prophylaxis: NA/contraindicated Pharm contraindication: low risk/ambulating Lines/Catheters IV Catheter Type (from Nrs): Peripheral IV Urinary Cath still in place: Yes Reason Cath still needed: urinary retention Assessment/Plan Hospital Course 62 y/o with # Oral gingival bleeding likely due to dentures, seen by ENT s/p endoscopy # Sepsis with Fevers with hx Pneumonia +UTI and ? Pancreatitis +multiple wounds, ucx+ lisa, wound cx+ MRSA/ pseudomonas, +resp culture +pseudomonas # Blood loss anemia due to oral gingival bleeding # VDRF # CKD with worsening renal failure>resolved # Metabolic acidosis #DILATED CARDIOMYOPATHY # HX ALCOHOL ABUSE # Multiple wounds > decub # Pancreatitis with elevated Lipase # Enterocoltiis on CT # AMS due to Metabolic encephalopathy with . Possible subacute infarct in the left cerebellar hemisphere and cerebellar peduncle> much improved> now again AMS? encephalopathy> now with new stroke on 05/05/18 #Ongoing fevers likely secondary to UTI/hcap now improved> again with fevers> +psedomonas in sputum has again gram-negative in the urine plan -on amikacin/diflucan - WBC scan neg - fu neuro recs - ERCP cancelled due to new stroke - Family meeting discussed goals of care, again with Dr. Anthony / family coming back, meeting tmw - Heme consult fo anemia? r/o malignancy per heme notes, SPEP also sent - GI prophylaxsis - monitor oral bleeding - labs am - hydralzine prn overall poor progonosis - Result Diagram: 05/14/18 0751 05/14/18 0751 Results 24hrs Laboratory Tests Test 05/13/18 16:44 05/14/18 07:51 05/14/18 11:49 Iron Level 27 L Total Iron Binding Capacity 175 L Percent Iron Saturation 15 L Ferritin 1600.0 H Vitamin B12 Level > 1000 H White Blood Count 9.5 # Red Blood Count 3.14 L Hemoglobin 9.0 L Hematocrit 27.7 L Mean Corpuscular Volume 88.2 Mean Corpuscular Hemoglobin 28.7 L Mean Corpuscular 32.5 Hemoglobin Concent Red Cell Distribution Width 16.4 H Platelet Count 196 Mean Platelet Volume 10.9 H Immature Granulocytes % 0.700 H Neutrophils % Segmented Neutrophils % (Manual) 73 Band Neutrophils % (Manual) 19 H Lymphocytes % Lymphocytes % (Manual) 4 L Monocytes % Monocytes % (Manual) 3 Eosinophils % Basophils % Myelocytes % (Manual) 1 H Nucleated Red Blood Cells % 0.2 H Immature Granulocytes # 0.070 H Neutrophils # Neutrophils # (Manual) 7.1 Band Neutrophils # 1.8 H Lymphocytes (Manual) 0.3 L Lymphocytes # Monocytes # Monocytes # (Manual) 0.2 L Eosinophils # Basophils # Myelocytes # 0.0 Nucleated Red Blood Cells # Toxic Granulation 1+ Platelet Estimate NORMAL Polychromasia 1+ Poikilocytosis 1+ Anisocytosis 2+ Microcytosis 2+ Macrocytosis 1+ Target Cells 1+ Ovalocytes 1+ Sodium Level 140 Potassium Level 4.2 Chloride Level 111 H Carbon Dioxide Level 16 L Anion Gap 13 Blood Urea Nitrogen 20 Creatinine 0.73 Est Glomerular Filtrat > 60 Rate mL/min Glucose Level 102 Calcium Level 8.6 Phosphorus Level 2.7 Magnesium Level 1.8 Lab Scanned Report REFERENCE LAB Subjective 24 Hr Interval Summary Free Text/Dictation fevers yesterday not much response Exam/Review of Systems Exam Vitals Vital Signs Date Temp Pulse Resp B/P (MAP) Pulse Ox O2 O2 Flow FiO2 Time Delivery Rate 05/14/18 99 13:03 05/14/18 98.3 26 111/84 99 11:37 (93) 05/14/18 30 08:30 05/12/18 Mechanical 15:55 Ventilator Intake and Output 05/13/18 05/13/18 05/14/18 1515:00 23:00 07:00 IntakeIntake Total 943.4 ml 690 ml OutputOutput Total 1000 ml 800 ml BalanceBalance -56.6 ml -110 ml Exam Constitutional: frail ENMT: other (tracheostomy) Cardiovascular: regular rate and rhythm Gastrointestinal: soft Genitourinary - Male: other (mullins) Results Results 24hrs Laboratory Tests Test 05/13/18 16:44 05/14/18 07:51 05/14/18 11:49 Iron Level 27 L Total Iron Binding Capacity 175 L Percent Iron Saturation 15 L Ferritin 1600.0 H Vitamin B12 Level > 1000 H White Blood Count 9.5 # Red Blood Count 3.14 L Hemoglobin 9.0 L Hematocrit 27.7 L Mean Corpuscular Volume 88.2 Mean Corpuscular Hemoglobin 28.7 L Mean Corpuscular 32.5 Hemoglobin Concent Red Cell Distribution Width 16.4 H Platelet Count 196 Mean Platelet Volume 10.9 H Immature Granulocytes % 0.700 H Neutrophils % Segmented Neutrophils % (Manual) 73 Band Neutrophils % (Manual) 19 H Lymphocytes % Lymphocytes % (Manual) 4 L Monocytes % Monocytes % (Manual) 3 Eosinophils % Basophils % Myelocytes % (Manual) 1 H Nucleated Red Blood Cells % 0.2 H Immature Granulocytes # 0.070 H Neutrophils # Neutrophils # (Manual) 7.1 Band Neutrophils # 1.8 H Lymphocytes (Manual) 0.3 L Lymphocytes # Monocytes # Monocytes # (Manual) 0.2 L Eosinophils # Basophils # Myelocytes # 0.0 Nucleated Red Blood Cells # Toxic Granulation 1+ Platelet Estimate NORMAL Polychromasia 1+ Poikilocytosis 1+ Anisocytosis 2+ Microcytosis 2+ Macrocytosis 1+ Target Cells 1+ Ovalocytes 1+ Sodium Level 140 Potassium Level 4.2 Chloride Level 111 H Carbon Dioxide Level 16 L Anion Gap 13 Blood Urea Nitrogen 20 Creatinine 0.73 Est Glomerular Filtrat > 60 Rate mL/min Glucose Level 102 Calcium Level 8.6 Phosphorus Level 2.7 Magnesium Level 1.8 Lab Scanned Report REFERENCE LAB Medications Medication Current Medications Collagenase (Santyl) 1 applic DAILY TOP Last administered on 05/14/18 09:03; Admin Dose 1 APPLIC; Start 04/03/18 at 12:00 Lansoprazole (Prevacid) 30 mg HS PO Last administered on 05/13/18 21:07; Admin Dose 30 MG; Start 04/20/18 at 21:00 Fluconazole (Diflucan) 100 mg DAILY PO Last administered on 05/14/18 09:03; Admin Dose 100 MG; Start 04/21/18 at 14:00 Albuterol (Proventil 0.083% (Neb)) 2.5 mg Q3H RESP THERAPY PRN NEB WHEEZING AND SOB; Start 04/30/18 at 19:00 Ascorbic Acid (Vitamin C) 500 mg DAILY GTB Last administered on 05/14/18 09:03; Admin Dose 500 MG; Start 05/04/18 at 09:30 Zinc Sulfate (Zinc Sulfate) 220 mg DAILY GTB Last administered on 05/14/18 09:03; Admin Dose 220 MG; Start 05/04/18 at 09:30 Multivit/Ca Carb/ B Cmplx/FA/Prenat (Sofy-Sandoval) 1 tab DAILY GTB Last administered on 05/14/18 09:03; Admin Dose 1 TAB; Start 05/04/18 at 09:30 Acetaminophen (Tylenol Liquid) 650 mg Q4H PRN GTB MILD PAIN(1-3)OR ELEVATED TEMP Last administered on 05/14/18 07:39; Admin Dose 650 MG; Start 05/04/18 at 09:30 Acetaminophen (Tylenol Supp) 650 mg Q6H PRN [place] temp over 101; Start 05/04/18 at 09:30 Polyethylene Glycol (Miralax) 17 gm DAILY PRN GTB constipation; Start 05/04/18 at 16:00 Hydralazine HCl (Apresoline) 5 mg Q6H PRN IV ELEVATED BLOOD PRESSURE; Start 05/04/18 at 22:30 Aspirin (Aspirin) 81 mg DAILY PO Last administered on 05/14/18 09:02; Admin Dose 81 MG; Start 05/05/18 at 15:00 Atorvastatin Calcium (Lipitor) 10 mg HS PO Last administered on 05/13/18 21:06; Admin Dose 10 MG; Start 05/06/18 at 21:00 Sodium Hypochlorite (Dakin'S (Dilute )) 1 applic BID IRR Last administered on 05/14/18 09:03; Admin Dose 1 APPLIC; Start 05/09/18 at 15:00 Amikacin Sulfate (Amikacin Iv Per Pharmacy) AMIKACIN PER PHARMACY NOTE XX ; Start 05/15/18 at 11:30 Amikacin Sulfate 850 mg/Sodium Chloride 253.4 ml @ 250 mls/hr Q72H IVPB Last administered on 05/13/18 17:51; Admin Dose 250 MLS/HR; Start 05/10/18 at 15:00 Morphine Sulfate (morphine) 5 mg Q4H PRN GTB SEVERE PAIN LEVEL 7-10 Last administered on 05/13/18 08:51; Admin Dose 5 MG; Start 05/11/18 at 14:00 TAMARA GRAJEDA MD May 14, 2018 15:15
--- NOTE | 2018-05-14 15:33 | CONS ---
Assessment/Plan Assessment/Plan Hospital Course (Demo Recall) ID PROGRESS NOTE CURRENT ABX: DAY # => Amikacin#5 + Diflucan s/p Cefepime s/p Doxy s/p Vanco IV + Merrem 05/14/18 0751 05/14/18 0751 24H INTERVAL SUMMARY * Low grade temps 99.9 - 100.4 after 4 days of no fevers--- will repeat UA C&S today - VSS, hemodynamics stable today. The patient is currently in treatment for MDRO PSAR UTI. He also has numerous wound and invasives which all likely contributing to SIRs. * 05/07/18 WBC SCAN: IMPRESSION: No definite abnormal focal areas of increased activity. * Patient is awake, alert, VSS, NAD * Non-communicative w/ Trach to vent, Fi02 30% VSS, MICRO/OTHER * MICRO: * 05/07/18 URINE CX (+)PSAR URINE CULTURE Final Organism 1 PSEUDOMONAS AERUGINOSA COLONY COUNT 10,000 - 20,000 CFU/ml * 05/03/18 TRACH (+)PSAR * 04/29/18 Urine (+)yeast * Blood cultures remain negative. * Urine culture positive for Breanne albicans. * Endotracheal aspirate growing gram-negative rods. * Sacral wound culture growing MRSA, Breanne albicans, enterococcus, gram- negative rods. * Nares swab positive for MRSA * 04/20 + 04/21/18 PENILE DISCHARGE GENITAL CULTURE Final Organism 1 BREANNE ALBICANS QUANTITY SCANT GROWTH Organism 2 PSEUDOMONAS AERUGINOSA QUANTITY SCANT GROWTH P.AERUG P.AERUG M.I.C. RX M.I.C. RX --------- --- --------- --- AMIKACIN <=2 S AZTREONAM I CEFEPIME >=64 R CEFTAZIDIME >=64 R CIPROFLOXACIN >=4 R GENTAMICIN <=1 S LEVOFLOXACIN >=8 R MEROPENEM >32 R TOBRAMYCIN <=1 S PIPERACILLIN/TAZOBACTAM >=128 R PHYSICAL EXAMINATION: GENERAL: Afebrile, VSS HEENT: AT, NC, anicteric NECK: Supple, trach(+) -- secure CHEST: Equal chest rise bilaterally, without dyspnea on observation HEART: Pulse RRR ABDOMEN: Soft / NT EXTREMITIES: Warm, dry SKIN: No rash, no diaphoresis ID ASSESSMENT 62 yo M admit with: 1. s/p Sepsis === SIRS w/ ongoing fevers=> cant r/o malignancy given elevated CA19 and lipase * (+)PSAR UTI + PSAR PNA 2. Possible acute pancreatitis, CT of the abdomen revealed no abscess, no pseudocyst * -on CT scan pancreas is normal * -lipid panel wnl * -CBD 6mm, LFT wnl * -Radiology will not do MRCP because of vent * Possible enterocolitis per CT => s/p ABX including Flagyl 3. HCAP -- (+)PSAR w/Hx of (+)MRSA * CT PULMONARY FINDINGS: There is patchy ground-glass opacification in the right middle lobe and anterior right upper lobe, with peribronchial/tree in bud nodules in the right lower lobe. Peribronchial opacification in the left upper lobe and left lower lobe with atelectasis/consolidation in the left lower lobe. 4. Chronic respiratory failure 5. Hx of cardiomyopathy 6. S/p gingival bleeding w/resultant blood loss anemia 7. Sinusitis = s/p ABX treatment 8. Complex UTI w/penile discharge (+)PSAR * s/p Breanne albicans UTI = s/p Diflucan 9. Sacral decub - polymicrobial pathogens -- has been treated w/prolonged course of ABX * -s/p Debride 04/30/18 10. Abnormal lipase and ca19-9 s/p ercp 04/30 with stricture and sphincterotomy * -repeat ercp per gi held 04/27 acute strokes (+)MRSA Nares -> s/p Vanco IV ABX ALLERGIES: NKDA INVASIVES: PICC, Trach, Peg, FC CURRENT ABX: DAY => Amikacin#5 + Diflucan s/p Cefepime s/p Doxy s/p Vanco IV + Merrem ID RECOMMENDATIONS/PLAN: 1. Continue Amikacin/Diflucan --anticipate 10-14 days for persistent MDRO PSAR UTI / VAP 2. Repeat MRSA nares screen --see if it was eradicated w/prior Rx Vanco IV 3. .Repeat UA C&S today . Consultation Date/Type/Reason Admit Date/Time Mar 31, 2018 at 17:58 Initial Consult Date 04/02/18 Requesting Provider: TAMARA GRAJEDA MD Date/Time of Note DATE: 05/14/18 TIME: 15:28 Exam/Review of Systems Exam Vitals Vital Signs Date Temp Pulse Resp B/P (MAP) Pulse Ox O2 O2 Flow FiO2 Time Delivery Rate 05/14/18 99 13:03 05/14/18 98.3 26 111/84 99 11:37 (93) 05/14/18 30 08:30 05/12/18 Mechanical 15:55 Ventilator Intake and Output 05/13/18 05/13/18 05/14/18 1515:00 23:00 07:00 IntakeIntake Total 943.4 ml 690 ml OutputOutput Total 1000 ml 800 ml BalanceBalance -56.6 ml -110 ml Results Result Diagram: 05/14/18 0751 05/14/18 0751 Results 24hrs Laboratory Tests Test 05/13/18 16:44 05/14/18 07:51 05/14/18 11:49 Iron Level 27 L Total Iron Binding Capacity 175 L Percent Iron Saturation 15 L Ferritin 1600.0 H Vitamin B12 Level > 1000 H White Blood Count 9.5 # Red Blood Count 3.14 L Hemoglobin 9.0 L Hematocrit 27.7 L Mean Corpuscular Volume 88.2 Mean Corpuscular Hemoglobin 28.7 L Mean Corpuscular 32.5 Hemoglobin Concent Red Cell Distribution Width 16.4 H Platelet Count 196 Mean Platelet Volume 10.9 H Immature Granulocytes % 0.700 H Neutrophils % Segmented Neutrophils % (Manual) 73 Band Neutrophils % (Manual) 19 H Lymphocytes % Lymphocytes % (Manual) 4 L Monocytes % Monocytes % (Manual) 3 Eosinophils % Basophils % Myelocytes % (Manual) 1 H Nucleated Red Blood Cells % 0.2 H Immature Granulocytes # 0.070 H Neutrophils # Neutrophils # (Manual) 7.1 Band Neutrophils # 1.8 H Lymphocytes (Manual) 0.3 L Lymphocytes # Monocytes # Monocytes # (Manual) 0.2 L Eosinophils # Basophils # Myelocytes # 0.0 Nucleated Red Blood Cells # Toxic Granulation 1+ Platelet Estimate NORMAL Polychromasia 1+ Poikilocytosis 1+ Anisocytosis 2+ Microcytosis 2+ Macrocytosis 1+ Target Cells 1+ Ovalocytes 1+ Sodium Level 140 Potassium Level 4.2 Chloride Level 111 H Carbon Dioxide Level 16 L Anion Gap 13 Blood Urea Nitrogen 20 Creatinine 0.73 Est Glomerular Filtrat > 60 Rate mL/min Glucose Level 102 Calcium Level 8.6 Phosphorus Level 2.7 Magnesium Level 1.8 Lab Scanned Report REFERENCE LAB Medications Medication Current Medications Collagenase (Santyl) 1 applic DAILY TOP Last administered on 05/14/18 09:03; Admin Dose 1 APPLIC; Start 04/03/18 at 12:00 Lansoprazole (Prevacid) 30 mg HS PO Last administered on 05/13/18 21:07; Admin Dose 30 MG; Start 04/20/18 at 21:00 Fluconazole (Diflucan) 100 mg DAILY PO Last administered on 05/14/18 09:03; Admin Dose 100 MG; Start 04/21/18 at 14:00 Albuterol (Proventil 0.083% (Neb)) 2.5 mg Q3H RESP THERAPY PRN NEB WHEEZING AND SOB; Start 04/30/18 at 19:00 Ascorbic Acid (Vitamin C) 500 mg DAILY GTB Last administered on 05/14/18 0 9:03; Admin Dose 500 MG; Start 05/04/18 at 09:30 Zinc Sulfate (Zinc Sulfate) 220 mg DAILY GTB Last administered on 05/14/18 09:03; Admin Dose 220 MG; Start 05/04/18 at 09:30 Multivit/Ca Carb/ B Cmplx/FA/Prenat (Sofy-Sandoval) 1 tab DAILY GTB Last administered on 05/14/18 09:03; Admin Dose 1 TAB; Start 05/04/18 at 09:30 Acetaminophen (Tylenol Liquid) 650 mg Q4H PRN GTB MILD PAIN(1-3)OR ELEVATED TEMP Last administered on 05/14/18 07:39; Admin Dose 650 MG; Start 05/04/18 at 09:30 Acetaminophen (Tylenol Supp) 650 mg Q6H PRN [place] temp over 101; Start 05/04/18 at 09:30 Polyethylene Glycol (Miralax) 17 gm DAILY PRN GTB constipation; Start 05/04/18 at 16:00 Hydralazine HCl (Apresoline) 5 mg Q6H PRN IV ELEVATED BLOOD PRESSURE; Start 05/04/18 at 22:30 Aspirin (Aspirin) 81 mg DAILY PO Last administered on 05/14/18 09:02; Admin Dose 81 MG; Start 05/05/18 at 15:00 Atorvastatin Calcium (Lipitor) 10 mg HS PO Last administered on 05/13/18 21:06; Admin Dose 10 MG; Start 05/06/18 at 21:00 Sodium Hypochlorite (Dakin'S (Dilute )) 1 applic BID IRR Last administered on 05/14/18 09:03; Admin Dose 1 APPLIC; Start 05/09/18 at 15:00 Amikacin Sulfate (Amikacin Iv Per Pharmacy) AMIKACIN PER PHARMACY NOTE XX ; Start 05/15/18 at 11:30 Amikacin Sulfate 850 mg/Sodium Chloride 253.4 ml @ 250 mls/hr Q72H IVPB Last administered on 05/13/18at 17:51; Admin Dose 250 MLS/HR; Start 05/10/18 at 15:00 Morphine Sulfate (morphine) 5 mg Q4H PRN GTB SEVERE PAIN LEVEL 7-10 Last administered on 05/13/18 08:51; Admin Dose 5 MG; Start 05/11/18 at 14:00 ODIN ALBERTS NP May 14, 2018 15:33
--- NOTE | 2018-05-14 16:59 | CONS ---
Assessment/Plan Assessment/Plan Hospital Course 62 M c/ Hx of methamphetamine/ETOH abuse c/b cirrhosis and dilated cardiomyopathy... and other comorbidities, admitted for evaluation of gingival bleeding..and fevers.... Neurology is again consulted to evaluate encephalopathy and assess prognosis for meaningful neurologic recovery.. The clinical picture again suggests an acute toxic-metabolic (?on chronic) encephalopathy. Repeat Head CT shows a new R temporal infarction..which may be a contributor.. Recent MRI brain was notable for a subacute cerebellar infarction, though it is limited by motion.. Recent EEG was without epileptiform activity. His prognosis for meaningful neurologic recovery remains guarded. P: Agree w/ asa daily for secondary stroke prevention, as medically able (severe anemia noted...); LDL is at goal... Limit sedating medications where possible PT/OT/ST as able Continued medical management and supportive care per primary Will follow Consultation Date/Type/Reason Admit Date/Time Mar 31, 2018 at 17:58 Type of Consult Neurology Requesting Provider: TAMARA GRAJEDA MD Date/Time of Note DATE: 05/14/18 TIME: 16:59 24 HR Interval Summary Free Text/Dictation Continues telemetry monitoring. No acute events or changes in pt condition reported. Exam Vital Signs Vitals Vital Signs Date Temp Pulse Resp B/P (MAP) Pulse Ox O2 O2 Flow FiO2 Time Delivery Rate 05/14/18 80 16:33 05/14/18 98.9 26 135/99 100 15:40 (111) 05/14/18 30 08:30 05/12/18 Mechanical 15:55 Ventilator Intake and Output 05/13/18 05/13/18 05/14/18 1515:00 23:00 07:00 IntakeIntake Total 943.4 ml 690 ml OutputOutput Total 1000 ml 800 ml BalanceBalance -56.6 ml -110 ml Exam PE: Gen Appearance: No Apparent Distress HEENT: Trach Cardiovascular: Regular rate Abdomen: Soft Extremities: Dry NE: The patient was obtunded and nonverbal. Cranial nerve examination was limited by mental status. Pupils were equal and reactive to light. There was no afferent pupillary defect. Funduscopic examination was limited. Face was grossly symmetric, w/ present corneal and cough reflexes. Tone was increased. Muscle bulk was reduced. I did not see fasciculations. The patient withdrew to noxious stimulation x 4..and localized his LUE to noxio us stimuli... Coordination and gait testing was limited by mental status. Arm and leg reflexes were symmetric. Maguire's sign was absent. Plantar responses were flexor. ANURAG PRESSLEY NP May 14, 2018 16:59
[2018-05-14] MEDS: LANSOPRAZOLE 30 MG CAP PO SCH (20:28)
[2018-05-14] MEDS: ATORVASTATIN 10 MG TAB PO SCH (20:28)
[2018-05-14] MEDS: morphine LIQ (10 MG/5 ML) CUP GTB PRN (20:29)
[2018-05-15] VITALS (22 sets, daily range): BP systolic 103–147; BP diastolic 79–104; PULSE 86–105; RESP 19–55
[2018-05-15] MEDS: ASCORBIC ACID 500 MG TAB GTB SCH (08:34)
[2018-05-15] MEDS: MULTIVIT/CA CARB/B CMPLX/FA TAB GTB SCH (08:34)
[2018-05-15] MEDS: ZINC SULFATE 220 MG CAP GTB SCH (08:34)
[2018-05-15] MEDS: ASPIRIN 81 MG TAB PO SCH (08:34)
[2018-05-15] MEDS: FLUCONAZOLE 100 MG TAB PO SCH (08:34)
[2018-05-15] MEDS: ACETAMINOPHEN 650MG/20.3ML CUP GTB PRN ×2 (08:40→21:58)
--- NOTE | 2018-05-15 09:57 | PN ---
Date/Time of Note Date/Time of Note DATE: 05/15/18 TIME: 09:52 Assessment/Plan Lines/Catheters IV Catheter Type (from Nrs): Peripheral IV Schwartz in Place (from Nrs): Yes Assessment/Plan Chief Complaint/Hosp Course 1. Decubitus pressure ulcers with necrosis s/p exc milena 04/30 -cont Local care -Offload -Nutritional optimization -Vitamin C -Short-term zinc -further debridement prn if family chooses to continue with present level of care- to return today, possible meeting today 2. Functional quadriplegia with history of stroke secondary to drug and alcohol abuse, chronic encephalopathy with acute nonhemorrhagic infarcts seen on recent ct -per neuro -Medical optimization as above -pending final decision re goals of care 3. Poor quality of life -s/p family meeting >pending final decision re goals of care- to return on today 4. Chronic renal disease -Judicious fluid management -Minimize nephrotoxic agents if possible 5. Dysphagia on tube feeds 6. Anemia -Monitor 7. Ventilator dependent respiratory failure -Ventilator management and pulmonary toilet 8. Abnormal lipase and ca19-9 s/p ercp 04/30 with stricture and sphincterotomy -repeat ercp per gi held 04/27 acute strokes -trend 9. Dilated cardiomyopathy with congestive heart failure and coronary artery disease with history of hypertension -Cardiac optimization -Judicious fluid management -Electrolyte optimization Thank you. Patient seen and examined in collaboration with Dr. Chet Melvin. Subjective 24 Hr Interval Summary appears comfortable. Nonverbal indicators of pain not present. Intermittent tachycardia and tachypnea. No labored breathing, congested cough, vomiting, diarrhea, sz, rash. Exam/Review of Systems Vital Signs Vitals Vital Signs Date Temp Pulse Resp B/P (MAP) Pulse Ox O2 O2 Flow FiO2 Time Delivery Rate 05/15/18 100 26 100 30 09:21 05/15/18 99.5 08:40 05/15/18 142/96 07:48 (111) 05/15/18 Mechanical 04:12 Ventilator Intake and Output 05/14/18 05/14/18 05/15/18 1515:00 23:00 07:00 IntakeIntake Total 690 ml 660 ml OutputOutput Total 1000 ml 500 ml BalanceBalance -310 ml 160 ml Exam Free Text/Dictation Constitutional: No alert, No oriented Psych: confusion; No nl mood/affect Head: normocephalic Eyes: nl conjunctiva, PERRL; No icteric ENMT: nl lips & teeth, mucosa pink and dry, Neck: supple, jvd (Minimal), other (Trach in place) Respiratory: No congested cough, No labored breathing, No wheezing Cardiovascular: regular rate and rhythm; No edema Gastrointestinal: soft, non-tender, other (PEG); No distended, No rebound or guarding Genitourinary - Male: nl penis Musculoskeletal: No nl gait and stance, No joint tenderness Extremities: edema; No calf tenderness, No tenderness Neurological: No nl mental status, No nl speech, No nl strength Skin: rash or lesions (bilat buttock pressure decubitus wounds min debris/slough, granulating; Lower extremity wounds), ecchymosis; No nl turgor, No diaphoresis Lymph: No nl lymph nodes Results Result Diagram: 05/14/18 0751 05/14/18 0751 AURE ENRIQUEZ NP May 15, 2018 09:57
--- NOTE | 2018-05-15 10:16 | CONS ---
Assessment/Plan Assessment/Plan Hospital Course (Demo Recall) ID PROGRESS NOTE CURRENT ABX: DAY # => Amikacin#6 + Diflucan s/p Cefepime/ Doxy s/p Vanco IV + Merrem 05/14/18 0751 05/14/18 0751 24H INTERVAL SUMMARY * Not much change from yesterday -- TMax today 99.6 --- Low grade temps 99.9 - 100.4 after 4 days of no fevers. * UA C&S ordered for yesterday -- UA not posted and C&S in process - VSS, hemo dynamics stable today. * The patient is currently in treatment for MDRO PSAR UTI. He also has numerous wound and invasives which all likely contributing to SIRs. * 05/07/18 WBC SCAN: IMPRESSION: No definite abnormal focal areas of increased activity. * Patient is awake, alert, VSS, NAD * Non-communicative w/ Trach to vent, Fi02 30% VSS, MICRO/OTHER * MICRO: * 05/07/18 URINE CX (+)PSAR URINE CULTURE Final Organism 1 PSEUDOMONAS AERUGINOSA COLONY COUNT 10,000 - 20,000 CFU/ml * 05/03/18 TRACH (+)PSAR * 04/29/18 Urine (+)yeast * Blood cultures remain negative. * Urine culture positive for Breanne albicans. * Endotracheal aspirate growing gram-negative rods. * Sacral wound culture growing MRSA, Breanne albicans, enterococcus, gram- negative rods. * Nares swab positive for MRSA * 04/20 + 04/21/18 PENILE DISCHARGE GENITAL CULTURE Final Organism 1 BREANNE ALBICANS QUANTITY SCANT GROWTH Organism 2 PSEUDOMONAS AERUGINOSA QUANTITY SCANT GROWTH P.AERUG P.AERUG M.I.C. RX M.I.C. RX --------- --- --------- --- AMIKACIN <=2 S AZTREONAM I CEFEPIME >=64 R CEFTAZIDIME >=64 R CIPROFLOXACIN >=4 R GENTAMICIN <=1 S LEVOFLOXACIN >=8 R MEROPENEM >32 R TOBRAMYCIN <=1 S PIPERACILLIN/TAZOBACTAM >=128 R PHYSICAL EXAMINATION: GENERAL: Afebrile, VSS HEENT: AT, NC, anicteric NECK: Supple, trach(+) -- secure CHEST: Equal chest rise bilaterally, without dyspnea on observation HEART: Pulse RRR ABDOMEN: Soft / NT EXTREMITIES: Warm, dry SKIN: No rash, no diaphoresis ID ASSESSMENT 62 yo M admit with: 1. s/p Sepsis === SIRS w/ ongoing fevers=> cant r/o malignancy given elevated CA19 and lipase * (+)PSAR UTI + PSAR PNA 2. Possible acute pancreatitis, CT of the abdomen revealed no abscess, no pseudocyst * -on CT scan pancreas is normal * -lipid panel wnl * -CBD 6mm, LFT wnl * -Radiology will not do MRCP because of vent * Possible enterocolitis per CT => s/p ABX including Flagyl 3. HCAP -- (+)PSAR w/Hx of (+)MRSA * CT PULMONARY FINDINGS: There is patchy ground-glass opacification in the right middle lobe and anterior right upper lobe, with peribronchial/tree in bud nodules in the right lower lobe. Peribronchial opacification in the left upper lobe and left lower lobe with atelectasis/consolidation in the left lower lobe . 4. Chronic respiratory failure 5. Hx of cardiomyopathy 6. S/p gingival bleeding w/resultant blood loss anemia 7. Sinusitis = s/p ABX treatment 8. Complex UTI w/penile discharge (+)PSAR * s/p Breanne albicans UTI = s/p Diflucan 9. Sacral decub - polymicrobial pathogens -- has been treated w/prolonged course of ABX * -s/p Debride 04/30/18 10. Abnormal lipase and ca19-9 s/p ercp 04/30 with stricture and sphincterotomy * -repeat ercp per gi held 04/27 acute strokes (+)MRSA Nares -> s/p Vanco IV ABX ALLERGIES: NKDA INVASIVES: PICC, Trach, Peg, FC CURRENT ABX: DAY => Amikacin#6 + Diflucan s/p Cefepime s/p Doxy s/p Vanco IV + Merrem ID RECOMMENDATIONS/PLAN: 1. Continue Amikacin/Diflucan --anticipate 10-14 days for persistent MDRO PSAR UTI / VAP 2. Repeat MRSA nares screen --see if it was eradicated w/prior Rx Vanco IV 3. .Repeat UA C&S -- sent yesterday results pending . Consultation Date/Type/Reason Admit Date/Time Mar 31, 2018 at 17:58 Initial Consult Date 04/02/18 Requesting Provider: TAMARA GRAJEDA MD Date/Time of Note DATE: 05/15/18 TIME: 10:11 Exam/Review of Systems Exam Vitals Vital Signs Date Temp Pulse Resp B/P (MAP) Pulse Ox O2 O2 Flow FiO2 Time Delivery Rate 05/15/18 100 26 100 30 09:21 05/15/18 99.5 08:40 05/15/18 142/96 07:48 (111) 05/15/18 Mechanical 04:12 Ventilator Intake and Output 05/14/18 05/14/18 05/15/18 1515:00 23:00 07:00 IntakeIntake Total 690 ml 660 ml OutputOutput Total 1000 ml 500 ml BalanceBalance -310 ml 160 ml Results Result Diagram: 05/14/18 0751 05/14/18 0751 Results 24hrs Laboratory Tests Test 05/14/18 11:49 Lab Scanned Report REFERENCE LAB Medications Medication Current Medications Collagenase (Santyl) 1 applic DAILY TOP Last administered on 05/14/18at 09:03; Admin Dose 1 APPLIC; Start 04/03/18 at 12:00 Lansoprazole (Prevacid) 30 mg HS PO Last administered on 05/14/18at 20:28; Admin Dose 30 MG; Start 04/20/18 at 21:00 Fluconazole (Diflucan) 100 mg DAILY PO Last administered on 05/15/18at 08:34; Admin Dose 100 MG; Start 04/21/18 at 14:00 Albuterol (Proventil 0.083% (Neb)) 2.5 mg Q3H RESP THERAPY PRN NEB WHEEZING AND SOB; Start 04/30/18 at 19:00 Ascorbic Acid (Vitamin C) 500 mg DAILY GTB Last administered on 05/15/18at 0 8:34; Admin Dose 500 MG; Start 05/04/18 at 09:30 Zinc Sulfate (Zinc Sulfate) 220 mg DAILY GTB Last administered on 05/15/18 08:34; Admin Dose 220 MG; Start 05/04/18 at 09:30 Multivit/Ca Carb/ B Cmplx/FA/Prenat (Sofy-Sandoval) 1 tab DAILY GTB Last administered on 05/15/18 08:34; Admin Dose 1 TAB; Start 05/04/18 at 09:30 Acetaminophen (Tylenol Liquid) 650 mg Q4H PRN GTB MILD PAIN(1-3)OR ELEVATED TEMP Last administered on 05/15/18 08:40; Admin Dose 650 MG; Start 05/04/18 at 09:30 Acetaminophen (Tylenol Supp) 650 mg Q6H PRN [place] temp over 101; Start 05/04/18 at 09:30 Polyethylene Glycol (Miralax) 17 gm DAILY PRN GTB constipation; Start 05/04/18 at 16:00 Hydralazine HCl (Apresoline) 5 mg Q6H PRN IV ELEVATED BLOOD PRESSURE; Start 05/04/18 at 22:30 Aspirin (Aspirin) 81 mg DAILY PO Last administered on 05/15/18 08:34; Admin Dose 81 MG; Start 05/05/18 at 15:00 Atorvastatin Calcium (Lipitor) 10 mg HS PO Last administered on 05/14/18 20:28; Admin Dose 10 MG; Start 05/06/18 at 21:00 Sodium Hypochlorite (Dakin'S (Dilute )) 1 applic BID IRR Last administered on 05/14/18 20:29; Admin Dose 1 APPLIC; Start 05/09/18 at 15:00 Amikacin Sulfate (Amikacin Iv Per Pharmacy) AMIKACIN PER PHARMACY NOTE XX ; Start 05/15/18 at 11:30 Amikacin Sulfate 850 mg/Sodium Chloride 253.4 ml @ 250 mls/hr Q72H IVPB Last administered on 05/13/18 17:51; Admin Dose 250 MLS/HR; Start 05/10/18 at 15:00 Morphine Sulfate (morphine) 5 mg Q4H PRN GTB SEVERE PAIN LEVEL 7-10 Last administered on 05/14/18 20:29; Admin Dose 5 MG; Start 05/11/18 at 14:00 ODIN ALBERTS NP May 15, 2018 10:16
[2018-05-15] MEDS: SODIUM HYPOCHLORITE (1/40) 1 APPLIC BTL IRR SCH ×2 (10:46→21:58)
[2018-05-15] MEDS: BALSAM PERU/CASTOR OIL 60 GM TUBE TOP SCH ×2 (10:46→21:57)
[2018-05-15] MEDS: COLLAGENASE 5 GM (UD JAR) TOP SCH (10:46)
--- NOTE | 2018-05-15 10:52 | PN ---
Date/Time of Note Date/Time of Note DATE: 05/15/18 TIME: 10:52 Assessment/Plan VTE Prophylaxis Risk score (from Ns)>0 risk: 7 SCD applied (from Ns): Yes Pharmacological prophylaxis: NA/contraindicated Pharm contraindication: low risk/ambulating Lines/Catheters IV Catheter Type (from Nrsg): Saline Lock Urinary Cath still in place: Yes Reason Cath still needed: urinary retention Assessment/Plan Hospital Course 62 y/o with # Oral gingival bleeding likely due to dentures, seen by ENT s/p endoscopy # Sepsis with Fevers with hx Pneumonia +UTI and ? Pancreatitis +multiple wounds, ucx+ lisa, wound cx+ MRSA/ pseudomonas, +resp culture +pseudomonas # Blood loss anemia due to oral gingival bleeding # VDRF # CKD with worsening renal failure>resolved # Metabolic acidosis #DILATED CARDIOMYOPATHY # HX ALCOHOL ABUSE # Multiple wounds > decub # Pancreatitis with elevated Lipase # Enterocoltiis on CT # AMS due to Metabolic encephalopathy with . Possible subacute infarct in the left cerebellar hemisphere and cerebellar peduncle> much improved> now again AMS? encephalopathy> now with new stroke on 05/05/18 #Ongoing fevers likely secondary to UTI/hcap now improved> again with fevers> +psedomonas in sputum has again gram-negative in the urine plan -on amikacin/diflucan - WBC scan neg - fu neuro recs - ERCP cancelled due to new stroke - Family meeting discussed goals of care, again with Dr. Anthony / family coming back, meeting today?? - Heme consult fo anemia? r/o malignancy per heme notes, SPEP also sent - GI prophylaxsis - monitor oral bleeding - labs am - hydralzine prn overall poor progonosis - Result Diagram: 05/14/18 0751 05/14/18 0751 Results 24hrs Laboratory Tests Test 05/14/18 11:49 Lab Scanned Report REFERENCE LAB Subjective 24 Hr Interval Summary Free Text/Dictation family meeting today no new events Exam/Review of Systems Exam Vitals Vital Signs Date Temp Pulse Resp B/P (MAP) Pulse Ox O2 O2 Flow FiO2 Time Delivery Rate 05/15/18 98.4 09:25 05/15/18 100 26 100 30 09:21 05/15/18 142/96 07:48 (111) 05/15/18 Mechanical 04:12 Ventilator Intake and Output 05/14/18 05/14/18 05/15/18 1515:00 23:00 07:00 IntakeIntake Total 690 ml 660 ml OutputOutput Total 1000 ml 500 ml BalanceBalance -310 ml 160 ml Exam Constitutional: frail ENMT: other (tracheostomy) Cardiovascular: regular rate and rhythm Gastrointestinal: soft Genitourinary - Male: other (mullins) Results Results Results 24hrs Laboratory Tests Test 05/14/18 11:49 Lab Scanned Report REFERENCE LAB Medications Medication Current Medications Collagenase (Santyl) 1 applic DAILY TOP Last administered on 05/15/18 10:46; Admin Dose 1 APPLIC; Start 04/03/18 at 12:00 Lansoprazole (Prevacid) 30 mg HS PO Last administered on 05/14/18 20:28; Admin Dose 30 MG; Start 04/20/18 at 21:00 Fluconazole (Diflucan) 100 mg DAILY PO Last administered on 05/15/18 08:34; Admin Dose 100 MG; Start 04/21/18 at 14:00 Albuterol (Proventil 0.083% (Neb)) 2.5 mg Q3H RESP THERAPY PRN NEB WHEEZING AND SOB; Start 04/30/18 at 19:00 Ascorbic Acid (Vitamin C) 500 mg DAILY GTB Last administered on 05/15/18 08:34; Admin Dose 500 MG; Start 05/04/18 at 09:30 Zinc Sulfate (Zinc Sulfate) 220 mg DAILY GTB Last administered on 05/15/18 08:34; Admin Dose 220 MG; Start 05/04/18 at 09:30 Multivit/Ca Carb/ B Cmplx/FA/Prenat (Sofy-Sandoval) 1 tab DAILY GTB Last administered on 05/15/18 08:34; Admin Dose 1 TAB; Start 05/04/18 at 09:30 Acetaminophen (Tylenol Liquid) 650 mg Q4H PRN GTB MILD PAIN(1-3)OR ELEVATED TEMP Last administered on 05/15/18 08:40; Admin Dose 650 MG; Start 05/04/18 at 09:30 Acetaminophen (Tylenol Supp) 650 mg Q6H PRN [place] temp over 101; Start 05/04/18 at 09:30 Polyethylene Glycol (Miralax) 17 gm DAILY PRN GTB constipation; Start 05/04/18 at 16:00 Hydralazine HCl (Apresoline) 5 mg Q6H PRN IV ELEVATED BLOOD PRESSURE; Start 05/04/18 at 22:30 Aspirin (Aspirin) 81 mg DAILY PO Last administered on 05/15/18at 08:34; Admin Dose 81 MG; Start 05/05/18 at 15:00 Atorvastatin Calcium (Lipitor) 10 mg HS PO Last administered on 05/14/18 20:28; Admin Dose 10 MG; Start 05/06/18 at 21:00 Sodium Hypochlorite (Dakin'S (Dilute )) 1 applic BID IRR Last administered on 05/15/18at 10:46; Admin Dose 1 APPLIC; Start 05/09/18 at 15:00 Amikacin Sulfate (Amikacin Iv Per Pharmacy) AMIKACIN PER PHARMACY NOTE XX ; Start 05/15/18 at 11:30 Amikacin Sulfate 850 mg/Sodium Chloride 253.4 ml @ 250 mls/hr Q72H IVPB Last administered on 05/13/18at 17:51; Admin Dose 250 MLS/HR; Start 05/10/18 at 15:00 Morphine Sulfate (morphine) 5 mg Q4H PRN GTB SEVERE PAIN LEVEL 7-10 Last administered on 05/14/18 20:29; Admin Dose 5 MG; Start 05/11/18 at 14:00 TAMARA GRAJEDA MD May 15, 2018 10:52
[2018-05-15] MEDS ORDERED: AMIKACIN IV PER PHARMACY XX SCH (11:30)
--- NOTE | 2018-05-15 12:34 | CONS ---
Assessment/Plan Assessment/Plan Hospital Course (Demo Recall) 62 yo with multiple medical problems and very complicated hospital course with multiple infectious complications on antibiotics, cardiomyopathy, ETOH abuse history, pancreatitis, Encephalopathy secondary to anoxic brain injury. We are asked to see for anemia and elevated Ca 19-9 #PANCREATITIS this is likely what is causing the elevated ca 19-9. 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 done being followed by Dr Peña # anemia I suspect his anemia is due to anemia of chronic disease/inflammation no evidence of nutritional deficiencies also check SPEP and light chains transfuse if hgb <7 1 u prbcs transfuse plt if ,10K or actively bleeding Consultation Date/Type/Reason Admit Date/Time Mar 31, 2018 at 17:58 Initial Consult Date 04/29/18 Requesting Provider: TAMARA GRAJEDA MD Date/Time of Note DATE: 05/15/18 TIME: 12:34 24 HR Interval Summary Free Text/Dictation await family meeting and hospice discussion Subjective hx not possible: pt non-verbal Exam/Review of Systems Exam Vitals Vital Signs Date Temp Pulse Resp B/P (MAP) Pulse Ox O2 O2 Flow FiO2 Time Delivery Rate 05/15/18 97.6 93 20 118/87 99 11:50 (97) 05/15/18 30 11:20 05/15/18 Mechanical 04:12 Ventilator Intake and Output 05/14/18 05/14/18 05/15/18 1515:00 23:00 07:00 IntakeIntake Total 690 ml 660 ml OutputOutput Total 1000 ml 500 ml BalanceBalance -310 ml 160 ml Constitutional: frail Results Result Diagram: 05/14/18 0751 05/14/18 0751 Medications Medication Current Medications Collagenase (Santyl) 1 applic DAILY TOP Last administered on 05/15/18at 10:46; Admin Dose 1 APPLIC; Start 04/03/18 at 12:00 Lansoprazole (Prevacid) 30 mg HS PO Last administered on 05/14/18at 20:28; Admin Dose 30 MG; Start 04/20/18 at 21:00 Fluconazole (Diflucan) 100 mg DAILY PO Last administered on 05/15/18at 08:34; Admin Dose 100 MG; Start 04/21/18 at 14:00 Albuterol (Proventil 0.083% (Neb)) 2.5 mg Q3H RESP THERAPY PRN NEB WHEEZING AND SOB; Start 04/30/18 at 19:00 Ascorbic Acid (Vitamin C) 500 mg DAILY GTB Last administered on 05/15/18 08:34; Admin Dose 500 MG; Start 05/04/18 at 09:30 Zinc Sulfate (Zinc Sulfate) 220 mg DAILY GTB Last administered on 05/15/18 08:34; Admin Dose 220 MG; Start 05/04/18 at 09:30 Multivit/Ca Carb/ B Cmplx/FA/Prenat (Sofy-Sandoval) 1 tab DAILY GTB Last administered on 05/15/18 08:34; Admin Dose 1 TAB; Start 05/04/18 at 09:30 Acetaminophen (Tylenol Liquid) 650 mg Q4H PRN GTB MILD PAIN(1-3)OR ELEVATED TEMP Last administered on 05/15/18 08:40; Admin Dose 650 MG; Start 05/04/18 at 09:30 Acetaminophen (Tylenol Supp) 650 mg Q6H PRN [place] temp over 101; Start 05/04/18 at 09:30 Polyethylene Glycol (Miralax) 17 gm DAILY PRN GTB constipation; Start 05/04/18 at 16:00 Hydralazine HCl (Apresoline) 5 mg Q6H PRN IV ELEVATED BLOOD PRESSURE; Start 05/04/18 at 22:30 Aspirin (Aspirin) 81 mg DAILY PO Last administered on 05/15/18 08:34; Admin Dose 81 MG; Start 05/05/18 at 15:00 Atorvastatin Calcium (Lipitor) 10 mg HS PO Last administered on 05/14/18at 20:28; Admin Dose 10 MG; Start 05/06/18 at 21:00 Sodium Hypochlorite (Dakin'S (Dilute )) 1 applic BID IRR Last administered on 05/15/18at 10:46; Admin Dose 1 APPLIC; Start 05/09/18 at 15:00 Amikacin Sulfate (Amikacin Iv Per Pharmacy) AMIKACIN PER PHARMACY NOTE XX ; Start 05/15/18 at 11:30 Amikacin Sulfate 850 mg/Sodium Chloride 253.4 ml @ 250 mls/hr Q72H IVPB Last administered on 05/13/18 17:51; Admin Dose 250 MLS/HR; Start 05/10/18 at 15:00 Morphine Sulfate (morphine) 5 mg Q4H PRN GTB SEVERE PAIN LEVEL 7-10 Last administered on 05/14/18 20:29; Admin Dose 5 MG; Start 05/11/18 at 14:00 JEY GRIJALVA May 15, 2018 12:34
--- NOTE | 2018-05-15 15:17 | CONS ---
Assessment/Plan Assessment/Plan Assessment/Plan (Daily) Assessment/Plan Hospital Course (Demo Recall) 62 male with excessively bleeding gingival tissue and severe anemia 1. Severe acute on chronic anemia likely due to blood loss from gingival bleeding -improved 3. Chronic liver disease, alcohol related 4. Mild coagulopathy 5. Elevated lipase with mildly elevated CA 19-9 -on CT scan pancreas is normal -lipid panel wnl -CBD 6mm, LFT wnl -Radiology will not do MRCP because of vent 6. Chronic kidney disease -BUN/interior design coordinator wnl 7. Encephalopathy secondary to anoxic brain injury -acute on chronic? -Ct shows acute ischemic infarct, pt is on ASA 8. H/o duodenal ulcer 9. Complex UTI with lisa albicans, s/p diflucan -RESOLVED 10. 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 Persistent fevers -99.2 this am 12. Abnormal LFTs -liver disease -trending down 13. Acute non hemorrhagic infarcts noted on Brain CT Plan: Dr Pelayo met with two family members, spouse was out of town. Family members will speak with pt's spouse regarding hospice care but for now, ERCP on hold until returns on Sunday. If decides to continue care we will plan on repeat ERCP toward end of week. Monitor LFT and WBC Monitor closely for GI bleeding and HH, Awaiting final decision from the family Consultation Date/Type/Reason Admit Date/Time Mar 31, 2018 at 17:58 Initial Consult Date 04/02/18 Requesting Provider: TAMARA GRAJEDA MD Date/Time of Note DATE: 05/15/18 TIME: 15:17 24 HR Interval Summary Subjective hx not possible: pt non-verbal Exam/Review of Systems Exam Vitals Vital Signs Date Temp Pulse Resp B/P (MAP) Pulse Ox O2 O2 Flow FiO2 Time Delivery Rate 05/15/18 92 55 100 30 13:56 05/15/18 97.6 118/87 11:50 (97) 05/15/18 Mechanical 04:12 Ventilator Intake and Output 05/14/18 05/14/18 05/15/18 1515:00 23:00 07:00 IntakeIntake Total 690 ml 660 ml OutputOutput Total 1000 ml 500 ml BalanceBalance -310 ml 160 ml ENMT: nl external ears & nose, nl lips & teeth, nl nasal mucosa & septum Neck: supple, non-tender Cardiovascular: regular rate and rhythm, nl pulses Extremities: normal pulses Results Result Diagram: 05/14/18 0751 05/14/18 0751 Medications Medication Current Medications Collagenase (Santyl) 1 applic DAILY TOP Last administered on 05/15/18at 10:46; Admin Dose 1 APPLIC; Start 04/03/18 at 12:00 Lansoprazole (Prevacid) 30 mg HS PO Last administered on 05/14/18 20:28; Admin Dose 30 MG; Start 04/20/18 at 21:00 Fluconazole (Diflucan) 100 mg DAILY PO Last administered on 05/15/18 08:34; Admin Dose 100 MG; Start 04/21/18 at 14:00 Albuterol (Proventil 0.083% (Neb)) 2.5 mg Q3H RESP THERAPY PRN NEB WHEEZING AND SOB; Start 04/30/18 at 19:00 Ascorbic Acid (Vitamin C) 500 mg DAILY GTB Last administered on 05/15/18 08:34; Admin Dose 500 MG; Start 05/04/18 at 09:30 Zinc Sulfate (Zinc Sulfate) 220 mg DAILY GTB Last administered on 05/15/18 08:34; Admin Dose 220 MG; Start 05/04/18 at 09:30 Multivit/Ca Carb/ B Cmplx/FA/Prenat (Sofy-Sandoval) 1 tab DAILY GTB Last administered on 05/15/18 08:34; Admin Dose 1 TAB; Start 05/04/18 at 09:30 Acetaminophen (Tylenol Liquid) 650 mg Q4H PRN GTB MILD PAIN(1-3)OR ELEVATED TEMP Last administered on 05/15/18at 08:40; Admin Dose 650 MG; Start 05/04/18 at 09:30 Acetaminophen (Tylenol Supp) 650 mg Q6H PRN [place] temp over 101; Start 05/04/18 at 09:30 Polyethylene Glycol (Miralax) 17 gm DAILY PRN GTB constipation; Start 05/04/18 at 16:00 Hydralazine HCl (Apresoline) 5 mg Q6H PRN IV ELEVATED BLOOD PRESSURE; Start 05/04/18 at 22:30 Aspirin (Aspirin) 81 mg DAILY PO Last administered on 05/15/18 08:34; Admin Dose 81 MG; Start 05/05/18 at 15:00 Atorvastatin Calcium (Lipitor) 10 mg HS PO Last administered on 05/14/18at 20:28; Admin Dose 10 MG; Start 05/06/18 at 21:00 Sodium Hypochlorite (Dakin'S (Dilute )) 1 applic BID IRR Last administered on 05/15/18at 10:46; Admin Dose 1 APPLIC; Start 05/09/18 at 15:00 Amikacin Sulfate (Amikacin Iv Per Pharmacy) AMIKACIN PER PHARMACY NOTE XX ; Start 05/15/18 at 11:30 Amikacin Sulfate 850 mg/Sodium Chloride 253.4 ml @ 250 mls/hr Q72H IVPB Last administered on 05/13/18at 17:51; Admin Dose 250 MLS/HR; Start 05/10/18 at 15:00 Morphine Sulfate (morphine) 5 mg Q4H PRN GTB SEVERE PAIN LEVEL 7-10 Last administered on 05/14/18at 20:29; Admin Dose 5 MG; Start 05/11/18 at 14:00 RASHEEDA MEJIA MD May 15, 2018 15:17
--- NOTE | 2018-05-15 15:41 | CONS ---
Assessment/Plan Assessment/Plan Hospital Course 62 M c/ Hx of methamphetamine/ETOH abuse c/b cirrhosis and dilated cardiomyopathy... and other comorbidities, admitted for evaluation of gingival bleeding..and fevers.... Neurology is again consulted to evaluate encephalopathy and assess prognosis for meaningful neurologic recovery.. The clinical picture again suggests an acute toxic-metabolic (?on chronic) encephalopathy. Repeat Head CT shows a new R temporal infarction..which may be a contributor.. Recent MRI brain was notable for a subacute cerebellar infarction, though it is limited by motion.. Recent EEG was without epileptiform activity. His prognosis for meaningful neurologic recovery remains guarded. P: Agree w/ asa daily for secondary stroke prevention, as medically able (severe anemia noted...); LDL is at goal... Limit sedating medications where possible PT/OT/ST as able Continued medical management and supportive care per primary Will follow Consultation Date/Type/Reason Admit Date/Time Mar 31, 2018 at 17:58 Type of Consult Neurology Reason for Consultation encephalopathy; prognosis.. Requesting Provider: TAMARA GRAJEDA MD Date/Time of Note DATE: 05/15/18 TIME: 15:40 24 HR Interval Summary Free Text/Dictation Continues acute care Exam Vital Signs Vitals Vital Signs Date Temp Pulse Resp B/P (MAP) Pulse Ox O2 O2 Flow FiO2 Time Delivery Rate 05/15/18 91 100 30 15:33 05/15/18 55 13:56 05/15/18 97.6 118/87 11:50 (97) 05/15/18 Mechanical 04:12 Ventilator Intake and Output 05/14/18 05/14/18 05/15/18 1515:00 23:00 07:00 IntakeIntake Total 690 ml 660 ml OutputOutput Total 1000 ml 500 ml BalanceBalance -310 ml 160 ml Exam PE: Gen Appearance: No Apparent Distress HEENT: Trach Abdomen: Soft Extremities: Dry NE: The patient was obtunded and nonverbal. Cranial nerve examination was limited by mental status. Pupils were equal and reactive to light. There was no afferent pupillary defect. Funduscopic examination was limited. Face was grossly symmetric, w/ present corneal and cough reflexes. Tone was normal. Muscle bulk was normal. I did not see fasciculations. The patient withdrew to noxious stimulation x 4. Coordination and gait testing was limited by mental status. Arm and leg reflexes were within normal limits and symmetric. Maguire's sign was absent. Plantar responses were flexor. MANDO PINO May 15, 2018 15:41
[2018-05-15] MEDS: LANSOPRAZOLE 30 MG CAP PO SCH (21:58)
[2018-05-15] MEDS: ATORVASTATIN 10 MG TAB PO SCH (21:58)
[2018-05-15] MEDS: morphine LIQ (10 MG/5 ML) CUP GTB PRN (21:58)
[2018-05-16] VITALS (25 sets, daily range): BP systolic 95–153; BP diastolic 74–98; PULSE 90–130; RESP 20–35
[2018-05-16] MEDS: ZINC SULFATE 220 MG CAP GTB SCH (08:55)
[2018-05-16] MEDS: ASCORBIC ACID 500 MG TAB GTB SCH (08:55)
[2018-05-16] MEDS: FLUCONAZOLE 100 MG TAB PO SCH (08:55)
[2018-05-16] MEDS: ASPIRIN 81 MG TAB PO SCH (08:55)
[2018-05-16] MEDS: MULTIVIT/CA CARB/B CMPLX/FA TAB GTB SCH (08:55)
[2018-05-16] MEDS: COLLAGENASE 5 GM (UD JAR) TOP SCH (08:56)
[2018-05-16] MEDS: BALSAM PERU/CASTOR OIL 60 GM TUBE TOP SCH ×2 (08:56→21:05)
[2018-05-16] MEDS: SODIUM HYPOCHLORITE (1/40) 1 APPLIC BTL IRR SCH ×2 (08:56→21:04)
--- NOTE | 2018-05-16 10:23 | PN ---
Date/Time of Note Date/Time of Note DATE: 05/16/18 TIME: 10:20 Assessment/Plan Lines/Catheters IV Catheter Type (from Nrs): Saline Lock Schwartz in Place (from Nrs): Yes Assessment/Plan Chief Complaint/Hosp Course 1. Decubitus pressure ulcers with necrosis s/p exc milena 04/30 -cont Local care -Offload -Nutritional optimization -Vitamin C -Short-term zinc -further debridement prn if family chooses to continue with present level of care- reportedly to come on Sunday for goals of care discussion 2. Functional quadriplegia with history of stroke secondary to drug and alcohol abuse, chronic encephalopathy with acute nonhemorrhagic infarcts seen on recent ct -per neuro -Medical optimization as above -pending final decision re goals of care 3. Poor quality of life -s/p family meeting >pending final decision re goals of care with 4. Chronic renal disease -Judicious fluid management -Minimize nephrotoxic agents if possible 5. Dysphagia on tube feeds 6. Anemia -Monitor 7. Ventilator dependent respiratory failure -Ventilator management and pulmonary toilet 8. Abnormal lipase and ca19-9 s/p ercp 04/30 with stricture and sphincterotomy -repeat ercp per gi held 04/27 acute strokes -trend 9. Dilated cardiomyopathy with congestive heart failure and coronary artery disease with history of hypertension -Cardiac optimization -Judicious fluid management -Electrolyte optimization Thank you. Patient seen and examined in collaboration with Dr. Chet Melvin. Subjective 24 Hr Interval Summary Tachycardia. Appears comfortable. No fevers, congested cough, labored breathing, arrhythmia, seizure, rash, diarrhea, hematuria. + Bowel function. Exam/Review of Systems Vital Signs Vitals Vital Signs Date Temp Pulse Resp B/P (MAP) Pulse Ox O2 O2 Flow FiO2 Time Delivery Rate 05/16/18 130 23 100 30 09:36 05/16/18 98.0 134/97 Mechanical 07:54 (109) Ventilator Intake and Output 05/15/18 05/15/18 05/16/18 1515:00 23:00 07:00 IntakeIntake Total 550 ml OutputOutput Total 300 ml 600 ml BalanceBalance 250 ml -600 ml Exam Free Text/Dictation Constitutional: No alert, No oriented Psych: confusion; No nl mood/affect Head: normocephalic Eyes: nl conjunctiva, PERRL; No icteric ENMT: nl lips & teeth, mucosa pink and dry, Neck: supple, jvd (Minimal), other (Trach in place) Respiratory: No congested cough, No labored breathing, No wheezing Cardiovascular: regular rate and rhythm; No edema Gastrointestinal: soft, non-tender, other (PEG); No distended, No rebound or guarding Genitourinary - Male: nl penis Musculoskeletal: No nl gait and stance, No joint tenderness Extremities: edema; No calf tenderness, No tenderness Neurological: No nl mental status, No nl speech, No nl strength Skin: rash or lesions (bilat buttock pressure decubitus wounds min debris/slough, granulating, scant drainage, no odor; Lower extremity wounds), ecchymosis; No nl turgor, No diaphoresis Lymph: No nl lymph nodes Results Result Diagram: 05/14/18 0751 05/14/18 0751 AURE ENRIQUEZ NP May 16, 2018 10:23
[2018-05-16] MEDS: morphine LIQ (10 MG/5 ML) CUP GTB PRN (10:35)
--- NOTE | 2018-05-16 12:54 | CONS ---
Assessment/Plan Assessment/Plan Hospital Course (Demo Recall) ID PROGRESS NOTE CURRENT ABX: DAY # => Amikacin#7 + Diflucan s/p Cefepime/ Doxy s/p Vanco IV + Merrem 05/14/18 0751 05/14/18 0751 24H INTERVAL SUMMARY * Low grade temps resolved over past 26H -- he had 2-3 days of low grade temps prior to today * 05/16/18 UA (-)Lek Esterase, no yeast, few bacteria * He is completing ABX course for complex UTI w/hx of purulent discharge from penile meatus * VSS, hemodynamics stable today. * The patient is currently in treatment for MDRO PSAR UTI. He also has numerous wound and invasives which all likely contributing to SIRs. * 05/07/18 WBC SCAN: IMPRESSION: No definite abnormal focal areas of increased activity. * Patient is awake, alert, VSS, NAD * Non-communicative w/ Trach to vent, Fi02 30% VSS, MICRO/OTHER * MICRO: * 05/07/18 URINE CX (+)PSAR URINE CULTURE Final Organism 1 PSEUDOMONAS AERUGINOSA COLONY COUNT 10,000 - 20,000 CFU/ml * 05/03/18 TRACH (+)PSAR * 04/29/18 Urine (+)yeast * Blood cultures remain negative. * Urine culture positive for Breanne albicans. * Endotracheal aspirate growing gram-negative rods. * Sacral wound culture growing MRSA, Breanne albicans, enterococcus, gram- negative rods. * Nares swab positive for MRSA * 04/20 + 04/21/18 PENILE DISCHARGE GENITAL CULTURE Final Organism 1 BREANNE ALBICANS QUANTITY SCANT GROWTH Organism 2 PSEUDOMONAS AERUGINOSA QUANTITY SCANT GROWTH P.AERUG P.AERUG M.I.C. RX M.I.C. RX --------- --- --------- --- AMIKACIN <=2 S AZTREONAM I CEFEPIME >=64 R CEFTAZIDIME >=64 R CIPROFLOXACIN >=4 R GENTAMICIN <=1 S LEVOFLOXACIN >=8 R MEROPENEM >32 R TOBRAMYCIN <=1 S PIPERACILLIN/TAZOBACTAM >=128 R PHYSICAL EXAMINATION: GENERAL: Afebrile, VSS HEENT: AT, NC, anicteric NECK: Supple, trach(+) -- secure CHEST: Equal chest rise bilaterally, without dyspnea on observation HEART: Pulse RRR ABDOMEN: Soft / NT EXTREMITIES: Warm, dry SKIN: No rash, no diaphoresis ID ASSESSMENT 62 yo M admit with: 1. s/p Sepsis === SIRS w/ ongoing fevers=> cant r/o malignancy given elevated CA19 and lipase * (+)PSAR UTI + PSAR PNA 2. Possible acute pancreatitis, CT of the abdomen revealed no abscess, no pseudocyst * -on CT scan pancreas is normal * -lipid panel wnl * -CBD 6mm, LFT wnl * -Radiology will not do MRCP because of vent * Possible enterocolitis per CT => s/p ABX including Flagyl 3. HCAP -- (+)PSAR w/Hx of (+)MRSA * CT PULMONARY FINDINGS: There is patchy ground-glass opacification in the right middle lobe and anterior right upper lobe, with peribronchial/tree in bud nodules in the right lower lobe. Peribronchial opacification in the left upper lobe and left lower lobe with atelectasis/consolidation in the left lower lobe. 4. Chronic respiratory failure 5. Hx of cardiomyopathy 6. S/p gingival bleeding w/resultant blood loss anemia 7. Sinusitis = s/p ABX treatment 8. Complex UTI w/penile discharge (+)PSAR * s/p Breanne albicans UTI = s/p Diflucan 9. Sacral decub - polymicrobial pathogens -- has been treated w/prolonged course of ABX * -s/p Debride 04/30/18 10. Abnormal lipase and ca19-9 s/p ercp 04/30 with stricture and sphincterotomy * -repeat ercp per gi held 2/ acute strokes (+)MRSA Nares -> s/p Vanco IV ABX ALLERGIES: NKDA INVASIVES: PICC, Trach, Peg, FC CURRENT ABX: DAY => Amikacin#6 + Diflucan s/p Cefepime s/p Doxy s/p Vanco IV + Merrem ID RECOMMENDATIONS/PLAN: 1. Continue Amikacin/Diflucan --anticipate 10-14 days for persistent MDRO PSAR UTI / VAP Low grade temps resolved over past 26H -- he had 2-3 days of low grade temps prior to today * 05/16/18 UA (-)Lek Esterase, no yeast, few bacteria * He is completing ABX course for complex UTI w/hx of purulent discharge from penile meatus . Consultation Date/Type/Reason Admit Date/Time Mar 31, 2018 at 17:58 Initial Consult Date 04/02/18 Requesting Provider: TAMARA GRAJEDA MD Date/Time of Note DATE: 05/16/18 TIME: 12:49 Exam/Review of Systems Exam Vitals Vital Signs Date Temp Pulse Resp B/P (MAP) Pulse Ox O2 O2 Flow FiO2 Time Delivery Rate 05/16/18 116 12:36 05/16/18 28 98 30 11:15 05/16/18 98.0 128/87 Mechanical 11:08 (101) Ventilator Intake and Output 05/15/18 05/15/18 05/16/18 1515:00 23:00 07:00 IntakeIntake Total 550 ml OutputOutput Total 300 ml 600 ml BalanceBalance 250 ml -600 ml Results Result Diagram: 05/14/18 0751 05/14/18 0751 Results 24hrs Laboratory Tests Test 05/16/18 06:20 Urine Color YELLOW Urine Clarity CLEAR Urine pH 6.0 Urine Specific [place] 1.014 Urine Ketones NEGATIVE Urine Nitrite NEGATIVE Urine Bilirubin NEGATIVE Urine Urobilinogen 2+ H Urine Leukocyte Esterase NEGATIVE Urine Microscopic RBC 78 H Urine Microscopic WBC 5 Urine Squamous Epithelial Cells FEW Urine Bacteria FEW A Urine Hemoglobin 2+ H Urine Glucose NEGATIVE Urine Total Protein NEGATIVE Medications Medication Current Medications Collagenase (Santyl) 1 applic DAILY TOP Last administered on 05/16/18at 08:56; Admin Dose 1 APPLIC; Start 04/03/18 at 12:00 Lansoprazole (Prevacid) 30 mg HS PO Last administered on 05/15/18at 21:58; Admin Dose 30 MG; Start 04/20/18 at 21:00 Fluconazole (Diflucan) 100 mg DAILY PO Last administered on 05/16/18at 08:55; Admin Dose 100 MG; Start 04/21/18 at 14:00 Albuterol (Proventil 0.083% (Neb)) 2.5 mg Q3H RESP THERAPY PRN NEB WHEEZING AND SOB; Start 04/30/18 at 19:00 Ascorbic Acid (Vitamin C) 500 mg DAILY GTB Last administered on 05/16/18at 08:55; Admin Dose 500 MG; Start 05/04/18 at 09:30 Zinc Sulfate (Zinc Sulfate) 220 mg DAILY GTB Last administered on 05/16/18 08:55; Admin Dose 220 MG; Start 05/04/18 at 09:30 Multivit/Ca Carb/ B Cmplx/FA/Prenat (Sofy-Sandoval) 1 tab DAILY GTB Last admi nistered on 05/16/18 08:55; Admin Dose 1 TAB; Start 05/04/18 at 09:30 Acetaminophen (Tylenol Liquid) 650 mg Q4H PRN GTB MILD PAIN(1-3)OR ELEVATED TEMP Last administered on 05/15/18at 21:58; Admin Dose 650 MG; Start 05/04/18 at 09:30 Acetaminophen (Tylenol Supp) 650 mg Q6H PRN [place] temp over 101; Start 05/04/18 at 09:30 Polyethylene Glycol (Miralax) 17 gm DAILY PRN GTB constipation; Start 05/04/18 at 16:00 Hydralazine HCl (Apresoline) 5 mg Q6H PRN IV ELEVATED BLOOD PRESSURE; Start 05/04/18 at 22:30 Aspirin (Aspirin) 81 mg DAILY PO Last administered on 05/16/18 08:55; Admin Dose 81 MG; Start 05/05/18 at 15:00 Atorvastatin Calcium (Lipitor) 10 mg HS PO Last administered on 05/15/18 21:58; Admin Dose 10 MG; Start 05/06/18 at 21:00 Sodium Hypochlorite (Dakin'S (Dilute )) 1 applic BID IRR Last administered on 05/16/18 08:56; Admin Dose 1 APPLIC; Start 05/09/18 at 15:00 Amikacin Sulfate (Amikacin Iv Per Pharmacy) AMIKACIN PER PHARMACY NOTE XX ; Start 05/15/18 at 11:30 Amikacin Sulfate 850 mg/Sodium Chloride 253.4 ml @ 250 mls/hr Q72H IVPB Last administered on 05/13/18at 17:51; Admin Dose 250 MLS/HR; Start 05/10/18 at 15:00 Morphine Sulfate (morphine) 5 mg Q4H PRN GTB SEVERE PAIN LEVEL 7-10 Last administered on 05/16/18at 10:35; Admin Dose 5 MG; Start 05/11/18 at 14:00 ODIN ALBERTS NP May 16, 2018 12:54
--- NOTE | 2018-05-16 15:24 | CONS ---
Assessment/Plan Assessment/Plan Hospital Course 62 M c/ Hx of methamphetamine/ETOH abuse c/b cirrhosis and dilated cardiomyopathy... and other comorbidities, admitted for evaluation of gingival bleeding..and fevers.... Neurology is again consulted to evaluate encephalopathy and assess prognosis for meaningful neurologic recovery.. The clinical picture again suggests an acute toxic-metabolic (?on chronic) encephalopathy. Repeat Head CT shows a new R temporal infarction..which may be a contributor.. Recent MRI brain was notable for a subacute cerebellar infarction, though it is limited by motion.. Recent EEG was without epileptiform activity. His prognosis for meaningful neurologic recovery remains guarded. P: Agree w/ asa daily for secondary stroke prevention, as medically able (severe anemia noted...); LDL is at goal... Limit sedating medications where possible PT/OT/ST as able Continued medical management and supportive care per primary Will follow Consultation Date/Type/Reason Admit Date/Time Mar 31, 2018 at 17:58 Type of Consult Neurology Requesting Provider: TAMARA GRAJEDA MD Date/Time of Note DATE: 05/16/18 TIME: 15:22 24 HR Interval Summary Free Text/Dictation Continues telemetry monitoring. No acute events reported. Pt remains unable to meaningfully contribute. Subjective hx not possible: pt non-verbal Exam Vital Signs Vitals Vital Signs Date Temp Pulse Resp B/P (MAP) Pulse Ox O2 O2 Flow FiO2 Time Delivery Rate 05/16/18 122 29 100 30 13:45 05/16/18 98.0 128/87 Mechanical 11:08 (101) Ventilator Intake and Output 05/15/18 05/15/18 05/16/18 1414:59 22:59 06:59 IntakeIntake Total 550 ml OutputOutput Total 300 ml 600 ml BalanceBalance 250 ml -600 ml Exam PE: Gen Appearance: No Apparent Distress HEENT: Trach Abdomen: Soft Extremities: Dry NE: The patient was obtunded and nonverbal. Cranial nerve examination was limited by mental status. Pupils were equal and reactive to light. There was no afferent pupillary defect. Funduscopic examination was limited. Face was grossly symmetric, w/ present corneal and cough reflexes. Tone was normal. Muscle bulk was normal. I did not see fasciculations. The patient withdrew to noxious stimulation x 4. Coordination and gait testing was limited by mental status. Arm and leg reflexes were within normal limits and symmetric. Maguire's sign was absent. Plantar responses were flexor. ANURAG PRESSLEY NP May 16, 2018 15:24
--- NOTE | 2018-05-16 15:40 | PN ---
Date/Time of Note Date/Time of Note DATE: 05/16/18 TIME: 15:39 Assessment/Plan VTE Prophylaxis Risk score (from Ns)>0 risk: 6 SCD applied (from Ns): Yes Pharmacological prophylaxis: NA/contraindicated Pharm contraindication: low risk/ambulating Lines/Catheters IV Catheter Type (from Nrs): Saline Lock Urinary Cath still in place: Yes Reason Cath still needed: urinary retention Assessment/Plan Hospital Course 62 y/o with # Oral gingival bleeding likely due to dentures, seen by ENT s/p endoscopy # Sepsis with Fevers with hx Pneumonia +UTI and ? Pancreatitis +multiple wounds, ucx+ lisa, wound cx+ MRSA/ pseudomonas, +resp culture +pseudomonas # Blood loss anemia due to oral gingival bleeding # VDRF # CKD with worsening renal failure>resolved # Metabolic acidosis #DILATED CARDIOMYOPATHY # HX ALCOHOL ABUSE # Multiple wounds > decub # Pancreatitis with elevated Lipase # Enterocoltiis on CT # AMS due to Metabolic encephalopathy with . Possible subacute infarct in the left cerebellar hemisphere and cerebellar peduncle> much improved> now again AMS? encephalopathy> now with new stroke on 05/05/18 #Ongoing fevers likely secondary to UTI/hcap now improved> again with fevers> +psedomonas in sputum has again gram-negative in the urine plan -on amikacin/diflucan - WBC scan neg - fu neuro recs - ERCP cancelled due to new stroke - Family meeting discussed goals of care, again with Dr. Anthony / family coming back, meeting today tmw, returning back - Heme consult fo anemia? r/o malignancy per heme notes, SPEP also sent - GI prophylaxsis - monitor oral bleeding - labs am - hydralzine prn overall poor progonosis - Result Diagram: 05/14/18 0751 05/14/18 0751 Results 24hrs Laboratory Tests Test 05/16/18 06:20 Urine Color YELLOW Urine Clarity CLEAR Urine pH 6.0 Urine Specific [place] 1.014 Urine Ketones NEGATIVE Urine Nitrite NEGATIVE Urine Bilirubin NEGATIVE Urine Urobilinogen 2+ H Urine Leukocyte Esterase NEGATIVE Urine Microscopic RBC 78 H Urine Microscopic WBC 5 Urine Squamous Epithelial Cells FEW Urine Bacteria FEW A Urine Hemoglobin 2+ H Urine Glucose NEGATIVE Urine Total Protein NEGATIVE Subjective 24 Hr Interval Summary Free Text/Dictation Pt has sinus tacycardia Exam/Review of Systems Exam Vitals Vital Signs Date Temp Pulse Resp B/P (MAP) Pulse Ox O2 O2 Flow FiO2 Time Delivery Rate 05/16/18 122 29 100 30 13:45 05/16/18 98.0 128/87 Mechanical 11:08 (101) Ventilator Intake and Output 05/15/18 05/15/18 05/16/18 1515:00 23:00 07:00 IntakeIntake Total 550 ml OutputOutput Total 300 ml 600 ml BalanceBalance 250 ml -600 ml Exam Constitutional: frail ENMT: other (tracheostomy) Cardiovascular: regular rate and rhythm Gastrointestinal: soft Genitourinary - Male: other (mullins) Results Results 24hrs Laboratory Tests Test 05/16/18 06:20 Urine Color YELLOW Urine Clarity CLEAR Urine pH 6.0 Urine Specific [place] 1.014 Urine Ketones NEGATIVE Urine Nitrite NEGATIVE Urine Bilirubin NEGATIVE Urine Urobilinogen 2+ H Urine Leukocyte Esterase NEGATIVE Urine Microscopic RBC 78 H Urine Microscopic WBC 5 Urine Squamous Epithelial Cells FEW Urine Bacteria FEW A Urine Hemoglobin 2+ H Urine Glucose NEGATIVE Urine Total Protein NEGATIVE Medications Medication Current Medications Collagenase (Santyl) 1 applic DAILY TOP Last administered on 05/16/18at 08:56; Admin Dose 1 APPLIC; Start 04/03/18 at 12:00 Lansoprazole (Prevacid) 30 mg HS PO Last administered on 05/15/18at 21:58; Admin Dose 30 MG; Start 04/20/18 at 21:00 Fluconazole (Diflucan) 100 mg DAILY PO Last administered on 05/16/18at 08:55; Admin Dose 100 MG; Start 04/21/18 at 14:00 Albuterol (Proventil 0.083% (Neb)) 2.5 mg Q3H RESP THERAPY PRN NEB WHEEZING AND SOB; Start 04/30/18 at 19:00 Ascorbic Acid (Vitamin C) 500 mg DAILY GTB Last administered on 05/16/18at 08:55; Admin Dose 500 MG; Start 05/04/18 at 09:30 Zinc Sulfate (Zinc Sulfate) 220 mg DAILY GTB Last administered on 05/16/18at 08:55; Admin Dose 220 MG; Start 05/04/18 at 09:30 Multivit/Ca Carb/ B Cmplx/FA/Prenat (Sofy-Sandoval) 1 tab DAILY GTB Last administered on 05/16/18at 08:55; Admin Dose 1 TAB; Start 05/04/18 at 09:30 Acetaminophen (Tylenol Liquid) 650 mg Q4H PRN GTB MILD PAIN(1-3)OR ELEVATED TEMP Last administered on 05/15/18 21:58; Admin Dose 650 MG; Start 05/04/18 at 09:30 Acetaminophen (Tylenol Supp) 650 mg Q6H PRN [place] temp over 101; Start 05/04/18 at 09:30 Polyethylene Glycol (Miralax) 17 gm DAILY PRN GTB constipation; Start 05/04/18 at 16:00 Hydralazine HCl (Apresoline) 5 mg Q6H PRN IV ELEVATED BLOOD PRESSURE; Start 05/04/18 at 22:30 Aspirin (Aspirin) 81 mg DAILY PO Last administered on 05/16/18 08:55; Admin Dose 81 MG; Start 05/05/18 at 15:00 Atorvastatin Calcium (Lipitor) 10 mg HS PO Last administered on 05/15/18 21:58; Admin Dose 10 MG; Start 05/06/18 at 21:00 Sodium Hypochlorite (Dakin'S (Dilute )) 1 applic BID IRR Last administered on 05/16/18 08:56; Admin Dose 1 APPLIC; Start 05/09/18 at 15:00 Amikacin Sulfate (Amikacin Iv Per Pharmacy) AMIKACIN PER PHARMACY NOTE XX ; Start 05/15/18 at 11:30 Amikacin Sulfate 850 mg/Sodium Chloride 253.4 ml @ 250 mls/hr Q72H IVPB Last administered on 05/13/18 17:51; Admin Dose 250 MLS/HR; Start 05/10/18 at 15:00 Morphine Sulfate (morphine) 5 mg Q4H PRN GTB SEVERE PAIN LEVEL 7-10 Last administered on 05/16/18 10:35; Admin Dose 5 MG; Start 05/11/18 at 14:00 TAMARA GRAJEDA MD May 16, 2018 15:40
[2018-05-16] MEDS ORDERED: SOD CHLORIDE 0.9% 500 ML IV ONE (16:00)
[2018-05-16] MEDS: AMIKACIN IVPB SCH (17:06)
[2018-05-16] MEDS: SOD CHLORIDE 0.9% IVPB SCH (17:06)
[2018-05-16] MEDS: LANSOPRAZOLE 30 MG CAP PO SCH (21:04)
[2018-05-16] MEDS: ATORVASTATIN 10 MG TAB PO SCH (21:04)
[2018-05-17] VITALS (23 sets, daily range): BP systolic 114–139; BP diastolic 77–93; PULSE 98–130; RESP 20–35
[2018-05-17] MEDS: ACETAMINOPHEN 650MG/20.3ML CUP GTB PRN ×2 (01:11→21:50)
--- NOTE | 2018-05-17 08:37 | CONS ---
Assessment/Plan Assessment/Plan Hospital Course (Demo Recall) 62 yo with multiple medical problems and very complicated hospital course with multiple infectious complications on antibiotics, cardiomyopathy, ETOH abuse history, pancreatitis, Encephalopathy secondary to anoxic brain injury. We are asked to see for anemia and elevated Ca 19-9 #PANCREATITIS this is likely what is causing the elevated ca 19-9. 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 further aggressive GI w/u and ERCP on hold until goals of care discussions made with . # anemia I suspect his anemia is due to anemia of chronic disease/inflammation no evidence of nutritional deficiencies SPEP does not show M spike transfuse if hgb <7 1 u prbcs transfuse plt if ,10K or actively bleeding will follow periodically, please call with acute questions Thank you Consultation Date/Type/Reason Admit Date/Time Mar 31, 2018 at 17:58 Initial Consult Date 04/29/18 Requesting Provider: TAMARA GRAJEDA MD Date/Time of Note DATE: 05/17/18 TIME: 08:36 24 HR Interval Summary Free Text/Dictation no new events Exam/Review of Systems Exam Vitals Vital Signs Date Temp Pulse Resp B/P (MAP) Pulse Ox O2 O2 Flow FiO2 Time Delivery Rate 05/17/18 98.0 102 32 114/91 97 08:21 (99) 05/17/18 30 07:25 05/16/18 Mechanical 15:59 Ventilator Intake and Output 05/16/18 05/16/18 05/17/18 1515:00 23:00 07:00 IntakeIntake Total 660 ml 685 ml 620 ml OutputOutput Total 675 ml 650 ml 750 ml BalanceBalance -15 ml 35 ml -130 ml Constitutional: non-verbal Musculoskeletal: nl extremities to inspection Results Result Diagram: 05/17/18 0644 05/17/18 0644 Results 24hrs Laboratory Tests Test 05/17/18 06:44 White Blood Count 10.0 Red Blood Count 2.99 L Hemoglobin 8.6 L Hematocrit 26.0 L Mean Corpuscular Volume 87.0 Mean Corpuscular Hemoglobin 28.8 L Mean Corpuscular Hemoglobin Concent 33.1 Red Cell Distribution Width 16.2 H Platelet Count 209 Mean Platelet Volume 10.0 Immature Granulocytes % 1.400 H Neutrophils % 80.6 H Lymphocytes % 7.1 L Monocytes % 8.8 Eosinophils % 1.7 Basophils % 0.4 Nucleated Red Blood Cells % 0.2 H Immature Granulocytes # 0.140 H Neutrophils # 8.0 H Lymphocytes # 0.7 L Monocytes # 0.9 Eosinophils # 0.2 Basophils # 0.0 Nucleated Red Blood Cells # 0.0 Sodium Level 141 Potassium Level 3.7 Chloride Level 113 H Carbon Dioxide Level 18 L Anion Gap 10 Blood Urea Nitrogen 28 H Creatinine 0.90 Est Glomerular Filtrat Rate mL/min > 60 Glucose Level 108 Calcium Level 8.6 Phosphorus Level 3.5 Magnesium Level 2.0 Medications Medication Current Medications Collagenase (Santyl) 1 applic DAILY TOP Last administered on 05/16/18 08:56; Admin Dose 1 APPLIC; Start 04/03/18 at 12:00 Lansoprazole (Prevacid) 30 mg HS PO Last administered on 05/16/18 21:04; Admin Dose 30 MG; Start 04/20/18 at 21:00 Fluconazole (Diflucan) 100 mg DAILY PO Last administered on 05/16/18 08:55; Admin Dose 100 MG; Start 04/21/18 at 14:00 Albuterol (Proventil 0.083% (Neb)) 2.5 mg Q3H RESP THERAPY PRN NEB WHEEZING AND SOB; Start 04/30/18 at 19:00 Ascorbic Acid (Vitamin C) 500 mg DAILY GTB Last administered on 05/16/18 08:55; Admin Dose 500 MG; Start 05/04/18 at 09:30 Zinc Sulfate (Zinc Sulfate) 220 mg DAILY GTB Last administered on 05/16/18 08:55; Admin Dose 220 MG; Start 05/04/18 at 09:30 Multivit/Ca Carb/ B Cmplx/FA/Prenat (Sofy-Sandoval) 1 tab DAILY GTB Last administered on 05/16/18 08:55; Admin Dose 1 TAB; Start 05/04/18 at 09:30 Acetaminophen (Tylenol Liquid) 650 mg Q4H PRN GTB MILD PAIN(1-3)OR ELEVATED TEMP Last administered on 05/17/18 01:11; Admin Dose 650 MG; Start 05/04/18 at 09:30 Acetaminophen (Tylenol Supp) 650 mg Q6H PRN [place] temp over 101; Start 05/04/18 at 09:30 Polyethylene Glycol (Miralax) 17 gm DAILY PRN GTB constipation; Start 05/04/18 at 16:00 Hydralazine HCl (Apresoline) 5 mg Q6H PRN IV ELEVATED BLOOD PRESSURE; Start 05/04/18 at 22:30 Aspirin (Aspirin) 81 mg DAILY PO Last administered on 05/16/18 08:55; Admin Dose 81 MG; Start 05/05/18 at 15:00 Atorvastatin Calcium (Lipitor) 10 mg HS PO Last administered on 05/16/18 21:04; Admin Dose 10 MG; Start 05/06/18 at 21:00 Sodium Hypochlorite (Dakin'S (Dilute )) 1 applic BID IRR Last administered on 05/16/18at 21:04; Admin Dose 1 APPLIC; Start 05/09/18 at 15:00 Amikacin Sulfate (Amikacin Iv Per Pharmacy) AMIKACIN PER PHARMACY NOTE XX ; Start 05/15/18 at 11:30 Amikacin Sulfate 850 mg/Sodium Chloride 253.4 ml @ 250 mls/hr Q72H IVPB Last administered on 05/16/18 17:06; Admin Dose 250 MLS/HR; Start 05/10/18 at 15:00 Morphine Sulfate (morphine) 5 mg Q4H PRN GTB SEVERE PAIN LEVEL 7-10 Last administered on 05/16/18at 10:35; Admin Dose 5 MG; Start 05/11/18 at 14:00 JEY GRIJALVA May 17, 2018 08:37
[2018-05-17] MEDS: FLUCONAZOLE 100 MG TAB PO SCH (08:50)
[2018-05-17] MEDS: ASPIRIN 81 MG TAB PO SCH (08:50)
[2018-05-17] MEDS: ASCORBIC ACID 500 MG TAB GTB SCH (08:50)
[2018-05-17] MEDS: ZINC SULFATE 220 MG CAP GTB SCH (08:50)
[2018-05-17] MEDS: COLLAGENASE 5 GM (UD JAR) TOP SCH (08:50)
[2018-05-17] MEDS: BALSAM PERU/CASTOR OIL 60 GM TUBE TOP SCH ×2 (08:51→21:51)
[2018-05-17] MEDS: MULTIVIT/CA CARB/B CMPLX/FA TAB GTB SCH (08:51)
[2018-05-17] MEDS: SODIUM HYPOCHLORITE (1/40) 1 APPLIC BTL IRR SCH ×2 (08:51→21:50)
--- NOTE | 2018-05-17 10:18 | CONS ---
Assessment/Plan Assessment/Plan Assessment/Plan (Daily) Hospital Course (Demo Recall) 62 male with excessively bleeding gingival tissue and severe anemia 1. Severe acute on chronic anemia likely due to blood loss from gingival bleeding -improved 3. Chronic liver disease, alcohol related 4. Mild coagulopathy 5. Elevated lipase with mildly elevated CA 19-9 -on CT scan pancreas is normal -lipid panel wnl -CBD 6mm, LFT wnl -Radiology will not do MRCP because of vent 6. 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 Encephalopathy secondary to anoxic brain injury -acute on chronic? -Ct shows acute ischemic infarct, pt is on ASA 8. H/o duodenal ulcer 9. Complex UTI with lisa albicans, s/p diflucan -RESOLVED 10. 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 Persistent fevers -99.2 this am 12. Abnormal LFTs -liver disease -trending down 13. Acute non hemorrhagic infarcts noted on Brain CT 14. Hypoalbuminemia Plan: Dr Pelayo met with two family members, spouse was out of town. Family members will speak with pt's spouse regarding hospice care but for now, ERCP on hold until returns on Sunday. If decides to continue care we will plan on repeat ERCP toward end of week. Monitor LFT and WBC Monitor closely for GI bleeding and HH, Awaiting final decision from the family Consultation Date/Type/Reason Admit Date/Time Mar 31, 2018 at 17:58 Initial Consult Date 04/02/18 Requesting Provider: TAMARA GRAJEDA MD Date/Time of Note DATE: 05/17/18 TIME: 10:17 24 HR Interval Summary Subjective hx not possible: pt non-verbal Exam/Review of Systems Exam Vitals Vital Signs Date Temp Pulse Resp B/P (MAP) Pulse Ox O2 O2 Flow FiO2 Time Delivery Rate 05/17/18 100 29 100 30 09:06 05/17/18 98.0 114/91 08:21 (99) 05/16/18 Mechanical 15:59 Ventilator Intake and Output 05/16/18 05/16/18 05/17/18 1515:00 23:00 07:00 IntakeIntake Total 660 ml 685 ml 620 ml OutputOutput Total 675 ml 650 ml 750 ml BalanceBalance -15 ml 35 ml -130 ml Neck: supple, non-tender Cardiovascular: regular rate and rhythm Results Result Diagram: 05/17/18 0644 05/17/18 0644 Results 24hrs Laboratory Tests Test 05/17/18 06:44 White Blood Count 10.0 Red Blood Count 2.99 L Hemoglobin 8.6 L Hematocrit 26.0 L Mean Corpuscular Volume 87.0 Mean Corpuscular Hemoglobin 28.8 L Mean Corpuscular Hemoglobin Concent 33.1 Red Cell Distribution Width 16.2 H Platelet Count 209 Mean Platelet Volume 10.0 Immature Granulocytes % 1.400 H Neutrophils % 80.6 H Lymphocytes % 7.1 L Monocytes % 8.8 Eosinophils % 1.7 Basophils % 0.4 Nucleated Red Blood Cells % 0.2 H Immature Granulocytes # 0.140 H Neutrophils # 8.0 H Lymphocytes # 0.7 L Monocytes # 0.9 Eosinophils # 0.2 Basophils # 0.0 Nucleated Red Blood Cells # 0.0 Sodium Level 141 Potassium Level 3.7 Chloride Level 113 H Carbon Dioxide Level 18 L Anion Gap 10 Blood Urea Nitrogen 28 H Creatinine 0.90 Est Glomerular Filtrat Rate mL/min > 60 Glucose Level 108 Calcium Level 8.6 Phosphorus Level 3.5 Magnesium Level 2.0 Medications Medication Current Medications Collagenase (Santyl) 1 applic DAILY TOP Last administered on 05/17/18at 08:50; Admin Dose 1 APPLIC; Start 04/03/18 at 12:00 Lansoprazole (Prevacid) 30 mg HS PO Last administered on 05/16/18at 21:04; Admin Dose 30 MG; Start 04/20/18 at 21:00 Fluconazole (Diflucan) 100 mg DAILY PO Last administered on 05/17/18at 08:50; Admin Dose 100 MG; Start 04/21/18 at 14:00 Albuterol (Proventil 0.083% (Neb)) 2.5 mg Q3H RESP THERAPY PRN NEB WHEEZING AND SOB; Start 04/30/18 at 19:00 Ascorbic Acid (Vitamin C) 500 mg DAILY GTB Last administered on 05/17/18at 08:50; Admin Dose 500 MG; Start 05/04/18 at 09:30 Zinc Sulfate (Zinc Sulfate) 220 mg DAILY GTB Last administered on 05/17/18at 08:50; Admin Dose 220 MG; Start 05/04/18 at 09:30 Multivit/Ca Carb/ B Cmplx/FA/Prenat (Sofy-Sandoval) 1 tab DAILY GTB Last administered on 05/17/18 08:51; Admin Dose 1 TAB; Start 05/04/18 at 09:30 Acetaminophen (Tylenol Liquid) 650 mg Q4H PRN GTB MILD PAIN(1-3)OR ELEVATED TEMP Last administered on 05/17/18 01:11; Admin Dose 650 MG; Start 05/04/18 at 09:30 Acetaminophen (Tylenol Supp) 650 mg Q6H PRN [place] temp over 101; Start 05/04/18 at 09:30 Polyethylene Glycol (Miralax) 17 gm DAILY PRN GTB constipation; Start 05/04/18 at 16:00 Hydralazine HCl (Apresoline) 5 mg Q6H PRN IV ELEVATED BLOOD PRESSURE; Start 05/04/18 at 22:30 Aspirin (Aspirin) 81 mg DAILY PO Last administered on 05/17/18 08:50; Admin Dose 81 MG; Start 05/05/18 at 15:00 Atorvastatin Calcium (Lipitor) 10 mg HS PO Last administered on 05/16/18 21:04; Admin Dose 10 MG; Start 05/06/18 at 21:00 Sodium Hypochlorite (Dakin'S (Dilute )) 1 applic BID IRR Last administered on 05/17/18 08:51; Admin Dose 1 APPLIC; Start 05/09/18 at 15:00 Amikacin Sulfate (Amikacin Iv Per Pharmacy) AMIKACIN PER PHARMACY NOTE XX ; Start 05/15/18 at 11:30 Amikacin Sulfate 850 mg/Sodium Chloride 253.4 ml @ 250 mls/hr Q72H IVPB Last administered on 05/16/18 17:06; Admin Dose 250 MLS/HR; Start 05/10/18 at 15:00 Morphine Sulfate (morphine) 5 mg Q4H PRN GTB SEVERE PAIN LEVEL 7-10 Last administered on 05/16/18 10:35; Admin Dose 5 MG; Start 05/11/18 at 14:00 RASHEEDA MEJIA MD May 17, 2018 10:18
--- NOTE | 2018-05-17 11:37 | PN ---
Date/Time of Note Date/Time of Note DATE: 05/17/18 TIME: 11:34 Assessment/Plan Lines/Catheters IV Catheter Type (from Nrs): Saline Lock Schwartz in Place (from Nrs): Yes Assessment/Plan Chief Complaint/Hosp Course 1. Decubitus pressure ulcers with necrosis s/p exc milena 04/30 -cont Local care -Offload -Nutritional optimization -Vitamin C -Short-term zinc -further debridement prn if family chooses to continue with present level of care- reportedly to come on Sunday for goals of care discussion 2. Functional quadriplegia with history of stroke secondary to drug and alcohol abuse, chronic encephalopathy with acute nonhemorrhagic infarcts seen on recent ct -per neuro -Medical optimization as above -pending final decision re goals of care 3. Poor quality of life -s/p family meeting >pending final decision re goals of care with 4. Chronic renal disease -Judicious fluid management -Minimize nephrotoxic agents if possible 5. Dysphagia on tube feeds 6. Anemia -Monitor 7. Ventilator dependent respiratory failure -Ventilator management and pulmonary toilet 8. Abnormal lipase and ca19-9 s/p ercp 04/30 with stricture and sphincterotomy -repeat ercp per gi held 04/27 acute strokes -trend 9. Dilated cardiomyopathy with congestive heart failure and coronary artery disease with history of hypertension -Cardiac optimization -Judicious fluid management -Electrolyte optimization Thank you. Patient seen and examined in collaboration with Dr. Chet Melvin. Subjective 24 Hr Interval Summary Continues to have intermittent tachycardia and tachypnea. No fevers, labored breathing, congested cough, arrhythmia, seizure, rash, skin changes. Appears comfortable. Nonverbal indicators of pain not present. Exam/Review of Systems Vital Signs Vitals Vital Signs Date Temp Pulse Resp B/P (MAP) Pulse Ox O2 O2 Flow FiO2 Time Delivery Rate 05/17/18 99 24 99 30 11:06 05/17/18 98.0 114/91 08:21 (99) 05/16/18 Mechanical 15:59 Ventilator Intake and Output 05/16/18 05/16/18 05/17/18 1515:00 23:00 07:00 IntakeIntake Total 660 ml 685 ml 620 ml OutputOutput Total 675 ml 650 ml 750 ml BalanceBalance -15 ml 35 ml -130 ml Exam Free Text/Dictation Constitutional: No alert, No oriented Psych: confusion; No nl mood/affect Head: normocephalic Eyes: nl conjunctiva, PERRL; No icteric ENMT: nl lips & teeth, mucosa pink and dry, Neck: supple, jvd (Minimal), other (Trach in place) Respiratory: No congested cough, No labored breathing, No wheezing Cardiovascular: regular rate and rhythm; No edema Gastrointestinal: soft, non-tender, other (PEG); No distended, No rebound or guarding Genitourinary - Male: nl penis Musculoskeletal: No nl gait and stance, No joint tenderness Extremities: edema; No calf tenderness, No tenderness Neurological: No nl mental status, No nl speech, No nl strength Skin: rash or lesions (bilat buttock pressure decubitus wounds min debris/slough, granulating, scant drainage, no odor; Lower extremity wounds), ecchymosis; No nl turgor, No diaphoresis Lymph: No nl lymph nodes Results Result Diagram: 05/17/18 0644 05/17/18 0644 AURE ENRIQUEZ NP May 17, 2018 11:37
--- NOTE | 2018-05-17 13:05 | PN ---
Date/Time of Note Date/Time of Note DATE: 05/17/18 TIME: 13:04 Assessment/Plan VTE Prophylaxis Risk score (from Ns)>0 risk: 5 SCD applied (from [facility]): Yes Pharmacological prophylaxis: NA/contraindicated Pharm contraindication: anticoag not tolerated Lines/Catheters IV Catheter Type (from [facility]): Saline Lock Urinary Cath still in place: Yes Reason Cath still needed: urinary retention Assessment/Plan Hospital Course # UTI # Oral gingival bleeding likely due to dentures, was seen by ENT s/p endoscopy # Sepsis with Fevers with hx Pneumonia +UTI and ? Pancreatitis +multiple wounds, ucx+ lisa # Blood loss anemia due to #1, resolved # VDRF # CKD , resolved # Metabolic acidosis # DILATED CARDIOMYOPATHY # HX ALCOHOL ABUSE # Multiple wounds > decub # hypomagnesemia, esolved # low grade fever. stable today Assessment/Plan -ERCP on Sunday -on amikacin/Diflucan. - WBC scan neg - fu neuro recs - ERCP cancelled due to new stroke - Family meeting discussed goals of care, again with Dr. Anthony / family coming back, meeting today tmw, returning back - Heme consult fo anemia? r/o malignancy per heme notes, SPEP also sent - GI prophylaxsis - monitor oral bleeding - labs am - hydralzine prn -overall poor prognosis. . Result Diagram: 05/17/18 0644 05/17/18 0644 Results 24hrs Laboratory Tests Test 05/17/18 06:44 White Blood Count 10.0 Red Blood Count 2.99 L Hemoglobin 8.6 L Hematocrit 26.0 L Mean Corpuscular Volume 87.0 Mean Corpuscular Hemoglobin 28.8 L Mean Corpuscular Hemoglobin Concent 33.1 Red Cell Distribution Width 16.2 H Platelet Count 209 Mean Platelet Volume 10.0 Immature Granulocytes % 1.400 H Neutrophils % 80.6 H Lymphocytes % 7.1 L Monocytes % 8.8 Eosinophils % 1.7 Basophils % 0.4 Nucleated Red Blood Cells % 0.2 H Immature Granulocytes # 0.140 H Neutrophils # 8.0 H Lymphocytes # 0.7 L Monocytes # 0.9 Eosinophils # 0.2 Basophils # 0.0 Nucleated Red Blood Cells # 0.0 Sodium Level 141 Potassium Level 3.7 Chloride Level 113 H Carbon Dioxide Level 18 L Anion Gap 10 Blood Urea Nitrogen 28 H Creatinine 0.90 Est Glomerular Filtrat Rate mL/min > 60 Glucose Level 108 Calcium Level 8.6 Phosphorus Level 3.5 Magnesium Level 2.0 Subjective 24 Hr Interval Summary Subjective hx not possible: pt non-verbal Exam/Review of Systems Exam Vitals Vital Signs Date Temp Pulse Resp B/P (MAP) Pulse Ox O2 O2 Flow FiO2 Time Delivery Rate 05/17/18 102 12:16 05/17/18 98.0 29 130/92 99 Mechanical 12:02 (105) Ventilator 05/17/18 30 11:06 Intake and Output 05/16/18 05/16/18 05/17/18 1515:00 23:00 07:00 IntakeIntake Total 660 ml 685 ml 620 ml OutputOutput Total 675 ml 650 ml 750 ml BalanceBalance -15 ml 35 ml -130 ml Constitutional: non-verbal Neck: supple, other (tracheostomy) Respiratory: diminished breath sounds Cardiovascular: regular rate and rhythm Gastrointestinal: soft, other (GT) Results Results 24hrs Laboratory Tests Test 05/17/18 06:44 White Blood Count 10.0 Red Blood Count 2.99 L Hemoglobin 8.6 L Hematocrit 26.0 L Mean Corpuscular Volume 87.0 Mean Corpuscular Hemoglobin 28.8 L Mean Corpuscular Hemoglobin Concent 33.1 Red Cell Distribution Width 16.2 H Platelet Count 209 Mean Platelet Volume 10.0 Immature Granulocytes % 1.400 H Neutrophils % 80.6 H Lymphocytes % 7.1 L Monocytes % 8.8 Eosinophils % 1.7 Basophils % 0.4 Nucleated Red Blood Cells % 0.2 H Immature Granulocytes # 0.140 H Neutrophils # 8.0 H Lymphocytes # 0.7 L Monocytes # 0.9 Eosinophils # 0.2 Basophils # 0.0 Nucleated Red Blood Cells # 0.0 Sodium Level 141 Potassium Level 3.7 Chloride Level 113 H Carbon Dioxide Level 18 L Anion Gap 10 Blood Urea Nitrogen 28 H Creatinine 0.90 Est Glomerular Filtrat Rate mL/min > 60 Glucose Level 108 Calcium Level 8.6 Phosphorus Level 3.5 Magnesium Level 2.0 Medications Medication Current Medications Collagenase (Santyl) 1 applic DAILY TOP Last administered on 05/17/18at 08:50; Admin Dose 1 APPLIC; Start 04/03/18 at 12:00 Lansoprazole (Prevacid) 30 mg HS PO Last administered on 05/16/18at 21:04; Admin Dose 30 MG; Start 04/20/18 at 21:00 Fluconazole (Diflucan) 100 mg DAILY PO Last administered on 05/17/18 08:50; Admin Dose 100 MG; Start 04/21/18 at 14:00 Albuterol (Proventil 0.083% (Neb)) 2.5 mg Q3H RESP THERAPY PRN NEB WHEEZING AND SOB; Start 04/30/18 at 19:00 Ascorbic Acid (Vitamin C) 500 mg DAILY GTB Last administered on 05/17/18 08:50; Admin Dose 500 MG; Start 05/04/18 at 09:30 Zinc Sulfate (Zinc Sulfate) 220 mg DAILY GTB Last administered on 05/17/18 08:50; Admin Dose 220 MG; Start 05/04/18 at 09:30 Multivit/Ca Carb/ B Cmplx/FA/Prenat (Sofy-Sandoval) 1 tab DAILY GTB Last administered on 05/17/18 08:51; Admin Dose 1 TAB; Start 05/04/18 at 09:30 Acetaminophen (Tylenol Liquid) 650 mg Q4H PRN GTB MILD PAIN(1-3)OR ELEVATED TEMP Last administered on 05/17/18 01:11; Admin Dose 650 MG; Start 05/04/18 at 09:30 Acetaminophen (Tylenol Supp) 650 mg Q6H PRN [place] temp over 101; Start 05/04/18 at 09:30 Polyethylene Glycol (Miralax) 17 gm DAILY PRN GTB constipation; Start 05/04/18 at 16:00 Hydralazine HCl (Apresoline) 5 mg Q6H PRN IV ELEVATED BLOOD PRESSURE; Start 05/04/18 at 22:30 Aspirin (Aspirin) 81 mg DAILY PO Last administered on 05/17/18 08:50; Admin Dose 81 MG; Start 05/05/18 at 15:00 Atorvastatin Calcium (Lipitor) 10 mg HS PO Last administered on 05/16/18 21:04; Admin Dose 10 MG; Start 05/06/18 at 21:00 Sodium Hypochlorite (Dakin'S (Dilute )) 1 applic BID IRR Last administered on 05/17/18 08:51; Admin Dose 1 APPLIC; Start 05/09/18 at 15:00 Amikacin Sulfate (Amikacin Iv Per Pharmacy) AMIKACIN PER PHARMACY NOTE XX ; St art 05/15/18 at 11:30 Amikacin Sulfate 850 mg/Sodium Chloride 253.4 ml @ 250 mls/hr Q72H IVPB Last administered on 05/16/18at 17:06; Admin Dose 250 MLS/HR; Start 05/10/18 at 15:00 Morphine Sulfate (morphine) 5 mg Q4H PRN GTB SEVERE PAIN LEVEL 7-10 Last administered on 05/16/18at 10:35; Admin Dose 5 MG; Start 05/11/18 at 14:00 LETITIA BLAKELY May 17, 2018 13:05
--- NOTE | 2018-05-17 13:39 | CONS ---
Assessment/Plan Assessment/Plan Hospital Course 62 M c/ Hx of methamphetamine/ETOH abuse c/b cirrhosis and dilated cardiomyopathy... and other comorbidities, admitted for evaluation of gingival bleeding..and fevers.... Neurology is again consulted to evaluate encephalopathy and assess prognosis for meaningful neurologic recovery.. The clinical picture again suggests an acute toxic-metabolic (?on chronic) encephalopathy. Repeat Head CT shows a new R temporal infarction..which may be a contributor.. Recent MRI brain was notable for a subacute cerebellar infarction, though it is limited by motion.. Recent EEG was without epileptiform activity. His prognosis for meaningful neurologic recovery remains guarded. P: Agree w/ asa daily for secondary stroke prevention, as medically able (severe anemia noted...); LDL is at goal... Limit sedating medications where possible PT/OT/ST as able Continued medical management and supportive care per primary Will follow Consultation Date/Type/Reason Admit Date/Time Mar 31, 2018 at 17:58 Type of Consult Neurology Requesting Provider: TAMARA GRAJEDA MD Date/Time of Note DATE: 05/17/18 TIME: 13:39 24 HR Interval Summary Free Text/Dictation Continues telemetry monitoring. No acute events or changes in pt condition reported. Subjective hx not possible: pt non-verbal Exam Vital Signs Vitals Vital Signs Date Temp Pulse Resp B/P (MAP) Pulse Ox O2 O2 Flow FiO2 Time Delivery Rate 05/17/18 107 32 100 30 13:02 05/17/18 98.0 130/92 Mechanical 12:02 (105) Ventilator Intake and Output 05/16/18 05/16/18 05/17/18 1515:00 23:00 07:00 IntakeIntake Total 660 ml 685 ml 620 ml OutputOutput Total 675 ml 650 ml 750 ml BalanceBalance -15 ml 35 ml -130 ml Exam PE: Gen Appearance: No Apparent Distress HEENT: Trach Abdomen: Soft Extremities: Dry NE: The patient was obtunded and nonverbal. Cranial nerve examination was limited by mental status. Pupils were equal and reactive to light. There was no afferent pupillary defect. Funduscopic examination was limited. Face was grossly symmetric, w/ present corneal and cough reflexes. Tone was normal. Muscle bulk was normal. I did not see fasciculations. The patient withdrew to noxious stimulation x 4. Coordination and gait testing was limited by mental status. Arm and leg reflexes were within normal limits and symmetric. Maguire's sign was absent. Plantar responses were flexor. ANURAG PRESSLEY NP May 17, 2018 13:39 MANDO PINO May 17, 2018 15:57
--- NOTE | 2018-05-17 16:03 | CONS ---
Assessment/Plan Assessment/Plan Hospital Course (Demo Recall) ID PROGRESS NOTE CURRENT ABX: DAY # => Amikacin#8+ Diflucan s/p Cefepime/ Doxy s/p Vanco IV + Merrem 05/17/18 0644 05/17/18 0644 24H INTERVAL SUMMARY * No fevers --- VSS, awake, alert, no c/o * 05/16/18 UA (-)Lek Esterase, no yeast, few bacteria * He is completing ABX course for complex UTI w/hx of purulent discharge from penile meatus * VSS, hemodynamics stable today. * The patient is currently in treatment for MDRO PSAR UTI. He also has numerous wound and invasives which all likely contributing to SIRs. * 05/07/18 WBC SCAN: IMPRESSION: No definite abnormal focal areas of increased activity. * Patient is awake, alert, VSS, NAD * Non-communicative w/ Trach to vent, Fi02 30% VSS, MICRO/OTHER * MICRO: * 05/07/18 URINE CX (+)PSAR URINE CULTURE Final Organism 1 PSEUDOMONAS AERUGINOSA COLONY COUNT 10,000 - 20,000 CFU/ml * 05/03/18 TRACH (+)PSAR * 04/29/18 Urine (+)yeast * Blood cultures remain negative. * Urine culture positive for Breanne albicans. * Endotracheal aspirate growing gram-negative rods. * Sacral wound culture growing MRSA, Breanne albicans, enterococcus, gram- negative rods. * Nares swab positive for MRSA * 04/20 + 04/21/18 PENILE DISCHARGE GENITAL CULTURE Final Organism 1 BREANNE ALBICANS QUANTITY SCANT GROWTH Organism 2 PSEUDOMONAS AERUGINOSA QUANTITY SCANT GROWTH P.AERUG P.AERUG M.I.C. RX M.I.C. RX --------- --- --------- --- AMIKACIN <=2 S AZTREONAM I CEFEPIME >=64 R CEFTAZIDIME >=64 R CIPROFLOXACIN >=4 R GENTAMICIN <=1 S LEVOFLOXACIN >=8 R MEROPENEM >32 R TOBRAMYCIN <=1 S PIPERACILLIN/TAZOBACTAM >=128 R ------- PHYSICAL EXAMINATION: GENERAL: Afebrile, VSS HEENT: AT, NC, anicteric NECK: Supple, trach(+) -- secure CHEST: Equal chest rise bilaterally, without dyspnea on observation HEART: Pulse RRR ABDOMEN: Soft / NT EXTREMITIES: Warm, dry SKIN: No rash, no diaphoresis ID ASSESSMENT 62 yo M admit with: 1. s/p Sepsis === SIRS w/ ongoing fevers=> cant r/o malignancy given elevated CA19 and lipase * (+)PSAR UTI + PSAR PNA 2. Possible acute pancreatitis, CT of the abdomen revealed no abscess, no pseudocyst * -on CT scan pancreas is normal * -lipid panel wnl * -CBD 6mm, LFT wnl * -Radiology will not do MRCP because of vent * Possible enterocolitis per CT => s/p ABX including Flagyl 3. HCAP -- (+)PSAR w/Hx of (+)MRSA * CT PULMONARY FINDINGS: There is patchy ground-glass opacification in the right middle lobe and anterior right upper lobe, with peribronchial/tree in bud nodules in the right lower lobe. Peribronchial opacification in the left upper lobe and left lower lobe with atelectasis/consolidation in the left lower lobe. 4. Chronic respiratory failure 5. Hx of cardiomyopathy 6. S/p gingival bleeding w/resultant blood loss anemia 7. Sinusitis = s/p ABX treatment 8. Complex UTI w/penile discharge (+)PSAR * s/p Breanne albicans UTI = s/p Diflucan 9. Sacral decub - polymicrobial pathogens -- has been treated w/prolonged course of ABX * -s/p Debride 04/30/18 10. Abnormal lipase and ca19-9 s/p ercp 04/30 with stricture and sphincterotomy * -repeat ercp per gi held 2/2 acute strokes (-)MRSA Nares -> s/p Vanco IV ABX ALLERGIES: NKDA INVASIVES: PICC, Trach, Peg, FC CURRENT ABX: DAY => Amikacin#8+ Diflucan s/p Cefepime s/p Doxy s/p Vanco IV + Merrem ID RECOMMENDATIONS/PLAN: 1. Continue Amikacin/Diflucan --anticipate 10days for persistent MDRO PSAR UTI / VAP * Low grade temps resolved over past 26H -- he had 2-3 days of low grade temps prior to today * 05/16/18 UA (-)Lek Esterase, no yeast, few bacteria * He is completing ABX course for complex UTI w/hx of purulent discharge from penile meatus 2. May DC when cleared by primary on above recommendations 3. Repeat MRSA nares (-) -- july DC off isolation . Consultation Date/Type/Reason Admit Date/Time Mar 31, 2018 at 17:58 Initial Consult Date 04/02/18 Requesting Provider: TAMARA GRAJEDA MD Date/Time of Note DATE: 05/17/18 TIME: 16:01 Exam/Review of Systems Exam Vitals Vital Signs Date Temp Pulse Resp B/P (MAP) Pulse Ox O2 O2 Flow FiO2 Time Delivery Rate 05/17/18 96 20 100 30 15:16 05/17/18 98.0 130/92 Mechanical 12:02 (105) Ventilator Intake and Output 05/16/18 05/16/18 05/17/18 1515:00 23:00 07:00 IntakeIntake Total 660 ml 685 ml 620 ml OutputOutput Total 675 ml 650 ml 750 ml BalanceBalance -15 ml 35 ml -130 ml Results Result Diagram: 05/17/18 0644 05/17/18 0644 Results 24hrs Laboratory Tests Test 05/17/18 06:44 White Blood Count 10.0 Red Blood Count 2.99 L Hemoglobin 8.6 L Hematocrit 26.0 L Mean Corpuscular Volume 87.0 Mean Corpuscular Hemoglobin 28.8 L Mean Corpuscular Hemoglobin Concent 33.1 Red Cell Distribution Width 16.2 H Platelet Count 209 Mean Platelet Volume 10.0 Immature Granulocytes % 1.400 H Neutrophils % 80.6 H Lymphocytes % 7.1 L Monocytes % 8.8 Eosinophils % 1.7 Basophils % 0.4 Nucleated Red Blood Cells % 0.2 H Immature Granulocytes # 0.140 H Neutrophils # 8.0 H Lymphocytes # 0.7 L Monocytes # 0.9 Eosinophils # 0.2 Basophils # 0.0 Nucleated Red Blood Cells # 0.0 Sodium Level 141 Potassium Level 3.7 Chloride Level 113 H Carbon Dioxide Level 18 L Anion Gap 10 Blood Urea Nitrogen 28 H Creatinine 0.90 Est Glomerular Filtrat Rate mL/min > 60 Glucose Level 108 Calcium Level 8.6 Phosphorus Level 3.5 Magnesium Level 2.0 Medications Medication Current Medications Collagenase (Santyl) 1 applic DAILY TOP Last administered on 05/17/18 08:50; Admin Dose 1 APPLIC; Start 04/03/18 at 12:00 Lansoprazole (Prevacid) 30 mg HS PO Last administered on 05/16/18at 21:04; Admin Dose 30 MG; Start 04/20/18 at 21:00 Fluconazole (Diflucan) 100 mg DAILY PO Last administered on 05/17/18 08:50; Admin Dose 100 MG; Start 04/21/18 at 14:00 Albuterol (Proventil 0.083% (Neb)) 2.5 mg Q3H RESP THERAPY PRN NEB WHEEZING AND SOB; Start 04/30/18 at 19:00 Ascorbic Acid (Vitamin C) 500 mg DAILY GTB Last administered on 05/17/18at 08:50; Admin Dose 500 MG; Start 05/04/18 at 09:30 Zinc Sulfate (Zinc Sulfate) 220 mg DAILY GTB Last administered on 05/17/18 08:50; Admin Dose 220 MG; Start 05/04/18 at 09:30 Multivit/Ca Carb/ B Cmplx/FA/Prenat (Sofy-Sandoval) 1 tab DAILY GTB Last administered on 05/17/18at 08:51; Admin Dose 1 TAB; Start 05/04/18 at 09:30 Acetaminophen (Tylenol Liquid) 650 mg Q4H PRN GTB MILD PAIN(1-3)OR ELEVATED TEMP Last administered on 05/17/18at 01:11; Admin Dose 650 MG; Start 05/04/18 at 09:30 Acetaminophen (Tylenol Supp) 650 mg Q6H PRN [place] temp over 101; Start 05/04/18 at 09:30 Polyethylene Glycol (Miralax) 17 gm DAILY PRN GTB constipation; Start 05/04/18 at 16:00 Hydralazine HCl (Apresoline) 5 mg Q6H PRN IV ELEVATED BLOOD PRESSURE; Start 05/04/18 at 22:30 Aspirin (Aspirin) 81 mg DAILY PO Last administered on 05/17/18 08:50; Admin Dose 81 MG; Start 05/05/18 at 15:00 Atorvastatin Calcium (Lipitor) 10 mg HS PO Last administered on 05/16/18at 21:04; Admin Dose 10 MG; Start 05/06/18 at 21:00 Sodium Hypochlorite (Dakin'S (Dilute )) 1 applic BID IRR Last administered on 05/17/18 08:51; Admin Dose 1 APPLIC; Start 05/09/18 at 15:00 Amikacin Sulfate (Amikacin Iv Per Pharmacy) AMIKACIN PER PHARMACY NOTE XX ; Start 05/15/18 at 11:30 Amikacin Sulfate 850 mg/Sodium Chloride 253.4 ml @ 250 mls/hr Q72H IVPB Last administered on 05/16/18at 17:06; Admin Dose 250 MLS/HR; Start 05/10/18 at 15:00 Morphine Sulfate (morphine) 5 mg Q4H PRN GTB SEVERE PAIN LEVEL 7-10 Last administered on 05/16/18at 10:35; Admin Dose 5 MG; Start 05/11/18 at 14:00 ODIN ALBERTS NP May 17, 2018 16:03
[2018-05-17] MEDS: LANSOPRAZOLE 30 MG CAP PO SCH (21:49)
[2018-05-17] MEDS: ATORVASTATIN 10 MG TAB PO SCH (21:49)
[2018-05-18] VITALS (23 sets, daily range): BP systolic 114–132; BP diastolic 81–96; PULSE 99–126; RESP 20–37
[2018-05-18] MEDS: COLLAGENASE 5 GM (UD JAR) TOP SCH (09:12)
[2018-05-18] MEDS: MULTIVIT/CA CARB/B CMPLX/FA TAB GTB SCH (09:12)
[2018-05-18] MEDS: ZINC SULFATE 220 MG CAP GTB SCH (09:12)
[2018-05-18] MEDS: FLUCONAZOLE 100 MG TAB PO SCH (09:12)
[2018-05-18] MEDS: ASCORBIC ACID 500 MG TAB GTB SCH (09:13)
[2018-05-18] MEDS: BALSAM PERU/CASTOR OIL 60 GM TUBE TOP SCH ×2 (09:13→21:20)
[2018-05-18] MEDS: ASPIRIN 81 MG TAB PO SCH (09:13)
[2018-05-18] MEDS: SODIUM HYPOCHLORITE (1/40) 1 APPLIC BTL IRR SCH ×2 (09:13→21:20)
--- NOTE | 2018-05-18 10:05 | CONS ---
Assessment/Plan Assessment/Plan Hospital Course 62 M c/ Hx of methamphetamine/ETOH abuse c/b cirrhosis and dilated cardiomyopathy... and other comorbidities, admitted for evaluation of gingival bleeding..and fevers.... Neurology is again consulted to evaluate encephalopathy and assess prognosis for meaningful neurologic recovery.. The clinical picture again suggests an acute toxic-metabolic (?on chronic) encephalopathy. Repeat Head CT shows a new R temporal infarction..which may be a contributor.. Recent MRI brain was notable for a subacute cerebellar infarction, though it is limited by motion.. Recent EEG was without epileptiform activity. His prognosis for meaningful neurologic recovery remains guarded. P: Agree w/ asa daily for secondary stroke prevention, as medically able (severe anemia noted...); LDL is at goal... Limit sedating medications where possible PT/OT/ST as able Continued medical management and supportive care per primary Will follow Consultation Date/Type/Reason Admit Date/Time Mar 31, 2018 at 17:58 Type of Consult Neurology Requesting Provider: TAMARA GRAJEDA MD Date/Time of Note DATE: 05/18/18 TIME: 10:05 24 HR Interval Summary Free Text/Dictation Continues telemetry. Exam Vital Signs Vitals Vital Signs Date Temp Pulse Resp B/P (MAP) Pulse Ox O2 O2 Flow FiO2 Time Delivery Rate 05/18/18 101 08:30 05/18/18 Room Air 08:09 05/18/18 98.7 31 114/85 99 07:53 (95) 05/18/18 30 05:22 Intake and Output 05/17/18 05/17/18 05/18/18 1515:00 23:00 07:00 IntakeIntake Total 670 ml 680 ml OutputOutput Total 400 ml 700 ml BalanceBalance 270 ml -20 ml Exam PE: Gen Appearance: No Apparent Distress HEENT: Trach Abdomen: Soft Extremities: Dry NE: The patient was obtunded and nonverbal. Cranial nerve examination was limited by mental status. Pupils were equal and reactive to light. There was no afferent pupillary defect. Funduscopic examination was limited. Face was grossly symmetric, w/ present corneal and cough reflexes. Tone was normal. Muscle bulk was normal. I did not see fasciculations. The patient withdrew to noxious stimulation x 4. Coordination and gait testing was limited by mental status. Arm and leg reflexes were within normal limits and symmetric. Maguire's sign was absent. Plantar responses were flexor. ANURAG PRESSLEY NP May 18, 2018 10:05 MANDO PINO May 18, 2018 11:51
--- NOTE | 2018-05-18 10:44 | CONS ---
Assessment/Plan Assessment/Plan Assessment/Plan (Daily) Assessment/Plan (Daily) Hospital Course (Demo Recall) 62 male with excessively bleeding gingival tissue and severe anemia 1. Severe acute on chronic anemia likely due to blood loss from gingival ble eding -improved 3. Chronic liver disease, alcohol related 4. Mild coagulopathy 5. Elevated lipase with mildly elevated CA 19-9 -on CT scan pancreas is normal -lipid panel wnl -CBD 6mm, LFT wnl -Radiology will not do MRCP because of vent 6. Chronic kidney disease -BUN/distiller wnl 7. Encephalopathy secondary to anoxic brain injury -acute on chronic? -Ct shows acute ischemic infarct, pt is on ASA 8. H/o duodenal ulcer 9. Complex UTI with lisa albicans, s/p diflucan -RESOLVED 10. 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 Persistent fevers -99.2 this am 12. Abnormal LFTs -liver disease -trending down 13. Acute non hemorrhagic infarcts noted on Brain CT 14. Hypoalbuminemia Plan: Dr Pelayo met with two family members, spouse was out of town. Family member s will speak with pt's spouse regarding hospice care but for now, ERCP on hold until returns on Sunday. If decides to continue care we will plan on repeat ERCP toward end of week. Monitor LFT and WBC Monitor closely for GI bleeding and HH, Awaiting final decision from the family for possible ERCP on Sunday Consultation Date/Type/Reason Admit Date/Time Mar 31, 2018 at 17:58 Initial Consult Date 04/02/18 Requesting Provider: TAMARA GRAJEDA MD Date/Time of Note DATE: 05/18/18 TIME: 10:42 24 HR Interval Summary Free Text/Dictation As per staff no issues Subjective hx not possible: pt non-verbal, pt critical Exam/Review of Systems Exam Vitals Vital Signs Date Temp Pulse Resp B/P (MAP) Pulse Ox O2 O2 Flow FiO2 Time Delivery Rate 05/18/18 101 08:30 05/18/18 Room Air 08:09 05/18/18 98.7 31 114/85 99 07:53 (95) 05/18/18 30 05:22 Intake and Output 05/17/18 05/17/18 05/18/18 1515:00 23:00 07:00 IntakeIntake Total 670 ml 680 ml OutputOutput Total 400 ml 700 ml BalanceBalance 270 ml -20 ml Constitutional: non-verbal Neck: No supple, No non-tender, No jvd, No bruits, No masses, No thyromegaly, No nuchal rigidity, No other Respiratory: diminished breath sounds Cardiovascular: regular rate and rhythm, nl pulses Extremities: normal pulses Results Result Diagram: 05/17/1864305/17/18643 Medications Medication Current Medications Collagenase (Santyl) 1 applic DAILY TOP Last administered on 05/18/18 09:12; Admin Dose 1 APPLIC; Start 04/03/18 at 12:00 Lansoprazole (Prevacid) 30 mg HS PO Last administered on 05/17/18 21:49; Admin Dose 30 MG; Start 04/20/18 at 21:00 Fluconazole (Diflucan) 100 mg DAILY PO Last administered on 05/18/18 09:12; Admin Dose 100 MG; Start 04/21/18 at 14:00 Albuterol (Proventil 0.083% (Neb)) 2.5 mg Q3H RESP THERAPY PRN NEB WHEEZING AND SOB; Start 04/30/18 at 19:00 Ascorbic Acid (Vitamin C) 500 mg DAILY GTB Last administered on 05/18/18 09:13; Admin Dose 500 MG; Start 05/04/18 at 09:30 Zinc Sulfate (Zinc Sulfate) 220 mg DAILY GTB Last administered on 05/18/18 09:12; Admin Dose 220 MG; Start 05/04/18 at 09:30 Multivit/Ca Carb/ B Cmplx/FA/Prenat (Sofy-Sandoval) 1 tab DAILY GTB Last ad ministered on 05/18/18 09:12; Admin Dose 1 TAB; Start 05/04/18 at 09:30 Acetaminophen (Tylenol Liquid) 650 mg Q4H PRN GTB MILD PAIN(1-3)OR ELEVATED TEMP Last administered on 05/17/18 21:50; Admin Dose 650 MG; Start 05/04/18 at 09:30 Acetaminophen (Tylenol Supp) 650 mg Q6H PRN [place] temp over 101; Start 05/04/18 at 09:30 Polyethylene Glycol (Miralax) 17 gm DAILY PRN GTB constipation; Start 05/04/18 a t 16:00 Hydralazine HCl (Apresoline) 5 mg Q6H PRN IV ELEVATED BLOOD PRESSURE; Start 05/04/18 at 22:30 Aspirin (Aspirin) 81 mg DAILY PO Last administered on 05/18/18at 09:13; Admin Dose 81 MG; Start 05/05/18 at 15:00 Atorvastatin Calcium (Lipitor) 10 mg HS PO Last administered on 05/17/18at 21:49; Admin Dose 10 MG; Start 05/06/18 at 21:00 Sodium Hypochlorite (Dakin'S (Dilute )) 1 applic BID IRR Last administered on 05/18/18at 09:13; Admin Dose 1 APPLIC; Start 05/09/18 at 15:00 Amikacin Sulfate (Amikacin Iv Per Pharmacy) AMIKACIN PER PHARMACY NOTE XX ; Start 05/15/18 at 11:30 Amikacin Sulfate 850 mg/Sodium Chloride 253.4 ml @ 250 mls/hr Q72H IVPB Last administered on 05/16/18at 17:06; Admin Dose 250 MLS/HR; Start 05/10/18 at 15:00 Morphine Sulfate (morphine) 5 mg Q4H PRN GTB SEVERE PAIN LEVEL 7-10 Last administered on 05/16/18at 10:35; Admin Dose 5 MG; Start 05/11/18 at 14:00 RASHEEDA MEJIA MD May 18, 2018 10:44
--- NOTE | 2018-05-18 12:33 | PN ---
Date/Time of Note Date/Time of Note DATE: 05/18/18 TIME: 12:31 Assessment/Plan VTE Prophylaxis Risk score (from Ns)>0 risk: 7 SCD applied (from [facility] [place] Yes Pharmacological prophylaxis: NA/contraindicated Pharm contraindication: hemorrhagic infarct Lines/Catheters IV [facility]ter Type (from [facility] Saline Lock Urinary Cath still in place: Yes Reason Cath still needed: urinary retention Assessment/Plan Hospital Course # UTI # Oral gingival bleeding likely due to dentures, was seen by ENT s/p endoscopy # Sepsis with Fevers with hx Pneumonia +UTI and ? Pancreatitis +multiple wounds, ucx+ lisa # Blood loss anemia due to #1, resolved # VDRF # CKD , resolved # Metabolic acidosis # DILATED CARDIOMYOPATHY # HX ALCOHOL ABUSE # Multiple wounds > decub # hypomagnesemia, esolved # low grade fever. stable today Assessment/Plan -ERCP on Sunday -on amikacin/Diflucan. - WBC scan neg - fu neuro recs - ERCP cancelled due to new stroke - Family meeting discussed goals of care, again with Dr. Anthony / family coming back, meeting today tmw, returning back - Heme consult fo anemia? r/o malignancy per heme notes, SPEP also sent - GI prophylaxsis - monitor oral bleeding - labs am - hydralzine prn -overall poor prognosis. Result Diagram: 05/17/1864305/17/18 06 Exam/Review of Systems Exam Vitals Vital Signs Date Temp Pulse Resp B/P (MAP) Pulse Ox O2 O2 Flow FiO2 Time Delivery Rate 05/18/18 109 12:29 05/18/18 98.0 30 131/96 98 Mechanical 12:03 (108) Ventilator 05/18/18 30 11:30 Intake and Output 05/17/18 05/17/18 05/18/18 1515:00 23:00 07:00 IntakeIntake Total 670 ml 680 ml OutputOutput Total 400 ml 700 ml BalanceBalance 270 ml -20 ml Constitutional: non-verbal, frail Neck: other (tracheostomy) Respiratory: diminished breath sounds Cardiovascular: regular rate and rhythm Gastrointestinal: soft, other (GT) Genitourinary - Male: other (mullins) Medications Medication Current Medications Collagenase (Santyl) 1 applic DAILY TOP Last administered on 05/18/18at 09:12; Admin Dose 1 APPLIC; Start 04/03/18 at 12:00 Lansoprazole (Prevacid) 30 mg HS PO Last administered on 05/17/18 21:49; Admin Dose 30 MG; Start 04/20/18 at 21:00 Fluconazole (Diflucan) 100 mg DAILY PO Last administered on 05/18/18 09:12; Admin Dose 100 MG; Start 04/21/18 at 14:00 Albuterol (Proventil 0.083% (Neb)) 2.5 mg Q3H RESP THERAPY PRN NEB WHEEZING AND SOB; Start 04/30/18 at 19:00 Ascorbic Acid (Vitamin C) 500 mg DAILY GTB Last administered on 05/18/18 09:13; Admin Dose 500 MG; Start 05/04/18 at 09:30 Zinc Sulfate (Zinc Sulfate) 220 mg DAILY GTB Last administered on 05/18/18 09:12; Admin Dose 220 MG; Start 05/04/18 at 09:30 Multivit/Ca Carb/ B Cmplx/FA/Prenat (Sofy-Sandoval) 1 tab DAILY GTB Last administered on 05/18/18 09:12; Admin Dose 1 TAB; Start 05/04/18 at 09:30 Acetaminophen (Tylenol Liquid) 650 mg Q4H PRN GTB MILD PAIN(1-3)OR ELEVATED TEMP Last administered on 05/17/18 21:50; Admin Dose 650 MG; Start 05/04/18 at 09:30 Acetaminophen (Tylenol Supp) 650 mg Q6H PRN [place] temp over 101; Start 05/04/18 at 09:30 Polyethylene Glycol (Miralax) 17 gm DAILY PRN GTB constipation; Start 05/04/18 at 16:00 Hydralazine HCl (Apresoline) 5 mg Q6H PRN IV ELEVATED BLOOD PRESSURE; Start 05/04/18 at 22:30 Aspirin (Aspirin) 81 mg DAILY PO Last administered on 05/18/18 09:13; Admin Dose 81 MG; Start 05/05/18 at 15:00 Atorvastatin Calcium (Lipitor) 10 mg HS PO Last administered on 05/17/18 21: 49; Admin Dose 10 MG; Start 05/06/18 at 21:00 Sodium Hypochlorite (Dakin'S (Dilute )) 1 applic BID IRR Last administered on 2/23/19at 09:13; Admin Dose 1 APPLIC; Start 05/09/18 at 15:00 Amikacin Sulfate (Amikacin Iv Per Pharmacy) AMIKACIN PER PHARMACY NOTE XX ; Start 05/15/18 at 11:30 Amikacin Sulfate 850 mg/Sodium Chloride 253.4 ml @ 250 mls/hr Q72H IVPB Last administered on 05/16/18at 17:06; Admin Dose 250 MLS/HR; Start 05/10/18 at 15:00 Morphine Sulfate (morphine) 5 mg Q4H PRN GTB SEVERE PAIN LEVEL 7-10 Last administered on 05/16/18at 10:35; Admin Dose 5 MG; Start 05/11/18 at 14:00 LETITIA BLAKELY May 18, 2018 12:33
--- NOTE | 2018-05-18 13:52 | CONS ---
Assessment/Plan Assessment/Plan Assessment/Plan (Daily) 62 yo with multiple medical problems and very complicated hospital course with multiple infectious complications on antibiotics, cardiomyopathy, ETOH abuse history, pancreatitis, Encephalopathy secondary to anoxic brain injury. We are asked to see for anemia and elevated Ca 19-9 #PANCREATITIS this is likely what is causing the elevated ca 19-9. 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 further aggressive GI w/u and ERCP on hold until goals of care discussions made with . # anemia- Hgb 8.6 today anemia possibly 2/2 to anemia of chronic disease/inflammation no evidence of nutritional deficiencies SPEP does not show M spike transfuse if hgb <7 1 u prbcs transfuse plt if ,10K or actively bleeding will follow periodically, please call Dr Maurilio Ceballos with acute questions Patient seen in collaboration with Dr Thorpe Consultation Date/Type/Reason Admit Date/Time Mar 31, 2018 at 5:58 pm Initial Consult Date 04/29/18 Type of Consult ONCOLOGY Reason for Consultation ANEMIA Requesting Provider: TAMARA GRAJEDA MD Date/Time of Note DATE: 05/18/18 TIME: 13:51 24 HR Interval Summary Free Text/Dictation Seems comfortable - plan for possible ERCP Sun or Mon -no new issues reported overnight Subjective hx not possible: pt non-verbal Constitutional: requiring O2 Exam/Review of Systems Exam Vitals Vital Signs Date Temp Pulse Resp B/P (MAP) Pulse Ox O2 O2 Flow FiO2 Time Delivery Rate 05/18/18 109 12:29 05/18/18 98.0 30 131/96 98 Mechanical 12:03 (108) Ventilator 05/18/18 30 11:30 Intake and Output 05/17/18 05/17/18 05/18/18 1515:00 23:00 07:00 IntakeIntake Total 670 ml 680 ml OutputOutput Total 400 ml 700 ml BalanceBalance 270 ml -20 ml Constitutional: well developed, non-verbal, frail Psych: nl mood/affect Eyes: nl lids, nl sclera ENMT: nl external ears & nose Neck: non-tender, other (trach intact) Respiratory: diminished breath sounds (at bases bilatrally) Cardiovascular: nl pulses, other (s1s2) Gastrointestinal: soft, other (gt intac) Musculoskeletal: muscle weakness, range of motion Extremities: normal pulses Neurological: unresponsive Lymph: nontender Results Result Diagram: 05/17/1864305/17/18643 Medications Medication Current Medications Collagenase (Santyl) 1 applic DAILY TOP Last administered on 05/18/18 09:12; Admin Dose 1 APPLIC; Start 04/03/18 at 12:00 Lansoprazole (Prevacid) 30 mg HS PO Last administered on 05/17/18 21:49; Admin Dose 30 MG; Start 04/20/18 at 21:00 Fluconazole (Diflucan) 100 mg DAILY PO Last administered on 05/18/18 09:12; Admin Dose 100 MG; Start 04/21/18 at 14:00 Albuterol (Proventil 0.083% (Neb)) 2.5 mg Q3H RESP THERAPY PRN NEB WHEEZING AND SOB; Start 04/30/18 at 19:00 Ascorbic Acid (Vitamin C) 500 mg DAILY GTB Last administered on 05/18/18 09:13; Admin Dose 500 MG; Start 05/04/18 at 09:30 Zinc Sulfate (Zinc Sulfate) 220 mg DAILY GTB Last administered on 05/18/18 09:12; Admin Dose 220 MG; Start 05/04/18 at 09:30 Multivit/Ca Carb/ B Cmplx/FA/Prenat (Sofy-Sandoval) 1 tab DAILY GTB Last admin istered on 05/18/18 09:12; Admin Dose 1 TAB; Start 05/04/18 at 09:30 Acetaminophen (Tylenol Liquid) 650 mg Q4H PRN GTB MILD PAIN(1-3)OR ELEVATED TEMP Last administered on 05/17/18at 21:50; Admin Dose 650 MG; Start 05/04/18 at 09:30 Acetaminophen (Tylenol Supp) 650 mg Q6H PRN [place] temp over 101; Start 05/04/18 at 09:30 Polyethylene Glycol (Miralax) 17 gm DAILY PRN GTB constipation; Start 05/04/18 at 16:00 Hydralazine HCl (Apresoline) 5 mg Q6H PRN IV ELEVATED BLOOD PRESSURE; Start 05/04/18 at 22:30 Aspirin (Aspirin) 81 mg DAILY PO Last administered on 05/18/18 09:13; Admin Dose 81 MG; Start 05/05/18 at 15:00 Atorvastatin Calcium (Lipitor) 10 mg HS PO Last administered on 05/17/18at 21:49; Admin Dose 10 MG; Start 05/06/18 at 21:00 Sodium Hypochlorite (Dakin'S (Dilute )) 1 applic BID IRR Last administered on 05/18/18at 09:13; Admin Dose 1 APPLIC; Start 05/09/18 at 15:00 Amikacin Sulfate (Amikacin Iv Per Pharmacy) AMIKACIN PER PHARMACY NOTE XX ; Start 05/15/18 at 11:30 Amikacin Sulfate 850 mg/Sodium Chloride 253.4 ml @ 250 mls/hr Q72H IVPB Last administered on 05/16/18at 17:06; Admin Dose 250 MLS/HR; Start 05/10/18 at 15:00 Morphine Sulfate (morphine) 5 mg Q4H PRN GTB SEVERE PAIN LEVEL 7-10 Last administered on 05/16/18at 10:35; Admin Dose 5 MG; Start 05/11/18 at 14:00 YUDI GARCIA May 18, 2018 13:52
--- NOTE | 2018-05-18 15:49 | PN ---
Date/Time of Note Date/Time of Note DATE: 05/18/18 TIME: 15:40 Assessment/Plan Lines/Catheters IV Catheter Type (from Nrs): Saline Lock Schwartz in Place (from Nrs): Yes Assessment/Plan Chief Complaint/Hosp Course 1. Decubitus pressure ulcers with necrosis s/p exc milena 04/30 -cont Local care -Offload -Nutritional optimization -Vitamin C -Short-term zinc -further debridement prn -possible wound vac 2. Functional quadriplegia with history of stroke secondary to drug and alcohol abuse, chronic encephalopathy with acute nonhemorrhagic infarcts seen on recent ct -per neuro -Medical optimization as above -pending final decision re goals of care 3. Poor quality of life -s/p family meeting >pending final decision re goals of care with 4. Chronic renal disease -Judicious fluid management -Minimize nephrotoxic agents if possible 5. Dysphagia on tube feeds 6. Anemia -Monitor 7. Ventilator dependent respiratory failure -Ventilator management and pulmonary toilet 8. Abnormal lipase and ca19-9 s/p ercp 04/30 with stricture and sphincterotomy -repeat ercp per gi held 04/27 acute strokes -trend 9. Dilated cardiomyopathy with congestive heart failure and coronary artery disease with history of hypertension -Cardiac optimization -Judicious fluid management -Electrolyte optimization Thank you. Patient seen and examined in collaboration with Dr. Chet Melvin. Subjective 24 Hr Interval Summary Appears comfortable. Nonverbal indicators of pain not present. Tachycardia. No fevers, labored breathing, congested cough, vomiting, diarrhea, sz, rash, excessive wound drainage/odor. Exam/Review of Systems Vital Signs Vitals Vital Signs Date Temp Pulse Resp B/P (MAP) Pulse Ox O2 O2 Flow FiO2 Time Delivery Rate 05/18/18 109 12:29 05/18/18 98.0 30 131/96 98 Mechanical 12:03 (108) Ventilator 05/18/18 30 11:30 Intake and Output 05/17/18 05/17/18 05/18/18 1515:00 23:00 07:00 IntakeIntake Total 670 ml 680 ml OutputOutput Total 400 ml 700 ml BalanceBalance 270 ml -20 ml Exam Free Text/Dictation Constitutional: No alert, No oriented Psych: confusion; No nl mood/affect Head: normocephalic Eyes: nl conjunctiva, PERRL; No icteric ENMT: nl lips & teeth, mucosa pink and dry, Neck: supple, jvd (Minimal), other (Trach in place) Respiratory: No congested cough, No labored breathing, No wheezing Cardiovascular: regular rate and rhythm; No edema Gastrointestinal: soft, non-tender, other (PEG); No distended, No rebound or guarding Genitourinary - Male: nl penis Musculoskeletal: No nl gait and stance, No joint tenderness Extremities: edema; No calf tenderness, No tenderness Neurological: No nl mental status, No nl speech, No nl strength Skin: rash or lesions (bilat buttock pressure decubitus wounds min debris/slough, granulating, scant drainage, no odor; Lower extremity wounds), ecchymosis; No nl turgor, No diaphoresis Lymph: No nl lymph nodes Results Result Diagram: 05/17/1844 05/17/18 0644 AURE ENRIQUEZ NP May 18, 2018 15:48
[2018-05-18] MEDS: ATORVASTATIN 10 MG TAB PO SCH (21:19)
[2018-05-18] MEDS: LANSOPRAZOLE 30 MG CAP PO SCH (21:19)
--- NOTE | 2018-05-18 22:14 | CONS ---
Assessment/Plan Assessment/Plan Hospital Course (Demo Recall) ID PROGRESS NOTE CURRENT ABX: DAY # => Amikacin#9+ Diflucan s/p Cefepime/ Doxy s/p Vanco IV + Merrem 24H INTERVAL SUMMARY * Low grade temp today VSS, awake, alert, no c/o * 05/16/18 UA (-)Lek Esterase, no yeast, few bacteria * He is completing ABX course for complex UTI w/hx of purulent discharge from penile meatus * Abnormal lipase and ca19-9 s/p ercp 04/30 with stricture and sphincterotomy- repeat ercp per gi held / acute strokes MICRO/OTHER * MICRO: * 05/07/18 URINE CX (+)PSAR URINE CULTURE Final Organism 1 PSEUDOMONAS AERUGINOSA COLONY COUNT 10,000 - 20,000 CFU/ml * 05/03/18 TRACH (+)PSAR * 04/29/18 Urine (+)yeast * Blood cultures remain negative. * Urine culture positive for Breanne albicans. * Endotracheal aspirate growing gram-negative rods. * Sacral wound culture growing MRSA, Breanne albicans, enterococcus, gram- negative rods. * Nares swab positive for MRSA * 04/20 + 04/21/18 PENILE DISCHARGE GENITAL CULTURE Final Organism 1 BREANNE ALBICANS QUANTITY SCANT GROWTH Organism 2 PSEUDOMONAS AERUGINOSA QUANTITY SCANT GROWTH P.AERUG P.AERUG M.I.C. RX M.I.C. RX --------- --- --------- --- AMIKACIN <=2 S AZTREONAM I CEFEPIME >=64 R CEFTAZIDIME >=64 R CIPROFLOXACIN >=4 R GENTAMICIN <=1 S LEVOFLOXACIN >=8 R MEROPENEM >32 R TOBRAMYCIN <=1 S PIPERACILLIN/TAZOBACTAM >=128 R PHYSICAL EXAMINATION: GENERAL: Afebrile, VSS HEENT: AT, NC, anicteric NECK: Supple, trach(+) -- secure CHEST: Equal chest rise bilaterally, without dyspnea on observation HEART: Pulse RRR ABDOMEN: Soft / NT EXTREMITIES: Warm, dry SKIN: No rash, no diaphoresis ID ASSESSMENT 62 yo M admit with: 1. s/p Sepsis === SIRS w/ ongoing fevers=> cant r/o malignancy given elevated CA19 and lipase * (+)PSAR UTI + PSAR PNA 2. Possible acute pancreatitis, CT of the abdomen revealed no abscess, no pseudocyst * -on CT scan pancreas is normal * -lipid panel wnl * -CBD 6mm, LFT wnl * -Radiology will not do MRCP because of vent * Possible enterocolitis per CT => s/p ABX including Flagyl 3. HCAP -- (+)PSAR w/Hx of (+)MRSA * CT PULMONARY FINDINGS: There is patchy ground-glass opacification in the right middle lobe and anterior right upper lobe, with peribronchial/tree in bud nodules in the right lower lobe. Peribronchial opacification in the left upper lobe and left lower lobe with atelectasis/consolidation in the left lower lobe. 4. Chronic respiratory failure 5. Hx of cardiomyopathy 6. S/p gingival bleeding w/resultant blood loss anemia 7. Sinusitis = s/p ABX treatment 8. Complex UTI w/penile discharge (+)PSAR * s/p Breanne albicans UTI = s/p Diflucan 9. Sacral decub - polymicrobial pathogens -- has been treated w/prolonged course of ABX * -s/p Debride 04/30/18 10. Abnormal lipase and ca19-9 s/p ercp 04/30 with stricture and sphincterotomy * -repeat ercp per gi held 04/27 acute strokes (-)MRSA Nares -> s/p Vanco IV ABX ALLERGIES: NKDA INVASIVES: PICC, Trach, Peg, FC CURRENT ABX: DAY => Amikacin #9+ Diflucan s/p Cefepime s/p Doxy s/p Vanco IV + Merrem ID RECOMMENDATIONS/PLAN: 1. Continue Amikacin/Diflucan --anticipate 10days for persistent MDRO PSAR UTI / VAP * Low grade temps resolved over past 26H -- he had 2-3 days of low grade temps prior to today * 05/16/18 UA (-)Lek Esterase, no yeast, few bacteria * He is completing ABX course for complex UTI w/hx of purulent discharge from penile meatus 2. May DC when cleared by primary on above recommendations 3. Repeat MRSA nares (-) -- may DC off isolation . Consultation Date/Type/Reason Admit Date/Time Mar 31, 2018 at 17:58 Initial Consult Date 04/02/18 Requesting Provider: TAMARA GRAJEDA MD Date/Time of Note DATE: 05/18/18 TIME: 22:12 Exam/Review of Systems Exam Vitals Vital Signs Date Temp Pulse Resp B/P (MAP) Pulse Ox O2 O2 Flow FiO2 Time Delivery Rate 05/18/18 30 20:00 05/18/18 123 20:00 05/18/18 100.7 37 132/81 96 19:41 (98) 05/18/18 Mechanica 16:03 l Ventilato r Intake and Output 05/17/18 05/17/18 05/18/18 1414:59 22:59 06:59 IntakeIntake Total 670 ml 680 ml OutputOutput Total 400 ml 700 ml BalanceBalance 270 ml -20 ml Results Result Diagram: 05/17/18 0644 05/17/18 0644 Medications Medication Current Medications Collagenase (Santyl) 1 applic DAILY TOP Last administered on 05/18/18at 09:12; Admin Dose 1 APPLIC; Start 04/03/18 at 12:00 Lansoprazole (Prevacid) 30 mg HS PO Last administered on 05/18/18at 21:19; Admin Dose 30 MG; Start 04/20/18 at 21:00 Fluconazole (Diflucan) 100 mg DAILY PO Last administered on 05/18/18at 09:12; Admin Dose 100 MG; Start 04/21/18 at 14:00 Albuterol (Proventil 0.083% (Neb)) 2.5 mg Q3H RESP THERAPY PRN NEB WHEEZING AND SOB; Start 04/30/18 at 19:00 Ascorbic Acid (Vitamin C) 500 mg DAILY GTB Last administered on 05/18/18at 09:13; Admin Dose 500 MG; Start 05/04/18 at 09:30 Zinc Sulfate (Zinc Sulfate) 220 mg DAILY GTB Last administered on 05/18/18at 09:12; Admin Dose 220 MG; Start 05/04/18 at 09:30 Multivit/Ca Carb/ B Cmplx/FA/Prenat (Sofy-Sandoval) 1 tab DAILY GTB Last administered on 05/18/18 09:12; Admin Dose 1 TAB; Start 05/04/18 at 09:30 Acetaminophen (Tylenol Liquid) 650 mg Q4H PRN GTB MILD PAIN(1-3)OR ELEVATED TEMP Last administered on 05/17/18 21:50; Admin Dose 650 MG; Start 05/04/18 at 09:30 Acetaminophen (Tylenol Supp) 650 mg Q6H PRN [place] temp over 101; Start 05/04/18 at 09:30 Polyethylene Glycol (Miralax) 17 gm DAILY PRN GTB constipation; Start 05/04/18 at 16:00 Hydralazine HCl (Apresoline) 5 mg Q6H PRN IV ELEVATED BLOOD PRESSURE; Start 05/04/18 at 22:30 Aspirin (Aspirin) 81 mg DAILY PO Last administered on 05/18/18 09:13; Admin Dose 81 MG; Start 05/05/18 at 15:00 Atorvastatin Calcium (Lipitor) 10 mg HS PO Last administered on 05/18/18 21:19; Admin Dose 10 MG; Start 05/06/18 at 21:00 Sodium Hypochlorite (Dakin'S (Dilute )) 1 applic BID IRR Last administered on 05/18/18at 21:20; Admin Dose 1 APPLIC; Start 05/09/18 at 15:00 Amikacin Sulfate (Amikacin Iv Per Pharmacy) AMIKACIN PER PHARMACY NOTE XX ; Start 05/15/18 at 11:30 Amikacin Sulfate 850 mg/Sodium Chloride 253.4 ml @ 250 mls/hr Q72H IVPB Last administered on 05/16/18 17:06; Admin Dose 250 MLS/HR; Start 05/10/18 at 15:00 Morphine Sulfate (morphine) 5 mg Q4H PRN GTB SEVERE PAIN LEVEL 7-10 Last admi nistered on 05/16/18at 10:35; Admin Dose 5 MG; Start 05/11/18 at 14:00 Miscellaneous Information (*Rx Drug Level Order Reminder*) AMIKACIN TROUGH @ 1,400 ONCE ONCE XX ; Start 2/24/19 at 14:00; Stop 05/19/18 at 14:01 ODIN ALBERTS NP May 18, 2018 22:14
[2018-05-19] VITALS (25 sets, daily range): BP systolic 114–137; BP diastolic 77–92; PULSE 99–122; RESP 22–36
[2018-05-19] MEDS: ZINC SULFATE 220 MG CAP GTB SCH (07:58)
[2018-05-19] MEDS: ASCORBIC ACID 500 MG TAB GTB SCH (07:58)
[2018-05-19] MEDS: ASPIRIN 81 MG TAB PO SCH (07:58)
[2018-05-19] MEDS: MULTIVIT/CA CARB/B CMPLX/FA TAB GTB SCH (07:58)
[2018-05-19] MEDS: FLUCONAZOLE 100 MG TAB PO SCH (07:58)
[2018-05-19] MEDS: SODIUM HYPOCHLORITE (1/40) 1 APPLIC BTL IRR SCH ×2 (07:59→20:13)
[2018-05-19] MEDS: BALSAM PERU/CASTOR OIL 60 GM TUBE TOP SCH ×2 (07:59→20:13)
[2018-05-19] MEDS: COLLAGENASE 5 GM (UD JAR) TOP SCH (07:59)
--- NOTE | 2018-05-19 08:45 | CONS ---
Assessment/Plan Assessment/Plan Hospital Course 62 M c/ Hx of methamphetamine/ETOH abuse c/b cirrhosis and dilated cardiomyopathy... and other comorbidities, admitted for evaluation of gingival bleeding..and fevers.... Neurology is again consulted to evaluate encephalopathy and assess prognosis for meaningful neurologic recovery.. The clinical picture again suggests an acute toxic-metabolic (?on chronic) encephalopathy. Repeat Head CT shows a new R temporal infarction..which may be a contributor.. Recent MRI brain was notable for a subacute cerebellar infarction, though it is limited by motion.. Recent EEG was without epileptiform activity. His prognosis for meaningful neurologic recovery remains guarded. P: Agree w/ asa daily for secondary stroke prevention, as medically able (severe anemia noted...); LDL is at goal... Limit sedating medications where possible PT/OT/ST as able Continued medical management and supportive care per primary Will sign off for now; please call w ?s Consultation Date/Type/Reason Admit Date/Time Mar 31, 2018 at 17:58 Type of Consult Neurology Reason for Consultation encephalopathy; prognosis.. Requesting Provider: TAMARA GRAJEDA MD Date/Time of Note DATE: 05/19/18 TIME: 08:44 24 HR Interval Summary Free Text/Dictation Continues acute care Exam Vital Signs Vitals Vital Signs Date Temp Pulse Resp B/P (MAP) Pulse Ox O2 O2 Flow FiO2 Time Delivery Rate 05/19/18 110 08:23 05/19/18 98.9 36 122/92 98 08:20 (102) 05/19/18 30 08:00 05/18/18 Mechanical 16:03 Ventilator Intake and Output 05/18/18 05/18/18 05/19/18 1515:00 23:00 07:00 IntakeIntake Total 820 ml 670 ml OutputOutput Total 725 ml 800 ml BalanceBalance 95 ml -130 ml Exam Comprehensive: Stable from prior MANDO PINO May 19, 2018 08:45
--- NOTE | 2018-05-19 10:36 | PN ---
Date/Time of Note Date/Time of Note DATE: 05/19/18 TIME: 10:33 Assessment/Plan Lines/Catheters IV Catheter Type (from Nrs): Saline Lock Schwartz in Place (from Nrs): Yes Assessment/Plan Chief Complaint/Hosp Course 1. Decubitus pressure ulcers with necrosis s/p exc milena 04/30 -cont Local care -Offload -Nutritional optimization -Vitamin C -Short-term zinc -further debridement prn once goals of care established 2. Functional quadriplegia with history of stroke secondary to drug and alcohol abuse, chronic encephalopathy with acute nonhemorrhagic infarcts seen on recent ct -per neuro -Medical optimization as above -pending final decision re goals of care 3. Poor quality of life -s/p family meeting >pending final decision re goals of care with 4. Chronic renal disease -Judicious fluid management -Minimize nephrotoxic agents if possible 5. Dysphagia on tube feeds 6. Anemia -Monitor 7. Ventilator dependent respiratory failure -Ventilator management and pulmonary toilet 8. Abnormal lipase and ca19-9 s/p ercp 04/30 with stricture and sphincterotomy -repeat ercp per gi held 04/27 acute strokes -trend 9. Dilated cardiomyopathy with congestive heart failure and coronary artery disease with history of hypertension -Cardiac optimization -Judicious fluid management -Electrolyte optimization Thank you. Patient seen and examined in collaboration with Dr. Chet Melvin. Subjective 24 Hr Interval Summary Tachycardia. WBC elevated. Appears comfortable. Nonverbal indicators of pain not present. No fevers, congested cough, vomiting, diarrhea, sz, rash. Exam/Review of Systems Vital Signs Vitals Vital Signs Date Temp Pulse Resp B/P (MAP) Pulse Ox O2 O2 Flow FiO2 Time Delivery Rate 05/19/18 110 08:23 05/19/18 98.9 36 122/92 98 08:20 (102) 05/19/18 30 08:00 05/18/18 Mechanical 16:03 Ventilator Intake and Output 05/18/18 05/18/18 05/19/18 1515:00 23:00 07:00 IntakeIntake Total 820 ml 670 ml OutputOutput Total 725 ml 800 ml BalanceBalance 95 ml -130 ml Exam Free Text/Dictation Constitutional: No alert, No oriented Psych: confusion; No nl mood/affect Head: normocephalic Eyes: nl conjunctiva, PERRL; No icteric ENMT: nl lips & teeth, mucosa pink and dry, Neck: supple, jvd (Minimal), other (Trach in place) Respiratory: No congested cough, No labored breathing, No wheezing Cardiovascular: regular rate and rhythm; No edema Gastrointestinal: soft, non-tender, other (PEG); No distended, No rebound or guarding Genitourinary - Male: nl penis Musculoskeletal: No nl gait and stance, No joint tenderness Extremities: edema; No calf tenderness, No tenderness Neurological: No nl mental status, No nl speech, No nl strength Skin: rash or lesions (bilat buttock pressure decubitus wounds min debris/slough, granulating, scant drainage, no odor; Lower extremity wounds), ecchymosis; No nl turgor, No diaphoresis Lymph: No nl lymph nodes Results Result Diagram: 05/19/1860005/19/18600 AURE ENRIQUEZ NP May 19, 2018 10:36
--- NOTE | 2018-05-19 12:49 | CONS ---
Assessment/Plan Assessment/Plan Hospital Course (Demo Recall) ID PROGRESS NOTE CURRENT ABX: DAY # => Amikacin#10+ Diflucan s/p Cefepime/ Doxy s/p Vanco IV + Merrem 24H INTERVAL SUMMARY * DC PLANNING ON HOLD FOR REPEAT ERCP RECOMMENDED BY GI * Abnormal lipase and ca19-9 s/p ERCP / with stricture and sphincterotomy-repeat ERCP per GI recommended (held 2/ acute strokes antonino or) * ERCP on hold until returns on Sunday. If decides to continue care we will plan on repeat ERCP toward end of week. * Stable --- Low grade temp VSS, awake, alert, no c/o * 05/16/18 UA (-)Lek Esterase, no yeast, few bacteria * He is completing ABX course for complex UTI w/hx of purulent discharge from penile meatus * MICRO/OTHER * MICRO: * 05/07/18 URINE CX (+)PSAR URINE CULTURE Final Organism 1 PSEUDOMONAS AERUGINOSA COLONY COUNT 10,000 - 20,000 CFU/ml * 05/03/18 TRACH (+)PSAR * 04/29/18 Urine (+)yeast * Blood cultures remain negative. * Urine culture positive for Breanne albicans. * Endotracheal aspirate growing gram-negative rods. * Sacral wound culture growing MRSA, Breanne albicans, enterococcus, gram-n egative rods. * Nares swab positive for MRSA * 04/20 + 04/21/18 PENILE DISCHARGE GENITAL CULTURE Final Organism 1 BREANNE ALBICANS QUANTITY SCANT GROWTH Organism 2 PSEUDOMONAS AERUGINOSA QUANTITY SCANT GROWTH P.AERUG P.AERUG M.I.C. RX M.I.C. RX --------- --- --------- --- AMIKACIN <=2 S AZTREONAM I CEFEPIME >=64 R CEFTAZIDIME >=64 R CIPROFLOXACIN >=4 R GENTAMICIN <=1 S LEVOFLOXACIN >=8 R MEROPENEM >32 R TOBRAMYCIN <=1 S PIPERACILLIN/TAZOBACTAM >=128 R PHYSICAL EXAMINATION: GENERAL: Afebrile, VSS HEENT: AT, NC, anicteric NECK: Supple, trach(+) -- secure CHEST: Equal chest rise bilaterally, without dyspnea on observation HEART: Pulse RRR ABDOMEN: Soft / NT EXTREMITIES: Warm, dry SKIN: No rash, no diaphoresis ID ASSESSMENT 62 yo M admit with: 1. s/p Sepsis === SIRS w/ ongoing fevers=> cant r/o malignancy given elevated CA19 and lipase * (+)PSAR UTI + PSAR PNA 2. Possible acute pancreatitis, CT of the abdomen revealed no abscess, no pseudocyst * -on CT scan pancreas is normal * -lipid panel wnl * -CBD 6mm, LFT wnl * -Radiology will not do MRCP because of vent * Possible enterocolitis per CT => s/p ABX including Flagyl 3. HCAP -- (+)PSAR w/Hx of (+)MRSA * CT PULMONARY FINDINGS: There is patchy ground-glass opacification in the right middle lobe and anterior right upper lobe, with peribronchial/tree in bud nodules in the right lower lobe. Peribronchial opacification in the left upper lobe and left lower lobe with atelectasis/consolidation in the left lower lobe. 4. Chronic respiratory failure 5. Hx of cardiomyopathy 6. S/p gingival bleeding w/resultant blood loss anemia 7. Sinusitis = s/p ABX treatment 8. Complex UTI w/penile discharge (+)PSAR * s/p Breanne albicans UTI = s/p Diflucan 9. Sacral decub - polymicrobial pathogens -- has been treated w/prolonged course of ABX * -s/p Debride 04/30/18 10. Abnormal lipase and ca19-9 s/p ERCP 04/30 with stricture and sphincterotomy * -repeat ercp per gi held 2/2 acute strokes (-)MRSA Nares -> s/p Vanco IV ABX ALLERGIES: NKDA INVASIVES: PICC, Trach, Peg, FC CURRENT ABX: DAY => Amikacin #10+ Diflucan s/p Cefepime s/p Doxy s/p Vanco IV + Merrem ID RECOMMENDATIONS/PLAN: 1. Continue Amikacin/Diflucan --anticipate 14 days for persistent MDRO PSAR UTI / VAP * Low grade temps resolved over past 26H -- he had 2-3 days of low grade temps prior to today * 05/16/18 UA (-)Lek Esterase, no yeast, few bacteria * He is completing ABX course for complex UTI w/hx of purulent discharge from penile meatus 2. May DC when cleared by primary on above recommendations 3. PER GI NOTES: DC PLANNING ON HOLD FOR REPEAT ERCP RECOMMENDED BY GI * Abnormal lipase and ca19-9 s/p ERCP 04/30 with stricture and sphincterotomy- repeat ERCP per GI recommended (held 2/2 acute strokes prior) * ERCP on hold until returns on Sunday. If decides to continue care we will plan on repeat ERCP toward end of week. 3. Repeat MRSA nares (-) -- may DC off isolation . Consultation Date/Type/Reason Admit Date/Time Mar 31, 2018 at 17:58 Initial Consult Date 04/02/18 Requesting Provider: TAMARA GRAJEDA MD Date/Time of Note DATE: 05/19/18 TIME: 12:43 Exam/Review of Systems Exam Vitals Vital Signs Date Temp Pulse Resp B/P (MAP) Pulse Ox O2 O2 Flow FiO2 Time Delivery Rate 05/19/18 103 12:29 05/19/18 98.8 32 122/92 96 11:55 (102) 05/19/18 30 11:13 05/18/18 Mechanical 16:03 Ventilator Intake and Output 05/18/18 05/18/18 05/19/18 1515:00 23:00 07:00 IntakeIntake Total 820 ml 670 ml OutputOutput Total 725 ml 800 ml BalanceBalance 95 ml -130 ml Results Result Diagram: 05/19/18 0601 05/19/18 0601 Results 24hrs Laboratory Tests Test 05/19/18 06:01 White Blood Count 12.5 #H Red Blood Count 2.99 L Hemoglobin 8.3 L Hematocrit 25.4 L Mean Corpuscular Volume 84.9 Mean Corpuscular Hemoglobin 27.8 L Mean Corpuscular Hemoglobin Concent 32.7 Red Cell Distribution Width 16.1 H Platelet Count 219 Mean Platelet Volume 10.5 H Immature Granulocytes % 0.900 H Neutrophils % Segmented Neutrophils % (Manual) 58 Band Neutrophils % (Manual) 29 H Lymphocytes % Lymphocytes % (Manual) 3 L Monocytes % Monocytes % (Manual) 9 Eosinophils % Basophils % Basophils % (Manual) 1 Nucleated Red Blood Cells % 0.0 Immature Granulocytes # 0.110 H Neutrophils # Neutrophils # (Manual) 7.7 H Band Neutrophils # 3.6 H Lymphocytes (Manual) 0.3 L Lymphocytes # Monocytes # Monocytes # (Manual) 1.1 H Eosinophils # Basophils # Basophils # (Manual) 0.1 H Nucleated Red Blood Cells # Platelet Estimate NORMAL Polychromasia 1+ Poikilocytosis 1+ Anisocytosis 1+ Microcytosis 1+ Ovalocytes 1+ Elliptocytes 1+ Sodium Level 142 Potassium Level 3.5 Chloride Level 116 H Carbon Dioxide Level 17 L Anion Gap 9 Blood Urea Nitrogen 34 H Creatinine 0.75 Est Glomerular Filtrat Rate mL/min > 60 Glucose Level 115 Calcium Level 8.9 Medications Medication Current Medications Collagenase (Santyl) 1 applic DAILY TOP Last administered on 05/19/18 07:59; Admin Dose 1 APPLIC; Start 04/03/18 at 12:00 Lansoprazole (Prevacid) 30 mg HS PO Last administered on 05/18/18 21:19; Admin Dose 30 MG; Start 04/20/18 at 21:00 Fluconazole (Diflucan) 100 mg DAILY PO Last administered on 05/19/18 07:58; Admin Dose 100 MG; Start 04/21/18 at 14:00 Albuterol (Proventil 0.083% (Neb)) 2.5 mg Q3H RESP THERAPY PRN NEB WHEEZING AND SOB; Start 04/30/18 at 19:00 Ascorbic Acid (Vitamin C) 500 mg DAILY GTB Last administered on 05/19/18 07:58; Admin Dose 500 MG; Start 05/04/18 at 09:30 Zinc Sulfate (Zinc Sulfate) 220 mg DAILY GTB Last administered on 05/19/18 07:58; Admin Dose 220 MG; Start 05/04/18 at 09:30 Multivit/Ca Carb/ B Cmplx/FA/Prenat (Sofy-Sandoval) 1 tab DAILY GTB Last administered on 05/19/18 07:58; Admin Dose 1 TAB; Start 05/04/18 at 09:30 Acetaminophen (Tylenol Liquid) 650 mg Q4H PRN GTB MILD PAIN(1-3)OR ELEVATED TEMP Last administered on 05/17/18at 21:50; Admin Dose 650 MG; Start 05/04/18 at 09:30 Acetaminophen (Tylenol Supp) 650 mg Q6H PRN [place] temp over 101; Start 05/04/18 at 09:30 Polyethylene Glycol (Miralax) 17 gm DAILY PRN GTB constipation; Start 05/04/18 at 16:00 Hydralazine HCl (Apresoline) 5 mg Q6H PRN IV ELEVATED BLOOD PRESSURE; Start 05/04/18 at 22:30 Aspirin (Aspirin) 81 mg DAILY PO Last administered on 05/19/18 07:58; Admin Dose 81 MG; Start 05/05/18 at 15:00 Atorvastatin Calcium (Lipitor) 10 mg HS PO Last administered on 05/18/18at 21:19; Admin Dose 10 MG; Start 05/06/18 at 21:00 Sodium Hypochlorite (Dakin'S (Dilute )) 1 applic BID IRR Last administered on 05/19/18at 07:59; Admin Dose 1 APPLIC; Start 05/09/18 at 15:00 Amikacin Sulfate (Amikacin Iv Per Pharmacy) AMIKACIN PER PHARMACY NOTE XX ; Start 05/15/18 at 11:30 Amikacin Sulfate 850 mg/Sodium Chloride 253.4 ml @ 250 mls/hr Q72H IVPB Last administered on 05/16/18at 17:06; Admin Dose 250 MLS/HR; Start 05/10/18 at 15:00 Morphine Sulfate (morphine) 5 mg Q4H PRN GTB SEVERE PAIN LEVEL 7-10 Last administered on 05/16/18at 10:35; Admin Dose 5 MG; Start 05/11/18 at 14:00 Miscellaneous Information (*Rx Drug Level Order Reminder*) AMIKACIN TROUGH @ 1,400 ONCE ONCE XX ; Start 05/19/18 at 14:00; Stop 05/19/18 at 14:01 ODIN ALBERTS NP May 19, 2018 12:49
--- NOTE | 2018-05-19 14:07 | CONS ---
Assessment/Plan Assessment/Plan Assessment/Plan (Daily) 62 yo with multiple medical problems and very complicated hospital course with multiple infectious complications on antibiotics, cardiomyopathy, ETOH abuse history, pancreatitis, Encephalopathy secondary to anoxic brain injury. We are asked to see for anemia and elevated Ca 19-9 #PANCREATITIS this is likely what is causing the elevated ca 19-9. 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 further aggressive GI w/u and ERCP on hold until goals of care discussions made with . # anemia Hgb- 8.3 today anemia possibly 2/2 to anemia of chronic disease/inflammation no evidence of nutritional deficiencies SPEP does not show M spike transfuse if hgb <7 1 u prbcs transfuse plt if ,10K or actively bleeding will follow periodically, please call Dr Maurilio Ceballos with acute questions Patient seen in collaboration with Dr Thorpe Consultation Date/Type/Reason Admit Date/Time Mar 31, 2018 at 17:58 Initial Consult Date 04/29/18 Requesting Provider: TAMARA GRAJEDA MD Date/Time of Note DATE: 05/19/18 TIME: 14:06 24 HR Interval Summary Free Text/Dictation Seems comfortable ERCP tomorrow -no new issues reported overnight Constitutional: requiring O2 Exam/Review of Systems Exam Vitals Vital Signs Date Temp Pulse Resp B/P (MAP) Pulse Ox O2 O2 Flow FiO2 Time Delivery Rate 05/19/18 103 12:29 05/19/18 98.8 32 122/92 96 11:55 (102) 05/19/18 30 11:13 05/18/18 Mechanical 16:03 Ventilator Intake and Output 05/18/18 05/18/18 05/19/18 1515:00 23:00 07:00 IntakeIntake Total 820 ml 670 ml OutputOutput Total 725 ml 800 ml BalanceBalance 95 ml -130 ml Constitutional: well developed, non-verbal, frail Psych: nl mood/affect Head: normocephalic Eyes: nl lids, nl sclera ENMT: nl external ears & nose Neck: supple, other (trach intact) Respiratory: diminished breath sounds (bilateral at bases) Cardiovascular: nl pulses, other (s1s2) Gastrointestinal: soft, other (gt intact) Musculoskeletal: nl gait and stance, muscle weakness, range of motion Extremities: normal pulses Neurological: unresponsive Results Result Diagram: 05/19/18 0601 05/19/18 0601 Results 24hrs Laboratory Tests Test 05/19/18 06:01 White Blood Count 12.5 #H Red Blood Count 2.99 L Hemoglobin 8.3 L Hematocrit 25.4 L Mean Corpuscular Volume 84.9 Mean Corpuscular Hemoglobin 27.8 L Mean Corpuscular Hemoglobin Concent 32.7 Red Cell Distribution Width 16.1 H Platelet Count 219 Mean Platelet Volume 10.5 H Immature Granulocytes % 0.900 H Neutrophils % Segmented Neutrophils % (Manual) 58 Band Neutrophils % (Manual) 29 H Lymphocytes % Lymphocytes % (Manual) 3 L Monocytes % Monocytes % (Manual) 9 Eosinophils % Basophils % Basophils % (Manual) 1 Nucleated Red Blood Cells % 0.0 Immature Granulocytes # 0.110 H Neutrophils # Neutrophils # (Manual) 7.7 H Band Neutrophils # 3.6 H Lymphocytes (Manual) 0.3 L Lymphocytes # Monocytes # Monocytes # (Manual) 1.1 H Eosinophils # Basophils # Basophils # (Manual) 0.1 H Nucleated Red Blood Cells # Platelet Estimate NORMAL Polychromasia 1+ Poikilocytosis 1+ Anisocytosis 1+ Microcytosis 1+ Ovalocytes 1+ Elliptocytes 1+ Sodium Level 142 Potassium Level 3.5 Chloride Level 116 H Carbon Dioxide Level 17 L Anion Gap 9 Blood Urea Nitrogen 34 H Creatinine 0.75 Est Glomerular Filtrat Rate mL/min > 60 Glucose Level 115 Calcium Level 8.9 Medications Medication Current Medications Collagenase (Santyl) 1 applic DAILY TOP Last administered on 05/19/18at 07:59; Admin Dose 1 APPLIC; Start 04/03/18 at 12:00 Lansoprazole (Prevacid) 30 mg HS PO Last administered on 05/18/18at 21:19; Admin Dose 30 MG; Start 04/20/18 at 21:00 Fluconazole (Diflucan) 100 mg DAILY PO Last administered on 05/19/18at 07:58; Admin Dose 100 MG; Start 04/21/18 at 14:00 Albuterol (Proventil 0.083% (Neb)) 2.5 mg Q3H RESP THERAPY PRN NEB WHEEZING AND SOB; Start 04/30/18 at 19:00 Ascorbic Acid (Vitamin C) 500 mg DAILY GTB Last administered on 05/19/18 07:58; Admin Dose 500 MG; Start 05/04/18 at 09:30 Zinc Sulfate (Zinc Sulfate) 220 mg DAILY GTB Last administered on 05/19/18 07:58; Admin Dose 220 MG; Start 05/04/18 at 09:30 Multivit/Ca Carb/ B Cmplx/FA/Prenat (Sofy-Sandoval) 1 tab DAILY GTB Last administered on 05/19/18 07:58; Admin Dose 1 TAB; Start 05/04/18 at 09:30 Acetaminophen (Tylenol Liquid) 650 mg Q4H PRN GTB MILD PAIN(1-3)OR ELEVATED TEMP Last administered on 05/17/18 21:50; Admin Dose 650 MG; Start 05/04/18 at 09:30 Acetaminophen (Tylenol Supp) 650 mg Q6H PRN [place] temp over 101; Start 05/04/18 at 09:30 Polyethylene Glycol (Miralax) 17 gm DAILY PRN GTB constipation; Start 05/04/18 at 16:00 Hydralazine HCl (Apresoline) 5 mg Q6H PRN IV ELEVATED BLOOD PRESSURE; Start 05/04/18 at 22:30 Aspirin (Aspirin) 81 mg DAILY PO Last administered on 05/19/18 07:58; Admin Dose 81 MG; Start 05/05/18 at 15:00 Atorvastatin Calcium (Lipitor) 10 mg HS PO Last administered on 05/18/18 21:19; Admin Dose 10 MG; Start 05/06/18 at 21:00 Sodium Hypochlorite (Dakin'S (Dilute )) 1 applic BID IRR Last administered on 05/19/18 07:59; Admin Dose 1 APPLIC; Start 05/09/18 at 15:00 Amikacin Sulfate (Amikacin Iv Per Pharmacy) AMIKACIN PER PHARMACY NOTE XX ; Start 05/15/18 at 11:30 Amikacin Sulfate 850 mg/Sodium Chloride 253.4 ml @ 250 mls/hr Q72H IVPB Last administered on 05/16/18 17:06; Admin Dose 250 MLS/HR; Start 05/10/18 at 15:00 Morphine Sulfate (morphine) 5 mg Q4H PRN GTB SEVERE PAIN LEVEL 7-10 Last administered on 2/21/19at 10:35; Admin Dose 5 MG; Start 05/11/18 at 14:00 YUDI GARCIA May 19, 2018 14:07
--- NOTE | 2018-05-19 14:39 | CONS ---
Assessment/Plan Assessment/Plan Assessment/Plan (Daily) 1. Severe acute on chronic anemia likely due to blood loss from gingival bleeding -improved 3. Chronic liver disease, alcohol related 4. Mild coagulopathy 5. Elevated lipase with mildly elevated CA 19-9 -on CT scan pancreas is normal -lipid panel wnl -CBD 6mm, LFT wnl -Radiology will not do MRCP because of vent 6. 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 Encephalopathy secondary to anoxic brain injury -acute on chronic? -Ct shows acute ischemic infarct, pt is on ASA 8. H/o duodenal ulcer 9. Complex UTI with lisa albicans, s/p diflucan -RESOLVED 10. 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 Persistent fevers -99.2 this am 12. Abnormal LFTs -liver disease -trending down 13. Acute non hemorrhagic infarcts noted on Brain CT 14. Hypoalbuminemia Plan: Dr Pelayo met with two family members, spouse was out of town. Family members will speak with pt's spouse regarding hospice care but for now, ERCP on hold until returns on Sunday. If decides to continue care we will plan on repeat ERCP toward end of week. Monitor LFT and WBC Monitor closely for GI bleeding and HH, Awaiting final decision from the family for possible ERCP on Sunday Consultation Date/Type/Reason Admit Date/Time Mar 31, 2018 at 17:58 Initial Consult Date 04/02/18 Requesting Provider: TAMARA GRAJEDA MD Date/Time of Note DATE: 05/19/18 TIME: 14:39 24 HR Interval Summary Subjective hx not possible: pt non-verbal, pt critical Exam/Review of Systems Exam Vitals Vital Signs Date Temp Pulse Resp B/P (MAP) Pulse Ox O2 O2 Flow FiO2 Time Delivery Rate 05/19/18 103 12:29 05/19/18 98.8 32 122/92 96 11:55 (102) 05/19/18 30 11:13 05/18/18 Mechanical 16:03 Ventilator Intake and Output 05/18/18 05/18/18 05/19/18 1515:00 23:00 07:00 IntakeIntake Total 820 ml 670 ml OutputOutput Total 725 ml 800 ml BalanceBalance 95 ml -130 ml Respiratory: clear to auscultation, normal air movement Results Result Diagram: 05/19/1860005/19/18 06 Results 24hrs Laboratory Tests Test 05/19/18 06:01 White Blood Count 12.5 #H Red Blood Count 2.99 L Hemoglobin 8.3 L Hematocrit 25.4 L Mean Corpuscular Volume 84.9 Mean Corpuscular Hemoglobin 27.8 L Mean Corpuscular Hemoglobin Concent 32.7 Red Cell Distribution Width 16.1 H Platelet Count 219 Mean Platelet Volume 10.5 H Immature Granulocytes % 0.900 H Neutrophils % Segmented Neutrophils % (Manual) 58 Band Neutrophils % (Manual) 29 H Lymphocytes % Lymphocytes % (Manual) 3 L Monocytes % Monocytes % (Manual) 9 Eosinophils % Basophils % Basophils % (Manual) 1 Nucleated Red Blood Cells % 0.0 Immature Granulocytes # 0.110 H Neutrophils # Neutrophils # (Manual) 7.7 H Band Neutrophils # 3.6 H Lymphocytes (Manual) 0.3 L Lymphocytes # Monocytes # Monocytes # (Manual) 1.1 H Eosinophils # Basophils # Basophils # (Manual) 0.1 H Nucleated Red Blood Cells # Platelet Estimate NORMAL Polychromasia 1+ Poikilocytosis 1+ Anisocytosis 1+ Microcytosis 1+ Ovalocytes 1+ Elliptocytes 1+ Sodium Level 142 Potassium Level 3.5 Chloride Level 116 H Carbon Dioxide Level 17 L Anion Gap 9 Blood Urea Nitrogen 34 H Creatinine 0.75 Est Glomerular Filtrat Rate mL/min > 60 Glucose Level 115 Calcium Level 8.9 Medications Medication Current Medications Collagenase (Santyl) 1 applic DAILY TOP Last administered on 05/19/18at 07:59; Admin Dose 1 APPLIC; Start 04/03/18 at 12:00 Lansoprazole (Prevacid) 30 mg HS PO Last administered on 05/18/18at 21:19; Admin Dose 30 MG; Start 04/20/18 at 21:00 Fluconazole (Diflucan) 100 mg DAILY PO Last administered on 05/19/18at 07:58; Admin Dose 100 MG; Start 04/21/18 at 14:00 Albuterol (Proventil 0.083% (Neb)) 2.5 mg Q3H RESP THERAPY PRN NEB WHEEZING AND SOB; Start 04/30/18 at 19:00 Ascorbic Acid (Vitamin C) 500 mg DAILY GTB Last administered on 05/19/18at 07:58; Admin Dose 500 MG; Start 05/04/18 at 09:30 Zinc Sulfate (Zinc Sulfate) 220 mg DAILY GTB Last administered on 05/19/18 07:58; Admin Dose 220 MG; Start 05/04/18 at 09:30 Multivit/Ca Carb/ B Cmplx/FA/Prenat (Sofy-Sandoval) 1 tab DAILY GTB Last administered on 05/19/18 07:58; Admin Dose 1 TAB; Start 05/04/18 at 09:30 Acetaminophen (Tylenol Liquid) 650 mg Q4H PRN GTB MILD PAIN(1-3)OR ELEVATED TEMP Last administered on 05/17/18 21:50; Admin Dose 650 MG; Start 05/04/18 at 09:30 Acetaminophen (Tylenol Supp) 650 mg Q6H PRN [place] temp over 101; Start 05/04/18 at 09:30 Polyethylene Glycol (Miralax) 17 gm DAILY PRN GTB constipation; Start 05/04/18 at 16:00 Hydralazine HCl (Apresoline) 5 mg Q6H PRN IV ELEVATED BLOOD PRESSURE; Start 05/04/18 at 22:30 Aspirin (Aspirin) 81 mg DAILY PO Last administered on 05/19/18 07:58; Admin Dose 81 MG; Start 05/05/18 at 15:00 Atorvastatin Calcium (Lipitor) 10 mg HS PO Last administered on 05/18/18 21:19; Admin Dose 10 MG; Start 05/06/18 at 21:00 Sodium Hypochlorite (Dakin'S (Dilute 40)) 1 applic BID IRR Last administered on 05/19/18 07:59; Admin Dose 1 APPLIC; Start 05/09/18 at 15:00 Amikacin Sulfate (Amikacin Iv Per Pharmacy) AMIKACIN PER PHARMACY NOTE XX ; Start 05/15/18 at 11:30 Amikacin Sulfate 850 mg/Sodium Chloride 253.4 ml @ 250 mls/hr Q72H IVPB Last administered on 05/16/18 17:06; Admin Dose 250 MLS/HR; Start 05/10/18 at 15:00 Morphine Sulfate (morphine) 5 mg Q4H PRN GTB SEVERE PAIN LEVEL 7-10 Last administered on 05/16/18 10:35; Admin Dose 5 MG; Start 05/11/18 at 14:00 RASHEEDA MEJIA MD May 19, 2018 14:39
--- NOTE | 2018-05-19 17:02 | PN ---
Date/Time of Note Date/Time of Note DATE: 05/19/18 TIME: 17:01 Assessment/Plan VTE Prophylaxis Risk score (from Ns)>0 risk: 6 SCD applied (from Ns): Yes SCD contraindicated: other Pharmacological prophylaxis: other Lines/Catheters [facility]from [facility] Saline Lock Urinary Cath still in place: Yes Reason Cath still needed: terminal illness/intractable pain Assessment/Plan Hospital Course # UTI # Oral gingival bleeding likely due to dentures, was seen by ENT s/p endoscopy # Sepsis with Fevers with hx Pneumonia +UTI and ? Pancreatitis +multiple wounds, ucx+ lias # VDRF # CKD , resolved # Metabolic acidosis # DILATED CARDIOMYOPATHY # HX ALCOHOL ABUSE # Multiple wounds > decub # anemia plan continue same Result Diagram: 05/19/18 0601 05/19/18 0601 Results 24hrs Laboratory Tests Test 05/19/18 06:01 White Blood Count 12.5 #H Red Blood Count 2.99 L Hemoglobin 8.3 L Hematocrit 25.4 L Mean Corpuscular Volume 84.9 Mean Corpuscular Hemoglobin 27.8 L Mean Corpuscular Hemoglobin Concent 32.7 Red Cell Distribution Width 16.1 H Platelet Count 219 Mean Platelet Volume 10.5 H Immature Granulocytes % 0.900 H Neutrophils % Segmented Neutrophils % (Manual) 58 Band Neutrophils % (Manual) 29 H Lymphocytes % Lymphocytes % (Manual) 3 L Monocytes % Monocytes % (Manual) 9 Eosinophils % Basophils % Basophils % (Manual) 1 Nucleated Red Blood Cells % 0.0 Immature Granulocytes # 0.110 H Neutrophils # Neutrophils # (Manual) 7.7 H Band Neutrophils # 3.6 H Lymphocytes (Manual) 0.3 L Lymphocytes # Monocytes # Monocytes # (Manual) 1.1 H Eosinophils # Basophils # Basophils # (Manual) 0.1 H Nucleated Red Blood Cells # Platelet Estimate NORMAL Polychromasia 1+ Poikilocytosis 1+ Anisocytosis 1+ Microcytosis 1+ Ovalocytes 1+ Elliptocytes 1+ Sodium Level 142 Potassium Level 3.5 Chloride Level 116 H Carbon Dioxide Level 17 L Anion Gap 9 Blood Urea Nitrogen 34 H Creatinine 0.75 Est Glomerular Filtrat Rate mL/min > 60 Glucose Level 115 Calcium Level 8.9 Subjective 24 Hr Interval Summary Subjective hx not possible: pt non-verbal Respiratory: no complaints Cardiovascular: no complaints Exam/Review of Systems Exam Vitals Vital Signs Date Temp Pulse Resp B/P (MAP) Pulse Ox O2 O2 Flow FiO2 Time Delivery Rate 05/19/18 102 16:53 05/19/18 31 100 30 15:50 05/19/18 98.1 129/89 15:35 (102) 05/18/18 Mechanical 16:03 Ventilator Intake and Output 05/18/18 05/18/18 05/19/18 1515:00 23:00 07:00 IntakeIntake Total 820 ml 670 ml OutputOutput Total 725 ml 800 ml BalanceBalance 95 ml -130 ml Respiratory: diminished breath sounds Cardiovascular: regular rate and rhythm Gastrointestinal: soft, bowel sounds (+) Extremities: No edema Results Results 24hrs Laboratory Tests Test 05/19/18 06:01 White Blood Count 12.5 #H Red Blood Count 2.99 L Hemoglobin 8.3 L Hematocrit 25.4 L Mean Corpuscular Volume 84.9 Mean Corpuscular Hemoglobin 27.8 L Mean Corpuscular Hemoglobin Concent 32.7 Red Cell Distribution Width 16.1 H Platelet Count 219 Mean Platelet Volume 10.5 H Immature Granulocytes % 0.900 H Neutrophils % Segmented Neutrophils % (Manual) 58 Band Neutrophils % (Manual) 29 H Lymphocytes % Lymphocytes % (Manual) 3 L Monocytes % Monocytes % (Manual) 9 Eosinophils % Basophils % Basophils % (Manual) 1 Nucleated Red Blood Cells % 0.0 Immature Granulocytes # 0.110 H Neutrophils # Neutrophils # (Manual) 7.7 H Band Neutrophils # 3.6 H Lymphocytes (Manual) 0.3 L Lymphocytes # Monocytes # Monocytes # (Manual) 1.1 H Eosinophils # Basophils # Basophils # (Manual) 0.1 H Nucleated Red Blood Cells # Platelet Estimate NORMAL Polychromasia 1+ Poikilocytosis 1+ Anisocytosis 1+ Microcytosis 1+ Ovalocytes 1+ Elliptocytes 1+ Sodium Level 142 Potassium Level 3.5 Chloride Level 116 H Carbon Dioxide Level 17 L Anion Gap 9 Blood Urea Nitrogen 34 H Creatinine 0.75 Est Glomerular Filtrat Rate mL/min > 60 Glucose Level 115 Calcium Level 8.9 Medications Medication Current Medications Collagenase (Santyl) 1 applic DAILY TOP Last administered on 05/19/18at 07:59; Admin Dose 1 APPLIC; Start 04/03/18 at 12:00 Lansoprazole (Prevacid) 30 mg HS PO Last administered on 05/18/18at 21:19; Admin Dose 30 MG; Start 04/20/18 at 21:00 Fluconazole (Diflucan) 100 mg DAILY PO Last administered on 05/19/18 07:58; Admin Dose 100 MG; Start 04/21/18 at 14:00 Albuterol (Proventil 0.083% (Neb)) 2.5 mg Q3H RESP THERAPY PRN NEB WHEEZING AND SOB; Start 04/30/18 at 19:00 Ascorbic Acid (Vitamin C) 500 mg DAILY GTB Last administered on 05/19/18 07:58; Admin Dose 500 MG; Start 05/04/18 at 09:30 Zinc Sulfate (Zinc Sulfate) 220 mg DAILY GTB Last administered on 05/19/18 07:58; Admin Dose 220 MG; Start 05/04/18 at 09:30 Multivit/Ca Carb/ B Cmplx/FA/Prenat (Sofy-Sandoval) 1 tab DAILY GTB Last administered on 05/19/18 07:58; Admin Dose 1 TAB; Start 05/04/18 at 09:30 Acetaminophen (Tylenol Liquid) 650 mg Q4H PRN GTB MILD PAIN(1-3)OR ELEVATED TEMP Last administered on 05/17/18 21:50; Admin Dose 650 MG; Start 05/04/18 at 09:30 Acetaminophen (Tylenol Supp) 650 mg Q6H PRN [place] temp over 101; Start 05/04/18 at 09:30 Polyethylene Glycol (Miralax) 17 gm DAILY PRN GTB constipation; Start 05/04/18 at 16:00 Hydralazine HCl (Apresoline) 5 mg Q6H PRN IV ELEVATED BLOOD PRESSURE; Start 05/04/18 at 22:30 Aspirin (Aspirin) 81 mg DAILY PO Last administered on 05/19/18 07:58; Admin Dose 81 MG; Start 05/05/18 at 15:00 Atorvastatin Calcium (Lipitor) 10 mg HS PO Last administered on 05/18/18 21:19; Admin Dose 10 MG; Start 05/06/18 at 21:00 Sodium Hypochlorite (Dakin'S (Dilute )) 1 applic BID IRR Last administered on 05/19/18 07:59; Admin Dose 1 APPLIC; Start 05/09/18 at 15:00 Amikacin Sulfate (Amikacin Iv Per Pharmacy) AMIKACIN PER PHARMACY NOTE XX ; Start 05/15/18 at 11:30 Amikacin Sulfate 850 mg/Sodium Chloride 253.4 ml @ 250 mls/hr Q72H IVPB Last administered on 05/16/18at 17:06; Admin Dose 250 MLS/HR; Start 05/10/18 at 15:00 Morphine Sulfate (morphine) 5 mg Q4H PRN GTB SEVERE PAIN LEVEL 7-10 Last administered on 05/16/18at 10:35; Admin Dose 5 MG; Start 05/11/18 at 14:00 GARFIELD MOREAU MD May 19, 2018 17:02
[2018-05-19] MEDS: SOD CHLORIDE 0.9% IVPB SCH (18:46)
[2018-05-19] MEDS: AMIKACIN IVPB SCH (18:46)
[2018-05-19] MEDS: LANSOPRAZOLE 30 MG CAP PO SCH (20:13)
[2018-05-19] MEDS: ATORVASTATIN 10 MG TAB PO SCH (20:13)
[2018-05-20] VITALS (23 sets, daily range): BP systolic 114–134; BP diastolic 83–90; PULSE 95–115; RESP 16–35
--- NOTE | 2018-05-20 07:31 | CONS ---
Assessment/Plan Assessment/Plan Hospital Course (Demo Recall) 62 male with excessively bleeding gingival tissue and severe anemia 1. Severe acute on chronic anemia likely due to blood loss from gingival bleeding -improved 3. Chronic liver disease, alcohol related 4. Mild coagulopathy 5. Elevated lipase with mildly elevated CA 19-9 -on CT scan pancreas is normal -lipid panel wnl -CBD 6mm, LFT wnl -Radiology will not do MRCP because of vent 6. 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 Encephalopathy secondary to anoxic brain injury -acute on chronic? -Ct shows acute ischemic infarct, pt is on ASA 8. H/o duodenal ulcer 9. Complex UTI with lisa albicans, s/p diflucan -RESOLVED 10. 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 Persistent fevers -99.2 this am 12. Abnormal LFTs -liver disease -trending down 13. Acute non hemorrhagic infarcts noted on Brain CT Plan: Unable to do ERCP due to scheduling conflicts. ERCP tomorrow Monitor LFT and WBC Monitor closely for GI bleeding and HH, Pt examined and plan of care discussed with Dr. Peña Consultation Date/Type/Reason Admit Date/Time Mar 31, 2018 at 17:58 Initial Consult Date 04/02/18 Requesting Provider: TAMARA GRAJEDA MD Date/Time of Note DATE: 05/20/18 TIME: 07:27 24 HR Interval Summary Free Text/Dictation NO acute changes. NPO. Exam/Review of Systems Exam Vitals Vital Signs Date Temp Pulse Resp B/P (MAP) Pulse Ox O2 O2 Flow FiO2 Time Delivery Rate 05/20/18 101 24 98 30 04:56 05/20/18 98.9 115/85 03:43 (95) 05/18/18 Mechanical 16:03 Ventilator Intake and Output 05/19/18 05/19/18 05/20/18 1515:00 23:00 07:00 IntakeIntake Total 670 ml 240 ml OutputOutput Total 500 ml 500 ml BalanceBalance 170 ml -260 ml Constitutional: alert Head: normocephalic ENMT: other (trach to vent, old blood in teeth ) Respiratory: diminished breath sounds Cardiovascular: regular rate and rhythm Gastrointestinal: soft, bowel sounds Neurological: other (non communicative) Results Result Diagram: 05/19/18 0601 05/20/18 0609 Results 24hrs Laboratory Tests Test 05/20/18 06:09 White Blood Count Pending Red Blood Count Pending Hemoglobin Pending Hematocrit Pending Mean Corpuscular Volume Pending Mean Corpuscular Hemoglobin Pending Mean Corpuscular Hemoglobin Concent Pending Red Cell Distribution Width Pending Platelet Count Pending Mean Platelet Volume Pending Sodium Level 141 Potassium Level 4.1 Chloride Level 116 H Carbon Dioxide Level 17 L Anion Gap 8 Blood Urea Nitrogen 39 H Creatinine 0.86 Est Glomerular Filtrat Rate mL/min > 60 Glucose Level 89 Calcium Level 8.8 Total Bilirubin 0.2 Direct Bilirubin 0.00 Indirect Bilirubin 0.2 Aspartate Amino Transf (AST/SGOT) 91 H Alanine Aminotransferase (ALT/SGPT) 22 Alkaline Phosphatase 248 H Total Protein 6.7 Albumin 2.6 L Globulin 4.10 H Albumin/Globulin Ratio 0.63 Amylase Level 402 H Medications Medication Current Medications Collagenase (Santyl) 1 applic DAILY TOP Last administered on 05/19/18 07:59; Admin Dose 1 APPLIC; Start 04/03/18 at 12:00 Lansoprazole (Prevacid) 30 mg HS PO Last administered on 05/19/18 20:13; Admin Dose 30 MG; Start 04/20/18 at 21:00 Fluconazole (Diflucan) 100 mg DAILY PO Last administered on 05/19/18 07:58; Admin Dose 100 MG; Start 04/21/18 at 14:00 Albuterol (Proventil 0.083% (Neb)) 2.5 mg Q3H RESP THERAPY PRN NEB WHEEZING AND SOB; Start 04/30/18 at 19:00 Ascorbic Acid (Vitamin C) 500 mg DAILY GTB Last administered on 05/19/18 07:58; Admin Dose 500 MG; Start 05/04/18 at 09:30 Zinc Sulfate (Zinc Sulfate) 220 mg DAILY GTB Last administered on 05/19/18 07:58; Admin Dose 220 MG; Start 05/04/18 at 09:30 Multivit/Ca Carb/ B Cmplx/FA/Prenat (Sofy-Sandoval) 1 tab DAILY GTB Last administered on 05/19/18 07:58; Admin Dose 1 TAB; Start 05/04/18 at 09:30 Acetaminophen (Tylenol Liquid) 650 mg Q4H PRN GTB MILD PAIN(1-3)OR ELEVATED TEMP Last administered on 05/17/18 21:50; Admin Dose 650 MG; Start 05/04/18 at 09:30 Acetaminophen (Tylenol Supp) 650 mg Q6H PRN [place] temp over 101; Start 05/04/18 at 09:30 Polyethylene Glycol (Miralax) 17 gm DAILY PRN GTB constipation; Start 05/04/18 at 16:00 Hydralazine HCl (Apresoline) 5 mg Q6H PRN IV ELEVATED BLOOD PRESSURE; Start 05/04/18 at 22:30 Aspirin (Aspirin) 81 mg DAILY PO Last administered on 05/19/18 07:58; Admin Dose 81 MG; Start 05/05/18 at 15:00 Atorvastatin Calcium (Lipitor) 10 mg HS PO Last administered on 05/19/18 20:13; Admin Dose 10 MG; Start 05/06/18 at 21:00 Sodium Hypochlorite (Dakin'S (Dilute )) 1 applic BID IRR Last administered on 05/19/18 20:13; Admin Dose 1 APPLIC; Start 05/09/18 at 15:00 Amikacin Sulfate (Amikacin Iv Per Pharmacy) AMIKACIN PER PHARMACY NOTE XX ; Start 05/15/18 at 11:30 Amikacin Sulfate 850 mg/Sodium Chloride 253.4 ml @ 250 mls/hr Q72H IVPB Last administered on 05/19/18 18:46; Admin Dose 250 MLS/HR; Start 05/10/18 at 15:00 Morphine Sulfate (morphine) 5 mg Q4H PRN GTB SEVERE PAIN LEVEL 7-10 Last administered on 05/16/18 10:35; Admin Dose 5 MG; Start 05/11/18 at 14:00 QI CHRISTIANSON May 20, 2018 07:31
[2018-05-20] MEDS: BALSAM PERU/CASTOR OIL 60 GM TUBE TOP SCH ×2 (07:54→21:19)
[2018-05-20] MEDS: ASCORBIC ACID 500 MG TAB GTB SCH (07:54)
[2018-05-20] MEDS: ZINC SULFATE 220 MG CAP GTB SCH (07:54)
[2018-05-20] MEDS: MULTIVIT/CA CARB/B CMPLX/FA TAB GTB SCH (07:54)
[2018-05-20] MEDS: FLUCONAZOLE 100 MG TAB PO SCH (07:54)
[2018-05-20] MEDS: COLLAGENASE 5 GM (UD JAR) TOP SCH (07:54)
[2018-05-20] MEDS: SODIUM HYPOCHLORITE (1/40) 1 APPLIC BTL IRR SCH ×2 (07:55→21:19)
--- NOTE | 2018-05-20 10:54 | PN ---
Date/Time of Note Date/Time of Note DATE: 05/20/18 TIME: 10:52 Assessment/Plan VTE Prophylaxis Risk score (from Ns)>0 risk: 5 SCD applied (from Ns): Yes Pharmacological prophylaxis: NA/contraindicated Pharm contraindication: low risk/ambulating Lines/Catheters IV Catheter Type (from Nrsg): Saline Lock Urinary Cath still in place: Yes Reason Cath still needed: urinary retention Assessment/Plan Hospital Course 62 y/o with # Oral gingival bleeding likely due to dentures, seen by ENT s/p endoscopy # Sepsis with Fevers with hx Pneumonia +UTI and ? Pancreatitis +multiple wounds, ucx+ lisa, wound cx+ MRSA/ pseudomonas, +resp culture +pseudomonas # Blood loss anemia due to oral gingival bleeding # VDRF # CKD with worsening renal failure>resolved # Metabolic acidosis #DILATED CARDIOMYOPATHY # HX ALCOHOL ABUSE # Multiple wounds > decub # Pancreatitis with elevated Lipase # Enterocoltiis on CT # AMS due to Metabolic encephalopathy with . Possible subacute infarct in the left cerebellar hemisphere and cerebellar peduncle> much improved> now again AMS? encephalopathy> now with new stroke on 05/05/18 #Ongoing fevers likely secondary to UTI/hcap now improved> again with fevers> +psedomonas in sputum has again gram-negative in the urine plan -on amikacin - WBC scan neg - ERCP today - fu neuro recs - Family meeting discussed goals of care, again with Dr. Anthony / family coming back, but they decided continuing everything from all - Heme consult fo anemia however likely secondary to anemia of chronic disease - GI prophylaxsis - monitor oral bleeding - labs am - hydralzine prn Plan is to likely discharge back to the nursing facility after ERCP - Result Diagram: 05/20/18 0816 05/20/18 0609 Results 24hrs Laboratory Tests Test 05/20/18 06:09 05/20/18 08:16 05/20/18 08:20 Sodium Level 141 Potassium Level 4.1 Chloride Level 116 H Carbon Dioxide Level 17 L Anion Gap 8 Blood Urea Nitrogen 39 H Creatinine 0.86 Est Glomerular Filtrat Rate mL/min > 60 Glucose Level 89 Calcium Level 8.8 Total Bilirubin 0.2 Direct Bilirubin 0.00 Indirect Bilirubin 0.2 Aspartate Amino Transf (AST/SGOT) 91 H Alanine Aminotransferase (ALT/SGPT) 22 Alkaline Phosphatase 248 H Total Protein 6.7 Albumin 2.6 L Globulin 4.10 H Albumin/Globulin Ratio 0.63 Amylase Level 402 H White Blood Count 12.0 H Red Blood Count 3.02 L Hemoglobin 8.4 L Hematocrit 25.9 L Mean Corpuscular Volume 85.8 Mean Corpuscular Hemoglobin 27.8 L Mean Corpuscular Hemoglobin Concent 32.4 Red Cell Distribution Width 16.5 H Platelet Count 193 Mean Platelet Volume 10.2 Immature Granulocytes % 1.200 H Neutrophils % Segmented Neutrophils % (Manual) 74 Band Neutrophils % (Manual) 16 H Lymphocytes % Lymphocytes % (Manual) 3 L Reactive Lymphocytes % (Manual) 2 H Monocytes % Monocytes % (Manual) 4 Eosinophils % Basophils % Basophils % (Manual) 1 Nucleated Red Blood Cells % 0.0 Immature Granulocytes # 0.150 H Neutrophils # Neutrophils # (Manual) 9.1 H Band Neutrophils # 1.9 H Lymphocytes (Manual) 0.3 L Lymphocytes # Reactive Lymphocytes # 0.2 H Monocytes # Monocytes # (Manual) 0.4 Eosinophils # Basophils # Basophils # (Manual) 0.1 H Nucleated Red Blood Cells # Platelet Estimate NORMAL Giant Platelets 2 H Polychromasia 1+ Poikilocytosis 1+ Anisocytosis 1+ Microcytosis 1+ Macrocytosis 1+ Prothrombin Time 13.7 Prothrombin Time Ratio 1.1 INR International Normalized Ratio 1.04 Subjective 24 Hr Interval Summary Free Text/Dictation Scheduled for ERCP today. Does not follow any commands Exam/Review of Systems Exam Vitals Vital Signs Date Temp Pulse Resp B/P (MAP) Pulse Ox O2 O2 Flow FiO2 Time Delivery Rate 05/20/18 104 33 100 30 09:40 05/20/18 97.8 118/84 07:45 (95) 05/18/18 Mechanical 16:03 Ventilator Intake and Output 05/19/18 05/19/18 05/20/18 1515:00 23:00 07:00 IntakeIntake Total 670 ml 240 ml OutputOutput Total 500 ml 500 ml BalanceBalance 170 ml -260 ml Exam Constitutional: non-verbal, frail Neck: other (tracheostomy) Respiratory: diminished breath sounds Cardiovascular: regular rate and rhythm Gastrointestinal: soft, other (GT) Genitourinary - Male: other (mullins) Results Results 24hrs Laboratory Tests Test 05/20/18 06:09 05/20/18 08:16 05/20/18 08:20 Sodium Level 141 Potassium Level 4.1 Chloride Level 116 H Carbon Dioxide Level 17 L Anion Gap 8 Blood Urea Nitrogen 39 H Creatinine 0.86 Est Glomerular Filtrat Rate mL/min > 60 Glucose Level 89 Calcium Level 8.8 Total Bilirubin 0.2 Direct Bilirubin 0.00 Indirect Bilirubin 0.2 Aspartate Amino Transf (AST/SGOT) 91 H Alanine Aminotransferase (ALT/SGPT) 22 Alkaline Phosphatase 248 H Total Protein 6.7 Albumin 2.6 L Globulin 4.10 H Albumin/Globulin Ratio 0.63 Amylase Level 402 H White Blood Count 12.0 H Red Blood Count 3.02 L Hemoglobin 8.4 L Hematocrit 25.9 L Mean Corpuscular Volume 85.8 Mean Corpuscular Hemoglobin 27.8 L Mean Corpuscular Hemoglobin Concent 32.4 Red Cell Distribution Width 16.5 H Platelet Count 193 Mean Platelet Volume 10.2 Immature Granulocytes % 1.200 H Neutrophils % Segmented Neutrophils % (Manual) 74 Band Neutrophils % (Manual) 16 H Lymphocytes % Lymphocytes % (Manual) 3 L Reactive Lymphocytes % (Manual) 2 H Monocytes % Monocytes % (Manual) 4 Eosinophils % Basophils % Basophils % (Manual) 1 Nucleated Red Blood Cells % 0.0 Immature Granulocytes # 0.150 H Neutrophils # Neutrophils # (Manual) 9.1 H Band Neutrophils # 1.9 H Lymphocytes (Manual) 0.3 L Lymphocytes # Reactive Lymphocytes # 0.2 H Monocytes # Monocytes # (Manual) 0.4 Eosinophils # Basophils # Basophils # (Manual) 0.1 H Nucleated Red Blood Cells # Platelet Estimate NORMAL Giant Platelets 2 H Polychromasia 1+ Poikilocytosis 1+ Anisocytosis 1+ Microcytosis 1+ Macrocytosis 1+ Prothrombin Time 13.7 Prothrombin Time Ratio 1.1 INR International Normalized Ratio 1.04 Medications Medication Current Medications Collagenase (Santyl) 1 applic DAILY TOP Last administered on 05/20/18at 07:54; Admin Dose 1 APPLIC; Start 04/03/18 at 12:00 Lansoprazole (Prevacid) 30 mg HS PO Last administered on 05/19/18at 20:13; Admin Dose 30 MG; Start 04/20/18 at 21:00 Fluconazole (Diflucan) 100 mg DAILY PO Last administered on 05/20/18at 07:54; Admin Dose 100 MG; Start 04/21/18 at 14:00 Albuterol (Proventil 0.083% (Neb)) 2.5 mg Q3H RESP THERAPY PRN NEB WHEEZING AND SOB; Start 04/30/18 at 19:00 Ascorbic Acid (Vitamin C) 500 mg DAILY GTB Last administered on 05/20/18 07: 54; Admin Dose 500 MG; Start 05/04/18 at 09:30 Zinc Sulfate (Zinc Sulfate) 220 mg DAILY GTB Last administered on 05/20/18 07:54; Admin Dose 220 MG; Start 05/04/18 at 09:30 Multivit/Ca Carb/ B Cmplx/FA/Prenat (Sofy-Sandoval) 1 tab DAILY GTB Last administered on 05/20/18 07:54; Admin Dose 1 TAB; Start 05/04/18 at 09:30 Acetaminophen (Tylenol Liquid) 650 mg Q4H PRN GTB MILD PAIN(1-3)OR ELEVATED TEMP Last administered on 05/17/18 21:50; Admin Dose 650 MG; Start 05/04/18 at 09:30 Acetaminophen (Tylenol Supp) 650 mg Q6H PRN [place] temp over 101; Start 05/04/18 at 09:30 Polyethylene Glycol (Miralax) 17 gm DAILY PRN GTB constipation; Start 05/04/18 at 16:00 Hydralazine HCl (Apresoline) 5 mg Q6H PRN IV ELEVATED BLOOD PRESSURE; Start 05/04/18 at 22:30 Aspirin (Aspirin) 81 mg DAILY PO Last administered on 05/19/18 07:58; Admin Dose 81 MG; Start 05/05/18 at 15:00; Status Hold Atorvastatin Calcium (Lipitor) 10 mg HS PO Last administered on 05/19/18 20:13; Admin Dose 10 MG; Start 05/06/18 at 21:00 Sodium Hypochlorite (Dakin'S (Dilute )) 1 applic BID IRR Last administered on 05/20/18 07:55; Admin Dose 1 APPLIC; Start 05/09/18 at 15:00 Amikacin Sulfate (Amikacin Iv Per Pharmacy) AMIKACIN PER PHARMACY NOTE XX ; Start 05/15/18 at 11:30 Amikacin Sulfate 850 mg/Sodium Chloride 253.4 ml @ 250 mls/hr Q72H IVPB Last administered on 05/19/18 18:46; Admin Dose 250 MLS/HR; Start 05/10/18 at 15:00 Morphine Sulfate (morphine) 5 mg Q4H PRN GTB SEVERE PAIN LEVEL 7-10 Last administered on 05/16/18at 10:35; Admin Dose 5 MG; Start 05/11/18 at 14:00 TAMARA GRAJEDA MD May 20, 2018 10:54
--- NOTE | 2018-05-20 11:27 | PN ---
Date/Time of Note Date/Time of Note DATE: 05/20/18 TIME: 11:22 Assessment/Plan Lines/Catheters IV Catheter Type (from Nrs): Saline Lock Schwartz in Place (from Nrs): Yes Assessment/Plan Chief Complaint/Hosp Course 1. Decubitus pressure ulcers with necrosis s/p exc milena 04/30 -cont Local care -Offload -Nutritional optimization -Vitamin C -Short-term zinc -further debridement prn > spoke with regarding further debridement, at this time she would like to hold off on further debridements and continue only with local care. 2. Functional quadriplegia with history of stroke secondary to drug and alcohol abuse, chronic encephalopathy with acute nonhemorrhagic infarcts seen on recent ct -per neuro -Medical optimization as above -pending final decision re goals of care 3. Poor quality of life -s/p family meeting >pending final decision re goals of care with 4. Chronic renal disease -Judicious fluid management -Minimize nephrotoxic agents if possible 5. Dysphagia on tube feeds 6. Anemia -Monitor 7. Ventilator dependent respiratory failure -Ventilator management and pulmonary toilet 8. Abnormal lipase and ca19-9 s/p ercp 04/30 with stricture and sphincterotomy -repeat ercp per gi held 04/27 acute strokes -trend 9. Dilated cardiomyopathy with congestive heart failure and coronary artery disease with history of hypertension -Cardiac optimization -Judicious fluid management -Electrolyte optimization Thank you. Patient seen and examined in collaboration with Dr. Chet Melvin. Subjective 24 Hr Interval Summary Appears comfortable. Nonverbal indicators of pain not present. No fevers, congested cough, labored breathing, arrhythmias, vomiting, diarrhea, seizure, rash, excessive wound drainage or odor. Exam/Review of Systems Vital Signs Vitals Vital Signs Date Temp Pulse Resp B/P (MAP) Pulse Ox O2 O2 Flow FiO2 Time Delivery Rate 05/20/18 104 33 100 30 09:40 05/20/18 97.8 118/84 07:45 (95) 05/18/18 Mechanical 16:03 Ventilator Intake and Output 05/19/18 05/19/18 05/20/18 1515:00 23:00 07:00 IntakeIntake Total 670 ml 240 ml OutputOutput Total 500 ml 500 ml BalanceBalance 170 ml -260 ml Exam Free Text/Dictation Constitutional: No alert, No oriented Psych: confusion; No nl mood/affect Head: normocephalic Eyes: nl conjunctiva, PERRL; No icteric ENMT: nl lips & teeth, mucosa pink and dry, Neck: supple, jvd (Minimal), other (Trach in place) Respiratory: No congested cough, No labored breathing, No wheezing Cardiovascular: regular rate and rhythm; No edema Gastrointestinal: soft, non-tender, other (PEG); No distended, No rebound or guarding Genitourinary - Male: nl penis Musculoskeletal: No nl gait and stance, No joint tenderness Extremities: edema; No calf tenderness, No tenderness Neurological: No nl mental status, No nl speech, No nl strength Skin: rash or lesions (bilat buttock pressure decubitus wounds min debris/slough, granulating, scant drainage, no odor; Lower extremity wounds), ecchymosis; No nl turgor, No diaphoresis Lymph: No nl lymph nodes Results Result Diagram: 05/20/18 0816 05/20/18 0609 AURE ENRIQUEZ NP May 20, 2018 11:27
--- NOTE | 2018-05-20 14:43 | CONS ---
Assessment/Plan Assessment/Plan Hospital Course (Demo Recall) No acute changes overnight patient is afebrile in no distress, family at bedside WBC 12 H&H 8.4 and 25.9 platelets 193 bands 16 BUN 39 creatinine 0.86 Microbiology: Urine culture on May 16 negative Indwelling: Trach PEG Schwartz. Physical examination: Chronically ill-appearing elderly man who is noncommunicative in no distress. Head atraumatic normocephalic sclera nonicteric neck is supple tracheostomy present chest rise symmetrical breath sounds diminished bases heart: S1-S2. Abdomen soft bowel sounds present. Extremities without cyanosis. Skin: Patient has multiple pressure sores he has a dry blood on the right lower lip Assessment: 1. S/p sepsis secondary to urinary tract infection and HCAP 2. 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 VDRF 3. Dysphagia 4. Chronic encephalopathy 5. History of cardiomyopathy 6. Sacral decub, s/p debridement 04/30/18 7. MRSA nares colonization 8. Elevated amylase and lipase of unclear etiology Plan: Clinically unchanged, wbc labeled nuclear scan negative, repeat urine culture negative, will discontinue antibiotics today. If patient spikes fever of 101 but will reculture him. Follow chest x-ray in a.m. GI recommendations noted, plan for repeat ERCP Consultation Date/Type/Reason Admit Date/Time Mar 31, 2018 at 17:58 Initial Consult Date 04/02/18 Type of Consult id Requesting Provider: TAMARA GRAJEDA MD Date/Time of Note DATE: 05/20/18 TIME: 14:41 Exam/Review of Systems Exam Vitals Vital Signs Date Temp Pulse Resp B/P (MAP) Pulse Ox O2 O2 Flow FiO2 Time Delivery Rate 05/20/18 104 32 100 30 13:35 05/20/18 97.7 134/90 11:39 (105) 05/18/18 Mechanical 16:03 Ventilator Intake and Output 05/19/18 05/19/18 05/20/18 1515:00 23:00 07:00 IntakeIntake Total 670 ml 240 ml OutputOutput Total 500 ml 500 ml BalanceBalance 170 ml -260 ml Results Result Diagram: 05/20/18 0816 05/20/18 0609 Results 24hrs Laboratory Tests Test 05/20/18 06:09 05/20/18 08:16 05/20/18 08:20 Sodium Level 141 Potassium Level 4.1 Chloride Level 116 H Carbon Dioxide Level 17 L Anion Gap 8 Blood Urea Nitrogen 39 H Creatinine 0.86 Est Glomerular Filtrat Rate mL/min > 60 Glucose Level 89 Calcium Level 8.8 Total Bilirubin 0.2 Direct Bilirubin 0.00 Indirect Bilirubin 0.2 Aspartate Amino Transf (AST/SGOT) 91 H Alanine Aminotransferase (ALT/SGPT) 22 Alkaline Phosphatase 248 H Total Protein 6.7 Albumin 2.6 L Globulin 4.10 H Albumin/Globulin Ratio 0.63 Amylase Level 402 H White Blood Count 12.0 H Red Blood Count 3.02 L Hemoglobin 8.4 L Hematocrit 25.9 L Mean Corpuscular Volume 85.8 Mean Corpuscular Hemoglobin 27.8 L Mean Corpuscular Hemoglobin Concent 32.4 Red Cell Distribution Width 16.5 H Platelet Count 193 Mean Platelet Volume 10.2 Immature Granulocytes % 1.200 H Neutrophils % Segmented Neutrophils % (Manual) 74 Band Neutrophils % (Manual) 16 H Lymphocytes % Lymphocytes % (Manual) 3 L Reactive Lymphocytes % (Manual) 2 H Monocytes % Monocytes % (Manual) 4 Eosinophils % Basophils % Basophils % (Manual) 1 Nucleated Red Blood Cells % 0.0 Immature Granulocytes # 0.150 H Neutrophils # Neutrophils # (Manual) 9.1 H Band Neutrophils # 1.9 H Lymphocytes (Manual) 0.3 L Lymphocytes # Reactive Lymphocytes # 0.2 H Monocytes # Monocytes # (Manual) 0.4 Eosinophils # Basophils # Basophils # (Manual) 0.1 H Nucleated Red Blood Cells # Platelet Estimate NORMAL Giant Platelets 2 H Polychromasia 1+ Poikilocytosis 1+ Anisocytosis 1+ Microcytosis 1+ Macrocytosis 1+ Prothrombin Time 13.7 Prothrombin Time Ratio 1.1 INR International Normalized Ratio 1.04 Medications Medication Current Medications Collagenase (Santyl) 1 applic DAILY TOP Last administered on 05/20/18at 07:54; Admin Dose 1 APPLIC; Start 04/03/18 at 12:00 Lansoprazole (Prevacid) 30 mg HS PO Last administered on 05/19/18at 20:13; Admin Dose 30 MG; Start 04/20/18 at 21:00 Fluconazole (Diflucan) 100 mg DAILY PO Last administered on 05/20/18at 07:54; Admin Dose 100 MG; Start 04/21/18 at 14:00 Albuterol (Proventil 0.083% (Neb)) 2.5 mg Q3H RESP THERAPY PRN NEB WHEEZING AND SOB; Start 04/30/18 at 19:00 Ascorbic Acid (Vitamin C) 500 mg DAILY GTB Last administered on 05/20/18 07:54; Admin Dose 500 MG; Start 05/04/18 at 09:30 Zinc Sulfate (Zinc Sulfate) 220 mg DAILY GTB Last administered on 05/20/18 07:54; Admin Dose 220 MG; Start 05/04/18 at 09:30 Multivit/Ca Carb/ B Cmplx/FA/Prenat (Sofy-Sandoval) 1 tab DAILY GTB Last administered on 05/20/18 07:54; Admin Dose 1 TAB; Start 05/04/18 at 09:30 Acetaminophen (Tylenol Liquid) 650 mg Q4H PRN GTB MILD PAIN(1-3)OR ELEVATED TEMP Last administered on 05/17/18 21:50; Admin Dose 650 MG; Start 05/04/18 at 09:30 Acetaminophen (Tylenol Supp) 650 mg Q6H PRN [place] temp over 101; Start 05/04/18 at 09:30 Polyethylene Glycol (Miralax) 17 gm DAILY PRN GTB constipation; Start 05/04/18 at 16:00 Hydralazine HCl (Apresoline) 5 mg Q6H PRN IV ELEVATED BLOOD PRESSURE; Start 05/04/18 at 22:30 Aspirin (Aspirin) 81 mg DAILY PO Last administered on 05/19/18 07:58; Admin Dose 81 MG; Start 05/05/18 at 15:00; Status Hold Atorvastatin Calcium (Lipitor) 10 mg HS PO Last administered on 05/19/18 20:13; Admin Dose 10 MG; Start 05/06/18 at 21:00 Sodium Hypochlorite (Dakin'S (Dilute )) 1 applic BID IRR Last administered on 05/20/18 07:55; Admin Dose 1 APPLIC; Start 05/09/18 at 15:00 Amikacin Sulfate (Amikacin Iv Per Pharmacy) AMIKACIN PER PHARMACY NOTE XX ; Start 05/15/18 at 11:30 Amikacin Sulfate 850 mg/Sodium Chloride 253.4 ml @ 250 mls/hr Q72H IVPB Last administered on 05/19/18at 18:46; Admin Dose 250 MLS/HR; Start 05/10/18 at 15:00 Morphine Sulfate (morphine) 5 mg Q4H PRN GTB SEVERE PAIN LEVEL 7-10 Last administered on 05/16/18at 10:35; Admin Dose 5 MG; Start 05/11/18 at 14:00 RENÉ GARCIA NP May 20, 2018 14:43
[2018-05-20] MEDS ORDERED: VITAMIN A & D 5 GM OINT PACKET TOP ONE (14:54)
[2018-05-20] MEDS: LANSOPRAZOLE 30 MG CAP PO SCH (21:18)
[2018-05-20] MEDS: ATORVASTATIN 10 MG TAB PO SCH (21:18)
[2018-05-20] MEDS: morphine LIQ (10 MG/5 ML) CUP GTB PRN (23:22)
[2018-05-21] VITALS (41 sets, daily range): BP systolic 98–121; BP diastolic 62–86; PULSE 93–128; RESP 16–36
[2018-05-21] MEDS ORDERED: PHENYLephrine (100 MCG/ML) 10ML SYG ONE (07:00)
[2018-05-21] MEDS ORDERED: DESFLURANE 15 MIN ONE (07:00)
[2018-05-21] MEDS ORDERED: METOPROLOL 5 MG INJ ONE (07:00)
[2018-05-21] MEDS ORDERED: ESMOLOL 100 MG INJ ONE (07:00)
[2018-05-21] MEDS ORDERED: ONDANSETRON 4 MG INJ ONE (07:00)
[2018-05-21] MEDS: ASCORBIC ACID 500 MG TAB GTB SCH (08:17)
[2018-05-21] MEDS: MULTIVIT/CA CARB/B CMPLX/FA TAB GTB SCH (08:17)
[2018-05-21] MEDS: SODIUM HYPOCHLORITE (1/40) 1 APPLIC BTL IRR SCH ×2 (08:17→22:21)
[2018-05-21] MEDS: BALSAM PERU/CASTOR OIL 60 GM TUBE TOP SCH ×2 (08:17→22:21)
[2018-05-21] MEDS: ZINC SULFATE 220 MG CAP GTB SCH (08:17)
[2018-05-21] MEDS: COLLAGENASE 5 GM (UD JAR) TOP SCH (08:17)
--- NOTE | 2018-05-21 09:06 | CONS ---
Assessment/Plan Assessment/Plan Assessment/Plan (Daily) On May 18 I had a long one hour discussion with family members. They included patients son who just recently came into town the night before from [place]. Patient's brother and other family members. It was apparent that there was discord and treatment care and ongoing level of care between patients brother and son. Patient's was obviously distraught and said she wanted to defer any ongoing level of care to other family members. She was very tearful it was my impressions that she decided to do so based upon the degree of disagreement amongst family members. Patient's brother was particularly aggressive with me and questioned level of care, nursing care, agreement amongst physicians on an ongoing level of care and other issues. All of these issues had nothing to do with patient's current severe medical problems and irreversible neurological condition. I explained to him that patient has had multiple strokes and the chances of him having any considerable recovery to his baseline cognitive mental condition is extremely remote. Patient is paid in trade. This was the first time I met patients brother. When I entered the room patient's father was tapping patient's face and alluding to the fact that this brother patient was responding to him appropriately. The entire discussion was not conducive to achieving any types of goals of care for patient. It is my understanding that family members are still arguing amongst themselves and patient still remains in the hospital in a moribund condition. However he does remain do not resuscitate, that order was given to us prior to other family members arriving in recent past by patients son. Patient son did not change patients code status. I do not believe they will be any progress made in so far as allowing patient to diet dignified end of life during this hospitalization. I have give them options and [facility] care here in the hospital or patient being transferred back to a long-term unit. I did tell them that if he was transferred back to long-term unit the chances of him receiving hospice care were remote. Also that patient would suffer from bouts of sepsis in other complications related to his comorbid major medical problems and will ultimately a morbid . Patient's brother did not agree with that my impressions were that he would insist upon this level of care. Consultation Date/Type/Reason Admit Date/Time Mar 31, 2018 at 17:58 Date/Time of Note DATE: 05/21/18 TIME: 09:00 Past Medical History Medical History: congestive heart failure, diabetes, GERD, hepatitis, pancreatitis, peptic ulcer disease, renal disease, urinary tract infection Home Meds Reported Medications Cran/Vitc/Mannose/Inulin/Brom (Uti-Stat Liquid) 3,875 Mg/30 Ml Liquid, 3875 MG GTB DAILY 03/31/18 Ascorbic Acid* (Vitamin C*) 500 Mg Capsule.sa, 500 MG GTB DAILY, CAP 03/31/18 Zinc Sulfate* (Zinc Sulfate*) 220 Mg Tablet, 220 MG GTB DAILY, TAB 03/31/18 Acetaminophen* (Acetaminophen*) 650 Mg Tablet, 650 MG GTB Q4 PRN for MILD PAIN LEVEL 1-3, #30 TAB AND FEVER 03/31/18 Acetaminophen* (Acetaminophen*) 500 MG Extra Strength Tablet, 1000 MG GTB Q4 PRN for MODERATE PAIN LEVEL 4-6, TAB 03/31/18 Acetaminophen* (Acetaminophen*) 325 Mg Tablet, 650 MG GTB TRACH CHANGE PRN for PAIN, #30 TAB GIVE 30 MIN PRIOR TO CHANGE 03/31/18 Spironolactone* (Aldactone*) 25 Mg Tablet, 25 MG GTB DAILY, #30 TAB 03/31/18 Multivit/Ca Carb/B Cmplx/Fa* (Sofy-Sandvoal*) 1 Tab Tab, 1 TAB GTB DAILY, TAB 03/31/18 Hydrocodone/Acetaminophen ([place] 5-325 Tablet) 1 Each Tablet, 1 EACH GTB BID, TAB 03/31/18 Midodrine* (Midodrine*) 5 Mg Tablet, 5 MG GTB BID, TAB HOLD FOR SBP ABOVE 110 03/31/18 Na Phos,M-B/Na Phos,Di-Ba (ENEMA SRGCR-ND-MOF) 133 Ml Enema, 133 ML RC EVERY TWO DAYS PRN for CONSTIPATION, ENEMA 03/31/18 Bisacodyl (Dulcolax) 10 Mg Supp.rect, 10 MG RC DAILY PRN for CONSTIPATION, SUPP.RECT 03/31/18 Carvedilol* (Carvedilol*) 25 Mg Tablet, 25 MG GTB BID, #60 TAB HOLD FOR SBP BELOW 100 OR HR BELOW 50 03/31/18 Albuterol Sulfate* (Albuterol Sulfate* Neb) 0.083%-3 Ml Neb, 2.5 MG NEB Q6 PRN for WHEEZING AND SOB, #30 VIAL 03/31/18 Albuterol Sulfate* (Albuterol Sulfate* Neb) 0.083%-3 Ml Neb, 2.5 MG NEB Q3H PRN for WHEEZING AND SOB, #30 VIAL 03/31/18 Lactobacillus Acidophilus/Pect (Acidophilus-Pectin Capsule) 1 Each Capsule, 1 EACH GTB DAILY, CAP 03/31/18 Medications Current Medications Collagenase (Santyl) 1 applic DAILY TOP Last administered on 05/21/18at 08:17; Admin Dose 1 APPLIC; Start 04/03/18 at 12:00 Lansoprazole (Prevacid) 30 mg HS PO Last administered on 05/20/18at 21:18; Admin Dose 30 MG; Start 04/20/18 at 21:00 Albuterol (Proventil 0.083% (Neb)) 2.5 mg Q3H RESP THERAPY PRN NEB WHEEZING AND SOB; Start 04/30/18 at 19:00 Ascorbic Acid (Vitamin C) 500 mg DAILY GTB Last administered on 05/21/18at 08:17; Admin Dose 500 MG; Start 05/04/18 at 09:30 Zinc Sulfate (Zinc Sulfate) 220 mg DAILY GTB Last administered on 05/21/18 08:17; Admin Dose 220 MG; Start 05/04/18 at 09:30 Multivit/Ca Carb/ B Cmplx/FA/Prenat (Sofy-Sandoval) 1 tab DAILY GTB Last administered on 05/21/18 08:17; Admin Dose 1 TAB; Start 05/04/18 at 09:30 Acetaminophen (Tylenol Liquid) 650 mg Q4H PRN GTB MILD PAIN(1-3)OR ELEVATED TEMP Last administered on 05/17/18at 21:50; Admin Dose 650 MG; Start 05/04/18 at 09:30 Acetaminophen (Tylenol Supp) [address] temp over 101; Start 05/04/18 at 09:30 Polyethylene Glycol (Miralax) 17 gm DAILY PRN GTB constipation; Start 05/04/18 at 16:00 Hydralazine HCl (Apresoline) 5 mg Q6H PRN IV ELEVATED BLOOD PRESSURE; Start 05/04/18 at 22:30 Aspirin (Aspirin) 81 mg DAILY PO Last administered on 05/19/18at 07:58; Admin Dose 81 MG; Start 05/05/18 at 15:00; Status Hold Atorvastatin Calcium (Lipitor) 10 mg HS PO Last administered on 05/20/18 21:18; Admin Dose 10 MG; Start 05/06/18 at 21:00 Sodium Hypochlorite (Dakin'S (Dilute )) 1 applic BID IRR Last administered on 05/21/18 08:17; Admin Dose 1 APPLIC; Start 05/09/18 at 15:00 Morphine Sulfate (morphine) 5 mg Q4H PRN GTB SEVERE PAIN LEVEL 7-10 Last administered on 05/20/18 23:22; Admin Dose 5 MG; Start 05/11/18 at 14:00 Allergies: Coded Allergies: No Known Allergy (Unverified , 04/30/18) Past Surgical History Past Surgical Hx: other (Known) Social History Alcohol Use: occasionally Smoking Status: Unknown if ever smoked Exam/Review of Systems Exam Vitals Vital Signs Date Temp Pulse Resp B/P (MAP) Pulse Ox O2 O2 Flow FiO2 Time Delivery Rate 05/21/18 126 08:01 05/21/18 30 08:00 05/21/18 98.3 16 108/79 95 07:20 (89) 05/18/18 Mechanical 16:03 Ventilator Intake and Output 05/20/18 05/20/18 05/21/18 1515:00 23:00 07:00 IntakeIntake Total 250 ml 275 ml OutputOutput Total 600 ml 950 ml BalanceBalance -350 ml -675 ml Results Result Diagram: 05/20/18 0816 05/20/18 0609 Medications Medication Current Medications Collagenase (Santyl) 1 applic DAILY TOP Last administered on 05/21/18at 08:17; Admin Dose 1 APPLIC; Start 04/03/18 at 12:00 Lansoprazole (Prevacid) 30 mg HS PO Last administered on 05/20/18 21:18; Admin Dose 30 MG; Start 04/20/18 at 21:00 Albuterol (Proventil 0.083% (Neb)) 2.5 mg Q3H RESP THERAPY PRN NEB WHEEZING AND SOB; Start 04/30/18 at 19:00 Ascorbic Acid (Vitamin C) 500 mg DAILY GTB Last administered on 05/21/18 08:17; Admin Dose 500 MG; Start 05/04/18 at 09:30 Zinc Sulfate (Zinc Sulfate) 220 mg DAILY GTB Last administered on 05/21/18 08:17; Admin Dose 220 MG; Start 05/04/18 at 09:30 Multivit/Ca Carb/ B Cmplx/FA/Prenat (Sofy-Sandoval) 1 tab DAILY GTB Last administered on 05/21/18 08:17; Admin Dose 1 TAB; Start 05/04/18 at 09:30 Acetaminophen (Tylenol Liquid) 650 mg Q4H PRN GTB MILD PAIN(1-3)OR ELEVATED TEMP Last administered on 05/17/18 21:50; Admin Dose 650 MG; Start 05/04/18 at 09:30 Acetaminophen (Tylenol Supp) [address] temp over 101; Start 05/04/18 at 09:30 Polyethylene Glycol (Miralax) 17 gm DAILY PRN GTB constipation; Start 05/04/18 at 16:00 Hydralazine HCl (Apresoline) 5 mg Q6H PRN IV ELEVATED BLOOD PRESSURE; Start 05/04/18 at 22:30 Aspirin (Aspirin) 81 mg DAILY PO Last administered on 05/19/18 07:58; Admin Dose 81 MG; Start 05/05/18 at 15:00; Status Hold Atorvastatin Calcium (Lipitor) 10 mg HS PO Last administered on 05/20/18 21:18; Admin Dose 10 MG; Start 05/06/18 at 21:00 Sodium Hypochlorite (Dakin'S (Dilute )) 1 applic BID IRR Last administered on 05/21/18 08:17; Admin Dose 1 APPLIC; Start 05/09/18 at 15:00 Morphine Sulfate (morphine) 5 mg Q4H PRN GTB SEVERE PAIN LEVEL 7-10 Last administered on 05/20/18 23:22; Admin Dose 5 MG; Start 05/11/18 at 14:00 DASH ESCALANTE May 21, 2018 09:06
--- NOTE | 2018-05-21 09:12 | CONS ---
Assessment/Plan Assessment/Plan Hospital Course (Demo Recall) 62 male with excessively bleeding gingival tissue and severe anemia 1. Severe acute on chronic anemia likely due to blood loss from gingival bleeding -improved 3. Chronic liver disease, alcohol related 4. Mild coagulopathy 5. Elevated lipase with mildly elevated CA 19-9 -on CT scan pancreas is normal -lipid panel wnl -CBD 6mm, LFT wnl -Radiology will not do MRCP because of vent 6. Chronic kidney disease -BUN/rand maker wnl 7. Encephalopathy secondary to anoxic brain injury -acute on chronic? -Ct shows acute ischemic infarct, pt is on ASA 8. H/o duodenal ulcer 9. Complex UTI with lisa albicans, s/p diflucan -RESOLVED 10. 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 Persistent fevers -99.2 this am 12. Abnormal LFTs -liver disease -trending down 13. Acute non hemorrhagic infarcts noted on Brain CT Plan: ERCP today. NPO. consent signed. ASA on hold. Monitor LFT and WBC Monitor closely for GI bleeding and HH, Pt examined and plan of care discussed with Dr. Peña Consultation Date/Type/Reason Admit Date/Time Mar 31, 2018 at 17:58 Initial Consult Date 04/02/18 Requesting Provider: TAMARA GRAJEDA MD Date/Time of Note DATE: 05/21/18 TIME: 09:12 Exam/Review of Systems Exam Vitals Vital Signs Date Temp Pulse Resp B/P (MAP) Pulse Ox O2 O2 Flow FiO2 Time Delivery Rate 05/21/18 126 08:01 05/21/18 30 08:00 05/21/18 98.3 16 108/79 95 07:20 (89) 05/18/18 Mechanical 16:03 Ventilator Intake and Output 05/20/18 05/20/18 05/21/18 1515:00 23:00 07:00 IntakeIntake Total 250 ml 275 ml OutputOutput Total 600 ml 950 ml BalanceBalance -350 ml -675 ml Results Result Diagram: 05/20/18 0816 05/20/18 0609 Medications Medication Current Medications Collagenase (Santyl) 1 applic DAILY TOP Last administered on 05/21/18at 08:17; Admin Dose 1 APPLIC; Start 04/03/18 at 12:00 Lansoprazole (Prevacid) 30 mg HS PO Last administered on 05/20/18 21:18; Admin Dose 30 MG; Start 04/20/18 at 21:00 Albuterol (Proventil 0.083% (Neb)) 2.5 mg Q3H RESP THERAPY PRN NEB WHEEZING AND SOB; Start 04/30/18 at 19:00 Ascorbic Acid (Vitamin C) 500 mg DAILY GTB Last administered on 05/21/18 08:17; Admin Dose 500 MG; Start 05/04/18 at 09:30 Zinc Sulfate (Zinc Sulfate) 220 mg DAILY GTB Last administered on 05/21/18 08:17; Admin Dose 220 MG; Start 05/04/18 at 09:30 Multivit/Ca Carb/ B Cmplx/FA/Prenat (Sofy-Sandoval) 1 tab DAILY GTB Last administered on 05/21/18 08:17; Admin Dose 1 TAB; Start 05/04/18 at 09:30 Acetaminophen (Tylenol Liquid) 650 mg Q4H PRN GTB MILD PAIN(1-3)OR ELEVATED TEMP Last administered on 05/17/18 21:50; Admin Dose 650 MG; Start 05/04/18 at 09:30 Acetaminophen (Tylenol Supp) 650 mg Q6H PRN [place] temp over 101; Start 05/04/18 at 09:30 Polyethylene Glycol (Miralax) 17 gm DAILY PRN GTB constipation; Start 05/04/18 at 16:00 Hydralazine HCl (Apresoline) 5 mg Q6H PRN IV ELEVATED BLOOD PRESSURE; Start 05/04/18 at 22:30 Aspirin (Aspirin) 81 mg DAILY PO Last administered on 05/19/18 07:58; Admin Dose 81 MG; Start 05/05/18 at 15:00; Status Hold Atorvastatin Calcium (Lipitor) 10 mg HS PO Last administered on 05/20/18 21:18; Admin Dose 10 MG; Start 05/06/18 at 21:00 Sodium Hypochlorite (Dakin'S (Dilute )) 1 applic BID IRR Last administered on 05/21/18 08:17; Admin Dose 1 APPLIC; Start 05/09/18 at 15:00 Morphine Sulfate (morphine) 5 mg Q4H PRN GTB SEVERE PAIN LEVEL 7-10 Last administered on 05/20/18 23:22; Admin Dose 5 MG; Start 05/11/18 at 14:00 QI CHRISTIANSON May 21, 2018 09:12
--- NOTE | 2018-05-21 12:05 | PN ---
Date/Time of Note Date/Time of Note DATE: 05/21/18 TIME: 12:01 Assessment/Plan Lines/Catheters IV Catheter Type (from Nrs): Saline Lock Schwartz in Place (from Nrs): Yes Assessment/Plan Chief Complaint/Hosp Course 1. Decubitus pressure ulcers with necrosis s/p exc milena 04/30 -cont Local care -Offload -Nutritional optimization -Vitamin C -Short-term zinc -further debridement prn > spoke with regarding further debridement, at this time she would like to hold off on further debridements and continue only with local care. 2. 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 Poor quality of life -s/p family meeting >currentl level of care continues 4. Chronic renal disease -Judicious fluid management -Minimize nephrotoxic agents if possible 5. Dysphagia on tube feeds 6. Anemia -Monitor 7. Ventilator dependent respiratory failure, Left pna -abx -Ventilator management and pulmonary toilet 8. Abnormal lipase and ca19-9 s/p ercp 04/30 with stricture and sphincterotomy;ercp today -trend 9. Dilated cardiomyopathy with congestive heart failure and coronary artery disease with history of hypertension -Cardiac optimization -Judicious fluid management -Electrolyte optimization Thank you. Patient seen and examined in collaboration with Dr. Chet Melvin. Subjective 24 Hr Interval Summary ERCP today. Family meeting held-pt continues on current level of care. No fevers, labored breathing, congested cough, vomiting, diarrhea, sz, rash. Exam/Review of Systems Vital Signs Vitals Vital Signs Date Temp Pulse Resp B/P (MAP) Pulse Ox O2 O2 Flow FiO2 Time Delivery Rate 05/21/18 99.7 120 16 98/78 (85) 95 11:37 05/21/18 30 08:00 05/18/18 Mechanical 16:03 Ventilator Intake and Output 05/20/18 05/20/18 05/21/18 1515:00 23:00 07:00 IntakeIntake Total 250 ml 275 ml OutputOutput Total 600 ml 950 ml BalanceBalance -350 ml -675 ml Exam Free Text/Dictation Constitutional: No alert, No oriented, obtunded, withdraws from noxious stimuli Psych: confusion; No nl mood/affect Head: normocephalic Eyes: nl conjunctiva, PERRL; No icteric ENMT: nl lips & teeth, mucosa pink and dry, Neck: supple, jvd (Minimal), other (Trach in place) Respiratory: No congested cough, No labored breathing, No wheezing Cardiovascular: regular rate and rhythm; No edema Gastrointestinal: soft, non-tender, other (PEG); No distended, No rebound or guarding Genitourinary - Male: nl penis Musculoskeletal: No nl gait and stance, No joint tenderness Extremities: edema; No calf tenderness, No tenderness Neurological: No nl mental status, No nl speech, No nl strength Skin: rash or lesions (bilat buttock pressure decubitus wounds min debris/slo ugh, granulating, scant drainage, no odor; Lower extremity wounds), ecchymosis; No nl turgor, No diaphoresis Lymph: No nl lymph nodes Results Result Diagram: 05/21/18 0920 05/21/18 0921 AURE ENRIQUEZ NP May 21, 2018 12:05
--- NOTE | 2018-05-21 13:34 | PN ---
Date/Time of Note Date/Time of Note DATE: 05/21/18 TIME: 13:34 Assessment/Plan VTE Prophylaxis Risk score (from Ns)>0 risk: 5 SCD applied (from Ns): Yes Pharmacological prophylaxis: NA/contraindicated Pharm contraindication: low risk/ambulating Lines/Catheters IV C[facility]ter Type (from [facility]): Saline Lock Urinary Cath still in place: Yes Reason Cath still needed: urinary retention Assessment/Plan Hospital Course 62 y/o with # Oral gingival bleeding likely due to dentures, seen by ENT s/p endoscopy # Sepsis with Fevers with hx Pneumonia +UTI and ? Pancreatitis +multiple wounds, ucx+ lisa, wound cx+ MRSA/ pseudomonas, +resp culture +pseudomonas # Blood loss anemia due to oral gingival bleeding # VDRF # CKD with worsening renal failure>resolved # Metabolic acidosis #DILATED CARDIOMYOPATHY # HX ALCOHOL ABUSE # Multiple wounds > decub # Pancreatitis with elevated Lipase # Enterocoltiis on CT # AMS due to Metabolic encephalopathy with . Possible subacute infarct in the left cerebellar hemisphere and cerebellar peduncle> much improved> now again AMS? encephalopathy> now with new stroke on 05/05/18 #Ongoing fevers likely secondary to UTI/hcap now improved> again with fevers> +psedomonas in sputum has again gram-negative in the urine plan -on amikacin - WBC scan neg - ERCP today - fu neuro recs - Family meeting discussed goals of care, again with Dr. Anthony / family coming back, but they decided continuing everything from all - Heme consult fo anemia however likely secondary to anemia of chronic disease - GI prophylaxsis - monitor oral bleeding - labs am - hydralzine prn Plan is to likely discharge back to the nursing facility after ERCP - Result Diagram: 05/21/18 0920 05/21/18 0921 Results 24hrs Laboratory Tests Test 05/21/18 09:20 05/21/18 09:21 05/21/18 12:14 White Blood Count 10.3 Red Blood Count 2.76 L Hemoglobin 7.8 L Hematocrit 24.0 L Mean Corpuscular Volume 87.0 Mean Corpuscular Hemoglobin 28.3 L Mean Corpuscular 32.5 Hemoglobin Concent Red Cell Distribution Width 16.1 H Platelet Count 206 Mean Platelet Volume 10.6 H Immature Granulocytes % 1.400 H Neutrophils % 79.3 H Lymphocytes % 6.7 L Monocytes % 9.2 Eosinophils % 3.0 Basophils % 0.4 Nucleated Red Blood Cells % 0.0 Immature Granulocytes # 0.140 H Neutrophils # 8.2 H Lymphocytes # 0.7 L Monocytes # 1.0 H Eosinophils # 0.3 Basophils # 0.0 Nucleated Red Blood Cells # 0.0 Sodium Level 142 Potassium Level 3.8 Chloride Level 114 H Carbon Dioxide Level 17 L Anion Gap 11 Blood Urea Nitrogen 40 H Creatinine 1.10 Est Glomerular Filtrat > 60 Rate mL/min Glucose Level 83 Calcium Level 9.0 Total Bilirubin 0.2 Direct Bilirubin 0.00 Indirect Bilirubin 0.2 Aspartate Amino Transf (AST/SGOT) 85 H Alanine 25 Aminotransferase (ALT/SGPT) Alkaline Phosphatase 255 H Total Protein 7.0 Albumin 2.7 L Globulin 4.30 H Albumin/Globulin Ratio 0.62 Lab Scanned Report REFERENCE LAB Subjective 24 Hr Interval Summary Free Text/Dictation ERCP today Exam/Review of Systems Exam Vitals Vital Signs Date Temp Pulse Resp B/P (MAP) Pulse Ox O2 O2 Flow FiO2 Time Delivery Rate 05/21/18 112 23 96 30 13:16 05/21/18 99.7 98/78 (85) 11:37 05/18/18 Mechanical 16:03 Ventilator Intake and Output 05/20/18 05/20/18 05/21/18 1414:59 22:59 06:59 IntakeIntake Total 250 ml 275 ml OutputOutput Total 600 ml 950 ml BalanceBalance -350 ml -675 ml Results Results 24hrs Laboratory Tests Test 05/21/18 09:20 05/21/18 09:21 05/21/18 12:14 White Blood Count 10.3 Red Blood Count 2.76 L Hemoglobin 7.8 L Hematocrit 24.0 L Mean Corpuscular Volume 87.0 Mean Corpuscular Hemoglobin 28.3 L Mean Corpuscular 32.5 Hemoglobin Concent Red Cell Distribution Width 16.1 H Platelet Count 206 Mean Platelet Volume 10.6 H Immature Granulocytes % 1.400 H Neutrophils % 79.3 H Lymphocytes % 6.7 L Monocytes % 9.2 Eosinophils % 3.0 Basophils % 0.4 Nucleated Red Blood Cells % 0.0 Immature Granulocytes # 0.140 H Neutrophils # 8.2 H Lymphocytes # 0.7 L Monocytes # 1.0 H Eosinophils # 0.3 Basophils # 0.0 Nucleated Red Blood Cells # 0.0 Sodium Level 142 Potassium Level 3.8 Chloride Level 114 H Carbon Dioxide Level 17 L Anion Gap 11 Blood Urea Nitrogen 40 H Creatinine 1.10 Est Glomerular Filtrat > 60 Rate mL/min Glucose Level 83 Calcium Level 9.0 Total Bilirubin 0.2 Direct Bilirubin 0.00 Indirect Bilirubin 0.2 Aspartate Amino Transf (AST/SGOT) 85 H Alanine 25 Aminotransferase (ALT/SGPT) Alkaline Phosphatase 255 H Total Protein 7.0 Albumin 2.7 L Globulin 4.30 H Albumin/Globulin Ratio 0.62 Lab Scanned Report REFERENCE LAB Medications Medication Current Medications Collagenase (Santyl) 1 applic DAILY TOP Last administered on 05/21/18 08:17; Admin Dose 1 APPLIC; Start 04/03/18 at 12:00 Lansoprazole (Prevacid) 30 mg HS PO Last administered on 05/20/18 21:18; Admin Dose 30 MG; Start 04/20/18 at 21:00 Albuterol (Proventil 0.083% (Neb)) 2.5 mg Q3H RESP THERAPY PRN NEB WHEEZING AND SOB; Start 04/30/18 at 19:00 Ascorbic Acid (Vitamin C) 500 mg DAILY GTB Last administered on 05/21/18 08:17; Admin Dose 500 MG; Start 05/04/18 at 09:30 Zinc Sulfate (Zinc Sulfate) 220 mg DAILY GTB Last administered on 05/21/18 08:17; Admin Dose 220 MG; Start 05/04/18 at 09:30 Multivit/Ca Carb/ B Cmplx/FA/Prenat (Sofy-Sandoval) 1 tab DAILY GTB Last administered on 05/21/18 08:17; Admin Dose 1 TAB; Start 05/04/18 at 09:30 Acetaminophen (Tylenol Liquid) 650 mg Q4H PRN GTB MILD PAIN(1-3)OR ELEVATED TEMP Last administered on 05/17/18 21:50; Admin Dose 650 MG; Start 05/04/18 at 09:30 Acetaminophen (Tylenol Supp) 650 mg Q6H PRN [place] temp over 101; Start 05/04/18 at 09:30 Polyethylene Glycol (Miralax) 17 gm DAILY PRN GTB constipation; Start 05/04/18 at 16:00 Hydralazine HCl (Apresoline) 5 mg Q6H PRN IV ELEVATED BLOOD PRESSURE; Start 05/04/18 at 22:30 Atorvastatin Calcium (Lipitor) 10 mg HS PO Last administered on 05/20/18at 21:18; Admin Dose 10 MG; Start 05/06/18 at 21:00 Sodium Hypochlorite (Dakin'S (Dilute )) 1 applic BID IRR Last administered on 05/21/18at 08:17; Admin Dose 1 APPLIC; Start 05/09/18 at 15:00 Morphine Sulfate (morphine) 5 mg Q4H PRN GTB SEVERE PAIN LEVEL 7-10 Last administered on 05/20/18at 23:22; Admin Dose 5 MG; Start 05/11/18 at 14:00 Sodium Chloride 500 ml @ 500 mls/hr Q1H ONCE IV ; Start 05/21/18 at 14:00; Stop 05/21/18 at 14:59; Status UNTAMARA AC MD May 21, 2018 13:34
[2018-05-21] MEDS ORDERED: SOD CHLORIDE 0.9% 500 ML IV ONE (14:00)
[2018-05-21] MEDS ORDERED: METOPROLOL 5 MG INJ IV PRN (14:00)
--- NOTE | 2018-05-21 15:37 | CONS ---
Assessment/Plan Assessment/Plan Hospital Course (Demo Recall) No acute changes overnight looks comfortable, T-max 99.7 Microbiology: Urine culture on May 16 negative Indwelling: Trach PEG Schwartz. Physical examination: Chronically ill-appearing elderly man who is noncommunicative in no distress. Head atraumatic normocephalic sclera nonicteric neck is supple tracheostomy present chest rise symmetrical breath sounds diminished bases heart: S1-S2. Abdomen soft bowel sounds present. Extremities without cyanosis. Skin: Patient has multiple pressure sores he has a dry blood on the right lower lip Assessment: 1. S/p sepsis secondary to urinary tract infection and HCAP 2. 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 VDRF 3. Dysphagia 4. Chronic encephalopathy 5. History of cardiomyopathy 6. Sacral decub, s/p debridement 04/30/18 7. MRSA nares colonization 8. Elevated amylase and lipase of unclear etiology Plan: Clinically unchanged, chest x-ray noted, observe off antibiotics, repeat cultures if patient spikes fever of 101 Consultation Date/Type/Reason Admit Date/Time Mar 31, 2018 at 17:58 Initial Consult Date 04/02/18 Type of Consult id Requesting Provider: TAMARA GRAJEDA MD Date/Time of Note DATE: 05/21/18 TIME: 15:36 Exam/Review of Systems Exam Vitals Vital Signs Date Temp Pulse Resp B/P (MAP) Pulse Ox O2 O2 Flow FiO2 Time Delivery Rate 05/21/18 112 23 96 30 13:16 05/21/18 99.7 98/78 (85) 11:37 05/18/18 Mechanical 16:03 Ventilator Intake and Output 05/20/18 05/20/18 05/21/18 1515:00 23:00 07:00 IntakeIntake Total 250 ml 275 ml OutputOutput Total 600 ml 950 ml BalanceBalance -350 ml -675 ml Results Result Diagram: 05/21/1820 05/21/18 0921 Results 24hrs Laboratory Tests Test 05/21/18 09:20 05/21/18 09:21 05/21/18 12:14 White Blood Count 10.3 Red Blood Count 2.76 L Hemoglobin 7.8 L Hematocrit 24.0 L Mean Corpuscular Volume 87.0 Mean Corpuscular Hemoglobin 28.3 L Mean Corpuscular 32.5 Hemoglobin Concent Red Cell Distribution Width 16.1 H Platelet Count 206 Mean Platelet Volume 10.6 H Immature Granulocytes % 1.400 H Neutrophils % 79.3 H Lymphocytes % 6.7 L Monocytes % 9.2 Eosinophils % 3.0 Basophils % 0.4 Nucleated Red Blood Cells % 0.0 Immature Granulocytes # 0.140 H Neutrophils # 8.2 H Lymphocytes # 0.7 L Monocytes # 1.0 H Eosinophils # 0.3 Basophils # 0.0 Nucleated Red Blood Cells # 0.0 Sodium Level 142 Potassium Level 3.8 Chloride Level 114 H Carbon Dioxide Level 17 L Anion Gap 11 Blood Urea Nitrogen 40 H Creatinine 1.10 Est Glomerular Filtrat > 60 Rate mL/min Glucose Level 83 Calcium Level 9.0 Total Bilirubin 0.2 Direct Bilirubin 0.00 Indirect Bilirubin 0.2 Aspartate Amino Transf (AST/SGOT) 85 H Alanine 25 Aminotransferase (ALT/SGPT) Alkaline Phosphatase 255 H Total Protein 7.0 Albumin 2.7 L Globulin 4.30 H Albumin/Globulin Ratio 0.62 Lab Scanned Report REFERENCE LAB Medications Medication Current Medications Collagenase (Santyl) 1 applic DAILY TOP Last administered on 05/21/18 08:17; Admin Dose 1 APPLIC; Start 04/03/18 at 12:00 Lansoprazole (Prevacid) 30 mg HS PO Last administered on 05/20/18 21:18; Admin Dose 30 MG; Start 04/20/18 at 21:00 Albuterol (Proventil 0.083% (Neb)) 2.5 mg Q3H RESP THERAPY PRN NEB WHEEZING AND SOB; Start 04/30/18 at 19:00 Ascorbic Acid (Vitamin C) 500 mg DAILY GTB Last administered on 05/21/18 08:17; Admin Dose 500 MG; Start 05/04/18 at 09:30 Zinc Sulfate (Zinc Sulfate) 220 mg DAILY GTB Last administered on 05/21/18 08:17; Admin Dose 220 MG; Start 05/04/18 at 09:30 Multivit/Ca Carb/ B Cmplx/FA/Prenat (Sofy-Sandoval) 1 tab DAILY GTB Last administered on 05/21/18 08:17; Admin Dose 1 TAB; Start 05/04/18 at 09:30 Acetaminophen (Tylenol Liquid) 650 mg Q4H PRN GTB MILD PAIN(1-3)OR ELEVATED TEMP Last administered on 05/17/18at 21:50; Admin Dose 650 MG; Start 05/04/18 at 09:30 Acetaminophen (Tylenol Supp) 650 mg Q6H PRN [place] temp over 101; Start 05/04/18 at 09:30 Polyethylene Glycol (Miralax) 17 gm DAILY PRN GTB constipation; Start 05/04/18 at 16:00 Hydralazine HCl (Apresoline) 5 mg Q6H PRN IV ELEVATED BLOOD PRESSURE; Start 05/04/18 at 22:30 Atorvastatin Calcium (Lipitor) 10 mg HS PO Last administered on 05/20/18at 21:18; Admin Dose 10 MG; Start 05/06/18 at 21:00 Sodium Hypochlorite (Dakin'S (Dilute )) 1 applic BID IRR Last administered on 05/21/18at 08:17; Admin Dose 1 APPLIC; Start 05/09/18 at 15:00 Morphine Sulfate (morphine) 5 mg Q4H PRN GTB SEVERE PAIN LEVEL 7-10 Last administered on 05/20/18at 23:22; Admin Dose 5 MG; Start 05/11/18 at 14:00 Metoprolol Tartrate (Lopressor) 5 mg Q8H PRN IV HR >110; Start 05/21/18 at 14:00 RENÉ GARCIA NP May 21, 2018 15:37
[2018-05-21] MEDS ORDERED: FENTAnyl 50 MCG/ML VIAL ONE (16:26)
[2018-05-21] MEDS ORDERED: SUGAMMADEX SODIUM 200 MG/2 ML VIAL IV ONE (16:29)
[2018-05-21] MEDS ORDERED: IOHEXOL 300MG/ML 30 ML BTL ONE (16:29)
[2018-05-21] MEDS ORDERED: MIDAZOLAM 1 MG/ML 2 ML INJ ONE (16:31)
[2018-05-21] MEDS ORDERED: PROPOFOL 20 ML ONE (16:32)
[2018-05-21] MEDS ORDERED: CEFAZOLIN 1 GM INJ ONE (16:32)
--- NOTE | 2018-05-21 16:41 | PREAC ---
Date/Time of Note Date/Time of Note DATE: 05/21/18 TIME: 16:39 Anesthesia Eval and Record Evaluation Time Pre-Procedure Interview DATE: 05/21/18 TIME: 16:39 Age 62 Sex male NPO: 8 hrs Preoperative diagnosis biliary pancreatitis Planned procedure ERCP Past Medical History Past Medical History: Includes Cardio: HTN, Dyslipidemia, CHF Endo: Diabetes Pulm: Other (vent dependant) Neuro: CVA, Other (anoxic encephalopathy) Renal: CKD Hepatic: Alcohol abuse, Hepatitis, Cirrhosis Heme: Anemia, Coagulation disorder Surgery & Anesthesia Issues Aspiration risk Meds Anticoagulation: No Beta Delmer within 24 hr: Yes Reported Medications Cran/Vitc/Mannose/Inulin/Brom (Uti-Stat Liquid) 3,875 Mg/30 Ml Liquid, 3875 MG GTB DAILY 03/31/18 Ascorbic Acid* (Vitamin C*) 500 Mg Capsule.sa, 500 MG GTB DAILY, CAP 03/31/18 Zinc Sulfate* (Zinc Sulfate*) 220 Mg Tablet, 220 MG GTB DAILY, TAB 03/31/18 Acetaminophen* (Acetaminophen*) 650 Mg Tablet, 650 MG GTB Q4 PRN for MILD PAIN LEVEL 1-3, #30 TAB AND FEVER 03/31/18 Acetaminophen* (Acetaminophen*) 500 MG Extra Strength Tablet, 1000 MG GTB Q4 PRN for MODERATE PAIN LEVEL 4-6, TAB 03/31/18 Acetaminophen* (Acetaminophen*) 325 Mg Tablet, 650 MG GTB TRACH CHANGE PRN for PAIN, #30 TAB GIVE 30 MIN PRIOR TO CHANGE 03/31/18 Spironolactone* (Aldactone*) 25 Mg Tablet, 25 MG GTB DAILY, #30 TAB 03/31/18 Multivit/Ca Carb/B Cmplx/Fa* (Sofy-Sandoval*) 1 Tab Tab, 1 TAB GTB DAILY, TAB 03/31/18 Hydrocodone/Acetaminophen ([place] 5-325 Tablet) 1 Each Tablet, 1 EACH GTB BID, TAB 03/31/18 Midodrine* (Midodrine*) 5 Mg Tablet, 5 MG GTB BID, TAB HOLD FOR SBP ABOVE 110 03/31/18 Na Phos,M-B/Na Phos,Di-Ba (ENEMA [id number]) 133 Ml Enema, 133 ML RC EVERY TWO DAYS PRN for CONSTIPATION, ENEMA 03/31/18 Bisacodyl (Dulcolax) 10 Mg Supp.rect, 10 MG RC DAILY PRN for CONSTIPATION, SUPP.RECT 03/31/18 Carvedilol* (Carvedilol*) 25 Mg Tablet, 25 MG GTB BID, #60 TAB HOLD FOR SBP BELOW 100 OR HR BELOW 50 03/31/18 Albuterol Sulfate* (Albuterol Sulfate* Neb) 0.083%-3 Ml Neb, 2.5 MG NEB Q6 PRN for WHEEZING AND SOB, #30 VIAL 03/31/18 Albuterol Sulfate* (Albuterol Sulfate* Neb) 0.083%-3 Ml Neb, 2.5 MG NEB Q3H PRN for WHEEZING AND SOB, #30 VIAL 03/31/18 Lactobacillus Acidophilus/Pect (Acidophilus-Pectin Capsule) 1 Each Capsule, 1 EACH GTB DAILY, CAP 03/31/18 Current Medications Collagenase (Santyl) 1 applic DAILY TOP Last administered on 05/21/18 08:17; Admin Dose 1 APPLIC; Start 04/03/18 at 12:00 Lansoprazole (Prevacid) 30 mg HS PO Last administered on 05/20/18 21:18; Admin Dose 30 MG; Start 04/20/18 at 21:00 Albuterol (Proventil 0.083% (Neb)) 2.5 mg Q3H RESP THERAPY PRN NEB WHEEZING AND SOB; Start 04/30/18 at 19:00 Ascorbic Acid (Vitamin C) 500 mg DAILY GTB Last administered on 05/21/18 08:17; Admin Dose 500 MG; Start 05/04/18 at 09:30 Zinc Sulfate (Zinc Sulfate) 220 mg DAILY GTB Last administered on 05/21/18 08:17; Admin Dose 220 MG; Start 05/04/18 at 09:30 Multivit/Ca Carb/ B Cmplx/FA/Prenat (Sofy-Sandoval) 1 tab DAILY GTB Last administered on 05/21/18 08:17; Admin Dose 1 TAB; Start 05/04/18 at 09:30 Acetaminophen (Tylenol Liquid) 650 mg Q4H PRN GTB MILD PAIN(1-3)OR ELEVATED TEMP Last administered on 05/17/18at 21:50; Admin Dose 650 MG; Start 05/04/18 at 09:30 Acetaminophen (Tylenol Supp) 650 mg Q6H PRN [place] temp over 101; Start 05/04/18 at 09:30 Polyethylene Glycol (Miralax) 17 gm DAILY PRN GTB constipation; Start 05/04/18 at 16:00 Hydralazine HCl (Apresoline) 5 mg Q6H PRN IV ELEVATED BLOOD PRESSURE; Start 05/04/18 at 22:30 Atorvastatin Calcium (Lipitor) 10 mg HS PO Last administered on 05/20/18at 21:18; Admin Dose 10 MG; Start 05/06/18 at 21:00 Sodium Hypochlorite (Dakin'S (Dilute )) 1 applic BID IRR Last administered on 05/21/18at 08:17; Admin Dose 1 APPLIC; Start 05/09/18 at 15:00 Morphine Sulfate (morphine) 5 mg Q4H PRN GTB SEVERE PAIN LEVEL 7-10 Last administered on 05/20/18at 23:22; Admin Dose 5 MG; Start 05/11/18 at 14:00 Metoprolol Tartrate (Lopressor) 5 mg Q8H PRN IV HR >110; Start 05/21/18 at 14:00 Meds reviewed: Yes Allergies Coded Allergies: No Known Allergy (Unverified , 04/30/18) Allergies Reviewed: Yes Labs/Studies Labs Reviewed: Reviewed by anesthesiologist Result Diagram: 05/21/1891905/21/18920 Laboratory Tests 05/21/18 09:20 05/21/18 09:21 test: N/A Studies: ECG, CXR Pre-procedure Exam Last vitals Vital Signs Date Temp Pulse Resp B/P (MAP) Pulse Ox O2 O2 Flow FiO2 Time Delivery Rate 05/21/18 98.1 117 16 115/82 90 15:40 (93) 05/21/18 30 15:38 05/18/18 Mechanical 16:03 Ventilator Airway: Adequate mouth opening, Adequate thyromental dist Mallampati: Mallampati III Teeth: Abnormal Lung: Abnormal Heart: Normal ASA Physical Status ASA physical status: 4 Emergency: None Planned Anesthetic General/MAC: ETT Planned Pain Management Parenteral pain med Pre-operative Attestations Prior to commencing anesthesia and surgery, the patient was re-evaluated, there was verification of: *The patient's identity *The results of appropriate recent lab work and preoperative vital signs *The above evaluation not changing prior to induction *Anesthetic plan, risk benefits, alternative and complications discussed with family; questions answered; patient/family understands, accepts and wishes to proceed. KAT DIXON MD May 21, 2018 16:41
[2018-05-21] MEDS ORDERED: DIPHENHYDRAMINE 50 MG INJ IV PRN (17:00)
[2018-05-21] MEDS ORDERED: HALOPERIDOL 5 MG INJ IV PRN (17:00)
[2018-05-21] MEDS ORDERED: ONDANSETRON 4 MG INJ IV PRN (17:00)
[2018-05-21] MEDS ORDERED: hydrALAzine 20 MG INJ IV PRN (17:00)
[2018-05-21] MEDS ORDERED: LABETALOL HCL 20MG INJ IV PRN (17:00)
[2018-05-21] MEDS ORDERED: IPRATROPIUM (NEB) 0.5 MG/2.5 ML AMP HHN PRN (17:00)
[2018-05-21] MEDS ORDERED: HYDROmorphONE 1 MG/5 ML IV SYRINGE IV PRN ×2 (17:00)
[2018-05-21] MEDS ORDERED: LEVALBUTEROL (NEB) 1.25 MG/0.5 ML AMP HHN PRN (17:00)
[2018-05-21] MEDS ORDERED: LORAZEPAM 2 MG INJ IV PRN (17:00)
[2018-05-21] MEDS ORDERED: FENTAnyl 50 MCG/ML VIAL IV PRN ×2 (17:00)
[2018-05-21] MEDS ORDERED: MIDAZOLAM 1 MG/ML 2 ML INJ IV PRN (17:00)
[2018-05-21] MEDS ORDERED: ROCURONIUM 50 MG INJ ONE (17:52)
--- NOTE | 2018-05-21 18:41 | PAC ---
Date/Time of Note Date/Time of Note DATE: 05/21/18 TIME: 18:41 Post-Anesthesia Notes Post-Anesthesia Note Last documented vital signs Vital Signs Date Temp Pulse Resp B/P (MAP) Pulse Ox O2 O2 Flow FiO2 Time Delivery Rate 05/21/18 112 29 96 30 17:00 05/21/18 98.1 115/82 15:40 (93) 05/18/18 Mechanical 16:03 Ventilator Activity: Other (sedated) Respiratory function: Other (trach) Cardiovascular function: WNL Mental status: Baseline Pain reasonably controlled: Yes Hydration appropriate: Yes Nausea/Vomiting absent: Yes KAT DIXON MD May 21, 2018 18:41
[2018-05-21] MEDS: LANSOPRAZOLE 30 MG CAP PO SCH (22:21)
[2018-05-21] MEDS: ATORVASTATIN 10 MG TAB PO SCH (22:22)
[2018-05-22] VITALS (23 sets, daily range): BP systolic 100–129; BP diastolic 71–93; PULSE 92–110; RESP 17–35
[2018-05-22] MEDS: ACETAMINOPHEN 650MG/20.3ML CUP GTB PRN (01:41)
[2018-05-22] MEDS: BALSAM PERU/CASTOR OIL 60 GM TUBE TOP SCH ×2 (08:39→21:21)
[2018-05-22] MEDS: ZINC SULFATE 220 MG CAP GTB SCH (08:39)
[2018-05-22] MEDS: COLLAGENASE 5 GM (UD JAR) TOP SCH (08:39)
[2018-05-22] MEDS: ASCORBIC ACID 500 MG TAB GTB SCH (08:39)
[2018-05-22] MEDS: MULTIVIT/CA CARB/B CMPLX/FA TAB GTB SCH (08:39)
[2018-05-22] MEDS: SODIUM HYPOCHLORITE (1/40) 1 APPLIC BTL IRR SCH ×2 (08:39→21:22)
--- NOTE | 2018-05-22 10:21 | PN ---
Date/Time of Note Date/Time of Note DATE: 05/22/18 TIME: 10:18 Assessment/Plan VTE Prophylaxis Risk score (from Nsg)>0 risk: 5 SCD applied (from Nsg): Yes Pharmacological prophylaxis: NA/contraindicated Pharm contraindication: low risk/ambulating Lines/Catheters IV Catheter Type (from Nrsg): Saline Lock Urinary Cath still in place: Yes Reason Cath still needed: urinary retention Assessment/Plan Hospital Course 62 y/o with # Oral gingival bleeding likely due to dentures, seen by ENT s/p endoscopy # Sepsis with Fevers with hx Pneumonia +UTI and ? Pancreatitis +multiple wounds, ucx+ lisa, wound cx+ MRSA/ pseudomonas, +resp culture +pseudomonas # Blood loss anemia due to oral gingival bleeding # VDRF # CKD with worsening renal failure>resolved # Metabolic acidosis #DILATED CARDIOMYOPATHY # HX ALCOHOL ABUSE # Multiple wounds > decub # Pancreatitis with elevated Lipase # Enterocoltiis on CT # AMS due to Metabolic encephalopathy with . Possible subacute infarct in the left cerebellar hemisphere and cerebellar peduncle> much improved> now again AMS? encephalopathy> now with new stroke on 05/05/18 #Ongoing fevers likely secondary to UTI/hcap now improved> again with fevers> +psedomonas in sputum has again gram-negative in the urine #TACYPNIC #non-gap metabolic acidosis plan -This post ERCP yesterday -We will get ABG - IV fluids with bicarb , will check lactate -spoke to Dr. vanegas to see the patient - off abx - -pain control -Pt is neurologically unchanged with no improvement -Follow with ID recs/gi - Result Diagram: 05/21/18 0920 05/22/18 0617 Results 24hrs Laboratory Tests Test 05/21/18 12:14 05/22/18 06:17 Lab Scanned Report REFERENCE LAB Sodium Level 144 Potassium Level 3.6 Chloride Level 120 H Carbon Dioxide Level 15 L Anion Gap 9 Blood Urea Nitrogen 47 H Creatinine 1.30 H Est Glomerular Filtrat Rate mL/min 56 L Glucose Level 110 Calcium Level 8.7 Total Bilirubin 0.1 L Direct Bilirubin 0.00 Indirect Bilirubin 0.1 Aspartate Amino Transf (AST/SGOT) 85 H Alanine Aminotransferase (ALT/SGPT) 25 Alkaline Phosphatase 242 H Total Protein 6.1 Albumin 2.3 L Globulin 3.80 H Albumin/Globulin Ratio 0.60 Subjective 24 Hr Interval Summary Free Text/Dictation he is very tachypneic today respiratory rate in over 30s Status post ERCP yesterday Exam/Review of Systems Exam Vitals Vital Signs Date Temp Pulse Resp B/P (MAP) Pulse Ox O2 O2 Flow FiO2 Time Delivery Rate 05/22/18 94 08:27 05/22/18 31 98 30 07:43 05/22/18 98.5 115/79 07:29 (91) 05/21/18 Mechanical 19:45 Ventilator Intake and Output 05/21/18 05/21/18 05/22/18 1515:00 23:00 07:00 IntakeIntake Total 505 ml OutputOutput Total 500 ml 500 ml BalanceBalance -500 ml 5 ml Exam Exam Constitutional: non-verbal, frail Neck: other (tracheostomy) Respiratory: diminished breath sounds Cardiovascular: regular rate and rhythm Gastrointestinal: soft, other (GT) Genitourinary - Male: other (mullins) Results Results 24hrs Laboratory Tests Test 05/21/18 12:14 05/22/18 06:17 Lab Scanned Report REFERENCE LAB Sodium Level 144 Potassium Level 3.6 Chloride Level 120 H Carbon Dioxide Level 15 L Anion Gap 9 Blood Urea Nitrogen 47 H Creatinine 1.30 H Est Glomerular Filtrat Rate mL/min 56 L Glucose Level 110 Calcium Level 8.7 Total Bilirubin 0.1 L Direct Bilirubin 0.00 Indirect Bilirubin 0.1 Aspartate Amino Transf (AST/SGOT) 85 H Alanine Aminotransferase (ALT/SGPT) 25 Alkaline Phosphatase 242 H Total Protein 6.1 Albumin 2.3 L Globulin 3.80 H Albumin/Globulin Ratio 0.60 Medications Medication Current Medications Collagenase (Santyl) 1 applic DAILY TOP Last administered on 05/22/18at 08:39; Admin Dose 1 APPLIC; Start 04/03/18 at 12:00 Lansoprazole (Prevacid) 30 mg HS PO Last administered on 05/21/18at 22:21; Admin Dose 30 MG; Start 04/20/18 at 21:00 Albuterol (Proventil 0.083% (Neb)) 2.5 mg Q3H RESP THERAPY PRN NEB WHEEZING AND SOB; Start 04/30/18 at 19:00 Ascorbic Acid (Vitamin C) 500 mg DAILY GTB Last administered on 05/22/18at 08:39; Admin Dose 500 MG; Start 05/04/18 at 09:30 Zinc Sulfate (Zinc Sulfate) 220 mg DAILY GTB Last administered on 05/22/18 08:39; Admin Dose 220 MG; Start 05/04/18 at 09:30 Multivit/Ca Carb/ B Cmplx/FA/Prenat (Sofy-Sandoval) 1 tab DAILY GTB Last administered on 05/22/18 08:39; Admin Dose 1 TAB; Start 05/04/18 at 09:30 Acetaminophen (Tylenol Liquid) 650 mg Q4H PRN GTB MILD PAIN(1-3)OR ELEVATED TEMP Last administered on 05/22/18 01:41; Admin Dose 650 MG; Start 05/04/18 at 09:30 Acetaminophen (Tylenol Supp) 650 mg Q6H PRN [place] temp over 101; Start 05/04/18 at 09:30 Polyethylene Glycol (Miralax) 17 gm DAILY PRN GTB constipation; Start 05/04/18 at 16:00 Hydralazine HCl (Apresoline) 5 mg Q6H PRN IV ELEVATED BLOOD PRESSURE; Start 05/04/18 at 22:30 Atorvastatin Calcium (Lipitor) 10 mg HS PO Last administered on 05/21/18 2 2:22; Admin Dose 10 MG; Start 05/06/18 at 21:00 Sodium Hypochlorite (Dakin'S (Dilute )) 1 applic BID IRR Last administered on 05/22/18 08:39; Admin Dose 1 APPLIC; Start 05/09/18 at 15:00 Morphine Sulfate (morphine) 5 mg Q4H PRN GTB SEVERE PAIN LEVEL 7-10 Last administered on 05/20/18 23:22; Admin Dose 5 MG; Start 05/11/18 at 14:00 Metoprolol Tartrate (Lopressor) 5 mg Q8H PRN IV HR >110; Start 05/21/18 at 14:00 TAMARA GRAJEDA MD May 22, 2018 10:21
[2018-05-22] MEDS ORDERED: SODIUM BICARBONATE (IV ADD) 100 MEQ in DEXTROSE 5% 1,000 ML IV SCH (11:30)
--- NOTE | 2018-05-22 11:36 | CONS ---
Assessment/Plan Assessment/Plan Hospital Course (Demo Recall) No acute changes overnight, afebrile, nad Microbiology: Urine culture on May 16 negative Indwelling: Trach PEG Schwartz. Physical examination: Chronically ill-appearing elderly man who is noncommunicative in no distress. Head atraumatic normocephalic sclera nonicteric neck is supple tracheostomy present chest rise symmetrical breath sounds diminished bases heart: S1-S2. Abdomen soft bowel sounds present. Extremities without cyanosis. Skin: Patient has multiple pressure sores he has a dry blood on the right lower lip Assessment: 1. S/p sepsis secondary to urinary tract infection and HCAP 2. 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 VDRF 3. Dysphagia 4. Chronic encephalopathy 5. History of cardiomyopathy 6. Sacral decub, s/p debridement 04/30/18 7. MRSA nares colonization 8. Elevated amylase and lipase of unclear etiology Plan: Clinically unchanged, s/p ERCP, no fevers, continue observing off antib iotics, repeat cultures if patient spikes fever of 101 Consultation Date/Type/Reason Admit Date/Time Mar 31, 2018 at 17:58 Initial Consult Date 04/02/18 Type of Consult id Requesting Provider: TAMARA GRAJEDA MD Date/Time of Note DATE: 05/22/18 TIME: 11:35 Exam/Review of Systems Exam Vitals Vital Signs Date Temp Pulse Resp B/P (MAP) Pulse Ox O2 O2 Flow FiO2 Time Delivery Rate 05/22/18 96 35 100 30 09:05 05/22/18 98.5 115/79 07:29 (91) 05/21/18 Mechanical 19:45 Ventilator Intake and Output 05/21/18 05/21/18 05/22/18 1515:00 23:00 07:00 IntakeIntake Total 505 ml OutputOutput Total 500 ml 500 ml BalanceBalance -500 ml 5 ml Results Result Diagram: 05/21/18 0920 05/22/18 0617 Results 24hrs Laboratory Tests Test 05/21/18 12:14 05/22/18 06:17 05/22/18 10:00 Lab Scanned Report REFERENCE LAB Sodium Level 144 Potassium Level 3.6 Chloride Level 120 H Carbon Dioxide Level 15 L Anion Gap 9 Blood Urea Nitrogen 47 H Creatinine 1.30 H Est Glomerular Filtrat 56 L Rate mL/min Glucose Level 110 Calcium Level 8.7 Total Bilirubin 0.1 L Direct Bilirubin 0.00 Indirect Bilirubin 0.1 Aspartate Amino 85 H Transf (AST/SGOT) Alanine 25 Aminotransferase (ALT/SGP T) Alkaline Phosphatase 242 H Total Protein 6.1 Albumin 2.3 L Globulin 3.80 H Albumin/Globulin Ratio 0.60 Blood Gas Specimen Blood arterial Source Arterial Blood Date 05/22/2018 10:35:17 AM Drawn Arterial Blood pH 7.418 (Temp corrected) Arterial Blood pCO2 24.5 L (Temp correct) Arterial Blood pO2 78.3 L (Temp corrected) Arterial Blood HCO3 15.5 L Arterial Blood Base -8.0 L Excess Arterial Blood 94.4 L Oxygen Saturation Brain Test ACCEPTAB Arterial Blood Gas Right Radial Puncture Site Arterial 0.3 Blood Carboxyhemoglobin Arterial Blood 0.3 Methemoglobin Blood Gas A-a O2 106.8 H Differential Oxyhemoglobin Percent 93.8 Blood Gas Temperature 37.0 Blood Gas Respiration 16.0 Rate Blood Gas Actual 32 Respiration Rate Blood Gas Modality VENT - AC FiO2 30.0 Blood Gas Tidal Volume 500.0 Blood Gas Low PEEP 5.0 Setting Blood Gas Notified Whom TM Blood Gas Notified Time 05/22/2018 10:44:50 AM Medications Medication Current Medications Collagenase (Santyl) 1 applic DAILY TOP Last administered on 05/22/18 08:39; Admin Dose 1 APPLIC; Start 04/03/18 at 12:00 Lansoprazole (Prevacid) 30 mg HS PO Last administered on 05/21/18 22:21; Admin Dose 30 MG; Start 04/20/18 at 21:00 Albuterol (Proventil 0.083% (Neb)) 2.5 mg Q3H RESP THERAPY PRN NEB WHEEZING AND SOB; Start 04/30/18 at 19:00 Ascorbic Acid (Vitamin C) 500 mg DAILY GTB Last administered on 05/22/18 08:39; Admin Dose 500 MG; Start 05/04/18 at 09:30 Zinc Sulfate (Zinc Sulfate) 220 mg DAILY GTB Last administered on 05/22/18 08:39; Admin Dose 220 MG; Start 05/04/18 at 09:30 Multivit/Ca Carb/ B Cmplx/FA/Prenat (Sofy-Sandoval) 1 tab DAILY GTB Last administered on 05/22/18 08:39; Admin Dose 1 TAB; Start 05/04/18 at 09:30 Acetaminophen (Tylenol Liquid) 650 mg Q4H PRN GTB MILD PAIN(1-3)OR ELEVATED TEMP Last administered on 05/22/18at 01:41; Admin Dose 650 MG; Start 05/04/18 at 09:30 Acetaminophen (Tylenol Supp) 650 mg Q6H PRN [place] temp over 101; Start 05/04/18 at 09:30 Polyethylene Glycol (Miralax) 17 gm DAILY PRN GTB constipation; Start 05/04/18 at 16:00 Hydralazine HCl (Apresoline) 5 mg Q6H PRN IV ELEVATED BLOOD PRESSURE; Start 05/04/18 at 22:30 Atorvastatin Calcium (Lipitor) 10 mg HS PO Last administered on 05/21/18at 22:22; Admin Dose 10 MG; Start 05/06/18 at 21:00 Sodium Hypochlorite (Dakin'S (Dilute )) 1 applic BID IRR Last administered on 05/22/18at 08:39; Admin Dose 1 APPLIC; Start 05/09/18 at 15:00 Morphine Sulfate (morphine) 5 mg Q4H PRN GTB SEVERE PAIN LEVEL 7-10 Last administered on 05/20/18 23:22; Admin Dose 5 MG; Start 05/11/18 at 14:00 Metoprolol Tartrate (Lopressor) 5 mg Q8H PRN IV HR >110; Start 05/21/18 at 14:00 Sodium Bicarbonate 100 meq/Dextrose 1,000 ml @ 50 mls/hr Q20H IV ; Start 05/22/18 at 11:30; Stop 05/23/18 at 07:29 RENÉ GARCIA NP May 22, 2018 11:36
--- NOTE | 2018-05-22 11:45 | PN ---
Date/Time of Note Date/Time of Note DATE: 05/22/18 TIME: 11:42 Assessment/Plan Lines/Catheters IV Catheter Type (from Nrs): Saline Lock Schwartz in Place (from Nrs): Yes Assessment/Plan Chief Complaint/Hosp Course 1. Decubitus pressure ulcers with necrosis s/p exc milena 04/30 -cont Local care -Offload -Nutritional optimization -Vitamin C -Short-term zinc -further debridement prn > spoke with regarding further debridement, at this time she would like to hold off on further debridements and continue only with local care. 2. 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 Poor quality of life -s/p family meeting >currentl level of care continues 4. Chronic renal disease -Judicious fluid management -Minimize nephrotoxic agents if possible 5. Dysphagia on tube feeds 6. Anemia -Monitor 7. Ventilator dependent respiratory failure, Left pna -abx -Ventilator management and pulmonary toilet 8. Abnormal lipase and ca19-9 s/p ercp 04/30 with stricture and sphincterotomy; repeat ERCP yesterday -Per GI 9. Dilated cardiomyopathy with congestive heart failure and coronary artery disease with history of hypertension -Cardiac optimization -Judicious fluid management -Electrolyte optimization Thank you. Patient seen and examined in collaboration with Dr. Chet Melvin. Subjective 24 Hr Interval Summary Status post ERCP. WBC normalized. Appears comfortable. Nonverbal indicators of pain at present. No fevers, congested cough, vomiting, diarrhea, seizure, rash, excessive wound drainage or odor. Exam/Review of Systems Vital Signs Vitals Vital Signs Date Temp Pulse Resp B/P (MAP) Pulse Ox O2 O2 Flow FiO2 Time Delivery Rate 05/22/18 92 33 97 30 11:40 05/22/18 98.2 122/86 11:36 (98) 05/21/18 Mechanical 19:45 Ventilator Intake and Output 05/21/18 05/21/18 05/22/18 1515:00 23:00 07:00 IntakeIntake Total 505 ml OutputOutput Total 500 ml 500 ml BalanceBalance -500 ml 5 ml Exam Free Text/Dictation Constitutional: No alert, No oriented, obtunded, withdraws from noxious stimuli Psych: confusion; No nl mood/affect Head: normocephalic Eyes: nl conjunctiva, PERRL; No icteric ENMT: nl lips & teeth, mucosa pink and dry, Neck: supple, jvd (Minimal), other (Trach in place) Respiratory: No congested cough, No labored breathing, No wheezing Cardiovascular: regular rate and rhythm; No edema Gastrointestinal: soft, non-tender, other (PEG); No distended, No rebound or guarding Genitourinary - Male: nl penis Musculoskeletal: No nl gait and stance, No joint tenderness Extremities: edema; No calf tenderness, No tenderness Neurological: No nl mental status, No nl speech, No nl strength Skin: rash or lesions (bilat buttock pressure decubitus wounds min debris/slough, granulating, scant drainage, no odor; Lower extremity wounds), ecchymosis; No nl turgor, No diaphoresis Lymph: No nl lymph nodes Results Result Diagram: 05/21/18 0920 05/22/18 0617 AURE ENRIQUEZ NP May 22, 2018 11:45
--- NOTE | 2018-05-22 14:38 | CONS ---
Consult Date/Type/Reason Admit Date/Time Mar 31, 2018 at 17:58 Initial Consult Date 04/02/18 Type of Consult Pulmonary Requesting Provider: TAMARA GRAJEDA MD Date/Time of Note DATE: 05/22/18 TIME: 14:37 Subjective No changes somnolent on vent/ Objective Vital Signs Date Temp Pulse Resp B/P (MAP) Pulse Ox O2 O2 Flow FiO2 Time Delivery Rate 05/22/18 99 12:22 05/22/18 33 97 30 11:40 05/22/18 98.2 122/86 11:36 (98) 05/21/18 Mechanical 19:45 Ventilator Intake and Output 05/21/18 05/21/18 05/22/18 1515:00 23:00 07:00 IntakeIntake Total 505 ml OutputOutput Total 500 ml 500 ml BalanceBalance -500 ml 5 ml Exam PHYSICAL EXAMINATION GENERAL: Chronically ill-appearing gentleman on mechanical ventilation VITAL SIGNS: see below. HEENT: Pupils equal, round, and reactive to light. Tracheostomy site clean and intact. CARDIAC: S1, S2, 1/6 systolic ejection murmur CHEST: Diminished air entry bilaterally. ABDOMEN: Mildly distended. Bowel sounds present no guarding or rebound EXTREMITIES: No cyanosis, clubbing edema +1 NEUROLOGIC: Generalized weakness Vent Setting Ventilator Support Mode: AC, VC plus Fraction of Inspired Oxygen pe: 30 Positive End Expiratory Pressu: 5.0 Results/Medications Result Diagram: 05/21/18 0920 05/22/18 0617 Results 24 hrs Laboratory Tests Test 05/22/18 06:17 05/22/18 10:00 Sodium Level 144 Potassium Level 3.6 Chloride Level 120 H Carbon Dioxide Level 15 L Anion Gap 9 Blood Urea Nitrogen 47 H Creatinine 1.30 H Est Glomerular Filtrat Rate mL/min 56 L Glucose Level 110 Calcium Level 8.7 Total Bilirubin 0.1 L Direct Bilirubin 0.00 Indirect Bilirubin 0.1 Aspartate Amino Transf (AST/SGOT) 85 H Alanine Aminotransferase (ALT/SGPT) 25 Alkaline Phosphatase 242 H Total Protein 6.1 Albumin 2.3 L Globulin 3.80 H Albumin/Globulin Ratio 0.60 Blood Gas Specimen Source Blood arterial Arterial Blood Date Drawn 05/22/2018 10:35:17 AM Arterial Blood pH (Temp corrected) 7.418 Arterial Blood pCO2 (Temp correct) 24.5 L Arterial Blood pO2 (Temp corrected) 78.3 L Arterial Blood HCO3 15.5 L Arterial Blood Base Excess -8.0 L Arterial Blood Oxygen Saturation 94.4 L Brain Test ACCEPTAB Arterial Blood Gas Puncture Site Right Radial Arterial Blood Carboxyhemoglobin 0.3 Arterial Blood Methemoglobin 0.3 Blood Gas A-a O2 Differential 106.8 H Oxyhemoglobin Percent 93.8 Blood Gas Temperature 37.0 Blood Gas Respiration Rate 16.0 Blood Gas Actual Respiration Rate 32 Blood Gas Modality VENT - AC FiO2 30.0 Blood Gas Tidal Volume 500.0 Blood Gas Low PEEP Setting 5.0 Blood Gas Notified Whom TM Blood Gas Notified Time 05/22/2018 10:44:50 AM Medications Current Medications Collagenase (Santyl) 1 applic DAILY TOP Last administered on 05/22/18 08:39; Admin Dose 1 APPLIC; Start 04/03/18 at 12:00 Lansoprazole (Prevacid) 30 mg HS PO Last administered on 05/21/18 22:21; Admin Dose 30 MG; Start 04/20/18 at 21:00 Albuterol (Proventil 0.083% (Neb)) 2.5 mg Q3H RESP THERAPY PRN NEB WHEEZING AND SOB; Start 04/30/18 at 19:00 Ascorbic Acid (Vitamin C) 500 mg DAILY GTB Last administered on 05/22/18 08:39; Admin Dose 500 MG; Start 05/04/18 at 09:30 Zinc Sulfate (Zinc Sulfate) 220 mg DAILY GTB Last administered on 05/22/18 08:39; Admin Dose 220 MG; Start 05/04/18 at 09:30 Multivit/Ca Carb/ B Cmplx/FA/Prenat (Sofy-Sandoval) 1 tab DAILY GTB Last administered on 05/22/18 08:39; Admin Dose 1 TAB; Start 05/04/18 at 09:30 Acetaminophen (Tylenol Liquid) 650 mg Q4H PRN GTB MILD PAIN(1-3)OR ELEVATED TEMP Last administered on 05/22/18 01:41; Admin Dose 650 MG; Start 05/04/18 at 09:30 Acetaminophen (Tylenol Supp) 650 mg Q6H PRN [place] temp over 101; Start 05/04/18 at 09:30 Polyethylene Glycol (Miralax) 17 gm DAILY PRN GTB constipation; Start 05/04/18 at 16:00 Hydralazine HCl (Apresoline) 5 mg Q6H PRN IV ELEVATED BLOOD PRESSURE; Start 05/04/18 at 22:30 Atorvastatin Calcium (Lipitor) 10 mg HS PO Last administered on 05/21/18at 22 :22; Admin Dose 10 MG; Start 05/06/18 at 21:00 Sodium Hypochlorite (Dakin'S (Dilute )) 1 applic BID IRR Last administered on 05/22/18at 08:39; Admin Dose 1 APPLIC; Start 05/09/18 at 15:00 Morphine Sulfate (morphine) 5 mg Q4H PRN GTB SEVERE PAIN LEVEL 7-10 Last administered on 05/20/18at 23:22; Admin Dose 5 MG; Start 05/11/18 at 14:00 Metoprolol Tartrate (Lopressor) 5 mg Q8H PRN IV HR >110; Start 05/21/18 at 14:00 Sodium Bicarbonate 100 meq/Dextrose 1,000 ml @ 50 mls/hr Q20H IV Last admini stered on 05/22/18at 13:34; Admin Dose 50 MLS/HR; Start 05/22/18 at 11:30; Stop 05/23/18 at 07:29 Assessment/Plan Hospital Course (Demo Recall) Assessment 1. Vent dependent respiratory failure 2. Anemia from upper airway bleed 3. Chronic encephalopathy 4. Dysphagia with G-tube 5. Afebrile now. Plan 1. Monitor H&H 2. Continue mechanical ventilation 3. GI recs 4. DVT and GI prophylaxis dc planning. no vent changes at present. SIRIA PISANO MD, FCCP May 22, 2018 14:38
--- NOTE | 2018-05-22 16:36 | CONS ---
Assessment/Plan Assessment/Plan Assessment/Plan (Daily) Hospital Course (Demo Recall) 62 male with excessively bleeding gingival tissue and severe anemia 1. Severe acute on chronic anemia likely due to blood loss from gingival bleeding -improved 3. Chronic liver disease, alcohol related 4. Mild coagulopathy 5. Elevated lipase with mildly elevated CA 19-9 -on CT scan pancreas is normal -lipid panel wnl -CBD 6mm, LFT wnl -Radiology will not do MRCP because of vent 6. 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 Encephalopathy secondary to anoxic brain injury -acute on chronic? -Ct shows acute ischemic infarct, pt is on ASA 8. H/o duodenal ulcer 9. Complex UTI with lisa albicans, s/p diflucan -RESOLVED 10. 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 Persistent fevers -99.2 this am 12. Abnormal LFTs -liver disease -trending down 13. Acute non hemorrhagic infarcts noted on Brain CT Plan: ERCP done patient had a sphincterotomy and stone was removed. Excellent drainage established. This report was done on [facility]MR but somehow it did not get transferred to [facility]. We have reported this to IT department Monitor LFT and WBC Monitor closely for GI bleeding and HH, Consultation Date/Type/Reason Admit Date/Time Mar 31, 2018 at 17:58 Initial Consult Date 04/02/18 Requesting Provider: TAMARA GRAJEDA MD Date/Time of Note DATE: 05/22/18 TIME: 16:35 24 HR Interval Summary Constitutional: improved Exam/Review of Systems Exam Vitals Vital Signs Date Temp Pulse Resp B/P (MAP) Pulse Ox O2 O2 Flow FiO2 Time Delivery Rate 05/22/18 109 16:17 05/22/18 98.6 17 129/93 97 15:33 (105) 05/22/18 30 11:40 05/21/18 Mechanical 19:45 Ventilator Intake and Output 05/21/18 05/21/18 05/22/18 1515:00 23:00 07:00 IntakeIntake Total 505 ml OutputOutput Total 500 ml 500 ml BalanceBalance -500 ml 5 ml ENMT: nl external ears & nose, nl lips & teeth, nl nasal mucosa & septum Neck: supple Respiratory: clear to auscultation, normal air movement Cardiovascular: regular rate and rhythm, nl pulses Gastrointestinal: soft, nl liver, spleen, non-tender Extremities: normal pulses Results Result Diagram: 05/21/18 0920 05/22/18 0617 Results 24hrs Laboratory Tests Test 05/22/18 06:17 05/22/18 10:00 Sodium Level 144 Potassium Level 3.6 Chloride Level 120 H Carbon Dioxide Level 15 L Anion Gap 9 Blood Urea Nitrogen 47 H Creatinine 1.30 H Est Glomerular Filtrat Rate mL/min 56 L Glucose Level 110 Calcium Level 8.7 Total Bilirubin 0.1 L Direct Bilirubin 0.00 Indirect Bilirubin 0.1 Aspartate Amino Transf (AST/SGOT) 85 H Alanine Aminotransferase (ALT/SGPT) 25 Alkaline Phosphatase 242 H Total Protein 6.1 Albumin 2.3 L Globulin 3.80 H Albumin/Globulin Ratio 0.60 Blood Gas Specimen Source Blood arterial Arterial Blood Date Drawn 05/22/2018 10:35:17 AM Arterial Blood pH (Temp corrected) 7.418 Arterial Blood pCO2 (Temp correct) 24.5 L Arterial Blood pO2 (Temp corrected) 78.3 L Arterial Blood HCO3 15.5 L Arterial Blood Base Excess -8.0 L Arterial Blood Oxygen Saturation 94.4 L Brain Test ACCEPTAB Arterial Blood Gas Puncture Site Right Radial Arterial Blood Carboxyhemoglobin 0.3 Arterial Blood Methemoglobin 0.3 Blood Gas A-a O2 Differential 106.8 H Oxyhemoglobin Percent 93.8 Blood Gas Temperature 37.0 Blood Gas Respiration Rate 16.0 Blood Gas Actual Respiration Rate 32 Blood Gas Modality VENT - AC FiO2 30.0 Blood Gas Tidal Volume 500.0 Blood Gas Low PEEP Setting 5.0 Blood Gas Notified Whom TM Blood Gas Notified Time 05/22/2018 10:44:50 AM Medications Medication Current Medications Collagenase (Santyl) 1 applic DAILY TOP Last administered on 05/22/18 08:39; Admin Dose 1 APPLIC; Start 04/03/18 at 12:00 Lansoprazole (Prevacid) 30 mg HS PO Last administered on 05/21/18at 22:21; Admin Dose 30 MG; Start 04/20/18 at 21:00 Albuterol (Proventil 0.083% (Neb)) 2.5 mg Q3H RESP THERAPY PRN NEB WHEEZING AND SOB; Start 04/30/18 at 19:00 Ascorbic Acid (Vitamin C) 500 mg DAILY GTB Last administered on 05/22/18at 08:39; Admin Dose 500 MG; Start 05/04/18 at 09:30 Zinc Sulfate (Zinc Sulfate) 220 mg DAILY GTB Last administered on 05/22/18 08:39; Admin Dose 220 MG; Start 05/04/18 at 09:30 Multivit/Ca Carb/ B Cmplx/FA/Prenat (Sofy-Sandoval) 1 tab DAILY GTB Last administered on 05/22/18 08:39; Admin Dose 1 TAB; Start 05/04/18 at 09:30 Acetaminophen (Tylenol Liquid) 650 mg Q4H PRN GTB MILD PAIN(1-3)OR ELEVATED TEMP Last administered on 05/22/18 01:41; Admin Dose 650 MG; Start 05/04/18 at 09:30 Acetaminophen (Tylenol Supp) 650 mg Q6H PRN [place] temp over 101; Start 05/04/18 at 09:30 Polyethylene Glycol (Miralax) 17 gm DAILY PRN GTB constipation; Start 05/04/18 at 16:00 Hydralazine HCl (Apresoline) 5 mg Q6H PRN IV ELEVATED BLOOD PRESSURE; Start 05/04/18 at 22:30 Atorvastatin Calcium (Lipitor) 10 mg HS PO Last administered on 05/21/18 22:22; Admin Dose 10 MG; Start 05/06/18 at 21:00 Sodium Hypochlorite (Dakin'S (Dilute )) 1 applic BID IRR Last administered on 05/22/18 08:39; Admin Dose 1 APPLIC; Start 05/09/18 at 15:00 Morphine Sulfate (morphine) 5 mg Q4H PRN GTB SEVERE PAIN LEVEL 7-10 Last administered on 05/20/18 23:22; Admin Dose 5 MG; Start 05/11/18 at 14:00 Metoprolol Tartrate (Lopressor) 5 mg Q8H PRN IV HR >110; Start 05/21/18 at 14:00 Sodium Bicarbonate 100 meq/Dextrose 1,000 ml @ 50 mls/hr Q20H IV Last administered on 05/22/18 13:34; Admin Dose 50 MLS/HR; Start 05/22/18 at 11:30; Stop 05/23/18 at 07:29 RASHEEDA MEJIA MD May 22, 2018 16:36
[2018-05-22] MEDS: ATORVASTATIN 10 MG TAB PO SCH (21:21)
[2018-05-23] VITALS (23 sets, daily range): BP systolic 110–141; BP diastolic 65–95; PULSE 83–110; RESP 28–36
[2018-05-23] MEDS: COLLAGENASE 5 GM (UD JAR) TOP SCH (08:11)
[2018-05-23] MEDS: ZINC SULFATE 220 MG CAP GTB SCH (08:11)
[2018-05-23] MEDS: ASCORBIC ACID 500 MG TAB GTB SCH (08:11)
[2018-05-23] MEDS: MULTIVIT/CA CARB/B CMPLX/FA TAB GTB SCH (08:11)
[2018-05-23] MEDS: BALSAM PERU/CASTOR OIL 60 GM TUBE TOP SCH ×2 (08:12→21:43)
[2018-05-23] MEDS: SODIUM HYPOCHLORITE (1/40) 1 APPLIC BTL IRR SCH ×2 (08:12→21:43)
[2018-05-23] MEDS ORDERED: POTASSIUM CHLORIDE (SR) 20 MEQ TAB PO STA (09:58)
--- NOTE | 2018-05-23 10:24 | PN ---
Date/Time of Note Date/Time of Note DATE: 05/23/18 TIME: 10:21 Assessment/Plan Lines/Catheters IV Catheter Type (from Nrs): Peripheral IV Schwartz in Place (from Nrs): Yes Assessment/Plan Chief Complaint/Hosp Course 1. Decubitus pressure ulcers with necrosis s/p exc milena 04/30 -cont Local care -Offload -Nutritional optimization -Vitamin C -Short-term zinc -spoke with regarding further debridement, at this time she would like to hold off on further debridement and continue only with local care. 2. 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 Poor quality of life -s/p family meeting >currentl level of care continues 4. Chronic renal disease -Judicious fluid management -Minimize nephrotoxic agents if possible 5. Dysphagia on tube feeds 6. Anemia -Monitor 7. Ventilator dependent respiratory failure, Left pna -abx -Ventilator management and pulmonary toilet 8. Abnormal lipase and ca19-9 s/p ercp 04/30 with stricture and sphincterotomy; repeat ERCP: with removal of small bile duct stones and cholesterol sludge -Per GI -Trend 9. Dilated cardiomyopathy with congestive heart failure and coronary artery disease with history of hypertension -Cardiac optimization -Judicious fluid management -Electrolyte optimization Thank you. Patient seen and examined in collaboration with Dr. Chet Melvin. Subjective 24 Hr Interval Summary Tachycardia. Appears comfortable. Nonverbal indicators of pain not present. No labored breathing, congested cough, vomiting, diarrhea, seizure, rash, fevers. Exam/Review of Systems Vital Signs Vitals Vital Signs Date Temp Pulse Resp B/P (MAP) Pulse Ox O2 O2 Flow FiO2 Time Delivery Rate 05/23/18 98 36 100 30 10:04 05/23/18 98.2 125/95 Mechanical 07:41 (105) Ventilator Intake and Output 05/22/18 05/22/18 05/23/18 1515:00 23:00 07:00 IntakeIntake Total 755 ml 505 ml OutputOutput Total 300 ml 550 ml BalanceBalance 455 ml -45 ml Exam Free Text/Dictation Constitutional: No alert, No oriented, obtunded, withdraws from noxious stimuli Psych: confusion; No nl mood/affect Head: normocephalic Eyes: nl conjunctiva, PERRL; No icteric ENMT: nl lips & teeth, mucosa pink and dry, Neck: supple, jvd (Minimal), other (Trach in place) Respiratory: No congested cough, No labored breathing, No wheezing Cardiovascular: regular rate and rhythm; No edema Gastrointestinal: soft, non-tender, other (PEG); No distended, No rebound or guarding Genitourinary - Male: nl penis Musculoskeletal: No nl gait and stance, No joint tenderness Extremities: edema; No calf tenderness, No tenderness Neurological: No nl mental status, No nl speech, No nl strength Skin: rash or lesions (bilat buttock pressure decubitus wounds min debris/slough, granulating, scant drainage, no odor; Lower extremity wounds), ecchymosis; No nl turgor, No diaphoresis Lymph: No nl lymph nodes Results Result Diagram: 05/23/1862305/23/18 0624 AURE ENRIQUEZ NP May 23, 2018 10:24
--- NOTE | 2018-05-23 11:04 | CONS ---
Assessment/Plan Assessment/Plan Hospital Course (Demo Recall) No acute changes overnight, afebrile, nad Microbiology: Urine culture on May 16 negative Indwelling: Trach PEG Schwartz. Physical examination: Chronically ill-appearing elderly man who is noncommunicative in no distress. Head atraumatic normocephalic sclera nonicteric neck is supple tracheostomy present chest rise symmetrical breath sounds diminished bases heart: S1-S2. Abdomen soft bowel sounds present. Extremities without cyanosis. Skin: Patient has multiple pressure sores he has a dry blood on the right lower lip Assessment: 1. S/p sepsis secondary to urinary tract infection and HCAP 2. Ongoing fevers, cant r/o malignancy given elevated CA19 and lipase==> s/p ERCP with sphincterotomy and stone removal 05/22/18 2. VDRF 3. Dysphagia 4. Chronic encephalopathy 5. History of cardiomyopathy 6. Sacral decub, s/p debridement 04/30/18 7. MRSA nares colonization 8. Elevated amylase and lipase of unclear etiology Plan: Clinically unchanged, no fevers, continue observing off antibiotics, repeat cultures if patient spikes fever of 101 Consultation Date/Type/Reason Admit Date/Time Mar 31, 2018 at 17:58 Initial Consult Date 04/02/18 Type of Consult id Requesting Provider: TAMARA GRAJEDA MD Date/Time of Note DATE: 05/23/18 TIME: 11:03 Exam/Review of Systems Exam Vitals Vital Signs Date Temp Pulse Resp B/P (MAP) Pulse Ox O2 O2 Flow FiO2 Time Delivery Rate 05/23/18 98 36 100 30 10:04 05/23/18 98.2 125/95 Mechanical 07:41 (105) Ventilator Intake and Output 05/22/18 05/22/18 05/23/18 1515:00 23:00 07:00 IntakeIntake Total 755 ml 505 ml OutputOutput Total 300 ml 550 ml BalanceBalance 455 ml -45 ml Results Result Diagram: 05/23/1862305/23/18623 Results 24hrs Laboratory Tests Test 05/23/18 06:24 White Blood Count 8.5 Red Blood Count 2.84 L Hemoglobin 7.8 L Hematocrit 24.6 L Mean Corpuscular Volume 86.6 Mean Corpuscular Hemoglobin 27.5 L Mean Corpuscular Hemoglobin Concent 31.7 L Red Cell Distribution Width 16.5 H Platelet Count 204 Mean Platelet Volume 10.5 H Immature Granulocytes % 0.900 H Neutrophils % 76.2 Lymphocytes % 6.9 L Monocytes % 8.8 Eosinophils % 6.7 Basophils % 0.5 Nucleated Red Blood Cells % 0.2 H Immature Granulocytes # 0.080 H Neutrophils # 6.5 Lymphocytes # 0.6 L Monocytes # 0.8 Eosinophils # 0.6 H Basophils # 0.0 Nucleated Red Blood Cells # 0.0 Sodium Level 144 Potassium Level 3.2 L Chloride Level 115 H Carbon Dioxide Level 18 L Anion Gap 11 Blood Urea Nitrogen 48 H Creatinine 1.23 Est Glomerular Filtrat Rate mL/min > 60 Glucose Level 114 Lactic Acid Level 1.5 Calcium Level 8.7 Phosphorus Level 3.6 Magnesium Level 2.2 Medications Medication Current Medications Collagenase (Santyl) 1 applic DAILY TOP Last administered on 05/23/18 08:11; Admin Dose 1 APPLIC; Start 04/03/18 at 12:00 Albuterol (Proventil 0.083% (Neb)) 2.5 mg Q3H RESP THERAPY PRN NEB WHEEZING AND SOB; Start 04/30/18 at 19:00 Ascorbic Acid (Vitamin C) 500 mg DAILY GTB Last administered on 05/23/18 08:11; Admin Dose 500 MG; Start 05/04/18 at 09:30 Zinc Sulfate (Zinc Sulfate) 220 mg DAILY GTB Last administered on 05/23/18 08:11; Admin Dose 220 MG; Start 05/04/18 at 09:30 Multivit/Ca Carb/ B Cmplx/FA/Prenat (Sofy-Sandoval) 1 tab DAILY GTB Last administered on 05/23/18 08:11; Admin Dose 1 TAB; Start 05/04/18 at 09:30 Acetaminophen (Tylenol Liquid) 650 mg Q4H PRN GTB MILD PAIN(1-3)OR ELEVATED TEMP Last administered on 05/22/18 01:41; Admin Dose 650 MG; Start 05/04/18 at 09:30 Acetaminophen (Tylenol Supp) 650 mg Q6H PRN [place] temp over 101; Start 05/04/18 at 09:30 Polyethylene Glycol (Miralax) 17 gm DAILY PRN GTB constipation; Start 05/04/18 at 16:00 Hydralazine HCl (Apresoline) 5 mg Q6H PRN IV ELEVATED BLOOD PRESSURE; Start 05/04/18 at 22:30 Atorvastatin Calcium (Lipitor) 10 mg HS PO Last administered on 05/22/18at 21:21; Admin Dose 10 MG; Start 05/06/18 at 21:00 Sodium Hypochlorite (Dakin'S (Dilute )) 1 applic BID IRR Last administered on 05/23/18at 08:12; Admin Dose 1 APPLIC; Start 05/09/18 at 15:00 Morphine Sulfate (morphine) 5 mg Q4H PRN GTB SEVERE PAIN LEVEL 7-10 Last administered on 05/20/18at 23:22; Admin Dose 5 MG; Start 05/11/18 at 14:00 Metoprolol Tartrate (Lopressor) 5 mg Q8H PRN IV HR >110; Start 05/21/18 at 14:00 RENÉ GARCIA NP May 23, 2018 11:04
[2018-05-23] MEDS ORDERED: POTASSIUM CHLORIDE 20 MEQ POWDER FOR ORAL SOLN PO ONE (11:30)
--- NOTE | 2018-05-23 15:33 | PN ---
Date/Time of Note Date/Time of Note DATE: 05/23/18 TIME: 15:33 Assessment/Plan VTE Prophylaxis Risk score (from Ns)>0 risk: 6 SCD applied (from Ns): Yes Pharmacological prophylaxis: NA/contraindicated Pharm contraindication: low risk/ambulating Lines/Catheters IV Catheter Type (from Nrsg): Peripheral IV Urinary Cath still in place: Yes Reason Cath still needed: urinary retention Assessment/Plan Hospital Course 62 y/o with # Oral gingival bleeding likely due to dentures, seen by ENT s/p endoscopy # Sepsis with Fevers with hx Pneumonia +UTI and ? Pancreatitis +multiple wounds, ucx+ lisa, wound cx+ MRSA/ pseudomonas, +resp culture +pseudomonas # Blood loss anemia due to oral gingival bleeding # VDRF # CKD with worsening renal failure>resolved # Metabolic acidosis #DILATED CARDIOMYOPATHY # HX ALCOHOL ABUSE # Multiple wounds > decub # Pancreatitis with elevated Lipase # Enterocoltiis on CT # AMS due to Metabolic encephalopathy with . Possible subacute infarct in the left cerebellar hemisphere and cerebellar peduncle> much improved> now again AMS? encephalopathy> now with new stroke on 05/05/18 #Ongoing fevers likely secondary to UTI/hcap now improved> again with fevers> +psedomonas in sputum has again gram-negative in the urine s/p ercp with removal of stone #TACYPNIC #non-gap metabolic acidosis plan -s/p ERCP with removal of stone -spoke to Dr. vanegas to see the patient - off abx - -pain control -Pt is neurologically unchanged with no improvement -Follow with ID recs/gi dc planning> spoke to - Result Diagram: 05/23/18 0624 05/23/18 0624 Results 24hrs Laboratory Tests Test 05/23/18 06:24 White Blood Count 8.5 Red Blood Count 2.84 L Hemoglobin 7.8 L Hematocrit 24.6 L Mean Corpuscular Volume 86.6 Mean Corpuscular Hemoglobin 27.5 L Mean Corpuscular Hemoglobin Concent 31.7 L Red Cell Distribution Width 16.5 H Platelet Count 204 Mean Platelet Volume 10.5 H Immature Granulocytes % 0.900 H Neutrophils % 76.2 Lymphocytes % 6.9 L Monocytes % 8.8 Eosinophils % 6.7 Basophils % 0.5 Nucleated Red Blood Cells % 0.2 H Immature Granulocytes # 0.080 H Neutrophils # 6.5 Lymphocytes # 0.6 L Monocytes # 0.8 Eosinophils # 0.6 H Basophils # 0.0 Nucleated Red Blood Cells # 0.0 Sodium Level 144 Potassium Level 3.2 L Chloride Level 115 H Carbon Dioxide Level 18 L Anion Gap 11 Blood Urea Nitrogen 48 H Creatinine 1.23 Est Glomerular Filtrat Rate mL/min > 60 Glucose Level 114 Lactic Acid Level 1.5 Calcium Level 8.7 Phosphorus Level 3.6 Magnesium Level 2.2 Subjective 24 Hr Interval Summary Free Text/Dictation Bicarb has improved s/p D5 W with bicarb Exam/Review of Systems Exam Vitals Vital Signs Date Temp Pulse Resp B/P (MAP) Pulse Ox O2 O2 Flow FiO2 Time Delivery Rate 05/23/18 98.3 83 28 124/85 99 Mechanical 15:14 (98) Ventilator 05/23/18 30 13:55 Intake and Output 05/22/18 05/22/18 05/23/18 1515:00 23:00 07:00 IntakeIntake Total 755 ml 505 ml OutputOutput Total 300 ml 550 ml BalanceBalance 455 ml -45 ml Exam Exam Constitutional: non-verbal, frail Neck: other (tracheostomy) Respiratory: diminished breath sounds Cardiovascular: regular rate and rhythm Gastrointestinal: soft, other (GT) Genitourinary - Male: other (mullins) Results Results 24hrs Laboratory Tests Test 05/23/18 06:24 White Blood Count 8.5 Red Blood Count 2.84 L Hemoglobin 7.8 L Hematocrit 24.6 L Mean Corpuscular Volume 86.6 Mean Corpuscular Hemoglobin 27.5 L Mean Corpuscular Hemoglobin Concent 31.7 L Red Cell Distribution Width 16.5 H Platelet Count 204 Mean Platelet Volume 10.5 H Immature Granulocytes % 0.900 H Neutrophils % 76.2 Lymphocytes % 6.9 L Monocytes % 8.8 Eosinophils % 6.7 Basophils % 0.5 Nucleated Red Blood Cells % 0.2 H Immature Granulocytes # 0.080 H Neutrophils # 6.5 Lymphocytes # 0.6 L Monocytes # 0.8 Eosinophils # 0.6 H Basophils # 0.0 Nucleated Red Blood Cells # 0.0 Sodium Level 144 Potassium Level 3.2 L Chloride Level 115 H Carbon Dioxide Level 18 L Anion Gap 11 Blood Urea Nitrogen 48 H Creatinine 1.23 Est Glomerular Filtrat Rate mL/min > 60 Glucose Level 114 Lactic Acid Level 1.5 Calcium Level 8.7 Phosphorus Level 3.6 Magnesium Level 2.2 Medications Medication Current Medications Collagenase (Santyl) 1 applic DAILY TOP Last administered on 05/23/18 08:11; Admin Dose 1 APPLIC; Start 04/03/18 at 12:00 Albuterol (Proventil 0.083% (Neb)) 2.5 mg Q3H RESP THERAPY PRN NEB WHEEZING AND SOB; Start 04/30/18 at 19:00 Ascorbic Acid (Vitamin C) 500 mg DAILY GTB Last administered on 05/23/18 08:11; Admin Dose 500 MG; Start 05/04/18 at 09:30 Zinc Sulfate (Zinc Sulfate) 220 mg DAILY GTB Last administered on 05/23/18 08:11; Admin Dose 220 MG; Start 05/04/18 at 09:30 Multivit/Ca Carb/ B Cmplx/FA/Prenat (Sofy-Sandoval) 1 tab DAILY GTB Last administered on 05/23/18 08:11; Admin Dose 1 TAB; Start 05/04/18 at 09:30 Acetaminophen (Tylenol Liquid) 650 mg Q4H PRN GTB MILD PAIN(1-3)OR ELEVATED TEMP Last administered on 05/22/18 01:41; Admin Dose 650 MG; Start 05/04/18 at 09:30 Acetaminophen (Tylenol Supp) 650 mg Q6H PRN [place] temp over 101; Start 05/04/18 at 09:30 Polyethylene Glycol (Miralax) 17 gm DAILY PRN GTB constipation; Start 05/04/18 at 16:00 Hydralazine HCl (Apresoline) 5 mg Q6H PRN IV ELEVATED BLOOD PRESSURE; Start 05/04/18 at 22:30 Atorvastatin Calcium (Lipitor) 10 mg HS PO Last administered on 05/22/18 21:21; Admin Dose 10 MG; Start 05/06/18 at 21:00 Sodium Hypochlorite (Dakin'S (Dilute )) 1 applic BID IRR Last administered on 05/23/18 08:12; Admin Dose 1 APPLIC; Start 05/09/18 at 15:00 Morphine Sulfate (morphine) 5 mg Q4H PRN GTB SEVERE PAIN LEVEL 7-10 Last administered on 05/20/18 23:22; Admin Dose 5 MG; Start 05/11/18 at 14:00 Metoprolol Tartrate (Lopressor) 5 mg Q8H PRN IV HR >110; Start 05/21/18 at 14:00 TAMARA GRAJEDA MD May 23, 2018 15:33
--- NOTE | 2018-05-23 19:00 | CONS ---
Assessment/Plan Assessment/Plan Assessment/Plan (Daily) Hospital Course (Demo Recall) 62 male with excessively bleeding gingival tissue and severe anemia 1. Severe acute on chronic anemia likely due to blood loss from gingival bleeding -improved 3. Chronic liver disease, alcohol related 4. Mild coagulopathy 5. Elevated lipase with mildly elevated CA 19-9 -on CT scan pancreas is normal -lipid panel wnl -CBD 6mm, LFT wnl -Radiology will not do MRCP because of vent 6. Chronic kidney disease -BUN/print controller wnl 7. Encephalopathy secondary to anoxic brain injury -acute on chronic? -Ct shows acute ischemic infarct, pt is on ASA 8. H/o duodenal ulcer 9. Complex UTI with lisa albicans, s/p diflucan -RESOLVED 10. 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 Persistent fevers -99.2 this am 12. Abnormal LFTs -liver disease -trending down 13. Acute non hemorrhagic infarcts noted on Brain CT Plan: ERCP done patient had a sphincterotomy and stone was removed. Excellent drainage established. This report was done on [facility] but somehow it did not get transferred to [facility]. We have reported this to IT department Monitor LFT and WBC Monitor closely for GI bleeding and HH, Consultation Date/Type/Reason Admit Date/Time Mar 31, 2018 at 17:58 Initial Consult Date 04/02/18 Requesting Provider: TAMARA GRAJEDA MD Date/Time of Note DATE: 05/23/18 TIME: 18:58 24 HR Interval Summary Subjective hx not possible: pt non-verbal, pt critical status Exam/Review of Systems Exam Vitals Vital Signs Date Temp Pulse Resp B/P (MAP) Pulse Ox O2 O2 Flow FiO2 Time Delivery Rate 05/23/18 95 35 100 30 17:55 05/23/18 98.3 124/85 Mechanical 15:14 (98) Ventilator Intake and Output 05/22/18 05/22/18 05/23/18 1515:00 23:00 07:00 IntakeIntake Total 755 ml 505 ml OutputOutput Total 300 ml 550 ml BalanceBalance 455 ml -45 ml Cardiovascular: regular rate and rhythm, nl pulses Neurological: unresponsive Results Result Diagram: 05/23/18 0624 05/23/18 0624 Results 24hrs Laboratory Tests Test 05/23/18 06:24 White Blood Count 8.5 Red Blood Count 2.84 L Hemoglobin 7.8 L Hematocrit 24.6 L Mean Corpuscular Volume 86.6 Mean Corpuscular Hemoglobin 27.5 L Mean Corpuscular Hemoglobin Concent 31.7 L Red Cell Distribution Width 16.5 H Platelet Count 204 Mean Platelet Volume 10.5 H Immature Granulocytes % 0.900 H Neutrophils % 76.2 Lymphocytes % 6.9 L Monocytes % 8.8 Eosinophils % 6.7 Basophils % 0.5 Nucleated Red Blood Cells % 0.2 H Immature Granulocytes # 0.080 H Neutrophils # 6.5 Lymphocytes # 0.6 L Monocytes # 0.8 Eosinophils # 0.6 H Basophils # 0.0 Nucleated Red Blood Cells # 0.0 Sodium Level 144 Potassium Level 3.2 L Chloride Level 115 H Carbon Dioxide Level 18 L Anion Gap 11 Blood Urea Nitrogen 48 H Creatinine 1.23 Est Glomerular Filtrat Rate mL/min > 60 Glucose Level 114 Lactic Acid Level 1.5 Calcium Level 8.7 Phosphorus Level 3.6 Magnesium Level 2.2 Medications Medication Current Medications Collagenase (Santyl) 1 applic DAILY TOP Last administered on 05/23/18 08:11; Admin Dose 1 APPLIC; Start 04/03/18 at 12:00 Albuterol (Proventil 0.083% (Neb)) 2.5 mg Q3H RESP THERAPY PRN NEB WHEEZING AND SOB; Start 04/30/18 at 19:00 Ascorbic Acid (Vitamin C) 500 mg DAILY GTB Last administered on 05/23/18 08:11; Admin Dose 500 MG; Start 05/04/18 at 09:30 Zinc Sulfate (Zinc Sulfate) 220 mg DAILY GTB Last administered on 05/23/18 08:11; Admin Dose 220 MG; Start 05/04/18 at 09:30 Multivit/Ca Carb/ B Cmplx/FA/Prenat (Sofy-Sandoval) 1 tab DAILY GTB Last administered on 05/23/18 08:11; Admin Dose 1 TAB; Start 05/04/18 at 09:30 Acetaminophen (Tylenol Liquid) 650 mg Q4H PRN GTB MILD PAIN(1-3)OR ELEVATED TEMP Last administered on 05/22/18 01:41; Admin Dose 650 MG; Start 05/04/18 at 09:30 Acetaminophen (Tylenol Supp) 650 mg Q6H PRN [place] temp over 101; Start 05/04/18 at 09:30 Polyethylene Glycol (Miralax) 17 gm DAILY PRN GTB constipation; Start 05/04/18 at 16:00 Hydralazine HCl (Apresoline) 5 mg Q6H PRN IV ELEVATED BLOOD PRESSURE; Start 05/04/18 at 22:30 Atorvastatin Calcium (Lipitor) 10 mg HS PO Last administered on 05/22/18at 21:21; Admin Dose 10 MG; Start 05/06/18 at 21:00 Sodium Hypochlorite (Dakin'S (Dilute )) 1 applic BID IRR Last administered on 05/23/18at 08:12; Admin Dose 1 APPLIC; Start 05/09/18 at 15:00 Morphine Sulfate (morphine) 5 mg Q4H PRN GTB SEVERE PAIN LEVEL 7-10 Last adm inistered on 05/20/18at 23:22; Admin Dose 5 MG; Start 05/11/18 at 14:00 Metoprolol Tartrate (Lopressor) 5 mg Q8H PRN IV HR >110; Start 05/21/18 at 14:00 RASHEEDA MEJIA MD May 23, 2018 19:00
[2018-05-23] MEDS: ATORVASTATIN 10 MG TAB PO SCH (21:42)
[2018-05-24] VITALS (13 sets, daily range): BP systolic 125–141; BP diastolic 86–92; PULSE 96–132; RESP 27–37
[2018-05-24] MEDS: MULTIVIT/CA CARB/B CMPLX/FA TAB GTB SCH (09:03)
[2018-05-24] MEDS: SODIUM HYPOCHLORITE (1/40) 1 APPLIC BTL IRR SCH (09:03)
[2018-05-24] MEDS: ASCORBIC ACID 500 MG TAB GTB SCH (09:03)
[2018-05-24] MEDS: COLLAGENASE 5 GM (UD JAR) TOP SCH (09:03)
[2018-05-24] MEDS: BALSAM PERU/CASTOR OIL 60 GM TUBE TOP SCH (09:03)
[2018-05-24] MEDS: ZINC SULFATE 220 MG CAP GTB SCH (09:03)
[2018-05-24] MEDS ORDERED: POTASSIUM CHLORIDE (SR) 20 MEQ TAB PO STA (10:05)
[2018-05-24] MEDS: morphine LIQ (10 MG/5 ML) CUP GTB PRN (10:36)
--- NOTE | 2018-05-24 12:47 | DS ---
Date/Time of Note Date/Time of Note DATE: 05/24/18 TIME: 12:46 Discharge Summary Admission/Discharge Info Admit Date/Time Mar 31, 2018 at 17:58 Discharge Date/Time Discharge Diagnosis VDRF, Oral gingival bleeding, pancreatitis Patient Condition: Fair Consults neurology Dr Edwards, pulmonology dr orona group, Dr Peña, GI, ID specialist dr jensen, Oncology hematology dr Pappas, Dr Bedolla, palliative care, Dr Otero, surgery Procedures ERCP x 2 times, coccyx wound debridement Hospital Course This 62 y/o male was admitted to [facility] with oral bleeding, fevers, VDRF, UTI, history of alcohol abuse and G tube dependent from other hospital. He had history of pneumonia, and questionable pancreatitis. Upon presentation to ER he had severe blood loss and anemia due to oral bleeding. Pt also had numerous decubitus due to functional quadriplegia, encephalopathy, VDRF and tracheostomy. Pt also demonstrated a CKD, dilated cardiomyopathy and dysphagia. During hospitalization patient was on telemetry service, he received few PRBCs and his H and H was monitored. During hospitalization pt spiked temperature few times, we panculture him for a few times and performed numerous procedure to detect source of infection, including WBC scan. It did not show any menigful source of infection. ID consult dr Arreguin was consulted to fight with infection. Pt was on IV Vancomycin and Cefepime, later on antifungal medications. There were few rounds of antibiotics for a period around [address] Darden managed pt gingival bleeding, that was seen few times during hospitalization. Pulmonary co nsult Dr Orona/Thomas managed patent VDRF, ventilator and breathing treatment. Dr Peña, GI consult performed 2 ERCP and removed stone. Pt lipase and amylase fluctuated during hospitalization due to pancreatitis. Radiology decline perform MRCP due to constant motion of ventilator. Pt had numerous wounds and DTI, he was on air mattress with daily dressing changes. He had coccyx wound dbridement by Dr. Otero. Pt unable to tolerate blood thinners, he developed anemia. When blood thinners was stopped he developed nonhemorrhagic stroke. His consciousness and brain activity significantly decreased. Neurology specialists, Dr Murphy performed EEG to determine brain function and Dr Rebollar held family conference to explain the poor prognosis of the patient and his poor quality of life. However his extensive family pressed to do everything possible to keep him alive. Only in the end of hospitalization decides to do not resuscitate him. DISCHARGE DIAGNOSES: # Oral gingival bleeding likely due to dentures, was seen by ENT s/p endoscopy # Sepsis, resolved # Blood loss anemia due to #1, resolved # VDRF with tracheostomy # CKD, resolved # Metabolic acidosis, resolved # DILATED CARDIOMYOPATHY # HX ALCOHOL ABUSE # Multiple wounds > decub # Electrolyte imbalance, resolved # Dysphagia , GT status # Stroke and encephalopathy # Pancreatitis, s/p ERCP. resolved. Home Meds Reported Medications Cran/Vitc/Mannose/Inulin/Brom (Uti-Stat Liquid) 3,875 Mg/30 Ml Liquid, 3875 MG G TB DAILY 03/31/18 Ascorbic Acid* (Vitamin C*) 500 Mg Capsule.sa, 500 MG GTB DAILY, CAP 03/31/18 Zinc Sulfate* (Zinc Sulfate*) 220 Mg Tablet, 220 MG GTB DAILY, TAB 03/31/18 Acetaminophen* (Acetaminophen*) 650 Mg Tablet, 650 MG GTB Q4 PRN for MILD PAIN LEVEL 1-3, #30 TAB AND FEVER 03/31/18 Acetaminophen* (Acetaminophen*) 500 MG Extra Strength Tablet, 1000 MG GTB Q4 PRN for MODERATE PAIN LEVEL 4-6, TAB 03/31/18 Acetaminophen* (Acetaminophen*) 325 Mg Tablet, 650 MG GTB TRACH CHANGE PRN for PAIN, #30 TAB GIVE 30 MIN PRIOR TO CHANGE 03/31/18 Spironolactone* (Aldactone*) 25 Mg Tablet, 25 MG GTB DAILY, #30 TAB 03/31/18 Multivit/Ca Carb/B Cmplx/Fa* (Sofy-Sandoval*) 1 Tab Tab, 1 TAB GTB DAILY, TAB 03/31/18 Hydrocodone/Acetaminophen ([place] 5-325 Tablet) 1 Each Tablet, 1 EACH GTB BID, TAB 03/31/18 Midodrine* (Midodrine*) 5 Mg Tablet, 5 MG GTB BID, TAB HOLD FOR SBP ABOVE 110 03/31/18 Na Phos,M-B/Na Phos,Di-Ba (ENEMA [id number]) 133 Ml Enema, 133 ML RC EVERY TWO DAYS PRN for CONSTIPATION, ENEMA 03/31/18 Bisacodyl (Dulcolax) 10 Mg Supp.rect, 10 MG RC DAILY PRN for CONSTIPATION, SUPP.RECT 03/31/18 Carvedilol* (Carvedilol*) 25 Mg Tablet, 25 MG GTB BID, #60 TAB HOLD FOR SBP BELOW 100 OR HR BELOW 50 03/31/18 Albuterol Sulfate* (Albuterol Sulfate* Neb) 0.083%-3 Ml Neb, 2.5 MG NEB Q6 PRN for WHEEZING AND SOB, #30 VIAL 03/31/18 Albuterol Sulfate* (Albuterol Sulfate* Neb) 0.083%-3 Ml Neb, 2.5 MG NEB Q3H PRN for WHEEZING AND SOB, #30 VIAL 03/31/18 Lactobacillus Acidophilus/Pect (Acidophilus-Pectin Capsule) 1 Each Capsule, 1 EACH GTB DAILY, CAP 03/31/18 Follow-up Plan [facility] care Primary Care Provider LETITIA Klein May 24, 2018 12:46
--- NOTE | 2018-05-24 12:55 | CONS ---
Assessment/Plan Assessment/Plan Assessment/Plan (Daily) 62 male with excessively bleeding gingival tissue and severe anemia 1. Severe acute on chronic anemia likely due to blood loss from gingival bleeding -improved 3. Chronic liver disease, alcohol related 4. Mild coagulopathy 5. Elevated lipase with mildly elevated CA 19-9 -on CT scan pancreas is normal -lipid panel wnl -CBD 6mm, LFT wnl -Radiology will not do MRCP because of vent 6. Chronic kidney disease -BUN/chief i dispatcher wnl 7. Encephalopathy secondary to anoxic brain injury -acute on chronic? -Ct shows acute ischemic infarct, pt is on ASA 8. H/o duodenal ulcer 9. Complex UTI with lisa albicans, s/p diflucan -RESOLVED 10. 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 Persistent fevers -99.2 this am 12. Abnormal LFTs -liver disease -trending down 13. Acute non hemorrhagic infarcts noted on Brain CT Plan: ERCP done patient had a sphincterotomy and stone was removed. Monitor LFT and WBC Patient is stable from GI point Consultation Date/Type/Reason Admit Date/Time Mar 31, 2018 at 17:58 Initial Consult Date 04/02/18 Requesting Provider: TAMARA GRAJEDA MD Date/Time of Note DATE: 05/24/18 TIME: 12:53 24 HR Interval Summary Subjective hx not possible: pt non-verbal Exam/Review of Systems Exam Vitals Vital Signs Date Temp Pulse Resp B/P (MAP) Pulse Ox O2 O2 Flow FiO2 Time Delivery Rate 05/24/18 132 125/92 12:49 (103) 05/24/18 98.5 37 100 Trach 11:28 Collar 05/24/18 30 11:20 Intake and Output 05/23/18 05/23/18 05/24/18 1515:00 23:00 07:00 IntakeIntake Total 535 ml 550 ml OutputOutput Total 450 ml 800 ml BalanceBalance 85 ml -250 ml Eyes: nl conjunctiva, EOMI, nl lids, nl sclera, PERRL Respiratory: clear to auscultation, normal air movement Extremities: normal pulses Results Result Diagram: 05/23/1862305/23/18623 Medications Medication Current Medications Collagenase (Santyl) 1 applic DAILY TOP Last administered on 05/24/18 09:03; Admin Dose 1 APPLIC; Start 04/03/18 at 12:00 Albuterol (Proventil 0.083% (Neb)) 2.5 mg Q3H RESP THERAPY PRN NEB WHEEZING AND SOB; Start 04/30/18 at 19:00 Ascorbic Acid (Vitamin C) 500 mg DAILY GTB Last administered on 05/24/18 09:03; Admin Dose 500 MG; Start 05/04/18 at 09:30 Zinc Sulfate (Zinc Sulfate) 220 mg DAILY GTB Last administered on 05/24/18 09:03; Admin Dose 220 MG; Start 05/04/18 at 09:30 Multivit/Ca Carb/ B Cmplx/FA/Prenat (Sofy-Sandoval) 1 tab DAILY GTB Last administered on 05/24/18 09:03; Admin Dose 1 TAB; Start 05/04/18 at 09:30 Acetaminophen (Tylenol Liquid) 650 mg Q4H PRN GTB MILD PAIN(1-3)OR ELEVATED TEMP Last administered on 05/22/18 01:41; Admin Dose 650 MG; Start 05/04/18 at 09:30 Acetaminophen (Tylenol Supp) 650 mg Q6H PRN [place] temp over 101; Start 05/04/18 at 09:30 Polyethylene Glycol (Miralax) 17 gm DAILY PRN GTB constipation; Start 05/04/18 at 16:00 Hydralazine HCl (Apresoline) 5 mg Q6H PRN IV ELEVATED BLOOD PRESSURE; Start 05/04/18 at 22:30 Atorvastatin Calcium (Lipitor) 10 mg HS PO Last administered on 05/23/18 21:42; Admin Dose 10 MG; Start 05/06/18 at 21:00 Sodium Hypochlorite (Dakin'S (Dilute )) 1 applic BID IRR Last administered on 05/24/18 09:03; Admin Dose 1 APPLIC; Start 05/09/18 at 15:00 Morphine Sulfate (morphine) 5 mg Q4H PRN GTB SEVERE PAIN LEVEL 7-10 Last administered on 05/24/18 10:36; Admin Dose 5 MG; Start 05/11/18 at 14:00 Metoprolol Tartrate (Lopressor) 5 mg Q8H PRN IV HR >110 Last administered on 3/1/19at 12:50; Admin Dose 5 MG; Start 05/21/18 at 14:00 RASHEEDA MEJIA MD May 24, 2018 12:55
--- NOTE | 2018-05-24 19:32 | CONS ---
Assessment/Plan Assessment/Plan Hospital Course (Demo Recall) 1115 No acute changes overnight, afebrile, nad Indwelling: Trach PEG Schwartz. Physical examination: Chronically ill-appearing elderly man who is noncommunicative in no distress. Head atraumatic normocephalic sclera nonicteric neck is supple tracheostomy present chest rise symmetrical breath sounds diminished bases heart: S1-S2. Abdomen soft bowel sounds present. Extremities without cyanosis. Skin: Patient has multiple pressure sores he has a dry blood on the right lower lip Assessment: 1. S/p sepsis secondary to urinary tract infection and HCAP 2. S/p fevers, cant r/o malignancy given elevated CA19 and lipase==> s/p ERCP with sphincterotomy and stone removal 05/22/18 2. VDRF 3. Dysphagia 4. Chronic encephalopathy 5. History of cardiomyopathy 6. Sacral decub, s/p debridement 04/30/18 7. MRSA nares colonization 8. Elevated amylase and lipase of unclear etiology Plan: Clinically unchanged, no fevers, dc planning to SNF Consultation Date/Type/Reason Admit Date/Time Mar 31, 2018 at 17:58 Initial Consult Date 04/02/18 Type of Consult id Requesting Provider: TAMARA GRAJEDA MD Date/Time of Note DATE: 05/24/18 TIME: 19:31 Exam/Review of Systems Exam Vitals Vital Signs Date Temp Pulse Resp B/P (MAP) Pulse Ox O2 O2 Flow FiO2 Time Delivery Rate 05/24/18 94 29 100 30 13:15 05/24/18 125/92 12:49 (103) 05/24/18 98.5 Trach 11:28 Collar Intake and Output 05/23/18 05/23/18 05/24/18 1515:00 23:00 07:00 IntakeIntake Total 535 ml 550 ml OutputOutput Total 450 ml 800 ml BalanceBalance 85 ml -250 ml Results Result Diagram: 05/23/1824 05/23/1824 RENÉ GARCIA NP May 24, 2018 19:32
== END 2018-05-24 14:19 | DRG 853 ==
LOC: E/R 14:35 → TEL 17:58 → ICU 04-01 19:30 → TEL 04-04 13:20
PROVIDERS: ADMIT Internal Medicine Nephrology; ATTEND Internal Medicine Nephrology
PROC: 5A1955Z Respiratory Ventilation, Greater than 96 Consecutive Hours (ICD-10-PCS; principal; 2018-03-31)
PROC: 30233N1 Transfusion of Nonautologous Red Blood Cells into Peripheral Vein, Percutaneous Approach (ICD-10-PCS; 2018-03-31)
PROC: 0BJ08ZZ Inspection of Tracheobronchial Tree, Via Natural or Artificial Opening Endoscopic (ICD-10-PCS; 2018-04-01)
PROC: 09JK8ZZ Inspection of Nasal Mucosa and Soft Tissue, Via Natural or Artificial Opening Endoscopic (ICD-10-PCS; 2018-04-01)
PROC: 0JB70ZZ Excision of Back Subcutaneous Tissue and Fascia, Open Approach (ICD-10-PCS; 2018-04-30)
PROC: 0F7C8ZZ Dilation of Ampulla of Vater, Via Natural or Artificial Opening Endoscopic (ICD-10-PCS; 2018-04-30)
PROC: 0FC98ZZ Extirpation of Matter from Common Bile Duct, Via Natural or Artificial Opening Endoscopic (ICD-10-PCS; 2018-05-21)
PROC: BF10YZZ Fluoroscopy of Bile Ducts using Other Contrast (ICD-10-PCS; 2018-05-21)
DX: A41.9 Sepsis, unspecified organism (principal); J18.9 Pneumonia, unspecified organism; K85.90 Acute pancreatitis without necrosis or infection, unspecified; I63.9 Cerebral infarction, unspecified; G92 Toxic encephalopathy; R53.2 Functional quadriplegia; G93.1 Anoxic brain damage, not elsewhere classified; D62 Acute posthemorrhagic anemia; Z99.11 Dependence on respirator [ventilator] status; I42.0 Dilated cardiomyopathy; J96.10 Chronic respiratory failure, unspecified whether with hypoxia or hypercapnia; D68.9 Coagulation defect, unspecified; B37.49 Other urogenital candidiasis; E87.2 Acidosis; R57.9 Shock, unspecified; K80.21 Calculus of gallbladder without cholecystitis with obstruction; B95.62 Methicillin resistant Staphylococcus aureus infection as the cause of diseases classified elsewhere; D63.8 Anemia in other chronic diseases classified elsewhere; E87.8 Other disorders of electrolyte and fluid balance, not elsewhere classified; K06.8 Other specified disorders of gingiva and edentulous alveolar ridge; K70.9 Alcoholic liver disease, unspecified; K52.9 Noninfective gastroenteritis and colitis, unspecified; L89.150 Pressure ulcer of sacral region, unstageable; L08.9 Local infection of the skin and subcutaneous tissue, unspecified; N18.9 Chronic kidney disease, unspecified; R13.10 Dysphagia, unspecified; Z66 Do not resuscitate; Z93.0 Tracheostomy status; Z93.1 Gastrostomy status; Z86.73 Personal history of transient ischemic attack (TIA), and cerebral infarction without residual deficits
CPT/HCPCS: 36430; 36600; 70450; 70551; 71045; 71260; 74177; 74330; 76700; 78806; 80048; 80053; 80061; 80076; 80150; 80202; 81001; 82140; 82150; 82270; 82565; 82607; 82728; 82746; 82787; 82803; 82962; 83036; 83540; 83605; 83690; 83735; 84100; 84145; 84155; 84165; 84443; 84484; 84520; 85025; 85045; 85610; 85730; 86301; 86592; 86850; 86900; 86901; 86920; 87040; 87045; 87070; 87075; 87081; 87086; 87177; 89220; 92526; 92610; 93005; 93306; 94002; 94003; 94640; 95819; 96374; 96375; 97110; 97161; 97167; 97530; A9570; C9113; J0278; J0360; J0690; J0692; J0696; J1610; J2060; J2185; J2250; J2274; J2370; J2405; J2997; J3010; J3260; J3370; J3475; J3480; J7030; J7040; J7042; J7050; J7070; J7120; P9016; Q9967

== ENCOUNTER 2018-05-25 22:53 | Emergency (ER) | payer BC ==
[~2018-05-25] VITALS: Ht 170.2 cm; Wt 75.0 kg
[~2018-05-25 22:53] MED LIST changes: +ACET-141 GTB; +ACET-2047 GTB; +ACET325T45 GTB; +ALBU2.5V3 NEB; +ASCO500C7 GTB; +BISA10SU55 RC; +CARV25TA79 GTB; -CARV6.2579 NGT; +CRAN3875 GTB; -FLORANEX PO; -FOLI-49 PO; -FURO20TA3 PO; +HYDR-4011 GTB; +LACT1CAP4 GTB; -LOSA25TA2 PO; -METR500T PO; +MIDO5TAB GTB; -MULTI PO; +NA P133E10 RC; +NEPH GTB; -PANT40TA4 PO; +SPIR25TA GTB; -SPIR25TA PO; -THIA100T56 PO; +ZINC220T GTB
[2018-05-25 22:57] VITALS: Ht 170.2 cm; Wt 75.0 kg
[2018-05-25] MEDS ORDERED: SODIUM CHLORIDE 0.9% 1L BAG IV* STA (23:02)
[2018-05-25] MEDS ORDERED: ACETAMINOPHEN 650 MG SUPP PR STA (23:02)
[2018-05-25] MEDS ORDERED: CEFEPIME 2GM/50 ML (PMX) 50 ML IVPB STA (23:02)
--- NOTE | 2018-05-25 23:16 | ERD ---
ER Documentation Chief Complaint Chief Complaint TACHYCARDIA HR OF 150 TODAY HPI 62-year-old male with a history of anoxic brain injury, trach and vent dependent, brought in by ambulance from his group home facility for a higher heart rate. Otherwise history is limited as the patient is nonverbal at baseline. ROS Unable to obtain Medications Home Meds Reported Medications Cran/Vitc/Mannose/Inulin/Brom (Uti-Stat Liquid) 3,875 Mg/30 Ml Liquid, 3875 MG GTB DAILY 03/31/18 Ascorbic Acid* (Vitamin C*) 500 Mg Capsule.sa, 500 MG GTB DAILY, CAP 03/31/18 Zinc Sulfate* (Zinc Sulfate*) 220 Mg Tablet, 220 MG GTB DAILY, TAB 03/31/18 Acetaminophen* (Acetaminophen*) 650 Mg Tablet, 650 MG GTB Q4 PRN for MILD PAIN LEVEL 1-3, #30 TAB AND FEVER 03/31/18 Acetaminophen* (Acetaminophen*) 500 MG Extra Strength Tablet, 1000 MG GTB Q4 PRN for MODERATE PAIN LEVEL 4-6, TAB 03/31/18 Acetaminophen* (Acetaminophen*) 325 Mg Tablet, 650 MG GTB TRACH CHANGE PRN for PAIN, #30 TAB GIVE 30 MIN PRIOR TO CHANGE 03/31/18 Spironolactone* (Aldactone*) 25 Mg Tablet, 25 MG GTB DAILY, #30 TAB 03/31/18 Multivit/Ca Carb/B Cmplx/Fa* (Sofy-Sandoval*) 1 Tab Tab, 1 TAB GTB DAILY, TAB 03/31/18 Hydrocodone/Acetaminophen ([place] 5-325 Tablet) 1 Each Tablet, 1 EACH GTB BID, TAB 03/31/18 Midodrine* (Midodrine*) 5 Mg Tablet, 5 MG GTB BID, TAB HOLD FOR SBP ABOVE 110 03/31/18 Na Phos,M-B/Na Phos,Di-Ba (ENEMA JLOLK-FW-ASH) 133 Ml Enema, 133 ML RC EVERY TWO DAYS PRN for CONSTIPATION, ENEMA 03/31/18 Bisacodyl (Dulcolax) 10 Mg Supp.rect, 10 MG RC DAILY PRN for CONSTIPATION, SUPP.RECT 03/31/18 Carvedilol* (Carvedilol*) 25 Mg Tablet, 25 MG GTB BID, #60 TAB HOLD FOR SBP BELOW 100 OR HR BELOW 50 03/31/18 Albuterol Sulfate* (Albuterol Sulfate* Neb) 0.083%-3 Ml Neb, 2.5 MG NEB Q6 PRN for WHEEZING AND SOB, #30 VIAL 03/31/18 Albuterol Sulfate* (Albuterol Sulfate* Neb) 0.083%-3 Ml Neb, 2.5 MG NEB Q3H PRN for WHEEZING AND SOB, #30 VIAL 03/31/18 Lactobacillus Acidophilus/Pect (Acidophilus-Pectin Capsule) 1 Each Capsule, 1 EACH GTB DAILY, CAP 03/31/18 Allergies Allergies: Coded Allergies: No Known Allergy (Unverified , 04/30/18) PMhx/Soc History of Surgery: No Anesthesia Reaction: No Hx Neurological Disorder: Yes (Anoxic brain injury, stroke, chronic encephalopathy) Hx Respiratory Disorders: Yes (vent dependent) Hx Cardiac Disorders: Yes (Hypertension, dilated cardiomyopathy) Hx Psychiatric Problems: No (anoxic brain injury) Hx Miscellaneous Medical Probl: Yes (Pancreatitis, multiple decubitus wounds, alcohol abuse) Hx Alcohol Use: Yes Hx Substance Use: Yes Hx Tobacco Use: Yes FmHx Unable to obtain Physical Exam Vitals Vital Signs Date Temp Pulse Resp B/P (MAP) Pulse Ox O2 O2 Flow FiO2 Time Delivery Rate 05/26/18 116 23 100 50 03:10 05/26/18 103.2 116 29 110/81 99 Room Air 02:49 (91) 05/26/18 114 20 99 80 01:25 05/26/18 102.7 125 22 129/89 100 Mechanica 00:15 (102) l Ventilato r 05/25/18 104.4 23:34 05/25/18 148 31 94 100 23:00 05/25/18 104.4 150 29 107/86 22:57 (93) Physical Exam INITIAL VITAL SIGNS: Reviewed by me GENERAL: Patient is lying on gurney, no apparent distress HEAD: Normocephalic EYES: Normal conjunctiva ENT: Mucous membranes dry, no erythema or tonsillar exudates. Airway patent. NECK: Trach in place, on vent. Tracheostomy site appears clean dry and intact RESPIRATORY: Clear to auscultation bilaterally anteriorly. On vent. CV: Tachycardic with regular rhythm. No murmurs, No rubs or gallops. ABDOMEN: G-tube in place. Soft, non-distended, non-tender. No guarding. No rebound. No pulsatile mass. Bowel sounds normal. : Schwartz in place, draining clear yellow urine EXTREMITIES: No edema. No clubbing or cyanosis. Pulses symmetric. No deficits or delays. Calves non-tender. No cords. SKIN: Warm and dry. Decreased turgor. No obvious rash, petechiae or purpura. NEUROLOGIC: Awake and alert. Nonverbal. No spontaneous movement of the extremities. Eyes open Result Diagram: 05/25/18231305/25/182313 Results 24 hrs Laboratory Tests Test 05/25/18 23:14 05/26/18 01:04 05/26/18 03:08 White Blood Count 9.2 10^3/ul Red Blood Count 3.10 10^6/ul Hemoglobin 8.5 g/dl Hematocrit 27.6 % Mean Corpuscular Volume 89.0 fl Mean Corpuscular Hemoglobin 27.4 pg Mean Corpuscular Hemoglobin Concent 30.8 g/dl Red Cell Distribution Width 16.8 % Platelet Count 256 10^3/UL Mean Platelet Volume 10.1 fl Immature Granulocytes % 1.200 % Neutrophils % % Segmented Neutrophils % (Manual) 52 % Band Neutrophils % (Manual) 8 % Lymphocytes % % Lymphocytes % (Manual) 18 % Monocytes % % Monocytes % (Manual) 9 % Eosinophils % % Eosinophils % (Manual) 9 % Basophils % % Basophils % (Manual) 2 % Metamyelocytes % (manual) 2 % Nucleated Red Blood Cells % 0.2 /100WBC Immature Granulocytes # 0.110 10^3/ul Neutrophils # 10^3/ul Neutrophils # (Manual) 4.8 10^3/ul Band Neutrophils # 0.7 10^3/ul Lymphocytes (Manual) 1.6 10^3/ul Lymphocytes # 10^3/ul Monocytes # 10^3/ul Monocytes # (Manual) 0.8 10^3/ul Eosinophils # 10^3/ul Basophils # 10^3/ul Basophils # (Manual) 0.1 10^3/ul Metamyelocytes # 0.1 10^3/ul Nucleated Red Blood Cells # 10^3/ul Platelet Estimate NORMAL Polychromasia 1+ Poikilocytosis 1+ Tear Drop Cells 1+ Prothrombin Time 15.2 Sec Prothrombin Time Ratio 1.2 INR International Normalized Ratio 1.19 Activated Partial Thromboplast Time 44.2 Sec Urine Color YELLOW Urine Clarity SLIGHTLY CLOUDY Urine pH 5.0 Urine Specific Warren 1.014 Urine Ketones NEGATIVE mg/dL Urine Nitrite NEGATIVE mg/dL Urine Bilirubin NEGATIVE mg/dL Urine Urobilinogen 1+ mg/dL Urine Leukocyte Esterase TRACE Davidson/ul Urine Microscopic RBC > 182 /HPF Urine Microscopic WBC 20 /HPF Urine Bacteria FEW /HPF Urine Hemoglobin 3+ mg/dL Urine Glucose NEGATIVE mg/dL Urine Total Protein 1+ mg/dl Sodium Level 142 mmol/L Potassium Level 5.2 mmol/L Chloride Level 111 mmol/L Carbon Dioxide Level 22 mmol/L Anion Gap 9 Blood Urea Nitrogen 55 mg/dl Creatinine 1.31 mg/dl Est Glomerular Filtrat Rate mL/min 56 mL/min Glucose Level 88 mg/dl Lactic Acid Level 1.3 mmol/L 0.8 mmol/L 0.8 mmol/L Calcium Level 9.2 mg/dl Total Bilirubin 0.1 mg/dl Direct Bilirubin 0.00 mg/dl Indirect Bilirubin 0.1 mg/dl Aspartate Amino Transf (AST/SGOT) 102 IU/L Alanine Aminotransferase (ALT/SGPT) 15 IU/L Alkaline Phosphatase 288 IU/L Troponin I 0.045 ng/ml Total Protein 7.5 g/dl Albumin 2.8 g/dl Globulin 4.70 g/dl Albumin/Globulin Ratio 0.59 Current Medications Medications Dose Sig/Epi Start Time Status Last (Trade) Ordered Route PRN Stop Time Admin Dose Reason Admin Sodium 2,100 ml BOLUS OVER 2 05/25/18 DC 05/25/18 Chloride HOURS STAT 23:02 05/25/18 23:35 (NS) IV* 23:06 650 mg ONCE STAT 05/25/18 DC 05/25/18 Acetaminophen [place] 23:02 05/25/18 23:34 (Tylenol 23:07 Supp) Cefepime HCl 50 ml @ ONCE STAT 05/25/18 DC 05/25/18 100 mls/hr IVPB 23:02 05/25/18 23:34 23:31 Vancomycin 250 ml @ ONCE ONCE 05/25/18 DC 05/26/18 HCl 125 mls/hr IVPB 23:30 05/26/18 00:18 01:29 Procedures/MDM EMERGENT LABS AND DIAGNOSTIC STUDIES: Lab Results above were reviewed and interpreted by me. CBC: Evidence of chronic anemia, no leukocytosis CMP: Hyperkalemia with evidence of acute renal insufficiency with elevated BUN and Cr. No evidence of severe electrolyte abnormality, hypoglycemia, liver fa ilure, or biliary obstruction Troponin within normal limits, not indicative of cardiac ischemia Lactate within normal limits without evidence of sepsis or tissue hypoperfusion UA: Hematuria, trace leukocytes with 20 WBCs, possible infection Influenza negative 12-lead EKG was interpreted by Red Keene MD: Sinus tachycardia at 148 bpm Normal axis Normal intervals LVH Inferior upsloping ST elevations and lateral depressions with T wave inversions. Evidence of old septal infarct. Abnormal EKG, doubt STEMI Radiology Results as interpreted by Radiology below were reviewed by Omar Keene MD: Chest x-ray shows no acute abnormalities Initial Nursing notes reviewed. Previous Medical Records requested via the Electronic Health Record. EMERGENCY DEPARTMENT COURSE / MEDICAL DECISION MAKING: Patient presents with fever and tachycardia, concerning for sepsis. Sepsis workup initiated. Broad-spectrum antibiotics given. IV fluids given. Chest x- ray is consistent with pneumonia. Patient's infectious symptoms have not stabilized and the patient is at risk of rapid decompensation. The patient will be admitted for careful hydration, antibiotic therapy, and infectious source control. I spoke with the at bedside regarding the patient's condition. She states that the patient was just discharged from the hospital and at the end of his hospitalization, she had made the decision to make him DNR. I asked her if she wanted him to be given antibiotics and fluids or if she would rather him just be kept comfortable with symptom management. This was in the presence of a boiler control technician. Patient's states that she would rather the patient be kept co mfortable and does not feel that IV fluids and antibiotics are going to make a real difference in his condition. She would like us to stop antibiotics and send the patient back to his facility for comfort care only. Severe Sepsis Assessment: Infectious Source: Health care associated pneumonia End organ damage indicated by: Cut Out Operator > 2.0 Severe Sepsis Management: Blood Cultures X 2 before broad spectrum antibiotics initiated within 3 hours of recognition. 30 ml/kg NS bolus Completed Initial Lactate: normal Repeat Lactate not indicated as initial < 2.0 Critical Care: Time: 35 minutes Treatments/Evaluations: Emergent fluid management, while maintaining close respiratory support. Immediate broad spectrum antibiotic therapy. Simultaneous assessment for possible sources in order to direct therapy. Consideration for invasive and chemical support to prevent respiratory or cardiac collapse. Septic Shock Assessment (1 hour post 30 ml/kg fluid bolus): Hypotension (SBP < 90 or 40 mmHg drop, MAP < 65): No Lactic acid > 4.0 No Plan of care discussed with Dr. Rebollar and the SNF. Departure Diagnosis: Primary Impression: Sepsis Sepsis type: sepsis due to unspecified organism Qualified Codes: A41.9 - Sepsis, unspecified organism Additional Impressions: Acute on chronic renal insufficiency Chronic anemia Healthcare-associated pneumonia Condition: LESLIE Andrade MD May 25, 2018 23:16
[2018-05-25] MEDS ORDERED: VANCOMYCIN 1 GM (PMX) 250 ML IVPB ONE (23:30)
[2018-05-26] MEDS ORDERED: ACETAMINOPHEN 650 MG SUPP PR ONE (04:48)
[2018-05-26 09:01] VITALS: BP 92/66; PULSE 130; RESP 26
== END 2018-05-26 09:04 | disposition short-term general hospital (02) ==
LOC: E/R 22:53
DX: A41.9 Sepsis, unspecified organism (principal); D64.9 Anemia, unspecified; J18.9 Pneumonia, unspecified organism; I12.9 Hypertensive chronic kidney disease with stage 1 through stage 4 chronic kidney disease, or unspecified chronic kidney disease; N18.9 Chronic kidney disease, unspecified; R40.2112 Coma scale, eyes open, never, at arrival to emergency department; R40.2212 Coma scale, best verbal response, none, at arrival to emergency department; R40.2322 Coma scale, best motor response, extension, at arrival to emergency department; Z87.891 Personal history of nicotine dependence
CPT/HCPCS: 36415; 71045; 80053; 81001; 83605; 84484; 85025; 85610; 85730; 87040; 87070; 87086; 87400; 93005; 94002; 94003; 96374; 96375; J0692; J3370; J7030; Z7502; Z7610